=== PATIENT | male | born 1980 | race Caucasian/White ===

== ENCOUNTER 2022-06-14 08:15 | Outpatient (RCR) | payer BC, SELFPAY ==
--- OUTSIDE RECORDS SUMMARY | 2022-05-10 11:06 | XMS_ITS | Continuity of Care Document ---
:1980 Author Care Team Providers Name Role Phone MD Tristan Fishman Attending Physician MD Raul Cralton Primary Care Physician Chief Complaint and Reason for Visit Chief Complaint Post Op Complication Reason for Visit [id number] Allergies, Adverse Reactions, Alerts Allergen Type Severity Reaction Last Verified Status Updated Capecitabine Adverse Severe Chest February 25, Activ e Reaction pressure/car 2021 diac Social History Smoking Status Status Start Date End Date Date of Observat ion Never smoked tobacco February 25, 2022 8:41am (finding) Observation Status Observation Response Date of Response History provided by Patient September 16, 2018 5 :25pm Where do you live? Own home/apt September 16, 2018 5 :25pm With whom do you live? Spouse September 16 8 5:25pm Additional Data Assigned Sex Male Problems Active Problems Medical Problem Onset Date Status Chest pain Active Acute coronary syndrome Active Rectal adenocarcinoma 2017 Active Acute hyponatremia Active Gastroenteritis Active Hyponatremia Active Dehydration Active Postsurgical fever Active Proximal humerus fracture Active Neuroma of thoracic region Active Abdominal pain Active Medications Medication Status Dose Units Route Directions Qty Days Start End Ins tructions Date Date Acetaminophen Active 500-10 MG PO Every 6 100 NO MORE THAN (Tylenol 00 Hours as 4000 MG/ DAY Extra needed Strength) 500 Mg TAB Amlodipine Active 5 MG PO Daily Besylate Ascorbic Acid Active 500 MG PO Daily 100 (Vitamin C) 500 Mg TAB Cholecalcifer Active 5000 UNIT PO Daily 100 ol (Vitamin D) 5,000 Unit TAB Cyanocobalami Active Unknow PO n (B12) n Dose Unknown Strength CAP Fish Oil Active 1000 MG PO Daily take 2 kane ly (2000mg total) Gabapentin Active 300 MG PO Three Times 90 Novembe A Day r 2017 8:43am Hydromorphone Active 2 MG PO Q4-6H Prn 03 February Hcl 4th, (Dilaudid) 2 2020 Mg TAB 3:09pm Ibuprofen Active 600 MG PO Every 6 30 Hours as needed Lactobacillus Active 1 OR Daily (Probiotic) CAP Lorazepam Active 0.5-1 MG PO Every 4 June PRN Na usea/vomiting. Do not take at same time as sedating Hours as , medications including olanzapine. needed 2020 12:26pm Melatonin Active 10 MG PO Bedtime as 100 needed Multivitamins Active 1 TAB PO Daily 100 (Multivitamin /Minerals) TAB Olanzapine Active 5 MG PO Bedtime 09 April for ch emo nausea.Days 1-4 after chemo at bedtime. Use with Odt , caution w/ oth er sedating meds lorazepam, 2021 monae perez. 8:39am Ondansetron Active 8 MG PO Every 8 16 December Hcl (Zofran) Hours 3rd, 8 Mg TAB 2018 3:47pm Pantoprazole Active 40 MG PO Daily 30 Sodium Prochlorperaz Active 10 MG PO Three Times 16 July ine Maleate A Day as , needed 2020 12:23pm Tumeric Active 2000 MG Daily Amlodipine Disconti 5 MG PO Daily 16 May Besylate nued , (Norvasc) 5 2021 Mg TAB 8:31am Amlodipine Disconti 5 MG PO Daily February Besylate nued y , , 2021 2021 8:08am 2:08pm Amlodipine Disconti 2.5 MG PO Daily Novemberua Besylate nued 17, ry 2021 14th, 5:21pm 2021 8:08am Ascorbic Acid Disconti 500 MG PO Daily April (Vitamin C) nued , 500 Mg TAB 2019 9:02am Cholecalcifer Disconti 400 UNIT OR Daily April ol (Vitamin nued , D3) 400 Unit 2019 CAP 9:02am Cyanocobalami Disconti 1000 MCG PO Daily June n (Vitamin B nued , 12) 1,000 Mcg 2019 TAB 2:45pm Doxycycline Disconti 100 MG PO Twice Daily November ust Hyclate nued For 14 Days , , 2020 2020 3:33pm 1:26pm Doxycycline Disconti 100 MG PO Twice Daily November uar Hyclate nued For 14 Days , y 2020 11, 3:32pm 2020 3:33pm Doxycycline Disconti 100 MG PO Twice Daily r Hyclate nued For 14 Days y 2020 3:32pm Gabapentin Disconti 300 MG PO Three Times 90 Novemb nued A Day er 2017 8:43am Hydrocortison Disconti 1 % EX As Directed April ust Apply 2-3 times per day if needed to face. May mix with e (Topical) nued , , vanicrea m to prevent drying. (Hydrocortiso 2019 2020 ne) 1 % CRE 1:11pm 1:26pm Hydromorphone Disconti 2 MG PO Q4-6H Prn February Hcl nued , , (Dilaudid) 2 2021 2021 Mg TAB 11:10am 2:54pm Hydromorphone Disconti 2 MG PO Every 4 20 Novemapril Hcl nued Hours as r , , needed 2017 2019 11:27am 9:02am Hydromorphone Disconti 2 MG PO Every 4 Novemb Hcl nued Hours as er needed 2017 11:27a m Hydroxyzine Disconti 25 MG PO Every 6 60 November I f needed for itching/anxiety. May take 50mg at bedtime. Hcl nued Hours as , , May cause d rowsiness.Caution when taking with other (Hydroxyzine needed 2020 2021 sedati ng meds. Hydrochloride 9:19am 2:08pm ) 25 Mg TAB Hydroxyzine Disconti 25 MG PO Every 4-6 June If needed for itching or anxiety. May cause drowsiness. Hcl nued Hours as , y Caution whe n taking with other sedating meds. (Hydroxyzine needed 2019, Hydrochloride 4:17pm 2020 ) 25 Mg TAB 9:19am Hydroxyzine Disconti 25 MG PO Every 4-6 60 April If needed for itching or anxiety. May cause drowsiness. Hcl nued Hours as , 4th, Caution whe n taking with other sedating meds. (Hydroxyzine needed 2019 2019 Hydrochloride 1:11pm 4:17pm ) 25 Mg TAB Ibuprofen Disconti 600 MG PO Every 6 30 Octobe nued Hours as r needed 2017 6:55pm Loperamide Disconti 2-4 MG PO Twice A Day 100 Novemapril 4 mg every Hcl (Imodium) nued r , morn ing and 2 Mg CAP 2017 2019 either 2 or 4 8:43am 9:02am mg in the evening. Loperamide Disconti 2-4 MG PO Twice A Day 200 Decembapril MAX 16 MG/DAY Hcl nued as needed r , 2017 10:54am 9:02am Loperamide Disconti 2-4 MG PO Twice A Day 100 Novembe Nove mb 4 mg every Hcl (Imodium) nued r , er morni ng and 2 Mg CAP 2017, either 2 or 4 11:27am 2018 mg in the 8:43am evening. Loperamide Disconti 2 MG PO As Needed Octobe Hcl (Imodium) nued r 2 Mg CAP 2017 6:55pm Lorazepam Disconti 0.5-1 MG PO Every 4 50 June PRN nued Hours as , 16, Nausea/vomi ti needed 2019 2020 ng 4:22pm 12:23p m Lorazepam Disconti 0.5-1 MG PO Every 4 June PRN nued Hours as , Nausea/vomi ti needed 2019 ng 4:17pm Magic Disconti 5 ML PO Four Times 240 April SWISH AND SPIT Mouthwash nued Daily as , , MARCH COM POUND IF FIRST PRODUCT NOT COVERED (Lidocaine/Be needed 2019 2021 nadryl/Maalox 3:44pm 2:54pm ) (First-Mouthw prema Blm) Blm ESTEFANIA Marijuana Disconti As Needed June nued 2020 1:26pm Multivitamins Disconti 1 TAB PO Daily 100 Novemb (Multivitamin nued er /Minerals) 2017 11:17a m Naproxen Disconti 220 MG PO Twice A Day Novemb Sodium nued as needed er (Aleve) 220 2nd, Mg TAB 2017 11:27a m Naproxen Disconti 220 MG PO Twice A Day Octobe Sodium nued r (Aleve) 220 15th, Mg TAB 2018 6:55pm Nitroglycerin Disconti 0.4 MG SL Once WA N CHEST (Nitrostat) nued er PAIN 0.4 Mg SUB 2017 11:27a m Olanzapine Disconti 5 MG PO Bedtime March r chemo nausea.Days 1-4 after chemo at bedtime. Use with Odt nued r , , caution w/ o ther sedating meds lorazepam, 2020 2021 hydroxyzine, m elatonin. 2:11pm 8:39am Olanzapine Disconti 5 MG PO Bedtime June r chemo nausea.Days 1-4 after chemo at bedtime. Use with Odt nued , er caution w/ oth er sedating meds lorazepam, 2020, hydroxyzine, m elatonin. 1:37pm 2020 2:11pm Olanzapine Disconti 5 MG PO Bedtime January for chemo nausea.Days 1-4 after chemo at bedtime. Use with Odt nued , caution w/ oth er sedating meds lorazepam, 2020 2020 hydroxyzine, m elatonin. 6:51pm 1:37pm Olanzapine Disconti 5 MG PO Bedtime 4 January fo r chemo nausea.Days 1-4 after chemo at bedtime. Use with Odt nued y , , caution w/ o ther sedating meds lorazepam, 2020 2020 hydroxyzine, m elatonin. 3:21pm 6:51pm Olanzapine Disconti 5 MG PO Bedtime 3 June r chemo nausea. Take day 2,3,4 after chemo. Use with Odt nued , caution w/ oth er sedating meds, i.e. lorazepam, 2019, hydroxyzine, m elatonin. 1:05pm 2020 3:21pm Icssm-6-Jpsg Disconti 500 MG PO Daily April Ethyl Esters nued , (Fish Oil) 2019 500 Mg CAP 9:02am Omeprazole Disconti 40 MG PO Daily May nued , 2017 10:01am 12:09p m Ondansetron Disconti 8 MG PO Every 8 30 Januar Hcl (Zofran) nued Hours y 3rd, 8 Mg TAB 2019 3:47pm Ondansetron Disconti 8 MG PO Every 8 30 Novem Novemb Hcl nued Hours as r , er needed 2017, 11:53am 2018 8:04am Oxycodone Hcl Disconti 5-10 MG PO Every 4 30 Octobe nued Hours as r needed 2017 6:55pm Prochlorperaz Disconti 10 MG PO Every 4-6 February PRN ine Maleate nued Hours as , , Nause a/vomiti needed 2021 2021 ng 11:10am 2:54pm Prochlorperaz Disconti 10 MG PO Every 4-6 30 Octob e PRN ine Maleate nued Hours as r Nause a/vomiti needed , ng 2017 6:55pm Ranitidine Disconti 300 MG PO Bedtime 16 May Hcl nued 2019 9:02am Ranitidine Disconti 300 MG PO Bedtime as August b Hcl nued needed , er 2018 , 9:48am 2017 11:17a m Valacyclovir Disconti 1 GM PO Three Times May Hcl nued A Day , 2019 9:59am 8:20am Relevant Diagnostic Tests and/or Laboratory Data Laboratory Results Test Date/Time Result Interpretation Reference Result Comment Performing Range Site White Blood May 03, 2.94 5.00-10.00 [facility] Count [address] [facility] 8:40am [facility] [address] Red Blood May 03, 4.89 4.32-5.72 [facility] Count [address] [facility] 8:40am [facility] [address] Hemoglobin May 03, 14.0 13.5-17.5 [facility] [address] [facility] 8:40am [facility] [address] Hematocrit May 03, 41.5 38.8-50.0 [facility] [address] [facility] 8:40am [facility] [address] Mean May 03, 85 81-95 [facility] Corpuscular 2021 [address] [facility] Volume 8:40am [facility] [address] Mean May 03, 29 27-34 [facility] Corpuscular 2021 [address] [facility] Hemoglobin 8:40am [facility] [place] [address] Mean May 03, 34 32-36 [facility] Corpuscular 2021 [address] [facility] Hemoglobin 8:40am [place] [address] Concent Platelet Count May 03, 156 150-450 [facility] [address] [facility] 8:40am [place] [address] RDW May 03, 15.0 11.5-15.3 [facility] Coefficient of [address] [facility] Variation 8:40am [place] [address] Neutrophils May 03, 60.2 50.0-70.0 [facility] (%) (Auto) 2021 [address] [facility] 8:40am [facility] [address] Lymphocytes May 03, 22.8 25.0-45.0 [facility] (%) (Auto) 2021 [address] [facility] 8:40am [facility] [address] Monocytes (%) May 03, 12.9 0.00-11.0 [facility] Lab (Auto) [address] [facility] 8:40am [place] [address] Eosinophils May 03, 3.1 0.0-7.0 [facility] (%) (Auto) 2021 [address] [facility] 8:40am [place] [address] Basophils (%) May 03, 0.7 0.0-3.0 [facility] Lab (Auto) [address] [facility] 8:40am [place] [address] Immature May 03, 0.3 [facility] Granulocyte % [address] [facility] (Auto) 8:40am [facility] [address] Neutrophils # May 03, 1.77 1.70-7.00 [facility] Lab (Auto) [address] [facility] 8:40am [place] [address] Lymphocytes # May 03, 0.67 0.90-2.90 [facility] Lab (Auto) [address] [facility] 8:40am [place] [address] Monocytes # May 03, 0.38 0.30-0.90 [facility] (Auto) [address] [facility] 8:40am [place] [address] Eosinophils # May 03, 0.09 0.00-0.50 [facility] (Auto) [address] [facility] 8:40am [place] [address] Basophils # May 03, 0.02 0.00-0.20 [facility] (Auto) [address] [facility] 8:40am [place] [address] Immature May 03, 0.01 [facility] Granulocyte # [address] [facility] (Auto) 8:40am [facility] [address] Random Glucose May 03, 98 60-115 [facility] [address] [facility] 8:40am [place] [address] Blood Urea May 03, 16 5-24 [facility] Nitrogen [address] [facility] 8:40am [facility] [address] Creatinine May 03, 0.8 0.5-1.5 [facility] [address] [facility] 8:40am [place] [address] Estimated May 03, 122.934 [facility] Creatinine 2021 [address] [facility] Clearance 8:40am [facility] [address] Sodium Level May 03, 137 135-149 [facility] [address] [facility] 8:40am [facility] [address] Potassium May 03, 4.0 3.6-5.1 [facility] Level [address] [facility] 8:40am [facility] [address] Chloride Level May 03, 102 96-114 [facility] [address] [facility] 8:40am [facility] [address] Carbon Dioxide May 03, 27 20-32 [facility] Level [address] [facility] 8:40am [facility] [address] Calcium Level May 03, 9.4 8.4-10.6 [facility] [address] [facility] 8:40am [facility] [address] Total Protein May 03, 6.6 6.0-8.3 The use of [facility] 2021 Eltrombopag, a [address] [facility] 8:40am bone [place] [address] stimulant used to treat thrombocytopenia and aplastic anemia, interferes with this measurement of total protein. A 5% bias has been observed. Albumin May 03, 4.2 3.3-5.0 [facility] [address] [facility] 8:40am [facility] [address] Total May 03, 0.5 0.1-1.5 [facility] Bilirubin [address] [facility] 8:40am [facility] [address] Aspartate May 03, 41 12-35 [facility] Amino Transf [address] (AST/SGOT) 8:40am [facility] [address] Alanine May 03, 54 4-50 [facility] Aminotransfera [address] [facility] se (ALT/SGPT) 8:40am [place] [address] Alkaline May 03, 106 40-150 [facility] Phosphatase [address] 8:40am [facility] [address] Carcinoembryon May 03, 5.8 <=3.8 INTERPRETIVE A [facility] [employer] ic Antigen 2021 INFORMATION: [address] [facility] 8:40am Carcinoembryonic [facility] [address] AntigenThe Antoine CEA electrochemilumi nescent immunoassay was used.Results obtained with different test methods or kits cannot beused interchangeably. Measurement of CEA has been shown to beclinically relevant in the management of patients withcolorectal, breast, lung, prostatic, pancreatic, and ovariancarcinoma s. Smokers may have slightly elevated levels of CEA.The CEA assay value, regardless of level, should not beinterpreted as evidence for the presence or absence of malignantdisease and is not recommended for use as a screening procedureto detect the presence of cancer in the general population.Perfo rmed By: [employer] [place] [address] [id number] Director: Summer Hodges MD Advance Directives Advance Directive Response Recorded Date/Time Has patient completed a No February 25, 2022 8:41am Health Care Directive? Insurance Providers Guarantor Yesenia Tabares Address [address] [place] [address] Contact Info. Home Phone: CELL Payer Policy Id Coverage Id Subscriber's Subscriber Id Effective E xpiration Name Date Date Blue [id number] Yesenia Tabares [facility] [id number] Encounters Encounter Location(s) Arrival/Admit Date Discharge/Depart Date Provider(s) Registered [place] May 06, 2022 [facility] 7:11am Functional Status Observation Response Date Recorded Functional Status Independent September 18, 2018 1 2:09pm Mental Status Observation Response Date Recorded Cognitive Status Alert September 18, 2018 1 2:09pm Oriented September 18, 2018 1 2:09pm Plan of Treatment Future Tests Future scheduled test information is unavailable Pending Tests Pending diagnostic test information is unavailable Future Visits Future appointment information is unavailable Referrals to Other Providers Reason for Referral Start Provider Provider Contact Provider Address Referral Date Information Afsaneh Carlton Work Phone: JORDAN Bonds [facility]WE[facility] SHYAM PABLO [address] [place] [address] [phone] Future Procedures Future procedure information is unavailable Future Medications Future medication information is unavailable Patient Instructions See Additional Instructions Arm Fracture in Adults (ED) Hyponatremia (DC)
[2022-05-21 10:41] VITALS: BP 139/89; PULSE 120; RESP 16; TEMP 36.6; O2SAT 95
[2022-05-21 11:03] LABS: Basophils Percent Auto 1.1 % (0.0-3.0); Eosinophils Percent Auto 2.5 % (0.0-7.0); Hematocrit 42.6 % (37.0-53.0); Hemoglobin* 14.2 gm/dL (13.5-17.5); Lymphocytes Percent Auto 23.3 % (20-44); Mean Corpuscular HGB Conc 33 gm/dL (32-36); Mean Corpuscular Hemoglobin 28 pg (26-34); Mean Corpuscular Volume 85 fL (80-100); Monocytes Percent Auto 14.5 % (0.0-11.0); Neutrophils Percent Auto 58.6 % (42.0-72.0); Platelet Count* 143 K/uL (140-440); RDW Coefficient of Variation % 15.4 % (11.5-15.5); White Blood Count* 2.83 K/uL (4.50-11.00)
[2022-05-21 11:16] LABS: Albumin* 4.1 g/dL (3.3-5.0); Chloride* 106 mmol/L (96-114); Sodium* 138 mmol/L (135-149)
[2022-05-21 11:17] LABS: Potassium* 3.7 mmol/L (3.6-5.1)
[2022-05-21 11:19] LABS: Alkaline Phosphatase* 116 U/L (40-150); Aspartate Amino Transferase* 42 U/L (12-35); Bilirubin Total* 0.6 mg/dL (0.1-1.5); Carbon Dioxide* 27 mmol/L (20-32); Creatinine* 0.7 mg/dL (0.5-1.5); Estimated Glomerular Filt Rate 117.25; Total Protein* 6.4 g/dL (6.0-8.3)
[2022-05-21 11:20] LABS: Alanine Aminotransferase* 46 U/L (4-50); Blood Urea Nitrogen* 14 mg/dL (5-24); Calcium* 8.7 mg/dL (8.4-10.6); Glucose* 130 mg/dL (60-115)
[2022-05-21 11:35] VITALS: PULSE 105
[2022-05-21 13:47] LABS: Appearance Urine Clear (Clear); Bilirubin Urine Negative (Negative); Blood Urine Negative (Negative); Color Urine Yellow (Yellow); Glucose Urine Negative (Negative); Ketones Urine Negative (Negative); Leukocyte Esterase Urine Negative (Negative); Nitrite Urine Negative (Negative); Protein Urine Negative (Negative); Specific Gravity Urine 1.015 (1.000-1.030); Urobilinogen Urine 0.2 (0.2-1.0)
[2022-05-21] MEDS: FOSAPREPITANT 150 MG inj 150 MG in 0.9 % SODIUM CHLORIDE 250 ml 250 ML 510 MG IVPB (14:00)
[2022-05-21] MEDS: PALONOSETRON 0.25 MG/5 ML inj IV (14:00)
[2022-05-21] MEDS: dexAMETHasone 10 MG in 0.9 % SODIUM CHLORIDE 100 ml 100 ML 404 MG IVPB (14:28)
[2022-05-21 14:57] LABS: Slide Review Reflex No
[2022-05-21] MEDS: 0.9 % SODIUM CHLORIDE 250 ml IV (16:28)
[2022-05-21] MEDS: SODIUM CHLORIDE 0.9 % (FLUSH) 10 ML SYRINGE IVF (16:28)
[2022-05-21] MEDS: HEPARIN 500 UNIT/5 ML SYRINGE IVF (16:28)
--- NOTE | 2022-05-27 11:42 | ONC.NURNOTE ---
Authorization: User: Agatha Estes Date: 09/04/21 13:06 Type: Eligibility Determination Note... Request received from [facility] for prior authorization of Irinotecan [id number], Bevacizumab J9035, Aloxi J2469 and Emend J1453). Patient carries [facility] as primary insurance. Per Availity no prior authorization is required for Irinotecan, Bevacizumab,Aloxi and emend. Services are based on medical necessity. Ref #[id number]
--- NOTE | 2022-05-28 09:47 | ONC.NURNOTE ---
Dr. Fishman reviewed note asking about urine dipstick on patient since he is on Avastin and noted that dipstick not needed on this patient at all with treatment.
[2022-06-03 08:52] LABS: Basophils Percent Auto 0.6 % (0.0-3.0); Eosinophils Percent Auto 2.3 % (0.0-7.0); Hematocrit 40.3 % (37.0-53.0); Hemoglobin* 13.7 gm/dL (13.5-17.5); Immature Granulocytes Abs Auto 0.01 K/uL (0.00-0.30); Lymphocytes Percent Auto 17.3 % (20-44); Mean Corpuscular HGB Conc 34 gm/dL (32-36); Mean Corpuscular Hemoglobin 29 pg (26-34); Mean Corpuscular Volume 85 fL (80-100); Monocytes Percent Auto 11.4 % (0.0-11.0); Neutrophils Percent Auto 68.1 % (42.0-72.0); Platelet Count* 153 K/uL (140-440); RDW Coefficient of Variation % 15.7 % (11.5-15.5); Red Blood Count 4.73 m/uL (4.30-5.90); White Blood Count* 3.42 K/uL (4.50-11.00)
[2022-06-03 09:01] LABS: Slide Review Reflex No
--- NOTE | 2022-06-03 09:03 | ONC.NURNOTE ---
Per Dr. Fishman patient does not need urine dipstick for protein even if on Avastin
[2022-06-03 09:07] LABS: Chloride* 107 mmol/L (96-114); Sodium* 136 mmol/L (135-149)
[2022-06-03 09:08] LABS: Potassium* 3.7 mmol/L (3.6-5.1)
[2022-06-03 09:10] LABS: Alanine Aminotransferase* 43 U/L (4-50); Alkaline Phosphatase* 116 U/L (40-150); Aspartate Amino Transferase* 33 U/L (12-35); Bilirubin Total* 0.6 mg/dL (0.1-1.5); Blood Urea Nitrogen* 16 mg/dL (5-24); Carbon Dioxide* 24 mmol/L (20-32); Creatinine* 0.8 mg/dL (0.5-1.5); Est. Creatinine Clearance* 121.67; Estimated Glomerular Filt Rate 112 ml/min; Glucose* 129 mg/dL (60-115); Total Protein* 6.2 g/dL (6.0-8.3)
[2022-06-03 09:11] LABS: Calcium* 8.6 mg/dL (8.4-10.6)
[2022-06-03] MEDS: PALONOSETRON 0.25 MG/5 ML inj IV (10:39)
[2022-06-03] MEDS: dexAMETHasone 10 MG in 0.9 % SODIUM CHLORIDE 100 ml 100 ML 404 MG IVPB (10:39)
[2022-06-03] MEDS: FOSAPREPITANT 150 MG inj 150 MG in 0.9 % SODIUM CHLORIDE 250 ml 250 ML 510 MG IVPB (10:58)
[2022-06-03] MEDS: HEPARIN 500 UNIT/5 ML SYRINGE IVF (13:17)
[2022-06-03] MEDS: SODIUM CHLORIDE 0.9 % (FLUSH) 10 ML SYRINGE IVF (13:17)
[2022-06-14 08:51] LABS: Basophils Percent Auto 0.3 % (0.0-3.0); Eosinophils Percent Auto 2.4 % (0.0-7.0); Hematocrit 41.2 % (37.0-53.0); Hemoglobin* 13.7 gm/dL (13.5-17.5); Immature Granulocytes Abs Auto 0.01 K/uL (0.00-0.30); Lymphocytes Percent Auto 19.5 % (20-44); Mean Corpuscular HGB Conc 33 gm/dL (32-36); Mean Corpuscular Hemoglobin 29 pg (26-34); Mean Corpuscular Volume 86 fL (80-100); Monocytes Percent Auto 17.4 % (0.0-11.0); Neutrophils Percent Auto 60.1 % (42.0-72.0); Platelet Count* 166 K/uL (140-440); RDW Coefficient of Variation % 15.8 % (11.5-15.5); Red Blood Count 4.77 m/uL (4.30-5.90); White Blood Count* 2.87 K/uL (4.50-11.00)
[2022-06-14 09:04] LABS: Chloride* 106 mmol/L (96-114); Sodium* 138 mmol/L (135-149)
[2022-06-14 09:06] LABS: Slide Review Reflex No
[2022-06-14 09:07] LABS: Alanine Aminotransferase* 41 U/L (4-50); Alkaline Phosphatase* 117 U/L (40-150); Aspartate Amino Transferase* 32 U/L (12-35); Bilirubin Total* 0.5 mg/dL (0.1-1.5); Blood Urea Nitrogen* 19 mg/dL (5-24); Calcium* 8.8 mg/dL (8.4-10.6); Carbon Dioxide* 25 mmol/L (20-32); Creatinine* 0.8 mg/dL (0.5-1.5); Est. Creatinine Clearance* 121.67; Estimated Glomerular Filt Rate 112 ml/min; Glucose* 98 mg/dL (60-115); Total Protein* 6.9 g/dL (6.0-8.3)
== END 2022-06-16 23:59 | disposition home or self-care (01) ==
LOC: CCIC 08:15
PROVIDERS: PCP Family Medicine; Visit Provider Clinical Nurse Specialist
DX: C20 Malignant neoplasm of rectum (principal)
CPT/HCPCS: 36415; 36591; 80053; 81003; 82378; 85025; 96376; 96413; 96415; 96417; 99199; 99212; 99215; J0461; J1100; J1453; J1642; J2469; J7050; J7120; J9035; J9206

== ENCOUNTER 2022-12-02 10:16 | Outpatient (CLI) | payer BC, SELFPAY ==
--- NOTE | 2022-12-02 10:15 | CRLHL7_ITS ---
For Patients: As a result of the Century Cures Act, medical imaging exams and procedure reports are released immediately into your electronic medical record. You may view this report before your referring provider. If you have questions, please contact your health care provider. Indication: Assess for fracture with emphasis on the right great toe Technique: A total of three views of the right foot were acquired. Comparison: None Findings: Bones: Alignment is normal. No fractures or bone lesions. Joint spaces: Unremarkable. Soft tissues: Unremarkable. Impression: No acute fracture, dislocation or destructive process. No specific abnormality identified regarding the right 1st toe Dictated by Augusto Haro MD @ 12/02/2022 11:03:04 AM (Electronically Signed)
== END 2022-12-02 10:17 | disposition home or self-care (01) ==
LOC: RAD 10:16
PROVIDERS: PCP Family Medicine; Visit Provider Clinical Nurse Specialist
DX: M79.671 Pain in right foot (principal)
CPT/HCPCS: 73630

== ENCOUNTER 2022-12-12 09:30 | Outpatient (RCR) | payer BC, SELFPAY ==
[2022-06-17 08:19] VITALS: BP 145/95; PULSE 111; RESP 16; TEMP 36.4; O2SAT 97
[2022-06-17] MEDS: 0.9 % SODIUM CHLORIDE 250 ml IV (10:00)
[2022-06-17] MEDS: dexAMETHasone 10 MG in 0.9 % SODIUM CHLORIDE 100 ml 100 ML 404 MG IVPB (10:10)
[2022-06-17] MEDS: PALONOSETRON 0.25 MG/5 ML inj IV (10:12)
[2022-06-17] MEDS: FOSAPREPITANT 150 MG inj 150 MG in 0.9 % SODIUM CHLORIDE 250 ml 250 ML 510 MG IVPB (10:33)
[2022-06-17] MEDS: HEPARIN 500 UNIT/5 ML SYRINGE IVF (13:02)
[2022-06-17] MEDS: SODIUM CHLORIDE 0.9 % (FLUSH) 10 ML SYRINGE IVF (13:03)
--- NOTE | 2022-06-18 10:13 | ONC.NURNOTE ---
Per Luis this is his last chemo treatment of this cycle he has upcoming appts in [place] for imaging and follow up with Dr Fishman in the next 2 weeks
--- NOTE | 2022-06-18 10:14 | ONC.NURNOTE ---
Per BP monitoring yesterday discussion with Luis about his hypertension and risks with Avastin he has started Norvasc, with a recent dose increase to 5 mg/day Luis was informed that he will need to contact PCP about possible dose adjustments to better manage HTN info given on integrative approaches or relaxation breathing and pain interventions aromatherapy patch for calming given patient was engaged in relaxation music during his infusion
[2022-06-18 11:48] LABS: Carcinoembryonic Antigen 6.7 ng/mL (<=3.8)
--- NOTE | 2022-08-08 13:30 | URNOTE ---
Received request for Prior Authorization for Bevacizumab ([id number]), Fosaprepitant (J1453), Palonosetron (J2469), Irinotecan (J9206). Per Availity No Prior Authorization is required Ref# [id number].
--- NOTE | 2022-08-09 11:00 | ONC.PROVNOTE ---
[facility] Provider Note Clinic Note Narrative: Resuming Treatment Regimen: Avastin plus Irinotecan Mr. Tabares follows at our clinic with [facility] and was seen via teleheath visit 08/06/22 at [facility] by Dr. Giorgio Fishman for medical management of metastatic rectal carcinoma. Per Dr. Fishman, most recent PET CT impression for 1) overall progression with multiple new FDG avid metastatic bilateral pulmonary nodules as well as mediastinal, hilar, upper abdominal and retroperitoneal eduar metastases, 2) partial metabolic response of the radiated right 5th rib metastasis, and 3) no residual abnormal uptake post ablation of hepatic metastasis. After indepth discussion regarding goals of care, treatment versus treatment holiday, resuming current treatment regimen of avastin and irinotecan, versus switching to lonsurf plus avastin it was decided to resume treatment with avastin and irinotecan. Per Dr. Fishman's request, I have entered 4 additional cycles of avastin and irinotecan q 14 days, confirming doses and timing. Mr. Tabares will have lab work on 08/16/22, and treatment on 08/19/22. Mr. Tabares will see Dr. Fishman in follow up on 08/26/22.
[2022-08-16 08:28] LABS: Basophils Percent Auto 0.5 % (0.0-3.0); Eosinophils Percent Auto 4.4 % (0.0-7.0); Hemoglobin* 15.4 gm/dL (13.5-17.5); Lymphocytes Percent Auto 18.2 % (20-44); Mean Corpuscular HGB Conc 34 gm/dL (32-36); Mean Corpuscular Hemoglobin 29 pg (26-34); Mean Corpuscular Volume 87 fL (80-100); Monocytes Percent Auto 11.5 % (0.0-11.0); Neutrophils Percent Auto 65.4 % (42.0-72.0); Platelet Count* 158 K/uL (140-440); RDW Coefficient of Variation % 13.5 % (11.5-15.5); Red Blood Count 5.31 m/uL (4.30-5.90); White Blood Count* 4.07 K/uL (4.50-11.00)
[2022-08-16 08:29] LABS: Slide Review Reflex No
[2022-08-16 08:40] LABS: Albumin* 4.7 g/dL (3.3-5.0)
[2022-08-16 08:41] LABS: Chloride* 101 mmol/L (96-114); Potassium* 4.1 mmol/L (3.6-5.1); Sodium* 136 mmol/L (135-149)
[2022-08-16 08:43] LABS: Aspartate Amino Transferase* 31 U/L (12-35); Bilirubin Total* 0.8 mg/dL (0.1-1.5); Carbon Dioxide* 27 mmol/L (20-32); Estimated Glomerular Filt Rate 95 ml/min; Total Protein* 7.4 g/dL (6.0-8.3)
[2022-08-16 08:44] LABS: Alanine Aminotransferase* 33 U/L (4-50); Alkaline Phosphatase* 94 U/L (40-150); Blood Urea Nitrogen* 15 mg/dL (5-24); Calcium* 9.6 mg/dL (8.4-10.6); Glucose* 127 mg/dL (60-115)
[2022-08-16] MEDS: HEPARIN 500 UNIT/5 ML SYRINGE IVF (14:37)
[2022-08-16] MEDS: SODIUM CHLORIDE 0.9 % (FLUSH) 10 ML SYRINGE IVF (15:41)
[2022-08-19 08:25] VITALS: BP 140/93; PULSE 116; RESP 16; TEMP 35.9; O2SAT 96
[2022-08-19] MEDS: dexAMETHasone 10 MG in 0.9 % SODIUM CHLORIDE 100 ml 100 ML 404 MG IVPB (09:07)
[2022-08-19] MEDS: PALONOSETRON 0.25 MG/5 ML inj IV (09:07)
[2022-08-19] MEDS: FOSAPREPITANT 150 MG inj 150 MG in 0.9 % SODIUM CHLORIDE 250 ml 250 ML 510 MG IVPB (09:26)
--- NOTE | 2022-08-19 11:09 | ONC.NURNOTE ---
ok to treat without getting a urine protein. per Celine Chappell APRN and previous notes.
[2022-08-19] MEDS: 0.9 % SODIUM CHLORIDE 250 ml IV (15:55)
[2022-08-19] MEDS: HEPARIN 500 UNIT/5 ML SYRINGE IVF (15:55)
[2022-08-19] MEDS: SODIUM CHLORIDE 0.9 % (FLUSH) 10 ML SYRINGE IVF (15:55)
[2022-08-30 13:54] LABS: Basophils Percent Auto 0.5 % (0.0-3.0); Eosinophils Percent Auto 4.9 % (0.0-7.0); Hemoglobin* 14.4 gm/dL (13.5-17.5); Lymphocytes Percent Auto 24.7 % (20-44); Mean Corpuscular HGB Conc 34 gm/dL (32-36); Mean Corpuscular Hemoglobin 29 pg (26-34); Mean Corpuscular Volume 87 fL (80-100); Monocytes Percent Auto 12.5 % (0.0-11.0); Neutrophils Percent Auto 57.4 % (42.0-72.0); Platelet Count* 157 K/uL (140-440); RDW Coefficient of Variation % 13.8 % (11.5-15.5); Red Blood Count 4.96 m/uL (4.30-5.90); White Blood Count* 3.85 K/uL (4.50-11.00)
[2022-08-30 14:16] LABS: Slide Review Reflex No
[2022-08-30 14:37] LABS: Albumin* 4.4 g/dL (3.3-5.0); Chloride* 100 mmol/L (96-114); Potassium* 4.4 mmol/L (3.6-5.1); Sodium* 138 mmol/L (135-149)
[2022-08-30 14:40] LABS: Alanine Aminotransferase* 37 U/L (4-50); Alkaline Phosphatase* 105 U/L (40-150); Aspartate Amino Transferase* 31 U/L (12-35); Bilirubin Total* 0.5 mg/dL (0.1-1.5); Blood Urea Nitrogen* 14 mg/dL (5-24); Carbon Dioxide* 28 mmol/L (20-32); Creatinine* 0.9 mg/dL (0.5-1.5); Estimated Glomerular Filt Rate 108 ml/min; Glucose* 105 mg/dL (60-115)
[2022-08-30 14:41] LABS: Calcium* 9.5 mg/dL (8.4-10.6)
[2022-08-31 19:54] LABS: Carcinoembryonic Antigen 12.6 ng/mL (<=3.8)
[2022-09-02] MEDS: 0.9 % SODIUM CHLORIDE 250 ml IV (09:29)
[2022-09-02] MEDS: SODIUM CHLORIDE 0.9 % (FLUSH) 10 ML SYRINGE IVF (09:45)
[2022-09-02] MEDS: dexAMETHasone 10 MG in 0.9 % SODIUM CHLORIDE 100 ml 100 ML 404 MG IVPB (09:46)
[2022-09-02] MEDS: PALONOSETRON 0.25 MG/5 ML inj IV (09:47)
[2022-09-02] MEDS: FOSAPREPITANT 150 MG inj 150 MG in 0.9 % SODIUM CHLORIDE 250 ml 250 ML 510 MG IVPB (10:08)
[2022-09-13 08:42] LABS: Basophils Percent Auto 0.7 % (0.0-3.0); Eosinophils Percent Auto 5.4 % (0.0-7.0); Hematocrit 42.3 % (37.0-53.0); Hemoglobin* 14.3 gm/dL (13.5-17.5); Immature Granulocytes Abs Auto 0.01 K/uL (0.00-0.30); Lymphocytes Percent Auto 20.7 % (20-44); Mean Corpuscular HGB Conc 34 gm/dL (32-36); Mean Corpuscular Hemoglobin 29 pg (26-34); Mean Corpuscular Volume 85 fL (80-100); Monocytes Percent Auto 13.4 % (0.0-11.0); Neutrophils Percent Auto 59.5 % (42.0-72.0); Platelet Count* 163 K/uL (140-440); RDW Coefficient of Variation % 13.9 % (11.5-15.5); Red Blood Count 4.99 m/uL (4.30-5.90); White Blood Count* 2.99 K/uL (4.50-11.00)
[2022-09-13 08:51] LABS: Slide Review Reflex No
[2022-09-13 08:54] LABS: Albumin* 4.4 g/dL (3.3-5.0); Chloride* 102 mmol/L (96-114); Potassium* 4.2 mmol/L (3.6-5.1); Sodium* 139 mmol/L (135-149)
[2022-09-13 08:56] LABS: Creatinine* 0.9 mg/dL (0.5-1.5); Estimated Glomerular Filt Rate 108 ml/min
[2022-09-13 08:57] LABS: Alanine Aminotransferase* 49 U/L (4-50); Alkaline Phosphatase* 119 U/L (40-150); Aspartate Amino Transferase* 33 U/L (12-35); Bilirubin Total* 0.4 mg/dL (0.1-1.5); Blood Urea Nitrogen* 15 mg/dL (5-24); Carbon Dioxide* 27 mmol/L (20-32); Glucose* 97 mg/dL (60-115)
[2022-09-13 08:58] LABS: Calcium* 9.2 mg/dL (8.4-10.6)
[2022-09-16 08:29] VITALS: BP 138/90; PULSE 112; RESP 14; TEMP 36.1; O2SAT 95
[2022-09-16] MEDS: PALONOSETRON 0.25 MG/5 ML inj IV (09:00)
[2022-09-16] MEDS: dexAMETHasone 10 MG in 0.9 % SODIUM CHLORIDE 100 ml 100 ML 404 MG IVPB (09:00)
[2022-09-16] MEDS: FOSAPREPITANT 150 MG inj 150 MG in 0.9 % SODIUM CHLORIDE 250 ml 250 ML 510 MG IVPB (09:23)
[2022-09-16] MEDS: 0.9 % SODIUM CHLORIDE 250 ml IV (10:55)
[2022-09-16] MEDS: SODIUM CHLORIDE 0.9 % (FLUSH) 10 ML SYRINGE IVF (10:56)
[2022-09-16] MEDS: HEPARIN 500 UNIT/5 ML SYRINGE IVF (10:56)
[2022-09-27] MEDS: HEPARIN 500 UNIT/5 ML SYRINGE IVF (15:41)
[2022-09-27] MEDS: SODIUM CHLORIDE 0.9 % (FLUSH) 10 ML SYRINGE IVF (15:41)
[2022-09-27 15:51] LABS: Basophils Percent Auto 0.6 % (0.0-3.0); Eosinophils Percent Auto 4.6 % (0.0-7.0); Hematocrit 40.6 % (37.0-53.0); Hemoglobin* 13.6 gm/dL (13.5-17.5); Immature Granulocytes Pct Auto 0.3 %; Lymphocytes Percent Auto 20.8 % (20-44); Mean Corpuscular HGB Conc 34 gm/dL (32-36); Mean Corpuscular Hemoglobin 29 pg (26-34); Mean Corpuscular Volume 86 fL (80-100); Monocytes Percent Auto 15.1 % (0.0-11.0); Neutrophils Percent Auto 58.6 % (42.0-72.0); Platelet Count* 162 K/uL (140-440); RDW Coefficient of Variation % 14.6 % (11.5-15.5); Red Blood Count 4.74 m/uL (4.30-5.90); White Blood Count* 3.51 K/uL (4.50-11.00)
[2022-09-27 15:52] LABS: Slide Review Reflex No
[2022-09-27 16:07] LABS: Albumin* 4.2 g/dL (3.3-5.0); Chloride* 103 mmol/L (96-114); Potassium* 3.9 mmol/L (3.6-5.1); Sodium* 138 mmol/L (135-149)
[2022-09-27 16:09] LABS: Bilirubin Total* 0.4 mg/dL (0.1-1.5); Creatinine* 0.8 mg/dL (0.5-1.5); Estimated Glomerular Filt Rate 112 ml/min
[2022-09-27 16:10] LABS: Alanine Aminotransferase* 38 U/L (4-50); Alkaline Phosphatase* 107 U/L (40-150); Aspartate Amino Transferase* 29 U/L (12-35); Blood Urea Nitrogen* 14 mg/dL (5-24); Calcium* 9.1 mg/dL (8.4-10.6); Carbon Dioxide* 26 mmol/L (20-32); Glucose* 95 mg/dL (60-115); Total Protein* 6.7 g/dL (6.0-8.3)
[2022-09-29 22:06] LABS: Carcinoembryonic Antigen 16.4 ng/mL (<=3.8)
[2022-10-02 08:30] VITALS: BP 131/75; PULSE 110; RESP 16; TEMP 36.4; O2SAT 96
[2022-10-02] MEDS: 0.9 % SODIUM CHLORIDE 250 ml IV (08:39)
[2022-10-02] MEDS: SODIUM CHLORIDE 0.9 % (FLUSH) 10 ML SYRINGE IVF (08:40)
[2022-10-02] MEDS: HEPARIN 500 UNIT/5 ML SYRINGE IVF (08:40)
[2022-10-02] MEDS: PALONOSETRON 0.25 MG/5 ML inj IV (08:47)
[2022-10-02] MEDS: dexAMETHasone 10 MG in 0.9 % SODIUM CHLORIDE 100 ml 100 ML 404 MG IVPB (08:48)
[2022-10-02] MEDS: FOSAPREPITANT 150 MG inj 150 MG in 0.9 % SODIUM CHLORIDE 250 ml 250 ML 510 MG IVPB (09:09)
--- NOTE | 2022-11-26 13:08 | URNOTE ---
Received request for prior auth for Fluorouracil (J9190), Leucovorin (J0640), Oxaliplatin (J9263), bevacizumab (J9035), Emend (J1453), Granisetron (J1626), Palonosetron (J2469). Per Availity, prior auth is not needed for these medications. Ref #[id number]
[2022-12-02 08:26] LABS: Basophils Absolute Auto 0.02 K/uL (0.00-0.30); Basophils Percent Auto 0.4 % (0.0-3.0); Eosinophils Absolute Auto 0.24 K/uL (0.00-0.50); Eosinophils Percent Auto 4.9 % (0.0-7.0); Hematocrit 44.1 % (37.0-53.0); Hemoglobin* 14.8 gm/dL (13.5-17.5); Immature Granulocytes Abs Auto 0.01 K/uL (0.00-0.30); Immature Granulocytes Pct Auto 0.2 %; Mean Corpuscular HGB Conc 34 gm/dL (32-36); Mean Corpuscular Hemoglobin 29 pg (26-34); Mean Corpuscular Volume 86 fL (80-100); Monocytes Percent Auto 12.2 % (0.0-11.0); Neutrophils Absolute Auto 3.31 K/uL (1.7-7.0); Neutrophils Percent Auto 67.3 % (42.0-72.0); Platelet Count* 160 K/uL (140-440); RDW Coefficient of Variation % 13.6 % (11.5-15.5); Red Blood Count 5.15 m/uL (4.30-5.90); White Blood Count* 4.92 K/uL (4.50-11.00)
[2022-12-02 08:27] LABS: Slide Review Reflex No
[2022-12-02 08:36] VITALS: BP 127/85; PULSE 124; RESP 18; TEMP 36.6; O2SAT 95
[2022-12-02 08:40] LABS: Albumin* 4.3 g/dL (3.3-5.0); Chloride* 105 mmol/L (96-114); Sodium* 139 mmol/L (135-149)
[2022-12-02 08:41] LABS: Potassium* 3.8 mmol/L (3.6-5.1)
[2022-12-02 08:43] LABS: Alanine Aminotransferase* 38 U/L (4-50); Alkaline Phosphatase* 102 U/L (40-150); Aspartate Amino Transferase* 33 U/L (12-35); Bilirubin Total* 0.8 mg/dL (0.1-1.5); Blood Urea Nitrogen* 10 mg/dL (5-24); Carbon Dioxide* 28 mmol/L (20-32); Creatinine* 0.8 mg/dL (0.5-1.5); Estimated Glomerular Filt Rate 112 ml/min; Glucose* 114 mg/dL (60-115); Total Protein* 7.1 g/dL (6.0-8.3)
[2022-12-02 08:44] LABS: Bilirubin Direct* 0.2 mg/dL (0.0-0.5); Calcium* 9.2 mg/dL (8.4-10.6)
[2022-12-02] MEDS: dexAMETHasone 20 MG in 0.9 % SODIUM CHLORIDE 100 ml 100 ML 408 MG IVPB (11:45)
[2022-12-02] MEDS: PALONOSETRON 0.25 MG/5 ML inj IV (11:45)
[2022-12-02 12:00] VITALS: BP 145/90; PULSE 109
[2022-12-02 12:59] LABS: Appearance Urine Clear (Clear); Bilirubin Urine Negative (Negative); Blood Urine Negative (Negative); Color Urine Yellow (Yellow); Glucose Urine Negative (Negative); Ketones Urine Negative (Negative); Leukocyte Esterase Urine Negative (Negative); Nitrite Urine Negative (Negative); Protein Urine Negative (Negative); Urobilinogen Urine 0.2 (0.2-1.0)
[2022-12-02] MEDS: fluorouraciL 50 mg/ml INJ 860 MG IV (14:27)
[2022-12-02] MEDS: HEPARIN 500 UNIT/5 ML SYRINGE IVF (14:54)
[2022-12-02] MEDS: 0.9 % SODIUM CHLORIDE 250 ml IV (14:56)
[2022-12-02] MEDS: SODIUM CHLORIDE 0.9 % (FLUSH) 10 ML SYRINGE IVF (14:56)
--- NOTE | 2022-12-02 15:00 | ONC.NURNOTE ---
states anxious and feeling warm. states decrease appetite. states steady when up but last night missed a step , fell and lg toe hurts. toe bruised and swollen. Pt asked to see Celine Cooper APRN today. and also vented about his past experiences with treatments raman the radiation treatment discomfort. bp and heart rate a bit up. orthostatic wnl. waiting for a urine sample and xray of large toe results before ordering Avastin. Ok for treatment per Celine Cooper APRN. education and consent signed. dilma treatment well. and apts made.
--- NOTE | 2022-12-03 14:52 | ONC.NURNOTE ---
Called pt to follow up recieving oxaliplatin/5FU yesterday. Pt states he has vomited x3 since chemotherapy yesterday. Pt states the nausea comes on suddenly. Pt has been taking compazine as instructed. Pt states he hasn't been eating much at all. Instructed pt to try taking in small amounts of food and liquids at a time more frequently. Pt also encouraged to try taking Lorazepam in between the compazine. Pt instructed to call [facility] if nausea/vomiting continues or gets worse. Pt verbalized understanding of plan of care.
[2022-12-05 09:00] VITALS: BP 141/104; BP 141/98; PULSE 119; PULSE 121; RESP 16; TEMP 36.5; O2SAT 95
[2022-12-05] MEDS: 0.9 % SODIUM CHLORIDE 1000 ml 1,000 ML IV (09:12)
[2022-12-05] MEDS: ONDANSETRON 2 MG/ML inj 8 MG IVP (09:13)
[2022-12-05 09:44] LABS: Chloride* 104 mmol/L (96-114); Potassium* 3.8 mmol/L (3.6-5.1); Sodium* 137 mmol/L (135-149)
[2022-12-05 09:47] LABS: Blood Urea Nitrogen* 15 mg/dL (5-24); Carbon Dioxide* 27 mmol/L (20-32); Creatinine* 0.8 mg/dL (0.5-1.5); Estimated Glomerular Filt Rate 112 ml/min; Glucose* 103 mg/dL (60-115)
[2022-12-05 09:48] LABS: Calcium* 8.8 mg/dL (8.4-10.6)
[2022-12-05] MEDS: dexAMETHasone 10 MG in 0.9 % SODIUM CHLORIDE 100 ml 100 ML 404 MG IVPB (10:00)
[2022-12-05] MEDS: FOSAPREPITANT 150 MG inj 150 MG in 0.9 % SODIUM CHLORIDE 250 ml 250 ML 510 MG IVPB (10:42)
[2022-12-05] MEDS: 0.9 % SODIUM CHLORIDE 1000 ml 1,000 ML 500 ML IV (11:30)
--- NOTE | 2022-12-05 11:30 | ONC.NURNOTE ---
states nausea and vomiting . states feels clowdy and week. States cant keep anything down. orthostatics the same. heart rate 119. will recheck vs after 2nd liter and have pt ambulate to see if feeling better. Celine WHITE did see him today.
[2022-12-05] MEDS: HEPARIN 500 UNIT/5 ML SYRINGE IVF (11:44)
[2022-12-05] MEDS: SODIUM CHLORIDE 0.9 % (FLUSH) 10 ML SYRINGE IVF (11:44)
[2022-12-05 12:20] VITALS: BP 151/98; PULSE 112
--- NOTE | 2022-12-05 16:03 | ONC.NURNOTE ---
called Luis to let him know not to use dexam. in cough syrup with HTN. He request Celine WHITE call in a different cough syrup.
[2022-12-11 09:01] LABS: Chloride* 106 mmol/L (96-114)
[2022-12-11 09:02] LABS: Potassium* 3.8 mmol/L (3.6-5.1); Sodium* 138 mmol/L (135-149)
[2022-12-11 09:04] LABS: Aspartate Amino Transferase* 31 U/L (12-35); Bilirubin Total* 0.6 mg/dL (0.1-1.5); Carbon Dioxide* 27 mmol/L (20-32); Creatinine* 0.8 mg/dL (0.5-1.5); Estimated Glomerular Filt Rate 112 ml/min
[2022-12-11 09:05] LABS: Alanine Aminotransferase* 38 U/L (4-50); Alkaline Phosphatase* 98 U/L (40-150); Blood Urea Nitrogen* 12 mg/dL (5-24); Calcium* 8.9 mg/dL (8.4-10.6); Glucose* 100 mg/dL (60-115); Total Protein* 6.6 g/dL (6.0-8.3)
[2022-12-11 09:29] LABS: Basophils Percent Auto 0.2 % (0.0-3.0); Eosinophils Percent Auto 3.8 % (0.0-7.0); Hematocrit 42.1 % (37.0-53.0); Immature Granulocytes Pct Auto 0.2 %; Lymphocytes Percent Auto 14.8 % (20-44); Mean Corpuscular HGB Conc 33 gm/dL (32-36); Mean Corpuscular Hemoglobin 29 pg (26-34); Mean Corpuscular Volume 86 fL (80-100); Monocytes Percent Auto 14.8 % (0.0-11.0); Neutrophils Percent Auto 66.2 % (42.0-72.0); Platelet Count* 143 K/uL (140-440); RDW Coefficient of Variation % 13.8 % (11.5-15.5); Red Blood Count 4.89 m/uL (4.30-5.90); White Blood Count* 4.45 K/uL (4.50-11.00)
[2022-12-11 09:40] LABS: Slide Review Reflex No
[2022-12-11] MEDS: SODIUM CHLORIDE 0.9 % (FLUSH) 10 ML SYRINGE IVF (09:53)
[2022-12-11] MEDS: HEPARIN 500 UNIT/5 ML SYRINGE IVF (09:53)
[2022-12-12 09:40] VITALS: BP 137/90; PULSE 123; RESP 16; TEMP 35.4; O2SAT 96
[2022-12-12] MEDS: dexAMETHasone 10 MG in 0.9 % SODIUM CHLORIDE 100 ml 100 ML 404 MG IVPB (10:36)
[2022-12-12] MEDS: GRANISETRON 1 MG/ML inj IVP (10:38)
[2022-12-12] MEDS: SODIUM CHLORIDE 0.9 % (FLUSH) 10 ML SYRINGE IVF ×2 (10:57→12:40)
[2022-12-12] MEDS: 0.9 % SODIUM CHLORIDE 250 ml IV (10:58)
[2022-12-12] MEDS: fluorouraciL 50 mg/ml INJ 860 MG IV (12:31)
[2022-12-12] MEDS: HEPARIN 500 UNIT/5 ML SYRINGE IVF (12:40)
== END 2022-12-14 23:59 | disposition home or self-care (01) ==
LOC: CCIC 09:30
PROVIDERS: Internal Medicine Medical Oncology; PCP Family Medicine; Referring Provider Family Medicine; Visit Provider Clinical Nurse Specialist
DX: Z51.11 Encounter for antineoplastic chemotherapy (principal); C20 Malignant neoplasm of rectum
CPT/HCPCS: 36415; 36591; 36592; 80048; 80053; 81003; 82248; 82378; 85025; 96360; 96361; 96366; 96368; 96376; 96409; 96411; 96413; 96415; 96417; 99212; 99214; 99215; 99442; J0461; J0640; J1100; J1453; J1626; J1642; J2405; J2469; J7030; J7050; J7120; J9035; J9190; J9206; J9263

== ENCOUNTER 2023-06-16 09:00 | Outpatient (RCR) | payer BC, SELFPAY ==
[2022-12-23 08:42] LABS: Basophils Percent Auto 0.6 % (0.0-3.0); Eosinophils Percent Auto 2.5 % (0.0-7.0); Hematocrit 43.5 % (37.0-53.0); Hemoglobin* 14.5 gm/dL (13.5-17.5); Immature Granulocytes Pct Auto 0.3 %; Lymphocytes Percent Auto 18.6 % (20-44); Mean Corpuscular HGB Conc 33 gm/dL (32-36); Mean Corpuscular Hemoglobin 29 pg (26-34); Mean Corpuscular Volume 88 fL (80-100); Monocytes Percent Auto 17.2 % (0.0-11.0); Neutrophils Percent Auto 60.8 % (42.0-72.0); Platelet Count* 136 K/uL (140-440); RDW Coefficient of Variation % 14.6 % (11.5-15.5); Red Blood Count 4.95 m/uL (4.30-5.90); White Blood Count* 3.54 K/uL (4.50-11.00)
[2022-12-23 08:44] VITALS: BP 133/86; PULSE 116; RESP 16; TEMP 36.4; O2SAT 97
[2022-12-23 08:48] LABS: Slide Review Reflex No
[2022-12-23 08:55] LABS: Albumin* 4.2 g/dL (3.3-5.0); Chloride* 105 mmol/L (96-114)
[2022-12-23 08:56] LABS: Potassium* 4.5 mmol/L (3.6-5.1); Sodium* 137 mmol/L (135-149)
[2022-12-23 08:58] LABS: Aspartate Amino Transferase* 34 U/L (12-35); Bilirubin Total* 0.7 mg/dL (0.1-1.5); Blood Urea Nitrogen* 15 mg/dL (5-24); Carbon Dioxide* 28 mmol/L (20-32); Creatinine* 0.9 mg/dL (0.5-1.5); Estimated Glomerular Filt Rate 108 ml/min
[2022-12-23 08:59] LABS: Alanine Aminotransferase* 44 U/L (4-50); Alkaline Phosphatase* 97 U/L (40-150); Calcium* 9.5 mg/dL (8.4-10.6); Glucose* 108 mg/dL (60-115)
[2022-12-23 09:31] LABS: Appearance Urine Clear (Clear); Bilirubin Urine Negative (Negative); Blood Urine Negative (Negative); Color Urine Dark yellow (Yellow); Glucose Urine Negative (Negative); Ketones Urine Negative (Negative); Leukocyte Esterase Urine Negative (Negative); Nitrite Urine Negative (Negative); Protein Urine Negative (Negative); Specific Gravity Urine 1.025 (1.000-1.030); Urobilinogen Urine 0.2 (0.2-1.0)
[2022-12-23] MEDS: PALONOSETRON 0.25 MG/5 ML inj IV (11:27)
[2022-12-23] MEDS: dexAMETHasone 12 MG in 0.9 % SODIUM CHLORIDE 100 ml 100 ML 404.8 MG IVPB (11:28)
[2022-12-23] MEDS: FOSAPREPITANT 150 MG inj 150 MG in 0.9 % SODIUM CHLORIDE 250 ml 250 ML 510 MG IVPB (11:47)
[2022-12-23] MEDS: fluorouraciL 50 mg/ml INJ 860 MG IV (14:38)
[2022-12-23 21:06] LABS: Bilirubin Direct* 0.2 mg/dL (0.0-0.5)
[2022-12-27 10:21] LABS: Basophils Percent Auto 0.3 % (0.0-3.0); Eosinophils Percent Auto 1.9 % (0.0-7.0); Hematocrit 40.5 % (37.0-53.0); Hemoglobin* 13.8 gm/dL (13.5-17.5); Immature Granulocytes Pct Auto 0.3 %; Lymphocytes Percent Auto 19.7 % (20-44); Mean Corpuscular HGB Conc 34 gm/dL (32-36); Mean Corpuscular Hemoglobin 29 pg (26-34); Mean Corpuscular Volume 86 fL (80-100); Monocytes Percent Auto 13.3 % (0.0-11.0); Neutrophils Percent Auto 64.5 % (42.0-72.0); Platelet Count* 100 K/uL (140-440); RDW Coefficient of Variation % 13.9 % (11.5-15.5); Red Blood Count 4.73 m/uL (4.30-5.90); White Blood Count* 3.76 K/uL (4.50-11.00)
[2022-12-27 10:37] LABS: Slide Review Reflex No
[2022-12-27 10:40] LABS: Albumin* 3.8 g/dL (3.3-5.0); Chloride* 107 mmol/L (96-114); Sodium* 136 mmol/L (135-149)
[2022-12-27 10:41] LABS: Potassium* 3.7 mmol/L (3.6-5.1)
[2022-12-27 10:43] LABS: Alanine Aminotransferase* 40 U/L (4-50); Alkaline Phosphatase* 89 U/L (40-150); Aspartate Amino Transferase* 31 U/L (12-35); Bilirubin Total* 0.7 mg/dL (0.1-1.5); Blood Urea Nitrogen* 13 mg/dL (5-24); Calcium* 8.5 mg/dL (8.4-10.6); Carbon Dioxide* 24 mmol/L (20-32); Creatinine* 0.8 mg/dL (0.5-1.5); Estimated Glomerular Filt Rate 112 ml/min; Glucose* 133 mg/dL (60-115); Total Protein* 6.3 g/dL (6.0-8.3)
[2022-12-30] MEDS: dexAMETHasone 10 MG in 0.9 % SODIUM CHLORIDE 100 ml 100 ML 404 MG IVPB (09:35)
[2022-12-30] MEDS: GRANISETRON 1 MG/ML inj IVP (09:35)
[2022-12-30] MEDS: fluorouraciL 50 mg/ml INJ 860 MG IV (11:31)
[2023-01-06 10:35] LABS: Basophils Absolute Auto 0.02 K/uL (0.00-0.30); Basophils Percent Auto 0.3 % (0.0-3.0); Eosinophils Absolute Auto 0.11 K/uL (0.00-0.50); Eosinophils Percent Auto 1.9 % (0.0-7.0); Hematocrit 40.4 % (37.0-53.0); Hemoglobin* 13.9 gm/dL (13.5-17.5); Immature Granulocytes Abs Auto 0.02 K/uL (0.00-0.30); Immature Granulocytes Pct Auto 0.3 %; Lymphocytes Percent Auto 16.2 % (20-44); Mean Corpuscular HGB Conc 34 gm/dL (32-36); Mean Corpuscular Hemoglobin 30 pg (26-34); Mean Corpuscular Volume 86 fL (80-100); Monocytes Percent Auto 12.9 % (0.0-11.0); Neutrophils Absolute Auto 4.02 K/uL (1.7-7.0); Neutrophils Percent Auto 68.4 % (42.0-72.0); Platelet Count* 97 K/uL (140-440); RDW Coefficient of Variation % 15.2 % (11.5-15.5); Red Blood Count 4.68 m/uL (4.30-5.90); White Blood Count* 5.88 K/uL (4.50-11.00)
[2023-01-06 10:45] LABS: Slide Review Reflex No
[2023-01-06 10:50] LABS: Chloride* 107 mmol/L (96-114)
[2023-01-06 10:51] LABS: Potassium* 4.2 mmol/L (3.6-5.1); Sodium* 137 mmol/L (135-149)
[2023-01-06 10:53] LABS: Alkaline Phosphatase* 88 U/L (40-150); Aspartate Amino Transferase* 30 U/L (12-35); Bilirubin Total* 0.6 mg/dL (0.1-1.5); Blood Urea Nitrogen* 13 mg/dL (5-24); Carbon Dioxide* 26 mmol/L (20-32); Creatinine* 0.8 mg/dL (0.5-1.5); Estimated Glomerular Filt Rate 112 ml/min; Total Protein* 6.8 g/dL (6.0-8.3)
[2023-01-06 10:54] LABS: Alanine Aminotransferase* 40 U/L (4-50); Calcium* 9.1 mg/dL (8.4-10.6); Glucose* 91 mg/dL (60-115)
[2023-01-08 08:33] VITALS: BP 132/87; PULSE 125; RESP 16; TEMP 36; O2SAT 96
[2023-01-08 08:44] VITALS: BP 136/87; PULSE 125; RESP 16
--- NOTE | 2023-01-08 09:02 | ONC.NURNOTE ---
0825 discussed with Celine Cooper APRN. She is checking patients meds to see if conjunctivitis is a s/e. Pt states swollen under rt eye. x4 days. states crusty drainage in the am. states red yesturday. not red today. not itching. pt also had a pounding heart beat over weekend. denies today. heart rate 125 and rechecked still 125. awaiting UA from pt and ok to treat per Celine.
[2023-01-08 09:36] LABS: Appearance Urine Clear (Clear); Bilirubin Urine Negative (Negative); Blood Urine Negative (Negative); Color Urine Yellow (Yellow); Glucose Urine Negative (Negative); Ketones Urine Trace (Negative); Leukocyte Esterase Urine Negative (Negative); Nitrite Urine Negative (Negative); Protein Urine 2+ (Negative); Specific Gravity Urine >= 1.030 (1.000-1.030); Urobilinogen Urine 0.2 (0.2-1.0); pH Urine 5.5 (5.0-8.5)
[2023-01-08 09:49] LABS: Bacteria Urine Few; Mucus Urine Moderate; RBC Urine 0-2 (0-2); WBC Urine 0-2 (0-5)
[2023-01-08] MEDS: PALONOSETRON 0.25 MG/5 ML inj IV (10:51)
[2023-01-08] MEDS: dexAMETHasone 12 MG in 0.9 % SODIUM CHLORIDE 100 ml 100 ML 400 MG IVPB (10:51)
[2023-01-08] MEDS: FOSAPREPITANT 150 MG inj 150 MG in 0.9 % SODIUM CHLORIDE 250 ml 250 ML 510 MG IVPB (11:12)
--- NOTE | 2023-01-08 12:46 | ONC.NURNOTE ---
Dr. Fishman aware of Alexa urine is 2+ protein. ok to treat with Avastin. also sent home instructions and a 24hr urine for protein.
[2023-01-08] MEDS: fluorouraciL 50 mg/ml INJ 860 MG IV (13:47)
[2023-01-08 14:35] LABS: Bilirubin Direct* 0.2 mg/dL (0.0-0.5)
[2023-01-10 13:38] LABS: Creatinine Urine 160.9 mg/dL; Total Protein Urine 6 mg/dL
[2023-01-10 13:44] LABS: Collection Time Urine 24 Hours
[2023-01-10 13:45] LABS: Total Protein 24 Hour Urine 63 mg/dL; Total Volume 24 Hour Urine 1050 ml; Urine Creatinine mg/24 Hour 0 mg/Day
--- NOTE | 2023-01-13 09:00 | ONC.NURNOTE ---
Patient here for labs for chemotherapy tomorrow. Patient notes that he has been having bloody noses for the last couple of months. No difficulty stopping, but many of them. Will see what platelets are today, but informed that with dry weather this can be common. Instructed to try either a saline spray into the nose, or a humidifier at bedside - being sure to keep the machine clean. Patient will return tomorrow for chemotherapy.
[2023-01-13 09:09] LABS: Basophils Percent Auto 0.3 % (0.0-3.0); Eosinophils Percent Auto 1.4 % (0.0-7.0); Hematocrit 42.6 % (37.0-53.0); Hemoglobin* 14.4 gm/dL (13.5-17.5); Lymphocytes Percent Auto 16.6 % (20-44); Mean Corpuscular HGB Conc 34 gm/dL (32-36); Mean Corpuscular Hemoglobin 29 pg (26-34); Mean Corpuscular Volume 86 fL (80-100); Monocytes Percent Auto 12.4 % (0.0-11.0); Neutrophils Percent Auto 69.3 % (42.0-72.0); Platelet Count* 103 K/uL (140-440); RDW Coefficient of Variation % 15.9 % (11.5-15.5); Red Blood Count 4.93 m/uL (4.30-5.90); White Blood Count* 3.62 K/uL (4.50-11.00)
[2023-01-13 09:11] LABS: Slide Review Reflex No
[2023-01-13] MEDS: SODIUM CHLORIDE 0.9 % (FLUSH) 10 ML SYRINGE IVF (09:14)
[2023-01-13] MEDS: HEPARIN 500 UNIT/5 ML SYRINGE IVF (09:14)
[2023-01-13 09:20] LABS: Albumin* 4.1 g/dL (3.3-5.0); Chloride* 104 mmol/L (96-114); Potassium* 4.2 mmol/L (3.6-5.1); Sodium* 136 mmol/L (135-149)
[2023-01-13 09:22] LABS: Creatinine* 0.8 mg/dL (0.5-1.5); Estimated Glomerular Filt Rate 112 ml/min
[2023-01-13 09:23] LABS: Alanine Aminotransferase* 44 U/L (4-50); Alkaline Phosphatase* 96 U/L (40-150); Aspartate Amino Transferase* 35 U/L (12-35); Bilirubin Total* 0.9 mg/dL (0.1-1.5); Blood Urea Nitrogen* 17 mg/dL (5-24); Carbon Dioxide* 24 mmol/L (20-32); Glucose* 140 mg/dL (60-115); Total Protein* 6.8 g/dL (6.0-8.3)
[2023-01-13 09:24] LABS: Calcium* 8.7 mg/dL (8.4-10.6)
[2023-01-14] MEDS: dexAMETHasone 10 MG in 0.9 % SODIUM CHLORIDE 100 ml 100 ML 404 MG IVPB (08:51)
[2023-01-14] MEDS: GRANISETRON 1 MG/ML inj IVP (08:51)
[2023-01-14 08:53] VITALS: BP 125/86; PULSE 127; RESP 16; TEMP 35.5
--- NOTE | 2023-01-14 10:24 | ONC.NURNOTE ---
Luis states when ever he blows his nose there is blood on the tissue. suggested a humidifier at his bedside at night. Luis states last week he was gassy which ended with diarrhea this friday. which has resolved. he does daily enemas to prevent constipation. states fingers and one toe tingle at times. no increase in. Luis had a red tongue at the tip which tingles with discomfort. enc salt water or soda in water to swish and spit. Luis expressed how cancer is not fair or easy at any age. states tired. did express how excited he is to take a trip to [place] nest january. states the [employer] is helping him with his bucket list. states missed parents out east and may travel with and son. states a couple of rapid heart episodes where he had to sit down due to some sob and dizziness. states heart rate 120 at rest. ekg from clinic scanned. 102 sinus tach. when listening to heart rate regular s1s2 no murmurs. pulse rate radial is regular and strong. if mouth gets worse, rapid heart rates increase or worse. nosebleeds worsen or questions to let us know.
[2023-01-14] MEDS: fluorouraciL 50 mg/ml INJ 860 MG IV (10:55)
[2023-01-17] MEDS: SODIUM CHLORIDE 0.9 % (FLUSH) 10 ML SYRINGE IVF (08:30)
[2023-01-17 08:38] LABS: Basophils Percent Auto 0.3 % (0.0-3.0); Eosinophils Percent Auto 3.1 % (0.0-7.0); Hematocrit 44.2 % (37.0-53.0); Mean Corpuscular HGB Conc 34 gm/dL (32-36); Mean Corpuscular Hemoglobin 29 pg (26-34); Mean Corpuscular Volume 87 fL (80-100); Monocytes Percent Auto 17.2 % (0.0-11.0); Neutrophils Percent Auto 58.4 % (42.0-72.0); Platelet Count* 125 K/uL (140-440); RDW Coefficient of Variation % 16.5 % (11.5-15.5)
[2023-01-17] MEDS: HEPARIN 500 UNIT/5 ML SYRINGE IVF (08:40)
[2023-01-17 08:44] LABS: Slide Review Reflex No
[2023-01-17 08:50] LABS: Albumin* 4.2 g/dL (3.3-5.0); Chloride* 103 mmol/L (96-114); Potassium* 4.2 mmol/L (3.6-5.1); Sodium* 134 mmol/L (135-149)
[2023-01-17 08:52] LABS: Estimated Glomerular Filt Rate 95 ml/min
[2023-01-17 08:53] LABS: Alanine Aminotransferase* 55 U/L (4-50); Alkaline Phosphatase* 97 U/L (40-150); Aspartate Amino Transferase* 38 U/L (12-35); Blood Urea Nitrogen* 19 mg/dL (5-24); Calcium* 9.4 mg/dL (8.4-10.6); Carbon Dioxide* 25 mmol/L (20-32); Glucose* 126 mg/dL (60-115); Total Protein* 7.1 g/dL (6.0-8.3)
[2023-01-20 08:27] LABS: Appearance Urine Clear (Clear); Bilirubin Urine Negative (Negative); Blood Urine Negative (Negative); Color Urine Dark yellow (Yellow); Glucose Urine Negative (Negative); Ketones Urine Negative (Negative); Leukocyte Esterase Urine Negative (Negative); Nitrite Urine Negative (Negative); Protein Urine 2+ (Negative); Specific Gravity Urine 1.025 (1.000-1.030); Urobilinogen Urine 0.2 (0.2-1.0); pH Urine 5.5 (5.0-8.5)
[2023-01-20 08:30] VITALS: BP 131/99; PULSE 130; RESP 16; TEMP 35.7
[2023-01-20 08:37] LABS: Mucus Urine Few; RBC Urine 0-2 (0-2); Squamous Epithelial Cell Urine Few (None-Few); WBC Urine 0-2 (0-5)
[2023-01-20 09:30] VITALS: BP 127/90; PULSE 120
[2023-01-20 09:37] LABS: Bilirubin Direct* 0.2 mg/dL (0.0-0.5)
[2023-01-20] MEDS: PALONOSETRON 0.25 MG/5 ML inj IV (09:48)
[2023-01-20] MEDS: dexAMETHasone 12 MG in 0.9 % SODIUM CHLORIDE 100 ml 100 ML 404 MG IVPB (09:48)
[2023-01-20] MEDS: FOSAPREPITANT 150 MG inj 150 MG in 0.9 % SODIUM CHLORIDE 250 ml 250 ML 510 MG IVPB (10:09)
[2023-01-20] MEDS: fluorouraciL 50 mg/ml INJ 860 MG IV (12:58)
[2023-01-20] MEDS: HEPARIN 500 UNIT/5 ML SYRINGE IVF (15:05)
[2023-01-20] MEDS: SODIUM CHLORIDE 0.9 % (FLUSH) 10 ML SYRINGE IVF (15:05)
--- NOTE | 2023-01-20 15:22 | ONC.NURNOTE ---
sty starting to form under Alexa rt eye. red on tip of héctor as last week. states no sores in mouth. dilma po well. denies anymore episodes of rapid heart rate, dizzy or sob. ok for treatment per Celine WHITE and Dr. Fishman. pt to have a 24 hr urine every 3 months prior to his Avastin.
[2023-01-24 08:30] VITALS: BP 136/90; PULSE 120; RESP 18; TEMP 36.1; O2SAT 96
[2023-01-24 08:31] VITALS: BP 128/87; PULSE 121
[2023-01-24 08:47] LABS: Basophils Percent Auto 0.6 % (0.0-3.0); Eosinophils Percent Auto 5.3 % (0.0-7.0); Hematocrit 42.6 % (37.0-53.0); Hemoglobin* 14.6 gm/dL (13.5-17.5); Immature Granulocytes Pct Auto 0.9 %; Lymphocytes Percent Auto 25.2 % (20-44); Mean Corpuscular HGB Conc 34 gm/dL (32-36); Mean Corpuscular Hemoglobin 30 pg (26-34); Mean Corpuscular Volume 86 fL (80-100); Monocytes Percent Auto 15.2 % (0.0-11.0); Neutrophils Percent Auto 52.8 % (42.0-72.0); Platelet Count* 107 K/uL (140-440); Red Blood Count 4.95 m/uL (4.30-5.90); White Blood Count* 3.41 K/uL (4.50-11.00)
[2023-01-24 08:57] LABS: Slide Review Reflex No
[2023-01-24 09:04] LABS: Albumin* 4.1 g/dL (3.3-5.0)
[2023-01-24 09:05] LABS: Chloride* 105 mmol/L (96-114); Potassium* 3.9 mmol/L (3.6-5.1); Sodium* 135 mmol/L (135-149)
[2023-01-24 09:07] LABS: Bilirubin Total* 1.1 mg/dL (0.1-1.5); Carbon Dioxide* 24 mmol/L (20-32); Creatinine* 0.9 mg/dL (0.5-1.5); Estimated Glomerular Filt Rate 108 ml/min
[2023-01-24 09:08] LABS: Alanine Aminotransferase* 40 U/L (4-50); Alkaline Phosphatase* 81 U/L (40-150); Aspartate Amino Transferase* 31 U/L (12-35); Blood Urea Nitrogen* 16 mg/dL (5-24); Glucose* 103 mg/dL (60-115); Total Protein* 6.8 g/dL (6.0-8.3)
[2023-01-24] MEDS: 0.9 % SODIUM CHLORIDE 1000 ml 1,000 ML IV ×2 (09:50→10:50)
[2023-01-24] MEDS: HEPARIN 500 UNIT/5 ML SYRINGE IVF (11:24)
[2023-01-24] MEDS: SODIUM CHLORIDE 0.9 % (FLUSH) 10 ML SYRINGE IVF (11:24)
--- NOTE | 2023-01-24 12:50 | ONC.NURNOTE ---
Luis arrived for blood draw stating diarrhea last 48 hrs. states no dizziness, rapid heart rate or lightheadedness. states legs feel weak. did take the stairs. enc elevater use till feeling stronger. orthostatics wnl. altho heart rate 120. Luis requests 2l NS. ok with Celine Chappell APRN. dilma well. lung sounds clear before and after infusion. Luis still has a red tongue tip. no open areas and a sty on his lower rt eye lid. no drainage from eye. labs today wnl.
[2023-01-27] MEDS: 0.9 % SODIUM CHLORIDE 1000 ml 1,000 ML IV ×2 (09:45→11:02)
[2023-01-27] MEDS: HEPARIN 500 UNIT/5 ML SYRINGE IVF (10:27)
[2023-01-27] MEDS: SODIUM CHLORIDE 0.9 % (FLUSH) 10 ML SYRINGE IVF (10:27)
--- NOTE | 2023-01-27 15:10 | ONC.NURNOTE ---
Luis having 2L fluids today. He did not receive treatment today..Luis is having a scan february 03. he and his family are going on vacation february 05 thru . Luis will be having a tele visit with Dr. Fishman on the with a plan of care. Celine Cooper APRN aware and will consult with Dr. Fishman as to the plan for infusion fridayfebruary 17.
[2023-02-14 12:35] LABS: Basophils Percent Auto 0.3 % (0.0-3.0); Eosinophils Percent Auto 2.6 % (0.0-7.0); Hematocrit 42.7 % (37.0-53.0); Hemoglobin* 14.2 gm/dL (13.5-17.5); Lymphocytes Percent Auto 24.4 % (20-44); Mean Corpuscular HGB Conc 33 gm/dL (32-36); Mean Corpuscular Hemoglobin 30 pg (26-34); Mean Corpuscular Volume 89 fL (80-100); Monocytes Percent Auto 17.5 % (0.0-11.0); Neutrophils Percent Auto 55.2 % (42.0-72.0); Platelet Count* 119 K/uL (140-440); White Blood Count* 3.08 K/uL (4.50-11.00)
[2023-02-14 12:41] LABS: Slide Review Reflex No
[2023-02-14 12:59] LABS: Albumin* 4.2 g/dL (3.3-5.0); Chloride* 106 mmol/L (96-114); Potassium* 4.1 mmol/L (3.6-5.1); Sodium* 138 mmol/L (135-149)
[2023-02-14 13:02] LABS: Alanine Aminotransferase* 41 U/L (4-50); Alkaline Phosphatase* 104 U/L (40-150); Aspartate Amino Transferase* 36 U/L (12-35); Blood Urea Nitrogen* 13 mg/dL (5-24); Carbon Dioxide* 27 mmol/L (20-32); Creatinine* 0.9 mg/dL (0.5-1.5); Estimated Glomerular Filt Rate 108 ml/min; Glucose* 99 mg/dL (60-115); Total Protein* 6.9 g/dL (6.0-8.3)
[2023-02-14 13:03] LABS: Calcium* 9.1 mg/dL (8.4-10.6)
[2023-02-14] MEDS: SODIUM CHLORIDE 0.9 % (FLUSH) 10 ML SYRINGE IVF (13:16)
[2023-02-14] MEDS: HEPARIN 500 UNIT/5 ML SYRINGE IVF (13:16)
[2023-02-17 08:25] VITALS: BP 134/88; PULSE 117; RESP 16; TEMP 35.8; O2SAT 95
[2023-02-17 09:12] LABS: Bilirubin Direct* 0.3 mg/dL (0.0-0.5)
[2023-02-17 09:32] LABS: Bilirubin Total* 0.9 mg/dL (0.1-1.5)
[2023-02-17] MEDS: PALONOSETRON 0.25 MG/5 ML inj IV (10:03)
[2023-02-17] MEDS: dexAMETHasone 12 MG in 0.9 % SODIUM CHLORIDE 100 ml 100 ML 420 MG IVPB (10:04)
[2023-02-17] MEDS: FOSAPREPITANT 150 MG inj 150 MG in 0.9 % SODIUM CHLORIDE 250 ml 250 ML 780 MG IVPB (10:22)
[2023-02-17] MEDS: fluorouraciL 50 mg/ml INJ 860 MG IV (12:59)
[2023-02-21 09:10] LABS: Basophils Percent Auto 0.3 % (0.0-3.0); Hematocrit 42.6 % (37.0-53.0); Hemoglobin* 14.2 gm/dL (13.5-17.5); Mean Corpuscular HGB Conc 33 gm/dL (32-36); Mean Corpuscular Hemoglobin 30 pg (26-34); Mean Corpuscular Volume 89 fL (80-100); Monocytes Percent Auto 12.5 % (0.0-11.0); Neutrophils Percent Auto 65.2 % (42.0-72.0); Platelet Count* 108 K/uL (140-440); RDW Coefficient of Variation % 16.9 % (11.5-15.5); Red Blood Count 4.78 m/uL (4.30-5.90); White Blood Count* 3.45 K/uL (4.50-11.00)
[2023-02-21 09:15] LABS: Slide Review Reflex No
[2023-02-21 09:21] LABS: Chloride* 106 mmol/L (96-114); Sodium* 136 mmol/L (135-149)
[2023-02-21 09:24] LABS: Alanine Aminotransferase* 53 U/L (4-50); Alkaline Phosphatase* 92 U/L (40-150); Aspartate Amino Transferase* 41 U/L (12-35); Bilirubin Total* 0.6 mg/dL (0.1-1.5); Blood Urea Nitrogen* 16 mg/dL (5-24); Calcium* 8.6 mg/dL (8.4-10.6); Carbon Dioxide* 24 mmol/L (20-32); Creatinine* 0.7 mg/dL (0.5-1.5); Estimated Glomerular Filt Rate 117 ml/min; Glucose* 164 mg/dL (60-115); Total Protein* 6.6 g/dL (6.0-8.3)
[2023-02-24] MEDS: dexAMETHasone 10 MG in 0.9 % SODIUM CHLORIDE 100 ml 100 ML 420 MG IVPB (11:20)
[2023-02-24] MEDS: GRANISETRON 1 MG/ML inj IVP (11:20)
[2023-02-24] MEDS: fluorouraciL 50 mg/ml INJ 860 MG IVP (13:19)
[2023-02-28 09:01] LABS: Basophils Absolute Auto 0.01 K/uL (0.00-0.30); Basophils Percent Auto 0.2 % (0.0-3.0); Eosinophils Absolute Auto 0.05 K/uL (0.00-0.50); Eosinophils Percent Auto 0.8 % (0.0-7.0); Hematocrit 39.3 % (37.0-53.0); Hemoglobin* 13.3 gm/dL (13.5-17.5); Immature Granulocytes Abs Auto 0.01 K/uL (0.00-0.30); Immature Granulocytes Pct Auto 0.2 %; Lymphocytes Percent Auto 8.5 % (20-44); Mean Corpuscular HGB Conc 34 gm/dL (32-36); Mean Corpuscular Hemoglobin 30 pg (26-34); Mean Corpuscular Volume 89 fL (80-100); Monocytes Percent Auto 12.4 % (0.0-11.0); Neutrophils Percent Auto 77.9 % (42.0-72.0); Platelet Count* 110 K/uL (140-440); RDW Coefficient of Variation % 17.1 % (11.5-15.5); Red Blood Count 4.41 m/uL (4.30-5.90); White Blood Count* 6.59 K/uL (4.50-11.00)
[2023-02-28 09:07] LABS: Slide Review Reflex No
[2023-02-28 09:13] LABS: Chloride* 104 mmol/L (96-114)
[2023-02-28 09:14] LABS: Sodium* 136 mmol/L (135-149)
[2023-02-28 09:15] LABS: Potassium* 4.1 mmol/L (3.6-5.1)
[2023-02-28 09:17] LABS: Alanine Aminotransferase* 55 U/L (4-50); Alkaline Phosphatase* 93 U/L (40-150); Aspartate Amino Transferase* 33 U/L (12-35); Bilirubin Total* 0.8 mg/dL (0.1-1.5); Blood Urea Nitrogen* 15 mg/dL (5-24); Carbon Dioxide* 21 mmol/L (20-32); Creatinine* 0.7 mg/dL (0.5-1.5); Estimated Glomerular Filt Rate 117 ml/min; Total Protein* 6.5 g/dL (6.0-8.3)
[2023-02-28 09:18] LABS: Calcium* 8.5 mg/dL (8.4-10.6); Glucose* 104 mg/dL (60-115)
--- NOTE | 2023-02-28 13:48 | ONC.NURNOTE ---
Pt here for port blood draw at 0845 prior to chemotherapy on 03/03/23. Pt c/o fever x3 days, sore throat, body aches. Pt states he has an appt at 1400 at [facility] with primary care to get tested for covid/flu. Supervisor [employer] explained to pt he should call on Friday if he still feels unwell. Pt verbalized understanding of instructions.
[2023-03-03 08:20] VITALS: BP 128/87; PULSE 116; RESP 16; TEMP 35.8; O2SAT 97
[2023-03-03] MEDS: PALONOSETRON 0.25 MG/5 ML inj IV (09:36)
[2023-03-03] MEDS: dexAMETHasone 12 MG in 0.9 % SODIUM CHLORIDE 100 ml 100 ML 400 MG IVPB (09:36)
[2023-03-03] MEDS: FOSAPREPITANT 150 MG inj 150 MG in 0.9 % SODIUM CHLORIDE 250 ml 250 ML 510 MG IVPB (09:54)
[2023-03-03] MEDS: 0.9 % SODIUM CHLORIDE 250 ml IV (10:24)
[2023-03-03] MEDS: 5 % DEXTROSE 250 ML IV (10:24)
[2023-03-03] MEDS: fluorouraciL 50 mg/ml INJ 860 MG IVP (12:29)
[2023-03-03 16:29] LABS: Bilirubin Direct* 0.3 mg/dL (0.0-0.5)
[2023-03-07 09:12] LABS: Eosinophils Percent Auto 4.7 % (0.0-7.0); Hematocrit 39.3 % (37.0-53.0); Hemoglobin* 13.6 gm/dL (13.5-17.5); Lymphocytes Percent Auto 26.9 % (20-44); Mean Corpuscular HGB Conc 35 gm/dL (32-36); Mean Corpuscular Hemoglobin 30 pg (26-34); Mean Corpuscular Volume 88 fL (80-100); Monocytes Percent Auto 12.1 % (0.0-11.0); Neutrophils Percent Auto 56.3 % (42.0-72.0); Platelet Count* 121 K/uL (140-440); RDW Coefficient of Variation % 17.2 % (11.5-15.5); Red Blood Count 4.47 m/uL (4.30-5.90); White Blood Count* 3.38 K/uL (4.50-11.00)
[2023-03-07 09:24] LABS: Albumin* 3.9 g/dL (3.3-5.0); Slide Review Reflex No
[2023-03-07 09:25] LABS: Chloride* 104 mmol/L (96-114); Potassium* 4.1 mmol/L (3.6-5.1); Sodium* 134 mmol/L (135-149)
[2023-03-07 09:27] LABS: Aspartate Amino Transferase* 32 U/L (12-35); Bilirubin Total* 0.7 mg/dL (0.1-1.5); Carbon Dioxide* 25 mmol/L (20-32); Creatinine* 0.7 mg/dL (0.5-1.5); Estimated Glomerular Filt Rate 117 ml/min
[2023-03-07 09:28] LABS: Alanine Aminotransferase* 37 U/L (4-50); Alkaline Phosphatase* 89 U/L (40-150); Blood Urea Nitrogen* 11 mg/dL (5-24); Calcium* 8.6 mg/dL (8.4-10.6); Glucose* 120 mg/dL (60-115); Total Protein* 6.6 g/dL (6.0-8.3)
[2023-03-10 08:12] VITALS: BP 151/98; PULSE 123; RESP 16; TEMP 36.5; O2SAT 96
[2023-03-10] MEDS: GRANISETRON 1 MG/ML inj IVP (08:50)
[2023-03-10] MEDS: dexAMETHasone 10 MG in 0.9 % SODIUM CHLORIDE 100 ml 100 ML 420 MG IVPB (08:50)
[2023-03-10] MEDS: fluorouraciL 50 mg/ml INJ 860 MG IVP (12:05)
[2023-03-14 08:37] LABS: Basophils Percent Auto 0.3 % (0.0-3.0); Eosinophils Percent Auto 4.1 % (0.0-7.0); Hematocrit 38.6 % (37.0-53.0); Hemoglobin* 13.3 gm/dL (13.5-17.5); Lymphocytes Percent Auto 29.7 % (20-44); Mean Corpuscular HGB Conc 35 gm/dL (32-36); Mean Corpuscular Hemoglobin 31 pg (26-34); Mean Corpuscular Volume 90 fL (80-100); Monocytes Percent Auto 18.4 % (0.0-11.0); Neutrophils Percent Auto 47.5 % (42.0-72.0); Platelet Count* 107 K/uL (140-440); RDW Coefficient of Variation % 17.9 % (11.5-15.5); Red Blood Count 4.29 m/uL (4.30-5.90); White Blood Count* 3.16 K/uL (4.50-11.00)
[2023-03-14 08:41] LABS: Slide Review Reflex No
[2023-03-14 08:50] LABS: Chloride* 105 mmol/L (96-114); Potassium* 4.2 mmol/L (3.6-5.1); Sodium* 136 mmol/L (135-149)
[2023-03-14 08:52] LABS: Creatinine* 0.8 mg/dL (0.5-1.5); Estimated Glomerular Filt Rate 112 ml/min
[2023-03-14 08:53] LABS: Alanine Aminotransferase* 44 U/L (4-50); Alkaline Phosphatase* 105 U/L (40-150); Aspartate Amino Transferase* 34 U/L (12-35); Bilirubin Total* 0.7 mg/dL (0.1-1.5); Blood Urea Nitrogen* 15 mg/dL (5-24); Calcium* 8.5 mg/dL (8.4-10.6); Carbon Dioxide* 25 mmol/L (20-32); Glucose* 121 mg/dL (60-115); Total Protein* 6.7 g/dL (6.0-8.3)
[2023-03-17 09:08] VITALS: BP 139/89; PULSE 129; RESP 16; TEMP 36.6; O2SAT 96
[2023-03-17] MEDS: 0.9 % SODIUM CHLORIDE 250 ml IV (10:14)
[2023-03-17 10:33] LABS: Bilirubin Direct* 0.3 mg/dL (0.0-0.5)
[2023-03-17] MEDS: dexAMETHasone 12 MG in 0.9 % SODIUM CHLORIDE 100 ml 100 ML 400 MG IVPB (11:08)
[2023-03-17] MEDS: GRANISETRON 1 MG/ML inj IVP (11:30)
[2023-03-17] MEDS: FOSAPREPITANT 150 MG inj 150 MG in 0.9 % SODIUM CHLORIDE 250 ml 250 ML 510 MG IVPB (11:31)
[2023-03-17] MEDS: fluorouraciL 50 mg/ml INJ 860 MG IVP (14:23)
[2023-03-21 11:27] LABS: Basophils Percent Auto 0.2 % (0.0-3.0); Hematocrit 39.4 % (37.0-53.0); Hemoglobin* 13.6 gm/dL (13.5-17.5); Immature Granulocytes Pct Auto 0.2 %; Mean Corpuscular HGB Conc 35 gm/dL (32-36); Mean Corpuscular Hemoglobin 31 pg (26-34); Mean Corpuscular Volume 91 fL (80-100); Neutrophils Percent Auto 51.6 % (42.0-72.0); Platelet Count* 86 K/uL (140-440); RDW Coefficient of Variation % 18.5 % (11.5-15.5); Red Blood Count 4.34 m/uL (4.30-5.90); White Blood Count* 4.04 K/uL (4.50-11.00)
[2023-03-21 11:30] LABS: Slide Review Reflex No
[2023-03-21 11:52] LABS: Albumin* 4.2 g/dL (3.3-5.0)
[2023-03-21 11:53] LABS: Chloride* 104 mmol/L (96-114); Potassium* 4.2 mmol/L (3.6-5.1); Sodium* 135 mmol/L (135-149)
[2023-03-21 11:55] LABS: Alkaline Phosphatase* 107 U/L (40-150); Aspartate Amino Transferase* 34 U/L (12-35); Bilirubin Total* 0.9 mg/dL (0.1-1.5); Blood Urea Nitrogen* 14 mg/dL (5-24); Carbon Dioxide* 25 mmol/L (20-32); Creatinine* 0.8 mg/dL (0.5-1.5); Estimated Glomerular Filt Rate 112 ml/min; Total Protein* 6.7 g/dL (6.0-8.3)
[2023-03-21 11:56] LABS: Alanine Aminotransferase* 48 U/L (4-50); Calcium* 8.9 mg/dL (8.4-10.6); Glucose* 82 mg/dL (60-115)
[2023-03-24 08:50] LABS: Platelet Count* 84 K/uL (140-440)
[2023-03-24 08:52] VITALS: BP 139/97; PULSE 126; RESP 16; TEMP 36.4; O2SAT 96
--- NOTE | 2023-03-24 09:40 | ONC.NURNOTE ---
no treatment today due to low plts 84. denies any symptoms. states new lbp. had seen primary. states xray wnl.
[2023-04-04 10:30] LABS: Basophils Percent Auto 0.7 % (0.0-3.0); Eosinophils Percent Auto 0.7 % (0.0-7.0); Hematocrit 40.8 % (37.0-53.0); Hemoglobin* 13.5 gm/dL (13.5-17.5); Lymphocytes Percent Auto 11.4 % (20-44); Mean Corpuscular HGB Conc 33 gm/dL (32-36); Mean Corpuscular Hemoglobin 31 pg (26-34); Mean Corpuscular Volume 94 fL (80-100); Monocytes Percent Auto 3.3 % (0.0-11.0); Neutrophils Percent Auto 83.9 % (42.0-72.0); Platelet Count* 73 K/uL (140-440); Red Blood Count 4.34 m/uL (4.30-5.90); White Blood Count* 2.71 K/uL (4.50-11.00)
[2023-04-04 10:37] LABS: Slide Review Reflex No
[2023-04-04 10:43] LABS: Albumin* 4.2 g/dL (3.3-5.0); Chloride* 106 mmol/L (96-114)
[2023-04-04 10:44] LABS: Potassium* 4.4 mmol/L (3.6-5.1); Sodium* 137 mmol/L (135-149)
[2023-04-04 10:46] LABS: Aspartate Amino Transferase* 38 U/L (12-35); Bilirubin Total* 0.7 mg/dL (0.1-1.5); Carbon Dioxide* 25 mmol/L (20-32); Creatinine* 0.7 mg/dL (0.5-1.5); Estimated Glomerular Filt Rate 117 ml/min; Total Protein* 6.8 g/dL (6.0-8.3)
[2023-04-04 10:47] LABS: Alanine Aminotransferase* 41 U/L (4-50); Alkaline Phosphatase* 102 U/L (40-150); Blood Urea Nitrogen* 12 mg/dL (5-24); Calcium* 9.1 mg/dL (8.4-10.6); Glucose* 141 mg/dL (60-115)
[2023-04-04] MEDS: HEPARIN 500 UNIT/5 ML SYRINGE IVF (11:46)
[2023-04-04] MEDS: 5 % DEXTROSE 250 ML IV (11:46)
--- NOTE | 2023-04-07 08:33 | PC.NURSE ---
Called pt this morning with today's plan. We will repeat lab work this morning. New treatment parameters per Dr. Fishman/Celine Vazquez APRN are ok to treat if platelets are over 85k. Per Celine Chappell, Dr. Fishman is also reducing the Oxaliplatin dose. Pt informed of all of the above. He will come in this morning when able.
[2023-04-07 09:20] LABS: Basophils Percent Auto 0.3 % (0.0-3.0); Hematocrit 42.9 % (37.0-53.0); Hemoglobin* 14.3 gm/dL (13.5-17.5); Lymphocytes Percent Auto 21.8 % (20-44); Mean Corpuscular HGB Conc 33 gm/dL (32-36); Mean Corpuscular Hemoglobin 31 pg (26-34); Mean Corpuscular Volume 93 fL (80-100); Monocytes Percent Auto 15.4 % (0.0-11.0); Neutrophils Percent Auto 60.5 % (42.0-72.0); Platelet Count* 92 K/uL (140-440); RDW Coefficient of Variation % 16.7 % (11.5-15.5); White Blood Count* 3.58 K/uL (4.50-11.00)
[2023-04-07 09:29] LABS: Slide Review Reflex No
[2023-04-07 09:39] LABS: Bilirubin Direct* 0.2 mg/dL (0.0-0.5)
[2023-04-07 09:42] VITALS: BP 136/92; PULSE 117; RESP 16; TEMP 36.7
[2023-04-07] MEDS: dexAMETHasone 12 MG in 0.9 % SODIUM CHLORIDE 100 ml 100 ML 400 MG IVPB (11:02)
[2023-04-07] MEDS: PALONOSETRON 0.25 MG/5 ML inj IV (11:02)
[2023-04-07] MEDS: FOSAPREPITANT 150 MG inj 150 MG in 0.9 % SODIUM CHLORIDE 250 ml 250 ML 780 MG IVPB (11:24)
[2023-04-07] MEDS: fluorouraciL 50 mg/ml INJ 860 MG IVP (15:30)
[2023-04-11 09:05] LABS: Blood Urea Nitrogen* 18 mg/dL (5-24); Carbon Dioxide* 22 mmol/L (20-32); Chloride* 104 mmol/L (96-114); Creatinine* 0.7 mg/dL (0.5-1.5); Estimated Glomerular Filt Rate 117 ml/min; Sodium* 137 mmol/L (135-149)
[2023-04-11 09:06] LABS: Glucose* 136 mg/dL (60-115)
[2023-04-11 09:23] LABS: Albumin* 4.2 g/dL (3.3-5.0)
[2023-04-11 09:26] LABS: Alanine Aminotransferase* 43 U/L (4-50); Alkaline Phosphatase* 111 U/L (40-150); Aspartate Amino Transferase* 37 U/L (12-35); Bilirubin Total* 0.7 mg/dL (0.1-1.5); Total Protein* 6.7 g/dL (6.0-8.3)
[2023-04-11 09:53] LABS: Basophils Percent Auto 0.3 % (0.0-3.0); Eosinophils Percent Auto 1.2 % (0.0-7.0); Hematocrit 42.3 % (37.0-53.0); Hemoglobin* 14.2 gm/dL (13.5-17.5); Immature Granulocytes Pct Auto 0.6 %; Lymphocytes Percent Auto 25.2 % (20-44); Mean Corpuscular HGB Conc 34 gm/dL (32-36); Mean Corpuscular Hemoglobin 31 pg (26-34); Mean Corpuscular Volume 94 fL (80-100); Monocytes Percent Auto 17.6 % (0.0-11.0); Neutrophils Percent Auto 55.1 % (42.0-72.0); Platelet Count* 87 K/uL (140-440); RDW Coefficient of Variation % 16.1 % (11.5-15.5); Red Blood Count 4.52 m/uL (4.30-5.90)
[2023-04-11 10:09] LABS: Slide Review Reflex No
[2023-04-15 08:40] LABS: Basophils Percent Auto 0.3 % (0.0-3.0); Eosinophils Percent Auto 1.7 % (0.0-7.0); Hematocrit 41.3 % (37.0-53.0); Hemoglobin* 13.9 gm/dL (13.5-17.5); Immature Granulocytes Pct Auto 0.9 %; Lymphocytes Percent Auto 21.7 % (20-44); Mean Corpuscular HGB Conc 34 gm/dL (32-36); Mean Corpuscular Hemoglobin 31 pg (26-34); Mean Corpuscular Volume 93 fL (80-100); Monocytes Percent Auto 16.2 % (0.0-11.0); Neutrophils Percent Auto 59.2 % (42.0-72.0); Platelet Count* 97 K/uL (140-440); Red Blood Count 4.46 m/uL (4.30-5.90); White Blood Count* 3.46 K/uL (4.50-11.00)
[2023-04-15 08:54] LABS: Slide Review Reflex No
--- NOTE | 2023-04-15 09:22 | ONC.NURNOTE ---
plts 97. Ok to treat per Jen ALDANA/ Dr. Neff
[2023-04-15] MEDS: GRANISETRON 1 MG/ML inj IVP (09:41)
[2023-04-15] MEDS: dexAMETHasone 10 MG in 0.9 % SODIUM CHLORIDE 100 ml 100 ML 404 MG IVPB (09:42)
[2023-04-15] MEDS: 0.9 % SODIUM CHLORIDE 250 ml IV (10:04)
[2023-04-15] MEDS: HEPARIN 500 UNIT/5 ML SYRINGE IVF (10:04)
[2023-04-15] MEDS: SODIUM CHLORIDE 0.9 % (FLUSH) 10 ML SYRINGE IVF (10:05)
[2023-04-15] MEDS: fluorouraciL 50 mg/ml INJ 860 MG IVP (11:50)
[2023-04-18 09:27] LABS: Chloride* 103 mmol/L (96-114); Sodium* 138 mmol/L (135-149)
[2023-04-18 09:28] LABS: Basophils Absolute Auto 0.01 K/uL (0.00-0.30); Basophils Percent Auto 0.2 % (0.0-3.0); Eosinophils Absolute Auto 0.03 K/uL (0.00-0.50); Eosinophils Percent Auto 0.6 % (0.0-7.0); Hematocrit 41.1 % (37.0-53.0); Hemoglobin* 13.9 gm/dL (13.5-17.5); Immature Granulocytes Abs Auto 0.04 K/uL (0.00-0.30); Immature Granulocytes Pct Auto 0.8 %; Lymphocytes Percent Auto 16.8 % (20-44); Mean Corpuscular HGB Conc 34 gm/dL (32-36); Mean Corpuscular Hemoglobin 31 pg (26-34); Mean Corpuscular Volume 93 fL (80-100); Monocytes Percent Auto 11.2 % (0.0-11.0); Neutrophils Percent Auto 70.4 % (42.0-72.0); Platelet Count* 96 K/uL (140-440); Red Blood Count 4.43 m/uL (4.30-5.90); White Blood Count* 4.83 K/uL (4.50-11.00)
[2023-04-18 09:30] LABS: Alanine Aminotransferase* 77 U/L (4-50); Alkaline Phosphatase* 82 U/L (40-150); Aspartate Amino Transferase* 43 U/L (12-35); Bilirubin Total* 0.6 mg/dL (0.1-1.5); Blood Urea Nitrogen* 15 mg/dL (5-24); Carbon Dioxide* 26 mmol/L (20-32); Creatinine* 0.8 mg/dL (0.5-1.5); Estimated Glomerular Filt Rate 112 ml/min; Glucose* 139 mg/dL (60-115); Slide Review Reflex No; Total Protein* 6.5 g/dL (6.0-8.3)
[2023-04-21 08:28] VITALS: BP 126/89; PULSE 116; RESP 16; TEMP 36.3; O2SAT 96
[2023-04-21] MEDS: PALONOSETRON 0.25 MG/5 ML inj IV (09:57)
[2023-04-21] MEDS: dexAMETHasone 12 MG in 0.9 % SODIUM CHLORIDE 100 ml 100 ML 400 MG IVPB (09:57)
[2023-04-21] MEDS: FOSAPREPITANT 150 MG inj 150 MG in 0.9 % SODIUM CHLORIDE 250 ml 250 ML 510 MG IVPB (10:17)
[2023-04-21] MEDS: fluorouraciL 50 mg/ml INJ 860 MG IVP (13:06)
[2023-04-22 06:38] LABS: Bilirubin Direct* 0.1 mg/dL (0.0-0.5)
[2023-04-28 08:15] VITALS: BP 129/89; PULSE 128; RESP 16; TEMP 35.5; O2SAT 96
[2023-04-28 08:28] LABS: Basophils Percent Auto 0.3 % (0.0-3.0); Eosinophils Percent Auto 1.9 % (0.0-7.0); Hematocrit 41.7 % (37.0-53.0); Hemoglobin* 14.1 gm/dL (13.5-17.5); Immature Granulocytes Pct Auto 0.6 %; Lymphocytes Percent Auto 19.7 % (20-44); Mean Corpuscular HGB Conc 34 gm/dL (32-36); Mean Corpuscular Hemoglobin 32 pg (26-34); Mean Corpuscular Volume 93 fL (80-100); Monocytes Percent Auto 13.9 % (0.0-11.0); Neutrophils Percent Auto 63.6 % (42.0-72.0); Platelet Count* 98 K/uL (140-440); RDW Coefficient of Variation % 16.5 % (11.5-15.5); Red Blood Count 4.48 m/uL (4.30-5.90); White Blood Count* 3.61 K/uL (4.50-11.00)
[2023-04-28 08:33] LABS: Slide Review Reflex No
--- NOTE | 2023-04-28 08:35 | ONC.NURNOTE ---
states tip tongue little sore. watching. states told Celine POLO tingling worsen raman LT. states ate different this past weekend and bowels arnt quite well. states gave himself a daily enema as usual but feels not all came out. enc him to contact us if no improvement or increase in symptoms.
[2023-04-28 08:44] LABS: Albumin* 4.2 g/dL (3.3-5.0); Chloride* 105 mmol/L (96-114)
[2023-04-28 08:45] LABS: Potassium* 3.7 mmol/L (3.6-5.1); Sodium* 136 mmol/L (135-149)
[2023-04-28 08:47] LABS: Carbon Dioxide* 24 mmol/L (20-32); Creatinine* 0.8 mg/dL (0.5-1.5); Estimated Glomerular Filt Rate 112 ml/min
[2023-04-28 08:48] LABS: Alanine Aminotransferase* 58 U/L (4-50); Alkaline Phosphatase* 104 U/L (40-150); Aspartate Amino Transferase* 41 U/L (12-35); Bilirubin Total* 0.7 mg/dL (0.1-1.5); Blood Urea Nitrogen* 11 mg/dL (5-24); Calcium* 9.2 mg/dL (8.4-10.6); Glucose* 124 mg/dL (60-115); Total Protein* 6.9 g/dL (6.0-8.3)
[2023-04-28] MEDS: dexAMETHasone 10 MG in 0.9 % SODIUM CHLORIDE 100 ml 100 ML 404 MG IVPB (09:28)
[2023-04-28] MEDS: GRANISETRON 1 MG/ML inj IVP (09:29)
[2023-04-28] MEDS: fluorouraciL 50 mg/ml INJ 860 MG IVP (11:46)
[2023-04-28] MEDS: SODIUM CHLORIDE 0.9 % (FLUSH) 10 ML SYRINGE IVF (14:35)
[2023-04-28] MEDS: 0.9 % SODIUM CHLORIDE 250 ml IV (14:35)
[2023-04-28] MEDS: HEPARIN 500 UNIT/5 ML SYRINGE IVF (14:35)
[2023-05-02 09:04] LABS: Basophils Percent Auto 0.4 % (0.0-3.0); Eosinophils Percent Auto 2.2 % (0.0-7.0); Hematocrit 39.3 % (37.0-53.0); Hemoglobin* 13.5 gm/dL (13.5-17.5); Lymphocytes Percent Auto 24.3 % (20-44); Mean Corpuscular HGB Conc 34 gm/dL (32-36); Mean Corpuscular Hemoglobin 32 pg (26-34); Mean Corpuscular Volume 93 fL (80-100); Neutrophils Percent Auto 58.1 % (42.0-72.0); Platelet Count* 79 K/uL (140-440); RDW Coefficient of Variation % 16.5 % (11.5-15.5); Red Blood Count 4.25 m/uL (4.30-5.90); White Blood Count* 2.67 K/uL (4.50-11.00)
[2023-05-02 09:14] LABS: Albumin* 4.1 g/dL (3.3-5.0); Chloride* 104 mmol/L (96-114); Potassium* 3.5 mmol/L (3.6-5.1); Sodium* 136 mmol/L (135-149)
[2023-05-02 09:16] LABS: Bilirubin Total* 0.6 mg/dL (0.1-1.5); Creatinine* 0.7 mg/dL (0.5-1.5); Estimated Glomerular Filt Rate 117 ml/min
[2023-05-02 09:17] LABS: Alanine Aminotransferase* 74 U/L (4-50); Alkaline Phosphatase* 116 U/L (40-150); Aspartate Amino Transferase* 55 U/L (12-35); Blood Urea Nitrogen* 11 mg/dL (5-24); Calcium* 8.6 mg/dL (8.4-10.6); Carbon Dioxide* 25 mmol/L (20-32); Glucose* 140 mg/dL (60-115); Total Protein* 6.5 g/dL (6.0-8.3)
[2023-05-02 09:18] LABS: Slide Review Reflex No
--- NOTE | 2023-05-02 09:47 | ONC.NURNOTE ---
Celine Cooper APRN aware of lab results. repeat CBC 05/[address] message left with Luis.
[2023-05-02] MEDS: HEPARIN 500 UNIT/5 ML SYRINGE IVF (09:49)
[2023-05-02] MEDS: SODIUM CHLORIDE 0.9 % (FLUSH) 10 ML SYRINGE IVF (09:50)
[2023-05-02 10:24] LABS: Creatinine Urine 153.5 mg/dL; Total Protein Urine 8 mg/dL
[2023-05-04 21:25] LABS: Collection Time Urine 24 Hours; Total Volume 24 Hour Urine 2025 ml; Urine Creatinine mg/24 Hour 0 mg/Day
[2023-05-05] MEDS: SODIUM CHLORIDE 0.9 % (FLUSH) 10 ML SYRINGE IVF (10:00)
[2023-05-05 10:07] LABS: Basophils Percent Auto 0.5 % (0.0-3.0); Eosinophils Percent Auto 1.4 % (0.0-7.0); Hematocrit 39.6 % (37.0-53.0); Hemoglobin* 13.5 gm/dL (13.5-17.5); Immature Granulocytes Pct Auto 0.7 %; Mean Corpuscular HGB Conc 34 gm/dL (32-36); Mean Corpuscular Hemoglobin 31 pg (26-34); Mean Corpuscular Volume 92 fL (80-100); Monocytes Percent Auto 16.5 % (0.0-11.0); Neutrophils Percent Auto 61.9 % (42.0-72.0); Platelet Count* 90 K/uL (140-440); White Blood Count* 4.43 K/uL (4.50-11.00)
[2023-05-05 10:12] LABS: Slide Review Reflex No
[2023-05-05] MEDS: 0.9 % SODIUM CHLORIDE 250 ml IV (10:28)
[2023-05-05] MEDS: PALONOSETRON 0.25 MG/5 ML inj IV (11:21)
[2023-05-05] MEDS: FOSAPREPITANT 150 MG inj 150 MG in 0.9 % SODIUM CHLORIDE 250 ml 250 ML 780 MG IVPB (11:23)
[2023-05-05] MEDS: dexAMETHasone 12 MG in 0.9 % SODIUM CHLORIDE 100 ml 100 ML 420 MG IVPB (11:50)
[2023-05-05] MEDS: 5 % DEXTROSE 250 ML IV (12:09)
[2023-05-05] MEDS: fluorouraciL 50 mg/ml INJ 870 MG IVP (14:14)
[2023-05-09 11:00] LABS: Basophils Percent Auto 0.3 % (0.0-3.0); Eosinophils Percent Auto 1.7 % (0.0-7.0); Hemoglobin* 13.4 gm/dL (13.5-17.5); Lymphocytes Percent Auto 24.2 % (20-44); Mean Corpuscular HGB Conc 34 gm/dL (32-36); Mean Corpuscular Hemoglobin 32 pg (26-34); Mean Corpuscular Volume 93 fL (80-100); Monocytes Percent Auto 17.1 % (0.0-11.0); Neutrophils Percent Auto 56.7 % (42.0-72.0); Platelet Count* 67 K/uL (140-440); RDW Coefficient of Variation % 16.8 % (11.5-15.5); Red Blood Count 4.21 m/uL (4.30-5.90); White Blood Count* 2.98 K/uL (4.50-11.00)
[2023-05-09 11:04] LABS: Slide Review Reflex No
[2023-05-09 11:22] LABS: Albumin* 3.9 g/dL (3.3-5.0); Chloride* 102 mmol/L (96-114); Potassium* 3.7 mmol/L (3.6-5.1); Sodium* 134 mmol/L (135-149)
[2023-05-09 11:24] LABS: Creatinine* 0.8 mg/dL (0.5-1.5); Estimated Glomerular Filt Rate 112 ml/min
[2023-05-09 11:25] LABS: Alanine Aminotransferase* 94 U/L (4-50); Alkaline Phosphatase* 88 U/L (40-150); Aspartate Amino Transferase* 51 U/L (12-35); Bilirubin Total* 0.9 mg/dL (0.1-1.5); Blood Urea Nitrogen* 15 mg/dL (5-24); Calcium* 8.6 mg/dL (8.4-10.6); Carbon Dioxide* 26 mmol/L (20-32); Glucose* 115 mg/dL (60-115); Total Protein* 6.3 g/dL (6.0-8.3)
[2023-05-12 10:28] LABS: Basophils Percent Auto 0.5 % (0.0-3.0); Hemoglobin* 13.7 gm/dL (13.5-17.5); Immature Granulocytes Pct Auto 0.5 %; Mean Corpuscular HGB Conc 33 gm/dL (32-36); Mean Corpuscular Hemoglobin 32 pg (26-34); Mean Corpuscular Volume 95 fL (80-100); Monocytes Percent Auto 19.3 % (0.0-11.0); Neutrophils Percent Auto 58.7 % (42.0-72.0); Platelet Count* 82 K/uL (140-440); Red Blood Count 4.34 m/uL (4.30-5.90); White Blood Count* 3.94 K/uL (4.50-11.00)
[2023-05-12 10:33] LABS: Slide Review Reflex No
[2023-05-12 10:53] LABS: Albumin* 4.1 g/dL (3.3-5.0); Chloride* 104 mmol/L (96-114)
[2023-05-12 10:54] LABS: Potassium* 4.1 mmol/L (3.6-5.1); Sodium* 137 mmol/L (135-149)
[2023-05-12 10:56] LABS: Alkaline Phosphatase* 108 U/L (40-150); Aspartate Amino Transferase* 47 U/L (12-35); Bilirubin Total* 0.6 mg/dL (0.1-1.5); Blood Urea Nitrogen* 13 mg/dL (5-24); Carbon Dioxide* 26 mmol/L (20-32); Creatinine* 0.7 mg/dL (0.5-1.5); Estimated Glomerular Filt Rate 117 ml/min; Total Protein* 6.7 g/dL (6.0-8.3)
[2023-05-12 10:57] LABS: Alanine Aminotransferase* 69 U/L (4-50); Calcium* 9.3 mg/dL (8.4-10.6); Glucose* 104 mg/dL (60-115)
[2023-05-12 11:07] VITALS: BP 134/90; PULSE 110; RESP 16; TEMP 36.6; O2SAT 96
[2023-05-12] MEDS: dexAMETHasone 10 MG in 0.9 % SODIUM CHLORIDE 100 ml 100 ML 404 MG IVPB (12:09)
[2023-05-12] MEDS: 0.9 % SODIUM CHLORIDE 250 ml IV (12:09)
[2023-05-12] MEDS: HEPARIN 500 UNIT/5 ML SYRINGE IVF (12:10)
[2023-05-12] MEDS: GRANISETRON 1 MG/ML inj IVP (12:10)
[2023-05-12] MEDS: SODIUM CHLORIDE 0.9 % (FLUSH) 10 ML SYRINGE IVF (12:11)
--- NOTE | 2023-05-12 12:24 | ONC.NURNOTE ---
plts 82. denies bruising or bleeding. ok to treat today per Dr. Neff.
[2023-05-12] MEDS: fluorouraciL 50 mg/ml INJ 870 MG IVP (14:16)
[2023-06-09 08:06] VITALS: BP 132/97; PULSE 123; RESP 18; TEMP 36.4; O2SAT 96
[2023-06-09 08:37] LABS: Eosinophils Percent Auto 3.2 % (0.0-7.0); Hematocrit 42.9 % (37.0-53.0); Hemoglobin* 14.3 gm/dL (13.5-17.5); Lymphocytes Percent Auto 19.4 % (20-44); Mean Corpuscular HGB Conc 33 gm/dL (32-36); Mean Corpuscular Hemoglobin 31 pg (26-34); Mean Corpuscular Volume 94 fL (80-100); Monocytes Percent Auto 14.3 % (0.0-11.0); Neutrophils Percent Auto 62.1 % (42.0-72.0); Platelet Count* 90 K/uL (140-440); RDW Coefficient of Variation % 14.7 % (11.5-15.5); Red Blood Count 4.58 m/uL (4.30-5.90); White Blood Count* 3.15 K/uL (4.50-11.00)
[2023-06-09 08:38] LABS: Slide Review Reflex No
[2023-06-09 08:41] LABS: Albumin* 4.1 g/dL (3.3-5.0); Chloride* 103 mmol/L (96-114)
[2023-06-09 08:42] LABS: Potassium* 3.4 mmol/L (3.6-5.1); Sodium* 137 mmol/L (135-149)
[2023-06-09 08:44] LABS: Creatinine* 0.8 mg/dL (0.5-1.5); Estimated Glomerular Filt Rate 111 ml/min
[2023-06-09 08:45] LABS: Alanine Aminotransferase* 70 U/L (4-50); Alkaline Phosphatase* 107 U/L (40-150); Aspartate Amino Transferase* 52 U/L (12-35); Bilirubin Total* 0.8 mg/dL (0.1-1.5); Blood Urea Nitrogen* 9 mg/dL (5-24); Calcium* 9.1 mg/dL (8.4-10.6); Carbon Dioxide* 25 mmol/L (20-32); Glucose* 151 mg/dL (60-115); Total Protein* 6.8 g/dL (6.0-8.3)
[2023-06-09] MEDS: SODIUM CHLORIDE 0.9 % (FLUSH) 10 ML SYRINGE IVF (10:17)
[2023-06-09] MEDS: 0.9 % SODIUM CHLORIDE 250 ml IV (10:17)
[2023-06-09] MEDS: FOSAPREPITANT 150 MG inj 150 MG in 0.9 % SODIUM CHLORIDE 250 ml 250 ML 500 MG IVPB (11:01)
[2023-06-09] MEDS: PALONOSETRON 0.25 MG/5 ML inj IV (11:02)
[2023-06-09] MEDS: dexAMETHasone 12 MG in 0.9 % SODIUM CHLORIDE 100 ml 100 ML 400 MG IVPB (11:36)
[2023-06-09] MEDS: 5 % DEXTROSE 250 ML IV (11:36)
[2023-06-09 13:27] LABS: Bilirubin Direct* 0.1 mg/dL (0.0-0.5)
[2023-06-09] MEDS: fluorouraciL 50 mg/ml INJ 870 MG IVP (13:58)
[2023-06-16 08:13] LABS: Basophils Percent Auto 0.8 % (0.0-3.0); Eosinophils Percent Auto 3.2 % (0.0-7.0); Hematocrit 42.3 % (37.0-53.0); Hemoglobin* 14.2 gm/dL (13.5-17.5); Immature Granulocytes Pct Auto 0.5 %; Lymphocytes Percent Auto 16.9 % (20-44); Mean Corpuscular HGB Conc 34 gm/dL (32-36); Mean Corpuscular Hemoglobin 31 pg (26-34); Mean Corpuscular Volume 94 fL (80-100); Monocytes Percent Auto 20.4 % (0.0-11.0); Neutrophils Percent Auto 58.2 % (42.0-72.0); Platelet Count* 104 K/uL (140-440); RDW Coefficient of Variation % 14.7 % (11.5-15.5); Red Blood Count 4.52 m/uL (4.30-5.90); White Blood Count* 3.72 K/uL (4.50-11.00)
[2023-06-16 08:15] LABS: Slide Review Reflex No
[2023-06-16 08:35] LABS: Albumin* 4.1 g/dL (3.3-5.0); Chloride* 104 mmol/L (96-114)
[2023-06-16 08:36] LABS: Potassium* 3.7 mmol/L (3.6-5.1); Sodium* 136 mmol/L (135-149)
[2023-06-16 08:38] LABS: Alanine Aminotransferase* 66 U/L (4-50); Alkaline Phosphatase* 110 U/L (40-150); Aspartate Amino Transferase* 48 U/L (12-35); Bilirubin Total* 0.7 mg/dL (0.1-1.5); Blood Urea Nitrogen* 11 mg/dL (5-24); Carbon Dioxide* 27 mmol/L (20-32); Creatinine* 0.7 mg/dL (0.5-1.5); Estimated Glomerular Filt Rate 116 ml/min; Glucose* 106 mg/dL (60-115); Total Protein* 6.9 g/dL (6.0-8.3)
[2023-06-16] MEDS: 0.9 % SODIUM CHLORIDE 250 ml IV (08:57)
[2023-06-16] MEDS: GRANISETRON 1 MG/ML inj IVP (08:57)
[2023-06-16] MEDS: dexAMETHasone 10 MG in 0.9 % SODIUM CHLORIDE 100 ml 100 ML 404 MG IVPB (09:23)
--- NOTE | 2023-06-16 10:08 | ONC.NURNOTE ---
Scheduling Changes Per pt, would like to do 6 wks of treatments then take 2 week break for bone marrow recovery/personal schedule. Appts and orders moved/scheduled for pt to be off week of 07/21 and 07/28. RTC Tues 08/[address] Neff after [facility] scans and appts with Dr. Fishman. Labs to be done day before.
[2023-06-16] MEDS: fluorouraciL 50 mg/ml INJ 870 MG IVP (11:32)
[2023-06-16] MEDS: SODIUM CHLORIDE 0.9 % (FLUSH) 10 ML SYRINGE IVF (11:50)
[2023-06-16] MEDS: HEPARIN 500 UNIT/5 ML SYRINGE IVF (13:52)
== END 2023-06-21 23:59 | disposition home or self-care (01) ==
LOC: CCIC 09:00
PROVIDERS: Clinical Nurse Specialist; Internal Medicine Medical Oncology; PCP Family Medicine; Referring Provider Family Medicine; Visit Provider Internal Medicine Hematology & Oncology
DX: Z51.11 Encounter for antineoplastic chemotherapy (principal); C20 Malignant neoplasm of rectum; C78.01 Secondary malignant neoplasm of right lung; C78.7 Secondary malignant neoplasm of liver and intrahepatic bile duct; D69.6 Thrombocytopenia, unspecified; G62.0 Drug-induced polyneuropathy; T45.1X5A Adverse effect of antineoplastic and immunosuppressive drugs, initial encounter
CPT/HCPCS: 36415; 36591; 80053; 81003; 81015; 82248; 82570; 84156; 85007; 85025; 85049; 87086; 96360; 96361; 96365; 96366; 96368; 96376; 96409; 96411; 96413; 96415; 96417; 99212; 99214; 99215; J0640; J1100; J1453; J1626; J1642; J2469; J7030; J7050; J9035; J9190; J9263

== ENCOUNTER 2023-07-26 19:55 | Observation (INO) | payer BC, SELFPAY ==
[2023-07-26 20:05] VITALS: BP 172/116; PULSE 116; RESP 16; TEMP 37.1; O2SAT 97; BMI 28.7
--- NOTE | 2023-07-26 20:26 | CRLHL7_ITS ---
For Patients: As a result of the Century Cures Act, medical imaging exams and procedure reports are released immediately into your electronic medical record. You may view this report before your referring provider. If you have questions, please contact your health care provider. INDICATION: Abdominal pain and hematemesis. Rectal adenocarcinoma with metastatic disease to lung and liver. TECHNIQUE: Axial images were obtained from the diaphragm to the pubic symphysis. Reformats were obtained in the coronal and sagittal plane. IV Contrast: 98 cc Isovue 370 Oral Contrast: None COMPARISON: Abdomen and pelvis CT 02/25/2022 FINDINGS: Lower chest: Linear scarring and bronchiectasis with a suture line in the right lower lobe. Bilateral pulmonary nodules at the lung bases. These are increased in size and number compared to the prior exam. Sample lesion measures 8 mm at series 3, image 27; prior 3 mm. Possible paraesophageal lymph node measuring 16 millimeters at the upper margin of the scan (series 2, image 1). Liver: Rounded hypodensity within the right lobe of the liver measured to 9.2 centimeters with some geographic wedge-shaped areas extending to the periphery of the liver consistent with a prior ablation cavity. New hypodense lesion within segment 6 measuring 11 millimeters (series 2, image 51). New 4 millimeter hypodense lesion within segment 4 (series 2, image 31). New hypodense lesion at the dome of the liver measuring 9 millimeters (series 4, image 40). Gallbladder and bile ducts: Gallbladder mildly contracted. Spleen: Unremarkable. Normal in size without mass. Pancreas: Unremarkable. No mass or inflammation. Adrenal glands: Unremarkable. No nodules. Kidneys: Unremarkable. No masses, stones, or hydronephrosis. Vasculature: Unremarkable. GI tract: Confluent soft tissue density along the celiac axis, likely confluent lymph nodes measuring up to 2.8 centimeters (2, 46). The stomach is unremarkable. The patient is status post rectal surgery and anastomosis. Small bowel suture line in the right lower quadrant. Short-segment borderline loop of small bowel within the deep pelvis adjacent to the upper rectal anastomosis. Pelvis: Unremarkable. Bones: Unremarkable for age. IMPRESSION: 1. Status post rectal resection and small bowel anastomosis in the right lower quadrant. New and increasing pulmonary lymph nodes as well as new liver lesions compared to the prior examination consistent with progressive metastatic disease. 2. Rounded fluid density structure within the right lobe of the liver consistent with evolution of the previously noted liver ablation site. 3. Periesophageal and celiac axis lymphadenopathy consistent with metastatic disease, progressive compared to the prior exam. 4. Short segment borderline small bowel loop within the pelvis. This is nonspecific and can be due to peristaltic activity although the differential diagnosis would include enteritis or low-grade small bowel obstruction. Please note that all CT scans at this facility use dose modulation, iterative reconstruction, and/or weight-based dosing when appropriate to reduce radiation dose to as low as reasonably achievable. Dictated by Kranthi Hernández MD @ 07/28/2023 9:50:22 AM ----- ADDENDUM ----- Prior exam from 05/14/2023 is now available for review. Pulmonary nodules are mildly increased in size compared to the study of 3 months prior. Liver lesions described as new are identified on the study of 3 months prior but have increased in size over the interval (example, segment 6 lesion measures 11 mm on the current exam and 7 mm on the prior). Confluent celiac axis soft tissue is also increased in size compared to the prior exam (current 2.8 cm, prior 2.2 cm at the same level). Overall this represents interval disease progression compared to the study 3 months prior. Dictated by Kranthi Hernández MD @ Jul 28 2023 1:09PM (Electronically Signed)
--- NOTE | 2023-07-26 20:35 | ED_ITS ---
HPI - Abdominal Pain General Chief Complaint: Abdominal Pain Stated Complaint: Abdominal pain Time Seen by Provider: 07/26/23 20:20 History of Present Illness HPI narrative: Patient is a 43-year-old gentleman who unfortunately has metastatic colorectal cancer with spread to his liver and chest presents with increasing abdominal pain over last 24 hours. He has also had blood in his vomit. He has had no blood in his stool. No fever chills no change in his sensorium. His pain is d iffuse and severe. Patient Has not been able to eat well. He state that he has had many rounds of chemotherapy and radiation. Patient describes no chest pain shortness a breath orthopnea no PND. Patient does have oncology follow-up early this coming week. He states he just feels terrible and needs some help. Related Data Home Medications Medication Instructions Recorded Confirmed Lactobacillus acidophilus 1 cap PO DAILY 05/16/22 06/24/23 acetaminophen 500 mg capsule 500 mg PO Q6H PRN 05/16/22 06/24/23 amlodipine 5 mg tablet 5 mg PO DAILY 05/16/22 06/24/23 ascorbic acid (vitamin C) 500 mg 500 mg PO DAILY 05/16/22 06/24/23 tablet cholecalciferol (vitamin D3) 125 5,000 unit PO DAILY 05/16/22 06/24/23 mcg (5,000 unit) capsule cyanocobalamin (vitamin B-12) 1,000 mcg PO DAILY 05/16/22 06/24/23 1,000 mcg capsule gabapentin 300 mg capsule 1,200 mg PO Q12H 05/16/22 06/24/23 hydromorphone 2 mg tablet 2 mg PO Q4-6H PRN 05/16/22 06/24/23 melatonin 5 mg capsule 5 mg PO DAILY 05/16/22 06/24/23 multivitamin 1 tab PO DAILY 05/16/22 06/24/23 omega 3-nho-coo-fish oil 1,000 mg 2 cap PO DAILY 05/16/22 06/24/23 (120 mg-180 mg) capsule (Fish Oil) pantoprazole 40 mg tablet,delayed 40 mg PO DAILY 05/16/22 06/24/23 release tumeric 100 mg-ronaldo 150 mg-olive 1 cap PO DAILY 05/16/22 06/24/23 50 mg-oreg 150 mg-caprylate capsule duloxetine 60 mg capsule,delayed 60 mg PO DAILY 08/19/22 06/24/23 release (Cymbalta) ibuprofen 600 mg tablet 600 mg PO Q8H PRN 09/30/22 06/24/23 fluticasone propionate 50 2 spray intranasal DAILY PRN 12/12/22 06/16/23 mcg/actuation nasal spray,suspension (24 Hour Allergy Relief) Previous Rx's Medication Instructions Recorded olanzapine 5 mg tablet 5 mg PO DAILY chemotherapy related 12/02/22 nausea #24 tabs ondansetron 8 mg disintegrating 8 mg PO TID PRN nausea and 12/02/22 tablet vomiting #30 tabs prochlorperazine maleate 10 mg 10 mg PO TID nausea or vomiting 12/02/22 tablet #40 tabs lorazepam 0.5 mg tablet 0.5 - 1 mg (1 - 2 x 0.5 mg) PO Q4H 01/08/23 PRN nausea and vomiting #40 tabs potassium chloride 20 mEq 20 meq PO BID #14 tabs 06/09/23 tablet,extended release dexamethasone 4 mg tablet 4 mg PO QDAY #4 tabs 07/18/23 Allergies Allergy/AdvReac Type Severity Reaction Status Date / Time capecitabine Allergy Severe Chest Pain Verified 07/26/23 21:02 Review of Systems Status of ROS Reports: 10 or more systems reviewed and unremarkable except as noted in History and below [facility] Medical History Chronic pain disorder ?G89.4 - Chronic pain syndrome (ICD-10) Anxiety ?F41.9 - Anxiety disorder, unspecified (ICD-10) Neuroma of thoracic region ?D36.14 - Benign neoplasm of peripheral nerves and autonomic nervous system of thorax (ICD-10) Hyponatremia ?E87.1 - Hypo-osmolality and hyponatremia (ICD-10) Gastroenteritis ?K52.9 - Noninfective gastroenteritis and colitis, unspecified (ICD-10) Dehydration ?E86.0 - Dehydration (ICD-10) Acute coronary syndrome ?I24.9 - Acute ischemic heart disease, unspecified (ICD-10) Abdominal pain ?R10.9 - Unspecified abdominal pain (ICD-10) Fracture of proximal end of humerus ?S42.209A - Unspecified fracture of upper end of unspecified humerus, initial encounter for closed fracture (ICD-10) Coronary vasospasm ?I20.1 - Angina pectoris with documented spasm (ICD-10) Chest wall pain ?R07.89 - Other chest pain (ICD-10) Surgical History S/P radiation therapy ?Z92.3 - Personal history of irradiation (ICD-10) Social History Narrative: with children. 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 Enjoys golgdgtg. Smoking Status: Never smoker Exam Narrative: Exam Narrative: EXAM GENERAL: Patient appears to be in moderate distress. EYES: No scleral icterus. LYMPH: No supraclavicular or cervical lymphadenopathy. SKIN: Visible skin seen during exam normal or with benign process only. EXT: No dependent lower extremity pedal edema. HEART: Regular rate and rhythm with no murmurs, rubs, or gallops. LUNGS: Clear to auscultation bilaterally with no crackles or wheezes. ABD: Mildly tender to palpation distended hypoactive bowel sounds. PSYCH: Good eye contact, speech is not pressured. Const: Vital Signs, click to edit/add: Vital Signs - 24 hr 07/26/23 20:05 07/26/23 22:00 Temperature 98.7 F Pulse Rate [Left P ulse Oximeter] 116 H 112 H Respiratory Rate 16 18 Blood Pressure [Ri ght Upper Arm] 172/116 H 176/117 H Pulse Oximetry 97 92 Oxygen Delivery Me thod Room Air Room Air Course Course ED Course: Very concerned about patient's status. Will proceed with IV Dilaudid 1 mg 4 mg of IV Zofran 1 L of normal saline. CBC CMP amylase UA CT of the abdomen pelvis ordered. Vital Signs Vital signs: Initial Vital Signs Temperature 98.7 F 07/26/23 20:05 Temperature Source Temporal Artery Scan 07/26/23 20:05 Pulse Rate 116 H 07/26/23 20:05 Respiratory Rate 16 07/26/23 20:05 Blood Pressure 172/116 H 07/26/23 20:05 Blood Pressure Mean 134 H 07/26/23 20:05 Blood Pressure Position Sitting 07/26/23 20:05 Pulse Oximetry 97 07/26/23 20:05 Oxygen Delivery Method Room Air 07/26/23 20:05 Vital Signs Temperature 98.7 F 07/26/23 20:05 Pulse Rate 116 H 07/26/23 20:05 Respiratory Rate 16 07/26/23 20:05 Blood Pressure 172/116 H 07/26/23 20:05 Pulse Oximetry 97 07/26/23 20:05 Oxygen Delivery Method Room Air 07/26/23 20:05 Temperature 98.7 F 07/26/23 20:05 Pulse Rate 112 H 07/26/23 22:00 Respiratory Rate 18 07/26/23 22:00 Blood Pressure 176/117 H 07/26/23 22:00 Pulse Oximetry 92 07/26/23 22:00 Oxygen Delivery Method Room Air 07/26/23 22:00 MDM - Abdominal Pain MDM Narrative Medical decision making narrative: Patient's labs are reassuring. His CT does show small section of small bowel inflammation which likely is the culprit causing his illness. He obviously has postoperative and changes related to his colorectal cancer. These appear to be nonacute. Patient is markedly better after IV hydration IV Dilaudid and Zofran. He at this time will be admitted for further evaluation bowel rest and pain control. Differential Diagnosis Differential diagnosis: Likely abdominal pain, acute appendicitis, constipation, diverticulitis, gastroenteritis, pancreatitis and small bowel obstruction Lab Data Labs: Lab Results 07/26/23 07/26/23 Range/Units 20:20 21:21 WBC 4.58 (4.50-11.00) K/uL RBC 4.85 (4.30-5.90) m/uL Hgb 15.1 (13.5-17.5) gm/dL Hct 45.0 (37.0-53.0) % MCV 93 (80-100) fL MCH 31 (26-34) pg MCHC 34 (32-36) gm/dL RDW Coeff of [place] 14.4 (11.5-15.5) % Plt Count 102 L (140-440) K/uL Neut % (Auto) 53.1 (42.0-72.0) % Lymph % (Auto) 23.1 (20-44) % [place] % (Auto) 21.2 H (0.0-11.0) % Eos % (Auto) 2.0 (0.0-7.0) % Baso % (Auto) 0.4 (0.0-3.0) % Neut # (Auto) 2.43 (1.7-7.0) K/uL Lymph # (Auto) 1.06 (0.90-2.90) K/uL [place] # (Auto) 1.00 H (0.00-0.90) K/UL Eos # (Auto) 0.09 (0.00-0.50) K/uL Baso # (Auto) 0.02 (0.00-0.30) K/uL Abs Immat Gran (auto) 0.01 (0.00-0.30) K/uL Imm/Tot Granulo (auto) 0.2 % Sodium 136 (135-149) mmol/L Potassium 4.1 (3.6-5.1) mmol/L Chloride 102 (96-114) mmol/L Carbon Dioxide 24 (20-32) mmol/L Anion Gap 10 (7-15) mEq/L BUN 17 (5-24) mg/dL Creatinine 0.9 (0.5-1.5) mg/dL Estimated Creat Clear 107.02 Estimated GFR 107 ml/min Glucose 77 (60-115) mg/dL Calcium 9.6 (8.4-10.6) mg/dL Total Bilirubin 0.6 (0.1-1.5) mg/dL AST 53 H (12-35) U/L ALT 65 H (4-50) U/L Alkaline Phosphatase 127 (40-150) U/L Total Protein 7.4 (6.0-8.3) g/dL Albumin 4.5 (3.3-5.0) g/dL Amylase 72 (18-89) U/L Urine Color Yellow (Yellow) Urine Appearance Clear (Clear) Urine pH 6.5 (5.0-8.5) Ur Specific Ruth 1.010 (1.000-1.030) Urine Protein Negative (Negative) Urine Glucose (UA) Negative (Negative) Urine Ketones Negative (Negative) Urine Blood Negative (Negative) Urine Nitrite Negative (Negative) Urine Bilirubin Negative (Negative) Urine Urobilinogen 0.2 (0.2-1.0) Ur Leukocyte Esterase Negative (Negative) Discharge Plan Discharge Clinical Impression: Abdominal pain Patient Disposition: Admitted As Observation Condition: Stable Activity Level: Other Discharge Diet: Other Prescriptions: No Action olanzapine 5 mg tablet 5 mg PO DAILY MDD 1 tab Qty: 24 0RF Rx Instructions: Take 1 tab at bedtime daily days 1-4 post chemotherapy. Do not take with roopa azepam. prochlorperazine maleate 10 mg tablet 10 mg PO TID Qty: 40 1RF Rx Instructions: Take first for chemotherapy related nausea. ondansetron 8 mg tablet,disintegrating 8 mg PO TID PRN (Reason: nausea and vomiting) Qty: 30 0RF Rx Instructions: Take for nausea 24-36 hours after chemotherapy for nausea not controlled with prochlorperazine (compazine) ibuprofen 600 mg tablet 600 mg PO Q8H PRN dexamethasone 4 mg tablet 4 mg PO QDAY Qty: 4 0RF Rx Instructions: Take 1 tab daily x 4 days with breakfast. acetaminophen 500 mg capsule 500 mg PO Q6H PRN amlodipine 5 mg tablet 5 mg PO DAILY ascorbic acid (vitamin C) 500 mg tablet 500 mg PO DAILY cholecalciferol (vitamin D3) 125 mcg (5,000 unit) capsule 5,000 unit PO DAILY cyanocobalamin (vitamin B-12) 1,000 mcg capsule 1,000 mcg PO DAILY omega 3-htb-wdk-fish oil [Fish Oil] 1,000 mg (120 mg-180 mg) capsule 2 cap PO DAILY gabapentin 300 mg capsule 1,200 mg PO Q12H hydromorphone 2 mg tablet 2 mg PO Q4-6H PRN Lactobacillus acidophilus Capsule 1 cap PO DAILY melatonin 5 mg capsule 5 mg PO DAILY multivitamin Tablet 1 tab PO DAILY pantoprazole 40 mg tablet,delayed release (DR/EC) 40 mg PO DAILY xrasxub-curb-tfofr-oreg-capryl 100 mg-150 mg- 50 mg-150 mg capsule 1 cap PO DAILY duloxetine [Cymbalta] 60 mg capsule,delayed release(DR/EC) 60 mg PO DAILY fluticasone propionate [24 Hour Allergy Relief] 50 mcg/actuation spray,suspension 2 spray intranasal DAILY PRN Hold Instructions: not taking Rx Instructions: administer into each nostril lorazepam 0.5 mg tablet 0.5 - 1 mg PO Q4H PRN (Reason: nausea and vomiting) Qty: 40 0RF potassium chloride 20 mEq tablet extended release 20 meq PO BID Qty: 14 3RF Follow Up/Referrals: Afsaneh Carlton MD [Primary Care Provider] -
[2023-07-26] MEDS: HYDROmorphone 0.5 mg/0.5 ml inj 1 MG IVP ×2 (20:39→21:53)
[2023-07-26] MEDS: 0.9 % SODIUM CHLORIDE 1000 ml 1,000 ML IV (20:39)
[2023-07-26] MEDS: ONDANSETRON 2 MG/ML inj 4 MG IVP ×2 (20:39→21:53)
[2023-07-26 20:40] LABS: Basophils Absolute Auto 0.02 K/uL (0.00-0.30); Basophils Percent Auto 0.4 % (0.0-3.0); Eosinophils Absolute Auto 0.09 K/uL (0.00-0.50); Hemoglobin* 15.1 gm/dL (13.5-17.5); Immature Granulocytes Abs Auto 0.01 K/uL (0.00-0.30); Immature Granulocytes Pct Auto 0.2 %; Lymphocytes Absolute Auto 1.06 K/uL (0.90-2.90); Lymphocytes Percent Auto 23.1 % (20-44); Mean Corpuscular HGB Conc 34 gm/dL (32-36); Mean Corpuscular Hemoglobin 31 pg (26-34); Mean Corpuscular Volume 93 fL (80-100); Monocytes Percent Auto 21.2 % (0.0-11.0); Neutrophils Absolute Auto 2.43 K/uL (1.7-7.0); Neutrophils Percent Auto 53.1 % (42.0-72.0); Platelet Count* 102 K/uL (140-440); RDW Coefficient of Variation % 14.4 % (11.5-15.5); Red Blood Count 4.85 m/uL (4.30-5.90); White Blood Count* 4.58 K/uL (4.50-11.00)
[2023-07-26 20:47] LABS: Slide Review Reflex No
[2023-07-26 20:56] LABS: Albumin* 4.5 g/dL (3.3-5.0); Chloride* 102 mmol/L (96-114); Potassium* 4.1 mmol/L (3.6-5.1); Sodium* 136 mmol/L (135-149)
[2023-07-26 20:58] LABS: Amylase* 72 U/L (18-89); Anion Gap 10 mEq/L (7-15); Carbon Dioxide* 24 mmol/L (20-32); Creatinine* 0.9 mg/dL (0.5-1.5); Est. Creatinine Clearance* 107.02; Estimated Glomerular Filt Rate 107 ml/min
[2023-07-26 20:59] LABS: Alanine Aminotransferase* 65 U/L (4-50); Alkaline Phosphatase* 127 U/L (40-150); Aspartate Amino Transferase* 53 U/L (12-35); Bilirubin Total* 0.6 mg/dL (0.1-1.5); Blood Urea Nitrogen* 17 mg/dL (5-24); Calcium* 9.6 mg/dL (8.4-10.6); Glucose* 77 mg/dL (60-115); Total Protein* 7.4 g/dL (6.0-8.3)
[2023-07-26 21:27] LABS: Appearance Urine Clear (Clear); Bilirubin Urine Negative (Negative); Blood Urine Negative (Negative); Color Urine Yellow (Yellow); Glucose Urine Negative (Negative); Ketones Urine Negative (Negative); Leukocyte Esterase Urine Negative (Negative); Nitrite Urine Negative (Negative); Protein Urine Negative (Negative); Urobilinogen Urine 0.2 (0.2-1.0); pH Urine 6.5 (5.0-8.5)
[2023-07-26 22:00] VITALS: BP 176/117; PULSE 112; RESP 18; O2SAT 92
[2023-07-26 23:57] VITALS: BP 156/114; PULSE 108; RESP 18; TEMP 36.1; O2SAT 95; BMI 27.8
--- NOTE | 2023-07-27 01:02 | PM.IMHP1 ---
Hospitalist- H&P: HPI History of Present Illness Time Seen by Provider: 23:30 Date Seen: 07/26/23 Chief complaint: Abdominal pain Narrative: Luis Tabares is a 43 year old With history of stage IV rectal adenocarcinoma who presents to the [facility] emergency room tonight with a week of abdominal pain. Initially it was more right upper but has moved more lower abdomen. He has had no nausea or vomiting until tonight he had an episode in the emergency room he has. He has had he has not had any change of his bowel habits. He has had anorexia all week. He has lost about 6 pounds recently. He has noted blood in his sputum and on his pillow case in the morning this week but no hematic emesis no epistaxis. He has not had any definitive hemoptysis however he suspects that the blood is coming more from sputum then from GI source. His rectal cancer stage IV was diagnosed back in 2018 initially treated with radiation in therectal, pelvis and abdominal judge. He was also treated with chemo and then had rectal surgery with an ileostomy with subsequent takedown. Hehas had mets known to the ribs and lung and liver. He has had a partial wedge resection of his pulmonary mets with a thoracotomy. He has had liver section ablation. He is also had radiation to the abdomen rectal, thoracic and cervical judge. He has had no prior history of radiation ileitis. He is followed by a [place] oncologist, a local oncologist and a [place] colorectal surgeon. He presented tonight with the above symptoms reaching his limits of tolerance of discomfort as well as concern. Imaging in the emergency room revealed a segment of small bowel with thickening without evidence of obstruction. Decision was made to admit Review of Systems Narrative: Complete 10 point review of systems was performed. It was negative other than noted above in in HPI. And in addition he has had some chronic back pain that preexisted the acute abdominal pain and is not related to it [facility] Medical History Chronic pain disorder ?G89.4 - Chronic pain syndrome (ICD-10) Anxiety ?F41.9 - Anxiety disorder, unspecified (ICD-10) Neuroma of thoracic region ?D36.14 - Benign neoplasm of peripheral nerves and autonomic nervous system of thorax (ICD-10) Hyponatremia ?E87.1 - Hypo-osmolality and hyponatremia (ICD-10) Gastroenteritis ?K52.9 - Noninfective gastroenteritis and colitis, unspecified (ICD-10) Dehydration ?E86.0 - Dehydration (ICD-10) Acute coronary syndrome ?I24.9 - Acute ischemic heart disease, unspecified (ICD-10) Abdominal pain ?R10.9 - Unspecified abdominal pain (ICD-10) Fracture of proximal end of humerus ?S42.209A - Unspecified fracture of upper end of unspecified humerus, initial encounter for closed fracture (ICD-10) Coronary vasospasm ?I20.1 - Angina pectoris with documented spasm (ICD-10) Chest wall pain ?R07.89 - Other chest pain (ICD-10) Surgical History S/P radiation therapy ?Z92.3 - Personal history of irradiation (ICD-10) Social History Narrative: with children. 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 Enjoys [employer]. What is your current living situation?: I presently have a place to live Problems where you live: no known problems Problems where you live details: n/a In the past 12 months, utilities in danger of being shut off: no In the past 12 mos, have been you worried that your food would run out before you had money to buy more?: never true In the past 12 mos, the food you bought just didn't last and you didn't have money to buy more?: never true Highest level of school completed/degree received: Master's degree Smoking Status: Never smoker How often do you have a drink containing alcohol: monthly or less How many standard drinks containing alcohol do you have on a typical day: 1 or 2 AUDIT-C Alcohol total score: 1 Non-prescribed substance use: marijuana (any form) Caffeine: Yes (2 cups of coffee) How often does anyone, including family, friends and others, physically hurt you: never How often does anyone, including family, friends and others, insult or talk down to you: never How often does anyone, including family, friends and others, threaten you with harm: never How often does anyone, including family, friends and others, scream or curse at you: never service: No Meds Home Medications and Allergies Home Medications Medication Instructions Recorded Confirmed Type Lactobacillus acidophilus 1 cap PO DAILY 05/16/22 06/24/23 History acetaminophen 500 mg capsule 500 mg PO Q6H PRN 05/16/22 06/24/23 History amlodipine 5 mg tablet 5 mg PO DAILY 05/16/22 06/24/23 History ascorbic acid (vitamin C) 500 mg 500 mg PO DAILY 05/16/22 06/24/23 History tablet cholecalciferol (vitamin D3) 125 5,000 unit PO DAILY 05/16/22 06/24/23 History mcg (5,000 unit) capsule cyanocobalamin (vitamin B-12) 1,000 mcg PO DAILY 05/16/22 06/24/23 History 1,000 mcg capsule gabapentin 300 mg capsule 1,200 mg PO Q12H 05/16/22 06/24/23 History hydromorphone 2 mg tablet 2 mg PO Q4-6H PRN 05/16/22 06/24/23 History melatonin 5 mg capsule 5 mg PO DAILY 05/16/22 06/24/23 History multivitamin 1 tab PO DAILY 05/16/22 06/24/23 History omega 2-wyz-sci-fish oil 1,000 mg 2 cap PO DAILY 05/16/22 06/24/23 History (120 mg-180 mg) capsule (Fish Oil) pantoprazole 40 mg tablet,delayed 40 mg PO DAILY 05/16/22 06/24/23 History release tumeric 100 mg-ronaldo 150 mg-olive 1 cap PO DAILY 05/16/22 06/24/23 History 50 mg-oreg 150 mg-caprylate capsule duloxetine 60 mg capsule,delayed 60 mg PO DAILY 08/19/22 06/24/23 History release (Cymbalta) ibuprofen 600 mg tablet 600 mg PO Q8H PRN 09/30/22 06/24/23 History fluticasone propionate 50 2 spray intranasal DAILY PRN 12/12/22 06/16/23 History mcg/actuation nasal spray,suspension (24 Hour Allergy Relief) Allergies Allergy/AdvReac Type Severity Reaction Status Date / Time capecitabine Allergy Severe Chest Pain Verified 07/26/23 21:02 Exam Narrative: Exam Narrative: Patient is awake and alert with a clear sensorium pleasant and cooperative. Vital signs reviewed and is remarkable for mild tachycardia to 108 and moderate elevation of blood pressure with blood pressures trending 150-170/114. Head atraumatic sclera nonicteric extraocular muscles are intact mucous membranes moist Neck no cervical or retroclavicular adenopathy appreciated by nurse nurse exam. No JVD Lungs clear to auscultation no distress Cardiac tachycardic on my exam 100 bpm regular no murmur appreciated Abdomen soft no palpable masses by nurse palpation. Mild right upper quadrant tenderness without rebound or guarding patient believes this is residual from his liver surgery Back no lesions noted Chest wall [id number] not accessed right upper quadrant Extremities good distal perfusion good capillary refill no edema patient has known peripheral neuropathy with diminished sensation to light touch Neurologic nonfocal Const: Vital Signs, click to edit/add: Vital Signs - 24 hr 07/26/23 20:05 07/26/23 22:00 07/26/23 23:57 Temperature 98.7 F 97.0 F L Pulse Rate [Left P ulse Oximeter] 116 H 112 H Pulse Rate [Pulse Oximeter] 108 H Respiratory Rate 16 18 18 Blood Pressure [Le ft Arm] 156/114 H Blood Pressure [Ri ght Upper Arm] 172/116 H 176/117 H Pulse Oximetry 97 92 95 Oxygen Delivery Me thod Room Air Room Air Room Air Hospitalist - H&P: Result Labs Labs: Short CBC 07/26/23 Range/Units 20:20 WBC 4.58 (4.50-11.00) K/uL Hgb 15.1 (13.5-17.5) gm/dL Hct 45.0 (37.0-53.0) % Plt Count 102 L (140-440) K/uL BMP 07/26/23 20:20 Sodium 136 Potassium 4.1 Chloride 102 Carbon Dioxide 24 BUN 17 Creatinine 0.9 Glucose 77 Calcium 9.6 Liver Function 07/26/23 Range/Units 20:20 Total Bilirubin 0.6 (0.1-1.5) mg/dL AST 53 H (12-35) U/L ALT 65 H (4-50) U/L Alkaline Phosphatase 127 (40-150) U/L Albumin 4.5 (3.3-5.0) g/dL Urine 07/26/23 Range/Units 21:21 Urine Color Yellow (Yellow) Urine Appearance Clear (Clear) Urine pH 6.5 (5.0-8.5) Ur Specific [place] 1.010 (1.000-1.030) Urine Protein Negative (Negative) Urine Glucose (UA) Negative (Negative) AST 53 ALT 65 alk phos [address] abdomen pelvis showed postoperative changes of the rectum small bowel anastomosis right lower. There was a segment of thickened small bowel anterior pelvis. No signs of obstruction Assessment and Plan Assessment and plan (1) Abdominal pain: Status: Acute (2) Hemoptysis: Status: Acute (3) Adenocarcinoma of rectum, stage 4: Status: Acute (4) Metastasis to lung: Status: Acute Plan Mr. Arango is a very pleasant 43-year-old gentleman with history of stage IV rectal adenocarcinoma with known history of mets to lung bone lymph nodes and liver who is active chemotherapy regimen currently with oxaliplatin and 5-FU therapy and history of multiple regions of radiation therapy who presents with a week history of abdominal pain. There is physical exam is unremarkable for an acute abdomen he does have some mild abdominal pain. His pain is out of proportion to his tenderness. His laboratory data is indeterminate with a normal hemogram normal be MP. He has some mild thrombocytopenia. Imaging is significant for a segment of small bowel wall thickening of concern. I suspect that the etiology of his pain is related to the thickened segment of small bowel. Differential is broad including nonspecific ileitis, segment of radiation ileitis or metastasis. I do not see any actionable findings tonight except for treatment for comfort for his pain and if any in any nausea. Feel a PET scan would provide the most information for possible evidence of further metastatic disease. Plan: 1 (symptomatic relief with hydromorphone and as needed ondansetron 2. Serial exams 3) monitor if worsening reevaluate. If static or improves neck step would be PET scan. 4) follow-up with his local oncologist 5) DVT prophylaxis with enoxaparin 6) CODE STATUS is full Note patient was interviewed and examined tonight by telemedicine assisted at the bedside by the nurse. Camera time [id number]
[2023-07-27] MEDS: MELATONIN 3 MG TABLET PO (01:56)
[2023-07-27] MEDS: HYDROmorphone 0.5 mg/0.5 ml inj IVP ×2 (02:13→08:05)
[2023-07-27 03:00] VITALS: BP 136/108; PULSE 99; RESP 16; TEMP 36.3; O2SAT 94
[2023-07-27 07:00] VITALS: BP 164/119; PULSE 103; RESP 16; TEMP 36.1; O2SAT 96
--- NOTE | 2023-07-27 07:04 | PC.NURSE ---
Arrived to the floor at 2330. Rating abd pain 4-7/10. See eMAR for intervention. Ind in room. Tolerating clear liquid diet. Call light and personal items within reach.
[2023-07-27] MEDS: SODIUM CHLORIDE 0.9 % (FLUSH) 10 ML SYRINGE 5 ML IVF (08:06)
--- NOTE | 2023-07-27 12:56 | P.DS_ITS ---
DS: Providers Provider Date Seen: 07/27/23 Date of admission: 07/26/23 23:22 Primary care physician: Afsaneh Carlton MD Admitting Clinician: Marvin Wynn MD Attending Physician on discharge: MARGARET BUSTOS MD [facility] Date of Discharge: 07/27/23 DS: Diagnosis Discharge Diagnosis (1) Abdominal pain: Status: Acute Problem details: Patient will follow-up with oncology to determine the significance or workup needed for this small-bowel inflammation. I recommended a bland diet. [place] use of narcotics. Noted prescriptions were sent. (2) Adenocarcinoma of rectum, stage 4: Status: Acute Problem details: Noted. DS: Summary Hospital Course Hospital Course: HOSPITALIST DISCHARGE SUMMARY ATTENDING PHYSICIAN: Margaret Bustos MD FINAL DIAGNOSIS/FOLLOW UP ISSUES: Abdominal pain with known stage IV adenocarcinoma the colon BRIEF HOSPITAL COURSE: Luis is a 43-year-old who is currently being treated for stage IV colorectal cancer. He had new pain this week in his mid epigastrium. He managed did the best he could at home until the pain became too intense. He came in this weekend for acute abdominal pain. Small-bowel was noted to be inflamed on CT. His labs were otherwise unchanged. He was treated with pain control, which is IV Dilaudid 1-2 mg p.r.n. pain. He was requesting discharge and a return to his oral pain regimen with oral Dilaudid just a few hours after evaluation here. DISCHARGE MEDICATIONS: See Reconciled list - SIGNIFICANT CHANGES: None REVIEW OF SYSTEMS No new chest pain or dyspnea Pain mostly controlled No voiding difficulties Tolerating diet challenge PHYSICAL EXAM: CONSTITUTIONAL: Actually well appearing. Well nourished. VITAL SIGNS: see record. HEENT: Normocephalic, atraumatic. PERRL, EOMI, conjunctivae pink, no scleral icterus. Ears and nose externally normal. Pharynx normal. NECK: No JVD. No carotid bruit, no thyromegaly, no adenopathy. CHEST: Clear to auscultation bilaterally. HEART: S1 and S2 normal. Edema ABDOMEN: Minimally tender periumbilically. MUSCULOSKELETAL: No gross joint deformity or swelling. NEURO: Cranial nerves intact. Grossly intact. No asymmetric findings. SKIN: No rashes, petechiae, concerning changes PSYCHIATRIC: Mood euthymic. DISPOSITION: Home with spouse and son Time spent on discharge 37 minutes. Time Spent with Patient Time attestation: Total time spent providing and/or coordinating discharge services: Exam Const: Vital Signs, click to edit/add: Vital Signs - 24 hr 07/26/23 20:05 07/26/23 22:00 07/26/23 23:57 Temperature 98.7 F 97.0 F L Pulse Rate [Left P ulse Oximeter] 116 H 112 H Pulse Rate [Pulse Oximeter] 108 H Respiratory Rate 16 18 18 Blood Pressure [Le ft Arm] 156/114 H Blood Pressure [Ri ght Upper Arm] 172/116 H 176/117 H Pulse Oximetry 97 92 95 Oxygen Delivery Me thod Room Air Room Air Room Air 07/27/23 03:00 07/27/23 07:00 07/27/23 07:00 Temperature 97.4 F L 97.0 F L Pulse Rate [Left P ulse Oximeter] Pulse Rate [Pulse Oximeter] 99 103 H 103 H Respiratory Rate 16 16 16 Blood Pressure [Le ft Arm] 136/108 H 164/119 H Blood Pressure [Ri ght Upper Arm] Pulse Oximetry 94 96 Oxygen Delivery Me thod Room Air Room Air DS: Data Data Completed and Pending Labs on day of discharge: Labs from last 24 hours 07/26/23 07/26/23 21:21 20:20 WBC 4.58 RBC 4.85 Hgb 15.1 Hct 45.0 MCV 93 MCH 31 MCHC 34 RDW Coeff of [place] 14.4 Plt Count 102 L Neut % (Auto) 53.1 Lymph % (Auto) 23.1 [place] % (Auto) 21.2 H Eos % (Auto) 2.0 Baso % (Auto) 0.4 Neut # (Auto) 2.43 Lymph # (Auto) 1.06 [place] # (Auto) 1.00 H Eos # (Auto) 0.09 Baso # (Auto) 0.02 Abs Immat Gran (auto) 0.01 Imm/Tot Granulo (auto) 0.2 Sodium 136 Potassium 4.1 Chloride 102 Carbon Dioxide 24 Anion Gap 10 BUN 17 Creatinine 0.9 Estimated Creat Clear 107.02 Estimated GFR 107 Glucose 77 Calcium 9.6 Total Bilirubin 0.6 AST 53 H ALT 65 H Alkaline Phosphatase 127 Total Protein 7.4 Albumin 4.5 Amylase 72 Urine Color Yellow Urine Appearance Clear Urine pH 6.5 Ur Specific [place] 1.010 Urine Protein Negative Urine Glucose (UA) Negative Urine Ketones Negative Urine Blood Negative Urine Nitrite Negative Urine Bilirubin Negative Urine Urobilinogen 0.2 Ur Leukocyte Esterase Negative Discharge Plan Discharge Disposition: Home, Self-Care Date of Admission: 07/26/23 23:22 Attending Provider on Discharge: Margaret Bustos Primary Care Provider: Afsaneh Carlton Condition: Stable Anticipated Discharge Date/Time: 07/27/23 08:28 Discharge Medications: Continued olanzapine 5 mg tablet 5 mg PO DAILY MDD 1 tab Qty: 24 0RF Rx Instructions: Take 1 tab at bedtime daily days 1-4 post chemotherapy. Do not take with lorazepam. prochlorperazine maleate 10 mg tablet 10 mg PO TID Qty: 40 1RF Rx Instructions: Take first for chemotherapy related nausea. ondansetron 8 mg tablet,disintegrating 8 mg PO TID PRN (Reason: nausea and vomiting) Qty: 30 0RF Rx Instructions: Take for nausea 24-36 hours after chemotherapy for nausea not controlled with prochlorperazine (compazine) ibuprofen 600 mg tablet 600 mg PO Q8H PRN dexamethasone 4 mg tablet 4 mg PO QDAY Qty: 4 0RF Rx Instructions: Take 1 tab daily x 4 days with breakfast. acetaminophen 500 mg capsule 500 mg PO Q6H PRN amlodipine 5 mg tablet 5 mg PO DAILY ascorbic acid (vitamin C) 500 mg tablet 500 mg PO DAILY cholecalciferol (vitamin D3) 125 mcg (5,000 unit) capsule 5,000 unit PO DAILY cyanocobalamin (vitamin B-12) 1,000 mcg capsule 1,000 mcg PO DAILY omega 7-kbd-ouu-fish oil [Fish Oil] 1,000 mg (120 mg-180 mg) capsule 2 cap PO DAILY gabapentin 300 mg capsule 1,200 mg PO Q12H hydromorphone 2 mg tablet 2 mg PO Q4-6H PRN Lactobacillus acidophilus Capsule 1 cap PO DAILY melatonin 5 mg capsule 5 mg PO DAILY multivitamin Tablet 1 tab PO DAILY pantoprazole 40 mg tablet,delayed release (DR/EC) 40 mg PO DAILY kpsakuj-xsfg-hnokh-oreg-capryl 100 mg-150 mg- 50 mg-150 mg capsule 1 cap PO DAILY duloxetine [Cymbalta] 60 mg capsule,delayed release(DR/EC) 60 mg PO DAILY fluticasone propionate [24 Hour Allergy Relief] 50 mcg/actuation spray,suspension 2 spray intranasal DAILY PRN Hold Instructions: not taking Rx Instructions: administer into each nostril lorazepam 0.5 mg tablet 0.5 - 1 mg PO Q4H PRN (Reason: nausea and vomiting) Qty: 40 0RF potassium chloride 20 mEq tablet extended release 20 meq PO BID Qty: 14 3RF Discharge Orders: Discharge Order (Routine); Ordered 07/27/23 Ordered By: Margaret Bustos Patient Education: Abdominal Pain (DC) Activity Level: Activity as Tolerated and Other Discharge Diet: Low Fat/Low Cholesterol and Other Follow Up Appointments: [facility] [Provider Group] (already established) [facility] [Provider Group] (already established) Forms: [employer] Info Instructions
== END 2023-07-27 08:55 | disposition home or self-care (01) ==
LOC: ED 22:49 → MEDSURG 23:22
PROVIDERS: Admitting Provider Internal Medicine; Emergency Provider Internal Medicine; PCP Family Medicine; Visit Provider Internal Medicine
DX: R10.9 Unspecified abdominal pain (principal); C20 Malignant neoplasm of rectum; C78.7 Secondary malignant neoplasm of liver and intrahepatic bile duct; C78.00 Secondary malignant neoplasm of unspecified lung; C79.89 Secondary malignant neoplasm of other specified sites; G62.9 Polyneuropathy, unspecified; R00.0 Tachycardia, unspecified; K21.9 Gastro-esophageal reflux disease without esophagitis; D69.6 Thrombocytopenia, unspecified; I10 Essential (primary) hypertension; K92.0 Hematemesis; R04.2 Hemoptysis; R63.4 Abnormal weight loss; K92.1 Melena; Z92.3 Personal history of irradiation; Z85.89 Personal history of malignant neoplasm of other organs and systems
CPT/HCPCS: 36415; 74177; 80053; 81003; 82150; 85025; 96361; 96374; 96375; 99283; 99284; 99285; A9270; G0378; J1170; J2405; J7030; Q9967

== ENCOUNTER 2023-07-28 08:36 | Outpatient (CLI) | payer BC, SELFPAY ==
--- NOTE | 2023-07-28 09:00 | CRLHL7_ITS ---
For Patients: As a result of the Century Cures Act, medical imaging exams and procedure reports are released immediately into your electronic medical record. You may view this report before your referring provider. If you have questions, please contact your health care provider. Indication: MALIGNANT NEOPLASM OF RECTUM, LUQ VISCERAL PAIN, HEMOPTYSIS, TACHYCARDIA, METS Technique: Post contrast CT chest. 75 cc Isovue 370 intravenous contrast. Please note that all CT scans at this facility use dose modulation, iterative reconstruction, and/or weight-based dosing when appropriate to reduce radiation dose to as low as reasonably achievable. Comparison: 05/06/2023 Findings: Post treatment changes regarding a mass in the liver again noted and unchanged. The visualized spleen is unremarkable. No adrenal lesion. No calcified gallstones. Incidental gallbladder fold in the gallbladder fundus. Soft tissue fullness within the right retroperitoneum in the aortocaval space just above the celiac artery, measuring 1.3 cm, mildly increased in conspicuity compared to the prior study. Increased soft tissue fullness of the subcarinal space and the right hilar region compared to the prior study. Also increased soft tissue density anterior to the trachea on the right. No pulmonary embolism. No pleural or pericardial effusion. Soft tissue density at the posterior aspect of the right upper lung is again noted, measuring 3.3 x 1.8 cm, unchanged from the prior study. Similar appearance of the right posterior 5th rib. Increased size of a lobular nodule within the right lower lobe measuring 13 millimeters compared to 9 millimeters on the prior study, series 4, image 56. Increased soft tissue component and size regarding a nodule within the right lower lobe measuring 1.2 cm, previously measuring 1.0 cm, series 4, image 58. Both of these nodules are well-visualized on the coronal reformatted images. Similar linear densities within the right lung base. Increased size of left lower lobe pulmonary nodule measuring 1.1 cm, previously measuring 9 millimeters, series 4, image 69. Increased size of other left-sided pulmonary nodules also noted including a left upper lobe nodule measuring 1.2 cm, previously measuring 9 millimeters, series 4, image 40. Additional left upper lobe nodule has increased in size on series 4, image 32. Impression: Progression of metastatic disease with increased size of multiple bilateral pulmonary nodules detailed above. Increased adenopathy in the mediastinum including the subcarinal space and right paratracheal space along with increased right hilar adenopathy. Similar appearance of the liver compared to the prior study. Increased adenopathy in the right upper abdominal retroperitoneal space. Please note that all CT scans at this facility use dose modulation, iterative reconstruction, and/or weight-based dosing when appropriate to reduce radiation dose to as low as reasonably achievable. Dictated by Nicolás Bull MD @ 07/28/2023 11:39:54 AM (Electronically Signed)
== END 2023-07-28 08:37 | disposition home or self-care (01) ==
LOC: CT 08:37
PROVIDERS: PCP Family Medicine; Visit Provider Clinical Nurse Specialist
DX: C20 Malignant neoplasm of rectum (principal); C34.91 Malignant neoplasm of unspecified part of right bronchus or lung; C34.92 Malignant neoplasm of unspecified part of left bronchus or lung
CPT/HCPCS: 71260; 99214; Q9967

== ENCOUNTER 2023-09-06 17:21 | Emergency (ER) | payer BC, SELFPAY ==
[2023-09-06] VITALS (31 sets, daily range): BP systolic 138–178; BP diastolic 94–123; PULSE 110–123; RESP 18; TEMP 36.7; O2SAT 93–98; BMI 26.5
--- NOTE | 2023-09-06 17:47 | ED.ABDPAIN ---
HPI - Abdominal Pain General Time Seen by Provider: 17:47 Date Seen: 09/06/23 Chief Complaint: Abdominal Pain Stated Complaint: abdominal pain, chest pain Time Seen by Provider: 09/06/23 17:47 Source: patient, RN notes reviewed and old records reviewed Mode of arrival: ambulatory Limitations: no limitations History of Present Illness HPI narrative: Luis is a 43-year-old male with known metastatic stage IV rectal adenocarcinoma followed by [place]. He is here with severe abdominal pain. He has had about 3 months of abdominal pain, he states it ties into his chest and back. He had abdominal imaging at [place] for this in July. He did have an EGD following that which was reportedly negative. He has had an ultrasound of his gallbladder which was reportedly negative at [place]. He did have a PET scan last week but the oncologist has not called him to go over this. Friday of this last week he was at [facility] and they did do a celiac nerve block. He reportedly has a node there. He feels that it helped for maybe part of the day, proximally 10 hours. Then the pain came back. He states he can not be completely sure that maybe he just was not having pain at that time. He notes if he will push on his epigastric area or his upper abdomen this will increase his pain. He describes it as a shooting sharp pain like lightning bolts. It does go into his back, it hurts with breathing. He will get some right arm discomfort at times. He feels his back and chest are connected with this epigastric pain. He does have some chronic right chest symptoms as he has had a open right thoracotomy before. He has oral Dilaudid at home and it is not really helping. His is tearful, feels like they are not getting to the bottom of this. She feels they are not ruling things out. We did pause and talk about what is been done, reviewed some of the things that have been ruled out by looking at some of the tests that they have had done. We specifically did discuss with the EGD that today obviously did not find any ulcers or gastritis, probably not any H pylori but I do not have the test result here to read. With a negative ultrasound of his gallbladder we did discuss that there is not any gallstone seen nor infectious or inflammatory changes of the gallbladder. We did review that dysfunction of the gallbladder has not completely been ruled out, HIDA scan could be considered but is not something that I can do out of the ER. She is seeking answers, did review with them that I can go back over lab work, make sure nothing is changed. His heart rate is elevated on presentation, he states that frequently is elevated like this. He is wondering about a chest x-ray. I did discuss with him prior to even coming in, did plan on getting a D-dimer seen that his heart rate was elevated. He could have some atypical presentation of venous thrombotic disease such as pulmonary emboli, possibly in the lower lungs manifesting in more epigastric pain. If his D-dimer is negative, I will certainly do a chest x-ray. He understands if his D-dimer is positive, we will be proceeding with chest CT imaging. Patient notes that he does do daily enemas for bowel control as he no longer has a rectum. He feels his bowels are managed adequately. He does admit that sometimes the narcotics do cause some issues but he does not believe that the pain is from any change in bowel habits at this time. MD elicited complaint: abdominal pain Related Data Home Medications Medication Instructions Recorded Confirmed Lactobacillus acidophilus 1 cap PO DAILY 05/16/22 06/24/23 acetaminophen 500 mg capsule 500 mg PO Q6H PRN 05/16/22 06/24/23 amlodipine 5 mg tablet 5 mg PO DAILY 05/16/22 06/24/23 ascorbic acid (vitamin C) 500 mg 500 mg PO DAILY 05/16/22 06/24/23 tablet cholecalciferol (vitamin D3) 125 5,000 unit PO DAILY 05/16/22 06/24/23 mcg (5,000 unit) capsule cyanocobalamin (vitamin B-12) 1,000 mcg PO DAILY 05/16/22 06/24/23 1,000 mcg capsule gabapentin 300 mg capsule 1,200 mg PO Q12H 05/16/22 06/24/23 hydromorphone 2 mg tablet 2 mg PO Q4-6H PRN 05/16/22 06/24/23 melatonin 5 mg capsule 5 mg PO DAILY 05/16/22 06/24/23 multivitamin 1 tab PO DAILY 05/16/22 06/24/23 omega 2-nhd-qbj-fish oil 1,000 mg 2 cap PO DAILY 05/16/22 06/24/23 (120 mg-180 mg) capsule (Fish Oil) pantoprazole 40 mg tablet,delayed 40 mg PO DAILY 05/16/22 06/24/23 release tumeric 100 mg-ronaldo 150 mg-olive 1 cap PO DAILY 05/16/22 06/24/23 50 mg-oreg 150 mg-caprylate capsule duloxetine 60 mg capsule,delayed 60 mg PO DAILY 08/19/22 06/24/23 release (Cymbalta) ibuprofen 600 mg tablet 600 mg PO Q8H PRN 09/30/22 06/24/23 fluticasone propionate 50 2 spray intranasal DAILY PRN 12/12/22 06/16/23 mcg/actuation nasal spray,suspension (24 Hour Allergy Relief) Previous Rx's Medication Instructions Recorded olanzapine 5 mg tablet 5 mg PO DAILY chemotherapy related 12/02/22 nausea #24 tabs ondansetron 8 mg disintegrating 8 mg PO TID PRN nausea and 12/02/22 tablet vomiting #30 tabs prochlorperazine maleate 10 mg 10 mg PO TID nausea or vomiting 12/02/22 tablet #40 tabs lorazepam 0.5 mg tablet 0.5 - 1 mg (1 - 2 x 0.5 mg) PO Q4H 01/08/23 PRN nausea and vomiting #40 tabs potassium chloride 20 mEq 20 meq PO BID #14 tabs 06/09/23 tablet,extended release dexamethasone 4 mg tablet 4 mg PO QDAY #4 tabs 07/18/23 hydromorphone 2 mg tablet 2 mg PO Q4-6H PRN pain #20 tabs 09/06/23 (Dilaudid) Allergies Allergy/AdvReac Type Severity Reaction Status Date / Time capecitabine Allergy Severe Chest Pain Verified 07/28/23 13:51 Review of Systems Status of ROS Reports: 6 or more systems reviewed and unremarkable except as noted in History and below [facility] Medical History Chronic pain disorder ?G89.4 - Chronic pain syndrome (ICD-10) Anxiety ?F41.9 - Anxiety disorder, unspecified (ICD-10) Neuroma of thoracic region ?D36.14 - Benign neoplasm of peripheral nerves and autonomic nervous system of thorax (ICD-10) Hyponatremia ?E87.1 - Hypo-osmolality and hyponatremia (ICD-10) Gastroenteritis ?K52.9 - Noninfective gastroenteritis and colitis, unspecified (ICD-10) Dehydration ?E86.0 - Dehydration (ICD-10) Acute coronary syndrome ?I24.9 - Acute ischemic heart disease, unspecified (ICD-10) Abdominal pain ?R10.9 - Unspecified abdominal pain (ICD-10) Fracture of proximal end of humerus ?S42.209A - Unspecified fracture of upper end of unspecified humerus, initial encounter for closed fracture (ICD-10) Coronary vasospasm ?I20.1 - Angina pectoris with documented spasm (ICD-10) Chest wall pain ?R07.89 - Other chest pain (ICD-10) Surgical History S/P radiation therapy ?Z92.3 - Personal history of irradiation (ICD-10) Social History Narrative: with children. 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 Enjoys [employer]. What is your current living situation?: I presently have a place to live Problems where you live: no known problems Problems where you live details: n/a In the past 12 months, utilities in danger of being shut off: no In past 12 months, lack of transportation kept you from medical appts, meetings, work, or getting things needed for daily living: no In the past 12 mos, have been you worried that your food would run out before you had money to buy more?: never true In the past 12 mos, the food you bought just didn't last and you didn't have money to buy more?: never true Highest level of school completed/degree received: Master's degree Smoking Status: Never smoker How often do you have a drink containing alcohol: monthly or less How many standard drinks containing alcohol do you have on a typical day: 1 or 2 AUDIT-C Alcohol total score: 1 Non-prescribed substance use: marijuana (any form) Caffeine: Yes (2 cups of coffee) How often does anyone, including family, friends and others, physically hurt you: never How often does anyone, including family, friends and others, insult or talk down to you: never How often does anyone, including family, friends and others, threaten you with harm: never How often does anyone, including family, friends and others, scream or curse at you: never service: No Exam Const: Vital Signs, click to edit/add: Vital Signs - 24 hr 09/06/23 17:25 09/06/23 17:39 09/06/23 17:40 Temperature 98.1 F Pulse Rate 111 H 112 H Pulse Rate [Right Pulse Oximeter] 120 H Respiratory Rate 18 Blood Pressure 162/111 H Blood Pressure [Ri ght Upper Arm] 140/94 H Pulse Oximetry 97 95 97 Oxygen Delivery Me thod Room Air 09/06/23 17:42 09/06/23 17:45 09/06/23 18:24 Temperature Pulse Rate 113 H 110 H Pulse Rate [Right Pulse Oximeter] Respiratory Rate Blood Pressure 167/115 H Blood Pressure [Ri ght Upper Arm] Pulse Oximetry 98 97 98 Oxygen Delivery Me thod Luis is a 43-year-old male that is alert, interactive, seems uncomfortable but is able to converse with me in speak in complete sentences. Pupils are actually about 5-6 mm, equal and round. Sclera clear, symmetrical facial function, speech is normal. Neck supple, no masses. Is able to sit up, lungs are clear, no tachypnea, no wheezing or crackles, normal air entry. CV is fast but regular, no murmur noted, normal S1 and S2. Abdomen with epigastric tenderness with some a guarding, no rebound, no organomegaly felt, no masses, abdomen is not distended, bowel sounds are normal. He was ambulatory into the ED of his own accord. Moving arms and legs, exam is nonfocal. He does have a port that nursing staff is already accessed. Documenting provider has reviewed patient's vital signs: yes Course Course ED Course: 43-year-old male with worsening of abdominal/epigastric pain that does radiate into his chest and back, associated with pleuritic changes. He is tachycardic but states this is baseline. Will consider cardiac, thromboembolic disease, potentially pulmonary manifestations. Will look at a lipase and review comprehensive metabolic panel, CBC, lipase. If labs are all stable and D-dimer is normal, he really needs to probably go back to his oncology team or primary care provider. If there are any changes, will order imaging accordingly. In the meantime, will give him 0.5 mg IV Dilaudid and 4 mg IV Zofran for pain control. Reevaluation(s) Time of Reevaluation #1: 18:39 Reevaluation #1: Nursing staff reports that patient's pain initially was improved but is now back, approximately about 30 minutes after the IV Dilaudid. We are still awaiting labs. Will order subsequent 0.5 mg IV Dilaudid for him. Time of Reevaluation #2: 18:54 Reevaluation #2: Patient did pull up his PET scan for me, he had does increasing lung, liver and bony metastases when compared to last year but stable from the 1 in July. Reviewed with him that his liver enzymes are elevated with the ALT at 3:10 a.m., was 07/26/2065. His AST is 135 and was 53 on July 26. His alkaline phosphatase is elevated at 259 and was normal at 1:27 a.m. on July 26. We are still awaiting his D-dimer. He may need further imaging, may need to talk to his care team more Oncology on-call or even perhaps GI at [facility] [place]. Time of Reevaluation #3: 19:49 Reevaluation #3: Updated patient that I am awaiting a call back from [facility]. He is doing fine at this time, pain controlled. He has dilaudid 2 mg tablets at home and 5 mg oxycodone tablets. He will do some THC gummies at bedtime to try to sleep sometimes. Additional Reevaluation(s): 9:25 p.m. just completed my conversation with patient. My partner Dr. Lew did speak with [facility] for me, I was conferring with [facility] on another patient that was unfortunately and stable and could not come to the phone. Dr. Farfan from [facility] recommended watching the LFTs, call his oncologist on Friday and increase his dilaudid, follow-up outpatient. I reviewed with Luis's that I actually have change my thoughts on imaging for him. I do not think he requires a chest x-ray. With his D-dimer being normal, do not feel that he needs chest CT PE protocol. We discussed the fact that we had not done any repeat abdominal imaging here, they actually do not want to do it as they feel it would be redone at [place] anyways. If his pain is progressively worsening, he may need to follow-up at [place] and he does understand that. He is almost out of dilaudid, given that he is a cancer patient with liver metastases and having increased pain, my plan is to give him 20 dilaudid tablets of the 2 mg to tide him over until he follows up. Consultations Consultation #1: Spoke with Katina ALDANA from [facility] regarding this patient; she will talk to [facility] and call back. Time: 19:35 Vital Signs Vital signs: Initial Vital Signs Temperature 98.1 F 09/06/23 17:25 Temperature Source Temporal Artery Scan 09/06/23 17:25 Pulse Rate 120 H 09/06/23 17:25 Respiratory Rate 18 09/06/23 17:25 Blood Pressure 140/94 H 09/06/23 17:25 Blood Pressure Mean 109 H 09/06/23 17:25 Blood Pressure Position Sitting 09/06/23 17:25 Pulse Oximetry 97 09/06/23 17:25 Oxygen Delivery Method Room Air 09/06/23 17:25 Vital Signs Temperature 98.1 F 09/06/23 17:25 Pulse Rate 120 H 09/06/23 17:25 Respiratory Rate 18 09/06/23 17:25 Blood Pressure 140/94 H 09/06/23 17:25 Pulse Oximetry 97 09/06/23 17:25 Oxygen Delivery Method Room Air 09/06/23 17:25 Temperature 98.1 F 09/06/23 17:25 Pulse Rate 110 H 09/06/23 17:45 Respiratory Rate 18 09/06/23 17:25 Blood Pressure 167/115 H 09/06/23 17:42 Pulse Oximetry 98 09/06/23 18:24 Oxygen Delivery Method Room Air 09/06/23 17:25 MDM - Abdominal Pain Lab Data Attestation: I reviewed the patient's lab results. Labs: Lab Results 09/06/23 09/06/23 09/06/23 Range/Units 16:51 17:48 17:51 WBC 4.18 L (4.50-11.00) K/uL RBC 4.88 (4.30-5.90) m/uL Hgb 14.5 (13.5-17.5) gm/dL Hct 43.6 (37.0-53.0) % MCV 89 (80-100) fL MCH 30 (26-34) pg MCHC 33 (32-36) gm/dL RDW Coeff of [place] 13.1 (11.5-15.5) % Plt Count 100 L (140-440) K/uL Neut % (Auto) 57.6 (42.0-72.0) % Lymph % (Auto) 19.4 L (20-44) % [place] % (Auto) 18.7 H (0.0-11.0) % Eos % (Auto) 3.6 (0.0-7.0) % Baso % (Auto) 0.5 (0.0-3.0) % Neut # (Auto) 2.40 (1.7-7.0) K/uL Lymph # (Auto) 0.80 L (0.90-2.90) K/uL [place] # (Auto) 0.80 (0.00-0.90) K/UL Eos # (Auto) 0.20 (0.00-0.50) K/uL Baso # (Auto) 0.00 (0.00-0.30) K/uL Abs Immat Gran (auto) 0.00 (0.00-0.30) K/uL Imm/Tot Granulo (auto) 0.2 % D-Dimer Quant (PE/DVT) < 0.27 (0.00-0.50) ug/ml VBG pH 7.447 H (7.32-7.43) VBG pCO2 37 L (40-50) mmHG VBG pO2 56.3 H (25-47) mmHG VBG HCO3 25 (21-28) mmol/L Sodium 135 (135-149) mmol/L Potassium 3.4 L (3.6-5.1) mmol/L Chloride 103 (96-114) mmol/L Carbon Dioxide 23 (20-32) mmol/L Anion Gap 9 (7-15) mEq/L BUN 16 (5-24) mg/dL Creatinine 0.7 (0.5-1.5) mg/dL Estimated Creat Clear 141.93 Estimated GFR 116 ml/min Glucose 72 (60-115) mg/dL Lactate 0.9 (0.5-1.9) mmol/L Calcium 9.2 (8.4-10.6) mg/dL Total Bilirubin 0.9 (0.1-1.5) mg/dL AST 135 H (12-35) U/L ALT 310 H (4-50) U/L Alkaline Phosphatase 259 H (40-150) U/L C-Reactive Protein 0.7 (0.5-1.0) mg/dL Total Protein 7.3 (6.0-8.3) g/dL Albumin 4.3 (3.3-5.0) g/dL Lipase 81 (23-300) U/L Urine Color (Yellow) Urine Appearance (Clear) Urine pH (5.0-8.5) Ur Specific [place] (1.000-1.030) Urine Protein (Negative) Urine Glucose (UA) (Negative) Urine Ketones (Negative) Urine Blood (Negative) Urine Nitrite (Negative) Urine Bilirubin (Negative) Urine Urobilinogen (0.2-1.0) Ur Leukocyte Esterase (Negative) Urine RBC (0-2) Urine WBC (0-5) Ur Squamous Epith Cells (None-Few) Urine Bacteria (None) Urine Mucus (None) POC Troponin I 0.01 (0.01-0.04) ng/ml 09/06/23 Range/Units 21:00 WBC (4.50-11.00) K/uL RBC (4.30-5.90) m/uL Hgb (13.5-17.5) gm/dL Hct (37.0-53.0) % MCV (80-100) fL MCH (26-34) pg MCHC (32-36) gm/dL RDW Coeff of [place] (11.5-15.5) % Plt Count (140-440) K/uL Neut % (Auto) (42.0-72.0) % Lymph % (Auto) (20-44) % [place] % (Auto) (0.0-11.0) % Eos % (Auto) (0.0-7.0) % Baso % (Auto) (0.0-3.0) % Neut # (Auto) (1.7-7.0) K/uL Lymph # (Auto) (0.90-2.90) K/uL [place] # (Auto) (0.00-0.90) K/UL Eos # (Auto) (0.00-0.50) K/uL Baso # (Auto) (0.00-0.30) K/uL Abs Immat Gran (auto) (0.00-0.30) K/uL Imm/Tot Granulo (auto) % D-Dimer Quant (PE/DVT) (0.00-0.50) ug/ml VBG pH (7.32-7.43) VBG pCO2 (40-50) mmHG VBG pO2 (25-47) mmHG VBG HCO3 (21-28) mmol/L Sodium (135-149) mmol/L Potassium (3.6-5.1) mmol/L Chloride (96-114) mmol/L Carbon Dioxide (20-32) mmol/L Anion Gap (7-15) mEq/L BUN (5-24) mg/dL Creatinine (0.5-1.5) mg/dL Estimated Creat Clear Estimated GFR ml/min Glucose (60-115) mg/dL Lactate (0.5-1.9) mmol/L Calcium (8.4-10.6) mg/dL Total Bilirubin (0.1-1.5) mg/dL AST (12-35) U/L ALT (4-50) U/L Alkaline Phosphatase (40-150) U/L C-Reactive Protein (0.5-1.0) mg/dL Total Protein (6.0-8.3) g/dL Albumin (3.3-5.0) g/dL Lipase (23-300) U/L Urine Color Yellow (Yellow) Urine Appearance Clear (Clear) Urine pH 5.5 (5.0-8.5) Ur Specific [place] 1.020 (1.000-1.030) Urine Protein Trace A (Negative) Urine Glucose (UA) Negative (Negative) Urine Ketones 1+ A (Negative) Urine Blood Negative (Negative) Urine Nitrite Negative (Negative) Urine Bilirubin Negative (Negative) Urine Urobilinogen 0.2 (0.2-1.0) Ur Leukocyte Esterase Negative (Negative) Urine RBC 0-2 (0-2) Urine WBC 0-2 (0-5) Ur Squamous Epith Cells Few (None-Few) Urine Bacteria None (None) Urine Mucus Few A (None) POC Troponin I (0.01-0.04) ng/ml ECG Data Attestation: I personally reviewed and interpreted this ECG as follows: (Sinus tachycardia, 117 beats per minute. QT corrected 468 milliseconds. No definitive ischemic change noted.) ECG interpretation date: 09/06/23 ECG interpretation time: 18:25 Discharge Plan Discharge Clinical Impression: Metastases to the liver, Adenocarcinoma of rectum, stage 4, Abdominal pain, epigastric Patient Disposition: Home, Self-Care Condition: Stable Additional Instructions: Take the dilaudid as prescribed, may need to take increased doses of this to help with her pain. Your liver functions should be rechecked, please ask your oncologist when they want these rechecked. You need to call your oncologist on Friday. If your pain is worsening and not controlled with the prescribed regimen, may need to seek re-evaluation. Activity Level: Activity as Tolerated Discharge Diet: Regular Prescriptions: New hydromorphone [Dilaudid] 2 mg tablet 2 mg PO Q4-6H PRN (Reason: pain) Qty: 20 0RF No Action olanzapine 5 mg tablet 5 mg PO DAILY MDD 1 tab Qty: 24 0RF Rx Instructions: Take 1 tab at bedtime daily days 1-4 post chemotherapy. Do not take with lorazepam. prochlorperazine maleate 10 mg tablet 10 mg PO TID Qty: 40 1RF Rx Instructions: Take first for chemotherapy related nausea. ondansetron 8 mg tablet,disintegrating 8 mg PO TID PRN (Reason: nausea and vomiting) Qty: 30 0RF Rx Instructions: Take for nausea 24-36 hours after chemotherapy for nausea not controlled with prochlorperazine (compazine) ibuprofen 600 mg tablet 600 mg PO Q8H PRN dexamethasone 4 mg tablet 4 mg PO QDAY Qty: 4 0RF Rx Instructions: Take 1 tab daily x 4 days with breakfast. acetaminophen 500 mg capsule 500 mg PO Q6H PRN amlodipine 5 mg tablet 5 mg PO DAILY ascorbic acid (vitamin C) 500 mg tablet 500 mg PO DAILY cholecalciferol (vitamin D3) 125 mcg (5,000 unit) capsule 5,000 unit PO DAILY cyanocobalamin (vitamin B-12) 1,000 mcg capsule 1,000 mcg PO DAILY omega 4-ivg-hhs-fish oil [Fish Oil] 1,000 mg (120 mg-180 mg) capsule 2 cap PO DAILY gabapentin 300 mg capsule 1,200 mg PO Q12H hydromorphone 2 mg tablet 2 mg PO Q4-6H PRN Lactobacillus acidophilus Capsule 1 cap PO DAILY melatonin 5 mg capsule 5 mg PO DAILY multivitamin Tablet 1 tab PO DAILY pantoprazole 40 mg tablet,delayed release (DR/EC) 40 mg PO DAILY qoyczjv-bycu-uxsuf-oreg-capryl 100 mg-150 mg- 50 mg-150 mg capsule 1 cap PO DAILY duloxetine [Cymbalta] 60 mg capsule,delayed release(DR/EC) 60 mg PO DAILY fluticasone propionate [24 Hour Allergy Relief] 50 mcg/actuation spray,suspension 2 spray intranasal DAILY PRN Hold Instructions: not taking Rx Instructions: administer into each nostril lorazepam 0.5 mg tablet 0.5 - 1 mg PO Q4H PRN (Reason: nausea and vomiting) Qty: 40 0RF potassium chloride 20 mEq tablet extended release 20 meq PO BID Qty: 14 3RF Follow Up/Referrals: Afsaneh Carlton MD [Primary Care Provider] - Stand Alone [facility]: [facility]
[2023-09-06 18:01] LABS: Lactate* 0.9 mmol/L (0.5-1.9)
[2023-09-06 18:01] LABS: Troponin, Point-of-Care* 0.01 ng/ml (0.01-0.04)
[2023-09-06 18:13] LABS: Basophils Percent Auto 0.5 % (0.0-3.0); Eosinophils Percent Auto 3.6 % (0.0-7.0); Hematocrit 43.6 % (37.0-53.0); Hemoglobin* 14.5 gm/dL (13.5-17.5); Immature Granulocytes Pct Auto 0.2 %; Lymphocytes Percent Auto 19.4 % (20-44); Mean Corpuscular HGB Conc 33 gm/dL (32-36); Mean Corpuscular Hemoglobin 30 pg (26-34); Mean Corpuscular Volume 89 fL (80-100); Monocytes Percent Auto 18.7 % (0.0-11.0); Neutrophils Percent Auto 57.6 % (42.0-72.0); Platelet Count* 100 K/uL (140-440); RDW Coefficient of Variation % 13.1 % (11.5-15.5); Red Blood Count 4.88 m/uL (4.30-5.90); White Blood Count* 4.18 K/uL (4.50-11.00)
[2023-09-06 18:15] LABS: Slide Review Reflex No
[2023-09-06 18:16] LABS: HCO3 VBG 25 mmol/L (21-28); PCO2 VBG 37 mmHG (40-50); PO2 VBG 56.3 mmHG (25-47); pH VBG 7.447 (7.32-7.43)
[2023-09-06 18:18] LABS: Albumin* 4.3 g/dL (3.3-5.0); Chloride* 103 mmol/L (96-114); Sodium* 135 mmol/L (135-149)
[2023-09-06 18:19] LABS: Potassium* 3.4 mmol/L (3.6-5.1)
[2023-09-06 18:20] LABS: Creatinine* 0.7 mg/dL (0.5-1.5); Est. Creatinine Clearance* 141.93; Estimated Glomerular Filt Rate 116 ml/min
[2023-09-06 18:21] LABS: Alkaline Phosphatase* 259 U/L (40-150); Anion Gap 9 mEq/L (7-15); Aspartate Amino Transferase* 135 U/L (12-35); Bilirubin Total* 0.9 mg/dL (0.1-1.5); Carbon Dioxide* 23 mmol/L (20-32); Lipase* 81 U/L (23-300); Total Protein* 7.3 g/dL (6.0-8.3)
[2023-09-06 18:22] LABS: Alanine Aminotransferase* 310 U/L (4-50); Blood Urea Nitrogen* 16 mg/dL (5-24); Calcium* 9.2 mg/dL (8.4-10.6); Glucose* 72 mg/dL (60-115)
[2023-09-06 18:24] LABS: C Reactive Protein* 0.7 mg/dL (0.5-1.0)
[2023-09-06] MEDS: HYDROmorphone 0.5 mg/0.5 ml inj IVP ×3 (18:33→21:58)
[2023-09-06] MEDS: ONDANSETRON 2 MG/ML inj 4 MG IVP (18:33)
[2023-09-06 18:38] LABS: D Dimer Quantitative* < 0.27 ug/ml (0.00-0.50)
[2023-09-06 21:13] LABS: Appearance Urine Clear (Clear); Bilirubin Urine Negative (Negative); Blood Urine Negative (Negative); Color Urine Yellow (Yellow); Glucose Urine Negative (Negative); Ketones Urine 1+ (Negative); Leukocyte Esterase Urine Negative (Negative); Nitrite Urine Negative (Negative); Protein Urine Trace (Negative); Urobilinogen Urine 0.2 (0.2-1.0); pH Urine 5.5 (5.0-8.5)
[2023-09-06 21:17] LABS: Mucus Urine Few; RBC Urine 0-2 (0-2); Squamous Epithelial Cell Urine Few (None-Few); WBC Urine 0-2 (0-5)
--- NOTE | 2023-09-06 21:57 | ED.NURSE ---
Pt's port was de-accessed with heparin 500 unit iinjection and bandaid was placed over port, small amount of bleeding after [place] needle was removed. Pt has no c/o of pain at this time.
== END 2023-09-06 21:51 | disposition home or self-care (01) ==
PROVIDERS: Emergency Provider Family Medicine; PCP Family Medicine
DX: C20 Malignant neoplasm of rectum (principal); C78.7 Secondary malignant neoplasm of liver and intrahepatic bile duct
CPT/HCPCS: 36415; 80053; 81001; 82803; 83605; 83690; 84484; 85025; 85379; 86140; 93005; 94761; 99284; J1170; J2405

== ENCOUNTER 2023-12-16 09:30 | Outpatient (RCR) | payer BC, SELFPAY ==
[2023-06-23 11:45] LABS: Appearance Urine Clear (Clear); Bilirubin Urine 1+ (Negative); Blood Urine Negative (Negative); Color Urine Dark yellow (Yellow); Glucose Urine Negative (Negative); Ketones Urine Trace (Negative); Leukocyte Esterase Urine Negative (Negative); Nitrite Urine Negative (Negative); Protein Urine 2+ (Negative); Specific Gravity Urine 1.025 (1.000-1.030); Urobilinogen Urine 0.2 (0.2-1.0)
[2023-06-23 11:55] LABS: Basophils Percent Auto 0.5 % (0.0-3.0); Eosinophils Percent Auto 1.6 % (0.0-7.0); Hematocrit 42.5 % (37.0-53.0); Hemoglobin* 14.1 gm/dL (13.5-17.5); Immature Granulocytes Pct Auto 0.5 %; Lymphocytes Percent Auto 20.1 % (20-44); Mean Corpuscular HGB Conc 33 gm/dL (32-36); Mean Corpuscular Hemoglobin 32 pg (26-34); Mean Corpuscular Volume 96 fL (80-100); Monocytes Percent Auto 15.9 % (0.0-11.0); Neutrophils Percent Auto 61.4 % (42.0-72.0); Platelet Count* 93 K/uL (140-440); RBC Urine 0-2 (0-2); RDW Coefficient of Variation % 15.2 % (11.5-15.5); Red Blood Count 4.45 m/uL (4.30-5.90); White Blood Count* 3.84 K/uL (4.50-11.00)
[2023-06-23 11:56] LABS: Slide Review Reflex No
[2023-06-23 11:57] LABS: Albumin* 4.1 g/dL (3.3-5.0); Chloride* 106 mmol/L (96-114)
[2023-06-23 11:58] LABS: Sodium* 136 mmol/L (135-149)
[2023-06-23 12:00] LABS: Alkaline Phosphatase* 96 U/L (40-150); Aspartate Amino Transferase* 42 U/L (12-35); Bilirubin Total* 0.6 mg/dL (0.1-1.5); Blood Urea Nitrogen* 13 mg/dL (5-24); Carbon Dioxide* 23 mmol/L (20-32); Creatinine* 0.8 mg/dL (0.5-1.5); Estimated Glomerular Filt Rate 111 ml/min; Total Protein* 6.7 g/dL (6.0-8.3)
[2023-06-23 12:01] LABS: Alanine Aminotransferase* 58 U/L (4-50); Calcium* 8.9 mg/dL (8.4-10.6); Glucose* 94 mg/dL (60-115)
[2023-06-24 09:26] LABS: Bilirubin Direct* 0.1 mg/dL (0.0-0.5)
[2023-06-24 09:27] VITALS: BP 127/87; PULSE 110; RESP 16; TEMP 36.5; O2SAT 95
[2023-06-24] MEDS: PALONOSETRON 0.25 MG/5 ML inj IV (10:53)
[2023-06-24] MEDS: dexAMETHasone 12 MG in 0.9 % SODIUM CHLORIDE 100 ml 100 ML 400 MG IVPB (10:53)
[2023-06-24] MEDS: FOSAPREPITANT 150 MG inj 150 MG in 0.9 % SODIUM CHLORIDE 250 ml 250 ML 790 MG IVPB (11:16)
[2023-06-24] MEDS: fluorouraciL 50 mg/ml INJ 870 MG IVP (14:03)
[2023-06-30 08:13] VITALS: BP 138/99; PULSE 119; RESP 18; TEMP 36.8; O2SAT 95
[2023-06-30 08:35] LABS: Basophils Percent Auto 0.3 % (0.0-3.0); Eosinophils Percent Auto 2.2 % (0.0-7.0); Hematocrit 40.8 % (37.0-53.0); Hemoglobin* 13.8 gm/dL (13.5-17.5); Immature Granulocytes Pct Auto 0.3 %; Lymphocytes Percent Auto 17.6 % (20-44); Mean Corpuscular HGB Conc 34 gm/dL (32-36); Mean Corpuscular Hemoglobin 32 pg (26-34); Mean Corpuscular Volume 93 fL (80-100); Monocytes Percent Auto 13.5 % (0.0-11.0); Neutrophils Percent Auto 66.1 % (42.0-72.0); Platelet Count* 71 K/uL (140-440); RDW Coefficient of Variation % 14.8 % (11.5-15.5); Red Blood Count 4.37 m/uL (4.30-5.90)
[2023-06-30 08:42] LABS: Slide Review Reflex No
[2023-06-30 08:58] LABS: Chloride* 105 mmol/L (96-114); Potassium* 3.8 mmol/L (3.6-5.1); Sodium* 136 mmol/L (135-149)
[2023-06-30 09:00] LABS: Creatinine* 0.8 mg/dL (0.5-1.5); Estimated Glomerular Filt Rate 111 ml/min
[2023-06-30 09:01] LABS: Alanine Aminotransferase* 59 U/L (4-50); Alkaline Phosphatase* 110 U/L (40-150); Aspartate Amino Transferase* 46 U/L (12-35); Bilirubin Total* 0.6 mg/dL (0.1-1.5); Blood Urea Nitrogen* 15 mg/dL (5-24); Calcium* 8.9 mg/dL (8.4-10.6); Carbon Dioxide* 25 mmol/L (20-32); Glucose* 132 mg/dL (60-115); Total Protein* 6.6 g/dL (6.0-8.3)
[2023-06-30] MEDS: GRANISETRON 1 MG/ML inj IVP (10:34)
[2023-06-30] MEDS: dexAMETHasone 10 MG in 0.9 % SODIUM CHLORIDE 100 ml 100 ML 404 MG IVPB (10:34)
[2023-06-30] MEDS: fluorouraciL 50 mg/ml INJ 870 MG IVP (12:34)
[2023-06-30] MEDS: SODIUM CHLORIDE 0.9 % (FLUSH) 10 ML SYRINGE IVF (13:00)
[2023-06-30] MEDS: HEPARIN 500 UNIT/5 ML SYRINGE IVF (13:00)
--- NOTE | 2023-06-30 14:36 | ONC.NURNOTE ---
Pt here for Leucovorin and 5FU push. VSS. Platelets 71,000. Pt denies any concerns. [employer] Operator discussed platelet level and treatment with Dr. Neff. Pt given 2 options from [place] : 1) hold chemo this week or 2) treat today, but would need to hold chemotherapy week of 07/07/23. Pt decided to receive treatment today and hold chemo next week. Orders written in chart. Pt verbalized understanding of plan of care.
[2023-07-14 08:13] VITALS: BP 138/86; PULSE 118; RESP 16; TEMP 35.6; O2SAT 94
[2023-07-14 08:30] LABS: Basophils Percent Auto 0.4 % (0.0-3.0); Eosinophils Percent Auto 2.6 % (0.0-7.0); Hematocrit 42.6 % (37.0-53.0); Hemoglobin* 14.2 gm/dL (13.5-17.5); Lymphocytes Percent Auto 22.4 % (20-44); Mean Corpuscular HGB Conc 33 gm/dL (32-36); Mean Corpuscular Hemoglobin 32 pg (26-34); Mean Corpuscular Volume 95 fL (80-100); Monocytes Percent Auto 18.1 % (0.0-11.0); Neutrophils Percent Auto 56.5 % (42.0-72.0); Platelet Count* 68 K/uL (140-440); RDW Coefficient of Variation % 15.6 % (11.5-15.5); Red Blood Count 4.49 m/uL (4.30-5.90); White Blood Count* 2.32 K/uL (4.50-11.00)
[2023-07-14 08:45] LABS: Chloride* 105 mmol/L (96-114); Potassium* 3.8 mmol/L (3.6-5.1); Sodium* 139 mmol/L (135-149)
[2023-07-14 08:47] LABS: Slide Review Reflex No
[2023-07-14 08:48] LABS: Alanine Aminotransferase* 67 U/L (4-50); Alkaline Phosphatase* 125 U/L (40-150); Anion Gap 8 mEq/L (7-15); Aspartate Amino Transferase* 59 U/L (12-35); Bilirubin Total* 0.8 mg/dL (0.1-1.5); Blood Urea Nitrogen* 13 mg/dL (5-24); Calcium* 9.4 mg/dL (8.4-10.6); Carbon Dioxide* 26 mmol/L (20-32); Creatinine* 0.8 mg/dL (0.5-1.5); Estimated Glomerular Filt Rate 111 ml/min; Glucose* 143 mg/dL (60-115); Total Protein* 6.7 g/dL (6.0-8.3)
[2023-07-14 08:49] LABS: Bilirubin Direct* 0.1 mg/dL (0.0-0.5)
--- NOTE | 2023-07-14 10:13 | ONC.NURNOTE ---
Plts. 07/14/28 68. Previous plts. 06/30 71. Denies any sign or symptoms of bleeding. Treatment held again today, per Celine Cooper APRN> Chronic back pain and rt rib. states has been getting steroid injections for a year with relief. Apt with Dr. Neff 08/04.
[2023-07-18 08:30] VITALS: BP 122/88; PULSE 120; RESP 14; TEMP 36.1; O2SAT 95
[2023-07-18 08:58] LABS: Basophils Percent Auto 0.7 % (0.0-3.0); Eosinophils Percent Auto 2.5 % (0.0-7.0); Hematocrit 43.4 % (37.0-53.0); Hemoglobin* 14.5 gm/dL (13.5-17.5); Lymphocytes Percent Auto 21.9 % (20-44); Mean Corpuscular HGB Conc 33 gm/dL (32-36); Mean Corpuscular Hemoglobin 32 pg (26-34); Mean Corpuscular Volume 95 fL (80-100); Monocytes Percent Auto 14.4 % (0.0-11.0); Neutrophils Percent Auto 60.5 % (42.0-72.0); Platelet Count* 76 K/uL (140-440); RDW Coefficient of Variation % 15.2 % (11.5-15.5); Red Blood Count 4.57 m/uL (4.30-5.90); White Blood Count* 2.78 K/uL (4.50-11.00)
[2023-07-18 08:59] LABS: Slide Review Reflex No
[2023-07-18 09:13] LABS: Albumin* 4.2 g/dL (3.3-5.0); Chloride* 103 mmol/L (96-114); Potassium* 3.9 mmol/L (3.6-5.1); Sodium* 137 mmol/L (135-149)
[2023-07-18 09:15] LABS: Creatinine* 0.8 mg/dL (0.5-1.5); Estimated Glomerular Filt Rate 111 ml/min
[2023-07-18 09:16] LABS: Alanine Aminotransferase* 78 U/L (4-50); Alkaline Phosphatase* 136 U/L (40-150); Anion Gap 8 mEq/L (7-15); Aspartate Amino Transferase* 61 U/L (12-35); Bilirubin Total* 0.8 mg/dL (0.1-1.5); Blood Urea Nitrogen* 10 mg/dL (5-24); Carbon Dioxide* 26 mmol/L (20-32); Glucose* 163 mg/dL (60-115); Total Protein* 6.9 g/dL (6.0-8.3)
[2023-07-18 09:17] LABS: Calcium* 9.5 mg/dL (8.4-10.6)
[2023-07-18] MEDS: SODIUM CHLORIDE 0.9 % (FLUSH) 10 ML SYRINGE IVF (09:40)
[2023-07-18] MEDS: HEPARIN 500 UNIT/5 ML SYRINGE IVF (09:40)
--- NOTE | 2023-07-18 09:44 | ONC.NURNOTE ---
Chronic Thoracic pain. states injections with relief. having one soon. new onset RUR and LUQ abd pain.x1wk. states black old blood in his sputum x3 days. no redness or sores. no bruising or other stated signs bleeding. plts 76 today. Celine vergara APRN aware and seeing pt.
--- NOTE | 2023-07-22 11:25 | PC.NURSE ---
Discussed pt's case with Celine Vazquez APRN. Pt removed from today's schedule due to new symptoms of LEFT abd pain that requires work up. Also of note, pt's platelets have been low. CT scan ordered per provider. Plan will be determined by those results. CINDY Berger will follow results as will [facility]. Pt's next treatment will need to be scheduled/re-scheduled at that time.
[2023-09-22 14:22] VITALS: BP 140/98; PULSE 124; RESP 16; TEMP 36.8; O2SAT 96
[2023-09-22 14:43] LABS: Basophils Percent Auto 0.5 % (0.0-3.0); Eosinophils Percent Auto 2.6 % (0.0-7.0); Hematocrit 41.5 % (37.0-53.0); Hemoglobin* 13.8 gm/dL (13.5-17.5); Lymphocytes Percent Auto 13.9 % (20-44); Mean Corpuscular HGB Conc 33 gm/dL (32-36); Mean Corpuscular Hemoglobin 30 pg (26-34); Mean Corpuscular Volume 89 fL (80-100); Monocytes Percent Auto 13.6 % (0.0-11.0); Neutrophils Percent Auto 69.4 % (42.0-72.0); Platelet Count* 89 K/uL (140-440); RDW Coefficient of Variation % 13.1 % (11.5-15.5); Red Blood Count 4.66 m/uL (4.30-5.90); White Blood Count* 3.82 K/uL (4.50-11.00)
[2023-09-22] MEDS: 0.9 % SODIUM CHLORIDE 1000 ml 1,000 ML IV (14:48)
[2023-09-22] MEDS: ONDANSETRON 2 MG/ML inj 8 MG IVP (14:51)
[2023-09-22 14:57] LABS: Slide Review Reflex No
[2023-09-22 15:03] LABS: Albumin* 4.2 g/dL (3.3-5.0); Chloride* 105 mmol/L (96-114); Potassium* 3.8 mmol/L (3.6-5.1); Sodium* 138 mmol/L (135-149)
[2023-09-22 15:06] LABS: Alanine Aminotransferase* 191 U/L (4-50); Alkaline Phosphatase* 335 U/L (40-150); Anion Gap 10 mEq/L (7-15); Aspartate Amino Transferase* 103 U/L (12-35); Bilirubin Total* 1.1 mg/dL (0.1-1.5); Blood Urea Nitrogen* 13 mg/dL (5-24); Carbon Dioxide* 23 mmol/L (20-32); Creatinine* 0.7 mg/dL (0.5-1.5); Est. Creatinine Clearance* 141.93; Estimated Glomerular Filt Rate 116 ml/min; Total Protein* 7.1 g/dL (6.0-8.3)
[2023-09-22 15:07] LABS: Calcium* 9.2 mg/dL (8.4-10.6)
[2023-09-22 15:45] LABS: Glucose* 94 mg/dL (60-115)
[2023-09-22] MEDS: HYDROmorphone 0.5 mg/0.5 ml inj 0.3 MG IVP (16:22)
[2023-09-22] MEDS: SODIUM CHLORIDE 0.9 % (FLUSH) 10 ML SYRINGE IVF ×2 (16:23→16:36)
[2023-09-22] MEDS: HEPARIN 500 UNIT/5 ML SYRINGE IVF (16:36)
--- NOTE | 2023-09-26 10:38 | URNOTE ---
Addendum entered by Agatha Estes RN 09/26/23 10:46: Auth Dates: 09/30/2023-06/16/2024 Original Note: Received request for prior auth for Irinotecan ([id number]), Vectibix ([id number]), Palonosetron ([id number]) and Emend ([id number]). Per Availity, prior authorization is not required for these medicaitons. Ref [id number]
[2023-09-29 09:23] LABS: Basophils Percent Auto 0.7 % (0.0-3.0); Eosinophils Percent Auto 5.3 % (0.0-7.0); Hematocrit 40.2 % (37.0-53.0); Hemoglobin* 13.3 gm/dL (13.5-17.5); Lymphocytes Percent Auto 12.3 % (20-44); Mean Corpuscular HGB Conc 33 gm/dL (32-36); Mean Corpuscular Hemoglobin 29 pg (26-34); Mean Corpuscular Volume 89 fL (80-100); Monocytes Percent Auto 10.2 % (0.0-11.0); Neutrophils Percent Auto 71.5 % (42.0-72.0); Platelet Count* 84 K/uL (140-440); RDW Coefficient of Variation % 13.3 % (11.5-15.5); Red Blood Count 4.54 m/uL (4.30-5.90); White Blood Count* 2.84 K/uL (4.50-11.00)
[2023-09-29 09:25] LABS: Slide Review Reflex No
[2023-09-29 09:37] LABS: Albumin* 3.9 g/dL (3.3-5.0); Chloride* 102 mmol/L (96-114)
[2023-09-29 09:38] LABS: Potassium* 3.5 mmol/L (3.6-5.1); Sodium* 136 mmol/L (135-149)
[2023-09-29 09:40] LABS: Anion Gap 9 mEq/L (7-15); Carbon Dioxide* 25 mmol/L (20-32); Creatinine* 0.6 mg/dL (0.5-1.5); Est. Creatinine Clearance* 165.59; Estimated Glomerular Filt Rate 121 ml/min
[2023-09-29 09:41] LABS: Alanine Aminotransferase* 148 U/L (4-50); Alkaline Phosphatase* 295 U/L (40-150); Aspartate Amino Transferase* 101 U/L (12-35); Blood Urea Nitrogen* 10 mg/dL (5-24); Calcium* 9.2 mg/dL (8.4-10.6); Glucose* 193 mg/dL (60-115); Total Protein* 6.7 g/dL (6.0-8.3)
[2023-09-30 09:43] VITALS: BP 137/94; PULSE 125; RESP 16; TEMP 36.8; O2SAT 95
[2023-09-30] MEDS: 0.9 % SODIUM CHLORIDE 250 ml IV (10:00)
[2023-09-30] MEDS: dexAMETHasone 10 MG in 0.9 % SODIUM CHLORIDE 100 ml 100 ML 420 MG IVPB (10:28)
[2023-09-30] MEDS: PALONOSETRON 0.25 MG/5 ML inj IV (10:28)
--- NOTE | 2023-09-30 10:34 | PC.NURSE ---
Pt present at [facility] for chemo. Upon doing exercise physiologist, pt reported his abdominal and back pain 7. Last oral Dilaudid was taken last evening. Pt didn't bring any of his home supply. RN discussed case with Dr. Neff. Received a verbal order for Dilaudid 2 mg orally x 1 to give now. MD also asked RN to encourage pt to follow closely with palliative care regarding his pain management and to keep a dose or two of PRN Dilaudid with him at all times to use as needed. RN communicated this. Pt appreciative. Support offered.
[2023-09-30] MEDS: HYDROmorphone 2 MG TABLET PO (10:39)
[2023-09-30] MEDS: FOSAPREPITANT 150 MG inj 150 MG in 0.9 % SODIUM CHLORIDE 250 ml 250 ML 780 MG IVPB (10:46)
[2023-09-30] MEDS: 5 % DEXTROSE 250 ML IV (12:15)
[2023-09-30] MEDS: SODIUM CHLORIDE 0.9 % (FLUSH) 10 ML SYRINGE IVF (14:03)
[2023-09-30] MEDS: HEPARIN 500 UNIT/5 ML SYRINGE IVF (14:03)
--- NOTE | 2023-10-01 16:22 | ONC.NURNOTE ---
Called Luis. states doing pretty well considering. enc him to call is issues like needing ivf
[2023-10-13 12:30] LABS: Eosinophils Percent Auto 5.1 % (0.0-7.0); Hematocrit 41.3 % (37.0-53.0); Hemoglobin* 13.5 gm/dL (13.5-17.5); Immature Granulocytes Pct Auto 0.5 %; Lymphocytes Percent Auto 25.8 % (20-44); Mean Corpuscular HGB Conc 33 gm/dL (32-36); Mean Corpuscular Hemoglobin 29 pg (26-34); Mean Corpuscular Volume 88 fL (80-100); Monocytes Percent Auto 17.7 % (0.0-11.0); Neutrophils Percent Auto 49.9 % (42.0-72.0); Platelet Count* 98 K/uL (140-440); RDW Coefficient of Variation % 13.3 % (11.5-15.5); Red Blood Count 4.68 m/uL (4.30-5.90)
[2023-10-13 12:40] LABS: Chloride* 104 mmol/L (96-114)
[2023-10-13 12:41] LABS: Potassium* 3.8 mmol/L (3.6-5.1); Sodium* 136 mmol/L (135-149)
[2023-10-13 12:43] LABS: Alkaline Phosphatase* 305 U/L (40-150); Anion Gap 7 mEq/L (7-15); Aspartate Amino Transferase* 68 U/L (12-35); Bilirubin Total* 0.7 mg/dL (0.1-1.5); Blood Urea Nitrogen* 11 mg/dL (5-24); Carbon Dioxide* 25 mmol/L (20-32); Creatinine* 0.6 mg/dL (0.5-1.5); Est. Creatinine Clearance* 165.59; Estimated Glomerular Filt Rate 121 ml/min; Total Protein* 6.7 g/dL (6.0-8.3)
[2023-10-13 12:44] LABS: Alanine Aminotransferase* 208 U/L (4-50); Glucose* 104 mg/dL (60-115); Magnesium* 1.9 mg/dL (1.5-2.6)
[2023-10-13 13:04] LABS: Slide Review Reflex Yes; White Blood Count* 1.98 K/uL (4.50-11.00)
[2023-10-13 13:05] LABS: Slide Review Acceptable Review (Acceptable)
[2023-10-14] MEDS: PALONOSETRON 0.25 MG/5 ML inj IV (13:08)
[2023-10-14] MEDS: dexAMETHasone 10 MG in 0.9 % SODIUM CHLORIDE 100 ml 100 ML 420 MG IVPB (13:08)
[2023-10-14] MEDS: 0.9 % SODIUM CHLORIDE 250 ml IV (13:09)
[2023-10-14] MEDS: SODIUM CHLORIDE 0.9 % (FLUSH) 10 ML SYRINGE IVF ×3 (13:09→16:29)
--- NOTE | 2023-10-14 13:12 | URNOTE ---
Addendum entered by Agatha Estes RN 10/14/23 13:17: effective dates 10/15/2023-01/15/2024 Original Note: Per Availity, Prior authorization is not required for Fulphilia ([id number]). REf #[id number]
[2023-10-14] MEDS: FOSAPREPITANT 150 MG inj 150 MG in 0.9 % SODIUM CHLORIDE 250 ml 250 ML 780 MG IVPB (13:25)
[2023-10-14] MEDS: 5 % DEXTROSE 250 ML IV (14:25)
[2023-10-14 15:33] VITALS: BP 120/79; PULSE 111; RESP 18; O2SAT 96
[2023-10-14] MEDS: HEPARIN 500 UNIT/5 ML SYRINGE IVF (16:29)
--- NOTE | 2023-10-14 16:47 | ONC.NURNOTE ---
At 1530, pt notified nursing of sudden onset of fatigue and nausea. VSS. Irinotecan stopped. Additional dose of atropine 0.25mg IV given. Celine Chappell APRN updated. Symptoms resolved approx 10 min after Atropine an Irinotecan restarted. Pt tolerated remainder of Irinotecan infusion.
[2023-10-15 15:37] VITALS: BP 119/78; PULSE 123; RESP 16; TEMP 36.6; O2SAT 99
[2023-10-15] MEDS: PEGFILGRASTIM-JMDB 6 MG/0.6 ML SYRINGE SUBCUT (15:44)
--- NOTE | 2023-10-15 16:10 | ONC.NURNOTE ---
Pt feeling well day after chemo; tolerated Fulphila well. Reviewed potential side effects, including bone aches with recommendation of Claritin and Tylenol to manage, as well as his current pain medicine regimen.
[2023-10-17] MEDS: 0.9 % SODIUM CHLORIDE 1000 ml 1,000 ML IV (08:00)
[2023-10-17] MEDS: dexAMETHasone 10 MG in 0.9 % SODIUM CHLORIDE 100 ml 100 ML 404 MG IVPB (08:31)
[2023-10-17] MEDS: SODIUM CHLORIDE 0.9 % (FLUSH) 10 ML SYRINGE IVF ×2 (08:32→09:46)
[2023-10-17] MEDS: HEPARIN 500 UNIT/5 ML SYRINGE IVF ×2 (08:32→09:45)
[2023-10-17 09:00] VITALS: BP 126/81; PULSE 102; RESP 16; TEMP 36.6; O2SAT 95
[2023-10-17] MEDS: ONDANSETRON 2 MG/ML inj 8 MG IVP (09:45)
[2023-10-22 08:22] VITALS: BP 118/84; PULSE 125; RESP 16; TEMP 36; O2SAT 98
[2023-10-22] MEDS: dexAMETHasone 10 MG in 0.9 % SODIUM CHLORIDE 100 ml 100 ML 404 MG IVPB (08:33)
[2023-10-22] MEDS: 0.9 % SODIUM CHLORIDE 1000 ml 1,000 ML IV (08:33)
[2023-10-22] MEDS: SODIUM CHLORIDE 0.9 % (FLUSH) 10 ML SYRINGE IVF ×2 (08:34→10:02)
[2023-10-22] MEDS: HEPARIN 500 UNIT/5 ML SYRINGE IVF (10:02)
[2023-10-27 13:27] LABS: Basophils Absolute Auto 0.03 K/uL (0.00-0.30); Basophils Percent Auto 0.4 % (0.0-3.0); Eosinophils Absolute Auto 0.03 K/uL (0.00-0.50); Eosinophils Percent Auto 0.4 % (0.0-7.0); Hematocrit 42.5 % (37.0-53.0); Immature Granulocytes Abs Auto 0.05 K/uL (0.00-0.30); Immature Granulocytes Pct Auto 0.6 %; Lymphocytes Percent Auto 9.4 % (20-44); Mean Corpuscular HGB Conc 33 gm/dL (32-36); Mean Corpuscular Hemoglobin 29 pg (26-34); Mean Corpuscular Volume 88 fL (80-100); Monocytes Percent Auto 9.4 % (0.0-11.0); Neutrophils Percent Auto 79.8 % (42.0-72.0); Platelet Count* 117 K/uL (140-440); RDW Coefficient of Variation % 15.4 % (11.5-15.5); Red Blood Count 4.82 m/uL (4.30-5.90); White Blood Count* 8.38 K/uL (4.50-11.00)
[2023-10-27 13:29] LABS: Slide Review Reflex No
[2023-10-27 13:40] LABS: Albumin* 4.1 g/dL (3.3-5.0)
[2023-10-27 13:41] LABS: Chloride* 101 mmol/L (96-114); Sodium* 135 mmol/L (135-149)
[2023-10-27 13:43] LABS: Anion Gap 9 mEq/L (7-15); Aspartate Amino Transferase* 107 U/L (12-35); Bilirubin Total* 0.9 mg/dL (0.1-1.5); Carbon Dioxide* 25 mmol/L (20-32); Creatinine* 0.5 mg/dL (0.5-1.5); Est. Creatinine Clearance* 198.71; Estimated Glomerular Filt Rate 128 ml/min
[2023-10-27 13:44] LABS: Alanine Aminotransferase* 286 U/L (4-50); Alkaline Phosphatase* 314 U/L (40-150); Blood Urea Nitrogen* 9 mg/dL (5-24); Glucose* 75 mg/dL (60-115); Total Protein* 6.8 g/dL (6.0-8.3)
[2023-10-27] MEDS: SODIUM CHLORIDE 0.9 % (FLUSH) 10 ML SYRINGE IVF (14:59)
[2023-10-27] MEDS: HEPARIN 500 UNIT/5 ML SYRINGE IVF (14:59)
[2023-10-29 09:03] VITALS: BP 125/84; PULSE 124; RESP 16; TEMP 36.7; O2SAT 97
[2023-10-29] MEDS: 0.9 % SODIUM CHLORIDE 250 ml IV (09:40)
[2023-10-29] MEDS: SODIUM CHLORIDE 0.9 % (FLUSH) 10 ML SYRINGE IVF ×2 (09:40→13:01)
[2023-10-29] MEDS: PALONOSETRON 0.25 MG/5 ML inj IV (09:50)
[2023-10-29] MEDS: dexAMETHasone 10 MG in 0.9 % SODIUM CHLORIDE 100 ml 100 ML 420 MG IVPB (09:50)
[2023-10-29] MEDS: FOSAPREPITANT 150 MG inj 150 MG in 0.9 % SODIUM CHLORIDE 250 ml 250 ML 780 MG IVPB (10:09)
[2023-10-29] MEDS: 5 % DEXTROSE 250 ML IV (11:08)
--- NOTE | 2023-10-29 12:42 | ONC.NURNOTE ---
Upon doing right of way cutter, pt shared that he has mouth sores. He requested Magic Mouthwash. Pt shares that he isn't particularly prone to getting cold sores or canker sores. Most of this mouth discomfort is on his tongue. RN looked in his mouth, no white on tongue. A sore was noted on the tip of his tongue. RN discussed with Celine Vazquez APRN. Magic Mouthwash called into pt's pharmacy.
[2023-10-29] MEDS: HEPARIN 500 UNIT/5 ML SYRINGE IVF (13:01)
[2023-10-30] MEDS: 0.9 % SODIUM CHLORIDE 1000 ml 1,000 ML IV (13:10)
[2023-10-30 13:30] VITALS: BP 123/84; PULSE 130; RESP 16; TEMP 36.1; O2SAT 97
[2023-10-30] MEDS: PEGFILGRASTIM-JMDB 6 MG/0.6 ML SYRINGE SUBCUT (13:44)
[2023-10-30] MEDS: dexAMETHasone 10 MG in 0.9 % SODIUM CHLORIDE 100 ml 100 ML 404 MG IVPB (13:44)
[2023-10-30] MEDS: HEPARIN 500 UNIT/5 ML SYRINGE IVF (13:44)
[2023-10-30] MEDS: SODIUM CHLORIDE 0.9 % (FLUSH) 10 ML SYRINGE IVF (13:44)
--- NOTE | 2023-10-30 14:00 | ONC.NURNOTE ---
increase reddness and rash on face , head and trunk. denies pain. saw a sweatband shaper yesturday. 1L ns, zofran and dex for nausea.
[2023-11-04] MEDS: 0.9 % SODIUM CHLORIDE 1000 ml 1,000 ML IV (14:00)
[2023-11-04 14:08] VITALS: BP 102/72; PULSE 121; RESP 16; TEMP 36.2; O2SAT 97
[2023-11-04] MEDS: SODIUM CHLORIDE 0.9 % (FLUSH) 10 ML SYRINGE IVF (14:19)
[2023-11-04] MEDS: ONDANSETRON 2 MG/ML inj 8 MG IVP (14:20)
[2023-11-04] MEDS: dexAMETHasone 10 MG in 0.9 % SODIUM CHLORIDE 100 ml 100 ML 400 MG IVPB (14:20)
[2023-11-04] MEDS: HEPARIN 500 UNIT/5 ML SYRINGE IVF (14:20)
[2023-11-07 13:51] VITALS: BP 116/74; PULSE 129; RESP 16; TEMP 35.9; O2SAT 96
[2023-11-07] MEDS: HEPARIN 500 UNIT/5 ML SYRINGE IVF (14:02)
[2023-11-07] MEDS: SODIUM CHLORIDE 0.9 % (FLUSH) 10 ML SYRINGE IVF (14:04)
[2023-11-07] MEDS: dexAMETHasone 10 MG in 0.9 % SODIUM CHLORIDE 100 ml 100 ML 404 MG IVPB (14:04)
[2023-11-07] MEDS: ONDANSETRON 2 MG/ML inj 8 MG IVP (14:14)
[2023-11-07] MEDS: 0.9 % SODIUM CHLORIDE 1000 ml 1,000 ML IV (14:15)
[2023-11-11 15:07] LABS: Basophils Percent Auto 0.3 % (0.0-3.0); Eosinophils Percent Auto 0.9 % (0.0-7.0); Hematocrit 40.3 % (37.0-53.0); Hemoglobin* 13.6 gm/dL (13.5-17.5); Immature Granulocytes Pct Auto 0.5 %; Lymphocytes Percent Auto 7.3 % (20-44); Mean Corpuscular HGB Conc 34 gm/dL (32-36); Mean Corpuscular Hemoglobin 30 pg (26-34); Mean Corpuscular Volume 88 fL (80-100); Monocytes Percent Auto 5.4 % (0.0-11.0); Neutrophils Percent Auto 85.6 % (42.0-72.0); Platelet Count* 117 K/uL (140-440); RDW Coefficient of Variation % 16.5 % (11.5-15.5); White Blood Count* 11.58 K/uL (4.50-11.00)
[2023-11-11 15:26] LABS: Bilirubin Direct* 0.1 mg/dL (0.0-0.5)
[2023-11-11 15:29] LABS: Slide Review Reflex No
[2023-11-11 17:18] LABS: Albumin* 3.6 g/dL (3.3-5.0); Chloride* 102 mmol/L (96-114)
[2023-11-11 17:19] LABS: Potassium* 3.3 mmol/L (3.6-5.1); Sodium* 136 mmol/L (135-149)
[2023-11-11 17:21] LABS: Alkaline Phosphatase* 416 U/L (40-150); Anion Gap 9 mEq/L (7-15); Aspartate Amino Transferase* 103 U/L (12-35); Bilirubin Total* 0.5 mg/dL (0.1-1.5); Carbon Dioxide* 25 mmol/L (20-32); Creatinine* 0.5 mg/dL (0.5-1.5); Est. Creatinine Clearance* 198.71; Estimated Glomerular Filt Rate 128 ml/min; Total Protein* 6.1 g/dL (6.0-8.3)
[2023-11-11 17:22] LABS: Alanine Aminotransferase* 307 U/L (4-50); Blood Urea Nitrogen* 9 mg/dL (5-24); Calcium* 8.5 mg/dL (8.4-10.6); Glucose* 101 mg/dL (60-115)
[2023-11-12 09:11] VITALS: BP 121/85; PULSE 127; RESP 16; TEMP 36.2; O2SAT 98
[2023-11-12] MEDS: dexAMETHasone 10 MG in 0.9 % SODIUM CHLORIDE 100 ml 100 ML 404 MG IVPB (11:04)
[2023-11-12] MEDS: 5 % DEXTROSE 250 ML IV (11:04)
[2023-11-12] MEDS: 0.9 % SODIUM CHLORIDE 250 ml IV (11:04)
[2023-11-12] MEDS: PALONOSETRON 0.25 MG/5 ML inj IV (11:04)
[2023-11-12 11:25] LABS: Magnesium* 1.7 mg/dL (1.5-2.6)
[2023-11-12] MEDS: FOSAPREPITANT 150 MG inj 150 MG in 0.9 % SODIUM CHLORIDE 250 ml 250 ML 510 MG IVPB (11:29)
[2023-11-12] MEDS: SODIUM CHLORIDE 0.9 % (FLUSH) 10 ML SYRINGE IVF (15:05)
[2023-11-12] MEDS: HEPARIN 500 UNIT/5 ML SYRINGE IVF (15:05)
[2023-11-13 14:19] VITALS: BP 132/89; PULSE 122; RESP 16; TEMP 37; O2SAT 99
[2023-11-13] MEDS: PEGFILGRASTIM-JMDB 6 MG/0.6 ML SYRINGE SUBCUT (14:27)
[2023-11-21 13:37] VITALS: BP 156/92; PULSE 102; RESP 16; TEMP 36.2; O2SAT 95
[2023-11-21 13:56] LABS: Basophils Percent Auto 0.4 % (0.0-3.0); Hematocrit 42.5 % (37.0-53.0); Hemoglobin* 13.8 gm/dL (13.5-17.5); Immature Granulocytes Pct Auto 0.6 %; Lymphocytes Percent Auto 6.9 % (20-44); Mean Corpuscular HGB Conc 33 gm/dL (32-36); Mean Corpuscular Hemoglobin 29 pg (26-34); Mean Corpuscular Volume 90 fL (80-100); Monocytes Percent Auto 5.5 % (0.0-11.0); Neutrophils Percent Auto 85.6 % (42.0-72.0); Platelet Count* 95 K/uL (140-440); RDW Coefficient of Variation % 17.3 % (11.5-15.5); Red Blood Count 4.71 m/uL (4.30-5.90); White Blood Count* 12.44 K/uL (4.50-11.00)
[2023-11-21] MEDS: 0.9 % SODIUM CHLORIDE 1000 ml 1,000 ML IV (14:00)
[2023-11-21 14:01] LABS: Slide Review Reflex No
[2023-11-21 14:09] LABS: Albumin* 4.2 g/dL (3.3-5.0); Chloride* 101 mmol/L (96-114); Potassium* 3.4 mmol/L (3.6-5.1); Sodium* 134 mmol/L (135-149)
[2023-11-21 14:11] LABS: Anion Gap 9 mEq/L (7-15); Aspartate Amino Transferase* 73 U/L (12-35); Bilirubin Direct* 0.5 mg/dL (0.0-0.5); Carbon Dioxide* 24 mmol/L (20-32); Creatinine* 0.5 mg/dL (0.5-1.5); Est. Creatinine Clearance* 198.71; Estimated Glomerular Filt Rate 128 ml/min
[2023-11-21 14:12] LABS: Alanine Aminotransferase* 207 U/L (4-50); Alkaline Phosphatase* 470 U/L (40-150); Blood Urea Nitrogen* 10 mg/dL (5-24); Calcium* 8.9 mg/dL (8.4-10.6); Glucose* 154 mg/dL (60-115); Total Protein* 6.8 g/dL (6.0-8.3)
[2023-11-21] MEDS: dexAMETHasone 10 MG in 0.9 % SODIUM CHLORIDE 100 ml 100 ML 404 MG IVPB (14:27)
[2023-11-21] MEDS: ONDANSETRON 2 MG/ML inj 8 MG IV (14:28)
[2023-11-21] MEDS: HEPARIN 500 UNIT/5 ML SYRINGE IVF (15:21)
[2023-11-21] MEDS: SODIUM CHLORIDE 0.9 % (FLUSH) 10 ML SYRINGE IVF (15:21)
[2023-11-24 08:19] VITALS: BP 121/81; PULSE 126; RESP 16; TEMP 35.7; O2SAT 98
[2023-11-24 08:58] LABS: Magnesium* 1.9 mg/dL (1.5-2.6)
--- NOTE | 2023-11-24 09:14 | ONC.NURNOTE ---
color and face reddness and rash better. still body rash. seeing med surg nurse. states bowels weird. increase gas. having BMs. states nausea and vomiting is frustrating him. dilma po. ok to treat today per Sola AGUILAR. after reviewing his labs.
[2023-11-24] MEDS: PALONOSETRON 0.25 MG/5 ML inj IV (09:19)
[2023-11-24] MEDS: dexAMETHasone 10 MG in 0.9 % SODIUM CHLORIDE 100 ml 100 ML 404 MG IVPB (09:19)
[2023-11-24] MEDS: SODIUM CHLORIDE 0.9 % (FLUSH) 10 ML SYRINGE IVF (09:20)
[2023-11-24] MEDS: HEPARIN 500 UNIT/5 ML SYRINGE IVF (09:20)
[2023-11-24] MEDS: FOSAPREPITANT 150 MG inj 150 MG in 0.9 % SODIUM CHLORIDE 250 ml 250 ML 510 MG IVPB (09:40)
[2023-11-24] MEDS: 0.9 % SODIUM CHLORIDE 250 ml IV (09:41)
[2023-11-25 15:35] VITALS: BP 117/87; PULSE 125; RESP 18; TEMP 37.3; O2SAT 99
[2023-11-25] MEDS: PEGFILGRASTIM-JMDB 6 MG/0.6 ML SYRINGE SUBCUT (15:37)
[2023-11-26] MEDS: 0.9 % SODIUM CHLORIDE 1000 ml 1,000 ML IV (10:49)
[2023-11-26 10:51] VITALS: BP 124/75; PULSE 137; RESP 16; TEMP 36; O2SAT 99
[2023-11-26] MEDS: ONDANSETRON 2 MG/ML inj 8 MG IV (11:44)
[2023-11-26] MEDS: dexAMETHasone 10 MG in 0.9 % SODIUM CHLORIDE 100 ml 100 ML 404 MG IVPB (11:46)
[2023-12-08 08:48] LABS: Basophils Absolute Auto 0.04 K/uL (0.00-0.30); Basophils Percent Auto 0.6 % (0.0-3.0); Eosinophils Absolute Auto 0.12 K/uL (0.00-0.50); Eosinophils Percent Auto 1.7 % (0.0-7.0); Hematocrit 41.5 % (37.0-53.0); Hemoglobin* 13.5 gm/dL (13.5-17.5); Immature Granulocytes Abs Auto 0.02 K/uL (0.00-0.30); Immature Granulocytes Pct Auto 0.3 %; Mean Corpuscular HGB Conc 33 gm/dL (32-36); Mean Corpuscular Hemoglobin 30 pg (26-34); Mean Corpuscular Volume 91 fL (80-100); Monocytes Percent Auto 6.2 % (0.0-11.0); Neutrophils Percent Auto 84.2 % (42.0-72.0); Platelet Count* 98 K/uL (140-440); Red Blood Count 4.58 m/uL (4.30-5.90); White Blood Count* 6.97 K/uL (4.50-11.00)
[2023-12-08 08:50] LABS: Albumin* 3.9 g/dL (3.3-5.0); Chloride* 104 mmol/L (96-114); Potassium* 3.1 mmol/L (3.6-5.1); Slide Review Reflex No; Sodium* 135 mmol/L (135-149)
[2023-12-08 08:52] LABS: Creatinine* 0.6 mg/dL (0.5-1.5); Est. Creatinine Clearance* 165.59; Estimated Glomerular Filt Rate 121 ml/min
[2023-12-08 08:53] LABS: Alanine Aminotransferase* 126 U/L (4-50); Alkaline Phosphatase* 426 U/L (40-150); Anion Gap 8 mEq/L (7-15); Aspartate Amino Transferase* 72 U/L (12-35); Bilirubin Total* 1.2 mg/dL (0.1-1.5); Blood Urea Nitrogen* 6 mg/dL (5-24); Calcium* 8.7 mg/dL (8.4-10.6); Carbon Dioxide* 23 mmol/L (20-32); Glucose* 145 mg/dL (60-115); Magnesium* 1.5 mg/dL (1.5-2.6); Total Protein* 6.4 g/dL (6.0-8.3)
[2023-12-08] MEDS: PALONOSETRON 0.25 MG/5 ML inj IV (12:53)
[2023-12-08] MEDS: 0.9 % SODIUM CHLORIDE 250 ml IV ×2 (12:54→14:42)
[2023-12-08] MEDS: dexAMETHasone 10 MG in 0.9 % SODIUM CHLORIDE 100 ml 100 ML 404 MG IVPB (13:12)
[2023-12-08] MEDS: FOSAPREPITANT 150 MG inj 150 MG in 0.9 % SODIUM CHLORIDE 250 ml 250 ML 510 MG IVPB (13:31)
--- NOTE | 2023-12-08 14:07 | ONC.NURNOTE ---
follow up from today's visit with Sola Reyes PAC -oral potassium ordered- 40 meq po now and oral supplement sent to pharmacy -recheck K on - appt made --imaging pushed to [place] -CEA added to today's labs -requested that imaging from [facility] from Aug/Sep be pushed to [facility]
[2023-12-08] MEDS: SODIUM CHLORIDE 0.9 % (FLUSH) 10 ML SYRINGE IVF (14:42)
--- NOTE | 2023-12-08 14:50 | ONC.NURNOTE ---
Ok to treat. patient given mitchell 40mg po for low potassium. finishing up around 5pm
[2023-12-08] MEDS: POTASSIUM CHLORIDE 10 MEQ CAPSULE ER 40 MEQ PO (15:24)
[2023-12-09 15:50] VITALS: BP 133/76; PULSE 125; RESP 18; TEMP 36.1; O2SAT 98
[2023-12-09] MEDS: PEGFILGRASTIM-JMDB 6 MG/0.6 ML SYRINGE SUBCUT (15:56)
[2023-12-09 18:29] LABS: Carcinoembryonic Antigen 16.3 ng/mL (<=3.8)
[2023-12-11] MEDS: SODIUM CHLORIDE 0.9 % (FLUSH) 10 ML SYRINGE IVF ×2 (08:30→08:56)
[2023-12-11 08:48] VITALS: BP 118/80; PULSE 123; RESP 18; TEMP 36.4; O2SAT 98
[2023-12-11] MEDS: ONDANSETRON 2 MG/ML inj 8 MG IVP (08:49)
[2023-12-11] MEDS: dexAMETHasone 4 MG/ML VIAL IVP (08:49)
[2023-12-11] MEDS: 0.9 % SODIUM CHLORIDE 250 ml IV (08:49)
[2023-12-11] MEDS: HEPARIN 500 UNIT/5 ML SYRINGE IVF (08:55)
[2023-12-11 09:22] LABS: Chloride* 102 mmol/L (96-114); Sodium* 136 mmol/L (135-149)
[2023-12-11 09:23] LABS: Potassium* 3.3 mmol/L (3.6-5.1)
[2023-12-11 09:25] LABS: Creatinine* 0.5 mg/dL (0.5-1.5); Est. Creatinine Clearance* 198.71; Estimated Glomerular Filt Rate 128 ml/min
[2023-12-11 09:26] LABS: Anion Gap 9 mEq/L (7-15); Blood Urea Nitrogen* 7 mg/dL (5-24); Calcium* 8.7 mg/dL (8.4-10.6); Carbon Dioxide* 25 mmol/L (20-32); Glucose* 101 mg/dL (60-115); Magnesium* 1.4 mg/dL (1.5-2.6)
--- NOTE | 2023-12-11 10:39 | PC.NURSE ---
Called pt today after visit at [facility] to review labs. Before calling pt, discussed results with Celine Vazquez APRN [employer]. Potassium level 3.3, pt is taking oral K+ so RN instructed continued use of that supplement. Magnesium level 1.4. Pt advised to knot picker cloth some Mg Oxide and take 1 400 mg tablet once daily. RN directed pt to take at a time of day when not taking other meds. Pt verbalized understanding. Support offered.
[2023-12-15 13:40] VITALS: BP 130/89; PULSE 117; RESP 16; TEMP 36.4; O2SAT 100
[2023-12-15] MEDS: 0.9 % SODIUM CHLORIDE 1000 ml 1,000 ML IV (14:36)
[2023-12-15] MEDS: dexAMETHasone 10 MG in 0.9 % SODIUM CHLORIDE 100 ml 100 ML 404 MG IVPB (14:37)
[2023-12-15] MEDS: SODIUM CHLORIDE 0.9 % (FLUSH) 10 ML SYRINGE IVF ×2 (14:37→16:24)
[2023-12-15] MEDS: ONDANSETRON 2 MG/ML inj 8 MG IV (14:37)
[2023-12-15 15:05] LABS: Sodium* 136 mmol/L (135-149)
[2023-12-15 15:07] LABS: Chloride* 103 mmol/L (96-114)
[2023-12-15 15:08] LABS: Anion Gap 11 mEq/L (7-15); Calcium* 8.8 mg/dL (8.4-10.6); Carbon Dioxide* 22 mmol/L (20-32); Creatinine* 0.5 mg/dL (0.5-1.5); Est. Creatinine Clearance* 198.71; Estimated Glomerular Filt Rate 128 ml/min; Glucose* 102 mg/dL (60-115)
[2023-12-15] MEDS: POTASSIUM CHLORIDE 10 MEQ/100 ML PIGGYBACK 100 MEQ IVPB (15:22)
[2023-12-15] MEDS: HEPARIN 500 UNIT/5 ML SYRINGE IVF (16:24)
[2023-12-15 16:29] LABS: Blood Urea Nitrogen* 4 mg/dL (5-24); Potassium* 2.9 mmol/L (3.6-5.1)
[2023-12-15 16:30] LABS: Magnesium* 1.5 mg/dL (1.5-2.6)
--- NOTE | 2023-12-15 17:21 | ONC.NURNOTE ---
Pt here today reporting persistent diarrhea x 4-5 days; ~10x/daily watery brown stool. He is eating and drinking, but with even 1 sip water he is immediately up to the BR with liquid stool. He has frequent nausea/vomiting. He began oral K last but has been throwing up the pills the last [address] Neff; BMP, Mg drawn. Pt received standing order for 1L NS/IV Dex/IV Zofran. K 2.9. Reviewed with Dr. Neff; gave 10 mEq IV x 1 today. Pt to take 60-80mEq oral tonight at home; he is agreeable to this plan. Return to [facility] tomorrow for additional 40 mEq KCl IV with a recheck of K level following Abd US in the afternoon to space out recheck from KCl infusion. C Diff negative; recommended pt to Immodium around the clock to max dosing on box. Discussed with Dr. Neff whether Tx-related diarrhea vs infection/to be managed by PCP. At end of infusion he notes he feels hungry for the first time in several days. Pt agreeable to this plan. Pt is out of town Wed-Sat; sched to [facility] Mon 2 for labs/MD/Tx.
[2023-12-15 20:50] LABS: C.Difficile Negative (Negative); CDIFFEPI 027 Presumptive Negative (Negative)
[2023-12-16] MEDS: 0.9 % SODIUM CHLORIDE 250 ml IV (10:00)
[2023-12-16] MEDS: POTASSIUM CHLORIDE 10 MEQ/100 ML PIGGYBACK 100 MEQ IVPB ×4 (10:05→13:15)
[2023-12-16] MEDS: dexAMETHasone 10 MG in 0.9 % SODIUM CHLORIDE 100 ml 100 ML 410 MG IVPB (12:12)
[2023-12-16] MEDS: 0.9 % SODIUM CHLORIDE 1000 ml 1,000 ML IV (12:13)
[2023-12-16] MEDS: LOPERAMIDE HCL 2 MG CAPSULE PO (12:23)
[2023-12-16] MEDS: SODIUM CHLORIDE 0.9 % (FLUSH) 10 ML SYRINGE IVF (14:30)
[2023-12-16] MEDS: HEPARIN 500 UNIT/5 ML SYRINGE IVF (14:30)
[2023-12-19 19:55] LABS: Adenovirus PCR Not Detected; Astrovirus PCR Not Detected; Campylobacter PCR Not Detected; Cryptosporidium PCR Not Detected; Cyclospora cayetanensis PCR Not Detected; Entamoeba histolytica PCR Not Detected; Enteroaggregative E coli PCR Not Detected; Enteropathogenic E coli PCR Not Detected; Enterotoxigenic E coli PCR Not Detected; Giardia lamblia PCR Not Detected; Norovirus Gi/GII PCR Detected; Plesiomonas shig PCR Not Detected; Rotavirus A PCR Not Detected; Salmonella PCR Not Detected; Sapovirus PCR Not Detected; Shiga toxin E coli PCR Not Detected; Shigella/Enteroinvasive E coli Not Detected; Vibrio PCR Not Detected; Vibrio cholerae PCR Not Detected; Yersinia enterocolitica PCR Not Detected
== END 2023-12-17 07:55 | disposition home or self-care (01) ==
LOC: CCIC 09:30
PROVIDERS: Clinical Nurse Specialist; Internal Medicine Hematology & Oncology; Physician Assistant; PCP Family Medicine; Referring Provider Family Medicine; Visit Provider Internal Medicine Hematology & Oncology
DX: C20 Malignant neoplasm of rectum (principal); C78.7 Secondary malignant neoplasm of liver and intrahepatic bile duct; C78.01 Secondary malignant neoplasm of right lung; R19.7 Diarrhea, unspecified; G62.0 Drug-induced polyneuropathy; T45.1X5A Adverse effect of antineoplastic and immunosuppressive drugs, initial encounter; G89.4 Chronic pain syndrome; F41.9 Anxiety disorder, unspecified; D69.6 Thrombocytopenia, unspecified; E87.6 Hypokalemia; R74.01 Elevation of levels of liver transaminase levels; L70.8 Other acne; R10.829 Rebound abdominal tenderness, unspecified site; R11.2 Nausea with vomiting, unspecified; E83.42 Hypomagnesemia
CPT/HCPCS: 36415; 36591; 74177; 80048; 80053; 81003; 81015; 82248; 82378; 83735; 85025; 87493; 87505; 96360; 96361; 96365; 96366; 96368; 96372; 96376; 96411; 96413; 96415; 96417; 99211; 99212; 99214; 99215; G0463; A9270; J0461; J0640; J1100; J1170; J1453; J1626; J1642; J2405; J2469; J3480; J7030; J7050; J7120; J9035; J9190; J9206; J9263; J9303; Q5108; Q9967

== ENCOUNTER 2023-12-17 09:25 | Outpatient (RCR) | payer BC, SELFPAY ==
[2023-12-17 09:38] VITALS: BP 138/88; PULSE 109; RESP 16; TEMP 36.3; O2SAT 97
[2023-12-17] MEDS: SODIUM CHLORIDE 0.9 % (FLUSH) 10 ML SYRINGE IVF ×3 (09:45→16:45)
[2023-12-17] MEDS: 0.9 % SODIUM CHLORIDE 1000 ml 1,000 ML IV (09:50)
[2023-12-17 10:23] LABS: Chloride* 113 mmol/L (96-114); Sodium* 141 mmol/L (135-149)
[2023-12-17 10:26] LABS: Anion Gap 9 mEq/L (7-15); Carbon Dioxide* 19 mmol/L (20-32); Creatinine* 0.5 mg/dL (0.5-1.5); Estimated Glomerular Filt Rate 128 ml/min
[2023-12-17 10:27] LABS: Blood Urea Nitrogen* 5 mg/dL (5-24); Calcium* 8.9 mg/dL (8.4-10.6); Glucose* 98 mg/dL (60-115); Magnesium* 1.6 mg/dL (1.5-2.6)
[2023-12-17 10:36] LABS: Potassium* 2.9 mmol/L (3.6-5.1)
[2023-12-17] MEDS: POTASSIUM CHLORIDE 10 MEQ/100 ML PIGGYBACK 100 MEQ IVPB ×4 (12:25→15:39)
[2023-12-17] MEDS: 0.9 % SODIUM CHLORIDE 1000 ml 1,000 ML 600 ML IV (12:30)
[2023-12-17] MEDS: dexAMETHasone 10 MG in 0.9 % SODIUM CHLORIDE 100 ml 100 ML 400 MG IVPB (13:30)
[2023-12-17] MEDS: HEPARIN 500 UNIT/5 ML SYRINGE IVF (16:45)
[2023-12-18 09:54] VITALS: BP 132/90; PULSE 113; RESP 16; TEMP 35.9; O2SAT 100
[2023-12-18] MEDS: 0.9 % SODIUM CHLORIDE 1000 ml 1,000 ML 500 ML IV (10:13)
[2023-12-18 10:22] LABS: Potassium* 2.6 mmol/L (3.6-5.1)
[2023-12-18] MEDS: POTASSIUM CHLORIDE 10 MEQ/100 ML PIGGYBACK 100 MEQ IVPB ×6 (10:34→15:57)
--- NOTE | 2023-12-18 16:52 | ONC.NURNOTE ---
Patient arrived alone at 0930-potassium checked and at 2.6. Potassium 60meq's given with 1 litre NS Patient admits to not taking oral potassium stating it runs right through me,what's the point Is taking methadone/pantoprazole/melatonin/Imodium and Lomotil but no Dilaudid or any other meds. arrived and expressed concern asking if patient could be admitted. [employer] S[employer]ing Machine Operator spoke with Dr. romero and gave her an update and stated it was very appropriate for admission. Let patient know he'd have to go through the ED since provider unavailable to talk with house MD and do direct admission. They have a friend and plan to try and connect with them to make a smooth transition to Medical surgical floor. Patient complains of pain in rectal area from all the loose stools and has eaten and drank alot of fluids while here in [facility]. States it takes 12 minutes from consumption to bathroom to release it. Dr. Clements from med/surg over and plan is to do directly admit him to room 260. Dede charge nurse given verbal report. Port heparin locked
--- OUTSIDE RECORDS SUMMARY | 2023-12-18 17:25 | XMS_ITS | Clinical Summary ---
Author Name Unknown Organization [facility] Address [address] [place] [id number] Care Team Providers Care Veterinarian Name Role Phone Elsewhere, Pcp Primary Care Provider Unavailabl e Source Comments Patient records contain information from all sites at [facility]. For routine questions regarding patient records, call [phone] during business hours, M-F 8:00 AM - 5:00 PM Central Time. Record requests for emergency care only can be directed to [phone] at any time.[facility] Allergies Active Allergy Reactions Criticality Noted Date Comments Capecitabine Other (see comments) High 02/25/2022 VASCULAR HEART PALPATION Medications Medication Sig Dispensed Refills Start Date End Date Status multivitamin tablet Take 1 tablet by mouth daily. 0 Active nitroglycerin (NITROSTAT) 0.[address] 1 tablet (0.4 mg total) under the tongue every 5 (five) minutes as needed for chest pain. 25 tablet 12 05/28/20 18 Active ibuprofen (ADVIL,MOTRIN) 200 mg tablet Take 4 tablets (800 mg total) by mouth every 6 (six) hours as needed for pain. 0 08/24/20 18 Active Additional Information Patient taking differently: 600 mgoral Every 6 hours PRN, pain, Reported on 02/15/2022 cyanocobalamin (VITAMIN B12) 1,000 mcg tablet Take 1,000 mcg by mouth daily. 0 Active ascorbic acid, vitamin C, (VITAMIN C) 250 mg tablet Take 250 mg by mouth daily. 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 If ineffective, may repeat once after 30 minutes. 30 tablet 0 05/08/20 20 Active cholecalciferol (VITAMIN D3) 5,000 Unit capsule Take 5,000 Units by mouth daily. 0 Active acetaminophen (TYLENOL) 500 mg tablet Take 2 tablets (1,000 mg total) by mouth every 6 (six) hours as needed for moderate pain or score 4-6 of 10 or severe pain or score 7-10 of 10. 30 tablet 0 08/03/20 20 Active naloxone (Narcan) 4 mg/actuation nasal spray Administer 1 spray (4 mg total) into one nostril every 2 (two) minutes as needed (overdose). 1 each 0 06/12/20 21 Active LACTOBACILLUS ACIDOPHILUS ORAL Take 1 capsule by mouth daily. 0 Active docosahexaenoic acid/epa (FISH OIL ORAL) Take 2 tablets by mouth daily. 0 Active TURMERIC ORAL Take 1 tablet by mouth every morning. 0 Active amitriptyline 2%-ketamine 5%-lidocaine 5% in lipoderm Apply topically 3 (three) times a day. Apply to skin over right upper quadrant abdomen three times daily, as needed. 30 g 3 03/07/20 22 Active albuterol 90 mcg/actuation inhaler INHALE 1-2 PUFFS BY MOUTH EVERY 4 HOURS IF NEEDED FOR SHORTNESS OF BREATH OR WHEEZING (COUGH). 0 12/10/19 23 Active benzonatate (TESSALON PERLES) 100 mg capsule 100 mg every 4 (four) hours as needed. 0 12/05/19 23 Active erythromycin (ROMYCIN) 5 mg/gram (0.5 %) ophthalmic ointment APPLY 1 STRIP TO RIGHT EYE FOUR TIMES DAILY. 0 01/08/20 23 Active fluticasone propionate (FLONASE) 50 mcg/actuation nasal spray INHALE 2 SPRAYS TO BOTH NOSTRILS ONCE DAILY 0 12/10/19 23 Active potassium chloride (K-TAB) 20 mEq CR tablet Take 20 mEq by mouth 2 (two) times a day. 0 06/09/20 23 Active amLODIPine (NORVASC) 10 mg tablet TAKE 1 TABLET (10 MG TOTAL) BY MOUTH EVERY MORNING. 90 tablet 2 09/18/20 23 Active ondansetron ODT (ZOFRAN-ODT) 8 mg disintegrating tablet Dissolve 1 tablet (8 mg total) in the mouth every 8 (eight) hours as needed for nausea. See attached for detailed directions. 20 tablet 3 09/26/20 23 Active prochlorperazine (COMPAZINE) 10 mg tablet Take 1 tablet (10 mg total) by mouth every 8 (eight) hours as needed for nausea. 30 tablet 3 09/26/20 23 Active dexAMETHasone (DECADRON) 4 mg tablet Take 1 tablet (4 mg total) by mouth daily. Take in a.m. with food 30 tablet 3 09/26/20 23 Active omeprazole (PriLOSEC) [address] capsule Take 1 capsule (20 mg total) by mouth every morning before breakfast. 30 capsule 3 09/26/20 23 Active doxycycline monohydrate (MONODOX) 100 mg capsule Take 1 capsule (100 mg total) by mouth 2 (two) times a day before breakfast and dinner. 60 capsule 3 09/26/20 23 Active hydrocortisone (CORTAID) 1 % cream Apply 1 Application topically 2 (two) times a day. 30 g 3 09/26/20 23 Active HYDROmorphone (DILAUDID) 4 mg tabletIndications: Chronic Pain/Nonacute Pain Take 1-1.5 tablets (4-6 mg total) by mouth every 4 (four) hours as needed for pain Indication: Chronic Pain/Nonacute Pain. 60 tablet 0 09/26/20 23 Active OLANZapine (ZyPREXA) 5 mg tablet TAKE 1 TABLET (5 MG TOTAL) BY MOUTH AT BEDTIME. TAKE DAYS 1-4 AFTER CHEMOTHERAPY 72 tablet 1 10/22/20 23 Active clobetasoL (CLODAN) 0.05 % shampoo Lather onto scalp, leave on 5 minutes, and rinse. Use daily Fri-. 118 mL 3 10/28/20 23 Active hydrocortisone 2.5 % ointment Apply 1 Application topically 2 (two) times a day. Apply to affected areas of the face and groin twice daily Fri-. 30 g 3 10/28/20 23 Active triamcinolone (KENALOG) 0.1 % cream Apply 1 Application topically 2 (two) times a day as needed (Rash). Apply to affected areas of the body twice daily Fri-. 240 g 3 10/28/20 23 Active omega 4-vzn-vwn-fish oil 1,000 mg (120 mg-180 mg) capsule Take 2 capsules by mouth. 0 05/16/20 22 Active methadone dilution (DOLOPHINE) 0.5 mg/mL injection Take 5 mg by mouth. 0 09/30/20 23 Active HYDROmorphone (Dilaudid) 4 mg tablet Take 4 mg by mouth. 0 09/30/20 23 Active amLODIPine (NORVASC) 10 mg tablet Take 10 mg by mouth. Pt unsure about the dosage 0 09/26/20 23 Active dexAMETHasone (DECADRON) 0.5 mg tablet Take 4 mg by mouth. 0 09/29/20 23 Active ibuprofen (ADVIL,MOTRIN) 100 mg tablet Take 600 mg by mouth. 0 09/26/20 23 Active melatonin 1 mg tablet,chewable Chew 10 mg. 0 09/26/20 23 Active doxycycline (DORYX) 75 mg EC tablet Take 100 mg by mouth. 0 10/14/20 23 Active minocycline (DYNACIN) 100 mg tablet Take 100 mg by mouth 2 (two) times a day. 0 10/14/20 23 Active nitroglycerin (Nitrostat) 0.[address] 0.4 mg under the tongue. 0 09/26/20 23 Active pregabalin (LYRICA) 25 mg capsule Take 1 capsule (25 mg total) by mouth 2 (two) times a day for 5 days, THEN 2 capsules (50 mg total) 2 (two) times a day for 5 days, THEN 3 capsules (75 mg total) 2 (two) times a day for 5 days. 60 capsule 0 12/03/19 24 Active pregabalin (LYRICA) 100 mg capsule Take 1 capsule (100 mg total) by mouth 2 (two) times a day. Start after you finish the 25 capsule increase 60 capsule 2 12/03/19 24 024 Active methadone (DOLOPHINE) 5 mg tabletIndications: Chronic Pain/Nonacute Pain Take 0.5 tablets (2.5 mg total) by mouth 2 (two) times a day Indication: Chronic Pain/Nonacute Pain. 30 tablet 0 12/03/19 24 Active granisetron (KYTRIL) 1 mg tablet Take 1 tablet (1 mg total) by mouth every 12 (twelve) hours as needed for nausea or vomiting. 60 tablet 0 12/03/19 24 Active pantoprazole (PROTONIX) 40 mg EC tabletIndications: Malignant Neoplasm Of Rectum (HCC) take 1 tablet by mouth every day in the morning 90 tablet 1 12/10/19 24 Active melatonin 10 mg disintegrating tablet Take 10 mg by mouth at bedtime. 0 024 Discontinued(Du plicate order) pantoprazole (PROTONIX) 40 mg EC tabletIndications: Malignant Neoplasm Of Rectum (HCC) Take 1 tablet (40 mg total) by mouth every morning. 90 tablet 1 04/22/20 23 024 Discontinued methadone (DOLOPHINE) 5 mg tabletIndications: Chronic Pain/Nonacute Pain Take 0.5 tablets (2.5 mg total) by mouth 2 (two) times a day Indication: Chronic Pain/Nonacute Pain. 30 tablet 0 10/27/20 23 024 Discontinued doxycycline monohydrate (MONODOX) 100 mg capsule Take 100 mg twice daily with food and water. 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 Pulmonary Nodule Computed Tomography Indetermina te 09/27/2019 Nodules Pulmonary Multiple 09/10/2019 Takedown Ileostomy Status Post (Reversal) 2018 Ileostomy Status 12/04/2018 Overview: Added automatically from request for surgery [id number] Thrombocytopenia Drug Induced 12/02/2018 Follow Up Examination Postoperative Visit 2017 Complication Enterostomy 09/09/2018 Resection Rectum Status Post 08/21/2018 Ileostomy 08/21/2018 Education Need Ostomy 08/13/2018 Other Chest Pain 05/26/2018 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 on 05/11/2018 Overview: Overview: Colonoscopy 03/2018 rectal cancer, further evaluation at [facility] Resolved Problems Problem Noted Date Diagnosed Date Resolved Date Abdominal Pain 02/19/2022 02/19/2022 Myocardial Infarction Type 2 05/26/2018 05/27/2018 Overview: Capecitabine-induced coronary vasospasm Encounters Date Type Department Care Team Description 12/17/2023 Clinical Communication Department of Palliative Care in [address] [phone] Neela Siu, RRancho. 12/17/2023 Orders Only Pharmacy Prior Auth RO [phone] Xiomara Blood 12/16/2023 Orders Only [facility] - [place] [address] [place] [address] [place] [address] Dolores Khanna 12/10/2023 Refill Department of Oncology in [address] [phone] Giorgio Fishman M.D. Med Refill ( pantoprazole) 12/03/2023 1:15 PM [employer]SIDE [employer] Telemedicine Department of Palliative Care in [address] [phone] Catrachita Padilla M.D., M.S. Malignant Neoplasm Of Rectum (HCC) (Primary Dx); Pain Cancer Associated; Nausea; Palliative Care 12/01/2023 8:30 AM OUTSIDE PLANT ENGINEER Office Visit Division of Pain Medicine in [address] [phone] Sean Shen D.O. Pain Cancer Associated (Primary Dx) 11/26/2023 3:45 PM OUTSIDE PLANT ENGINEER Clinical Communication Virtual Review in [address] [address] 10/28/2023 10:40 AM OUTSIDE PLANT ENGINEER Comprehensive Visit Department of Dermatology in [address] [phone] Dakota Smith M.D. 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 Annie Mak L.I.C.S.W., M.S.W. Palliative Care (Primary Dx); Counseling Life Circumstance Problem 10/20/2023 8:30 AM [employer] PL[employer] ENGINEER Telemedicine Department of Palliative Care in [place], [place] [address] [place] [phone] Louisa Padilla, Rodrigo. GeovannaKari Neal APRN, C.N.P., D.N.P. Pain Cancer Associated (Primary Dx); Malignant Neoplasm Of Rectum (HCC); Pain Neuropathic; Pain Low Back Unspecified; Nausea And Vomiting; Constipation; Counseling Life Circumstance Problem; Palliative Care 10/20/2023 Refill Department of Oncology in [address] [phone] Kristi Dominique M.D. Med Change Request 10/14/2023 11:30 AM [facility] Clinical Communication Virtual Review in [address] [address] Pre-visit Intake 09/30/2023 Clinical Communication Division of Pain Medicine in [address] [phone] Marlon Garcia M.D. Nerve block response 09/29/2023 12:26 PM [employer]IDE [employer]ANT ENG[employer]ER - 09/29/2023 11:59 PM [employer]SIDE PLANT ENGINEER Hospital Encounter Division of Pain Medicine in [place], [place] [address] [place] [phone] Yassine Parekh M.D. Pain Chest Wall; Pain Neuropathic; Pain Post Thoracotomy Chronic Discharge Disposition: Home or Self Care 09/26/2023 1:00 PM [employer] Comprehensive Visit Department of Palliative Care in [place], [place] [address] [place] [phone] Giorgio Fishman M.D. Christensen, Kelly J, P.A.-C. Sunita Nguyen R.N. 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 09/26/2023 Orders Only Department of Oncology in [address] [phone] Kristi Dominique M.D. 09/25/2023 Orders Only Department of Oncology in [place], [place] [address] [place] [phone] Kristi Dominique M.D. 09/18/2023 3:05 PM CDT - 09/18/2023 11:59 PM CDT Hospital Encounter Department of Radiology, [facility], in [place], [place] [address] [place] [phone] Giorgio Fishman M.D. 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 Med Change Request (Med refill : Amlodipine besylate/) from Last 3 Months Immunizations Name Administration Dates Next Due SARS-COV-2 (COVID-19) - PFIZ ER (Discontinued)(12 years or older) 08/16/2021,02/27/2021,02/02/2021 Family History Medical History Relation Name Comments No Known Problems Father Diabetes Mother Mery Diabetes Mother's Brother 1 Diabetes Mother's Brother 2 Steve Diabetes Paternal Grandmother Kathy No Known Problems Sister No Known Problems Son Relation Name Status Comments Father Alive Maternal Grandfather Maternal Grandmother Mother Mery Alive Mother's Brother 1 Mother's Brother 2 Steve Paternal Grandfather Paternal Grandmother Kathy Sister Son Alive Social History Tobacco Use Types Packs/Day Years Used Date Smoking Tobacco: Never Smokeless Tobacco: Never Chew Tobacco Cessation:Counseling Given: Not Answered Alcohol Use Standard Drinks/Week Comments Yes 0 (1 standard drink = 0.6 oz pur e alcohol) 2 drinks per month Humiliation, Afraid, Rape, and Kick questionnair e Answer Date Recorded Within the last year, have y ou been afraid of your partner or ex-partner? No 02/03/2023 Within the last year, have y ou been humiliated or emotionally abused in other ways by your partner or ex-partner? No Within the last year, have y ou been kicked, hit, slapped, or otherwise physically hurt by your partner or ex-partner? No 02/03/2023 Within the last year, have y ou been raped or forced to have any kind of sexual activity by your partner or ex-partner? No 02/03/2023 Social Connection and Isolat ion Panel [NHANES] Answer Date Recorded In a typical week, how many times do you talk on the phone with family, friends, or neighbors? Once a week 02/03/2023 How often do you get togethe r with friends or relatives? Once a week 02/03/2023 How often do you attend chur ch or mormon services? Never 02/03/2023 Do you belong to any clubs o r organizations such as caodaism groups, unions, fraternal or athletic groups, or school groups? No 02/03/2023 How often do you attend meet ings of the clubs or organizations you belong to? More than 4 times per year 02/03/2023 Are you , , di vorced, , never , or living with a partner? 02/03/2023 AUDIT-C Answer Date Recorded Q1: How often do you have a drink containing alc ohol? 2-4 times a month 02/03/2023 Q2: How many drinks containi ng alcohol do you have on a typical day when you are drinking? 1 or 2 02/03/2023 Q3: How often do you have si x or more drinks on one occasion? Never 02/03/2023 Overall Financial Resource Strain (CARDIA) Answe r Date Recorded How hard is it for you to pa y for the very basics like food, housing, medical care, and heating? Not very hard 02/03/2023 PHQ-2 Answer Date Recorded PHQ-2 Score 0 04/25/2019 [facility] [place] [facility] Occupat ional Health - Occupational Stress Questionnaire Answer Date Recorded Do you feel stress - tense, restless, nervous, or anxious, or unable to sleep at night because your mind is troubled all the time - these days? Only a little 02/03/2023 Exercise Vital Sign Answer Date Recorde d On average, how many days pe r week do you engage in moderate to strenuous exercise (like a brisk walk)? 0 days 02/03/2023 On average, how many minutes do you engage in exercise at this level? 0 min 02/03/2023 Hunger Vital Sign Answer Date Recorded Within the past 12 months, y ou worried that your food would run out before you got the money to buy more. Never true 02/04/20 23 Within the past 12 months, t he food you bought just didn't last and you didn't have money to get more. Never true 02/03/2023 PRAPARE - Transportation Answer Date Re corded In the past 12 months, has l ack of transportation kept you from medical appointments or from getting medications? No 01/16 In the past 12 months, has l ack of transportation kept you from meetings, work, or from getting things needed for daily living? No 02/03/2023 Housing Stability Vital Sign Answer Shady e Recorded In the last 12 months, was t here a time when you were not able to pay the mortgage or rent on time? No 02/03/2023 In the last 12 months, how many places have you lived? 1 02/03/2023 In the last 12 months, was t here a time when you did not have a steady place to sleep or slept in a long term (including now)? No 02/03/2023 Nutrition Answer Date Recorded Nutrition: EVOO Fat Source No 02/03 On average, how many serving s of fruits and vegetables do you eat per day (serving size is equal to 1 cup or approximately the size of a tennis ball)? 0-1 02/03/2023 Dental Answer Date Recorded Dental: Regular Dentist Yes 02/16/20 Employment Answer Date Recorded Employment status Employed and actively working without restrictions 02/03/2023 Education Answer Date Recorded What is the highest level of school you have completed or the highest degree you have received? Master's degree (e.g., MA, MS, Ana Lilia, MEd, [employer]NAGER, [employer]) 02/15/2022 Sex and Gender Information Value Date Recorded Sex Assigned at Male 04/23/2018 1:23 PM CDT Gender Identity Male 04/23/2018 1:23 PM CDT Sexual Orientation Straight 04/23/2018 1: 23 PM CDT Last Filed Vital Signs Vital Sign Reading Time Taken Comments Blood Pressure 142/107 09/29/2023 1:51 PM [employer]IDE [employer]INE[employer] Pulse 110 09/29/2023 1:51 PM [employer]IDE PLANT ENGINEER Temperature 35 ??C (95 ??F) 09/29/2023 12:42 PM [employer]IDE PL[employer] ENGINEER Respiratory Rate 15 09/09/2023 2:28 PM CDT Oxygen Saturation 99% 09/29/2023 1:51 PM OUTSIDE PLANT ENGINEER Inhaled Oxygen Concentration - - Weight 88.1 kg (194 lb 3.6 oz) 09/09/2023 2:28 P M CDT Height 180.8 cm (5' 11.18) 09/09/2023 2:28 PM C DT Body Mass Index 26.95 09/09/2023 2:28 PM CDT Plan of Treatment Upcoming Encounters Date Type Department Care Team (Late st Contact Info) Description 12/23/2023 8:30 AM OUTSIDE PLANT ENGINEER Clinical Communication Virtual Review in [place], [place] [address] [place] [address] 12/24/2023 10:30 AM OUTSIDE PLANT ENGINEER Appointment Department of Radiology, [facility], in [place], [place] [address] [place] [phone] Noelle Reyes P.A.-C., P.A. [address] [place] [phone] 12/24/2023 11:00 AM OUTSIDE PLANT ENGINEER Lab Department of Infusion Therapy in [place], [place] [address] [place] [address] Noelle Reyes P.A.-C., P.A. [address] [place] [phone] 12/24/2023 2:15 PM [employer] ENG[employer] Office Visit Department of Palliative Care in [place], [place] [address] [place] [phone] Aylin Smith APRN, C.N.P., M.S.N. [address] [place] [phone] 12/24/2023 4:10 PM [employer]IDE PL[employer] ENGINEER Office Visit Department of Oncology in [place], [place] [address] [place] [phone] Ned Alegria M.D. [address] [place] [phone] Health Maintenance Due Date Last Done Comments CT Colonography 1978 Cologuard 1978 Colonoscopy 1978 Colorectal Cancer Surveillance 1978 Generalized Anxiety (REGINA-7) 1978 Hepatitis B Vaccines (1 of 3 - 3-dose series) 1978 Lipid (Cholesterol) Screening 1978 Pneumococcal vaccine (0-64 years) (1 of 2 - PCV) 1984 Zoster Vaccines (2 of 2) 07/20/2020 05/25/2020 COVID-19 Vaccine (4 - 2022-24 season) 2023 08/16/2021, 02/27/2021, 02/02/2021 Controlled Substance Agreement 09/26/2023 Controlled Substance Monitoring (PHQ-9) 09/26/2023 Controlled Substance Monitoring 09/26/2023 PEG assessment for Opioid therapy 09/26/2023 Opioid Use Disorder (OUD) Screening 09/27/2023 Depression Screening (Annual PHQ-2) 11/17/2023 Opioid Risk Tool (ORT) 09/26/2024 09/26/2023 Fasting Glucose for Diabetes Screening 09/09/2026 09/09/2023, 07/30/2023, 05/06/2023, Additional history exists DTaP,Tdap,and Td Vaccines (2 - Td or Tdap) 09/26/2026 09/26/2016 HIV Screening Completed 05/11/2018 Hepatitis C Screening Completed 05/11/2018 Influenza Vaccine Completed 08/21/2023, , 08/31/2020, Additional history exists Glucose Test for Med Monitoring Discontinued 09/09/2023, 07/30/2023, 05/06/2023, Additional history exists HPV Vaccines Aged Out No longer eligi ble based on patient's age to complete this topic Goals Goal Patient Goal Type Associated Problems Recent Progress Patient-Stated? Author Your pain? Symptom Management 9(11/20/2022 2:41 PM [employer]IDE [employer]ER) No Fee-Girma Bush, R.N., O.C.N. Note: 05/24/2021: Pain algorithm completed. [facility] 05/24/2021: Followup 06/07 via portal per patient preference. SYMPTOM MANAGEMENT PLAN Medication recommendations: Medications: Dillaudid as prescribed; Tylenol; Oxcycodone (instructed patient to notifiy provider of this historical medicaiton and use). Referral recommendations: Referrals: Not applicable Behavioral management: Behavioral: Sent my guide to cancer symptoms, Discussed logging symptoms and Recommended developing an action plan After discussion with the patient, the following action plan was created. Patient would like to try taking Dilaudid and tylenol on a schedule and log/track his symptoms. He plans to take 2 mg Dilaudid every 4 hours and tylenol every 6-8 hours on a schedule. If he has breakthrough pain, he plans to take another Dilaudid as needed per conversation with Dr. Fishman. He is aware that once he starts radiation, the intent is to help with the pain and anticipates that his need for medication may change. [facility] 06/07/2021: Pain rating over the past 7 days: 7/10 Recommendations at initial call and response: Mr. Tabares had a flare up of pain after initial assessment and spoke with Dr. Fishman. He was switched over to oxycodone and finds better relief with that. He is taking tylenol prn and states it helps. He is also starting radiation therapy on Friday to the ribcage area and is hopeful that will help Modifications needed for action plan?: No changes needed. Although Mr. Tabares is rating his pain on average 7/10 over the past week, he states he is satisfied taking the oxycodone, 5-10 mg, as prescribed and tylenol prn. Next steps: Mr. Tabares declines further followup at this time. He knows he can contact us again if needed. [employer] Implanted Type Area Rap Artist Device Identifier Shelf Expiration Date Model / Serial / Lot [employer] Seprafilm 5x6 - [id number] Implanted:Qty : 1 on 08/21/2018 by Jamin Huerta M.D. at [facility] Hardware e.g. pins/screws/[employer] [id number] / / Prt Cath Infus Mri 6f - [id number] Implanted:Qty : 1 on 04/05/2020 by Afsaneh Stephen M.D. at [facility] Implantable [employer] 06/16/2021 [id number] / / [id number] Explanted Type Area Rap Artist Device Identifier Shelf Expiration Date Model / Serial / Lot Prt Cath Infus Mri 8f - [id number] Implanted:Qty : 1 on 09/30/2018 by Afsaneh Stephen M.D. at [facility] Explanted:Qty : 1 on 03/15/2019 at [facility]/[employer] Implant[employer] 10/16/2019 [id number] / / [id number] Procedures Procedure Name Priority Date/Time Associated Diagnosis Comments OUTSIDE US BODY Routine 12/17/2023 11:05 AM OUTSIDE PLANT ENGINEER OUTSIDE CT BODY Routine 12/08/2023 11:00 AM OUTSIDE PLANT ENGINEER ECG Routine 10/28/2023 12:00 PM OUTSIDE PLANT ENGINEER Malignant Neoplasm Of Rectum (HCC) Pain Cancer Associated DERMATOLOGY IMAGE EXAM Routine 10/28/2023 12:00 AM OUTSIDE PLANT ENGINEER FL SPINE INTERCOSTAL INJECTION Routine 09/29/2023 1:50 PM OUTSIDE PLANT ENGINEER Pain Chest Wall Pain Neuropathic Pain Post Thoracotomy Chronic MR ABDOMEN MRCP WITHOUT AND WITH IV CONTRAST RAD - Routine (most inpatients and all outpatients) 09/18/2023 4:38 PM CDT Malignant Neoplasm Of Rectum (HCC) 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 If available, original interpretation can be found on the Media Tab in Chart Review, in Document Viewer, or as an image in QREADS. If a re-interpretation or overread is required please follow defined workflow. ?? Provider Not In System IMG US PROCEDURES Performing Organization Address [facility] de Phone Number IIMS NA * CT ABDOMEN PELVIS W CON-Outside CT Body (12/08/2023 11:00 AM OUTSIDE PLANT ENGINEER) 12/08/2023 11:0 0 AM OUTSIDE PLANT ENGINEER Narrative IIMS - 12/08/2023 2:27 PM OUTSIDE PLANT ENGINEER This order has been created and auto-finalized to support the import of outside images. If available, original interpretation can be found on the Media Tab in Chart Review, in Document Viewer, or as an image in QREADS. If a re-interpretation or overread is required please follow defined workflow. ?? Provider Not In System IMG CT PROCEDURES Performing Organization Address [facility] Co de Phone Number IIMS NA * ECG 12 Lead (10/28/2023 12:00 PM OUTSIDE PLANT ENGINEER) Ventricular Rate ECG/Min 118 BPM MUSE WI Interval 146 ms MUSE QRSD Interval 88 ms MUSE QT Interval 326 ms MUSE QTC Interval 456 ms MUSE P [place] 47 degrees MUSE R [place] 72 degrees MUSE T Wave [place] 32 degrees MUSE 10/28/2023 12:0 0 PM OUTSIDE PLANT ENGINEER 10/28/2023 12:09 PM OUTSIDE PLANT ENGINEER Impressions MUSE - 10/28/2023 12:09 PM OUTSIDE PLANT ENGINEER Sinus tachycardia Otherwise normal ECG When compared with ECG of 19-FEB-2022 08:11, No significant change was found Reviewed by HAROLDO Tracy Narrative Procedure Note Robert Recio M.D. - 10/28/2023 IMPRESSION: Sinus tachycardia Otherwise normal ECG When compared with ECG of 19-FEB-2022 08:11, No significant change was found Reviewed by HAROLDO Tracy Louisa Padilla P.A.-C. ECG ORDERABL ES Performing Organization Address [facility] Co de Phone Number MUSE NA * Entire Body-Dermatology Image Exam (10/28/2023 12:00 AM OUTSIDE PLANT ENGINEER) Narrative IIMS - 10/29/2023 8:29 AM OUTSIDE PLANT ENGINEER This order has been created and auto-finalized to support the import of images acquired without order. The clinical documentation to support these images can be found on the encounter that produced images. Provider Not In System IMG NON RAD IMAGI NG PROCEDURES Performing Organization Address [facility]/ZIP Co de Phone Number IIMS NA * FL Spine Intercostal Injection Right (09/29/2023 1:50 PM OUTSIDE PLANT ENGINEER) Narrative Marlon Garcia M.D. - 09/29/2023 1:00 PM OUTSIDE PLANT ENGINEER Marlon Garcia M.D. ? 09/29/2023 ??6:26 PM FL Spine Intercostal Injection Right Performed by: Marlon Garcia M.D. Authorized by: Yassine Parekh M.D. ?? Care team members present 1. Yareli Wiggins L.P.N. PROCEDURE SUMMARY Indications: Intractable pain Pre-procedural pain: 6/10 Post-procedural pain: 6/10 Site: thoracic Thoracic: intercostal nerve block Intercostal nerve block: Right T5 and Right T7 Needle or RF cannula: Spinal Needle size: 22 G Needle length: 2.5 in Patient position: prone IMAGING Fluoroscopic image guidance used to localize target, identify at risk structures, and dynamically used to direct therapy to the target. Image(s) acquired and saved. Ultrasound image guidance used to localize target, identify at risk structures, and dynamically used to direct therapy to the target. Image(s) acquired and saved. Ultrasound probe (MHz): linear mid-frequency Needle visualization: in-plane Needle approach: distal to proximal INJECTED MEDICATIONS The injected medication(s) listed was divided equally between the identified injection location(s) Total volume of injectate (mL): 7 Total steroid in injectate (mg): 10 ?? 3 mL BUPivacaine 0.5 % (5 mg/mL) 3 mL lidocaine 20 mg/mL 10 mg dexAMETHasone 10 mg/mL PROCEDURE DETAILS ?? Intercostal nerve block - thoracic: Under image guidance the needle was advanced down to each rib and then walked inferiorly and advanced another 1 to 2 mm. After negative aspiration, the contrast was injected and confirmed appropriate spread in the region of the intercostal nerves without evidence of intravascular or intrapleural uptake. The solution was injected into each site. The needle was then slightly withdrawn and flushed with local anesthetic as it was fully extracted from the skin. The exact same procedure was repeated at each aforementioned level, and there were no difficulties encountered. Postprocedure the patient denied any abrupt worsening of any cough, pleuritic pain, or shortness of breath and respiratory status was unchanged pre/post procedure. The patient tolerated the procedure well and there were no apparent complications. The patient was dismissed from the outpatient procedure center in stable condition. The patient was advised not to travel in an airplane within the next 24 hours. ? ADDITIONAL PROCEDURE COMMENTS The patient tolerated the procedure very well., had the anticipated block within the distribution of the right T5 and T7 intercostal nerve/s. ??Prior to the procedure I spent a fairly significant amount of time reviewing the patient's treatment and his location of pain. ??Mapped in the rhomboid/periscapular region as well as wrapping around anteriorly it did seem to correlate mostly with a T5-6 7 levels. ??He has had paravertebral blocks as well as a celiac plexus block with varying levels of success he is never had dedicated intercostal nerve blocks. ??As such this is what we elected to move forward with that today and this is performed under ultrasound. ??With placement of the injectate he reported reproduction of the pain wrapping anteriorly as the medications placed in both locations. ?? We reviewed that this would potentially be a location for peripheral nerve stimulation she will we agree to go down that pathway and we will pursue this moving forward. CONSENT Consent obtained: written (Risks, benefits and alternatives were discussed and a written Informed Consent was obtained. Please see Informed Consent form for further details.) UNIVERSAL PROTOCOL All relevant documentation and testing were reviewed and available. All required blood products, implants, devices and or special equipment were made available as applicable. Pre-procedure verification was conducted and the correct site was marked if required. A fire risk assessment was done as applicable. The procedural time-out to verify correct patient, correct side/site, and procedure was conducted prior to performing the procedure and confirmed in a procedural pause. PRE-PROCEDURE DETAILS Procedure purpose: therapeutic Appropriate hand hygiene, gown, cap, mask, protective eyewear, sterile gloves, skin preparation, sterile drape, and strict aseptic technique were utilized as applicable for the procedure: yes ?? Site preparation: chlorhexidine SEDATION / ANESTHESIA Anesthesia method: local infiltration Local infiltrate type: lidocaine ATTESTATION STATEMENT The teaching physician rule is not applicable. OPERATIVE NOTE INFORMATION Specimens: 0 Drains: 0 Estimated blood loss: 0 Implants: 0 Yassine Parekh M.D. FLUORO GUIDED PA IN PROCEDURES * MR Abdomen MRCP without and with IV Contrast (09/18/2023 4:38 PM CDT) Anatomical Region Laterality Modality Abdomen, Abdominal RST LOS, Abdominal ARZ LOS, Abdominal FLA LOS N/A Magnetic Resonance 09/19/2023 7:47 AM CDT Impressions 09/19/2023 8:03 AM CDT 1. Very slight interval increase in size multiple hepatic metastases. 2. Mild dilation of a few intrahepatic bile ducts in the right hepatic lobe, which may be due to obstruction from metastasis near the hepatic hilum. Narrative 09/19/2023 8:03 AM CDT EXAM: ??MR ABDOMEN MRCP WITHOUT AND WITH IV CONTRAST 3D maximum intensity projections/volume renderings were created on an independent workstation as ordered by the treating provider and reviewed by the radiologist for biliary and pancreatic duct visualization. COMPARISON: ??CT from 07/30/2023, PET/CT from 08/29/2023. FINDINGS: ??Multiple hepatic metastases (at least 5) slightly increased in size compared to the prior CT) FDG avid on the PET/CT from 08/29/2023. This includes a lesion in segment 6 measuring 1.5 cm (series 13 image 91), previously 1.3 cm. Additional lesions in segment 8 (series 13 image 40, 61, 68) and segment 5/6 (series 13 image 103) have also very slightly increased in size. Additional linear areas of hypoenhancement along the inferior margin of the prior ablation defect tract near the hepatic hilum and may represent hilar adenopathy (series 13 image 81). Multiple additional enlarged hilar and upper retroperitoneal lymph nodes, including a portal caval conglomerate measuring approximately 3.6 x 2.4 cm (series 13 image 85, series 17 image 141), previously measuring 3.4 x 1.5 cm. Mild dilation of a few intrahepatic bile ducts the right hepatic lobe (as seen on the postcontrast images, series 13 image 73-81). This may be secondary to obstruction from metastases near the hepatic hilum. Stable large post ablation change containing macroscopic fat in the right hepatic lobe. Normal spleen, pancreas, kidneys and adrenal glands. Procedure Note Augusto Cuenca M.D. - 09/19/2023 EXAM: MR ABDOMEN MRCP WITHOUT AND WITH IV CONTRAST 3D maximum intensity projections/volume renderings were created on anindependent workstation as ordered by the treating provider and reviewedby the radiologist for biliary and pancreatic duct visualization. COMPARISON: CT from 07/30/2023, PET/CT from 08/29/2023. FINDINGS: Multiple hepatic metastases (at least 5) slightly increased insize compared to the prior CT) FDG avid on the PET/CT from 08/29/2023.This includes a lesion in segment 6 measuring 1.5 cm (series 13 image 91),previously 1.3 cm. Additional lesions in segment 8 (series 13 image 40, 61, 68) and segment 5/6 (lncybp56 image 103) have also very slightly increased in size. Additional linearareas of hypoenhancement along the inferior margin of the prior ablationdefect tract near the hepatic hilum and may represent hilar adenopathy (series 13 image 81). Multipleadditional enlarged hilar and upper retroperitoneal lymph nodes, includinga portal caval conglomerate measuring approximately 3.6 x 2.4 cm ( image 85, series 17 image 141), previously measuring 3.4 x 1.5 cm. Mild dilation of a few intrahepatic bile ducts the right hepatic lobe (asseen on the postcontrast images, series 13 image 73-81). This may besecondary to obstruction from metastases near the hepatic hilum. Stable large post ablation change containing macroscopic fat in the righthepatic lobe. Normal spleen, pancreas, kidneys and adrenal glands. IMPRESSION: 1. Very slight interval increase in size multiple hepatic metastases. 2. Mild dilation of a few intrahepatic bile ducts in the right hepaticlobe, which may be due to obstruction from metastasis near the hepatichilum. Giorgio Fishman M.D. IMG MRI PROCEDURES from Last 3 Months Advance Directives For more information, please contact: [phone] Latest Code Status on File Code Status Date Activated Date Inactivated Comments Full Code 02/18/2022 4:39 PM 02/19/2022 1:12 PM Question Answer Comments Full Code: Discussed Code Status History Code Status Date Activated Date Inactivated Comments Full Code 07/31/2020 3:20 PM 08/03/2020 2:19 PM Question Answer Comments Full Code: Not Discussed Due to: Patient not available Full Code 07/31/2020 6:24 AM 07/31/2020 3:20 PM Question Answer Comments Full Code: Discussed Full Code 09/27/2019 4:51 PM 09/28/2019 3:58 PM Question Answer Comments Full Code: Not Discussed Due to: Patient not available Full Code 02/10/2019 11:02 AM 02/12/2019 2:58 PM Question Answer Comments Full Code: Discussed Care Teams Veterinarian Relationship Specialty Start Date End Date Elsewhere, Pcp PCP - General Internal Medicine 10/14/22
--- OUTSIDE RECORDS SUMMARY | 2023-12-18 17:25 | XMS_ITS | Clinical Summary ---
Author Name Unknown Organization [employer] [facility] Address [place], [place] [address] Care Team Providers Care Sales Marketing Director Name Role Phone Afsaneh Carlton MD Primary Care Provider Allergies Active Allergy Reactions Criticality Noted Date Comments Capecitabine Chest Pain High 02/25/2022 Medications Medication Sig Dispensed Refills Start Date End Date Status Cholecalciferol, Vitamin D3, 400 unit capsule Take 400 Units by mouth. 0 Active omega 9-fpq-ljw-fish oil 60-90-500 mg cap Take 1,000 mg by mouth. 0 Active multivitamin (MVI) tablet Take 1 tablet by mouth. 0 Active nitroglycerin (NITROSTAT) 0.[address] 0.4 mg under the tongue. 0 05/28/2018 Active acetaminophen (TYLENOL EXTRA STRGTH) 500 mg tablet Every 6 Hours as needed 0 Active loperamide (IMODIUM) 2 mg capsule TAKE 1 TO 2 CAPSULES TWICE DAILY, 2 CAPS EVERY MORNING AND EITHER 1 OR 2 CAPS IN THE EVENING 0 09/18/2018 Active HYDROmorphone (DILAUDID) 2 mg tabletIndications:Rec aime cancer (HC) Take 1 tablet by mouth every 4 hours if needed 12 tablet 0 10/01/2018 Active gabapentin (NEURONTIN) 300 mg capsule Take 1 capsule by mouth 3 times daily. 90 capsule 0 07/13/2019 Active cyanocobalamin (VITAMIN B12) 100 mcg tablet Take 1 tablet by mouth once daily. 30 tablet 0 07/13/2019 Active melatonin 3 mg tablet Take 1 tablet by mouth at bedtime. 30 tablet 0 07/13/2019 Active pantoprazole (PROTONIX) 40 mg delayed-release tablet Take 1 Tablet by mouth once daily. 0 09/24/2021 Active prochlorperazine (COMPAZINE) 10 mg tablet 0 07/02/2021 Active oxyCODONE (ROXICODONE) 5 mg immediate release tablet Take 5-10 mg by mouth every 4 hours if needed. 0 05/29/2021 Active OLANzapine (ZYPREXA ZYDIS) 5 mg disintegrating tablet PLEASE SEE ATTACHED FOR DETAILED DIRECTIONS 0 10/15/2021 Active LORazepam (ATIVAN) 0.5 mg tab Take 0.5 mg by mouth every 6 hours if needed. 0 05/08/2020 Active LACTOBACILLUS ACIDOPHILUS ORAL Take 1 Capsule by mouth once daily. 0 Active ascorbic acid, vitamin C, (VITAMIN C) 500 mg tablet Daily 0 Active benzonatate (TESSALON) 100 mg capsule TAKE 1 CAPSULE BY MOUTH THREE TIMES A DAY FOR COUGH 0 12/05/2022 Active DULoxetine (CYMBALTA) 60 mg Delayed-release capsule Take 60 mg by mouth once daily. 0 11/15/2022 Active ondansetron (ZOFRAN ODT) 8 mg disintegrating tablet PLEASE SEE ATTACHED FOR DETAILED DIRECTIONS 0 12/03/2022 Active traMADoL (ULTRAM) 50 mg tablet TAKE 1 TABLET EVERY 4 (FOUR) HOURS NEEDED FOR PAIN FOR UP TO 3 DAYS INDICATIONS: ACUTE PAIN. 0 02/27/2022 Active albuterol HFA (PRO-AIR; VENTOLIN; PROVENTIL) 90 mcg/actuation inhalerIndications:Co ugh, unspecified type Inhale 1-2 Puffs by mouth every 4 hours if needed for Shortness Of Breath or Wheezing (Cough). 1 Each 0 12/10/2022 Active fluticasone (50 mcg per actuation) nasal solution (FLONASE)Indications: Cough, unspecified type Inhale 2 Sprays to both nostrils once daily. 16 g 2 12/10/2022 Active erythromycin ophthalmic ointment 0.5%Indications:Horde olum externum of right lower eyelid Apply 1 Strip to right eye four times daily. 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/2020 Overview: Added automatically from request for surgery [id number] Malignant neoplasm metastatic to lung 03/30/2020 Other specified postprocedural states 02/10/2019 Drug-induced thrombocytopenia 12/02/2018 Other specified postprocedural states 08/21/2018 Status post ileostomy 08/21/2018 Overview: Added automatically from request for surgery [id number] 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 Rectal cancer 04/16/2018 Overview: Colonoscopy 03/2018 rectal cancer, further evaluation at [facility] Colonoscopy 06/2019 inflammatory nodule at surgical anastomosis, repeat in 3 years Resolved Problems Problem Noted Date Diagnosed Date Resolved Date Pseudopolyposis of colon wit hout complication, unspecified part of colon 12/28/2021 01/08/2023 Encounters Date Type Department Care Team Description 12/17/2023 Orders Only [facility] Scanner 1 scan: (1-Ord) [place], ABDOMEN LIMITED, 12/17/2023 12/08/2023 Orders Only [facility] Scanner 1 scan: (1-Ord) [place], CT ABDOMEN PELVIS W CON, 12/08/2023 11/14/2023 Refill [facility] [address] [place] [address] Afsaneh Carlton MD Refill Request (Amlodipine) from Last 3 Months Immunizations Name Administration Dates Next Due Influenza, IIV3 (Age >=3 years) 08/31/2018 Influenza, IIV4 08/30/2021,09/26/2016 Influenza, IIV4 (=>6mos) MDV 08/31/2020 Influenza, Whole Virus 08/28/2017 Tdap 09/26/2016 Zoster (Shingrix-RZV, recombinant) 05/25/2020 Family History Medical History Relation Name Comments Diabetes Father No Known Problems Mother No Known Problems Sister No Known Problems Son Relation Name Status Comments Father Alive Mother Alive Sister Alive Son Alive Social History Tobacco Use Types Packs/Day Years Used Date Smoking Tobacco: Former Smokeless Tobacco: Former Tobacco Cessation:Counseling Given: Yes Alcohol Use Standard Drinks/Week Comments Yes 0 (1 standard drink = 0.6 oz pur e alcohol) PHQ-2 Answer Date Recorded PHQ-2 Score 0 01/19/2019 Social Connections Answer Date Recorded Frequency of Communication with Friends and Fami ly Not on file 11/17/2021 Financial Resource Strain Answer Date R ecorded Difficulty of Paying Living Expenses Not on file 11/17/2021 Difficulty of Paying Living Expenses Not on file 11/17/2021 Sex and Gender Information Value Date Recorded Sex Assigned at Not on file Gender Identity Not on file Sexual Orientation Not on file Obstetrics History Last Filed Vital Signs Vital Sign Reading Time Taken Comments Blood Pressure 127/88 02/28/2023 1:52 PM CDT Pulse 130 02/28/2023 1:52 PM CDT Temperature 36.9 ??C (98.5 ??F) 02/28/2023 1:52 PM CD T Respiratory Rate - - Oxygen Saturation 96% 02/28/2023 1:52 PM CDT Inhaled Oxygen Concentration - - Weight 94.8 kg (209 lb) 02/28/2023 1:52 PM CDT Height 179 cm (5' 10.47) 10/01/2018 8:08 AM DONKEY ENGINE FIRER/FIREMAN Body Mass Index 29.59 10/01/2018 8:08 AM DONKEY ENGINE FIRER/FIREMAN Plan of Treatment Health Maintenance Due Date Last Done Comments Pneumococcal series for age 6-64 (1 of 2 - PCV) 1984 HIV for age 15-65 1993 Hepatitis C screening for ag e 18-79 1996 Depression screening for age 12+ 09/21/2019 09/21/2018, 09/16/2018, 05/16/2017 BMI (ht and wt on same day) for age 18+ 10/01/2019 10/01/2018, 09/21/2018, 09/16/2018, Additional history exists Colonoscopy through age 75 07/13/202207/13, 07/13/2019, 04/15/2018, Additional history exists Lipids for age 45-75 2023 COVID-19 vaccine series ( season) 2023 08/16/2021, 02/27/2021, 02/02/2021 Influenza for age 9-49 07/18/2023 , 08/31/2020, 08/31/2018, Additional history exists Tetanus booster 09/26/2026 09/26/2016 Tdap Completed 09/26/2016 Procedures Procedure Name Priority Date/Time Associated Diagnosis Comments SCAN-ULTRASOUND REPORT 12:00 AM DONKEY ENGINE FIRER/FIREMAN SCAN-CT INTERPRETATION 12:00 AM DONKEY ENGINE FIRER/FIREMAN from Last 3 Months Results * SCAN-ULTRASOUND REPORT (12/17/2023 12:00 AM DONKEY ENGINE FIRER/FIREMAN) Anatomical Region Laterality Modality Other Scanner OTHER * SCAN-CT INTERPRETATION (12/08/2023 12:00 AM DONKEY ENGINE FIRER/FIREMAN) Anatomical Region Laterality Modality Other Scanner OTHER from Last 3 Months Care Teams Sales Marketing Director Relationship Specialty Start Date End Date Afsaneh Carlton MD [address] [place] [address] PCP - General Family Practice 02/15/22
--- OUTSIDE RECORDS SUMMARY | 2023-12-18 17:25 | XMS_ITS | Encounter Summary ---
Author Name Unknown Organization [facility] Address [address] [place] [address] Care Team Providers Care Drafter Geological Name Role Phone Elsewhere, Pcp Primary Care Provider Unavailabl e Encounter Details Date Type Department Care Team (Late st Contact Info) Description 12/16/2023 Orders Only [facility] - [place] [address] [place] [address] [place] [phone] Dolores Khanna Social History Tobacco Use Types Packs/Day Years Used Date Smoking Tobacco: Never Smokeless Tobacco: Never Chew Alcohol Use Standard Drinks/Week Comments Yes 0 [...] often do you attend chur ch or druze services? Never 02/03/2023 Do you belong to any clubs o r organizations such as rastafarian groups, unions, fraternal or athletic groups, or [...] Answer Date Recorded PHQ-2 Score 0 04/25/2019 [facility] - Occupational Stress Questionnaire Answer Date Recorded [...] place to sleep or slept in a group home (including now)? No 02/03/2023 Nutrition Answer Date [...] degree (e.g., MA, MS, Ana Lilia, MEd, RESEARCH ASSOCIATE QUALITY CONTROL QC, GORDO) 02/15/2022 Sex and Gender Information Value Date Recorded Sex Assigned at Male 04/23/2018 1:23 PM CDT Gender Identity Male 04/23/2018 1:23 PM CDT Sexual Orientation Straight 04/23/2018 1: 23 PM CDT documented as of this encounter Plan of Treatment Upcoming Encounters Date Type Department Care Team (Late st Contact Info) Description 12/23/2023 8:30 AM TRENCH SHOVEL OPERATOR Clinical Communication Virtual Review in [place], [place] [address] [place] [address] 12/24/2023 10:30 AM TRENCH SHOVEL OPERATOR Appointment Department of Radiology, [facility], in [place], [place] [address] [place] [phone] Noelle Reyes P.A.-C., P.A. [address] [place] [phone] 12/24/2023 11:00 AM TRENCH SHOVEL OPERATOR Lab Department of Infusion Therapy in [place], [place] [address] [place] [phone] Noelle Reyes P.A.-C., P.A. [address] [place] [phone] 12/24/2023 2:15 PM TRENCH SHOVEL OPERATOR Office Visit Department of Palliative Care in [place], [place] [address] [place] [phone] Aylin Smith, CINDY, C.N.P., M.S.N. [address] [place] [phone] 12/24/2023 4:10 PM TRENCH SHOVEL OPERATOR Office Visit Department of Oncology in [place], [place] [address] [place] [phone] Ned Alegria M.D. [address] [place] [phone] documented as of this encounter Goals Goal Patient Goal Type Associated Problems Recent Progress Patient-Stated? Author Your pain? Symptom Management 9(11/20/2022 2:41 PM TRENCH SHOVEL OPERATOR) No Fee-Girma Bush, RCandidoN., O.C.N. Note: 05/24/2021: Pain algorithm completed. [facility] 05/24/2021: Followup 06/07 via portal per patient [...] that his need for medication may change. KFS 06/07/2021: Pain rating over the past 7 [...] can contact us again if needed. KFS documented as of this encounter Visit Diagnoses Not on filedocumented in this encounter Additional Health Concerns Assessment Noted Time PHQ-9 Depression Total Score: 7 05/26/20 18 10:22 PM CDT documented as of this encounter Care Teams Drafter Geological Relationship Specialty Start Date End Date Elsewhere, Pcp PCP - General Internal Medicine 10/14/22 documented as of this encounter
--- OUTSIDE RECORDS SUMMARY | 2023-12-18 17:25 | XMS_ITS ---
Author Name Unknown Organization [facility] Address [address] [place] [address] Care Team Providers Care Area Attendant Name Role Phone Unavailable Unavailable Unavailable Surgery Details Not on file Complications Check Surgery Details section. Procedure Estimated Blood Loss Check Surgery Details section. Procedure Findings Check Surgery Details section. Procedure Specimens Taken Check Surgery Details section.
--- OUTSIDE RECORDS SUMMARY | 2023-12-18 17:25 | XMS_ITS ---
Author Name Unknown Organization [facility] Address [address] [place] [address] Care Team Providers Care Position Classifier Name Role Phone Elsewhere, Pcp Primary Care Provider Unavailabl e Active Problems Problem Noted Date Diagnosed Date Palliative Care 10/23/2023 Abdominal Pain 02/19/2022 Secondary Malignant Neoplasm Liver 02/18/2022 Secondary Malignant Neoplasm Colon 07/13/2020 Overview: Added automatically from request for surgery [id number] Secondary Malignant Neoplasm Of Lung Laterality Unknown 03/30/2020 Pulmonary Nodule Computed Tomography Indetermina te 09/27/2019 Nodules Pulmonary Multiple 09/10/2019 Takedown Ileostomy Status Post (Reversal) 2018 Ileostomy Status 12/04/2018 Overview: Added automatically from request for surgery [id number] Thrombocytopenia Drug Induced 12/02/2018 Follow Up Examination [...] Colonoscopy 03/2018 rectal cancer, further evaluation at [facility] Current Oncology Plans Panitumumab / Irinotecan* Plan Start Date:09/25/2023 Plan Provider:Kristi Dominique M.D. Linked Problems Malignant Neoplasm Of Rectum (HCC) Treatment Medications Current Day (Pre-T reatment Tasks - Planned for 09/25/2023) Next Day (Day 1, Cycle 1 - Planned for 09/26/2023) irinotecan (CAMPTOSAR)panitumumab (VECTIBIX) No medications scheduled. 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 Past Plans Flushes/Hydration Plan Name Start Date Discontinue Date Treatment Medications Discontinue Reason Plan Provider VASCULAR ACCESS PATENCY - IMPLANTED VASCULAR ACCESS DEVICE (IVAD) VENOUS NON-VALVED 04/14/2020 03/21/2021 No medications scheduled. Therapy Complete - VASCULAR ACCESS PATENCY - IMPLANTED VASCULAR ACCESS DEVICE (IVAD) VENOUS NON-VALVED 12/02/2018 11/18/2019 No medications scheduled. Upgrade 2019 Therapy Plan Conversion - VASCULAR ACCESS PATENCY - PERIPHERAL INTRAVENOUS CATHETER AND RAPID INFUSION CATHETER 06/09/2018 12/02/2018 No medications scheduled. Unlisted - Hematology / Oncology Treatment 1 Plan Name Start Date Discontinue Date Treatment Medications Discontinue Reason Plan Provider Cycles Irinotecan / Bevacizumab 07/02/20 21 10/01/2022 bevacizumab-bvzr (ZIRABEV)bevacizumab- bvzr (ZIRABEV) IVPB Non-QS solutionfluorouraciL (ADRUCIL)irinotecan (CAMPTOSAR)irinotecan (CAMPTOSAR) IVPB in NaCl 0.9% 500 mL (CAMPTOSAR) Upgrade 2019 Therapy Plan Conversion Leopoldo Renteria P.A.-C., M.S. 5 of 12 cycles started FOLFIRI + Panitumumab ( Fluorouracil / Leucovorin / Irinotecan / Panitumumab ) 04/13/20 20 07/09/2021 irinotecan (CAMPTOSAR)irinotecan (CAMPTOSAR) IVPB in NaCl 0.9% 500 mL (CAMPTOSAR)panitumuma b (VECTIBIX)panitumumab (VECTIBIX) IVPB (VECTIBIX) Therapy Complete Giorgio Fishman M.D. 1 of 12 cycles started Capecitabine ( with Radiation ) ( GI ) 8 09/27/2018 capecitabine (XELODA) Not Tolerated Giorgio Fishman M.D. Treatment not started Hematology / Oncology Treatment 2 Plan Name Start Date Discontinue Date Treatment Medications Discontinue Reason Plan Provider Cycles Fluorouracil / Leucovorin weekly x 6 8 04/07/2020 fluorouraciL (ADRUCIL)leucov edmund IVPB in NaCl 0.9% 250 mL (20 mg/mL) Therapy Complete Tuan Yanez M.D. 1 of 1 cycle started Radiation Treatments * Plan Last Treated On Elapsed Days Fractions Treated Prescribed Fraction Dose Prescribed Total Dose [id number] 06/13/2021 2 3 of 3 1,200 cGy 3,600 cG y F1 Celiac LNs 09/20/2020 20 15 of 15 350 cGy 5,250 cGy F1 Mediastinm 09/20/2020 20 15 of 15 350 cGy 5,250 cGy F1_Rectum 07/01/2018 41 28 of 28 230 cGy 6,440 cGy Reference Point Last Treated On Elapsed Days Session Dose Total Dose [id number] 06/13/2021 2 1,200 cGy 3,600 cGy [id number] Celiac 09/20/2020 20 350 cGy 5,250 cGy [id number] Med 09/20/2020 20 350 cGy 5,250 cGy [id number] 07/01/2018 41 230 cGy 6,440 cGy Lifetime Dose Tracking * Chemical Lifetime Dose Automatic Entry Manual Entr y Radiation 457.85 mGy 457.85 mGy 0 mGy Fluoro Time 9 minutes 9 minutes 0 minutes DAP (Gy-cm2) 50.769 Gy-cm2 50.769 Gy-cm2 0 Gy-cm2 DAP (uGy-m2) 41.22 uGy-m2 41.22 uGy-m2 0 uGy-m2 Resolved Problems Problem Noted Date Diagnosed Date Resolved Date Abdominal Pain 02/19/2022 02/19/2022 Myocardial Infarction Type 2 05/26/2018 05/27/2018 Overview: Capecitabine-induced coronary vasospasm
--- OUTSIDE RECORDS SUMMARY | 2023-12-18 17:25 | XMS_ITS | Referral Summary ---
Author Name Unknown Organization [facility] Address [address] [place] [address] Care Team Providers Care Hat Band Attacher Name Role Phone Elsewhere, Pcp Primary Care Provider Unavailabl e Source Comments Patient records contain information from all sites at [facility]. For routine questions regarding patient records, call [phone] during business hours, M-F 8:00 AM - 5:00 PM Central Time. Record requests for emergency care only can be directed to [phone] at any time.[facility] Encounters Date Type Department Care Team Description 12/17/2023 Clinical Communication Department of Palliative Care in [place], [place] [address] [place] [phone] Neela Siu, R.N. 12/17/2023 Orders Only Pharmacy Prior Auth RO [phone] Xiomara Blood 12/16/2023 Orders Only [facility] Pharm[facility] - [place] [address] [place] [phone] Dolores Khanna 12/10/2023 Refill Department of Oncology in [place], [place] [address] [place] [address] Giorgio Fishman M.D. Med Refill ( pantoprazole) 12/03/2023 1:15 PM HEALTH CARE SPECIALIST Telemedicine Department of Palliative Care in [place], [place] [address] [place] [phone] Catrachita Padilla M.D., M.S. Malignant Neoplasm Of Rectum (HCC) (Primary Dx); Pain Cancer Associated; Nausea; Palliative Care 12/01/2023 8:30 AM HEALTH CARE SPECIALIST Office Visit Division of Pain Medicine in [place], [place] [address] [place] [phone] Sean Shen D.O. Pain Cancer Associated (Primary Dx) 11/26/2023 3:45 PM HEALTH CARE SPECIALIST Clinical Communication Virtual Review in [place], [place] [address] [place] [address] 10/28/2023 Ancillary Procedure Department of Dermatology 10/28/2023 10:40 AM HEALTH CARE SPECIALIST Comprehensive Visit Department of Dermatology in [place], [place] [address] [place] [phone] Dakota Smith M.D. 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 Annie Mak, ToI.C.S.W., M.S.W. Palliative Care (Primary Dx); Counseling Life Circumstance Problem 10/20/2023 Refill Department of Oncology in [address] [phone] Kristi Dominique M.D. Med Change Request 10/20/2023 8:30 AM HEALTH CARE SPECIALIST Telemedicine Department of Palliative Care in [place], [place] [address] [place] [phone] Louisa Padilla, P.A.-Kari Handley APRN, C.NNaima, Iris.N.P. Pain Cancer Associated (Primary Dx); Malignant Neoplasm Of Rectum (HCC); Pain Neuropathic; Pain Low Back Unspecified; Nausea And Vomiting; Constipation; Counseling Life Circumstance Problem; Palliative Care 10/14/2023 11:30 AM HEALTH CARE SPECIALIST Clinical Communication Virtual Review in [place], [place] [address] [place] [address] Pre-visit Intake 09/30/2023 Clinical Communication Division of Pain Medicine in [place], [place] [address] [place] [phone] Marlon Garcia M.D. Nerve block response 09/29/2023 12:26 PM HEALTH CARE SPECIALIST - 09/29/2023 11:59 PM HEALTH CARE SPECIALIST Hospital Encounter Division of Pain Medicine in [address] [phone] Yassine Parekh M.D. Pain Chest Wall; Pain Neuropathic; Pain Post Thoracotomy Chronic Discharge Disposition: Home or Self Care 09/26/2023 Orders Only Department of Oncology in [address] [phone] Kristi Dominique M.D. 09/26/2023 Orders Only Department of Oncology in [address] [phone] Kristi Dominique M.D. 09/26/2023 1:00 PM HEALTH CARE SPECIALIST Comprehensive Visit Department of Palliative Care in [address] [phone] Giorgio Fishman M.D. Christensen, Kelly J, Sunita Khan R.N. 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 09/18/2023 Refill Department of Oncology in [address] [phone] Giorgio Fishman M.D. Med Change Request (Med refill : Amlodipine besylate/) 09/18/2023 3:05 PM CDT - 09/18/2023 11:59 PM CDT Hospital Encounter Department of Radiology, [facility], in [place], [place] [address] [place] [address] Giorgio Fishman M.D. 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 with food 30 tablet 3 09/26/20 Active omeprazole (PriLOSEC) [address] capsule [...] Chronic Pain/Nonacute Pain. 60 tablet 0 09/26/20 Active OLANZapine (ZyPREXA) 5 mg tablet TAKE 1 TABLET (5 MG TOTAL) BY MOUTH AT BEDTIME. TAKE DAYS 1-4 AFTER CHEMOTHERAPY 72 tablet 1 10/22/20 23 Active clobetasoL (CLODAN) 0.05 % shampoo Lather onto scalp, leave on 5 minutes, and rinse. Use daily Fri-. 118 mL 3 10/28/20 Active hydrocortisone 2.5 % ointment Apply 1 [...] 240 g 3 10/28/20 23 Active omega 4-lrs-okf-fish oil 1,000 mg (120 mg-180 mg) capsule Take 2 capsules by mouth. 0 05/16/20 Active methadone dilution (DOLOPHINE) 0.5 mg/mL injection Take 5 mg by mouth. 0 09/30/20 23 Active HYDROmorphone (Dilaudid) 4 mg tablet Take 4 mg by mouth. 0 09/30/20 23 Active amLODIPine (NORVASC) 10 mg tablet Take 10 mg by mouth. Pt unsure about the dosage 0 09/26/20 Active dexAMETHasone (DECADRON) 0.5 mg tablet Take [...] 0.4 mg under the tongue. 0 09/26/20 Active pregabalin (LYRICA) 25 mg capsule Take [...] Overview: Added automatically from request for surgery [id number] Secondary Malignant Neoplasm Of Lung Laterality Unknown 03/30/2020 Pulmonary Nodule Computed Tomography Indetermina te 09/27/2019 Nodules Pulmonary Multiple 09/10/2019 Takedown Ileostomy Status Post (Reversal) 2018 Ileostomy Status 12/04/2018 Overview: Added automatically from request for surgery [id number] Thrombocytopenia Drug Induced 12/02/2018 Follow Up Examination [...] Colonoscopy 03/2018 rectal cancer, further evaluation at [facility] Resolved Problems Problem Noted Date Diagnosed Date Resolved Date Abdominal Pain 02/19/2022 02/19/2022 Myocardial Infarction Type 2 05/26/2018 05/27/2018 Overview: Capecitabine-induced coronary vasospasm Immunizations Name Administration Dates Next Due SARS-COV-2 (COVID-19) - PFIZ ER (Discontinued)(12 years or older) 08/16/2021,02/27/2021,02/02/2021 Social History Tobacco Use Types Packs/Day Years [...] often do you attend chur ch or oriental orthodox services? Never 02/03/2023 Do you belong to any clubs o r organizations such as tenriism groups, unions, fraternal or athletic groups, or [...] Answer Date Recorded PHQ-2 Score 0 04/25/2019 [facility] Occupat ional [facility] - Occupational Stress [...] place to sleep or slept in a [facility]p (including now)? No 02/03/2023 Nutrition Answer Date [...] degree (e.g., MA, MS, Ana Lilia, MEd, SANDING MACHINE OPERATOR OR TENDER, GORDO) 02/15/2022 Sex and Gender Information Value Date Recorded Sex Assigned at Male 04/23/2018 1:23 PM CDT Gender Identity Male 04/23/2018 1:23 PM CDT Sexual Orientation Straight 04/23/2018 1: 23 PM CDT Last Filed Vital Signs Vital Sign Reading Time Taken Comments Blood Pressure 142/107 09/29/2023 1:51 PM HEALTH CARE SPECIALIST Pulse 110 09/29/2023 1:51 PM HEALTH CARE SPECIALIST Temperature 35 ??C (95 ??F) 09/29/2023 12:42 PM HEALTH CARE SPECIALIST Respiratory Rate 15 09/09/2023 2:28 PM CDT Oxygen Saturation 99% 09/29/2023 1:51 PM HEALTH CARE SPECIALIST Inhaled Oxygen Concentration - - Weight 88.1 kg (194 lb 3.6 oz) 09/09/2023 2:28 P M CDT Height 180.8 cm (5' 11.18) 09/09/2023 2:28 PM C DT Body Mass Index 26.95 09/09/2023 2:28 PM CDT Plan of Treatment Upcoming Encounters Date Type Department Care Team (Late st Contact Info) Description 12/23/2023 8:30 AM HEALTH CARE SPECIALIST Clinical Communication Virtual Review in [place], [place] [address] [place] [address] 12/24/2023 10:30 AM HEALTH CARE SPECIALIST Appointment Department of Radiology, [facility], in [place], [place] [address] [place] [phone] Noelle Reyes, PCandidoA.-C., P.A. [address] [place] [phone] 12/24/2023 11:00 AM HEALTH CARE SPECIALIST Lab Department of Infusion Therapy in [place], [place] [address] [place] [phone] Noelle Reyes P.A.-C., P.A. [address] [place] [phone] 12/24/2023 2:15 PM HEALTH CARE SPECIALIST Office Visit Department of Palliative Care in [place], [place] [address] [place] [phone] Aylin Smith, CINDY, C.N.P., M.S.N. [address] [place] [phone] 12/24/2023 4:10 PM HEALTH CARE SPECIALIST Office Visit Department of Oncology in [place], [place] [address] [place] [phone] Ned Alegria M.D. [address] [place] [phone] Goals Goal Patient Goal Type Associated Problems Recent Progress Patient-Stated? Author Your pain? Symptom Management 9(11/20/2022 2:41 PM HEALTH CARE SPECIALIST) No Fee-Girma Bush, R.N., O.C.N. Note: 05/24/2021: Pain algorithm completed. [facility] 05/24/2021: Followup 06/07 via portal per patient [...] that his need for medication may change. S 06/07/2021: Pain rating over the past 7 [...] needed. KFS Medical Devices Implanted Type Area Control Room Tender Device Identifier Shelf Expiration Date Model / Serial / Lot Mercer [employer] Seprafilm 5x6 - [id number] Implanted:Qty : 1 on 08/21/2018 by Jamin Huerta M.D. at [facility] Hardware e.g. pins/screws/landon s [employer] 4301-02 / / Prt Cath Infus Mri 6f - [id number] Implanted:Qty : 1 on 04/05/2020 by Afsaneh Stephen M.D. at [facility] Implantable [employer] 06/16/2021 [id number] / / [id number] Explanted Type Area Control Room Tender Device Identifier Shelf Expiration Date Model / Serial / Lot Prt Cath Infus Mri 8f - [id number] Implanted:Qty : 1 on 09/30/2018 by Afsaneh Stephen M.D. at [facility] Explanted:Qty : 1 on 03/15/2019 at [facility] Implantable [employer].Bard 10/16/2019 [id number] / / [id number] Procedures Procedure Name Priority Date/Time Associated Diagnosis Comments OUTSIDE US BODY Routine 12/17/2023 11:05 AM HEALTH CARE SPECIALIST OUTSIDE CT BODY Routine 12/08/2023 11:00 AM HEALTH CARE SPECIALIST ECG Routine 10/28/2023 12:00 PM HEALTH CARE SPECIALIST Malignant Neoplasm Of Rectum (HCC) Pain Cancer Associated DERMATOLOGY IMAGE EXAM Routine 10/28/2023 12:00 AM HEALTH CARE SPECIALIST FL SPINE INTERCOSTAL INJECTION Routine 09/29/2023 1:50 PM HEALTH CARE SPECIALIST Pain Chest Wall Pain Neuropathic Pain Post Thoracotomy Chronic MR ABDOMEN MRCP WITHOUT AND WITH IV CONTRAST RAD - Routine (most inpatients and all outpatients) 09/18/2023 4:38 PM CDT Malignant Neoplasm Of Rectum (HCC) Secondary Malignant Neoplasm Liver (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 If available, original interpretation can be found on the Media Tab in Chart Review, in Document Viewer, or as an image in QREADS. If a re-interpretation or overread is required please follow defined workflow. ?? Provider Not In System IMG US PROCEDURES Performing Organization Address [facility] Co de Phone Number IIMS NA * CT ABDOMEN PELVIS W CON-Outside CT Body (12/08/2023 11:00 AM HEALTH CARE SPECIALIST) 12/08/2023 11:0 0 AM HEALTH CARE SPECIALIST Narrative IIMS - 12/08/2023 2:27 PM HEALTH CARE SPECIALIST This order has been created and auto-finalized to support the import of outside images. If available, original interpretation can be found on the Media Tab in Chart Review, in Document Viewer, or as an image in QREADS. If a re-interpretation or overread is required please follow defined workflow. ?? Provider Not In System IMG CT PROCEDURES IIMS NA * ECG 12 Lead (10/28/2023 12:00 PM HEALTH CARE SPECIALIST) Ventricular Rate ECG/Min 118 BPM MUSE NJ Interval 146 ms MUSE QRSD Interval 88 ms MUSE QT Interval 326 ms MUSE QTC Interval 456 ms MUSE P [place] 47 degrees MUSE R [place] 72 degrees MUSE T Wave [place] 32 degrees MUSE 10/28/2023 12:0 0 PM HEALTH CARE SPECIALIST 10/28/2023 12:09 PM HEALTH CARE SPECIALIST Impressions MUSE - 10/28/2023 12:09 PM HEALTH CARE SPECIALIST Sinus tachycardia Otherwise normal ECG When compared with ECG of 19-FEB-2022 08:11, No significant change was found Reviewed by HAROLDO Tracy Narrative Procedure Note Robert Recio M.D. - 10/28/2023 IMPRESSION: Sinus tachycardia Otherwise normal ECG When compared with ECG of 19-FEB-2022 08:11, No significant change was found Reviewed by HAROLDO Tracy Louisa Padilla P.A.-C. ECG ORDERABL ES Performing Organization Address [facility] de Phone Number MUSE NA * Entire Body-Dermatology Image Exam (10/28/2023 12:00 AM HEALTH CARE SPECIALIST) Narrative IIMS - 10/29/2023 8:29 AM HEALTH CARE SPECIALIST This order has been created and auto-finalized to support the import of images acquired without order. The clinical documentation to support these images can be found on the encounter that produced images. Provider Not In System IMG NON RAD IMAGI NG PROCEDURES Performing Organization Address [facility] Co de Phone Number IIMS NA * FL Spine Intercostal Injection Right (09/29/2023 1:50 PM HEALTH CARE SPECIALIST) Narrative Marlon Garcia M.D. - 09/29/2023 1:00 PM HEALTH CARE SPECIALIST Marlon Garcia M.D. ? 09/29/2023 ??6:26 PM [...] image 40, 61, 68) and segment 5/6 ([id number] image 103) have also very slightly increased [...] Advance Directives For more information, please contact: [phone] Latest Code Status on File Code Status [...] Answer Comments Full Code: Discussed Care Teams Hat Band Attacher Relationship Specialty Start Date End Date Elsewhere, Pcp PCP - General Internal Medicine 10/14/22
--- OUTSIDE RECORDS SUMMARY | 2023-12-18 17:25 | XMS_ITS | Encounter Summary ---
Author Name Unknown Organization [facility] Address [address] [place] [address] Care Team Providers Care Flame Hardener Name Role Phone Elsewhere, Pcp Primary Care Provider Unavailabl e Encounter Details Date Type Department Care Team (Late st Contact Info) Description 12/17/2023 Clinical Communication Department of Palliative Care in [place], [place] [address] [place] [phone] Neela Siu R.N. [address] [place] [address] Social History Tobacco Use Types Packs/Day Years [...] often do you attend chur ch or restoration services? Never 02/03/2023 Do you belong to any clubs o r organizations such as hindu groups, unions, fraternal or athletic groups, or [...] Answer Date Recorded PHQ-2 Score 0 04/25/2019 [facility] Occup[facility] - Occupational Stress [...] place to sleep or slept in a correction (including now)? No 02/03/2023 Nutrition Answer Date [...] degree (e.g., MA, MS, Ana Lilia, MEd, CPAS, GORDO) 02/15/2022 Sex and Gender Information Value Date Recorded Sex Assigned at Male 04/23/2018 1:23 PM CDT Gender Identity Male 04/23/2018 1:23 PM CDT Sexual Orientation Straight 04/23/2018 1: 23 PM CDT documented as of this encounter Miscellaneous Notes * Telephone Encounter - Neela Siu RCandidoN. - 12/17/2023 4:41 PM DIAMOND POWDER TECHNICIAN I spoke with PA team and [facility] pharmacy today. Granisetron 1 mg tabs were approved for $0 copay. Xiomara Blood from [facility] shared that the pharmacy will have to order in the medication and should be there 2/ or 2/2 at the latest. Luis has been updated with this information and has follow up scheduled for next week. OND POWDER TECHNICIAN documented in this encounter Plan of Treatment Upcoming Encounters Date Type Department Care Team (Late st Contact Info) Description 12/23/2023 8:30 AM DIAMOND POWDER TECHNICIAN Clinical Communication Virtual Review in [place], [place] [address] [place] [address] 12/24/2023 10:30 AM DIAMOND POWDER TECHNICIAN Appointment Department of Radiology, [facility], in [place], [place] [address] [place] [phone] Noelle Reyes P.A.-C., P.A. [address] [place] [address] 12/24/2023 11:00 AM DIAMOND POWDER TECHNICIAN Lab Department of Infusion Therapy in [address] [phone] Noelle Reyes P.A.-C., P.A. [address] [place] [address] 12/24/2023 2:15 PM DIAMOND POWDER TECHNICIAN Office Visit Department of Palliative Care in [address] [phone] Aylin Smith, CINDY, C.N.P., M.S.N. [address] [place] [phone] 12/24/2023 4:10 PM DIAMOND POWDER TECHNICIAN Office Visit Department of Oncology in [address] [phone] Ned Alegria M.D. [address] [place] [phone] documented as of this encounter Goals Goal Patient Goal Type Associated Problems Recent Progress Patient-Stated? Author Your pain? Symptom Management 9(11/20/2022 2:41 PM DIAMOND POWDER TECHNICIAN) No Fee-Schroede r, Kelliann C, R.N., O.C.N. Note: 05/24/2021: Pain algorithm completed. [facility] 05/24/2021: Followup 06/07 via portal per patient [...] documented as of this encounter Care Teams Flame Hardener Relationship Specialty Start Date End Date Elsewhere, Pcp PCP - General Internal Medicine 10/14/22 documented as of this encounter
--- OUTSIDE RECORDS SUMMARY | 2023-12-18 17:25 | XMS_ITS | Encounter Summary ---
Author Name Unknown Organization [facility] Address [address] [place] [address] Care Team Providers Care Welder/Fitter Name Role Phone Elsewhere, Pcp Primary Care Provider Unavailabl e Encounter Details Date Type Department Care Team (Late st Contact Info) Description 12/17/2023 Orders Only Pharmacy Prior Auth [facility] [phone] Xiomara Blood Social History Tobacco Use Types Packs/Day Years [...] week 02/03/2023 How often do you attend [facility] or mandaen services? Never 02/03/2023 Do you belong to any clubs o r organizations such as religious groups, unions, fraternal or athletic groups, or [...] Answer Date Recorded PHQ-2 Score 0 04/25/2019 [facility] of Occupat ional Health - Occupational [...] degree (e.g., MA, MS, Ana Lilia, MEd, SCHOOL INSPECTOR, GORDO) 02/15/2022 Sex and Gender Information Value Date Recorded Sex Assigned at Male 04/23/2018 1:23 PM CDT Gender Identity Male 04/23/2018 1:23 PM CDT Sexual Orientation Straight 04/23/2018 1: 23 PM CDT documented as of this encounter Plan of Treatment Upcoming Encounters Date Type Department Care Team (Late st Contact Info) Description 12/23/2023 8:30 AM SEQUENCING MACHINE OPERATOR Clinical Communication Virtual Review in [place], [place] [address] [place] [address] 12/24/2023 10:30 AM SEQUENCING MACHINE OPERATOR Appointment Department of Radiology, [facility], in [place], [place] [address] [place] [phone] Noelle Reyes P.A.-C., P.A. [address] [place] [phone] 12/24/2023 11:00 AM SEQUENCING MACHINE OPERATOR Lab Department of Infusion Therapy in [place], [place] [address] [place] [phone] Noelle Reyes P.A.-C., P.A. [address] [place] [address] 12/24/2023 2:15 PM SEQUENCING MACHINE OPERATOR Office Visit Department of Palliative Care in [place], [place] [address] [place] [phone] Aylin Smith APRN, C.N.P., M.S.N. [address] [place] [phone] 12/24/2023 4:10 PM SEQUENCING MACHINE OPERATOR Office Visit Department of Oncology in [place], [place] [address] [place] [phone] Ned Alegria M.D. [address] [place] [phone] documented as of this encounter Goals Goal Patient Goal Type Associated Problems Recent Progress Patient-Stated? Author Your pain? Symptom Management 9(11/20/2022 2:41 PM SEQUENCING MACHINE OPERATOR) Girma Gaspar, RCandidoN., O.C.N. Note: 05/24/2021: Pain algorithm completed. [facility] [...] documented as of this encounter Care Teams Welder/Fitter Relationship Specialty Start Date End Date Elsewhere, Pcp PCP - General Internal Medicine 10/14/22 documented as of this encounter
--- OUTSIDE RECORDS SUMMARY | 2023-12-18 17:26 | XMS_ITS | Encounter Summary ---
Author Name Unknown Organization [facility] Address [address] [place] [address] Care Team Providers Care Monotype Mechanic Name Role Phone Elsewhere, Pcp Primary Care Provider Unavailabl e Reason for Referral * Outpatient (Routine) - Authorized Specialty Diagnoses / Procedures Referred By Contac t Referred To Contact Dermatology Diagnoses Dakota Noel M.D. 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 [address] [place] [address] [facility] Referral ID Status Reason Start Date Expiration Date V isits Requested Visits Authorized [id number] Closed Specialty Services Required 09/10/2023 09/09/2024 1 1 Encounter Details Date Type Department Care Team (Latest Contact Info) Description 10/28/2023 10:40 AM WOODWORK SALVAGE INSPECTOR Comprehensive Visit Department of Dermatology in [place], [place] [address] [place] [phone] Dakota Smith M.D. 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 Never 02/03/2023 Do you belong to any clubs o r organizations such as cheondoism groups, unions, fraternal or athletic groups, or [...] Answer Date Recorded PHQ-2 Score 0 04/25/2019 [facility]at ional [facility] - Occupational Stress Questionnaire Answer Date Recorded [...] place to sleep or slept in a assisted (including now)? No 02/03/2023 Nutrition Answer Date [...] degree (e.g., MA, MS, Ana Lilia, MEd, AGENT, GORDO) 02/15/2022 Sex and Gender Information Value Date Recorded Sex Assigned at Male 04/23/2018 1:23 PM CDT Gender Identity Male 04/23/2018 1:23 PM CDT Sexual Orientation Straight 04/23/2018 1: 23 PM CDT documented as of this encounter Consult Notes * Dakota Smith M.D. - 10/28/2023 10:40 AM CST [facility] 16 Correspondence to: Dakota Smith M.D. REFERRAL SOURCE Giorgio Fishman M.D. HISTORY OF PRESENT ILLNESS Mr. Luis Tabares is a very pleasant 43 y.o. male with a history of metastatic rectal adenocarcinoma currently on panitumumab, presenting for evaluation of panitumumab-induced acneiform eruption. Luis states that he started his second course of panitumumab a month ago. His first course was in 2019, at which time he was on the medication for several months and developed a diffuse rash that he remembers being especially severe on the face. A month ago when he started the second course, he was also started on doxycycline 100 mg twice daily. He was also started on Decadron 4 mg daily for 4 days after each infusion. He has not been using any topical steroids. He notes that the rash has developed over the month, and he is most bothered by it on the scalp which is tender and often feels like pins and needles. The face also bothersome given it is hard to be out in public. He also has the rash on the torso, arms, upper groin, and upper legs, and these areas sometimes itch a little but do not bother him as much as the scalp and face. 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 He does feel that the doxycycline may be helping manage the rash. PHYSICAL EXAM General: Awake, alert, in no acute distress Skin: I have examined the scalp, face, neck, chest, abdomen, back, bilateral upper extremities, bilateral lower extremities, buttocks, and groin. The exam is notable for: Diffuse acneiform eruption involving the scalp, face, neck, back, chest, abdomen, bilateral upper extremities, bilateral proximal lower extremities, mons pubis (see photos) ASSESSMENT / PLAN EGFR inhibitor-induced acneiform eruption, grade 3 Luis began his second course of panitumumab for metastatic GI adenocarcinoma a month ago. He experienced a severe acneiform eruption in 2019 with his first course, and was referred to me to help manage this during the current course. He was started on doxycycline a month ago when the panitumumab was started, and he feels that so far the eruption has not become as severe as a few years ago in the doxycycline seems to be helping. However, the eruption currently covers his scalp, face, neck, chest, abdomen, back, upper extremities, mons pubis, and proximal lower extremities and has been especially bothersome on the scalp. We will continue the doxycycline 100 mg twice daily. We discussed switching from doxycycline to minocycline to see if he could have any additional benefit, though elected to stick with doxycycline given his current transaminitis and rare risk of hepatic toxicity with minocycline. He has not been using any topical steroids so I will add a topical regimen as detailed below. He will also continue his post-infusion Decadron 4 mg for 4 days after each infusion. We discussed that if the rash continues to worsen to an intolerable level, next steps could include consideration of a short course of prednisone and/or isotretinoin. He is in agreement with this plan. Plan: Continue doxycycline 100 mg twice daily with food and water until our next visit. He was counseled on risks of GI upset and sunburn. Continue the post-infusion Decadron 4 mg for 4 days after each infusion For the scalp, start clobetasol shampoo: Use Friday through as needed. Lather into damp scalp, leave on 5 minutes, and rinse. For the face and groin, start hydrocortisone 2.5% ointment: Use twice daily Friday through as needed. For the body, start triamcinolone 0.1% cream: Use twice daily Friday through as needed. He was counseled on the risk of skin atrophy with prolonged uninterrupted use of topical steroids. I counseled him to reach out to me if the rashes worsening significantly despite this regimen. Full-body photos were taken today. Follow-up: 4-6 weeks It was a pleasure seeing Mr. Luis Tabares today. Dakota Smith M.D. WORK SALVAGE INSPECTOR documented in this encounter Plan of Treatment Upcoming Encounters Date Type Department Care Team (Late st Contact Info) Description 12/23/2023 8:30 AM WOODWORK SALVAGE INSPECTOR Clinical Communication Virtual Review in [address] [address] 12/24/2023 10:30 AM WOODWORK SALVAGE INSPECTOR Appointment Department of Radiology, [facility], in [address] [phone] Noelle Reyes, P.A.-C., P.A. [address] [place] [phone] 12/24/2023 11:00 AM WOODWORK SALVAGE INSPECTOR Lab Department of Infusion Therapy in [address] [phone] Noelle Reyes, P.A.-C., P.A. [address] [place] [phone] 12/24/2023 2:15 PM WOODWORK SALVAGE INSPECTOR Office Visit Department of Palliative Care in [address] [phone] Aylin Smith, REAL ESTATE OFFICE SUPERVISOR, C.N.P., M.S.N. [address] [place] [phone] 12/24/2023 4:10 PM WOODWORK SALVAGE INSPECTOR Office Visit Department of Oncology in [place], [place] [address] [place] [address] Ned Alegria M.D. [address] [place] [phone] Scheduled Referrals Name Type Priority Associated Diagnoses Order Schedule Dermatology office visit (clinic) Outpatient Referral Routine Expected: 11/28/2023 (Approximate), Expires: 01/26/2025 documented as of this encounter Goals Goal Patient Goal Type Associated Problems Recent Progress Patient-Stated? Author Your pain? Symptom Management 9(11/20/2022 2:41 PM WOODWORK SALVAGE INSPECTOR) No Phyllis-Girma Bush, RCandidoN., O.C.N. Note: 05/24/2021: Pain algorithm completed. [facility] 05/24/2021: Followup 06/07 via portal per patient [...] Pain rating over the past 7 days: 05/26 Recommendations at initial call and response: Mr. 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
--- OUTSIDE RECORDS SUMMARY | 2023-12-18 17:26 | XMS_ITS | Encounter Summary ---
Author Name Unknown Organization [facility] Address [address] [place] [id number] Care Team Providers Care Relay Mechanic Name Role Phone Elsewhere, Pcp Primary Care Provider Unavailabl e Reason for Visit * Appointment Request (Routine) - Closed Specialty Diagnoses / Procedures Referred By Contac t Referred To Contact Pain Medicine Referral ID Status Reason Start Date Expiration Date Visits Re quested Visits Authorized [id number] Closed 11/03/2023 11/02/2024 1 1 Encounter Details Date Type Department Care Team (Late st Contact Info) Description 12/01/2023 8:30 AM SAFETY TRAINER Office Visit Division of Pain Medicine in [place], [place] [address] [place] [phone] Sean Shen D.O. [address] [place] [phone] Pain Cancer Associated (Primary Dx) Social History Tobacco Use Types Packs/Day Years [...] often do you attend chur ch or jewish services? Never 02/03/2023 Do you belong to any clubs o r organizations such as latter day groups, unions, fraternal or athletic groups, or [...] Date Recorded PHQ-2 Score 0 04/25/2019 [facility] [place] of Occupat ional Health - Occupational Stress [...] money to buy more. Never true 02/04/20 Within the past 12 months, t he [...] place to sleep or slept in a detention (including now)? No 02/03/2023 Nutrition Answer Date [...] degree (e.g., MA, MS, Ana Lilia, MEd, GRAPHIC ARTS TECHNICIAN, GORDO) 02/15/2022 Sex and Gender Information Value Date Recorded Sex Assigned at Male 04/23/2018 1:23 PM CDT Gender Identity Male 04/23/2018 1:23 PM CDT Sexual Orientation Straight 04/23/2018 1: 23 PM CDT documented as of this encounter Progress Notes * Sean Shen D.O. - 12/01/2023 8:30 AM CST PAIN MEDICINE CLINIC FOLLOW-UP NOTE SUBJECTIVE: Luis Tabares is a 43 y.o. male with a past medical history significant for rectal cancer (diagnosed March 2018) with metastases to his liver, lung, and abdominal lymph nodes. Cancer has been complicated by cancer related pain primarily in the abdomen, back and right chest wall. He has had numerous i nterventions in regards to his pain, which are outlined below. Most recently he underwent a L SIJ injection notable improvement in his pain and a celiac plexus block with notable short term relief. In addition, he has been following with palliative medicine for medical management of his pain. His current regimen is outlined below, which he notes substantial improvement in his pain with. He has discontinued gabapentin since our last visit, and has noted associated worsening of his peripheral neuropathy. Notably, he had a R T5, T7 intercostal nerve block on 09/30/2023 with favorable response and improved function. There was discussions to proceed with peripheral nerve stimulation to attain more long lasting benefit. I saw the patient for a follow up today. Patient is doing very well in terms of pain control. He reports that in combination with the procedures we have performed and the medical management with palliative care he has had good control of his pain. He is very happy with his current pain control. He r einitiated chemotherapy back in September. He reports that he has had worsening abdominal bloating, nausea, and vomiting on a daily basis. He is going to discuss this with the oncologist in the appointment in early December. He returned to work in November. Since starting chemotherapy and the discontinuation of gabapentin he is noticed worsening peripheral neuropathy in his bilateral feet. He denies red flag symptoms such as focal paralysis, saddle anesthesia, bowel or bladder dysfunction. Home Pain Medications: Methadone 2.5mg BID Hydromorphone 4-6mg Q4H PRN Tylenol PRN Ibuprofen PRN THC PRN QHS Previous Procedures: -T5 intercostal nerve block 03/08/2022 - RUE trigger point injections at Right thoracotomy scar 4 locations (2 more medial, 1 midscar and 1 mid axillary line) - R Paravertebral Block 07/19/2022 (Right T5-T6, Right T7-T8 and Right T9-T10) - R Sided Paravertebral Block 10/18/2022 (Right T5-T6, Right T7-T8 and Right T9-T10) - R Sided Paravertebral Block 04/04/2023 (Right T5-T6, Right T7-T8 and Right T9-T10) - R paravertebral block 07/23/23- endorses limited improvement (had >50% relief previously) - L SIJ and PSIS TPI : 07/30/23-- pain is improved - Celiac Plexus Block on 09/03/2023 - temporary 24-48 hrs of improvement - R T5 and R T7 intercostal nerve block with notable improvement OBJECTIVE PHYSICAL EXAM Vitals signs were reviewed. GENERAL: NAD, friendly, conversive, accompanied by supportive family member MENTAL: AAOx3, answers questions appropriately LUNGS: Unlabored respirations. SKIN: No discoloration, no rashes, no open wounds GAIT: nonantalgic NEURO: AOx3 DIAGNOSTICS I have independently reviewed all imaging studies and reviewed the relevant findings with the patient. 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 male with PMH of metastatic rectal cancer who is presenting today as follow up in the setting of his chronic cancer-related pain particularly in the back, right thorax, and abdomen. He is currently doing very well in terms of his pain control. He reports that in combination with the procedures we have performed and the medical management with palliative care he has haddrastic improvement in his pain control and states that his quality of life has subsequently improved as well. He is currently dealing with side effects related to his chemotherapy, which are bothersome to him. In particular, he is having daily nausea and vomiting episodes, which makes it difficultto be at work which she restarted in November. He is going to discuss this with his oncologist. He has an appointment with the palliative care later this week to discuss his medical management for hiscancer pain. He is having worsening peripheral neuropathy in the setting of his chemo. I discussed re-initiation of gabapentin is appropriate, however, he will discuss this with his palliative care physician. We both agreed that further procedures are not currently indicated, however, I notified him to message me when/if he feels like his current medical regimen is not cutting it for in terms of pain control and/or he starts to experience more unwanted side effects in terms of his opioid regimen. We have many procedural options we could offer him including repeat intercostal nerve blocks on the right side versus peripheral nerve stimulation, celiac plexus neurolysis, and repeat SI joint injections. PLAN: -we will plan on following up on a p.r.n. basis pending the progression of his cancer-related pain as per above FOLLOW-UP: As needed. Patient education: The patient was ready to learn and had no apparent learning barriers. Their learning preferences includes listening. The diagnosis and treatment plans were explained and the patient expressed understanding of the content. I personally spent a total of 20 minutes in kwk-zwra-yw-face time performing a review of the recordand/or discussion with the patient/caregiver as described above. Total time spent with patient: 20 minutes. Sean Shen DO TY TRAINER documented in this encounter Plan of Treatment Upcoming Encounters Date Type Department Care Team (Late st Contact Info) Description 12/23/2023 8:30 AM SAFETY TRAINER Clinical Communication Virtual Review in [address] [address] 12/24/2023 10:30 AM SAFETY TRAINER Appointment Department of Radiology, [facility] in [address] [phone] Noelle Reyes P.A.-C., P.A. [address] [place] [phone] 12/24/2023 11:00 AM SAFETY TRAINER Lab Department of Infusion Therapy in [address] [phone] Noelle Reyes, P.A.-C., P.A. [address] [place] [phone] 12/24/2023 2:15 PM SAFETY TRAINER Office Visit Department of Palliative Care in [address] [phone] Luis, Aylin Fernando APRN, C.N.P., M.S.N. [address] [place] [address] 12/24/2023 4:10 PM SAFETY TRAINER Office Visit Department of Oncology in [place], [place] [address] [place] [address] Ned Alegria M.D. [address] [place] [phone] documented as of this encounter Goals Goal Patient Goal Type Associated Problems Recent Progress Patient-Stated? Author Your pain? Symptom Management 9(11/20/2022 2:41 PM SAFETY TRAINER) Raisa Ferguson-Girma Bush R.N., O.C.N. Note: 05/24/2021: Pain algorithm completed. [facility] 05/24/2021: Followup 06/07 via portal [...] that his need for medication may change. [facility] 06/07/2021: Pain rating over the past [...] as of this encounter Visit Diagnoses Diagnosis Pain Cancer Associated- Primary documented in this encounter Additional Health Concerns Assessment Noted Time PHQ-9 Depression Total Score: 7 05/26/20 18 10:22 PM CDT documented as of this encounter Care Teams Relay Mechanic Relationship Specialty Start Date End Date Elsewhere, Pcp PCP - General Internal Medicine 10/14/22 documented as of this encounter
--- OUTSIDE RECORDS SUMMARY | 2023-12-18 17:26 | XMS_ITS | Encounter Summary ---
Author Name Unknown Organization [facility] Address [address] [place] [address] Care Team Providers Care Railcar Switchman Name Role Phone Elsewhere, Pcp Primary Care Provider Unavailabl e Reason for Visit * Reason Onset Date Comments Pre-visit Intake 10/14/2023 Encounter Details Date Type Department Care Team (Latest Contact Info) Description 10/14/2023 11:30 AM BROOMCORN THRESHER Clinical Communication Virtual Review in [place], [place] 200 [place], [place] [phone] Pre-visit Intake Social History Tobacco Use Types Packs/Day Years [...] often do you attend chur ch or samaritan services? Never 02/03/2023 Do you belong to any clubs o r organizations such as faith groups, unions, fraternal or athletic groups, or [...] Answer Date Recorded PHQ-2 Score 0 04/25/2019 [facility] of Occupat ional Health - Occupational Stress [...] degree (e.g., MA, MS, Ana Lilia, MEd, COMBAT SYSTEMS OPERATOR, GORDO) 02/15/2022 Sex and Gender Information Value Date Recorded Sex Assigned at Male 04/23/2018 1:23 PM CDT Gender Identity Male 04/23/2018 1:23 PM CDT Sexual Orientation Straight 04/23/2018 1: 23 PM CDT documented as of this encounter Plan of Treatment Upcoming Encounters Date Type Department Care Team (Late st Contact Info) Description 12/23/2023 8:30 AM BROOMCORN THRESHER Clinical Communication Virtual Review in [place], [place] 200 [place] [address] 12/24/2023 10:30 AM BROOMCORN THRESHER Appointment Department of Radiology, [facility], in [place], [place] [address] [place] [address] Noelle Reyes P.A.-C., P.A. [address] [place] [phone] 12/24/2023 11:00 AM BROOMCORN THRESHER Lab Department of Infusion Therapy in [place], [place] [address] [place] [phone] Noelle Reyes P.A.-C., P.A. [address] [place] [address] 12/24/2023 2:15 PM BROOMCORN THRESHER Office Visit Department of Palliative Care in [place], [place] [address] [place] [phone] Aylin Smith, CINDY, C.N.P., M.S.N. [address] [place] [phone] 12/24/2023 4:10 PM BROOMCORN THRESHER Office Visit Department of Oncology in [address] [phone] Ned Alegria M.D. [address] [place] [phone] documented as of this encounter Goals Goal Patient Goal Type Associated Problems Recent Progress Patient-Stated? Author Your pain? Symptom Management 9(11/20/2022 2:41 PM BROOMCORN THRESHER) No Fee-Girma Bush, RCandidoN., O.C.N. Note: 05/24/2021: Pain algorithm completed. [facility] 05/24/2021: Followup 06/07 via portal per patient [...] documented as of this encounter Care Teams Railcar Switchman Relationship Specialty Start Date End Date Elsewhere, Pcp PCP - General Internal Medicine 10/14/22 documented as of this encounter
--- OUTSIDE RECORDS SUMMARY | 2023-12-18 17:26 | XMS_ITS | Encounter Summary ---
Author Name Unknown Organization [facility] Address [address] [place] [address] Care Team Providers Care Enterprise Account Executive Name Role Phone Elsewhere, Pcp Primary Care Provider Unavailabl e Reason for Referral * Outpatient (Routine) - Authorized Specialty Diagnoses / Procedures Referred By Halima t Referred To Contact Palliative Medicine Diagnoses n/a Catrachita Padilla M.D., M.S. [address] [place] [address] [facility] Referral ID Status Reason Start Date Expiration Date V isits Requested Visits Authorized [id number] Authorized 12/04/2023 12/03/2026 1 1 Scheduling Instructions In person for prescribing, needs to coordinate with upcoming onc visits. Urgent ok if needed. UTING CONSULTANT * Medication Prior Authorization - Authorized Specialty Diagnoses / Procedures Referred By Contlucas t Referred To Contact Catrachita Padilla M.D., M.S. [address] [place] [phone] Referral ID Status Reason Start Date Expiration Date V isits Requested Visits Authorized [id number] Authorized 12/16/2023 12/16/2024 1 1 UTING CONSULTANT Reason for Visit * Outpatient (Routine) - Closed Specialty Diagnoses / Procedures Referred By Contac t Referred To Contact Palliative Medicine Diagnoses . Kari Austin APRN, C.N.P., D.N.P. [address] [place] [address] [facility] Referral ID Status Reason Start Date Expiration Date Visits Re quested Visits Authorized [id number] Closed 10/20/2023 10/19/2026 1 1 Encounter Details Date Type Department Care Team (Late st Contact Info) Description 12/03/2023 1:15 PM COMPUTING CONSULTANT Telemedicine Department of Palliative Care in [place], [place] [address] [place] [phone] Catrachita Padilla M.D., M.S. [address] [place] [phone] Malignant Neoplasm Of Rectum (HCC) (Primary Dx); Pain Cancer Associated; Nausea; Palliative Care Social History Tobacco Use Types Packs/Day [...] week 02/03/2023 How often do you attend [facility] or mormon services? Never 02/03/2023 Do you belong to any clubs o r organizations such as yarsanism groups, unions, fraternal or athletic groups, or [...] Answer Date Recorded PHQ-2 Score 0 04/25/2019 [facility] of Occupat ional Health - Occupational [...] place to sleep or slept in a custodial (including now)? No 02/03/2023 Nutrition Answer Date [...] degree (e.g., MA, MS, Ana Lilia, MEd, BLUE LEATHER SETTER, GORDO) 02/15/2022 Sex and Gender Information Value Date Recorded Sex Assigned at Male 04/23/2018 1:23 PM CDT Gender Identity Male 04/23/2018 1:23 PM CDT Sexual Orientation Straight 04/23/2018 1: 23 PM CDT documented as of this encounter Progress Notes * Catrachita Padilla M.D., M.S. - 12/03/2023 1:15 PM CST SUBJECTIVE CHIEF COMPLAINT/REASON FOR VISIT Luis Tabares is a 43-year-old man from [place], [place] with metastatic rectal cancer who is followed in the outpatient Palliative Care Clinic for non-pain symptoms, pain, and psychosocial support. established patient visit Visit conducted via virtual visit. The following person/people were also present during the discussion: None Medical Record review was conducted prior to the virtual visit. Date of last in-person clinic visit: 09/26 Interval History: Luis's cancer-associated pain continues to be well-controlled with the methadone 2.5mg PO bid. He has not been taking the hydromorphone 4mg PO other than a couple doses shortly after starting the methadone and has not received a refill since 09/26. However, his neuropathy has continued to be bothersome. This has been largely the loss of sensation, such as in his feet, with a tingling sensation in his fingertips. He does not report any worseningsensation with discontinuation of the gabapentin 300mg PO tid he had been on (stopped with methadone initiation), although one note documents the neuropathy worsened with this change. Today, Luis is wondering whether he should restart the gabapentin. His other main symptom is nausea for ~4 days after treatment. Denies significant benefit with the olanzapine 5mg at night. He takes zofran, compazine, and occasionally ativan PRN. Is not certain which premeds he receives with chemo, although believes Kytril is one of them (uncertain about Aloxi or Emend). He is hoping that stopping the steroid (which was for the rash, but irritating his stomach) will be helpful. [place] Scores Who completed this form?: Patient No Pain = 0 and Worst Pain = 10: 4 No Fatigue = 0 and Worst Fatigue = 10: 6 No Nausea = 0 and Worst Nausea = 10: 7 No Depression = 0 and Worst Depression = 10: 0 No Anxiety = 0 and Worst Anxiety = 10: 0 No Drowsiness = 0 and Worst Drowsiness = 10 : 0 No Shortness of Breath = 0 and Worst Shortness of Breath = 10: 0 Best Appetite = 0 and Worst Appetite = 10: 4 Best Feeling of Well Being = 0 and Worst Feeling of Well Being = 10: 4 Best Sleep = 0 and Worst Sleep = 10: 5 No Financial Distress (Distress/suffering experienced secondary to financial issues) = 0 and Worst Financial Distress = 10: 0 No Spiritual Pain (Pain deep in your soul/being that is not physical) = 0 and Worst Spiritual Pain = 10: 0 OBJECTIVE PHYSICAL EXAM General: Alert, appropriately interactive over the phone, no acute distress Lungs: non-labored breathing pattern during conversation Psychiatric: Oriented X 3, intact recent and remote memory, judgment and insight, congruent mood and affect. LABS CMP 09/09/23: Potassium, S 3.6 - 5.2 mmol/L 4.2 4.0 4.3 3.5 Low 4.4 4.3 4.0 Sodium, S 135 - 145 mmol/L 137 137 139 141 138 140 140 Chloride, S 98 - 107 mmol/L 101 102 104 106 103 104 103 Bicarbonate, S 22 - 29 mmol/L 27 26 23 24 26 24 26 Anion Gap 7 - 15 9 9 12 11 9 12 11 BUN (Blood Urea Nitrogen), S 8 - 24 mg/dL 12 16 16 11 14 12 14 Creatinine 0.74 - 1.35 mg/dL 0.85 0.87 0.92 0.87 0.94 1.07 0.98 Estimated GFR (eGFR) >=60 mL/min/BSA >90 >90 CM >90 CM >90 CM >90 CM Comment: Estimated GFR calculated using the 2020 CKD_EPI creatinine equation. Calcium, Total, S 8.6 - 10.0 mg/dL 9.2 9.5 9.5 8.4 Low 9.2 9.1 9.4 Glucose, S 70 - 140 mg/dL 129 115 102 108 101 96 107 Protein, Total, S 6.3 - 7.9 g/dL 6.2 Low 6.6 6.3 5.7 Low 6.2 Low 6.0 Low 6.2 Low Albumin, S 3.5 - 5.0 g/dL 4.1 4.8 4.4 3.8 4.2 4.5 4.3 Aspartate Aminotransferase (AST), S 8 - 48 U/L 111 High 34 41 36 32 28 30 Alkaline Phosphatase, S 40 - 129 U/L 285 High 108 106 132 High 101 109 110 Alanine Aminotransferase (ALT), S 7 - 55 U/L 259 High 52 70 High 41 44 44 48 Bilirubin, Total, S 0.0 - 1.2 mg/dL 0.7 0.6 R 0.6 R 0.4 R 0.4 R 0.3 R 0.3 R ASSESSMENT / PLAN Luis Tabares is a 43-year-old man from [place], [place] with metastatic rectal cancer who is followed in the outpatient Palliative Care Clinic for non-pain symptoms, pain, and psychosocial support. RECOMMENDATIONS Cancer-Associated Pain and Chemotherapy-Induced Neuropathy: Currently his cancer pain is well-controlled on the methadone with no requirement for additional PRNs. We discussed the option for restarting gabapentin which he tolerated vs. pregabalin for bid dosing. He is interesting in trialing the gabapentin. Will aim for 100mg PO bid dosing (equivalent to 1200mg total daily gabapentin dosing) and reevaluate. - Continue methadone 2.5mg PO bid - Has hydromorphone 4mg PO available for PRN although not utilizing, no refill required at this time - Start pregabalin as below. Two prescriptions have been sent, one for the 15 day uptitation and one for the 100mg dosage thereafter. - 25mg PO bid x5 days - 50mg (two 25mg tablets) PO bid x5 days - 75mg (three 25mg tablets) PO bid x5 days - 100mg (one 100mg tablet) PO bid thereafter Opioid Summary Opioid Need: This patient has a condition that necessitates treatment with an opioid for longer than 7 days. Additionally, a non-opioid alternative was not appropriate or inadequate to manage patient???s pain. Diagnosis related to controlled substance prescribing: rectal cancer [place] APPLIANCE TECHNICIAN Review: We have reviewed the patient's record in the [place] prescription monitoring program 12/03/2023. Opioid Toxicity Review: We have reviewed the risks of opioid therapy and completed an assessment oftoxicities. Opioid Aberrant Use Concerns: None Recommended Opioid Regimen as of 12/03/2023.: as above Current Oral Morphine Equivalents (OME/MME): N/a Methadone EKG monitoring: Last QTc 456ms, Next EKG due: April 2024 Opioid Risk Score: Last Opioid Risk Tool charting Flowsheet Row Comprehensive Visit from 09/26/2023 in Department of Palliative Care in [place], [place] ORT Total Score (max 26) 1 2. Chemotherapy-Induced Nausea: Discussed additional management options. Will rotate zofran to scheduled kytril 1mg PO bid for the 4-5 days post chemo. Discussed to not utilize zofran and Kytril together. - Continue olanzapine 5mg PO qhs - Start Kytril 1mg PO bid - Do not use zofran when using Kytril - Use compazine and lorazepam PRN Follow up visit: Is due for 3 month in person visit for controlled substance prescribing; will needto coordinate with upcoming Oncology visits in December. Consult conducted via real-time audio/video technology by Catrachita Padilla M.D., M.S. in [facility] to the patient. Catrachita Padilla M.D., M.S. UTING CONSULTANT documented in this encounter Plan of Treatment Upcoming Encounters Date Type Department Care Team (Late st Contact Info) Description 12/23/2023 8:30 AM COMPUTING CONSULTANT Clinical Communication Virtual Review in [place], [place] 200 [place] [address] 12/24/2023 10:30 AM COMPUTING CONSULTANT Appointment Department of Radiology, [facility] in [place], [place] [address] [place] [phone] Noelle Reyes P.A.-C., P.A. [address] [place] [phone] 12/24/2023 11:00 AM COMPUTING CONSULTANT Lab Department of Infusion Therapy in [place], [place] [address] [place] [phone] Noelle Reyes P.A.[place]., P.A. [address] [place] [phone] 12/24/2023 2:15 PM COMPUTING CONSULTANT Office Visit Department of Palliative Care in [place], [place] [address] [place] [phone] Aylin Smith, CINDY, C.N.P., M.S.N. [address] [place] [phone] 12/24/2023 4:10 PM COMPUTING CONSULTANT Office Visit Department of Oncology in [place], [place] [address] [place] [phone] Ned Alegria M.D. [address] [place] [phone] Scheduled Referrals Name Type Priority Associated Diagnoses Order Schedule Palliative Care office visit (clinic) Outpatient Referral Routine Expected: 12/24/2023, Expires: 03/04/2025 documented as of this encounter Goals Goal Patient Goal Type Associated Problems Recent Progress Patient-Stated? Author Your pain? Symptom Management 9(11/20/2022 2:41 PM COMPUTING CONSULTANT) No Fee-Schroede r, Kelliann C, RCandidoN., O.C.N. Note: 05/24/2021: Pain algorithm completed. [facility] 05/24/2021: Followup 06/07 via portal per patient [...] as of this encounter Visit Diagnoses Diagnosis Malignant Neoplasm Of Rectum (HCC)- Primary Pain Cancer Associated Nausea Palliative Care documented in this encounter Additional Health Concerns Assessment Noted Time PHQ-9 Depression Total Score: 7 05/26/20 18 10:22 PM CDT documented as of this encounter Care Teams Enterprise Account Executive Relationship Specialty Start Date End Date Elsewhere, Pcp PCP - General Internal Medicine 10/14/22 documented as of this encounter
--- OUTSIDE RECORDS SUMMARY | 2023-12-18 17:26 | XMS_ITS | Encounter Summary ---
Author Name Unknown Organization [facility] Address [address] [place] [address] Care Team Providers Care Bank Courier Name Role Phone Elsewhere, Pcp Primary Care Provider Unavailabl e Reason for Referral * Outpatient (Routine) - Authorized Specialty Diagnoses / Procedures Referred By Contac t Referred To Contact Pain Medicine Diagnoses Other Chest Pain Sean Shen D.O. [address] [place] [phone] [facility] Referral ID Status Reason Start Date Expiration Date V isits Requested Visits Authorized [id number] Authorized 09/30/2023 09/29/2024 1 1 Scheduling Instructions Can be video if not able to schedule at the same time ARD MANAGER * Specialty Diagnoses / Procedures Referred By Contac t Referred To Contact Marlon Garcia M.D. [address] [place] [address] [facility] Referral ID Status Reason Start Date Expiration Date Visits Re quested Visits Authorized Scheduling Instructions With Miladys, same day as consult if possible. ARD MANAGER * Outpatient (Routine) - Authorized Specialty Diagnoses / Procedures Referred By Contac t Referred To Contact Pain Medicine Diagnoses Other Chest Pain Sean Shen D.O. [address] [place] [address] Marlon Garcia M.D. [address] [place] [address] Referral ID Status Reason Start Date Expiration Date V isits Requested Visits Authorized [id number] Authorized 09/30/2023 09/29/2026 [address] Garcia on a day he is supervising, he already started the conversation with this pt about PNS. ARD MANAGER Reason for Visit * Reason Onset Date Comments Nerve block response 09/30/2023 Encounter Details Date Type Department Care Team (Latest Contact Info) Description 09/30/2023 Clinical Communication Division of Pain Medicine in [place], [place] [address] [place] [phone] Marlon Garcia M.D. [address] [place] [phone] Nerve block response Social History Tobacco Use Types Packs/Day Years [...] often do you attend chur ch or sikhism services? Never 02/03/2023 Do you belong to [...] Answer Date Recorded PHQ-2 Score 0 04/25/2019 [facility] of Occupat ional Health - Occupational Stress [...] place to sleep or slept in a fdc (including now)? No 02/03/2023 Nutrition Answer Date [...] degree (e.g., MA, MS, Ana [place], MEd, MOLD DRESSER, GORDO) 02/15/2022 Sex and Gender Information Value Date Recorded Sex Assigned at Male 04/23/2018 1:23 PM CDT Gender Identity Male 04/23/2018 1:23 PM CDT Sexual Orientation Straight 04/23/2018 1: 23 PM CDT documented as of this encounter Miscellaneous Notes * Telephone Encounter - Miladys Ortega R.N. - 09/30/2023 2:48 PM ORCHARD MANAGER SUBJECTIVE CHIEF COMPLAINT / REASON FOR CALL Nerve block response Information Discussed Called Mr. Tabares at the request of Dr. Garcia to assess his response to the right T5 and T7 intercostal nerve block done on 09/29/23. For several hours after the procedure his pain was 2-3/10. Preprocedure his pain was rated 6/10. Hewas able to get more restful sleep during his 45 minutes naps yesterday. Mr. Tabares reports a 40% reduction in his pain during the anesthetic phase of the block. Today his pain continues to be a little better than before rating it 3/10. The block did not cover all of the painful area. He still has p ain in the lower rib cage. We discussed it can take up to 2 weeks for the full response to the steroid also given in the injection. There is a potential for a peripheral nerve stimulator (PNS) pending his response to the nerve block. I will let Dr. Garcia and Dr. Shen know of his response to the block. The process for the PNS is the consult, nurse education and pain psych evaluation. The appointment coordinators will contact himto get those scheduled. PLAN Disposition/Recommendation: notified provider and awaiting recommendations Information/Education: patient/caller able to teach back Caller agreeable to plan of care: yes The following references were used: nursing clinical judgement and provider Dr. Garcia ARD MANAGER documented in this encounter Plan of Treatment Upcoming Encounters Date Type Department Care Team (Late st Contact Info) Description 12/23/2023 8:30 AM ORCHARD MANAGER Clinical Communication Virtual Review in [place], [place] 200 [place] [address] 12/24/2023 10:30 AM ORCHARD MANAGER Appointment Department of Radiology, [facility], in [address] [phone] Noelle Reyes P.A.-C., P.A. [address] [place] [phone] 12/24/2023 11:00 AM ORCHARD MANAGER Lab Department of Infusion Therapy in [address] [phone] Noelle Reyes P.A.EmileC., P.A. [address] [place] [address] 12/24/2023 2:15 PM ORCHARD MANAGER Office Visit Department of Palliative Care in [address] [phone] Aylin Smith APRN, C.N.P., M.S.N. [address] [place] [phone] 12/24/2023 4:10 PM ORCHARD MANAGER Office Visit Department of Oncology in [place], [place] [address] [place] [phone] Ned Alegria M.D. [address] [place] [phone] Scheduled Referrals Name Type Priority Associated Diagnoses Order Schedule Pain Medicine office visit (clinic) Outpatient Referral Routine Other Chest Pain Expected: 09/30/2023 (Approximate), Expires: 12/31/2024 Pain Medicine - Nurse education visit (clinic) Outpatient Referral Routine Other Chest Pain Expected: 09/30/2023 (Approximate), Expires: 09/30/2024 Pain Medicine - Psychology consult (clinic) Outpatient Referral Routine Other Chest Pain Expected: 09/30/2023 (Approximate), Expires: 12/31/2024 documented as of this encounter Goals Goal Patient Goal Type Associated Problems Recent Progress Patient-Stated? Author Your pain? Symptom Management 9(11/20/2022 2:41 PM ORCHARD MANAGER) No Fee-Girma Bush, RCandidoN., O.C.N. Note: 05/24/2021: Pain algorithm completed. [facility] [place]/24/2021: Followup 06/07 via portal per patient [...] as of this encounter Visit Diagnoses Diagnosis Other Chest Pain- Primary documented in this encounter Additional Health Concerns Assessment Noted Time PHQ-9 Depression Total Score: 7 05/26/20 18 10:22 PM CDT documented as of this encounter Care Teams Bank Courier Relationship Specialty Start Date End Date Elsewhere, Pcp PCP - General Internal Medicine 10/14/22 documented as of this encounter
--- OUTSIDE RECORDS SUMMARY | 2023-12-18 17:26 | XMS_ITS | Encounter Summary ---
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 [address] [place] [address] 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 [address] [place] [address] [facility] Referral ID Status Reason Start Date Expiration Date V isits Requested Visits Authorized [id number] Authorized 10/27/2023 10/26/2026 1 1 E AND STORAGE CLERK Encounter Details Date Type Department Care Team (Late st Contact Info) Description 10/27/2023 Orders Only Department of Oncology in [place], [place] [address] [place] [phone] Noelle Reyes P.A.-C., P.A. 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 Never 02/03/2023 Do you belong to any clubs o r organizations such as advent groups, unions, fraternal or athletic groups, or [...] Answer Date Recorded PHQ-2 Score 0 04/25/2019 [facility] of Occupat ional [facility] - Occupational Stress Questionnaire Answer Date Recorded [...] place to sleep or slept in a nursing home (including now)? No 02/03/2023 Nutrition Answer [...] degree (e.g., MA, MS, Ana [place], MEd, FLY WORKER, GORDO) 02/15/2022 Sex and Gender Information Value Date Recorded Sex Assigned at Male 04/23/2018 1:23 PM CDT Gender Identity Male 04/23/2018 1:23 PM CDT Sexual Orientation Straight 04/23/2018 1: 23 PM CDT documented as of this encounter Plan of Treatment Upcoming Encounters Date Type Department Care Team (Late st Contact Info) Description 12/23/2023 8:30 AM SPACE AND STORAGE CLERK Clinical Communication Virtual Review in [place], [place] 200 [place] [address] 12/24/2023 10:30 AM SPACE AND STORAGE CLERK Appointment Department of Radiology, [facility], in [place], [place] [address] [place] [phone] Noelle Reyes P.A.-C., P.A. [address] [place] [phone] 12/24/2023 11:00 AM SPACE AND STORAGE CLERK Lab Department of Infusion Therapy in [place], [place] [address] [place] [phone] Noelle Reyes P.A.-C., P.A. [address] [place] [phone] 12/24/2023 2:15 PM SPACE AND STORAGE CLERK Office Visit Department of Palliative Care in [place], [place] [address] [place] [phone] Aylin Smith, CINDY, C.N.P., M.S.N. [address] [place] [phone] 12/24/2023 4:10 PM SPACE AND STORAGE CLERK Office Visit Department of Oncology in [place], [place] [address] [place] [phone] Ned Alegria M.D. 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) Expected: 12/02/2023 (Approximate), Expires: 01/25/2025 Bilirubin, Direct Lab Routine Malignant Neoplasm Of Rectum (HCC) Secondary Malignant Neoplasm Colon (HCC) Secondary Malignant Neoplasm Liver (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) Expected: 12/02/2023, Expires: 01/25/2025 CBC with Differential, Blood Lab Routine Malignant Neoplasm Of Rectum (HCC) Secondary Malignant Neoplasm Colon (HCC) Secondary Malignant Neoplasm Liver (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) Expected: 12/02/2023 (Approximate), Expires: 01/25/2025 CEA (Carcinoembryonic Antigen) Lab Routine Malignant Neoplasm Of Rectum (HCC) Secondary Malignant Neoplasm Colon (HCC) Secondary Malignant Neoplasm Liver (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) Expected: 12/02/2023 (Approximate), Expires: 01/25/2025 Comprehensive Metabolic Panel Lab Routine Malignant Neoplasm Of Rectum (HCC) Secondary Malignant Neoplasm Colon (HCC) Secondary Malignant Neoplasm Liver (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) Expected: 12/02/2023 (Approximate), Expires: 01/25/2025 Scheduled Referrals Name Type Priority Associated Diagnoses Orde r Schedule Oncology office visit (clinic) Outpatient Referral Routine Malignant Neoplasm Of Rectum (HCC) Secondary Malignant Neoplasm Colon (HCC) Secondary Malignant Neoplasm Liver (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 Author Your pain? Symptom Management 9(11/20/2022 2:41 PM SPACE AND STORAGE CLERK) Raisa Ferguson-Girma Bush, RCandidoN., O.C.N. Note: 05/24/2021: Pain algorithm completed. 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
--- OUTSIDE RECORDS SUMMARY | 2023-12-18 17:26 | XMS_ITS | Encounter Summary ---
Author Name Unknown Organization [facility] Address [address] [place] [address] Care Team Providers Care Septic Tank Servicer Name Role Phone Elsewhere, Pcp Primary Care Provider Unavailabl e Reason for Visit * Reason Comments Med Change Request Encounter Details Date Type Department Care Team (Late st Contact Info) Description 10/20/2023 Refill Department of Oncology in [place], [place] [address] [place] [phone] Kristi Dominique M.D. [address] [place] [phone] Med Change Request Social History Tobacco Use Types Packs/Day Years [...] often do you attend chur ch or tenriism services? Never 02/03/2023 Do you belong to any clubs o r organizations such as orthodox groups, unions, fraternal or athletic groups, or [...] Answer Date Recorded PHQ-2 Score 0 04/25/2019 [facility] of Occupat ional Health - Occupational Stress [...] place to sleep or slept in a mcc (including now)? No 02/03/2023 Nutrition Answer Date [...] degree (e.g., MA, MS, Ana [place], MEd, INSPECTOR RECEIVING, GORDO) 02/15/2022 Sex and Gender Information Value Date Recorded Sex Assigned at Male 04/23/2018 1:23 PM CDT Gender Identity Male 04/23/2018 1:23 PM CDT Sexual Orientation Straight 04/23/2018 1: 23 PM CDT documented as of this encounter Plan of Treatment Upcoming Encounters Date Type Department Care Team (Late st Contact Info) Description 12/23/2023 8:30 AM GREIGE GOODS INSPECTOR Clinical Communication Virtual Review in [place], [place] [address] [place] [address] 12/24/2023 10:30 AM GREIGE GOODS INSPECTOR Appointment Department of Radiology, [facility], in [place], [place] [address] [place] [phone] BosNoelle jiang P.A.-C., P.A. [address] [place] [phone] 12/24/2023 11:00 AM GREIGE GOODS INSPECTOR Lab Department of Infusion Therapy in [place], [place] [address] [place] [phone] Nolele Reyes P.A.-C., P.A. [address] [place] [phone] 12/24/2023 2:15 PM GREIGE GOODS INSPECTOR Office Visit Department of Palliative Care in [address] [phone] Aylin Smith APRN, C.NCandidoP., M.S.N. [address] [place] [phone] 12/24/2023 4:10 PM GREIGE GOODS INSPECTOR Office Visit Department of Oncology in [place], [place] [address] [place] [phone] Ned Alegria M.D. [address] [place] [phone] documented as of this encounter Goals Goal Patient Goal Type Associated Problems Recent Progress Patient-Stated? Author Your pain? Symptom Management 9(11/20/2022 2:41 PM GREIGE GOODS INSPECTOR) No Phyllis-Girma Bush, R.N., O.C.N. Note: 05/24/2021: Pain algorithm completed. [facility] 05/24/2021: Followup 06/07 via portal per patient [...] documented as of this encounter Care Teams Septic Tank Servicer Relationship Specialty Start Date End Date Elsewhere, Pcp PCP - General Internal Medicine 10/14/22 documented as of this encounter
--- OUTSIDE RECORDS SUMMARY | 2023-12-18 17:26 | XMS_ITS | Encounter Summary ---
Author Name Unknown Organization [facility] Address [address] [place] [address] Care Team Providers Care Bookkeeping Manager Name Role Phone Elsewhere, Pcp Primary Care Provider Unavailabl e Reason for Visit * Reason Comments Med Refill pantoprazole Encounter Details Date Type Department Care Team ([facility] st Contact Info) Description 12/10/2023 Refill Department of Oncology in [place], [place] [address] [place] [address] Giorgio Fishman M.D. [address] [place] [phone] Med Refill ( pantoprazole) Social History Tobacco Use Types Packs/Day Years [...] often do you attend chur ch or christianity services? Never 02/03/2023 Do you belong to any clubs o r organizations such as confucianism groups, unions, fraternal or athletic groups, or [...] Answer Date Recorded PHQ-2 Score 0 04/25/2019 [facility] of Occupat ional [facility] - Occupational Stress Questionnaire Answer Date [...] place to sleep or slept in a penitentiary (including now)? No 02/03/2023 Nutrition Answer Date [...] degree (e.g., MA, MS, [place], MEd, GOVERNMENT TEACHER, GORDO) 02/15/2022 Sex and Gender Information Value Date Recorded Sex Assigned at Male 04/23/2018 1:23 PM CDT Gender Identity Male 04/23/2018 1:23 PM CDT Sexual Orientation Straight 04/23/2018 1: 23 PM CDT documented as of this encounter Plan of Treatment Upcoming Encounters Date Type Department Care Team (Late st Contact Info) Description 12/23/2023 8:30 AM ESTIMATOR Clinical Communication Virtual Review in [place], [place] [address] [place] [address] 12/24/2023 10:30 AM ESTIMATOR Appointment Department of Radiology, [facility], in [place], [place] [address] [place] [phone] Noelle Reyes P.A.-C., P.A. [address] [place] [phone] 12/24/2023 11:00 AM ESTIMATOR Lab Department of Infusion Therapy in [place], [place] [address] [place] [address] Noelle Reyes P.A.-C., P.A. [address] [place] [phone] 12/24/2023 2:15 PM ESTIMATOR Office Visit Department of Palliative Care in [place], [place] [address] [place] [phone] Aylin Smith, CINDY, C.N.P., M.S.N. [address] [place] [phone] 12/24/2023 4:10 PM ESTIMATOR Office Visit Department of Oncology in [place], [place] [address] [place] [phone] Ned Alegria M.D. [address] [place] [phone] documented as of this encounter Goals Goal Patient Goal Type Associated Problems Recent Progress Patient-Stated? Author Your pain? Symptom Management 9(11/20/2022 2:41 PM ESTIMATOR) Raisa Ferguson-Girma Bush, RCandidoN., O.C.N. Note: 05/24/2021: Pain algorithm completed. [facility] 05/24/2021: Followup 06/07 via portal [...] Visit Diagnoses Diagnosis Malignant Neoplasm Of Rectum (HCC) documented in this encounter Additional Health Concerns Assessment Noted Time PHQ-9 Depression Total Score: 7 05/26/20 18 10:22 PM CDT documented as of this encounter Care Teams Bookkeeping Manager Relationship Specialty Start Date End Date Elsewhere, Pcp PCP - General Internal Medicine 10/14/22 documented as of this encounter
--- OUTSIDE RECORDS SUMMARY | 2023-12-18 17:26 | XMS_ITS | Encounter Summary ---
Author Name Unknown Organization [facility] Address [address] [place] [address] Care Team Providers Care Education Spec Name Role Phone Elsewhere, Pcp Primary Care Provider Unavailabl e Encounter Details Date Type Department Care Team (Latest Contact Info) Description 11/26/2023 3:45 PM CAN STACKER Clinical Communication Virtual Review in [place], [place] [address] [place], [place] [phone] Social History Tobacco Use Types Packs/Day Years [...] 02/03/2023 How often do you attend [facility] or baptist services? Never 02/03/2023 Do you belong to any clubs o r organizations such as buddhism groups, unions, fraternal or athletic groups, or [...] place to sleep or slept in a senior care (including now)? No 02/03/2023 Nutrition Answer Date [...] degree (e.g., MA, MS, [place], MEd, RETAIL SERVICE REPRESENTATIVE, GORDO) 02/15/2022 Sex and Gender Information Value Date Recorded Sex Assigned at Male 04/23/2018 1:23 PM CDT Gender Identity Male 04/23/2018 1:23 PM CDT Sexual Orientation Straight 04/23/2018 1: 23 PM CDT documented as of this encounter Plan of Treatment Upcoming Encounters Date Type Department Care Team (Late st Contact Info) Description 12/23/2023 8:30 AM CAN STACKER Clinical Communication Virtual Review in [place], [place] 200 [place] [address] 12/24/2023 10:30 AM CAN STACKER Appointment Department of Radiology, [facility], in [place], [place] [address] [place] [phone] Noelle Reyes P.A.-C., P.A. [address] [place] [phone] 12/24/2023 11:00 AM CAN STACKER Lab Department of Infusion Therapy in [place], [place] [address] [place] [phone] Noelle Reyes P.A.-C., P.A. [address] [facility] [place] [address] 12/24/2023 2:15 PM CAN STACKER Office Visit Department of Palliative Care in [place], [place] [address] [place] [phone] Aylin Smith APRN, C.N.P., M.S.N. [address] [place] [phone] 12/24/2023 4:10 PM CAN STACKER Office Visit Department of Oncology in [place], [place] [address] [place] [phone] Ned Alegria M.D. [address] [place] [phone] documented as of this encounter Goals Goal Patient Goal Type Associated Problems Recent Progress Patient-Stated? Author Your pain? Symptom Management 9(11/20/2022 2:41 PM CAN STACKER) Girma Gaspar, RCandidoN., O.C.N. Note: 05/24/2021: Pain algorithm completed. [facility] 05/24/2021: Followup 06/07 via [...] documented as of this encounter Care Teams Education Spec Relationship Specialty Start Date End Date Elsewhere, Pcp PCP - General Internal Medicine 10/14/22 documented as of this encounter
--- OUTSIDE RECORDS SUMMARY | 2023-12-18 17:26 | XMS_ITS | Encounter Summary ---
Author Name Unknown Organization [facility] Address [address] [place] [address] Care Team Providers Care Principal Statistical Programmer Name Role Phone Elsewhere, Pcp Primary Care Provider Unavailabl e Reason for Referral * Outpatient (Routine) - Closed Specialty Diagnoses / Procedures Referred By Halima owen Referred To Contact Palliative Medicine Diagnoses . Kari Austin APRN, C.N.PCandido, D.N.P. [address] [place] [phone] [facility] Referral ID Status Reason Start Date Expiration Date Visits Re quested Visits Authorized [id number] Closed 10/20/2023 10/19/2026 1 1 Scheduling Instructions Louisa Pierce. Please coordinate with in person visits. ECTIONAL PROGRAM SPECIALIST * Outpatient (Routine) - Closed Specialty Diagnoses / Procedures Referred By Halima owen Referred To Contact Social Work Diagnoses Counseling Life Circumstance Problem Kari Austin APRN C.N.PCandido, D.N.P. [address] [place] [address] [facility] Referral ID Status Reason Start Date Expiration Date Visits Re quested Visits Authorized [id number] Closed 10/20/2023 10/19/2024 1 1 Scheduling Instructions Video ECTIONAL PROGRAM SPECIALIST Reason for Visit * Outpatient (Routine) - Closed Specialty Diagnoses / Procedures Referred By Contlucas t Referred To Contact Palliative Medicine Diagnoses na Louisa Padilla P.A.-C. [address] [place] [phone] [facility] Referral ID Status Reason Start Date Expiration Date Visits Re quested Visits Authorized [id number] Closed 09/26/2023 09/25/2026 1 1 Encounter Details Date Type Department Care Team (Late st Contact Info) Description 10/20/2023 8:30 AM CORRECTIONAL PROGRAM SPECIALIST Telemedicine Department of Palliative Care in [place], [place] [address] [place] [phone] Louisa Padilla P.A.-C. [address] [place] [phone] Kari Austin APRN, C.N.P., D.N.P. [address] [place] [phone] Pain Cancer Associated (Primary Dx); Malignant Neoplasm Of Rectum (HCC); Pain Neuropathic; Pain Low Back Unspecified; Nausea And Vomiting; Constipation; Counseling Life Circumstance Problem; Palliative Care Social History Tobacco Use Types [...] often do you attend chur ch or sabianism services? Never 02/03/2023 Do you belong to any clubs o r organizations such as quaker groups, unions, fraternal or athletic groups, or [...] Answer Date Recorded PHQ-2 Score 0 04/25/2019 [facility] - Occupational Stress [...] place to sleep or slept in a long-term (including now)? No 02/03/2023 Nutrition Answer Date [...] degree (e.g., MA, MS, Ana Lilia, MEd, DIRECTOR COUNCIL ON AGING, [employer]ORDO) 02/15/2022 Sex and Gender Information Value Date Recorded Sex Assigned at Male 04/23/2018 1:23 PM CDT Gender Identity Male 04/23/2018 1:23 PM CDT Sexual Orientation Straight 04/23/2018 1: 23 PM CDT documented as of this encounter Progress Notes * Kari Austin APRN, C.N.P., D.N.P. - 10/20/2023 8:30 AM CST SUBJECTIVE CHIEF COMPLAINT/REASON FOR VISIT Luis Tabares is a 43 y.o. male with metastatic rectal cancer who is followed in the outpatient Palliative Care Clinic for non-pain symptoms, pain, and psychosocial support. established patient visit Visit conducted via virtual visit. The following person/people were also present during the discussion: None Medical Record review was conducted prior to the virtual visit. Date of last in-person clinic visit: 09/26 Interval History: Presents for routine follow up. Last saw Louisa Padilla PA-C on 09/26 for initial consult. Luis shares he is doing pretty good today. Currently in the airport flying home from a work trip. Pain is really really good after initiation of the combination of methadone and nerve block throughPain Medicine. Back pain has significantly improved therefore sleep has improved. Continues scheduled methadone. Has needed PRN hydromorphone only 2-3 times since starting methadone. Utilizing 4 mg dose. No sleepiness or grogginess with medication changes. Since discontinuing gabapentin, neuropathy in hands and feet have worsened. It is important to maintain good cognitive clarity for his work. He is currently on a work leave during chemotherapy, but hopes to return after completion. Denies constipation. Continues daily enema. Chemotherapy has been going well, has completed two rounds. He has developed a acneform type rash on his face that is bothersome to him. He will see Dermatology next Friday. He is currently managingwith oral doxycycline and oral steroids. Not currently utilizing topical steroid. Had some nausea / vomiting with first week of chemo. Managing with PRN anti emetics. Takes olanzapine 5 mg at bedtime days 1-4 post chemo. Appetite is good. He is doing well emotionally. He and his continue to navigate communicating cancer with their 7 year old son. They hope to get through the holidays. OBJECTIVE PHYSICAL EXAM General: Alert, appropriately interactive over the video, no acute distress Lungs: non-labored breathing pattern during conversation Psychiatric: Oriented X 3, intact recent and remote memory, judgment and insight, congruent mood and affect. ASSESSMENT / PLAN #1 Pain Cancer Associated #2 Malignant Neoplasm Of Rectum (HCC) #3 Pain Neuropathic #4 Pain Low Back Unspecified #5 Nausea And Vomiting #6 Constipation #7 Counseling Life Circumstance Problem #8 Palliative Care Luis Tabares is a 43 y.o. male with metastatic rectal cancer who is followed in the outpatient Palliative Care Clinic for non-pain symptoms, pain, and psychosocial support. It was a pleasure meeting Luis today for routine follow up. Symptoms, specifically pain, has significantly improved since our last visit. We are both very pleased by this. No changes to current regimen. He has had worsening neuropathy with being off the gabapentin, could also be related to restarting chemo. He would like to continue to watch. Will re assessat next visit, could consider restarting gabapentin. He is taking anti emetics as needed with chemo. With methadone and PRN anti emetics - he is scheduled for EKG next week for routine QTc monitoring. For constipation, he continues daily enemas. He has been on this regimen since initial rectal surgery. Most recent platelets (09/09) were 95. Continue to watch platelet function closely. Given his surgical history and risk for constipation, we will need to weigh risks of bleeding versus benefit of enema in constipation management moving forward. Referral to palliative care social work placed today. Hopeful they can help support Luis and his in engaging in conversation about his illness with their 7 year old son. RECOMMENDATIONS PAIN: Continue methadone 2.5 mg scheduled morning and night. Routine EKG next week. Continue hydromorphone 4-6 mg every four hours as needed for breakthrough pain OK to use Tylenol or ibuprofen if helpful OK to use THC at night If neuropathy continues or worsens, could consider restarting gabapentin Has prescription for emergency Narcan Opioid Summary Opioid Need: This patient has a condition that necessitates treatment with an opioid for longer than 7 days. Additionally, a non-opioid alternative was not appropriate or inadequate to manage patient???s pain. Diagnosis related to controlled substance prescribing: Cancer related pain [place] [employer] [facility] Review: We have reviewed the patient's record in the [place] prescription monitoring program 10/20/2023. Opioid Toxicity Review: We have reviewed the risks of opioid therapy and completed an assessment oftoxicities. Opioid Aberrant Use Concerns: None Recommended Opioid Regimen as of 10/20/2023.: as above Current Oral Morphine Equivalents (OME/MME): 5 mg of methadone Methadone EKG monitoring: Last QTc 457 ms, Next EKG due: 10/28 Opioid Risk Score: Last Opioid Risk Tool charting Flowsheet Row Comprehensive Visit from 09/26/2023 in Department of Palliative Care in [place], [place] ORT Total Score (max 26) 1 CONSTIPATION: Continue bowel regimen Goal is for soft, moderately sized bowel movement every 1-2 days NAUSEA / VOMITING: Olanzapine as advised by oncology with chemo regimen Zofran and compazine as needed Repeat EKG next week COPING: Referral to palliative care social services director to discuss communicating cancer diagnosis with his son / resources Follow up visit: 6 weeks in person, sooner if needs arise. I personally spent a total of 30 minutes. Consult conducted via real-time audio/video technology by Kari Austin APRN, C.NNaima, BeckyN.PCandido in [facility] to the patient in Airport , privacy ensured Kari Austin APRN, C.N.P., Iris.N.P. ECTIONAL PROGRAM SPECIALIST documented in this encounter Plan of Treatment Upcoming Encounters Date Type Department Care Team (Late st Contact Info) Description 12/23/2023 8:30 AM CORRECTIONAL PROGRAM SPECIALIST Clinical Communication Virtual Review in [place], [place] [address] [place] [address] 12/24/2023 10:30 AM CORRECTIONAL PROGRAM SPECIALIST Appointment Department of Radiology, [facility], in [place], [place] [address] [place] [phone] Noelle Ryees, P.A.-C., P.A. [address] [place] [phone] 12/24/2023 11:00 AM CORRECTIONAL PROGRAM SPECIALIST Lab Department of Infusion Therapy in [address] [phone] Noelle Reyes, P.A.-C., P.A. [address] [place] [phone] 12/24/2023 2:15 PM CORRECTIONAL PROGRAM SPECIALIST Office Visit Department of Palliative Care in [address] [phone] Aylin Smith APRN, Tristan.N.P., M.S.N. [address] [place] [phone] 12/24/2023 4:10 PM CORRECTIONAL PROGRAM SPECIALIST Office Visit Department of Oncology in [place], [place] [address] [place] [phone] Ned Alegria M.D. [address] [place] [phone] Scheduled Referrals Name Type Priority Associated Diagnoses Orde r Schedule Social Work - General consult (clinic) Outpatient Referral Routine Counseling Life Circumstance Problem Expected: 10/20/2023 (Approximate), Expires: 01/18/2025 Palliative Care office visit (clinic) Outpatient Referral Routine Expected: 12/01/2023, Expires: 01/18/2025 documented as of this encounter Goals Goal Patient Goal Type Associated Problems Recent Progress Patient-Stated? Author Your pain? Symptom Management 9(11/20/2022 2:41 PM CORRECTIONAL PROGRAM SPECIALIST) No Fee-Girma Bush, RCandidoN., O.C.N. Note: 05/24/2021: Pain algorithm completed. [facility] 05/24/2021: Followup 06/07 via portal per patient [...] Visit Diagnoses Diagnosis Pain Cancer Associated- Primary Malignant Neoplasm Of Rectum (HCC) Pain Neuropathic Pain Low Back Unspecified Nausea And Vomiting Constipation Counseling Life Circumstance Problem Palliative Care documented in this encounter Additional Health Concerns Assessment Noted Time PHQ-9 Depression Total Score: 7 05/26/20 18 10:22 PM CDT documented as of this encounter Care Teams Principal Statistical Programmer Relationship Specialty Start Date End Date Elsewhere, Pcp PCP - General Internal Medicine 10/14/22 documented as of this encounter
--- OUTSIDE RECORDS SUMMARY | 2023-12-18 17:26 | XMS_ITS | Encounter Summary ---
Author Name Unknown Organization [facility] Address [address] [place] [address] Care Team Providers Care National Sales Trainer Name Role Phone Elsewhere, Pcp Primary Care Provider Unavailabl e Encounter Details Date Type Department Care Team (Late st Contact Info) Description 10/28/2023 Ancillary Procedure Department of Dermatology Social History Tobacco Use Types Packs/Day Years [...] week 02/03/2023 How often do you attend [facility] or church services? Never 02/03/2023 Do you belong to [...] Date Recorded PHQ-2 Score 0 04/25/2019 [facility] Occupat ional Health - Occupational Stress [...] degree (e.g., MA, MS, Ana Lilia, MEd, IMMUNOPATHOLOGIST, [employer]ORDO) 02/15/2022 Sex and Gender Information Value Date Recorded Sex Assigned at Male 04/23/2018 1:23 PM CDT Gender Identity Male 04/23/2018 1:23 PM CDT Sexual Orientation Straight 04/23/2018 1: 23 PM CDT documented as of this encounter Plan of Treatment Upcoming Encounters Date Type Department Care Team (Late st Contact Info) Description 12/23/2023 8:30 AM CONTACT WORKER Clinical Communication Virtual Review in [place], [place] [address] [place] [address] 12/24/2023 10:30 AM CONTACT WORKER Appointment Department of Radiology, [facility], in [place], [place] [address] [place] [phone] Noelle Reyes P.A.[place]., P.A. [address] [place] [phone] 12/24/2023 11:00 AM CONTACT WORKER Lab Department of Infusion Therapy in [place], [place] [address] [place] [phone] Noelle Reyes P.A.-C., P.A. [address] [place] [phone] 12/24/2023 2:15 PM CONTACT WORKER Office Visit Department of Palliative Care in [place], [place] [address] [place] [phone] Aylin Smith, CINDY CCandidoN.P., M.S.N. [address] [place] [phone] 12/24/2023 4:10 PM CONTACT WORKER Office Visit Department of Oncology in [place], [place] [address] [place] [phone] Ned Alegria M.D. [address] [place] [phone] documented as of this encounter Goals Goal Patient Goal Type Associated Problems Recent Progress Patient-Stated? Author Your pain? Symptom Management 9(11/20/2022 2:41 PM CONTACT WORKER) No Phyllis-Girma Bush, R.N., O.C.N. Note: 05/24/2021: Pain algorithm completed. [facility] 05/24/2021: Followup 06/07 via portal per patient [...] needed. KFS documented as of this encounter Procedures Procedure Name Priority Date/Time Associated Diagnosis Comments DERMATOLOGY IMAGE EXAM Routine 10/28/2023 12:00 AM CONTACT WORKER documented in this encounter Results * Entire Body-Dermatology Image Exam (10/28/2023 12:00 AM CONTACT WORKER) Narrative [facility] - 10/29/2023 8:29 AM CONTACT WORKER This order has been created and auto-finalized to support the import of images acquired without order. The clinical documentation to support these images can be found on the encounter that produced images. Provider Not In System IMG NON RAD IMAGI NG PROCEDURES [facility] NA documented in this encounter Visit Diagnoses Not on filedocumented in this encounter Additional Health Concerns Assessment Noted Time PHQ-9 Depression Total Score: 7 05/26/20 18 10:22 PM CDT documented as of this encounter Care Teams National Sales Trainer Relationship Specialty Start Date End Date Elsewhere, Pcp PCP - General Internal Medicine 10/14/22 documented as of this encounter
--- OUTSIDE RECORDS SUMMARY | 2023-12-18 17:26 | XMS_ITS | Encounter Summary ---
Author Name Unknown Organization [facility] Address [address] [place] [phone] Care Team Providers Care Special Delivery Messenger Name Role Phone Elsewhere, Pcp Primary Care Provider Unavailabl e Reason for Visit * Outpatient (Routine) - Closed Specialty Diagnoses / Procedures Referred By Halima t Referred To Contact Social Work Diagnoses Counseling Life Circumstance Problem GeovannaKari Neal APRN C.N.P., D.N.P. [address] [place] [phone] [facility] Referral ID Status Reason Start Date Expiration Date Visits Re quested Visits Authorized [id number] Closed 10/20/2023 10/19/2024 1 1 Encounter Details Date Type Department Care Team (Late st Contact Info) Description 10/22/2023 3:00 PM COMMUNICATIONS EQUIPMENT OPERATOR Telemedicine Department of Palliative Care in [place], [place] [address] [place] [phone] Kari Austin APRN, C.N.P., D.N.P. [address] [place] [phone] Annie Mak L.I.C.S.W., M.S.W. [address] [place] [phone] Palliative Care (Primary Dx); Counseling Life Circumstance Problem Social History Tobacco Use Types Packs/Day Years [...] often do you attend chur ch or baptism services? Never 02/03/2023 Do you belong to any clubs o r organizations such as jehovah's witness groups, unions, fraternal or athletic groups, or [...] Answer Date Recorded PHQ-2 Score 0 04/25/2019 [facility] of Occupat ional Health - Occupational Stress [...] place to sleep or slept in a skilled nursing (including now)? No 02/03/2023 Nutrition Answer Date [...] Master's degree (e.g., MA, MS, Ana Lilia, Berna, FIXED INCOME MANAGER, GORDO) 02/15/2022 Sex and Gender Information Value Date Recorded Sex Assigned at Male 04/23/2018 1:23 PM CDT Gender Identity Male 04/23/2018 1:23 PM CDT Sexual Orientation Straight 04/23/2018 1: 23 PM CDT documented as of this encounter Progress Notes * Annie Mak L.I.C.S.W., M.S.W. - 10/22/2023 3:00 PM CST SUBJECTIVE Chief Complaint: electric utility lineworker consulted to provide supportive counseling around grief, loss and adjustment to illness, education and navigation of resources. Diagnosis: #1 Counseling Life Circumstance Problem #2 Palliative Care Service type(s): family Present for the visit: patient and Dolores Patient and Dolores share they have been together for ten years. He shares he is originally from [place], his family is still there. Dolores is from the [facility] and her family remains there. They have a 7 year old son, Shravan. They share that patient was initially diagnosed with cancer when Shravan was a year old. They are reflective that patient's cancer is all Shravan has known. They inquire today about how to best begin and continue more candid communication with Shravan about the cancer. Spoke about best resources to help talk to kids about cancer; [facility], Jerman Desal[employer], and the book How to Help Children Through a Parent's Serious Illness. Spoke about the importance of honesty according to developmental age and that all children need to know they did not cause this, who will care for him. Spoke about how children will react and the normality of reactions. Encouraged them to offer opportunity for questions, explained that not all information needs to be shared at once, but each conversation will build on the next. Shared that it's also ok to tell children you 'don't know' but can look to answer it. Spoke about local resources to also consider for kids/family going thru cancer of a parent, Annabella's and [employer]erman Ortiz, and [facility]. Will send them additional resources as well. Supportive counseling provided regarding the experience of living with a life- threatening illness and the feelings that may wax / wane throughout cancer journey. Spoke about how our anxiety is greatly impacted during periods of uncertainty. Extended supportive counseling through empathy, active, & reflective listening. Validated & normalized thoughts, feelings, emotions & experiences around cancer diagnosis & treatments. Encouraged patient to be intentional each day to engage in activities that bring chauncey, meaning &thought distraction. Patient shares that he enjoys sports and his job. He is reflective on work, incessant changes from cancer, and [place]. He verbalized much appreciation for the palliative team and how significantly his pain has improved. Supportive counseling provided regarding the experience of living with a life-threatening illness and the feelings that may wax / wane throughout treatment. Extended supportive counseling through empathy, active, & reflective listening. Validated & normalized thoughts, feelings, emotions & experiences around cancer diagnosis & treatments. Re-education provided about Social Work role & availability within Palliative Care team. Offered to provide continued on-going supportive counseling throughout cancer care journey here at [facility]. Patient was accepting of offer. Encouraged patient and Dolores to reach out if questions, concerns or desire for supportive counseling arise prior to our next scheduled appointment. OBJECTIVE Please see portal message for education materials were provided. Mental Status Exam Orientation: Oriented to person, place and time Level of consciousness: Awake and alert Appearance: Age appearing, Tense, and Well-groomed Behavior observed: Calm and Interactive Memory, recent and remote: Excellent based on ease of recall of past and recent events Attention/Concentration: Excellent based on continued engagement with this telegraphic typewriter operator during visit. Cooperation: Cooperative Mood: Calm Affect: Stable Speech: Articulate, Coherent, and Within normal limits for volume, rate and tone Thought process: Logical, linear, and goal-directed Thought content, auditory/visual hallucinations and/or delusions: No abnormality noted Judgment: intact Insight: intact Motivation for treatment: Adequate ASSESSMENT Luis has insight into cancer diagnosis & cancer-directed treatment care plan. Luis continues aminta motivated to engage within cancer-directed treatment. There is also perspective around coping, grief / loss, adjustment, mental health, & psychosocial stressors. Patient is a very pleasant 43 year old male diagnosed with rectal cancer, lives in [facility] with his and son. Patient and Dolores ask many appropriate questions around resources to talk to their son more about cancer, they were receptive to information and recommendations provided. They identify support thru friends andfamily. Patient continues to enjoy working. They declined social work follow up, but verbalized appreciation for visit today and will reach if needs or questions arise. Interventions Provided: Supportive Counseling Regarding the experience of Living with a life threatening illness, Child Development Education, Psychoeducation on talking to kids about cancer, Reflective Listening, Motivational Interviewing PLAN 1. Luis and Dolores will review information sent via portal 2. Social work is available should needs arise, patient was provided with my contact information. Consult conducted via real-time audio technology by Jameson Gant M.S.WCandido in [facility] to the patient in the patient's home. Type of service: Supportive counseling and Resource referrals and connection Start time: 1500 End time: 1545 LUCAS Gant 10/22/2023 UNICATIONS EQUIPMENT OPERATOR documented in this encounter Plan of Treatment Upcoming Encounters Date Type Department Care Team (Late st Contact Info) Description 12/23/2023 8:30 AM COMMUNICATIONS EQUIPMENT OPERATOR Clinical Communication Virtual Review in [place], [place] 200 [place] [address] 12/24/2023 10:30 AM COMMUNICATIONS EQUIPMENT OPERATOR Appointment Department of Radiology, [facility], in [place], [place] [address] [place] [phone] Noelle Reyes P.A.-C., P.A. [address] [place] [phone] 12/24/2023 11:00 AM COMMUNICATIONS EQUIPMENT OPERATOR Lab Department of Infusion Therapy in [address] [phone] Noelle Reyes, P.A.-C., P.A. [address] [place] [phone] 12/24/2023 2:15 PM COMMUNICATIONS EQUIPMENT OPERATOR Office Visit Department of Palliative Care in [address] [phone] Aylin Smith, CINDY, C.N.P., M.S.N. [address] [place] [phone] 12/24/2023 4:10 PM COMMUNICATIONS EQUIPMENT OPERATOR Office Visit Department of Oncology in [place], [place] [address] [place] [phone] Ned Alegria M.D. [address] [place] [phone] documented as of this encounter Goals Goal Patient Goal Type Associated Problems Recent Progress Patient-Stated? Author Your pain? Symptom Management 9(11/20/2022 2:41 PM COMMUNICATIONS EQUIPMENT OPERATOR) No Phyllis-Girma Bush R.N., O.C.N. Note: 05/24/2021: Pain algorithm completed. [facility] [place] 05/24/2021: Followup 06/07 [...] as of this encounter Visit Diagnoses Diagnosis Palliative Care- Primary Counseling Life Circumstance Problem documented in this encounter Additional Health Concerns Assessment Noted Time PHQ-9 Depression Total Score: 7 05/26/20 18 10:22 PM CDT documented as of this encounter Care Teams Special Delivery Messenger Relationship Specialty Start Date End Date Elsewhere, Pcp PCP - General Internal Medicine 10/14/22 documented as of this encounter
--- OUTSIDE RECORDS SUMMARY | 2023-12-18 17:27 | XMS_ITS | Encounter Summary ---
Author Name Unknown Organization [facility] Address [address] [place] [address] Care Team Providers Care Ditch Tender Name Role Phone Elsewhere, Pcp Primary Care Provider Unavailabl e Encounter Details Date Type Department Care Team (Late st Contact Info) Description 09/06/2023 Orders Only Department of Oncology in [place], [place] [address] [place] [phone] Manny Farfan M.D. [address] [place] [phone] Social History Tobacco Use Types Packs/Day Years [...] often do you attend chur ch or hindu services? Never 02/03/2023 Do you belong to any clubs o r organizations such as hinduism groups, unions, fraternal or athletic groups, or [...] Answer Date Recorded PHQ-2 Score 0 04/25/2019 [facility] of Occupat ional Health - [...] place to sleep or slept in a jail (including now)? No 02/03/2023 Nutrition Answer Date [...] degree (e.g., MA, MS, Ana Lilia, MEd, XEROX MACHINE OPERATOR, GORDO) 02/15/2022 Sex and Gender Information Value Date Recorded Sex Assigned at Male 04/23/2018 1:23 PM CDT Gender Identity Male 04/23/2018 1:23 PM CDT Sexual Orientation Straight 04/23/2018 1: 23 PM CDT documented as of this encounter Plan of Treatment Upcoming Encounters Date Type Department Care Team (Late st Contact Info) Description 12/23/2023 8:30 AM STUCCO PLASTERER Clinical Communication Virtual Review in [place], [place] [address] [place] [address] 12/24/2023 10:30 AM STUCCO PLASTERER Appointment Department of Radiology, [facility], in [place], [place] [address] [place] [phone] Noelle Reyes, P.A.[place]., P.A. [address] [place] [phone] 12/24/2023 11:00 AM STUCCO PLASTERER Lab Department of Infusion Therapy in [place], [place] [address] [place] [phone] Noelle Reyes P.A.-C., P.A. [address] [place] [phone] 12/24/2023 2:15 PM STUCCO PLASTERER Office Visit Department of Palliative Care in [place], [place] [address] [place] [phone] Aylin Smith APRN, C.N.P., M.S.N. [address] [place] [phone] 12/24/2023 4:10 PM STUCCO PLASTERER Office Visit Department of Oncology in [place], [place] [address] [place] [phone] Ned Alegria M.D. [address] [place] [phone] documented as of this encounter Goals Goal Patient Goal Type Associated Problems Recent Progress Patient-Stated? Author Your pain? Symptom Management 9(11/20/2022 2:41 PM STUCCO PLASTERER) No Phyllis-Girma Bush, RCandidoN., O.C.N. Note: 05/24/2021: Pain algorithm completed. [facility] 05/24/2021: Followup 06/07 [...] documented as of this encounter Care Teams Ditch Tender Relationship Specialty Start Date End Date Elsewhere, Pcp PCP - General Internal Medicine 10/14/22 documented as of this encounter
--- OUTSIDE RECORDS SUMMARY | 2023-12-18 17:27 | XMS_ITS | Encounter Summary ---
Author Name Unknown Organization [facility] Address [address] [place] [phone] Care Team Providers Care Mosaic Floor Layer Name Role Phone Elsewhere, Pcp Primary Care Provider Unavailabl e Reason for Referral * Outpatient (Routine) - Closed Specialty Diagnoses / Procedures Referred By Contac t Referred To Contact Diagnoses Malignant Neoplasm Of Rectum (HCC) Pain Cancer Associated Procedures ECG 12 Lead Louisa Padilla P.A.-C. [address] [place] [phone] [facility] Referral ID Status Reason Start Date Expiration Date Visits Re quested Visits Authorized [id number] Closed 10/02/2023 10/01/2024 1 1 CH COUPLER * Outpatient (Routine) - Closed Specialty Diagnoses / Procedures Referred By Contac t Referred To Contact Palliative Medicine Diagnoses na Louisa Padilla P.A.-C. 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 [address] [place] [address] [facility] Referral ID Status Reason Start Date Expiration Date Visits Re quested Visits Authorized [id number] Closed 09/10/2023 09/09/2024 1 1 Encounter Details Date Type Department Care Team (Latest Contact Info) Description 09/26/2023 1:00 PM SWITCH COUPLER Comprehensive Visit Department of Palliative Care in [place], [place] [address] [place] [phone] Giorgio Fishman M.D. [address] [place] [address] Louisa Padilla P.A.-C. [address] [place] [phone] Sunita Nguyen R.N. 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 Never 02/03/2023 Do you belong to any clubs o r organizations such as uatsdin groups, unions, fraternal or athletic groups, or [...] Answer Date Recorded PHQ-2 Score 0 04/25/2019 [facility] - Occupational Stress Questionnaire Answer [...] degree (e.g., MA, MS, Ana Lilia, MEd, DESKTOP PUBLISHING OPERATOR, [employer]O) 02/15/2022 Sex and Gender Information Value Date Recorded Sex Assigned at Male 04/23/2018 1:23 PM CDT Gender Identity Male 04/23/2018 1:23 PM CDT Sexual Orientation Straight 04/23/2018 1: 23 PM CDT documented as of this encounter Last Filed Vital Signs Vital Sign Reading Time Taken Comments Blood Pressure 146/100 09/26/2023 12:56 PM SWITCH COUPLER Pulse 117 09/26/2023 12:56 PM SWITCH COUPLER Temperature 36.3 ??C (97.3 ??F) 09/26/2023 12:[address] Respiratory Rate - - Oxygen Saturation 98% 09/26/2023 12:56 PM SWITCH COUPLER Inhaled Oxygen Concentration - - Weight - - Height - - Body Mass Index - - documented in this encounter Patient Instructions * Patient Instructions* Sunita Nguyen R.N. - 09/26/2023 1:00 PM SWITCH COUPLER PAIN: -start methadone. Long acting pain medication. Methadone 2.5 mg, two times a day (morning and night) -continue hydromorphone 4 mg, 4-6 mg every 4 hours as needed for breakthrough pain -ok to use tylenol or ibuprofen if helpful -ok to use THC at night -stop gabapentin and Cymbalta -narcan at home Will call/portal mid next week to check in -follow up appointment in about 3 weeks, video visit General Information Methadone is a long-acting pain medication. Instructions for Use You may not notice any change in symptoms for several days to a week after starting it Schedule this as close to every 12 hours apart as possible. Do not adjust how you take this medication or suddenly stop taking without first discussing with your palliative care team You may be asked to complete intermittent electrocardiogram (ECG) testing to help ensure safe dosing. Precautions Do not drink alcohol or use recreational drugs Do not take any other controlled substances prescribed by any other health care provider without first talking to your Palliative Care team. There are numerous medications that can interact with Methadone levels in your body. Contact the Palliative care team prior to starting any new medications. If you notice changes in your thinking, level of alertness, or breathing or your pain rapidly changes contact the palliative care team right away. This medication can cause constipation, so a daily bowel regimen is recommended. Seek emergency care if you develop symptoms of an allergic reaction (hives, feeling short of breath, swelling of tongue or lips), difficulty breathing, or confusion. Store in a safe place where children, vulnerable adults, and pets cannot access it. To prevent your medication from getting stolen, as well as to protect others, store your medicationin something you can lock, such as a lockbox or a safe. Bowel Care Opioid pain medications can slow your bowels causing constipation. Scheduling bowel medications will treat this side effect. There are several esmp-iae-jccyuah options. Goal is to have a soft, moderately sized bowel movement every 1-2 days. Senokot-S (Senna-S) 1-2 tablets 1-2 times daily This will help soften the stool and move it through If having frequent stools, ok to decrease to one dose daily or hold for a day polyethylene glycol (MiraLAX) one capful (17 gms) in 8 ounces of water or juice daily This will help soften the stool If having loose stools, ok to hold for a day If you have issues with loose or frequent stools or constipation dose not resolve, contact the palliative care team for further guidance. Palliative Care Clinic Team: [phone] CH COUPLER documented in this encounter Progress Notes * Sunita Nguyen R.N. - 09/26/2023 1:00 PM CST Palliative Care Introduction I introduced the patient and/or family to role of palliative medicine in the care of patients with serious illness, namely expertise in pain and non-pain symptom management, psychosocial, and spiritual support for patients and families as well as assistance in broader medical decision making. Palliative Medicine Clinic team sheet and contact information was reviewed with the patient. Chief Complaint/Purpose of Visit Patient was here for patient education. Patient was referred by Louisa Padilla PA-C Impression/Report/Plan Please see After Visit Summary for specific patient instructions. Patient Education: Education provided to patient For details involving the learning needs assessment, teaching methods used, and evaluation of learning, please refer to the patient education flowsheet. Education topics covered in this visit include: Clinic Care Team/Contacting the Clinic, Pain, Medication Safety , and Opioid Medication Palliative Medicine Clinic face sheet & contact information, Palliative Care: Care for People with Serious Illness [id number] and Integrative and Supportive Therapies for Palliative Care Patients [id number] provided at this visit. Standard Opioid education included: Medication specific education for Methadone and hydromorphone Safe Management of Controlled Substances [id number] Important Information About Opioid Medication [id number] (page 7 opioid withdrawal) Treating Constipation Caused by Pain Medications [id number] Follow-up as per the consult note of Louisa Padilla PA-C CH COUPLER documented in this encounter Consult Notes * Louisa Padilla P.A.-C. - 09/26/2023 1:00 PM CST [facility] Outpatient Palliative Care Consult Note Patient: Luis Tabares; 43 y.o.male Date of Service: 09/26/2023 REFERRING SERVICE Oncology LOCATION Palliative Care Clinic SUBJECTIVE CHIEF COMPLAINT / REASON FOR CONSULT Luis aTbares is a 43 y.o. male with a history of metastatic rectal cancer. Reason for referral includes symptom management. HISTORY OF PRESENT ILLNESS The patient's medical history has been well delineated in the electronic medical record. I refer you to the detailed notes of medical oncology for full details. Briefly, Mr Tabares was initially diagnosed in April 2018 with locally advanced rectal cancer that was treated with long course radiation (28 fraction, 64.4 Gy) with capecitabine, followed by laparoscopic proctectomy with colo anal anastomosis. He has been treated with several different regimens of ch emotherapy. Third line therapy was started in November 2022. A metastatic recurrence in the right lung status post multiple wedge excision on 09/27/2019, with metastases identified in the right middle lobe, right lower lobe, and again in the right lower lobe. He has been on gabapentin since this surgery. 05/16/2021, he had repeat metastatic recurrent, this time in a right-sided 5th rib, and LADARIUS lung lesion, and potentially in the liver. This was managed with radiation, up to 3600 cGy, to the 5th rib lesion. Over the last 2 months he has been suffering with increasing pain. He has upper quadrant pain that is relatively constant (with the exception of today when he is not experiencing pain, though this isvery out of the ordinary). He has been told this pain is related to a conglomeration of lymph nodes. Oncology plans to restart chemo with the hope of targeting this growth and reducing pain. He had a recent Splanchnic/celiac plexus block: non-neurolytic block on 09/03 which was not effective in reducing pain He also has a second site of pain in his right upper back /scapular region that extends to his lateral chest wall and to the anterior breast bone just inferior to his nipple. He had intercostal injections to Right T5, T7 on 09/29, he is uncertain if these were successful as of yet. As of now, he doesn't feel he has a treatment regimen that is effective to treat his pain. 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 He has been most recently taking dilaudid 4 mg, tried oxycodone 5 mg in the past. Neither helpful, but he will take one twice daily, generally in the evening after work and after his parental responsibilities are reduced. He does find using a THC gummy at 10-20 mg is helpful, he takes one at night when he needs to calm down to get sleep. This is not every night. [place] [facility] Cann[place] products were trialed and not helpful. Palliative Medicine Symptom Assessment: Pain: as above Dyspnea: denies Bowels: The patient did have a bowel movement in the past 48 hours. He uses a daily enema for bowelregimen due to his initial rectal cancer surgery. Nausea/Vomiting: denies Anxiety: denies Other: The following portions of the patient's history were reviewed and updated as appropriate: Allergies, Current Medications, Medical History, Surgical History, and Social History Medical/Surgical/Family/Social/Spiritual History Summary He will be starting medical leave on Friday09/29/23 to focus on his health as he will be resuming chemotherapy that he took in the past and recalls being quite challenging. [place] a period of time due to his situation. He has a 7 year old son that he and his are anticipating the need to have further conversations about his illness. Patient's Primary Caregiver: Spouse or Partner. Advance Care Planning Documents Did not discuss Palliative Functional Assessment 80%- Full ambulation, Normal activity with effort and some evidence of disease, Full self-care, Normal or reduced intake, Full level of consciousness OBJECTIVE PHYSICAL EXAM Temperature: [36.3 ??C] 36.3 ??C Blood Pressure: (146)/(100) 146/100 SpO2: [98 %] 98 % Pulse Rate: [117] 117 General: well appearing; no acute distress Skin: Good turgor, no rash Eyes: Conjunctiva clear & non-icteric Lungs: no use of accessory muscles of respiration, non-labored breathing pattern. Pain able to be elicited with palpation of the right chest wall. Abdomen: Bowel sounds present, non-tender, non-distended Extremities: No lower extremity edema noted. Gait: normal, independent Neurologic: No gross sensory or motor deficits. No myoclonus. Psychiatric: Oriented X 3, intact recent and remote memory, judgment and insight, congruent mood and affect. Diagnostics I have reviewed recent labs, imaging, and other diagnostics. 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 Discussed Mr Tabares care and pain management with Dr Alex Hebert who participated in the recommendations/treatment planning. RECOMMENDATIONS: Physical Aspects of Care: Pain: -start methadone. Long acting pain medication. Methadone 2.5 mg, two times a day (morning and night) -continue hydromorphone 4 mg, 4-6 mg every 4 hours as needed for breakthrough pain -ok to use tylenol or ibuprofen if helpful -ok to use THC at night -stop gabapentin and Cymbalta, stop oxycodone -narcan at home Opioid Summary Opioid Need: This patient has a condition that necessitates treatment with an opioid for longer than 7 days. Additionally, a non-opioid alternative was not appropriate or inadequate to manage patient's pain. Diagnosis related to controlled substance prescribing: cancer related pain State GEOSCIENCE TECHNICIAN Review: We have reviewed the patient's record in the [place] prescription monitoring program September 26, 2023. Opioid Toxicity Review: We have reviewed the risks of opioid therapy and completed an assessment oftoxicities. Opioid Aberrant Use Concerns: None Recommended Opioid Regimen as of September 26, 2023.: as above Opioid Risk Score: Last Opioid Risk Tool charting Flowsheet Row Comprehensive Visit from 09/26/2023 in Department of Palliative Care in [place], [place] ORT Total Score (max 26) 1 We have reviewed risks, benefits and alternatives related to opioid prescribing as well as relevantmitigation strategies. Psychosocial Care Needs other At this time discussed his goals to have further conversations with his 7 year old son. He feels like they need to provide him more information about the cancer. I provided a document from [facility] regarding parenting at a challenging time. I am hopeful he and his can look through this, think about the messaging and reach out to us if they need further guidance on having this conversation with their son. referral may be helpful, I did not place this consult today but will follow up with the patient regarding this at follow up visit. Thank you for the opportunity to see this patient. Patient has our contact information and understands to call with new/worsening symptoms or concerns. We will work alongside the primary outpatient team to address these issues. Palliative care outpatient clinic will continue to follow along. Follow up visit: provider 2 weeks, virtual visit Will need an EKG Total time spent was 60 minutes. Louisa Padilla P.A.-C. CH COUPLER documented in this encounter Plan of Treatment Upcoming Encounters Date Type Department Care Team (Late st Contact Info) Description 12/23/2023 8:30 AM SWITCH COUPLER Clinical Communication Virtual Review in [address] [address] 12/24/2023 10:30 AM SWITCH COUPLER Appointment Department of Radiology, [facility], in [address] [phone] Noelle Reyes P.A.-C., P.A. [address] [place] [phone] 12/24/2023 11:00 AM SWITCH COUPLER Lab Department of Infusion Therapy in [address] [phone] Noelle Reyes P.A.-C., P.A. [address] [place] [phone] 12/24/2023 2:15 PM SWITCH COUPLER Office Visit Department of Palliative Care in [address] [phone] Aylin Smith, CINDY, C.N.P., M.S.N. [address] [place] [phone] 12/24/2023 4:10 PM SWITCH COUPLER Office Visit Department of Oncology in [place], [place] [address] [place] [address] Ned Alegria M.D. [address] [place] [address] Scheduled Referrals Name Type Priority Associated Diagnoses Order Schedule Palliative Care office visit (clinic) Outpatient Referral Routine Expected: 10/17/2023 (Approximate), Expires: 12/27/2024 documented as of this encounter Goals Goal Patient Goal Type Associated Problems Recent Progress Patient-Stated? Author Your pain? Symptom Management 9(11/20/2022 2:41 PM SWITCH COUPLER) No Fee-Girma Bush, R.N., O.C.N. Note: 05/24/2021: Pain algorithm completed. [facility] 05/24/2021: Followup 06/07 [...] needed. KFS documented as of this encounter Results * ECG 12 Lead (10/28/2023 12:00 PM SWITCH COUPLER) Ventricular Rate ECG/Min 118 BPM MUSE ID Interval 146 ms MUSE QRSD Interval 88 ms MUSE QT Interval 326 ms MUSE QTC Interval 456 ms MUSE P [place]imb[place] 47 degrees MUSE R [place] 72 degrees MUSE T Wave [place]imb[place] 32 degrees MUSE 10/28/2023 12:0 0 PM SWITCH COUPLER 10/28/2023 12:09 PM SWITCH COUPLER Impressions MUSE - 10/28/2023 12:09 PM SWITCH COUPLER Sinus tachycardia Otherwise normal ECG When compared with ECG of 19-FEB-2022 08:11, No significant change was found Reviewed by HAROLDO Tracy Narrative Procedure Note Robert Recio M.D. - 10/28/2023 IMPRESSION: Sinus tachycardia Otherwise normal ECG When compared with ECG of 19-FEB-2022 08:11, No significant change was found Reviewed by HAROLDO Tracy Louisa Padilla P.A.-C. 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
--- OUTSIDE RECORDS SUMMARY | 2023-12-18 17:27 | XMS_ITS | Encounter Summary ---
Author Name Unknown Organization [facility] Address [address] [place] [address] Care Team Providers Care Metallurgist Process Name Role Phone Elsewhere, Pcp Primary Care Provider Unavailabl e Encounter Details Date Type Department Care Team (Late st Contact Info) Description 09/25/2023 Orders Only Department of Oncology in [place], [place] [address] [place] [address] Kristi Dominique M.D. [address] [place] [phone] Social History Tobacco Use Types Packs/Day Years [...] often do you attend chur ch or orthodoxy services? Never 02/03/2023 Do you belong to [...] Answer Date Recorded PHQ-2 Score 0 04/25/2019 [facility] - Occupational [...] degree (e.g., MA, MS, Ana Lilia, MEd, TECHNICIAN AUTOMATIC, GORDO) 02/15/2022 Sex and Gender Information Value Date Recorded Sex Assigned at Male 04/23/2018 1:23 PM CDT Gender Identity Male 04/23/2018 1:23 PM CDT Sexual Orientation Straight 04/23/2018 1: 23 PM CDT documented as of this encounter Plan of Treatment Upcoming Encounters Date Type Department Care Team (Late st Contact Info) Description 12/23/2023 8:30 AM REAL ESTATE SALES MANAGER Clinical Communication Virtual Review in [place], [place] [address] [place] [address] 12/24/2023 10:30 AM REAL ESTATE SALES MANAGER Appointment Department of Radiology, [facility], in [place], [place] [address] [place] [address] Noelle Reyes, P.A.[place]., P.A. [address] [place] [phone] 12/24/2023 11:00 AM REAL ESTATE SALES MANAGER Lab Department of Infusion Therapy in [place], [place] [address] [place] [phone] Noelle Reyes P.A.-C., P.A. [address] [place] [phone] 12/24/2023 2:15 PM REAL ESTATE SALES MANAGER Office Visit Department of Palliative Care in [place], [place] [address] [place] [phone] Aylin Smith APRN, C.N.P., M.S.N. [address] [place] [phone] 12/24/2023 4:10 PM REAL ESTATE SALES MANAGER Office Visit Department of Oncology in [place], [place] [address] [place] [phone] Ned Alegria M.D. [address] [place] [phone] documented as of this encounter Goals Goal Patient Goal Type Associated Problems Recent Progress Patient-Stated? Author Your pain? Symptom Management 9(11/20/2022 2:41 PM REAL ESTATE SALES MANAGER) No Phyllis-Girma Bush, RCandidoN., O.C.N. Note: 05/24/2021: Pain algorithm completed. [facility] 05/24/2021: Followup 06/07 via portal per patient [...] documented as of this encounter Care Teams Metallurgist Process Relationship Specialty Start Date End Date Elsewhere, Pcp PCP - General Internal Medicine 10/14/22 documented as of this encounter
--- OUTSIDE RECORDS SUMMARY | 2023-12-18 17:27 | XMS_ITS | Encounter Summary ---
Author Name Unknown Organization [facility] Address [address] [place] [address] Care Team Providers Care Tube Carrier Name Role Phone Elsewhere, Pcp Primary Care Provider Unavailabl e Encounter Details Date Type Department Care Team (Late st Contact Info) Description 09/04/2023 Orders Only Division of Pain Medicine in [place], [place] [address] [place] [phone] Yassine Parekh M.D. [address] [place] [address] Pain Chest Wall (Primary Dx); Pain Neuropathic; Pain Post Thoracotomy Chronic Social History Tobacco Use Types Packs/Day Years [...] often do you attend chur ch or yarsani services? Never 02/03/2023 Do you belong to any clubs o r organizations such as presybeterian groups, unions, fraternal or athletic groups, or [...] Answer Date Recorded PHQ-2 Score 0 04/25/2019 [facility] of Occupat ional Health - Occupational Stress [...] place to sleep or slept in a intermediate (including now)? No 02/03/2023 Nutrition Answer Date [...] degree (e.g., MA, MS, Ana Lilia, MEd, GENETICIST, GORDO) 02/15/2022 Sex and Gender Information Value Date Recorded Sex Assigned at Male 04/23/2018 1:23 PM CDT Gender Identity Male 04/23/2018 1:23 PM CDT Sexual Orientation Straight 04/23/2018 1: 23 PM CDT documented as of this encounter Plan of Treatment Upcoming Encounters Date Type Department Care Team (Late st Contact Info) Description 12/23/2023 8:30 AM VENEER MARKER Clinical Communication Virtual Review in [place], [place] [address] [place] [address] 12/24/2023 10:30 AM VENEER MARKER Appointment Department of Radiology, [facility], in [place], [place] [address] [place] [address] Noelle Reyes P.A.-C., P.A. [address] [place] [phone] 12/24/2023 11:00 AM VENEER MARKER Lab Department of Infusion Therapy in [place], [place] [address] [place] [phone] Noelle Reyes P.A.-C., P.A. [address] [place] [phone] 12/24/2023 2:15 PM VENEER MARKER Office Visit Department of Palliative Care in [address] [phone] Aylin Smith APRN, C.NCandidoP., M.S.N. [address] [place] [phone] 12/24/2023 4:10 PM VENEER MARKER Office Visit Department of Oncology in [place], [place] [address] [place] [phone] Ned Alegria M.D. [address] [place] [phone] documented as of this encounter Goals Goal Patient Goal Type Associated Problems Recent Progress Patient-Stated? Author Your pain? Symptom Management 9(11/20/2022 2:41 PM VENEER MARKER) No Phyllis-Girma Bush, RCandidoN., O.C.N. Note: 05/24/2021: [...] of this encounter Visit Diagnoses Diagnosis Pain Chest Wall- Primary Pain Neuropathic Pain Post Thoracotomy Chronic documented in this encounter Additional Health Concerns Assessment Noted Time PHQ-9 Depression Total Score: 7 05/26/20 18 10:22 PM CDT documented as of this encounter Care Teams Tube Carrier Relationship Specialty Start Date End Date Elsewhere, Pcp PCP - General Internal Medicine 10/14/22 documented as of this encounter
--- OUTSIDE RECORDS SUMMARY | 2023-12-18 17:27 | XMS_ITS | Encounter Summary ---
Author Name Unknown Organization [facility] Address [address] [place] [address] Care Team Providers Care Contract Loader Name Role Phone Elsewhere, Pcp Primary Care Provider Unavailabl e Reason for Visit * Outpatient (Routine) - Closed Specialty Diagnoses / Procedures Referred By Contac t Referred To Contact Diagnoses Pain Chest Wall Pain Neuropathic Pain Post Thoracotomy Chronic Procedures FL Spine Intercostal Injection Right FL Thoracic Paravertebral Block Injection Right SC PARAVERTEB BLOCK THOR SNGL SC PARAVERTEB BLOCK THOR 2ND & ADD SC INJ ANES INTERCOSTAL NRV SNGL LVL SC INJ ANES INTERCOSTAL NRV EA ADDL LEVEL Yassine Parekh M.D. [address] [place] [address] [facility] Referral ID Status Reason Start Date Expiration Date Visits Re quested Visits Authorized [id number] Closed 09/04/2023 09/03/2024 1 1 Encounter Details Date Type Department Care Team (Latest Contact Info) Description 09/29/2023 12:26 PM PRODUCTION CONTROL PLANNER - 09/29/2023 11:59 PM [facility] Encounter Division of Pain Medicine in [place], [place] [address] [place] [phone] Yassine Parekh M.D. [address] [place] [phone] Pain Chest Wall; Pain Neuropathic; Pain Post Thoracotomy Chronic Discharge Disposition: Home or Self Care Social [...] 02/03/2023 How often do you attend chur or oriental orthodox services? Never 02/03/2023 Do you belong to any clubs o r organizations such as alevism groups, unions, fraternal or athletic groups, or [...] Answer Date Recorded PHQ-2 Score 0 04/25/2019 [facility] [place] of Occupat ional Health - Occupational Stress [...] place to sleep or slept in a longterm (including now)? No 02/03/2023 Nutrition Answer Date [...] degree (e.g., MA, MS, Ana Lilia, MEd, BANKING SERVICES OFFICER, GORDO) 02/15/2022 Sex and Gender Information Value Date Recorded Sex Assigned at Male 04/23/2018 1:23 PM CDT Gender Identity Male 04/23/2018 1:23 PM CDT Sexual Orientation Straight 04/23/2018 1: 23 PM CDT documented as of this encounter Last Filed Vital Signs Vital Sign Reading Time Taken Comments Blood Pressure 142/107 09/29/2023 1:51 PM PRODUCTION CONTROL PLANNER Pulse 110 09/29/2023 1:51 PM PRODUCTION CONTROL PLANNER Temperature 35 ??C (95 ??F) 09/29/2023 12:42 PM PRODUCTION CONTROL PLANNER Respiratory Rate - - Oxygen Saturation 99% 09/29/2023 1:51 PM PRODUCTION CONTROL PLANNER Inhaled Oxygen Concentration - - Weight - - Height - - Body Mass Index - - documented in this encounter Medications at Time of Discharge Medication Sig Dispensed Refills Start Date End Date acetaminophen (TYLENOL) 500 mg tablet Take 2 tablets (1,000 mg total) by mouth every 6 (six) hours as needed for moderate pain or score 4-6 of 10 or severe pain or score 7-10 of 10. 30 tablet 0 08/03/2020 albuterol 90 mcg/actuation inhaler INHALE 1-2 PUFFS BY MOUTH EVERY 4 HOURS IF NEEDED FOR SHORTNESS OF BREATH OR WHEEZING (COUGH). 0 12/10/2022 amitriptyline 2%-ketamine 5%-lidocaine 5% in lipoderm Apply topically 3 (three) times a day. Apply to skin over right upper quadrant abdomen three times daily, as needed. 30 g 3 03/07/2022 amLODIPine (NORVASC) 10 mg tablet TAKE 1 TABLET (10 MG TOTAL) BY MOUTH EVERY MORNING. 90 tablet 2 09/18/2023 amLODIPine (NORVASC) 10 mg tablet Take 10 mg by mouth. Pt unsure about the dosage 0 09/26/2023 ascorbic acid, vitamin C, (VITAMIN C) 250 mg tablet Take 250 mg by mouth daily. 0 benzonatate (TESSALON PERLES) 100 mg capsule 100 mg every 4 (four) hours as needed. 0 12/05/2022 cholecalciferol (VITAMIN D3) 5,000 Unit capsule Take 5,000 Units by mouth daily. 0 cyanocobalamin (VITAMIN B12) 1,000 mcg tablet Take 1,000 mcg by mouth daily. 0 dexAMETHasone (DECADRON) 0.5 mg tablet Take 4 mg by mouth. 0 09/29/2023 dexAMETHasone (DECADRON) 4 mg tablet Take 1 tablet (4 mg total) by mouth daily. Take in a.m. with food 30 tablet 3 09/26/2023 docosahexaenoic acid/epa (FISH OIL ORAL) Take 2 tablets by mouth daily. 0 doxycycline monohydrate (MONODOX) 100 mg capsule Take 1 capsule (100 mg total) by mouth 2 (two) times a day before breakfast and dinner. 60 capsule 3 09/26/2023 erythromycin (ROMYCIN) 5 mg/gram (0.5 %) ophthalmic ointment APPLY 1 STRIP TO RIGHT EYE FOUR TIMES DAILY. 0 01/08/2023 fluticasone propionate (FLONASE) 50 mcg/actuation nasal spray INHALE 2 SPRAYS TO BOTH NOSTRILS ONCE DAILY 0 12/10/2022 hydrocortisone (CORTAID) 1 % cream Apply 1 Application topically 2 (two) times a day. 30 g 3 09/26/2023 HYDROmorphone (DILAUDID) 4 mg tabletIndications:Mold Unloader alvino Pain/Nonacute Pain Take 1-1.5 tablets (4-6 mg total) by mouth every 4 (four) hours as needed for pain Indication: Chronic Pain/Nonacute Pain. 60 tablet 0 09/26/2023 ibuprofen (ADVIL,MOTRIN) 100 mg tablet Take 600 mg by mouth. 0 09/26/2023 ibuprofen (ADVIL,MOTRIN) 200 mg tablet Take 4 tablets (800 mg total) by mouth every 6 (six) hours as needed for pain. 0 08/24/2018 LACTOBACILLUS ACIDOPHILUS ORAL Take 1 capsule by mouth daily. 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 If ineffective, may repeat once after 30 minutes. 30 tablet 0 05/08/2020 melatonin 1 mg tablet,chewable Chew 10 mg. 0 09/26/2023 multivitamin tablet Take 1 tablet by mouth daily. 0 naloxone (Narcan) 4 mg/actuation nasal spray Administer 1 spray (4 mg total) into one nostril every 2 (two) minutes as needed (overdose). 1 each 0 06/12/2021 nitroglycerin (NITROSTAT) 0.[address] 1 tablet (0.4 mg total) under the tongue every 5 (five) minutes as needed for chest pain. 25 tablet 12 05/28/2018 nitroglycerin (Nitrostat) 0.[address] 0.4 mg under the tongue. 0 09/26/2023 omega 5-ozp-sjm-fish oil 1,000 mg (120 mg-180 mg) capsule Take 2 capsules by mouth. 0 05/16/2022 omeprazole (PriLOSEC) [address] capsule Take 1 capsule (20 mg total) by mouth every morning before breakfast. 30 capsule 3 09/26/2023 ondansetron ODT (ZOFRAN-ODT) 8 mg disintegrating tablet Dissolve 1 tablet (8 mg total) in the mouth every 8 (eight) hours as needed for nausea. See attached for detailed directions. 20 tablet 3 09/26/2023 potassium chloride (K-TAB) 20 mEq CR tablet Take 20 mEq by mouth 2 (two) times a day. 0 06/09/2023 prochlorperazine (COMPAZINE) 10 mg tablet Take 1 tablet (10 mg total) by mouth every 8 (eight) hours as needed for nausea. 30 tablet 3 09/26/2023 TURMERIC ORAL Take 1 tablet by mouth every morning. 0 DULoxetine (CYMBALTA) [address] capsule Take 1 capsule (60 mg total) by mouth daily. 90 capsule 3 05/23/2023 10/01/2023 gabapentin (NEURONTIN) 300 mg capsuleIndications:Mal ignant Neoplasm Of Rectum (HCC),Pain Neuropathic TAKE 1 CAPSULE BY MOUTH THREE TIMES A DAY 90 capsule 3 07/30/2023 10/01/2023 melatonin 10 mg disintegrating tablet Take 10 mg by mouth at bedtime. 0 11/26/2023 methadone (DOLOPHINE) 5 mg tabletIndications:Mold Unloader alvino Pain/Nonacute Pain Take 0.5 tablets (2.5 mg total) by mouth 2 (two) times a day Indication: Chronic Pain/Nonacute Pain. 30 tablet 0 09/26/2023 10/27/2023 OLANZapine (ZyPREXA) 5 mg tablet Take 1 tablet (5 mg total) by mouth at bedtime. Take days 1-4 after chemotherapy 24 tablet 1 09/26/2023 10/22/2023 pantoprazole (PROTONIX) 40 mg EC tabletIndications:Rosie yanes Neoplasm Of Rectum (HCC) Take 1 tablet (40 mg total) by mouth every morning. 90 tablet 1 04/22/2023 12/10/2023 traMADoL (ULTRAM) 50 mg tablet TAKE 1 TABLET EVERY 4 (FOUR) HOURS NEEDED FOR PAIN FOR UP TO 3 DAYS INDICATIONS: ACUTE PAIN. 0 02/27/2022 10/01/2023 documented as of this encounter Procedure Notes * Marlon Garcia M.D. - 09/29/2023 1:00 PM CSTAssociated Order(s): FL Spine Intercostal Injection Right Pre-Procedure Diagnose(s): Pain Chest Wall; Pain Neuropathic; Pain Post Thoracotomy Chronic Post-Procedure Diagnose(s): Pain Chest Wall; Pain Neuropathic; Pain Post Thoracotomy Chronic FL Spine Intercostal Injection Right Performed by: Marlon Garcia M.D. Authorized by: Yassine Parekh M.D. Care team members present 1. Yareli Wiggins [...] 7 Total steroid in injectate (mg): 10 3 mL BUPivacaine 0.5 % (5 mg/mL) 3 mL lidocaine 20 mg/mL 10 mg dexAMETHasone 10 mg/mL PROCEDURE DETAILS Intercostal nerve block - thoracic: Under image guidance the needle was advanced down to each rib and then walked inferiorly and advanced another 1 to 2 mm. After negative aspiration, the contrast was injected and confirmed appropriate spread in the region of the intercostal nerves without evidenceof intravascular or intrapleural uptake. The solution was injected into each site. The needle was then slightly withdrawn and flushed with local anesthetic as it was fully extracted from the skin. The exact same procedure was repeated at each aforementioned level, and there were no difficulties encountered. Postprocedure the patient denied any abrupt worsening of any cough, pleuritic pain, or shor tness of breath and respiratory status was unchanged pre/post procedure. The patient tolerated the procedure well and there were no apparent complications. The patient was dismissed from the outpatient procedure center in stable condition. The patient was advised not to travel in an airplane withinthe next 24 hours. ADDITIONAL PROCEDURE COMMENTS The patient tolerated the procedure very well., had the anticipated block within the distribution of the right T5 and T7 intercostal nerve/s. Prior to the procedure I spent a fairly significant amount of time reviewing the patient's treatment and his location of pain. Mapped in the rhomboid/periscapular region as well as wrapping around anteriorly it did seem to correlate mostly with a T5- 6 7 levels. He has had paravertebral blocks as well as a celiac plexus block with varying levels of successhe is never had dedicated intercostal nerve blocks. As such this is what we elected to move forwardwith that today and this is performed under ultrasound. With placement of the injectate he reported reproduction of the pain wrapping anteriorly as the medications placed in both locations. We reviewed that this would potentially be [...] utilized as applicable for the procedure: yes Site preparation: chlorhexidine SEDATION / ANESTHESIA Anesthesia method: local infiltration Local infiltrate type: lidocaine ATTESTATION STATEMENT The teaching physician rule is not applicable. OPERATIVE NOTE INFORMATION Specimens: 0 Drains: 0 Estimated blood loss: 0 Implants: 0 UCTION CONTROL PLANNER documented in this encounter Plan of Treatment Upcoming Encounters Date Type Department Care Team (Late st Contact Info) Description 12/23/2023 8:30 AM PRODUCTION CONTROL PLANNER Clinical Communication Virtual Review in [address] [address] 12/24/2023 10:30 AM PRODUCTION CONTROL PLANNER Appointment Department of Radiology, [facility], in [address] [phone] Noelle Reyes, P.A.-C., P.A. [address] [place] [phone] 12/24/2023 11:00 AM PRODUCTION CONTROL PLANNER Lab Department of Infusion Therapy in [address] [phone] Noelle Reyes, P.A.-C., P.A. [address] [place] [address] 12/24/2023 2:15 PM PRODUCTION CONTROL PLANNER Office Visit Department of Palliative Care in [address] [phone] Aylin Smith APRN, C.N.P., M.S.N. [address] [place] [phone] 12/24/2023 4:10 PM PRODUCTION CONTROL PLANNER Office Visit Department of Oncology in [address] [place] [address] Ned Alegria M.D. [address] [place] [address] documented as of this encounter Goals Goal Patient Goal Type Associated Problems Recent Progress Patient-Stated? Author Your pain? Symptom Management 9(11/20/2022 2:41 PM PRODUCTION CONTROL PLANNER) No Fee-Girma Bush R.N., O.C.N. Note: 05/24/2021: Pain algorithm completed. [facility] 05/24/2021: Followup 06/07 via portal per patient [...] that his need for medication may change. [facility] 06/07/2021: Pain rating over the past [...] Procedure Name Priority Date/Time Associated Diagnosis Comments FL SPINE INTERCOSTAL INJECTION Routine 09/29/2023 1:50 PM PRODUCTION CONTROL PLANNER Pain Chest Wall Pain Neuropathic Pain Post Thoracotomy Chronic documented in this encounter Results * FL Spine Intercostal Injection Right (09/29/2023 1:50 PM PRODUCTION CONTROL PLANNER) Narrative Marlon Garcia M.D. - 09/29/2023 1:00 PM PRODUCTION CONTROL PLANNER Marlon Garcia M.D. ? 09/29/2023 ??6:26 PM FL Spine Intercostal Injection Right Performed by: Marlon Garcia M.D. Authorized by: Yassine Parekh M.D. ?? Care team members present 1. Yareli Wiggins LCandidoPAlba PROCEDURE SUMMARY Indications: Intractable pain Pre-procedural pain: [...] Parekh M.D. FLUORO GUIDED PA IN PROCEDURES documented in this encounter Visit Diagnoses Diagnosis Pain Chest Wall Pain Neuropathic Pain Post Thoracotomy Chronic documented in this encounter Administered Medications Inactive Administered Medications - up to 3 most recent administrations Medication Order MAR Action Action Date Dose Rate Site BUPivacaine 0.5 % (5 mg/mL) injection 3 mL (MARCAINE) 3 mL, injection, One-Time Injection, Starting on Fri09/29/23 at 1300, For 1 dose Given 09/29/2023 1:00 PM PRODUCTION CONTROL PLANNER 3 mL dexAMETHasone injection 10 mg (DECADRON) 10 mg, injection, One-Time Injection, Starting on Fri09/29/23 at 1300, For 1 dose Given 09/29/2023 1:00 PM PRODUCTION CONTROL PLANNER 10 mg lidocaine 20 mg/mL injection 3 mL (XYLOCAINE) 3 mL, injection, One-Time Injection, Starting on Fri09/29/23 at 1300, For 1 dose Given 09/29/2023 1:00 PM PRODUCTION CONTROL PLANNER 3 mL documented in this encounter Additional Health Concerns Assessment Noted Time PHQ-9 Depression Total Score: 7 05/26/20 18 10:22 PM CDT documented as of this encounter Care Teams Contract Loader Relationship Specialty Start Date End Date Elsewhere, Pcp PCP - General Internal Medicine 10/14/22 documented as of this encounter
--- OUTSIDE RECORDS SUMMARY | 2023-12-18 17:27 | XMS_ITS | Encounter Summary ---
Author Name Unknown Organization [facility] Address [address] [place] [address] Care Team Providers Care Tapper Balance Wheel Screw Hole Name Role Phone Elsewhere, Pcp Primary Care Provider Unavailabl e Encounter Details Date Type Department Care Team (Late st Contact Info) Description 09/26/2023 Orders Only Department of Oncology in [place], [place] [address] [place] [phone] Kristi Dominique M.D. [address] [place] [phone] Social History Tobacco Use Types Packs/Day Years [...] How often do you attend chur or mormonism services? Never 02/03/2023 Do you belong to any clubs o r organizations such as taoism groups, unions, fraternal or athletic groups, or [...] Answer Date Recorded PHQ-2 Score 0 04/25/2019 [facility] - Occupational Stress Questionnaire Answer Date [...] place to sleep or slept in a fpc (including now)? No 02/03/2023 Nutrition Answer Date [...] degree (e.g., MA, MS, Ana Lilia, MEd, CREDIT RISK MANAGER, GORDO) 02/15/2022 Sex and Gender Information Value Date Recorded Sex Assigned at Male 04/23/2018 1:23 PM CDT Gender Identity Male 04/23/2018 1:23 PM CDT Sexual Orientation Straight 04/23/2018 1: 23 PM CDT documented as of this encounter Plan of Treatment Upcoming Encounters Date Type Department Care Team (Late st Contact Info) Description 12/23/2023 8:30 AM BEATER LEAD Clinical Communication Virtual Review in [place], [place] [address] [place] [address] 12/24/2023 10:30 AM BEATER LEAD Appointment Department of Radiology, [facility], in [place], [place] [address] [place] [address] Noelle Reyes PKaycee.Winston., P.A. [address] [place] [phone] 12/24/2023 11:00 AM BEATER LEAD Lab Department of Infusion Therapy in [place], [place] [address] [place] [phone] Noelle Reyes P.A.-C., P.A. [address] [place] [phone] 12/24/2023 2:15 PM BEATER LEAD Office Visit Department of Palliative Care in [place], [place] [address] [place] [phone] Aylin Smith, CINDY, C.N.P., M.S.N. [address] [place] [phone] 12/24/2023 4:10 PM BEATER LEAD Office Visit Department of Oncology in [place], [place] [address] [place] [phone] Ned Alegria M.D. [address] [place] [phone] documented as of this encounter Goals Goal Patient Goal Type Associated Problems Recent Progress Patient-Stated? Author Your pain? Symptom Management 9(11/20/2022 2:41 PM BEATER LEAD) No Phyllis-Girma Bush, RCandidoN., O.C.N. Note: 05/24/2021: Pain algorithm completed. ST. [...] documented as of this encounter Care Teams Tapper Balance Wheel Screw Hole Relationship Specialty Start Date End Date Elsewhere, Pcp PCP - General Internal Medicine 10/14/22 documented as of this encounter
--- OUTSIDE RECORDS SUMMARY | 2023-12-18 17:27 | XMS_ITS | Encounter Summary ---
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 [address] [place] [address] [facility] Referral ID Status Reason Start Date Expiration Date Visits Re quested Visits Authorized [id number] Closed 09/10/2023 09/09/2024 1 1 Encounter Details Date Type Department Care Team (Latest Contact Info) Description 09/18/2023 3:05 PM CDT - 09/18/2023 11:59 PM CDT Hospital Encounter Department of Radiology, [facility], in [place], [place] [address] [place] [address] Giorgio Fishman M.D. [address] [place] [address] Malignant Neoplasm Of Rectum (HCC); Secondary Malignant [...] 04/25/2019 [facility] - Occupational [...] degree (e.g., MA, MS, Ana Lilia, MEd, REVERSER, GORDO) 02/15/2022 Sex and Gender Information Value Date Recorded Sex Assigned at Male 04/23/2018 1:23 PM CDT Gender Identity Male 04/23/2018 1:23 PM CDT Sexual Orientation Straight 04/23/2018 1: 23 PM CDT documented as of this encounter Medications at Time of Discharge [...] MOUTH EVERY MORNING. 90 tablet 2 09/18/2023 ascorbic acid, vitamin C, (VITAMIN C) 250 mg tablet Take 250 mg by mouth daily. 0 benzonatate (TESSALON PERLES) 100 mg capsule 100 mg every 4 (four) hours as needed. 0 12/05/2022 cholecalciferol (VITAMIN D3) 5,000 Unit capsule Take 5,000 Units by mouth daily. 0 cyanocobalamin (VITAMIN B12) 1,000 mcg tablet Take 1,000 mcg by mouth daily. 0 docosahexaenoic acid/epa (FISH OIL ORAL) Take 2 tablets by mouth daily. 0 erythromycin (ROMYCIN) 5 mg/gram (0.5 %) ophthalmic ointment APPLY 1 STRIP TO RIGHT EYE FOUR TIMES DAILY. 0 01/08/2023 fluticasone propionate (FLONASE) 50 mcg/actuation nasal spray INHALE 2 SPRAYS TO BOTH NOSTRILS ONCE DAILY 0 12/10/2022 ibuprofen (ADVIL,MOTRIN) 200 mg tablet Take 4 tablets (800 mg total) by mouth every 6 (six) hours as needed for pain. 0 08/24/2018 LACTOBACILLUS ACIDOPHILUS ORAL Take 1 capsule by mouth daily. 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 If ineffective, may repeat once after 30 minutes. 30 tablet 0 05/08/2020 multivitamin tablet Take 1 tablet by mouth daily. 0 naloxone (Narcan) 4 mg/actuation nasal spray Administer 1 spray (4 mg total) into one nostril every 2 (two) minutes as needed (overdose). 1 each 0 06/12/2021 nitroglycerin (NITROSTAT) 0.[address] 1 tablet (0.4 mg total) under the tongue every 5 (five) minutes as needed for chest pain. 25 tablet 12 05/28/2018 omega 9-wbr-rbi-fish oil 1,000 mg (120 mg-180 mg) capsule Take 2 capsules by mouth. 0 05/16/2022 potassium chloride (K-TAB) 20 mEq CR tablet Take 20 mEq by mouth 2 (two) times a day. 0 06/09/2023 TURMERIC ORAL Take 1 tablet by mouth every morning. 0 DULoxetine (CYMBALTA) [address] capsule Take 1 capsule (60 mg total) by mouth daily. 90 capsule 3 05/23/2023 10/01/2023 gabapentin (NEURONTIN) 300 mg capsuleIndications:Rosie yanes Neoplasm Of Rectum (HCC),Pain Neuropathic TAKE 1 CAPSULE BY MOUTH THREE TIMES A DAY 90 capsule 3 07/30/2023 10/01/2023 HYDROmorphone (DILAUDID) 2 mg tabletIndications:Acute Pain Take 0.5 tablets (1 mg total) by mouth every 3 (three) hours as needed for pain for up to 8 doses Indication: Acute Pain. 4 tablet 0 02/19/2022 09/26/2023 melatonin 10 mg disintegrating tablet Take 10 mg by mouth at bedtime. 0 11/26/2023 OLANZapine (ZyPREXA) 5 mg tablet TAKE 1 TAB AT BEDTIME DAILY DAYS 1-4 POST CHEMOTHERAPY. DO NOT TAKE WITH LORAZEPAM. 24 tablet 1 04/22/2023 09/26/2023 ondansetron ODT (ZOFRAN-ODT) 8 mg disintegrating tablet every 8 (eight) hours as needed for nausea. See attached for detailed directions. 0 12/03/2022 09/26/2023 pantoprazole (PROTONIX) 40 mg EC tabletIndications:Zuleyka ortez Neoplasm Of Rectum (HCC) Take 1 tablet (40 mg total) by mouth every morning. 90 tablet 1 04/22/2023 12/10/2023 prochlorperazine (COMPAZINE) 10 mg tablet Take 10 mg by mouth every 8 (eight) hours as needed for nausea. 0 07/02/2021 09/26/2023 traMADoL (ULTRAM) 50 mg tablet TAKE 1 TABLET EVERY 4 (FOUR) HOURS NEEDED FOR PAIN FOR UP TO 3 DAYS INDICATIONS: ACUTE PAIN. 0 02/27/2022 10/01/2023 documented as of this encounter Nursing Notes * Myriam Hendrickson RCandidoN. - 09/18/2023 3:45 PM CDT Eovist administration screening: Has radiologist issued an order for Gadoxetrate Disodium (Eovist)? YES If yes???continue Was eGFR Point of care for MRI scan Protocol reviewed by RN? YES If yes???continue Is patient jaundiced? NO If no???.continue. If yes, notify Radiologists prior to preceeding. Does patient have a total bilirubin documented in the past 30 days in the electronic medical record? YES If yes???continue to next question. If no, continue to administration of medication. If documented in past 30 days, was patient???s bilirubin level less than or equal to 3mg/dL? YES If yes???(or if patient does not have a bilirubin documented) administer medications as ordered andoutlined in medication reference document. documented in this encounter Plan of Treatment Upcoming Encounters Date Type Department Care Team (Late st Contact Info) Description 12/23/2023 8:30 AM CLINICAL DATA RESEARCH Clinical Communication Virtual Review in [address] [address] 12/24/2023 10:30 AM CLINICAL DATA RESEARCH Appointment Department of Radiology, [facility], in [address] [phone] Noelle Reyes P.A.-C., P.A. [address] [place] [phone] 12/24/2023 11:00 AM CLINICAL DATA RESEARCH Lab Department of Infusion Therapy in [address] [phone] Noelle Reyes P.A.-C., P.A. [address] [place] [address] 12/24/2023 2:15 PM CLINICAL DATA RESEARCH Office Visit Department of Palliative Care in [address] [phone] Aylin Smith, CINDY, C.N.P., M.S.N. [address] [place] [phone] 12/24/2023 4:10 PM CLINICAL DATA RESEARCH Office Visit Department of Oncology in [address] [phone] Ned Alegria M.D. [address] [place] [address] documented as of this encounter Goals Goal Patient Goal Type Associated Problems Recent Progress Patient-Stated? Author Your pain? Symptom Management 9(11/20/2022 2:41 PM CLINICAL DATA RESEARCH) No Fee-Girma Bush R.N., O.C.N. 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 Additional linearareas of hypoenhancement along the inferior margin of the prior ablationdefect tract near the hepatic hilum and may represent hilar adenopathy (series 13 image 81). 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) documented in this encounter Administered Medications Inactive Administered Medications - up to 3 most recent administrations Medication Order MAR Action Action Date Dose Rate Site gadoxetate injection 0.1-20 mL (EOVIST) 0.1-20 mL, intravenous, Once, On Francy 09/18/23 at 1600, For 1 dose, Imaging Protocol Orders, Dose per Radiant Medication Guidelines Given 09/18/2023 4:38 PM CDT 10 mL heparin flush 500 Units 500 Units, intra-catheter, During hospitalization, line care, Prior to discharge, Starting on Francy 09/18/23 at 1541, For 1 dose, Implanted Vascular Access Device (IVAD) Venous Non-Valved: Following saline flush prior to discharge. Given 09/18/2023 4:52 PM CDT 500 Units sodium chloride (PF) 0.9 % injection 1-100 mL 1-100 mL, intravenous, Once, On Francy 09/18/23 at 1600, For 1 dose, Imaging Protocol Orders Given 09/18/2023 4:38 PM CDT 40 mL sodium chloride 0.9 % injection 10 mL 10 mL, intravenous, As needed, line care, Implanted Vascular Access Device (IVAD) Venous Non-Valved, Starting on Francy 09/18/23 at 1541, Prior to and following infusion, between multiple consecutive infusions, and prior to blood sampling, Given 09/18/2023 4:52 PM CDT 10 mL Given 09/18/2023 3:50 PM CDT 10 mL documented in this encounter Additional Health Concerns Assessment Noted Time PHQ-9 Depression Total Score: 7 05/26/20 18 10:22 PM CDT documented as of this encounter Care Teams Tuber Machine Cutter Relationship Specialty Start Date End Date Elsewhere, Pcp PCP - General Internal Medicine 10/14/22 documented as of this encounter
--- OUTSIDE RECORDS SUMMARY | 2023-12-18 17:27 | XMS_ITS | Encounter Summary ---
Author Name Unknown Organization [facility] Address [address] [place] [address] Care Team Providers Care Waistline Joiner Lockstitch Name Role Phone Elsewhere, Pcp Primary Care Provider Unavailabl e Reason for Visit * Reason Comments Med Change Request Med refill : Amlodip ine besylate Encounter Details Date Type Department Care Team (Late st Contact Info) Description 09/18/2023 Refill Department of Oncology in [place], [place] [address] [place] [address] Giorgio Fishman M.D. [address] [place] [phone] Med Change Request (Med refill : Amlodipine besylate/) Social History Tobacco Use Types Packs/Day Years [...] often do you attend chur ch or jehovah's witness services? Never 02/03/2023 Do you belong to [...] Answer Date Recorded PHQ-2 Score 0 04/25/2019 [facility] - [...] place to sleep or slept in a residential (including now)? No 02/03/2023 Nutrition Answer Date [...] degree (e.g., MA, MS, Ana Lilia, MEd, FULL ROLL INSPECTOR, GORDO) 02/15/2022 Sex and Gender Information Value Date Recorded Sex Assigned at Male 04/23/2018 1:23 PM CDT Gender Identity Male 04/23/2018 1:23 PM CDT Sexual Orientation Straight 04/23/2018 1: 23 PM CDT documented as of this encounter Miscellaneous Notes * Telephone Encounter - Jennie Baugh E - 09/18/2023 10:36 AM CDT Images from the original note were not included. Received refill request for: requesting 90 day supply AMLODIPINE BESYLATE 10 MG TAB Will file in chart as: amLODIPine (NORVASC) 10 mg tablet Sig: Take 1 tablet (10 mg total) by mouth every morning. Disp: 90 tablet Refills: 2 Start: 09/18/2023 Class: Normal Last ordered: 3 weeks ago by Giorgio Fishman M.D. Last refill: 08/25/2023 Rx #: [id number] Pharmacy comment: REQUEST FOR 90 DAYS PRESCRIPTION. To be filled at: [facility] [id number] [place] [address] documented in this encounter Plan of Treatment Upcoming Encounters Date Type Department Care Team (Late st Contact Info) Description 12/23/2023 8:30 AM GRID CASTER Clinical Communication Virtual Review in [address] [address] 12/24/2023 10:30 AM GRID CASTER Appointment Department of Radiology, [facility] in [address] [phone] Noelle Reyes P.A.-C., P.A. [address] [place] [phone] 12/24/2023 11:00 AM GRID CASTER Lab Department of Infusion Therapy in [address] [phone] Noelle Reyes P.A.-C., P.A. [address] [place] [phone] 12/24/2023 2:15 PM GRID CASTER Office Visit Department of Palliative Care in [address] [phone] Aylin Smith APRN, C.N.P., M.S.N. [address] [place] [phone] 12/24/2023 4:10 PM GRID CASTER Office Visit Department of Oncology in [address] [phone] Ned Alegria M.D. [address] [place] [address] documented as of this encounter Goals Goal Patient Goal Type Associated Problems Recent Progress Patient-Stated? Author Your pain? Symptom Management 9(11/20/2022 2:41 PM GRID CASTER) No Fee-Girma Bush R.N., O.C.N. Note: 05/24/2021: Pain algorithm completed. [facility] [place]/2021: Followup 06/07 via [...] documented as of this encounter Care Teams Waistline Joiner Lockstitch Relationship Specialty Start Date End Date Elsewhere, Pcp PCP - General Internal Medicine 10/14/22 documented as of this encounter
--- OUTSIDE RECORDS SUMMARY | 2023-12-18 17:27 | XMS_ITS | Encounter Summary ---
Author Name Unknown Organization [facility] Address [address] [place] [address] Care Team Providers Care Plant Safety Engineer Name Role Phone Elsewhere, Pcp Primary Care Provider Unavailabl e Encounter Details Date Type Department Care Team (Late st Contact Info) Description 09/09/2023 11:30 AM CDT Lab Department of Infusion Therapy in [place], [place] [address] [place] [address] Giorgio Fishman M.D. 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 Never 02/03/2023 Do you belong to any clubs o r organizations such as voodoo groups, unions, fraternal or athletic groups, or [...] Date Recorded PHQ-2 Score 0 04/25/2019 [facility] - Occupational Stress Questionnaire Answer Date [...] degree (e.g., MA, MS, Ana Lilia, MEd, COMMODITY SUPERVISOR, GORDO) 02/15/2022 Sex and Gender Information Value Date Recorded Sex Assigned at Male 04/23/2018 1:23 PM CDT Gender Identity Male 04/23/2018 1:23 PM CDT Sexual Orientation Straight 04/23/2018 1: 23 PM CDT documented as of this encounter Plan of Treatment Upcoming Encounters Date Type Department Care Team (Late st Contact Info) Description 12/23/2023 8:30 AM TEACHER OF THE EMOTIONALLY DISTURBED Clinical Communication Virtual Review in [place], [place] [address] [place] [address] 12/24/2023 10:30 AM TEACHER OF THE EMOTIONALLY DISTURBED Appointment Department of Radiology, [facility], in [place], [place] [address] [place] [phone] Noelle Reyes P.A.-C., P.A. [address] [place] [phone] 12/24/2023 11:00 AM TEACHER OF THE EMOTIONALLY DISTURBED Lab Department of Infusion Therapy in [place], [place] [address] [place] [phone] Noelle Reyes P.A.-C., P.A. [address] [place] [phone] 12/24/2023 2:15 PM TEACHER OF THE EMOTIONALLY DISTURBED Office Visit Department of Palliative Care in [address] [phone] Aylin Smith, CINDY, C.N.P., M.S.N. [address] [place] [phone] 12/24/2023 4:10 PM TEACHER OF THE EMOTIONALLY DISTURBED Office Visit Department of Oncology in [address] [phone] Ned Alegria M.D. [address] [place] [phone] documented as of this encounter Goals Goal Patient Goal Type Associated Problems Recent Progress Patient-Stated? Author Your pain? Symptom Management 9(11/20/2022 2:41 PM TEACHER OF THE EMOTIONALLY DISTURBED) No Fee-Girma Bush, R.N., O.C.N. Note: 05/24/2021: Pain algorithm completed. [facility] [place]/24/2021: Followup 06/07 via portal per patient [...] Procedure Name Priority Date/Time Associated Diagnosis Comments CBC WITH DIFFERENTIAL, B Routine 09/09/2023 11:44 AM CDT Malignant Neoplasm Of Rectum (HCC) COMPREHENSIVE METABOLIC PANEL, S/P Routine 09/09/2023 11:44 AM CDT Malignant Neoplasm Of Rectum (HCC) documented in this encounter Results * (ABNORMAL) Comprehensive Metabolic Panel (09/09/2023 11:44 AM CDT) Potassium, S 4.2 3.6 - 5.2 mmol/L 09/09/2023 12:37 PM CDT DTL Sodium, S 137 135 - 145 mmol/L 09/09/2023 12:37 PM CDT DTL Chloride, S 101 98 - 107 mmol/L 09/09/2023 12:37 PM CDT DTL Bicarbonate, S 27 22 - 29 mmol/L 09/09/2023 12:37 PM CDT DTL Anion Gap 9 7 - 15 09/09/2023 12:37 PM CDT DTL BUN (Blood Urea Nitrogen), S 12 8 - 24 mg/dL 09/09/2023 12:37 PM CDT DTL Creatinine 0.85 0.74 - 1.35 mg/dL 09/09/2023 12:37 PM CDT DTL Estimated GFR (eGFR) >90 >=60 mL/min/BS A 09/09/2023 12:37 PM CDT DTL Comment: Estimated GFR calculated using the 2020 CKD_EPI creatinine equation. Calcium, Total, S 9.2 8.6 - 10.0 mg/dL 09/09/2023 12:37 PM CDT DTL Glucose, S 129 70 - 140 mg/dL 09/09/2023 12:37 PM CDT DTL Protein, Total, S 6.2(L) 6.3 - 7.9 g/dL 09/09/2023 12:37 PM CDT DTL Albumin, S 4.1 3.5 - 5.0 g/dL 09/09/2023 12:37 PM CDT DTL Aspartate Aminotransferase (AST), S 111(H) 8 - 48 U/L 09/09/2023 12:37 PM CDT DTL Alkaline Phosphatase, S 285(H) 40 - 129 U/L 09/09/2023 12:37 PM CDT DTL Alanine Aminotransferase (ALT), S 259(H) 7 - 55 U/L 09/09/2023 12:37 PM CDT DTL Bilirubin, Total, S 0.7 0.0 - 1.2 mg/dL 09/09/2023 12:37 PM CDT DTL Blood (Blood, Venous) 09/09/2023 11:44 AM CDT 09/09/2023 12:20 PM CDT Giorgio Fishman M.D. LAB BLOOD ADD-ON [facility] [place] [address] [place], [place] [address] DTL [facility] [place][note 2] [address] [place] [address] * (ABNORMAL) CBC with Differential, Blood (09/09/2023 11:44 AM CDT) Hemoglobin 14.4 13.2 - 16.6 g/dL 09/09/2023 12:15 PM CDT DTL Hematocrit 43.0 38.3 - 48.6 % 09/09/2023 12:15 PM CDT DTL Erythrocytes 4.83 4.35 - 5.65 x10(12)/L 09/09/2023 12:15 PM CDT DTL MCV 89.0 78.2 - 97.9 fL 09/09/2023 12:15 PM CDT DTL RBC Distrib Width 13.1 11.8 - 14.5 % 09/09/2023 12:15 PM CDT DTL Platelet Count 95(L) 135 - 317 x10(9)/L 09/09/2023 1:09 PM CDT DTL Comment:Results confirmed by smear, no clumping or interference seen. Leukocytes 4.5 3.4 - 9.6 x10(9)/L 09/09/2023 1:09 PM CDT DTL Neutrophils 3.42 1.56 - 6.45 x10(9)/L 09/09/2023 12:15 PM CDT DHPM Lymphocytes 0.41(L) 0.95 - 3.07 x10(9)/L 09/09/2023 12:15 PM CDT DTL Monocytes 0.56 0.26 - 0.81 x10(9)/L 09/09/2023 12:15 PM CDT DTL Eosinophils 0.12 0.03 - 0.48 x10(9)/L 09/09/2023 12:15 PM CDT DTL Basophils <0.03 0.01 - 0.08 x10(9)/L 09/09/2023 12:15 PM CDT DTL Blood (Blood, Venous) 09/09/2023 11:44 AM CDT 09/09/2023 12:01 PM CDT Giorgio Fishman M.D. 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 For IVAD NOT accessed or used, flush every 4 weeks after 0.9% preservative-free NaCL flush. Given 09/09/2023 11:47 AM CDT 500 Units sodium chloride 0.9 % injection 10 mL 10 mL, intra-catheter, As needed, line care, Starting on Fri09/09/23 at 1138, When IVAD Accessed and in Use: Flush prior to and following infusion, between multiple consecutive infusions, and prior to blood sampling. Given 09/09/2023 11:47 AM CDT 10 mL sodium chloride 0.9 % injection 20 mL 20 mL, intra-catheter, As needed, line care, Starting on Fri09/09/23 at 1138, When IVAD Accessed and in Use: Flush post blood transfusion or post blood sampling. Given 09/09/2023 11:47 AM CDT 20 mL documented in this encounter Additional Health Concerns Assessment Noted Time PHQ-9 Depression Total Score: 7 05/26/20 18 10:22 PM CDT documented as of this encounter Care Teams Plant Safety Engineer Relationship Specialty Start Date End Date Elsewhere, Pcp PCP - General Internal Medicine 10/14/22 documented as of this encounter
--- OUTSIDE RECORDS SUMMARY | 2023-12-18 17:27 | XMS_ITS | Encounter Summary ---
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 [address] [place] [address] [facility] Referral ID Status Reason Start Date Expiration Date Visits Re quested Visits Authorized [id number] Closed 09/10/2023 09/09/2024 1 1 Reason for Visit * Outpatient (Routine) - Closed Specialty Diagnoses / Procedures Referred By Halima owen Referred To Contact Oncology Giorgio Guzman M.D. [address] [place] [address] [facility] Referral ID Status Reason Start Date Expiration Date Visits Re quested Visits Authorized [id number] Closed 09/08/2023 09/07/2026 1 1 Encounter Details Date Type Department Care Team (Late st Contact Info) Description 09/09/2023 2:40 PM CDT Office Visit Department of Oncology in [place], [place] [address] [place] [address] Giorgio Guzman M.D. [address] [place] [address] Malignant Neoplasm Of Rectum (HCC) (Primary Dx); [...] often do you attend chur ch or congregational services? Never 02/03/2023 Do you belong to any clubs o r organizations such as sabianist groups, unions, fraternal or athletic groups, or [...] Answer Date Recorded PHQ-2 Score 0 04/25/2019 [facility] [place] [facility] Occupat [facility] - Occupational Stress [...] place to sleep or slept in a care home (including now)? No 02/03/2023 Nutrition Answer [...] degree (e.g., MA, MS, Ana Lilia, MEd, PASTRY MIXER, GORDO) 02/15/2022 Sex and Gender Information Value Date Recorded Sex Assigned at Male 04/23/2018 1:23 PM CDT Gender Identity Male 04/23/2018 1:23 PM CDT Sexual Orientation Straight 04/23/2018 1: 23 PM CDT documented as of this encounter Last Filed Vital Signs Vital Sign Reading Time Taken Comments Blood Pressure 148/112 09/09/2023 2:28 PM CDT Pulse 125 09/09/2023 2:28 PM CDT Temperature 36.6 ??C (97.9 ??F) 09/09/2023 2:28 PM CD T Respiratory Rate 15 09/09/2023 2:28 PM CDT Oxygen Saturation 97% 09/09/2023 2:28 PM CDT Inhaled Oxygen Concentration - - Weight 88.1 kg (194 lb 3.6 oz) 09/09/2023 2:28 P M CDT Height 180.8 cm (5' 11.18) 09/09/2023 2:28 PM C DT Body Mass Index 26.95 09/09/2023 2:28 PM CDT documented in this encounter Progress Notes * Giorgio Guzman M.D. - 09/09/2023 2:40 PM CDT SUBJECTIVE PRIMARY CARE PHYSICIAN ELSEWHERE, PCP LOCAL ONCOLOGIST No care steam gigger to display PRIMARY [place] ONCOLOGIST Giorgio Guzman M.D. CHIEF COMPLAINT / REASON FOR VISIT Luis Tabares is a 43 y.o. male who presents for evaluation of metastatic rectal carcinoma HISTORY OF PRESENT ILLNESS Oncology History Oncology History Malignant Neoplasm Of Rectum (HCC) 04/15/2018 Initial Diagnosis Malignant Neoplasm Of Rectum (HCC) Approximately 4 months history of rectal pain with some bleeding. Seen locally and underwent colonoscopy which showed a rectal mass. Biopsy was positive for invasive adenocarcinoma. Came to [place] and seen by Gastroenterology. Underwent staging MRI as well as CT scan of the abdomen. 05/01/2018 Clinical Stage Cancer Staging Malignant Neoplasm Of Rectum (HCC) Staging form: Colon And Rectum, AJCC 8th Edition - Clinical stage from 05/08/2018: Stage IIIB (cT3, cN2a, cM0) Tumor size (mm): 47 Total positive nodes: 4 Histologic grade (G): G3 Histologic grading system: 4 grade system Histopathologic type: Adenocarcinoma, NOS Specimen type: Core Needle Biopsy Staged by: Managing physician Microsatellite instability (MSI): Stable KRAS mutation: Not assessed NRAS mutation: Not assessed BRAF Mutation: Not assessed 05/21/2018 - 06/30/2018 Chemotherapy Treatment Plan Name: Capecitabine ( with Radiation ) ( GI ) Line of Treatment: Neoadjuvant After approximately 1 week of therapy, presented with chest pain felt to be secondary to coronary vasospasm. Capecitabine was discontinued. He completed treatment using bolus 5 FU/leucovorin on a weekly basis throughout the rest of radiation therapy. 05/21/2018 - 07/01/2018 Radiation Therapy Radiation therapy to the rectum to a dose of 6440 cGy in 28 fractions. Plan ID [id number] First treatment 05/21/2018 13:32 CDT Last treatment 07/01/2018 10:09 CDT Fractions treated to date 28 Planned total fractions 28 Dosage given to date 6440 Planned dose in cGy 6440 08/21/2018 Surgery and Procedures Procedure(s): 1) Hand-assisted laparoscopic proctectomy with coloanal anastomosis 2) Mobilization of the splenic flexure 3) Diverting loop ileostomy Pathology showed: Colon, sigmoid and rectum, low anterior resection: Invasive moderately-differentiated adenocarcinoma, forming a 2.1 x 1.2 x 0.5 cm ulcerated mass in the rectum. The surgical resection margins are negative for tumor. Multiple (2 of 22) lymph nodes are positive with partial treatment effect. See synoptic report. SYNOPTIC REPORT Procedure: Sigmoidectomy and low anterior resection. Tumor Site: Rectum. Tumor Location: Entirely below the anterior peritoneal reflection. Tumor Size: Greatest dimension: 2.1 cm Macroscopic Tumor Perforation: Not identified. Macroscopic Intactness of Mesorectum: Complete. Histologic Type: Adenocarcinoma. Histologic Grade: G2: Moderately differentiated. Tumor Extension: Tumor invades through the muscularis propria into pericolorectal tissue. Margins: All margins are uninvolved by invasive carcinoma, high-grade dysplasia, intramucosal adenocarcinoma, and adenoma. Margins examined: Proximal and distal mucosal, radial margins. Distance of tumor from radial margin: 2.3 cm. Proximal Margin: Uninvolved by invasive carcinoma. Distal Margin: Uninvolved by invasive carcinoma. Radial or Mesenteric Margin: Uninvolved by invasive carcinoma . Distance of tumor from closest margin (distal): 1.6 cm. Treatment Effect: Residual cancer with evident tumor regression, but more than single cells or rare small groups of cancer cells. Lymphovascular Invasion: Not identified. Perineural Invasion: Present. Tumor Budding: Not applicable. Tumor Deposits: Present. Specify number of deposits: 1 Regional Lymph Nodes: Number of Lymph Nodes Involved: 2 Number of Lymph Nodes Examined: 22 Pathologic Staging (AJCC, 8th edition): TNM Descriptors: y Primary tumor: pT3 Regional lymph nodes: pN1b Postop was complicated by high output from the ileostomy. This required need for IV fluids on a fewoccasions. 10/02/2018 - 12/31/2018 Chemotherapy FLOX - plan for 4 months 02/10/2019 Surgery and Procedures Status post ileostomy takedown without complications. 09/27/2019 Surgery and Procedures Underwent right thoracotomy with multiple wedge excisions, pathology showed: FINAL DIAGNOSIS A. Lung, right middle lobe, wedge resection: Adenocarcinoma consistent with metastasis from patient's known colorectal primary (0.7 cm). Margins are negative for tumor. B. Lung, right lower lobe, wedge resection: Adenocarcinoma consistent with metastasis from patient's known colorectal primary (0.5 cm). Margins are negative for tumor. C. Lung, right lower lobe No. 2, wedge resection: Negative for tumor. D. Lung, right lower lobe No. 3, wedge resection: Adenocarcinoma consistent with metastasis from patient's known colorectal primary (0.7 cm). Margins are negative for tumor. 04/14/2020 - Chemotherapy Irinotecan + Panitumumab ( Fluorouracil / Leucovorin were deleted because of previous coronary vasospasm) Start Date: 04/14/2020 07/31/2020 Surgery and Procedures PROCEDURE(S) Right posterolateral thoracotomy and mediastinal lymphadenectomy. SURGEON(S) ENVIRONMENTAL STUDIES PROGRAM DIRECTOR: Jazmine Bowden M.D. ASSISTING RESIDENT: Bandar Owusu M.D. ANESTHESIA TYPE Thoracic epidural and general endotracheal. PRE-OPERATIVE DIAGNOSIS Mediastinal lymphadenopathy in a patient with a history of stage IV rectal cancer. POST-OPERATIVE DIAGNOSIS Metastatic rectal cancer to the mediastinal lymph nodes. Pathology demonstrated: FINAL DIAGNOSIS A. Lymph node, right lower paratracheal (station 4R), biopsy: A single (1) lymph node is negative for tumor. B. Lymph node, right lower paratracheal set 2 (station 4R), biopsy: A single (1 of 1) lymph node is involved by metastatic adenocarcinoma consistent with patient's colorectal primary. C. Lymph node, right lower paratracheal set 3 (station 4R), biopsy: Benign fibroadipose tissue. No lymph node identified. D. Lymph node, right lower paratracheal set 4 (station 4R), biopsy: A single (1 of 1) lymph node is involved by metastatic adenocarcinoma consistent with patient's colorectal primary. E. Lymph node, right hilar (station 10R), biopsy: A single (1) lymph node is negative for tumor. F. Lymph node, subcarinal (station 7), biopsy: A single (1 of 1) lymph node is involved by metastatic carcinoma consistent with patient's colorectal primary. 08/31/2020 - 09/20/2020 Radiation Therapy Radiation Therapy Treatment Details (08/31/2020 - 09/20/2020) Site: Right Mediastinum Technique: IMRT Goal: Palliative Planned Treatment Start Date: 08/31/202011/2020 - 01/2021 Chemotherapy Irinotecan and panitumumab x 6 cycles 05/16/[address]: -enlarging 1.9 x 2.1 cm right posterior 5th rib lesion -new metastasis in the posterior left upper lobe at the fissure -new uptake in the liver suspicious for metastasis 06/11/2021 - 06/13/2021 Radiation Therapy 9185-4493 cGy in 3 fractions to right posterior 5th rib lesion 07/02/2021 - 01/01/2022 Chemotherapy Irinotecan / Bevacizumab Start Date: 07/02/2021 Continue treatment through December 2021, disease at that point showed stable liver lesion and seenby ablation team in late January 2022 02/18/2022 Surgery and Procedures Had disease progression with new liver metastases and underwent successful microwave ablation of liver x2, with no immediate complications. 04/05/2022 - Chemotherapy Repeat CT scan in mid March 2022 showed slight progression in the lung lesions, proceeded to resume chemotherapy with Irinotecan and bevacizumab (patient wanted to avoid panitumumab rash June 2022, seen for further follow-up. PET scan did show some hypermetabolic activity in mediastinal and hilar nodes. Seen again by thoracic surgery who recommended continued chemotherapy with repeat imaging in about two months' time with CT scan Patient now returns for reassessment with his . Unfortunately he did not gain any benefit from the celiac plexus block. He still is having significant upper abdominal and mid abdominal pain. Thiscan be associated with nausea and vomiting. He is not having significant pain from his right rib area but is set up with pain medicine for possible injection in this area. Unfortunately he is not taking too much pain medication as it causes drowsiness and this prevents him from working The following portions of the patient's history were reviewed and updated as appropriate: allergies, current medications, family history, medical history, social history, surgical history and problemlist. OBJECTIVE PHYSICAL EXAM ECOG 1 - symptomatic but completely ambulatory BP (!) 148/112 (BP Location: Right arm, Patient Position: Sitting, Cuff Size: Large) Pulse (!) 125 Temp 36.6 ??C (Tympanic) Resp 15 Ht 180.8 cm Wt 88.1 kg SpO2 97% BMI 26.95 kg/m?? General: Alert and oriented. Appears healthy and in no acute distress. Skin: No rashes. Lymph: There is no lymphadenopathy in the neck, supraclavicular, or axillary regions. Abdomen: Nontender to palpation. Surgical scars are well-healed. No visceromegaly detected. Extremities: No edema. Pulses full. No calf pain. Neuro: No focal deficits detected. Gait: Normal. LABORATORY DATA Lab data reviewed. Recent lab test results are noted. He does have elevated liver function tests RADIOLOGICAL DATA Radiology data reviewed. Recent PET scan results are noted. These were compared to the previous PETscan from July 2022. 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 Tabares and his . We would a long discussion with regard to his ongoing symptoms. 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 I amconcerned that this is the primary cause of most of his symptoms. Unfortunately with prior radiation therapy in this region, he is not eligible for further radiation treatment. His celiac plexus block did not help the symptoms. We talked about other options including increasing pain medication as well as starting chemotherapy. He is willing to go ahead with irinotecan and panitumumab. He is concerned about the rash associated with panitumumab which was severe in the past. I told him we could always get him to see Dermatology so they could help with rash management. We also discussed briefly how to tell his 6-year-old son more about the advanced cancer diagnosis. He does have counselor at school and they will work with the counselor for now. Otherwise social service technician may be able to help. Plan: 1. Proceed with MRCP for evaluation of his elevated liver function tests 2. Proceed with Irinotecan and panitumumab. Doses from previous cycles can be used as starting doses. 3. Palliative Medicine consultation to help with pain management. 4. Dermatology appointment to help with rash management which was quite severe with previous panitumumab therapy. #5 Elevated liver function tests We will go ahead with MRCP to assess whether the celiac lymphadenopathy is causing biliary obstruction If we do see this, we may need to consider ERCP with possible stent placement. PATIENT EDUCATION Ready to learn, no apparent learning barriers were identified; learning preferences include listening. Explained diagnosis and treatment plan; patient expressed understanding of the content. ADMINISTRATIVE BILLING I personally spent 40 minutes in care of the patient today. Time includes both non face to face andface to face patient care. documented in this encounter Miscellaneous Notes * Addendum Note - Giorgio Guzman M.D. - 09/09/2023 2:40 PM CDTAddended by: GIORGIO GUZMAN on: 09/10/2023 09:59 AM Modules accepted: Orders documented in this encounter Plan of Treatment Upcoming Encounters Date Type Department Care Team (Late st Contact Info) Description 12/23/2023 8:30 AM SORTING AND FOLDING SUPERVISOR Clinical Communication Virtual Review in [place], [place] [address] [place] [address] 12/24/2023 10:30 AM SORTING AND FOLDING SUPERVISOR Appointment Department of Radiology, [facility], in [address] [phone] Noelle Reyes P.A.-C., P.A. [address] [place] [address] 12/24/2023 11:00 AM SORTING AND FOLDING SUPERVISOR Lab Department of Infusion Therapy in [address] [phone] Noelle Reyes P.Shantal.-C., P.A. [address] [place] [address] 12/24/2023 2:15 PM SORTING AND FOLDING SUPERVISOR Office Visit Department of Palliative Care in [place], [place] [address] [place] [address] Aylin Smith APRN, C.N.P., M.S.N. [address] [place] [address] 12/24/2023 4:10 PM SORTING AND FOLDING SUPERVISOR Office Visit Department of Oncology in [place], [place] [address] [place] [address] Ned Alegria M.D. 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 Author Your pain? Symptom Management 9(11/20/2022 2:41 PM SORTING AND FOLDING SUPERVISOR) No Fee-Girma Bush, R.N., O.C.N. Note: 05/24/2021: Pain algorithm completed. [facility] [place]: Followup 06/07 via portal [...] Dilaudid as needed per conversation with Dr. Guzman. He is aware that once he starts radiation, the intent is to help with the pain and anticipates that his need for medication may change. KFS 06/07/2021: Pain rating over the past 7 days: 7/10 Recommendations at initial call and response: Mr. Tabares had a flare up of pain after initial assessment and spoke with Dr. Guzman. He was switched over to oxycodone and [...] documented as of this encounter Results * MR Abdomen MRCP [...] image 40, 61, 68) and segment 5/6 ( image 103) have also very slightly increased in size. Additional linearareas of hypoenhancement along the inferior margin of the prior ablationdefect tract near the hepatic hilum and may represent hilar adenopathy (series 13 image 81). 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
--- OUTSIDE RECORDS SUMMARY | 2023-12-18 17:27 | XMS_ITS | Encounter Summary ---
Author Name Unknown Organization [facility] Address [address] [place] [address] Care Team Providers Care Property Management Supervisor Name Role Phone Elsewhere, Pcp Primary Care Provider Unavailabl e Encounter Details Date Type Department Care Team (Late st Contact Info) Description 09/26/2023 Orders Only Department of Oncology in [place], [place] [address] [place] [phone] Kristi Dominique M.D. [address] [place] [address] Social History Tobacco Use Types [...] How often do you attend chur or religion services? Never 02/03/2023 Do you belong to any clubs o r organizations such as mosque groups, unions, fraternal or athletic groups, or [...] Date Recorded PHQ-2 Score 0 04/25/2019 [facility] - [facility]ational Stress Questionnaire Answer Date Recorded [...] degree (e.g., MA, MS, Ana Lilia, MEd, SCIENTIFIC SOFTWARE ENGINEER, GORDO) 02/15/2022 Sex and Gender Information Value Date Recorded Sex Assigned at Male 04/23/2018 1:23 PM CDT Gender Identity Male 04/23/2018 1:23 PM CDT Sexual Orientation Straight 04/23/2018 1: 23 PM CDT documented as of this encounter Plan of Treatment Upcoming Encounters Date Type Department Care Team (Late st Contact Info) Description 12/23/2023 8:30 AM DRAMATIC AGENT Clinical Communication Virtual Review in [place], [place] [address] [place] [address] 12/24/2023 10:30 AM DRAMATIC AGENT Appointment Department of Radiology, [facility], in [place], [place] [address] [place] [address] Noelle Reyes PKaycee.Winston., P.A. [address] [place] [phone] 12/24/2023 11:00 AM DRAMATIC AGENT Lab Department of Infusion Therapy in [place], [place] [address] [place] [phone] Noelle Reyes P.A.-C., P.A. [address] [place] [phone] 12/24/2023 2:15 PM DRAMATIC AGENT Office Visit Department of Palliative Care in [place], [place] [address] [place] [phone] Aylin Smith, CINDY, C.N.P., M.S.N. [address] [place] [phone] 12/24/2023 4:10 PM DRAMATIC AGENT Office Visit Department of Oncology in [place], [place] [address] [place] [phone] Ned Alegria M.D. [address] [place] [phone] documented as of this encounter Goals Goal Patient Goal Type Associated Problems Recent Progress Patient-Stated? Author Your pain? Symptom Management 9(11/20/2022 2:41 PM DRAMATIC AGENT) No Phyllis-Girma Bush, RCandidoN., O.C.N. Note: 05/24/2021: Pain algorithm completed. [facility] 05/24/2021: Followup 06/07 via portal per patient [...] documented as of this encounter Care Teams Property Management Supervisor Relationship Specialty Start Date End Date Elsewhere, Pcp PCP - General Internal Medicine 10/14/22 documented as of this encounter
--- OUTSIDE RECORDS SUMMARY | 2023-12-18 17:28 | XMS_ITS | Encounter Summary ---
Author Name Unknown Organization [facility] Address [address] [place] [id number] Care Team Providers Care Respiratory Manager Name Role Phone Elsewhere, Pcp Primary Care Provider Unavailabl e Reason for Referral * Outpatient (Routine) - Closed Specialty Diagnoses / Procedures Referred By Contac t Referred To Contact Diagnoses Pain Epigastric Procedures US Gallbladder and or Biliary Ducts Margaret Baptiste M.D., M.S. [address] [place] [phone] [facility] Referral ID Status Reason Start Date Expiration Date Visits Re quested Visits Authorized [id number] Closed 08/20/2023 08/19/2024 1 1 Encounter Details Date Type Department Care Team (Late st Contact Info) Description 08/20/2023 Orders Only Division of Gastroenterology in [place], [place] [address] [place] [phone] Margaret Baptiste M.D., M.S. [address] [place] [phone] Pain Epigastric (Primary Dx) Social History Tobacco Use Types [...] How often do you attend chur or restoration services? Never 02/03/2023 Do you belong to any clubs o r organizations such as anglican groups, unions, fraternal or athletic groups, or [...] Answer Date Recorded PHQ-2 Score 0 04/25/2019 [facility] - Occupational Stress Questionnaire Answer [...] degree (e.g., MA, MS, Ana Lilia, MEd, PLANT AND MACHINERY VALUER, [employer]) 02/15/2022 Sex and Gender Information Value Date Recorded Sex Assigned at Male 04/23/2018 1:23 PM CDT Gender Identity Male 04/23/2018 1:23 PM CDT Sexual Orientation Straight 04/23/2018 1: 23 PM CDT documented as of this encounter Plan of Treatment Upcoming Encounters Date Type Department Care Team (Late st Contact Info) Description 12/23/2023 8:30 AM SPRING BENDER Clinical Communication Virtual Review in [place], [place] 200 [place] [address] 12/24/2023 10:30 AM SPRING BENDER Appointment Department of Radiology, [facility] in [place], [place] [address] [place] [phone] Noelle Reyes PCandidoA.-C., P.A. [address] [place] [phone] 12/24/2023 11:00 AM SPRING BENDER Lab Department of Infusion Therapy in [place], [place] [address] [place] [phone] Noelle Reyes P.A.-C., P.A. [address] [place] [phone] 12/24/2023 2:15 PM SPRING BENDER Office Visit Department of Palliative Care in [place], [place] [address] [place] [phone] Aylin Smith, CINDY, C.N.P., M.S.N. [address] [place] [phone] 12/24/2023 4:10 PM SPRING BENDER Office Visit Department of Oncology in [place], [place] [address] [place] [phone] Ned Alegria M.D. [address] [place] [phone] documented as of this encounter Goals Goal Patient Goal Type Associated Problems Recent Progress Patient-Stated? Author Your pain? Symptom Management 9(11/20/2022 2:41 PM SPRING BENDER) No Fee-Girma Bush, R.N., O.C.N. Note: 05/24/2021: Pain algorithm completed. [facility] [place]21: Followup 06/07 via portal per patient [...] documented as of this encounter Results * US Gallbladder and or Biliary Ducts (08/25/2023 11:14 AM CDT) Anatomical Region Laterality Modality Abdomen, Ultrasound RST LOS, Ultrasound ARZ LOS, Ultrasound FLA LOS N/A Ultrasound 08/25/2023 11:1 1 AM CDT Impressions 08/25/2023 11:16 AM CDT Normal gallbladder. No bile duct dilatation. Narrative 08/25/2023 11:16 AM CDT EXAM: US GALLBLADDER AND OR BILIARY DUCTS COMPARISON: 07/30/2023 FINDINGS: Gallbladder: Normal. No gallstones. No wall thickening or pericholecystic fluid. ??Negative sonographic Martinez sign. Intrahepatic ducts: Not dilated. Common duct: Not dilated. Aorta: Normal caliber. Incidentally noted is mild fatty infiltration of the liver with 9.3 cm defect in the right hepatic lobe with avascular peripheral nodularity. This correlates with the site of prior ablation in the right hepatic dome. Procedure Note Ramon Galindo M.D. - 08/25/2023 EXAM: US GALLBLADDER AND OR BILIARY DUCTS COMPARISON: 07/30/2023 FINDINGS: Gallbladder: Normal. No gallstones. No wall thickening or pericholecysticfluid. Negative sonographic Martinez sign. Intrahepatic ducts: Not dilated. Common duct: Not dilated. Aorta: Normal caliber. Incidentally noted is mild fatty infiltration of the liver with 9.3 cmdefect in the right hepatic lobe with avascular peripheral nodularity. This correlates with the siteof prior ablation in the right hepatic dome. IMPRESSION: Normal gallbladder. No bile duct dilatation. Margaret Baptiste M.D., M.S. IMG US PRO CEDURES documented in this encounter Visit Diagnoses Diagnosis Pain Epigastric- Primary Pain Epigastric documented in this encounter Additional Health Concerns Assessment Noted Time PHQ-9 Depression Total Score: 7 05/26/20 18 10:22 PM CDT documented as of this encounter Care Teams Respiratory Manager Relationship Specialty Start Date End Date Elsewhere, Pcp PCP - General Internal Medicine 10/14/22 documented as of this encounter
--- OUTSIDE RECORDS SUMMARY | 2023-12-18 17:28 | XMS_ITS | Encounter Summary ---
Author Name Unknown Organization [facility] Address [address] [place] [id number] Care Team Providers Care Computer Operations Manager Name Role Phone Elsewhere, Pcp Primary Care Provider Unavailabl e Reason for Referral * Outpatient (Routine) - Closed Specialty Diagnoses / Procedures Referred By Contac t Referred To Contact Diagnoses Abdominal Pain Procedures FL Celiac Plexus/Splanchnic Block Injection LA INJ ANES AGENT CELIAC PLEX Sean Shen D.O. [address] [place] [phone] [facility] Referral ID Status Reason Start Date Expiration Date Visits Re quested Visits Authorized [id number] Closed 08/27/2023 08/26/2024 1 1 Reason for Visit * Outpatient (Routine) - Closed Specialty Diagnoses / Procedures Referred By Contac t Referred To Contact Diagnoses Abdominal Pain Procedures FL Celiac Plexus/Splanchnic Block Injection LA INJ ANES AGENT CELIAC PLEX Sean Shen D.O. 200 [place] [phone] [facility] Referral ID Status Reason Start Date Expiration Date Visits Re quested Visits Authorized [id number] Closed 08/27/2023 08/26/2024 1 1 Encounter Details Date Type Department Care Team (Latest Contact Info) Description 09/03/2023 11:51 AM CDT - 09/03/2023 11:59 PM CDT Hospital Encounter Division of Pain Medicine in [place], [place] [address] [place] [phone] Sean Shen D.O. [address] [place] [phone] Abdominal Pain Discharge Disposition: Home or Self Care Social [...] How often do you attend chur or zoroastrianism services? Never 02/03/2023 Do you belong to any clubs o r organizations such as evangelical groups, unions, fraternal or athletic groups, or [...] Answer Date Recorded PHQ-2 Score 0 04/25/2019 [facility] - Occupational Stress Questionnaire Answer Date [...] place to sleep or slept in a prison (including now)? No 02/03/2023 Nutrition Answer Date [...] degree (e.g., MA, MS, Ana Lilia, MEd, OPTOMETRIC TECHNOLOGIST, [employer]) 02/15/2022 Sex and Gender Information Value Date Recorded Sex Assigned at Male 04/23/2018 1:23 PM CDT Gender Identity Male 04/23/2018 1:23 PM CDT Sexual Orientation Straight 04/23/2018 1: 23 PM CDT documented as of this encounter Last Filed Vital Signs Vital Sign Reading Time Taken Comments Blood Pressure 127/82 09/03/2023 1:45 PM CDT Pulse 125 09/03/2023 1:45 PM CDT Temperature 36.4 ??C (97.5 ??F) 09/03/2023 12:22 PM C DT Respiratory Rate 10 09/03/2023 1:45 PM CDT Oxygen Saturation 96% 09/03/2023 1:45 PM CDT Inhaled Oxygen Concentration - - Weight - [...] daily, as needed. 30 g 3 03/07/2022 ascorbic acid, vitamin C, (VITAMIN C) 250 [...] mouth daily. 0 LORazepam (ATIVAN) 0.5 mg tabletIndications:Malig nant Neoplasm Of Rectum (HCC),Secondary Malignant Neoplasm Lymph [...] chest pain. 25 tablet 12 05/28/2018 omega 3-kfe-sdg-fish oil 1,000 mg (120 mg-180 mg) capsule Take 2 capsules by mouth. 0 05/16/2022 potassium chloride (K-TAB) 20 mEq CR tablet Take 20 mEq by mouth 2 (two) times a day. 0 06/09/2023 TURMERIC ORAL Take 1 tablet by mouth every morning. 0 amLODIPine (NORVASC) 10 mg tablet Take 1 tablet (10 mg total) by mouth every morning. 30 tablet 3 08/25/2023 09/18/2023 DULoxetine (CYMBALTA) [address] capsule Take [...] as of this encounter Procedure Notes * Ton Quiros II, M.D., M.B.A. - 09/03/2023 1:00 PM CDTAssociated Order(s): FL Celiac Plexus/Splanchnic Block Injection Pre-Procedure Diagnose(s): Abdominal Pain Post-Procedure Diagnose(s): Abdominal Pain FL Celiac Plexus/Splanchnic Block Injection Performed by: Ton Quiros II, M.D., M.B.A. Authorized by: Sean Shen D.O. Care team members present 1. Sadie Guerrier L.P.N. PROCEDURE SUMMARY Indications: Intractable abdominal pain Pre-procedural pain: 10 Post-procedural pain: 05/26 Site: advanced procedures Procedures: splanchnic/celiac plexus block Splanchnic/celiac plexus block: non-neurolytic Needle or RF cannula: Spinal Needle size: 22 G Needle length: 5 in Patient position: prone IMAGING Fluoroscopic image guidance used to localize target, identify at risk structures, and dynamically used to direct therapy to the target. Image(s) acquired and saved. SEDATION MEDICATIONS Midazolam (mg): 2 Fentanyl (mcg): 100 INJECTED MEDICATIONS The injected medication(s) listed was divided equally between the identified injection location(s) Total volume of injectate (mL): 20 Total steroid in injectate (mg): 10 10 mL BUPivacaine-EPINEPHrine (PF) 0.5 %-1:200,000 9 mL lidocaine 20 mg/mL 10 mg dexAMETHasone 10 mg/mL 50 mcg cloNIDine 1,000 mcg/10 mL (100 mcg/mL) 1 mL iohexoL 300 mg iodine/mL PROCEDURE DETAILS Splanchnic/celiac plexus block: Prior to the procedure, intravenous access was obtained and the Intravaneous fluids were given prior to the start of the procedure and continued to run throughout the procedure. Using fluoroscopy, the bilateral anterolateral aspects of the L1 vertebral body were visualized using a posterior oblique approach. Skin entry points were identified over these targets, staying adjacent to the lateral aspect of the vertebral body and inferior to the 12th ribs. Using fluoroscopic guidance, spinal needles were inserted and advanced incrementally until the final needle position was just anterior to the L1 vertebral body which was verified with lateral and AP fluoroscopicviews. After negative aspiration, contrast was injected and confirmed appropriate linear spread along the anterior vertebral bodies, without evidence of intravascular, intrathecal, intracrural, intramuscular, or intradiscal uptake. Following this the solution was injected on each side. A directed sensorimotor examination of the lower extremities was performed after waiting an appropriate amount of time and did not show development of any new neurologic deficits. At this point the neurolytic agent was injected slowly and incrementally, with serial negative aspirations, through each needle. Theneedles were then flushed with local anesthetic as they were withdrawn from the skin. The patient tolerated the procedure well and there were no apparent complications. After appropriate observation,the patient was dismissed in good condition under their own power. CONSENT Consent obtained: written (Risks, benefits and [...] SEDATION / ANESTHESIA Anesthesia method: local infiltration and moderate sedation Local infiltrate type: lidocaine I completed the presedation assessment form and supervised the sedation. Planned sedation level achieved: yes Present during sedation (intra-service time). A trained independent observer (e.g. RN) assisted with monitoring the patient's level of consciousness and physiological status throughout the procedure (see nursing documentation). ATTESTATION STATEMENT The teaching physician rule is not applicable. OPERATIVE NOTE INFORMATION Specimens: 0 Drains: 0 Estimated blood loss: 0 Implants: 0 documented in this encounter Plan of Treatment Upcoming Encounters Date Type Department Care Team (Late st Contact Info) Description 12/23/2023 8:30 AM DIRECTOR OF TECHNOLOGY Clinical Communication Virtual Review in [place], [place] 200 [place] [address] 12/24/2023 10:30 AM DIRECTOR OF TECHNOLOGY Appointment Department of Radiology, [facility], in [place], [place] [address] [place] [phone] Noelle Reyes P.A.-C., P.A. [address] [place] [phone] 12/24/2023 11:00 AM DIRECTOR OF TECHNOLOGY Lab Department of Infusion Therapy in [place], [place] [address] [place] [phone] Noelle Reyes P.A.-C., P.A. [address] [place] [phone] 12/24/2023 2:15 PM DIRECTOR OF TECHNOLOGY Office Visit Department of Palliative Care in [place], [place] [address] [place] [phone] Aylin Smith APRN, C.N.P., M.S.N. [address] [place] [phone] 12/24/2023 4:10 PM DIRECTOR OF TECHNOLOGY Office Visit Department of Oncology in [place], [place] [address] [place] [phone] Ned Alegria M.D. [address] [place] [phone] documented as of this encounter Goals Goal Patient Goal Type Associated Problems Recent Progress Patient-Stated? Author Your pain? Symptom Management 9(11/20/2022 2:41 PM DIRECTOR OF TECHNOLOGY) No Phyllis-Girma Bush, R.N., O.C.N. Note: 05/24/2021: Pain algorithm completed. [facility] [place]: Followup 06/07 via portal per patient [...] Name Priority Date/Time Associated Diagnosis Comments FL CELIAC PLEXUS/SPLANCHNIC BLOCK INJECTION Routine 09/03/2023 1:35 PM CDT Abdominal Pain documented in this encounter Results * FL Celiac Plexus/Splanchnic Block Injection (09/03/2023 1:35 PM CDT) Narrative Ton Quiros II, M.D., M.B.A. - 09/03/2023 1:00 PM CDT Ton Quiros II, M.D., M.B.A. ? 09/03/2023 ??2:00 PM FL Celiac Plexus/Splanchnic Block Injection Performed by: Ton Quiros II, M.D., M.B.A. Authorized by: Sean Shen D.O. ?? Care team members present 1. Sadie Guerrier, L.P.N. PROCEDURE SUMMARY Indications: Intractable abdominal pain Pre-procedural pain: 710 Post-procedural pain: 10 Site: advanced procedures Procedures: splanchnic/celiac plexus block Splanchnic/celiac plexus block: non-neurolytic Needle or RF cannula: Spinal Needle size: 22 G Needle length: 5 in Patient position: prone IMAGING Fluoroscopic image guidance used to localize target, identify at risk structures, and dynamically used to direct therapy to the target. Image(s) acquired and saved. SEDATION MEDICATIONS Midazolam (mg): 2 Fentanyl (mcg): 100 INJECTED MEDICATIONS The injected medication(s) listed was divided equally between the identified injection location(s) Total volume of injectate (mL): 20 Total steroid in injectate (mg): 10 10 mL BUPivacaine-EPINEPHrine (PF) 0.5 %-1:200,000 9 mL lidocaine 20 mg/mL 10 mg dexAMETHasone 10 mg/mL 50 mcg cloNIDine 1,000 mcg/10 mL (100 mcg/mL) 1 mL iohexoL 300 mg iodine/mL PROCEDURE DETAILS ?? Splanchnic/celiac plexus block: Prior to the procedure, intravenous access was obtained and the Intravaneous fluids were given prior to the start of the procedure and continued to run throughout the procedure. Using fluoroscopy, the bilateral anterolateral aspects of the L1 vertebral body were visualized using a posterior oblique approach. Skin entry points were identified over these targets, staying adjacent to the lateral aspect of the vertebral body and inferior to the 12th ribs. Using fluoroscopic guidance, spinal needles were inserted and advanced incrementally until the final needle position was just anterior to the L1 vertebral body which was verified with lateral and AP fluoroscopic views. After negative aspiration, contrast was injected and confirmed appropriate linear spread along the anterior vertebral bodies, without evidence of intravascular, intrathecal, intracrural, intramuscular, or intradiscal uptake. Following this the solution was injected on each side. A directed sensorimotor examination of the lower extremities was performed after waiting an appropriate amount of time and did not show development of any new neurologic deficits. At this point the neurolytic agent was injected slowly and incrementally, with serial negative aspirations, through each needle. The needles were then flushed with local anesthetic as they were withdrawn from the skin. The patient tolerated the procedure well and there were no apparent complications. After appropriate observation, the patient was dismissed in good condition under their own power. ?? CONSENT Consent obtained: written (Risks, benefits and [...] SEDATION / ANESTHESIA Anesthesia method: local infiltration and moderate sedation Local infiltrate type: lidocaine I completed the presedation assessment form and supervised the sedation. Planned sedation level achieved: yes ?? Present during sedation (intra-service time). A trained independent observer (e.g. RN) assisted with monitoring the patient's level of consciousness and physiological status throughout the procedure (see nursing documentation). ATTESTATION STATEMENT The teaching physician rule is not applicable. OPERATIVE NOTE INFORMATION Specimens: 0 Drains: 0 Estimated blood loss: 0 Implants: 0 Sean Shen D.O. FLUORO GUIDED PAIN P ROCEDURES documented in this encounter Visit Diagnoses Diagnosis Abdominal Pain documented in this encounter Administered Medications Inactive Administered Medications - up to 3 most recent administrations Medication Order MAR Action Action Date Dose Rate Site BUPivacaine-EPINEPHrine (PF) 0.5 %-1:200,000 injection 10 mL (MARCAINE w/EPI) 10 mL, injection, One-Time Injection, Starting on Fri09/03/23 at 1300, For 1 dose Given 09/03/2023 1:00 PM CDT 10 mL cloNIDine injection 50 mcg (DURACLON) 50 mcg, injection, One-Time Injection, Starting on Fri09/03/23 at 1300, For 1 dose Given 09/03/2023 1:00 PM CDT 50 mcg dexAMETHasone injection 10 mg (DECADRON) 10 mg, injection, One-Time Injection, Starting on Fri09/03/23 at 1300, For 1 dose Given 09/03/2023 1:00 PM CDT 10 mg fentaNYL injection (SUBLIMAZE) intravenous, As needed, Starting on Fri09/03/23 at 1315, Intra-Op Given 09/03/2023 1:15 PM CDT 100 mcg heparin flush 500 Units 500 Units, intra-catheter, During hospitalization, line care, Prior to discharge, Starting on Fri09/03/23 at 1339, For 1 dose, Implanted Vascular Access Device (IVAD) Venous Non-Valved: Following saline flush prior to discharge. Given 09/03/2023 2:09 PM CDT 500 Units iohexoL 300 mg iodine/mL solution 1 mL (OMNIPAQUE) 1 mL, injection, One-Time Injection, Starting on Fri09/03/23 at 1300, For 1 dose Given 09/03/2023 1:00 PM CDT 1 mL lidocaine 20 mg/mL injection 9 mL (XYLOCAINE) 9 mL, injection, One-Time Injection, Starting on Fri09/03/23 at 1300, For 1 dose Given 09/03/2023 1:00 PM CDT 9 mL midazolam (PF) injection (VERSED) As needed, Starting on Fri09/03/23 at 1315, Intra-Op Given 09/03/2023 1:15 PM CDT 2 mg sodium chloride 0.9 % injection 10 mL 10 mL, intravenous, During hospitalization, line care, Prior to discharge, Starting on Fri09/03/23 at 1339, For 1 dose, Implanted Vascular Access Device (IVAD) Venous Non-Valved: Followed by heparin flush prior to discharge. Given 09/03/2023 2:09 PM CDT 10 mL documented in this encounter Additional Health Concerns Assessment Noted Time PHQ-9 Depression Total Score: 7 05/26/20 18 10:22 PM CDT documented as of this encounter Care Teams Computer Operations Manager Relationship Specialty Start Date End Date Elsewhere, Pcp PCP - General Internal Medicine 10/14/22 documented as of this encounter
--- OUTSIDE RECORDS SUMMARY | 2023-12-18 17:28 | XMS_ITS | Encounter Summary ---
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 [address] [place] [address] [facility] Referral ID Status Reason Start Date Expiration Date Visits Re quested Visits Authorized [id number] Closed 08/27/2023 08/26/2024 1 1 Reason for Visit * Reason Comments Treatment * Outpatient (Routine) - Closed Specialty Diagnoses / Procedures Referred By Halima owen Referred To Contact Oncology Ned Alegria M.D. [address] [place] [address] [facility] Referral ID Status Reason Start Date Expiration Date Visits Re quested Visits Authorized [id number] Closed 07/31/2023 07/30/2026 1 1 Encounter Details Date Type Department Care Team ([facility] st Contact Info) Description 08/25/2023 8:20 AM CDT Office Visit Department of Oncology in [place], [place] [address] [place] [phone] Giorgio Guzman M.D. 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 Never 02/03/2023 Do you belong to [...] Answer Date Recorded PHQ-2 Score 0 04/25/2019 [facility] - Occupational [...] degree (e.g., MA, MS, Ana Lilia, MEd, [employer], GORDO) 02/15/2022 Sex and Gender Information Value Date Recorded Sex Assigned at Male 04/23/2018 1:23 PM CDT Gender Identity Male 04/23/2018 1:23 PM CDT Sexual Orientation Straight 04/23/2018 1: 23 PM CDT documented as of this encounter Last Filed Vital Signs Vital Sign Reading Time Taken Comments Blood Pressure 153/114 08/25/2023 8:08 AM CDT Pulse 113 08/25/2023 8:08 AM CDT Temperature 36.3 ??C (97.3 ??F) 08/25/2023 8:08 AM CD T Respiratory Rate 15 08/25/2023 8:08 AM CDT Oxygen Saturation 95% 08/25/2023 8:08 AM CDT Inhaled Oxygen Concentration - - Weight 88.5 kg (195 lb 1.7 oz) 08/25/2023 8:08 A M CDT Height 181.5 cm (5' 11.46) 08/25/2023 8:08 AM C DT Body Mass Index 26.86 08/25/2023 8:08 AM CDT documented in this encounter Progress Notes * Giorgio Guzman M.D. - 08/25/2023 8:20 AM CDT SUBJECTIVE PRIMARY CARE PHYSICIAN ELSEWHERE, PCP LOCAL ONCOLOGIST No care teamcenter solution architect to display PRIMARY REEDS ONCOLOGIST Giorgio Guzman M.D. CHIEF COMPLAINT / [...] was positive for invasive adenocarcinoma. Came to [place] and seen by Gastroenterology. Underwent staging MRI [...] Right posterolateral thoracotomy and mediastinal lymphadenectomy. SURGEON(S) CANTEEN MANAGER: Jazmine Bowden M.D. 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 He underwent endoscopy in his back today for evaluation of his gallbladder. He still is having right rib pain as well as multiple other areas of bonepain. These include upper spine as well as SI joint region. He did have the SI joint regions injected in early July without much improvement. He is now also having some upper abdominal pain in th e subxiphoid region. This may be causing some lower thoracic pain. He has been off chemotherapy dueto myelosuppression for 6-8 weeks. He still remains at work full-time. The following portions of the patient's history were reviewed and updated as appropriate: allergies, current medications, family history, medical history, social history, surgical history and problemlist. REVIEW OF SYSTEMS Constitution: Mild fatigue, but no fever, or anorexia, he has had some weight loss but recently gained Skin: No rash or change in mole Eyes: No vision problems ENT: No scleral icterus or mouth sores Respiratory: No cough, shortness of breath, or wheezing Cardiovascular: No chest pain, tightness, palpitations or lower extremity swelling Gastrointestinal: GI symptoms as above Genitourinary: No frequency, hematuria, or dysuria Musculoskeletal: No back pain or joint swelling Neurologic: No headache, seizures or slurred speech, he has persistent peripheral neuropathy especially in his feet and fingertips OBJECTIVE PHYSICAL EXAM ECOG 1 - symptomatic but completely ambulatory BP (!) 153/114 (BP Location: Left arm, Patient Position: Sitting, Cuff Size: Regular) Pulse (!) 113 Temp 36.3 ??C (Oral) Resp 15 Ht 181.5 cm Wt 88.5 kg SpO2 95% BMI 26.86 kg/m?? General: Alert and oriented. Appears healthy and in no acute distress. Skin: No rashes. Lymph: There is no lymphadenopathy in the neck, supraclavicular, or axillary regions. Abdomen: Nontender to palpation. Surgical scars are well-healed. No visceromegaly detected. No abdominal distention noted Extremities: No edema. Pulses full. No calf pain. Gait: Normal. LABORATORY DATA Lab data reviewed. Current blood counts were reviewed. RADIOLOGICAL DATA Radiology data reviewed. Recent CT scan chest, abdomen and pelvis results are noted. There is progression in the right rib region as well as upper abdominal lymph nodes and liver/lung metastases. No obvious metastatic disease noted in the lower spine. 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 Tabares and his who was available by telephone. We would a long discussion with regard to his current clinical symptoms. I told them that unfortunately with some symptoms, we do not have an exact reason for pain. His right rib pain and upper abdominal pain may be related to progression in the right rib as well as upper abdominal lymphadenopathy. He is currently on medical therapy to help with his pain but only is taking Dilaudid 2 mg at night due to the fact that this causes drowsiness and he can not take this during the day. For now I would continue to hold with systemic therapy. Given multiple prior therapies, I can not guarantee that any new chemotherapy regimen would help with his ongoing pain. I will reach out to Radiation Oncology to discuss possible reirradiation of the right rib area. He did get this injected previously and felt there may have been some benefit. We can also discuss withRadiation Oncology possibility of ablative of doses of radiation therapy to the celiac plexus. I recently discuss this option with one of my radiation oncology colleagues and we will explore this possibility. Otherwise we could consider help from pain clinic with possible injection to celiac plexusas well as rib region. In the meantime he will continue with medical therapy for his pain. We did talk about other treatment options including resuming panitumumab along with Irinotecan. Otherwise oral therapy with Lonsurf and Avastin can be considered. #5 Essential hypertension, likely secondary to bevacizumab He is currently only on Norvasc 5 mg. I will increase this to 10 mg and he will continue to monitorthis. Addendum: In reviewing his case with Radiation Oncology, Dr. Rodrigez, she could consider radiating area of therib but was not sure this was the cause of his current pain. Unfortunately given prior treatment inthe upper abdominal lymph nodes, any radiation to the celiac plexus would not be feasible. Given this finding, we will hold off on radiation oncology for now. I will go ahead and work with pain medicine to see if further injection of the rib lesion can be considered plus or minus celiac plexus block. After further discussion with pain medicine, I will also go ahead and get PET scan to rule out symptomatic bony lesion in the spine/pelvis. PATIENT EDUCATION Ready to learn, no apparent [...] Addendum Note - Giorgio Guzman M.D. - 08/25/2023 8:20 AM CDTAddended by: GIORGIO GUZMAN on: 08/27/2023 03:22 PM Modules accepted: Orders documented in this encounter Plan of Treatment Upcoming Encounters Date Type Department Care Team (Late st Contact Info) Description 12/23/2023 8:30 AM [facility] [[email or web address]] Clinical Communication Virtual Review in [address] [phone] 12/24/2023 10:30 AM [employer] Appointment Department of Radiology, [facility], in [place], [place] [address] [place] [phone] Noelle Reyes P.A.-C., P.A. [address] [place] [phone] 12/24/2023 11:00 AM [employer] Lab Department of Infusion Therapy in [place], [place] [address] [place] [phone] Noelle Reyes P.A.-C., P.A. [address] [place] [phone] 12/24/2023 2:15 PM [employer] Office Visit Department of Palliative Care in [place], [place] [address] [place] [phone] Aylin Smith APRN, CCandidoN.P., M.S.N. [address] [place] [phone] 12/24/2023 4:10 PM [employer] Office Visit Department of Oncology in [place], [place] [address] [place] [phone] Ned Alegria M.D. [address] [place] [phone] documented as of this encounter Goals Goal Patient Goal Type Associated Problems Recent Progress Patient-Stated? Author Your pain? Symptom Management 9(11/20/2022 2:41 PM [employer]) No Fee-Girma Bush, RCandidoN., O.C.N. Note: 05/24/2021: Pain algorithm completed. [facility] 05/24/2021: Followup 06/07 [...] documented as of this encounter Results * PET CT Skull to Thigh FDG (08/29/2023 1:59 PM CDT) Anatomical Region Laterality Modality Body, Nuclear Medicine PET R ST LOS, PET ARZ LOS, Nuclear Medicine PET FLA LOS, Nuclear Medicine N/A Positron Emission Tomography (PET), Positron Emission Tomography (PET) 08/29/2023 3:32 PM CDT Impressions 08/29/2023 3:59 PM CDT FDG avid pulmonary, eduar, hepatic and osseous metastases, which have overall progressed from FDG PET/CT dated 08/05/2022. They have no significant change from the most recent CT dated 07/30/2023 allowing for the difference in modality. Narrative 08/29/2023 3:59 PM CDT EXAM: ??PET CT SKULL TO THIGH FDG Serum glucose at time of F-18 FDG injection was 97 mg/dL. Patient followed standard dietary/fasting requirements for this exam. RADIOPHARMACEUTICAL/MEDS: Route: intravenous fludeoxyglucose F 18 injection [facility] (FDG F-18),10.11 millicurie TECHNIQUE: ??F-18 FDG PET/CT scan was performed from the orbits through the thighs with low dose, non-contrast, free-breathing CT images for attenuation correction and anatomic localization (AC/AL), with imaging beginning at approximately 60 minutes after radiotracer injection. COMPARISON: ??FDG PET/CT dated 08/05/2022, CT dated 07/30/2023, and other previous studies INDICATION: ??Restaging metastatic rectal cancer. Neoadjuvant chemoradiation followed by laparoscopic proctectomy with coloanal anastomosis 2017. Right thoracotomy with multiple wedge excisions in 2018. Right posterolateral thoracotomy and mediastinal lymphadenectomy in 2019. Radiation for right mediastinum in 2019. Radiation for the right posterior 5th rib May 2021. CT- Ablation of two hepatic metastases in 2021. Chemotherapy. ??Subsequent treatment strategy. The patient reports having received a vaccination in the left arm within the last two months. FINDINGS: ?? Again demonstrated are multiple FDG avid solid pulmonary nodules in both lungs, which have increased in FDG uptake in size since the prior FDG PET/CT dated 08/05/2022. For instance, a left upper lobe nodule near the major fissure measures 1.0 cm with an SUV max of 7.5 (image 106), previously 1.2 cm with an SUV max of 3.0. Interval increased FDG uptake of the right mediastinal and right hilar lymph nodes since FDG PET/CT dated 08/05/2022. For instance, a lower right paratracheal lymph node has an SUV max of 5.2 (image 105), previously 3.5. A subcarinal lymph node has an SUV max of 7.3 (image 108), previously 5.5. New FDG avid paraesophageal lymph node with an SUV max of 4.9 (image 138). Interval increase in size and FDG uptake of the conglomerate portacaval lymph node measuring 4.7 x 3.0 cm with an SUV max of 9.9 (image 169), previously 3.0 x 2.0 cm with an SUV max of 7.8. Interval resolution of the previously noted metabolic activity in the left hilar lymph node. Interval decreased FDG uptake of the retrocrural lymph node with an SUV max of 3.5 (image 155), previously 5.2. Reactive activity in the right posterior lung radiation pneumonitis. Interval increased FDG uptake in the right 5th rib medial to the radiated region with an SUV max of 5.0 (image 99), suspicious for recurrent osseous metastasis. Stable photopenia in the ablation defect in the liver. Multiple FDG avid hepatic lesions which are seen on CT dated 07/30/2023 but are new from the prior FDG PET/CT dated 08/05/2022, consistent with hepatic metastases. For instance, a right hepatic dome lesion has an SUV max of 4.3. Incidental significant findings on low-dose, noncontrast CT: Right Port-A-Cath with the tip in RA/SVC. Gynecomastia. Right lower lobe with resection. Pathologic right 5th rib fracture. Atrophic right maxillary sinus with opacification. Prostatectomy with coronal anastomosis. Procedure Note Carrie Bravo M.D., Ph.D. - 08/29/2023 EXAM: PET CT SKULL TO THIGH FDG Serum glucose at time of F-18 FDG injection was 97 mg/dL. Patient followedstandard dietary/fasting requirements for this exam. RADIOPHARMACEUTICAL/MEDS: Route: intravenous fludeoxyglucose F 18 injection [facility] (FDG F-18),10.11 millicurie TECHNIQUE: F-18 FDG PET/CT scan was performed from the orbits through thethighs with low dose, non-contrast, free-breathing CT images for attenuation correction andanatomic localization (AC/AL), with imaging beginning at approximately 60 minutes after radiotracerinjection. COMPARISON: FDG PET/CT dated 08/05/2022, CT dated 07/30/2023, and otherprevious studies INDICATION: Restaging metastatic rectal cancer. Neoadjuvantchemoradiation followed by laparoscopic proctectomy with coloanal anastomosis 2017. Right thoracotomy withmultiple wedge excisions in 2019. Right posterolateral thoracotomy and mediastinal lymphadenectomy in 2019.Radiation for right mediastinum in 2019. Radiation for the right posterior 5th rib May 2021.CT- Ablation of two hepatic metastases in 2021. Chemotherapy. Subsequent treatment strategy. The patient reports having received a vaccination in the left arm withinthe last two months. FINDINGS: Again demonstrated are multiple FDG avid solid pulmonary nodules in bothlungs, which have increased in FDG uptake in size since the prior FDG PET/CT dated 08/05/2022. Forinstance, a left upper lobe nodule near the major fissure measures 1.0 cm with an SUV max of 7.5(image 106), previously 1.2 cm with an SUV max of 3.0. Interval increased FDG uptake of the right mediastinal and right hilarlymph nodes since FDG PET/CT dated 08/05/2022. For instance, a lower right paratracheal lymph node hasan SUV max of 5.2 (image 105), previously 3.5. A subcarinal lymph node has an SUV max of 7.3 ([id number]), previously 5.5. New FDG avid paraesophageal lymph node with an SUV max of 4.9 (image 138).Interval increase in size and FDG uptake of the conglomerate portacaval lymph node measuring 4.7 x 3.0cm with an SUV max of 9.9 (image 169), previously 3.0 x 2.0 cm with an SUV max of 7.8. Interval resolution of the previously noted metabolic activity in the lefthilar lymph node. Interval decreased FDG uptake of the retrocrural lymph node with an SUVmax of 3.5 (image 155), previously 5.2. Reactive activity in the right posterior lung radiation pneumonitis.Interval increased FDG uptake in the right 5th rib medial to the radiated region with an SUV max of 5.0(image 99), suspicious for recurrent osseous metastasis. Stable photopenia in the ablation defect in the liver. Multiple FDG avidhepatic lesions which are seen on CT dated 07/30/2023 but are new from the prior FDG PET/CT dated08/05/2022, consistent with hepatic metastases. For instance, a right hepatic dome lesion has an SUVmax of 4.3. Incidental significant findings on low-dose, noncontrast CT: [id number] with the tip in RA/SVC. Gynecomastia. Right lower lobe with resection. Pathologic [id number] rib fracture. Atrophic right maxillary sinus with opacification. Prostatectomy with coronalanastomosis. IMPRESSION: FDG avid pulmonary, eduar, hepatic and osseous metastases, which haveoverall progressed from FDG PET/CT dated 08/05/2022. They have no significant change from the mostrecent CT dated 07/30/2023 allowing for the difference in modality. Giorgio Guzman M.D. 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
--- OUTSIDE RECORDS SUMMARY | 2023-12-18 17:28 | XMS_ITS | Encounter Summary ---
Author Name Unknown Organization [facility] Address [address] [place] [id number] Care Team Providers Care Mining Speculator Name Role Phone Elsewhere, Pcp Primary Care Provider Unavailabl e Reason for Referral * Outpatient (Routine) - Closed Specialty Diagnoses / Procedures Referred By Contac t Referred To Contact Diagnoses Malignant Neoplasm Of Rectum (HCC) Procedures EGD (EsophagealGastroDuodenoscopy ) Ned Alegria M.D. [address] [place] [phone] [facility] Referral ID Status Reason Start Date Expiration Date Visits Re quested Visits Authorized [id number] Closed 07/31/2023 07/30/2024 1 1 Reason for Visit * Outpatient (Routine) - Closed Specialty Diagnoses / Procedures Referred By Contac t Referred To Contact Diagnoses Malignant Neoplasm Of Rectum (HCC) Procedures EGD (EsophagealGastroDuodenoscopy ) Ned Alegria M.D. 200 [place] [address] [facility] Referral ID Status Reason Start Date Expiration Date Visits Re quested Visits Authorized [id number] Closed 07/31/2023 07/30/2024 1 1 Encounter Details Date Type Department Care Team (Latest Contact Info) Description 08/20/2023 6:49 AM CDT - 08/20/2023 11:59 PM CDT Hospital Encounter Division of Gastroenterology in [place], [place] [address] [place] [phone] Ned Alegria M.D. 200 [place] [phone] Miguel A Moctezuma M.D. 200 [place] [phone] Kyler Estrada, CASE TECHNICIAN, [employer], DNAP 200 [place] [phone] Malignant Neoplasm Of Rectum (HCC) Discharge Disposition: Home or Self Care [...] any clubs o r organizations such as episcopal groups, unions, fraternal or athletic groups, or [...] Answer Date Recorded PHQ-2 Score 0 04/25/2019 [facility] [place] of Occupat ional Health - Occupational Stress [...] degree (e.g., MA, MS, Ana Lilia, MEd, WICK TENDER, GORDO) 02/15/2022 Sex and Gender Information Value Date Recorded Sex Assigned at Male 04/23/2018 1:23 PM CDT Gender Identity Male 04/23/2018 1:23 PM CDT Sexual Orientation Straight 04/23/2018 1: 23 PM CDT documented as of this encounter Last Filed Vital Signs Vital Sign Reading Time Taken Comments Blood Pressure 151/114 08/20/2023 9:15 AM CDT Pulse 105 08/20/2023 9:18 AM CDT Temperature 36.4 ??C (97.5 ??F) 08/20/2023 9:15 AM CD T Respiratory Rate 19 08/20/2023 9:18 AM CDT Oxygen Saturation 96% 08/20/2023 9:18 AM CDT Inhaled Oxygen Concentration - - Weight 86.7 kg (191 lb 2.2 oz) 08/20/2023 7:31 A M CDT Height 180.3 cm (5' 10.98) 08/20/2023 7:31 AM C DT Body Mass Index 26.67 08/20/2023 7:31 AM CDT documented in this encounter Discharge Instructions * Attachments The following attachments cannot be sent through Care Everywhere. * Care Following Upper Endoscopy (Azeri) documented in this encounter Medications at Time of Discharge Medication Sig Dispensed Refills Start Date End Date ibuprofen (ADVIL,MOTRIN) 200 mg tablet Take 4 tablets (800 mg total) by mouth every 6 (six) hours as needed for pain. 0 08/24/2018 acetaminophen (TYLENOL) 500 mg tablet Take 2 [...] TO BOTH NOSTRILS ONCE DAILY 0 12/10/2022 LACTOBACILLUS ACIDOPHILUS ORAL Take 1 capsule by [...] chest pain. 25 tablet 12 05/28/2018 omega 8-sbu-ejm-fish oil 1,000 mg (120 mg-180 mg) capsule Take 2 capsules by mouth. 0 05/16/2022 potassium chloride (K-TAB) 20 mEq CR tablet Take 20 mEq by mouth 2 (two) times a day. 0 06/09/2023 TURMERIC ORAL Take 1 tablet by mouth every morning. 0 amLODIPine (NORVASC) 5 mg tablet Take 5 mg by mouth every morning. 0 12/28/2021 08/25/2023 gabapentin (NEURONTIN) 300 mg capsuleIndications:Rosie yanes Neoplasm Of Rectum (HCC),Pain Neuropathic TAKE 1 CAPSULE BY MOUTH THREE TIMES A DAY 90 capsule 3 07/30/2023 10/01/2023 HYDROmorphone (DILAUDID) 2 mg tabletIndications:Acute Pain Take 0.5 tablets (1 mg total) by mouth every 3 (three) hours as needed for pain for up to 8 doses Indication: Acute Pain. 4 tablet 0 02/19/2022 09/26/2023 pantoprazole (PROTONIX) 40 mg EC tabletIndications:Zuleyka ortez Neoplasm Of Rectum (HCC) Take 1 tablet (40 mg total) by mouth every morning. 90 tablet 1 04/22/2023 12/10/2023 DULoxetine (CYMBALTA) [address] capsule Take 1 capsule (60 mg total) by mouth daily. 90 capsule 3 05/23/2023 10/01/2023 melatonin 10 mg disintegrating tablet Take 10 mg by mouth at bedtime. 0 11/26/2023 OLANZapine (ZyPREXA) 5 mg tablet TAKE 1 TAB AT BEDTIME DAILY DAYS 1-4 POST CHEMOTHERAPY. DO NOT TAKE WITH LORAZEPAM. 24 tablet 1 04/22/2023 09/26/2023 ondansetron ODT (ZOFRAN-ODT) 8 mg disintegrating tablet every 8 (eight) hours as needed for nausea. See attached for detailed directions. 0 12/03/2022 09/26/2023 prochlorperazine (COMPAZINE) 10 mg tablet Take 10 mg by mouth every 8 (eight) hours as needed for nausea. 0 07/02/2021 09/26/2023 traMADoL (ULTRAM) 50 mg tablet TAKE 1 TABLET EVERY 4 (FOUR) HOURS NEEDED FOR PAIN FOR UP TO 3 DAYS INDICATIONS: ACUTE PAIN. 0 02/27/2022 10/01/2023 documented as of this encounter Plan of Treatment Upcoming Encounters Date Type Department Care Team (Late st Contact Info) Description 12/23/2023 8:30 AM PRODUCT STRATEGY DIRECTOR Clinical Communication Virtual Review in [place], [place] 200 [place] [address] 12/24/2023 10:30 AM PRODUCT STRATEGY DIRECTOR Appointment Department of Radiology, [facility], in [address] [phone] Noelle Reyes P.A.-C., P.A. [address] [place] [phone] 12/24/2023 11:00 AM PRODUCT STRATEGY DIRECTOR Lab Department of Infusion Therapy in [address] [phone] Noelle Reyes P.A.-C., P.A. [address] [place] [phone] 12/24/2023 2:15 PM PRODUCT STRATEGY DIRECTOR Office Visit Department of Palliative Care in [address] [phone] Aylin Smith APRN, C.N.P., M.S.N. [address] [place] [phone] 12/24/2023 4:10 PM PRODUCT STRATEGY DIRECTOR Office Visit Department of Oncology in [address] [phone] Ned Alegria M.D. [address] [place] [phone] Scheduled Orders Name Type Priority Associated Diagnoses Orde r Schedule Glucose, POCT Point of Care Testing-Docked Device Routine Routine lab collecti on (next collection) for 1 Occurrences starting 08/20/2023 until 08/20/2023 documented as of this encounter Goals Goal Patient Goal Type Associated Problems Recent Progress Patient-Stated? Author Your pain? Symptom Management 9(11/20/2022 2:41 PM PRODUCT STRATEGY DIRECTOR) No Fee-Girma Bush RRancho., O.C.N. Note: 05/24/2021: Pain algorithm completed. [facility] 05/24/2021: Followup 06/07 via portal per patient [...] Procedure Name Priority Date/Time Associated Diagnosis Comments SURGICAL PATHOLOGY Routine 08/20/2023 8: 05 AM CDT UPPER GI ENDOSCOPY Routine 08/20/2023 7: 44 AM CDT Malignant Neoplasm Of Rectum (HCC) EGD (ESOPHAGEALGASTRODU ODENOSCOPY) Routine 08/20/2023 7:44 AM CDT Malignant Neoplasm Of Rectum (HCC) documented in this encounter Results * Surgical Pathology (08/20/2023 8:05 AM CDT) 08/21/2023 1:02 PM CDT DTL Report electronically signed by Yassine Delgado M.D. I verify that I have examined all relevant slides/material s for the specimen(s) and rendered or confirmed the diagnosis. 08/21/2023 1:02 PM CDT DTL Gross Description Received in formalin labeled with patient's name, medical record number, and stomach- antrum, body of stomach, incisura are five [id number] d irregular soft tissues, ranging from 0.2-0.7 cm in greatest dimension. The specimens are submitted en toto in cassette A1.Grossed by [facility]. 08/21/2023 1:02 PM CDT DTL Interpretation FINAL DIAGNOSIS A. ??Stomach, antrum, body, incisura, endoscopic biopsy: Antral and fundic mucosa without diagnostic abnormality. No Helicobacter pylori. 08/21/2023 1:02 PM CDT DTL Biopsy (Stomach) 08/20/2023 8:05 AM CDT Miguel A Moctezuma M.D. LAB SURG PATH ORDER [facility] [address] [place] [address], [facility] DTL [address] [place] [address] * Upper GI Endoscopy (08/20/2023 7:44 AM CDT) 08/20/2023 7:44 AM CDT Impressions [facility] - 08/20/2023 8:29 AM CDT Post-op Diagnoses: ? - Normal esophagus. ? - Erythematous mucosa in the antrum. Biopsied. ? - No gross lesions in the entire examined duodenum. ? - No overt source of abdominal pain identified. Narrative [facility] - 08/20/2023 8:29 AM CDT Gonda 2 GI Patient Name: Luis Tabares Date of : 1980 Age: 43 Gender: Male Procedure Date: 08/20/2023 Procedure: ? Upper GI endoscopy Providers: ? Miguel A Moctezuma MD Referring Provider: ?Ned Alegria Pre-op Diagnoses: ?Epigastric abdominal pain, Abdominal pain in the ? right upper quadrant Recommendation: ? - Await pathology results. ? - Return to referring physician as previously scheduled. Findings: ? The examined esophagus was normal. ? Patchy moderately erythematous mucosa without bleeding was found in the ? gastric antrum. Biopsies were taken from the antrum, body and incisura ? with a cold forceps for Helicobacter pylori testing. ? No gross lesions were noted in the entire examined duodenum. Procedural Details: ? The patient was seen, evaluated, history reviewed, airway and heart-lung ? exams were performed by licensed provider and were satisfactory for ? planned level of sedation care. The risks, benefits and alternatives for ? the procedure and sedation were discussed and informed consent was ? obtained. A procedural pause was conducted in the presence of assisting ? personnel to verify the correct patient identity and procedure to be ? performed. Throughout the procedure, the patient's blood pressure, ? pulse, and oxygen saturations were monitored continuously. The ? Gastroscope was introduced through the mouth, and advanced to the third ? part of duodenum. The upper GI endoscopy was accomplished without ? difficulty. The patient tolerated the procedure well. Complications: ? No immediate complications. Estimated Blood Loss: ?Estimated blood loss was minimal. Attending Participation: I personally performed the entire procedure. Miguel A Moctezuma MD 08/20/2023 8:29:29 AM This report has been signed electronically. Number of Addenda: 0 Note Initiated On: 08/20/2023 7:44 AM Ned Alegria M.D. GI PROCEDURE ORDERAB LES [facility] NA documented in this encounter Visit Diagnoses Diagnosis Malignant Neoplasm Of Rectum (HCC) documented in this encounter Administered Medications Inactive Administered Medications - up to 3 most recent administrations Medication Order MAR Action Action Date Dose Rate Site heparin flush 500 Units 500 Units, intra-catheter, During hospitalization, line care, Prior to discharge, Starting on Fri08/20/23 at 0758, For 1 dose, Implanted Vascular Access Device (IVAD) Venous Non-Valved: Following saline flush prior to discharge. Given 08/20/2023 9:28 AM CDT 500 Units HYDROmorphone tablet 2 mg (DILAUDID) 2 mg, oral, Every 4 hours PRN, moderate pain or score 4-6 of 10, severe pain or score 7-10 of 10, Starting on Fri08/20/23 at 0843, PACU (only) Given 08/20/2023 8:46 AM CDT 2 mg documented in this encounter Additional Health Concerns Assessment Noted Time PHQ-9 Depression Total Score: 7 05/26/20 18 10:22 PM CDT documented as of this encounter Care Teams Mining Speculator Relationship Specialty Start Date End Date Elsewhere, Pcp PCP - General Internal Medicine 10/14/22 documented as of this encounter
--- OUTSIDE RECORDS SUMMARY | 2023-12-18 17:28 | XMS_ITS | Encounter Summary ---
Author Name Unknown Organization [facility] Address [address] [place] [address] Care Team Providers Care Tax Form Preparer Name Role Phone Elsewhere, Pcp Primary Care Provider Unavailabl e Encounter Details Date Type Department Care Team (Late st Contact Info) Description 08/20/2023 Clinical Communication Division of Gastroenterology in [place], [place] [address] [place] [phone] Margaret Baptiste M.D., M.S. [address] [place] [phone] Social History Tobacco Use Types Packs/Day Years [...] often do you attend chur ch or nondenominational services? Never 02/03/2023 Do you belong to any clubs o r organizations such as christian groups, unions, fraternal or athletic groups, or [...] Answer Date Recorded PHQ-2 Score 0 04/25/2019 [facility] of Occupat ional Health - [...] degree (e.g., MA, MS, Ana Lilia, MEd, HISTOLOGY ASSISTANT, GORDO) 02/15/2022 Sex and Gender Information Value Date Recorded Sex Assigned at Male 04/23/2018 1:23 PM CDT Gender Identity Male 04/23/2018 1:23 PM CDT Sexual Orientation Straight 04/23/2018 1: 23 PM CDT documented as of this encounter Miscellaneous Notes * Telephone Encounter - Summer Haynes R.N. - 08/20/2023 8:59 AM CDT ----- Message from Margaret Baptiste M.D., M.S. sent at 08/20/2023 8:48 AM CDT ----- Regarding: FW: egd Please let him know overall the EGD looked good. There was some mild redness in the stomach and biopsies are pending. I'll watch for those and send another note. ----- Message ----- From: Margaret Baptiste M.D., M.S. Sent: 08/20/2023 12:00 AM CDT To: Margaret Baptiste M.D., M.S. Subject: egd review documented in this encounter Plan of Treatment Upcoming Encounters Date Type Department Care Team (Late st Contact Info) Description 12/23/2023 8:30 AM LABELS MOLDER Clinical Communication Virtual Review in [address] [address] 12/24/2023 10:30 AM LABELS MOLDER Appointment Department of Radiology, [facility], in [address] [phone] Noelle Reyes P.A.-C., P.A. [address] [place] [phone] 12/24/2023 11:00 AM LABELS MOLDER Lab Department of Infusion Therapy in [address] [phone] Noelle Reyes P.Shantal.-C., P.A. [address] [place] [phone] 12/24/2023 2:15 PM LABELS MOLDER Office Visit Department of Palliative Care in [address] [phone] Aylin Smith, CINDY, C.N.P., M.S.N. [address] [place] [phone] 12/24/2023 4:10 PM LABELS MOLDER Office Visit Department of Oncology in [address] [phone] Ned Alegria M.D. [address] [place] [phone] documented as of this encounter Goals Goal Patient Goal Type Associated Problems Recent Progress Patient-Stated? Author Your pain? Symptom Management 9(11/20/2022 2:41 PM LABELS MOLDER) No Fee-Girma Bush, Elfego., O.C.N. Note: 05/24/2021: Pain algorithm completed. [place] 05/24/2021: Followup 06/07 via portal per patient [...] that his need for medication may change. [facility] 06/07/2021: Pain rating over the past [...] documented as of this encounter Care Teams Tax Form Preparer Relationship Specialty Start Date End Date Elsewhere, Pcp PCP - General Internal Medicine 10/14/22 documented as of this encounter
--- OUTSIDE RECORDS SUMMARY | 2023-12-18 17:28 | XMS_ITS | Encounter Summary ---
Author Name Unknown Organization [facility] Address [address] [place] [address] Care Team Providers Care City Carrier Name Role Phone Elsewhere, Pcp Primary [...] PET CT Skull to Thigh FDG Giorgio Fishman M.D. 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 [address] [place] [phone] [facility] Referral ID Status Reason Start Date Expiration Date Visits Re quested Visits Authorized [id number] Closed 08/27/2023 08/26/2024 1 1 Encounter Details Date Type Department Care Team (Latest Contact Info) Description 08/29/2023 10:37 AM CDT - 08/29/2023 11:59 PM CDT Hospital Encounter Department of Radiology, [facility], in [place], [place] [address] [place] [address] Giorgio Fishman M.D. [address] [place] [phone] Malignant Neoplasm Of Rectum (HCC); Secondary Malignant [...] any clubs o r organizations such as hoahaoism groups, unions, fraternal or athletic groups, or [...] Answer Date Recorded PHQ-2 Score 0 04/25/2019 [facility] of Occupat ional Health - [...] degree (e.g., MA, MS, Ana Lilia, MEd, DOUBLE NEEDLE STITCHER, GORDO) 02/15/2022 Sex and Gender Information Value [...] daily. 0 LORazepam (ATIVAN) 0.5 mg tabletIndications:Zuleyka nanlexie Neoplasm Of Rectum (HCC),Secondary Malignant Neoplasm Lymph [...] chest pain. 25 tablet 12 05/28/2018 omega 3-qma-ixo-fish oil 1,000 mg (120 mg-180 mg) capsule [...] st Contact Info) Description 12/23/2023 8:30 AM LENS BLOCK GAUGER Clinical Communication Virtual Review in [place], [place] [address] [place] [address] 12/24/2023 10:30 AM LENS BLOCK GAUGER Appointment Department of Radiology, [facility], in [place], [place] [address] [place] [address] Noelle Reyes P.A.-C., P.A. [address] [place] [phone] 12/24/2023 11:00 AM LENS BLOCK GAUGER Lab Department of Infusion Therapy in [place], [place] [address] [place] [phone] Noelle Reyes P.A.-C., P.A. [address] [place] [phone] 12/24/2023 2:15 PM LENS BLOCK GAUGER Office Visit Department of Palliative Care in [address] [phone] Aylin Smith APRN, C.NCandidoP., M.S.N. [address] [place] [phone] 12/24/2023 4:10 PM LENS BLOCK GAUGER Office Visit Department of Oncology in [address] [phone] Ned Alegria M.D. [address] [place] [phone] documented as of this encounter Goals Goal Patient Goal Type Associated Problems Recent Progress Patient-Stated? Author Your pain? Symptom Management 9(11/20/2022 2:41 PM LENS BLOCK GAUGER) Raisa Ferguson-Girma Bush, RCandidoN., O.C.N. Note: 05/24/2021: Pain algorithm completed. 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 Right thoracotomy withmultiple wedge excisions in 2018. Right posterolateral thoracotomy [...] node has an SUV max of 7.3 ([id number]), previously 5.5. New FDG avid paraesophageal lymph [...] Incidental significant findings on low-dose, noncontrast CT: [id number] with the tip in RA/SVC. Gynecomastia. Right lower lobe with resection. Pathologic [id number] rib fracture. Atrophic right maxillary sinus with opacification. Prostatectomy with coronalanastomosis. IMPRESSION: FDG avid pulmonary, eduar, hepatic and osseous metastases, which haveoverall progressed from FDG PET/CT dated 08/05/2022. They have no significant change from the mostrecent CT dated 07/30/2023 allowing for the difference in modality. Giorgio Fishman M.D. 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) documented in this encounter Administered Medications Inactive Administered Medications - up to 3 most recent administrations Medication Order MAR Action Action Date Dose Rate Site fludeoxyglucose F 18 injection HALF-WAY (FDG F-18) 4.5-16.5 millicurie, intravenous, Once, On Fri08/29/23 at 1245, For 1 dose, Imaging Protocol Orders Given 08/29/2023 12:18 PM CDT 10.11 millicuries Port heparin flush 500 Units 500 Units, intra-catheter, During hospitalization, line care, Prior to discharge, Starting on Fri08/29/23 at 1231, For 1 dose, Implanted Vascular Access Device (IVAD) Venous Non-Valved: Following saline flush prior to discharge. Given 08/29/2023 12:31 PM CDT 500 Units sodium chloride 0.9 % injection 10 mL 10 mL, intravenous, During hospitalization, line care, Prior to discharge, Starting on Fri08/29/23 at 1231, For 1 dose, Implanted Vascular Access Device (IVAD) Venous Non-Valved: Followed by heparin flush prior to discharge. Given 08/29/2023 12:31 PM CDT 10 mL documented in this encounter Additional Health Concerns Assessment Noted Time PHQ-9 Depression Total Score: 7 05/26/20 18 10:22 PM CDT documented as of this encounter Care Teams City Carrier Relationship Specialty Start Date End Date Elsewhere, Pcp PCP - General Internal Medicine 10/14/22 documented as of this encounter
--- OUTSIDE RECORDS SUMMARY | 2023-12-18 17:28 | XMS_ITS | Encounter Summary ---
Author Name Unknown Organization [facility] Address [address] [place] [address] Care Team Providers Care Outpatient Dietitian Name Role Phone Elsewhere, Pcp Primary Care Provider Unavailabl e Reason for Referral * Outpatient (Routine) - Closed Specialty Diagnoses / Procedures Referred By Contac t Referred To Contact Diagnoses Pain Epigastric Procedures US Gallbladder and or Biliary Ducts Margaret Baptiste M.D., M.S. [address] [place] [phone] [facility] Referral ID Status Reason Start Date Expiration Date Visits Re quested Visits Authorized [id number] Closed 08/20/2023 08/19/2024 1 1 Reason for Visit * Outpatient (Routine) - Closed Specialty Diagnoses / Procedures Referred By Contac t Referred To Contact Diagnoses Pain Epigastric Procedures US Gallbladder and or Biliary Ducts Margaret Baptiste M.D., M.S. [address] [place] [phone] [facility] Referral ID Status Reason Start Date Expiration Date Visits Re quested Visits Authorized [id number] Closed 08/20/2023 08/19/2024 1 1 Encounter Details Date Type Department Care Team (Late st Contact Info) Description 08/25/2023 10:13 AM CDT - 08/25/2023 11:59 PM CDT Hospital Encounter Department of Radiology, [facility], in [place], [place] [address] [place] [phone] Margaret Baptiste M.D., M.S. [address] [place] [phone] Pain Epigastric Discharge Disposition: Home or Self Care Social [...] week 02/03/2023 How often do you attend [facility] or zoroastrianism services? Never 02/03/2023 Do you belong to any clubs o r organizations such as sikhism groups, unions, fraternal or athletic groups, or [...] 04/25/2019 [facility] Occupat ional [facility] - Occupational Stress Questionnaire Answer [...] degree (e.g., MA, MS, Ana Lilia, MEd, ANAESTHETIC TECHNICIAN, GORDO) 02/15/2022 Sex and Gender Information [...] chest pain. 25 tablet 12 05/28/2018 omega 2-fxu-doi-fish oil 1,000 mg (120 mg-180 mg) capsule [...] 05/23/2023 10/01/2023 gabapentin (NEURONTIN) 300 mg capsuleIndications:Rosie gnant Neoplasm Of Rectum (HCC),Pain Neuropathic TAKE 1 [...] 12/03/2022 09/26/2023 pantoprazole (PROTONIX) 40 mg EC tabletIndications:Malig nant Neoplasm Of Rectum (HCC) Take 1 tablet [...] st Contact Info) Description 12/23/2023 8:30 AM TRIM STENCIL MAKER Clinical Communication Virtual Review in [place], [place] 200 [place] [address] 12/24/2023 10:30 AM TRIM STENCIL MAKER Appointment Department of Radiology, [facility], in [place], [place] [address] [place] [phone] Noelle Reyes P.A.-C., P.A. [address] [place] [phone] 12/24/2023 11:00 AM TRIM STENCIL MAKER Lab Department of Infusion Therapy in [place], [place] [address] [place] [phone] Noelle Reyes P.A.-C., P.A. [address] [place] [phone] 12/24/2023 2:15 PM TRIM STENCIL MAKER Office Visit Department of Palliative Care in [place], [place] [address] [place] [phone] Aylin Smith, CINDY, C.N.P., M.S.N. [address] [place] [phone] 12/24/2023 4:10 PM TRIM STENCIL MAKER Office Visit Department of Oncology in [place], [place] [address] [place] [phone] Ned Alegria M.D. [address] [place] [phone] documented as of this encounter Goals Goal Patient Goal Type Associated Problems Recent Progress Patient-Stated? Author Your pain? Symptom Management 9(11/20/2022 2:41 PM TRIM STENCIL MAKER) No Fee-Girma Bush, R.N., O.C.N. Note: 05/24/2021: Pain algorithm completed. [facility] [place] 05/24/2021: Followup 06/07 via [...] Procedure Name Priority Date/Time Associated Diagnosis Comments US GALLBLADDER AND OR BILIARY DUCTS RAD - Routine (most inpatients and all outpatients) 08/25/2023 11:14 AM CDT Pain Epigastric documented in this encounter Results * US Gallbladder and [...] bile duct dilatation. Margaret Baptiste M.D., M.S. IM US PRO CEDURES documented in this encounter Visit Diagnoses Diagnosis Pain Epigastric documented in this encounter Additional Health Concerns Assessment Noted Time PHQ-9 Depression Total Score: 7 05/26/20 18 10:22 PM CDT documented as of this encounter Care Teams Outpatient Dietitian Relationship Specialty Start Date End Date Elsewhere, Pcp PCP - General Internal Medicine 10/14/22 documented as of this encounter
--- OUTSIDE RECORDS SUMMARY | 2023-12-18 17:28 | XMS_ITS | Encounter Summary ---
Author Name Unknown Organization [facility] Address [address] [place] [address] Care Team Providers Care Glost Kiln Placer Name Role Phone Elsewhere, Pcp Primary Care Provider Unavailabl e Reason for Visit * Outpatient (Routine) - Closed Specialty Diagnoses / Procedures Referred By Halima owen Referred To Contact Pain Medicine Diagnoses Sean Clayton D.O. [address] [place] [phone] [facility] Referral ID Status Reason Start Date Expiration Date Visits Re quested Visits Authorized [id number] Closed 08/27/2023 08/26/2026 1 1 Encounter Details Date Type Department Care Team (Late st Contact Info) Description 09/03/2023 9:30 AM CDT Office Visit Division of Pain Medicine in [place], [place] [address] [place] [phone] Yassine Parekh M.D. [address] [place] [phone] Pain Low Back Unspecified (Primary Dx); Abdominal Pain; Sacroiliitis (HCC); Pain Chest Wall; Pain Neuropathic; Pain Low Back Chronic; Pain Lumbar Myofascial Social History Tobacco Use Types Packs/Day Years [...] often do you attend chur ch or voodoo services? Never 02/03/2023 Do you belong to [...] Answer Date Recorded PHQ-2 Score 0 04/25/2019 [facility] of Occupat ional Health - Occupational Stress [...] degree (e.g., MA, MS, Ana Lilia, MEd, GANG TAILER, GORDO) 02/15/2022 Sex and Gender Information Value Date Recorded Sex Assigned at Male 04/23/2018 1:23 PM CDT Gender Identity Male 04/23/2018 1:23 PM CDT Sexual Orientation Straight 04/23/2018 1: 23 PM CDT documented as of this encounter Progress Notes * Yassine Parekh M.D. - 09/03/2023 9:30 AM CDT PAIN MEDICINE CLINIC FOLLOW-UP NOTE SUBJECTIVE: Luis Tabares is a 43 y.o. male with a past medical history significant for rectal cancer (diagnosed March 2018) with metastases to his liver, lung, and abdominal lymph nodes. Patient was last seen byDr Shen 06/20/23, please see that note for full history. At last visit we ordered lumbar MRI, increased gabapentin dose to 600mg TID, and ordered paravertebral block performed 07/23/23 (minimal relief), and L SIJ injection done 07/30/23. He also ordered a celiac plexus block scheduled for later today, patient presents for pre-procedure visit and discussion of alternative options. Previous Procedures: -T5 intercostal nerve block 03/08/2022 [...] PSIS TPI : 07/30/23-- pain is improved Home Pain Medications: - Duloxetine 60mg QD - Hydromorphone 2mg PRN (taking very rarely) - Gabapentin 600mg TID OBJECTIVE PHYSICAL EXAM GENERAL: NAD, friendly, conversive HEAD: Atraumatic, normocephalic MENTAL: AAOx3, answers questions appropriately LUNGS: Unlabored respirations. CARDIAC: Regular rate and rhythm SKIN: No discoloration, no rashes, no open wounds, well healed thoracotomy scar GAIT: Non-analtic gate. MSK: RUE: 5/5 strength, sensation intact throughout, LUE: 5/5 strength, sensation intact throughout, RLE: 5/5 strength, sensation intact throughout, LLE: 5/5 strength, sensation intact throughout, Skin: No ecchymosis Neuro: Answers all questions appropriately. AOx3 LABS: IMAGING: I have personally reviewed the patient's images. MRI L Spine 07/23/23 IMPRESSION: 1. Mild abnormal signal hypointensity on T1 and T2-weighted images throughout the L1 and L2 vertebral bodies with the signal abnormality extending into the bilateral pedicles as seen on sagittal imaging. This corresponds to subtle sclerosis of the vertebral bodies seen on the prior CT of 05/06/2023. Otherwise slightly heterogeneous marrow signal without discrete marrow lesions identified. Consider gadolinium-enhanced MR imaging or technetium bone scanning for better assessment for possible metastatic involvement given patient's reported history of metastatic colorectal carcinoma. 2. Mild degenerative changes in the lumbar spine most prominent at L3-L4 where mild spinal canal stenosis and moderate bilateral neural foraminal stenosis are present. ASSESSMENT: #1 Pain Low Back Unspecified #2 Abdominal Pain #3 Sacroiliitis (HCC) #4 Pain Chest Wall #5 Pain Neuropathic #6 Pain Low Back Chronic #7 Pain Lumbar Myofascial Luis Tabares is a 43 y.o. male with PMH of metastatic rectal cancer who is presenting with chronic abdominal pain, and R chest wall pain. PLAN: - Celiac plexus risks and benefits fully discussed with the patient. He has no contraindications toproceeding with this block. I discussed potential for neurolysis in the future if relief is good but not sustained. - The patient has had numerous injections of his T5 intercostal, and T5-8 paravertebral blocks withvarying efficacy. I will reach out to Dr Garcia and Dr Shen regarding next best steps. He may benefit from PNS, but I would like to see benefit from an intercostal nerve block prior to initiating this process. Another consideration is that he may have radiation to the anterior T5 rib in the futurebut nothing planned for right now. FOLLOW-UP: As needed. Patient education: The patient was ready to learn and had no apparent learning barriers. Their learning preferences includes listening. The diagnosis and treatment plans were explained and the patient expressed understanding of the content. I personally spent a total of 25 minutes in yio-rxwy-rp-face time performing a review of the recordand/or discussion with the patient/caregiver as described above. Total time spent with patient: 20 minutes. Total time in counselin minutes. Mr Tabares' clinical history, physical examination, imaging, and treatment recommendations were discussed with Dr. Bañuelos, who agrees with the plan. Yassine Parekh MD PGY-5 Pain Medicine Fellow documented in this encounter Plan of Treatment Upcoming Encounters Date Type Department Care Team (Late st Contact Info) Description 12/23/2023 8:30 AM FIELD CROP TECHNICAL OFFICER Clinical Communication Virtual Review in [address] [phone] 12/24/2023 10:30 AM FIELD CROP TECHNICAL OFFICER Appointment Department of Radiology, [facility] in [address] [phone] Noelle Reyes P.A.-C., P.A. [address] [place] [phone] 12/24/2023 11:00 AM FIELD CROP TECHNICAL OFFICER Lab Department of Infusion Therapy in [address] [phone] Noelle Reyes P.A.-C., P.A. [address] [place] [phone] 12/24/2023 2:15 PM FIELD CROP TECHNICAL OFFICER Office Visit Department of Palliative Care in [address] [phone] Aylin Smith, CINDY, C.N.P., M.S.N. [address] [place] [phone] 12/24/2023 4:10 PM FIELD CROP TECHNICAL OFFICER Office Visit Department of Oncology in [address] [phone] Ned Alegria M.D. [address] [place] [phone] documented as of this encounter Goals Goal Patient Goal Type Associated Problems Recent Progress Patient-Stated? Author Your pain? Symptom Management 9(11/20/2022 2:41 PM FIELD CROP TECHNICAL OFFICER) No Phyllis-Girma Bush R.N., O.C.N. Note: 05/24/2021: Pain algorithm completed. [facility] 05/24/2021: Followup 06/07 via [...] of this encounter Visit Diagnoses Diagnosis Pain Low Back Unspecified- Primary Abdominal Pain Sacroiliitis (HCC) Pain Chest Wall Pain Neuropathic Pain Low Back Chronic Pain Lumbar Myofascial documented in this encounter Additional Health Concerns Assessment Noted Time PHQ-9 Depression Total Score: 7 05/26/20 18 10:22 PM CDT documented as of this encounter Care Teams Glost Kiln Placer Relationship Specialty Start Date End Date Elsewhere, Pcp PCP - General Internal Medicine 10/14/22 documented as of this encounter
--- OUTSIDE RECORDS SUMMARY | 2023-12-18 17:28 | XMS_ITS | Encounter Summary ---
Author Name Unknown Organization [facility] Address [address] [place] [address] Care Team Providers Care Waist Pleater Name Role Phone Elsewhere, Pcp Primary Care Provider Unavailabl e Encounter Details Date Type Department Care Team (Latest Contact Info) Description 08/20/2023 7:45 AM CDT Ancillary Procedure Department of Gastroenterology Social History Tobacco Use Types Packs/Day Years [...] 02/03/2023 How often do you attend [facility] or roman catholic services? Never 02/03/2023 Do you belong to any clubs o r organizations such as mormonism groups, unions, fraternal or athletic groups, or [...] Answer Date Recorded PHQ-2 Score 0 04/25/2019 [facility] Occupat ional Health - Occupational Stress [...] degree (e.g., MA, MS, Ana Lilia, MEd, SAFETY PERSON, GORDO) 02/15/2022 Sex and Gender Information Value Date Recorded Sex Assigned at Male 04/23/2018 1:23 PM CDT Gender Identity Male 04/23/2018 1:23 PM CDT Sexual Orientation Straight 04/23/2018 1: 23 PM CDT documented as of this encounter Plan of Treatment Upcoming Encounters Date Type Department Care Team (Late st Contact Info) Description 12/23/2023 8:30 AM PERFUMER Clinical Communication Virtual Review in [place], [place] 200 [place] [address] 12/24/2023 10:30 AM PERFUMER Appointment Department of Radiology, [facility], in [place], [place] [address] [place] [phone] Noelle Reyes P.A.-C., P.A. [address] [place] [phone] 12/24/2023 11:00 AM PERFUMER Lab Department of Infusion Therapy in [address] [phone] Noelle Reyes P.A.-Tristan., P.A. [address] [place] [phone] 12/24/2023 2:15 PM PERFUMER Office Visit Department of Palliative Care in [place], [place] [address] [place] [phone] Aylin Smith, CINDY, C.NCandidoP., M.S.N. [address] [place] [phone] 12/24/2023 4:10 PM PERFUMER Office Visit Department of Oncology in [place], [place] [address] [place] [phone] Ned Alegria M.D. [address] [place] [phone] documented as of this encounter Goals Goal Patient Goal Type Associated Problems Recent Progress Patient-Stated? Author Your pain? Symptom Management 9(11/20/2022 2:41 PM PERFUMER) No Phyllis-Girma Bush, RCandidoN., O.C.N. Note: 05/24/2021: Pain algorithm completed. [facility] 05/24/2021: Followup 06/07 via portal per patient [...] Procedure Name Priority Date/Time Associated Diagnosis Comments GASTROENTEROLOGY IMAGE EXAM Routine 08/20/2023 7:45 AM CDT documented in this encounter Results * Upper GI endoscopy-Gastroenterology Image Exam (08/20/2023 7:45 AM CDT) 08/20/2023 7:44 AM CDT Narrative [facility] - 08/20/2023 8:37 AM CDT This order has been created and auto-finalized [...] documented as of this encounter Care Teams Waist Pleater Relationship Specialty Start Date End Date Elsewhere, Pcp PCP - General Internal Medicine 10/14/22 documented as of this encounter
--- OUTSIDE RECORDS SUMMARY | 2023-12-18 17:28 | XMS_ITS | Encounter Summary ---
Author Name Unknown Organization [facility] Address [address] [place] [id number] Care Team Providers Care Business Operations Director Name Role Phone Elsewhere, Pcp Primary Care Provider Unavailabl e Encounter Details Date Type Department Care Team (Late st Contact Info) Description 08/20/2023 7:58 AM CDT Anesthesia Event Division of Gastroenterology in [place], [place] [address] [place] [phone] Kyler Estrada APRN, CRNA, DNAP [address] [place] [phone] Naveen Biswas M.D. [address] [place] [phone] Anesthesia Record Procedure Summary Procedure Name Responsible Anesthesiologist Anesthesia Start Time Anesthesia Stop Time EGD (ESOPHAGEALGASTRODU ODENOSCOPY) Kyler Estrada APRN, CRNA, DNAP 08/20/23 0758 08/20/23 0820 Events Date Time Event Comment 08/20/2023 0758 An Start Machine/Equipme nt Checked Infection Precautions Followed Procedure/Site Verified NPO Status Verified Supine Standard ASA Monitors Applied 0801 Turnover to Proceduralist 0803 Proc Start 0810 Proc Fin 0811 Turnover to ANE Staff 0819 an stop data 0820 An End I completed my handoff to the receiving staff during which we 1. Identified the patient 2. Identified the responsible provider 3. Reviewed the pertinent medical history 4. Discussed the surgical course 5. Reviewed intra-op anesthesia management and issues during anesthesia 6. Set expectations for post-procedure period 7. Allowed opportunity for questions and acknowledgement of understanding. Meds Name Total fentanyl injection 50 mcg/mL 50 mcg lidocaine 2% (mg) injection 60 mg ondansetron PF 4 mg/2 mL injection 4 mg propofol 10 mg/mL injection 40 mg propofol 10 mg/mL infusion 364.14 mg Lactated Ringers Free Drip 400 mL * Agents No agents on file. * Blood No blood administrations on file. Lines, Drains, and Airways Type Details Placement Removal (RETIRED- use LDA Wound) Puncture 09/27/19; 0854; No; Chest; Posterior, Right; lung localization sites 09/27/19 0854 by Sienna Turner R.N., MADELAINE Implanted Port Single Lumen 04/05/20; 1149; Permanent (tunneled, implanted); Open-ended; Right; Chest; Power injectable (card and 3 bumps); Securement dressing, Sutured; VIR/Neisen 04/05/20 1149 by Steff Moreira RCandidoNCandido (RETIRED- use LDA Wound) Puncture 02/18/22; 1214; No; Abdomen; Right, Upper, Quadrant; ablation probes x5 02/18/22 1214 by Flori Kang R.T.(R)(CT) documented in this encounter Social History Tobacco Use Types Packs/Day Years [...] often do you attend chur ch or synagogue services? Never 02/03/2023 Do you belong to [...] Answer Date Recorded PHQ-2 Score 0 [facility]2019 [facility] Answer Date [...] degree (e.g., MA, MS, Ana Lilia, MEd, PUBLIC HEALTH WORKER, [employer]ORDO) 02/15/2022 Sex and Gender Information Value Date Recorded Sex Assigned at Male 04/23/2018 1:23 PM CDT Gender Identity Male 04/23/2018 1:23 PM CDT Sexual Orientation Straight 04/23/2018 1: 23 PM CDT documented as of this encounter OR Notes * Anesthesia Postprocedure Evaluation - Kyler Estrada APRN, ROXIE, DNAP - 08/20/2023 8:19 AM CDT Patient: Luis Tabares Procedure Summary Date: 08/20/23 Room / Location: Division of Gastroenterology in [place], [place] Anesthesia Start: 0758 Anesthesia Stop: Procedure: EGD (ESOPHAGEALGASTRODUODENOSCOPY) Diagnosis: Malignant Neoplasm Of Rectum (HCC) Scheduled Providers: Miguel A Moctezuma M.D.; Kyler Estrada APRN, CRNA, DNAP; Max Delgado M.D. Responsible Provider: Kyler Estrada APRN, CRNA, DNAP Anesthesia Type: MAC ASA Status: 3 Anesthesia Type: MAC Last vitals Vitals Value Taken Time BP Temp Pulse 104 08/20/23818 Resp 16 08/20/23818 SpO2 99 % 08/20/23818 Vitals shown include unvalidated device data. Please reference Vitals flowsheet for most recent vital signs. Anesthesia Post Evaluation Patient Disposition: dismissal Cardiovascular status: hemodynamics (HR & BP) acceptable Respiratory status: patent airway with spontaneous effort Temperature: normothermic Oxygen requirements: room air Level of consciousness: awake Pain score: pain adequately controlled and/or at baseline Post Op nausea/vomiting: none Hydration status: euvolemic * Anesthesia Preprocedure Evaluation - Max Delgado M.D. - 08/20/2023 7:38 AM CDT Preprocedure Anesthesia & H&P Assessment Procedure Summary Date/Time: 08/20/23 0745 Scheduled providers: Miguel A Moctezuma M.D.; Kyler Estrada APRN, CRNA, DNAP; Max Delgado M.D. Procedure: EGD (ESOPHAGEALGASTRODUODENOSCOPY) Diagnosis: Malignant Neoplasm Of Rectum (HCC) [C20] Location: Division of Gastroenterology in [place], [place] Pertinent components of the patient's history including current problem list, medical history, surgical history, family history, social history, medications and allergies were reviewed. Present illness and pre-op diagnosis were confirmed. The planned surgery / procedure was verified with the patient / legal guardian. 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 Liver (HCC) Hematologic (+) Thrombocytopenia Drug Induced Other (+) Takedown Ileostomy Status Post (Reversal) OBJECTIVE PHYSICAL EXAMINATION Airway (HEENT) Mallampati: I TM Distance: >3 FB Neck ROM: Full Mouth Opening: >3 cm Cardiovascular Rhythm: Regular Rate: Normal Cardiovascular Assessment: cardiovascular normal Functional Capacity: >4 METS Pulmonary Pulmonary Assessment: Clear General / Constitutional Constitutional Assessment: Normal General State of Health:: healthy appearing and calm Neurological Neurologic Assessment: alert and alert and oriented x 3 Dental Dental Assessment: dentition intact ASSESSMENT / PLAN ANESTHESIA PLAN ASA: 3 Anesthesia Plan: MAC Patient seen and allergies reviewed, anesthesia plan and risks discussed directly with patient /legal guardian or through an od grinder operator. The use of blood products not discussed Approval to Proceed: approved for anesthesia documented in this encounter Plan of Treatment Upcoming Encounters Date Type Department Care Team (Late st Contact Info) Description 12/23/2023 8:30 AM CEO AND CO FOUNDER Clinical Communication Virtual Review in [place], [place] 200 [place] [address] 12/24/2023 10:30 AM CEO AND CO FOUNDER Appointment Department of Radiology, [facility] in [address] [phone] Noelle Reyes P.A.-C., P.A. [address] [place] [phone] 12/24/2023 11:00 AM CEO AND CO FOUNDER Lab Department of Infusion Therapy in [place], [place] [address] [place] [phone] Noelle Reyes, P.A.-C., P.A. [address] [place] [phone] 12/24/2023 2:15 PM CEO AND CO FOUNDER Office Visit Department of Palliative Care in [address] [phone] Aylin Smith APRN, C.N.P., M.S.N. [address] [place] [phone] 12/24/2023 4:10 PM CEO AND CO FOUNDER Office Visit Department of Oncology in [place], [place] [address] [place] [phone] Ned Alegira M.D. [address] [place] [phone] documented as of this encounter Goals Goal Patient Goal Type Associated Problems Recent Progress Patient-Stated? Author Your pain? Symptom Management 9(11/20/2022 2:41 PM CEO AND CO FOUNDER) Girma Gaspar R.N., O.C.N. Note: 05/24/2021: Pain algorithm completed. [facility] [...] Diagnoses Not on filedocumented in this encounter Administered Medications Inactive Administered Medications - up to 3 most recent administrations Medication Order MAR Action Action Date Dose Rate Site fentaNYL injection (SUBLIMAZE) intravenous, As needed, Starting on Fri08/20/23 at 0759, Anesthesia Intra-op Given 08/20/2023 7:59 AM CDT 50 mcg Lactated Ringer's intravenous, Continuous Infusion: Per Instructions PRN, Starting on Fri08/20/23 at 0758, Anesthesia Intra-op New Bag 08/20/2023 7:58 AM CDT lidocaine (PF) (cardiac) injection intravenous, As needed, Starting on Fri08/20/23 at 0759, Anesthesia Intra-op Given 08/20/2023 7:59 AM CDT 60 mg ondansetron (PF) injection (ZOFRAN) intravenous, As needed, Starting on Fri08/20/23 at 0759, Anesthesia Intra-op Given 08/20/2023 7:59 AM CDT 4 mg propofol 10 mg/mL infusion (DIPRIVAN) intravenous, Continuous Infusion: Per Instructions PRN, Starting on Fri08/20/23 at 0759, Anesthesia Intra-op New Bag 08/20/2023 7:59 AM CDT 200 mcg/kg/min 104.04 mL/hr propofoL injection (DIPRIVAN) intravenous, As needed, Starting on Fri08/20/23 at 0801, Anesthesia Intra-op Given 08/20/2023 8:01 AM CDT 40 mg documented in this encounter Additional Health Concerns Assessment Noted Time PHQ-9 Depression Total Score: 7 05/26/20 18 10:22 PM CDT documented as of this encounter Care Teams Business Operations Director Relationship Specialty Start Date End Date Elsewhere, Pcp PCP - General Internal Medicine 10/14/22 documented as of this encounter
--- OUTSIDE RECORDS SUMMARY | 2023-12-18 17:29 | XMS_ITS | Encounter Summary ---
Author Name Unknown Organization [facility] Address [address] [place] [phone] Care Team Providers Care Project Management Advisor Name Role Phone Elsewhere, Pcp Primary Care Provider Unavailabl e Reason for Visit * Outpatient (Routine) - Closed Specialty Diagnoses / Procedures Referred By Contact Referred To Contact Gastroenterology and Hepatology Diagnoses Malignant Neoplasm Of Rectum (HCC) Ned Alegria M.D. [address] [place] [phone] [facility] Referral ID Status Reason Start Date Expiration Date V isits Requested Visits Authorized [id number] Closed Specialty Services Required 07/31/2023 07/30/2024 1 1 Encounter Details Date Type Department Care Team (Latest Contact Info) Description 08/14/2023 3:20 PM CDT Comprehensive Visit Division of Gastroenterology in [place], [place] [address] [place] [phone] Margaret Baptiste M.D., M.S. 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 Never 02/03/2023 Do you belong to any clubs o r organizations such as temple groups, unions, fraternal or athletic groups, or [...] Date Recorded PHQ-2 Score 0 04/25/2019 [facility]at [facility] - Occupational Stress [...] degree (e.g., MA, MS, Ana Lilia, MEd, TRAINING AND DEVELOPMENT OFFICER, [employer]ORDO) 02/15/2022 Sex and Gender Information Value Date Recorded Sex Assigned at Male 04/23/2018 1:23 PM CDT Gender Identity Male 04/23/2018 1:23 PM CDT Sexual Orientation Straight 04/23/2018 1: 23 PM CDT documented as of this encounter Consult Notes * Margaret Baptiste M.D., M.S. - 08/14/2023 3:20 PM CDT SUBJECTIVE REFERRING PROVIDER: Ned Alegria M.D. [address] [place] [phone] CHIEF COMPLAINT / REASON FOR CONSULT Severe epigastric pain HISTORY OF PRESENT ILLNESS Luis Tabares is a 43 y.o. male who presents with 1 month history of severe epigastric pain. He reports that it comes on quickly and lasts for at least 60 minutes. On 2 occasion he has vomited from the pain. He has had imaging that shows liver metastases. He reports he is not had the pain for about 5 days. He denies having heartburn or indigestion. When the pain comes on he is used Dilaudid or Tums and those have both helped. He states that he has had a good appetite for the last 10 days. He reports that his bowel movements have not changed. He uses an enema daily to have consistent bowel movements. The following portions of the patient's history were reviewed and updated as appropriate: past medical history, medications, allergies, social history, and family history. OBJECTIVE VITAL SIGNS There were no vitals taken for this visit. PHYSICAL EXAMINATION General: No acute distress. Eyes: No icterus. Respiratory: Nonlabored breathing on room air. Abd: Nondistended. Skin: No jaundice. DIAGNOSTICS Labs / imaging: I reviewed his laboratory studies obtained on 07/30/2023 and his imaging obtained on07/30/2023. ASSESSMENT / PLAN #1 Malignant Neoplasm Of Rectum (HCC) #2 Epigastric pain #3 Secondary malignant neoplasm liver Plan of care: 1. I agree with pursuing the upper endoscopy which is currently scheduled for 08/20/2023. I will review the results of the upper endoscopy to see if a cause of his epigastric pain is identified. His pain seems to be better over the last several days. 2. I will ask Radiology to review his most recent CT scan to make sure there were no vascular abnormalities that may also lead to the type of abdominal pain that he has been having. I will contact him after I review the results stated above. I spent a total of 20 minutes [id number] with patient. PATIENT EDUCATION: Ready to learn, no apparent learning barriers were identified; learning preferences include listening. Explained diagnosis and treatment plan; patient expressed understanding of the content. documented in this encounter Plan of Treatment Upcoming Encounters Date Type Department Care Team (Late st Contact Info) Description 12/23/2023 8:30 AM HOSPITAL CLEANING SPECIALIST Clinical Communication Virtual Review in [address] [address] 12/24/2023 10:30 AM HOSPITAL CLEANING SPECIALIST Appointment Department of Radiology, [facility], in [address] [phone] Noelle Reyes P.A.-C., P.A. [address] [place] [phone] 12/24/2023 11:00 AM HOSPITAL CLEANING SPECIALIST Lab Department of Infusion Therapy in [address] [phone] Noelle Reyes, P.A.-C., P.A. [address] [place] [phone] 12/24/2023 2:15 PM HOSPITAL CLEANING SPECIALIST Office Visit Department of Palliative Care in [address] [phone] Aylin Smith APRN, C.N.P., M.S.N. [address] [place] [phone] 12/24/2023 4:10 PM HOSPITAL CLEANING SPECIALIST Office Visit Department of Oncology in [address] [phone] Ned Alegria M.D. [address] [place] [phone] documented as of this encounter Goals Goal Patient Goal Type Associated Problems Recent Progress Patient-Stated? Author Your pain? Symptom Management 9(11/20/2022 2:41 PM HOSPITAL CLEANING SPECIALIST) No Fee-Girma Bush R.N., O.C.N. Note: 05/24/2021: Pain algorithm completed. 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
--- OUTSIDE RECORDS SUMMARY | 2023-12-18 17:29 | XMS_ITS | Encounter Summary ---
Author Name Unknown Organization [facility] Address [address] [place] [address] Care Team Providers Care Backup Administrator Name Role Phone Elsewhere, Pcp Primary Care Provider Unavailabl e Encounter Details Date Type Department Care Team (Latest Contact Info) Description 07/30/2023 4:40 PM CDT Ancillary Procedure Department of Radiology in [place], [place] [address] [place] [phone] Ned Alegria M.D. 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 Never 02/03/2023 Do you belong to any clubs o r organizations such as spiritism groups, unions, fraternal or athletic groups, or [...] Date Recorded PHQ-2 Score 0 04/25/2019 [facility] of Occupat ional Health - Occupational [...] degree (e.g., MA, MS, Ana Lilia, MEd, LINING FOLDER, [employer]ORDO) 02/15/2022 Sex and Gender Information Value Date Recorded Sex Assigned at Male 04/23/2018 1:23 PM CDT Gender Identity Male 04/23/2018 1:23 PM CDT Sexual Orientation Straight 04/23/2018 1: 23 PM CDT documented as of this encounter Plan of Treatment Upcoming Encounters Date Type Department Care Team (Late st Contact Info) Description 12/23/2023 8:30 AM TOP BOTTOM ATTACHING MACHINE OPERATOR Clinical Communication Virtual Review in [place], [place] [address] [place] [address] 12/24/2023 10:30 AM TOP BOTTOM ATTACHING MACHINE OPERATOR Appointment Department of Radiology, [facility], in [place], [place] [address] [place] [phone] Noelle Reyes P.A.-C., P.A. [address] [place] [phone] 12/24/2023 11:00 AM TOP BOTTOM ATTACHING MACHINE OPERATOR Lab Department of Infusion Therapy in [place], [place] [address] [place] [phone] Noelle Reyes P.A.-C., P.A. [address] [place] [phone] 12/24/2023 2:15 PM TOP BOTTOM ATTACHING MACHINE OPERATOR Office Visit Department of Palliative Care in [place], [place] [address] [place] [phone] Aylin Smith, CINDY, C.N.P., M.S.N. [address] [place] [phone] 12/24/2023 4:10 PM TOP BOTTOM ATTACHING MACHINE OPERATOR Office Visit Department of Oncology in [place], [place] [address] [place] [phone] Ned Alegria M.D. [address] [place] [phone] documented as of this encounter Goals Goal Patient Goal Type Associated Problems Recent Progress Patient-Stated? Author Your pain? Symptom Management 9(11/20/2022 2:41 PM TOP BOTTOM ATTACHING MACHINE OPERATOR) No Fee-Girma Bush, RCandidoN., O.C.N. Note: 05/24/2021: Pain algorithm completed. [facility] [place]/24/2021: Followup 06/07 via portal per patient [...] Node Multiple Site (HCC) Secondary Malignant Neoplasm Liver (HCC) documented in this encounter Additional Health Concerns Assessment Noted Time PHQ-9 Depression Total Score: 7 05/26/20 18 10:22 PM CDT documented as of this encounter Care Teams Backup Administrator Relationship Specialty Start Date End Date Elsewhere, Pcp PCP - General Internal Medicine 10/14/22 documented as of this encounter
--- OUTSIDE RECORDS SUMMARY | 2023-12-18 17:29 | XMS_ITS | Encounter Summary ---
Author Name Unknown Organization [facility] Address [address] [place] [address] Care Team Providers Care Fat Pressroom Worker Name Role Phone Elsewhere, Pcp Primary Care Provider Unavailabl e Encounter Details Date Type Department Care Team (Late st Contact Info) Description 07/30/2023 9:10 AM CDT Lab Department of Infusion Therapy in [place], [place] [address] [place] [address] Giorgio Fishman M.D. 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 Never 02/03/2023 Do you belong to any clubs o r organizations such as baptism groups, unions, fraternal or athletic groups, or [...] Answer Date Recorded PHQ-2 Score 0 04/25/2019 [facility] - [...] degree (e.g., MA, MS, Ana Lilia, MEd, BREASTER, GORDO) 02/15/2022 Sex and Gender Information Value Date Recorded Sex Assigned at Male 04/23/2018 1:23 PM CDT Gender Identity Male 04/23/2018 1:23 PM CDT Sexual Orientation Straight 04/23/2018 1: 23 PM CDT documented as of this encounter Plan of Treatment Upcoming Encounters Date Type Department Care Team (Late st Contact Info) Description 12/23/2023 8:30 AM INSURANCE SPECIAL AGENT Clinical Communication Virtual Review in [address] [id number] 12/24/2023 10:30 AM INSURANCE SPECIAL AGENT Appointment Department of Radiology, [facility], in [place], [place] [address] [place] [phone] Noelle Reyes P.A.-C., P.A. [address] [place] [phone] 12/24/2023 11:00 AM INSURANCE SPECIAL AGENT Lab Department of Infusion Therapy in [place], [place] [address] [place] [phone] Noelle Reyes P.A.-C., P.A. [address] [place] [address] 12/24/2023 2:15 PM INSURANCE SPECIAL AGENT Office Visit Department of Palliative Care in [place], [place] [address] [place], [place] [phone] Aylin Smith, CINDY, C.N.P., M.S.N. [address] [place] [phone] 12/24/2023 4:10 PM INSURANCE SPECIAL AGENT Office Visit Department of Oncology in [place], [place] [address] [place] [phone] Ned Alegria M.D. [address] [place] [phone] documented as of this encounter Goals Goal Patient Goal Type Associated Problems Recent Progress Patient-Stated? Author Your pain? Symptom Management 9(11/20/2022 2:41 PM INSURANCE SPECIAL AGENT) No Fee-Girma Bush, RCandidoN., O.C.N. Note: 05/24/2021: Pain algorithm completed. 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) BILIRUBIN DIRECT, S/P Routine 07/30/2023 9:33 AM CDT Secondary Malignant Neoplasm Of Lung Laterality Unknown (HCC) Malignant Neoplasm Of Rectum (HCC) Secondary Malignant Neoplasm Liver (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) COMPREHENSIVE METABOLIC PANEL, S/P Routine 07/30/2023 9:33 AM CDT Secondary Malignant Neoplasm Of Lung Laterality Unknown (HCC) Malignant Neoplasm Of Rectum (HCC) Secondary Malignant Neoplasm Liver (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 ----ADDITIONAL INFORMATION---- The testing method is an immunoenzymatic assay manufactured by [employer]. and performed on the NagiI 800. ? Values obtained with different assay methods or kits may be different and cannot be used interchangeably. ? Test results cannot be interpreted as absolute evidence for the presence or absence of malignant disease. Blood (Blood, Venous) 07/30/2023 9:33 AM CDT 07/30/2023 4:42 PM CDT Giorgio Fishman M.D. LAB BLOOD ADD-ON [facility] [address] [place] [address] [facility] [address] [place] [address] * Bilirubin, Direct (07/30/2023 9:33 AM CDT) Pathologist [facility] Bilirubin, Direct, S <0.2 0.0 - 0.3 mg/dL 07/30/2023 10:23 AM CDT DTL Blood (Blood, Venous) 07/30/2023 9:33 AM CDT 07/30/2023 10:01 AM CDT Giorgio Fishman M.D. LAB BLOOD ADD-ON [facility] [address] [place] [address], [facility] DTL [facility] [address] [place] [address] * Comprehensive Metabolic Panel (07/30/2023 9:33 AM CDT) [facility] Potassium, S 4.0 3.6 - 5.2 mmol/L 07/30/2023 10:23 AM CDT DTL Sodium, S 137 135 - 145 mmol/L 07/30/2023 10:23 AM CDT DTL Chloride, S 102 98 - 107 mmol/L 07/30/2023 10:23 AM CDT DTL Bicarbonate, S 26 22 - 29 mmol/L 07/30/2023 10:23 AM CDT DTL Anion Gap 9 7 - 15 07/30/2023 10:23 AM CDT DTL BUN (Blood Urea Nitrogen), S 16 8 - 24 mg/dL 07/30/2023 10:23 AM CDT DTL Creatinine 0.87 0.74 - 1.35 mg/dL 07/30/2023 10:23 AM CDT DTL Estimated GFR (eGFR) >90 >=60 mL/min/BS A 07/30/2023 10:23 AM CDT DTL Comment: Estimated GFR calculated using the 2020 CKD_EPI creatinine equation. Calcium, Total, S 9.5 8.6 - 10.0 mg/dL 07/30/2023 10:23 AM CDT DTL Glucose, S 115 70 - 140 mg/dL 07/30/2023 10:23 AM CDT DTL Protein, Total, S 6.6 6.3 - 7.9 g/dL 07/30/2023 10:23 AM CDT DTL Albumin, S 4.8 3.5 - 5.0 g/dL 07/30/2023 10:23 AM CDT DTL Aspartate Aminotransferase (AST), S 34 8 - 48 U/L 07/30/2023 10:23 AM CDT DTL Alkaline Phosphatase, S 108 40 - 129 U/L 07/30/2023 10:23 AM CDT DTL Alanine Aminotransferase (ALT), S 52 7 - 55 U/L 07/30/2023 10:23 AM CDT DTL Bilirubin, Total, S 0.6 <=1.2 mg/dL 07/30/2023 10:23 AM CDT DTL Blood (Blood, Venous) 07/30/2023 9:33 AM CDT 07/30/2023 10:01 AM CDT Giorgio Fishman M.D. LAB BLOOD ADD-ON [facility] [address] [place] [address], [facility] [address] [place] [address] * (ABNORMAL) CBC with Differential, Blood (07/30/2023 9:33 AM CDT) Hemoglobin 15.3 13.2 - 16.6 g/dL 07/30/2023 10:30 AM CDT DTL Hematocrit 45.1 38.3 - 48.6 % 07/30/2023 10:30 AM CDT DTL Erythrocytes 4.87 4.35 - 5.65 x10(12)/L 07/30/2023 10:30 AM CDT DTL MCV 92.6 78.2 - 97.9 fL 07/30/2023 10:30 AM CDT DTL RBC Distrib Width 14.4 11.8 - 14.5 % 07/30/2023 10:30 AM CDT DTL Platelet Count 110(L) 135 - 317 x10(9)/L 07/30/2023 11:34 AM CDT DTL Comment:Results confirmed by smear, no clumping or interference seen. Leukocytes 7.9 3.4 - 9.6 x10(9)/L 07/30/2023 11:34 AM CDT DTL Neutrophils 6.84(H) 1.56 - 6.45 x10(9)/L 07/30/2023 10:30 AM CDT DHPM Lymphocytes 0.47(L) 0.95 - 3.07 x10(9)/L 07/30/2023 10:30 AM CDT DTL Monocytes 0.58 0.26 - 0.81 x10(9)/L 07/30/2023 10:30 AM CDT DTL Eosinophils <0.03 0.03 - 0.48 x10(9)/L 07/30/2023 10:30 AM CDT DTL Basophils <0.03 0.01 - 0.08 x10(9)/L 07/30/2023 10:30 AM CDT DTL Blood (Blood, Venous) 07/30/2023 9:33 AM CDT 07/30/2023 9:43 AM CDT Giorgio Fishman M.D. LAB BLOOD ADD-ON [facility] [address] [place] [address], [facility] DTL [facility] [address] [place] [address] 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 For IVAD NOT accessed or used, flush every 4 weeks after 0.9% preservative-free NaCL flush. Given 07/30/2023 9:36 AM CDT 500 Units sodium chloride 0.9 % injection 10 mL 10 mL, intra-catheter, As needed, line care, Starting on Fri07/30/23 at 0935, When IVAD Accessed and in Use: Flush prior to and following infusion, between multiple consecutive infusions, and prior to blood sampling. Given 07/30/2023 9:35 AM CDT 10 mL sodium chloride 0.9 % injection 20 mL 20 mL, intra-catheter, As needed, line care, Starting on Fri07/30/23 at 0935, When IVAD Accessed and in Use: Flush post blood transfusion or post blood sampling. Given 07/30/2023 9:35 AM CDT 20 mL documented in this encounter Additional Health Concerns Assessment Noted Time PHQ-9 Depression Total Score: 7 05/26/20 18 10:22 PM CDT documented as of this encounter Care Teams Fat Pressroom Worker Relationship Specialty Start Date End Date Elsewhere, Pcp PCP - General Internal Medicine 10/14/22 documented as of this encounter
--- OUTSIDE RECORDS SUMMARY | 2023-12-18 17:29 | XMS_ITS | Encounter Summary ---
Author Name Unknown Organization [facility] Address [address] [place] [address] Care Team Providers Care Creative Perfumer Name Role Phone Elsewhere, Pcp Primary Care Provider Unavailabl e Reason for Visit * Reason Comments Med Refill Gabapentin Encounter Details Date Type Department Care Team (Late st Contact Info) Description 07/30/2023 Refill Department of Oncology in [place], [place] [address] [place] [phone] Giorgio Fishman M.D. [address] [place] [phone] Med Refill ( Gabapentin/) Social History Tobacco Use Types Packs/Day Years [...] often do you attend chur ch or bahai services? Never 02/03/2023 Do you belong to any clubs o r organizations such as muslim groups, unions, fraternal or athletic groups, or [...] 04/25/2019 [facility] Occupat ional [facility] - Occupational [...] degree (e.g., MA, MS, Ana Lilia, MEd, EMT B, GORDO) 02/15/2022 Sex and Gender Information Value Date Recorded Sex Assigned at Male 04/23/2018 1:23 PM CDT Gender Identity Male 04/23/2018 1:23 PM CDT Sexual Orientation Straight 04/23/2018 1: 23 PM CDT documented as of this encounter Plan of Treatment Upcoming Encounters Date Type Department Care Team (Late st Contact Info) Description 12/23/2023 8:30 AM FIRER RETORT Clinical Communication Virtual Review in [place], [place] [address] [place] [address] 12/24/2023 10:30 AM FIRER RETORT Appointment Department of Radiology, [facility], in [place], [place] [address] [place] [address] Noelle Reyes P.A.-C., P.A. [address] [place] [phone] 12/24/2023 11:00 AM FIRER RETORT Lab Department of Infusion Therapy in [place], [place] [address] [place] [address] Noelle Reyes P.A.-C., P.A. [address] [place] [phone] 12/24/2023 2:15 PM FIRER RETORT Office Visit Department of Palliative Care in [place], [place] [address] [place] [phone] Aylin Smith APRN CCandidoN.P., M.S.N. [address] [place] [phone] 12/24/2023 4:10 PM FIRER RETORT Office Visit Department of Oncology in [place], [place] [address] [place] [phone] Ned Alegria M.D. [address] [place] [phone] documented as of this encounter Goals Goal Patient Goal Type Associated Problems Recent Progress Patient-Stated? Author Your pain? Symptom Management 9(11/20/2022 2:41 PM FIRER RETORT) Girma Gaspar, R.N., O.C.N. Note: 05/24/2021: Pain algorithm completed. [facility] [place]: Followup [...] Diagnoses Diagnosis Malignant Neoplasm Of Rectum (HCC) Pain Neuropathic documented in this encounter Additional Health Concerns Assessment Noted Time PHQ-9 Depression Total Score: 7 05/26/20 18 10:22 PM CDT documented as of this encounter Care Teams Creative Perfumer Relationship Specialty Start Date End Date Elsewhere, Pcp PCP - General Internal Medicine 10/14/22 documented as of this encounter
--- OUTSIDE RECORDS SUMMARY | 2023-12-18 17:29 | XMS_ITS | Encounter Summary ---
Author Name Unknown Organization [facility] Address [address] [place] [id number] Care Team Providers Care Manager Lpn Name Role Phone Elsewhere, Pcp Primary Care Provider Unavailabl e Reason for Referral * Outpatient (Routine) - Closed Specialty Diagnoses / Procedures Referred By Contac t Referred To Contact Diagnoses Sacroiliitis (HCC) Procedures [place] Sacroiliac Joint Injection Left Sean Shen D.O. [address] [place] [phone] [facility] Referral ID Status Reason Start Date Expiration Date Visits Re quested Visits Authorized [id number] Closed 07/25/2023 07/24/2024 1 1 Reason for Visit * Outpatient (Routine) - Closed Specialty Diagnoses / Procedures Referred By Contac t Referred To Contact Diagnoses Sacroiliitis (HCC) Procedures [place] Sacroiliac Joint Injection Left Sean Shen D.O. [address] [place] [address] [facility] Referral ID Status Reason Start Date Expiration Date Visits Re quested Visits Authorized [id number] Closed 07/25/2023 07/24/2024 1 1 Encounter Details Date Type Department Care Team (Latest Contact Info) Description 07/30/2023 7:03 AM CDT - 07/30/2023 12:22 PM CDT Hospital Encounter Division of Pain Medicine in [place], [place] [address] [place] [phone] Sean Shen D.O. 200 [place] [address] Sacroiliitis (HCC) Discharge Disposition: Home or Self Care [...] How often do you attend chur or druze services? Never 02/03/2023 Do you [...] Answer Date Recorded PHQ-2 Score 0 04/25/2019 [facility] - Occupational Stress Questionnaire Answer [...] place to sleep or slept in a alf (including now)? No 02/03/2023 Nutrition Answer Date [...] degree (e.g., MA, MS, Ana Lilia, MEd, RAILROAD CAR REPAIR SUPERVISOR, [employer]) 02/15/2022 Sex and Gender Information Value Date Recorded Sex Assigned at Male 04/23/2018 1:23 PM CDT Gender Identity Male 04/23/2018 1:23 PM CDT Sexual Orientation Straight 04/23/2018 1: 23 PM CDT documented as of this encounter Last Filed Vital Signs Vital Sign Reading Time Taken Comments Blood Pressure 157/117 07/30/2023 8:24 AM CDT Pulse 114 07/30/2023 8:24 AM CDT Temperature 36.5 ??C (97.7 ??F) 07/30/2023 7:38 AM CD T Respiratory Rate - - Oxygen Saturation 99% 07/30/2023 8:24 AM CDT Inhaled Oxygen Concentration - - [...] 7-10 of 10. 30 tablet 0 08/03/2020 ascorbic acid, vitamin C, (VITAMIN C) 250 mg tablet Take 250 mg by mouth daily. 0 cholecalciferol (VITAMIN D3) 5,000 Unit capsule Take 5,000 Units by mouth daily. 0 cyanocobalamin (VITAMIN B12) 1,000 mcg tablet Take 1,000 mcg by mouth daily. 0 docosahexaenoic acid/epa (FISH OIL ORAL) Take 2 tablets by mouth daily. 0 LACTOBACILLUS ACIDOPHILUS ORAL Take 1 capsule by [...] Take 1 tablet by mouth daily. 0 TURMERIC ORAL Take 1 tablet by mouth every morning. 0 albuterol 90 mcg/actuation inhaler INHALE 1-2 PUFFS BY MOUTH EVERY 4 HOURS IF NEEDED FOR SHORTNESS OF BREATH OR WHEEZING (COUGH). 0 12/10/2022 amitriptyline 2%-ketamine 5%-lidocaine 5% in lipoderm Apply topically 3 (three) times a day. Apply to skin over right upper quadrant abdomen three times daily, as needed. 30 g 3 03/07/2022 benzonatate (TESSALON PERLES) 100 mg capsule 100 mg every 4 (four) hours as needed. 0 12/05/2022 erythromycin (ROMYCIN) 5 mg/gram (0.5 %) ophthalmic ointment APPLY 1 STRIP TO RIGHT EYE FOUR TIMES DAILY. 0 01/08/2023 fluticasone propionate (FLONASE) 50 mcg/actuation nasal spray INHALE 2 SPRAYS TO BOTH NOSTRILS ONCE DAILY 0 12/10/2022 ibuprofen (ADVIL,MOTRIN) 200 mg tablet Take 4 tablets (800 mg total) by mouth every 6 (six) hours as needed for pain. 0 08/24/2018 naloxone (Narcan) 4 mg/actuation nasal spray Administer 1 spray (4 mg total) into one nostril every 2 (two) minutes as needed (overdose). 1 each 0 06/12/2021 nitroglycerin (NITROSTAT) 0.[address] 1 tablet (0.4 mg total) under the tongue every 5 (five) minutes as needed for chest pain. 25 tablet 12 05/28/2018 omega 5-ikb-kty-fish oil 1,000 mg (120 mg-180 mg) capsule Take 2 capsules by mouth. 0 05/16/2022 potassium chloride (K-TAB) 20 mEq CR tablet Take 20 mEq by mouth 2 (two) times a day. 0 06/09/2023 amLODIPine (NORVASC) 5 mg tablet Take 5 mg by mouth every morning. 0 12/28/2021 08/25/2023 DULoxetine (CYMBALTA) [address] capsule Take 1 capsule (60 mg total) by mouth daily. 90 capsule 3 05/23/2023 10/01/2023 HYDROmorphone (DILAUDID) 2 mg tabletIndications:Acute Pain [...] as of this encounter Procedure Notes * Aisha Palomares M.D. - 07/30/2023 8:00 AM CDTAssociated Order(s): [place] Sacroiliac Joint Injection Left Pre-Procedure Diagnose(s): Sacroiliitis (HCC) Post-Procedure Diagnose(s): Sacroiliitis (HCC) [place] Sacroiliac Joint Injection Left Performed by: Aisha Palomares M.D. Authorized by: Sean Shen D.O. Care team members present 1. Nilesh Caicedo M.D. 2. Eve Arrington, L.P.N. PROCEDURE SUMMARY Indications: Sacroiliac Joint Pain Pre-procedural pain: 8/10 Post-procedural pain: 0/10 Site: sacral Sacral: sacroiliac joint Sacroiliac joint: left and PSIS trigger point injection PSIS trigger point injection: left PSIS total volume injected: 5 ml PSIS total steroid injected: 1.5 mg Needle or RF cannula: Spinal Needle size: 22 G Needle length: 3.5 in Flow: not applicable Patient position: prone IMAGING Fluoroscopic image guidance used to localize target, identify at risk structures, and dynamically used to direct therapy to the target. Image(s) acquired and saved. INJECTED MEDICATIONS The injected medication(s) listed was divided equally between the identified injection location(s) Total volume of injectate (mL): 3 Total steroid in injectate (mg): 3 7.25 mL ROPivacaine (PF) 5 mg/mL (0.5 %) (2.5 ml for sacroiliac joint injection and 4.75 ml for PSIS TPI) 4.5 mg betamethasone acetate & sodium phosphate 6 mg/mL (3 mg for sacroiliac joint injection and 1.5 mg for PSIS TPI) 1 mL iohexoL 300 mg iodine/mL PROCEDURE DETAILS Sacroiliac joint - sacral: Using fluoroscopy, the inferior portion of the sacroiliac joint(s) was identified and marked on the skin. Using fluoroscopic guidance, a spinal needle was advanced into thejoint. Proper needle positioning was confirmed using multiple fluoroscopic views. After negative aspiration, contrast was injected, showing intraarticular spread of contrast without any evidence of intravascular uptake. A injectate was injected slowly and incrementally into the aforementioned joint(s). Following each injection, the needle was withdrawn slightly and flushed with lidocaine as it was withdrawn from the skin. The patient tolerated the procedure well and there were no apparent complications. After appropriate observation, the patient was dismissed in good condition under their ownpower. PSIS trigger point injection - sacral: The needle was advanced into the aforementioned PSIS region(s). After negative aspiration a the solution was injected. Following the injection the needle was removed, and pressure was applied to the injection site. There were no apparent complications. CONSENT Consent obtained: written (Risks, benefits and [...] st Contact Info) Description 12/23/2023 8:30 AM REBAR FABRICATOR Clinical Communication Virtual Review in [place], [place] 200 [place] [address] 12/24/2023 10:30 AM REBAR FABRICATOR Appointment Department of Radiology, [facility] in [address] [phone] Noelle Reyes P.A.-C., P.A. [address] [place] [phone] 12/24/2023 11:00 AM REBAR FABRICATOR Lab Department of Infusion Therapy in [place], [place] [address] [place] [phone] Noelle Reyes, P.A.-C., P.A. [address] [place] [address] 12/24/2023 2:15 PM REBAR FABRICATOR Office Visit Department of Palliative Care in [address] [phone] Aylin Smith APRN, C.N.P., M.S.N. [address] [place] [address] 12/24/2023 4:10 PM REBAR FABRICATOR Office Visit Department of Oncology in [place], [place] [address] [place] [address] Ned Alegria M.D. [address] [place] [address] documented as of this encounter Goals Goal Patient Goal Type Associated Problems Recent Progress Patient-Stated? Author Your pain? Symptom Management 9(11/20/2022 2:41 PM REBAR FABRICATOR) Girma Gaspar R.N., O.C.N. Note: 05/24/2021: Pain algorithm completed. MCCURTAIN [...] Name Priority Date/Time Associated Diagnosis Comments FL SACROILIAC JOINT INJECTION LEFT RAD - Routine (most inpatients and all outpatients) 07/30/2023 8:22 AM CDT Sacroiliitis (HCC) documented in this encounter Results * FL SACROILIAC JOINT INJECTION LEFT (07/30/2023 8:22 AM CDT) Narrative Aisha Palomares M.D. - 07/30/2023 8:00 AM CDT Aisha Palomares M.D. ? 07/30/2023 12:19 PM [place] Sacroiliac Joint Injection Left Performed by: Aisha Palomares M.D. Authorized by: Saen Shen D.O. ?? Care team members present 1. Nilesh Caicedo M.D. 2. Eve Arrington L.P.N. PROCEDURE SUMMARY Indications: Sacroiliac Joint Pain Pre-procedural pain: 8/10 Post-procedural pain: 0/10 Site: sacral Sacral: sacroiliac joint Sacroiliac joint: left and PSIS trigger point injection PSIS trigger point injection: left PSIS total volume injected: 5 ml PSIS total steroid injected: 1.5 mg Needle or RF cannula: Spinal Needle size: 22 G Needle length: 3.5 in Flow: not applicable Patient position: prone IMAGING Fluoroscopic image guidance used to localize target, identify at risk structures, and dynamically used to direct therapy to the target. Image(s) acquired and saved. INJECTED MEDICATIONS The injected medication(s) listed was divided equally between the identified injection location(s) Total volume of injectate (mL): 3 Total steroid in injectate (mg): 3 7.25 mL ROPivacaine (PF) 5 mg/mL (0.5 %) (2.5 ml for sacroiliac joint injection and 4.75 ml for PSIS TPI) 4.5 mg betamethasone acetate & sodium phosphate 6 mg/mL (3 mg for sacroiliac joint injection and 1.5 mg for PSIS TPI) 1 mL iohexoL 300 mg iodine/mL PROCEDURE DETAILS ?? Sacroiliac joint - sacral: Using fluoroscopy, the inferior portion of the sacroiliac joint(s) was identified and marked on the skin. Using fluoroscopic guidance, a spinal needle was advanced into the joint. Proper needle positioning was confirmed using multiple fluoroscopic views. After negative aspiration, contrast was injected, showing intraarticular spread of contrast without any evidence of intravascular uptake. A injectate was injected slowly and incrementally into the aforementioned joint(s). Following each injection, the needle was withdrawn slightly and flushed with lidocaine as it was withdrawn from the skin. ??The patient tolerated the procedure well and there were no apparent complications. After appropriate observation, the patient was dismissed in good condition under their own power. ?? PSIS trigger point injection - sacral: The needle was advanced into the aforementioned PSIS region(s). ??After negative aspiration a the solution was injected. Following the injection the needle was removed, and pressure was applied to the injection site. There were no apparent complications. ?? CONSENT Consent obtained: written (Risks, benefits [...] Estimated blood loss: 0 Implants: 0 Sean SOMMERS FLUOROSCOPY PROC EDURES documented in this encounter Visit Diagnoses Diagnosis Sacroiliitis (HCC) documented in this encounter Administered Medications Inactive Administered Medications - up to 3 most recent administrations Medication Order MAR Action Action Date Dose Rate Site betamethasone acetate & sodium phosphate injection 4.5 mg (CELESTONE SOLUSPAN) 4.5 mg, injection, One-Time Injection, Starting on Fri07/30/23 at 0800, For 1 dose Given 07/30/2023 8:00 AM CDT 4.5 mg iohexoL 300 mg iodine/mL solution 1 mL (OMNIPAQUE) 1 mL, injection, One-Time Injection, Starting on Fri07/30/23 at 0800, For 1 dose Given 07/30/2023 8:00 AM CDT 1 mL ROPivacaine (PF) 5 mg/mL (0.5 %) injection 7.25 mL (NAROPIN) 7.25 mL, injection, One-Time Injection, Starting on Fri07/30/23 at 0800, For 1 dose Given 07/30/2023 8:00 AM CDT 7.25 mL documented in this encounter Additional Health Concerns Assessment Noted Time PHQ-9 Depression Total Score: 7 05/26/20 18 10:22 PM CDT documented as of this encounter Care Teams Manager Lpn Relationship Specialty Start Date End Date Elsewhere, Pcp PCP - General Internal Medicine 10/14/22 documented as of this encounter
--- OUTSIDE RECORDS SUMMARY | 2023-12-18 17:29 | XMS_ITS | Encounter Summary ---
Author Name Unknown Organization [facility] Address [address] [place] [address] Care Team Providers Care Background Investigator Name Role Phone Elsewhere, Pcp Primary Care Provider Unavailabl e Encounter Details Date Type Department Care Team (Latest Contact Info) Description 07/30/2023 4:35 PM CDT Ancillary Procedure Department of Radiology in [place], [place] [address] [place] [address] Ned Alegria M.D. [address] [place] [address] Malignant Neoplasm Of Rectum (HCC); Secondary Malignant [...] often do you attend chur ch or confucianism services? Never 02/03/2023 Do you belong to any clubs o r organizations such as islam groups, unions, fraternal or athletic groups, or [...] Answer Date Recorded PHQ-2 Score 0 04/25/2019 [facility] - [...] degree (e.g., MA, MS, Ana Lilia, MEd, CASINO MANAGER, GORDO) 02/15/2022 Sex and Gender Information Value Date Recorded Sex Assigned at Male 04/23/2018 1:23 PM CDT Gender Identity Male 04/23/2018 1:23 PM CDT Sexual Orientation Straight 04/23/2018 1: 23 PM CDT documented as of this encounter Plan of Treatment Upcoming Encounters Date Type Department Care Team (Late st Contact Info) Description 12/23/2023 8:30 AM CAMP BOSS Clinical Communication Virtual Review in [place], [place] [address] [place] [address] 12/24/2023 10:30 AM CAMP BOSS Appointment Department of Radiology, [facility], in [place], [place] [address] [place] [address] Noelle Reyes P.A.-C., P.A. [address] [place] [address] 12/24/2023 11:00 AM CAMP BOSS Lab Department of Infusion Therapy in [place], [place] [address] [place] [address] Noelle Reyes P.A.-C., P.A. [address] [place] [address] 12/24/2023 2:15 PM CAMP BOSS Office Visit Department of Palliative Care in [place], [place] [address] [place] [phone] Aylin Smith, CINDY, C.N.P., M.S.N. [address] [place] [phone] 12/24/2023 4:10 PM CAMP BOSS Office Visit Department of Oncology in [place], [place] [address] [place] [phone] Ned Alegria M.D. [address] [place] [phone] documented as of this encounter Goals Goal Patient Goal Type Associated Problems Recent Progress Patient-Stated? Author Your pain? Symptom Management 9(11/20/2022 2:41 PM CAMP BOSS) No Fee-Girma Bush, RCandidoN., O.C.N. Note: 05/24/2021: Pain algorithm completed. [facility] 05/24/2021: Followup 06/07 via portal per patient [...] documented as of this encounter Care Teams Background Investigator Relationship Specialty Start Date End Date Elsewhere, Pcp PCP - General Internal Medicine 10/14/22 documented as of this encounter
--- OUTSIDE RECORDS SUMMARY | 2023-12-18 17:29 | XMS_ITS | Encounter Summary ---
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 [address] [place] [address] [facility] Referral ID Status Reason Start Date Expiration Date Visits Re quested Visits Authorized [id number] Closed 06/20/2023 06/19/2024 1 1 Reason for Visit * Outpatient (Routine) - Closed Specialty Diagnoses / Procedures Referred By Contac t Referred To Contact Diagnoses Pain Chest Wall Procedures FL Thoracic Paravertebral Block Injection Right [place] PARAVERTEB BLOCK THOR SNGL WY PARAVERTEB BLOCK THOR 2ND & ADD Sean Shen D.O. [address] [place] [address] [facility] Referral ID Status Reason Start Date Expiration Date Visits Re quested Visits Authorized [id number] Closed 06/20/2023 06/19/2024 1 1 Encounter Details Date Type Department Care Team (Latest Contact Info) Description 07/23/2023 2:24 PM CDT - 07/23/2023 11:59 PM CDT Hospital Encounter Division of Pain Medicine in [place], [place] [address] [place] [address] Sean Shen D.O. [address] [place] [address] Pain Chest Wall Discharge Disposition: Home or Self Care Social [...] often do you attend chur ch or holiness services? Never 02/03/2023 Do you belong to any clubs o r organizations such as religion groups, unions, fraternal or athletic groups, or [...] Answer Date Recorded PHQ-2 Score 0 04/25/2019 [facility] [place] [facility] - Occupational Stress [...] degree (e.g., MA, MS, Ana Lilia, MEd, MORTGAGE PROTECTION SPECIALIST, GORDO) 02/15/2022 Sex and Gender Information Value Date Recorded Sex Assigned at Male 04/23/2018 1:23 PM CDT Gender Identity Male 04/23/2018 1:23 PM CDT Sexual Orientation Straight 04/23/2018 1: 23 PM CDT documented as of this encounter Last Filed Vital Signs Vital Sign Reading Time Taken Comments Blood Pressure 158/110 07/23/2023 3:03 PM CDT Pulse 107 07/23/2023 3:03 PM CDT Temperature 36.5 ??C (97.7 ??F) 07/23/2023 2:31 PM CD T Respiratory Rate - - Oxygen Saturation 98% 07/23/2023 3:03 PM CDT Inhaled Oxygen Concentration - - [...] chest pain. 25 tablet 12 05/28/2018 omega 2-avm-lgu-fish oil 1,000 mg (120 mg-180 mg) capsule [...] THREE TIMES A DAY 90 capsule 3 04/07/2023 07/30/2023 HYDROmorphone (DILAUDID) 2 mg tabletIndications:Acute Pain Take [...] as of this encounter Procedure Notes * Anders Weston M.D. - 07/23/2023 3:00 PM CDTAssociated Order(s): FL Thoracic Paravertebral Block Injection Right Pre-Procedure Diagnose(s): Pain Chest Wall Post-Procedure Diagnose(s): Pain Chest Wall FL Thoracic Paravertebral Block Injection Right Performed by: Anders Weston M.D. Authorized by: Sean Shen D.O. Care team members present 1. Sadie Guerrier L.P.N. PROCEDURE SUMMARY Indications: Intractable pain Pre-procedural pain: 6/10 Post-procedural pain: 6/10 Site: thoracic Thoracic: paravertebral nerve block Paravertebral nerve block: Right T5-T6, Right T7-T8 and Right T9-T10 Needle or RF cannula: Spinal Needle size: 22 G Needle length: 2.5 in Patient position: prone IMAGING Fluoroscopic image guidance used to localize target, identify at risk structures, and dynamically used to direct therapy to the target. Image(s) acquired and saved. INJECTED MEDICATIONS The injected medication(s) listed was divided equally between the identified injection location(s) Total volume of injectate (mL): 15 Total steroid in injectate (mg): 15 7.5 mL BUPivacaine 0.5 % (5 mg/mL) 6 mL lidocaine 20 mg/mL 15 mg dexAMETHasone 10 mg/mL 1 mL iohexoL 300 mg iodine/mL PROCEDURE DETAILS Paravertebral nerve block - thoracic: After discussing the risks, benefits, and alternatives of theprocedure, the patient expressed understanding, and wished to proceed. The patient was brought to the fluoroscopy suite and placed in a prone position. Procedural pause was conducted to verify correct patient identity, correct procedure to be performed, and its applicable correct side and site, and correct patient position. Under imaging the paravertebral space was identified at the appropriate level(s). The spinal needle was introduced under intermittent fluoroscopy into each paravertebral space just inferior and anterior to the transverse process at the above described levels. Appropriate needle placement was confirmed on multiple fluoroscopic views and care was taken to be posterior to the pleura at this level. After negative aspiration, Omnipaque was injected and showed spread along the paravertebral space without signs of intravascular, intrathecal, intradiscal, or intramuscular spread. The solution was then injected incrementally with serial aspirations. The needle was then withdrawn slightly and flushed with lidocaine as it was completely withdrawn from the skin. The patient tolerated the procedure well. ADDITIONAL PROCEDURE COMMENTS Tolerated well. No complications. CONSENT Consent obtained: written (Risks, benefits [...] st Contact Info) Description 12/23/2023 8:30 AM NET SOLUTIONS ARCHITECT Clinical Communication Virtual Review in [place], [place] [address] [place] [address] 12/24/2023 10:30 AM NET SOLUTIONS ARCHITECT Appointment Department of Radiology, [facility], in [address] [address] Noelle Reyes P.A.-C., P.A. [address] [place] [phone] 12/24/2023 11:00 AM NET SOLUTIONS ARCHITECT Lab Department of Infusion Therapy in [address] [address] Noelle Reyes, P.A.-C., P.A. [address] [place] [address] 12/24/2023 2:15 PM NET SOLUTIONS ARCHITECT Office Visit Department of Palliative Care in [address] [address] Aylin Smith APRN, C.N.P., M.S.N. [address] [place] [address] 12/24/2023 4:10 PM NET SOLUTIONS ARCHITECT Office Visit Department of Oncology in [place], [place] [address] [place] [address] Ned Alegria M.D. [address] [place] [address] documented as of this encounter Goals Goal Patient Goal Type Associated Problems Recent Progress Patient-Stated? Author Your pain? Symptom Management 9(11/20/2022 2:41 PM NET SOLUTIONS ARCHITECT) Girma Gaspar R.N., O.C.N. Note: 05/24/2021: Pain algorithm completed. [facility] [place]: Followup 06/07 via portal per patient [...] Name Priority Date/Time Associated Diagnosis Comments FL THORACIC SPINE PARAVERTEBRAL BLOCK INJECTION Routine 07/23/2023 3:02 PM CDT Pain Chest Wall documented in this encounter Results * FL Thoracic Paravertebral Block Injection Right (07/23/2023 3:02 PM CDT) Narrative Anders Weston M.D. - 07/23/2023 3:00 PM CDT Anders Weston M.D. ? 07/23/2023 ??3:05 PM FL Thoracic Paravertebral Block Injection Right Performed by: Anders Weston M.D. Authorized by: Sean Shen D.OCandido ?? Care team members present 1. Sadie Guerrier, LCandidoPCandidoNCandido PROCEDURE SUMMARY Indications: Intractable pain Pre-procedural pain: 6/10 Post-procedural pain: 6/10 Site: thoracic Thoracic: paravertebral nerve block Paravertebral nerve block: Right T5-T6, Right T7-T8 and Right T9-T10 Needle or RF cannula: Spinal Needle size: 22 G Needle length: 2.5 in Patient position: prone IMAGING Fluoroscopic image guidance used to localize target, identify at risk structures, and dynamically used to direct therapy to the target. Image(s) acquired and saved. INJECTED MEDICATIONS The injected medication(s) listed was divided equally between the identified injection location(s) Total volume of injectate (mL): 15 Total steroid in injectate (mg): 15 ?? 7.5 mL BUPivacaine 0.5 % (5 mg/mL) 6 mL lidocaine 20 mg/mL 15 mg dexAMETHasone 10 mg/mL 1 mL iohexoL 300 mg iodine/mL PROCEDURE DETAILS ?? Paravertebral nerve block - thoracic: After discussing the risks, benefits, and alternatives of the procedure, the patient expressed understanding, and wished to proceed. ??The patient was brought to the fluoroscopy suite and placed in a prone position. ??Procedural pause was conducted to verify correct patient identity, correct procedure to be performed, and its applicable correct side and site, and correct patient position. Under imaging the paravertebral space was identified at the appropriate level(s). The spinal needle was introduced under intermittent fluoroscopy into each paravertebral space just inferior and anterior to the transverse process at the above described levels. Appropriate needle placement was confirmed on multiple fluoroscopic views and care was taken to be posterior to the pleura at this level. After negative aspiration, Omnipaque was injected and showed spread along the paravertebral space without signs of intravascular, intrathecal, intradiscal, or intramuscular spread. ?? The solution was then injected incrementally with serial aspirations. The needle was then withdrawn slightly and flushed with lidocaine as it was completely withdrawn from the skin. The patient tolerated the procedure well. ?? ADDITIONAL PROCEDURE COMMENTS Tolerated well. No complications. CONSENT Consent obtained: written (Risks, benefits [...] encounter Visit Diagnoses Diagnosis Pain Chest Wall documented in this encounter Administered Medications Inactive Administered Medications - up to 3 most recent administrations Medication Order MAR Action Action Date Dose Rate Site BUPivacaine 0.5 % (5 mg/mL) injection 7.5 mL (MARCAINE) 7.5 mL, injection, One-Time Injection, Starting on Fri07/23/23 at 1500, For 1 dose Given 07/23/2023 3:00 PM CDT 7.5 mL dexAMETHasone injection 15 mg (DECADRON) 15 mg, injection, One-Time Injection, Starting on Fri07/23/23 at 1500, For 1 dose Given 07/23/2023 3:00 PM CDT 15 mg iohexoL 300 mg iodine/mL solution 1 mL (OMNIPAQUE) 1 mL, injection, One-Time Injection, Starting on Fri07/23/23 at 1500, For 1 dose Given 07/23/2023 3:00 PM CDT 1 mL lidocaine 20 mg/mL injection 6 mL (XYLOCAINE) 6 mL, injection, One-Time Injection, Starting on Fri07/23/23 at 1500, For 1 dose Given 07/23/2023 3:00 PM CDT 6 mL documented in this encounter Additional Health Concerns Assessment Noted Time PHQ-9 Depression Total Score: 7 05/26/20 18 10:22 PM CDT documented as of this encounter 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
--- OUTSIDE RECORDS SUMMARY | 2023-12-18 17:29 | XMS_ITS | Encounter Summary ---
Author Name Unknown Organization [facility] Address [address] [place] [address] Care Team Providers Care Guide Domestic Tour Name Role Phone Elsewhere, Pcp Primary Care Provider Unavailabl e Reason for Visit * Reason Onset Date Comments patient has progression 07/28/2023 Encounter Details Date Type Department Care Team (Latest Contact Info) Description 07/28/2023 Clinical Communication Department of Oncology in [place], [place] [address] [place] [address] Giorgio Fishman M.D. [address] [place] [address] patient has progression Social History Tobacco Use Types Packs/Day Years [...] often do you attend chur ch or adventism services? Never 02/03/2023 Do you belong to any clubs o r organizations such as lutheran groups, unions, fraternal or athletic groups, or [...] Answer Date Recorded PHQ-2 Score 0 04/25/2019 [facility] - Occupational Stress Questionnaire Answer [...] degree (e.g., MA, MS, Ana Lilia, MEd, MAITRE D, GORDO) 02/15/2022 Sex and Gender Information Value Date Recorded Sex Assigned at Male 04/23/2018 1:23 PM CDT Gender Identity Male 04/23/2018 1:23 PM CDT Sexual Orientation Straight 04/23/2018 1: 23 PM CDT documented as of this encounter Miscellaneous Notes * Addendum Note - Ned Perez M.D. - 07/30/2023 4:31 PM CDTAddended by: NED PEREZ on: 07/30/2023 04:31 PM Modules accepted: Orders * Addendum Note - Sandi Hairston M.S.N., R.N. - 07/29/2023 2:29 PM CDT Addended by: SANDI HAIRSTON on: 07/29/2023 02:29 PM Modules accepted: Orders documented in this encounter Plan of Treatment Upcoming Encounters Date Type Department Care Team (Late st Contact Info) Description 12/23/2023 8:30 AM CAR PACKER Clinical Communication Virtual Review in [place], [place] [address] [place] [address] 12/24/2023 10:30 AM CAR PACKER Appointment Department of Radiology, [facility], in [address] [address] Noelle Reyes P.A.-C., P.A. [address] [place] [phone] 12/24/2023 11:00 AM CAR PACKER Lab Department of Infusion Therapy in [address] [address] Noelle Reyes P.A.-C., P.A. [address] [place] [address] 12/24/2023 2:15 PM CAR PACKER Office Visit Department of Palliative Care in [address] [address] Aylin Smith APRN, C.N.P., M.S.N. [address] [place] [address] 12/24/2023 4:10 PM CAR PACKER Office Visit Department of Oncology in [address] [address] Ned Perez M.D. [address] [place] [phone] documented as of this encounter Goals Goal Patient Goal Type Associated Problems Recent Progress Patient-Stated? Author Your pain? Symptom Management 9(11/20/2022 2:41 PM CAR PACKER) No Phyllis-Girma Bush R.N., O.C.N. Note: 05/24/2021: Pain algorithm completed. 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
--- OUTSIDE RECORDS SUMMARY | 2023-12-18 17:29 | XMS_ITS | Encounter Summary ---
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 [address] [place] [address] [facility] Referral ID Status Reason Start Date Expiration Date Visits Re quested Visits Authorized [id number] Closed 05/08/2023 05/07/2024 1 1 Encounter Details Date Type Department Care Team (Latest Contact Info) Description 07/30/2023 12:23 PM CDT - 07/30/2023 11:59 PM CDT Hospital Encounter Department of Radiology, [facility], in [place], [place] [address] [place] [address] Giorgio Fishman M.D. [address] [place] [address] Secondary Malignant Neoplasm Of Lung Laterality Unknown [...] any clubs o r organizations such as restoration groups, unions, fraternal or athletic groups, or [...] Answer Date Recorded PHQ-2 Score 0 04/25/2019 [facility] - Occupational Stress [...] place to sleep or slept in a half-way (including now)? No 02/03/2023 Nutrition Answer Date [...] (e.g., MA, MS, Ana Lilia, MEd, RESEARCH SCHOLAR, GORDO) 02/15/2022 Sex and Gender Information Value Date Recorded Sex Assigned at Male 04/23/2018 1:23 PM CDT Gender Identity Male 04/23/2018 1:23 PM CDT Sexual Orientation Straight 04/23/2018 1: 23 PM CDT documented as of this encounter Last Filed Vital Signs Vital Sign Reading Time Taken Comments Blood Pressure - - Pulse - - Temperature - - Respiratory Rate - - Oxygen Saturation - - Inhaled Oxygen Concentration - - Weight 94.7 kg (208 lb 12.4 oz) 023 12:48 PM CDT Height - - Body Mass Index 29.13 10/29/2022 1:45 PM BUS ANALYST documented in this encounter Medications at Time [...] chest pain. 25 tablet 12 05/28/2018 omega 6-tvw-xvv-fish oil 1,000 mg (120 mg-180 mg) capsule [...] 09/26/2023 pantoprazole (PROTONIX) 40 mg EC tabletIndications:Zuleyka brownleet Neoplasm Of Rectum (HCC) Take 1 tablet [...] st Contact Info) Description 12/23/2023 8:30 AM BUS ANALYST Clinical Communication Virtual Review in [place], [place] [address] [place] [address] 12/24/2023 10:30 AM BUS ANALYST Appointment Department of Radiology, [facility], in [address] [phone] Noelle Reyes P.A.-C., P.A. [address] [place] [address] 12/24/2023 11:00 AM BUS ANALYST Lab Department of Infusion Therapy in [address] [phone] Noelle Reyes P.A.-C., P.A. [address] [place] [phone] 12/24/2023 2:15 PM BUS ANALYST Office Visit Department of Palliative Care in [address] [phone] Aylin Smith, CINDY, C.N.P., M.S.N. [address] [place] [phone] 12/24/2023 4:10 PM BUS ANALYST Office Visit Department of Oncology in [address] [phone] Ned Alegria M.D. [address] [place] [phone] documented as of this encounter Goals Goal Patient Goal Type Associated Problems Recent Progress Patient-Stated? Author Your pain? Symptom Management 9(11/20/2022 2:41 PM BUS ANALYST) No Phyllis-Girma Bush R.N., O.C.N. Note: 05/24/2021: Pain algorithm completed. 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 Numerous progressive pulmonary nodules consistent with metastases. 2. Progressive pleural/chest wall presumed metastasis involving the right 5th rib. 3. Stable infiltrative process in the mediastinum may represent treated lymph node disease. Narrative 07/30/2023 3:15 PM CDT EXAM: CT CHEST WITH IV CONTRAST COMPARISON: Outside CT 07/28/2023. 08/05/2022 PET/CT. [facility] CT 2022. FINDINGS: This examination was performed in conjunction with a CT of the abdomen, which will be reported separately. For description of findings below the diaphragm please see separate report. No definite change between today's CT at an outside CT 07/28/2023. Comments below are compared to prior [facility] CT of 05/06/2023. Many progressive presumed pulmonary metastases in both lungs, for example a 10 mm lobulated solid subpleural nodule in the medial right lower lobe, series 3 image 397, measured 7 mm on 05/06/2023, and a 11 mm solid nodule in the right lower lobe posteriorly, image 478, measured 8 mm on 05/06/2023. Additional progressive presumed metastases, include those that are seen on images 87, 191, 205, 204, 241, 289, 344, 420, 451, 248, 322, 359, treated and 64, 420, 445 and 484. Stable post radiation changes in the posterior superior right upper lobe with likely radiation related insufficiency fracture in the posterior right 5th rib. Continued interval progression of a pleural or subpleural nodule measuring 20 x 10 mm adjacent to the post radiation changes, series 3 image 205, with associated cortical destruction of the 5th rib, previously measured 13 x 9 mm on 05/06/2022. Prominent eduar/soft tissue thickening surrounding the right mainstem bronchus and subcarinal spaces with some nodular components is concerning for an infiltrative process. This is stable, and may represent treated disease. No progressive lymph node metastases in the chest. Postoperative changes in the right lung. Right Port-A-Cath with tip in the low SVC. Mild coronary calcifications. 3D maximum intensity projection (MIP) images were created on a dependent workstation as ordered by the treating provider and reviewed by the radiologist to increase sensitivity for detection of pulmonary nodules. Procedure Note Manjit Arrington M.D., Ph.D. - 07/30/2023 EXAM: CT CHEST WITH IV CONTRAST COMPARISON: Outside CT 07/28/2023. 08/05/2022 PET/CT. [facility] [id number]. FINDINGS: This examination was performed in conjunction with a CT of the abdomen,which will be reported separately. For description of findings below the diaphragm please seeseparate report. No definite change between today's CT at an outside CT 07/28/2023.Comments below are compared to prior [facility] CT of 05/06/2023. Many progressive presumed pulmonary metastases in both lungs, for examplea 10 mm lobulated solid subpleural nodule in the medial right lower lobe, series 3 image 397,measured 7 mm on 05/06/2023, and a 11 mm solid nodule in the right lower lobe posteriorly, image 478,measured 8 mm on 05/06/2023. Additional progressive presumed metastases, include those thatare seen on images 87, 191, 205, 204, 241, 289, 344, 420, 451, 248, 322, 359, treated and 64,420, 445 and 484. Stable post radiation changes in the posterior superior right upper lobewith likely radiation related insufficiency fracture in the posterior right 5th rib. Continued interval progression of a pleural or subpleural nodule [id number] x 10 mm adjacent to the post radiation changes, series 3 image 205, with associated corticaldestruction of the 5th rib, previously measured 13 x 9 mm on 05/06/2022. Prominent eduar/soft tissue thickening surrounding the right mainstembronchus and subcarinal spaces with some nodular components is concerning for an infiltrative process.This is stable, and may represent treated disease. No progressive lymph node metastases in the chest. Postoperative changes in the right lung. Right Port-A-Cath with tip in thelow SVC. Mild coronary calcifications. 3D maximum intensity projection (MIP) images were created on a dependentworkstation as ordered by the treating provider and reviewed by the radiologist to increasesensitivity for detection of pulmonary nodules. IMPRESSION: 1. Numerous progressive pulmonary nodules consistent with metastases. 2. Progressive pleural/chest wall presumed metastasis involving the [id number] rib. 3. Stable infiltrative process in the mediastinum may represent treatedlymph node disease. Authorizing Provider Result Pete Fishman M.D. [facility] CT PROCEDURES * CT Abdomen Pelvis with IV Contrast (07/30/2023 1:32 PM CDT) Anatomical Region Laterality Modality Abdomen, Pelvis, Abdominal R ST LOS, Abdominal ARZ LOS, Abdominal FLA LOS N/A Computed Tomograp hy, Computed Tomography 07/30/2023 1:28 PM CDT Impressions 07/30/2023 2:18 PM CDT Worsening hepatic metastatic disease and enlarging upper abdominal metastatic lymph nodes since 05/06/2023. Narrative 07/30/2023 2:18 PM CDT EXAM: ??CT ABDOMEN PELVIS WITH IV CONTRAST COMPARISON: ??Outside abdomen/pelvis CT 07/26/2023 and [place] abdomen/pelvis CT 05/06/2023 . FINDINGS: ??No appreciable changes since the very recent outside abdomen/pelvis CT from 07/26/2023. Stable postoperative changes proctectomy with coloanal anastomosis. No evidence for local recurrence of disease. Hypodense lesion in segment 6 of the right hepatic lobe (series 1, image 46) increased in size since 05/06/2023 measuring 13 x 12 mm, previously 8 x 5 mm. Anterior hepatic dome lesion (series 1, image 15) increased from 8 x 6 mm up to 13 x 8 mm. Tiny lesion in segment 4 of the left hepatic lobe (series 1, image 31) increased from 3 mm up to 5 mm. New 8 x 6 mm lesion segment 8 right hepatic lobe (series 1, image 28). Possible additional new 4 mm hypodense lesion in segment 5 of the right hepatic lobe (series 1, image 53). Unchanged large ablation defect right hepatic lobe. Since 05/06/2023, enlarging nicole hepatis node with new mild central hypoenhancement/necrosis, increased in size from from 2.5 x 1.1 cm up to 2.8 x 1.4 cm. Additional adenopathy along the right diaphragmatic brandi extending along the right side of the celiac artery also increased measuring 1.3 cm short axis, previously 1.1 cm. No additional lymphadenopathy elsewhere in the abdomen or pelvis. No suspicious peritoneal nodules. No ascites. Remaining solid organs negative. Stable postoperative changes in the small bowel from prior takedown ileostomy. This examination was performed in conjunction with a CT of the chest, which will be reported separately. Procedure Note Willy Estrada M.D. - 07/30/2023 EXAM: CT ABDOMEN PELVIS WITH IV CONTRAST COMPARISON: Outside abdomen/pelvis CT 07/26/2023 and [place] abdomen/pelvis CT05/06/2023 . FINDINGS: No appreciable changes since the very recent outsideabdomen/pelvis CT from 07/26/2023. Stable postoperative changes proctectomy with coloanal anastomosis. Noevidence for local recurrence of disease. Hypodense lesion in segment 6 of the right hepatic lobe (series 1, image46) increased in size since 05/06/2023 measuring 13 x 12 mm, previously 8 x 5 mm. Anterior hepatic domelesion (series 1, image 15) increased from 8 x 6 mm up to 13 x 8 mm. Tiny lesion in segment 4 ofthe left hepatic lobe (series 1, image 31) increased from 3 mm up to 5 mm. New 8 x 6 mm lesionsegment 8 right hepatic lobe (series 1, image 28). Possible additional new 4 mm hypodense lesionin segment 5 of the right hepatic lobe (series 1, image 53). Unchanged large ablation defect righthepatic lobe. Since 05/06/2023, enlarging nicole hepatis node with new mild centralhypoenhancement/necrosis, increased in size from from 2.5 x 1.1 cm up to 2.8 x 1.4 cm. Additionaladenopathy along the right diaphragmatic brandi extending along the right side of the celiac arteryalso increased measuring 1.3 cm short axis, previously 1.1 cm. No additional lymphadenopathy elsewherein the abdomen or pelvis. No suspicious peritoneal nodules. No ascites. Remaining solid organs negative. Stable postoperative changes in the smallbowel from prior takedown ileostomy. This examination was performed in conjunction with a CT of the chest,which will be reported separately. IMPRESSION: Worsening hepatic metastatic disease and enlarging upper abdominalmetastatic lymph nodes since 05/06/2023. 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 Given 07/30/2023 1:30 PM CDT 500 Units Port iohexoL 300 mg iodine/mL solution 1-200 mL (OMNIPAQUE) 1-200 mL, intravenous, Once in imaging, contrast, Starting on Fri07/30/23 at 1255, For 1 dose, Imaging Protocol Orders, Dose per Radiant Medication Guidelines Given 07/30/2023 1:24 PM CDT 140 mL sodium chloride (PF) 0.9 % injection 1-100 mL 1-100 mL, intravenous, Once, On Fri07/30/23 at 1315, For 1 dose, Imaging Protocol Orders Given 07/30/2023 1:25 PM CDT 50 mL sodium chloride 0.9 % injection 10 mL 10 mL, intravenous, As needed, line care, Implanted Vascular Access Device (IVAD) Venous Non-Valved, Starting on Fri07/30/23 at 1248, Prior to and following infusion, between multiple consecutive infusions, and prior to blood sampling, Given 07/30/2023 1:30 PM CDT 10 mL Port Given 07/30/2023 12:56 PM CDT 10 mL P ort documented in this encounter Additional Health Concerns Assessment Noted Time PHQ-9 Depression Total Score: 7 05/26/20 18 10:22 PM CDT documented as of this encounter Care Teams Talent Acquisition Specialist Relationship Specialty Start Date End Date Elsewhere, Pcp PCP - General Internal Medicine 10/14/22 documented as of this encounter
--- OUTSIDE RECORDS SUMMARY | 2023-12-18 17:29 | XMS_ITS | Encounter Summary ---
Author Name Unknown Organization [facility] Address [address] [place] [address] Care Team Providers Care Artist Color Separation Name Role Phone Elsewhere, Pcp Primary Care Provider Unavailabl e Reason for Referral * Outpatient (Routine) - Closed Specialty Diagnoses / Procedures Referred By Contac t Referred To Contact Oncology Ned Alegria M.D. [address] [place] [address] [facility] Referral ID Status Reason Start Date Expiration Date Visits Re quested Visits Authorized [id number] Closed 07/31/2023 07/30/2026 1 1 Scheduling Instructions PITOT * Outpatient (Routine) - Closed Specialty Diagnoses / Procedures Referred By Contact Referred To Contact Gastroenterology and Hepatology Diagnoses Malignant Neoplasm Of Rectum (HCC) Ned Alegria M.D. [address] [place] [address] [facility] Referral ID Status Reason Start Date Expiration Date V isits Requested Visits Authorized [id number] Closed Specialty Services Required 07/31/2023 07/30/2024 1 1 Scheduling Instructions GIH consult should be scheduled after all testing * Outpatient (Routine) - Closed Specialty Diagnoses / Procedures Referred By Contac t Referred To Contact Diagnoses Malignant Neoplasm Of Rectum (HCC) Procedures EGD (EsophagealGastroDuodenoscopy ) Ned Alegria M.D. [address] [place] [phone] 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 [address] [place] [address] [facility] Referral ID Status Reason Start Date Expiration Date Visits Re quested Visits Authorized [id number] Closed 05/08/2023 05/07/2026 1 1 Encounter Details Date Type Department Care Team (Late st Contact Info) Description 07/31/2023 9:50 AM CDT Office Visit Department of Oncology in [place], [place] [address] [place] [phone] Ned Alegria M.D. [address] [place] [phone] Secondary Malignant Neoplasm Of Lung Laterality Unknown [...] How often do you attend chur or church services? Never 02/03/2023 Do you [...] Answer Date Recorded PHQ-2 Score 0 04/25/2019 [facility] [place] [facility] - Occupational Stress [...] place to sleep or slept in a retirement (including now)? No 02/03/2023 Nutrition Answer Date [...] degree (e.g., MA, MS, Ana Lilia, MEd, PHYSICIAN PRESIDENT, [employer]) 02/15/2022 Sex and Gender Information Value Date Recorded Sex Assigned at Male 04/23/2018 1:23 PM CDT Gender Identity Male 04/23/2018 1:23 PM CDT Sexual Orientation Straight 04/23/2018 1: 23 PM CDT documented as of this encounter Progress Notes * Ned Alegria M.D. - 07/31/2023 9:50 AM CDT SUBJECTIVE PRIMARY CARE PHYSICIAN ELSEWHERE, PCP LOCAL ONCOLOGIST No care sales team recruiter to display PRIMARY [place] ONCOLOGIST Giorgio Fishman M.D. CHIEF COMPLAINT / REASON FOR VISIT Luis Tabares is a 43 y.o. male from [facility] with metastatic rectal cancer. HISTORY OF PRESENT ILLNESS Oncology History He was initially diagnosed in April 2018 with locally advanced rectal cancer that was treated with long course radiation (28 fraction, 64.4 Gy) with capecitabine, followed by laparoscopic proctectomy with colo anal anastomosis ([id number]), which was then followed by adjuvant FLOX for 4 months completed 12/31/2018. He would a metastatic recurrence in the right lung status post multiple wedge excision on 09/27/2019, with metastases identified in the right middle lobe, right lower lobe, and again in the right lower lobe. Then this was followed, starting 04/14/2020, by first-line irinotecan plus panitumumab. 5 FU was deleted due to prior coronary vasospasm. This regimen apparently induced a significant response. On 07/31/2020, he underwent mediastinal lymphadenectomy which confirmed at least 3 involved metastatic nod es. This was then followed by radiation from 08/31/2020 until 09/20/2020. And then this was followed by what appears to be adjuvant irinotecan plus panitumumab until January 2021. However by 05/16/2021, he had repeat metastatic recurrent, this time in a right- sided 5th rib, and LADARIUS lung lesion, and potentially in the liver. This was managed with radiation, up to 3600 cGy, to the 5th rib lesion. This was also then followed by second-line irinotecan plus bevacizumab, starting 07/02/2021 until 01/01/2022, which yielded stable disease in the liver. On 02/18/2022, he underwent microwave ablationof 2 lesions in the liver. November 2022: 3rd line KIM was started. April 2023: Stable disease. Same regimen continued. It appears that bevacizumab was added around 06/09/2023. The patient indicates that he believes oxaliplatin was also continued perhaps at a dose reduction. He then began teaching counter issues with low platelets (71,000), and he received 5 FU alone on 06/30/2023. Treatment was held on 07/07 and on 07/14, [place] [address]. On 07/18/2023, treatment was held again due to platelets [address]165. At that point he was noted to have intermittent pain under the left lower rib wrapping around his flank. He was also noticing small dark clots with his saliva on his pillow case at night. A new CT CAP was ordered at home. Then on 07/26/2023 he was admitted for one day. Due to right upper quadrant abdominal pain, associated with vomiting. CT abdomen pelvis suggested a segment of small bowel thickening without evidence of obstruction. He was admitted for symptom management including pain and nausea. He was then discharged on 07/27/2023. INTERVAL HISTORY The main reason that he is seeing us today is for the management of his abdominal pain. Secondarily, is the question of his chemo regimen and his tumor progression. His abdominal pain acutely began on 07/17, it was /. Constant. It worsened until 07/26 when he presented to the local emergency room and was admitted. The local CT abdomen pelvis with IV contrast did not identify a cause of the pain. There was a question of potential small-bowel enteritis in the pelvis, so in addition to Dilaudid he was eventually given a short course of dexamethasone. The painimproved by 07/27 and he was discharged. On 07/28, the pain was returning, so that is when the dexamethasone was started, taken once daily in the morning. And he took the Dilaudid 2 mg once per day at night. By 07/29, the pain was returning especially at night and was associated with emesis. No melena or hematemesis. He is having bowel movements via enema which is his method ever since hiscolon anal anastomosis. He remains on Protonix 40 mg once daily, which is chronic. OBJECTIVE PHYSICAL EXAM ECOG 0 - asymptomatic There were no vitals taken for this visit. General: Alert and oriented. Appears healthy and in no acute distress. is on phone Gait: Normal Abdomen: Soft nontender nondistended. No noticeable tenderness in the epigastric region. He points to the right epigastric region as the main area of his pain. LABORATORY DATA Lab data reviewed. 07/30/2023 CBC unremarkable aside from a platelet count of 110 CMP unremarkable Albumin 4.8 CEA stable at 10.9 Bilirubin and transaminases are completely normal. RADIOLOGICAL DATA Radiology data reviewed. 07/30/2023 CT chest abdomen pelvis with IV contrast at [facility] 1. Numerous progressive pulmonary nodules consistent with metastases. 2. Progressive pleural/chest wall presumed metastasis involving the right 5th rib. 3. Stable infiltrative process in the mediastinum may represent treated lymph node disease. Worsening hepatic metastatic disease and enlarging upper abdominal metastatic lymph nodes since 05/06/2023 I reviewed the images with the radiologist, and neither of us could identify the etiology of the pain. The right hepatic capsule lesion from the previously ablated large mass has not changed since April. Some hepatic lesions have slightly enlarged but they are rather small measuring up to about 1.5 cm and they are not in areas typically cause this level of pain. There is no evidence of bowel obstruction or volvulus. There is no evidence of small-bowel inflammation on this exam or on the July 26 outside exam. There is some lymphadenopathy in the portacaval and celiac region but again the size his only about 2 cm short axis, and the location is not in areas that would typically cause significant nerve impingement. We do not see any significant retroperitoneal adenopathy, the latter of which could certainly cause this type of pain. 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 Tabares and his . The main issue right now is his right upper quadrant pain. There is no radiographic cause of the pain that has been identified after CT abdomen pelvis with IV contrast. His LFTs are completely normal, and there are no dilated biliary ducts. Luminal causes remains possible. Of note, he did drink some alcohol about 3 or 4 days before the onset of this pain, and he typically does not drink any alcohol. We will perform an upper endoscopy to evaluate whether there could be local inflammation or erosion, that could be underlying this pain -- ordered. I also placed an order for him to see Gastroenterology to see if they have any other ideas. Meanwhile, if he really believe that the steroids were helping his pain, I believe it be reasonableto continue. But I would lean towards relying more on Dilaudid for now. He remains on Protonix 40 mg once daily. In terms of his cancer regimen, this will need to be revisited. Issues are dose- limiting thrombocytopenia and neuropathy. I would likely suggest irinotecan and panitumumab. He can discuss this further with Dr. Fishman, who is returning next week. They expressed understanding appreciation and agreement. documented in this encounter Plan of Treatment Upcoming Encounters Date Type Department Care Team (Late st Contact Info) Description 12/23/2023 8:30 AM AFTERNOON BABYSITTER Clinical Communication Virtual Review in [place], [place] [address] [place] [address] 12/24/2023 10:30 AM AFTERNOON BABYSITTER Appointment Department of Radiology, [facility], in [address] [phone] Noelle Reyes P.A.-C., P.A. [address] [place] [phone] 12/24/2023 11:00 AM AFTERNOON BABYSITTER Lab Department of Infusion Therapy in [address] [phone] Noelle Reyes P.A.-C., P.A. [address] [place] [phone] 12/24/2023 2:15 PM AFTERNOON BABYSITTER Office Visit Department of Palliative Care in [address] [phone] Aylin Smith, CINDY, C.N.P., M.S.N. [address] [place] [phone] 12/24/2023 4:10 PM AFTERNOON BABYSITTER Office Visit Department of Oncology in [address] [phone] Ned Alegria M.D. [address] [place] [phone] Scheduled Referrals Name Type Priority Associated Diagnoses Order Schedule Gastroenterology and Hepatology - General gastroenterology consult (clinic) Outpatient Referral Routine Malignant Neoplasm Of Rectum (HCC) Expected: 07/31/2023 (Approximate), Expires: 10/30/2024 Oncology office visit (clinic) Outpatient Referral Routine Expected: 07/31/2023 (Approximate), Expires: 10/30/2024 documented as of this encounter Goals Goal Patient Goal Type Associated Problems Recent Progress Patient-Stated? Author Your pain? Symptom Management 9(11/20/2022 2:41 PM AFTERNOON BABYSITTER) No Phyllis-iGrma Bush R.N., O.C.N. Note: 05/24/2021: Pain algorithm [...] that his need for medication may change. 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
--- OUTSIDE RECORDS SUMMARY | 2023-12-18 17:30 | XMS_ITS | Encounter Summary ---
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 [address] [place] [address] [facility] Referral ID Status Reason Start Date Expiration Date Visits Re quested Visits Authorized [id number] Closed 02/25/2023 02/24/2026 1 1 Encounter Details Date Type Department Care Team (Late st Contact Info) Description 05/07/2023 2:40 PM CDT Telemedicine Department of Oncology in [place], [place] [address] [place] [address] Giorgio Fishman M.D. 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 Never 02/03/2023 Do you belong to any clubs o r organizations such as gnosticist groups, unions, fraternal or athletic groups, or [...] Answer Date Recorded PHQ-2 Score 0 04/25/2019 [facility] Occupat ional Health - Occupational Stress [...] degree (e.g., MA, MS, Ana Lilia, MEd, TRUCK DRIVING INSTRUCTOR, GORDO) 02/15/2022 Sex and Gender Information Value Date Recorded Sex Assigned at Male 04/23/2018 1:23 PM CDT Gender Identity Male 04/23/2018 1:23 PM CDT Sexual Orientation Straight 04/23/2018 1: 23 PM CDT documented as of this encounter Progress Notes * Giorgio Fishman M.D. - 05/07/2023 2:40 PM CDT SUBJECTIVE PRIMARY CARE PHYSICIAN ELSEWHERE, PCP LOCAL ONCOLOGIST No care steam cleaner to display PRIMARY [facility] ONCOLOGIST Giorgio Fishman M.D. CHIEF COMPLAINT / REASON FOR VISIT Luis Tabares is a 42 y.o. male whose case of metastatic rectal carcinoma was reviewed by video conference HISTORY OF PRESENT ILLNESS Oncology History Oncology History Malignant Neoplasm Of Rectum (HCC) 04/15/2018 Initial Diagnosis Malignant Neoplasm Of Rectum (HCC) Approximately 4 months history of rectal pain with some bleeding. Seen locally and underwent colonoscopy which showed a rectal mass. Biopsy was positive for invasive adenocarcinoma. Came to [place] and seen by Gastroenterology. Underwent staging MRI [...] Right posterolateral thoracotomy and mediastinal lymphadenectomy. SURGEON(S) INSTITUTE SCIENTIST: Jazmine Bowden M.D. ASSISTING RESIDENT: Bandar Owusu [...] for metastasis 06/11/2021 - 06/13/2021 Radiation Therapy 5883-9683 cGy in 3 fractions to right posterior [...] for metastasis 06/11/2021 - 06/13/2021 Radiation Therapy [phone] cGy in 3 fractions to right posterior 5th rib lesion Patient now is seen by video conference. Patient continues on with chemotherapy. He seems to be tolerating treatment reasonably well. He is at the end of his 6th treatment which should be next Friday. When he gets both 5 FU and oxaliplatin, his neuropathy is relatively well tolerated. He denies any significant GI complaints. He did require a two week break in March but at this point he seems to be doing reasonably well with the treatment. He has been having some left hip pain and recent MRI did not show definite metastatic disease. His right rib pain is relatively stable. The following portions of the patient's history were reviewed and updated as appropriate: allergies, current medications, family history, medical history, social history, surgical history and problemlist. REVIEW OF SYSTEMS Answers submitted by the patient for this visit: General Review of Systems (Submitted on 02/03/2023) Fatigue: Yes Loss of appetite: Yes Night sweats: Yes No eye issues: Yes No ENT issues: Yes Rapid or fluttering heart beats: Yes No respiratory issues: Yes Nausea: Yes Vomiting: Yes Diarrhea: Yes Back pain/stiffness: Yes No skin issues: Yes Headache: Yes No mental health issues: Yes No blood/lymph issues: Yes No urinary/reproductive issues: Yes OBJECTIVE PHYSICAL EXAM ECOG 0 - asymptomatic There were no vitals taken for this visit. General: Alert and oriented. Appears healthy and in no acute distress during our video conference LABORATORY DATA Lab data reviewed. Current lab studies were reviewed. CBC and chemistries are essentially stable. CEA is at 12.4 RADIOLOGICAL DATA Radiology data reviewed. CT scan chest does show some pulmonary nodules have improved but others are larger and more solid. Right rib lesion is essentially stable. CT scan abdomen pelvis shows that the liver lesions are relatively stable with some more difficult to visualize. The portacaval node isunchanged. 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 Tabares and his by video conference. Overall his disease seem relatively stable. Some of the lung lesions have improved but others have increased and become a bit more solid. His liver disease and upper abdominal lymph nodes are relatively stable. At this point I have recommended continuing with the same treatment. He will get his 6th treatment next week and then would typically take a two week break. Because of family holiday out to [place], he wishes to take a three week break. This would seem reasonable and he can then return on week of June 09 to start another cycle of therapy. For now we will continue with the same treatment. We can see him back in about three months' time at the end of July for reassessment. He and his are comfortable with this plan and questions were answered. PATIENT EDUCATION Ready to learn, no apparent learning barriers were identified; learning preferences include listening. Explained diagnosis and treatment plan; patient expressed understanding of the content. ADMINISTRATIVE BILLING I personally spent 30 minutes in care of the patient today. Time includes both non face to face andface to face patient care. Consult conducted via real-time audio/video technology by Giorgio Fishman M.D. in [facility] to the patient in Patient's Home in [facility] documented in this encounter Plan of Treatment Upcoming Encounters Date Type Department Care Team (Late st Contact Info) Description 12/23/2023 8:30 AM ENTERPRISE RECORDS ANALYST Clinical Communication Virtual Review in [place], [place] [address] [place] [address] 12/24/2023 10:30 AM ENTERPRISE RECORDS ANALYST Appointment Department of Radiology, [facility], in [place], [place] [address] [place] [phone] Noelle Reyes P.A.-C., P.A. [address] [place] [phone] 12/24/2023 11:00 AM ENTERPRISE RECORDS ANALYST Lab Department of Infusion Therapy in [address] [phone] Noelle Reyes P.A.-C., P.A. [address] [place] [phone] 12/24/2023 2:15 PM ENTERPRISE RECORDS ANALYST Office Visit Department of Palliative Care in [address] [phone] Aylin Smith APRN, C.N.P., M.S.N. [address] [place] [phone] 12/24/2023 4:10 PM ENTERPRISE RECORDS ANALYST Office Visit Department of Oncology in [address] [phone] Ned Alegria M.D. 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 Author Your pain? Symptom Management 9(11/20/2022 2:41 PM ENTERPRISE RECORDS ANALYST) Raisa Ferguson-Girma Bush R.N., O.C.N. Note: 05/24/2021: Pain algorithm completed. [facility] 05/24/2021: Followup 06/07 via portal [...] documented as of this encounter Results * CT Abdomen Pelvis with IV Contrast [...] CONTRAST COMPARISON: ??Outside abdomen/pelvis CT 07/26/2023 and [place] abdomen/pelvis CT 05/06/2023 . FINDINGS: ??No appreciable [...] CONTRAST COMPARISON: Outside abdomen/pelvis CT 07/26/2023 and [place] abdomen/pelvis CT05/06/2023 . FINDINGS: No appreciable changes [...] upper abdominalmetastatic lymph nodes since 05/06/2023. Giorgio Fishman M.D. Shanika CT PROCEDURES * (ABNORMAL) CEA (Carcinoembryonic Antigen) (07/30/2023 9:33 AM CDT) Carcinoembryonic Ag (CEA), S 10.9(H) ng/mL 07/30/2023 5:41 PM CDT [facility] Comment: ----REFERENCE VALUE---- <=3.0 (Non-smokers) Some smokers may have elevated CEA, usually <5.0. ----ADDITIONAL INFORMATION---- The testing method is an immunoenzymatic assay manufactured by [employer]. and performed on the 5minutes DxI 800. ? Values obtained with different assay methods or kits may be different and cannot be used interchangeably. ? Test results cannot be interpreted as absolute evidence for the presence or absence of malignant disease. Blood (Blood, Venous) 07/30/2023 9:33 AM CDT 07/30/2023 4:42 PM CDT Giorgio Fishman M.D. LAB BLOOD ADD-ON Performing Organization Address [facility]/ZIP Co de Phone Number [facility] [address] [place] [address] [facility] [address] [place] [address] * Bilirubin, Direct (07/30/2023 9:33 AM CDT) Bilirubin, Direct, S <0.2 0.0 - 0.3 mg/dL 07/30/2023 10:23 AM CDT DTL Blood (Blood, Venous) 07/30/2023 9:33 AM CDT 07/30/2023 10:01 AM CDT Giorgio Fishman M.D. LAB BLOOD ADD-ON Performing Organization Address City/[facility]/ZIP Co de Phone Number [facility] [address] [place] [address], [facility] [address] [place] [address] * Comprehensive Metabolic Panel (07/30/2023 9:33 AM CDT) Potassium, S 4.0 3.6 - 5.2 mmol/L [...] CDT Giorgio Fishman M.D. LAB BLOOD ADD-ON [address] [address], [facility] DTL [address] [address] * (ABNORMAL) CBC with Differential, Blood (07/30/2023 [...] CDT Giorgio Fishman M.D. 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
--- OUTSIDE RECORDS SUMMARY | 2023-12-18 17:30 | XMS_ITS | Encounter Summary ---
Author Name Unknown Organization [facility] Address [address] [place] [address] Care Team Providers Care Fire Investigation Lieutenant Name Role Phone Elsewhere, Pcp Primary Care Provider Unavailabl e Reason for Referral * MRI/CAT/PET Scan (Routine) - Closed Specialty Diagnoses / Procedures Referred By Contac t Referred To Contact Radiology Diagnoses Pain Low Back Unspecified Procedures MR Lumbar Spine without IV Contrast Sean Shen D.O. [address] [place] [phone] [facility] Referral ID Status Reason Start Date Expiration Date Visits Re quested Visits Authorized [id number] Closed 06/20/2023 06/19/2024 1 1 Reason for Visit * MRI/CAT/PET Scan (Routine) - Closed Specialty Diagnoses / Procedures Referred By Contac t Referred To Contact Radiology Diagnoses Pain Low Back Unspecified Procedures MR Lumbar Spine without IV Contrast Sean Shen D.O. [address] [place] [phone] [facility] Referral ID Status Reason Start Date Expiration Date Visits Re quested Visits Authorized [id number] Closed 06/20/2023 06/19/2024 1 1 Encounter Details Date Type Department Care Team (Latest Contact Info) Description 07/23/2023 8:23 AM CDT - 07/23/2023 2:23 PM CDT Hospital Encounter Department of Radiology, [facility] in [place], [place] [address] [place] [phone] Sean Shen D.O. [address] [place] [address] Pain Low Back Unspecified Discharge Disposition: Home or Self Care Social [...] week 02/03/2023 How often do you attend [facility] or voodoo services? Never 02/03/2023 Do you belong to any clubs o r organizations such as yazdanism groups, unions, fraternal or athletic groups, or [...] Answer Date Recorded PHQ-2 Score 0 04/25/2019 [facility] Occupat ional Health - [...] degree (e.g., MA, MS, Ana Lilia, MEd, PARKING LINE PAINTER, GORDO) 02/15/2022 Sex and Gender Information Value [...] chest pain. 25 tablet 12 05/28/2018 omega 8-srk-yek-fish oil 1,000 mg (120 mg-180 mg) capsule [...] st Contact Info) Description 12/23/2023 8:30 AM INVENTORY AND PRICING ASSOCIATE Clinical Communication Virtual Review in [address] [address] 12/24/2023 10:30 AM INVENTORY AND PRICING ASSOCIATE Appointment Department of Radiology, [facility], in [address] [phone] Noelle Reyes P.A.-C., P.A. [address] [place] [phone] 12/24/2023 11:00 AM INVENTORY AND PRICING ASSOCIATE Lab Department of Infusion Therapy in [address] [phone] Noelle Reyes P.A.-C., P.A. [address] [place] [phone] 12/24/2023 2:15 PM INVENTORY AND PRICING ASSOCIATE Office Visit Department of Palliative Care in [place], [place] [address] [place] [phone] Aylin Smith, CINDY, C.N.P., M.S.N. [address] [place] [phone] 12/24/2023 4:10 PM INVENTORY AND PRICING ASSOCIATE Office Visit Department of Oncology in [place], [place] [address] [place] [phone] Ned Alegria M.D. [address] [place] [phone] documented as of this encounter Goals Goal Patient Goal Type Associated Problems Recent Progress Patient-Stated? Author Your pain? Symptom Management 9(11/20/2022 2:41 PM INVENTORY AND PRICING ASSOCIATE) No Fee-Girma Bush, RCandidoN., O.C.N. Note: 05/24/2021: Pain algorithm completed. [facility] 05/24/2021: Followup 06/07 via portal [...] Name Priority Date/Time Associated Diagnosis Comments MR LUMBAR SPINE WITHOUT IV CONTRAST RAD - Routine (most inpatients and all outpatients) 07/23/2023 9:33 AM CDT Pain Low Back Unspecified documented in this encounter Results * MR Lumbar Spine without IV Contrast (07/23/2023 9:33 AM CDT) Anatomical Region Laterality Modality Lumbar Spine, Neuroradiology RST [facility], Neuroradiology ARZ [facility], Neuroradiology FLA [facility] N/A Magnetic Resonance 07/23/2023 10:0 8 AM CDT Impressions 07/23/2023 10:17 AM CDT 1. Mild abnormal signal hypointensity on T1 [...] moderate bilateral neural foraminal stenosis are present. Narrative 07/23/2023 10:17 AM CDT EXAM: MR LUMBAR SPINE WITHOUT IV CONTRAST COMPARISON: Prior CT of the abdomen pelvis dated 05/06/2023 and plain films of the lumbar spine dated 10/25/2022 FINDINGS: Based on the prior CT scan, there are 5 tyq-hzz-urriwly lumbar-type vertebral bodies present with L5-S1 designated via the lumbosacral angle and with partial lumbarization of S1. A rudimentary S1-S2 biconvex disc space is seen. Conus medullaris terminates at T12. Height and alignment of the vertebral bodies are within normal limits. The marrow signal is slightly heterogeneous with minimal lower T1 weighted signal intensity seen involving the L1 and L2 vertebral bodies with corresponding minimal decreased T2-weighted signal intensity which appears to correspond to mild diffuse sclerosis of the vertebral bodies seen on the prior CT. On the fat suppressed T2-weighted images however, no discrete focal suspicious marrow lesions are seen. No evidence of any epidural disease is noted. No significant degenerative change is seen in the lumbar spine above the L3 vertebral level. At L3-L4, note is made of mild spinal canal stenosis secondary to trace bulge, mild bilateral facet and ligamentum flavum hypertrophy and dorsal epidural fat prominence. There is mild to moderate bilateral neural foraminal stenosis seen with the bulging annulus contacting the exiting L3 nerve roots without deformity. At L4-L5, spinal canal and neural foramina are patent. At L5-S1, tiny central protrusion may be present but this does not contribute any significant spinal canal or neural foraminal stenosis. Procedure Note Rancho Tavarez M.D. - 07/23/2023 EXAM: MR LUMBAR SPINE WITHOUT IV CONTRAST COMPARISON: Prior CT of the abdomen pelvis dated 05/06/2023 and plainfilms of the lumbar spine dated 10/25/2022 FINDINGS: Based on the prior CT scan, there are 5 cuo-qco-zvwudoezfijxn-type vertebral bodies present with L5-S1 designated via the lumbosacral angle and with partiallumbarization of S1. A rudimentary S1-S2 biconvex disc space is seen. Conus medullaris terminatesat T12. Height and alignment of the vertebral bodies are within normal limits. Themarrow signal is slightly heterogeneous with minimal lower T1 weighted signal intensity seeninvolving the L1 and L2 vertebral bodies with corresponding minimal decreased T2-weighted signal intensitywhich appears to correspond to mild diffuse sclerosis of the vertebral bodies seen on the prior CT. Onthe fat suppressed T2-weighted images however, no discrete focal suspicious marrow lesionsare seen. No evidence of any epidural disease is noted. No significant degenerative change is seen inthe lumbar spine above the L3 vertebral level. At L3-L4, note is made of mild spinal canal stenosis secondary to tracebulge, mild bilateral facet and ligamentum flavum hypertrophy and dorsal epidural fat prominence.There is mild to moderate bilateral neural foraminal stenosis seen with the bulging annuluscontacting the exiting L3 nerve roots without deformity. At L4-L5, spinal canal and neural foramina are patent. At L5-S1, tiny central protrusion may be present but this does notcontribute any significant spinal canal or neural foraminal stenosis. IMPRESSION: 1. Mild abnormal signal hypointensity on T1 and T2-weighted imagesthroughout the L1 and L2 vertebral bodies with the signal abnormality extending into the bilateralpedicles as seen on sagittal imaging. This corresponds to subtle sclerosis of the vertebralbodies seen on the prior CT of 05/06/2023. Otherwise slightly heterogeneous marrow signal withoutdiscrete marrow lesions identified. Consider gadolinium-enhanced MR imaging or technetium bonescanning for better assessment for possible metastatic involvement given patient's reportedhistory of metastatic colorectal carcinoma. 2. Mild degenerative changes in the lumbar spine most prominent at L3-Y6diuej mild spinal canal stenosis and moderate bilateral neural foraminal stenosis are present. Sean SOMMERS MRI PROCEDURES documented in this encounter Visit Diagnoses Diagnosis Pain Low Back Unspecified documented in this encounter Additional Health Concerns Assessment Noted Time PHQ-9 Depression Total Score: 7 05/26/20 18 10:22 PM CDT documented as of this encounter Care Teams Fire Investigation Lieutenant Relationship Specialty Start Date End Date Elsewhere, Pcp PCP - General Internal Medicine 10/14/22 documented as of this encounter
--- OUTSIDE RECORDS SUMMARY | 2023-12-18 17:30 | XMS_ITS | Encounter Summary ---
Author Name Unknown Organization [facility] Address [address] [place] [address] Care Team Providers Care Tearoom Host/Hostess Name Role Phone Elsewhere, Pcp Primary Care Provider Unavailabl e Encounter Details Date Type Department Care Team (Late st Contact Info) Description 06/20/2023 Orders Only Department of Oncology in [place], [place] [address] [place] [phone] Leopoldo Renteria P.A.-C., M.S. [address] [place] [phone] Social History Tobacco Use Types Packs/Day Years [...] often do you attend chur ch or anabaptism services? Never 02/03/2023 Do you belong to any clubs o r organizations such as samaritan groups, unions, fraternal or athletic groups, or [...] 04/25/2019 [facility] of Occupat ional Health - Occupational [...] degree (e.g., MA, MS, Ana Lilia, MEd, LABOR RELATIONS TEACHER, GORDO) 02/15/2022 Sex and Gender Information Value Date Recorded Sex Assigned at Male 04/23/2018 1:23 PM CDT Gender Identity Male 04/23/2018 1:23 PM CDT Sexual Orientation Straight 04/23/2018 1: 23 PM CDT documented as of this encounter Plan of Treatment Upcoming Encounters Date Type Department Care Team (Late st Contact Info) Description 12/23/2023 8:30 AM VAULT CLERK Clinical Communication Virtual Review in [place], [place] [address] [place] [address] 12/24/2023 10:30 AM VAULT CLERK Appointment Department of Radiology, [facility], in [place], [place] [address] [place] [address] Noelle Reyes P.A.-C., P.A. [address] [place] [phone] 12/24/2023 11:00 AM VAULT CLERK Lab Department of Infusion Therapy in [place], [place] [address] [place] [phone] Noelle Reyes P.A.-C., P.A. [address] [place] [phone] 12/24/2023 2:15 PM VAULT CLERK Office Visit Department of Palliative Care in [place], [place] [address] [place] [phone] Aylin Smith APRN, C.N.P., M.S.N. [address] [place] [phone] 12/24/2023 4:10 PM VAULT CLERK Office Visit Department of Oncology in [place], [place] [address] [place] [phone] Ned Alegria M.D. [address] [place] [phone] documented as of this encounter Goals Goal Patient Goal Type Associated Problems Recent Progress Patient-Stated? Author Your pain? Symptom Management 9(11/20/2022 2:41 PM VAULT CLERK) No Phyllis-Girma Bush, RCandidoN., O.C.N. Note: 05/24/2021: [...] documented as of this encounter Care Teams Tearoom Host/Hostess Relationship Specialty Start Date End Date Elsewhere, Pcp PCP - General Internal Medicine 10/14/22 documented as of this encounter
--- OUTSIDE RECORDS SUMMARY | 2023-12-18 17:30 | XMS_ITS | Encounter Summary ---
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 [address] [place] [address] [facility] Referral ID Status Reason Start Date Expiration Date Visits Re quested Visits Authorized [id number] Closed 02/25/2023 02/25/2024 1 1 Encounter Details Date Type Department Care Team (Latest Contact Info) Description 05/06/2023 1:35 PM CDT - 05/06/2023 11:59 PM CDT Hospital Encounter Department of Radiology, [facility], in [place], [place] [address] [place] [address] Giorgio Fishman M.D. [address] [place] [phone] Secondary Malignant Neoplasm Of Lung Laterality Unknown [...] How often do you attend chur or uatsdin services? Never 02/03/2023 Do you belong to any clubs o r organizations such as scientologist groups, unions, fraternal or athletic groups, or [...] Answer Date Recorded PHQ-2 Score 0 04/25/2019 [facility] - Occupational [...] degree (e.g., MA, MS, Ana Lilia, MEd, SURGERY ATTENDANT, GORDO) 02/15/2022 Sex and Gender Information Value [...] chest pain. 25 tablet 12 05/28/2018 omega 4-inp-jzj-fish oil 1,000 mg (120 mg-180 mg) capsule Take 2 capsules by mouth. 0 05/16/2022 TURMERIC ORAL Take 1 tablet by mouth every morning. 0 amLODIPine (NORVASC) 5 mg tablet Take 5 mg by mouth every morning. 0 12/28/2021 08/25/2023 DULoxetine (CYMBALTA) [address] capsule Take 1 capsule (60 mg total) by mouth daily. 90 capsule 3 08/09/2022 05/23/2023 gabapentin (NEURONTIN) 300 mg capsuleIndications:Rosie gnant Neoplasm [...] st Contact Info) Description 12/23/2023 8:30 AM VICE PRESIDENT PAYER Clinical Communication Virtual Review in [place], [place] [address] [place] [address] 12/24/2023 10:30 AM VICE PRESIDENT PAYER Appointment Department of Radiology, [facility], in [address] [phone] Noelle Reyes P.A.-C., P.A. [address] [place] [phone] 12/24/2023 11:00 AM VICE PRESIDENT PAYER Lab Department of Infusion Therapy in [address] [phone] Noelle Reyes P.Shantal.-C., P.A. [address] [place] [phone] 12/24/2023 2:15 PM VICE PRESIDENT PAYER Office Visit Department of Palliative Care in [address] [phone] Aylin Smith APRN, C.N.P., M.S.N. [address] [place] [phone] 12/24/2023 4:10 PM VICE PRESIDENT PAYER Office Visit Department of Oncology in [address] [phone] Ned Alegria M.D. [address] [place] [phone] Scheduled Orders Name Type Priority Associated Diagnoses Orde r Schedule Creatinine, POCT Point of Care Testing-Docked Device Routine Routine lab collecti on (next collection) for 1 Occurrences starting 05/06/2023 until 05/06/2023 documented as of this encounter Goals Goal Patient Goal Type Associated Problems Recent Progress Patient-Stated? Author Your pain? Symptom Management 9(11/20/2022 2:41 PM VICE PRESIDENT PAYER) No Fee-Girma Bush R.N., O.C.N. 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 While some of the pulmonary nodules have improved, the majority are larger and more solid. 2. Resolved tiny right pleural effusion. 3. Remainder of the chest CT is unchanged. Narrative 05/06/2023 2:33 PM CDT EXAM: CT CHEST WITH IV CONTRAST COMPARISON: Chest CT 02/03/2023. FINDINGS: This examination was performed in conjunction with a CT of the abdomen, which will be reported separately. PO changes of right thoracotomy with right middle and lower lobe wedge resections. Stable radiation changes in the posterior right upper lobe and the medial right upper lobe. Multiple pulmonary nodules show variable changes but several are larger and more solid. For example: 4 mm right apex unchanged (3/90), 2 mm posterior right upper lobe decreased from 3 mm (3/163), 5 mm solid right upper lobe, smaller and more solid (3/184), 7 mm right lower lobe from 4 mm and more solid (3/389), 8 mm right lower lobe from 6 mm and more solid (3/273), 14 x 10 mm posterior left upper lobe slightly smaller, more irregular, and more solid (3/247), 8 mm lingula from 5 mm (3/349), 8 mm left lower lobe larger and more solid (3/456). Resolved tiny right pleural effusion. No bulky thoracic adenopathy. Mild coronary artery calcification. Right IJ Port-A-Cath terminates in the low SVC. No significant change in the radiated pathologic posterior right 5th rib fracture with adjacent pulmonary radiation changes described above. 3D maximum intensity projection (MIP) images were created on a dependent workstation as ordered by the treating provider and reviewed by the radiologist to increase sensitivity for detection of pulmonary nodules. Procedure Note Татьяна Garcia M.D. - 05/06/2023 EXAM: CT CHEST WITH IV CONTRAST COMPARISON: Chest CT 02/03/2023. FINDINGS: This examination was performed in conjunction with a CT of the abdomen,which will be reported separately. PO changes of right thoracotomy with right middle and lower lobe wedgeresections. Stable radiation changes in the posterior right upper lobe and the medial right upperlobe. Multiple pulmonary nodules show variable changes but several are largerand more solid. For example: 4 mm right apex unchanged (3/90), 2 mm posterior right upper lobe decreased from 3 mm (3/163), 5 mm solid right upper lobe, smaller and more solid (3/184), 7 mm right lower lobe from 4 mm and more solid (3/389), 8 mm right lower lobe from 6 mm and more solid (3/273), 14 x 10 mm posterior left upper lobe slightly smaller, more irregular, andmore solid (3/247), 8 mm lingula from 5 mm (3/349), 8 mm left lower lobe larger and more solid (3/456). Resolved tiny right pleural effusion. No bulky thoracic adenopathy. Mild coronary artery calcification. Right IJ Port-A-Cath terminates in thelow SVC. No significant change in the radiated pathologic posterior right 5th ribfracture with adjacent pulmonary radiation changes described above. 3D maximum intensity projection (MIP) images were created on a dependentworkstation as ordered by the treating provider and reviewed by the radiologist to increasesensitivity for detection of pulmonary nodules. IMPRESSION: 1. While some of the pulmonary nodules have improved, the majority arelarger and more solid. 2. Resolved tiny right pleural effusion. 3. Remainder of the chest CT is unchanged. Authorizing Provider Result Pete Fishman M.D. [facility] CT PROCEDURES * CT Abdomen Pelvis with IV Contrast (05/06/2023 2:31 PM CDT) Anatomical Region Laterality Modality Abdomen, Pelvis, Abdominal R ST LOS, Abdominal ARZ LOS, Abdominal FLA LOS N/A Computed Tomograp hy, Computed Tomography 05/06/2023 2:21 PM CDT Impressions 05/06/2023 2:36 PM CDT 1. ??Hypodensities in segment 4B and in the subcapsular region of segment 7 are very difficult to visualize. The other hepatic hypodensities are unchanged. 2. ??Unchanged portocaval lymph node measuring 1.1 cm in short axis. There is again a small amount of soft tissue medial to this along the right side of the celiac artery. Narrative 05/06/2023 2:36 PM CDT EXAM: ??CT ABDOMEN PELVIS WITH IV CONTRAST COMPARISON: ??CT abdomen pelvis 02/03/2023. MRI abdomen 11/06/2022. FINDINGS: ?? Liver: Unchanged hypodensity at the hepatic dome (series 1, image 12) measuring 0.6 cm. The previously seen hypodensities in segment 4B and in the subcapsular region of segment 7 are very difficult to visualize. Unchanged hypodensity in segment 6 (series 1, image 45) which is ill-defined. Large 9.4 cm ablation site in the right hepatic lobe is again seen. Gallbladder and bile ducts: The gallbladder is contracted.. The intra and extra hepatic biliary ducts are not dilated. Adrenal glands: No discrete nodules. Kidneys: Symmetric nephrograms. No hydronephrosis. Spleen: Unremarkable. Pancreas: Homogeneous enhancement of the pancreas. No dilatation of the main pancreatic duct. Bowel: Low anterior resection. No dilatation of the large or small bowel. Peritoneum/Mesentery: No intraperitoneal free fluid or free gas. Lymph nodes: Unchanged portocaval lymph node measuring 1.1 cm in short axis. There is again a small amount of soft tissue medial to this along the right side of the celiac artery. Pelvis: The urinary bladder is unremarkable. Prostate is not enlarged. Vasculature: No aneurysmal dilatation of the abdominal aorta. Soft tissue: Unremarkable. Bones: No suspicious osseous lesion. Lung bases: Please see separately dictated same day CT chest report. Procedure Note Cherie Patino M.B.B.S. - 05/06/2023 EXAM: CT ABDOMEN PELVIS WITH IV CONTRAST COMPARISON: CT abdomen pelvis 02/03/2023. MRI abdomen 11/06/2022. FINDINGS: Liver: Unchanged hypodensity at the hepatic dome (series 1, image 12)measuring 0.6 cm. The previously seen hypodensities in segment 4B and in the subcapsular regionof segment 7 are very difficult to visualize. Unchanged hypodensity in segment 6 (series 1,image 45) which is ill-defined. Large 9.4 cm ablation site in the right hepatic lobe is againseen. Gallbladder and bile ducts: The gallbladder is contracted.. The intra andextra hepatic biliary ducts are not dilated. Adrenal glands: No discrete nodules. Kidneys: Symmetric nephrograms. No hydronephrosis. Spleen: Unremarkable. Pancreas: Homogeneous enhancement of the pancreas. No dilatation of themain pancreatic duct. Bowel: Low anterior resection. No dilatation of the large or smallbowel. Peritoneum/Mesentery: No intraperitoneal free fluid or free gas. Lymph nodes: Unchanged portocaval lymph node measuring 1.1 cm in shortaxis. There is again a small amount of soft tissue medial to this along the right side of the celiacartery. Pelvis: The urinary bladder is unremarkable. Prostate is not enlarged. Vasculature: No aneurysmal dilatation of the abdominal aorta. Soft tissue: Unremarkable. Bones: No suspicious osseous lesion. Lung bases: Please see separately dictated same day CT chest report. IMPRESSION: 1. Hypodensities in segment 4B and in the subcapsular region of segment 7are very difficult to visualize. The other hepatic hypodensities are unchanged. 2. Unchanged portocaval lymph node measuring 1.1 cm in short axis. Thereis again a small amount of soft tissue medial to this along the right side of the celiac artery. Giorgio C Pitot M.D. IMG CT PROCEDURES * Creatinine, POCT (05/06/2023 2:01 PM CDT) Creatinine, POCT, B 0.9 0.7 - 1.4 mg/dL 05/06/2023 2:04 PM CDT PCDT Comment: ----ADDITIONAL INFORMATION---- Performed at the Point of Care Blood 05/06/2023 2:01 PM CDT 05/06/2023 2:04 PM CDT Unknown Provider LAB POCT ORDERABLES - DEVICE Performing Organization Address [facility] Co de Phone Number [facility] [address] [place], [place] [phone] [place] [address] PCDT [facility] [address] [place] [address] * Creatinine, POCT (05/06/2023 2:01 PM CDT) Pathologist [facility] Estimated GFR (eGFR), POCT >90 >=60 mL/min/BSA 05/06/2023 2:04 PM CDT PCMO Comment: Estimated GFR calculated using the 2020 CKD_EPI creatinine equation. Blood 05/06/2023 2:01 PM CDT 05/06/2023 2:04 PM CDT Unknown Provider LAB POCT ORDERABLES - DEVICE Performing Organization Address [facility] Co de Phone Number POC [facility] [address] [place] [address], [facility] PCMO [facility] [address] [place] [address] documented in this encounter Visit Diagnoses Diagnosis [...] line care, Prior to discharge, Starting on Fri05/06/23 at 1345, For 1 dose, Implanted Vascular Access Device (IVAD) Venous Non-Valved: Following saline flush prior to discharge. Given 05/06/2023 2:23 PM CDT 500 Units iopromide 370 mg iodine/mL injection 1-162 mL (ULTRAVIST) 1-162 mL, intravenous, Once in imaging, contrast, Starting on Fri05/06/23 at 1340, For 1 dose, Imaging Protocol Orders, Dose per Radiant Medication Guidelines Given 05/06/2023 2:15 PM CDT 115 mL sodium chloride (PF) 0.9 % injection 1-100 mL 1-100 mL, intravenous, Once, On Fri05/06/23 at 1400, For 1 dose, Imaging Protocol Orders Given 05/06/2023 2:16 PM CDT 50 mL sodium chloride 0.9 % injection 10 mL 10 mL, intravenous, As needed, line care, Implanted Vascular Access Device (IVAD) Venous Non-Valved, Starting on Fri05/06/23 at 1345, Prior to and following infusion, between multiple consecutive infusions, and prior to blood sampling, Given 05/06/2023 1:46 PM CDT 10 mL Port sodium chloride 0.9 % injection 10 mL 10 mL, intravenous, During hospitalization, line care, Prior to discharge, Starting on Fri05/06/23 at 1345, For 1 dose, Implanted Vascular Access Device (IVAD) Venous Non-Valved: Followed by heparin flush prior to discharge. Given 05/06/2023 2:23 PM CDT 10 mL documented in this encounter Additional Health Concerns Assessment Noted Time PHQ-9 Depression Total Score: 7 05/26/20 18 10:22 PM CDT documented as of this encounter Care Teams Environmental Compliance Specialist Relationship Specialty Start Date End Date Elsewhere, Pcp PCP - General Internal Medicine 10/14/22 documented as of this encounter
--- OUTSIDE RECORDS SUMMARY | 2023-12-18 17:30 | XMS_ITS | Encounter Summary ---
Author Name Unknown Organization [facility] Address [address] [place] [address] Care Team Providers Care Events Specialist Name Role Phone Elsewhere, Pcp Primary Care Provider Unavailabl e Encounter Details Date Type Department Care Team (Latest Contact Info) Description 05/05/2023 12:00 PM CDT Clinical Communication Virtual Review in [place], [place] [address] [place], [place] [address] Social History Tobacco Use Types Packs/Day Years [...] often do you attend chur ch or buddhist services? Never 02/03/2023 Do you belong to any clubs o r organizations such as denominational groups, unions, fraternal or athletic groups, or [...] medical appointments or from getting medications? No 03/2 In the past 12 months, has l [...] degree (e.g., MA, MS, Ana Lilia, MEd, SMALL BUSINESS SALES REPRESENTATIVE, GORDO) 02/15/2022 Sex and Gender Information Value Date Recorded Sex Assigned at Male 04/23/2018 1:23 PM CDT Gender Identity Male 04/23/2018 1:23 PM CDT Sexual Orientation Straight 04/23/2018 1: 23 PM CDT documented as of this encounter Plan of Treatment Upcoming Encounters Date Type Department Care Team (Late st Contact Info) Description 12/23/2023 8:30 AM FIBER PICKER Clinical Communication Virtual Review in [place], [place] [address] [place] [address] 12/24/2023 10:30 AM FIBER PICKER Appointment Department of Radiology, [facility], in [place], [place] [address] [place] [phone] Noelle Reyes P.A.-C., P.A. [address] [place] [phone] 12/24/2023 11:00 AM FIBER PICKER Lab Department of Infusion Therapy in [place], [place] [address] [place] [phone] Noelle Reyes P.A.-C., P.A. [address] [facility] [place] [phone] 12/24/2023 2:15 PM FIBER PICKER Office Visit Department of Palliative Care in [place], [place] [address] [place] [phone] Aylin Smith, CINDY, C.N.P., M.S.N. [address] [place] [phone] 12/24/2023 4:10 PM FIBER PICKER Office Visit Department of Oncology in [place], [place] [address] [place] [phone] Ned Alegria M.D. [address] [place] [phone] documented as of this encounter Goals Goal Patient Goal Type Associated Problems Recent Progress Patient-Stated? Author Your pain? Symptom Management 9(11/20/2022 2:41 PM FIBER PICKER) Raisa Ferguson-Girma Bush, RCandidoN., O.C.N. Note: 05/24/2021: Pain algorithm completed. [facility] 05/24/2021: Followup 06/07 via [...] documented as of this encounter Care Teams Events Specialist Relationship Specialty Start Date End Date Elsewhere, Pcp PCP - General Internal Medicine 10/14/22 documented as of this encounter
--- OUTSIDE RECORDS SUMMARY | 2023-12-18 17:30 | XMS_ITS | Encounter Summary ---
Author Name Unknown Organization [facility] Address [address] [place] [address] Care Team Providers Care Obstetrics/Gynecology Nurse Name Role Phone Elsewhere, Pcp Primary Care Provider Unavailabl e Reason for Visit * Reason Onset Date Comments Pre-visit Intake 06/17/2023 Encounter Details Date Type Department Care Team (Latest Contact Info) Description 06/17/2023 9:30 AM CDT Clinical Communication Virtual Review in [place], [place] [address] [place], [place] [phone] Pre-visit Intake Social History Tobacco Use Types [...] often do you attend chur ch or episcopal services? Never 02/03/2023 Do you belong to any clubs o r organizations such as mandaen groups, unions, fraternal or athletic groups, or [...] Answer Date Recorded PHQ-2 Score 0 04/25/2019 [facility] - Occupational Stress Questionnaire Answer Date [...] degree (e.g., MA, MS, Ana Lilia, MEd, WHEEL INSTALLER, GORDO) 02/15/2022 Sex and Gender Information Value Date Recorded Sex Assigned at Male 04/23/2018 1:23 PM CDT Gender Identity Male 04/23/2018 1:23 PM CDT Sexual Orientation Straight 04/23/2018 1: 23 PM CDT documented as of this encounter Plan of Treatment Upcoming Encounters Date Type Department Care Team (Late st Contact Info) Description 12/23/2023 8:30 AM BOREMATIC MACHINE OPERATOR Clinical Communication Virtual Review in [place], [place] [address] [place] [address] 12/24/2023 10:30 AM BOREMATIC MACHINE OPERATOR Appointment Department of Radiology, [facility], in [place], [place] [address] [place] [address] Noelle Reyes P.A.-C., P.A. [address] [place] [phone] 12/24/2023 11:00 AM BOREMATIC MACHINE OPERATOR Lab Department of Infusion Therapy in [place], [place] [address] [place] [phone] Noelle Reyes P.A.-C., P.A. [address] [place] [phone] 12/24/2023 2:15 PM BOREMATIC MACHINE OPERATOR Office Visit Department of Palliative Care in [place], [place] [address] [place] [phone] Aylin Smith, CINDY, C.N.P., M.S.N. [address] [place] [phone] 12/24/2023 4:10 PM BOREMATIC MACHINE OPERATOR Office Visit Department of Oncology in [place], [place] [address] [place] [phone] Ned Alegria M.D. [address] [place] [phone] documented as of this encounter Goals Goal Patient Goal Type Associated Problems Recent Progress Patient-Stated? Author Your pain? Symptom Management 9(11/20/2022 2:41 PM BOREMATIC MACHINE OPERATOR) No Fee-Girma Bush, R.N., O.C.N. Note: 05/24/2021: Pain algorithm completed. [facility] 05/24/2021: Followup 06/07 via portal per patient [...] documented as of this encounter Care Teams Obstetrics/Gynecology Nurse Relationship Specialty Start Date End Date Elsewhere, Pcp PCP - General Internal Medicine 10/14/22 documented as of this encounter
--- OUTSIDE RECORDS SUMMARY | 2023-12-18 17:30 | XMS_ITS | Encounter Summary ---
Author Name Unknown Organization [facility] Address [address] [place] [address] Care Team Providers Care Plasma Specialist Name Role Phone Elsewhere, Pcp Primary Care Provider Unavailabl e Reason for Referral * Outpatient (Routine) - Closed Specialty Diagnoses / Procedures Referred By Contac t Referred To Contact Diagnoses Sacroiliitis (HCC) Procedures FL Sacroiliac Joint Injection Left Alana Shen D.O. [address] [place] [address] [facility] Referral ID Status Reason Start Date Expiration Date Visits Re quested Visits Authorized [id number] Closed 07/25/2023 07/24/2024 1 1 * Outpatient (Routine) - Closed Specialty Diagnoses / Procedures Referred By Contac t Referred To Contact Diagnoses Pain Chest Wall Procedures FL Thoracic Paravertebral Block Injection Right MO PARAVERTEB BLOCK THOR SNGL MO PARAVERTEB BLOCK THOR 2ND & ADD Alana Shen D.O. [address] [place] [address] [facility] Referral ID Status Reason Start Date Expiration Date Visits Re quested Visits Authorized [id number] Closed 06/20/2023 06/19/2024 1 1 * MRI/CAT/PET Scan (Routine) - Closed Specialty Diagnoses / Procedures Referred By Contac t Referred To Contact Radiology Diagnoses Pain Low Back Unspecified Procedures MR Lumbar Spine without IV Contrast Alana Shen D.O. [address] [place] [address] [facility] Referral ID Status Reason Start Date Expiration Date Visits Re quested Visits Authorized [id number] Closed 06/20/2023 06/19/2024 1 1 Reason for Visit * Outpatient (Routine) - Closed Specialty Diagnoses / Procedures Referred By Contac t Referred To Contact Pain Medicine Diagnoses Ella Gonzalez M.D. [address] [place] [address] [facility] Referral ID Status Reason Start Date Expiration Date Visits Re quested Visits Authorized [id number] Closed 04/01/2023 03/31/2026 1 1 Encounter Details Date Type Department Care Team (Late st Contact Info) Description 06/20/2023 11:00 AM CDT Office Visit Division of Pain Medicine in [place], [place] [address] [place] [phone] Alana Shen D.O. [address] [place] [phone] Pain Low Back Unspecified (Primary Dx); Pain Chest Wall; Sacroiliitis (HCC) Social History Tobacco Use Types Packs/Day [...] often do you attend chur ch or amish services? Never 02/03/2023 Do you belong to any clubs o r organizations such as worship groups, unions, fraternal or athletic groups, or [...] Answer Date Recorded PHQ-2 Score 0 04/25/2019 [facility] - Occupational [...] to sleep or slept in a senior living (including now)? No 02/03/2023 Nutrition Answer Date [...] degree (e.g., MA, MS, Ana Lilia, MEd, FUSE CUTTER, [employer]) 02/15/2022 Sex and Gender Information Value Date Recorded Sex Assigned at Male 04/23/2018 1:23 PM CDT Gender Identity Male 04/23/2018 1:23 PM CDT Sexual Orientation Straight 04/23/2018 1: 23 PM CDT documented as of this encounter Progress Notes * Alana Shen D.O. - 06/20/2023 11:00 AM CDT PAIN MEDICINE CLINIC FOLLOW-UP NOTE SUBJECTIVE: Luis Tabares is a 43 y.o. male with a past medical history significant for rectal cancer (diagnosed March 2018) with metastases to his liver, lung, and abdominal lymph nodes. He initially received systemic chemotherapy and radiation followed by surgical resection. This was followed by further chemotherapy and surveillance. In September 2019, patient was noted to have pulmonary metastases and underwent right thoracotomy, this was repeated in July 2020 for recurrent pulmonary metastases. Since that time, he has continued on chemotherapy, but has unfortunately had been found to have metastases to the right 5th rib for which he is receiving radiation. Most recent imaging has shown 2 increasing lesions in his liver s/p liver ablation. Patient was originally seen in the [facility] pain clinic on 03/07/2022 with complaint of RUQ abdominal pain, pain along the R mid-axillary line, and R shoulder pain. Procedures performed are below. He noted particular relief from the R sided paravertebral injectionperformed on 07/19/2022 and 10/18/2022, and 03/2023. Today patients primary concern is left-sided low back pain. He states that an acutely started 9 months ago. He did not note an inciting event. He describes the pain as a 10/10 in nature localized to left-sided low back with no radiation. He states that it significantly interferes with his daily life. 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 He is unable to walk long distances or stand for long periods of time as the pain is to excruciating. He occasionally has to take his Dilaudid which he has at home about every 2 months when the pain is very severe. Otherwise, he relies on ibuprofen, Tylenol, heat packs to relieve the pain, which provides mild and temporary relief. It significantly interferes with his sleep at night. At the last visit, patient reported L sided low back pain. L PSIS trigger point, L4-5, L5-S1 MBB toRFA was discussed with patient, but these procedures were delayed due to chemotherapy. Patient receives chemotherapy currently every Friday. Additionally patient has described worsening of his neuropathy in his upper and lower extremities due to participant chemotherapy. He is tolerating his gabapentin 300 t.i.d. with no side effects. He is interested in increasing this dose to help with the neuropathy is experiencing. He denies bowel or bladder dysfunction, constipation, nausea, vomiting, or mental fogginess. Previous Procedures: -T5 intercostal nerve block 03/08/2022 [...] (Right T5-T6, Right T7-T8 and Right T9-T10) Home Pain Medications: - Duloxetine 60mg QD - Hydromorphone 2mg PRN - Gabapentin 300mg TID OBJECTIVE PHYSICAL EXAM Vitals signs were reviewed. GENERAL: NAD, friendly, conversive, accompanied by supportive family member HEAD: Atraumatic, normocephalic MENTAL: AAOx3, answers questions appropriately LUNGS: Unlabored respirations. CARDIAC: Regular rate and rhythm SKIN: No discoloration, no rashes, no open wounds GAIT: Non-analtic gate. MSK: RUE: 5/5 strength, sensation intact throughout, LUE: 5/5 strength, sensation intact throughout, RLE: 5/5 strength, sensation intact throughout, LLE: 5/5 strength, sensation intact throughout, BACK: Significant pain with palpation over the L SIJ. And with palpation along the midline throughout the lumbar spine PROVOCATIVE MANEUVERS: -positive axial loading in the lumbar spine bilaterally -positive FABERS TEST on the L side -positive THIGH THRUST L side -positive SI COMPRESSION L side -negative straight leg raise bilaterally Skin: No ecchymosis Neuro: Answers all questions appropriately. AOx3 DIAGNOSTICS I have independently reviewed all imaging studies and reviewed the relevant findings with the patient. 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 Tabares today. He is a very good response with right-sided paravertebral blocks in the past. We will continue to perform these injections as he notes consistent 3-5 months relief with each. Today his primary complaint is left lower back pain. The patient's pain seems to be localized to the PSIS for SIJ region. Additionally he has provocative maneuvers on physicalexam consistent with lumbar arthropathy and SI joint dysfunction on the left side. I think the patient would benefit from an SI joint injection with PSIS injection and possibly L4-5, L5-S1 and MBB toRFA in the future. However, the patient has not had recent lumbar imaging. I think there is utilityin getting a lumbar MRI to further evaluate the source of the patient's pain prior to pursuing injections. Once we have the MRI results we can then have a more definitive plan on how we want to go forward with interventional techniques. He gets consistent chemotherapy with steroid administration, so something to continue to consider is limiting his dose steroids while on chemotherapy. We will re-evaluate this after the MRI imaging is resulted. PLAN: - Conservative: He has been encouraged to try dry needling at the site of the left PSIS in the pastand physical therapy however the patient has not yet tried these conservative techniques. - Medications: We discussed increasing his gabapentin dose slowly starting with 300/300/600 for 2 weeks to 600/300/600 for 2 weeks with the goal of 600/600/600. Patient is currently tolerating the gabapentin and I believe increasing the dose is appropriate to reach a more therapeutic benefit. He will contact us when refill is appropriate. - Imaging: Recommend Lumbar Spine MRI to assess origin of patient's lumbar back pain in the settingof chronic refractory low back pain. -Injections/interventions: -Pending the MRI results we will consider scheduling left SI joint intra- articular injection with PSIS injection as the patient is has positive provocative maneuvers on physical exam and is significantly tender at the SI joint/PSIS location. Pending the MRI results we can also consider B/L L4-5, L5- S1 MBB to RFA. -we will schedule a right-sided paravertebral block (Right T5-T6, Right T7-T8 and Right T9-T10), asthe patient has noted greater than 50% relief in the past with these injections. Medicare Coverage Evaluation for SI joint injection (SIJI) This patient has been evaluated for a sacroiliac joint injection and meets ALL of the following criteria: 1. Moderate to severe low back pain primarily over the anatomic location of the SI joint 2. The duration of the pain is 9 months (minimum 3 months) 3. The low back pain is below L5 without evidence of a contributing radiculopathy 4. Clinical examination and/or imaging studies do not suggest a different causative pathology such as central stenosis with claudication, disc pathology, infection, tumor or fracture. 5. The patient has 3 required positive provocative maneuvers for SI pain: JAMES, Thigh Thrust, and SI compression 6. The low back pain has persisted despite a trial of conservative cares for a minimum of 4 weeks. The conservative therapies trialed were physical therapy, heat, opioid medication, and neuropathic medication. These therapies were trialed for a duration of 9 months. Based on these criteria, we will proceed with a diagnostic sacroiliac joint injection. - Referrals: No refills are needed at this point in time FOLLOW-UP: 3 months or As needed. Patient education: The patient was ready to learn and had no apparent learning barriers. Their learning preferences includes listening. The diagnosis and treatment plans were explained and the patient expressed understanding of the content. I personally spent a total of 30 minutes in sav-miav-ai-face time performing a review of the recordand/or discussion with the patient/caregiver as described above. Total time spent with patient: 30 minutes. Total time in counselin minutes. Alana Shen DO Addendum 08/27/2023: Mr. Tabares has not received benefit from the SI joint injection. Additionally, he has had persistent and refractory abdominal pain in concordance with his back pain. He has had a rather exhausted workup of his abdominal pain with endoscopy and abdominal ultrasound without any ominous source identified. Most likely etiology of the abdominal pain is cancer related pain from his intraabdominal metastasis, in particular the liver. I am concerned that his back pain is actually referred pain from hissevere refractory cancer related abdominal pain. The Lumbar MRI had no obvious source of his low back pain. I agree with our oncology colleagues that pursuing a celiac plexus diagnostic block is a good next step in the treatment algorithm for his pain. He has been off chemotherapy due to myelosuppression for 6-8 weeks. He is not currently on anticoagulation or chronic antibiotic therapy. I have placed an order for a diagnostic celiac plexus block and a pre-procedural visit for a more comprehensive overview of his symptoms and discussion of the risks and benefits of the celiac plexus block prior to it being performed. Alana Shen DO, PGY-5 Pain Medicine Fellow documented in this encounter Miscellaneous Notes * Addendum Note - Alana Shen D.O. - 06/20/2023 11:00 AM CDTAddended by: ALANA SHEN on: 07/25/2023 12:29 PM Modules accepted: Orders documented in this encounter Plan of Treatment Upcoming Encounters Date Type Department Care Team (Late st Contact Info) Description 12/23/2023 8:30 AM SENIOR ACCOUNTANT ANALYST Clinical Communication Virtual Review in [address] [address] 12/24/2023 10:30 AM SENIOR ACCOUNTANT ANALYST Appointment Department of Radiology, [facility] in [address] [phone] Noelle Reyes, P.A.-C., P.A. [address] [place] [phone] 12/24/2023 11:00 AM SENIOR ACCOUNTANT ANALYST Lab Department of Infusion Therapy in [address] [phone] Noelle Reyes, P.A.-C., P.A. [address] [place] [phone] 12/24/2023 2:15 PM SENIOR ACCOUNTANT ANALYST Office Visit Department of Palliative Care in [address] [phone] Aylin Smith, PUBLIC ADDRESS SYSTEM INSTALLER, C.N.P., M.S.N. [address] [place] [phone] 12/24/2023 4:10 PM SENIOR ACCOUNTANT ANALYST Office Visit Department of Oncology in [place], [place] [address] [place] [phone] Ned Alegria M.D. [address] [place] [phone] documented as of this encounter Goals Goal Patient Goal Type Associated Problems Recent Progress Patient-Stated? Author Your pain? Symptom Management 9(11/20/2022 2:41 PM SENIOR ACCOUNTANT ANALYST) No Fee-Girma Bush RCandidoN., O.C.N. Note: 05/24/2021: Pain algorithm completed[place] [facility] [place] Followup 06/07 via portal per patient [...] his need for medication may change. [facility] 06/07/2021: Pain rating over the past [...] documented as of this encounter Results * FL SACROILIAC JOINT INJECTION LEFT (07/30/2023 8:22 AM CDT) Narrative Aisha Palomares M.D. - 07/30/2023 8:00 AM CDT Aisha Palomares M.D. ? 07/30/2023 12:19 PM FL Sacroiliac Joint Injection Left Performed by: Aisha Palomares M.D. Authorized by: Alana Shen D.O. ?? Care team members present [...] 0 Estimated blood loss: 0 Implants: 0 Alana Shen D.O. IMG FLUOROSCOPY PROC EDURES * FL Thoracic Paravertebral Block Injection Right (07/23/2023 3:02 PM CDT) Narrative Anders Weston M.D. - 07/23/2023 3:00 PM CDT Anders Weston M.D. ? 07/23/2023 ??3:05 PM FL Thoracic Paravertebral Block Injection Right Performed by: Anders Weston M.D. Authorized by: Alana Shen D.O. ?? Care team members present 1. Sadie Guerrier [...] 0 Estimated blood loss: 0 Implants: 0 Alana Shen D.O. FLUORO GUIDED PAIN P ROCEDURES * MR Lumbar Spine without IV Contrast (07/23/2023 9:33 AM CDT) Anatomical Region Laterality Modality Lumbar Spine, Neuroradiology RST [facility], Neuroradiology [facility], Neuroradiology FLA [facility] N/A Magnetic Resonance 07/23/2023 10:0 [...] the prior CT scan, there are 5 vqx-kfq-jvhphzk lumbar-type vertebral bodies present with L5-S1 designated [...] the prior CT scan, there are 5 pqf-buk-dliziiuzbwrlf-type vertebral bodies present with L5-S1 designated via [...] in the lumbar spine most prominent at L3-T4qrdyv mild spinal canal stenosis and moderate bilateral neural foraminal stenosis are present. Alana SOMMERS MRI PROCEDURES documented in this encounter Visit Diagnoses Diagnosis Pain Low Back Unspecified- Primary Pain Chest Wall Sacroiliitis (HCC) Pain Low Back Unspecified Pain Chest Wall Sacroiliitis (HCC) documented in this encounter Additional Health Concerns Assessment Noted Time PHQ-9 Depression Total Score: 7 05/26/20 18 10:22 PM CDT documented as of this encounter Care Teams Plasma Specialist Relationship Specialty Start Date End Date Elsewhere, Pcp PCP - General Internal Medicine 10/14/22 documented as of this encounter
--- OUTSIDE RECORDS SUMMARY | 2023-12-18 17:30 | XMS_ITS | Encounter Summary ---
Author Name Unknown Organization [facility] Address [address] [place] [address] Care Team Providers Care Tracer Bullet Section Supervisor Name Role Phone Elsewhere, Pcp Primary Care Provider Unavailabl e Reason for Referral * MRI/CAT/PET Scan (Routine) - Closed Specialty Diagnoses / Procedures Referred By Halima owen Referred To Contact Radiology Diagnoses Pain Hip Left Procedures MR Hip Left without and with IV Contrast Amy Neff M.D. [address] [place] [address] [facility] Referral ID Status Reason Start Date Expiration Date Visits Re quested Visits Authorized [id number] Closed 04/15/2023 04/14/2024 1 1 Reason for Visit * MRI/CAT/PET Scan (Routine) - Closed Specialty Diagnoses / Procedures Referred By Halima owen Referred To Contact Radiology Diagnoses Pain Hip Left Procedures MR Hip Left without and with IV Contrast Amy Neff M.D. [address] [place] [address] [facility] Referral ID Status Reason Start Date Expiration Date Visits Re quested Visits Authorized [id number] Closed 04/15/2023 04/14/2024 1 1 Encounter Details Date Type Department Care Team (Latest Contact Info) Description 05/07/2023 7:17 AM CDT - 05/07/2023 11:59 PM CDT Hospital Encounter Department of Radiology, [facility], in [place], [place] [address] [place] [address] Amy Neff M.D. [address] [place] [phone] Pain Hip Left Discharge Disposition: Home or Self Care Social [...] often do you attend chur ch or mormonism services? Never 02/03/2023 Do you [...] Answer Date Recorded PHQ-2 Score 0 04/25/2019 [facility] Occupat ional Health - Occupational Stress [...] degree (e.g., MA, MS, Ana Lilia, MEd, PHYSICIST [employer], [employer]) 02/15/2022 Sex and Gender Information Value [...] chest pain. 25 tablet 12 05/28/2018 omega 2-wdo-fhf-fish oil 1,000 mg (120 mg-180 mg) capsule [...] 08/09/2022 05/23/2023 gabapentin (NEURONTIN) 300 mg capsuleIndications:Rosie gnjerrell Neoplasm Of Rectum (HCC),Pain Neuropathic TAKE 1 [...] st Contact Info) Description 12/23/2023 8:30 AM STOVE REFINISHER Clinical Communication Virtual Review in [place], [place] [address] [place] [address] 12/24/2023 10:30 AM STOVE REFINISHER Appointment Department of Radiology, [facility], in [place], [place] [address] [place] [phone] Noelle Reyes P.A.-C., P.A. [address] [place] [phone] 12/24/2023 11:00 AM STOVE REFINISHER Lab Department of Infusion Therapy in [place], [place] [address] [place] [phone] Noelle Reyes P.A.-C., P.A. [address] [place] [phone] 12/24/2023 2:15 PM STOVE REFINISHER Office Visit Department of Palliative Care in [place], [place] [address] [place] [phone] Aylin Smith, CINDY, C.N.P., M.S.N. [address] [place] [phone] 12/24/2023 4:10 PM STOVE REFINISHER Office Visit Department of Oncology in [place], [place] [address] [place] [phone] Ned Alegria M.D. [address] [place] [phone] documented as of this encounter Goals Goal Patient Goal Type Associated Problems Recent Progress Patient-Stated? Author Your pain? Symptom Management 9(11/20/2022 2:41 PM STOVE REFINISHER) No Phyllis-Girma Bush, RCandidoN., O.C.N. Note: 05/24/2021: Pain algorithm completed. [employer] [...] Name Priority Date/Time Associated Diagnosis Comments MR HIP LEFT WITHOUT AND WITH IV CONTRAST RAD - Routine (most inpatients and all outpatients) 05/07/2023 9:08 AM CDT Pain Hip Left documented in this encounter Results * MR Hip Left without and with IV Contrast (05/07/2023 9:08 AM CDT) Anatomical Region Laterality Modality Lower Extremity, Hip, Muscul oskeletal RST LOS, Musculoskeletal ARZ LOS, Muskuloskeletal FLA LOS Left Magne tic Resonance 05/07/2023 8:32 AM CDT Impressions 05/07/2023 11:49 AM CDT 1. No evidence of metastatic disease in the left hip and imaged left pelvis. 2. Minimal degenerative irregularity of the acetabular labrum. 3. Mild distal gluteus medius tendinopathy. Narrative 05/07/2023 11:49 AM CDT EXAM: ??MR HIP LEFT WITHOUT AND WITH IV CONTRAST COMPARISON: ??CT abdomen pelvis 05/06/2023. Bilateral hip and pelvis radiographs 2021. FINDINGS: ??No evidence of metastases in the left hip or imaged pelvis. No fracture. No significant chondromalacia involving the left hip. Minimal degeneration of the acetabular labrum without displaced tear. Tiny os acetabula. Tiny ganglion cyst at the posterior aspect of the femoral neck. Ligamentum teres is intact. Mild thickening of the posterior fibers of the distal gluteus medius tendon at its insertion on the greater trochanter. Gluteus minimus and proximal hamstrings tendons are normal. No abnormal intramuscular signal or enhancement. Minimal degenerative change at the inferior aspect of the left SI joint. Neurovascular structures about the left hip are negative. Procedure Note Dakota Garcia M.D. - 05/07/2023 EXAM: MR HIP LEFT WITHOUT AND WITH IV CONTRAST COMPARISON: CT abdomen pelvis 05/06/2023. Bilateral hip and pelvisradiographs 2021. FINDINGS: No evidence of metastases in the left hip or imaged pelvis. Nofracture. No significant chondromalacia involving the left hip. Minimal degenerationof the acetabular labrum without displaced tear. Tiny os acetabula. Tiny ganglion cyst at theposterior aspect of the femoral neck. Ligamentum teres is intact. Mild thickening of the posterior fibers of the distal gluteus mediustendon at its insertion on the greater trochanter. Gluteus minimus and proximal hamstrings tendons arenormal. No abnormal intramuscular signal or enhancement. Minimal degenerative change at theinferior aspect of the left SI joint. Neurovascular structures about the left hip are negative. IMPRESSION: 1. No evidence of metastatic disease in the left hip and imaged leftpelvis. 2. Minimal degenerative irregularity of the acetabular labrum. 3. Mild distal gluteus medius tendinopathy. Amy SOMMERS MRI PROCEDURES documented in this encounter Visit Diagnoses Diagnosis Pain Hip Left documented in this encounter Administered Medications Inactive Administered Medications - up to 3 most recent administrations Medication Order MAR Action Action Date Dose Rate Site gadobutrol injection 0.01-30 mL (GADAVIST) 0.01-30 mL, intravenous, Once in imaging, contrast, Starting on Fri05/07/23 at 0849, For 1 dose, Imaging Protocol Orders, Dose per Radiant Medication Guidelines Intrathecal doses greater than 0.25 mL not recommended. Given 05/07/2023 8:50 AM CDT 10 mL heparin flush 500 Units 500 Units, intra-catheter, During hospitalization, line care, Prior to discharge, Starting on Fri05/07/23 at 0802, For 1 dose, Implanted Vascular Access Device (IVAD) Venous Non-Valved: Following saline flush prior to discharge. Given 05/07/2023 9:15 AM CDT 500 Units sodium chloride (PF) 0.9 % injection 1-100 mL 1-100 mL, intravenous, Once, On Fri05/07/23 at 0915, For 1 dose, Imaging Protocol Orders Given 05/07/2023 9:15 AM CDT 10 mL documented in this encounter Additional Health Concerns Assessment Noted Time PHQ-9 Depression Total Score: 7 05/26/20 18 10:22 PM CDT documented as of this encounter Care Teams Tracer Bullet Section Supervisor Relationship Specialty Start Date End Date Elsewhere, Pcp PCP - General Internal Medicine 10/14/22 documented as of this encounter
--- OUTSIDE RECORDS SUMMARY | 2023-12-18 17:30 | XMS_ITS | Encounter Summary ---
Author Name Unknown Organization [facility] Address [address] [place] [address] Care Team Providers Care Signals Intelligence Analysis Manager Name Role Phone Elsewhere, Pcp Primary Care Provider Unavailabl e Reason for Visit * Reason Comments Med Refill Encounter Details Date Type Department Care Team (Late st Contact Info) Description 04/22/2023 Refill Department of Oncology in [place], [place] [address] [place] [address] Giorgio Fishman M.D. [address] [place] [phone] Med Refill Social History Tobacco Use Types Packs/Day Years [...] Date Recorded PHQ-2 Score 0 04/25/2019 [facility] - Occupational [...] degree (e.g., MA, MS, Ana Lilia, MEd, DRIVER RECRUITER, GORDO) 02/15/2022 Sex and Gender Information Value Date Recorded Sex Assigned at Male 04/23/2018 1:23 PM CDT Gender Identity Male 04/23/2018 1:23 PM CDT Sexual Orientation Straight 04/23/2018 1: 23 PM CDT documented as of this encounter Plan of Treatment Upcoming Encounters Date Type Department Care Team (Late st Contact Info) Description 12/23/2023 8:30 AM RETAIL BANKER Clinical Communication Virtual Review in [place], [place] [address] [place] [address] 12/24/2023 10:30 AM RETAIL BANKER Appointment Department of Radiology, [facility], in [place], [place] [address] [place] [address] Noelle Reyes P.A.-C., P.A. [address] [place] [phone] 12/24/2023 11:00 AM RETAIL BANKER Lab Department of Infusion Therapy in [place], [place] [address] [place] [phone] Noelle Reyes P.A.-C., P.A. [address] [place] [phone] 12/24/2023 2:15 PM RETAIL BANKER Office Visit Department of Palliative Care in [address] [phone] Aylin Smith APRN, C.N.P., M.S.N. [address] [place] [phone] 12/24/2023 4:10 PM RETAIL BANKER Office Visit Department of Oncology in [address] [phone] Ned Alegria M.D. [address] [place] [phone] documented as of this encounter Goals Goal Patient Goal Type Associated Problems Recent Progress Patient-Stated? Author Your pain? Symptom Management 9(11/20/2022 2:41 PM RETAIL BANKER) No Phyllis-Girma Bush, RCandidoN., O.C.N. Note: 05/24/2021: Pain algorithm completed[place] [facility] [place]: Followup 06/07 via portal per patient [...] documented as of this encounter Care Teams Signals Intelligence Analysis Manager Relationship Specialty Start Date End Date Elsewhere, Pcp PCP - General Internal Medicine 10/14/22 documented as of this encounter
--- OUTSIDE RECORDS SUMMARY | 2023-12-18 17:30 | XMS_ITS | Encounter Summary ---
Author Name Unknown Organization [facility] Address [address] [place] [address] Care Team Providers Care Felting Machine Operator Name Role Phone Elsewhere, Pcp Primary Care Provider Unavailabl e Encounter Details Date Type Department Care Team (Late st Contact Info) Description 05/06/2023 1:00 PM CDT Lab Department of Infusion Therapy in [place], [place] [address] [place] [address] Giorgio Fishman M.D. 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 Never 02/03/2023 Do you belong to [...] degree (e.g., MA, MS, Ana Lilia, MEd, MARKETING STRATEGIST, GORDO) 02/15/2022 Sex and Gender Information Value Date Recorded Sex Assigned at Male 04/23/2018 1:23 PM CDT Gender Identity Male 04/23/2018 1:23 PM CDT Sexual Orientation Straight 04/23/2018 1: 23 PM CDT documented as of this encounter Plan of Treatment Upcoming Encounters Date Type Department Care Team (Late st Contact Info) Description 12/23/2023 8:30 AM DRUPAL PROGRAMMER Clinical Communication Virtual Review in [address] [phone] 12/24/2023 10:30 AM DRUPAL PROGRAMMER Appointment Department of Radiology, [facility], in [place], [place] [address] [place] [phone] Noelle Reyes P.A.-C., P.A. [address] [place] [phone] 12/24/2023 11:00 AM DRUPAL PROGRAMMER Lab Department of Infusion Therapy in [place], [place] [address] [place] [phone] Noelle Reyes P.A.-C., P.A. [address] [place] [phone] 12/24/2023 2:15 PM DRUPAL PROGRAMMER Office Visit Department of Palliative Care in [place], [place] [address] [place], [place] [phone] Aylin Smith, CINDY, C.N.P., M.S.N. [address] [place] [phone] 12/24/2023 4:10 PM DRUPAL PROGRAMMER Office Visit Department of Oncology in [place], [place] [address] [place] [phone] Ned Alegria M.D. [address] [place] [phone] documented as of this encounter Goals Goal Patient Goal Type Associated Problems Recent Progress Patient-Stated? Author Your pain? Symptom Management 9(11/20/2022 2:41 PM DRUPAL PROGRAMMER) No Fee-Girma Bush, RCandidoN., O.C.N. Note: 05/24/2021: Pain algorithm completed. 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 ----ADDITIONAL INFORMATION---- The testing method is an immunoenzymatic assay manufactured by [employer]. and performed on the [employer] 800. ? Values obtained with different assay methods or kits may be different and cannot be used interchangeably. ? Test results cannot be interpreted as absolute evidence for the presence or absence of malignant disease. Blood (Blood, Venous) 05/06/2023 1:28 PM CDT 05/06/2023 5:55 PM CDT Giorgio Fishman M.D. LAB BLOOD ADD-ON [facility] [address] [place] [address] [facility] [address] [place] [address] * (ABNORMAL) Comprehensive Metabolic Panel (05/06/2023 1:28 PM CDT) Pathologist [facility] Potassium, S 4.3 3.6 - 5.2 mmol/L 05/06/2023 2:41 PM CDT DTL Sodium, S 139 135 - 145 mmol/L 05/06/2023 2:41 PM CDT DTL Chloride, S 104 98 - 107 mmol/L 05/06/2023 2:41 PM CDT DTL Bicarbonate, S 23 22 - 29 mmol/L 05/06/2023 2:41 PM CDT DTL Anion Gap 12 7 - 15 05/06/2023 2:41 PM CDT DTL BUN (Blood Urea Nitrogen), S 16 8 - 24 mg/dL 05/06/2023 2:41 PM CDT DTL Creatinine 0.92 0.74 - 1.35 mg/dL 05/06/2023 2:41 PM CDT DTL Estimated GFR (eGFR) >90 >=60 mL/min/BS A 05/06/2023 2:41 PM CDT DTL Comment: Estimated GFR calculated using the 2020 CKD_EPI creatinine equation. Calcium, Total, S 9.5 8.6 - 10.0 mg/dL 05/06/2023 2:41 PM CDT DTL Glucose, S 102 70 - 140 mg/dL 05/06/2023 2:41 PM CDT DTL Protein, Total, S 6.3 6.3 - 7.9 g/dL 05/06/2023 2:41 PM CDT DTL Albumin, S 4.4 3.5 - 5.0 g/dL 05/06/2023 2:41 PM CDT DTL Aspartate Aminotransferase (AST), S 41 8 - 48 U/L 05/06/2023 2:41 PM CDT DTL Alkaline Phosphatase, S 106 40 - 129 U/L 05/06/2023 2:41 PM CDT DTL Alanine Aminotransferase (ALT), S 70(H) 7 - 55 U/L 05/06/2023 2:41 PM CDT DTL Bilirubin, Total, S 0.6 <=1.2 mg/dL 05/06/2023 2:41 PM CDT DTL Blood (Blood, Venous) 05/06/2023 1:28 PM CDT 05/06/2023 2:16 PM CDT Giorgio Fishman M.D. LAB BLOOD ADD-ON [facility] [address] [place] [address], [place] D[facility] [address] [place] [address] * (ABNORMAL) CBC with Differential, Blood (05/06/2023 1:28 PM CDT) Hemoglobin 14.1 13.2 - 16.6 g/dL 05/06/2023 1:54 PM CDT DTL Hematocrit 41.8 38.3 - 48.6 % 05/06/2023 1:54 PM CDT DTL Erythrocytes 4.48 4.35 - 5.65 x10(12)/L 05/06/2023 1:54 PM CDT DTL MCV 93.3 78.2 - 97.9 fL 05/06/2023 1:54 PM CDT DTL RBC Distrib Width 17.9(H) 11.8 - 14.5 % 05/06/2023 1:54 PM CDT DTL Platelet Count 114(L) 135 - 317 x10(9)/L 05/06/2023 3:29 PM CDT DTL Comment:Results confirmed by smear, no clumping or interference seen. Leukocytes 8.6 3.4 - 9.6 x10(9)/L 05/06/2023 3:29 PM CDT DTL Neutrophils 6.66(H) 1.56 - 6.45 x10(9)/L 05/06/2023 1:54 PM CDT DTL Lymphocytes 0.63(L) 0.95 - 3.07 x10(9)/L 05/06/2023 1:54 PM CDT DTL Monocytes 1.33(H) 0.26 - 0.81 x10(9)/L 05/06/2023 1:54 PM CDT DTL Eosinophils <0.03 0.03 - 0.48 x10(9)/L 05/06/2023 1:54 PM CDT DTL Basophils <0.03 0.01 - 0.08 x10(9)/L 05/06/2023 1:54 PM CDT DTL Blood (Blood, Venous) 05/06/2023 1:28 PM CDT 05/06/2023 1:47 PM CDT Giorgio Fishman M.D. 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 For IVAD NOT accessed or used, flush every 4 weeks after 0.9% preservative-free NaCL flush. Given 05/06/2023 1:17 PM CDT 500 Units sodium chloride 0.9 % injection 10 mL 10 mL, intra-catheter, As needed, line care, Starting on 05/06/23 at 1317, When IVAD Accessed and in Use: Flush prior to and following infusion, between multiple consecutive infusions, and prior to blood sampling. Given 05/06/2023 1:17 PM CDT 10 mL sodium chloride 0.9 % injection 20 mL 20 mL, intra-catheter, As needed, line care, Starting on 05/06/23 at 1317, When IVAD Accessed and in Use: Flush post blood transfusion or post blood sampling. Given 05/06/2023 1:17 PM CDT 20 mL documented in this encounter Additional Health Concerns Assessment Noted Time PHQ-9 Depression Total Score: 7 05/26/20 18 10:22 PM CDT documented as of this encounter Care Teams Felting Machine Operator Relationship Specialty Start Date End Date Elsewhere, Pcp PCP - General Internal Medicine 10/14/22 documented as of this encounter
--- OUTSIDE RECORDS SUMMARY | 2023-12-18 17:31 | XMS_ITS | Encounter Summary ---
Author Name Unknown Organization [facility] Address [address] [place] [address] Care Team Providers Care Wide Piece Goods Inspector Name Role Phone Elsewhere, Pcp Primary Care Provider Unavailabl e Reason for Visit * Reason Onset Date Comments 02/21/23 Labs only 02/21/2023 Encounter Details Date Type Department Care Team (Latest Contact Info) Description 02/21/2023 Clinical Communication Department of Oncology in [place], [place] [address] [place] [address] Sandi Celaya M.S.N., R.N. 02/21/23 Labs only Social History Tobacco Use Types Packs/Day Years [...] often do you attend chur ch or congregation services? Never 02/03/2023 Do you belong to any clubs o r organizations such as methodist groups, unions, fraternal or athletic groups, or [...] Answer Date Recorded PHQ-2 Score 0 04/25/2019 [facility] - [...] degree (e.g., MA, MS, Ana Lilia, MEd, CHEMICAL PLANT OPERATOR SUPERVISOR, GORDO) 02/15/2022 Sex and Gender Information Value Date Recorded Sex Assigned at Male 04/23/2018 1:23 PM CDT Gender Identity Male 04/23/2018 1:23 PM CDT Sexual Orientation Straight 04/23/2018 1: 23 PM CDT documented as of this encounter Plan of Treatment Upcoming Encounters Date Type Department Care Team (Late st Contact Info) Description 12/23/2023 8:30 AM ASPHALT DAUBER Clinical Communication Virtual Review in [place], [place] [address] [place] [address] 12/24/2023 10:30 AM ASPHALT DAUBER Appointment Department of Radiology, [facility], in [place], [place] [address] [place] [address] Noelle Reyes P.A.-C., P.A. [address] [place] [phone] 12/24/2023 11:00 AM ASPHALT DAUBER Lab Department of Infusion Therapy in [place], [place] [address] [place] [phone] Noelle Reyes P.A.-C., P.A. [address] [place] [phone] 12/24/2023 2:15 PM ASPHALT DAUBER Office Visit Department of Palliative Care in [place], [place] [address] [place] [phone] Aylin Smith APRN, CCandidoN.P., M.S.N. [address] [place] [phone] 12/24/2023 4:10 PM ASPHALT DAUBER Office Visit Department of Oncology in [place], [place] [address] [place] [phone] Ned Alegria M.D. [address] [place] [phone] documented as of this encounter Goals Goal Patient Goal Type Associated Problems Recent Progress Patient-Stated? Author Your pain? Symptom Management 9(11/20/2022 2:41 PM ASPHALT DAUBER) Raisa Ferguson-Girma Bush, RCandidoN., O.C.N. Note: 05/24/2021: [...] Procedure Name Priority Date/Time Associated Diagnosis Comments HEMATOLOGY/ONCOLOGY - BLOOD, EXTERNAL LAB RESULTS Routine 02/21/2023 8:50 AM CDT documented in this encounter Results * (ABNORMAL) Hematology/Oncology - Blood, External Lab Results (02/21/2023 8:50 AM CDT) EXT Hemoglobin 14.2 13.5 - 17.5 OTHER (SPECIFY IN CAVITY PUMP OPERATOR) EXT Leukocytes 3.45(A) 4.50 - 11.00 OTHER (SPECIFY IN CAVITY PUMP OPERATOR) EXT Absolute Neutrophil Count 2.20 1.7 - 7.0 OTHER (SPECIFY IN CAVITY PUMP OPERATOR) EXT Platelet Count 108(A) 140 - 440 OTHER (SPECIFY IN CAVITY PUMP OPERATOR) EXT AST 41(A) 0.1 - 1.5 OTHER (SPECIFY IN CAVITY PUMP OPERATOR) EXT ALT 53(A) 4 - 50 OTHER (SPECIFY IN CAVITY PUMP OPERATOR) EXT Alkaline Phosphatase 92 40 - 150 OTHER (SPECIFY IN CAVITY PUMP OPERATOR) EXT Bilirubin, Total 0.6 0.1 - 1.5 mg/dL OTHER (SPECIFY IN CAVITY PUMP OPERATOR) EXT Albumin 4.0 3.3 - 5.0 g/dL OTHER (SPECIFY IN CAVITY PUMP OPERATOR) EXT Sodium 136 135 - 149 mmol/L OTHER (SPECIFY IN CAVITY PUMP OPERATOR) EXT Potassium 4.0 3.6 - 5.1 OTHER (SPECIFY IN CAVITY PUMP OPERATOR) EXT Creatinine 0.7 0.5 - 1.5 mg/dL OTHER (SPECIFY IN CAVITY PUMP OPERATOR) Blood 02/21/2023 8:50 AM CDT Historical Provider LAB BLOOD NON ADD-ON OTHER (SPECIFY IN CAVITY PUMP OPERATOR) N/A documented in this encounter Visit Diagnoses Not on filedocumented in this encounter Additional Health Concerns Assessment Noted Time PHQ-9 Depression Total Score: 7 05/26/20 18 10:22 PM CDT documented as of this encounter Care Teams Wide Piece Goods Inspector Relationship Specialty Start Date End Date Elsewhere, Pcp PCP - General Internal Medicine 10/14/22 documented as of this encounter
--- OUTSIDE RECORDS SUMMARY | 2023-12-18 17:31 | XMS_ITS | Encounter Summary ---
Author Name Unknown Organization [facility] Address [address] [place] [address] Care Team Providers Care Residential Carpenter Name Role Phone Elsewhere, Pcp Primary Care Provider Unavailabl e Reason for Visit * Reason Onset Date Comments 04/04 [facility] 04/04/2023 Encounter Details Date Type Department Care Team (Latest Contact Info) Description 04/04/2023 Clinical Communication Department of Oncology in [place], [place] [address] [place] [address] Sandi Celaya M.S.N., R.N. 04/04 [facility] Social History Tobacco Use Types Packs/Day Years [...] often do you attend chur ch or methodist services? Never 02/03/2023 Do you belong to [...] degree (e.g., MA, MS, Ana Lilia, MEd, MARKET DEVELOPMENT DIRECTOR, GORDO) 02/15/2022 Sex and Gender Information Value Date Recorded Sex Assigned at Male 04/23/2018 1:23 PM CDT Gender Identity Male 04/23/2018 1:23 PM CDT Sexual Orientation Straight 04/23/2018 1: 23 PM CDT documented as of this encounter Plan of Treatment Upcoming Encounters Date Type Department Care Team (Late st Contact Info) Description 12/23/2023 8:30 AM AIRCRAFT CAPTAIN Clinical Communication Virtual Review in [place], [place] [address] [place] [address] 12/24/2023 10:30 AM AIRCRAFT CAPTAIN Appointment Department of Radiology, [facility], in [place], [place] [address] [place] [address] Noelle Reyes P.A.-C., P.A. [address] [place] [phone] 12/24/2023 11:00 AM AIRCRAFT CAPTAIN Lab Department of Infusion Therapy in [place], [place] [address] [place] [phone] Noelle Reyes P.A.-C., P.A. [address] [place] [phone] 12/24/2023 2:15 PM AIRCRAFT CAPTAIN Office Visit Department of Palliative Care in [place], [place] [address] [place] [phone] Aylin Smith APRN, C.N.P., M.S.N. [address] [place] [phone] 12/24/2023 4:10 PM AIRCRAFT CAPTAIN Office Visit Department of Oncology in [place], [place] [address] [place] [phone] Ned Alegria M.D. [address] [place] [phone] documented as of this encounter Goals Goal Patient Goal Type Associated Problems Recent Progress Patient-Stated? Author Your pain? Symptom Management 9(11/20/2022 2:41 PM AIRCRAFT CAPTAIN) No Phyllis-Girma Bush, RCandidoN., O.C.N. Note: 05/24/2021: [...] HEMATOLOGY/ONCOLOGY - BLOOD, EXTERNAL LAB RESULTS Routine 04/04/2023 10:20 AM CDT documented in this encounter Results * (ABNORMAL) Hematology/Oncology - Blood, External Lab Results (04/04/2023 10:20 AM CDT) EXT Hemoglobin 13.5 13.5 - 17.5 OTHER (SPECIFY IN V BELT INSPECTOR) EXT Leukocytes 2.71(A) 4.50 - 11.00 OTHER (SPECIFY IN V BELT INSPECTOR) EXT Absolute Neutrophil Count 2.30 1.7 - 7.0 OTHER (SPECIFY IN V BELT INSPECTOR) EXT Platelet Count 73(A) 140 - 440 OTHER (SPECIFY IN V BELT INSPECTOR) EXT AST 38(A) 12 - 35 OTHER (SPECIFY IN V BELT INSPECTOR) EXT ALT 41 4 - 50 OTHER (SPECIFY IN V BELT INSPECTOR) EXT Alkaline Phosphatase 102 40 - 150 OTHER (SPECIFY IN V BELT INSPECTOR) EXT Bilirubin, Total 0.7 0.1 - 1.5 mg/dL OTHER (SPECIFY IN V BELT INSPECTOR) EXT Albumin 4.2 3.3 - 5.0 g/dL OTHER (SPECIFY IN V BELT INSPECTOR) EXT Sodium 137 135 - 149 mmol/L OTHER (SPECIFY IN V BELT INSPECTOR) EXT Potassium 4.4 3.6 - 5.1 OTHER (SPECIFY IN V BELT INSPECTOR) EXT Creatinine 0.7 0.5 - 1.5 mg/dL OTHER (SPECIFY IN V BELT INSPECTOR) Blood 04/04/2023 10:2 0 AM CDT Historical Provider LAB BLOOD NON ADD-ON OTHER (SPECIFY IN V BELT INSPECTOR) N/A documented in this encounter Visit Diagnoses Not on filedocumented in this encounter Additional Health Concerns Assessment Noted Time PHQ-9 Depression Total Score: 7 05/26/20 18 10:22 PM CDT documented as of this encounter Care Teams Residential Carpenter Relationship Specialty Start Date End Date Elsewhere, Pcp PCP - General Internal Medicine 10/14/22 documented as of this encounter
--- OUTSIDE RECORDS SUMMARY | 2023-12-18 17:31 | XMS_ITS | Encounter Summary ---
Author Name Unknown Organization [facility] Address [address] [place] [address] Care Team Providers Care Grain Packer Name Role Phone Elsewhere, Pcp Primary Care Provider Unavailabl e Reason for Referral * Outpatient (Routine) - Closed Specialty Diagnoses / Procedures Referred By Halima owen Referred To Contact Diagnoses Pain Neuropathic Procedures FL Thoracic Paravertebral Block Injection Right FL Thoracic Paravertebral Block Injection Right [place] PARAVERTEB BLOCK THOR SNGL [place] PARAVERTEB BLOCK THOR 2ND & ADD [place] PARAVERTEB BLOCK THOR 2ND & ADD Ella Potter M.D. 200 [place] [address] [facility] Referral ID Status Reason Start Date Expiration Date Visits Re quested Visits Authorized [id number] Closed 04/01/2023 03/31/2024 1 1 Reason for Visit * Outpatient (Routine) - Closed Specialty Diagnoses / Procedures Referred By Halima owen Referred To Contact Diagnoses Pain Neuropathic Procedures FL Thoracic Paravertebral Block Injection Right FL Thoracic Paravertebral Block Injection Right [place] PARAVERTEB BLOCK THOR SNGL [place] PARAVERTEB BLOCK THOR 2ND & ADD [place] PARAVERTEB BLOCK THOR 2ND & ADD Ella Potter M.D. [address] [place] [phone] [facility] Referral ID Status Reason Start Date Expiration Date Visits Re quested Visits Authorized [id number] Closed 04/01/2023 03/31/2024 1 1 Encounter Details Date Type Department Care Team (Latest Contact Info) Description 04/04/2023 7:21 AM CDT - 04/04/2023 11:59 PM CDT Hospital Encounter Division of Pain Medicine in [place], [place] [address] [place] [address] Ella Potter M.D. Pain Neuropathic Discharge Disposition: Home or Self Care Social [...] any clubs o r organizations such as taoist groups, unions, fraternal or athletic groups, or [...] Answer Date Recorded PHQ-2 Score 0 04/25/2019 [facility] [place] of Occupat ional Health - Occupational Stress [...] place to sleep or slept in a fci (including now)? No 02/03/2023 Nutrition Answer Date [...] degree (e.g., MA, MS, Ana Lilia, MEd, LEATHER SORTER, GORDO) 02/15/2022 Sex and Gender Information Value Date Recorded Sex Assigned at Male 04/23/2018 1:23 PM CDT Gender Identity Male 04/23/2018 1:23 PM CDT Sexual Orientation Straight 04/23/2018 1: 23 PM CDT documented as of this encounter Last Filed Vital Signs Vital Sign Reading Time Taken Comments Blood Pressure 151/118 04/04/2023 8:14 AM CDT Pulse 107 04/04/2023 8:14 AM CDT Temperature 36.3 ??C (97.3 ??F) 04/04/2023 7:41 AM CD T Respiratory Rate 16 04/04/2023 7:41 AM CDT Oxygen Saturation 98% 04/04/2023 8:14 AM CDT Inhaled Oxygen Concentration - - Weight - - Height - - Body Mass Index - - documented in this encounter Medications at Time of Discharge Medication Sig Dispensed Refills Start Date End Date cyanocobalamin (VITAMIN B12) 1,000 mcg tablet Take 1,000 mcg by mouth daily. 0 docosahexaenoic acid/epa (FISH OIL ORAL) Take 2 tablets by mouth daily. 0 TURMERIC ORAL Take 1 tablet by mouth every morning. 0 acetaminophen (TYLENOL) 500 mg tablet Take 2 [...] Take 5,000 Units by mouth daily. 0 erythromycin (ROMYCIN) 5 [...] chest pain. 25 tablet 12 05/28/2018 omega 0-sce-zcy-fish oil 1,000 mg (120 mg-180 mg) capsule Take 2 capsules by mouth. 0 05/16/2022 amLODIPine (NORVASC) 5 mg tablet Take 5 mg by mouth every morning. 0 12/28/2021 08/25/2023 gabapentin (NEURONTIN) 300 mg capsule TAKE 1 CAPSULE BY MOUTH THREE TIMES A DAY 90 capsule 3 11/26/2022 04/07/2023 pantoprazole (PROTONIX) 40 mg EC tabletIndications:Malig nant Neoplasm Of Rectum (HCC) TAKE 1 TABLET BY MOUTH EVERY DAY IN THE MORNING 90 tablet 1 03/06/2023 04/21/2023 DULoxetine (CYMBALTA) [address] capsule Take 1 capsule (60 mg total) by mouth daily. 90 capsule 3 08/09/2022 05/23/2023 HYDROmorphone (DILAUDID) 2 mg tabletIndications:Acute Pain Take [...] NOT TAKE WITH LORAZEPAM. 24 tablet 1 02/25/2023 04/22/2023 ondansetron ODT (ZOFRAN-ODT) 8 mg disintegrating tablet [...] as of this encounter Procedure Notes * Max Sylvester M.D. - 04/04/2023 8:00 AM CDTAssociated Order(s): FL Thoracic Paravertebral Block Injection Right Pre-Procedure Diagnose(s): Pain Neuropathic Post-Procedure Diagnose(s): Pain Neuropathic FL Thoracic Paravertebral Block Injection Right Performed by: Max Sylvester M.D. Authorized by: Ella Potter M.D. Care team members present 1. Tray Spears M.D., M.B.A. 2. Jayda Alexis L.P.N. PROCEDURE SUMMARY Pre-procedural pain: 8/10 Post-procedural pain: 0/10 Site: thoracic Thoracic: paravertebral nerve block Paravertebral nerve block: Right T5-T6, Right T7-T8 and Right T9-T10 Needle or RF cannula: Spinal Needle size: 22 G Needle length: 2.5 in Flow: not applicable Patient position: prone IMAGING Fluoroscopic image guidance used to localize target, identify at risk structures, and dynamically used to direct therapy to the target. Image(s) acquired and saved. INJECTED MEDICATIONS The injected medication(s) listed was divided equally between the identified injection location(s) Total volume of injectate (mL): 12 Total steroid in injectate (mg): 10 6 mL BUPivacaine 0.5 % (5 mg/mL) 10 mg dexAMETHasone 10 mg/mL 1 mL iohexoL [...] skin. The patient tolerated the procedure well. CONSENT Consent obtained: written (Risks, benefits and [...] infiltration Local infiltrate type: lidocaine ATTESTATION STATEMENT A resident or fellow participated in the procedure, and the content management consultant was present for the entire procedure. OPERATIVE NOTE INFORMATION Specimens: 0 Drains: 0 Estimated blood loss: 0 Implants: 0 If wanting definitive paravertebral spread, would highly recommend ultrasound guidance in the future. We proceeded with a fluoroscopic-only procedure as he has had excellent relief from these in the past. documented in this encounter Plan of Treatment Upcoming Encounters Date Type Department Care Team (Late st Contact Info) Description 12/23/2023 8:30 AM REO ASSET MANAGER Clinical Communication Virtual Review in [address] [address] 12/24/2023 10:30 AM REO ASSET MANAGER Appointment Department of Radiology, [facility] in [address] [phone] Noelle Reyes, P.A.-C., P.A. [address] [place] [phone] 12/24/2023 11:00 AM REO ASSET MANAGER Lab Department of Infusion Therapy in [address] [address] Noelle Reyes, P.A.-C., P.A. [address] [place] [phone] 12/24/2023 2:15 PM REO ASSET MANAGER Office Visit Department of Palliative Care in [address] [phone] Aylin Smith, SUSPECT ARTIST SUPERVISOR, C.N.P., M.S.N. [address] [place] [phone] 12/24/2023 4:10 PM REO ASSET MANAGER Office Visit Department of Oncology in [place], [place] [address] [place] [address] Ned Alegria M.D. [address] [place] [address] documented as of this encounter Goals Goal Patient Goal Type Associated Problems Recent Progress Patient-Stated? Author Your pain? Symptom Management 9(11/20/2022 2:41 PM REO ASSET MANAGER) No Fee-Girma Bush, RCandidoN., O.C.N. Note: 05/24/2021: Pain algorithm completed. [employer] [...] FL THORACIC SPINE PARAVERTEBRAL BLOCK INJECTION Routine 04/04/2023 8:14 AM CDT Pain Neuropathic documented in this encounter Results * FL Thoracic Paravertebral Block Injection Right (04/04/2023 8:14 AM CDT) Narrative Max Sylvester M.D. - 04/04/2023 8:00 AM CDT Max Sylvester M.D. ? 04/07/2023 11:54 AM FL Thoracic Paravertebral Block Injection Right Performed by: Max Sylvester M.D. Authorized by: Ella Potter M.D. ?? Care team members present 1. Tray Spears M.D., M.B.A. 2. Jayda Alexis, L.P.N. PROCEDURE SUMMARY Pre-procedural pain: 8/10 Post-procedural pain: 0/10 Site: thoracic Thoracic: paravertebral nerve block Paravertebral nerve block: Right T5-T6, Right T7-T8 and Right T9-T10 Needle or RF cannula: Spinal Needle size: 22 G Needle length: 2.5 in Flow: not applicable Patient position: prone IMAGING Fluoroscopic image guidance used to localize target, identify at risk structures, and dynamically used to direct therapy to the target. Image(s) acquired and saved. INJECTED MEDICATIONS The injected medication(s) listed was divided equally between the identified injection location(s) Total volume of injectate (mL): 12 Total steroid in injectate (mg): 10 ?? 6 mL BUPivacaine 0.5 % (5 mg/mL) 10 mg dexAMETHasone 10 mg/mL 1 mL iohexoL [...] The patient tolerated the procedure well. ?? CONSENT Consent obtained: written (Risks, benefits [...] infiltration Local infiltrate type: lidocaine ATTESTATION STATEMENT A resident or fellow participated in the procedure, and the content management consultant was present for the entire procedure. OPERATIVE NOTE INFORMATION Specimens: 0 Drains: 0 Estimated blood loss: 0 Implants: 0 Ella Potter M.D. FLUORO GUIDED PAIN PROCEDURES documented in this encounter Visit Diagnoses Diagnosis Pain Neuropathic documented in this encounter Administered Medications Inactive Administered Medications - up to 3 most recent administrations Medication Order MAR Action Action Date Dose Rate Site BUPivacaine 0.5 % (5 mg/mL) injection 6 mL (MARCAINE) 6 mL, injection, One-Time Injection, Starting on Fri04/04/23 at 0800, For 1 dose Given 04/04/2023 8:00 AM CDT 6 mL dexAMETHasone injection 10 mg (DECADRON) 10 mg, injection, One-Time Injection, Starting on Fri04/04/23 at 0800, For 1 dose Given 04/04/2023 8:00 AM CDT 10 mg iohexoL 300 mg iodine/mL solution 1 mL (OMNIPAQUE) 1 mL, injection, One-Time Injection, Starting on Fri04/04/23 at 0800, For 1 dose Given 04/04/2023 8:00 AM CDT 1 mL documented in this encounter Additional Health Concerns Assessment Noted Time PHQ-9 Depression Total Score: 7 05/26/20 18 10:22 PM CDT documented as of this encounter Care Teams Grain Packer Relationship Specialty Start Date End Date Elsewhere, Pcp PCP - General Internal Medicine 10/14/22 documented as of this encounter
--- OUTSIDE RECORDS SUMMARY | 2023-12-18 17:31 | XMS_ITS | Encounter Summary ---
Author Name Unknown Organization [facility] Address [address] [place] [address] Care Team Providers Care Color Maker Name Role Phone Elsewhere, Pcp Primary Care Provider Unavailabl e Reason for Visit * Reason Onset Date Comments 03/21 [facility] 03/21/2023 Encounter Details Date Type Department Care Team (Latest Contact Info) Description 03/21/2023 Clinical Communication Department of Oncology in [place], [place] [address] [place] [address] Giorgio Fishman M.D. [address] [place] [phone] 03/21 [facility] Social History Tobacco Use Types [...] often do you attend chur ch or orthodox services? Never 02/03/2023 Do you belong to any clubs o r organizations such as jew groups, unions, fraternal or athletic groups, or [...] Answer Date Recorded PHQ-2 Score 0 04/25/2019 [facility] - Occupational Stress Questionnaire Answer Date [...] degree (e.g., MA, MS, Ana Lilia, MEd, PROJECT FINANCE ANALYST, GORDO) 02/15/2022 Sex and Gender Information Value Date Recorded Sex Assigned at Male 04/23/2018 1:23 PM CDT Gender Identity Male 04/23/2018 1:23 PM CDT Sexual Orientation Straight 04/23/2018 1: 23 PM CDT documented as of this encounter Plan of Treatment Upcoming Encounters Date Type Department Care Team (Late st Contact Info) Description 12/23/2023 8:30 AM WOODWINDS TEACHER Clinical Communication Virtual Review in [place], [place] [address] [place] [address] 12/24/2023 10:30 AM WOODWINDS TEACHER Appointment Department of Radiology, [facility], in [place], [place] [address] [place] [address] Noelle Reyes P.A.-C., P.A. [address] [place] [address] 12/24/2023 11:00 AM WOODWINDS TEACHER Lab Department of Infusion Therapy in [place], [place] [address] [place] [phone] Noelle Reyes P.A.-C., P.A. [address] [place] [phone] 12/24/2023 2:15 PM WOODWINDS TEACHER Office Visit Department of Palliative Care in [place], [place] [address] [place] [phone] Aylin Smith, CINDY, C.N.P., M.S.N. [address] [place] [phone] 12/24/2023 4:10 PM WOODWINDS TEACHER Office Visit Department of Oncology in [place], [place] [address] [place] [phone] Ned Alegrai M.D. [address] [place] [phone] documented as of this encounter Goals Goal Patient Goal Type Associated Problems Recent Progress Patient-Stated? Author Your pain? Symptom Management 9(11/20/2022 2:41 PM WOODWINDS TEACHER) No Fee-Girma Bush, RCandidoN., O.C.N. Note: 05/24/2021: Pain algorithm completed. [facility] [...] HEMATOLOGY/ONCOLOGY - BLOOD, EXTERNAL LAB RESULTS Routine 03/21/2023 11:15 AM CDT documented in this encounter Results * (ABNORMAL) Hematology/Oncology - Blood, External Lab Results (03/21/2023 11:15 AM CDT) EXT Hemoglobin 13.6 13.5 - 17.5 OTHER (SPECIFY IN KEYPUNCHER) EXT Leukocytes 4.04(A) 4.50 - 11.00 OTHER (SPECIFY IN KEYPUNCHER) EXT Absolute Neutrophil Count 2.10 1.7 - 7.0 OTHER (SPECIFY IN KEYPUNCHER) EXT Platelet Count 86(A) 140 - 440 OTHER (SPECIFY IN KEYPUNCHER) EXT AST 34 12 - 35 OTHER (SPECIFY IN KEYPUNCHER) EXT ALT 48 4 - 50 OTHER (SPECIFY IN KEYPUNCHER) EXT Alkaline Phosphatase 107 40 - 150 OTHER (SPECIFY IN KEYPUNCHER) EXT Bilirubin, Total 0.9 0.1 - 1.5 mg/dL OTHER (SPECIFY IN KEYPUNCHER) EXT Albumin 4.2 3.3 - 5.0 g/dL OTHER (SPECIFY IN KEYPUNCHER) EXT Sodium 135 135 - 149 mmol/L OTHER (SPECIFY IN KEYPUNCHER) EXT Potassium 4.2 3.6 - 5.1 OTHER (SPECIFY IN KEYPUNCHER) EXT Creatinine 0.8 0.5 - 1.5 mg/dL OTHER (SPECIFY IN KEYPUNCHER) Blood 03/21/2023 11:1 5 AM CDT Historical Provider LAB BLOOD NON ADD-ON OTHER (SPECIFY IN KEYPUNCHER) N/A documented in this encounter Visit Diagnoses Not on filedocumented in this encounter Additional Health Concerns Assessment Noted Time PHQ-9 Depression Total Score: 7 05/26/20 18 10:22 PM CDT documented as of this encounter Care Teams Color Maker Relationship Specialty Start Date End Date Elsewhere, Pcp PCP - General Internal Medicine 10/14/22 documented as of this encounter
--- OUTSIDE RECORDS SUMMARY | 2023-12-18 17:31 | XMS_ITS | Encounter Summary ---
Author Name Unknown Organization [facility] Address [address] [place] [address] Care Team Providers Care Blister Packing Machine Tender Name Role Phone Elsewhere, Pcp Primary Care Provider Unavailabl e Reason for Visit * Reason Comments Med Refill pantoprazole Encounter Details Date Type Department Care Team ([facility] st Contact Info) Description 03/06/2023 Refill Department of Oncology in [place], [place] [address] [place] [phone] Leopoldo Renteria P.A.-C., M.S. [address] [place] [address] Med Refill (pantoprazole ) Social History Tobacco Use Types Packs/Day Years [...] often do you attend chur ch or taoist services? Never 02/03/2023 Do you belong to any clubs o r organizations such as baptist groups, unions, fraternal or athletic groups, or [...] Date Recorded PHQ-2 Score 0 04/25/2019 [facility] - Occupational Stress Questionnaire Answer Date [...] degree (e.g., MA, MS, Ana Lilia, MEd, DRY PASTE SUPERVISOR, GORDO) 02/15/2022 Sex and Gender Information Value Date Recorded Sex Assigned at Male 04/23/2018 1:23 PM CDT Gender Identity Male 04/23/2018 1:23 PM CDT Sexual Orientation Straight 04/23/2018 1: 23 PM CDT documented as of this encounter Miscellaneous Notes * Telephone Encounter - Jennie Ames - 03/06/2023 7:44 AM CDT pantoprazole Surescripts created refill request. documented in this encounter Plan of Treatment Upcoming Encounters Date Type Department Care Team (Late st Contact Info) Description 12/23/2023 8:30 AM EDITORIAL ASSISTANT Clinical Communication Virtual Review in [place], [place] [address] [place] [address] 12/24/2023 10:30 AM EDITORIAL ASSISTANT Appointment Department of Radiology, [facility], in [address] [address] Noelle Reyes P.A.-C., P.A. [address] [place] [address] 12/24/2023 11:00 AM EDITORIAL ASSISTANT Lab Department of Infusion Therapy in [address] [phone] Noelle Reyes P.A.-C., P.A. [address] [place] [address] 12/24/2023 2:15 PM EDITORIAL ASSISTANT Office Visit Department of Palliative Care in [address] [phone] Aylin Smith, CINDY, C.N.P., M.S.N. [address] [place] [phone] 12/24/2023 4:10 PM EDITORIAL ASSISTANT Office Visit Department of Oncology in [address] [phone] Ned Alegria M.D. [address] [place] [phone] documented as of this encounter Goals Goal Patient Goal Type Associated Problems Recent Progress Patient-Stated? Author Your pain? Symptom Management 9(11/20/2022 2:41 PM EDITORIAL ASSISTANT) No Fee-Girma Bush R.N., O.C.N. Note: 05/24/2021: Pain algorithm completed. [facility] 05/24/2021: Followup 06/07 via portal per patient [...] Diagnosis Malignant Neoplasm Of Rectum (HCC)- Primary documented in this encounter Additional Health Concerns Assessment Noted Time PHQ-9 Depression Total Score: 7 05/26/20 18 10:22 PM CDT documented as of this encounter Care Teams Blister Packing Machine Tender Relationship Specialty Start Date End Date Elsewhere, Pcp PCP - General Internal Medicine 10/14/22 documented as of this encounter
--- OUTSIDE RECORDS SUMMARY | 2023-12-18 17:31 | XMS_ITS | Encounter Summary ---
Author Name Unknown Organization [facility] Address [address] [place] [address] Care Team Providers Care Dry Cleaner Name Role Phone Elsewhere, Pcp Primary Care Provider Unavailabl e Reason for Visit * Reason Onset Date Comments 02/28 labs only 02/28/2023 Encounter Details Date Type Department Care Team (Latest Contact Info) Description 02/28/2023 Clinical Communication Department of Oncology in [place], [place] [address] [place] [address] Sandi Celaya M.S.N., R.N. 02/28 labs only Social History Tobacco Use Types Packs/Day [...] Answer Date Recorded PHQ-2 Score 0 04/25/2019 [facility] of Occupat ional Health - Occupational [...] place to sleep or slept in a chcf (including now)? No 02/03/2023 Nutrition Answer Date [...] degree (e.g., MA, MS, Ana Lilia, MEd, SENSITIZER, GORDO) 02/15/2022 Sex and Gender Information Value Date Recorded Sex Assigned at Male 04/23/2018 1:23 PM CDT Gender Identity Male 04/23/2018 1:23 PM CDT Sexual Orientation Straight 04/23/2018 1: 23 PM CDT documented as of this encounter Plan of Treatment Upcoming Encounters Date Type Department Care Team (Late st Contact Info) Description 12/23/2023 8:30 AM DRIVER MEDIC Clinical Communication Virtual Review in [place], [place] [address] [place] [address] 12/24/2023 10:30 AM DRIVER MEDIC Appointment Department of Radiology, [facility], in [place], [place] [address] [place] [address] Noelle Reyes P.A.-C., P.A. [address] [place] [phone] 12/24/2023 11:00 AM DRIVER MEDIC Lab Department of Infusion Therapy in [place], [place] [address] [place] [phone] Noelle Reyes P.A.-C., P.A. [address] [place] [phone] 12/24/2023 2:15 PM DRIVER MEDIC Office Visit Department of Palliative Care in [place], [place] [address] [place] [phone] Aylin Smith APRN, C.N.P., M.S.N. [address] [place] [phone] 12/24/2023 4:10 PM DRIVER MEDIC Office Visit Department of Oncology in [place], [place] [address] [place] [phone] Ned Alegria M.D. [address] [place] [phone] documented as of this encounter Goals Goal Patient Goal Type Associated Problems Recent Progress Patient-Stated? Author Your pain? Symptom Management 9(11/20/2022 2:41 PM DRIVER MEDIC) No Phyllis-Girma Bush, RCandidoN., O.C.N. Note: 05/24/2021: Pain algorithm completed. [facility] 05/24/2021: Followup 06/07 via [...] HEMATOLOGY/ONCOLOGY - BLOOD, EXTERNAL LAB RESULTS Routine 02/28/2023 8:45 AM CDT documented in this encounter Results * (ABNORMAL) Hematology/Oncology - Blood, External Lab Results (02/28/2023 8:45 AM CDT) EXT Hemoglobin 13.3(A) 13.5 - 17.5 OTHER (SPECIFY IN PSYCHIATRIST) EXT Leukocytes 6.59 4.50 - 11.00 OTHER (SPECIFY IN PSYCHIATRIST) EXT Absolute Neutrophil Count 5.10 1.7 - 7.0 OTHER (SPECIFY IN PSYCHIATRIST) EXT Platelet Count 110(A) 140 - 440 OTHER (SPECIFY IN PSYCHIATRIST) EXT AST 33 12 - 35 OTHER (SPECIFY IN PSYCHIATRIST) EXT ALT 55(A) 4 - 50 OTHER (SPECIFY IN PSYCHIATRIST) EXT Alkaline Phosphatase 93 40 - 150 OTHER (SPECIFY IN PSYCHIATRIST) EXT Bilirubin, Total 0.8 0.1 - 1.5 mg/dL OTHER (SPECIFY IN PSYCHIATRIST) EXT Albumin 4.0 3.3 - 5.0 g/dL OTHER (SPECIFY IN PSYCHIATRIST) EXT Sodium 136 135 - 149 mmol/L OTHER (SPECIFY IN PSYCHIATRIST) EXT Potassium 4.1 3.6 - 5.1 OTHER (SPECIFY IN PSYCHIATRIST) EXT Creatinine 0.7 0.5 - 1.5 mg/dL OTHER (SPECIFY IN PSYCHIATRIST) Blood 02/28/2023 8:45 AM CDT Historical Provider LAB BLOOD NON ADD-ON OTHER (SPECIFY IN PSYCHIATRIST) N/A documented in this encounter Visit Diagnoses Not on filedocumented in this encounter Additional Health Concerns Assessment Noted Time PHQ-9 Depression Total Score: 7 05/26/20 18 10:22 PM CDT documented as of this encounter Care Teams Dry Cleaner Relationship Specialty Start Date End Date Elsewhere, Pcp PCP - General Internal Medicine 10/14/22 documented as of this encounter
--- OUTSIDE RECORDS SUMMARY | 2023-12-18 17:31 | XMS_ITS | Encounter Summary ---
Author Name Unknown Organization [facility] Address [address] [place] [address] Care Team Providers Care Supervisor Vendor Quality Name Role Phone Elsewhere, Pcp Primary Care Provider Unavailabl e Reason for Visit * Reason Comments Med Refill OLANZapine Encounter Details Date Type Department Care Team (Late st Contact Info) Description 04/21/2023 Refill Department of Oncology in [place], [place] [address] [place] [address] Giorgio Fishman M.D. [address] [place] [phone] Med Refill (OLANZapine) Social History Tobacco Use Types Packs/Day Years [...] often do you attend chur ch or mosque services? Never 02/03/2023 Do you belong to [...] degree (e.g., MA, MS, Ana Lilia, MEd, CONTROL SYSTEMS DEVELOPER, GORDO) 02/15/2022 Sex and Gender Information Value Date Recorded Sex Assigned at Male 04/23/2018 1:23 PM CDT Gender Identity Male 04/23/2018 1:23 PM CDT Sexual Orientation Straight 04/23/2018 1: 23 PM CDT documented as of this encounter Plan of Treatment Upcoming Encounters Date Type Department Care Team (Late st Contact Info) Description 12/23/2023 8:30 AM DEBURRING MACHINE OPERATOR Clinical Communication Virtual Review in [place], [place] [address] [place] [address] 12/24/2023 10:30 AM DEBURRING MACHINE OPERATOR Appointment Department of Radiology, [facility], in [place], [place] [address] [place] [address] Noelle Reyes P.A.-C., P.A. [address] [place] [phone] 12/24/2023 11:00 AM DEBURRING MACHINE OPERATOR Lab Department of Infusion Therapy in [place], [place] [address] [place] [phone] Noelle Reyes P.A.-C., P.A. [address] [place] [phone] 12/24/2023 2:15 PM DEBURRING MACHINE OPERATOR Office Visit Department of Palliative Care in [place], [place] [address] [place] [phone] Aylin Smith APRN CCandidoNCandidoP., M.S.N. [address] [place] [phone] 12/24/2023 4:10 PM DEBURRING MACHINE OPERATOR Office Visit Department of Oncology in [place], [place] [address] [place] [phone] Ned Alegria M.D. [address] [place] [phone] documented as of this encounter Goals Goal Patient Goal Type Associated Problems Recent Progress Patient-Stated? Author Your pain? Symptom Management 9(11/20/2022 2:41 PM DEBURRING MACHINE OPERATOR) Raisa Ferguson-Girma Bush, R.N., O.C.N. Note: 05/24/2021: Pain algorithm [...] documented as of this encounter Care Teams Supervisor Vendor Quality Relationship Specialty Start Date End Date Elsewhere, Pcp PCP - General Internal Medicine 10/14/22 documented as of this encounter
--- OUTSIDE RECORDS SUMMARY | 2023-12-18 17:31 | XMS_ITS | Encounter Summary ---
Author Name Unknown Organization [facility] Address [address] [place] [address] Care Team Providers Care Dinkey Motor Operator Name Role Phone Elsewhere, Pcp Primary Care Provider Unavailabl e Reason for Visit * Reason Comments Med Refill OLANZapine Encounter Details Date Type Department Care Team (Late st Contact Info) Description 02/23/2023 Refill Department of Oncology in [place], [place] [address] [place] [address] Giorgio Fishman M.D. [address] [place] [phone] Med Refill (OLANZapine) Social History Tobacco Use [...] Answer Date Recorded PHQ-2 Score 0 04/25/2019 [facility] - Occupational [...] degree (e.g., MA, MS, Ana Lilia, MEd, ON CAR SUPERVISOR, GORDO) 02/15/2022 Sex and Gender Information Value Date Recorded Sex Assigned at Male 04/23/2018 1:23 PM CDT Gender Identity Male 04/23/2018 1:23 PM CDT Sexual Orientation Straight 04/23/2018 1: 23 PM CDT documented as of this encounter Plan of Treatment Upcoming Encounters Date Type Department Care Team (Late st Contact Info) Description 12/23/2023 8:30 AM PROCESS TECH Clinical Communication Virtual Review in [place], [place] [address] [place] [address] 12/24/2023 10:30 AM PROCESS TECH Appointment Department of Radiology, [facility], in [place], [place] [address] [place] [address] Noelle Reyes P.A.-C., P.A. [address] [place] [phone] 12/24/2023 11:00 AM PROCESS TECH Lab Department of Infusion Therapy in [place], [place] [address] [place] [phone] Noelle Reyes P.A.-C., P.A. [address] [place] [phone] 12/24/2023 2:15 PM PROCESS TECH Office Visit Department of Palliative Care in [place], [place] [address] [place] [phone] Aylin Smith APRN CCandidoNCandidoP., M.S.N. [address] [place] [phone] 12/24/2023 4:10 PM PROCESS TECH Office Visit Department of Oncology in [place], [place] [address] [place] [phone] Ned Alegria M.D. [address] [place] [phone] documented as of this encounter Goals Goal Patient Goal Type Associated Problems Recent Progress Patient-Stated? Author Your pain? Symptom Management 9(11/20/2022 2:41 PM PROCESS TECH) Raisa Ferguson-Girma Bush, R.N., O.C.N. Note: 05/24/2021: [...] documented as of this encounter Care Teams Dinkey Motor Operator Relationship Specialty Start Date End Date Elsewhere, Pcp PCP - General Internal Medicine 10/14/22 documented as of this encounter
--- OUTSIDE RECORDS SUMMARY | 2023-12-18 17:31 | XMS_ITS | Encounter Summary ---
Author Name Unknown Organization [facility] Address [address] [place] [address] Care Team Providers Care Army Ranger Name Role Phone Elsewhere, Pcp Primary Care Provider Unavailabl e Reason for Referral * MRI/CAT/PET Scan (Routine) - Closed Specialty Diagnoses / Procedures Referred By Halima t Referred To Contact Radiology Diagnoses Pain Hip Left Procedures MR Hip Left without and with IV Contrast Amy Neff M.D. [address] [place] [address] [facility] Referral ID Status Reason Start Date Expiration Date Visits Re quested Visits Authorized [id number] Closed 04/15/2023 04/14/2024 1 1 Encounter Details Date Type Department Care Team (Late st Contact Info) Description 04/15/2023 Orders Only Department of Oncology in [place], [place] [address] [place] [phone] Amy Neff M.D. [address] [place] [phone] Pain Hip Left (Primary Dx) Social History Tobacco Use Types [...] How often do you attend [facility] or jain services? Never 02/03/2023 Do you belong to any clubs o r organizations such as adventist groups, unions, fraternal or athletic groups, or [...] Date Recorded PHQ-2 Score 0 04/25/2019 [facility] Occupat ional [facility] - Occupational Stress [...] degree (e.g., MA, MS, Ana Lilia, MEd, PHYSICAL THERAPY NURSE, GORDO) 02/15/2022 Sex and Gender Information Value Date Recorded Sex Assigned at Male 04/23/2018 1:23 PM CDT Gender Identity Male 04/23/2018 1:23 PM CDT Sexual Orientation Straight 04/23/2018 1: 23 PM CDT documented as of this encounter Plan of Treatment Upcoming Encounters Date Type Department Care Team (Late st Contact Info) Description 12/23/2023 8:30 AM JUDO TEACHER Clinical Communication Virtual Review in [place], [place] [address] [place] [address] 12/24/2023 10:30 AM JUDO TEACHER Appointment Department of Radiology, [facility] in [place], [place] [address] [place] [phone] Noelle Reyes P.A.-C., P.A. [address] [place] [phone] 12/24/2023 11:00 AM JUDO TEACHER Lab Department of Infusion Therapy in [place], [place] [address] [place] [phone] Noelle Reyes P.A.-C., P.A. [address] [place] [phone] 12/24/2023 2:15 PM JUDO TEACHER Office Visit Department of Palliative Care in [address] [phone] Aylin Smith, CINDY, C.N.P., M.S.N. [address] [place] [phone] 12/24/2023 4:10 PM JUDO TEACHER Office Visit Department of Oncology in [place], [place] [address] [place] [phone] Ned Alegria M.D. [address] [place] [phone] documented as of this encounter Goals Goal Patient Goal Type Associated Problems Recent Progress Patient-Stated? Author Your pain? Symptom Management 9(11/20/2022 2:41 PM JUDO TEACHER) No Fee-Girma Bush, R.N., O.C.N. Note: 05/24/2021: Pain algorithm completed. [facility] 05/24/2021: Followup 06/07 via portal [...] as of this encounter Results * MR Hip Left [...] this encounter Visit Diagnoses Diagnosis Pain Hip Left- Primary Pain Hip Left documented in this encounter Additional Health Concerns Assessment Noted Time PHQ-9 Depression Total Score: 7 05/26/20 18 10:22 PM CDT documented as of this encounter Care Teams Army Ranger Relationship Specialty Start Date End Date Elsewhere, Pcp PCP - General Internal Medicine 10/14/22 documented as of this encounter
--- OUTSIDE RECORDS SUMMARY | 2023-12-18 17:31 | XMS_ITS | Encounter Summary ---
Author Name Unknown Organization [facility] Address [address] [place] [address] Care Team Providers Care Rn Team Leader Name Role Phone Elsewhere, Pcp Primary Care Provider Unavailabl e Reason for Visit * Reason Comments Med Refill gabapentin Encounter Details Date Type Department Care Team (Late st Contact Info) Description 04/06/2023 Refill Department of Oncology in [place], [place] [address] [place] [address] Giorgio Fishman M.D. [address] [place] [phone] Med Refill (gabapentin ) Social History Tobacco Use Types Packs/Day [...] often do you attend chur ch or judaism services? Never 02/03/2023 Do you belong to [...] degree (e.g., MA, MS, Ana Lilia, MEd, BANK BOSS, GORDO) 02/15/2022 Sex and Gender Information Value Date Recorded Sex Assigned at Male 04/23/2018 1:23 PM CDT Gender Identity Male 04/23/2018 1:23 PM CDT Sexual Orientation Straight 04/23/2018 1: 23 PM CDT documented as of this encounter Plan of Treatment Upcoming Encounters Date Type Department Care Team (Late st Contact Info) Description 12/23/2023 8:30 AM COMPLAINT COORDINATOR Clinical Communication Virtual Review in [place], [place] [address] [place] [address] 12/24/2023 10:30 AM COMPLAINT COORDINATOR Appointment Department of Radiology, [facility], in [place], [place] [address] [place] [address] Noelle Reyes P.A.-C., P.A. [address] [place] [phone] 12/24/2023 11:00 AM COMPLAINT COORDINATOR Lab Department of Infusion Therapy in [place], [place] [address] [place] [phone] Noelle Reyes P.A.-C., P.A. [address] [place] [phone] 12/24/2023 2:15 PM COMPLAINT COORDINATOR Office Visit Department of Palliative Care in [place], [place] [address] [place] [phone] Aylin Smith APRN CCandidoNCandidoP., M.S.N. [address] [place] [phone] 12/24/2023 4:10 PM COMPLAINT COORDINATOR Office Visit Department of Oncology in [place], [place] [address] [place] [phone] Ned Alegria M.D. [address] [place] [phone] documented as of this encounter Goals Goal Patient Goal Type Associated Problems Recent Progress Patient-Stated? Author Your pain? Symptom Management 9(11/20/2022 2:41 PM COMPLAINT COORDINATOR) Raisa Ferguson-Girma Bush, R.N., O.C.N. Note: 05/24/2021: Pain algorithm completed. 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
--- OUTSIDE RECORDS SUMMARY | 2023-12-18 17:31 | XMS_ITS | Encounter Summary ---
Author Name Unknown Organization [facility] Address [address] [place] [address] Care Team Providers Care Developer Analyst Name Role Phone Elsewhere, Pcp Primary Care Provider Unavailabl e Reason for Visit * Reason Onset Date Comments 03-07-2023 Labs Only 03/07/2023 Encounter Details Date Type Department Care Team (Latest Contact Info) Description 03/07/2023 Clinical Communication Department of Oncology in [place], [place] [address] [place] [address] Leopoldo Renteria P.A.-C., M.S. [address] [place] [phone] 03-07-2023 Labs Only Social History Tobacco Use Types Packs/Day Years [...] Answer Date Recorded PHQ-2 Score 0 04/25/2019 [facility] of Occupat ional Health [...] degree (e.g., MA, MS, Ana Lilia, MEd, BUILDING MAINTENANCE WORKER, GORDO) 02/15/2022 Sex and Gender Information Value Date Recorded Sex Assigned at Male 04/23/2018 1:23 PM CDT Gender Identity Male 04/23/2018 1:23 PM CDT Sexual Orientation Straight 04/23/2018 1: 23 PM CDT documented as of this encounter Plan of Treatment Upcoming Encounters Date Type Department Care Team (Late st Contact Info) Description 12/23/2023 8:30 AM VAT PACKER Clinical Communication Virtual Review in [place], [place] [address] [place] [address] 12/24/2023 10:30 AM VAT PACKER Appointment Department of Radiology, [facility], in [place], [place] [address] [place] [phone] Noelle Reyes P.A.-C., P.A. [address] [place] [phone] 12/24/2023 11:00 AM VAT PACKER Lab Department of Infusion Therapy in [place], [place] [address] [place] [phone] Noelle Reyes P.A.-C., P.A. 1 [place] [phone] 12/24/2023 2:15 PM VAT PACKER Office Visit Department of Palliative Care in [place], [place] [address] [place] [phone] Aylin Smith APRN, C.N.P., M.S.N. [address] [place] [phone] 12/24/2023 4:10 PM VAT PACKER Office Visit Department of Oncology in [place], [place] [address] [place] [phone] Ned Alegria M.D. [address] [place] [phone] documented as of this encounter Goals Goal Patient Goal Type Associated Problems Recent Progress Patient-Stated? Author Your pain? Symptom Management 9(11/20/2022 2:41 PM VAT PACKER) No Fee-Girma Bush, R.N., O.C.N. Note: 05/24/2021: Pain algorithm completed. [facility] [...] HEMATOLOGY/ONCOLOGY - BLOOD, EXTERNAL LAB RESULTS Routine 03/07/2023 9:05 AM CDT documented in this encounter Results * (ABNORMAL) Hematology/Oncology - Blood, External Lab Results (03/07/2023 9:05 AM CDT) EXT Hemoglobin 13.6 13.5 - 17.5 OTHER (SPECIFY IN CONTACT WORKER LITHOGRAPHY) EXT Leukocytes 3.38(A) 4.50 - 11.00 OTHER (SPECIFY IN CONTACT WORKER LITHOGRAPHY) EXT Absolute Neutrophil Count 1.90 1.7 - 7.0 OTHER (SPECIFY IN CONTACT WORKER LITHOGRAPHY) EXT Platelet Count 121(A) 140 - 440 OTHER (SPECIFY IN CONTACT WORKER LITHOGRAPHY) EXT AST 32 12 - 35 OTHER (SPECIFY IN CONTACT WORKER LITHOGRAPHY) EXT ALT 37 4 - 50 OTHER (SPECIFY IN CONTACT WORKER LITHOGRAPHY) EXT Alkaline Phosphatase 89 40 - 150 OTHER (SPECIFY IN CONTACT WORKER LITHOGRAPHY) EXT Bilirubin, Total 0.7 0.1 - 1.5 mg/dL OTHER (SPECIFY IN CONTACT WORKER LITHOGRAPHY) EXT Albumin 3.9 3.3 - 5.0 g/dL OTHER (SPECIFY IN CONTACT WORKER LITHOGRAPHY) EXT Sodium 134(A) 135 - 149 mmol/L OTHER (SPECIFY IN CONTACT WORKER LITHOGRAPHY) EXT Potassium 4.1 3.6 - 5.1 OTHER (SPECIFY IN CONTACT WORKER LITHOGRAPHY) EXT Creatinine 0.7 0.5 - 1.5 mg/dL OTHER (SPECIFY IN CONTACT WORKER LITHOGRAPHY) Blood 03/07/2023 9:05 AM CDT Historical Provider LAB BLOOD NON ADD-ON OTHER (SPECIFY IN CONTACT WORKER LITHOGRAPHY) N/A documented in this encounter Visit Diagnoses Not on filedocumented in this encounter Additional Health Concerns Assessment Noted Time PHQ-9 Depression Total Score: 7 05/26/20 18 10:22 PM CDT documented as of this encounter Care Teams Developer Analyst Relationship Specialty Start Date End Date Elsewhere, Pcp PCP - General Internal Medicine 10/14/22 documented as of this encounter
--- OUTSIDE RECORDS SUMMARY | 2023-12-18 17:31 | XMS_ITS | Encounter Summary ---
Author Name Unknown Organization [facility] Address [address] [place] [address] Care Team Providers Care Manager Of Supply Chain Name Role Phone Elsewhere, Pcp Primary Care Provider Unavailabl e Reason for Visit * Reason Comments Med Refill pantoprazole Encounter Details Date Type Department Care Team ([facility] st Contact Info) Description 04/21/2023 Refill Department of Oncology in [place], [place] [address] [place] [phone] Leopoldo Renteria P.A.-C., M.S. [address] [place] [address] Med Refill (pantoprazole ) Social History Tobacco [...] Answer Date Recorded PHQ-2 Score 0 04/25/2019 [facility] - Occupational Stress Questionnaire Answer Date [...] (e.g., MA, MS, Ana Lilia, MEd, DIRECTOR DIGITAL, GORDO) 02/15/2022 Sex and Gender Information Value Date Recorded Sex Assigned at Male 04/23/2018 1:23 PM CDT Gender Identity Male 04/23/2018 1:23 PM CDT Sexual Orientation Straight 04/23/2018 1: 23 PM CDT documented as of this encounter Plan of Treatment Upcoming Encounters Date Type Department Care Team (Late st Contact Info) Description 12/23/2023 8:30 AM SPINNER OPEN END Clinical Communication Virtual Review in [place], [place] [address] [place] [address] 12/24/2023 10:30 AM SPINNER OPEN END Appointment Department of Radiology, [facility], in [place], [place] [address] [place] [address] Noelle Reyes P.A.-C., P.A. [address] [place] [phone] 12/24/2023 11:00 AM SPINNER OPEN END Lab Department of Infusion Therapy in [place], [place] [address] [place] [address] Noelle Reyes P.A.-C., P.A. [address] [place] [phone] 12/24/2023 2:15 PM SPINNER OPEN END Office Visit Department of Palliative Care in [place], [place] [address] [place] [phone] Aylin Smith, CINDY, C.N.P., M.S.N. [address] [place] [phone] 12/24/2023 4:10 PM SPINNER OPEN END Office Visit Department of Oncology in [place], [place] [address] [place] [phone] Ned Alegria M.D. [address] [place] [phone] documented as of this encounter Goals Goal Patient Goal Type Associated Problems Recent Progress Patient-Stated? Author Your pain? Symptom Management 9(11/20/2022 2:41 PM SPINNER OPEN END) No Fee-Girma Bush, R.N., O.C.N. Note: 05/24/2021: Pain algorithm completed. [facility] 05/24/2021: Followup 06/07 via [...] as of this encounter Care Teams Manager Of Supply Chain Relationship Specialty Start Date End Date Elsewhere, Pcp PCP - General Internal Medicine 10/14/22 documented as of this encounter
--- OUTSIDE RECORDS SUMMARY | 2023-12-18 17:31 | XMS_ITS | Encounter Summary ---
Author Name Unknown Organization [facility] Address [address] [place] [address] Care Team Providers Care [facility] Name Role Phone Elsewhere, Pcp Primary Care Provider Unavailabl e Reason for Visit * Reason Onset Date Comments 03/14/23 Labs Only 03/14/2023 Encounter Details Date Type Department Care Team (Latest Contact Info) Description 03/14/2023 Clinical Communication Department of Oncology in [place], [place] [address] [place] [address] Sandi Celaya M.S.N., R.N. 03/14/23 Labs Only Social History Tobacco Use Types [...] often do you attend chur ch or rastafarian services? Never 02/03/2023 Do you belong to [...] degree (e.g., MA, MS, Ana Lilia, MEd, IMPORT/EXPORT ANALYST, GORDO) 02/15/2022 Sex and Gender Information Value Date Recorded Sex Assigned at Male 04/23/2018 1:23 PM CDT Gender Identity Male 04/23/2018 1:23 PM CDT Sexual Orientation Straight 04/23/2018 1: 23 PM CDT documented as of this encounter Plan of Treatment Upcoming Encounters Date Type Department Care Team (Late st Contact Info) Description 12/23/2023 8:30 AM MOSAIC TILER Clinical Communication Virtual Review in [place], [place] [address] [place] [address] 12/24/2023 10:30 AM MOSAIC TILER Appointment Department of Radiology, [facility], in [place], [place] [address] [place] [address] Noelle Reyes P.A.-C., P.A. [address] [place] [phone] 12/24/2023 11:00 AM MOSAIC TILER Lab Department of Infusion Therapy in [place], [place] [address] [place] [phone] Noelle Reyes P.A.-C., P.A. [address] [place] [phone] 12/24/2023 2:15 PM MOSAIC TILER Office Visit Department of Palliative Care in [place], [place] [address] [place] [phone] Aylin Smith APRN, CCandidoN.P., M.S.N. [address] [place] [phone] 12/24/2023 4:10 PM MOSAIC TILER Office Visit Department of Oncology in [place], [place] [address] [place] [phone] Ned Alegria M.D. [address] [place] [phone] documented as of this encounter Goals Goal Patient Goal Type Associated Problems Recent Progress Patient-Stated? Author Your pain? Symptom Management 9(11/20/2022 2:41 PM MOSAIC TILER) Raisa Ferguson-Girma Bush, RCandidoN., O.C.N. Note: 05/24/2021: Pain algorithm completed. [facility] 05/24/2021: Followup 06/07 [...] HEMATOLOGY/ONCOLOGY - BLOOD, EXTERNAL LAB RESULTS Routine 03/14/2023 8:30 AM CDT documented in this encounter Results * (ABNORMAL) Hematology/Oncology - Blood, External Lab Results (03/14/2023 8:30 AM CDT) EXT Hemoglobin 13.3(A) 13.5 - 17.5 OTHER (SPECIFY IN HAIRSPRING ADJUSTER) EXT Leukocytes 3.16(A) 4.50 - 11.00 OTHER (SPECIFY IN HAIRSPRING ADJUSTER) EXT Absolute Neutrophil Count 1.50(A) 1.7 - 7.0 OTHER (SPECIFY IN HAIRSPRING ADJUSTER) EXT Platelet Count 107(A) 140 - 440 OTHER (SPECIFY IN HAIRSPRING ADJUSTER) EXT AST 34 12 - 35 OTHER (SPECIFY IN HAIRSPRING ADJUSTER) EXT ALT 44 4 - 50 OTHER (SPECIFY IN HAIRSPRING ADJUSTER) EXT Alkaline Phosphatase 105 40 - 150 OTHER (SPECIFY IN HAIRSPRING ADJUSTER) EXT Bilirubin, Total 0.7 0.1 - 1.5 mg/dL OTHER (SPECIFY IN HAIRSPRING ADJUSTER) EXT Albumin 4.0 3.3 - 5.0 g/dL OTHER (SPECIFY IN HAIRSPRING ADJUSTER) EXT Sodium 136 135 - 149 mmol/L OTHER (SPECIFY IN HAIRSPRING ADJUSTER) EXT Potassium 4.2 3.6 - 5.1 OTHER (SPECIFY IN HAIRSPRING ADJUSTER) EXT Creatinine 0.8 0.5 - 1.5 mg/dL OTHER (SPECIFY IN HAIRSPRING ADJUSTER) Blood 03/14/2023 8:30 AM CDT Historical Provider LAB BLOOD NON ADD-ON OTHER (SPECIFY IN HAIRSPRING ADJUSTER) N/A documented in this encounter Visit Diagnoses Not on filedocumented in this encounter Additional Health Concerns Assessment Noted Time PHQ-9 Depression Total Score: 7 05/26/20 18 10:22 PM CDT documented as of this encounter Care Teams [facility]keeper [facility] Relationship Specialty Start Date End Date Elsewhere, Pcp PCP - General Internal Medicine 10/14/22 documented as of this encounter
--- OUTSIDE RECORDS SUMMARY | 2023-12-18 17:32 | XMS_ITS | Encounter Summary ---
Author Name Unknown Organization [facility] Address [address] [place] [id number] Care Team Providers Care Masonry Installer Name Role Phone Elsewhere, Pcp Primary Care Provider Unavailabl e Reason for Visit * Outpatient (Routine) - Closed Specialty Diagnoses / Procedures Referred By Contlucas t Referred To Contact Pain Medicine Ella Potter M.D. [address] [place] [phone] [facility] Referral ID Status Reason Start Date Expiration Date Visits Re quested Visits Authorized [id number] Closed 10/16/2022 10/15/2025 1 1 Encounter Details Date Type Department Care Team (Late st Contact Info) Description 02/03/2023 2:00 PM CDT Office Visit Division of Pain Medicine in [place], [place] [address] [place] [phone] Ella Potter M.D. Pain Lumbar Myofascial (Primary Dx); Malignant Neoplasm Of Rectum (HCC); Pain Chest Wall; Pain Low Back Chronic Social History Tobacco Use Types Packs/Day [...] 02/03/2023 How often do you attend chur [employer] or zoroastrian services? Never 02/03/2023 Do you belong to any clubs o r organizations such as buddhist groups, unions, fraternal or athletic groups, or [...] Answer Date Recorded PHQ-2 Score 0 04/25/2019 [facility] of Occupat ional Health - Occupational Stress [...] degree (e.g., MA, MS, Ana Lilia, MEd, IMPLEMENTATION ARCHITECT, GORDO) 02/15/2022 Sex and Gender Information Value Date Recorded Sex Assigned at Male 04/23/2018 1:23 PM CDT Gender Identity Male 04/23/2018 1:23 PM CDT Sexual Orientation Straight 04/23/2018 1: 23 PM CDT documented as of this encounter Last Filed Vital Signs Vital Sign Reading Time Taken Comments Blood Pressure 149/93 02/03/2023 1:37 PM CDT Pulse 126 02/03/2023 1:37 PM CDT Temperature - - Respiratory Rate - - Oxygen Saturation - - Inhaled Oxygen Concentration - - Weight - - Height - - Body Mass Index - - documented in this encounter Progress Notes * Ella Potter M.D. - 02/03/2023 2:00 PM CDT PAIN CLINIC FOLLOW UP VISIT Mr. Tabares returns for follow up with me today regarding his right thoracic chest wall pain in the setting of prior thoracotomy. He has a history notable for metastatic rectal cancer. He was last evaluated by me on 10/16/22 HISTORY OF PRESENT ILLNESS Overall, he reports right thoracic chest wall pain has significantly improved and is not a concern for him at the moment. He notes that his chest wall pain and left low back pain significantly improved with systemic steroid during his latest chemotherapy. He notes that the left low back pain has started to come back. He notes that it is worst with adjusting position. He describes it as a dull achy, sometimes sharp pain that is worst with movement. He denies any radiation of pain down his leg, no numbness or tingling, and no weakness. His pain pattern of his left low back is unchanged since his prior visit with me. MANAGEMENT Current Medications: Gabapentin 300 mg t.i.d. Hydromorphone 2 mg p.r.n. Duloxetine 60mg Previous Injections: -Repeat Right paravertebral injection: continued relief through today -Right Paravertebral-significant relief for 9 weeks -T5 intercostal block -TPI over thoracotomy scar REVIEW OF SYSTEMS Luis Tabares's history was reviewed including allergies, current medications, review of systems, family history, medical and surgical history, social history, and problem list. OBJECTIVE PHYSICAL EXAM PHYSICAL EXAM GENERAL: Alert, oriented, and answering questions appropriately. SKIN: No gross rashes or lesions present. SPINE: There was good range of motion. Tenderness to deep palpation on the left side near the lumbosacral junction as well as the left medial aspect of the iliac crest. No tenderness over the SI joints bilaterally. No tenderness over the trochanteric bursa or ischial bursae bilaterally. Worsening of pain with lateral rotation to the left and extension at the level of the lumbosacral junction. MUSCULOSKELETAL: No paraspinal tenderness. Tenderness over the PSIS NEURO: Strength was intact throughout. Gait was nonantalgic DIAGNOSTICS I have reviewed the imaging MR Abdomen 11/06/22 IMPRESSION: 1. At least 6 hepatic lesions are new since 06/26/2022 and suspicious for metastases. 2. Likely metastatic portocaval and periceliac lymph nodes have increased from 06/26/22. Lumbar Dx 10/25/22 IMPRESSION: Slightly narrowed L5 interspace. Minimal degenerative change both SI joints. No evidence of sacroiliitis. Tiny bilateral os acetabuli. Anastomotic surgical shawn in the pelvis and abdomen. 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 Tabares. I am pleased with his overall response to the paravertebral injections and his ongoing pain relief in his right thoracic chest wall. His main concern is his left lumbosacral pain. It does appear to be over the PSIS, but this also may represent facetogenic pain, SI involvement or cluneal nerve involvement as it does ride up the medial aspect of his crest. I discussed that I would like to avoid further steroid injections when he is planning on repeat chemotherapy and systemic steroid in February. I discussed trialing dry needling to see if that provides benefit. It does appear to be more musculoskeletal in nature and his xrays are reassuring of this area. He will trial dry needling and we will plan for a follow up visit in 3 months to discuss possible PSIS injection, v MBB RFA v SI joint injection v cluneal nerve block >Advanced Imaging Recommendations: -At this time, the patient does not require further imaging CHANGES TO CURRENT TREATMENT REGIMEN: > Conservative Measures: -I encouraged him to trial dry needling at the site of his psis on the left. He will trial this over the next couple months and see if he notes any improvement in his pain symptoms > Medication Recommendations: -he will continue on duloxetine, encouraged him to reach out if he needs refills for this. > Interventional Procedural Consideration: -in the future we can consider a left PSIS trigger point injection -I would recommend starting with a left PSIS trigger point injection as this does appear to be myofascial in nature -he may also benefit from possible L4-5, L5-S1 MBB to RFA though his pain is quite localized and heis tender to palpation -based on his location too he may benefit from SI joint injection though his symptoms aren't classical consistent with sacroiliitis -he also has pain over his iliac crest so may consider cluneal nerve involvement FOLLOW-UP: 3 months or sooner if needed I provided an opportunity to ask questions, and questions were answered to the best of my ability. The plan and assessment was discussed in detail with Dr. Garcia, Pain Medicine Pole Framer, who is in agreement with the above. Ella Potter MD Pain Medicine Fellow I personally spent 25 minutes in care of the patient today. Time includes both non face to face andface to face patient care. documented in this encounter Plan of Treatment Upcoming Encounters Date Type Department Care Team (Late st Contact Info) Description 12/23/2023 8:30 AM DRY CLEANING SUPERVISOR Clinical Communication Virtual Review in [place], [place] [address] [place] [address] 12/24/2023 10:30 AM DRY CLEANING SUPERVISOR Appointment Department of Radiology, [facility], in [address] [phone] Noelle Reyes P.A.EmileC., P.A. [address] [place] [address] 12/24/2023 11:00 AM DRY CLEANING SUPERVISOR Lab Department of Infusion Therapy in [address] [phone] Noelle Reyes P.A.-C., P.A. [address] [place] [address] 12/24/2023 2:15 PM DRY CLEANING SUPERVISOR Office Visit Department of Palliative Care in [place], [place] [address] [place] [address] Aylin Smith, CINDY, C.N.P., M.S.N. [address] [place] [phone] 12/24/2023 4:10 PM DRY CLEANING SUPERVISOR Office Visit Department of Oncology in [place], [place] [address] [place] [phone] Ned Alegria M.D. [address] [place] [phone] documented as of this encounter Goals Goal Patient Goal Type Associated Problems Recent Progress Patient-Stated? Author Your pain? Symptom Management 9(11/20/2022 2:41 PM DRY CLEANING SUPERVISOR) No Phyllis-Girma Bush R.N., O.C.N. Note: 05/24/2021: [...] after initial assessment and spoke with Dr. Pitot. He was switched over to oxycodone and [...] of this encounter Visit Diagnoses Diagnosis Pain Lumbar Myofascial- Primary Malignant Neoplasm Of Rectum (HCC) Pain Chest Wall Pain Low Back Chronic documented in this encounter Additional Health Concerns Assessment Noted Time PHQ-9 Depression Total Score: 7 05/26/20 18 10:22 PM CDT documented as of this encounter Care Teams Masonry Installer Relationship Specialty Start Date End Date Elsewhere, Pcp PCP - General Internal Medicine 10/14/22 documented as of this encounter
--- OUTSIDE RECORDS SUMMARY | 2023-12-18 17:32 | XMS_ITS | Encounter Summary ---
Author Name Unknown Organization [facility] Address [address] [place] [address] Care Team Providers Care Red Hat Linux Administrator Name Role Phone Elsewhere, Pcp Primary [...] IV Contrast CT Chest without IV Contrast Myrtle Guzman M.D. 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 [address] [place] [address] [facility] Referral ID Status Reason Start Date Expiration Date Visits Re quested Visits Authorized [id number] Closed 01/02/2023 01/01/2026 1 1 Encounter Details Date Type Department Care Team (Late st Contact Info) Description 02/12/2023 4:00 PM CDT Telemedicine Department of Oncology in [place], [place] [address] [place] [phone] Myrtle Guzman M.D. [address] [place] [phone] Secondary Malignant Neoplasm Lymph Node Multiple Site [...] week 02/03/2023 How often do you attend [facility] or restorationist services? Never 02/03/2023 Do you belong to [...] Answer Date Recorded PHQ-2 Score 0 04/25/2019 [facility] of Occupat ional Health - [...] degree (e.g., MA, MS, Ana Lilia, MEd, TAPER AND FLOATER, GORDO) 02/15/2022 Sex and Gender Information Value Date Recorded Sex Assigned at Male 04/23/2018 1:23 PM CDT Gender Identity Male 04/23/2018 1:23 PM CDT Sexual Orientation Straight 04/23/2018 1: 23 PM CDT documented as of this encounter Progress Notes * Myrtle Guzman M.D. - 02/12/2023 4:00 PM CDT SUBJECTIVE PRIMARY CARE PHYSICIAN ELSEWHERE, PCP LOCAL ONCOLOGIST No care steam plant records clerk to display PRIMARY HELMETTA ONCOLOGIST Myrtle Guzman M.D. CHIEF COMPLAINT / REASON FOR VISIT Luis Tabares is a 42 y.o. male who presents for evaluation of metastatic rectal carcinoma HISTORY OF PRESENT ILLNESS Oncology History Oncology History Malignant Neoplasm Of Rectum (HCC) 04/15/2018 Initial Diagnosis Malignant Neoplasm Of Rectum (HCC) Approximately 4 months history of rectal pain with some bleeding. Seen locally and underwent colonoscopy which showed a rectal mass. Biopsy was positive for invasive adenocarcinoma. Came to [place] and seen by Gastroenterology. Underwent staging MRI [...] Right posterolateral thoracotomy and mediastinal lymphadenectomy. SURGEON(S) [employer] ATTENDANT: Jazmine Bowden M.D. ASSISTING RESIDENT: Bandar Owusu [...] for metastasis 06/11/2021 - 06/13/2021 Radiation Therapy 1867-2084 cGy in 3 fractions to right posterior [...] for metastasis 06/11/2021 - 06/13/2021 Radiation Therapy [phone] cGy in 3 fractions to right posterior 5th rib lesion Patient is seen by video conference. He remains on chemotherapy with FLOX. 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 He was unable to get his bolus dose of 5-FU prior to his vacation. He is feeling much better. He will be back later this week for starting treatment this coming Friday. The following portions of the patient's history were reviewed and updated as appropriate: allergies, current medications, family history, medical history, social history, surgical history and problemlist. REVIEW OF SYSTEMS Constitution: No fatigue, fever, or anorexia Skin: No rash or change in mole Eyes: No vision problems ENT: No scleral icterus or mouth sores Respiratory: No cough, shortness of breath, or wheezing Cardiovascular: No chest pain, tightness, palpitations or lower extremity swelling Gastrointestinal: He currently denies any new GI complaint Genitourinary: No frequency, hematuria, or dysuria Musculoskeletal: No back pain or joint swelling Neurologic: No headache, seizures or slurred speech OBJECTIVE PHYSICAL EXAM ECOG 0 - asymptomatic There were no vitals taken for this visit. General: Alert and oriented. Appears healthy and in no acute distress during our video conference LABORATORY DATA Lab data reviewed. Current lab studies were reviewed. RADIOLOGICAL DATA Radiology data reviewed. CT scan chest, abdomen pelvis results are showing improvement in the lung , liver and lymph node lesions. 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 Tabares and his by video conference. We talked about his CT scan results. Fortunately the CEA count has also improved and the CT scans are showing benefit from his ongoing treatment. Unfortunately he was having more significant toxicity toward the end of this last cycle. He will likely require eventual dose reduction of his oxaliplatin chemotherapy because of neuropathy. For now he does not want to go ahead with any dose reduction. We will resume his chemotherapy with three drugs, 5-FU, leucovorin and oxaliplatin on FridayFebruary 17 He will then go with bolus dose 5 FU and Leucovorin on February 24 and then alternate three versus twodrugs. He will likely require a break after three full doses oxaliplatin chemotherapy. If he is having excessive neuropathy or more diarrhea, further dose adjustments will be necessary. Repeat imaging can occur after three months of therapy. I am happy to see him back here in [place] if he so desires. For now his questions were answered. PATIENT EDUCATION Ready to learn, no apparent learning barriers were identified; learning preferences include listening. Explained diagnosis and treatment plan; patient expressed understanding of the content. ADMINISTRATIVE BILLING I personally spent 30 minutes in care of the patient today. Time includes both non face to face andface to face patient care. Consult conducted via real-time audio/video technology by Myrtle Guzman M.D. in [facility] to the patient in patient's vacation location in [place] documented in this encounter Miscellaneous Notes * Addendum Note - Myrtle Guzman M.D. - 02/12/2023 4:00 PM CDTAddended by: MYRTLE GUZMAN on: 02/25/2023 08:18 AM Modules accepted: Orders documented in this encounter Plan of Treatment Upcoming Encounters Date Type Department Care Team (Late st Contact Info) Description 12/23/2023 8:30 AM ENGINE DISPATCHER Clinical Communication Virtual Review in [address] [address] 12/24/2023 10:30 AM ENGINE DISPATCHER Appointment Department of Radiology, [facility], in [address] [phone] Noelle Reyes P.A.-C., P.A. [address] [place] [phone] 12/24/2023 11:00 AM ENGINE DISPATCHER Lab Department of Infusion Therapy in [place], [place] [address] [place] [phone] Noelle Reyes P.A.-C., P.A. [address] [place] [address] 12/24/2023 2:15 PM ENGINE DISPATCHER Office Visit Department of Palliative Care in [address] [phone] Aylin Smith, CINDY, C.N.P., M.S.N. [address] [place] [address] 12/24/2023 4:10 PM ENGINE DISPATCHER Office Visit Department of Oncology in [place], [place] [address] [place] [address] Ned Alegria M.D. 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 Author Your pain? Symptom Management 9(11/20/2022 2:41 PM ENGINE DISPATCHER) No Phyllis-Girma Bush R.N., O.C.N. Note: 05/24/2021: [...] as of this encounter Results * CT Chest with [...] CT is unchanged. Authorizing Provider Result Pete SOMMERS CT PROCEDURES * CT Abdomen Pelvis with [...] the right side of the celiac artery. Myrtle Guzman M.D. [facility] CT PROCEDURES * (ABNORMAL) CEA (Carcinoembryonic Antigen) (05/06/2023 1:28 PM CDT) [facility] Carcinoembryonic Ag (CEA), S 12.4(H) ng/mL 05/06/2023 6:52 PM CDT [facility] Comment: ----REFERENCE VALUE---- <=3.0 (Non-smokers) Some smokers may have elevated CEA, usually <5.0. ----ADDITIONAL INFORMATION---- The testing method is an immunoenzymatic assay manufactured by [employer]. and performed on the [employer] 800. ? Values obtained with different assay methods or kits may be different and cannot be used interchangeably. ? Test results cannot be interpreted as absolute evidence for the presence or absence of malignant disease. Blood (Blood, Venous) 05/06/2023 1:28 PM CDT 05/06/2023 5:55 PM CDT Myrtle Guzman M.D. LAB BLOOD ADD-ON Performing Organization Address City/State/[facility] Co de Phone Number [facility] [address] [place] [address] [facility] [address] [place] [address] * (ABNORMAL) Comprehensive Metabolic Panel (05/06/2023 1:28 PM CDT) [facility] Potassium, S 4.3 3.6 - 5.2 mmol/L [...] 1:28 PM CDT 05/06/2023 2:16 PM CDT Myrtle Guzman M.D. LAB BLOOD ADD-ON [facility] [address] [place] [address], [facility] [address] [place] [address] * (ABNORMAL) CBC with Differential, Blood (05/06/2023 [...] 1:28 PM CDT 05/06/2023 1:47 PM CDT Myrtle Guzman M.D. LAB BLOOD ADD-ON [facility] [address] [place] [address], [facility] DTL [facility] [address] [place] [address] documented in this encounter Visit Diagnoses Diagnosis [...] documented as of this encounter Care Teams Red Hat Linux Administrator Relationship Specialty Start Date End Date Elsewhere, Pcp PCP - General Internal Medicine 10/14/22 documented as of this encounter
--- OUTSIDE RECORDS SUMMARY | 2023-12-18 17:32 | XMS_ITS | Encounter Summary ---
Author Name Unknown Organization [facility] Address [address] [place] [address] Care Team Providers Care Progress Clerk Name Role Phone Elsewhere, Pcp Primary Care Provider Unavailabl e Reason for Visit * Reason Onset Date Comments 01/07/23 [facility] 01/07/2023 Encounter Details Date Type Department Care Team (Latest Contact Info) Description 01/07/2023 Clinical Communication Department of Oncology in [place], [place] [address] [place] [address] Binta Staples, RAlba 01/07/23 Alert [facility] Social History Tobacco Use Types Packs/Day Years Used Date Smoking Tobacco: Never Smokeless Tobacco: Never Chew Alcohol Use Standard Drinks/Week Comments Yes 0 (1 standard drink = 0.6 oz pur e alcohol) 2 drinks per month Humiliation, Afraid, Rape, and Kick questionnair e Answer Date Recorded Within the last year, have y ou been afraid of your partner or ex-partner? No 02/15/2022 Within the last year, have y ou been humiliated or emotionally abused in other ways by your partner or ex-partner? No Within the last year, have y ou been kicked, hit, slapped, or otherwise physically hurt by your partner or ex-partner? No 02/15/2022 Within the last year, have y ou been raped or forced to have any kind of sexual activity by your partner or ex-partner? No 02/15/2022 Social Connection and Isolation Panel [NHANES] A nswer Date Recorded In a typical week, how many times do you talk on the phone with family, friends, or neighbors? Once a week 02/15/2022 How often do you get together with friends or re latives? Once a week 02/15/2022 How often do you attend mu-ism or orthodoxy serv ices? Never 02/15/2022 Do you belong to any clubs o r organizations such as mu-ism groups, unions, fraternal or athletic groups, or school groups? Yes 02/15/2022 How often do you attend meet ings of the clubs or organizations you belong to? Never 02/15/2022 Are you , , di vorced, , never , or living with a partner? 02/15/2022 AUDIT-C Answer Date Recorded Q1: How often do you have a drink containing alc ohol? 2-4 times a month 02/15/2022 Q2: How many drinks containi ng alcohol do you have on a typical day when you are drinking? 1 or 2 02/15/2022 Q3: How often do you have si x or more drinks on one occasion? Never 02/15/2022 Overall Financial Resource Strain (CARDIA) Answe r Date Recorded How hard is it for you to pa y for the very basics like food, housing, medical care, and heating? Somewhat hard 02/15/2022 PHQ-2 Answer Date Recorded PHQ-2 Score 0 04/25/2019 [facility] of Occupat ional Health - Occupational Stress Questionnaire Answer Date Recorded Do you feel stress - tense, restless, nervous, or anxious, or unable to sleep at night because your mind is troubled all the time - these days? Not at all 02/15/2022 Exercise Vital Sign Answer Date Recorde d On average, how many days pe r week do you engage in moderate to strenuous exercise (like a brisk walk)? 0 days 02/15/2022 On average, how many minutes do you engage in exercise at this level? 30 min 02/15/2022 Hunger Vital Sign Answer Date Recorded Within the past 12 months, y ou worried that your food would run out before you got the money to buy more. Never true 02/16/20 22 Within the past 12 months, t he food you bought just didn't last and you didn't have money to get more. Never true 02/15/2022 PRAPARE - Transportation Answer Date Re corded In the past 12 months, has l ack of transportation kept you from medical appointments or from getting medications? No 11/2021 In the past 12 months, has l ack of transportation kept you from meetings, work, or from getting things needed for daily living? No 02/15/2022 Housing Stability Vital Sign Answer Shady e Recorded In the last 12 months, was t here a time when you were not able to pay the mortgage or rent on time? No 02/15/2022 In the last 12 months, how many places have you lived? 1 02/15/2022 In the last 12 months, was t here a time when you did not have a steady place to sleep or slept in a custodial (including now)? No 02/15/2022 Nutrition Answer Date Recorded Nutrition: EVOO Fat Source No 02/15 On average, how many serving s of fruits and vegetables do you eat per day (serving size is equal to 1 cup or approximately the size of a tennis ball)? 2-3 02/15/2022 Dental Answer Date Recorded Dental: Regular Dentist Yes 02/16/20 Employment Answer Date Recorded Employment status Employed and actively working without restrictions 02/15/2022 Education Answer Date Recorded What is the highest level of school you have completed or the highest degree you have received? Master's degree (e.g., MA, MS, Ana Lilia, MEd, MANAGER VALIDATION, [employer]ORDO) 02/15/2022 Sex and Gender Information Value Date Recorded Sex Assigned at Male 04/23/2018 1:23 PM CDT Gender Identity Male 04/23/2018 1:23 PM CDT Sexual Orientation Straight 04/23/2018 1: 23 PM CDT documented as of this encounter Plan of Treatment Upcoming Encounters Date Type Department Care Team (Late st Contact Info) Description 12/23/2023 8:30 AM DIRECTOR SECURITY RISK MANAGEMENT Clinical Communication Virtual Review in [place], [place] [address] [place] [address] 12/24/2023 10:30 AM DIRECTOR SECURITY RISK MANAGEMENT Appointment Department of Radiology, [facility], in [place], [place] [address] [place] [address] Noelle Reyes P.A.-C., P.A. [address] [place] [phone] 12/24/2023 11:00 AM DIRECTOR SECURITY RISK MANAGEMENT Lab Department of Infusion Therapy in [place], [place] [address] [place] [phone] Noelle Reyes P.A.-C., P.A. [address] [place] [phone] 12/24/2023 2:15 PM DIRECTOR SECURITY RISK MANAGEMENT Office Visit Department of Palliative Care in [place], [place] [address] [place] [phone] Aylin Smith, CINDY, C.N.P., M.S.N. [address] [place] [phone] 12/24/2023 4:10 PM DIRECTOR SECURITY RISK MANAGEMENT Office Visit Department of Oncology in [place], [place] [address] [place] [phone] Ned Alegria M.D. [address] [place] [phone] documented as of this encounter Goals Goal Patient Goal Type Associated Problems Recent Progress Patient-Stated? Author Your pain? Symptom Management 9(11/20/2022 2:41 PM DIRECTOR SECURITY RISK MANAGEMENT) No Fee-Girma Bush, R.N., O.C.N. Note: 05/24/2021: Pain algorithm completed. [facility] [place]/24/2021: Followup 06/07 via portal per patient [...] HEMATOLOGY/ONCOLOGY - BLOOD, EXTERNAL LAB RESULTS Routine 01/06/2023 10:15 AM DIRECTOR SECURITY RISK MANAGEMENT documented in this encounter Results * (ABNORMAL) Hematology/Oncology - Blood, External Lab Results (01/06/2023 10:15 AM DIRECTOR SECURITY RISK MANAGEMENT) EXT Hemoglobin 13.9 13.5 - 17.5 OTHER (SPECIFY IN MOLASSES PREPARER) EXT Leukocytes 5.88 4.50 - 11.00 OTHER (SPECIFY IN MOLASSES PREPARER) EXT Absolute Neutrophil Count 4.02 1.7 - 7.0 OTHER (SPEC RODOLFO IN MOLASSES PREPARER) EXT Platelet Count 97(A) 140 - 440 OTHER (SPECIFY IN MOLASSES PREPARER) EXT AST 30 12 - 35 OTHER (SPE CIFY IN MOLASSES PREPARER) EXT ALT 40 4 - 50 OTHER (SPE CIFY IN MOLASSES PREPARER) EXT Alkaline Phosphatase 88 40 - 150 OTHER (SPECIFY IN MOLASSES PREPARER) EXT Bilirubin, Total 0.6 0.1 - 1.5 mg/dL OTHER (SPECIFY IN MOLASSES PREPARER) EXT Albumin 4.0 3.3 - 5.0 g/dL OTHER (SPECIFY IN MOLASSES PREPARER) EXT Sodium 137 135 - 149 mmol/L OTHER (SPECIFY IN MOLASSES PREPARER) EXT Potassium 4.2 3.6 - 5.1 OTHER (SPECIFY IN MOLASSES PREPARER) EXT Creatinine 0.8 0.5 - 1.5 mg/dL OTHER (SPECIFY IN MOLASSES PREPARER) Blood 01/06/2023 10:1 5 AM DIRECTOR SECURITY RISK MANAGEMENT Historical Provider LAB BLOOD NON ADD-ON OTHER (SPECIFY IN MOLASSES PREPARER) N/A documented in this encounter Visit Diagnoses Not on filedocumented in this encounter Additional Health Concerns Assessment Noted Time PHQ-9 Depression Total Score: 7 05/26/20 18 10:22 PM CDT documented as of this encounter Care Teams Progress Clerk Relationship Specialty Start Date End Date Elsewhere, Pcp PCP - General Internal Medicine 10/14/22 documented as of this encounter
--- OUTSIDE RECORDS SUMMARY | 2023-12-18 17:32 | XMS_ITS | Encounter Summary ---
Author Name Unknown Organization [facility] Address [address] [place] [address] Care Team Providers Care Teacher Resource Name Role Phone Elsewhere, Pcp Primary Care Provider Unavailabl e Reason for Visit * Reason Onset Date Comments 02/14/23 Labs only 02/14/2023 Encounter Details Date Type Department Care Team (Latest Contact Info) Description 02/14/2023 Clinical Communication Department of Oncology in [place], [place] [address] [place] [phone] Sandi Celaya M.S.N., R.N. 02/14/23 Labs only Social History Tobacco Use Types [...] place to sleep or slept in a snf (including now)? No 02/03/2023 Nutrition Answer Date [...] (e.g., MA, MS, Ana Lilia, MEd, DIRECTOR TRUST, GORDO) 02/15/2022 Sex and Gender Information Value Date Recorded Sex Assigned at Male 04/23/2018 1:23 PM CDT Gender Identity Male 04/23/2018 1:23 PM CDT Sexual Orientation Straight 04/23/2018 1: 23 PM CDT documented as of this encounter Plan of Treatment Upcoming Encounters Date Type Department Care Team (Late st Contact Info) Description 12/23/2023 8:30 AM SOCCER PLAYER Clinical Communication Virtual Review in [place], [place] [address] [place] [address] 12/24/2023 10:30 AM SOCCER PLAYER Appointment Department of Radiology, [facility], in [place], [place] [address] [place] [phone] Noelle Reyes P.A.-C., P.A. [address] [place] [phone] 12/24/2023 11:00 AM SOCCER PLAYER Lab Department of Infusion Therapy in [place], [place] [address] [place] [phone] Noelle Reyes P.A.-C., P.A. [address] [place] [phone] 12/24/2023 2:15 PM SOCCER PLAYER Office Visit Department of Palliative Care in [place], [place] [address] [place] [phone] Aylin Smith APRN, CCandidoN.P., M.S.N. [address] [place] [phone] 12/24/2023 4:10 PM SOCCER PLAYER Office Visit Department of Oncology in [place], [place] [address] [place] [phone] Ned Alegria M.D. [address] [place] [phone] documented as of this encounter Goals Goal Patient Goal Type Associated Problems Recent Progress Patient-Stated? Author Your pain? Symptom Management 9(11/20/2022 2:41 PM SOCCER PLAYER) Raisa Ferguson-Girma Bush, RCandidoN., O.C.N. Note: 05/24/2021: [...] HEMATOLOGY/ONCOLOGY - BLOOD, EXTERNAL LAB RESULTS Routine 02/14/2023 12:20 PM CDT documented in this encounter Results * (ABNORMAL) Hematology/Oncology - Blood, External Lab Results (02/14/2023 12:20 PM CDT) EXT Hemoglobin 14.2 13.5 - 17.5 OTHER (SPECIFY IN PRINTED PRODUCTS ASSEMBLER) EXT Leukocytes 3.08(A) 4.50 - 11.00 OTHER (SPECIFY IN PRINTED PRODUCTS ASSEMBLER) EXT Absolute Neutrophil Count 1.70 1.7 - 7.0 OTHER (SPECIFY IN PRINTED PRODUCTS ASSEMBLER) EXT Platelet Count 119(A) 140 - 440 OTHER (SPECIFY IN PRINTED PRODUCTS ASSEMBLER) EXT Albumin 4.2 3.3 - 5.0 g/dL OTHER (SPECIFY IN PRINTED PRODUCTS ASSEMBLER) EXT Sodium 138(A) 149 mmol/L OTHER (SPECIFY IN PRINTED PRODUCTS ASSEMBLER) EXT Potassium 4.1 3.6 - 5.1 OTHER (SPECIFY IN PRINTED PRODUCTS ASSEMBLER) Blood 02/14/2023 12:2 0 PM CDT Historical Provider LAB BLOOD NON ADD-ON OTHER (SPECIFY IN PRINTED PRODUCTS ASSEMBLER) N/A documented in this encounter Visit Diagnoses Not on filedocumented in this encounter Additional Health Concerns Assessment Noted Time PHQ-9 Depression Total Score: 7 05/26/20 18 10:22 PM CDT documented as of this encounter Care Teams Teacher Resource Relationship Specialty Start Date End Date Elsewhere, Pcp PCP - General Internal Medicine 10/14/22 documented as of this encounter
--- OUTSIDE RECORDS SUMMARY | 2023-12-18 17:32 | XMS_ITS | Encounter Summary ---
Author Name Unknown Organization [facility] Address [address] [place] [address] Care Team Providers Care Assistant Product Manager Name Role Phone Elsewhere, Pcp Primary Care Provider Unavailabl e Reason for Visit * Reason Onset Date Comments Pre-visit Intake 01/31/2023 Encounter Details Date Type Department Care Team (Latest Contact Info) Description 01/31/2023 8:30 AM CDT Clinical Communication Virtual Review in [place], [place] [address] [place], [place] [address] Pre-visit Intake Social History Tobacco Use Types [...] week 02/15/2022 How often do you attend sabianism or gnosticism serv ices? Never 02/15/2022 Do you belong to any clubs o r organizations such as sabianism groups, unions, fraternal or athletic groups, or [...] Answer Date Recorded PHQ-2 Score 0 04/25/2019 [facility] of Occupat ional Health - Occupational Stress [...] slept in a chcf (including now)? No 02/15/2022 Nutrition Answer Date [...] degree (e.g., MA, MS, Ana Lilia, MEd, APPLIANCE SERVICE TECHNICIAN, GORDO) 02/15/2022 Sex and Gender Information Value Date Recorded Sex Assigned at Male 04/23/2018 1:23 PM CDT Gender Identity Male 04/23/2018 1:23 PM CDT Sexual Orientation Straight 04/23/2018 1: 23 PM CDT documented as of this encounter Plan of Treatment Upcoming Encounters Date Type Department Care Team (Late st Contact Info) Description 12/23/2023 8:30 AM VALET Clinical Communication Virtual Review in [place], [place] [address] [place] [address] 12/24/2023 10:30 AM VALET Appointment Department of Radiology, [facility], in [place], [place] [address] [place] [phone] Noelle Reyes P.A.-C., P.A. [address] [place] [phone] 12/24/2023 11:00 AM VALET Lab Department of Infusion Therapy in [place], [place] [address] [place] [phone] Noelle Reyes P.A.-C., P.A. [address] [place] [phone] 12/24/2023 2:15 PM VALET Office Visit Department of Palliative Care in [place], [place] [address] [place] [phone] Aylin Smith, CINDY, C.N.P., M.S.N. [address] [place] [phone] 12/24/2023 4:10 PM VALET Office Visit Department of Oncology in [place], [place] [address] [place] [phone] Ned Alegria M.D. [address] [place] [phone] documented as of this encounter Goals Goal Patient Goal Type Associated Problems Recent Progress Patient-Stated? Author Your pain? Symptom Management 9(11/20/2022 2:41 PM VALET) No Fee-Girma Bush, RCandidoN., O.C.N. Note: 05/24/2021: Pain algorithm completed. [facility] [place]: Followup 06/07 via portal per patient [...] documented as of this encounter Care Teams Assistant Product Manager Relationship Specialty Start Date End Date Elsewhere, Pcp PCP - General Internal Medicine 10/14/22 documented as of this encounter
--- OUTSIDE RECORDS SUMMARY | 2023-12-18 17:32 | XMS_ITS | Encounter Summary ---
Author Name Unknown Organization [facility] Address [address] [place] [address] Care Team Providers Care Revolving Field Assembler Name Role Phone Elsewhere, Pcp Primary Care Provider Unavailabl e Reason for Visit * Reason Onset Date Comments 01/17 labs only 01/17/2023 Encounter Details Date Type Department Care Team (Late st Contact Info) Description 01/17/2023 Clinical Communication Department of Oncology in [place], [place] [address] [place] [phone] Sandra Robbins M.SCandidoN., R.N. [address] [place] [phone] 01/17 labs only Social History Tobacco Use Types [...] week 02/15/2022 How often do you attend shinto or alevism serv ices? Never 02/15/2022 Do you belong to any clubs o r organizations such as shinto groups, unions, fraternal or athletic groups, or [...] Answer Date Recorded PHQ-2 Score 0 04/25/[address] [facility] of Occupat ional Health - Occupational Stress [...] slept in a residential (including now)? No 02/15/2022 Nutrition Answer Date [...] degree (e.g., MA, MS, Ana Lilia, MEd, BLOCK HACKER, GORDO) 02/15/2022 Sex and Gender Information Value Date Recorded Sex Assigned at Male 04/23/2018 1:23 PM CDT Gender Identity Male 04/23/2018 1:23 PM CDT Sexual Orientation Straight 04/23/2018 1: 23 PM CDT documented as of this encounter Plan of Treatment Upcoming Encounters Date Type Department Care Team (Late st Contact Info) Description 12/23/2023 8:30 AM PHP ARCHITECT Clinical Communication Virtual Review in [place], [place] [address] [place] [address] 12/24/2023 10:30 AM PHP ARCHITECT Appointment Department of Radiology, [facility], in [place], [place] [address] [place] [address] Noelle Reyes P.A.-C., P.A. [address] [place] [phone] 12/24/2023 11:00 AM PHP ARCHITECT Lab Department of Infusion Therapy in [place], [place] [address] [place] [phone] Noelle Reyes P.A.-C., P.A. [address] [place] [phone] 12/24/2023 2:15 PM PHP ARCHITECT Office Visit Department of Palliative Care in [address] [phone] Aylin Smith APRN, C.NCandidoP., M.S.N. [address] [place] [phone] 12/24/2023 4:10 PM PHP ARCHITECT Office Visit Department of Oncology in [address] [phone] Ned Alegria M.D. [address] [place] [phone] documented as of this encounter Goals Goal Patient Goal Type Associated Problems Recent Progress Patient-Stated? Author Your pain? Symptom Management 9(11/20/2022 2:41 PM PHP ARCHITECT) Raisa Ferguson-Girma Bush, RCandidoN., O.C.N. Note: 05/24/2021: Pain algorithm completed. [facility] [place] 05/24/2021: Followup 06/07 via portal per patient [...] documented as of this encounter Care Teams Revolving Field Assembler Relationship Specialty Start Date End Date Elsewhere, Pcp PCP - General Internal Medicine 10/14/22 documented as of this encounter
--- OUTSIDE RECORDS SUMMARY | 2023-12-18 17:32 | XMS_ITS | Encounter Summary ---
Author Name Unknown Organization [facility] Address [address] [place] [address] Care Team Providers Care Line Lead Name Role Phone Elsewhere, Pcp Primary Care Provider Unavailabl e Reason for Visit * Reason Onset Date Comments 01/24/23 labs only 01/27/2023 Encounter Details Date Type Department Care Team (Latest Contact Info) Description 01/27/2023 Clinical Communication Department of Oncology in [place], [place] [address] [place] [phone] Binta Staples, RRancho. 01/24/23 labs only Social History Tobacco Use Types [...] week 02/15/2022 How often do you attend mandaen or yarsanism serv ices? Never 02/15/2022 Do you belong [...] Answer Date Recorded PHQ-2 Score 0 04/25/2019 [facility] of Occupat ional Health - [...] slept in a fpc (including now)? No 02/15/2022 Nutrition Answer Date [...] degree (e.g., MA, MS, Ana Lilia, MEd, MINILAB OPERATOR, GORDO) 02/15/2022 Sex and Gender Information Value Date Recorded Sex Assigned at Male 04/23/2018 1:23 PM CDT Gender Identity Male 04/23/2018 1:23 PM CDT Sexual Orientation Straight 04/23/2018 1: 23 PM CDT documented as of this encounter Plan of Treatment Upcoming Encounters Date Type Department Care Team (Late st Contact Info) Description 12/23/2023 8:30 AM SERVICE DESK SPECIALIST Clinical Communication Virtual Review in [place], [place] [address] [place] [address] 12/24/2023 10:30 AM SERVICE DESK SPECIALIST Appointment Department of Radiology, [facility], in [place], [place] [address] [place] [phone] Noelle Reyes P.A.-C., P.A. [address] [place] [phone] 12/24/2023 11:00 AM SERVICE DESK SPECIALIST Lab Department of Infusion Therapy in [place], [place] [address] [place] [phone] Noelle Reyes P.A.-C., P.A. [address] [place] [phone] 12/24/2023 2:15 PM SERVICE DESK SPECIALIST Office Visit Department of Palliative Care in [place], [place] [address] [place] [phone] Aylin Smith, CINDY, C.N.P., M.S.N. [address] [place] [phone] 12/24/2023 4:10 PM SERVICE DESK SPECIALIST Office Visit Department of Oncology in [place], [place] [address] [place] [phone] Ned Alegria M.D. [address] [place] [phone] documented as of this encounter Goals Goal Patient Goal Type Associated Problems Recent Progress Patient-Stated? Author Your pain? Symptom Management 9(11/20/2022 2:41 PM SERVICE DESK SPECIALIST) No Fee-Girma Bush, R.N., O.C.N. Note: 05/24/2021: Pain algorithm completed[place] [facility] [place]: Followup 06/07 via portal per patient [...] HEMATOLOGY/ONCOLOGY - BLOOD, EXTERNAL LAB RESULTS Routine 01/24/2023 8:30 AM SERVICE DESK SPECIALIST documented in this encounter Results * (ABNORMAL) Hematology/Oncology - Blood, External Lab Results (01/24/2023 8:30 AM SERVICE DESK SPECIALIST) EXT Hemoglobin 14.6 13.5 - 17.5 OTHER (SPECIFY IN TIPPLE GREASER) EXT Leukocytes 3.41(A) 4.50 - 11.00 OTHER (SPECIFY IN TIPPLE GREASER) EXT Absolute Neutrophil Count 1.80 1.7 - 7.0 OTHER (SPECIFY IN TIPPLE GREASER) EXT Platelet Count 107(A) 140 - 440 OTHER (SPECIFY IN TIPPLE GREASER) EXT AST 31 12 - 35 OTHER (SPECIFY IN TIPPLE GREASER) EXT ALT 40 4 - 50 OTHER (SPECIFY IN TIPPLE GREASER) EXT Alkaline Phosphatase 81 40 - 150 OTHER (SPECIFY IN TIPPLE GREASER) EXT Bilirubin, Total 1.1 0.1 - 1.5 mg/dL OTHER (SPECIFY IN TIPPLE GREASER) EXT Albumin 4.1 3.3 - 5.0 g/dL OTHER (SPECIFY IN TIPPLE GREASER) EXT Sodium 135 135 - 149 mmol/L OTHER (SPECIFY IN TIPPLE GREASER) EXT Potassium 3.9 3.6 - 5.1 OTHER (SPECIFY IN TIPPLE GREASER) EXT Creatinine 0.9 0.5 - 1.5 mg/dL OTHER (SPECIFY IN TIPPLE GREASER) Blood 01/24/2023 8:30 AM SERVICE DESK SPECIALIST Historical Provider LAB BLOOD NON ADD-ON OTHER (SPECIFY IN TIPPLE GREASER) N/A documented in this encounter Visit Diagnoses Not on filedocumented in this encounter Additional Health Concerns Assessment Noted Time PHQ-9 Depression Total Score: 7 05/26/20 18 10:22 PM CDT documented as of this encounter Care Teams Line Lead Relationship Specialty Start Date End Date Elsewhere, Pcp PCP - General Internal Medicine 10/14/22 documented as of this encounter
--- OUTSIDE RECORDS SUMMARY | 2023-12-18 17:32 | XMS_ITS | Encounter Summary ---
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 [address] [place] [address] [facility] Referral ID Status Reason Start Date Expiration Date Visits Re quested Visits Authorized [id number] Closed 01/02/2023 01/02/2024 1 1 Encounter Details Date Type Department Care Team (Latest Contact Info) Description 02/03/2023 9:59 AM CDT - 02/03/2023 11:59 PM CDT Hospital Encounter Department of Radiology, [facility], in [place], [place] [address] [place] [address] Giorgio Fishman M.D. 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 Never 02/03/2023 Do you belong to [...] Answer Date Recorded PHQ-2 Score 0 04/25/2019 [facility] Answer Date [...] degree (e.g., MA, MS, Ana Lilia, MEd, FLEET SERVICE CLERK, [employer]) 02/15/2022 Sex and Gender Information Value [...] chest pain. 25 tablet 12 05/28/2018 omega [id number]-[id number]-fish oil 1,000 mg (120 mg-180 mg) capsule Take 2 capsules by mouth. 0 05/16/2022 TURMERIC ORAL Take 1 tablet by mouth every morning. 0 amLODIPine (NORVASC) 5 mg tablet Take 5 mg by mouth every morning. 0 12/28/2021 08/25/2023 DULoxetine (CYMBALTA) [address] capsule Take 1 capsule (60 mg total) by mouth daily. 90 capsule 3 08/09/2022 05/23/2023 gabapentin (NEURONTIN) 300 mg capsule TAKE 1 CAPSULE BY MOUTH THREE TIMES A DAY 90 capsule 3 11/26/2022 04/07/2023 HYDROmorphone (DILAUDID) 2 mg tabletIndications:Acute Pain Take 0.5 tablets (1 mg total) by mouth every 3 (three) hours as needed for pain for up to 8 doses Indication: Acute Pain. 4 tablet 0 02/19/2022 09/26/2023 melatonin 10 mg disintegrating tablet Take 10 mg by mouth at bedtime. 0 11/26/2023 OLANZapine (ZyPREXA) 5 mg tablet Take 5 mg by mouth daily. 0 06/19/2022 02/25/2023 ondansetron ODT (ZOFRAN-ODT) 8 mg disintegrating tablet every 8 (eight) hours as needed for nausea. See attached for detailed directions. 0 12/03/2022 09/26/2023 pantoprazole (PROTONIX) 40 mg EC tablet TAKE 1 TABLET BY MOUTH EVERY DAY IN THE MORNING 90 tablet 1 07/18/2022 03/06/2023 prochlorperazine (COMPAZINE) 10 mg tablet Take 10 [...] st Contact Info) Description 12/23/2023 8:30 AM PACKAGING MACHINE OPERATOR Clinical Communication Virtual Review in [address] [address] 12/24/2023 10:30 AM PACKAGING MACHINE OPERATOR Appointment Department of Radiology, [facility], in [place], [place] [address] [place] [phone] Noelle Reyes P.A.-C., P.A. 1 [place] [phone] 12/24/2023 11:00 AM PACKAGING MACHINE OPERATOR Lab Department of Infusion Therapy in [place], [place] [address] [place] [phone] Noelle Reyes P.A.-C., P.A. 1 [place] [phone] 12/24/2023 2:15 PM PACKAGING MACHINE OPERATOR Office Visit Department of Palliative Care in [address] [phone] Aylin Smith, CINDY, C.N.P., M.S.N. [address] [place] [phone] 12/24/2023 4:10 PM PACKAGING MACHINE OPERATOR Office Visit Department of Oncology in [place], [place] [address] [place] [phone] Ned Alegria M.D. [address] [place] [phone] documented as of this encounter Goals Goal Patient Goal Type Associated Problems Recent Progress Patient-Stated? Author Your pain? Symptom Management 9(11/20/2022 2:41 PM PACKAGING MACHINE OPERATOR) No Phyllis-Girma Bush, RCandidoN., O.C.N. Note: 05/24/2021: Pain algorithm completed. 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 Multiple bilateral solid pulmonary nodules (including cavitary nodules) and right upper lobe post radiation mass have decreased in size and/or conspicuity, detailed in the body of the report. ?? 2. Posterior right fifth rib pathologic fracture is unchanged. 3. Mediastinal and hilar nodes have decreased in size. 4. Trace right pleural effusion is stable. Narrative 02/03/2023 12:35 PM CDT EXAM: CT CHEST WITH IV CONTRAST COMPARISON: Multiple chest CTs from 05/13/2018 to 10/29/2022 ?? FINDINGS: Multiple bilateral solid pulmonary nodules (including cavitary nodules) on series 3 have decreased in size and/or conspicuity. For example, the 9 x 11 mm solid noncalcified posterior left upper lobe nodule on image 248 previously measured 10 x 13 mm. Air bronchograms are also more apparent within this nodule. A previous 3 x 6 mm solid noncalcified posterior right upper lobe nodule on series 3 image 227 of the 10/29/2022 CT is nearly imperceptible on the current CT. The posterior right upper lobe 4.1 x 2.1 x 1.5 cm post radiation mass on series 3 image 189 previously 4.9 x 2.7 x 2 cm. The adjacent posterior right fifth rib pathologic fracture is unchanged. Right lower lobe post resection changes are similar with decreased surrounding metastatic disease. Trace right pleural effusion is stable. Mediastinal and hilar nodes have decreased in size. For instance, subcarinal (station 7) 1.2 cm node on series 3 image 291 previously 1.5 cm in short axis. Similar right chest Port-A-Cath with tip at the upper cavoatrial junction. No new aggressive osseous lesions identified. Thank you for the consultation. This examination was performed in conjunction with a CT of the abdomen, which will be reported separately. 3D maximum intensity projection (MIP) images were created on a dependent workstation as ordered by the treating provider and reviewed by the radiologist to increase sensitivity for detection of pulmonary nodules. Procedure Note Sebastian Ruiz M.D. - 02/03/2023 EXAM: CT CHEST WITH IV CONTRAST COMPARISON: Multiple chest CTs from 05/13/2018 to 10/29/2022 FINDINGS: Multiple bilateral solid pulmonary nodules (including cavitary nodules) onseries 3 have decreased in size and/or conspicuity. For example, the 9 x 11 mm solid noncalcifiedposterior left upper lobe nodule on image 248 previously measured 10 x 13 mm. Air bronchograms arealso more apparent within this nodule. A previous 3 x 6 mm solid noncalcified posterior right upperlobe nodule on series 3 image 227 of the 10/29/2022 CT is nearly imperceptible on the current CT.The posterior right upper lobe 4.1 x 2.1 x 1.5 cm post radiation mass on series 3 image 189previously 4.9 x 2.7 x 2 cm. The adjacent posterior right fifth rib pathologic fracture is unchanged. Rightlower lobe post resection changes are similar with decreased surrounding metastatic disease. Traceright pleural effusion is stable. Mediastinal and hilar nodes have decreased in size. For instance,subcarinal (station 7) 1.2 cm node on series 3 image 291 previously 1.5 cm in short axis. Similar right chest Port-A-Cath with tip at the upper cavoatrialjunction. No new aggressive osseous lesions identified. Thank you for the consultation. This examination was performed in conjunction with a CT of the abdomen,which will be reported separately. 3D maximum intensity projection (MIP) images were created on a dependentworkstation as ordered by the treating provider and reviewed by the radiologist to increasesensitivity for detection of pulmonary nodules. IMPRESSION: 1. Multiple bilateral solid pulmonary nodules (including cavitary nodules)and right upper lobe post radiation mass have decreased in size and/or conspicuity, detailed in thebody of the report. 2. Posterior right fifth rib pathologic fracture is unchanged. 3. Mediastinal and hilar nodes have decreased in size. 4. Trace right pleural effusion is stable. Giorgio SOMMERS CT PROCEDURES * CT Abdomen Pelvis with IV Contrast (02/03/2023 11:05 AM CDT) Anatomical Region Laterality Modality Abdomen, Pelvis, Abdominal R ST LOS, Abdominal ARZ LOS, Abdominal FLA LOS N/A Computed Tomograp hy, Computed Tomography 02/03/2023 11:0 2 AM CDT Impressions 02/03/2023 11:42 AM CDT Favorable response to interval treatment Narrative 02/03/2023 11:42 AM CDT EXAM: ??CT ABDOMEN PELVIS WITH IV CONTRAST COMPARISON: ??10/29/2022 FINDINGS: ?? Since 10/29/2022, slight retraction of a 0.8 cm metastasis high in the right hepatic lobe (series 1 image 15), a 0.6 cm metastasis in segment 4 (series 1 image 31), and a 0.4 cm subcapsular metastasis in segment 7 (series 1 image 23). A 4 mm metastasis in segment 6 (series 1 image 47) measured 6 mm previously. Large 9.5 cm ablation defect in the right hepatic lobe. ??New hepatic steatosis. A 1.1 cm short axis portacaval lymph node has decreased in size. Slight retraction of the adjacent infiltrating soft tissue along the right side of the celiac artery. Prior low anterior resection. Contracted gallbladder. This examination was performed in conjunction with a CT of the chest, which will be reported separately. . Procedure Note Shravan An M.D. - 02/03/2023 EXAM: CT ABDOMEN PELVIS WITH IV CONTRAST COMPARISON: 10/29/2022 FINDINGS: Since 10/29/2022, slight retraction of a 0.8 cm metastasis high in theright hepatic lobe (series 1 image 15), a 0.6 cm metastasis in segment 4 (series 1 image 31), and a 0.4cm subcapsular metastasis in segment 7 (series 1 image 23). A 4 mm metastasis in segment 6 (series 1image 47) measured 6 mm previously. Large 9.5 cm ablation defect in the right hepatic lobe. Newhepatic steatosis. A 1.1 cm short axis portacaval lymph node has decreased in size. Slightretraction of the adjacent infiltrating soft tissue along the right side of the celiac artery. Prior low anterior resection. Contracted gallbladder. This examination was performed in conjunction with a CT of the chest,which will be reported separately. . IMPRESSION: Favorable response to interval treatment Giorgio SOMMERS CT PROCEDURES documented in this [...] line care, Prior to discharge, Starting on Fri02/03/23 at 1028, For 1 dose, Implanted Vascular Access Device (IVAD) Venous Non-Valved: Following saline flush prior to discharge. Given 02/03/2023 11:00 AM CDT 500 Units iopromide 370 mg iodine/mL injection 1-162 mL (ULTRAVIST) 1-162 mL, intravenous, Once in imaging, contrast, Starting on Fri02/03/23 at 1013, For 1 dose, Imaging Protocol Orders, Dose per Radiant Medication Guidelines Given 02/03/2023 10:50 AM CDT 140 mL sodium chloride (PF) 0.9 % injection 1-100 mL 1-100 mL, intravenous, Once, On Fri02/03/23 at 1015, For 1 dose, Imaging Protocol Orders Given 02/03/2023 10:51 AM CDT 50 mL sodium chloride 0.9 % injection 10 mL 10 mL, intravenous, As needed, line care, Implanted Vascular Access Device (IVAD) Venous Non-Valved, Starting on Fri02/03/23 at 1028, Prior to and following infusion, between multiple consecutive infusions, and prior to blood sampling, Given 02/03/2023 11:00 AM CDT 10 mL documented in this encounter Additional Health Concerns Assessment Noted Time PHQ-9 Depression Total Score: 7 05/26/20 18 10:22 PM CDT documented as of this encounter Care Teams Linotype Operator Relationship Specialty Start Date End Date Elsewhere, Pcp PCP - General Internal Medicine 10/14/22 documented as of this encounter
--- OUTSIDE RECORDS SUMMARY | 2023-12-18 17:32 | XMS_ITS | Encounter Summary ---
Author Name Unknown Organization [facility] Address [address] [place] [address] Care Team Providers Care Supervisor Drapery Hanging Name Role Phone Elsewhere, Pcp Primary Care Provider Unavailabl e Encounter Details Date Type Department Care Team (Late st Contact Info) Description 01/02/2023 Clinical Communication Department of Oncology in [place], [place] [address] [place] [address] Giorgio Fishman M.D. [address] [place] [phone] Social History Tobacco Use Types Packs/Day Years [...] week 02/15/2022 How often do you attend muslim or advent serv ices? Never 02/15/2022 Do you belong [...] PHQ-2 Score 0 04/25/2019 [facility] - Occup[facility] [...] slept in a detention (including now)? No 02/15/2022 Nutrition Answer Date [...] degree (e.g., MA, MS, Ana Lilia, MEd, ROAD TRAIN DRIVER, [employer]) 02/15/2022 Sex and Gender Information Value Date Recorded Sex Assigned at Male 04/23/2018 1:23 PM CDT Gender Identity Male 04/23/2018 1:23 PM CDT Sexual Orientation Straight 04/23/2018 1: 23 PM CDT documented as of this encounter Plan of Treatment Upcoming Encounters Date Type Department Care Team (Late st Contact Info) Description 12/23/2023 8:30 AM MANNEQUIN MAKER Clinical Communication Virtual Review in [place], [place] [address] [place] [address] 12/24/2023 10:30 AM MANNEQUIN MAKER Appointment Department of Radiology, [facility], in [place], [place] [address] [place] [address] Noelle Reyes PCandidoA.Winston., P.A. [address] [place] [phone] 12/24/2023 11:00 AM MANNEQUIN MAKER Lab Department of Infusion Therapy in [place], [place] [address] [place] [phone] Noelle Reyes P.A.-C., P.A. [address] [place] [phone] 12/24/2023 2:15 PM MANNEQUIN MAKER Office Visit Department of Palliative Care in [place], [place] [address] [place] [phone] Aylin Smith APRN, C.N.P., M.S.N. [address] [place] [phone] 12/24/2023 4:10 PM MANNEQUIN MAKER Office Visit Department of Oncology in [place], [place] [address] [place] [phone] Ned Alegria M.D. [address] [place] [phone] documented as of this encounter Goals Goal Patient Goal Type Associated Problems Recent Progress Patient-Stated? Author Your pain? Symptom Management 9(11/20/2022 2:41 PM MANNEQUIN MAKER) No Phyllis-Girma Bush, R.N., O.C.N. Note: 05/24/2021: Pain algorithm completed. [facility] [place] 05/24/2021: Followup 06/07 via portal per patient [...] as of this encounter Care Teams Supervisor Drapery Hanging Relationship Specialty Start Date End Date Elsewhere, Pcp PCP - General Internal Medicine 10/14/22 documented as of this encounter
--- OUTSIDE RECORDS SUMMARY | 2023-12-18 17:32 | XMS_ITS | Encounter Summary ---
Author Name Unknown Organization [facility] Address [address] [place] [address] Care Team Providers Care Pianos And Organs Salesperson Name Role Phone Elsewhere, Pcp Primary Care Provider Unavailabl e Encounter Details Date Type Department Care Team (Late st Contact Info) Description 02/03/2023 9:30 AM CDT Lab Department of Infusion Therapy in [place], [place] [address] [place] [address] Giorgio Fishman M.D. [address] [place] [address] Secondary Malignant Neoplasm Of Lung Laterality Unknown [...] often do you attend chur ch or scientology services? Never 02/03/2023 Do you belong to [...] Answer Date Recorded PHQ-2 Score 0 04/25/2019 [facility]at [facility] [...] degree (e.g., MA, MS, Ana Lilia, MEd, MIDDLE SCHOOL RESOURCE TEACHER, GORDO) 02/15/2022 Sex and Gender Information Value Date Recorded Sex Assigned at Male 04/23/2018 1:23 PM CDT Gender Identity Male 04/23/2018 1:23 PM CDT Sexual Orientation Straight 04/23/2018 1: 23 PM CDT documented as of this encounter Plan of Treatment Upcoming Encounters Date Type Department Care Team (Late st Contact Info) Description 12/23/2023 8:30 AM CYTOLOGY TECHNOLOGIST Clinical Communication Virtual Review in [address] [phone] 12/24/2023 10:30 AM CYTOLOGY TECHNOLOGIST Appointment Department of Radiology, [facility], in [place], [place] [address] [place] [phone] Noelle Reyes P.A.-C., P.A. [address] [place] [phone] 12/24/2023 11:00 AM CYTOLOGY TECHNOLOGIST Lab Department of Infusion Therapy in [place], [place] [address] [place] [phone] Noelle Reyes P.A.-C., P.A. [address] [place] [phone] 12/24/2023 2:15 PM CYTOLOGY TECHNOLOGIST Office Visit Department of Palliative Care in [place], [place] [address] [place], [place] [phone] Aylin Smith, CINDY, C.N.P., M.S.N. [address] [place] [phone] 12/24/2023 4:10 PM CYTOLOGY TECHNOLOGIST Office Visit Department of Oncology in [place], [place] [address] [place] [phone] Ned Alegria M.D. [address] [place] [phone] documented as of this encounter Goals Goal Patient Goal Type Associated Problems Recent Progress Patient-Stated? Author Your pain? Symptom Management 9(11/20/2022 2:41 PM CYTOLOGY TECHNOLOGIST) No Fee-Girma Bush, RCandidoN., O.C.N. 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 ----ADDITIONAL INFORMATION---- The testing method is an immunoenzymatic assay manufactured by [employer]. and performed on the VidyoI 800. ? Values obtained with different assay methods or kits may be different and cannot be used interchangeably. ? Test results cannot be interpreted as absolute evidence for the presence or absence of malignant disease. Blood (Blood, Venous) 02/03/2023 10:03 AM CDT 02/03/2023 2:18 PM CDT Giorgio Fishman M.D. LAB BLOOD ADD-ON Performing Organization Address [facility]State/[facility] Co de Phone Number [facility] [address] [place] [address] [facility] [address] [place] [address] * Bilirubin, Direct (02/03/2023 9:37 AM CDT) Bilirubin, Direct, S <0.2 0.0 - 0.3 mg/dL 02/03/2023 11:09 AM CDT DTL Blood (Blood, Venous) 02/03/2023 9:37 AM CDT 02/03/2023 10:38 AM CDT Giorgio C Pitot M.D. LAB BLOOD ADD-ON [facility] [address] [place] [address], [place] DTL [facility] [address] [place] [address] * (ABNORMAL) Comprehensive Metabolic Panel (02/03/2023 9:37 AM CDT) Potassium, S 3.5(L) 3.6 - 5.2 mmol/L 02/03/2023 11:09 AM CDT DTL Sodium, S 141 135 - 145 mmol/L 02/03/2023 11:09 AM CDT DTL Chloride, S 106 98 - 107 mmol/L 02/03/2023 11:09 AM CDT DTL Bicarbonate, S 24 22 - 29 mmol/L 02/03/2023 11:09 AM CDT DTL Anion Gap 11 7 - 15 02/03/2023 11:09 AM CDT DTL BUN (Blood Urea Nitrogen), S 11 8 - 24 mg/dL 02/03/2023 11:09 AM CDT DTL Creatinine 0.87 0.74 - 1.35 mg/dL 02/03/2023 11:09 AM CDT DTL Estimated GFR (eGFR) >90 >=60 mL/min/BS A 02/03/2023 11:09 AM CDT DTL Comment: Estimated GFR calculated using the 2020 CKD_EPI creatinine equation. Calcium, Total, S 8.4(L) 8.6 - 10.0 mg/dL 02/03/2023 11:09 AM CDT DTL Glucose, S 108 70 - 140 mg/dL 02/03/2023 11:09 AM CDT DTL Protein, Total, S 5.7(L) 6.3 - 7.9 g/dL 02/03/2023 11:09 AM CDT DTL Albumin, S 3.8 3.5 - 5.0 g/dL 02/03/2023 11:09 AM CDT DTL Aspartate Aminotransferase (AST), S 36 8 - 48 U/L 02/03/2023 11:09 AM CDT DTL Alkaline Phosphatase, S 132(H) 40 - 129 U/L 02/03/2023 11:09 AM CDT DTL Alanine Aminotransferase (ALT), S 41 7 - 55 U/L 02/03/2023 11:09 AM CDT DTL Bilirubin, Total, S 0.4 <=1.2 mg/dL 02/03/2023 11:09 AM CDT DTL Blood (Blood, Venous) 02/03/2023 9:37 AM CDT 02/03/2023 10:38 AM CDT Giorgio Fishman M.D. LAB BLOOD ADD-ON [facility] [address] [place] [address], [facility] [address] [place] [address] * (ABNORMAL) CBC with Differential, Blood (02/03/2023 9:37 AM CDT) Hemoglobin 13.0(L) 13.2 - 16.6 g/dL 02/03/2023 10:36 AM CDT DTL Hematocrit 38.7 38.3 - 48.6 % 02/03/2023 10:36 AM CDT DTL Erythrocytes 4.35 4.35 - 5.65 x10(12)/L 02/03/2023 10:36 AM CDT DTL MCV 89.0 78.2 - 97.9 fL 02/03/2023 10:36 AM CDT DTL RBC Distrib Width 18.4(H) 11.8 - 14.5 % 02/03/2023 10:36 AM CDT DTL Platelet Count 88(L) 135 - 317 x10(9)/L 02/03/2023 10:36 AM CDT DTL Leukocytes 2.8(L) 3.4 - 9.6 x10(9)/L 02/03/2023 10:36 AM CDT DTL Neutrophils 1.39(L) 1.56 - 6.45 x10(9)/L 02/03/2023 10:36 AM CDT DTL Lymphocytes 0.57(L) 0.95 - 3.07 x10(9)/L 02/03/2023 10:36 AM CDT DTL Monocytes 0.70 0.26 - 0.81 x10(9)/L 02/03/2023 10:36 AM CDT DTL Eosinophils 0.12 0.03 - 0.48 x10(9)/L 02/03/2023 10:36 AM CDT DTL Basophils <0.03 0.01 - 0.08 x10(9)/L 02/03/2023 10:36 AM CDT DTL Blood (Blood, Venous) 02/03/2023 9:37 AM CDT 02/03/2023 10:15 AM CDT Giorgio Fishman M.D. LAB BLOOD ADD-ON [facility] [address] [place] [address], [facility] [address] [place] [address] documented in this encounter Visit Diagnoses Diagnosis [...] intra-catheter, As needed, line care, Starting on Fri02/03/23 at 0938, When no infusion to maintain patency: For IVAD accessed, not in use, and/or prior to hospital discharge, flush every 7 days after 0.9% preservative-free NaCL flush. For IVAD NOT accessed or used, flush every 4 weeks after 0.9% preservative-free NaCL flush. Given 02/03/2023 9:53 AM CDT 500 Units sodium chloride 0.9 % injection 10 mL 10 mL, intra-catheter, As needed, line care, Starting on Fri02/03/23 at 0938, When IVAD Accessed and in Use: Flush prior to and following infusion, between multiple consecutive infusions, and prior to blood sampling. Given 02/03/2023 9:53 AM CDT 10 mL sodium chloride 0.9 % injection 20 mL 20 mL, intra-catheter, As needed, line care, Starting on Fri02/03/23 at 0938, When IVAD Accessed and in Use: Flush post blood transfusion or post blood sampling. Given 02/03/2023 9:53 AM CDT 20 mL documented in this encounter Additional Health Concerns Assessment Noted Time PHQ-9 Depression Total Score: 7 05/26/20 18 10:22 PM CDT documented as of this encounter Care Teams Pianos And Organs Salesperson Relationship Specialty Start Date End Date Elsewhere, Pcp PCP - General Internal Medicine 10/14/22 documented as of this encounter
--- OUTSIDE RECORDS SUMMARY | 2023-12-18 17:33 | XMS_ITS | Encounter Summary ---
Author Name Unknown Organization [facility] Address [address] [place] [address] Care Team Providers Care Melt Down Furnace Operator Name Role Phone Elsewhere, Pcp Primary Care Provider Unavailabl e Reason for Visit * Reason Onset Date Comments 12/27/22 Labs only 12/27/2022 Encounter Details Date Type Department Care Team (Latest Contact Info) Description 12/27/2022 Clinical Communication Department of Oncology in [place], [place] [address] [place] [address] Sandra Robbins M.SCandidoN., R.N. [address] [place] [address] 12/27/22 Labs only Social History Tobacco Use Types [...] week 02/15/2022 How often do you attend baptist or restorationism serv ices? Never 02/15/2022 Do you belong [...] Answer Date Recorded PHQ-2 Score 0 04/25/2019 [facility] - [...] slept in a longterm (including now)? No 02/15/2022 Nutrition Answer Date [...] degree (e.g., MA, MS, Ana Lilia, MEd, CELLOPHANE PRESS OPERATOR, GORDO) 02/15/2022 Sex and Gender Information Value Date Recorded Sex Assigned at Male 04/23/2018 1:23 PM CDT Gender Identity Male 04/23/2018 1:23 PM CDT Sexual Orientation Straight 04/23/2018 1: 23 PM CDT documented as of this encounter Plan of Treatment Upcoming Encounters Date Type Department Care Team (Late st Contact Info) Description 12/23/2023 8:30 AM HAND CULTIVATOR Clinical Communication Virtual Review in [place], [place] [address] [place] [address] 12/24/2023 10:30 AM HAND CULTIVATOR Appointment Department of Radiology, [facility], in [place], [place] [address] [place] [address] Noelle Reyes P.A.-C., P.A. [address] [place] [phone] 12/24/2023 11:00 AM HAND CULTIVATOR Lab Department of Infusion Therapy in [place], [place] [address] [place] [phone] Noelle Reyes P.A.-C., P.A. [address] [place] [phone] 12/24/2023 2:15 PM HAND CULTIVATOR Office Visit Department of Palliative Care in [place], [place] [address] [place] [phone] Aylin Smith APRN CCandidoNCandidoP., M.S.N. [address] [place] [phone] 12/24/2023 4:10 PM HAND CULTIVATOR Office Visit Department of Oncology in [place], [place] [address] [place] [phone] Ned Alegria M.D. [address] [place] [phone] documented as of this encounter Goals Goal Patient Goal Type Associated Problems Recent Progress Patient-Stated? Author Your pain? Symptom Management 9(11/20/2022 2:41 PM HAND CULTIVATOR) Raisa Ferguson-Girma Bush, R.N., O.C.N. Note: 05/24/2021: [...] documented as of this encounter Care Teams Melt Down Furnace Operator Relationship Specialty Start Date End Date Elsewhere, Pcp PCP - General Internal Medicine 10/14/22 documented as of this encounter
--- OUTSIDE RECORDS SUMMARY | 2023-12-18 17:33 | XMS_ITS | Encounter Summary ---
Author Name Unknown Organization [facility] Address [address] [place] [address] Care Team Providers Care Skip Hoist Engineer Name Role Phone Elsewhere, Pcp Primary [...] without IV Contrast Giorgio Fishman M.D. 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 [address] [place] [address] [facility] Referral ID Status Reason Start Date Expiration Date Visits Re quested Visits Authorized [id number] Closed 01/02/2023 01/02/2024 1 1 RYING SPECIALIST Encounter Details Date Type Department Care Team (Late st Contact Info) Description 01/02/2023 Orders Only Department of Oncology in [place], [place] [address] [place] [address] Giorgio Fishman M.D. [address] [place] [phone] Secondary Malignant Neoplasm Of Lung Laterality Unknown [...] week 02/15/2022 How often do you attend mandaeism or zoroastrianism serv ices? Never 02/15/2022 Do you belong to any clubs o r organizations such as mandaeism groups, unions, fraternal or athletic groups, or [...] money to buy more. Never true 02/16/20 Within the past 12 months, t he [...] slept in a prison (including now)? No 02/15/2022 Nutrition Answer Date [...] degree (e.g., MA, MS, Ana Lilia, MEd, SALES REPRESENTATIVE GROCERIES, GORDO) 02/15/2022 Sex and Gender Information Value Date Recorded Sex Assigned at Male 04/23/2018 1:23 PM CDT Gender Identity Male 04/23/2018 1:23 PM CDT Sexual Orientation Straight 04/23/2018 1: 23 PM CDT documented as of this encounter Plan of Treatment Upcoming Encounters Date Type Department Care Team (Late st Contact Info) Description 12/23/2023 8:30 AM QUARRYING SPECIALIST Clinical Communication Virtual Review in [place], [place] [address] [place] [address] 12/24/2023 10:30 AM QUARRYING SPECIALIST Appointment Department of Radiology, [facility], in [place], [place] [address] [place] [phone] Noelle Reyes P.A.-C., P.A. [address] [place] [phone] 12/24/2023 11:00 AM QUARRYING SPECIALIST Lab Department of Infusion Therapy in [place], [place] [address] [place] [phone] Noelle Reyes P.A.-C., P.A. [address] [place] [phone] 12/24/2023 2:15 PM QUARRYING SPECIALIST Office Visit Department of Palliative Care in [address] [phone] Aylin Smith, CINDY, C.N.P., M.S.N. [address] [place] [phone] 12/24/2023 4:10 PM QUARRYING SPECIALIST Office Visit Department of Oncology in [address] [phone] Ned Alegria M.D. 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 Author Your pain? Symptom Management 9(11/20/2022 2:41 PM QUARRYING SPECIALIST) No Fee-Girma Bush R.N., O.C.N. Note: 05/24/2021: Pain algorithm completed. [facility] [...] IMPRESSION: Favorable response to interval treatment Giorgio Fishman M.D. [facility] CT PROCEDURES * (ABNORMAL) CEA (Carcinoembryonic Antigen) (02/03/2023 10:03 AM CDT) Carcinoembryonic Ag (CEA), S 8.2(H) ng/mL 02/03/2023 3:09 PM CDT [facility] Comment: ----REFERENCE VALUE---- <=3.0 (Non-smokers) Some smokers may have elevated CEA, usually <5.0. ----ADDITIONAL INFORMATION---- The testing method is an immunoenzymatic assay manufactured by [employer]. and performed on the [employer] D[employer]I 800. ? Values obtained with different assay methods or kits may be different and cannot be used interchangeably. ? Test results cannot be interpreted as absolute evidence for the presence or absence of malignant disease. Blood (Blood, Venous) 02/03/2023 10:03 AM CDT 02/03/2023 2:18 PM CDT Giorgio Fishman M.D. LAB BLOOD ADD-ON [facility] [address] [place] [address] [facility] [address] [place] [address] * Bilirubin, Direct (02/03/2023 9:37 AM CDT) Pathologist [facility] Bilirubin, Direct, S <0.2 0.0 - 0.3 mg/dL 02/03/2023 11:09 AM CDT DTL Blood (Blood, Venous) 02/03/2023 9:37 AM CDT 02/03/2023 10:38 AM CDT Giorgio Fishman M.D. LAB BLOOD ADD-ON [facility] [place] [address] [place] [address], [facility] [address] [place] [address] * (ABNORMAL) Comprehensive Metabolic Panel (02/03/2023 9:37 [...] CDT Giorgio Fishman M.D. LAB BLOOD ADD-ON [facility] [address] [place] [address], [facility] DTL [facility] 200 [place] [address] * (ABNORMAL) CBC with Differential, Blood (02/03/2023 [...] CDT Giorgio Fishman M.D. LAB BLOOD ADD-ON [facility] [address] [place] [address], [facility] DTL [facility] [address] [place] [address] documented in this encounter Visit Diagnoses Diagnosis [...] documented as of this encounter Care Teams Skip Hoist Engineer Relationship Specialty Start Date End Date Elsewhere, Pcp PCP - General Internal Medicine 10/14/22 documented as of this encounter
--- OUTSIDE RECORDS SUMMARY | 2023-12-18 17:33 | XMS_ITS | Encounter Summary ---
Author Name Unknown Organization [facility] Address [address] [place] [address] Care Team Providers Care Food Technology Teacher Name Role Phone Elsewhere, Pcp Primary Care Provider Unavailabl e Reason for Visit * Reason Onset Date Comments 12/23/22 labs 12/23/2022 Encounter Details Date Type Department Care Team (Late st Contact Info) Description 12/23/2022 Clinical Communication Department of Oncology in [place], [place] [address] [place] [phone] Sandra Robbins M.SCandidoN., R.N. [address] [place] [phone] 12/23/22 labs Social History Tobacco Use Types Packs/Day Years [...] week 02/15/2022 How often do you attend zoroastrian or lutheran serv ices? Never 02/15/2022 Do you belong to any clubs o r organizations such as zoroastrian groups, unions, fraternal or athletic groups, or [...] Answer Date Recorded PHQ-2 Score 0 04/25/2019 [facility] of Occupat ional Health - Occupational [...] degree (e.g., MA, MS, Ana Lilia, MEd, NEON ELECTRICIAN, GORDO) 02/15/2022 Sex and Gender Information Value Date Recorded Sex Assigned at Male 04/23/2018 1:23 PM CDT Gender Identity Male 04/23/2018 1:23 PM CDT Sexual Orientation Straight 04/23/2018 1: 23 PM CDT documented as of this encounter Plan of Treatment Upcoming Encounters Date Type Department Care Team (Late st Contact Info) Description 12/23/2023 8:30 AM AIRPLANE TUBE BUILDER Clinical Communication Virtual Review in [place], [place] [address] [place] [address] 12/24/2023 10:30 AM AIRPLANE TUBE BUILDER Appointment Department of Radiology, [facility], in [place], [place] [address] [place] [address] BosNoelle jiang P.A.-C., P.A. [address] [place] [phone] 12/24/2023 11:00 AM AIRPLANE TUBE BUILDER Lab Department of Infusion Therapy in [place], [place] [address] [place] [phone] Noelle Reyes P.A.-C., P.A. [address] [place] [phone] 12/24/2023 2:15 PM AIRPLANE TUBE BUILDER Office Visit Department of Palliative Care in [address] [phone] Aylin Smith APRN, C.NCandidoP., M.S.N. [address] [place] [phone] 12/24/2023 4:10 PM AIRPLANE TUBE BUILDER Office Visit Department of Oncology in [place], [place] [address] [place] [phone] Ned Alegria M.D. [address] [place] [phone] documented as of this encounter Goals Goal Patient Goal Type Associated Problems Recent Progress Patient-Stated? Author Your pain? Symptom Management 9(11/20/2022 2:41 PM AIRPLANE TUBE BUILDER) No Phyllis-Girma Bush, R.N., O.C.N. Note: 05/24/2021: Pain algorithm completed. [facility] 05/24/2021: Followup 06/07 via portal per patient [...] documented as of this encounter Care Teams Food Technology Teacher Relationship Specialty Start Date End Date Elsewhere, Pcp PCP - General Internal Medicine 10/14/22 documented as of this encounter
--- NOTE | 2023-12-19 12:37 | PC.NURSE ---
Pt called today to report that he would like to cancel his treatment on Friday. Luis plans to go to [place] on Friday of next week for scans and MD visit and will have a plan after that visit. Nothing further scheduled at this time. [facility] team updated.
== END 2023-12-18 11:59 | disposition home or self-care (01) ==
LOC: CCIC 09:25
PROVIDERS: PCP Family Medicine; Referring Provider Family Medicine; Visit Provider Internal Medicine Hematology & Oncology
DX: C20 Malignant neoplasm of rectum (principal); C78.7 Secondary malignant neoplasm of liver and intrahepatic bile duct; C78.01 Secondary malignant neoplasm of right lung; R19.7 Diarrhea, unspecified; E83.42 Hypomagnesemia; R11.2 Nausea with vomiting, unspecified; G62.0 Drug-induced polyneuropathy; T45.1X5A Adverse effect of antineoplastic and immunosuppressive drugs, initial encounter; G89.4 Chronic pain syndrome; E87.6 Hypokalemia; D69.6 Thrombocytopenia, unspecified; R10.829 Rebound abdominal tenderness, unspecified site
CPT/HCPCS: 36415; 36591; 80048; 83735; 84132; 96361; 96365; 96366; 96376; 99215; G0463; J1100; J1642; J3480; J7030

== ENCOUNTER 2023-12-18 17:54 | Inpatient (IN) | payer BC, SELFPAY ==
--- OUTSIDE RECORDS SUMMARY | 2023-12-18 17:57 | XMS_ITS | Clinical Summary ---
Author Name Unknown Organization [facility] [employer] Address [place], [place] [address] Care Team Providers Care Maintenance Department Manager Name Role Phone Afsaneh Carlton MD Primary Care Provider Allergies Active Allergy Reactions Criticality Noted Date Comments Capecitabine Chest Pain High 02/25/2022 Medications Medication Sig Dispensed Refills Start Date End Date Status Cholecalciferol, Vitamin D3, 400 unit capsule Take 400 Units by mouth. 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 Rectal cancer 04/16/2018 Overview: Colonoscopy 03/2018 rectal cancer, further evaluation at [facility] Colonoscopy 06/2019 inflammatory nodule at surgical anastomosis, repeat in 3 years Resolved Problems Problem Noted Date Diagnosed Date Resolved Date Pseudopolyposis of colon wit hout complication, unspecified part of colon 12/28/2021 01/08/2023 Encounters Date Type Department Care Team Description 12/17/2023 Orders Only [facility] Scanner 1 scan: (1-Ord) [place], ABDOMEN LIMITED, 12/17/2023 12/08/2023 Orders Only [facility] Scanner 1 scan: (1-Ord) [place], CT ABDOMEN PELVIS W CON, 12/08/2023 11/14/2023 Refill [facility] [address] [place] [address] Afsaneh Carlton MD Refill Request (Amlodipine) from [...] 179 cm (5' 10.47) 10/01/2018 8:08 AM TRAINMAN Body Mass Index 29.59 10/01/2018 8:08 AM TRAINMAN Plan of Treatment Health Maintenance Due Date [...] Associated Diagnosis Comments SCAN-ULTRASOUND REPORT 12:00 AM TRAINMAN SCAN-CT INTERPRETATION 12:00 AM TRAINMAN from Last 3 Months Results * SCAN-ULTRASOUND REPORT (12/17/2023 12:00 AM TRAINMAN) Anatomical Region Laterality Modality Other Scanner OTHER * SCAN-CT INTERPRETATION (12/08/2023 12:00 AM TRAINMAN) Anatomical Region Laterality Modality Other Scanner OTHER from Last 3 Months Care Teams Maintenance Department Manager Relationship Specialty Start Date End Date Afsaneh Carlton MD [address] [place] [address] PCP - General Family Practice 02/15/22
--- OUTSIDE RECORDS SUMMARY | 2023-12-18 17:57 | XMS_ITS | Clinical Summary ---
Author Name Unknown Organization [facility] Address [address] [place] [address] Care Team Providers Care Machine Slat Basket Maker Name Role Phone Elsewhere, Pcp Primary Care Provider Unavailabl e Source Comments Patient records contain information from all sites at [facility]. For routine questions regarding patient records, call [phone] during business hours, M-F 8:00 AM - 5:00 PM Central Time. 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 Pulmonary Nodule Computed Tomography Indetermina te 09/27/2019 Nodules Pulmonary Multiple 09/10/2019 Takedown Ileostomy Status Post (Reversal) 2018 Ileostomy Status 12/04/2018 Overview: Added automatically from request for surgery [id number] Thrombocytopenia Drug Induced 12/02/2018 Follow Up Examination [...] rectal cancer, further evaluation at [facility] Resolved Problems Problem Noted Date Diagnosed Date Resolved Date Abdominal Pain 02/19/2022 02/19/2022 Myocardial Infarction Type 2 05/26/2018 05/27/2018 Overview: Capecitabine-induced coronary vasospasm Encounters Date Type Department Care Team Description 12/17/2023 Clinical Communication Department of Palliative Care in [address] [phone] Neela Siu, RRancho. 12/17/2023 Orders Only Pharmacy Prior Auth RO [phone] Xiomara Blood 12/16/2023 Orders Only [facility] - [place]nie [address] [place] [address] [place] [address] Dolores Khanna 12/10/2023 Refill Department of Oncology in [address] [phone] Giorgio Fishman M.D. Med Refill ( pantoprazole) 12/03/2023 1:15 PM BOOTH MANAGER Telemedicine Department of Palliative Care in [address] [phone] Catrachita Padilla M.D., M.S. Malignant Neoplasm Of Rectum (HCC) (Primary Dx); Pain Cancer Associated; Nausea; Palliative Care 12/01/2023 8:30 AM BOOTH MANAGER Office Visit Division of Pain Medicine in [address] [phone] Sean Shen D.O. Pain Cancer Associated (Primary Dx) 11/26/2023 3:45 PM BOOTH MANAGER Clinical Communication Virtual Review in [address] [address] 10/28/2023 10:40 AM BOOTH MANAGER Comprehensive Visit Department of Dermatology in [address] [address] Dakota Smith M.D. 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 Annie Mak L.I.C.S.W., M.S.W. Palliative Care (Primary Dx); Counseling Life Circumstance Problem 10/20/2023 8:30 AM BOOTH MANAGER Telemedicine Department of Palliative Care in [place], [place] [address] [place] [phone] Louisa Padilla, Rodrigo. GeovannaKari Neal APRN, C.N.P., D.N.P. Pain Cancer Associated (Primary Dx); Malignant Neoplasm Of Rectum (HCC); Pain Neuropathic; Pain Low Back Unspecified; Nausea And Vomiting; Constipation; Counseling Life Circumstance Problem; Palliative Care 10/20/2023 Refill Department of Oncology in [address] [phone] Kristi Dominique M.D. Med Change Request 10/14/2023 11:30 AM [facility] Clinical Communication Virtual Review in [address] [address] Pre-visit Intake 09/30/2023 Clinical Communication Division of Pain Medicine in [address] [phone] Marlon Garcia M.D. Nerve block response 09/29/2023 12:26 PM BOOTH MANAGER - 09/29/2023 11:59 PM BOOTH MANAGER Hospital Encounter Division of Pain Medicine in [place], [place] [address] [place] [phone] Yassine Parekh M.D. Pain Chest Wall; Pain Neuropathic; Pain Post Thoracotomy Chronic Discharge Disposition: Home or Self Care 09/26/2023 1:00 PM BOOTH MANAGER Comprehensive Visit Department of Palliative Care in [place], [place] [address] [place] [phone] Giorgio Fishman M.D. Christensen, Kelly J, P.A.-C. Sunita Nguyen R.N. 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 09/26/2023 Orders Only Department of Oncology in [address] [phone] Kristi Dominique M.D. 09/25/2023 Orders Only Department of Oncology in [place], [place] [address] [place] [phone] Kristi Dominique M.D. 09/18/2023 3:05 PM CDT - 09/18/2023 11:59 PM CDT Hospital Encounter Department of Radiology, [facility], in [place], [place] [address] [place] [phone] Giorgio Fishman M.D. 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 Med Change Request (Med [...] Date Recorded PHQ-2 Score 0 04/25/2019 [facility] - Occupational Stress [...] degree (e.g., MA, MS, Ana Lilia, MEd, PAYMENT POSTER, GORDO) 02/15/2022 Sex and Gender Information Value Date Recorded Sex Assigned at Male 04/23/2018 1:23 PM CDT Gender Identity Male 04/23/2018 1:23 PM CDT Sexual Orientation Straight 04/23/2018 1: 23 PM CDT Last Filed Vital Signs Vital Sign Reading Time Taken Comments Blood Pressure 142/107 09/29/2023 1:51 PM BOOTH MANAGER Pulse 110 09/29/2023 1:51 PM BOOTH MANAGER Temperature 35 ??C (95 ??F) 09/29/2023 12:42 PM BOOTH MANAGER Respiratory Rate 15 09/09/2023 2:28 PM CDT Oxygen Saturation 99% 09/29/2023 1:51 PM BOOTH MANAGER Inhaled Oxygen Concentration - - Weight 88.1 kg (194 lb 3.6 oz) 09/09/2023 2:28 P M CDT Height 180.8 cm (5' 11.18) 09/09/2023 2:28 PM C DT Body Mass Index 26.95 09/09/2023 2:28 PM CDT Plan of Treatment Upcoming Encounters Date Type Department Care Team (Late st Contact Info) Description 12/23/2023 8:30 AM BOOTH MANAGER Clinical Communication Virtual Review in [place], [place] [address] [place] [address] 12/24/2023 10:30 AM BOOTH MANAGER Appointment Department of Radiology, [facility], in [place], [place] [address] [place] [address] Noelle Reyes P.A.-C., P.A. [address] [place] [phone] 12/24/2023 11:00 AM BOOTH MANAGER Lab Department of Infusion Therapy in [place], [place] [address] [place] [address] Noelle Reyes P.A.-C., P.A. [address] [place] [phone] 12/24/2023 2:15 PM BOOTH MANAGER Office Visit Department of Palliative Care in [place], [place] [address] [place] [phone] Aylin Smith APRN, C.N.P., M.S.N. [address] [place] [phone] 12/24/2023 4:10 PM BOOTH MANAGER Office Visit Department of Oncology in [place], [place] [address] [place] [phone] Ned Alegria M.D. [address] [place] [phone] Health Maintenance Due Date Last Done Comments [...] Your pain? Symptom Management 9(11/20/2022 2:41 PM BOOTH MANAGER) No Fee-Girma Bush, R.N., O.C.N. Note: 05/24/2021: Pain algorithm completed. [facility] 05/24/2021: Followup 06/07 via [...] that his need for medication may change. [facility] 06/07/2021: Pain rating over the past [...] needed. KFS Medical Devices Implanted Type Area Director Appointment Device Identifier Shelf Expiration Date Model / Serial / Lot Mercer [employer]hn Seprafilm 5x6 - [id number] Implanted:Qty : 1 on 08/21/2018 by Jamin Huerta M.D. at [facility] Hardware e.g. pins/screws/landon s Tutamee 4301-02 / / Prt Cath Infus Mri 6f - [id number] Implanted:Qty : 1 on 04/05/2020 by Afsaneh Stephen M.D. at [facility] Implantable Port [employer].Bard 06/16/2021 [id number] / / [id number] Explanted Type Area Director Appointment Device Identifier Shelf Expiration Date Model / Serial / Lot Prt Cath Infus Mri 8f - [id number] Implanted:Qty : 1 on 09/30/2018 by Afsaneh Stephen M.D. at [facility] Explanted:Qty : 1 on 03/15/2019 at [facility]/[employer] Implantable Port [employer].Bard 10/16/2019 [id number] / / [id number] Procedures Procedure Name Priority Date/Time Associated Diagnosis Comments OUTSIDE US BODY Routine 12/17/2023 11:05 AM BOOTH MANAGER OUTSIDE CT BODY Routine 12/08/2023 11:00 AM BOOTH MANAGER ECG Routine 10/28/2023 12:00 PM BOOTH MANAGER Malignant Neoplasm Of Rectum (HCC) Pain Cancer Associated DERMATOLOGY IMAGE EXAM Routine 10/28/2023 12:00 AM BOOTH MANAGER FL SPINE INTERCOSTAL INJECTION Routine 09/29/2023 1:50 PM BOOTH MANAGER Pain Chest Wall Pain Neuropathic Pain Post Thoracotomy Chronic MR ABDOMEN MRCP WITHOUT AND WITH IV CONTRAST RAD - Routine (most inpatients and all outpatients) 09/18/2023 4:38 PM CDT Malignant Neoplasm Of Rectum (HCC) Secondary Malignant Neoplasm Liver (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 If available, original interpretation can be found on the Media Tab in Chart Review, in Document Viewer, or as an image in QREADS. If a re-interpretation or overread is required please follow defined workflow. ?? Provider Not In System IMG US PROCEDURES Performing Organization Address [facility] de Phone Number IIMS NA * CT ABDOMEN PELVIS W CON-Outside CT Body (12/08/2023 11:00 AM BOOTH MANAGER) 12/08/2023 11:0 0 AM BOOTH MANAGER Narrative IIMS - 12/08/2023 2:27 PM BOOTH MANAGER This order has been created and auto-finalized to support the import of outside images. If available, original interpretation can be found on the Media Tab in Chart Review, in Document Viewer, or as an image in QREADS. If a re-interpretation or overread is required please follow defined workflow. ?? Provider Not In System IMG CT PROCEDURES Performing Organization Address [facility] Co de Phone Number IIMS NA * ECG 12 Lead (10/28/2023 12:00 PM BOOTH MANAGER) Ventricular Rate ECG/Min 118 BPM MUSE SC Interval 146 ms MUSE QRSD Interval 88 ms MUSE QT Interval 326 ms MUSE QTC Interval 456 ms MUSE P Friendship 47 degrees MUSE R Friendship 72 degrees MUSE T Wave Friendship 32 degrees MUSE 10/28/2023 12:0 0 PM BOOTH MANAGER 10/28/2023 12:09 PM BOOTH MANAGER Impressions MUSE - 10/28/2023 12:09 PM BOOTH MANAGER Sinus tachycardia Otherwise normal ECG When compared with ECG of 19-FEB-2022 08:11, No significant change was found Reviewed by HAROLDO Tracy Narrative Procedure Note Robert Recio M.D. - 10/28/2023 IMPRESSION: Sinus tachycardia Otherwise normal ECG When compared with ECG of 19-FEB-2022 08:11, No significant change was found Reviewed by HAROLDO Tracy Louisa Padilla P.A.-C. ECG ORDERABL ES Performing Organization Address [facility] Co de Phone Number MUSE NA * Entire Body-Dermatology Image Exam (10/28/2023 12:00 AM BOOTH MANAGER) Narrative IIMS - 10/29/2023 8:29 AM BOOTH MANAGER This order has been created and auto-finalized to support the import of images acquired without order. The clinical documentation to support these images can be found on the encounter that produced images. Provider Not In System IMG NON RAD IMAGI NG PROCEDURES Performing Organization Address [facility]/ZIP Co de Phone Number IIMS NA * FL Spine Intercostal Injection Right (09/29/2023 1:50 PM BOOTH MANAGER) Narrative Marlon Garcia M.D. - 09/29/2023 1:00 PM BOOTH MANAGER Marlon Garcia M.D. ? 09/29/2023 ??6:26 PM [...] image 40, 61, 68) and segment 5/6 ([id number] image 103) have also very slightly increased in size. Additional linearareas of hypoenhancement along the inferior margin of the prior ablationdefect tract near the hepatic hilum and may represent hilar adenopathy (series 13 image 81). Multipleadditional enlarged hilar and upper retroperitoneal lymph nodes, includinga portal caval conglomerate measuring approximately 3.6 x 2.4 cm ([id number] image 85, series 17 image 141), previously [...] Advance Directives For more information, please contact: [phone] Latest Code Status on File Code Status [...] Answer Comments Full Code: Discussed Care Teams Machine Slat Basket Maker Relationship Specialty Start Date End Date Elsewhere, Pcp PCP - General Internal Medicine 10/14/22
--- OUTSIDE RECORDS SUMMARY | 2023-12-18 17:58 | XMS_ITS | Encounter Summary ---
Author Name Unknown Organization [facility] Address [address] [place] [address] Care Team Providers Care Furniture Removalist'S Assistant Name Role Phone Elsewhere, Pcp Primary Care Provider Unavailabl e Encounter Details Date Type Department Care Team (Latest Contact Info) Description 11/26/2023 3:45 PM AUTO BODY SHOP MANAGER Clinical Communication Virtual Review in [place], [place] 200 [place], [place] [phone] Social History Tobacco Use Types Packs/Day Years [...] week 02/03/2023 How often do you attend [facility] or quaker services? Never 02/03/2023 Do you belong to any clubs o r organizations such as confucianist groups, unions, fraternal or athletic groups, or [...] Answer Date Recorded PHQ-2 Score 0 04/25/2019 [facility] - Occupational [...] degree (e.g., MA, MS, Ana Lilia, MEd, WOOD ROOM SUPERVISOR, GORDO) 02/15/2022 Sex and Gender Information Value Date Recorded Sex Assigned at Male 04/23/2018 1:23 PM CDT Gender Identity Male 04/23/2018 1:23 PM CDT Sexual Orientation Straight 04/23/2018 1: 23 PM CDT documented as of this encounter Plan of Treatment Upcoming Encounters Date Type Department Care Team (Late st Contact Info) Description 12/23/2023 8:30 AM AUTO BODY SHOP MANAGER Clinical Communication Virtual Review in [place], [place] 200 [place] [address] 12/24/2023 10:30 AM AUTO BODY SHOP MANAGER Appointment Department of Radiology, [facility], in [place], [place] [address] [place] [phone] Noelle Reyes P.A.-C., P.A. [address] [place] [phone] 12/24/2023 11:00 AM AUTO BODY SHOP MANAGER Lab Department of Infusion Therapy in [place], [place] [address] [place] [phone] Noelle Reyes P.A.-C., P.A. [address] [facility] [place] [address] 12/24/2023 2:15 PM AUTO BODY SHOP MANAGER Office Visit Department of Palliative Care in [place], [place] [address] [place] [phone] Aylin Smith APRN, C.N.P., M.S.N. [address] [place] [phone] 12/24/2023 4:10 PM AUTO BODY SHOP MANAGER Office Visit Department of Oncology in [place], [place] [address] [place] [phone] Ned Alegria M.D. [address] [place] [phone] documented as of this encounter Goals Goal Patient Goal Type Associated Problems Recent Progress Patient-Stated? Author Your pain? Symptom Management 9(11/20/2022 2:41 PM AUTO BODY SHOP MANAGER) Girma Gaspar, RCandidoN., O.C.N. Note: 05/24/2021: Pain algorithm completed. [facility] 05/24/2021: Followup [...] documented as of this encounter Care Teams Furniture Removalist'S Assistant Relationship Specialty Start Date End Date Elsewhere, Pcp PCP - General Internal Medicine 10/14/22 documented as of this encounter
--- OUTSIDE RECORDS SUMMARY | 2023-12-18 17:58 | XMS_ITS | Encounter Summary ---
Author Name Unknown Organization [facility] Address [address] [place] [address] Care Team Providers Care Field Return Repairer Name Role Phone Elsewhere, Pcp Primary Care Provider Unavailabl e Reason for Visit * Reason Comments Med Refill pantoprazole Encounter Details Date Type Department Care Team ([facility] st Contact Info) Description 12/10/2023 Refill Department of Oncology in [place], [place] [address] [place] [address] Giorgio Fishman M.D. [address] [place] [phone] Med Refill ( pantoprazole) Social History Tobacco [...] often do you attend chur ch or worship services? Never 02/03/2023 Do you belong to any clubs o r organizations such as yazidi groups, unions, fraternal or athletic groups, or [...] Date Recorded PHQ-2 Score 0 04/25/2019 [facility] - Occupational Stress Questionnaire Answer Date Recorded [...] degree (e.g., MA, MS, Ana Lilia, MEd, COMMUNITY CENTER DIRECTOR, GORDO) 02/15/2022 Sex and Gender Information Value Date Recorded Sex Assigned at Male 04/23/2018 1:23 PM CDT Gender Identity Male 04/23/2018 1:23 PM CDT Sexual Orientation Straight 04/23/2018 1: 23 PM CDT documented as of this encounter Plan of Treatment Upcoming Encounters Date Type Department Care Team (Late st Contact Info) Description 12/23/2023 8:30 AM WEED BURNER Clinical Communication Virtual Review in [place], [place] [address] [place] [address] 12/24/2023 10:30 AM WEED BURNER Appointment Department of Radiology, [facility], in [place], [place] [address] [place] [address] Noelle Reyes P.A.-C., P.A. [address] [place] [address] 12/24/2023 11:00 AM WEED BURNER Lab Department of Infusion Therapy in [place], [place] [address] [place] [address] Noelle Reyes P.A.-C., P.A. [address] [place] [phone] 12/24/2023 2:15 PM WEED BURNER Office Visit Department of Palliative Care in [place], [place] [address] [place] [phone] Aylin Smith, CINDY, C.N.P., M.S.N. [address] [place] [phone] 12/24/2023 4:10 PM WEED BURNER Office Visit Department of Oncology in [place], [place] [address] [place] [phone] Ned Alegria M.D. [address] [place] [phone] documented as of this encounter Goals Goal Patient Goal Type Associated Problems Recent Progress Patient-Stated? Author Your pain? Symptom Management 9(11/20/2022 2:41 PM WEED BURNER) Raisa Ferguson-Girma Bush, RCandidoN., O.C.N. Note: 05/24/2021: [...] documented as of this encounter Care Teams Field Return Repairer Relationship Specialty Start Date End Date Elsewhere, Pcp PCP - General Internal Medicine 10/14/22 documented as of this encounter
--- OUTSIDE RECORDS SUMMARY | 2023-12-18 17:58 | XMS_ITS | Encounter Summary ---
Author Name Unknown Organization [facility] Address [address] [place] [address] Care Team Providers Care Project Financial Analyst Name Role Phone Elsewhere, Pcp Primary Care Provider Unavailabl e Encounter Details Date Type Department Care Team (Late st Contact Info) Description 12/17/2023 Clinical Communication Department of Palliative Care in [place], [place] [address] [place] [address] Neela Siu R.N. [address] [place] [address] Social History Tobacco Use Types Packs/Day Years [...] degree (e.g., MA, MS, Ana Lilia, MEd, METAL TEMPLATE MAKER, GORDO) 02/15/2022 Sex and Gender Information Value Date Recorded Sex Assigned at Male 04/23/2018 1:23 PM CDT Gender Identity Male 04/23/2018 1:23 PM CDT Sexual Orientation Straight 04/23/2018 1: 23 PM CDT documented as of this encounter Miscellaneous Notes * Telephone Encounter - Neela Siu RCandidoN. - 12/17/2023 4:41 PM ENTERPRISE SOFTWARE ENGINEER I spoke with PA team and [facility] pharmacy today. Granisetron 1 mg tabs were approved for $0 copay. Xiomara Blood from [facility] shared that the pharmacy will have to order in the medication and should be there 2/ or 2/2 at the latest. Luis has been updated with this information and has follow up scheduled for next week. RPRISE SOFTWARE ENGINEER documented in this encounter Plan of Treatment Upcoming Encounters Date Type Department Care Team (Late st Contact Info) Description 12/23/2023 8:30 AM ENTERPRISE SOFTWARE ENGINEER Clinical Communication Virtual Review in [place], [place] 200 [place] [address] 12/24/2023 10:30 AM ENTERPRISE SOFTWARE ENGINEER Appointment Department of Radiology, [facility], in [place], [place] [address] [place] [phone] Noelle Reyes P.A.-C., P.A. [address] [place] [address] 12/24/2023 11:00 AM ENTERPRISE SOFTWARE ENGINEER Lab Department of Infusion Therapy in [address] [phone] Noelle Reyes P.A.-C., P.A. [address] [place] [address] 12/24/2023 2:15 PM ENTERPRISE SOFTWARE ENGINEER Office Visit Department of Palliative Care in [address] [phone] Aylin Smith, CINDY, C.N.P., M.S.N. [address] [place] [phone] 12/24/2023 4:10 PM ENTERPRISE SOFTWARE ENGINEER Office Visit Department of Oncology in [address] [phone] Ned Alegria M.D. [address] [place] [phone] documented as of this encounter Goals Goal Patient Goal Type Associated Problems Recent Progress Patient-Stated? Author Your pain? Symptom Management 9(11/20/2022 2:41 PM ENTERPRISE SOFTWARE ENGINEER) No Fee-Schroede r, Kelliann C, R.N., O.C.N. Note: 05/24/2021: Pain algorithm completed. [facility] 05/24/2021: Followup 06/07 via portal per patient [...] as of this encounter Care Teams Project Financial Analyst Relationship Specialty Start Date End Date Elsewhere, Pcp PCP - General Internal Medicine 10/14/22 documented as of this encounter
--- OUTSIDE RECORDS SUMMARY | 2023-12-18 17:58 | XMS_ITS | Encounter Summary ---
Author Name Unknown Organization [facility] Address [address] [place] [address] Care Team Providers Care Dressage Instructor Name Role Phone Elsewhere, Pcp Primary Care Provider Unavailabl e Encounter Details Date Type Department Care Team (Late st Contact Info) Description 12/17/2023 Orders Only Pharmacy Prior Auth [facility] [phone] Xiomara Blood Social History Tobacco Use Types [...] week 02/03/2023 How often do you attend [facility] or jain services? Never 02/03/2023 Do you belong to any clubs o r organizations such as bahai groups, unions, fraternal or athletic groups, or [...] degree (e.g., MA, MS, Ana Lilia, MEd, CORPORATE COMPLIANCE OFFICER, GOROD) 02/15/2022 Sex and Gender Information Value Date Recorded Sex Assigned at Male 04/23/2018 1:23 PM CDT Gender Identity Male 04/23/2018 1:23 PM CDT Sexual Orientation Straight 04/23/2018 1: 23 PM CDT documented as of this encounter Plan of Treatment Upcoming Encounters Date Type Department Care Team (Late st Contact Info) Description 12/23/2023 8:30 AM MASSAGE COORDINATOR Clinical Communication Virtual Review in [place], [place] 200 [place] [address] 12/24/2023 10:30 AM MASSAGE COORDINATOR Appointment Department of Radiology, [facility], in [place], [place] [address] [place] [phone] Noelle Reyes P.A.-C., P.A. [address] [place] [phone] 12/24/2023 11:00 AM MASSAGE COORDINATOR Lab Department of Infusion Therapy in [place], [place] [address] [place] [phone] Noelle Reyes P.A.-C., P.A. [address] [facility] [place] [phone] 12/24/2023 2:15 PM MASSAGE COORDINATOR Office Visit Department of Palliative Care in [place], [place] [address] [place] [phone] Aylin Smith APRN, C.N.P., M.S.N. [address] [place] [phone] 12/24/2023 4:10 PM MASSAGE COORDINATOR Office Visit Department of Oncology in [place], [place] [address] [place] [phone] Ned Alegria M.D. [address] [place] [phone] documented as of this encounter Goals Goal Patient Goal Type Associated Problems Recent Progress Patient-Stated? Author Your pain? Symptom Management 9(11/20/2022 2:41 PM MASSAGE COORDINATOR) Girma Gaspar, RCandidoN., O.C.N. Note: 05/24/2021: Pain [...] documented as of this encounter Care Teams Dressage Instructor Relationship Specialty Start Date End Date Elsewhere, Pcp PCP - General Internal Medicine 10/14/22 documented as of this encounter
--- OUTSIDE RECORDS SUMMARY | 2023-12-18 17:58 | XMS_ITS ---
Author Name Unknown Organization [facility] Address [address] [place] [address] Care Team Providers Care Java Tech Name Role Phone Unavailable Unavailable Unavailable Surgery Details Not on file Complications Check Surgery Details section. Procedure Estimated Blood Loss Check Surgery Details section. Procedure Findings Check Surgery Details section. Procedure Specimens Taken Check Surgery Details section.
--- OUTSIDE RECORDS SUMMARY | 2023-12-18 17:58 | XMS_ITS | Referral Summary ---
Author Name Unknown Organization [facility] Address [address] [place] [address] Care Team Providers Care Soap Boiler Name Role Phone Elsewhere, Pcp Primary Care Provider Unavailabl e Source Comments Patient records contain information from all sites at [facility]. For routine questions regarding patient records, call [phone] during business hours, M-F 8:00 AM - 5:00 PM Central Time. Record requests for emergency care only can be directed to [phone] at any time.[facility] Encounters Date Type Department Care Team Description 12/17/2023 Clinical Communication Department of Palliative Care in [place], [place] [address] [place] [phone] Neela Siu, R.N. 12/17/2023 Orders Only Pharmacy Prior Auth RO [phone] Xiomara Blood 12/16/2023 Orders Only [facility] Pharm[facility] - [place] [address] [place] [phone] Dolores Khanna 12/10/2023 Refill Department of Oncology in [place], [place] [address] [place] [address] Giorgio Fishman M.D. Med Refill ( pantoprazole) 12/03/2023 1:15 PM GROUNDHAND Telemedicine Department of Palliative Care in [place], [place] [address] [place] [phone] Catrachita Padilla M.D., M.S. Malignant Neoplasm Of Rectum (HCC) (Primary Dx); Pain Cancer Associated; Nausea; Palliative Care 12/01/2023 8:30 AM GROUNDHAND Office Visit Division of Pain Medicine in [place], [place] [address] [place] [phone] Sean Shen D.O. Pain Cancer Associated (Primary Dx) 11/26/2023 3:45 PM GROUNDHAND Clinical Communication Virtual Review in [place], [place] 200 [place] [address] 10/28/2023 Ancillary Procedure Department of Dermatology 10/28/2023 10:40 AM GROUNDHAND Comprehensive Visit Department of Dermatology in [place], [place] [address] [place] [phone] Dakota Smith M.D. 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 Annie Mak, ToI.C.S.W., M.S.W. Palliative Care (Primary Dx); Counseling Life Circumstance Problem 10/20/2023 Refill Department of Oncology in [address] [phone] Kristi Dominique M.D. Med Change Request 10/20/2023 8:30 AM GROUNDHAND Telemedicine Department of Palliative Care in [place], [place] [address] [place] [phone] Louisa Padilla, P.A.-Kari Handley APRN, C.NNaima, Iris.N.P. Pain Cancer Associated (Primary Dx); Malignant Neoplasm Of Rectum (HCC); Pain Neuropathic; Pain Low Back Unspecified; Nausea And Vomiting; Constipation; Counseling Life Circumstance Problem; Palliative Care 10/14/2023 11:30 AM GROUNDHAND Clinical Communication Virtual Review in [place], [place] 200 [place] [address] Pre-visit Intake 09/30/2023 Clinical Communication Division of Pain Medicine in [place], [place] [address] [place] [phone] Marlon Garcia M.D. Nerve block response 09/29/2023 12:26 PM GROUNDHAND - 09/29/2023 11:59 PM GROUNDHAND Hospital Encounter Division of Pain Medicine in [address] [phone] Yassine Parekh M.D. Pain Chest Wall; Pain Neuropathic; Pain Post Thoracotomy Chronic Discharge Disposition: Home or Self Care 09/26/2023 Orders Only Department of Oncology in [address] [phone] Kristi Dominique M.D. 09/26/2023 Orders Only Department of Oncology in [address] [phone] Kristi Dominique M.D. 09/26/2023 1:00 PM GROUNDHAND Comprehensive Visit Department of Palliative Care in [address] [phone] Giorgio Fishman M.D. Christensen, Kelly J, Sunita Khan R.N. 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 09/18/2023 Refill Department of Oncology in [address] [phone] Giorgio Fishman M.D. Med Change Request (Med refill : Amlodipine besylate/) 09/18/2023 3:05 PM CDT - 09/18/2023 11:59 PM CDT Hospital Encounter Department of Radiology, [facility], in [place], [place] [address] [place] [address] Giorgio Fishman M.D. Malignant Neoplasm Of Rectum [...] 240 g 3 10/28/20 23 Active omega 2-ati-hln-fish oil 1,000 mg (120 mg-180 mg) capsule [...] Overview: Added automatically from request for surgery [id number] Secondary Malignant Neoplasm Of Lung Laterality Unknown 03/30/2020 Pulmonary Nodule Computed Tomography Indetermina te 09/27/2019 Nodules Pulmonary Multiple 09/10/2019 Takedown Ileostomy Status Post (Reversal) 2018 Ileostomy Status 12/04/2018 Overview: Added automatically from request for surgery [id number] Thrombocytopenia Drug Induced 12/02/2018 Follow Up Examination [...] rectal cancer, further evaluation at [facility] Resolved Problems Problem Noted Date Diagnosed Date [...] often do you attend chur ch or taoism services? Never 02/03/2023 Do you belong to [...] Answer Date Recorded PHQ-2 Score 0 04/25/2019 [facility] Occupat ional Health - Occupational Stress [...] degree (e.g., MA, MS, Ana Lilia, MEd, DROP HAMMER MECHANIC, GORDO) 02/15/2022 Sex and Gender Information Value Date Recorded Sex Assigned at Male 04/23/2018 1:23 PM CDT Gender Identity Male 04/23/2018 1:23 PM CDT Sexual Orientation Straight 04/23/2018 1: 23 PM CDT Last Filed Vital Signs Vital Sign Reading Time Taken Comments Blood Pressure 142/107 09/29/2023 1:51 PM GROUNDHAND Pulse 110 09/29/2023 1:51 PM GROUNDHAND Temperature 35 ??C (95 ??F) 09/29/2023 12:42 PM GROUNDHAND Respiratory Rate 15 09/09/2023 2:28 PM CDT Oxygen Saturation 99% 09/29/2023 1:51 PM GROUNDHAND Inhaled Oxygen Concentration - - Weight 88.1 kg (194 lb 3.6 oz) 09/09/2023 2:28 P M CDT Height 180.8 cm (5' 11.18) 09/09/2023 2:28 PM C DT Body Mass Index 26.95 09/09/2023 2:28 PM CDT Plan of Treatment Upcoming Encounters Date Type Department Care Team (Late st Contact Info) Description 12/23/2023 8:30 AM GROUNDHAND Clinical Communication Virtual Review in [place], [place] [address] [place] [address] 12/24/2023 10:30 AM GROUNDHAND Appointment Department of Radiology, [facility], in [place], [place] [address] [place] [phone] Noelle Reyes, PCandidoA.-C., P.A. [address] [place] [phone] 12/24/2023 11:00 AM GROUNDHAND Lab Department of Infusion Therapy in [place], [place] [address] [place] [phone] Noelle Reyes P.A.-C., P.A. [address] [place] [phone] 12/24/2023 2:15 PM GROUNDHAND Office Visit Department of Palliative Care in [place], [place] [address] [place] [phone] Aylin Smith, CINDY, C.N.P., M.S.N. [address] [place] [phone] 12/24/2023 4:10 PM GROUNDHAND Office Visit Department of Oncology in [place], [place] [address] [place] [phone] Ned Alegria M.D. [address] [place] [phone] Goals Goal Patient Goal Type Associated Problems Recent Progress Patient-Stated? Author Your pain? Symptom Management 9(11/20/2022 2:41 PM GROUNDHAND) No Fee-Girma Bush, R.N., O.C.N. Note: 05/24/2021: Pain algorithm completed. [facility] 05/24/2021: Followup 06/07 via portal per patient [...] needed. KFS Medical Devices Implanted Type Area Business Support Manager Device Identifier Shelf Expiration Date Model / Serial / Lot Mercer [employer] Seprafilm 5x6 - [id number] Implanted:Qty : 1 on 08/21/2018 by Jamin Huerta M.D. at [facility] Hardware e.g. pins/screws/landon s [employer] [id number] / / Prt Cath Infus Mri 6f - [id number] Implanted:Qty : 1 on 04/05/2020 by Afsaneh Stephen M.D. at [facility] Implantable [employer] 06/16/2021 [id number] / / [id number] Explanted Type Area Business Support Manager Device Identifier Shelf Expiration Date Model / Serial / Lot Prt Cath Infus Mri 8f - [id number] Implanted:Qty : 1 on 09/30/2018 by Afsaneh Stephen M.D. at [facility] Explanted:Qty : 1 on 03/15/2019 at [facility]/[place] Implantable [employer] 10/16/2019 [id number] / / [id number] Procedures Procedure Name Priority Date/Time Associated Diagnosis Comments OUTSIDE US BODY Routine 12/17/2023 11:[address] BODY Routine 12/08/2023 11:00 AM GROUNDHAND ECG Routine 10/28/2023 12:00 PM GROUNDHAND Malignant Neoplasm Of Rectum (HCC) Pain Cancer Associated DERMATOLOGY IMAGE EXAM Routine 10/28/2023 12:00 AM GROUNDHAND FL SPINE INTERCOSTAL INJECTION Routine 09/29/2023 1:50 PM GROUNDHAND Pain Chest Wall Pain Neuropathic Pain Post Thoracotomy Chronic MR ABDOMEN MRCP WITHOUT AND WITH IV CONTRAST RAD - Routine (most inpatients and all outpatients) 09/18/2023 4:38 PM CDT Malignant Neoplasm Of Rectum (HCC) Secondary Malignant Neoplasm Liver (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 If available, original interpretation can be found on the Media Tab in Chart Review, in Document Viewer, or as an image in QREADS. If a re-interpretation or overread is required please follow defined workflow. ?? Provider Not In System IMG US PROCEDURES Performing Organization Address [facility] Co de Phone Number IIMS NA * CT ABDOMEN PELVIS W CON-Outside CT Body (12/08/2023 11:00 AM GROUNDHAND) 12/08/2023 11:0 0 AM GROUNDHAND Narrative IIMS - 12/08/2023 2:27 PM GROUNDHAND This order has been created and auto-finalized [...] * ECG 12 Lead (10/28/2023 12:00 PM GROUNDHAND) Ventricular Rate ECG/Min 118 BPM MUSE SD Interval 146 ms MUSE QRSD Interval 88 ms MUSE QT Interval 326 ms MUSE QTC Interval 456 ms MUSE P [place] 47 degrees MUSE R [place] 72 degrees MUSE T Wave [place] 32 degrees MUSE 10/28/2023 12:0 0 PM GROUNDHAND 10/28/2023 12:09 PM GROUNDHAND Impressions MUSE - 10/28/2023 12:09 PM GROUNDHAND Sinus tachycardia Otherwise normal ECG When compared with ECG of 19-FEB-2022 08:11, No significant change was found Reviewed by HAROLDO Tracy Narrative Procedure Note Robert Recio M.D. - 10/28/2023 IMPRESSION: Sinus tachycardia Otherwise normal ECG When compared with ECG of 19-FEB-2022 08:11, No significant change was found Reviewed by HAROLDO Tracy Louisa Padilla P.A.-C. ECG ORDERABL ES Performing Organization Address [facility] de Phone Number MUSE NA * Entire Body-Dermatology Image Exam (10/28/2023 12:00 AM GROUNDHAND) Narrative IIMS - 10/29/2023 8:29 AM GROUNDHAND This order has been created and auto-finalized to support the import of images acquired without order. The clinical documentation to support these images can be found on the encounter that produced images. Provider Not In System IMG NON RAD IMAGI NG PROCEDURES Performing Organization Address [facility] Co de Phone Number IIMS NA * FL Spine Intercostal Injection Right (09/29/2023 1:50 PM GROUNDHAND) Narrative Marlon Garcia M.D. - 09/29/2023 1:00 PM GROUNDHAND Marlon Garcia M.D. ? 09/29/2023 ??6:26 PM [...] image 40, 61, 68) and segment 5/6 ([id number] image 103) have also very slightly increased in size. Additional linearareas of hypoenhancement along the inferior margin of the prior ablationdefect tract near the hepatic hilum and may represent hilar adenopathy (series 13 image 81). Multipleadditional enlarged hilar and upper retroperitoneal lymph nodes, includinga portal caval conglomerate measuring approximately 3.6 x 2.4 cm ([id number] image 85, series 17 image 141), previously [...] Advance Directives For more information, please contact: [phone] Latest Code Status on File Code Status [...] Answer Comments Full Code: Discussed Care Teams Soap Boiler Relationship Specialty Start Date End Date Elsewhere, Pcp PCP - General Internal Medicine 10/14/22
--- OUTSIDE RECORDS SUMMARY | 2023-12-18 17:58 | XMS_ITS | Encounter Summary ---
Author Name Unknown Organization [facility] Address [address] [place] [address] Care Team Providers Care Supply And Distribution Manager Name Role Phone Elsewhere, Pcp Primary Care Provider Unavailabl e Reason for Referral * Outpatient (Routine) - Authorized Specialty Diagnoses / Procedures Referred By Halima t Referred To Contact Palliative Medicine Diagnoses n/a Catrachita Padilla M.D., M.S. [address] [place] [phone] [facility] Referral ID Status Reason Start Date Expiration Date V isits Requested Visits Authorized [id number] Authorized 12/04/2023 12/03/2026 1 1 Scheduling Instructions In person for prescribing, needs to coordinate with upcoming onc visits. Urgent ok if needed. TAMPER * Medication Prior Authorization - Authorized Specialty Diagnoses / Procedures Referred By Contlucas t Referred To Contact Catrachita Padilla M.D., M.S. [address] [place] [phone] Referral ID Status Reason Start Date Expiration Date V isits Requested Visits Authorized [id number] Authorized 12/16/2023 12/16/2024 1 1 TAMPER Reason for Visit * Outpatient (Routine) - Closed Specialty Diagnoses / Procedures Referred By Contac t Referred To Contact Palliative Medicine Diagnoses . Kari Austin APRN, C.N.P., D.N.P. [address] [place] [address] [facility] Referral ID Status Reason Start Date Expiration Date Visits Re quested Visits Authorized [id number] Closed 10/20/2023 10/19/2026 1 1 Encounter Details Date Type Department Care Team (Late st Contact Info) Description 12/03/2023 1:15 PM TIE TAMPER Telemedicine Department of Palliative Care in [place], [place] [address] [place] [phone] Catrachita Padilla M.D., M.S. [address] [place] [phone] Malignant Neoplasm Of Rectum (HCC) (Primary Dx); [...] week 02/03/2023 How often do you attend [facility] or bahai services? Never 02/03/2023 Do you belong to any clubs o r organizations such as rastafari groups, unions, fraternal or athletic groups, or [...] degree (e.g., MA, MS, Ana Lilia, MEd, SENIOR WATER RESOURCES ENGINEER, GORDO) 02/15/2022 Sex and Gender Information Value Date Recorded Sex Assigned at Male 04/23/2018 1:23 PM CDT Gender Identity Male 04/23/2018 1:23 PM CDT Sexual Orientation Straight 04/23/2018 1: 23 PM CDT documented as of this encounter Progress Notes * Catrachita Padilla M.D., M.S. - 12/03/2023 1:15 PM CST SUBJECTIVE CHIEF COMPLAINT/REASON FOR VISIT Luis Tabares is a 43-year-old man from [place], [place] with metastatic rectal cancer who is [...] but irritating his stomach) will be helpful. [place] Scores Who completed this form?: Patient No [...] Luis Tabares is a 43-year-old man from [place], [place] with metastatic rectal cancer who is [...] to controlled substance prescribing: rectal cancer [place] PRODUCTION OR PLANT ENGINEER Review: We have reviewed the patient's record [...] 09/26/2023 in Department of Palliative Care in [place], [place] ORT Total Score (max 26) 1 [...] technology by Catrachita Padilla M.D., M.S. in [facility] to the patient. Catrachita Padilla M.D., M.S. TAMPER documented in this encounter Plan of Treatment Upcoming Encounters Date Type Department Care Team (Late st Contact Info) Description 12/23/2023 8:30 AM TIE TAMPER Clinical Communication Virtual Review in [place], [place] 200 [place] [address] 12/24/2023 10:30 AM TIE TAMPER Appointment Department of Radiology, [facility] in [place], [place] [address] [place] [phone] Noelle Reyes P.A.-C., P.A. [address] [place] [phone] 12/24/2023 11:00 AM TIE TAMPER Lab Department of Infusion Therapy in [place], [place] [address] [place] [phone] Noelle Reyes P.A.[place]., P.A. [address] [place] [phone] 12/24/2023 2:15 PM TIE TAMPER Office Visit Department of Palliative Care in [place], [place] [address] [place] [phone] Aylin Smith, CINDY, C.N.P., M.S.N. [address] [place] [phone] 12/24/2023 4:10 PM TIE TAMPER Office Visit Department of Oncology in [place], [place] [address] [place] [phone] Ned Alegria M.D. [address] [place] [phone] Scheduled Referrals Name Type Priority Associated Diagnoses Order Schedule Palliative Care office visit (clinic) Outpatient Referral Routine Expected: 12/24/2023, Expires: 03/04/2025 documented as of this encounter Goals Goal Patient Goal Type Associated Problems Recent Progress Patient-Stated? Author Your pain? Symptom Management 9(11/20/2022 2:41 PM TIE TAMPER) No Fee-Schroede r, Kelliann C, RCandidoN., O.C.N. Note: 05/24/2021: Pain algorithm completed. [facility] 05/24/2021: Followup 06/07 via portal per patient [...] documented as of this encounter Care Teams Supply And Distribution Manager Relationship Specialty Start Date End Date Elsewhere, Pcp PCP - General Internal Medicine 10/14/22 documented as of this encounter
--- OUTSIDE RECORDS SUMMARY | 2023-12-18 17:58 | XMS_ITS | Encounter Summary ---
Author Name Unknown Organization [facility] Address [address] [place] [address] Care Team Providers Care Java J2Ee Software Engineer Name Role Phone Elsewhere, Pcp Primary Care Provider Unavailabl e Encounter Details Date Type Department Care Team (Late st Contact Info) Description 12/16/2023 Orders Only [facility] [place] [address] [place] [place] [address] [place] [phone] Dolores Khanna Social History Tobacco Use [...] often do you attend chur ch or gnosticist services? Never 02/03/2023 Do you belong to [...] 04/25/2019 [facility] - Occupational Stress Questionnaire Answer Date [...] degree (e.g., MA, MS, Ana Lilia, MEd, STUDIO OPERATION ENGINEER, GORDO) 02/15/2022 Sex and Gender Information Value Date Recorded Sex Assigned at Male 04/23/2018 1:23 PM CDT Gender Identity Male 04/23/2018 1:23 PM CDT Sexual Orientation Straight 04/23/2018 1: 23 PM CDT documented as of this encounter Plan of Treatment Upcoming Encounters Date Type Department Care Team (Late st Contact Info) Description 12/23/2023 8:30 AM SIDING APPLICATOR Clinical Communication Virtual Review in [place], [place] [address] [place] [address] 12/24/2023 10:30 AM SIDING APPLICATOR Appointment Department of Radiology, [facility], in [place], [place] [address] [place] [phone] Noelle Reyes P.A.-C., P.A. [address] [place] [phone] 12/24/2023 11:00 AM SIDING APPLICATOR Lab Department of Infusion Therapy in [place], [place] [address] [place] [phone] Noelle Reyes P.A.-C., P.A. [address] [place] [phone] 12/24/2023 2:15 PM SIDING APPLICATOR Office Visit Department of Palliative Care in [place], [place] [address] [place] [phone] Aylin Smith, CINDY, C.N.P., M.S.N. [address] [place] [phone] 12/24/2023 4:10 PM SIDING APPLICATOR Office Visit Department of Oncology in [place], [place] [address] [place] [phone] Ned Alegria M.D. [address] [place] [phone] documented as of this encounter Goals Goal Patient Goal Type Associated Problems Recent Progress Patient-Stated? Author Your pain? Symptom Management 9(11/20/2022 2:41 PM SIDING APPLICATOR) No Fee-Girma Bush, RCandidoN., O.C.N. Note: 05/24/2021: Pain algorithm completed. [facility] 05/24/2021: Followup 06/07 via portal per patient [...] Recommendations at initial call and response: Mr. Tbaares had a flare up of pain after [...] documented as of this encounter Care Teams Java J2Ee Software Engineer Relationship Specialty Start Date End Date Elsewhere, Pcp PCP - General Internal Medicine 10/14/22 documented as of this encounter
--- OUTSIDE RECORDS SUMMARY | 2023-12-18 17:58 | XMS_ITS ---
Author Name Unknown Organization [facility] Address [address] [place] [address] Care Team Providers Care Art Tracer Name Role Phone Elsewhere, Pcp Primary Care Provider Unavailabl e Active Problems Problem Noted Date Diagnosed Date Palliative Care 10/23/2023 Abdominal Pain 02/19/2022 Secondary Malignant Neoplasm Liver 02/18/2022 Secondary Malignant Neoplasm Colon 07/13/2020 Overview: Added automatically from request for surgery [id number] Secondary Malignant Neoplasm Of Lung Laterality Unknown 03/30/2020 Pulmonary Nodule Computed Tomography Indetermina te 09/27/2019 Nodules Pulmonary Multiple 09/10/2019 Takedown Ileostomy Status Post (Reversal) 2018 Ileostomy Status 12/04/2018 Overview: Added automatically from request for surgery [id number] Thrombocytopenia Drug Induced 12/02/2018 Follow Up Examination [...] rectal cancer, further evaluation at [facility] Current Oncology Plans Panitumumab / Irinotecan* Plan [...] On Elapsed Days Session Dose Total Dose [id number] 06/13/2021 2 1,200 cGy 3,600 cGy [id number] Celiac 09/20/2020 20 350 cGy 5,250 cGy [id number] Med 09/20/2020 20 350 cGy 5,250 cGy [id number] 07/01/2018 41 230 cGy 6,440 cGy Lifetime [...]
--- OUTSIDE RECORDS SUMMARY | 2023-12-18 17:58 | XMS_ITS | Encounter Summary ---
Author Name Unknown Organization [facility] Address [address] [place] [address] Care Team Providers Care Money Market Dealer Name Role Phone Elsewhere, Pcp Primary Care Provider Unavailabl e Reason for Visit * Appointment Request (Routine) - Closed Specialty Diagnoses / Procedures Referred By Contac t Referred To Contact Pain Medicine Referral ID Status Reason Start Date Expiration Date Visits Re quested Visits Authorized [id number] Closed 11/03/2023 11/02/2024 1 1 Encounter Details Date Type Department Care Team (Late st Contact Info) Description 12/01/2023 8:30 AM BUFFING MACHINE OPERATOR SEMIAUTOMATIC Office Visit Division of Pain Medicine in [place], [place] [address] [place] [phone] Sean Shen D.O. [address] [place] [phone] Pain Cancer Associated (Primary Dx) Social History [...] Answer Date Recorded PHQ-2 Score 0 04/25/2019 [facility] [place] of Occupat ional Health - Occupational Stress [...] degree (e.g., MA, MS, Ana Lilia, MEd, CLINICAL ASST, GORDO) 02/15/2022 Sex and Gender Information Value [...] spent a total of 20 minutes in mwo-hwer-qw-face time performing a review of the recordand/or discussion with the patient/caregiver as described above. Total time spent with patient: 20 minutes. Sean Shen DO ING MACHINE OPERATOR SEMIAUTOMATIC documented in this encounter Plan of Treatment Upcoming Encounters Date Type Department Care Team (Late st Contact Info) Description 12/23/2023 8:30 AM BUFFING MACHINE OPERATOR SEMIAUTOMATIC Clinical Communication Virtual Review in [address] [address] 12/24/2023 10:30 AM BUFFING MACHINE OPERATOR SEMIAUTOMATIC Appointment Department of Radiology, [facility] in [address] [phone] Noelle Reyes P.A.-C., P.A. [address] [place] [phone] 12/24/2023 11:00 AM BUFFING MACHINE OPERATOR SEMIAUTOMATIC Lab Department of Infusion Therapy in [address] [phone] Noelle Reyes, P.A.-C., P.A. [address] [place] [phone] 12/24/2023 2:15 PM BUFFING MACHINE OPERATOR SEMIAUTOMATIC Office Visit Department of Palliative Care in [address] [phone] Luis, Aylin Fernando APRN, C.N.P., M.S.N. [address] [place] [phone] 12/24/2023 4:10 PM BUFFING MACHINE OPERATOR SEMIAUTOMATIC Office Visit Department of Oncology in [place], [place] [address] [place] [address] Ned Alegria M.D. [address] [place] [phone] documented as of this encounter Goals Goal Patient Goal Type Associated Problems Recent Progress Patient-Stated? Author Your pain? Symptom Management 9(11/20/2022 2:41 PM BUFFING MACHINE OPERATOR SEMIAUTOMATIC) Raisa Ferguson-Girma Bush R.N., O.C.N. Note: 05/24/2021: Pain algorithm completed. [facility] 05/24/2021: Followup 06/07 [...] need for medication may change. [facility] 06/07/2021: Pain rating over the past [...] documented as of this encounter Care Teams Money Market Dealer Relationship Specialty Start Date End Date Elsewhere, Pcp PCP - General Internal Medicine 10/14/22 documented as of this encounter
--- OUTSIDE RECORDS SUMMARY | 2023-12-18 17:59 | XMS_ITS | Encounter Summary ---
Author Name Unknown Organization [facility] Address [address] [place] [address] Care Team Providers Care Lift Truck Operator Name Role Phone Elsewhere, Pcp Primary [...] week 02/03/2023 How often do you attend [facility] health system or judaism services? Never 02/03/2023 Do you [...] Answer Date Recorded PHQ-2 Score 0 04/25/2019 [facility] of Occupat ional Health - Occupational [...] degree (e.g., MA, MS, Ana Lilia, MEd, SYSTEMS SOFTWARE DEVELOPER, GORDO) 02/15/2022 Sex and Gender Information Value Date Recorded Sex Assigned at Male 04/23/2018 1:23 PM CDT Gender Identity Male 04/23/2018 1:23 PM CDT Sexual Orientation Straight 04/23/2018 1: 23 PM CDT documented as of this encounter Plan of Treatment Upcoming Encounters Date Type Department Care Team (Late st Contact Info) Description 12/23/2023 8:30 AM MANAGER FLIGHT OPERATIONS Clinical Communication Virtual Review in [place], [place] 200 [place] [address] 12/24/2023 10:30 AM MANAGER FLIGHT OPERATIONS Appointment Department of Radiology, [facility], in [place], [place] [address] [place] [phone] Noelle Reyes P.A.Winston., P.A. 701 [place] [phone] 12/24/2023 11:00 AM MANAGER FLIGHT OPERATIONS Lab Department of Infusion Therapy in [place], [place] [address] [place] [phone] Noelle Reyes P.A.-C., P.A. 701 [place] [phone] 12/24/2023 2:15 PM MANAGER FLIGHT OPERATIONS Office Visit Department of Palliative Care in [place], [place] [address] [place] [phone] Aylin Smith, CINDY CCandidoN.P., M.S.N. [address] [place] [phone] 12/24/2023 4:10 PM MANAGER FLIGHT OPERATIONS Office Visit Department of Oncology in [place], [place] [address] [place] [phone] Ned Alegria M.D. [address] [place] [phone] documented as of this encounter Goals Goal Patient Goal Type Associated Problems Recent Progress Patient-Stated? Author Your pain? Symptom Management 9(11/20/2022 2:41 PM MANAGER FLIGHT OPERATIONS) No Phyllis-Girma Bush, R.N., O.C.N. Note: 05/24/2021: Pain algorithm completed. [facility] 05/24/2021: Followup 06/07 via portal per patient [...] DERMATOLOGY IMAGE EXAM Routine 10/28/2023 12:00 AM MANAGER FLIGHT OPERATIONS documented in this encounter Results * Entire Body-Dermatology Image Exam (10/28/2023 12:00 AM MANAGER FLIGHT OPERATIONS) Narrative [facility] - 10/29/2023 8:29 AM MANAGER FLIGHT OPERATIONS This order has been created and auto-finalized [...] documented as of this encounter Care Teams Lift Truck Operator Relationship Specialty Start Date End Date Elsewhere, Pcp PCP - General Internal Medicine 10/14/22 documented as of this encounter
--- OUTSIDE RECORDS SUMMARY | 2023-12-18 17:59 | XMS_ITS | Encounter Summary ---
Author Name Unknown Organization [facility] Address [address] [place] [address] Care Team Providers Care Tub Washer Name Role Phone Elsewhere, Pcp Primary Care Provider Unavailabl e Reason for Visit * Reason Onset Date Comments Pre-visit Intake 10/14/2023 Encounter Details Date Type Department Care Team (Latest Contact Info) Description 10/14/2023 11:30 AM WRAPPER HANDS SPRAYER Clinical Communication Virtual Review in [place], [place] 200 [place], [place] [address] Pre-visit Intake Social History Tobacco Use Types [...] often do you attend chur ch or muslim services? Never 02/03/2023 Do you belong to [...] Answer Date Recorded PHQ-2 Score 0 04/25/2019 [facility] [place] of Occupat ional Health - Occupational Stress [...] degree (e.g., MA, MS, Ana Lilia, MEd, GYMNASTIC TEACHER, GORDO) 02/15/2022 Sex and Gender Information Value Date Recorded Sex Assigned at Male 04/23/2018 1:23 PM CDT Gender Identity Male 04/23/2018 1:23 PM CDT Sexual Orientation Straight 04/23/2018 1: 23 PM CDT documented as of this encounter Plan of Treatment Upcoming Encounters Date Type Department Care Team (Late st Contact Info) Description 12/23/2023 8:30 AM WRAPPER HANDS SPRAYER Clinical Communication Virtual Review in [place], [place] [address] [place] [address] 12/24/2023 10:30 AM WRAPPER HANDS SPRAYER Appointment Department of Radiology, [facility], in [place], [place] [address] [place] [address] Noelle Reyes P.A.-C., P.A. 701 [place] [phone] 12/24/2023 11:00 AM WRAPPER HANDS SPRAYER Lab Department of Infusion Therapy in [place], [place] [address] [place] [phone] Noelle Reyes P.A.-C., P.A. [address] [place] [phone] 12/24/2023 2:15 PM WRAPPER HANDS SPRAYER Office Visit Department of Palliative Care in [place], [place] [address] [place] [phone] Aylin Smith, CINDY, C.N.P., M.S.N. [address] [place] [phone] 12/24/2023 4:10 PM WRAPPER HANDS SPRAYER Office Visit Department of Oncology in [address] [phone] Ned Alegria M.D. [address] [place] [phone] documented as of this encounter Goals Goal Patient Goal Type Associated Problems Recent Progress Patient-Stated? Author Your pain? Symptom Management 9(11/20/2022 2:41 PM WRAPPER HANDS SPRAYER) No Fee-Girma Bush, RCandidoN., O.C.N. Note: 05/24/2021: Pain algorithm completed. [facility] [place]: Followup 06/07 via portal per patient [...] documented as of this encounter Care Teams Tub Washer Relationship Specialty Start Date End Date Elsewhere, Pcp PCP - General Internal Medicine 10/14/22 documented as of this encounter
--- OUTSIDE RECORDS SUMMARY | 2023-12-18 17:59 | XMS_ITS | Encounter Summary ---
Author Name Unknown Organization [facility] Address [address] [place] [address] Care Team Providers Care Bottom Liner Name Role Phone Elsewhere, Pcp Primary Care Provider Unavailabl e Encounter Details Date Type Department Care Team (Late st Contact Info) Description 09/26/2023 Orders Only Department of Oncology in [place], [place] [address] [place] [phone] Kristi Dominique M.D. [address] [place] [phone] Social History Tobacco Use Types [...] How often do you attend chur or taoism services? Never 02/03/2023 Do you belong to any clubs o r organizations such as zoroastrianism groups, unions, fraternal or athletic groups, or [...] Answer Date Recorded PHQ-2 Score 0 04/25/2019 [facility] - Occupational Stress Questionnaire Answer Date Recorded [...] degree (e.g., MA, MS, Ana Lilia, MEd, RELATIONSHIP MANAGER, GORDO) 02/15/2022 Sex and Gender Information Value Date Recorded Sex Assigned at Male 04/23/2018 1:23 PM CDT Gender Identity Male 04/23/2018 1:23 PM CDT Sexual Orientation Straight 04/23/2018 1: 23 PM CDT documented as of this encounter Plan of Treatment Upcoming Encounters Date Type Department Care Team (Late st Contact Info) Description 12/23/2023 8:30 AM WAREHOUSING TECHNICIAN Clinical Communication Virtual Review in [place], [place] [address] [place] [address] 12/24/2023 10:30 AM WAREHOUSING TECHNICIAN Appointment Department of Radiology, [facility], in [place], [place] [address] [place] [phone] Noelle Reyes PKaycee.Winston., P.A. [address] [place] [phone] 12/24/2023 11:00 AM WAREHOUSING TECHNICIAN Lab Department of Infusion Therapy in [place], [place] [address] [place] [phone] Noelle Reyes P.A.-C., P.A. [address] [place] [phone] 12/24/2023 2:15 PM WAREHOUSING TECHNICIAN Office Visit Department of Palliative Care in [place], [place] [address] [place] [phone] Aylin Smith, CINDY, C.N.P., M.S.N. [address] [place] [phone] 12/24/2023 4:10 PM WAREHOUSING TECHNICIAN Office Visit Department of Oncology in [place], [place] [address] [place] [phone] Ned Alegria M.D. [address] [place] [phone] documented as of this encounter Goals Goal Patient Goal Type Associated Problems Recent Progress Patient-Stated? Author Your pain? Symptom Management 9(11/20/2022 2:41 PM WAREHOUSING TECHNICIAN) No Phyllis-Girma Bush, RCandidoN., O.C.N. Note: 05/24/2021: Pain algorithm completed. [facility] 05/24/2021: Followup 06/07 via [...] documented as of this encounter Care Teams Bottom Liner Relationship Specialty Start Date End Date Elsewhere, Pcp PCP - General Internal Medicine 10/14/22 documented as of this encounter
--- OUTSIDE RECORDS SUMMARY | 2023-12-18 17:59 | XMS_ITS | Encounter Summary ---
Author Name Unknown Organization [facility] Address [address] [place] [address] Care Team Providers Care Mother Superior Name Role Phone Elsewhere, Pcp Primary Care [...] to Thigh FDG Noelle Reyes P.A.-C., P.A. 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 [address] [place] [phone] [facility] Referral ID Status Reason Start Date Expiration Date V isits Requested Visits Authorized [id number] Authorized 10/27/2023 10/26/2026 1 1 OR PRINCIPAL ARCHITECT Encounter Details Date Type Department Care Team (Late st Contact Info) Description 10/27/2023 Orders Only Department of Oncology in [place], [place] [address] [place] [phone] Noelle Reyes P.A.-C., P.A. [address] [place] [phone] Malignant Neoplasm Of Rectum (HCC) (Primary Dx); [...] How often do you attend [facility] or temple services? Never 02/03/2023 Do you belong to any clubs o r organizations such as moravian groups, unions, fraternal or athletic groups, or [...] [facility]at ional [facility] - Occupational Stress Questionnaire Answer Date [...] degree (e.g., MA, MS, Ana Lilia, MEd, LOADERS, GORDO) 02/15/2022 Sex and Gender Information Value Date Recorded Sex Assigned at Male 04/23/2018 1:23 PM CDT Gender Identity Male 04/23/2018 1:23 PM CDT Sexual Orientation Straight 04/23/2018 1: 23 PM CDT documented as of this encounter Plan of Treatment Upcoming Encounters Date Type Department Care Team (Late st Contact Info) Description 12/23/2023 8:30 AM SENIOR PRINCIPAL ARCHITECT Clinical Communication Virtual Review in [place], [place] 200 [place] [address] 12/24/2023 10:30 AM SENIOR PRINCIPAL ARCHITECT Appointment Department of Radiology, [facility], in [place], [place] [address] [place] [phone] Noelle Reyes P.A.-C., P.A. [address] [place] [phone] 12/24/2023 11:00 AM SENIOR PRINCIPAL ARCHITECT Lab Department of Infusion Therapy in [place], [place] [address] [place] [phone] Noelle Reyes P.A.-C., P.A. [address] [place] [phone] 12/24/2023 2:15 PM SENIOR PRINCIPAL ARCHITECT Office Visit Department of Palliative Care in [place], [place] [address] [place] [phone] Aylin Smith, CINDY, C.N.P., M.S.N. [address] [place] [phone] 12/24/2023 4:10 PM SENIOR PRINCIPAL ARCHITECT Office Visit Department of Oncology in [place], [place] [address] [place] [phone] Ned Alegria M.D. [address] [place] [phone] Scheduled Orders Name Type Priority Associated Diagnoses [...] pain? Symptom Management 9(11/20/2022 2:41 PM SENIOR PRINCIPAL ARCHITECT) Raisa Ferguson-Girma Bush, RCandidoN., O.C.N. Note: 05/24/2021: Pain algorithm completed. [facility] 05/24/2021: Followup 06/07 via portal per patient [...] documented as of this encounter Care Teams Mother Superior Relationship Specialty Start Date End Date Elsewhere, Pcp PCP - General Internal Medicine 10/14/22 documented as of this encounter
--- OUTSIDE RECORDS SUMMARY | 2023-12-18 17:59 | XMS_ITS | Encounter Summary ---
Author Name Unknown Organization [facility] Address [address] [place] [address] Care Team Providers Care Toilet Products Molder Name Role Phone Elsewhere, Pcp Primary Care Provider Unavailabl e Reason for Visit * Reason Comments Med Change Request Encounter Details Date Type Department Care Team (Late st Contact Info) Description 10/20/2023 Refill Department of Oncology in [place], [place] [address] [place] [phone] Kristi Dominique M.D. [address] [place] [phone] Med Change Request Social History [...] Recorded PHQ-2 Score 0 04/25/2019 [facility] of Occupat ional Health - Occupational [...] (e.g., MA, MS, Ana Lilia, MEd, COMMODITY LEAD, GORDO) 02/15/2022 Sex and Gender Information Value Date Recorded Sex Assigned at Male 04/23/2018 1:23 PM CDT Gender Identity Male 04/23/2018 1:23 PM CDT Sexual Orientation Straight 04/23/2018 1: 23 PM CDT documented as of this encounter Plan of Treatment Upcoming Encounters Date Type Department Care Team (Late st Contact Info) Description 12/23/2023 8:30 AM COLLECTION CARD CLERK Clinical Communication Virtual Review in [place], [place] [address] [place] [address] 12/24/2023 10:30 AM COLLECTION CARD CLERK Appointment Department of Radiology, [facility], in [place], [place] [address] [place] [address] BosNoelle jiagn P.A.-C., P.A. [address] [place] [phone] 12/24/2023 11:00 AM COLLECTION CARD CLERK Lab Department of Infusion Therapy in [place], [place] [address] [place] [phone] Noelle Reyes P.A.-C., P.A. [address] [place] [phone] 12/24/2023 2:15 PM COLLECTION CARD CLERK Office Visit Department of Palliative Care in [address] [phone] Aylin Smith APRN, C.NCandidoP., M.S.N. [address] [place] [phone] 12/24/2023 4:10 PM COLLECTION CARD CLERK Office Visit Department of Oncology in [place], [place] [address] [place] [phone] Ned Alegria M.D. [address] [place] [phone] documented as of this encounter Goals Goal Patient Goal Type Associated Problems Recent Progress Patient-Stated? Author Your pain? Symptom Management 9(11/20/2022 2:41 PM COLLECTION CARD CLERK) No Phyllis-Girma Bush, R.N., O.C.N. Note: 05/24/2021: Pain algorithm completed. [facility] 05/24/2021: Followup 06/07 [...] documented as of this encounter Care Teams Toilet Products Molder Relationship Specialty Start Date End Date Elsewhere, Pcp PCP - General Internal Medicine 10/14/22 documented as of this encounter
--- OUTSIDE RECORDS SUMMARY | 2023-12-18 17:59 | XMS_ITS | Encounter Summary ---
Author Name Unknown Organization [facility] Address [address] [place] [address] Care Team Providers Care Conference Concierge Name Role Phone Elsewhere, Pcp Primary Care Provider Unavailabl e Reason for Visit * Outpatient (Routine) - Closed Specialty Diagnoses / Procedures Referred By Contac t Referred To Contact Diagnoses Pain Chest Wall Pain Neuropathic Pain Post Thoracotomy Chronic Procedures FL Spine Intercostal Injection Right FL Thoracic Paravertebral Block Injection Right NE PARAVERTEB BLOCK THOR SNGL NE PARAVERTEB BLOCK THOR 2ND & ADD NE INJ ANES INTERCOSTAL NRV SNGL LVL NE INJ ANES INTERCOSTAL NRV EA ADDL LEVEL Yassine Parekh M.D. [address] [place] [address] [facility] Referral ID Status Reason Start Date Expiration Date Visits Re quested Visits Authorized [id number] Closed 09/04/2023 09/03/2024 1 1 Encounter Details Date Type Department Care Team (Latest Contact Info) Description 09/29/2023 12:26 PM NURSE OBGYN - 09/29/2023 11:59 PM [facility] Hospital Encounter Division of Pain Medicine in [place], [place] [address] [place] [phone] Yassine Parekh M.D. [address] [place] [phone] Pain Chest Wall; Pain Neuropathic; [...] Answer Date Recorded PHQ-2 Score 0 04/25/2019 [place] [place] [facility] - Occupational Stress [...] degree (e.g., MA, MS, Ana Lilia, MEd, CLIPPER [employer]OM[employer], GORDO) 02/15/2022 Sex and Gender Information Value Date Recorded Sex Assigned at Male 04/23/2018 1:23 PM CDT Gender Identity Male 04/23/2018 1:23 PM CDT Sexual Orientation Straight 04/23/2018 1: 23 PM CDT documented as of this encounter Last Filed Vital Signs Vital Sign Reading Time Taken Comments Blood Pressure 142/107 09/29/2023 1:51 PM NURSE OBGYN Pulse 110 09/29/2023 1:51 PM NURSE OBGYN Temperature 35 ??C (95 ??F) 09/29/2023 12:42 PM NURSE OBGYN Respiratory Rate - - Oxygen Saturation 99% 09/29/2023 1:51 PM NURSE OBGYN Inhaled Oxygen Concentration - - Weight - [...] g 3 09/26/2023 HYDROmorphone (DILAUDID) 4 mg tabletIndications:Trimmer Sorter alvino Pain/Nonacute Pain Take 1-1.5 tablets (4-6 [...] mg under the tongue. 0 09/26/2023 omega 1-qws-ebr-fish oil 1,000 mg (120 mg-180 mg) capsule [...] bedtime. 0 11/26/2023 methadone (DOLOPHINE) 5 mg tabletIndications:Trimmer Sorter alvino Pain/Nonacute Pain Take 0.5 tablets (2.5 [...] 0 Estimated blood loss: 0 Implants: 0 E OBGYN documented in this encounter Plan of Treatment Upcoming Encounters Date Type Department Care Team (Late st Contact Info) Description 12/23/2023 8:30 AM NURSE OBGYN Clinical Communication Virtual Review in [address] [address] 12/24/2023 10:30 AM NURSE OBGYN Appointment Department of Radiology, [facility], in [address] [address] Noelle Reyes, P.A.-C., P.A. [address] [place] [phone] 12/24/2023 11:00 AM NURSE OBGYN Lab Department of Infusion Therapy in [address] [address] Noelle Reyes, P.A.-C., P.A. [address] [place] [address] 12/24/2023 2:15 PM NURSE OBGYN Office Visit Department of Palliative Care in [address] [phone] Aylin Smith APRN, C.N.P., M.S.N. [address] [place] [phone] 12/24/2023 4:10 PM NURSE OBGYN Office Visit Department of Oncology in [address] [place] [address] Ned Alegria M.D. [address] [place] [address] documented as of this encounter Goals Goal Patient Goal Type Associated Problems Recent Progress Patient-Stated? Author Your pain? Symptom Management 9(11/20/2022 2:41 PM NURSE OBGYN) No Fee-Girma Bush R.N., O.C.N. Note: 05/24/2021: [...] that his need for medication may change. [facility] 06/07/2021: Pain rating over the past 7 [...] SPINE INTERCOSTAL INJECTION Routine 09/29/2023 1:50 PM NURSE OBGYN Pain Chest Wall Pain Neuropathic Pain Post Thoracotomy Chronic documented in this encounter Results * FL Spine Intercostal Injection Right (09/29/2023 1:50 PM NURSE OBGYN) Narrative Marlon Garcia M.D. - 09/29/2023 1:00 PM NURSE OBGYN Marlon Garcia M.D. ? 09/29/2023 ??6:26 PM [...] For 1 dose Given 09/29/2023 1:00 PM NURSE OBGYN 3 mL dexAMETHasone injection 10 mg (DECADRON) 10 mg, injection, One-Time Injection, Starting on Fri09/29/23 at 1300, For 1 dose Given 09/29/2023 1:00 PM NURSE OBGYN 10 mg lidocaine 20 mg/mL injection 3 mL (XYLOCAINE) 3 mL, injection, One-Time Injection, Starting on Fri09/29/23 at 1300, For 1 dose Given 09/29/2023 1:00 PM NURSE OBGYN 3 mL documented in this encounter Additional Health Concerns Assessment Noted Time PHQ-9 Depression Total Score: 7 05/26/20 18 10:22 PM CDT documented as of this encounter Care Teams Conference Concierge Relationship Specialty Start Date End Date Elsewhere, Pcp PCP - General Internal Medicine 10/14/22 documented as of this encounter
--- OUTSIDE RECORDS SUMMARY | 2023-12-18 17:59 | XMS_ITS | Encounter Summary ---
Author Name Unknown Organization [facility] Address [address] [place] [address] Care Team Providers Care Forger Helper Name Role Phone Elsewhere, Pcp Primary Care Provider Unavailabl e Reason for Referral * Outpatient (Routine) - Authorized Specialty Diagnoses / Procedures Referred By Contac t Referred To Contact Dermatology Diagnoses Dakota Noel M.D. 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 [address] [place] [address] [facility] Referral ID Status Reason Start Date Expiration Date V isits Requested Visits Authorized [id number] Closed Specialty Services Required 09/10/2023 09/09/2024 1 1 Encounter Details Date Type Department Care Team (Latest Contact Info) Description 10/28/2023 10:40 AM PAPER CONTROL CLERK Comprehensive Visit Department of Dermatology in [place], [place] [address] [place] [phone] Dakota Smith M.D. [address] [place] [address] Rash (Primary Dx); Malignant Neoplasm Of Rectum [...] 02/03/2023 How often do you attend formerly [facility] or religion services? Never 02/03/2023 Do you belong to any clubs o r organizations such as judaism groups, unions, fraternal or athletic groups, or [...] Date Recorded PHQ-2 Score 0 04/25/2019 [facility] of Occupat ional [facility] - Occupational Stress Questionnaire Answer Date Recorded [...] degree (e.g., MA, MS, Ana Lilia, MEd, BEE BREEDER, GORDO) 02/15/2022 Sex and Gender Information Value Date Recorded Sex Assigned at Male 04/23/2018 1:23 PM CDT Gender Identity Male 04/23/2018 1:23 PM CDT Sexual Orientation Straight 04/23/2018 1: 23 PM CDT documented as of this encounter Consult Notes * Dakota Smith M.D. - 10/28/2023 10:40 AM CST [facility] 16 Correspondence to: Dakota Smith M.D. [...] His oncologist who treats him locally in [place] saw him last week and switched him from doxycycline to minocycline, though he has not switched yet as he was not able to flower buncher or picker the prescription until yesterday. He does feel [...] Mr. Luis Tabares today. Dakota Smith M.D. R CONTROL CLERK documented in this encounter Plan of Treatment Upcoming Encounters Date Type Department Care Team (Late st Contact Info) Description 12/23/2023 8:30 AM PAPER CONTROL CLERK Clinical Communication Virtual Review in [address] [address] 12/24/2023 10:30 AM PAPER CONTROL CLERK Appointment Department of Radiology, [facility], in [address] [address] Noelle Reyes, P.A.-C., P.A. [address] [place] [phone] 12/24/2023 11:00 AM PAPER CONTROL CLERK Lab Department of Infusion Therapy in [address] [address] Noelle Reyes, P.A.-C., P.A. [address] [place] [address] 12/24/2023 2:15 PM PAPER CONTROL CLERK Office Visit Department of Palliative Care in [address] [phone] Aylin Smith, VEST FRONT PRESSER, C.N.P., M.S.N. [address] [place] [phone] 12/24/2023 4:10 PM PAPER CONTROL CLERK Office Visit Department of Oncology in [place], [place] [address] [place] [address] Ned Alegria M.D. [address] [place] [address] Scheduled Referrals Name Type Priority Associated Diagnoses Order Schedule Dermatology office visit (clinic) Outpatient Referral Routine Expected: 11/28/2023 (Approximate), Expires: 01/26/2025 documented as of this encounter Goals Goal Patient Goal Type Associated Problems Recent Progress Patient-Stated? Author Your pain? Symptom Management 9(11/20/2022 2:41 PM PAPER CONTROL CLERK) No Phyllis-Girma Bush, RCandidoN., O.C.N. Note: 05/24/2021: Pain algorithm completed. [facility] 05/24/2021: Followup 06/07 via portal per patient [...] documented as of this encounter Care Teams Forger Helper Relationship Specialty Start Date End Date Elsewhere, Pcp PCP - General Internal Medicine 10/14/22 documented as of this encounter
--- OUTSIDE RECORDS SUMMARY | 2023-12-18 17:59 | XMS_ITS | Encounter Summary ---
Author Name Unknown Organization [facility] Address [address] [place] [address] Care Team Providers Care Scanning Clerk Name Role Phone Elsewhere, Pcp Primary Care Provider Unavailabl e Reason for Referral * Outpatient (Routine) - Authorized Specialty Diagnoses / Procedures Referred By Contac t Referred To Contact Pain Medicine Diagnoses Other Chest Pain Sean Shen D.O. [address] [place] [phone] [facility] Referral ID Status Reason Start Date Expiration Date V isits Requested Visits Authorized [id number] Authorized 09/30/2023 09/29/2024 1 1 Scheduling Instructions Can be video if not able to schedule at the same time ECT ON DELIVERY CLERK * Specialty Diagnoses / Procedures Referred By Contac t Referred To Contact Marlon Garcia M.D. [address] [place] [address] [facility] Referral ID Status Reason Start Date Expiration Date Visits Re quested Visits Authorized Scheduling Instructions With Miladys, same day as consult if possible. ECT ON DELIVERY CLERK * Outpatient (Routine) - Authorized Specialty Diagnoses / Procedures Referred By Contac t Referred To Contact Pain Medicine Diagnoses Other Chest Pain Sean Shen D.O. [address] [place] [address] Marlon Garcia M.D. [address] [place] [address] Referral ID Status Reason Start Date Expiration Date V isits Requested Visits Authorized [id number] Authorized 09/30/2023 09/29/2026 [address] Garcia on a day he is supervising, he already started the conversation with this pt about PNS. ECT ON DELIVERY CLERK Reason for Visit * Reason Onset Date Comments Nerve block response 09/30/2023 Encounter Details Date Type Department Care Team (Latest Contact Info) Description 09/30/2023 Clinical Communication Division of Pain Medicine in [place], [place] [address] [place] [phone] Marlon Garcia M.D. [address] [place] [phone] Nerve block response Social History Tobacco Use [...] often do you attend chur ch or baptist services? Never 02/03/2023 Do you [...] Answer Date Recorded PHQ-2 Score 0 04/25/2019 [facility] of Occupat ional Health - Occupational Stress [...] degree (e.g., MA, MS, Ana Lilia, MEd, WRAP TURNER, GORDO) 02/15/2022 Sex and Gender Information Value Date Recorded Sex Assigned at Male 04/23/2018 1:23 PM CDT Gender Identity Male 04/23/2018 1:23 PM CDT Sexual Orientation Straight 04/23/2018 1: 23 PM CDT documented as of this encounter Miscellaneous Notes * Telephone Encounter - Miladys Ortega R.N. - 09/30/2023 2:48 PM COLLECT ON DELIVERY CLERK SUBJECTIVE CHIEF COMPLAINT / REASON FOR CALL [...] nursing clinical judgement and provider Dr. Garcia ECT ON DELIVERY CLERK documented in this encounter Plan of Treatment Upcoming Encounters Date Type Department Care Team (Late st Contact Info) Description 12/23/2023 8:30 AM COLLECT ON DELIVERY CLERK Clinical Communication Virtual Review in [place], [place] 200 [place] [address] 12/24/2023 10:30 AM COLLECT ON DELIVERY CLERK Appointment Department of Radiology, [facility], in [address] [address] Noelle Reyes P.A.-C., P.A. [address] [place] [address] 12/24/2023 11:00 AM COLLECT ON DELIVERY CLERK Lab Department of Infusion Therapy in [address] [address] Noelle Reyes P.A.EmileC., P.A. [address] [place] [address] 12/24/2023 2:15 PM COLLECT ON DELIVERY CLERK Office Visit Department of Palliative Care in [address] [phone] Aylin Smith APRN, C.N.P., M.S.N. [address] [place] [phone] 12/24/2023 4:10 PM COLLECT ON DELIVERY CLERK Office Visit Department of Oncology in [place], [place] [address] [place] [phone] Ned Alegria M.D. [address] [place] [phone] Scheduled Referrals Name Type Priority Associated Diagnoses [...] Your pain? Symptom Management 9(11/20/2022 2:41 PM COLLECT ON DELIVERY CLERK) No Fee-Girma Bush, RCandidoN., O.C.N. Note: 05/24/2021: [...] documented as of this encounter Care Teams Scanning Clerk Relationship Specialty Start Date End Date Elsewhere, Pcp PCP - General Internal Medicine 10/14/22 documented as of this encounter
--- OUTSIDE RECORDS SUMMARY | 2023-12-18 17:59 | XMS_ITS | Encounter Summary ---
Author Name Unknown Organization [facility] Address [address] [place] [address] Care Team Providers Care Check Grader Name Role Phone Elsewhere, Pcp Primary Care Provider Unavailabl e Reason for Visit * Outpatient (Routine) - Closed Specialty Diagnoses / Procedures Referred By Halima t Referred To Contact Social Work Diagnoses Counseling Life Circumstance Problem GeovannaKari Neal APRN C.N.P., D.N.P. [address] [place] [phone] [facility] Referral ID Status Reason Start Date Expiration Date Visits Re quested Visits Authorized [id number] Closed 10/20/2023 10/19/2024 1 1 Encounter Details Date Type Department Care Team (Late st Contact Info) Description 10/22/2023 3:00 PM MASTER HEARTH TECHNICIAN Telemedicine Department of Palliative Care in [place], [place] [address] [place] [phone] Kari Austin APRN, C.N.P., D.N.P. [address] [place] [phone] Annie Mak L.I.C.S.W., M.S.W. [address] [place] [phone] Palliative Care (Primary Dx); Counseling Life Circumstance [...] Date Recorded PHQ-2 Score 0 04/25/2019 [facility] of Occupat ional Health - Occupational Stress [...] degree (e.g., MA, MS, Ana Lilia, Berna, BUSINESS ANALYTICS MANAGER, GORDO) 02/15/2022 Sex and Gender Information Value Date Recorded Sex Assigned at Male 04/23/2018 1:23 PM CDT Gender Identity Male 04/23/2018 1:23 PM CDT Sexual Orientation Straight 04/23/2018 1: 23 PM CDT documented as of this encounter Progress Notes * Annie Mak L.I.C.S.W., M.S.W. - 10/22/2023 3:00 PM CST SUBJECTIVE Chief Complaint: fuel system maintenance worker consulted to provide supportive counseling around grief, loss and adjustment to illness, education and navigation of resources. Diagnosis: #1 Counseling Life Circumstance Problem #2 Palliative Care Service type(s): family Present for the visit: patient and Dolores Patient and Dolores share they have been together for ten years. He shares he is originally from [place], his family is still there. Dolores is from the [facility] and her family remains there. They have [...] help talk to kids about cancer; Thor BlueYield, Jerman Wishabigabe, and the book How to Help Children [...] parent, Annabella's and Jerman Ortiz, and Thor [employer]Yield. Will send them additional resources as well. [...] counseling throughout cancer care journey here at [facility]. Patient was accepting of offer. Encouraged patient [...] Excellent based on continued engagement with this engineering writer during visit. Cooperation: Cooperative Mood: Calm Affect: [...] male diagnosed with rectal cancer, lives in [facility] with his and son. Patient and Dolores [...] audio technology by Jameson Gant M.S.WCandido in [facility] to the patient in the patient's home. Type of service: Supportive counseling and Resource referrals and connection Start time: 1500 End time: 1545 LUCAS Gant 10/22/2023 ER HEARTH TECHNICIAN documented in this encounter Plan of Treatment Upcoming Encounters Date Type Department Care Team (Late st Contact Info) Description 12/23/2023 8:30 AM MASTER HEARTH TECHNICIAN Clinical Communication Virtual Review in [place], [place] 200 [place] [address] 12/24/2023 10:30 AM MASTER HEARTH TECHNICIAN Appointment Department of Radiology, [facility], in [place], [place] [address] [place] [phone] Noelle Reyes P.A.-C., P.A. [address] [place] [phone] 12/24/2023 11:00 AM MASTER HEARTH TECHNICIAN Lab Department of Infusion Therapy in [address] [phone] Noelle Reyes, P.A.-C., P.A. [address] [place] [phone] 12/24/2023 2:15 PM MASTER HEARTH TECHNICIAN Office Visit Department of Palliative Care in [address] [phone] Aylin Smith, CINDY, C.N.P., M.S.N. [address] [place] [address] 12/24/2023 4:10 PM MASTER HEARTH TECHNICIAN Office Visit Department of Oncology in [place], [place] [address] [place] [address] Ned Alegria M.D. [address] [place] [address] documented as of this encounter Goals Goal Patient Goal Type Associated Problems Recent Progress Patient-Stated? Author Your pain? Symptom Management 9(11/20/2022 2:41 PM MASTER HEARTH TECHNICIAN) No Phyllis-Girma Bush R.N., O.C.N. Note: 05/24/2021: [...] documented as of this encounter Care Teams Check Grader Relationship Specialty Start Date End Date Elsewhere, Pcp PCP - General Internal Medicine 10/14/22 documented as of this encounter
--- OUTSIDE RECORDS SUMMARY | 2023-12-18 17:59 | XMS_ITS | Encounter Summary ---
Author Name Unknown Organization [facility] Address [address] [place] [address] Care Team Providers Care Device Test Engineer Name Role Phone Elsewhere, Pcp Primary Care Provider Unavailabl e Reason for Referral * Outpatient (Routine) - Closed Specialty Diagnoses / Procedures Referred By Halima owen Referred To Contact Palliative Medicine Diagnoses . Kari Austin APRN, C.N.PCandido, D.N.P. [address] [place] [address] [facility] Referral ID Status Reason Start Date Expiration Date Visits Re quested Visits Authorized [id number] Closed 10/20/2023 10/19/2026 1 1 Scheduling Instructions Louisa Pierce. Please coordinate with in person visits. EN PRESS OPERATOR APPRENTICE * Outpatient (Routine) - Closed Specialty Diagnoses / Procedures Referred By Halima owen Referred To Contact Social Work Diagnoses Counseling Life Circumstance Problem Kari Austin APRN C.N.PCandido, D.N.P. [address] [place] [address] [facility] Referral ID Status Reason Start Date Expiration Date Visits Re quested Visits Authorized [id number] Closed 10/20/2023 10/19/2024 1 1 Scheduling Instructions Video EN PRESS OPERATOR APPRENTICE Reason for Visit * Outpatient (Routine) - Closed Specialty Diagnoses / Procedures Referred By Contlucas t Referred To Contact Palliative Medicine Diagnoses na Louisa Padilla P.A.-C. [address] [place] [phone] [facility] Referral ID Status Reason Start Date Expiration Date Visits Re quested Visits Authorized [id number] Closed 09/26/2023 09/25/2026 1 1 Encounter Details Date Type Department Care Team (Late st Contact Info) Description 10/20/2023 8:30 AM PLATEN PRESS OPERATOR APPRENTICE Telemedicine Department of Palliative Care in [place], [place] [address] [place] [phone] Louisa Padilla P.A.-C. [address] [place] [phone] Kari Austin APRN, C.N.P., D.N.P. [address] [place] [phone] Pain Cancer Associated (Primary Dx); Malignant Neoplasm [...] degree (e.g., MA, MS, Ana Lilia, MEd, BUSINESS EXCELLENCE LEADER, GORDO) 02/15/2022 Sex and Gender Information Value [...] controlled substance prescribing: Cancer related pain [place] STEWARD/STEWARDESS THIRD CLASS Review: We have reviewed the patient's record in the [place] prescription monitoring program 10/20/2023. Opioid Toxicity Review: [...] 09/26/2023 in Department of Palliative Care in [place], [place] ORT Total Score (max 26) 1 CONSTIPATION: Continue bowel regimen Goal is for soft, moderately sized bowel movement every 1-2 days NAUSEA / VOMITING: Olanzapine as advised by oncology with chemo regimen Zofran and compazine as needed Repeat EKG next week COPING: Referral to palliative care social media sr strategy manager to discuss communicating cancer diagnosis with his son / resources Follow up visit: 6 weeks in person, sooner if needs arise. I personally spent a total of 30 minutes. Consult conducted via real-time audio/video technology by Kari Austin APRN, C.NNaima, BeckyN.PCandido in [facility] to the patient in [place] , privacy ensured Kari Austin APRN, C.N.P., Iris.N.P. EN PRESS OPERATOR APPRENTICE documented in this encounter Plan of Treatment Upcoming Encounters Date Type Department Care Team (Late st Contact Info) Description 12/23/2023 8:30 AM PLATEN PRESS OPERATOR APPRENTICE Clinical Communication Virtual Review in [place], [place] 200 [place] [address] 12/24/2023 10:30 AM PLATEN PRESS OPERATOR APPRENTICE Appointment Department of Radiology, [facility], in [place], [place] [address] [place] [phone] Noelle Reyes, P.A.-C., P.A. [address] [place] [phone] 12/24/2023 11:00 AM PLATEN PRESS OPERATOR APPRENTICE Lab Department of Infusion Therapy in [address] [phone] Noelle Reyes, P.A.-C., P.A. [address] [place] [address] 12/24/2023 2:15 PM PLATEN PRESS OPERATOR APPRENTICE Office Visit Department of Palliative Care in [address] [phone] Aylin Smith APRN, Tristan.N.P., M.S.N. [address] [place] [phone] 12/24/2023 4:10 PM PLATEN PRESS OPERATOR APPRENTICE Office Visit Department of Oncology in [place], [place] [address] [place] [address] Ned Alegria M.D. [address] [place] [phone] Scheduled Referrals Name Type Priority Associated Diagnoses Orde r Schedule Social Work - General consult (clinic) Outpatient Referral Routine Counseling Life Circumstance Problem Expected: 10/20/2023 (Approximate), Expires: 01/18/2025 Palliative Care office visit (clinic) Outpatient Referral Routine Expected: 12/01/2023, Expires: 01/18/2025 documented as of this encounter Goals Goal Patient Goal Type Associated Problems Recent Progress Patient-Stated? Author Your pain? Symptom Management 9(11/20/2022 2:41 PM PLATEN PRESS OPERATOR APPRENTICE) No Fee-Girma Bush, RCandidoN., O.C.N. Note: 05/24/2021: Pain algorithm completed. [facility] [place] 05/24/2021: Followup 06/07 via portal per [...] documented as of this encounter Care Teams Device Test Engineer Relationship Specialty Start Date End Date Elsewhere, Pcp PCP - General Internal Medicine 10/14/22 documented as of this encounter
--- OUTSIDE RECORDS SUMMARY | 2023-12-18 17:59 | XMS_ITS | Encounter Summary ---
Author Name Unknown Organization [facility] Address [address] [place] [address] Care Team Providers Care Senior Counsel Name Role Phone Elsewhere, Pcp Primary Care Provider Unavailabl e Encounter Details Date Type Department Care Team (Late st Contact Info) Description 09/26/2023 Orders Only Department of Oncology in [place], [place] [address] [place] [phone] Kristi Dominique M.D. [address] [place] [address] Social History Tobacco Use Types [...] How often do you attend chur or scientology services? Never 02/03/2023 Do you belong to any clubs o r organizations such as oriental orthodox groups, unions, fraternal or athletic groups, [...] Answer Date Recorded PHQ-2 Score 0 04/25/2019 [facility] alexander campusal [facility] - Occupational [...] have received? Master's degree (e.g., MA, MS, nAa Lilia, MEd, WOOL CLEANER, GORDO) 02/15/2022 Sex and Gender Information Value Date Recorded Sex Assigned at Male 04/23/2018 1:23 PM CDT Gender Identity Male 04/23/2018 1:23 PM CDT Sexual Orientation Straight 04/23/2018 1: 23 PM CDT documented as of this encounter Plan of Treatment Upcoming Encounters Date Type Department Care Team (Late st Contact Info) Description 12/23/2023 8:30 AM HANDKERCHIEF CUTTER Clinical Communication Virtual Review in [place], [place] [address] [place] [address] 12/24/2023 10:30 AM HANDKERCHIEF CUTTER Appointment Department of Radiology, [facility], in [place], [place] [address] [place] [address] Noelle Reyes PKaycee.Winston., P.A. [address] [place] [phone] 12/24/2023 11:00 AM HANDKERCHIEF CUTTER Lab Department of Infusion Therapy in [place], [place] [address] [place] [phone] Noelle Reyes P.A.-C., P.A. [address] [place] [phone] 12/24/2023 2:15 PM HANDKERCHIEF CUTTER Office Visit Department of Palliative Care in [place], [place] [address] [place] [phone] Aylin Smith, CINDY, C.N.P., M.S.N. [address] [place] [phone] 12/24/2023 4:10 PM HANDKERCHIEF CUTTER Office Visit Department of Oncology in [place], [place] [address] [place] [phone] Ned Alegria M.D. [address] [place] [phone] documented as of this encounter Goals Goal Patient Goal Type Associated Problems Recent Progress Patient-Stated? Author Your pain? Symptom Management 9(11/20/2022 2:41 PM HANDKERCHIEF CUTTER) No Phyllis-Girma Buhs, RCandidoN., O.C.N. Note: 05/24/2021: Pain algorithm completed. VALIR [...] documented as of this encounter Care Teams Senior Counsel Relationship Specialty Start Date End Date Elsewhere, Pcp PCP - General Internal Medicine 10/14/22 documented as of this encounter
--- OUTSIDE RECORDS SUMMARY | 2023-12-18 18:00 | XMS_ITS | Encounter Summary ---
Author Name Unknown Organization [facility] Address [address] [place] [address] Care Team Providers Care Press Writer Name Role Phone Elsewhere, Pcp Primary Care Provider Unavailabl e Encounter Details Date Type Department Care Team (Late st Contact Info) Description 09/09/2023 11:30 AM CDT Lab Department of Infusion Therapy in [place], [place] [address] [place] [address] Giorgio Fishman M.D. [address] [place] [address] Secondary Malignant Neoplasm Lymph Node Multiple Site [...] often do you attend chur ch or lutheran services? Never 02/03/2023 Do you belong to [...] [facility] of Occupat ional [facility] - Occupational Stress Questionnaire Answer Date [...] degree (e.g., MA, MS, Ana Lilia, MEd, SIGNAL INTELLIGENCE/ELECTRONIC WARFARE, GORDO) 02/15/2022 Sex and Gender Information Value Date Recorded Sex Assigned at Male 04/23/2018 1:23 PM CDT Gender Identity Male 04/23/2018 1:23 PM CDT Sexual Orientation Straight 04/23/2018 1: 23 PM CDT documented as of this encounter Plan of Treatment Upcoming Encounters Date Type Department Care Team (Late st Contact Info) Description 12/23/2023 8:30 AM CROCHETER Clinical Communication Virtual Review in [place], [place] [address] [place] [address] 12/24/2023 10:30 AM CROCHETER Appointment Department of Radiology, [facility], in [place], [place] [address] [place] [phone] Noelle Reyes P.A.-C., P.A. [address] [place] [phone] 12/24/2023 11:00 AM CROCHETER Lab Department of Infusion Therapy in [place], [place] [address] [place] [phone] Noelle Reyes P.A.-C., P.A. [address] [place] [phone] 12/24/2023 2:15 PM CROCHETER Office Visit Department of Palliative Care in [address] [phone] Aylin Smith, CINDY, C.N.P., M.S.N. [address] [place] [phone] 12/24/2023 4:10 PM CROCHETER Office Visit Department of Oncology in [address] [phone] Ned Alegria M.D. [address] [place] [phone] documented as of this encounter Goals Goal Patient Goal Type Associated Problems Recent Progress Patient-Stated? Author Your pain? Symptom Management 9(11/20/2022 2:41 PM CROCHETER) No Fee-Girma Bush, R.N., O.C.N. Note: 05/24/2021: [...] CDT Giorgio Fishman M.D. LAB BLOOD ADD-ON [facility] 200 [place], [place] [address] DTL [facility] 200 [place] [address] * (ABNORMAL) CBC with Differential, Blood (09/09/2023 [...] Fishman M.D. LAB BLOOD ADD-ON [facility] [address] [place] [address], [place] DTL [facility] [address] [place] [address] [facility] [address] [place] [address] documented in this encounter Visit Diagnoses Diagnosis [...] documented as of this encounter Care Teams Press Writer Relationship Specialty Start Date End Date Elsewhere, Pcp PCP - General Internal Medicine 10/14/22 documented as of this encounter
--- OUTSIDE RECORDS SUMMARY | 2023-12-18 18:00 | XMS_ITS | Encounter Summary ---
Author Name Unknown Organization [facility] Address [address] [place] [address] Care Team Providers Care Transformer Molder Name Role Phone Elsewhere, Pcp Primary Care Provider Unavailabl e Encounter Details Date Type Department Care Team (Late st Contact Info) Description 09/06/2023 Orders Only Department of Oncology in [place], [place] [address] [place] [phone] Manny Farfan M.D. [address] [place] [address] Social History Tobacco Use Types Packs/Day Years [...] Answer Date Recorded PHQ-2 Score 0 04/25/2019 [facility] - Occupational [...] degree (e.g., MA, MS, Ana Lilia, MEd, HEEL COVERER, GORDO) 02/15/2022 Sex and Gender Information Value Date Recorded Sex Assigned at Male 04/23/2018 1:23 PM CDT Gender Identity Male 04/23/2018 1:23 PM CDT Sexual Orientation Straight 04/23/2018 1: 23 PM CDT documented as of this encounter Plan of Treatment Upcoming Encounters Date Type Department Care Team (Late st Contact Info) Description 12/23/2023 8:30 AM FRIT MIXER Clinical Communication Virtual Review in [place], [place] [address] [place] [address] 12/24/2023 10:30 AM FRIT MIXER Appointment Department of Radiology, [facility], in [place], [place] [address] [place] [address] Noelle Reyes, P.A.Winston., P.A. [address] [place] [phone] 12/24/2023 11:00 AM FRIT MIXER Lab Department of Infusion Therapy in [place], [place] [address] [place] [phone] Noelle Reyes P.A.-C., P.A. [address] [place] [phone] 12/24/2023 2:15 PM FRIT MIXER Office Visit Department of Palliative Care in [place], [place] [address] [place] [phone] Aylin Smith APRN, C.N.P., M.S.N. [address] [place] [phone] 12/24/2023 4:10 PM FRIT MIXER Office Visit Department of Oncology in [place], [place] [address] [place] [phone] Ned Alegria M.D. [address] [place] [phone] documented as of this encounter Goals Goal Patient Goal Type Associated Problems Recent Progress Patient-Stated? Author Your pain? Symptom Management 9(11/20/2022 2:41 PM FRIT MIXER) No Phyllis-Girma Bush, RCandidoN., O.C.N. Note: 05/24/2021: [...] documented as of this encounter Care Teams Transformer Molder Relationship Specialty Start Date End Date Elsewhere, Pcp PCP - General Internal Medicine 10/14/22 documented as of this encounter
--- OUTSIDE RECORDS SUMMARY | 2023-12-18 18:00 | XMS_ITS | Encounter Summary ---
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 [address] [place] [address] [facility] Referral ID Status Reason Start Date Expiration Date Visits Re quested Visits Authorized [id number] Closed 09/10/2023 09/09/2024 1 1 Reason for Visit * Outpatient (Routine) - Closed Specialty Diagnoses / Procedures Referred By Halima owen Referred To Contact Oncology Giorgio Guzman M.D. [address] [place] [address] [facility] Referral ID Status Reason Start Date Expiration Date Visits Re quested Visits Authorized [id number] Closed 09/08/2023 09/07/2026 1 1 Encounter Details Date Type Department Care Team (Late st Contact Info) Description 09/09/2023 2:40 PM CDT Office Visit Department of Oncology in [place], [place] [address] [place] [address] Giorgio Guzman M.D. [address] [place] [address] Malignant Neoplasm Of Rectum (HCC) [...] often do you attend chur ch or hoahaoism services? Never 02/03/2023 Do you belong to [...] Score 0 04/25/2019 [facility] [place] of Occupat ional Health - Occupational Stress [...] (e.g., MA, MS, Ana Lilia, MEd, SENIOR LEAD DEVELOPER, GORDO) 02/15/2022 Sex and Gender Information [...] PHYSICIAN ELSEWHERE, PCP LOCAL ONCOLOGIST No care warehouse team leader to display PRIMARY [place] ONCOLOGIST Giorgio Guzman M.D. CHIEF COMPLAINT / [...] was positive for invasive adenocarcinoma. Came to [place] and seen by Gastroenterology. Underwent staging MRI [...] Right posterolateral thoracotomy and mediastinal lymphadenectomy. SURGEON(S) WEBSITE PROJECT MANAGER: Jazmine Bowden M.D. ASSISTING RESIDENT: Bandar [...] for metastasis 06/11/2021 - 06/13/2021 Radiation Therapy 9922-8722 cGy in 3 fractions to right posterior [...] with the counselor for now. Otherwise social professionals may be able to help. Plan: 1. [...] st Contact Info) Description 12/23/2023 8:30 AM SOFT SUGAR SUPERVISOR Clinical Communication Virtual Review in [place], [place] 200 [place] [address] 12/24/2023 10:30 AM SOFT SUGAR SUPERVISOR Appointment Department of Radiology, [facility], in [address] [phone] Noelle Reyes P.A.-C., P.A. [address] [place] [phone] 12/24/2023 11:00 AM SOFT SUGAR SUPERVISOR Lab Department of Infusion Therapy in [address] [phone] Noelle Reyes P.Shantal.-C., P.A. [address] [place] [phone] 12/24/2023 2:15 PM SOFT SUGAR SUPERVISOR Office Visit Department of Palliative Care in [place], [place] [address] [place] [address] Aylin Smith APRN, C.N.P., M.S.N. [address] [place] [phone] 12/24/2023 4:10 PM SOFT SUGAR SUPERVISOR Office Visit Department of Oncology in [place], [place] [address] [place] [address] Ned Alegria M.D. [address] [place] [phone] Scheduled Referrals Name Type Priority Associated Diagnoses [...] Your pain? Symptom Management 9(11/20/2022 2:41 PM SOFT SUGAR SUPERVISOR) No Fee-Girma Bush, R.N., O.C.N. Note: 05/24/2021: Pain algorithm completed. [place] [...] documented as of this encounter Care Teams Bakery Manager Relationship Specialty Start Date End Date Elsewhere, Pcp PCP - General Internal Medicine 10/14/22 documented as of this encounter
--- OUTSIDE RECORDS SUMMARY | 2023-12-18 18:00 | XMS_ITS | Encounter Summary ---
Author Name Unknown Organization [facility] Address [address] [place] [address] Care Team Providers Care Wafer Abrading Machine Tender Name Role Phone Elsewhere, Pcp Primary Care Provider Unavailabl e Reason for Referral * Outpatient (Routine) - Closed Specialty Diagnoses / Procedures Referred By Contac t Referred To Contact Diagnoses Abdominal Pain Procedures [place] Celiac Plexus/Splanchnic Block Injection HI INJ ANES AGENT CELIAC PLEX Sean Shen D.O. [address] [place] [phone] [facility] Referral ID Status Reason Start Date Expiration Date Visits Re quested Visits Authorized [id number] Closed 08/27/2023 08/26/2024 1 1 Reason for Visit * Outpatient (Routine) - Closed Specialty Diagnoses / Procedures Referred By Contac t Referred To Contact Diagnoses Abdominal Pain Procedures [place] Celiac Plexus/Splanchnic Block Injection HI INJ ANES AGENT CELIAC PLEX Sean Shen D.O. 200 [place] [address] [facility] Referral ID Status Reason Start Date Expiration Date Visits Re quested Visits Authorized [id number] Closed 08/27/2023 08/26/2024 1 1 Encounter Details Date Type Department Care Team (Latest Contact Info) Description 09/03/2023 11:51 AM CDT - 09/03/2023 11:59 PM CDT Hospital Encounter Division of Pain Medicine in [place], [place] [address] [place] [phone] Sean Shen D.O. [address] [place] [address] Abdominal Pain Discharge Disposition: Home or Self [...] How often do you attend chur or worship services? Never 02/03/2023 Do you [...] 0 04/25/2019 [facility] of Occupat ional [facility] - Occupational Stress Questionnaire Answer Date [...] place to sleep or slept in a halfway (including now)? No 02/03/2023 Nutrition Answer Date [...] degree (e.g., MA, MS, Ana Lilia, MEd, BRICK CHIMNEY BUILDER, GORDO) 02/15/2022 Sex and Gender Information Value [...] chest pain. 25 tablet 12 05/28/2018 omega 9-ara-ohh-fish oil 1,000 mg (120 mg-180 mg) capsule [...] st Contact Info) Description 12/23/2023 8:30 AM SPRAY MACHINE OPERATOR Clinical Communication Virtual Review in [place], [place] 200 [place] [address] 12/24/2023 10:30 AM SPRAY MACHINE OPERATOR Appointment Department of Radiology, [facility], in [place], [place] [address] [place] [phone] Noelle Reyes P.A.-C., P.A. [address] [place] [phone] 12/24/2023 11:00 AM SPRAY MACHINE OPERATOR Lab Department of Infusion Therapy in [place], [place] [address] [place] [phone] Noelle Reyes P.A.-C., P.A. [address] [place] [phone] 12/24/2023 2:15 PM SPRAY MACHINE OPERATOR Office Visit Department of Palliative Care in [place], [place] [address] [place] [phone] Aylin Smith APRN, C.N.P., M.S.N. [address] [place] [phone] 12/24/2023 4:10 PM SPRAY MACHINE OPERATOR Office Visit Department of Oncology in [place], [place] [address] [place] [phone] Ned Alegria M.D. [address] [place] [phone] documented as of this encounter Goals Goal Patient Goal Type Associated Problems Recent Progress Patient-Stated? Author Your pain? Symptom Management 9(11/20/2022 2:41 PM SPRAY MACHINE OPERATOR) No Phyllis-Girma Bush, R.N., O.C.N. Note: 05/24/2021: Pain algorithm completed. [facility] 05/24/2021: Followup 06/07 via portal per patient [...] documented as of this encounter Care Teams Wafer Abrading Machine Tender Relationship Specialty Start Date End Date Elsewhere, Pcp PCP - General Internal Medicine 10/14/22 documented as of this encounter
--- OUTSIDE RECORDS SUMMARY | 2023-12-18 18:00 | XMS_ITS | Encounter Summary ---
Author Name Unknown Organization [facility] Address [address] [place] [address] Care Team Providers Care Internal Medicine Nurse Practitioner Name Role Phone Elsewhere, Pcp Primary Care Provider Unavailabl e Encounter Details Date Type Department Care Team (Late st Contact Info) Description 09/25/2023 Orders Only Department of Oncology in [place], [place] [address] [place] [address] Kristi Dominique M.D. [address] [place] [phone] Social History Tobacco Use Types Packs/Day Years [...] Answer Date Recorded PHQ-2 Score 0 04/25/2019 [facility] of Occupat ional Health - Occupational [...] degree (e.g., MA, MS, Ana Lilia, MEd, SHOT LIGHTER, GOROD) 02/15/2022 Sex and Gender Information Value Date Recorded Sex Assigned at Male 04/23/2018 1:23 PM CDT Gender Identity Male 04/23/2018 1:23 PM CDT Sexual Orientation Straight 04/23/2018 1: 23 PM CDT documented as of this encounter Plan of Treatment Upcoming Encounters Date Type Department Care Team (Late st Contact Info) Description 12/23/2023 8:30 AM ACTIVITIES ATTENDANT Clinical Communication Virtual Review in [place], [place] [address] [place] [address] 12/24/2023 10:30 AM ACTIVITIES ATTENDANT Appointment Department of Radiology, [facility], in [place], [place] [address] [place] [address] Noelle Reyes, P.A.Winston., P.A. [address] [place] [phone] 12/24/2023 11:00 AM ACTIVITIES ATTENDANT Lab Department of Infusion Therapy in [place], [place] [address] [place] [phone] Noelle Reyes P.A.-C., P.A. [address] [place] [phone] 12/24/2023 2:15 PM ACTIVITIES ATTENDANT Office Visit Department of Palliative Care in [place], [place] [address] [place] [phone] Aylin Smith APRN, C.N.P., M.S.N. [address] [place] [phone] 12/24/2023 4:10 PM ACTIVITIES ATTENDANT Office Visit Department of Oncology in [place], [place] [address] [place] [phone] Ned Alegria M.D. [address] [place] [phone] documented as of this encounter Goals Goal Patient Goal Type Associated Problems Recent Progress Patient-Stated? Author Your pain? Symptom Management 9(11/20/2022 2:41 PM ACTIVITIES ATTENDANT) No Phyllis-Girma Bush, RCandidoN., O.C.N. Note: 05/24/2021: Pain algorithm completed. [facility] 05/24/2021: Followup 06/07 via portal per patient [...] documented as of this encounter Care Teams Internal Medicine Nurse Practitioner Relationship Specialty Start Date End Date Elsewhere, Pcp PCP - General Internal Medicine 10/14/22 documented as of this encounter
--- OUTSIDE RECORDS SUMMARY | 2023-12-18 18:00 | XMS_ITS | Encounter Summary ---
Author Name Unknown Organization [facility] Address [address] [place] [address] Care Team Providers Care Overage Shortage And Damage Clerk Name Role Phone Elsewhere, Pcp Primary Care Provider Unavailabl e Reason for Visit * Reason Comments Med Change Request Med refill : Amlodip ine besylate Encounter Details Date Type Department Care Team (Late st Contact Info) Description 09/18/2023 Refill Department of Oncology in [place], [place] [address] [place] [address] Giorgio Fishman M.D. [address] [place] [phone] Med Change Request (Med refill : Amlodipine [...] any clubs o r organizations such as amish groups, unions, fraternal or athletic groups, or [...] [facility] of Occupat ional Health - Occupational Stress [...] degree (e.g., MA, MS, Ana Lilia, MEd, EDITORIAL WRITER, GOROD) 02/15/2022 Sex and Gender Information Value [...] Fishman M.D. Last refill: 08/25/2023 Rx #: [id number] Pharmacy comment: REQUEST FOR 90 DAYS PRESCRIPTION. To be filled at: [facility] [id number] [place] [address] documented in this encounter Plan of Treatment Upcoming Encounters Date Type Department Care Team (Late st Contact Info) Description 12/23/2023 8:30 AM HEAD BUYER TOBACCO Clinical Communication Virtual Review in [address] [address] 12/24/2023 10:30 AM HEAD BUYER TOBACCO Appointment Department of Radiology, [facility] in [address] [phone] Noelle Reyes P.A.-C., P.A. [address] [place] [phone] 12/24/2023 11:00 AM HEAD BUYER TOBACCO Lab Department of Infusion Therapy in [address] [phone] Noelle Reyes P.A.-C., P.A. [address] [place] [phone] 12/24/2023 2:15 PM HEAD BUYER TOBACCO Office Visit Department of Palliative Care in [address] [phone] Aylin Smith APRN, C.N.P., M.S.N. [address] [place] [phone] 12/24/2023 4:10 PM HEAD BUYER TOBACCO Office Visit Department of Oncology in [address] [phone] Ned Alegria M.D. [address] [place] [address] documented as of this encounter Goals Goal Patient Goal Type Associated Problems Recent Progress Patient-Stated? Author Your pain? Symptom Management 9(11/20/2022 2:41 PM HEAD BUYER TOBACCO) No Fee-Girma Bush R.N., O.C.N. Note: 05/24/2021: [...] documented as of this encounter Care Teams Overage Shortage And Damage Clerk Relationship Specialty Start Date End Date Elsewhere, Pcp PCP - General Internal Medicine 10/14/22 documented as of this encounter
--- OUTSIDE RECORDS SUMMARY | 2023-12-18 18:00 | XMS_ITS | Encounter Summary ---
Author Name Unknown Organization [facility] Address [address] [place] [address] Care Team Providers Care Human Resources Psychologist Name Role Phone Elsewhere, Pcp Primary Care Provider Unavailabl e Encounter Details Date Type Department Care Team (Late st Contact Info) Description 09/04/2023 Orders Only Division of Pain Medicine in [place], [place] [address] [place] [address] Yassine Parekh M.D. [address] [place] [address] Pain Chest Wall (Primary Dx); Pain Neuropathic; [...] Answer Date Recorded PHQ-2 Score 0 04/25/2019 [facility] of Occupat ional Health - Occupational Stress [...] degree (e.g., MA, MS, Ana Lilia, MEd, MEDICAL CLAIMS PROCESSOR, GORDO) 02/15/2022 Sex and Gender Information Value Date Recorded Sex Assigned at Male 04/23/2018 1:23 PM CDT Gender Identity Male 04/23/2018 1:23 PM CDT Sexual Orientation Straight 04/23/2018 1: 23 PM CDT documented as of this encounter Plan of Treatment Upcoming Encounters Date Type Department Care Team (Late st Contact Info) Description 12/23/2023 8:30 AM TOOL AND DIE MAKER Clinical Communication Virtual Review in [place], [place] [address] [place] [address] 12/24/2023 10:30 AM TOOL AND DIE MAKER Appointment Department of Radiology, [facility], in [place], [place] [address] [place] [address] Noelle Reyes P.A.-C., P.A. [address] [place] [phone] 12/24/2023 11:00 AM TOOL AND DIE MAKER Lab Department of Infusion Therapy in [place], [place] [address] [place] [phone] Noelle Reyes P.A.-C., P.A. [address] [place] [phone] 12/24/2023 2:15 PM TOOL AND DIE MAKER Office Visit Department of Palliative Care in [address] [phone] Aylin Smith APRN, C.NCandidoP., M.S.N. [address] [place] [phone] 12/24/2023 4:10 PM TOOL AND DIE MAKER Office Visit Department of Oncology in [place], [place] [address] [place] [phone] Ned Alegria M.D. [address] [place] [phone] documented as of this encounter Goals Goal Patient Goal Type Associated Problems Recent Progress Patient-Stated? Author Your pain? Symptom Management 9(11/20/2022 2:41 PM TOOL AND DIE MAKER) No Phyllis-Girma Bush, RCandidoN., O.C.N. Note: 05/24/2021: Pain algorithm completed. [facility] [place]: Followup 06/07 via portal [...] documented as of this encounter Care Teams Human Resources Psychologist Relationship Specialty Start Date End Date Elsewhere, Pcp PCP - General Internal Medicine 10/14/22 documented as of this encounter
--- OUTSIDE RECORDS SUMMARY | 2023-12-18 18:00 | XMS_ITS | Encounter Summary ---
Author Name Unknown Organization [facility] Address [address] [place] [address] Care Team Providers Care Laundry Sorter Name Role Phone Elsewhere, Pcp Primary Care Provider Unavailabl e Reason for Referral * Outpatient (Routine) - Closed Specialty Diagnoses / Procedures Referred By Contac t Referred To Contact Diagnoses Malignant Neoplasm Of Rectum (HCC) Pain Cancer Associated Procedures ECG 12 Lead Louisa Padilla P.A.-C. [address] [place] [phone] [facility] Referral ID Status Reason Start Date Expiration Date Visits Re quested Visits Authorized [id number] Closed 10/02/2023 10/01/2024 1 1 UCT SUPPORT CONSULTANT * Outpatient (Routine) - Closed Specialty Diagnoses / Procedures Referred By Contac t Referred To Contact Palliative Medicine Diagnoses na Louisa Padilla P.A.-C. 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 [address] [place] [address] [facility] Referral ID Status Reason Start Date Expiration Date Visits Re quested Visits Authorized [id number] Closed 09/10/2023 09/09/2024 1 1 Encounter Details Date Type Department Care Team (Latest Contact Info) Description 09/26/2023 1:00 PM PRODUCT SUPPORT CONSULTANT Comprehensive Visit Department of Palliative Care in [place], [place] [address] [place] [phone] Giorgio Fishman M.D. [address] [place] [address] Louisa Padilla P.A.-C. [address] [place] [phone] Sunita Nguyen R.N. [address] [place] [phone] Malignant Neoplasm Of Rectum (HCC) (Primary Dx); [...] any clubs o r organizations such as congregation groups, unions, fraternal or athletic groups, or [...] Answer Date Recorded PHQ-2 Score 0 04/25/2019 [facility] Occupat ional [facility] - Occupational Stress Questionnaire Answer [...] degree (e.g., MA, MS, Ana Lilia, MEd, BULK GAS SPECIALIST, GORDO) 02/15/2022 Sex and Gender Information Value Date Recorded Sex Assigned at Male 04/23/2018 1:23 PM CDT Gender Identity Male 04/23/2018 1:23 PM CDT Sexual Orientation Straight 04/23/2018 1: 23 PM CDT documented as of this encounter Last Filed Vital Signs Vital Sign Reading Time Taken Comments Blood Pressure 146/100 09/26/2023 12:56 PM PRODUCT SUPPORT CONSULTANT Pulse 117 09/26/2023 12:56 PM PRODUCT SUPPORT CONSULTANT Temperature 36.3 ??C (97.3 ??F) 09/26/2023 12:[address] Respiratory Rate - - Oxygen Saturation 98% 09/26/2023 12:56 PM PRODUCT SUPPORT CONSULTANT Inhaled Oxygen Concentration - - Weight - - Height - - Body Mass Index - - documented in this encounter Patient Instructions * Patient Instructions* Sunita Nguyen R.N. - 09/26/2023 1:00 PM PRODUCT SUPPORT CONSULTANT PAIN: -start methadone. Long acting pain medication. [...] treat this side effect. There are several tqtr-xim-ktiejex options. Goal is to have a soft, [...] for further guidance. Palliative Care Clinic Team: [phone] UCT SUPPORT CONSULTANT documented in this encounter Progress Notes * [...] Care: Care for People with Serious Illness [id number] and Integrative and Supportive Therapies for Palliative Care Patients [id number] provided at this visit. Standard Opioid education included: Medication specific education for Methadone and hydromorphone Safe Management of Controlled Substances [id number] Important Information About Opioid Medication [id number] (page 7 opioid withdrawal) Treating Constipation Caused by Pain Medications [id number] Follow-up as per the consult note of Louisa Padilla PA-C UCT SUPPORT CONSULTANT documented in this encounter Consult Notes * Louisa Padilla P.A.-C. - 09/26/2023 1:00 PM CST [facility] Outpatient Palliative Care Consult Note Patient: Luis Tabares; 43 y.o.male Date of Service: 09/26/2023 REFERRING SERVICE Oncology LOCATION Palliative Care Clinic SUBJECTIVE CHIEF COMPLAINT / REASON FOR CONSULT Luis Tabares is a 43 y.o. 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 [place] for [...] controlled substance prescribing: cancer related pain State [employer] Review: We have reviewed the patient's record in the [place] prescription monitoring program September 26, 2023. Opioid Toxicity Review: We have reviewed the risks of opioid therapy and completed an assessment oftoxicities. Opioid Aberrant Use Concerns: None Recommended Opioid Regimen as of September 26, 2023.: as above Opioid Risk Score: Last Opioid Risk Tool charting Flowsheet Row Comprehensive Visit from 09/26/2023 in Department of Palliative Care in [place], [place] ORT Total Score (max 26) 1 We have reviewed risks, benefits and alternatives related to opioid prescribing as well as relevantmitigation strategies. Psychosocial Care Needs other At this time discussed his goals to have further conversations with his 7 year old son. He feels like they need to provide him more information about the cancer. I provided a document from [facility] [place] regarding parenting at a challenging time. I [...] spent was 60 minutes. Louisa Padilla P.A.-C. UCT SUPPORT CONSULTANT documented in this encounter Plan of Treatment Upcoming Encounters Date Type Department Care Team (Late st Contact Info) Description 12/23/2023 8:30 AM PRODUCT SUPPORT CONSULTANT Clinical Communication Virtual Review in [address] [address] 12/24/2023 10:30 AM PRODUCT SUPPORT CONSULTANT Appointment Department of Radiology, [facility], in [address] [phone] Noelle Reyes P.A.-C., P.A. [address] [place] [phone] 12/24/2023 11:00 AM PRODUCT SUPPORT CONSULTANT Lab Department of Infusion Therapy in [address] [phone] Noelle Reyes P.A.-C., P.A. [address] [place] [phone] 12/24/2023 2:15 PM PRODUCT SUPPORT CONSULTANT Office Visit Department of Palliative Care in [address] [phone] Aylin Smith, CINDY, C.N.P., M.S.N. [address] [place] [phone] 12/24/2023 4:10 PM PRODUCT SUPPORT CONSULTANT Office Visit Department of Oncology in [place], [place] [address] [place] [address] Ned Alegria M.D. [address] [place] [phone] Scheduled Referrals Name Type Priority Associated Diagnoses Order Schedule Palliative Care office visit (clinic) Outpatient Referral Routine Expected: 10/17/2023 (Approximate), Expires: 12/27/2024 documented as of this encounter Goals Goal Patient Goal Type Associated Problems Recent Progress Patient-Stated? Author Your pain? Symptom Management 9(11/20/2022 2:41 PM PRODUCT SUPPORT CONSULTANT) No Fee-Girma Bush, R.N., O.C.N. Note: 05/24/2021: Pain algorithm completed. [facility] [place]: Followup 06/07 via portal per [...] * ECG 12 Lead (10/28/2023 12:00 PM PRODUCT SUPPORT CONSULTANT) Ventricular Rate ECG/Min 118 BPM MUSE NC Interval 146 ms MUSE QRSD Interval 88 ms MUSE QT Interval 326 ms MUSE QTC Interval 456 ms MUSE P [place] 47 degrees MUSE R [place] 72 degrees MUSE T Wave [place] 32 degrees MUSE 10/28/2023 12:0 0 PM PRODUCT SUPPORT CONSULTANT 10/28/2023 12:09 PM PRODUCT SUPPORT CONSULTANT Impressions MUSE - 10/28/2023 12:09 PM PRODUCT SUPPORT CONSULTANT Sinus tachycardia Otherwise normal ECG When compared [...] documented as of this encounter Care Teams Laundry Sorter Relationship Specialty Start Date End Date Elsewhere, Pcp PCP - General Internal Medicine 10/14/22 documented as of this encounter
--- OUTSIDE RECORDS SUMMARY | 2023-12-18 18:00 | XMS_ITS | Encounter Summary ---
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 [address] [place] [address] [facility] Referral ID Status Reason Start Date Expiration Date Visits Re quested Visits Authorized [id number] Closed 09/10/2023 09/09/2024 1 1 Encounter Details Date Type Department Care Team (Latest Contact Info) Description 09/18/2023 3:05 PM CDT - 09/18/2023 11:59 PM CDT Hospital Encounter Department of Radiology, [facility], in [place], [place] [address] [place] [address] Giorgio Fishman M.D. [address] [place] [address] Malignant Neoplasm Of Rectum (HCC); Secondary Malignant [...] degree (e.g., MA, MS, Ana Lilia, MEd, POWERHOUSE TENDER, GORDO) 02/15/2022 Sex and Gender Information [...] chest pain. 25 tablet 12 05/28/2018 omega 7-koi-vcz-fish oil 1,000 mg (120 mg-180 mg) capsule [...] st Contact Info) Description 12/23/2023 8:30 AM TOBACCO CONDITIONER Clinical Communication Virtual Review in [address] [address] 12/24/2023 10:30 AM TOBACCO CONDITIONER Appointment Department of Radiology, [facility], in [address] [phone] Noelle Reyes P.A.-C., P.A. [address] [place] [phone] 12/24/2023 11:00 AM TOBACCO CONDITIONER Lab Department of Infusion Therapy in [address] [phone] Noelle Reyes P.A.-C., P.A. [address] [place] [address] 12/24/2023 2:15 PM TOBACCO CONDITIONER Office Visit Department of Palliative Care in [address] [phone] Aylin Smith, CINDY, C.N.P., M.S.N. [address] [place] [phone] 12/24/2023 4:10 PM TOBACCO CONDITIONER Office Visit Department of Oncology in [address] [phone] Ned Alegria M.D. [address] [place] [phone] documented as of this encounter Goals Goal Patient Goal Type Associated Problems Recent Progress Patient-Stated? Author Your pain? Symptom Management 9(11/20/2022 2:41 PM TOBACCO CONDITIONER) No Fee-Girma Bush R.N., O.C.N. Note: 05/24/2021: Pain algorithm completed. OU [...] maximum intensity projections/volume renderings were created on anindepThomas-Krenn workstation as ordered by the treating provider [...] image 40, 61, 68) and segment 5/6 ([id number] image 103) have also very slightly increased in size. Additional linearareas of hypoenhancement along the inferior margin of the prior ablationdefect tract near the hepatic hilum and may represent hilar adenopathy (series 13 image 81). Multipleadditional enlarged hilar and upper retroperitoneal lymph nodes, includinga portal caval conglomerate measuring approximately 3.6 x 2.4 cm ([id number] image 85, series 17 image 141), previously [...] documented as of this encounter Care Teams Retoucher Relationship Specialty Start Date End Date Elsewhere, Pcp PCP - General Internal Medicine 10/14/22 documented as of this encounter
--- OUTSIDE RECORDS SUMMARY | 2023-12-18 18:01 | XMS_ITS | Encounter Summary ---
Author Name Unknown Organization [facility] Address [address] [place] [address] Care Team Providers Care Environmental Educator Name Role Phone Elsewhere, Pcp Primary Care Provider Unavailabl e Encounter Details Date Type Department Care Team (Late st Contact Info) Description 08/20/2023 7:58 AM CDT Anesthesia Event Division of Gastroenterology in [place], [place] [address] [place] [phone] Kyler Estrada APRN, CRNA, DNAP [address] [place] [phone] Naveen Biswas M.D. [address] [place] [phone] Anesthesia Record Procedure Summary Procedure Name Responsible [...] any clubs o r organizations such as jewish groups, unions, fraternal or athletic groups, or [...] Score 0 04/25/2019 [facility] - Occupational Stress Questionnaire Answer Date [...] degree (e.g., MA, MS, Ana Lilia, MEd, URGENT CARE NURSE PRACTITIONER, GORDO) 02/15/2022 Sex and Gender Information Value [...] Room / Location: Division of Gastroenterology in [place], [place] Anesthesia Start: 0758 Anesthesia Stop: Procedure: [...] (HCC) [C20] Location: Division of Gastroenterology in [place], [place] Pertinent components of the patient's history [...] with patient /legal guardian or through an poultry tender. The use of blood products not discussed Approval to Proceed: approved for anesthesia documented in this encounter Plan of Treatment Upcoming Encounters Date Type Department Care Team (Late st Contact Info) Description 12/23/2023 8:30 AM GATE CUTTER Clinical Communication Virtual Review in [place], [place] 200 [place] [address] 12/24/2023 10:30 AM GATE CUTTER Appointment Department of Radiology, [facility] in [address] [address] Noelle Reyes P.A.-C., P.A. [address] [place] [phone] 12/24/2023 11:00 AM GATE CUTTER Lab Department of Infusion Therapy in [place], [place] [address] [place] [phone] Noelle Reyes, P.A.-C., P.A. [address] [place] [phone] 12/24/2023 2:15 PM GATE CUTTER Office Visit Department of Palliative Care in [address] [phone] Aylin Smith APRN, C.N.P., M.S.N. [address] [place] [phone] 12/24/2023 4:10 PM GATE CUTTER Office Visit Department of Oncology in [place], [place] [address] [place] [phone] Ned Alegria M.D. [address] [place] [phone] documented as of this encounter Goals Goal Patient Goal Type Associated Problems Recent Progress Patient-Stated? Author Your pain? Symptom Management 9(11/20/2022 2:41 PM GATE CUTTER) Girma Gaspar R.N., O.C.N. Note: 05/24/2021: Pain [...] as of this encounter Care Teams Environmental Educator Relationship Specialty Start Date End Date Elsewhere, Pcp PCP - General Internal Medicine 10/14/22 documented as of this encounter
--- OUTSIDE RECORDS SUMMARY | 2023-12-18 18:01 | XMS_ITS | Encounter Summary ---
Author Name Unknown Organization [facility] Address [address] [place] [address] Care Team Providers Care Business Attorney Name Role Phone Elsewhere, Pcp Primary Care Provider Unavailabl e Reason for Visit * Outpatient (Routine) - Closed Specialty Diagnoses / Procedures Referred By Halima owen Referred To Contact Pain Medicine Diagnoses Sean Clayton D.O. [address] [place] [phone] [facility] Referral ID Status Reason Start Date Expiration Date Visits Re quested Visits Authorized [id number] Closed 08/27/2023 08/26/2026 1 1 Encounter Details Date Type Department Care Team (Late st Contact Info) Description 09/03/2023 9:30 AM CDT Office Visit Division of Pain Medicine in [place], [place] [address] [place] [phone] Yassine Parekh M.D. [address] [place] [phone] Pain Low Back Unspecified (Primary Dx); Abdominal [...] often do you attend chur ch or restorationist services? Never 02/03/2023 Do you [...] Answer Date Recorded PHQ-2 Score 0 04/25/2019 [facility] of Occupat ional Health - Occupational Stress [...] place to sleep or slept in a [place] health care facility (including now)? No 02/03/2023 Nutrition Answer Date [...] degree (e.g., MA, MS, Ana Lilia, MEd, BEDSPREAD CUTTER, GORDO) 02/15/2022 Sex and Gender Information [...] spent a total of 25 minutes in evg-ejpo-cr-face time performing a review of the recordand/or [...] st Contact Info) Description 12/23/2023 8:30 AM COOK ENCHILADA Clinical Communication Virtual Review in [address] [address] 12/24/2023 10:30 AM COOK ENCHILADA Appointment Department of Radiology, [facility] in [address] [phone] Noelle Reyes P.A.-C., P.A. [address] [place] [phone] 12/24/2023 11:00 AM COOK ENCHILADA Lab Department of Infusion Therapy in [address] [phone] Noelle Reyes P.A.-C., P.A. [address] [place] [phone] 12/24/2023 2:15 PM COOK ENCHILADA Office Visit Department of Palliative Care in [address] [phone] Aylin Smith, CINDY, C.N.P., M.S.N. [address] [place] [phone] 12/24/2023 4:10 PM COOK ENCHILADA Office Visit Department of Oncology in [address] [phone] Ned Alegria M.D. [address] [place] [phone] documented as of this encounter Goals Goal Patient Goal Type Associated Problems Recent Progress Patient-Stated? Author Your pain? Symptom Management 9(11/20/2022 2:41 PM COOK ENCHILADA) No Phyllis-Girma Bush R.N., O.C.N. Note: 05/24/2021: Pain algorithm completed. [facility] [place] [place] 05/24/2021: Followup 06/07 via portal per patient [...] as of this encounter Care Teams Business Attorney Relationship Specialty Start Date End Date Elsewhere, Pcp PCP - General Internal Medicine 10/14/22 documented as of this encounter
--- OUTSIDE RECORDS SUMMARY | 2023-12-18 18:01 | XMS_ITS | Encounter Summary ---
Author Name Unknown Organization [facility] Address [address] [place] [address] Care Team Providers Care Scagliola Mechanic Name Role Phone Elsewhere, Pcp Primary Care Provider Unavailabl e Reason for Referral * Outpatient (Routine) - Closed Specialty Diagnoses / Procedures Referred By Contac t Referred To Contact Diagnoses Pain Epigastric Procedures US Gallbladder and or Biliary Ducts Margaret Baptiste M.D., M.S. [address] [place] [phone] [facility] Referral ID Status Reason Start Date Expiration Date Visits Re quested Visits Authorized [id number] Closed 08/20/2023 08/19/2024 1 1 Reason for Visit * Outpatient (Routine) - Closed Specialty Diagnoses / Procedures Referred By Contac t Referred To Contact Diagnoses Pain Epigastric Procedures US Gallbladder and or Biliary Ducts Margaret Baptiste M.D., M.S. [address] [place] [phone] [facility] Referral ID Status Reason Start Date Expiration Date Visits Re quested Visits Authorized [id number] Closed 08/20/2023 08/19/2024 1 1 Encounter Details Date Type Department Care Team (Late st Contact Info) Description 08/25/2023 10:13 AM CDT - 08/25/2023 11:59 PM CDT Hospital Encounter Department of Radiology, [facility], in [place], [place] [address] [place] [phone] Margaret Baptiste M.D., M.S. [address] [place] [address] Pain Epigastric Discharge Disposition: Home or Self [...] week 02/03/2023 How often do you attend [facility] or baptism services? Never 02/03/2023 Do you [...] 0 04/25/2019 [facility] - Occupational Stress Questionnaire Answer Date [...] degree (e.g., MA, MS, Ana Lilia, MEd, FLOOR MANAGER, GORDO) 02/15/2022 Sex and Gender Information [...] chest pain. 25 tablet 12 05/28/2018 omega 7-jzo-ubh-fish oil 1,000 mg (120 mg-180 mg) capsule [...] st Contact Info) Description 12/23/2023 8:30 AM CREW LEADER/CONTROL ROOM OPERATOR Clinical Communication Virtual Review in [place], [place] 200 [place] [address] 12/24/2023 10:30 AM CREW LEADER/CONTROL ROOM OPERATOR Appointment Department of Radiology, [facility], in [place], [place] [address] [place] [phone] Noelle Reyes P.A.-C., P.A. [address] [place] [phone] 12/24/2023 11:00 AM CREW LEADER/CONTROL ROOM OPERATOR Lab Department of Infusion Therapy in [place], [place] [address] [place] [phone] Noelle Reyes P.A.-C., P.A. [address] [place] [phone] 12/24/2023 2:15 PM CREW LEADER/CONTROL ROOM OPERATOR Office Visit Department of Palliative Care in [place], [place] [address] [place] [phone] Aylin Smith, CINDY, C.N.P., M.S.N. [address] [place] [phone] 12/24/2023 4:10 PM CREW LEADER/CONTROL ROOM OPERATOR Office Visit Department of Oncology in [place], [place] [address] [place] [phone] Ned Alegria M.D. [address] [place] [phone] documented as of this encounter Goals Goal Patient Goal Type Associated Problems Recent Progress Patient-Stated? Author Your pain? Symptom Management 9(11/20/2022 2:41 PM CREW LEADER/CONTROL ROOM OPERATOR) No Fee-Girma Bush, R.N., O.C.N. Note: [...] documented as of this encounter Care Teams Scagliola Mechanic Relationship Specialty Start Date End Date Elsewhere, Pcp PCP - General Internal Medicine 10/14/22 documented as of this encounter
--- OUTSIDE RECORDS SUMMARY | 2023-12-18 18:01 | XMS_ITS | Encounter Summary ---
Author Name Unknown Organization [facility] Address [address] [place] [address] Care Team Providers Care Assistant Manager Name Role Phone Elsewhere, Pcp Primary [...] to Thigh FDG Giorgio Fishman M.D. 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 [address] [place] [address] [facility] Referral ID Status Reason Start Date Expiration Date Visits Re quested Visits Authorized [id number] Closed 08/27/2023 08/26/2024 1 1 Encounter Details Date Type Department Care Team (Latest Contact Info) Description 08/29/2023 10:37 AM CDT - 08/29/2023 11:59 PM CDT Hospital Encounter Department of Radiology, [facility], in [place], [place] [address] [place] [address] Giorgio Fishman M.D. [address] [place] [address] Malignant Neoplasm Of Rectum (HCC); Secondary Malignant [...] often do you attend chur ch or sikh services? Never 02/03/2023 Do you belong to any clubs o r organizations such as roman catholic groups, unions, fraternal or athletic groups, or [...] place to sleep or slept in a usp (including now)? No 02/03/2023 Nutrition Answer Date [...] degree (e.g., MA, MS, Ana Lilia, MEd, NETWORK SUPPORT SPECIALIST, GORDO) 02/15/2022 Sex and Gender Information [...] chest pain. 25 tablet 12 05/28/2018 omega 0-jqf-yjr-fish oil 1,000 mg (120 mg-180 mg) capsule [...] Contact Info) Description 12/23/2023 8:30 AM DIRECTOR HOME Clinical Communication Virtual Review in [place], [place] 200 [place] [address] 12/24/2023 10:30 AM DIRECTOR HOME Appointment Department of Radiology, [facility], in [place], [place] [address] [place] [address] Noelle Reyes P.A.-C., P.A. 701 [place] [phone] 12/24/2023 11:00 AM DIRECTOR HOME Lab Department of Infusion Therapy in [place], [place] [address] [place] [phone] Noelle Reyes P.A.-C., P.A. 701 [place] [phone] 12/24/2023 2:15 PM DIRECTOR HOME Office Visit Department of Palliative Care in [address] [phone] Aylin Smith APRN, C.NCandidoP., M.S.N. [address] [place] [phone] 12/24/2023 4:10 PM DIRECTOR HOME Office Visit Department of Oncology in [address] [phone] Ned Alegria M.D. [address] [place] [phone] documented as of this encounter Goals Goal Patient Goal Type Associated Problems Recent Progress Patient-Stated? Author Your pain? Symptom Management 9(11/20/2022 2:41 PM DIRECTOR HOME) Raisa Ferguson-Girma Bush, RCandidoN., O.C.N. Note: 05/24/2021: [...] RADIOPHARMACEUTICAL/MEDS: Route: intravenous fludeoxyglucose F 18 injection GROUP HOME (FDG F-18),10.11 millicurie TECHNIQUE: ??F-18 FDG PET/CT [...] RADIOPHARMACEUTICAL/MEDS: Route: intravenous fludeoxyglucose F 18 injection GROUP HOME (FDG F-18),10.11 millicurie TECHNIQUE: F-18 FDG PET/CT [...] node has an SUV max of 7.3 ([id number]), previously 5.5. New FDG avid paraesophageal lymph [...] Incidental significant findings on low-dose, noncontrast CT: SftuwKilj-K-Jteb with the tip in RA/SVC. Gynecomastia. Right lower lobe with resection. Pathologic [id number] rib fracture. Atrophic right maxillary sinus with [...] Dose Rate Site fludeoxyglucose F 18 injection GROUP HOME (FDG F-18) 4.5-16.5 millicurie, intravenous, Once, On [...] as of this encounter Care Teams Assistant Manager Relationship Specialty Start Date End Date Elsewhere, Pcp PCP - General Internal Medicine 10/14/22 documented as of this encounter
--- OUTSIDE RECORDS SUMMARY | 2023-12-18 18:01 | XMS_ITS | Encounter Summary ---
Author Name Unknown Organization [facility] Address [address] [place] [address] Care Team Providers Care Shop Laborer Name Role Phone Elsewhere, Pcp Primary Care [...] week 02/03/2023 How often do you attend [facility] or episcopal services? Never 02/03/2023 Do you [...] Answer Date Recorded PHQ-2 Score 0 04/25/2019 [facility]at ional Health - Occupational [...] degree (e.g., MA, MS, Ana Lilia, MEd, ENGINEERING AGENT, GORDO) 02/15/2022 Sex and Gender Information Value Date Recorded Sex Assigned at Male 04/23/2018 1:23 PM CDT Gender Identity Male 04/23/2018 1:23 PM CDT Sexual Orientation Straight 04/23/2018 1: 23 PM CDT documented as of this encounter Plan of Treatment Upcoming Encounters Date Type Department Care Team (Late st Contact Info) Description 12/23/2023 8:30 AM SOCIAL INSURANCE ANALYST Clinical Communication Virtual Review in [place], [place] 200 [place] [address] 12/24/2023 10:30 AM SOCIAL INSURANCE ANALYST Appointment Department of Radiology, [facility], in [place], [place] [address] [place] [phone] Noelle Reyes P.A.-C., P.A. [address] [place] [phone] 12/24/2023 11:00 AM SOCIAL INSURANCE ANALYST Lab Department of Infusion Therapy in [address] [phone] Noelle Reyes P.A.-Tristan., P.A. 701 [place] [phone] 12/24/2023 2:15 PM SOCIAL INSURANCE ANALYST Office Visit Department of Palliative Care in [place], [place] [address] [place] [phone] Aylin Smith, CINDY, C.NCandidoP., M.S.N. [address] [place] [phone] 12/24/2023 4:10 PM SOCIAL INSURANCE ANALYST Office Visit Department of Oncology in [place], [place] [address] [place] [phone] Ned Alegria M.D. [address] [place] [phone] documented as of this encounter Goals Goal Patient Goal Type Associated Problems Recent Progress Patient-Stated? Author Your pain? Symptom Management 9(11/20/2022 2:41 PM SOCIAL INSURANCE ANALYST) No Phyllis-Girma Bush, RCandidoN., O.C.N. Note: 05/24/2021: Pain algorithm completed. [facility] 05/24/2021: Followup 06/07 via portal per patient [...] documented as of this encounter Care Teams Shop Laborer Relationship Specialty Start Date End Date Elsewhere, Pcp PCP - General Internal Medicine 10/14/22 documented as of this encounter
--- OUTSIDE RECORDS SUMMARY | 2023-12-18 18:01 | XMS_ITS | Encounter Summary ---
Author Name Unknown Organization [facility] Address [address] [place] [address] Care Team Providers Care Dairy Bar Manager Name Role Phone Elsewhere, Pcp Primary [...] to Thigh FDG Giorgio Guzman M.D. [address] [place] [address] [facility] Referral ID Status Reason Start Date Expiration Date Visits Re quested Visits Authorized [id number] Closed 08/27/2023 08/26/2024 1 1 Reason for Visit * Reason Comments Treatment * Outpatient (Routine) - Closed Specialty Diagnoses / Procedures Referred By Halima owen Referred To Contact Oncology Ned Alegria M.D. [address] [place] [address] [facility] Referral ID Status Reason Start Date Expiration Date Visits Re quested Visits Authorized [id number] Closed 07/31/2023 07/30/2026 1 1 Encounter Details Date Type Department Care Team ([facility] st Contact Info) Description 08/25/2023 8:20 AM CDT Office Visit Department of Oncology in [place], [place] [address] [place] [phone] Giorgio Guzman M.D. [address] [place] [phone] Malignant Neoplasm Of Rectum (HCC) (Primary Dx); [...] often do you attend chur ch or restorationism services? Never 02/03/2023 Do you belong to any clubs o r organizations such as mormon groups, unions, fraternal or athletic groups, or [...] degree (e.g., MA, MS, Ana Lilia, MEd, BI APPLICATION DEVELOPER, GORDO) 02/15/2022 Sex and Gender Information [...] PHYSICIAN ELSEWHERE, PCP LOCAL ONCOLOGIST No care recruiting team lead to display PRIMARY ROTAN ONCOLOGIST Giorgio Guzman M.D. CHIEF COMPLAINT / [...] was positive for invasive adenocarcinoma. Came to [facility] and seen by Gastroenterology. Underwent staging MRI [...] Right posterolateral thoracotomy and mediastinal lymphadenectomy. SURGEON(S) MAJOR ACCOUNT MANAGER: Jazmine Bowden M.D. ASSISTING RESIDENT: Bandar [...] for metastasis 06/11/2021 - 06/13/2021 Radiation Therapy 5365-7779 cGy in 3 fractions to right posterior [...] for metastasis 06/11/2021 - 06/13/2021 Radiation Therapy 2128-2852 cGy in 3 fractions to right posterior [...] st Contact Info) Description 12/23/2023 8:30 AM [facility] Clinical Communication Virtual Review in [address] [address] [phone] 12/24/2023 10:30 AM SURGICAL CORSETIER Appointment Department of Radiology, [facility], in [place], [place] [address] [place] [phone] Noelle Reyes P.A.-C., P.A. 701 [place] [phone] 12/24/2023 11:00 AM SURGICAL CORSETIER Lab Department of Infusion Therapy in [place], [place] [address] [place] [phone] Noelle Reyes P.A.-C., P.A. 701 [place] [phone] 12/24/2023 2:15 PM SURGICAL CORSETIER Office Visit Department of Palliative Care in [place], [place] [address] [place] [phone] Aylin Smith APRN, CCandidoN.P., M.S.N. [address] [place] [phone] 12/24/2023 4:10 PM SURGICAL CORSETIER Office Visit Department of Oncology in [place], [place] [address] [place] [phone] Ned Alegria M.D. [address] [place] [phone] documented as of this encounter Goals Goal Patient Goal Type Associated Problems Recent Progress Patient-Stated? Author Your pain? Symptom Management 9(11/20/2022 2:41 PM SURGICAL CORSETIER) No Fee-Girma Bush, RCandidoN., O.C.N. Note: 05/24/2021: Pain algorithm completed. [facility] 05/24/2021: Followup 06/07 via [...] RADIOPHARMACEUTICAL/MEDS: Route: intravenous fludeoxyglucose F 18 injection FPC (FDG F-18),10.11 millicurie TECHNIQUE: ??F-18 FDG PET/CT [...] RADIOPHARMACEUTICAL/MEDS: Route: intravenous fludeoxyglucose F 18 injection FPC (FDG F-18),10.11 millicurie TECHNIQUE: F-18 FDG PET/CT [...] node has an SUV max of 7.3 ([id number]), previously 5.5. New FDG avid paraesophageal lymph [...] Incidental significant findings on low-dose, noncontrast CT: LtpvpGyem-Q-Cylr with the tip in RA/SVC. Gynecomastia. Right lower lobe with resection. Pathologic ivwlz5tw rib fracture. Atrophic right maxillary sinus with [...] documented as of this encounter Care Teams Dairy Bar Manager Relationship Specialty Start Date End Date Elsewhere, Pcp PCP - General Internal Medicine 10/14/22 documented as of this encounter
--- OUTSIDE RECORDS SUMMARY | 2023-12-18 18:01 | XMS_ITS | Encounter Summary ---
Author Name Unknown Organization [facility] Address [address] [place] [address] Care Team Providers Care Social Welfare Administrator Name Role Phone Elsewhere, Pcp Primary Care Provider Unavailabl e Reason for Referral * Outpatient (Routine) - Closed Specialty Diagnoses / Procedures Referred By Contac t Referred To Contact Diagnoses Pain Epigastric Procedures US Gallbladder and or Biliary Ducts Margaret Baptiste M.D., M.S. [address] [place] [phone] [facility] Referral ID Status Reason Start Date Expiration Date Visits Re quested Visits Authorized [id number] Closed 08/20/2023 08/19/2024 1 1 Encounter Details Date Type Department Care Team (Late st Contact Info) Description 08/20/2023 Orders Only Division of Gastroenterology in [place], [place] [address] [place] [phone] Margaret Baptiste M.D., M.S. [address] [place] [phone] Pain Epigastric (Primary Dx) Social History Tobacco [...] How often do you attend chur or confucianism services? Never 02/03/2023 Do you belong to any clubs o r organizations such as jain groups, unions, fraternal or athletic groups, or [...] Score 0 04/25/2019 [facility]ational [facility] Questionnaire Answer [...] (e.g., MA, MS, Ana Lilia, MEd, MANAGER EPIC, GORDO) 02/15/2022 Sex and Gender Information Value Date Recorded Sex Assigned at Male 04/23/2018 1:23 PM CDT Gender Identity Male 04/23/2018 1:23 PM CDT Sexual Orientation Straight 04/23/2018 1: 23 PM CDT documented as of this encounter Plan of Treatment Upcoming Encounters Date Type Department Care Team (Late st Contact Info) Description 12/23/2023 8:30 AM SOLUTION DESIGNER Clinical Communication Virtual Review in [place], [place] 200 [place] [address] 12/24/2023 10:30 AM SOLUTION DESIGNER Appointment Department of Radiology, [facility] in [place], [place] [address] [place] [phone] Noelle Reyes PCandidoA.-C., P.A. 701 [place] [phone] 12/24/2023 11:00 AM SOLUTION DESIGNER Lab Department of Infusion Therapy in [place], [place] [address] [place] [phone] Noelle Reyes P.A.-C., P.A. 701 [place] [phone] 12/24/2023 2:15 PM SOLUTION DESIGNER Office Visit Department of Palliative Care in [place], [place] [address] [place] [phone] Aylin Smith, CINDY, C.N.P., M.S.N. [address] [place] [phone] 12/24/2023 4:10 PM SOLUTION DESIGNER Office Visit Department of Oncology in [place], [place] [address] [place] [phone] Ned Alegria M.D. [address] [place] [phone] documented as of this encounter Goals Goal Patient Goal Type Associated Problems Recent Progress Patient-Stated? Author Your pain? Symptom Management 9(11/20/2022 2:41 PM SOLUTION DESIGNER) No Fee-Girma Bush, R.N., O.C.N. Note: 05/24/2021: [...] documented as of this encounter Care Teams Social Welfare Administrator Relationship Specialty Start Date End Date Elsewhere, Pcp PCP - General Internal Medicine 10/14/22 documented as of this encounter
--- OUTSIDE RECORDS SUMMARY | 2023-12-18 18:01 | XMS_ITS | Encounter Summary ---
Author Name Unknown Organization [facility] Address [address] [place] [address] Care Team Providers Care Vp Clinical Research Name Role Phone Elsewhere, Pcp Primary Care Provider Unavailabl e Encounter Details Date Type Department Care Team (Late st Contact Info) Description 08/20/2023 Clinical Communication Division of Gastroenterology in [place], [place] [address] [place] [phone] Margaret Baptiste M.D., M.S. [address] [place] [phone] Social History Tobacco Use Types Packs/Day Years [...] degree (e.g., MA, MS, Ana Lilia, MEd, POLICY WRITER, GORDO) 02/15/2022 Sex and Gender Information Value [...] st Contact Info) Description 12/23/2023 8:30 AM GREEN CHAIN WORKER Clinical Communication Virtual Review in [address] [address] 12/24/2023 10:30 AM GREEN CHAIN WORKER Appointment Department of Radiology, [facility], in [address] [phone] Noelle Reyes P.A.-C., P.A. 701 [place] [phone] 12/24/2023 11:00 AM GREEN CHAIN WORKER Lab Department of Infusion Therapy in [address] [phone] Noelle Reyes P.Shantal.-C., P.A. [address] [place] [phone] 12/24/2023 2:15 PM GREEN CHAIN WORKER Office Visit Department of Palliative Care in [address] [phone] Aylin Smith, CINDY, C.N.P., M.S.N. [address] [place] [phone] 12/24/2023 4:10 PM GREEN CHAIN WORKER Office Visit Department of Oncology in [address] [phone] Ned Alegria M.D. [address] [place] [phone] documented as of this encounter Goals Goal Patient Goal Type Associated Problems Recent Progress Patient-Stated? Author Your pain? Symptom Management 9(11/20/2022 2:41 PM GREEN CHAIN WORKER) No Fee-Girma Bush, Elfego., O.C.N. Note: 05/24/2021: Pain algorithm completed. [facility] 05/24/2021: Followup 06/07 [...] that his need for medication may change. [facility] 06/07/2021: Pain rating over the [...] documented as of this encounter Care Teams Vp Clinical Research Relationship Specialty Start Date End Date Elsewhere, Pcp PCP - General Internal Medicine 10/14/22 documented as of this encounter
--- OUTSIDE RECORDS SUMMARY | 2023-12-18 18:01 | XMS_ITS | Encounter Summary ---
Author Name Unknown Organization [facility] Address [address] [place] [address] Care Team Providers Care Sleep Scientist Name Role Phone Elsewhere, Pcp Primary Care Provider Unavailabl e Reason for Referral * Outpatient (Routine) - Closed Specialty Diagnoses / Procedures Referred By Contac t Referred To Contact Diagnoses Malignant Neoplasm Of Rectum (HCC) Procedures EGD (EsophagealGastroDuodenoscopy ) Ned Alegria M.D. [address] [place] [phone] [facility] Referral ID Status Reason Start Date Expiration Date Visits Re quested Visits Authorized [id number] Closed 07/31/2023 07/30/2024 1 1 Reason for Visit * Outpatient (Routine) - Closed Specialty Diagnoses / Procedures Referred By Contac t Referred To Contact Diagnoses Malignant Neoplasm Of Rectum (HCC) Procedures EGD (EsophagealGastroDuodenoscopy ) Ned Alegria M.D. 200 [place] [address] [facility] Referral ID Status Reason Start Date Expiration Date Visits Re quested Visits Authorized [id number] Closed 07/31/2023 07/30/2024 1 1 Encounter Details Date Type Department Care Team (Latest Contact Info) Description 08/20/2023 6:49 AM CDT - 08/20/2023 11:59 PM CDT Hospital Encounter Division of Gastroenterology in [place], [place] [address] [place] [phone] Ned Alegria M.D. 200 [place] [phone] Miguel A Moctezuma M.D. 200 [place] [phone] Kyler Estrada, CLINICAL TRIAL ASSOCIATE, APARTMENT RENTAL AGENT, DNAP 200 [place] [phone] Malignant Neoplasm Of Rectum (HCC) Discharge Disposition: [...] Answer Date Recorded PHQ-2 Score 0 04/25/2019 [facility] of Occupat ional Health - Occupational Stress [...] degree (e.g., MA, MS, Ana Lilia, MEd, ELIGIBILITY ANALYST, GORDO) 02/15/2022 Sex and Gender Information [...] Care Everywhere. * Care Following Upper Endoscopy (Tajik) documented in this encounter Medications at Time [...] chest pain. 25 tablet 12 05/28/2018 omega 1-qun-kvl-fish oil 1,000 mg (120 mg-180 mg) capsule [...] st Contact Info) Description 12/23/2023 8:30 AM ELEMENTARY SCHOOL LIBRARIAN Clinical Communication Virtual Review in [place], [place] 200 [place] [address] 12/24/2023 10:30 AM ELEMENTARY SCHOOL LIBRARIAN Appointment Department of Radiology, [facility], in [address] [address] Noelle Reyes P.A.-C., P.A. 730 [place] [phone] 12/24/2023 11:00 AM ELEMENTARY SCHOOL LIBRARIAN Lab Department of Infusion Therapy in [address] [phone] Noelle Reyes P.A.-C., P.A. 701 [place] [address] 12/24/2023 2:15 PM ELEMENTARY SCHOOL LIBRARIAN Office Visit Department of Palliative Care in [address] [phone] Aylin Smith APRN, C.N.P., M.S.N. [address] [place] [phone] 12/24/2023 4:10 PM ELEMENTARY SCHOOL LIBRARIAN Office Visit Department of Oncology in [address] [phone] Ned Alegria M.D. [address] [place] [phone] Scheduled Orders Name Type Priority Associated Diagnoses Orde r Schedule Glucose, POCT Point of Care Testing-Docked Device Routine Routine lab collecti on (next collection) for 1 Occurrences starting 08/20/2023 until 08/20/2023 documented as of this encounter Goals Goal Patient Goal Type Associated Problems Recent Progress Patient-Stated? Author Your pain? Symptom Management 9(11/20/2022 2:41 PM ELEMENTARY SCHOOL LIBRARIAN) No Fee-Girma Bush RRancho., O.C.N. Note: 05/24/2021: Pain algorithm completed. [facility] [...] antrum, body of stomach, incisura are five kbpssmm-iadt-sa d irregular soft tissues, ranging from 0.2-0.7 cm in greatest dimension. The specimens are submitted en toto in cassette A1.Grossed by [facility]. 08/21/2023 1:02 PM CDT DTL Interpretation FINAL DIAGNOSIS A. ??Stomach, antrum, body, incisura, endoscopic biopsy: Antral and fundic mucosa without diagnostic abnormality. No Helicobacter pylori. 08/21/2023 1:02 PM CDT DTL Biopsy (Stomach) 08/20/2023 8:05 AM CDT Miguel A Moctezuma M.D. LAB SURG PATH ORDER [facility] [address] [place] [address], [facility] DTL [address] [place] [address] * Upper GI Endoscopy (08/20/2023 7:44 AM CDT) 08/20/2023 7:44 AM CDT Impressions [facility] - 08/20/2023 8:29 AM CDT Post-op Diagnoses: ? - Normal esophagus. ? - Erythematous mucosa in the antrum. Biopsied. ? - No gross lesions in the entire examined duodenum. ? - No overt source of abdominal pain identified. Narrative [facility] - 08/20/2023 8:29 AM CDT Gonda 2 [...] Ned Alegria M.D. GI PROCEDURE ORDERAB LES [facility] NA documented in this encounter Visit Diagnoses [...] documented as of this encounter Care Teams Sleep Scientist Relationship Specialty Start Date End Date Elsewhere, Pcp PCP - General Internal Medicine 10/14/22 documented as of this encounter
--- OUTSIDE RECORDS SUMMARY | 2023-12-18 18:01 | XMS_ITS | Encounter Summary ---
Author Name Unknown Organization [facility] Address [address] [place] [address] Care Team Providers Care Manufacturer'S Representative Name Role Phone Elsewhere, Pcp Primary Care Provider Unavailabl e Reason for Visit * Outpatient (Routine) - Closed Specialty Diagnoses / Procedures Referred By Contact Referred To Contact Gastroenterology and Hepatology Diagnoses Malignant Neoplasm Of Rectum (HCC) Ned Alegria M.D. [address] [place] [phone] [facility] Referral ID Status Reason Start Date Expiration Date V isits Requested Visits Authorized [id number] Closed Specialty Services Required 07/31/2023 07/30/2024 1 1 Encounter Details Date Type Department Care Team (Latest Contact Info) Description 08/14/2023 3:20 PM CDT Comprehensive Visit Division of Gastroenterology in [place], [place] [address] [place] [phone] Margaret Baptiste M.D., M.S. [address] [place] [phone] Pain Epigastric (Primary Dx); Malignant Neoplasm Of [...] How often do you attend chur or zoroastrian services? Never 02/03/2023 Do you [...] degree (e.g., MA, MS, Ana Lilia, MEd, BILLIARD PARLOR MANAGER, GORDO) 02/15/2022 Sex and Gender Information Value Date Recorded Sex Assigned at Male 04/23/2018 1:23 PM CDT Gender Identity Male 04/23/2018 1:23 PM CDT Sexual Orientation Straight 04/23/2018 1: 23 PM CDT documented as of this encounter Consult Notes * Margaret Baptiste M.D., M.S. - 08/14/2023 3:20 PM CDT SUBJECTIVE REFERRING PROVIDER: Ned Alegria M.D. [address] [place] [phone] CHIEF COMPLAINT / REASON FOR CONSULT Severe [...] I spent a total of 20 minutes [id number]-[id number] with patient. PATIENT EDUCATION: Ready to learn, no apparent learning barriers were identified; learning preferences include listening. Explained diagnosis and treatment plan; patient expressed understanding of the content. documented in this encounter Plan of Treatment Upcoming Encounters Date Type Department Care Team (Late st Contact Info) Description 12/23/2023 8:30 AM DIRECTOR OF ROOMS Clinical Communication Virtual Review in [address] [address] 12/24/2023 10:30 AM DIRECTOR OF ROOMS Appointment Department of Radiology, [facility], in [address] [phone] Noelle Reyes P.A.-C., P.A. 701 [place] [phone] 12/24/2023 11:00 AM DIRECTOR OF ROOMS Lab Department of Infusion Therapy in [address] [phone] Noelle Reyes, P.A.-C., P.A. 701 [place] [phone] 12/24/2023 2:15 PM DIRECTOR OF ROOMS Office Visit Department of Palliative Care in [address] [phone] Aylin Smith APRN, C.N.P., M.S.N. [address] [place] [phone] 12/24/2023 4:10 PM DIRECTOR OF ROOMS Office Visit Department of Oncology in [address] [phone] Ned Alegria M.D. [address] [place] [phone] documented as of this encounter Goals Goal Patient Goal Type Associated Problems Recent Progress Patient-Stated? Author Your pain? Symptom Management 9(11/20/2022 2:41 PM DIRECTOR OF ROOMS) No Fee-Girma Bush R.N., O.C.N. Note: 05/24/2021: [...] documented as of this encounter Care Teams Manufacturer'S Representative Relationship Specialty Start Date End Date Elsewhere, Pcp PCP - General Internal Medicine 10/14/22 documented as of this encounter
--- OUTSIDE RECORDS SUMMARY | 2023-12-18 18:02 | XMS_ITS | Encounter Summary ---
Author Name Unknown Organization [facility] Address [address] [place] [address] Care Team Providers Care Internal Auditor Name Role Phone Elsewhere, Pcp Primary Care Provider Unavailabl e Reason for Visit * Reason Onset Date Comments patient has progression 07/28/2023 Encounter Details Date Type Department Care Team (Latest Contact Info) Description 07/28/2023 Clinical Communication Department of Oncology in [place], [place] [address] [place] [address] Giorgio Fishman M.D. 1999 [place] [phone] patient has progression Social History Tobacco Use [...] often do you attend chur ch or zoroastrianism services? Never 02/03/2023 Do you [...] [facility] of Occupat ional [facility] - Occupational Stress Questionnaire Answer Date Recorded [...] degree (e.g., MA, MS, Ana Lilia, MEd, PLASTICS FACTORY WORKER, GORDO) 02/15/2022 Sex and Gender Information [...] st Contact Info) Description 12/23/2023 8:30 AM GROUNDSKEEPING YARDMAN Clinical Communication Virtual Review in [place], [place] 200 [place] [address] 12/24/2023 10:30 AM GROUNDSKEEPING YARDMAN Appointment Department of Radiology, [facility], in [address] [phone] Noelle Reyes P.A.-C., P.A. 701 [place] [phone] 12/24/2023 11:00 AM GROUNDSKEEPING YARDMAN Lab Department of Infusion Therapy in [address] [phone] Noelle Reyes P.A.-C., P.A. 701 [place] [phone] 12/24/2023 2:15 PM GROUNDSKEEPING YARDMAN Office Visit Department of Palliative Care in [address] [phone] Aylin Smith APRN, C.N.P., M.S.N. [address] [place] [phone] 12/24/2023 4:10 PM GROUNDSKEEPING YARDMAN Office Visit Department of Oncology in [address] [phone] Ned Perez M.D. [address] [place] [phone] documented as of this encounter Goals Goal Patient Goal Type Associated Problems Recent Progress Patient-Stated? Author Your pain? Symptom Management 9(11/20/2022 2:41 PM GROUNDSKEEPING YARDMAN) No Phyllis-Girma Bush R.N., O.C.N. Note: 05/24/2021: [...] Dilaudid as needed per conversation with Dr. Fihsman. He is aware that once he starts [...] as of this encounter Care Teams Internal Auditor Relationship Specialty Start Date End Date Elsewhere, Pcp PCP - General Internal Medicine 10/14/22 documented as of this encounter
--- OUTSIDE RECORDS SUMMARY | 2023-12-18 18:02 | XMS_ITS | Encounter Summary ---
Author Name Unknown Organization [facility] Address [address] [place] [address] Care Team Providers Care J2Ee Architect Name Role Phone Elsewhere, Pcp Primary Care Provider Unavailabl e Encounter Details Date Type Department Care Team (Latest Contact Info) Description 07/30/2023 4:40 PM CDT Ancillary Procedure Department of Radiology in [place], [place] [address] [place] [address] Ned Alegria M.D. [address] [place] [address] Malignant Neoplasm Of Rectum (HCC); Secondary Malignant [...] Answer Date Recorded PHQ-2 Score 0 04/25/2019 [facility] - Occupational [...] degree (e.g., MA, MS, Ana Lilia, MEd, FIRST CALENDER WORKER, GORDO) 02/15/2022 Sex and Gender Information Value Date Recorded Sex Assigned at Male 04/23/2018 1:23 PM CDT Gender Identity Male 04/23/2018 1:23 PM CDT Sexual Orientation Straight 04/23/2018 1: 23 PM CDT documented as of this encounter Plan of Treatment Upcoming Encounters Date Type Department Care Team (Late st Contact Info) Description 12/23/2023 8:30 AM NUCLEAR EQUIPMENT SALES ENGINEER Clinical Communication Virtual Review in [place], [place] [address] [place] [address] 12/24/2023 10:30 AM NUCLEAR EQUIPMENT SALES ENGINEER Appointment Department of Radiology, [facility], in [place], [place] [address] [place] [address] Noelle Reyes P.A.-C., P.A. [address] [place] [address] 12/24/2023 11:00 AM NUCLEAR EQUIPMENT SALES ENGINEER Lab Department of Infusion Therapy in [place], [place] [address] [place] [address] Noelle Reyes P.A.-C., P.A. [address] [place] [phone] 12/24/2023 2:15 PM NUCLEAR EQUIPMENT SALES ENGINEER Office Visit Department of Palliative Care in [place], [place] [address] [place] [phone] Aylin Smith, CINDY, C.N.P., M.S.N. [address] [place] [phone] 12/24/2023 4:10 PM NUCLEAR EQUIPMENT SALES ENGINEER Office Visit Department of Oncology in [place], [place] [address] [place] [phone] Ned Alegria M.D. [address] [place] [phone] documented as of this encounter Goals Goal Patient Goal Type Associated Problems Recent Progress Patient-Stated? Author Your pain? Symptom Management 9(11/20/2022 2:41 PM NUCLEAR EQUIPMENT SALES ENGINEER) No Fee-Girma Bush, RCandidoN., O.C.N. Note: 05/24/2021: Pain algorithm completed. [facility] 05/24/2021: Followup 06/07 via portal per patient [...] documented as of this encounter Care Teams J2Ee Architect Relationship Specialty Start Date End Date Elsewhere, Pcp PCP - General Internal Medicine 10/14/22 documented as of this encounter
--- OUTSIDE RECORDS SUMMARY | 2023-12-18 18:02 | XMS_ITS | Encounter Summary ---
Author Name Unknown Organization [facility] Address [address] [place] [address] Care Team Providers Care Switchboard Receptionist Name Role Phone Elsewhere, Pcp Primary Care Provider Unavailabl e Reason for Referral * Outpatient (Routine) - Closed Specialty Diagnoses / Procedures Referred By Contac t Referred To Contact Diagnoses Sacroiliitis (HCC) Procedures [place] Sacroiliac Joint Injection Left Sean Shen D.O. [address] [place] [phone] [facility] Referral ID Status Reason Start Date Expiration Date Visits Re quested Visits Authorized [id number] Closed 07/25/2023 07/24/2024 1 1 Reason for Visit * Outpatient (Routine) - Closed Specialty Diagnoses / Procedures Referred By Contac t Referred To Contact Diagnoses Sacroiliitis (HCC) Procedures [place] Sacroiliac Joint Injection Left Sean Shen D.O. 200 [place] [address] [facility] Referral ID Status Reason Start Date Expiration Date Visits Re quested Visits Authorized [id number] Closed 07/25/2023 07/24/2024 1 1 Encounter Details Date Type Department Care Team (Latest Contact Info) Description 07/30/2023 7:03 AM CDT - 07/30/2023 12:22 PM CDT Hospital Encounter Division of Pain Medicine in [place], [place] [address] [place] [phone] Sean Shen D.O. 200 [place] [address] Sacroiliitis (HCC) Discharge Disposition: Home or Self [...] How often do you attend chur or evangelical services? Never 02/03/2023 Do you belong to any clubs o r organizations such as restorationism groups, unions, fraternal or athletic groups, or [...] Answer Date Recorded PHQ-2 Score 0 04/25/2019 [facility] of Occupat ional [facility] - Occupational Stress Questionnaire Answer Date Recorded [...] No 02/03/2023 Housing Stability Vital Sign Answer Shday e Recorded In the last 12 months, [...] degree (e.g., MA, MS, Ana Lilia, MEd, BRAKER PASSENGER TRAIN, GORDO) 02/15/2022 Sex and Gender Information Value [...] chest pain. 25 tablet 12 05/28/2018 omega 6-fhl-ykj-fish oil 1,000 mg (120 mg-180 mg) capsule [...] st Contact Info) Description 12/23/2023 8:30 AM ALLERGIST/IMMUNOLOGIST PHYSICIAN Clinical Communication Virtual Review in [place], [place] 200 [place] [address] 12/24/2023 10:30 AM ALLERGIST/IMMUNOLOGIST PHYSICIAN Appointment Department of Radiology, [facility] in [address] [address] Noelle Reyes P.A.-C., P.A. 701 [place] [phone] 12/24/2023 11:00 AM ALLERGIST/IMMUNOLOGIST PHYSICIAN Lab Department of Infusion Therapy in [place], [place] [address] [place] [phone] Noelle Reyes, P.A.-C., P.A. [address] [place] [phone] 12/24/2023 2:15 PM ALLERGIST/IMMUNOLOGIST PHYSICIAN Office Visit Department of Palliative Care in [address] [phone] Aylin Smith APRN, C.N.P., M.S.N. [address] [place] [address] 12/24/2023 4:10 PM ALLERGIST/IMMUNOLOGIST PHYSICIAN Office Visit Department of Oncology in [place], [place] [address] [place] [address] Ned Alegria M.D. [address] [place] [address] documented as of this encounter Goals Goal Patient Goal Type Associated Problems Recent Progress Patient-Stated? Author Your pain? Symptom Management 9(11/20/2022 2:41 PM ALLERGIST/IMMUNOLOGIST PHYSICIAN) Girma Gaspar R.N., O.C.N. Note: 05/24/2021: Pain algorithm completed. [facility] 05/24/2021: Followup 06/07 via portal per patient [...] Palomares M.D. Authorized by: Sean Shen D.O. ?? Care [...] documented as of this encounter Care Teams Switchboard Receptionist Relationship Specialty Start Date End Date Elsewhere, Pcp PCP - General Internal Medicine 10/14/22 documented as of this encounter
--- OUTSIDE RECORDS SUMMARY | 2023-12-18 18:02 | XMS_ITS | Encounter Summary ---
Author Name Unknown Organization [facility] Address [address] [place] [address] Care Team Providers Care Radiation Oncology Nurse Name Role Phone Elsewhere, Pcp Primary [...] with IV Contrast Giorgio Fishman M.D. [address] [place] [address] [facility] Referral ID Status Reason Start Date Expiration Date Visits Re quested Visits Authorized [id number] Closed 05/08/2023 05/07/2024 1 1 Reason for [...] with IV Contrast Giorgio Fishman M.D. [address] [place] [address] [facility] Referral ID Status Reason Start Date Expiration Date Visits Re quested Visits Authorized [id number] Closed 05/08/2023 05/07/2024 1 1 Encounter Details Date Type Department Care Team (Latest Contact Info) Description 07/30/2023 12:23 PM CDT - 07/30/2023 11:59 PM CDT Hospital Encounter Department of Radiology, [facility], in [place], [place] [address] [place] [address] Giorgio Fishman M.D. [address] [place] [phone] Secondary Malignant Neoplasm Of Lung Laterality Unknown [...] often do you attend chur ch or quaker services? Never 02/03/2023 Do you [...] Answer Date Recorded PHQ-2 Score 0 04/25/2019 [facility] of Occupat ional Health - Occupational Stress [...] degree (e.g., MA, MS, Ana Lilia, MEd, DRAFTSPERSON, GORDO) 02/15/2022 Sex and Gender Information Value [...] Body Mass Index 29.13 10/29/2022 1:45 PM ELECTRICAL ENGINEERING TECHNICIAN documented in this encounter Medications at Time [...] chest pain. 25 tablet 12 05/28/2018 omega 3-vrj-lee-fish oil 1,000 mg (120 mg-180 mg) capsule [...] st Contact Info) Description 12/23/2023 8:30 AM ELECTRICAL ENGINEERING TECHNICIAN Clinical Communication Virtual Review in [place], [place] 200 [place] [address] 12/24/2023 10:30 AM ELECTRICAL ENGINEERING TECHNICIAN Appointment Department of Radiology, [facility], in [address] [phone] Noelle Reyes P.A.-C., P.A. [address] [place] [address] 12/24/2023 11:00 AM ELECTRICAL ENGINEERING TECHNICIAN Lab Department of Infusion Therapy in [address] [phone] Noelle Reyes P.A.-C., P.A. [address] [place] [phone] 12/24/2023 2:15 PM ELECTRICAL ENGINEERING TECHNICIAN Office Visit Department of Palliative Care in [address] [phone] Aylin Smith, CINDY, C.N.P., M.S.N. [address] [place] [phone] 12/24/2023 4:10 PM ELECTRICAL ENGINEERING TECHNICIAN Office Visit Department of Oncology in [address] [phone] Ned Alegria M.D. [address] [place] [phone] documented as of this encounter Goals Goal Patient Goal Type Associated Problems Recent Progress Patient-Stated? Author Your pain? Symptom Management 9(11/20/2022 2:41 PM ELECTRICAL ENGINEERING TECHNICIAN) No Phyllis-Girma Bush R.N., O.C.N. Note: 05/24/2021: Pain algorithm completed. [facility] [place]: Followup 06/07 via portal per patient [...] CONTRAST COMPARISON: Outside CT 07/28/2023. 08/05/2022 PET/CT. [facility] 2022. FINDINGS: This examination was performed in conjunction with a CT of the abdomen, which will be reported separately. For description of findings below the diaphragm please see separate report. No definite change between today's CT at an outside CT 07/28/2023. Comments below are compared to prior [facility] CT of 05/06/2023. Many progressive presumed pulmonary [...] CONTRAST COMPARISON: Outside CT 07/28/2023. 08/05/2022 PET/CT. [facility] [id number]. FINDINGS: This examination was performed in conjunction with a CT of the abdomen,which will be reported separately. For description of findings below the diaphragm please seeseparate report. No definite change between today's CT at an outside CT 07/28/2023.Comments below are compared to prior [facility] CT of 05/06/2023. Many progressive presumed pulmonary [...] progression of a pleural or subpleural nodule [id number] x 10 mm adjacent to the post [...] Progressive pleural/chest wall presumed metastasis involving the lioug7by rib. 3. Stable infiltrative process in the [...] CONTRAST COMPARISON: ??Outside abdomen/pelvis CT 07/26/2023 and [place] abdomen/pelvis CT 05/06/2023 . FINDINGS: ??No appreciable [...] CONTRAST COMPARISON: Outside abdomen/pelvis CT 07/26/2023 and [place] abdomen/pelvis CT05/06/2023 . FINDINGS: No appreciable changes [...] documented as of this encounter Care Teams Radiation Oncology Nurse Relationship Specialty Start Date End Date Elsewhere, Pcp PCP - General Internal Medicine 10/14/22 documented as of this encounter
--- OUTSIDE RECORDS SUMMARY | 2023-12-18 18:02 | XMS_ITS | Encounter Summary ---
Author Name Unknown Organization [facility] Address [address] [place] [address] Care Team Providers Care Steel Chipper Name Role Phone Elsewhere, Pcp Primary Care Provider Unavailabl e Reason for Referral * Outpatient (Routine) - Closed Specialty Diagnoses / Procedures Referred By Maddyac t Referred To Contact Diagnoses Pain Chest Wall Procedures FL Thoracic Paravertebral Block Injection Right NV PARAVERTEB BLOCK THOR SNGL NV PARAVERTEB BLOCK THOR 2ND & ADD Sena Shen D.O. [address] [place] [address] [facility] Referral ID Status Reason Start Date Expiration Date Visits Re quested Visits Authorized [id number] Closed 06/20/2023 06/19/2024 1 1 Reason for Visit * Outpatient (Routine) - Closed Specialty Diagnoses / Procedures Referred By Contac t Referred To Contact Diagnoses Pain Chest Wall Procedures FL Thoracic Paravertebral Block Injection Right NV PARAVERTEB BLOCK THOR SNGL NV PARAVERTEB BLOCK THOR 2ND & ADD Sean Shen D.O. [address] [place] [address] [facility] Referral ID Status Reason Start Date Expiration Date Visits Re quested Visits Authorized [id number] Closed 06/20/2023 06/19/2024 1 1 Encounter Details Date Type Department Care Team (Latest Contact Info) Description 07/23/2023 2:24 PM CDT - 07/23/2023 11:59 PM CDT Hospital Encounter Division of Pain Medicine in [place], [place] [address] [place] [address] Sean Shen D.O. [address] [place] [address] Pain Chest Wall Discharge Disposition: Home or [...] often do you attend chur ch or evangelical services? Never 02/03/2023 Do you belong to any clubs o r organizations such as anabaptist groups, unions, fraternal or athletic groups, or [...] (e.g., MA, MS, Ana Lilia, MEd, METAL WIRE TECHNICIAN, GORDO) 02/15/2022 Sex and Gender Information [...] chest pain. 25 tablet 12 05/28/2018 omega 4-jzt-rso-fish oil 1,000 mg (120 mg-180 mg) capsule [...] st Contact Info) Description 12/23/2023 8:30 AM ASP NET DEVELOPER Clinical Communication Virtual Review in [place], [place] 200 [place] [address] 12/24/2023 10:30 AM ASP NET DEVELOPER Appointment Department of Radiology, [facility], in [address] [address] Noelle Reyes P.A.-C., P.A. [address] [place] [phone] 12/24/2023 11:00 AM ASP NET DEVELOPER Lab Department of Infusion Therapy in [address] [address] Noelle Reyes, P.A.-C., P.A. [address] [place] [phone] 12/24/2023 2:15 PM ASP NET DEVELOPER Office Visit Department of Palliative Care in [address] [address] Aylin Smith APRN, C.N.P., M.S.N. [address] [place] [address] 12/24/2023 4:10 PM ASP NET DEVELOPER Office Visit Department of Oncology in [place], [place] [address] [place] [address] Ned Alegria M.D. [address] [place] [address] documented as of this encounter Goals Goal Patient Goal Type Associated Problems Recent Progress Patient-Stated? Author Your pain? Symptom Management 9(11/20/2022 2:41 PM ASP NET DEVELOPER) Girma Gaspar R.N., O.C.N. Note: 05/24/2021: Pain algorithm completed. [facility] 05/24/2021: Followup 06/07 [...] documented as of this encounter Care Teams Steel Chipper Relationship Specialty Start Date End Date Elsewhere, Pcp PCP - General Internal Medicine 10/14/22 documented as of this encounter
--- OUTSIDE RECORDS SUMMARY | 2023-12-18 18:02 | XMS_ITS | Encounter Summary ---
Author Name Unknown Organization [facility] Address [address] [place] [address] Care Team Providers Care Complaint Investigations Officer Name Role Phone Elsewhere, Pcp Primary Care Provider Unavailabl e Encounter Details Date Type Department Care Team (Late st Contact Info) Description 07/30/2023 9:10 AM CDT Lab Department of Infusion Therapy in [place], [place] [address] [place] [address] Giorgio Fishman M.D. [address] [place] [address] Secondary Malignant Neoplasm Lymph Node Multiple Site [...] Answer Date Recorded PHQ-2 Score 0 04/25/2019 [facility] of Occupat ional Health - [...] (e.g., MA, MS, Ana Lilia, MEd, COMMUNITY RELATIONS LIAISON, GORDO) 02/15/2022 Sex and Gender Information Value Date Recorded Sex Assigned at Male 04/23/2018 1:23 PM CDT Gender Identity Male 04/23/2018 1:23 PM CDT Sexual Orientation Straight 04/23/2018 1: 23 PM CDT documented as of this encounter Plan of Treatment Upcoming Encounters Date Type Department Care Team (Late st Contact Info) Description 12/23/2023 8:30 AM ABORIGINAL EDUCATION WORKER COORDINATOR Clinical Communication Virtual Review in [address] [address] 12/24/2023 10:30 AM ABORIGINAL EDUCATION WORKER COORDINATOR Appointment Department of Radiology, [facility], in [place], [place] [address] [place] [phone] Noelle Reyes P.A.-C., P.A. [address] [place] [phone] 12/24/2023 11:00 AM ABORIGINAL EDUCATION WORKER COORDINATOR Lab Department of Infusion Therapy in [place], [place] [address] [place] [phone] Noelle Reyes P.A.-C., P.A. [address] [place] [address] 12/24/2023 2:15 PM ABORIGINAL EDUCATION WORKER COORDINATOR Office Visit Department of Palliative Care in [place], [place] [address] [place], [place] [phone] Aylin Smith, CINDY, C.N.P., M.S.N. [address] [place] [phone] 12/24/2023 4:10 PM ABORIGINAL EDUCATION WORKER COORDINATOR Office Visit Department of Oncology in [place], [place] [address] [place] [phone] Ned Alegria M.D. [address] [place] [phone] documented as of this encounter Goals Goal Patient Goal Type Associated Problems Recent Progress Patient-Stated? Author Your pain? Symptom Management 9(11/20/2022 2:41 PM ABORIGINAL EDUCATION WORKER COORDINATOR) No Fee-Girma Bush, RCandidoN., O.C.N. Note: 05/24/2021: Pain algorithm completed. [facility] [place]/24/2021: Followup 06/07 via portal per patient [...] (Carcinoembryonic Antigen) (07/30/2023 9:33 AM CDT) Pathologist [facility] Carcinoembryonic Ag (CEA), S 10.9(H) ng/mL 07/30/2023 5:41 PM CDT [facility] Comment: ----REFERENCE VALUE---- <=3.0 (Non-smokers) Some smokers may have elevated CEA, usually <5.0. ----ADDITIONAL INFORMATION---- The testing method is an immunoenzymatic assay manufactured by [employer]. and performed on the [employer]. ? Values obtained with different assay methods or kits may be different and cannot be used interchangeably. ? Test results cannot be interpreted as absolute evidence for the presence or absence of malignant disease. Blood (Blood, Venous) 07/30/2023 9:33 AM CDT 07/30/2023 4:42 PM CDT Giorgio Fishman M.D. LAB BLOOD ADD-ON [facility] [address] [place] [address] [facility] [address] [place] [address] * Bilirubin, Direct (07/30/2023 9:33 AM CDT) Pathologist [facility] Bilirubin, Direct, S <0.2 0.0 - 0.3 mg/dL 07/30/2023 10:23 AM CDT DTL Blood (Blood, Venous) 07/30/2023 9:33 AM CDT 07/30/2023 10:01 AM CDT Giorgio Fishman M.D. LAB BLOOD ADD-ON [facility] [address] [place] [address], [facility] D[facility] [address] [place] [address] * Comprehensive Metabolic Panel (07/30/2023 9:33 AM CDT) [facility] Potassium, S 4.0 3.6 - 5.2 mmol/L [...] CDT Giorgio Fishman M.D. LAB BLOOD ADD-ON [facility] [address] [place] [address], [facility] [address] [place] [address] * (ABNORMAL) CBC with Differential, Blood (07/30/2023 [...] CDT Giorgio Fishman M.D. LAB BLOOD ADD-ON [facility] [address] [place] [address], [facility] D[facility] [address] [place] [address] [facility] [address] [place] [address] documented in this encounter Visit Diagnoses Diagnosis [...] documented as of this encounter Care Teams Complaint Investigations Officer Relationship Specialty Start Date End Date Elsewhere, Pcp PCP - General Internal Medicine 10/14/22 documented as of this encounter
--- OUTSIDE RECORDS SUMMARY | 2023-12-18 18:02 | XMS_ITS | Encounter Summary ---
Author Name Unknown Organization [facility] Address [address] [place] [address] Care Team Providers Care Personal Lines Sales Executive Name Role Phone Elsewhere, Pcp Primary Care Provider Unavailabl e Reason for Visit * Reason Comments Med Refill Gabapentin Encounter Details Date Type Department Care Team (Late st Contact Info) Description 07/30/2023 Refill Department of Oncology in [place], [place] [address] [place] [address] Giorgio Fishman M.D. [address] [place] [address] Med Refill ( Gabapentin/) Social History Tobacco [...] Answer Date Recorded PHQ-2 Score 0 04/25/2019 [facility] of Occupat ional Health - Occupational [...] (e.g., MA, MS, Ana Lilia, MEd, INSPECTOR SALVAGE, GORDO) 02/15/2022 Sex and Gender Information Value Date Recorded Sex Assigned at Male 04/23/2018 1:23 PM CDT Gender Identity Male 04/23/2018 1:23 PM CDT Sexual Orientation Straight 04/23/2018 1: 23 PM CDT documented as of this encounter Plan of Treatment Upcoming Encounters Date Type Department Care Team (Late st Contact Info) Description 12/23/2023 8:30 AM DOOR SLINGER Clinical Communication Virtual Review in [place], [place] [address] [place] [address] 12/24/2023 10:30 AM DOOR SLINGER Appointment Department of Radiology, [facility], in [place], [place] [address] [place] [address] Noelle Reyes P.A.-C., P.A. [address] [place] [phone] 12/24/2023 11:00 AM DOOR SLINGER Lab Department of Infusion Therapy in [place], [place] [address] [place] [address] Noelle Reyes P.A.-C., P.A. [address] [place] [address] 12/24/2023 2:15 PM DOOR SLINGER Office Visit Department of Palliative Care in [place], [place] [address] [place] [phone] Aylin Smith APRN CCandidoN.P., M.S.N. [address] [place] [phone] 12/24/2023 4:10 PM DOOR SLINGER Office Visit Department of Oncology in [place], [place] [address] [place] [phone] Ned Alegria M.D. [address] [place] [phone] documented as of this encounter Goals Goal Patient Goal Type Associated Problems Recent Progress Patient-Stated? Author Your pain? Symptom Management 9(11/20/2022 2:41 PM DOOR SLINGER) Girma Gaspar, R.N., O.C.N. Note: 05/24/2021: Pain [...] documented as of this encounter Care Teams Personal Lines Sales Executive Relationship Specialty Start Date End Date Elsewhere, Pcp PCP - General Internal Medicine 10/14/22 documented as of this encounter
--- OUTSIDE RECORDS SUMMARY | 2023-12-18 18:02 | XMS_ITS | Encounter Summary ---
Author Name Unknown Organization [facility] Address [address] [place] [address] Care Team Providers Care Settlement Agent Name Role Phone Elsewhere, Pcp Primary Care Provider Unavailabl e Reason for Referral * Outpatient (Routine) - Closed Specialty Diagnoses / Procedures Referred By Contac t Referred To Contact Oncology Ned Alegria M.D. [address] [place] [address] [facility] Referral ID Status Reason Start Date Expiration Date Visits Re quested Visits Authorized [id number] Closed 07/31/2023 07/30/2026 1 1 Scheduling Instructions PITOT * Outpatient (Routine) - Closed Specialty Diagnoses / Procedures Referred By Contact Referred To Contact Gastroenterology and Hepatology Diagnoses Malignant Neoplasm Of Rectum (HCC) Ned Alegria M.D. [address] [place] [address] [facility] Referral ID Status Reason Start Date Expiration Date V isits Requested Visits Authorized [id number] Closed Specialty Services Required 07/31/2023 07/30/2024 1 1 Scheduling Instructions GIH consult should be scheduled after all testing * Outpatient (Routine) - Closed Specialty Diagnoses / Procedures Referred By Contac t Referred To Contact Diagnoses Malignant Neoplasm Of Rectum (HCC) Procedures EGD (EsophagealGastroDuodenoscopy ) Ned Alegria M.D. 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 [address] [place] [address] [facility] Referral ID Status Reason Start Date Expiration Date Visits Re quested Visits Authorized [id number] Closed 05/08/2023 05/07/2026 1 1 Encounter Details Date Type Department Care Team (Late st Contact Info) Description 07/31/2023 9:50 AM CDT Office Visit Department of Oncology in [place], [place] [address] [place] [phone] Ned Alegria M.D. [address] [place] [phone] Secondary Malignant Neoplasm Of Lung Laterality Unknown [...] How often do you attend chur or jain services? Never 02/03/2023 Do you belong to any clubs o r organizations such as latter-day groups, unions, fraternal or athletic groups, or [...] PHQ-2 Score 0 04/25/2019 [facility] of Occupat ional Health - Occupational Stress [...] degree (e.g., MA, MS, Ana Lilia, MEd, PATIENT LIAISON, GORDO) 02/15/2022 Sex and Gender Information Value Date Recorded Sex Assigned at Male 04/23/2018 1:23 PM CDT Gender Identity Male 04/23/2018 1:23 PM CDT Sexual Orientation Straight 04/23/2018 1: 23 PM CDT documented as of this encounter Progress Notes * Ned Alegria M.D. - 07/31/2023 9:50 AM CDT SUBJECTIVE PRIMARY CARE PHYSICIAN ELSEWHERE, PCP LOCAL ONCOLOGIST No care service desk team lead to display PRIMARY [place]AW ONCOLOGIST Giorgio Fishman M.D. CHIEF COMPLAINT / REASON FOR VISIT Luis Tabares is a 43 y.o. male from [facility] with metastatic rectal cancer. HISTORY OF PRESENT ILLNESS Oncology History He was initially diagnosed in April 2018 with locally advanced rectal cancer that was treated with long course radiation (28 fraction, 64.4 Gy) with capecitabine, followed by laparoscopic proctectomy with colo anal anastomosis ([id number]), which was then followed by adjuvant FLOX [...] 07/14, [place] [address]. On 07/18/2023, treatment was held again due to platelets [address]. At that point he was noted to [...] chest abdomen pelvis with IV contrast at [facility] 1. Numerous progressive pulmonary nodules consistent with [...] st Contact Info) Description 12/23/2023 8:30 AM UTILIZATION REVIEW NURSE Clinical Communication Virtual Review in [place], [place] 200 [place] [address] 12/24/2023 10:30 AM UTILIZATION REVIEW NURSE Appointment Department of Radiology, [facility], in [address] [address] Noelle Reyes P.A.-C., P.A. [address] [place] [phone] 12/24/2023 11:00 AM UTILIZATION REVIEW NURSE Lab Department of Infusion Therapy in [address] [address] Noelle Reyes P.A.-C., P.A. [address] [place] [phone] 12/24/2023 2:15 PM UTILIZATION REVIEW NURSE Office Visit Department of Palliative Care in [address] [phone] Aylin Smith, CINDY, C.N.P., M.S.N. [address] [place] [phone] 12/24/2023 4:10 PM UTILIZATION REVIEW NURSE Office Visit Department of Oncology in [address] [phone] Ned Alegria M.D. [address] [place] [phone] Scheduled Referrals Name Type Priority Associated Diagnoses [...] Your pain? Symptom Management 9(11/20/2022 2:41 PM UTILIZATION REVIEW NURSE) No Phyllis-Girma Bush R.N., O.C.N. Note: 05/24/2021: [...] need for medication may change. [facility] 06/07/2021: Pain rating over the past [...] documented as of this encounter Care Teams Settlement Agent Relationship Specialty Start Date End Date Elsewhere, Pcp PCP - General Internal Medicine 10/14/22 documented as of this encounter
--- OUTSIDE RECORDS SUMMARY | 2023-12-18 18:02 | XMS_ITS | Encounter Summary ---
Author Name Unknown Organization [facility] Address [address] [place] [address] Care Team Providers Care Silver Designer Name Role Phone Elsewhere, Pcp Primary Care Provider Unavailabl e Encounter Details Date Type Department Care Team (Latest Contact Info) Description 07/30/2023 4:35 PM CDT Ancillary Procedure Department of Radiology in [place], [place] [address] [place] [address] Ned Alegria M.D. [address] [place] [address] Malignant Neoplasm Of Rectum (HCC); Secondary Malignant [...] any clubs o r organizations such as restorationist groups, unions, fraternal or athletic groups, or [...] degree (e.g., MA, MS, Ana Lilia, MEd, HEARING AID MECHANIC, GORDO) 02/15/2022 Sex and Gender Information Value Date Recorded Sex Assigned at Male 04/23/2018 1:23 PM CDT Gender Identity Male 04/23/2018 1:23 PM CDT Sexual Orientation Straight 04/23/2018 1: 23 PM CDT documented as of this encounter Plan of Treatment Upcoming Encounters Date Type Department Care Team (Late st Contact Info) Description 12/23/2023 8:30 AM DIRECTOR OF RECREATION THERAPY Clinical Communication Virtual Review in [place], [place] [address] [place] [address] 12/24/2023 10:30 AM DIRECTOR OF RECREATION THERAPY Appointment Department of Radiology, [facility], in [place], [place] [address] [place] [address] Noelle Reyes P.A.-C., P.A. [address] [place] [address] 12/24/2023 11:00 AM DIRECTOR OF RECREATION THERAPY Lab Department of Infusion Therapy in [place], [place] [address] [place] [address] Noelle Reyes P.A.-C., P.A. [address] [place] [address] 12/24/2023 2:15 PM DIRECTOR OF RECREATION THERAPY Office Visit Department of Palliative Care in [place], [place] [address] [place] [phone] Aylin Smith, CINDY, C.N.P., M.S.N. [address] [place] [phone] 12/24/2023 4:10 PM DIRECTOR OF RECREATION THERAPY Office Visit Department of Oncology in [place], [place] [address] [place] [phone] Ned Alegria M.D. [address] [place] [phone] documented as of this encounter Goals Goal Patient Goal Type Associated Problems Recent Progress Patient-Stated? Author Your pain? Symptom Management 9(11/20/2022 2:41 PM DIRECTOR OF RECREATION THERAPY) No Fee-Girma Bush, RCandidoN., O.C.N. Note: 05/24/2021: [...] documented as of this encounter Care Teams Silver Designer Relationship Specialty Start Date End Date Elsewhere, Pcp PCP - General Internal Medicine 10/14/22 documented as of this encounter
--- OUTSIDE RECORDS SUMMARY | 2023-12-18 18:03 | XMS_ITS | Encounter Summary ---
Author Name Unknown Organization [facility] Address [address] [place] [address] Care Team Providers Care Junior Financial Analyst Name Role Phone Elsewhere, Pcp Primary Care Provider Unavailabl e Reason for Visit * Reason Onset Date Comments Pre-visit Intake 06/17/2023 Encounter Details Date Type Department Care Team (Latest Contact Info) Description 06/17/2023 9:30 AM CDT Clinical Communication Virtual Review in [place], [place] 200 [place], [place] [phone] Pre-visit Intake Social History Tobacco Use Types [...] Answer Date Recorded PHQ-2 Score 0 04/25/2019 [facility] of Occupat ional [facility] - Occupational Stress [...] degree (e.g., MA, MS, Ana Lilia, MEd, ASSISTANT DEAN, GORDO) 02/15/2022 Sex and Gender Information Value Date Recorded Sex Assigned at Male 04/23/2018 1:23 PM CDT Gender Identity Male 04/23/2018 1:23 PM CDT Sexual Orientation Straight 04/23/2018 1: 23 PM CDT documented as of this encounter Plan of Treatment Upcoming Encounters Date Type Department Care Team (Late st Contact Info) Description 12/23/2023 8:30 AM ERISA ATTORNEY Clinical Communication Virtual Review in [place], [place] [address] [place] [address] 12/24/2023 10:30 AM ERISA ATTORNEY Appointment Department of Radiology, [facility], in [place], [place] [address] [place] [address] Noelle Reyes P.A.-C., P.A. [address] [place] [phone] 12/24/2023 11:00 AM ERISA ATTORNEY Lab Department of Infusion Therapy in [place], [place] [address] [place] [phone] Noelle Reyes P.A.-C., P.A. [address] [place] [phone] 12/24/2023 2:15 PM ERISA ATTORNEY Office Visit Department of Palliative Care in [place], [place] [address] [place] [phone] Aylin Smith, CINDY, C.N.P., M.S.N. [address] [place] [phone] 12/24/2023 4:10 PM ERISA ATTORNEY Office Visit Department of Oncology in [place], [place] [address] [place] [phone] Ned Alegria M.D. [address] [place] [phone] documented as of this encounter Goals Goal Patient Goal Type Associated Problems Recent Progress Patient-Stated? Author Your pain? Symptom Management 9(11/20/2022 2:41 PM ERISA ATTORNEY) No Fee-Girma Bush, R.N., O.C.N. Note: 05/24/2021: Pain algorithm completed. [facility] 05/24/2021: Followup 06/07 via [...] documented as of this encounter Care Teams Junior Financial Analyst Relationship Specialty Start Date End Date Elsewhere, Pcp PCP - General Internal Medicine 10/14/22 documented as of this encounter
--- OUTSIDE RECORDS SUMMARY | 2023-12-18 18:03 | XMS_ITS | Encounter Summary ---
Author Name Unknown Organization [facility] Address [address] [place] [address] Care Team Providers Care Customer Care Specialist Name Role Phone Elsewhere, Pcp Primary Care Provider Unavailabl e Reason for Visit * Reason Comments Med Refill Encounter Details Date Type Department Care Team (Late st Contact Info) Description 04/22/2023 Refill Department of Oncology in [place], [place] [address] [place] [address] Giorgio Fishman M.D. [address] [place] [address] Med Refill Social History Tobacco Use Types [...] Answer Date Recorded PHQ-2 Score 0 04/25/2019 [facility] of Occupat ional Health - [...] degree (e.g., MA, MS, Ana Lilia, MEd, PRODUCTION LINE WORKER, GORDO) 02/15/2022 Sex and Gender Information Value Date Recorded Sex Assigned at Male 04/23/2018 1:23 PM CDT Gender Identity Male 04/23/2018 1:23 PM CDT Sexual Orientation Straight 04/23/2018 1: 23 PM CDT documented as of this encounter Plan of Treatment Upcoming Encounters Date Type Department Care Team (Late st Contact Info) Description 12/23/2023 8:30 AM PAPER PROCESSING MACHINE HELPER Clinical Communication Virtual Review in [place], [place] [address] [place] [address] 12/24/2023 10:30 AM PAPER PROCESSING MACHINE HELPER Appointment Department of Radiology, [facility], in [place], [place] [address] [place] [address] Noelle Reyes P.A.-C., P.A. [address] [place] [phone] 12/24/2023 11:00 AM PAPER PROCESSING MACHINE HELPER Lab Department of Infusion Therapy in [place], [place] [address] [place] [phone] Noelle Reyes P.A.-C., P.A. [address] [place] [phone] 12/24/2023 2:15 PM PAPER PROCESSING MACHINE HELPER Office Visit Department of Palliative Care in [address] [phone] Aylin Smith APRN, C.N.P., M.S.N. [address] [place] [phone] 12/24/2023 4:10 PM PAPER PROCESSING MACHINE HELPER Office Visit Department of Oncology in [address] [phone] Ned Alegria M.D. [address] [place] [phone] documented as of this encounter Goals Goal Patient Goal Type Associated Problems Recent Progress Patient-Stated? Author Your pain? Symptom Management 9(11/20/2022 2:41 PM PAPER PROCESSING MACHINE HELPER) No Phyllis-Girma Bush, RCandidoN., O.C.N. Note: 05/24/2021: Pain algorithm completed. [facility] 05/24/2021: Followup 06/07 via portal [...] documented as of this encounter Care Teams Customer Care Specialist Relationship Specialty Start Date End Date Elsewhere, Pcp PCP - General Internal Medicine 10/14/22 documented as of this encounter
--- OUTSIDE RECORDS SUMMARY | 2023-12-18 18:03 | XMS_ITS | Encounter Summary ---
Author Name Unknown Organization [facility] Address [address] [place] [address] Care Team Providers Care Special Education Case Manager Name Role Phone Elsewhere, Pcp Primary Care Provider Unavailabl e Reason for Referral * MRI/CAT/PET Scan (Routine) - Closed Specialty Diagnoses / Procedures Referred By Halima owen Referred To Contact Radiology Diagnoses Pain Hip Left Procedures MR Hip Left without and with IV Contrast Amy Neff M.D. [address] [place] [address] [facility] Referral ID Status Reason Start Date Expiration Date Visits Re quested Visits Authorized [id number] Closed 04/15/2023 04/14/2024 1 1 Reason for Visit * MRI/CAT/PET Scan (Routine) - Closed Specialty Diagnoses / Procedures Referred By Halima owen Referred To Contact Radiology Diagnoses Pain Hip Left Procedures MR Hip Left without and with IV Contrast Amy Neff M.D. [address] [place] [address] [facility] Referral ID Status Reason Start Date Expiration Date Visits Re quested Visits Authorized [id number] Closed 04/15/2023 04/14/2024 1 1 Encounter Details Date Type Department Care Team (Latest Contact Info) Description 05/07/2023 7:17 AM CDT - 05/07/2023 11:59 PM CDT Hospital Encounter Department of Radiology, [facility], in [place], [place] [address] [place] [address] Amy Neff M.D. [address] [place] [phone] Pain Hip Left Discharge Disposition: Home or [...] any clubs o r organizations such as sikh groups, unions, fraternal or athletic groups, or [...] Recorded PHQ-2 Score 0 04/25/2019 [facility] of Occupat ional Health - Occupational [...] degree (e.g., MA, MS, Ana Lilia, MEd, FLEECER, GORDO) 02/15/2022 Sex and Gender Information Value [...] chest pain. 25 tablet 12 05/28/2018 omega 0-aft-zvy-fish oil 1,000 mg (120 mg-180 mg) capsule [...] st Contact Info) Description 12/23/2023 8:30 AM QUENCHER OPERATOR Clinical Communication Virtual Review in [place], [place] 200 [place] [address] 12/24/2023 10:30 AM QUENCHER OPERATOR Appointment Department of Radiology, [facility], in [place], [place] [address] [place] [phone] Noelle Reyes P.A.-C., P.A. [address] [place] [phone] 12/24/2023 11:00 AM QUENCHER OPERATOR Lab Department of Infusion Therapy in [place], [place] [address] [place] [phone] Noelle Reyes P.A.-C., P.A. [address] [place] [phone] 12/24/2023 2:15 PM QUENCHER OPERATOR Office Visit Department of Palliative Care in [place], [place] [address] [place] [phone] Aylin Smith, CINDY, C.N.P., M.S.N. [address] [place] [phone] 12/24/2023 4:10 PM QUENCHER OPERATOR Office Visit Department of Oncology in [place], [place] [address] [place] [phone] Ned Alegria M.D. [address] [place] [phone] documented as of this encounter Goals Goal Patient Goal Type Associated Problems Recent Progress Patient-Stated? Author Your pain? Symptom Management 9(11/20/2022 2:41 PM QUENCHER OPERATOR) No Phyllis-Girma Bush, RCandidoN., O.C.N. Note: 05/24/2021: Pain algorithm completed. [facility] 05/24/2021: Followup 06/07 via portal [...] as of this encounter Care Teams Special Education Case Manager Relationship Specialty Start Date End Date Elsewhere, Pcp PCP - General Internal Medicine 10/14/22 documented as of this encounter
--- OUTSIDE RECORDS SUMMARY | 2023-12-18 18:03 | XMS_ITS | Encounter Summary ---
Author Name Unknown Organization [facility] Address [address] [place] [address] Care Team Providers Care Cat Scan Tech Name Role Phone Elsewhere, Pcp Primary Care Provider Unavailabl e Encounter Details Date Type Department Care Team (Late st Contact Info) Description 06/20/2023 Orders Only Department of Oncology in [place], [place] [address] [place] [phone] Leopoldo Renteria P.A.-C., M.S. [address] [place] [address] Social History Tobacco Use Types Packs/Day Years [...] any clubs o r organizations such as yazidism groups, unions, fraternal or athletic groups, or [...] Answer Date Recorded PHQ-2 Score 0 04/25/2019 [facility] of Occupat ional Health - Occupational [...] received? Master's degree (e.g., MA, MS, Ana iLlia, MEd, MEDICAL RECORDS RECEPTIONIST, GORDO) 02/15/2022 Sex and Gender Information Value Date Recorded Sex Assigned at Male 04/23/2018 1:23 PM CDT Gender Identity Male 04/23/2018 1:23 PM CDT Sexual Orientation Straight 04/23/2018 1: 23 PM CDT documented as of this encounter Plan of Treatment Upcoming Encounters Date Type Department Care Team (Late st Contact Info) Description 12/23/2023 8:30 AM BOTANY PROFESSOR Clinical Communication Virtual Review in [place], [place] [address] [place] [address] 12/24/2023 10:30 AM BOTANY PROFESSOR Appointment Department of Radiology, [facility], in [place], [place] [address] [place] [address] Noelle Reyes P.A.-C., P.A. [address] [place] [phone] 12/24/2023 11:00 AM BOTANY PROFESSOR Lab Department of Infusion Therapy in [place], [place] [address] [place] [phone] Noelle Reyes P.A.-C., P.A. [address] [place] [phone] 12/24/2023 2:15 PM BOTANY PROFESSOR Office Visit Department of Palliative Care in [place], [place] [address] [place] [phone] Aylin Smith APRN, C.N.P., M.S.N. [address] [place] [phone] 12/24/2023 4:10 PM BOTANY PROFESSOR Office Visit Department of Oncology in [place], [place] [address] [place] [phone] Ned Alegria M.D. [address] [place] [phone] documented as of this encounter Goals Goal Patient Goal Type Associated Problems Recent Progress Patient-Stated? Author Your pain? Symptom Management 9(11/20/2022 2:41 PM BOTANY PROFESSOR) No Phyllis-Girma Bush, RCandidoN., O.C.N. Note: 05/24/2021: Pain algorithm completed. [facility] 05/24/2021: Followup 06/07 via portal per patient [...] documented as of this encounter Care Teams Cat Scan Tech Relationship Specialty Start Date End Date Elsewhere, Pcp PCP - General Internal Medicine 10/14/22 documented as of this encounter
--- OUTSIDE RECORDS SUMMARY | 2023-12-18 18:03 | XMS_ITS | Encounter Summary ---
Author Name Unknown Organization [facility] Address [address] [place] [address] Care Team Providers Care Blade Sharpener Name Role Phone Elsewhere, Pcp Primary Care Provider Unavailabl e Encounter Details Date Type Department Care Team (Latest Contact Info) Description 05/05/2023 12:00 PM CDT Clinical Communication Virtual Review in [place], [place] [address] [place], [place] [phone] Social History Tobacco Use Types Packs/Day Years [...] Answer Date Recorded PHQ-2 Score 0 04/25/2019 [facility] of Occupat ional [...] degree (e.g., MA, MS, Ana Lilia, MEd, OUTSIDE ENERGY SALES REPRESENTATIVES, GORDO) 02/15/2022 Sex and Gender Information Value Date Recorded Sex Assigned at Male 04/23/2018 1:23 PM CDT Gender Identity Male 04/23/2018 1:23 PM CDT Sexual Orientation Straight 04/23/2018 1: 23 PM CDT documented as of this encounter Plan of Treatment Upcoming Encounters Date Type Department Care Team (Late st Contact Info) Description 12/23/2023 8:30 AM DETACHER Clinical Communication Virtual Review in [place], [place] [address] [place] [address] 12/24/2023 10:30 AM DETACHER Appointment Department of Radiology, [facility], in [place], [place] [address] [place] [phone] Noelle Reyes P.A.-C., P.A. [address] [place] [phone] 12/24/2023 11:00 AM DETACHER Lab Department of Infusion Therapy in [place], [place] [address] [place] [phone] Noelle Reyes P.A.-C., P.A. [address] [facility] [place] [address] 12/24/2023 2:15 PM DETACHER Office Visit Department of Palliative Care in [place], [place] [address] [place] [phone] Aylin Smith, CINDY, C.N.P., M.S.N. [address] [place] [phone] 12/24/2023 4:10 PM DETACHER Office Visit Department of Oncology in [place], [place] [address] [place] [phone] Ned Alegria M.D. [address] [place] [phone] documented as of this encounter Goals Goal Patient Goal Type Associated Problems Recent Progress Patient-Stated? Author Your pain? Symptom Management 9(11/20/2022 2:41 PM DETACHER) Raisa Ferguson-Girma Bush, RCandidoN., O.C.N. Note: 05/24/2021: [...] documented as of this encounter Care Teams Blade Sharpener Relationship Specialty Start Date End Date Elsewhere, Pcp PCP - General Internal Medicine 10/14/22 documented as of this encounter
--- OUTSIDE RECORDS SUMMARY | 2023-12-18 18:03 | XMS_ITS | Encounter Summary ---
Author Name Unknown Organization [facility] Address [address] [place] [address] Care Team Providers Care Irrigation Teacher Name Role Phone Elsewhere, Pcp Primary Care Provider Unavailabl e Reason for Referral * Outpatient (Routine) - Closed Specialty Diagnoses / Procedures Referred By Contac t Referred To Contact Diagnoses Sacroiliitis (HCC) Procedures FL Sacroiliac Joint Injection Left Alana Shen D.O. [address] [place] [address] [facility] Referral ID Status Reason Start Date Expiration Date Visits Re quested Visits Authorized [id number] Closed 07/25/2023 07/24/2024 1 1 * Outpatient (Routine) - Closed Specialty Diagnoses / Procedures Referred By Contac t Referred To Contact Diagnoses Pain Chest Wall Procedures FL Thoracic Paravertebral Block Injection Right DC PARAVERTEB BLOCK THOR SNGL DC PARAVERTEB BLOCK THOR 2ND & ADD Alana Shen D.O. [address] [place] [address] [facility] Referral ID Status Reason Start Date Expiration Date Visits Re quested Visits Authorized [id number] Closed 06/20/2023 06/19/2024 1 1 * MRI/CAT/PET Scan (Routine) - Closed Specialty Diagnoses / Procedures Referred By Contac t Referred To Contact Radiology Diagnoses Pain Low Back Unspecified Procedures MR Lumbar Spine without IV Contrast Alana Shen D.O. [address] [place] [address] [facility] Referral ID Status Reason Start Date Expiration Date Visits Re quested Visits Authorized [id number] Closed 06/20/2023 06/19/2024 1 1 Reason for Visit * Outpatient (Routine) - Closed Specialty Diagnoses / Procedures Referred By Contac t Referred To Contact Pain Medicine Diagnoses Ella Gonzalez M.D. [address] [place] [address] [facility] Referral ID Status Reason Start Date Expiration Date Visits Re quested Visits Authorized [id number] Closed 04/01/2023 03/31/2026 1 1 Encounter Details Date Type Department Care Team (Late st Contact Info) Description 06/20/2023 11:00 AM CDT Office Visit Division of Pain Medicine in [place], [place] [address] [place] [phone] Alana Shen D.O. [address] [place] [phone] Pain Low Back Unspecified (Primary Dx); Pain [...] PHQ-2 Score 0 04/25/2019 [facility] of Occupat ional Health - Occupational [...] degree (e.g., MA, MS, Ana Lilia, MEd, ELECTROMEDICAL SERVICE ENGINEER, GORDO) 02/15/2022 Sex and Gender Information [...] ablation. Patient was originally seen in the [facility] on 03/07/2022 with complaint of [...] his daily life. 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 [address] [place] [phone] 12/24/2023 11:00 AM OFFSHORE WIND TURBINE TECHNICIAN Lab Department of Infusion Therapy in [address] [phone] Noelle Reyes, P.A.-C., P.A. [address] [place] [phone] 12/24/2023 2:15 PM OFFSHORE WIND TURBINE TECHNICIAN Office Visit Department of Palliative Care in [address] [phone] Aylin Smith, AUTOMATIC BOW MAKER MACHINE TENDER, C.N.P., M.S.N. [address] [place] [phone] 12/24/2023 4:10 PM OFFSHORE WIND TURBINE TECHNICIAN Office Visit Department of Oncology in [place], [place] [address] [place] [phone] Ned Alegria M.D. [address] [place] [address] documented as of this encounter Goals Goal Patient Goal Type Associated Problems Recent Progress Patient-Stated? Author Your pain? Symptom Management 9(11/20/2022 2:41 PM OFFSHORE WIND TURBINE TECHNICIAN) No Fee-Girma Bush RCandidoN., O.C.N. Note: 05/24/2021: [...] that his need for medication may change. [facility] 06[facility]07[facility]2021: Pain rating over the past [...] Region Laterality Modality Lumbar Spine, Neuroradiology [facility], Neuroradiology [facility], Neuroradiology [facility] N/A Magnetic Resonance 07/23/2023 10:0 8 AM [...] the prior CT scan, there are 5 jzw-nro-yhwbxag lumbar-type vertebral bodies present with L5-S1 designated [...] the prior CT scan, there are 5 gbs-aob-nvbepmmlyzipv-type vertebral bodies present with L5-S1 designated via [...] in the lumbar spine most prominent at [id number] mild spinal canal stenosis and moderate bilateral [...] documented as of this encounter Care Teams Irrigation Teacher Relationship Specialty Start Date End Date Elsewhere, Pcp PCP - General Internal Medicine 10/14/22 documented as of this encounter
--- OUTSIDE RECORDS SUMMARY | 2023-12-18 18:03 | XMS_ITS | Encounter Summary ---
Author Name Unknown Organization [facility] Address [address] [place] [address] Care Team Providers Care Software Asset Manager Name Role Phone Elsewhere, Pcp Primary [...] without IV Contrast Giorgio Fishman M.D. 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 [address] [place] [address] [facility] Referral ID Status Reason Start Date Expiration Date Visits Re quested Visits Authorized [id number] Closed 02/25/2023 02/25/2024 1 1 Reason for [...] with IV Contrast Giorgio Fishman M.D. [address] [place] [address] [facility] Referral ID Status Reason Start Date Expiration Date Visits Re quested Visits Authorized [id number] Closed 02/25/2023 02/25/2024 1 1 Encounter Details Date Type Department Care Team (Latest Contact Info) Description 05/06/2023 1:35 PM CDT - 05/06/2023 11:59 PM CDT Hospital Encounter Department of Radiology, [facility], in [place], [place] [address] [place] [address] Giorgio Fishman M.D. [address] [place] [phone] Secondary Malignant Neoplasm Of Lung Laterality Unknown [...] degree (e.g., MA, MS, Ana Lilia, MEd, HEALTHCARE REPRESENTATIVE, GORDO) 02/15/2022 Sex and Gender Information [...] chest pain. 25 tablet 12 05/28/2018 omega 4-rdw-jop-fish oil 1,000 mg (120 mg-180 mg) capsule [...] st Contact Info) Description 12/23/2023 8:30 AM COSTUME DRAPER Clinical Communication Virtual Review in [place], [place] 200 [place] [address] 12/24/2023 10:30 AM COSTUME DRAPER Appointment Department of Radiology, [facility], in [address] [phone] Noelle Reyes P.A.-C., P.A. [address] [place] [phone] 12/24/2023 11:00 AM COSTUME DRAPER Lab Department of Infusion Therapy in [address] [address] Noelle Reyes P.Shantal.-C., P.A. [address] [place] [phone] 12/24/2023 2:15 PM COSTUME DRAPER Office Visit Department of Palliative Care in [address] [phone] Aylin Smith APRN, C.N.P., M.S.N. [address] [place] [phone] 12/24/2023 4:10 PM COSTUME DRAPER Office Visit Department of Oncology in [address] [phone] Ned Alegria M.D. [address] [place] [phone] Scheduled Orders Name Type Priority Associated Diagnoses Orde r Schedule Creatinine, POCT Point of Care Testing-Docked Device Routine Routine lab collecti on (next collection) for 1 Occurrences starting 05/06/2023 until 05/06/2023 documented as of this encounter Goals Goal Patient Goal Type Associated Problems Recent Progress Patient-Stated? Author Your pain? Symptom Management 9(11/20/2022 2:41 PM COSTUME DRAPER) No Fee-Girma Bush R.N., O.C.N. Note: 05/24/2021: Pain algorithm completed. [facility] 05/24/2021: Followup 06/07 via portal per patient [...] unchanged. Authorizing Provider Result Pete Fishman M.D. [facility] CT PROCEDURES * CT Abdomen Pelvis with [...] POCT ORDERABLES - DEVICE Performing Organization Address [facility] Co de Phone Number [facility] PERFORM[facility] [address] [place], [place] [phone] [place] [address] PCDT [facility] POC 200 [place] [address] * Creatinine, POCT (05/06/2023 2:01 PM CDT) Pathologist [facility] Estimated GFR (eGFR), POCT >90 >=60 mL/min/BSA 05/06/2023 2:04 PM CDT PCMO Comment: Estimated GFR calculated using the 2020 CKD_EPI creatinine equation. Blood 05/06/2023 2:01 PM CDT 05/06/2023 2:04 PM CDT Unknown Provider LAB POCT ORDERABLES - DEVICE Performing Organization Address [facility] Co de Phone Number POC [facility] [address] [place] [address], [facility] PCMO [facility] POC [address] [place] [address] documented in this encounter Visit Diagnoses Diagnosis [...] documented as of this encounter Care Teams Software Asset Manager Relationship Specialty Start Date End Date Elsewhere, Pcp PCP - General Internal Medicine 10/14/22 documented as of this encounter
--- OUTSIDE RECORDS SUMMARY | 2023-12-18 18:03 | XMS_ITS | Encounter Summary ---
Author Name Unknown Organization [facility] Address [address] [place] [address] Care Team Providers Care Hoop Driving Machine Operator Helper Name Role Phone Elsewhere, Pcp Primary Care Provider Unavailabl e Reason for Referral * MRI/CAT/PET Scan (Routine) - Closed Specialty Diagnoses / Procedures Referred By Contac t Referred To Contact Radiology Diagnoses Pain Low Back Unspecified Procedures MR Lumbar Spine without IV Contrast Sean Shen D.O. [address] [place] [phone] [facility] Referral ID Status Reason Start Date Expiration Date Visits Re quested Visits Authorized [id number] Closed 06/20/2023 06/19/2024 1 1 Reason for Visit * MRI/CAT/PET Scan (Routine) - Closed Specialty Diagnoses / Procedures Referred By Contac t Referred To Contact Radiology Diagnoses Pain Low Back Unspecified Procedures MR Lumbar Spine without IV Contrast Sean Shen D.O. [address] [place] [phone] [facility] Referral ID Status Reason Start Date Expiration Date Visits Re quested Visits Authorized [id number] Closed 06/20/2023 06/19/2024 1 1 Encounter Details Date Type Department Care Team (Latest Contact Info) Description 07/23/2023 8:23 AM CDT - 07/23/2023 2:23 PM CDT Hospital Encounter Department of Radiology, [facility] in [place], [place] [address] [place] [phone] Sean Shen D.O. [address] [place] [phone] Pain Low Back Unspecified Discharge Disposition: Home [...] week 02/03/2023 How often do you attend [facility] or tenriism services? Never 02/03/2023 Do you [...] degree (e.g., MA, MS, Ana Lilia, MEd, WEB DESIGN INSTRUCTOR, GORDO) 02/15/2022 Sex and Gender Information [...] chest pain. 25 tablet 12 05/28/2018 omega 9-ikc-kib-fish oil 1,000 mg (120 mg-180 mg) capsule [...] st Contact Info) Description 12/23/2023 8:30 AM CONTINUOUS VULCANIZING MACHINE OPERATOR Clinical Communication Virtual Review in [address] [address] 12/24/2023 10:30 AM CONTINUOUS VULCANIZING MACHINE OPERATOR Appointment Department of Radiology, [facility], in [address] [phone] Noelle Reyes P.A.-C., P.A. [address] [place] [address] 12/24/2023 11:00 AM CONTINUOUS VULCANIZING MACHINE OPERATOR Lab Department of Infusion Therapy in [address] [phone] Noelle Reyes P.A.-C., P.A. [address] [place] [phone] 12/24/2023 2:15 PM CONTINUOUS VULCANIZING MACHINE OPERATOR Office Visit Department of Palliative Care in [place], [place] [address] [place] [phone] Aylin Smith, CINDY, C.N.P., M.S.N. [address] [place] [phone] 12/24/2023 4:10 PM CONTINUOUS VULCANIZING MACHINE OPERATOR Office Visit Department of Oncology in [place], [place] [address] [place] [phone] Ned Alegria M.D. [address] [place] [phone] documented as of this encounter Goals Goal Patient Goal Type Associated Problems Recent Progress Patient-Stated? Author Your pain? Symptom Management 9(11/20/2022 2:41 PM CONTINUOUS VULCANIZING MACHINE OPERATOR) No Fee-Girma Bush, RCandidoN., O.C.N. Note: 05/24/2021: Pain algorithm completed. [place] [...] Modality Lumbar Spine, Neuroradiology RST [facility], Neuroradiology ARZ [facility], Neuroradiology FLA [facility] N/A Magnetic Resonance 07/23/2023 10:0 8 [...] the prior CT scan, there are 5 ode-xgq-ayuhekw lumbar-type vertebral bodies present with L5-S1 designated [...] the prior CT scan, there are 5 zwc-cdn-jrqrldenhwjxe-type vertebral bodies present with L5-S1 designated via [...] in the lumbar spine most prominent at L3-W6eizpm mild spinal canal stenosis and moderate bilateral neural foraminal stenosis are present. Sean SOMMERS MRI PROCEDURES documented in this encounter Visit Diagnoses Diagnosis Pain Low Back Unspecified documented in this encounter Additional Health Concerns Assessment Noted Time PHQ-9 Depression Total Score: 7 05/26/20 18 10:22 PM CDT documented as of this encounter Care Teams Hoop Driving Machine Operator Helper Relationship Specialty Start Date End Date Elsewhere, Pcp PCP - General Internal Medicine 10/14/22 documented as of this encounter
--- OUTSIDE RECORDS SUMMARY | 2023-12-18 18:03 | XMS_ITS | Encounter Summary ---
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 [address] [place] [address] [facility] Referral ID Status Reason Start Date Expiration Date Visits Re quested Visits Authorized [id number] Closed 02/25/2023 02/24/2026 1 1 Encounter Details Date Type Department Care Team (Late st Contact Info) Description 05/07/2023 2:40 PM CDT Telemedicine Department of Oncology in [place], [place] [address] [place] [address] Giorgio Fishman M.D. [address] [place] [address] Malignant Neoplasm Of Rectum (HCC); [...] any clubs o r organizations such as jainism groups, unions, fraternal or athletic groups, or [...] Answer Date Recorded PHQ-2 Score 0 04/25/2019 [facility] [place] of Occupat ional Health - Occupational Stress [...] degree (e.g., MA, MS, Ana Lilia, MEd, COMPUTER RECYCLING WORKER, GORDO) 02/15/2022 Sex and Gender Information Value Date Recorded Sex Assigned at Male 04/23/2018 1:23 PM CDT Gender Identity Male 04/23/2018 1:23 PM CDT Sexual Orientation Straight 04/23/2018 1: 23 PM CDT documented as of this encounter Progress Notes * Giorgio Fishman M.D. - 05/07/2023 2:40 PM CDT SUBJECTIVE PRIMARY CARE PHYSICIAN ELSEWHERE, PCP LOCAL ONCOLOGIST No care store team member to display PRIMARY WISHON ONCOLOGIST Giorgio Fishman M.D. CHIEF COMPLAINT / [...] was positive for invasive adenocarcinoma. Came to [place] and seen by Gastroenterology. Underwent staging MRI [...] Right posterolateral thoracotomy and mediastinal lymphadenectomy. SURGEON(S) PRODUCTION MATERIAL HANDLER: Jazmine Bowden M.D. ASSISTING RESIDENT: Bandar Owusu [...] for metastasis 06/11/2021 - 06/13/2021 Radiation Therapy 3016-8349 cGy in 3 fractions to right posterior [...] for metastasis 06/11/2021 - 06/13/2021 Radiation Therapy 7978-2518 cGy in 3 fractions to right posterior [...] audio/video technology by Giorgio Fishman M.D. in [facility] to the patient in Patient's Home in [facility] documented in this encounter Plan of Treatment Upcoming Encounters Date Type Department Care Team (Late st Contact Info) Description 12/23/2023 8:30 AM VICE PRINCIPAL Clinical Communication Virtual Review in [place], [place] 200 [place] [address] 12/24/2023 10:30 AM VICE PRINCIPAL Appointment Department of Radiology, [facility], in [place], [place] [address] [place] [phone] Noelle Reyes P.A.-C., P.A. 701 [place] [phone] 12/24/2023 11:00 AM VICE PRINCIPAL Lab Department of Infusion Therapy in [address] [phone] Noelle Reyes P.A.-C., P.A. [address] [place] [phone] 12/24/2023 2:15 PM VICE PRINCIPAL Office Visit Department of Palliative Care in [address] [phone] Aylin Smith APRN, C.N.P., M.S.N. [address] [place] [phone] 12/24/2023 4:10 PM VICE PRINCIPAL Office Visit Department of Oncology in [address] [phone] Ned Alegria M.D. 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 Author Your pain? Symptom Management 9(11/20/2022 2:41 PM VICE PRINCIPAL) Raisa Ferguson-Girma Bush R.N., O.C.N. Note: 05/24/2021: Pain algorithm completed. [facility] [...] CONTRAST COMPARISON: ??Outside abdomen/pelvis CT 07/26/2023 and [place] abdomen/pelvis CT 05/06/2023 . FINDINGS: ??No appreciable [...] CONTRAST COMPARISON: Outside abdomen/pelvis CT 07/26/2023 and [place] abdomen/pelvis CT05/06/2023 . FINDINGS: No appreciable changes [...] S 10.9(H) ng/mL 07/30/2023 5:41 PM CDT [facility] Comment: ----REFERENCE VALUE---- <=3.0 (Non-smokers) Some smokers may have elevated CEA, usually <5.0. ----ADDITIONAL INFORMATION---- The testing method is an immunoenzymatic assay manufactured by [employer]. and performed on the [employer] DxI 800. ? Values obtained with different assay methods or kits may be different and cannot be used interchangeably. ? Test results cannot be interpreted as absolute evidence for the presence or absence of malignant disease. Blood (Blood, Venous) 07/30/2023 9:33 AM CDT 07/30/2023 4:42 PM CDT Giorgio Fishman M.D. LAB BLOOD ADD-ON Performing Organization Address [facility]/ZIP Co de Phone Number [facility] [address] [place] [address] [facility] [address] [place] [address] * Bilirubin, Direct (07/30/2023 9:33 AM CDT) Bilirubin, Direct, S <0.2 0.0 - 0.3 mg/dL 07/30/2023 10:23 AM CDT DTL Blood (Blood, Venous) 07/30/2023 9:33 AM CDT 07/30/2023 10:01 AM CDT Giorgio Fishman M.D. LAB BLOOD ADD-ON Performing Organization Address City/[facility]/ZIP Co de Phone Number [facility] [address] [place] [address], [facility] [address] [place] [address] * Comprehensive Metabolic Panel (07/30/2023 9:33 AM [...] CDT Giorgio Fishman M.D. LAB BLOOD ADD-ON [address] [address], [facility] DTL [address] [address] * (ABNORMAL) CBC with Differential, Blood (07/30/2023 [...] CDT Giorgio Fishman M.D. LAB BLOOD ADD-ON [facility] [address] [place] [address], [place] DTL [facility] [address] [place] [address] [facility] [address] [place] [address] documented in this encounter Visit Diagnoses Diagnosis [...] documented as of this encounter Care Teams Sign Painter Helper Relationship Specialty Start Date End Date Elsewhere, Pcp PCP - General Internal Medicine 10/14/22 documented as of this encounter
--- OUTSIDE RECORDS SUMMARY | 2023-12-18 18:03 | XMS_ITS | Encounter Summary ---
Author Name Unknown Organization [facility] Address [address] [place] [address] Care Team Providers Care Application Developer Manager Name Role Phone Elsewhere, Pcp Primary Care Provider Unavailabl e Encounter Details Date Type Department Care Team (Late st Contact Info) Description 05/06/2023 1:00 PM CDT Lab Department of Infusion Therapy in [place], [place] [address] [place] [address] Giorgio Fishman M.D. [address] [place] [address] Secondary Malignant Neoplasm Of Lung Laterality Unknown [...] often do you attend chur ch or caodaism services? Never 02/03/2023 Do you belong to [...] degree (e.g., MA, MS, Ana Lilia, MEd, AGILE TESTER, GORDO) 02/15/2022 Sex and Gender Information Value Date Recorded Sex Assigned at Male 04/23/2018 1:23 PM CDT Gender Identity Male 04/23/2018 1:23 PM CDT Sexual Orientation Straight 04/23/2018 1: 23 PM CDT documented as of this encounter Plan of Treatment Upcoming Encounters Date Type Department Care Team (Late st Contact Info) Description 12/23/2023 8:30 AM SENIOR ANALYSIS SPECIALIST Clinical Communication Virtual Review in [address] [phone] 12/24/2023 10:30 AM SENIOR ANALYSIS SPECIALIST Appointment Department of Radiology, [facility], in [place], [place] [address] [place] [phone] Noelle Reyes P.A.-C., P.A. [address] [place] [phone] 12/24/2023 11:00 AM SENIOR ANALYSIS SPECIALIST Lab Department of Infusion Therapy in [place], [place] [address] [place] [phone] Noelle Reyes P.A.-C., P.A. [address] [place] [phone] 12/24/2023 2:15 PM SENIOR ANALYSIS SPECIALIST Office Visit Department of Palliative Care in [place], [place] [address] [place], [place] [phone] Aylin Smith, CINDY, C.N.P., M.S.N. [address] [place] [phone] 12/24/2023 4:10 PM SENIOR ANALYSIS SPECIALIST Office Visit Department of Oncology in [place], [place] [address] [place] [phone] Ned Alegria M.D. [address] [place] [phone] documented as of this encounter Goals Goal Patient Goal Type Associated Problems Recent Progress Patient-Stated? Author Your pain? Symptom Management 9(11/20/2022 2:41 PM SENIOR ANALYSIS SPECIALIST) No Fee-Girma Bush, RCandidoN., O.C.N. Note: [...] S 12.4(H) ng/mL 05/06/2023 6:52 PM CDT [facility] Comment: ----REFERENCE VALUE---- <=3.0 (Non-smokers) Some smokers may have elevated CEA, usually <5.0. ----ADDITIONAL INFORMATION---- The testing method is an immunoenzymatic assay manufactured by [employer]. and performed on the [employer] 800. ? Values obtained with different assay methods or kits may be different and cannot be used interchangeably. ? Test results cannot be interpreted as absolute evidence for the presence or absence of malignant disease. Blood (Blood, Venous) 05/06/2023 1:28 PM CDT 05/06/2023 5:55 PM CDT Giorgio Fishman M.D. LAB BLOOD ADD-ON [facility] [address] [place] [address] [facility] [address] [place] [address] * (ABNORMAL) Comprehensive Metabolic Panel (05/06/2023 1:28 PM CDT) Pathologist [facility] Potassium, S 4.3 3.6 - 5.2 mmol/L [...] CDT Giorgio Fishman M.D. LAB BLOOD ADD-ON [facility] [address] [place] [address], [place] DTL [facility] [address] [place] [address] * (ABNORMAL) CBC with Differential, Blood (05/06/2023 [...] Fishman M.D. LAB BLOOD ADD-ON [facility] [address] [place] [address], [place] DTL [facility] [address] [place] [address] documented in this encounter Visit Diagnoses Diagnosis [...] documented as of this encounter Care Teams Application Developer Manager Relationship Specialty Start Date End Date Elsewhere, Pcp PCP - General Internal Medicine 10/14/22 documented as of this encounter
--- OUTSIDE RECORDS SUMMARY | 2023-12-18 18:04 | XMS_ITS | Encounter Summary ---
Author Name Unknown Organization [facility] Address [address] [place] [address] Care Team Providers Care Emergency Medical Technician Basic Name Role Phone Elsewhere, Pcp Primary Care Provider Unavailabl e Reason for Visit * Reason Comments Med Refill pantoprazole Encounter Details Date Type Department Care Team ([facility] st Contact Info) Description 03/06/2023 Refill Department of Oncology in [place], [place] [address] [place] [phone] Leopoldo Renteria P.A.-C., M.S. [address] [place] [address] Med Refill (pantoprazole ) Social History Tobacco [...] often do you attend chur ch or denominational services? Never 02/03/2023 Do you belong to [...] Score 0 04/25/2019 [facility] - Occupational Stress Questionnaire Answer Date [...] degree (e.g., MA, MS, Ana Lilia, MEd, RANGE CONSERVATIONIST, GORDO) 02/15/2022 Sex and Gender Information Value [...] st Contact Info) Description 12/23/2023 8:30 AM CONTRACT ASSOCIATE MANAGER Clinical Communication Virtual Review in [place], [place] 200 [place] [address] 12/24/2023 10:30 AM CONTRACT ASSOCIATE MANAGER Appointment Department of Radiology, [facility], in [address] [phone] Noelle Reyes P.A.-C., P.A. [address] [place] [phone] 12/24/2023 11:00 AM CONTRACT ASSOCIATE MANAGER Lab Department of Infusion Therapy in [address] [phone] Noelle Reyes P.A.-C., P.A. [address] [place] [phone] 12/24/2023 2:15 PM CONTRACT ASSOCIATE MANAGER Office Visit Department of Palliative Care in [address] [phone] Aylin Smith, CINDY, C.N.P., M.S.N. [address] [place] [phone] 12/24/2023 4:10 PM CONTRACT ASSOCIATE MANAGER Office Visit Department of Oncology in [address] [phone] Ned Alegria M.D. [address] [place] [phone] documented as of this encounter Goals Goal Patient Goal Type Associated Problems Recent Progress Patient-Stated? Author Your pain? Symptom Management 9(11/20/2022 2:41 PM CONTRACT ASSOCIATE MANAGER) No Fee-Girma Bush R.N., O.C.N. Note: 05/24/2021: Pain algorithm completed. [place] [...] documented as of this encounter Care Teams Emergency Medical Technician Basic Relationship Specialty Start Date End Date Elsewhere, Pcp PCP - General Internal Medicine 10/14/22 documented as of this encounter
--- OUTSIDE RECORDS SUMMARY | 2023-12-18 18:04 | XMS_ITS | Encounter Summary ---
Author Name Unknown Organization [facility] Address [address] [place] [address] Care Team Providers Care Manufacturing Engineering Technologist Name Role Phone Elsewhere, Pcp Primary Care Provider Unavailabl e Reason for Referral * MRI/CAT/PET Scan (Routine) - Closed Specialty Diagnoses / Procedures Referred By Halima t Referred To Contact Radiology Diagnoses Pain Hip Left Procedures MR Hip Left without and with IV Contrast Amy Neff M.D. [address] [place] [address] [facility] Referral ID Status Reason Start Date Expiration Date Visits Re quested Visits Authorized [id number] Closed 04/15/2023 04/14/2024 1 1 Encounter Details Date Type Department Care Team (Late st Contact Info) Description 04/15/2023 Orders Only Department of Oncology in [place], [place] [address] [place] [phone] Amy Neff M.D. [address] [place] [phone] Pain Hip Left (Primary Dx) Social History [...] week 02/03/2023 How often do you attend [facility] or muslim services? Never 02/03/2023 Do you [...] Answer Date Recorded PHQ-2 Score 0 04/25/2019 [facility] [place] of Occupat ional Health - Occupational Stress [...] degree (e.g., MA, MS, Ana Lilia, MEd, SHOE CLERK, GORDO) 02/15/2022 Sex and Gender Information Value Date Recorded Sex Assigned at Male 04/23/2018 1:23 PM CDT Gender Identity Male 04/23/2018 1:23 PM CDT Sexual Orientation Straight 04/23/2018 1: 23 PM CDT documented as of this encounter Plan of Treatment Upcoming Encounters Date Type Department Care Team (Late st Contact Info) Description 12/23/2023 8:30 AM FRAME AND SCRAP CRUSHER Clinical Communication Virtual Review in [place], [place] 200 [place] [address] 12/24/2023 10:30 AM FRAME AND SCRAP CRUSHER Appointment Department of Radiology, [facility] in [place], [place] [address] [place] [phone] Noelle Reyes P.A.-C., P.A. [address] [place] [phone] 12/24/2023 11:00 AM FRAME AND SCRAP CRUSHER Lab Department of Infusion Therapy in [place], [place] [address] [place] [phone] Noelle Reyes P.A.-C., P.A. [address] [place] [phone] 12/24/2023 2:15 PM FRAME AND SCRAP CRUSHER Office Visit Department of Palliative Care in [address] [phone] Aylin Smith, CINDY, C.N.P., M.S.N. [address] [place] [phone] 12/24/2023 4:10 PM FRAME AND SCRAP CRUSHER Office Visit Department of Oncology in [place], [place] [address] [place] [phone] Ned Alegria M.D. [address] [place] [phone] documented as of this encounter Goals Goal Patient Goal Type Associated Problems Recent Progress Patient-Stated? Author Your pain? Symptom Management 9(11/20/2022 2:41 PM FRAME AND SCRAP CRUSHER) No Fee-Girma Bush, R.N., O.C.N. Note: 05/24/2021: Pain algorithm completed. [facility] 05/24/2021: Followup 06/07 via portal per patient [...] documented as of this encounter Care Teams Manufacturing Engineering Technologist Relationship Specialty Start Date End Date Elsewhere, Pcp PCP - General Internal Medicine 10/14/22 documented as of this encounter
--- OUTSIDE RECORDS SUMMARY | 2023-12-18 18:04 | XMS_ITS | Encounter Summary ---
Author Name Unknown Organization [facility] Address [address] [place] [address] Care Team Providers Care [employer] Planners Name Role Phone Elsewhere, Pcp Primary Care Provider Unavailabl e Reason for Visit * Reason Onset Date Comments 03/21 [facility] 03/21/2023 Encounter Details Date Type Department Care Team (Latest Contact Info) Description 03/21/2023 Clinical Communication Department of Oncology in [place], [place] [address] [place] [address] Giorgio Fishman M.D. [address] [place] [address] 03/21 [facility] Social History Tobacco Use [...] PHQ-2 Score 0 04/25/2019 [facility] - Occupational Stress Questionnaire Answer Date [...] degree (e.g., MA, MS, Ana Lilia, MEd, SCALE EXPERT, GORDO) 02/15/2022 Sex and Gender Information Value Date Recorded Sex Assigned at Male 04/23/2018 1:23 PM CDT Gender Identity Male 04/23/2018 1:23 PM CDT Sexual Orientation Straight 04/23/2018 1: 23 PM CDT documented as of this encounter Plan of Treatment Upcoming Encounters Date Type Department Care Team (Late st Contact Info) Description 12/23/2023 8:30 AM FIELD MANAGER Clinical Communication Virtual Review in [place], [place] [address] [place] [address] 12/24/2023 10:30 AM FIELD MANAGER Appointment Department of Radiology, [facility], in [place], [place] [address] [place] [address] Noelle Reyes P.A.-C., P.A. [address] [place] [address] 12/24/2023 11:00 AM FIELD MANAGER Lab Department of Infusion Therapy in [place], [place] [address] [place] [phone] Noelle Reyes P.A.-C., P.A. [address] [place] [phone] 12/24/2023 2:15 PM FIELD MANAGER Office Visit Department of Palliative Care in [place], [place] [address] [place] [phone] Aylin Smith, CINDY, C.N.P., M.S.N. [address] [place] [phone] 12/24/2023 4:10 PM FIELD MANAGER Office Visit Department of Oncology in [place], [place] [address] [place] [phone] Ned Alegria M.D. [address] [place] [phone] documented as of this encounter Goals Goal Patient Goal Type Associated Problems Recent Progress Patient-Stated? Author Your pain? Symptom Management 9(11/20/2022 2:41 PM FIELD MANAGER) No Fee-Girma Bush, RCandidoN., O.C.N. Note: 05/24/2021: Pain algorithm completed. [facility] 05/24/2021: Followup 06/07 via portal per patient [...] 13.6 13.5 - 17.5 OTHER (SPECIFY IN HRIS DEVELOPER) EXT Leukocytes 4.04(A) 4.50 - 11.00 OTHER (SPECIFY IN HRIS DEVELOPER) EXT Absolute Neutrophil Count 2.10 1.7 - 7.0 OTHER (SPECIFY IN HRIS DEVELOPER) EXT Platelet Count 86(A) 140 - 440 OTHER (SPECIFY IN HRIS DEVELOPER) EXT AST 34 12 - 35 OTHER (SPECIFY IN HRIS DEVELOPER) EXT ALT 48 4 - 50 OTHER (SPECIFY IN HRIS DEVELOPER) EXT Alkaline Phosphatase 107 40 - 150 OTHER (SPECIFY IN HRIS DEVELOPER) EXT Bilirubin, Total 0.9 0.1 - 1.5 mg/dL OTHER (SPECIFY IN HRIS DEVELOPER) EXT Albumin 4.2 3.3 - 5.0 g/dL OTHER (SPECIFY IN HRIS DEVELOPER) EXT Sodium 135 135 - 149 mmol/L OTHER (SPECIFY IN HRIS DEVELOPER) EXT Potassium 4.2 3.6 - 5.1 OTHER (SPECIFY IN HRIS DEVELOPER) EXT Creatinine 0.8 0.5 - 1.5 mg/dL OTHER (SPECIFY IN HRIS DEVELOPER) Blood 03/21/2023 11:1 5 AM CDT Historical Provider LAB BLOOD NON ADD-ON OTHER (SPECIFY IN HRIS DEVELOPER) N/A documented in this encounter Visit Diagnoses Not on filedocumented in this encounter Additional Health Concerns Assessment Noted Time PHQ-9 Depression Total Score: 7 05/26/20 18 10:22 PM CDT documented as of this encounter Care Teams [employer] Planners Relationship Specialty Start Date End Date Elsewhere, Pcp PCP - General Internal Medicine 10/14/22 documented as of this encounter
--- OUTSIDE RECORDS SUMMARY | 2023-12-18 18:04 | XMS_ITS | Encounter Summary ---
Author Name Unknown Organization [facility] Address [address] [place] [address] Care Team Providers Care Materials Management Manager Name Role Phone Elsewhere, Pcp Primary Care Provider Unavailabl e Reason for Visit * Reason Onset Date Comments 02/28 labs only 02/28/2023 Encounter Details Date Type Department Care Team (Latest Contact Info) Description 02/28/2023 Clinical Communication Department of Oncology in [place], [place] [address] [place] [address] Sandi Celaya M.S.N., R.N. 02/28 labs only [...] degree (e.g., MA, MS, Ana Lilia, MEd, TOPOGRAPHICAL SURVEYOR, GORDO) 02/15/2022 Sex and Gender Information Value Date Recorded Sex Assigned at Male 04/23/2018 1:23 PM CDT Gender Identity Male 04/23/2018 1:23 PM CDT Sexual Orientation Straight 04/23/2018 1: 23 PM CDT documented as of this encounter Plan of Treatment Upcoming Encounters Date Type Department Care Team (Late st Contact Info) Description 12/23/2023 8:30 AM COMMUNICATIONS ASSISTANT Clinical Communication Virtual Review in [place], [place] [address] [place] [address] 12/24/2023 10:30 AM COMMUNICATIONS ASSISTANT Appointment Department of Radiology, [facility], in [place], [place] [address] [place] [address] Noelle Reyes P.A.-C., P.A. [address] [place] [phone] 12/24/2023 11:00 AM COMMUNICATIONS ASSISTANT Lab Department of Infusion Therapy in [place], [place] [address] [place] [phone] Noelle Reyes P.A.-C., P.A. [address] [place] [phone] 12/24/2023 2:15 PM COMMUNICATIONS ASSISTANT Office Visit Department of Palliative Care in [place], [place] [address] [place] [phone] Aylin Smith APRN, C.N.P., M.S.N. [address] [place] [phone] 12/24/2023 4:10 PM COMMUNICATIONS ASSISTANT Office Visit Department of Oncology in [place], [place] [address] [place] [phone] Ned Alegria M.D. [address] [place] [phone] documented as of this encounter Goals Goal Patient Goal Type Associated Problems Recent Progress Patient-Stated? Author Your pain? Symptom Management 9(11/20/2022 2:41 PM COMMUNICATIONS ASSISTANT) No Phyllis-Girma Bush, RCandidoN., O.C.N. Note: 05/24/2021: [...] 13.3(A) 13.5 - 17.5 OTHER (SPECIFY IN BATTERY TEST ENGINEER) EXT Leukocytes 6.59 4.50 - 11.00 OTHER (SPECIFY IN BATTERY TEST ENGINEER) EXT Absolute Neutrophil Count 5.10 1.7 - 7.0 OTHER (SPECIFY IN BATTERY TEST ENGINEER) EXT Platelet Count 110(A) 140 - 440 OTHER (SPECIFY IN BATTERY TEST ENGINEER) EXT AST 33 12 - 35 OTHER (SPECIFY IN BATTERY TEST ENGINEER) EXT ALT 55(A) 4 - 50 OTHER (SPECIFY IN BATTERY TEST ENGINEER) EXT Alkaline Phosphatase 93 40 - 150 OTHER (SPECIFY IN BATTERY TEST ENGINEER) EXT Bilirubin, Total 0.8 0.1 - 1.5 mg/dL OTHER (SPECIFY IN BATTERY TEST ENGINEER) EXT Albumin 4.0 3.3 - 5.0 g/dL OTHER (SPECIFY IN BATTERY TEST ENGINEER) EXT Sodium 136 135 - 149 mmol/L OTHER (SPECIFY IN BATTERY TEST ENGINEER) EXT Potassium 4.1 3.6 - 5.1 OTHER (SPECIFY IN BATTERY TEST ENGINEER) EXT Creatinine 0.7 0.5 - 1.5 mg/dL OTHER (SPECIFY IN BATTERY TEST ENGINEER) Blood 02/28/2023 8:45 AM CDT Historical Provider LAB BLOOD NON ADD-ON OTHER (SPECIFY IN BATTERY TEST ENGINEER) N/A documented in this encounter Visit Diagnoses Not on filedocumented in this encounter Additional Health Concerns Assessment Noted Time PHQ-9 Depression Total Score: 7 05/26/20 18 10:22 PM CDT documented as of this encounter Care Teams Materials Management Manager Relationship Specialty Start Date End Date Elsewhere, Pcp PCP - General Internal Medicine 10/14/22 documented as of this encounter
--- OUTSIDE RECORDS SUMMARY | 2023-12-18 18:04 | XMS_ITS | Encounter Summary ---
Author Name Unknown Organization [facility] Address [address] [place] [address] Care Team Providers Care Seismology Teacher Name Role Phone Elsewhere, Pcp Primary Care Provider Unavailabl e Reason for Visit * Reason Comments Med Refill gabapentin Encounter Details Date Type Department Care Team (Late st Contact Info) Description 04/06/2023 Refill Department of Oncology in [place], [place] [address] [place] [address] Giorgio Fishman M.D. [address] [place] [phone] Med Refill (gabapentin ) Social History Tobacco [...] often do you attend chur ch or adventist services? Never 02/03/2023 Do you belong to [...] Score 0 04/25/2019 [facility] - [...] degree (e.g., MA, MS, Ana Lilia, MEd, OPTICIAN APPRENTICE, GORDO) 02/15/2022 Sex and Gender Information Value Date Recorded Sex Assigned at Male 04/23/2018 1:23 PM CDT Gender Identity Male 04/23/2018 1:23 PM CDT Sexual Orientation Straight 04/23/2018 1: 23 PM CDT documented as of this encounter Plan of Treatment Upcoming Encounters Date Type Department Care Team (Late st Contact Info) Description 12/23/2023 8:30 AM RHINOLOGIST Clinical Communication Virtual Review in [place], [place] [address] [place] [address] 12/24/2023 10:30 AM RHINOLOGIST Appointment Department of Radiology, [facility], in [place], [place] [address] [place] [address] Noelle Reyes P.A.-C., P.A. [address] [place] [phone] 12/24/2023 11:00 AM RHINOLOGIST Lab Department of Infusion Therapy in [place], [place] [address] [place] [phone] Noelle Reyes P.A.-C., P.A. [address] [place] [phone] 12/24/2023 2:15 PM RHINOLOGIST Office Visit Department of Palliative Care in [place], [place] [address] [place] [phone] Aylin Smith APRN CCandidoNCandidoP., M.S.N. [address] [place] [phone] 12/24/2023 4:10 PM RHINOLOGIST Office Visit Department of Oncology in [place], [place] [address] [place] [phone] Ned Alegria M.D. [address] [place] [phone] documented as of this encounter Goals Goal Patient Goal Type Associated Problems Recent Progress Patient-Stated? Author Your pain? Symptom Management 9(11/20/2022 2:41 PM RHINOLOGIST) Raisa Ferguson-Girma Bush, R.N., O.C.N. Note: 05/24/2021: Pain algorithm completed. [facility] [...] documented as of this encounter Care Teams Seismology Teacher Relationship Specialty Start Date End Date Elsewhere, Pcp PCP - General Internal Medicine 10/14/22 documented as of this encounter
--- OUTSIDE RECORDS SUMMARY | 2023-12-18 18:04 | XMS_ITS | Encounter Summary ---
Author Name Unknown Organization [facility] Address [address] [place] [address] Care Team Providers Care Process Manager Name Role Phone Elsewhere, Pcp Primary Care Provider Unavailabl e Reason for Visit * Reason Comments Med Refill OLANZapine Encounter Details Date Type Department Care Team (Late st Contact Info) Description 02/23/2023 Refill Department of Oncology in [place], [place] [address] [place] [address] Giorgio Fishman M.D. [address] [place] [address] Med Refill (OLANZapine) Social History Tobacco Use [...] any clubs o r organizations such as christianity groups, unions, fraternal or athletic groups, or [...] degree (e.g., MA, MS, Ana Lilia, MEd, PAINT MIXER HAND, GORDO) 02/15/2022 Sex and Gender Information Value Date Recorded Sex Assigned at Male 04/23/2018 1:23 PM CDT Gender Identity Male 04/23/2018 1:23 PM CDT Sexual Orientation Straight 04/23/2018 1: 23 PM CDT documented as of this encounter Plan of Treatment Upcoming Encounters Date Type Department Care Team (Late st Contact Info) Description 12/23/2023 8:30 AM ARNP Clinical Communication Virtual Review in [place], [place] [address] [place] [address] 12/24/2023 10:30 AM ARNP Appointment Department of Radiology, [facility], in [place], [place] [address] [place] [address] Noelle Reyes P.A.-C., P.A. [address] [place] [phone] 12/24/2023 11:00 AM ARNP Lab Department of Infusion Therapy in [place], [place] [address] [place] [phone] Noelle Reyes P.A.-C., P.A. [address] [place] [phone] 12/24/2023 2:15 PM ARNP Office Visit Department of Palliative Care in [place], [place] [address] [place] [phone] Aylin Smith APRN CCandidoNCandidoP., M.S.N. [address] [place] [phone] 12/24/2023 4:10 PM ARNP Office Visit Department of Oncology in [place], [place] [address] [place] [phone] Ned Alegria M.D. [address] [place] [phone] documented as of this encounter Goals Goal Patient Goal Type Associated Problems Recent Progress Patient-Stated? Author Your pain? Symptom Management 9(11/20/2022 2:41 PM ARNP) Raisa Ferguson-Girma Bush, R.N., O.C.N. Note: 05/24/2021: Pain algorithm completed. [facility] 05/24/2021: Followup 06/07 via [...] documented as of this encounter Care Teams Process Manager Relationship Specialty Start Date End Date Elsewhere, Pcp PCP - General Internal Medicine 10/14/22 documented as of this encounter
--- OUTSIDE RECORDS SUMMARY | 2023-12-18 18:04 | XMS_ITS | Encounter Summary ---
Author Name Unknown Organization [facility] Address [address] [place] [address] Care Team Providers Care Stereotype Caster Name Role Phone Elsewhere, Pcp Primary Care Provider Unavailabl e Reason for Referral * Outpatient (Routine) - Closed Specialty Diagnoses / Procedures Referred By Halima owen Referred To Contact Diagnoses Pain Neuropathic Procedures FL Thoracic Paravertebral Block Injection Right FL Thoracic Paravertebral Block Injection Right MD PARAVERTEB BLOCK THOR SNGL MD PARAVERTEB BLOCK THOR 2ND & ADD MD PARAVERTEB BLOCK THOR 2ND & ADD Ella Potter M.D. 200 [place] [address] [facility] Referral ID Status Reason Start Date Expiration Date Visits Re quested Visits Authorized [id number] Closed 04/01/2023 03/31/2024 1 1 Reason for Visit * Outpatient (Routine) - Closed Specialty Diagnoses / Procedures Referred By Halima owen Referred To Contact Diagnoses Pain Neuropathic Procedures FL Thoracic Paravertebral Block Injection Right FL Thoracic Paravertebral Block Injection Right MD PARAVERTEB BLOCK THOR SNGL MD PARAVERTEB BLOCK THOR 2ND & ADD MD PARAVERTEB BLOCK THOR 2ND & ADD Ella Potter M.D. [address] [place] [phone] [facility] Referral ID Status Reason Start Date Expiration Date Visits Re quested Visits Authorized [id number] Closed 04/01/2023 03/31/2024 1 1 Encounter Details Date Type Department Care Team (Latest Contact Info) Description 04/04/2023 7:21 AM CDT - 04/04/2023 11:59 PM CDT Hospital Encounter Division of Pain Medicine in [place], [place] [address] [place] [address] Ella Potter M.D. Pain Neuropathic Discharge Disposition: [...] Answer Date Recorded PHQ-2 Score 0 04/25/2019 [facility] - Occupational Stress [...] degree (e.g., MA, MS, Ana Lilia, MEd, REGISTRATION SCHEDULING SPECIALIST, GORDO) 02/15/2022 Sex and Gender Information [...] chest pain. 25 tablet 12 05/28/2018 omega 5-oit-snu-fish oil 1,000 mg (120 mg-180 mg) capsule [...] THE MORNING 90 tablet 1 03/06/2023 04/21/2023 prochlorperazine (COMPAZINE) 10 mg tablet Take 10 [...] fellow participated in the procedure, and the sales representative consultant was present for the entire procedure. [...] st Contact Info) Description 12/23/2023 8:30 AM SPANISH LECTURER Clinical Communication Virtual Review in [address] [address] 12/24/2023 10:30 AM SPANISH LECTURER Appointment Department of Radiology, [facility] in [address] [phone] Noelle Reyes, P.A.-C., P.A. [address] [place] [phone] 12/24/2023 11:00 AM SPANISH LECTURER Lab Department of Infusion Therapy in [address] [phone] Noelle Reyes, P.A.-C., P.A. [address] [place] [phone] 12/24/2023 2:15 PM SPANISH LECTURER Office Visit Department of Palliative Care in [address] [phone] Aylin Smith, SKIDDER OPERATOR, C.N.P., M.S.N. [address] [place] [phone] 12/24/2023 4:10 PM SPANISH LECTURER Office Visit Department of Oncology in [place], [place] [address] [place] [address] Ned Alegria M.D. [address] [place] [phone] documented as of this encounter Goals Goal Patient Goal Type Associated Problems Recent Progress Patient-Stated? Author Your pain? Symptom Management 9(11/20/2022 2:41 PM SPANISH LECTURER) No Fee-Girma Bush, RCandidoN., O.C.N. Note: 05/24/2021: Pain algorithm completed. POST [...] fellow participated in the procedure, and the sales representative consultant was present for the entire procedure. [...] documented as of this encounter Care Teams Stereotype Caster Relationship Specialty Start Date End Date Elsewhere, Pcp PCP - General Internal Medicine 10/14/22 documented as of this encounter
--- OUTSIDE RECORDS SUMMARY | 2023-12-18 18:04 | XMS_ITS | Encounter Summary ---
Author Name Unknown Organization [facility] Address [address] [place] [address] Care Team Providers Care Web Content & Social Media Manager Name Role Phone Elsewhere, Pcp Primary Care Provider Unavailabl e Reason for Visit * Reason Onset Date Comments 03-07-2023 Labs Only 03/07/2023 Encounter Details Date Type Department Care Team (Latest Contact Info) Description 03/07/2023 Clinical Communication Department of Oncology in [place], [place] [address] [place] [address] Leopoldo Renteria P.A.-C., M.S. [address] [place] [address] 03-07-2023 Labs Only Social History Tobacco Use [...] Answer Date Recorded PHQ-2 Score 0 04/25/2019 [facility]at ional [facility] - [...] degree (e.g., MA, MS, Ana Lilia, MEd, CAR MECHANIC, GORDO) 02/15/2022 Sex and Gender Information Value Date Recorded Sex Assigned at Male 04/23/2018 1:23 PM CDT Gender Identity Male 04/23/2018 1:23 PM CDT Sexual Orientation Straight 04/23/2018 1: 23 PM CDT documented as of this encounter Plan of Treatment Upcoming Encounters Date Type Department Care Team (Late st Contact Info) Description 12/23/2023 8:30 AM TYRE RETREADER Clinical Communication Virtual Review in [place], [place] [address] [place] [address] 12/24/2023 10:30 AM TYRE RETREADER Appointment Department of Radiology, [facility], in [place], [place] [address] [place] [phone] Noelle Reyes P.A.-C., P.A. [address] [place] [phone] 12/24/2023 11:00 AM TYRE RETREADER Lab Department of Infusion Therapy in [place], [place] [address] [place] [phone] Noelle Reyes P.A.-C., P.A. [address] [place] [address] 12/24/2023 2:15 PM TYRE RETREADER Office Visit Department of Palliative Care in [place], [place] [address] [place] [phone] Aylin Smith APRN, C.N.P., M.S.N. [address] [place] [phone] 12/24/2023 4:10 PM TYRE RETREADER Office Visit Department of Oncology in [place], [place] [address] [place] [phone] Ned Alegria M.D. [address] [place] [phone] documented as of this encounter Goals Goal Patient Goal Type Associated Problems Recent Progress Patient-Stated? Author Your pain? Symptom Management 9(11/20/2022 2:41 PM TYRE RETREADER) No Fee-Girma Bush, R.N., O.C.N. Note: 05/24/2021: [...] 13.6 13.5 - 17.5 OTHER (SPECIFY IN DINKEY ENGINEER) EXT Leukocytes 3.38(A) 4.50 - 11.00 OTHER (SPECIFY IN DINKEY ENGINEER) EXT Absolute Neutrophil Count 1.90 1.7 - 7.0 OTHER (SPECIFY IN DINKEY ENGINEER) EXT Platelet Count 121(A) 140 - 440 OTHER (SPECIFY IN DINKEY ENGINEER) EXT AST 32 12 - 35 OTHER (SPECIFY IN DINKEY ENGINEER) EXT ALT 37 4 - 50 OTHER (SPECIFY IN DINKEY ENGINEER) EXT Alkaline Phosphatase 89 40 - 150 OTHER (SPECIFY IN DINKEY ENGINEER) EXT Bilirubin, Total 0.7 0.1 - 1.5 mg/dL OTHER (SPECIFY IN DINKEY ENGINEER) EXT Albumin 3.9 3.3 - 5.0 g/dL OTHER (SPECIFY IN DINKEY ENGINEER) EXT Sodium 134(A) 135 - 149 mmol/L OTHER (SPECIFY IN DINKEY ENGINEER) EXT Potassium 4.1 3.6 - 5.1 OTHER (SPECIFY IN DINKEY ENGINEER) EXT Creatinine 0.7 0.5 - 1.5 mg/dL OTHER (SPECIFY IN DINKEY ENGINEER) Blood 03/07/2023 9:05 AM CDT Historical Provider LAB BLOOD NON ADD-ON OTHER (SPECIFY IN DINKEY ENGINEER) N/A documented in this encounter Visit Diagnoses Not on filedocumented in this encounter Additional Health Concerns Assessment Noted Time PHQ-9 Depression Total Score: 7 05/26/20 18 10:22 PM CDT documented as of this encounter Care Teams Web Content & Social Media Manager Relationship Specialty Start Date End Date Elsewhere, Pcp PCP - General Internal Medicine 10/14/22 documented as of this encounter
--- OUTSIDE RECORDS SUMMARY | 2023-12-18 18:04 | XMS_ITS | Encounter Summary ---
Author Name Unknown Organization [facility] Address [address] [place] [address] Care Team Providers Care Workday Manager Name Role Phone Elsewhere, Pcp Primary Care Provider Unavailabl e Reason for Visit * Reason Comments Med Refill pantoprazole Encounter Details Date Type Department Care Team ([facility] st Contact Info) Description 04/21/2023 Refill Department of Oncology in [place], [place] [address] [place] [phone] Leopoldo Renteria P.A.-C., M.S. [address] [place] [address] Med Refill (pantoprazole ) Social History Tobacco [...] Answer Date Recorded PHQ-2 Score 0 04/25/2019 [facility] - Occupational Stress Questionnaire Answer Date [...] degree (e.g., MA, MS, Ana Lilia, MEd, TRADE FACILITATOR, GORDO) 02/15/2022 Sex and Gender Information Value Date Recorded Sex Assigned at Male 04/23/2018 1:23 PM CDT Gender Identity Male 04/23/2018 1:23 PM CDT Sexual Orientation Straight 04/23/2018 1: 23 PM CDT documented as of this encounter Plan of Treatment Upcoming Encounters Date Type Department Care Team (Late st Contact Info) Description 12/23/2023 8:30 AM TITLE CLOSER Clinical Communication Virtual Review in [place], [place] [address] [place] [address] 12/24/2023 10:30 AM TITLE CLOSER Appointment Department of Radiology, [facility], in [place], [place] [address] [place] [address] Noelle Reyes P.A.-C., P.A. [address] [place] [phone] 12/24/2023 11:00 AM TITLE CLOSER Lab Department of Infusion Therapy in [place], [place] [address] [place] [address] Noelle Reyes P.A.-C., P.A. [address] [place] [phone] 12/24/2023 2:15 PM TITLE CLOSER Office Visit Department of Palliative Care in [place], [place] [address] [place] [phone] Aylin Smith, CINDY, C.N.P., M.S.N. [address] [place] [phone] 12/24/2023 4:10 PM TITLE CLOSER Office Visit Department of Oncology in [place], [place] [address] [place] [phone] Ned Alegria M.D. [address] [place] [phone] documented as of this encounter Goals Goal Patient Goal Type Associated Problems Recent Progress Patient-Stated? Author Your pain? Symptom Management 9(11/20/2022 2:41 PM TITLE CLOSER) No Fee-Girma Bush, R.N., O.C.N. Note: 05/24/2021: [...] documented as of this encounter Care Teams Workday Manager Relationship Specialty Start Date End Date Elsewhere, Pcp PCP - General Internal Medicine 10/14/22 documented as of this encounter
--- OUTSIDE RECORDS SUMMARY | 2023-12-18 18:04 | XMS_ITS | Encounter Summary ---
Author Name Unknown Organization [facility] Address [address] [place] [address] Care Team Providers Care Remedy Developer Name Role Phone Elsewhere, Pcp Primary Care Provider Unavailabl e Reason for Visit * Reason Onset Date Comments 03/14/23 Labs Only 03/14/2023 Encounter Details Date Type Department Care Team (Latest Contact Info) Description 03/14/2023 Clinical Communication Department of Oncology in [place], [place] [address] [place] [address] Sandi Celaya M.S.N., R.N. 03/14/23 Labs Only [...] any clubs o r organizations such as protestant groups, unions, fraternal or athletic groups, or [...] degree (e.g., MA, MS, Ana Lilia, MEd, MACHINE APPLICATOR CEMENTER, GORDO) 02/15/2022 Sex and Gender Information Value Date Recorded Sex Assigned at Male 04/23/2018 1:23 PM CDT Gender Identity Male 04/23/2018 1:23 PM CDT Sexual Orientation Straight 04/23/2018 1: 23 PM CDT documented as of this encounter Plan of Treatment Upcoming Encounters Date Type Department Care Team (Late st Contact Info) Description 12/23/2023 8:30 AM GENERATOR MAN Clinical Communication Virtual Review in [place], [place] [address] [place] [address] 12/24/2023 10:30 AM GENERATOR MAN Appointment Department of Radiology, [facility], in [place], [place] [address] [place] [address] Noelle Reyes P.A.-C., P.A. [address] [place] [phone] 12/24/2023 11:00 AM GENERATOR MAN Lab Department of Infusion Therapy in [place], [place] [address] [place] [phone] Noelle Reyes P.A.-C., P.A. [address] [place] [phone] 12/24/2023 2:15 PM GENERATOR MAN Office Visit Department of Palliative Care in [place], [place] [address] [place] [phone] Aylin Smith APRN, CCandidoN.P., M.S.N. [address] [place] [phone] 12/24/2023 4:10 PM GENERATOR MAN Office Visit Department of Oncology in [place], [place] [address] [place] [phone] Ned Alegria M.D. [address] [place] [phone] documented as of this encounter Goals Goal Patient Goal Type Associated Problems Recent Progress Patient-Stated? Author Your pain? Symptom Management 9(11/20/2022 2:41 PM GENERATOR MAN) Raisa Ferguson-Girma Bush, RCandidoN., O.C.N. Note: 05/24/2021: [...] 13.3(A) 13.5 - 17.5 OTHER (SPECIFY IN COFOUNDER) EXT Leukocytes 3.16(A) 4.50 - 11.00 OTHER (SPECIFY IN COFOUNDER) EXT Absolute Neutrophil Count 1.50(A) 1.7 - 7.0 OTHER (SPECIFY IN COFOUNDER) EXT Platelet Count 107(A) 140 - 440 OTHER (SPECIFY IN COFOUNDER) EXT AST 34 12 - 35 OTHER (SPECIFY IN COFOUNDER) EXT ALT 44 4 - 50 OTHER (SPECIFY IN COFOUNDER) EXT Alkaline Phosphatase 105 40 - 150 OTHER (SPECIFY IN COFOUNDER) EXT Bilirubin, Total 0.7 0.1 - 1.5 mg/dL OTHER (SPECIFY IN COFOUNDER) EXT Albumin 4.0 3.3 - 5.0 g/dL OTHER (SPECIFY IN COFOUNDER) EXT Sodium 136 135 - 149 mmol/L OTHER (SPECIFY IN COFOUNDER) EXT Potassium 4.2 3.6 - 5.1 OTHER (SPECIFY IN COFOUNDER) EXT Creatinine 0.8 0.5 - 1.5 mg/dL OTHER (SPECIFY IN COFOUNDER) Blood 03/14/2023 8:30 AM CDT Historical Provider LAB BLOOD NON ADD-ON OTHER (SPECIFY IN COFOUNDER) N/A documented in this encounter Visit Diagnoses Not on filedocumented in this encounter Additional Health Concerns Assessment Noted Time PHQ-9 Depression Total Score: 7 05/26/20 18 10:22 PM CDT documented as of this encounter Care Teams Remedy Developer Relationship Specialty Start Date End Date Elsewhere, Pcp PCP - General Internal Medicine 10/14/22 documented as of this encounter
--- OUTSIDE RECORDS SUMMARY | 2023-12-18 18:04 | XMS_ITS | Encounter Summary ---
Author Name Unknown Organization [facility] Address [address] [place] [address] Care Team Providers Care Mold Insert Changer Name Role Phone Elsewhere, Pcp Primary Care Provider Unavailabl e Reason for Visit * Reason Onset Date Comments 04/04 Alert Labs 04/04/2023 Encounter Details Date Type Department Care Team (Latest Contact Info) Description 04/04/2023 Clinical Communication Department of Oncology in [place], [place] [address] [place] [address] Sandi Celaya M.S.N., R.N. 04/04 Alert Labs [...] Answer Date Recorded PHQ-2 Score 0 04/25/2019 [facility] - [...] degree (e.g., MA, MS, Ana Lilia, MEd, HULL LINE CREW MEMBER, GORDO) 02/15/2022 Sex and Gender Information Value Date Recorded Sex Assigned at Male 04/23/2018 1:23 PM CDT Gender Identity Male 04/23/2018 1:23 PM CDT Sexual Orientation Straight 04/23/2018 1: 23 PM CDT documented as of this encounter Plan of Treatment Upcoming Encounters Date Type Department Care Team (Late st Contact Info) Description 12/23/2023 8:30 AM FIRST AID INSTRUCTOR Clinical Communication Virtual Review in [place], [place] [address] [place] [address] 12/24/2023 10:30 AM FIRST AID INSTRUCTOR Appointment Department of Radiology, [facility], in [place], [place] [address] [place] [address] Noelle Reyes P.A.-C., P.A. [address] [place] [phone] 12/24/2023 11:00 AM FIRST AID INSTRUCTOR Lab Department of Infusion Therapy in [place], [place] [address] [place] [phone] Noelle Reyes P.A.-C., P.A. [address] [place] [phone] 12/24/2023 2:15 PM FIRST AID INSTRUCTOR Office Visit Department of Palliative Care in [place], [place] [address] [place] [phone] Aylin Smith APRN, C.N.P., M.S.N. [address] [place] [phone] 12/24/2023 4:10 PM FIRST AID INSTRUCTOR Office Visit Department of Oncology in [place], [place] [address] [place] [phone] Ned Alegria M.D. [address] [place] [phone] documented as of this encounter Goals Goal Patient Goal Type Associated Problems Recent Progress Patient-Stated? Author Your pain? Symptom Management 9(11/20/2022 2:41 PM FIRST AID INSTRUCTOR) No Phyllis-Girma Bush, RCandidoN., O.C.N. Note: 05/24/2021: [...] 13.5 13.5 - 17.5 OTHER (SPECIFY IN BRIEFCASE SEWER) EXT Leukocytes 2.71(A) 4.50 - 11.00 OTHER (SPECIFY IN BRIEFCASE SEWER) EXT Absolute Neutrophil Count 2.30 1.7 - 7.0 OTHER (SPECIFY IN BRIEFCASE SEWER) EXT Platelet Count 73(A) 140 - 440 OTHER (SPECIFY IN BRIEFCASE SEWER) EXT AST 38(A) 12 - 35 OTHER (SPECIFY IN BRIEFCASE SEWER) EXT ALT 41 4 - 50 OTHER (SPECIFY IN BRIEFCASE SEWER) EXT Alkaline Phosphatase 102 40 - 150 OTHER (SPECIFY IN BRIEFCASE SEWER) EXT Bilirubin, Total 0.7 0.1 - 1.5 mg/dL OTHER (SPECIFY IN BRIEFCASE SEWER) EXT Albumin 4.2 3.3 - 5.0 g/dL OTHER (SPECIFY IN BRIEFCASE SEWER) EXT Sodium 137 135 - 149 mmol/L OTHER (SPECIFY IN BRIEFCASE SEWER) EXT Potassium 4.4 3.6 - 5.1 OTHER (SPECIFY IN BRIEFCASE SEWER) EXT Creatinine 0.7 0.5 - 1.5 mg/dL OTHER (SPECIFY IN BRIEFCASE SEWER) Blood 04/04/2023 10:2 0 AM CDT Historical Provider LAB BLOOD NON ADD-ON OTHER (SPECIFY IN BRIEFCASE SEWER) N/A documented in this encounter Visit Diagnoses Not on filedocumented in this encounter Additional Health Concerns Assessment Noted Time PHQ-9 Depression Total Score: 7 05/26/20 18 10:22 PM CDT documented as of this encounter Care Teams Mold Insert Changer Relationship Specialty Start Date End Date Elsewhere, Pcp PCP - General Internal Medicine 10/14/22 documented as of this encounter
--- OUTSIDE RECORDS SUMMARY | 2023-12-18 18:04 | XMS_ITS | Encounter Summary ---
Author Name Unknown Organization [facility] Address [address] [place] [address] Care Team Providers Care Nuclear Powerplant Mechanic Helper Name Role Phone Elsewhere, Pcp Primary Care Provider Unavailabl e Reason for Visit * Reason Comments Med Refill OLANZapine Encounter Details Date Type Department Care Team (Late st Contact Info) Description 04/21/2023 Refill Department of Oncology in [place], [place] [address] [place] [address] Giorgio Fishman M.D. [address] [place] [phone] Med Refill (OLANZapine) Social History Tobacco Use [...] often do you attend chur ch or confucianist services? Never 02/03/2023 Do you belong to [...] 0 04/25/2019 [facility] - [...] degree (e.g., MA, MS, Ana Lilia, MEd, DRILLER'S OFFSIDER, GORDO) 02/15/2022 Sex and Gender Information Value Date Recorded Sex Assigned at Male 04/23/2018 1:23 PM CDT Gender Identity Male 04/23/2018 1:23 PM CDT Sexual Orientation Straight 04/23/2018 1: 23 PM CDT documented as of this encounter Plan of Treatment Upcoming Encounters Date Type Department Care Team (Late st Contact Info) Description 12/23/2023 8:30 AM ETHERNET NETWORK ARCHITECT Clinical Communication Virtual Review in [place], [place] [address] [place] [address] 12/24/2023 10:30 AM ETHERNET NETWORK ARCHITECT Appointment Department of Radiology, [facility], in [place], [place] [address] [place] [address] Noelle Reyes P.A.-C., P.A. [address] [place] [phone] 12/24/2023 11:00 AM ETHERNET NETWORK ARCHITECT Lab Department of Infusion Therapy in [place], [place] [address] [place] [phone] Noelle Reyes P.A.-C., P.A. [address] [place] [phone] 12/24/2023 2:15 PM ETHERNET NETWORK ARCHITECT Office Visit Department of Palliative Care in [place], [place] [address] [place] [phone] Aylin Smith APRN CCandidoNCandidoP., M.S.N. [address] [place] [phone] 12/24/2023 4:10 PM ETHERNET NETWORK ARCHITECT Office Visit Department of Oncology in [place], [place] [address] [place] [phone] Ned Alegria M.D. [address] [place] [phone] documented as of this encounter Goals Goal Patient Goal Type Associated Problems Recent Progress Patient-Stated? Author Your pain? Symptom Management 9(11/20/2022 2:41 PM ETHERNET NETWORK ARCHITECT) Raisa Ferguson-Girma Bush, R.N., O.C.N. Note: 05/24/2021: Pain algorithm completed. [facility] [place]: [...] documented as of this encounter Care Teams Nuclear Powerplant Mechanic Helper Relationship Specialty Start Date End Date Elsewhere, Pcp PCP - General Internal Medicine 10/14/22 documented as of this encounter
--- OUTSIDE RECORDS SUMMARY | 2023-12-18 18:05 | XMS_ITS | Encounter Summary ---
Author Name Unknown Organization [facility] Address [address] [place] [address] Care Team Providers Care Die Cut Operator Name Role Phone Elsewhere, Pcp Primary [...] without IV Contrast Myrtle Guzman M.D. [address] [place] [address] 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 [address] [place] [address] 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 [address] [place] [address] 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 [address] [place] [address] [facility] Referral ID Status Reason Start Date Expiration Date Visits Re quested Visits Authorized [id number] Closed 01/02/2023 01/01/2026 1 1 Encounter Details Date Type Department Care Team (Late st Contact Info) Description 02/12/2023 4:00 PM CDT Telemedicine Department of Oncology in [place], [place] [address] [place] [address] Myrtle Gumzan M.D. [address] [place] [phone] Secondary Malignant Neoplasm Lymph Node Multiple Site [...] week 02/03/2023 How often do you attend [facility] or restoration services? Never 02/03/2023 Do you belong to any clubs o r organizations such as anabaptism groups, unions, fraternal or athletic groups, or [...] Answer Date Recorded PHQ-2 Score 0 04/25/2019 [facility]at ional [facility] - [...] degree (e.g., MA, MS, Ana Lilia, MEd, VACUUM CASTER, GORDO) 02/15/2022 Sex and Gender Information Value Date Recorded Sex Assigned at Male 04/23/2018 1:23 PM CDT Gender Identity Male 04/23/2018 1:23 PM CDT Sexual Orientation Straight 04/23/2018 1: 23 PM CDT documented as of this encounter Progress Notes * Myrtle Guzman M.D. - 02/12/2023 4:00 PM CDT SUBJECTIVE PRIMARY CARE PHYSICIAN ELSEWHERE, PCP LOCAL ONCOLOGIST No care produce production team member to display PRIMARY [place] ONCOLOGIST Myrtle Guzman M.D. CHIEF COMPLAINT / [...] was positive for invasive adenocarcinoma. Came to [place] and seen by Gastroenterology. Underwent staging MRI [...] Right posterolateral thoracotomy and mediastinal lymphadenectomy. SURGEON(S) WAREHOUSE CHECKER: Jazmine Bowden M.D. ASSISTING RESIDENT: Bandar Owusu [...] for metastasis 06/11/2021 - 06/13/2021 Radiation Therapy 1325-9760 cGy in 3 fractions to right posterior [...] for metastasis 06/11/2021 - 06/13/2021 Radiation Therapy 2185-0004 cGy in 3 fractions to right posterior [...] happy to see him back here in [place] if he so desires. For now his [...] audio/video technology by Myrtle Guzman M.D. in [facility] to the patient in patient's vacation location in [place] documented in this encounter Miscellaneous Notes * Addendum Note - Myrtle Guzman M.D. - 02/12/2023 4:00 PM CDTAddended by: MYRTLE GUZMAN on: 02/25/2023 08:18 AM Modules accepted: Orders documented in this encounter Plan of Treatment Upcoming Encounters Date Type Department Care Team (Late st Contact Info) Description 12/23/2023 8:30 AM SHIPPER/RECEIVER Clinical Communication Virtual Review in [address] [address] 12/24/2023 10:30 AM SHIPPER/RECEIVER Appointment Department of Radiology, [facility], in [address] [phone] Noelle Reyes P.A.-C., P.A. [address] [place] [phone] 12/24/2023 11:00 AM SHIPPER/RECEIVER Lab Department of Infusion Therapy in [place], [place] [address] [place] [phone] Noelle Reyes P.A.-C., P.A. [address] [place] [phone] 12/24/2023 2:15 PM SHIPPER/RECEIVER Office Visit Department of Palliative Care in [address] [phone] Aylin Smith, CINDY, C.N.P., M.S.N. [address] [place] [address] 12/24/2023 4:10 PM SHIPPER/RECEIVER Office Visit Department of Oncology in [place], [place] [address] [place] [address] Ned Alegria M.D. 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 Author Your pain? Symptom Management 9(11/20/2022 2:41 PM SHIPPER/RECEIVER) No Phyllis-Girma Bush R.N., O.C.N. Note: 05/24/2021: Pain algorithm completed. [facility] [place]21: Followup 06/07 via portal per patient [...] of the celiac artery. Myrtle Guzman M.D. [facility] [place]ED[place] * (ABNORMAL) CEA (Carcinoembryonic Antigen) (05/06/2023 1:28 PM CDT) [facility] Carcinoembryonic Ag (CEA), S 12.4(H) ng/mL 05/06/2023 6:52 PM CDT [facility] Comment: ----REFERENCE VALUE---- <=3.0 (Non-smokers) Some smokers may have elevated CEA, usually <5.0. ----ADDITIONAL INFORMATION---- The testing method is an immunoenzymatic assay manufactured by [employer]. and performed on the [employer] 800. ? Values obtained with different assay methods or kits may be different and cannot be used interchangeably. ? Test results cannot be interpreted as absolute evidence for the presence or absence of malignant disease. Blood (Blood, Venous) 05/06/2023 1:28 PM CDT 05/06/2023 5:55 PM CDT Myrtle Guzman M.D. LAB BLOOD ADD-ON Performing Organization Address City/State/[facility] Co de Phone Number [facility] [address] [place] [address] [facility] [address] [place] [address] * (ABNORMAL) Comprehensive Metabolic Panel (05/06/2023 1:28 PM CDT) [facility] Potassium, S 4.3 3.6 - 5.2 mmol/L [...] 1:28 PM CDT 05/06/2023 2:16 PM CDT yMrtle Guzman M.D. LAB BLOOD ADD-ON [facility] [address] [place] [address], [facility] [address] [place] [address] * (ABNORMAL) CBC with Differential, Blood (05/06/2023 [...] CDT Myrtle Guzman M.D. LAB BLOOD ADD-ON [facility] [address] [place] [address], [facility] DTL [facility] [address] [place] [address] documented in this encounter Visit Diagnoses Diagnosis [...] documented as of this encounter Care Teams Die Cut Operator Relationship Specialty Start Date End Date Elsewhere, Pcp PCP - General Internal Medicine 10/14/22 documented as of this encounter
--- OUTSIDE RECORDS SUMMARY | 2023-12-18 18:05 | XMS_ITS | Encounter Summary ---
Author Name Unknown Organization [facility] Address [address] [place] [address] Care Team Providers Care Accessories Repairer Name Role Phone Elsewhere, Pcp Primary Care Provider Unavailabl e Reason for Visit * Reason Onset Date Comments 01/24/23 labs only 01/27/2023 Encounter Details Date Type Department Care Team (Latest Contact Info) Description 01/27/2023 Clinical Communication Department of Oncology in [place], [place] [address] [place] [address] Binta Staples, RRancho. 01/24/23 labs only Social [...] week 02/15/2022 How often do you attend hoahaoism or buddhist serv ices? Never 02/15/2022 Do you belong [...] slept in a [facility] (including now)? No 02/15/2022 Nutrition Answer Date [...] degree (e.g., MA, MS, Ana Lilia, MEd, WELL TESTING OPERATOR, GORDO) 02/15/2022 Sex and Gender Information Value Date Recorded Sex Assigned at Male 04/23/2018 1:23 PM CDT Gender Identity Male 04/23/2018 1:23 PM CDT Sexual Orientation Straight 04/23/2018 1: 23 PM CDT documented as of this encounter Plan of Treatment Upcoming Encounters Date Type Department Care Team (Late st Contact Info) Description 12/23/2023 8:30 AM DEFENSE TRAVEL ADMINISTRATOR Clinical Communication Virtual Review in [place], [place] [address] [place] [address] 12/24/2023 10:30 AM DEFENSE TRAVEL ADMINISTRATOR Appointment Department of Radiology, [facility], in [place], [place] [address] [place] [address] Noelle Reyes P.A.-C., P.A. [address] [place] [phone] 12/24/2023 11:00 AM DEFENSE TRAVEL ADMINISTRATOR Lab Department of Infusion Therapy in [place], [place] [address] [place] [phone] Noelle Reyes P.A.-C., P.A. [address] [place] [phone] 12/24/2023 2:15 PM DEFENSE TRAVEL ADMINISTRATOR Office Visit Department of Palliative Care in [place], [place] [address] [place] [phone] Aylin Smith, CINDY, C.N.P., M.S.N. [address] [place] [phone] 12/24/2023 4:10 PM DEFENSE TRAVEL ADMINISTRATOR Office Visit Department of Oncology in [place], [place] [address] [place] [phone] Ned Alegria M.D. [address] [place] [phone] documented as of this encounter Goals Goal Patient Goal Type Associated Problems Recent Progress Patient-Stated? Author Your pain? Symptom Management 9(11/20/2022 2:41 PM DEFENSE TRAVEL ADMINISTRATOR) No Fee-Girma Bush, R.N., O.C.N. Note: 05/24/2021: [...] EXTERNAL LAB RESULTS Routine 01/24/2023 8:30 AM DEFENSE TRAVEL ADMINISTRATOR documented in this encounter Results * (ABNORMAL) Hematology/Oncology - Blood, External Lab Results (01/24/2023 8:30 AM DEFENSE TRAVEL ADMINISTRATOR) EXT Hemoglobin 14.6 13.5 - 17.5 OTHER (SPECIFY IN ROPE RIDER) EXT Leukocytes 3.41(A) 4.50 - 11.00 OTHER (SPECIFY IN ROPE RIDER) EXT Absolute Neutrophil Count 1.80 1.7 - 7.0 OTHER (SPECIFY IN ROPE RIDER) EXT Platelet Count 107(A) 140 - 440 OTHER (SPECIFY IN ROPE RIDER) EXT AST 31 12 - 35 OTHER (SPECIFY IN ROPE RIDER) EXT ALT 40 4 - 50 OTHER (SPECIFY IN ROPE RIDER) EXT Alkaline Phosphatase 81 40 - 150 OTHER (SPECIFY IN ROPE RIDER) EXT Bilirubin, Total 1.1 0.1 - 1.5 mg/dL OTHER (SPECIFY IN ROPE RIDER) EXT Albumin 4.1 3.3 - 5.0 g/dL OTHER (SPECIFY IN ROPE RIDER) EXT Sodium 135 135 - 149 mmol/L OTHER (SPECIFY IN ROPE RIDER) EXT Potassium 3.9 3.6 - 5.1 OTHER (SPECIFY IN ROPE RIDER) EXT Creatinine 0.9 0.5 - 1.5 mg/dL OTHER (SPECIFY IN ROPE RIDER) Blood 01/24/2023 8:30 AM DEFENSE TRAVEL ADMINISTRATOR Historical Provider LAB BLOOD NON ADD-ON OTHER (SPECIFY IN ROPE RIDER) N/A documented in this encounter Visit Diagnoses Not on filedocumented in this encounter Additional Health Concerns Assessment Noted Time PHQ-9 Depression Total Score: 7 05/26/20 18 10:22 PM CDT documented as of this encounter Care Teams Accessories Repairer Relationship Specialty Start Date End Date Elsewhere, Pcp PCP - General Internal Medicine 10/14/22 documented as of this encounter
--- OUTSIDE RECORDS SUMMARY | 2023-12-18 18:05 | XMS_ITS | Encounter Summary ---
Author Name Unknown Organization [facility] Address [address] [place] [address] Care Team Providers Care Lease Attendant Name Role Phone Elsewhere, Pcp Primary Care [...] without IV Contrast Giorgio Fishman M.D. 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 [address] [place] [address] [facility] Referral ID Status Reason Start Date Expiration Date Visits Re quested Visits Authorized [id number] Closed 01/02/2023 01/02/2024 1 1 Encounter Details Date Type Department Care Team (Latest Contact Info) Description 02/03/2023 9:59 AM CDT - 02/03/2023 11:59 PM CDT Hospital Encounter Department of Radiology, [facility], in [place], [place] [address] [place] [address] Giorgio Fishman M.D. [address] [place] [address] Secondary Malignant Neoplasm Of Lung [...] any clubs o r organizations such as yarsani groups, unions, fraternal or athletic groups, or [...] PHQ-2 Score 0 04/25/2019 [facility] Questionnaire Answer [...] degree (e.g., MA, MS, Ana Lilia, MEd, PACKAGE DESIGNER, GORDO) 02/15/2022 Sex and Gender Information Value [...] chest pain. 25 tablet 12 05/28/2018 omega 4-uzz-ynw-fish oil 1,000 mg (120 mg-180 mg) capsule [...] Contact Info) Description 12/23/2023 8:30 AM SENIOR TECHNICAL PROGRAM MANAGER Clinical Communication Virtual Review in [address] [address] 12/24/2023 10:30 AM SENIOR TECHNICAL PROGRAM MANAGER Appointment Department of Radiology, [facility], in [place], [place] [address] [place] [phone] Noelle Reyes P.A.-C., P.A. 1 [place] [phone] 12/24/2023 11:00 AM SENIOR TECHNICAL PROGRAM MANAGER Lab Department of Infusion Therapy in [place], [place] [address] [place] [phone] Noelle Reyes P.A.-C., P.A. 1 [place] [phone] 12/24/2023 2:15 PM SENIOR TECHNICAL PROGRAM MANAGER Office Visit Department of Palliative Care in [address] [phone] Aylin Smith, CINDY, C.N.P., M.S.N. [address] [place] [phone] 12/24/2023 4:10 PM SENIOR TECHNICAL PROGRAM MANAGER Office Visit Department of Oncology in [place], [place] [address] [place] [phone] Ned Alegria M.D. [address] [place] [phone] documented as of this encounter Goals Goal Patient Goal Type Associated Problems Recent Progress Patient-Stated? Author Your pain? Symptom Management 9(11/20/2022 2:41 PM SENIOR TECHNICAL PROGRAM MANAGER) No Phyllis-Girma Bush, RCandidoN., O.C.N. Note: [...] documented as of this encounter Care Teams Lease Attendant Relationship Specialty Start Date End Date Elsewhere, Pcp PCP - General Internal Medicine 10/14/22 documented as of this encounter
--- OUTSIDE RECORDS SUMMARY | 2023-12-18 18:05 | XMS_ITS | Encounter Summary ---
Author Name Unknown Organization [facility] Address [address] [place] [address] Care Team Providers Care Fire Sprinkler Service Technician Name Role Phone Elsewhere, Pcp Primary Care Provider Unavailabl e Encounter Details Date Type Department Care Team (Late st Contact Info) Description 01/02/2023 Clinical Communication Department of Oncology in [place], [place] [address] [place] [address] Giorgio Fishman M.D. [address] [place] [phone] Social History Tobacco Use Types Packs/Day Years [...] week 02/15/2022 How often do you attend islam or mormon serv ices? Never 02/15/2022 Do you belong [...] in a group home (including now)? No 02/15/2022 Nutrition Answer Date [...] degree (e.g., MA, MS, Ana Lilia, MEd, JEWEL BEARING MAKER, GORDO) 02/15/2022 Sex and Gender Information Value Date Recorded Sex Assigned at Male 04/23/2018 1:23 PM CDT Gender Identity Male 04/23/2018 1:23 PM CDT Sexual Orientation Straight 04/23/2018 1: 23 PM CDT documented as of this encounter Plan of Treatment Upcoming Encounters Date Type Department Care Team (Late st Contact Info) Description 12/23/2023 8:30 AM MANAGER PACKAGE Clinical Communication Virtual Review in [place], [place] [address] [place] [address] 12/24/2023 10:30 AM MANAGER PACKAGE Appointment Department of Radiology, [facility], in [place], [place] [address] [place] [address] Noelle Reyes PCandidoA.Winston., P.A. [address] [place] [phone] 12/24/2023 11:00 AM MANAGER PACKAGE Lab Department of Infusion Therapy in [place], [place] [address] [place] [phone] Noelle Reyes P.A.-C., P.A. [address] [place] [phone] 12/24/2023 2:15 PM MANAGER PACKAGE Office Visit Department of Palliative Care in [place], [place] [address] [place] [phone] Aylin Smith APRN, C.N.P., M.S.N. [address] [place] [phone] 12/24/2023 4:10 PM MANAGER PACKAGE Office Visit Department of Oncology in [place], [place] [address] [place] [phone] Ned Alegria M.D. [address] [place] [phone] documented as of this encounter Goals Goal Patient Goal Type Associated Problems Recent Progress Patient-Stated? Author Your pain? Symptom Management 9(11/20/2022 2:41 PM MANAGER PACKAGE) No Phyllis-Girma Bush, R.N., O.C.N. Note: 05/24/2021: Pain algorithm completed. [facility] 05/24/2021: Followup 06/07 via portal [...] after initial assessment and spoke with Dr. Fihsman. He was switched over to oxycodone and [...] as of this encounter Care Teams Fire Sprinkler Service Technician Relationship Specialty Start Date End Date Elsewhere, Pcp PCP - General Internal Medicine 10/14/22 documented as of this encounter
--- OUTSIDE RECORDS SUMMARY | 2023-12-18 18:05 | XMS_ITS | Encounter Summary ---
Author Name Unknown Organization [facility] Address [address] [place] [address] Care Team Providers Care Rewind Operator Name Role Phone Elsewhere, Pcp Primary Care Provider Unavailabl e Reason for Visit * Reason Onset Date Comments 01/07/23 [facility] 01/07/2023 Encounter Details Date Type Department Care Team (Latest Contact Info) Description 01/07/2023 Clinical Communication Department of Oncology in [place], [place] [address] [place] [phone] Binta Staples, RAlba 01/07/23 [facility] Social [...] week 02/15/2022 How often do you attend scientology or congregation serv ices? Never 02/15/2022 Do you belong to any clubs o r organizations such as scientology groups, unions, fraternal or athletic groups, or [...] in a nursing home (including now)? No 02/15/2022 Nutrition Answer [...] degree (e.g., MA, MS, Ana Lilia, MEd, EVAPORATIVE COOLER INSTALLER, GORDO) 02/15/2022 Sex and Gender Information Value Date Recorded Sex Assigned at Male 04/23/2018 1:23 PM CDT Gender Identity Male 04/23/2018 1:23 PM CDT Sexual Orientation Straight 04/23/2018 1: 23 PM CDT documented as of this encounter Plan of Treatment Upcoming Encounters Date Type Department Care Team (Late st Contact Info) Description 12/23/2023 8:30 AM FILM TESTS CHECKER Clinical Communication Virtual Review in [place], [place] [address] [place] [address] 12/24/2023 10:30 AM FILM TESTS CHECKER Appointment Department of Rad[facility], [facility], in [place], [place] [address] [place] [address] Noelle Reyes P.A.-C., P.A. [address] [place] [phone] 12/24/2023 11:00 AM FILM TESTS CHECKER Lab Department of Infusion Therapy in [place], [place] [address] [place] [phone] Noelle Reyes P.A.-C., P.A. [address] [place] [phone] 12/24/2023 2:15 PM FILM TESTS CHECKER Office Visit Department of Palliative Care in [place], [place] [address] [place] [phone] Aylin Smith, CINDY, C.N.P., M.S.N. [address] [place] [phone] 12/24/2023 4:10 PM FILM TESTS CHECKER Office Visit Department of Oncology in [place], [place] [address] [place] [phone] Ned Alegria M.D. [address] [place] [phone] documented as of this encounter Goals Goal Patient Goal Type Associated Problems Recent Progress Patient-Stated? Author Your pain? Symptom Management 9(11/20/2022 2:41 PM FILM TESTS CHECKER) No Fee-Girma Bush, R.N., O.C.N. Note: 05/24/2021: [...] EXTERNAL LAB RESULTS Routine 01/06/2023 10:15 AM FILM TESTS CHECKER documented in this encounter Results * (ABNORMAL) Hematology/Oncology - Blood, External Lab Results (01/06/2023 10:15 AM FILM TESTS CHECKER) EXT Hemoglobin 13.9 13.5 - 17.5 OTHER (SPECIFY IN WEB DESIGNER DEVELOPER) EXT Leukocytes 5.88 4.50 - 11.00 OTHER (SPECIFY IN WEB DESIGNER DEVELOPER) EXT Absolute Neutrophil Count 4.02 1.7 - 7.0 OTHER (SPEC RODOLFO IN WEB DESIGNER DEVELOPER) EXT Platelet Count 97(A) 140 - 440 OTHER (SPECIFY IN WEB DESIGNER DEVELOPER) EXT AST 30 12 - 35 OTHER (SPE CIFY IN WEB DESIGNER DEVELOPER) EXT ALT 40 4 - 50 OTHER (SPE CIFY IN WEB DESIGNER DEVELOPER) EXT Alkaline Phosphatase 88 40 - 150 OTHER (SPECIFY IN WEB DESIGNER DEVELOPER) EXT Bilirubin, Total 0.6 0.1 - 1.5 mg/dL OTHER (SPECIFY IN WEB DESIGNER DEVELOPER) EXT Albumin 4.0 3.3 - 5.0 g/dL OTHER (SPECIFY IN WEB DESIGNER DEVELOPER) EXT Sodium 137 135 - 149 mmol/L OTHER (SPECIFY IN WEB DESIGNER DEVELOPER) EXT Potassium 4.2 3.6 - 5.1 OTHER (SPECIFY IN WEB DESIGNER DEVELOPER) EXT Creatinine 0.8 0.5 - 1.5 mg/dL OTHER (SPECIFY IN WEB DESIGNER DEVELOPER) Blood 01/06/2023 10:1 5 AM FILM TESTS CHECKER Historical Provider LAB BLOOD NON ADD-ON OTHER (SPECIFY IN WEB DESIGNER DEVELOPER) N/A documented in this encounter Visit Diagnoses Not on filedocumented in this encounter Additional Health Concerns Assessment Noted Time PHQ-9 Depression Total Score: 7 05/26/20 18 10:22 PM CDT documented as of this encounter Care Teams Rewind Operator Relationship Specialty Start Date End Date Elsewhere, Pcp PCP - General Internal Medicine 10/14/22 documented as of this encounter
--- OUTSIDE RECORDS SUMMARY | 2023-12-18 18:05 | XMS_ITS | Encounter Summary ---
Author Name Unknown Organization [facility] Address [address] [place] [address] Care Team Providers Care Operating Room Specialist Name Role Phone Elsewhere, Pcp Primary Care Provider Unavailabl e Reason for Visit * Outpatient (Routine) - Closed Specialty Diagnoses / Procedures Referred By Contlucas t Referred To Contact Pain Medicine Ella Potter M.D. [address] [place] [phone] Health System Referral ID Status Reason Start Date Expiration Date Visits Re quested Visits Authorized [id number] Closed 10/16/2022 10/15/2025 1 1 Encounter Details Date Type Department Care Team (Late st Contact Info) Description 02/03/2023 2:00 PM CDT Office Visit Division of Pain Medicine in [place], [place] [address] [place] [phone] Ella Potter M.D. Pain Lumbar Myofascial (Primary [...] 02/03/2023 How often do you attend chur [employer] or muslim services? Never 02/03/2023 Do you [...] Date Recorded PHQ-2 Score 0 04/25/2019 [facility] [place] of Occupat ional Health - Occupational [...] (e.g., MA, MS, Ana Lilia, MEd, DIRECTOR ACCOUNT MANAGEMENT, GORDO) 02/15/2022 Sex and Gender Information Value [...] in detail with Dr. Garcia, Pain Medicine Public Health Service Officer, who is in agreement with the above. Ella Potter MD Pain Medicine Fellow I personally spent 25 minutes in care of the patient today. Time includes both non face to face andface to face patient care. documented in this encounter Plan of Treatment Upcoming Encounters Date Type Department Care Team (Late st Contact Info) Description 12/23/2023 8:30 AM GLUER Clinical Communication Virtual Review in [place], [place] 200 [place] [address] 12/24/2023 10:30 AM GLUER Appointment Department of Radiology, [facility], in [address] [phone] Noelle Reyes P.A.EmileC., P.A. [address] [place] [phone] 12/24/2023 11:00 AM GLUER Lab Department of Infusion Therapy in [address] [phone] Noelle Reyes P.A.-C., P.A. [address] [place] [phone] 12/24/2023 2:15 PM GLUER Office Visit Department of Palliative Care in [place], [place] [address] [place] [address] Aylin Smith, CINDY, C.N.P., M.S.N. [address] [place] [phone] 12/24/2023 4:10 PM GLUER Office Visit Department of Oncology in [place], [place] [address] [place] [phone] Ned Alegria M.D. [address] [place] [phone] documented as of this encounter Goals Goal Patient Goal Type Associated Problems Recent Progress Patient-Stated? Author Your pain? Symptom Management 9(11/20/2022 2:41 PM GLUER) No Phyllis-Girma Bush R.N., O.C.N. Note: 05/24/2021: [...] documented as of this encounter Care Teams Operating Room Specialist Relationship Specialty Start Date End Date Elsewhere, Pcp PCP - General Internal Medicine 10/14/22 documented as of this encounter
--- OUTSIDE RECORDS SUMMARY | 2023-12-18 18:05 | XMS_ITS | Encounter Summary ---
Author Name Unknown Organization [facility] Address [address] [place] [address] Care Team Providers Care Associate Music Professor Name Role Phone Elsewhere, Pcp Primary Care Provider Unavailabl e Reason for Visit * Reason Onset Date Comments Pre-visit Intake 01/31/2023 Encounter Details Date Type Department Care Team (Latest Contact Info) Description 01/31/2023 8:30 AM CDT Clinical Communication Virtual Review in [place], [place] 200 [place], [place] [phone] Pre-visit Intake Social History Tobacco Use Types [...] week 02/15/2022 How often do you attend baptism or mormon serv ices? Never 02/15/2022 Do [...] Answer Date Recorded PHQ-2 Score 0 04/25/2019 [facility] [place] of Occupat ional Health - Occupational Stress [...] slept in a halfway (including now)? No 02/15/2022 Nutrition Answer Date [...] degree (e.g., MA, MS, Ana Lilia, MEd, EDGE INKER UPPERS, GORDO) 02/15/2022 Sex and Gender Information Value Date Recorded Sex Assigned at Male 04/23/2018 1:23 PM CDT Gender Identity Male 04/23/2018 1:23 PM CDT Sexual Orientation Straight 04/23/2018 1: 23 PM CDT documented as of this encounter Plan of Treatment Upcoming Encounters Date Type Department Care Team (Late st Contact Info) Description 12/23/2023 8:30 AM PLATFORM INSPECTOR Clinical Communication Virtual Review in [place], [place] [address] [place] [address] 12/24/2023 10:30 AM PLATFORM INSPECTOR Appointment Department of Radiology, [facility], in [place], [place] [address] [place] [address] Noelle Reyes P.A.-C., P.A. [address] [place] [phone] 12/24/2023 11:00 AM PLATFORM INSPECTOR Lab Department of Infusion Therapy in [place], [place] [address] [place] [phone] Noelle Reyes P.A.-C., P.A. [address] [place] [phone] 12/24/2023 2:15 PM PLATFORM INSPECTOR Office Visit Department of Palliative Care in [place], [place] [address] [place] [phone] Aylin Smith, CINDY, C.N.P., M.S.N. [address] [place] [phone] 12/24/2023 4:10 PM PLATFORM INSPECTOR Office Visit Department of Oncology in [place], [place] [address] [place] [phone] Ned Alegria M.D. [address] [place] [phone] documented as of this encounter Goals Goal Patient Goal Type Associated Problems Recent Progress Patient-Stated? Author Your pain? Symptom Management 9(11/20/2022 2:41 PM PLATFORM INSPECTOR) No Fee-Girma Bush, RCandidoN., O.C.N. Note: 05/24/2021: [...] documented as of this encounter Care Teams Associate Music Professor Relationship Specialty Start Date End Date Elsewhere, Pcp PCP - General Internal Medicine 10/14/22 documented as of this encounter
--- OUTSIDE RECORDS SUMMARY | 2023-12-18 18:05 | XMS_ITS | Encounter Summary ---
Author Name Unknown Organization [facility] Address [address] [place] [address] Care Team Providers Care Line Runner Name Role Phone Elsewhere, Pcp Primary Care Provider Unavailabl e Encounter Details Date Type Department Care Team (Late st Contact Info) Description 02/03/2023 9:30 AM CDT Lab Department of Infusion Therapy in [place], [place] [address] [place] [address] Giorgio Fishman M.D. [address] [place] [address] Secondary Malignant Neoplasm Of Lung Laterality Unknown [...] degree (e.g., MA, MS, Ana Lilia, MEd, ACCOUNT ADJUSTER, GORDO) 02/15/2022 Sex and Gender Information Value Date Recorded Sex Assigned at Male 04/23/2018 1:23 PM CDT Gender Identity Male 04/23/2018 1:23 PM CDT Sexual Orientation Straight 04/23/2018 1: 23 PM CDT documented as of this encounter Plan of Treatment Upcoming Encounters Date Type Department Care Team (Late st Contact Info) Description 12/23/2023 8:30 AM SOFTWARE SYSTEMS ANALYST Clinical Communication Virtual Review in [address] [phone] 12/24/2023 10:30 AM SOFTWARE SYSTEMS ANALYST Appointment Department of Radiology, [facility], in [place], [place] [address] [place] [phone] Noelle Reyes P.A.-C., P.A. [address] [place] [phone] 12/24/2023 11:00 AM SOFTWARE SYSTEMS ANALYST Lab Department of Infusion Therapy in [place], [place] [address] [place] [phone] Noelle Reyes P.A.-C., P.A. [address] [place] [phone] 12/24/2023 2:15 PM SOFTWARE SYSTEMS ANALYST Office Visit Department of Palliative Care in [place], [place] [address] [place], [place] [phone] Aylin Smith, CINDY, C.N.P., M.S.N. [address] [place] [phone] 12/24/2023 4:10 PM SOFTWARE SYSTEMS ANALYST Office Visit Department of Oncology in [place], [place] [address] [place] [phone] Ned Alegria M.D. [address] [place] [phone] documented as of this encounter Goals Goal Patient Goal Type Associated Problems Recent Progress Patient-Stated? Author Your pain? Symptom Management 9(11/20/2022 2:41 PM SOFTWARE SYSTEMS ANALYST) No Fee-Girma Bush, RCandidoN., O.C.N. Note: 05/24/2021: Pain algorithm completed. [facility] [...] S 8.2(H) ng/mL 02/03/2023 3:09 PM CDT [facility] Comment: ----REFERENCE VALUE---- <=3.0 (Non-smokers) Some smokers may have elevated CEA, usually <5.0. ----ADDITIONAL INFORMATION---- The testing method is an immunoenzymatic assay manufactured by [employer]. and performed on the [employer] 800. ? Values obtained with different assay methods or kits may be different and cannot be used interchangeably. ? Test results cannot be interpreted as absolute evidence for the presence or absence of malignant disease. Blood (Blood, Venous) 02/03/2023 10:03 AM CDT 02/03/2023 2:18 PM CDT Giorgio Fishman M.D. LAB BLOOD ADD-ON Performing Organization Address [facility]/State/[facility] Co de Phone Number [facility] [address] [place] [address] [facility] [address] [place] [address] * Bilirubin, Direct (02/03/2023 9:37 AM CDT) Bilirubin, Direct, S <0.2 0.0 - 0.3 mg/dL 02/03/2023 11:09 AM CDT DTL Blood (Blood, Venous) 02/03/2023 9:37 AM CDT 02/03/2023 10:38 AM CDT Giorgio C Pitot M.D. LAB BLOOD ADD-ON [facility] [address] [place] [address], [place] DTL [facility] [address] [place] [address] * (ABNORMAL) Comprehensive Metabolic Panel (02/03/2023 9:37 [...] CDT Giorgio Fishman M.D. LAB BLOOD ADD-ON [facility] [address] [place] [address], [facility] [address] [place] [address] * (ABNORMAL) CBC with Differential, Blood (02/03/2023 [...] CDT Giorgio Fishman M.D. LAB BLOOD ADD-ON [facility] [address] [place] [address], [facility] [address] [place] [address] documented in this encounter Visit Diagnoses Diagnosis [...] as of this encounter Care Teams Line Runner Relationship Specialty Start Date End Date Elsewhere, Pcp PCP - General Internal Medicine 10/14/22 documented as of this encounter
--- OUTSIDE RECORDS SUMMARY | 2023-12-18 18:05 | XMS_ITS | Encounter Summary ---
Author Name Unknown Organization [facility] Address [address] [place] [address] Care Team Providers Care Mechanical Adjuster Name Role Phone Elsewhere, Pcp Primary Care Provider Unavailabl e Reason for Visit * Reason Onset Date Comments 02/14/23 Labs only 02/14/2023 Encounter Details Date Type Department Care Team (Latest Contact Info) Description 02/14/2023 Clinical Communication Department of Oncology in [place], [place] [address] [place] [phone] Sandi Celaya M.S.N., R.N. 02/14/23 Labs only [...] (e.g., MA, MS, Ana Lilia, MEd, SENIOR DATA INTEGRATION DEVELOPER, GORDO) 02/15/2022 Sex and Gender Information Value Date Recorded Sex Assigned at Male 04/23/2018 1:23 PM CDT Gender Identity Male 04/23/2018 1:23 PM CDT Sexual Orientation Straight 04/23/2018 1: 23 PM CDT documented as of this encounter Plan of Treatment Upcoming Encounters Date Type Department Care Team (Late st Contact Info) Description 12/23/2023 8:30 AM CLEANER Clinical Communication Virtual Review in [place], [place] [address] [place] [address] 12/24/2023 10:30 AM CLEANER Appointment Department of Radiology, [facility], in [place], [place] [address] [place] [address] Noelle Reyes P.A.-C., P.A. [address] [place] [phone] 12/24/2023 11:00 AM CLEANER Lab Department of Infusion Therapy in [place], [place] [address] [place] [phone] Noelle Reyes P.A.-C., P.A. [address] [place] [phone] 12/24/2023 2:15 PM CLEANER Office Visit Department of Palliative Care in [place], [place] [address] [place] [phone] Aylin Smith APRN, CCandidoN.P., M.S.N. [address] [place] [phone] 12/24/2023 4:10 PM CLEANER Office Visit Department of Oncology in [place], [place] [address] [place] [phone] Ned Alegria M.D. [address] [place] [phone] documented as of this encounter Goals Goal Patient Goal Type Associated Problems Recent Progress Patient-Stated? Author Your pain? Symptom Management 9(11/20/2022 2:41 PM CLEANER) Raisa Ferguson-Girma Bush, RCandidoN., O.C.N. Note: 05/24/2021: [...] 14.2 13.5 - 17.5 OTHER (SPECIFY IN OBSTETRIC ANAESTHETIST) EXT Leukocytes 3.08(A) 4.50 - 11.00 OTHER (SPECIFY IN OBSTETRIC ANAESTHETIST) EXT Absolute Neutrophil Count 1.70 1.7 - 7.0 OTHER (SPECIFY IN OBSTETRIC ANAESTHETIST) EXT Platelet Count 119(A) 140 - 440 OTHER (SPECIFY IN OBSTETRIC ANAESTHETIST) EXT Albumin 4.2 3.3 - 5.0 g/dL OTHER (SPECIFY IN OBSTETRIC ANAESTHETIST) EXT Sodium 138(A) 149 mmol/L OTHER (SPECIFY IN OBSTETRIC ANAESTHETIST) EXT Potassium 4.1 3.6 - 5.1 OTHER (SPECIFY IN OBSTETRIC ANAESTHETIST) Blood 02/14/2023 12:2 0 PM CDT Historical Provider LAB BLOOD NON ADD-ON OTHER (SPECIFY IN OBSTETRIC ANAESTHETIST) N/A documented in this encounter Visit Diagnoses Not on filedocumented in this encounter Additional Health Concerns Assessment Noted Time PHQ-9 Depression Total Score: 7 05/26/20 18 10:22 PM CDT documented as of this encounter Care Teams Mechanical Adjuster Relationship Specialty Start Date End Date Elsewhere, Pcp PCP - General Internal Medicine 10/14/22 documented as of this encounter
--- OUTSIDE RECORDS SUMMARY | 2023-12-18 18:05 | XMS_ITS | Encounter Summary ---
Author Name Unknown Organization [facility] Address [address] [place] [address] Care Team Providers Care Weasand Trimmer Name Role Phone Elsewhere, Pcp Primary Care Provider Unavailabl e Reason for Visit * Reason Onset Date Comments 01/17 labs only 01/17/2023 Encounter Details Date Type Department Care Team (Late st Contact Info) Description 01/17/2023 Clinical Communication Department of Oncology in [place], [place] [address] [place] [phone] Sandra Robbins M.SCandidoN., R.N. [address] [place] [phone] 01/17 labs only Social History Tobacco Use [...] How often do you attend islam or buddhist serv ices? Never 02/15/2022 Do [...] Answer Date Recorded PHQ-2 Score 0 04/25/2019 [facility] [place] of Occupat ional Health - Occupational Stress [...] degree (e.g., MA, MS, Ana Lilia, MEd, MONEY MANAGER, GORDO) 02/15/2022 Sex and Gender Information Value Date Recorded Sex Assigned at Male 04/23/2018 1:23 PM CDT Gender Identity Male 04/23/2018 1:23 PM CDT Sexual Orientation Straight 04/23/2018 1: 23 PM CDT documented as of this encounter Plan of Treatment Upcoming Encounters Date Type Department Care Team (Late st Contact Info) Description 12/23/2023 8:30 AM MEDICAL ASSISTANT DERMATOLOGY Clinical Communication Virtual Review in [place], [place] [address] [place] [address] 12/24/2023 10:30 AM MEDICAL ASSISTANT DERMATOLOGY Appointment Department of Radiology, [facility], in [place], [place] [address] [place] [address] Noelle Reyes P.A.-C., P.A. [address] [place] [phone] 12/24/2023 11:00 AM MEDICAL ASSISTANT DERMATOLOGY Lab Department of Infusion Therapy in [place], [place] [address] [place] [phone] Noelle Reyes P.A.-C., P.A. [address] [place] [phone] 12/24/2023 2:15 PM MEDICAL ASSISTANT DERMATOLOGY Office Visit Department of Palliative Care in [address] [phone] Aylin Smith APRN, C.NCandidoP., M.S.N. [address] [place] [phone] 12/24/2023 4:10 PM MEDICAL ASSISTANT DERMATOLOGY Office Visit Department of Oncology in [address] [phone] Ned Alegria M.D. [address] [place] [phone] documented as of this encounter Goals Goal Patient Goal Type Associated Problems Recent Progress Patient-Stated? Author Your pain? Symptom Management 9(11/20/2022 2:41 PM MEDICAL ASSISTANT DERMATOLOGY) Raisa Ferguson-Girma Bush, RCandidoN., O.C.N. Note: 05/24/2021: Pain algorithm completed. MCCURTAIN [...] documented as of this encounter Care Teams Weasand Trimmer Relationship Specialty Start Date End Date Elsewhere, Pcp PCP - General Internal Medicine 10/14/22 documented as of this encounter
--- OUTSIDE RECORDS SUMMARY | 2023-12-18 18:05 | XMS_ITS | Encounter Summary ---
Author Name Unknown Organization [facility] Address [address] [place] [address] Care Team Providers Care Manager Enrollment Name Role Phone Elsewhere, Pcp Primary Care Provider Unavailabl e Reason for Visit * Reason Onset Date Comments 02/21/23 Labs only 02/21/2023 Encounter Details Date Type Department Care Team (Latest Contact Info) Description 02/21/2023 Clinical Communication Department of Oncology in [place], [place] [address] [place] [phone] Sandi Celaya M.S.N., R.N. 02/21/23 Labs only [...] Answer Date Recorded PHQ-2 Score 0 04/25/2019 [facility] of Occupat ional Health - Occupational [...] degree (e.g., MA, MS, Ana Lilia, MEd, DIE DESIGNER APPRENTICE, GORDO) 02/15/2022 Sex and Gender Information Value Date Recorded Sex Assigned at Male 04/23/2018 1:23 PM CDT Gender Identity Male 04/23/2018 1:23 PM CDT Sexual Orientation Straight 04/23/2018 1: 23 PM CDT documented as of this encounter Plan of Treatment Upcoming Encounters Date Type Department Care Team (Late st Contact Info) Description 12/23/2023 8:30 AM FIELD INSURANCE SALES MANAGER Clinical Communication Virtual Review in [place], [place] [address] [place] [address] 12/24/2023 10:30 AM FIELD INSURANCE SALES MANAGER Appointment Department of Radiology, [facility], in [place], [place] [address] [place] [address] Noelle Reyes P.A.-C., P.A. [address] [place] [phone] 12/24/2023 11:00 AM FIELD INSURANCE SALES MANAGER Lab Department of Infusion Therapy in [place], [place] [address] [place] [phone] Noelle Reyes P.A.-C., P.A. [address] [place] [phone] 12/24/2023 2:15 PM FIELD INSURANCE SALES MANAGER Office Visit Department of Palliative Care in [place], [place] [address] [place] [phone] Aylin Smith APRN, CCandidoN.P., M.S.N. [address] [place] [phone] 12/24/2023 4:10 PM FIELD INSURANCE SALES MANAGER Office Visit Department of Oncology in [place], [place] [address] [place] [phone] Ned Alegria M.D. [address] [place] [phone] documented as of this encounter Goals Goal Patient Goal Type Associated Problems Recent Progress Patient-Stated? Author Your pain? Symptom Management 9(11/20/2022 2:41 PM FIELD INSURANCE SALES MANAGER) Raisa Ferguson-Girma Bush, RCandidoN., O.C.N. Note: 05/24/2021: [...] 14.2 13.5 - 17.5 OTHER (SPECIFY IN SUPERVISOR TRAIN OPERATIONS) EXT Leukocytes 3.45(A) 4.50 - 11.00 OTHER (SPECIFY IN SUPERVISOR TRAIN OPERATIONS) EXT Absolute Neutrophil Count 2.20 1.7 - 7.0 OTHER (SPECIFY IN SUPERVISOR TRAIN OPERATIONS) EXT Platelet Count 108(A) 140 - 440 OTHER (SPECIFY IN SUPERVISOR TRAIN OPERATIONS) EXT AST 41(A) 0.1 - 1.5 OTHER (SPECIFY IN SUPERVISOR TRAIN OPERATIONS) EXT ALT 53(A) 4 - 50 OTHER (SPECIFY IN SUPERVISOR TRAIN OPERATIONS) EXT Alkaline Phosphatase 92 40 - 150 OTHER (SPECIFY IN SUPERVISOR TRAIN OPERATIONS) EXT Bilirubin, Total 0.6 0.1 - 1.5 mg/dL OTHER (SPECIFY IN SUPERVISOR TRAIN OPERATIONS) EXT Albumin 4.0 3.3 - 5.0 g/dL OTHER (SPECIFY IN SUPERVISOR TRAIN OPERATIONS) EXT Sodium 136 135 - 149 mmol/L OTHER (SPECIFY IN SUPERVISOR TRAIN OPERATIONS) EXT Potassium 4.0 3.6 - 5.1 OTHER (SPECIFY IN SUPERVISOR TRAIN OPERATIONS) EXT Creatinine 0.7 0.5 - 1.5 mg/dL OTHER (SPECIFY IN SUPERVISOR TRAIN OPERATIONS) Blood 02/21/2023 8:50 AM CDT Historical Provider LAB BLOOD NON ADD-ON OTHER (SPECIFY IN SUPERVISOR TRAIN OPERATIONS) N/A documented in this encounter Visit Diagnoses Not on filedocumented in this encounter Additional Health Concerns Assessment Noted Time PHQ-9 Depression Total Score: 7 05/26/20 18 10:22 PM CDT documented as of this encounter Care Teams Manager Enrollment Relationship Specialty Start Date End Date Elsewhere, Pcp PCP - General Internal Medicine 10/14/22 documented as of this encounter
--- OUTSIDE RECORDS SUMMARY | 2023-12-18 18:06 | XMS_ITS | Encounter Summary ---
Author Name Unknown Organization [facility] Address [address] [place] [address] Care Team Providers Care Filter Tender Name Role Phone Elsewhere, Pcp Primary Care Provider Unavailabl e Reason for Visit * Reason Onset Date Comments 12/23/22 labs 12/23/2022 Encounter Details Date Type Department Care Team (Late st Contact Info) Description 12/23/2022 Clinical Communication Department of Oncology in [place], [place] [address] [place] [phone] Sandra Robbins M.SCandidoN., R.N. [address] [place] [phone] 12/23/22 labs Social History Tobacco Use Types [...] week 02/15/2022 How often do you attend yarsanism or zoroastrian serv ices? Never 02/15/2022 Do you belong [...] Answer Date Recorded PHQ-2 Score 0 04/25/2019 [facility] of Occupat ional Health - Occupational Stress [...] degree (e.g., MA, MS, Ana Lilia, MEd, CIGARETTE FILTER INSPECTOR, GORDO) 02/15/2022 Sex and Gender Information Value Date Recorded Sex Assigned at Male 04/23/2018 1:23 PM CDT Gender Identity Male 04/23/2018 1:23 PM CDT Sexual Orientation Straight 04/23/2018 1: 23 PM CDT documented as of this encounter Plan of Treatment Upcoming Encounters Date Type Department Care Team (Late st Contact Info) Description 12/23/2023 8:30 AM TIMBER INSPECTOR Clinical Communication Virtual Review in [place], [place] [address] [place] [address] 12/24/2023 10:30 AM TIMBER INSPECTOR Appointment Department of Radiology, [facility], in [place], [place] [address] [place] [phone] BosNoelle jiang P.A.-C., P.A. [address] [place] [phone] 12/24/2023 11:00 AM TIMBER INSPECTOR Lab Department of Infusion Therapy in [place], [place] [address] [place] [phone] Noelle Reyes P.A.-C., P.A. [address] [place] [phone] 12/24/2023 2:15 PM TIMBER INSPECTOR Office Visit Department of Palliative Care in [address] [phone] Aylin Smith APRN, C.NCandidoP., M.S.N. [address] [place] [phone] 12/24/2023 4:10 PM TIMBER INSPECTOR Office Visit Department of Oncology in [place], [place] [address] [place] [phone] Ned Alegria M.D. [address] [place] [phone] documented as of this encounter Goals Goal Patient Goal Type Associated Problems Recent Progress Patient-Stated? Author Your pain? Symptom Management 9(11/20/2022 2:41 PM TIMBER INSPECTOR) No Phyllis-Girma Bush, R.N., O.C.N. Note: 05/24/2021: Pain algorithm completed. [facility] [place]: Followup 06/07 via portal per patient [...] documented as of this encounter Care Teams Filter Tender Relationship Specialty Start Date End Date Elsewhere, Pcp PCP - General Internal Medicine 10/14/22 documented as of this encounter
--- OUTSIDE RECORDS SUMMARY | 2023-12-18 18:06 | XMS_ITS | Encounter Summary ---
Author Name Unknown Organization [facility] Address [address] [place] [address] Care Team Providers Care Compressed Gas Tester Name Role Phone Elsewhere, Pcp Primary Care [...] without IV Contrast Giorgio Fishman M.D. [address] [place] [address] 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 [address] [place] [address] 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 [address] [place] [address] [facility] Referral ID Status Reason Start Date Expiration Date Visits Re quested Visits Authorized [id number] Closed 01/02/2023 01/02/2024 1 1 NT PARTNER Encounter Details Date Type Department Care Team (Late st Contact Info) Description 01/02/2023 Orders Only Department of Oncology in [place], [place] [address] [place] [address] Giorgio Fishman M.D. [address] [place] [phone] Secondary Malignant Neoplasm Of Lung Laterality Unknown [...] week 02/15/2022 How often do you attend druze or religion serv ices? Never 02/15/2022 Do you belong to any clubs o r organizations such as druze groups, unions, fraternal or athletic groups, or [...] in a skilled nursing (including now)? No 02/15/2022 Nutrition Answer Date [...] degree (e.g., MA, MS, Ana Lilia, MEd, ETL DATA ARCHITECT, GORDO) 02/15/2022 Sex and Gender Information Value Date Recorded Sex Assigned at Male 04/23/2018 1:23 PM CDT Gender Identity Male 04/23/2018 1:23 PM CDT Sexual Orientation Straight 04/23/2018 1: 23 PM CDT documented as of this encounter Plan of Treatment Upcoming Encounters Date Type Department Care Team (Late st Contact Info) Description 12/23/2023 8:30 AM TALENT PARTNER Clinical Communication Virtual Review in [place], [place] [address] [place] [address] 12/24/2023 10:30 AM TALENT PARTNER Appointment Department of Radiology, [facility], in [place], [place] [address] [place] [phone] Noelle Reyes P.A.-C., P.A. [address] [place] [phone] 12/24/2023 11:00 AM TALENT PARTNER Lab Department of Infusion Therapy in [place], [place] [address] [place] [phone] Noelle Reyes P.A.-C., P.A. [address] [place] [phone] 12/24/2023 2:15 PM TALENT PARTNER Office Visit Department of Palliative Care in [address] [phone] Aylin Smith, CINDY, C.N.P., M.S.N. [address] [place] [phone] 12/24/2023 4:10 PM TALENT PARTNER Office Visit Department of Oncology in [address] [phone] Ned Alegria M.D. 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 Author Your pain? Symptom Management 9(11/20/2022 2:41 PM TALENT PARTNER) No Fee-Girma Bush R.N., O.C.N. Note: 05/24/2021: [...] response to interval treatment Giorgio Fishman M.D. [facility] CT PROCEDURES * (ABNORMAL) CEA (Carcinoembryonic Antigen) (02/03/2023 10:03 AM CDT) Carcinoembryonic Ag (CEA), S 8.2(H) ng/mL 02/03/2023 3:09 PM CDT [facility] Comment: ----REFERENCE VALUE---- <=3.0 (Non-smokers) Some smokers may have elevated CEA, usually <5.0. ----ADDITIONAL INFORMATION---- The testing method is an immunoenzymatic assay manufactured by [employer]. and performed on the [employer] DxI 800. ? Values obtained with different assay methods or kits may be different and cannot be used interchangeably. ? Test results cannot be interpreted as absolute evidence for the presence or absence of malignant disease. Blood (Blood, Venous) 02/03/2023 10:03 AM CDT 02/03/2023 2:18 PM CDT Giorgio Fishman M.D. LAB BLOOD ADD-ON [facility] [address] [place] [address] [facility] [address] [place] [address] * Bilirubin, Direct (02/03/2023 9:37 AM CDT) Pathologist [facility] Bilirubin, Direct, S <0.2 0.0 - 0.3 mg/dL 02/03/2023 11:09 AM CDT DTL Blood (Blood, Venous) 02/03/2023 9:37 AM CDT 02/03/2023 10:38 AM CDT Giorgio Fishman M.D. LAB BLOOD ADD-ON [facility] [address] [place] [address], [facility] [address] [place] [address] * (ABNORMAL) Comprehensive Metabolic Panel (02/03/2023 9:37 [...] Fishman M.D. LAB BLOOD ADD-ON [facility] [address] [place] [address], [facility] DTL [facility] [address] [place] [address] * (ABNORMAL) CBC with Differential, Blood (02/03/2023 [...] CDT Giorgio Fishman M.D. LAB BLOOD ADD-ON [facility] [address] [place] [address], [facility] DTL [facility] [address] [place] [address] documented in this encounter Visit Diagnoses Diagnosis [...] documented as of this encounter Care Teams Compressed Gas Tester Relationship Specialty Start Date End Date Elsewhere, Pcp PCP - General Internal Medicine 10/14/22 documented as of this encounter
--- OUTSIDE RECORDS SUMMARY | 2023-12-18 18:06 | XMS_ITS | Encounter Summary ---
Author Name Unknown Organization [facility] Address [address] [place] [address] Care Team Providers Care Copier Repair Technician Name Role Phone Elsewhere, Pcp Primary Care Provider Unavailabl e Reason for Visit * Reason Onset Date Comments 12/27/22 Labs only 12/27/2022 Encounter Details Date Type Department Care Team (Latest Contact Info) Description 12/27/2022 Clinical Communication Department of Oncology in [place], [place] [address] [place] [address] Sandra Robbins M.SCandidoN., R.N. [address] [place] [address] 12/27/22 Labs only Social History Tobacco Use [...] week 02/15/2022 How often do you attend congregation or hindu serv ices? Never 02/15/2022 Do you belong [...] 04/25/2019 [facility] of Occupat ional Health [...] degree (e.g., MA, MS, Ana Lilia, MEd, EQUAL OPPORTUNITY DIRECTOR, GORDO) 02/15/2022 Sex and Gender Information Value Date Recorded Sex Assigned at Male 04/23/2018 1:23 PM CDT Gender Identity Male 04/23/2018 1:23 PM CDT Sexual Orientation Straight 04/23/2018 1: 23 PM CDT documented as of this encounter Plan of Treatment Upcoming Encounters Date Type Department Care Team (Late st Contact Info) Description 12/23/2023 8:30 AM SOUND EDITOR Clinical Communication Virtual Review in [place], [place] [address] [place] [address] 12/24/2023 10:30 AM SOUND EDITOR Appointment Department of Radiology, [facility], in [place], [place] [address] [place] [phone] Noelle Reyes P.A.-C., P.A. [address] [place] [phone] 12/24/2023 11:00 AM SOUND EDITOR Lab Department of Infusion Therapy in [place], [place] [address] [place] [phone] Noelle Reyes P.A.-C., P.A. [address] [place] [phone] 12/24/2023 2:15 PM SOUND EDITOR Office Visit Department of Palliative Care in [place], [place] [address] [place] [phone] Aylin Smith APRN CCandidoNCandidoP., M.S.N. [address] [place] [phone] 12/24/2023 4:10 PM SOUND EDITOR Office Visit Department of Oncology in [place], [place] [address] [place] [phone] Ned Alegria M.D. [address] [place] [phone] documented as of this encounter Goals Goal Patient Goal Type Associated Problems Recent Progress Patient-Stated? Author Your pain? Symptom Management 9(11/20/2022 2:41 PM SOUND EDITOR) Raisa Ferguson-Girma Bush, R.N., O.C.N. Note: 05/24/2021: Pain algorithm completed. HASKELL [...] documented as of this encounter Care Teams Copier Repair Technician Relationship Specialty Start Date End Date Elsewhere, Pcp PCP - General Internal Medicine 10/14/22 documented as of this encounter
--- NOTE | 2023-12-18 18:07 | CRLHL7_ITS ---
For Patients: As a result of the Century Cures Act, medical imaging exams and procedure reports are released immediately into your electronic medical record. You may view this report before your referring provider. If you have questions, please contact your health care provider. INDICATION: Diarrhea. History of metastatic rectal cancer. TECHNIQUE: Multiplanar CT examination of the abdomen and pelvis was performed without the use of intravenous contrast. COMPARISON: CT abdomen pelvis 12/08/2023. FINDINGS: Lower chest: Redemonstrated pulmonary masses involving the bilateral lung bases, grossly unchanged since 12/08/2023, again compatible with metastatic disease. Liver: Grossly unchanged rounded hyperdense lesion right hepatic lobe, again consistent with a prior ablation cavity. Previously identified hepatic masses are less conspicuous on today`s noncontrast examination. Gallbladder: Under distended. Biliary: Within normal limits. Pancreas: Within normal limits. Spleen: Previously identified splenic lesions are inconspicuous on today`s noncontrast examination. Adrenal Glands: Normal. Kidneys: Normal size and symmetrically enhancing. No obstructive calculi or hydronephrosis. Ureters: Unremarkable. Bladder: Unremarkable. Bowel: Postsurgical changes from prior rectal resection and small bowel anastomosis in the right lower quadrant. No bowel obstruction. Loops of small bowel appear full with fluid, compatible with diarrheal illness. No bowel wall thickening. Pelvic organs: Unremarkable. Peritoneum: Trace pelvic free fluid. No pneumoperitoneum. Vessels: Normal. Patency of the vasculature is not assessed on today`s noncontrast examination. No significant atherosclerotic disease. Lymph Nodes: Decreased conspicuity of the soft tissues in conglomeration near the nicole hepatis, stable lymphadenopathy. Abdominal Wall/Soft Tissues: Unremarkable. Bones: Unremarkable. IMPRESSION: Limited evaluation due to the lack of intravenous contrast. 1. Nondistended loops of small bowel appear filled with fluid, which can be seen with diarrheal illness. No significant bowel wall thickening or associated inflammatory changes. Otherwise, no acute abdominopelvic pathology. 2. Decreased conspicuity of the hepatic and splenic masses due to lack of intravenous contrast. These were better characterized on the prior contrast enhanced examination from 12/08/2023. 3. Grossly unchanged pulmonary metastases in this patient with given history of rectal cancer. Please note that all CT scans at this facility use dose modulation, iterative reconstruction, and/or weight-based dosing when appropriate to reduce radiation dose to as low as reasonably achievable. Dictated by Panda Camara MD @ 12/18/2023 7:36:56 PM (Electronically Signed)
[2023-12-18 18:13] VITALS: PULSE 111
[2023-12-18 18:13] LABS: Basophils Percent Auto 0.3 % (0.0-3.0); Eosinophils Percent Auto 0.5 % (0.0-7.0); HCO3 VBG 19 mmol/L (21-28); Hematocrit 37.5 % (37.0-53.0); Hemoglobin* 12.2 gm/dL (13.5-17.5); Immature Granulocytes Pct Auto 0.4 %; Lactate* 1.7 mmol/L (0.5-1.9); Lymphocytes Percent Auto 10.5 % (20-44); Mean Corpuscular HGB Conc 33 gm/dL (32-36); Mean Corpuscular Hemoglobin 30 pg (26-34); Mean Corpuscular Volume 92 fL (80-100); Monocytes Percent Auto 7.2 % (0.0-11.0); Neutrophils Percent Auto 81.1 % (42.0-72.0); PCO2 VBG 37 mmHG (40-50); PO2 VBG 63.3 mmHG (25-47); Platelet Count* 104 K/uL (140-440); White Blood Count* 12.73 K/uL (4.50-11.00); pH VBG 7.306 (7.32-7.43)
[2023-12-18 18:19] LABS: Slide Review Reflex No
[2023-12-18 18:29] LABS: Albumin* 3.4 g/dL (3.3-5.0); Chloride* 114 mmol/L (96-114); Potassium* 3.2 mmol/L (3.6-5.1); Sodium* 137 mmol/L (135-149)
[2023-12-18 18:31] LABS: Creatinine* 0.4 mg/dL (0.5-1.5); Estimated Glomerular Filt Rate 137 ml/min
[2023-12-18 18:32] LABS: Alanine Aminotransferase* 127 U/L (4-50); Alkaline Phosphatase* 480 U/L (40-150); Anion Gap 9 mEq/L (7-15); Aspartate Amino Transferase* 52 U/L (12-35); Bilirubin Total* 0.5 mg/dL (0.1-1.5); Blood Urea Nitrogen* 2 mg/dL (5-24); Carbon Dioxide* 14 mmol/L (20-32); Glucose* 90 mg/dL (60-115); Total Protein* 5.6 g/dL (6.0-8.3)
[2023-12-18 18:33] LABS: Calcium* 8.2 mg/dL (8.4-10.6)
[2023-12-18 18:35] LABS: C Reactive Protein* 0.7 mg/dL (0.5-1.0)
[2023-12-18 19:00] VITALS: BP 116/93; RESP 16; TEMP 36.6; O2SAT 99
[2023-12-18 19:02] VITALS: BP 124/87; RESP 16; TEMP 36.4; O2SAT 99; BMI 24.7
--- NOTE | 2023-12-18 19:07 | P.IMHP_ITS ---
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 Known to have severe panitumumab skin toxicity. Last received treatment on 12/08/2023. Also notes increased flatus and nausea since starting this regimen in September 2023. From -06 December 2023 patient and and 7-year-old son had a ?stomach flu.? Seemed to resolve for patient and rest of family. Patient received chemotherapy on 12/08/2023. Again developed the skin toxicity. Nothing unusual. Starting on 12/11/2023 patient started having diarrhea. The diarrhea was such that would every 8 or drink seem to ?go right through me? within 15 minutes. He has been unable to maintain his hydration and nutritional intake since. [facility] and IV potassium supplementation. Serum potassium levels have been running between 2.9 and 3.1. This morning his serum potassium level is down to 2.6. Has attempted some potassium oral supplementations. Has attempted loperamide, Lomotil, Pepto-Bismol. Has significantly decrease number of medications he takes. Not certain that any of the medications he does take orally are actually being absorbed. He has stopped taking his as needed hydromorphone. Continues to take his methadone 5 mg twice daily, but again uncertain of the absorption. Denies fevers, rigors, diaphoresis. Denies blood loss. Had been taking dexa methasone 4 mg once daily prior to the onset of the diarrhea. Has received stress doses of dexamethasone intravenously, 10 mg, on 12/15/2029November, and 12/17/2023. Also on 08 December when he last had his chemotherapy he was id given 10 mg of dexamethasone intravenously. On 11 December he was administered 4 mg of dexamethasone intravenously. Did see his oncologist on 12/17/2023. Stool collection for C diff on 12/16/2023 was negative. Stool panel for various bacteria and virus and parasites obtained on 12/16/2023, with results still pending. Not included in that panel is microsporidium PCR. I did add this today after conferring with the hospital laboratory. Review of Systems Status of ROS: Reports: 10 or more systems reviewed and unremarkable except as noted in History and below Narrative: He indicates in no uncertain terms that he has not had STDs in the past and is absolutely certain he does not have any STDs at this time. No recent trauma, travel. No contact with other animals. Other than being immunocompromised, no other risk factors identified. Complains of thirst and feeling cold. States has had tachycardia for several weeks. 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 Has taken the last week off due to his current condition. Lives with his and their 7-year-old son. As I review his records [facility] today was 80.7 kg. On the 16 of December his weight was 79.8 kg. On the 08 of December his weight was 83.5 kg. On the 24 of November his weight was 84.4 kg. On the September his weight was 84.6 kg. On the 06 of September his weight was 86.2 kg. On the 26 of July weight was 90.5 kg. On the 07/18/2023 weight was 91.3 kg. On 12 December 2022 weight was 91.7 kg. Thus, he has lost roughly 11 kg over the last year, over the last month he has lost roughly 4 kg. He has lost roughly 3 kg since the 12/08/2023. [facility] Medical History Diarrhea ?R19.7 - Diarrhea, unspecified (ICD-10) Rectal cancer ?C20 - Malignant neoplasm of rectum (ICD-10) 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 ?R94.138 - Abnormal results of other function studies of peripheral nervous system (ICD-10) Chronic pain disorder ?G89.4 - Chronic pain syndrome (ICD-10) Anxiety ?F41.9 - Anxiety disorder, unspecified (ICD-10) Neuroma of thoracic region ?D36.14 - Benign neoplasm of peripheral nerves and autonomic nervous system of thorax (ICD-10) Hyponatremia ?E87.1 - Hypo-osmolality and hyponatremia (ICD-10) Gastroenteritis ?K52.9 - Noninfective gastroenteritis and colitis, unspecified (ICD-10) Dehydration ?E86.0 - Dehydration (ICD-10) Acute coronary syndrome ?I24.9 - Acute ischemic heart disease, unspecified (ICD-10) Fracture of proximal end of humerus ?S42.209A - Unspecified fracture of upper end of unspecified humerus, initial encounter for closed fracture (ICD-10) Coronary vasospasm ?I20.1 - Angina pectoris with documented spasm (ICD-10) Chest wall pain ?R07.89 - Other chest pain (ICD-10) Surgical History S/P radiation therapy ?Z92.3 - Personal history of irradiation (ICD-10) Social History Narrative: with children. 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 Enjoys [id number]. What is your current living situation?: I presently have a place to live Problems where you live: no known problems Problems where you live details: n/a In the past 12 months, utilities in danger of being shut off: no In past 12 months, lack of transportation kept you from medical appts, meetings, work, or getting things needed for daily living: no In the past 12 mos, have been you worried that your food would run out before you had money to buy more?: never true In the past 12 mos, the food you bought just didn't last and you didn't have money to buy more?: never true Highest level of school completed/degree received: Master's degree Smoking Status: Never smoker How often do you have a drink containing alcohol: monthly or less How many standard drinks containing alcohol do you have on a typical day: 1 or 2 AUDIT-C Alcohol total score: 1 Non-prescribed substance use: marijuana (any form) Caffeine: Yes (2 cups of coffee) How often does anyone, including family, friends and others, physically hurt you : never How often does anyone, including family, friends and others, insult or talk down to you: never How often does anyone, including family, friends and others, threaten you with harm: never How often does anyone, including family, friends and others, scream or curse at you: never service: No Meds Home Medications and Allergies Home Medications Medication Instructions Recorded Confirmed Type Lactobacillus acidophilus 1 cap PO DAILY 05/16/22 12/18/23 History acetaminophen 500 mg capsule 500 mg PO Q6H PRN 05/16/22 12/18/23 History ascorbic acid (vitamin C) 500 mg 500 mg PO DAILY 05/16/22 12/18/23 History tablet cholecalciferol (vitamin D3) 125 5,000 unit PO DAILY 05/16/22 12/18/23 History mcg (5,000 unit) capsule multivitamin 1 tab PO DAILY 05/16/22 12/18/23 History omega 0-wzi-jcf-fish oil 1,000 mg 2 cap PO DAILY 05/16/22 12/18/23 History (120 mg-180 mg) capsule (Fish Oil) pantoprazole 40 mg tablet,delayed 40 mg PO DAILY 05/16/22 12/18/23 History release turmeric 100 mg-ronaldo 150 1 cap PO DAILY 05/16/22 12/18/23 History mg-olive 50 mg-oreg 150 mg-capryl capsule amlodipine 10 mg tablet 10 mg PO DAILY 09/26/23 12/18/23 History ibuprofen 200 mg capsule 600 mg PO Q6H PRN 09/26/23 12/18/23 History melatonin 10 mg capsule 10 mg PO HS 09/26/23 12/18/23 History nitroglycerin 0.4 mg sublingual 0.4 mg sublingual Q5-15M PRN 09/26/23 12/18/23 History tablet (Nitrostat) hydromorphone 4 mg tablet 4 mg PO Q4-6H PRN 09/30/23 12/18/23 History (Dilaudid) doxycycline hyclate 100 mg capsule 100 mg PO BID PRN 10/14/23 12/18/23 History dexamethasone 4 mg tablet 4 mg PO DAILY 12/08/23 12/18/23 History pregabalin 25 mg capsule 25 mg PO QDAY 12/08/23 12/18/23 History clobetasol 0.05 % shampoo 1 applic topical DAILY PRN 12/18/23 12/18/23 History hydrocortisone 2.5 % topical 1 applic topical BID PRN 12/18/23 12/18/23 History ointment methadone 5 mg tablet 2.5 mg PO BID chronic pain 12/18/23 12/18/23 History olanzapine 5 mg tablet 5 mg PO HS PRN chemotherapy 12/18/23 12/18/23 History related nausea potassium chloride 20 mEq 20 meq PO DAILY 12/18/23 12/18/23 History tablet,extended release prochlorperazine maleate 10 mg 10 mg PO TID PRN nausea or vomiting 12/18/23 12/18/23 History tablet Allergies Allergy/AdvReac Type Severity Reaction Status Date / Time capecitabine Allergy Severe Chest Pain Verified 12/16/23 10:25 Exam Narrative: Exam Narrative: [facility] His is also present. Patient appears tired. Does not appear to be in any acute distress. Vision and hearing are grossly normal. Alert and oriented to self, place, time, situation. Friendly, articulate, cooperative. Has a diffuse erythematous maculopapular rash which has been deemed secondary to his chemotherapeutic agent, panitumumab. Chemotherapy-induced alopecia areata. Cold extremities. External auditory canals and tympanic membranes normal. Pupils equally round and reactive to light and accommodation. Conjugate gaze. No icterus or conjunctival injection. Oropharynx is benign save dry buccal mucosa. Dentition in fair repair. Neck is supple. Midline trachea. No JVD, hepatojugular reflux, or carotid bruits. No head neck lymphadenopathy. Lungs are clear to auscultation. No wheezing, rhonchi, rales. Chest wall excursions are full. No CVA tenderness. Heart tones with regular rhythm, tachycardia. Normal S1-S2. No murmur, gallop, or rub. PMI not laterally displaced. Abdomen with active bowel sounds, soft, nontender. No rebound or guarding. Moves all 4 extremities. Independent transfer, station, gait. Const: Vital Signs, click to edit/add: Vital Signs - 24 hr 12/18/23 18:13 Pulse Rate 111 H Hospitalist - H&P: Result Labs Labs: Short CBC 12/18/23 Range/Units 18:00 WBC 12.73 H (4.50-11.00) K/uL Hgb 12.2 L (13.5-17.5) gm/dL Hct 37.5 (37.0-53.0) % Plt Count 104 L (140-440) K/uL [facility] 12/18/23 18:00 Sodium 137 Potassium 3.2 L Chloride 114 Carbon Dioxide 14 L BUN 2 L Creatinine 0.4 L Glucose 90 Calcium 8.2 L Liver Function 12/18/23 Range/Units 18:00 Total Bilirubin 0.5 (0.1-1.5) mg/dL AST 52 H (12-35) U/L ALT 127 H (4-50) U/L Alkaline Phosphatase 480 H (40-150) U/L Albumin 3.4 (3.3-5.0) g/dL ECG Attestation: I personally reviewed and interpreted this ECG as follows: ECG interpretation date: 12/18/23 Prior ECG tracings: not available for review Interpretation: Normal sinus rhythm. Tachycardia with rate of 111. No ST segment depressions. No U-waves. Imaging CT abdomen and pelvis: Attestation: I have reviewed the pertinent imaging results. Radiologist's impression: IMPRESSION: Limited evaluation due to the lack of intravenous contrast. 1. Nondistended loops of small bowel appear filled with fluid, which can be seen with diarrheal illness. No significant bowel wall thickening or associated inflammatory changes. Otherwise, no acute abdominopelvic pathology. 2. Decreased conspicuity of the hepatic and splenic masses due to lack of intravenous contrast. These were better characterized on the prior contrast enhanced examination from 12/08/2023. 3. Grossly unchanged pulmonary metastases in this patient with given history of rectal cancer. Assessment and Plan Assessment and plan (1) Diarrhea: Problem comment: - onset 12/11/2023 - stool for bacteria, viral, parasitic etiologies is pending. Micro spur radium was not included in that panel. I added it to the panel today. - dehydration secondary to diarrhea Status: Acute (2) Hypokalemia: Problem comment: - IV and oral supplementation Status: Acute (3) Rectal cancer: Status: Acute (4) Metastasis to lung: Status: Acute (5) Metastases to the liver: Status: Acute (6) Acneiform rash: Status: Acute (7) Adenocarcinoma of rectum: Problem comment: Metastatic to liver and lung, EDWIGE Status: Acute (8) Weakness: Status: Acute (9) Anxiety: Problem comment: Follows with palliative care team at [facility] Status: Acute Plan 1. Reviewed impression with patient and . 2. Admit and treat with IV fluids, IV potassium supplementation, oral potassium supplementation. 3. Continue with IV dexamethasone to prevent adrenal insufficiency. 4. Monitor input and output, daily weight, orthostatic blood pressures and pulses, laboratory studies. 5. Advise patient for the time being to avoid lactose containing products. Will ask dietitian to see patient and in regard to the diarrhea, hypokalemia, and significant weight loss. 6. Continue to await results of stool studies. 7. Continue to work with his oncologist as warranted. 8. Patient and agreeable to above stated plans and recommendations.
[2023-12-18] MEDS: MORPHINE 10 MG/0.5 ML ORAL SOLN 4 MG PO ×2 (19:29→22:28)
[2023-12-18] MEDS: POTASSIUM BICARB 25 MEQ EFFERVESCENT TAB PO ×3 (19:29→22:28)
--- NOTE | 2023-12-18 19:45 | PC.NURSE ---
End of Shift: patient is alert and oriented x4. VSS. Patient is sinus Tachy. up to floor at 1625 accompanied by spouse.
[2023-12-18] MEDS: POTASSIUM CHLORIDE 40 MEQ in 0.9 % SODIUM CHLORIDE 1000 ml 1,000 ML 100 MEQ IV (19:58)
[2023-12-18 19:59] LABS: Appearance Urine Slightly Cloudy (Clear); Bilirubin Urine Negative (Negative); Blood Urine Trace-lysed (Negative); Color Urine Yellow (Yellow); Glucose Urine Negative (Negative); Ketones Urine Negative (Negative); Leukocyte Esterase Urine Negative (Negative); Nitrite Urine Negative (Negative); Protein Urine Negative (Negative); Specific Gravity Urine >= 1.030 (1.000-1.030); Urobilinogen Urine 0.2 (0.2-1.0); pH Urine 5.5 (5.0-8.5)
[2023-12-18 20:38] LABS: Calcium Oxalate Crystals Urine Moderate
[2023-12-18] MEDS: MELATONIN 3 MG TABLET 9 MG PO (22:01)
[2023-12-18] MEDS: DIPHENOXYLATE-ATROP 2.5-0.025 TABLET 1 TAB PO (22:01)
[2023-12-18] MEDS: dexAMETHasone 4 MG/ML VIAL IV (22:01)
[2023-12-18] MEDS: METHADONE 5 MG TABLET 2.5 MG PO (22:01)
[2023-12-18] MEDS: SODIUM CHLORIDE 0.9 % (FLUSH) 10 ML SYRINGE 5 ML IVF (22:02)
[2023-12-18 23:00] VITALS: BP 129/89; PULSE 102; RESP 16; TEMP 36.6; O2SAT 99
[2023-12-19] VITALS (8 sets, daily range): BP systolic 117–136; BP diastolic 82–92; PULSE 99–115; RESP 16–20; TEMP 36.3–36.6; O2SAT 94–99; BMI 25.0
[2023-12-19] MEDS: MORPHINE 10 MG/0.5 ML ORAL SOLN 4 MG PO ×2 (03:19→06:49)
[2023-12-19] MEDS: SODIUM CHLORIDE 0.9 % (FLUSH) 10 ML SYRINGE 5 ML IVF ×2 (03:19→05:43)
[2023-12-19] MEDS: ONDANSETRON 2 MG/ML inj 4 MG IVP (03:19)
[2023-12-19] MEDS: POTASSIUM CHLORIDE 40 MEQ in 0.9 % SODIUM CHLORIDE 1000 ml 1,000 ML 125 MEQ IV (05:41)
[2023-12-19 05:57] LABS: Lactate* 0.9 mmol/L (0.5-1.9)
[2023-12-19 06:00] LABS: Hematocrit 35.2 % (37.0-53.0); Hemoglobin* 11.2 gm/dL (13.5-17.5); Mean Corpuscular HGB Conc 32 gm/dL (32-36); Mean Corpuscular Hemoglobin 29 pg (26-34); Mean Corpuscular Volume 91 fL (80-100); Platelet Count* 93 K/uL (140-440); Red Blood Count 3.86 m/uL (4.30-5.90); White Blood Count* 10.94 K/uL (4.50-11.00)
[2023-12-19 06:01] LABS: Slide Review Reflex No
[2023-12-19 06:05] LABS: HCO3 VBG 25 mmol/L (21-28); PCO2 VBG 41 mmHG (40-50); PO2 VBG 63.3 mmHG (25-47); pH VBG 7.387 (7.32-7.43)
--- NOTE | 2023-12-19 06:19 | PC.NURSE ---
[id number] Pt tolerating oral and IV potassium replacement throughout shift. only had 1 BM last evening, no other episodes of diarrhea as reported by pt. pt states he is having urine output which is an improvement. one episode of nausea, no emesis, reliefe with prn zofran.
[2023-12-19 06:32] LABS: Chloride* 109 mmol/L (96-114); Sodium* 136 mmol/L (135-149)
[2023-12-19 06:35] LABS: Anion Gap 5 mEq/L (7-15); Carbon Dioxide* 22 mmol/L (20-32); Creatinine* 0.4 mg/dL (0.5-1.5); Est. Creatinine Clearance* 248.39; Estimated Glomerular Filt Rate 137 ml/min; Glucose* 128 mg/dL (60-115)
[2023-12-19 06:36] LABS: Magnesium* 1.4 mg/dL (1.5-2.6); Phosphorus* 3.1 mg/dL (2.5-4.5)
[2023-12-19 06:38] LABS: C Reactive Protein* 0.7 mg/dL (0.5-1.0)
[2023-12-19 06:44] LABS: Blood Urea Nitrogen* < 2 mg/dL (5-24)
[2023-12-19 07:06] LABS: Thyroid Stimulating Hormone* 0.329 uIU/mL (0.270-4.20)
[2023-12-19] MEDS: LACTOBACILLUS ACIDOPHILUS 1 TABLET 1 TAB PO ×3 (09:52→18:08)
[2023-12-19] MEDS: METHADONE 5 MG TABLET 2.5 MG PO ×2 (09:52→21:33)
[2023-12-19] MEDS: OMEPRAZOLE 20 MG CAPSULE DR 40 MG PO (10:00)
--- NOTE | 2023-12-19 12:04 | P.IMPN_ITS ---
Progress Note: A&P Assessment and plan (1) Diarrhea: Problem details: - onset 12/11/2023 - stool for bacteria, viral, parasitic etiologies is pending - dehydration secondary to diarrhea - continue IVFs, follow electrolytes - having good relief with probiotics, Lomotil, morphine - working on plan for home to minimize symptoms Status: Acute (2) Hypokalemia: Problem details: - IV and oral supplementation, K normal at 4.0 on 12/19 - also receiving IV Magnesium supplementation Status: Acute (3) Adenocarcinoma of rectum: Problem details: - with mets to liver and lung Status: Acute Plan - per above - SCDs and Lupillo hopson for ppx - likely home tomorrow - updated at bedside, questions answered Subjective Date Seen: 12/19/23 Interval history: Luis was admitted to the hospital on 12/18 for intractable diarrhea with resultant hypokalemia and hypomagnesemia. This morning, he is feeling better. Earlier this week, he was given Loperamide and Lomotil, didn't use either of them enough to know if they were helpful. He has had good relief with morphine, but would prefer to not be on this chcf. Tolerated breakfast without any resultant diarrhea. No lightheadedness or dizziness. No abdominal pain. K is 4.0 today, Magnesium 1.4 Exam Narrative: Exam Narrative: GEN: Alert and oriented, sitting comfortably in bed HEENT: Normal external ears, alopecia, EOMIs bilaterally, no scleral icterus CV: Sinus tachycardia (HR 90-100s during my exam), no concerning murmurs R: LCTA bilaterally without concerning wheezing, air movement adequate Ab: soft, no ttp Psych: Appropriate Const: Vital Signs, click to edit/add: Vital Signs - 24 hr 12/18/23 18:13 12/18/23 19:00 12/18/23 19:02 Temperature 97.8 F 97.5 F L Pulse Rate 111 H Pulse Rate [Pulse Oximeter] Respiratory Rate 16 16 Blood Pressure [Ri ght Arm] 116/93 H 124/87 Pulse Oximetry 99 99 Oxygen Delivery Me thod Room Air Room Air 12/18/23 19:02 12/18/23 23:00 12/18/23 23:00 Temperature 97.9 F Pulse Rate Pulse Rate [Pulse Oximeter] 102 H Respiratory Rate 16 16 Blood Pressure [Ri ght Arm] 129/89 Pulse Oximetry 99 99 99 Oxygen Delivery Me thod Room Air Room Air Room Air 12/19/23 03:00 12/19/23 07:00 12/19/23 07:00 Temperature 97.3 F L Pulse Rate Pulse Rate [Pulse Oximeter] 99 99 Respiratory Rate 16 16 16 [facility]82 Pulse Oximetry 99 96 Oxygen Delivery Me thod Room Air Room Air 12/19/23 07:00 Temperature 98 F Pulse Rate Pulse Rate [Pulse Oximeter] 99 Respiratory Rate 16 Blood Pressure [facility] 122/82 Pulse Oximetry 96 Oxygen Delivery Me thod Room Air Labs Labs: Laboratory Results - last 24 hr 12/18/23 12/18/23 12/18/23 18:00 19:00 19:24 WBC 12.73 H RBC 4.10 L Hgb 12.2 L Hct 37.5 MCV 92 MCH 30 MCHC 33 RDW Coeff of [place] 18.0 H Plt Count 104 L Neut % (Auto) 81.1 H Lymph % (Auto) 10.5 L [place] % (Auto) 7.2 Eos % (Auto) 0.5 Baso % (Auto) 0.3 Neut # (Auto) 10.30 H Lymph # (Auto) 1.30 [place] # (Auto) 0.90 Eos # (Auto) 0.10 Baso # (Auto) 0.00 Abs Immat Gran (auto) 0.10 Imm/Tot Granulo (auto) 0.4 VBG pH 7.306 L VBG pCO2 37 L VBG pO2 63.3 H VBG HCO3 19 L Sodium 137 Potassium 3.2 L Chloride 114 Carbon Dioxide 14 L Anion Gap 9 BUN 2 L Creatinine 0.4 L Estimated Creat Clear Estimated GFR 137 Glucose 90 Lactate 1.7 Calcium 8.2 L Phosphorus Magnesium Total Bilirubin 0.5 AST 52 H ALT 127 H Alkaline Phosphatase 480 H C-Reactive Protein 0.7 Total Protein 5.6 L Albumin 3.4 TSH 1.180 Urine Color Yellow Urine Appearance Slightly Cloudy A Urine pH 5.5 Ur Specific [place] >= 1.030 Urine Protein Negative Urine Glucose (UA) Negative Urine Ketones Negative Urine Blood Trace-lysed A Urine Nitrite Negative Urine Bilirubin Negative Urine Urobilinogen 0.2 Ur Leukocyte Esterase Negative Urine RBC 5-10 A Urine WBC 2-5 Ur Squamous Epith Cells None Calcium Oxalate Crystal Moderate A Other Sediment Urine Bacteria None Lab Acknowledgement Test Added 12/19/23 05:45 WBC 10.94 RBC 3.86 L Hgb 11.2 L Hct 35.2 L MCV 91 MCH 29 MCHC 32 RDW Coeff of [place] Plt Count 93 L Neut % (Auto) Lymph % (Auto) [place] % (Auto) Eos % (Auto) Baso % (Auto) Neut # (Auto) Lymph # (Auto) [place] # (Auto) Eos # (Auto) Baso # (Auto) Abs Immat Gran (auto) Imm/Tot Granulo (auto) VBG pH 7.387 VBG pCO2 41 VBG pO2 63.3 H VBG HCO3 25 Sodium 136 Potassium 4.0 Chloride 109 Carbon Dioxide 22 Anion Gap 5 L BUN < 2 L Creatinine 0.4 L Estimated Creat Clear 248.39 Estimated GFR 137 Glucose 128 H Lactate 0.9 Calcium 8.0 L Phosphorus 3.1 Magnesium 1.4 L Total Bilirubin AST ALT Alkaline Phosphatase C-Reactive Protein 0.7 Total Protein Albumin TSH 0.329 Urine Color Urine Appearance Urine pH Ur Specific [place] Urine Protein Urine Glucose (UA) Urine Ketones Urine Blood Urine Nitrite Urine Bilirubin Urine Urobilinogen Ur Leukocyte Esterase Urine RBC Urine WBC Ur Squamous Epith Cells Calcium Oxalate Crystal Other Sediment Urine Bacteria Lab Acknowledgement
[2023-12-19] MEDS: DIPHENOXYLATE-ATROP 2.5-0.025 TABLET 1 TAB PO ×2 (13:05→21:32)
[2023-12-19] MEDS: 0.9 % SODIUM CHLORIDE 1000 ml 1,000 ML 125 ML IV ×2 (13:59→23:21)
[2023-12-19] MEDS: MAGNESIUM IV 2 GM/50 ML PIGGYBACK IVPB (14:59)
[2023-12-19] MEDS: LOPERAMIDE HCL 2 MG CAPSULE PO (18:08)
[2023-12-19] MEDS: POTASSIUM BICARB 25 MEQ EFFERVESCENT TAB PO (18:08)
[2023-12-19] MEDS: MORPHINE 20 MG/ML **CONCENTRATE** ORAL 4 MG PO ×2 (18:55→22:26)
--- NOTE | 2023-12-19 19:31 | PC.NURSE ---
Patient had large loose stool this evening around 1800. Patient had not had a stool today until this point. Made attempt today to wean on bowel medication. Morphine given this evening per the eMAR and patient request.
[2023-12-19] MEDS: MELATONIN 3 MG TABLET 9 MG PO (21:33)
[2023-12-20] VITALS (11 sets, daily range): BP systolic 119–130; BP diastolic 78–87; PULSE 89–120; RESP 18–20; TEMP 36.4–36.8; O2SAT 95–96
[2023-12-20] MEDS: MORPHINE 20 MG/ML **CONCENTRATE** ORAL 4 MG PO ×5 (02:32→22:22)
[2023-12-20] MEDS: LOPERAMIDE HCL 2 MG CAPSULE PO ×4 (05:58→21:22)
--- NOTE | 2023-12-20 06:14 | PC.NURSE ---
End of shift [id number] ? Pt oriented x 4, cooperative to care, and fatigued. Pt up independently in room. Reported 2 loose stools at start of shift, denied loose stools during remainder of shift. Pt requested he be left to sleep as able. Tolerating fluids and ice chips and RA. VSS, afebrile, denies SOB, nausea, dizziness. Pt observed to sleep during shift, appears to be resting comfortably and end of shift. ?
[2023-12-20 06:46] LABS: Basophils Absolute Auto 0.03 K/uL (0.00-0.30); Basophils Percent Auto 0.3 % (0.0-3.0); Eosinophils Absolute Auto 0.12 K/uL (0.00-0.50); Eosinophils Percent Auto 1.2 % (0.0-7.0); Hematocrit 36.9 % (37.0-53.0); Hemoglobin* 11.9 gm/dL (13.5-17.5); Immature Granulocytes Abs Auto 0.04 K/uL (0.00-0.30); Immature Granulocytes Pct Auto 0.4 %; Lymphocytes Percent Auto 11.2 % (20-44); Mean Corpuscular HGB Conc 32 gm/dL (32-36); Mean Corpuscular Hemoglobin 30 pg (26-34); Mean Corpuscular Volume 92 fL (80-100); Monocytes Percent Auto 6.4 % (0.0-11.0); Neutrophils Percent Auto 80.5 % (42.0-72.0); Platelet Count* 97 K/uL (140-440); RDW Coefficient of Variation % 17.7 % (11.5-15.5); White Blood Count* 9.92 K/uL (4.50-11.00)
[2023-12-20 06:47] LABS: Slide Review Reflex No
[2023-12-20 06:50] LABS: Chloride* 106 mmol/L (96-114)
[2023-12-20 06:51] LABS: Potassium* 3.2 mmol/L (3.6-5.1); Sodium* 136 mmol/L (135-149)
[2023-12-20 06:53] LABS: Anion Gap 5 mEq/L (7-15); Aspartate Amino Transferase* 73 U/L (12-35); Bilirubin Total* 0.5 mg/dL (0.1-1.5); Carbon Dioxide* 25 mmol/L (20-32); Creatinine* 0.4 mg/dL (0.5-1.5); Est. Creatinine Clearance* 248.39; Estimated Glomerular Filt Rate 137 ml/min; Total Protein* 5.3 g/dL (6.0-8.3)
[2023-12-20 06:54] LABS: Alanine Aminotransferase* 169 U/L (4-50); Alkaline Phosphatase* 424 U/L (40-150); Blood Urea Nitrogen* 2 mg/dL (5-24); Glucose* 96 mg/dL (60-115); Magnesium* 1.9 mg/dL (1.5-2.6)
[2023-12-20] MEDS: dexAMETHasone 4 MG/ML VIAL IV (07:56)
[2023-12-20] MEDS: POTASSIUM BICARB 25 MEQ EFFERVESCENT TAB PO ×4 (07:56→21:22)
[2023-12-20] MEDS: LACTOBACILLUS ACIDOPHILUS 1 TABLET 1 TAB PO ×3 (07:56→17:50)
[2023-12-20] MEDS: 0.9 % SODIUM CHLORIDE 1000 ml 1,000 ML 125 ML IV (07:57)
[2023-12-20] MEDS: METHADONE 5 MG TABLET 2.5 MG PO ×2 (08:00→21:22)
[2023-12-20] MEDS: DIPHENOXYLATE-ATROP 2.5-0.025 TABLET 1 TAB PO ×3 (08:01→21:22)
[2023-12-20] MEDS: OMEPRAZOLE 20 MG CAPSULE DR 40 MG PO (08:01)
[2023-12-20] MEDS: SODIUM CHLORIDE 0.9 % (FLUSH) 10 ML SYRINGE 5 ML IVF (08:02)
--- NOTE | 2023-12-20 12:22 | PM.IMPN1 ---
Progress Note: A&P Assessment and plan (1) Diarrhea: Problem details: - onset 12/11/2023 - Cdiff negative, norovirus positive (patient had gastroenteritis around 12/06/23), other viral,bacterial, and parasitic etiologies negative, stool culture pending - dehydration secondary to diarrhea, improving. Stop IVF today, encourage po fluids, continue to follow and replace electrolytes - 2/3 having ongoing diarrhea, although improving. Schedule loperamide 2mg ACHS. Continue probiotics, lomotil, prn bismuth and morphine. We discussed being more aggressive with prn medications as he can back off if he develops constipation. Status: Acute (2) Hypokalemia: Problem details: - 2/3 potassium is 3.2. Increased oral supplementation scheduled to TID now and giving an extra dose of oral KCl today, recheck in am Status: Acute (3) Adenocarcinoma of rectum: Problem details: - with mets to liver and lung Status: Chronic (4) Hypomagnesemia: Problem details: - was given IV magnesium supplementation yesterday Status: Resolved Plan - per above - SCDs and Lupillo hopson for ppx - staying [facility] for treatment of diarrhea and hypokalemia, likely home tomorrow - updated at bedside, questions answered Time Spent With Patient Total time spent: Today I spent 40 minutes rounding on the patient. Greater than 50% included discussing care with the patient and his , the team, reviewing data, updating and managing the care plan. Subjective Time Seen by Provider: 09:55 Date Seen: 12/20/23 Interval history: Luis tells me he is feeling a bit better, but did still have 2 loose BMs overnight, 1 very soft formed stool this morning, lots of flatus. He is able to eat without problem. He is better able to keep up with oral fluids now and feels better hydrated. Reviewed with patient recent history of viral gastroenteritis, chemo on 12/08, diarrhea for 10 days, and freq/[facility] visits for IVF/IV electrolytes. We reviewed together his labs and current medicaitons. We discussed plan of care for diarrhea and electrolyte abnormalities as well as potential barriers to discharge and anticipated length of stay. Patient's and young son came in late morning and I went back and reviewed the above again with his , Dolores. Exam Narrative: Exam Narrative: General: No acute distress. Awake, alert, oriented. No pallor. No jaundice. Oropharynx: Clear. Mucous membranes slightly dry. Cardiovascular: Regular rate and rhythm. No murmurs, gallops, or rubs. Respiratory: Clear to auscultation bilaterally. No wheezes or crackles. Abdomen: Bowel sounds present. Soft, nondistended, nontender. Extremities: No pedal edema. Const: Vital Signs, click to edit/add: Vital Signs - 24 hr 12/19/23 15:00 12/19/23 15:00 12/19/23 15:00 Temperature 98 F Pulse Rate Pulse Rate [Pulse Oximeter] 99 99 Pulse Rate [orthos tatic lying Pulse Oximeter] Pulse Rate [orthos tatic sitting] Pulse Rate [orthos tatic standing] Respiratory Rate 18 18 18 Blood Pressure [Ri ght Arm] 122/82 Blood Pressure [or thostatic lying Ri ght Arm] Blood Pressure [or thostatic sitting] Blood Pressure [or thostatic standing ] Pulse Oximetry 94 94 Oxygen Delivery Me thod Room Air Room Air 12/19/23 17:00 12/19/23 18:13 12/19/23 19:00 Temperature 97.9 F Pulse Rate 111 H Pulse Rate [Pulse Oximeter] 107 H Pulse Rate [orthos tatic lying Pulse Oximeter] 105 H Pulse Rate [orthos tatic sitting] 107 H Pulse Rate [orthos tatic standing] 115 H Respiratory Rate 20 Blood Pressure [Ri ght Arm] 136/86 Blood Pressure [or thostatic lying Ri ght Arm] 128/85 Blood Pressure [or thostatic sitting] 117/92 H Blood Pressure [or thostatic standing ] 125/86 Pulse Oximetry 96 Oxygen Delivery Me thod Room Air 12/19/23 23:00 12/20/23 03:00 12/20/23 07:52 Temperature 97.8 F 97.9 F Pulse Rate Pulse Rate [Pulse Oximeter] 89 98 Pulse Rate [orthos tatic lying Pulse Oximeter] Pulse Rate [orthos tatic sitting] Pulse Rate [orthos tatic standing] Respiratory Rate 20 20 Blood Pressure [Ri ght Arm] 120/78 127/87 Blood Pressure [or thostatic lying Ri ght Arm] Blood Pressure [or thostatic sitting] Blood Pressure [or thostatic standing ] Pulse Oximetry 96 96 95 Oxygen Delivery Me thod Room Air Room Air Room Air 12/20/23 11:00 12/20/23 11:50 12/20/23 11:50 Temperature 97.6 F Pulse Rate Pulse Rate [Pulse Oximeter] 95 98 Pulse Rate [orthos tatic lying Pulse Oximeter] Pulse Rate [orthos tatic sitting] Pulse Rate [orthos tatic standing] Respiratory Rate 18 18 20 Blood Pressure [Ri ght Arm] 125/80 Blood Pressure [or thostatic lying Ri ght Arm] Blood Pressure [or thostatic sitting] Blood Pressure [or thostatic standing ] Pulse Oximetry 105 H 95 Oxygen Delivery Me thod Room Air Room Air Labs Labs: Laboratory Results - last 24 hr 12/20/23 06:07 WBC 9.92 RBC 4.00 L Hgb 11.9 L Hct 36.9 L MCV 92 MCH 30 MCHC 32 RDW Coeff of [place] 17.7 H Plt Count 97 L Neut % (Auto) 80.5 H Lymph % (Auto) 11.2 L [place] % (Auto) 6.4 Eos % (Auto) 1.2 Baso % (Auto) 0.3 Neut # (Auto) 8.00 H Lymph # (Auto) 1.10 [place] # (Auto) 0.60 Eos # (Auto) 0.12 Baso # (Auto) 0.03 Abs Immat Gran (auto) 0.04 Imm/Tot Granulo (auto) 0.4 Sodium 136 Potassium 3.2 L Chloride 106 Carbon Dioxide 25 Anion Gap 5 L BUN 2 L Creatinine 0.4 L Estimated Creat Clear 248.39 Estimated GFR 137 Glucose 96 Calcium 8.0 L Magnesium 1.9 Total Bilirubin 0.5 AST 73 H ALT 169 H Alkaline Phosphatase 424 H Total Protein 5.3 L Albumin 3.0 L
[2023-12-20] MEDS: HEPARIN 500 UNIT/5 ML SYRINGE IVF (14:48)
--- NOTE | 2023-12-20 19:24 | PC.NURSE ---
Patient alert and oriented all shift. Sinus tachy on tele, other vital signs stable. Reports having soft BMs during the day however did report one loose BM after dinner. NS discontinued, port a cath heparin locked. Port a cath dressing clean dry and intact Tolerating diet. No nausea and vomiting. No dizziness. Skin intact.
[2023-12-20] MEDS: MELATONIN 3 MG TABLET 9 MG PO (21:22)
[2023-12-21 01:40] VITALS: PULSE 107
[2023-12-21 03:00] VITALS: BP 122/86; PULSE 109; RESP 20; TEMP 36.6; O2SAT 96
[2023-12-21] MEDS: MORPHINE 20 MG/ML **CONCENTRATE** ORAL 4 MG PO ×2 (03:07→06:25)
[2023-12-21] MEDS: HEPARIN 500 UNIT/5 ML SYRINGE IVF ×2 (05:55→10:15)
--- NOTE | 2023-12-21 05:58 | PC.NURSE ---
End of shift [id number] ? Pt oriented x 4, cooperative to care, and fatigued. Pt up independently in room. Reported 3?loose stools at start of shift, denied loose stools during remainder of shift. Pt shared thought that his dinner choice triggered the loose stools. Pt requested he be left to sleep as able. Tolerating fluids and ice chips and RA. VSS, afebrile, denies SOB, nausea, dizziness. Pt reported increased pain in rectum from acute diarrhea, reports using cream to ease symptoms. Pt shared concerns relating to blood possibly in stool. RN observed BM with no blood noted. Pt reported seeing the majority of blood when he wipes. 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
[2023-12-21 06:23] LABS: Ionized Calcium* 1.15 mmol/L (1.11-1.30)
[2023-12-21 06:29] LABS: Basophils Percent Auto 0.3 % (0.0-3.0); Eosinophils Percent Auto 0.9 % (0.0-7.0); Immature Granulocytes Pct Auto 0.4 %; Lymphocytes Percent Auto 8.5 % (20-44); Mean Corpuscular HGB Conc 32 gm/dL (32-36); Mean Corpuscular Hemoglobin 30 pg (26-34); Mean Corpuscular Volume 93 fL (80-100); Monocytes Percent Auto 6.7 % (0.0-11.0); Neutrophils Percent Auto 83.2 % (42.0-72.0); Platelet Count* 105 K/uL (140-440); RDW Coefficient of Variation % 17.5 % (11.5-15.5); Red Blood Count 3.99 m/uL (4.30-5.90); Slide Review Reflex No; White Blood Count* 11.41 K/uL (4.50-11.00)
[2023-12-21 06:41] LABS: Chloride* 102 mmol/L (96-114); Potassium* 3.3 mmol/L (3.6-5.1); Sodium* 136 mmol/L (135-149)
[2023-12-21 06:43] LABS: Creatinine* 0.4 mg/dL (0.5-1.5); Est. Creatinine Clearance* 248.39; Estimated Glomerular Filt Rate 137 ml/min
[2023-12-21 06:44] LABS: Alanine Aminotransferase* 180 U/L (4-50); Alkaline Phosphatase* 424 U/L (40-150); Anion Gap 6 mEq/L (7-15); Aspartate Amino Transferase* 74 U/L (12-35); Bilirubin Total* 0.5 mg/dL (0.1-1.5); Blood Urea Nitrogen* 4 mg/dL (5-24); Calcium* 8.2 mg/dL (8.4-10.6); Carbon Dioxide* 28 mmol/L (20-32); Glucose* 99 mg/dL (60-115); Total Protein* 5.2 g/dL (6.0-8.3)
[2023-12-21 06:45] LABS: Magnesium* 1.7 mg/dL (1.5-2.6)
[2023-12-21 07:00] VITALS: BP 134/92; PULSE 104; RESP 18; TEMP 36.3; O2SAT 98
[2023-12-21] MEDS: OMEPRAZOLE 20 MG CAPSULE DR 40 MG PO (08:12)
[2023-12-21] MEDS: LACTOBACILLUS ACIDOPHILUS 1 TABLET 1 TAB PO (08:12)
[2023-12-21] MEDS: DIPHENOXYLATE-ATROP 2.5-0.025 TABLET 1 TAB PO (08:12)
[2023-12-21] MEDS: POTASSIUM BICARB 25 MEQ EFFERVESCENT TAB 50 MEQ PO (08:13)
[2023-12-21] MEDS: LOPERAMIDE HCL 2 MG CAPSULE PO ×2 (08:13→08:42)
[2023-12-21] MEDS: SODIUM CHLORIDE 0.9 % (FLUSH) 10 ML SYRINGE 5 ML IVF ×2 (08:14→10:15)
[2023-12-21] MEDS: dexAMETHasone 4 MG/ML VIAL IV (08:14)
[2023-12-21 08:15] VITALS: PULSE 107
[2023-12-21] MEDS: METHADONE 5 MG TABLET 2.5 MG PO (08:25)
[2023-12-21] MEDS: BISMUTH SUBSALICYLATE 525 MG/30 ML SUSP PO (08:42)
--- NOTE | 2023-12-21 08:44 | P.DS_ITS ---
DS: Providers Provider Time Seen by Provider: 07:30 Date Seen: 12/21/23 Date of admission: 12/18/23 17:54 Primary care physician: Afsaneh Carlton MD Admitting Clinician: Drake Swenson MD Consults: 12/18/23 18:18 Consult to Nutrition [CONS] Routine Comment: Reason for consult:: Diarrhea > 3 days Comment: diarrhea, met rectal cancer Attending Physician on discharge: Felicia Rios MD Date of Discharge: 12/21/23 DS: Diagnosis Discharge Diagnosis (1) Weakness: Status: Resolved Problem details: - Secondary to electrolyte abnormalities, dehydration (2) Dehydration: Status: Resolved (3) Diarrhea: Status: Acute Problem details: - onset 12/11/2023 - Cdiff negative, norovirus positive (patient had gastroenteritis around 12/06/23), other viral,bacterial, and parasitic etiologies negative, stool culture pending - dehydration secondary to diarrhea, improving. Stop IVF today, encourage po fluids, continue to follow and replace electrolytes - 2/3 having ongoing diarrhea, although improving. Schedule loperamide 2mg ACHS. Continue probiotics, lomotil, prn bismuth and morphine. We discussed being more aggressive with prn medications as he can back off if he develops constipation. - 2/4 patient had a good day yesterday, but had 3-4 loose stools in the evening/overnight. Noted that dinner seems to exacerbate things. We discussed food choices and I suggested that he eat an evening meal earlier and make it similar foods to breakfast/lunch. We will increase loperamide to 4 mg ACHS and schedule a peptobismol dose for the evening. Continue probiotic, lomotil, morphine as scheduled. Use peptobismol prn loose BM. Patient desires to go home today and wishes to follow up with cancer center tomorrow for labs and check in, which I think is reasonable since he is able to stay hydrated and take in adequate nutrition without IVF or IV medicaiton. Also, his electrolytes have improved and are stable. (4) Hypokalemia: Status: Acute Problem details: - 2/3 potassium is 3.2. Increased oral supplementation scheduled to TID now and giving an extra dose of oral KCl today - 2/4 K is 3.3. I have doubled oral supplementation and will not give any extra doses. He will f/u with cancer center tomorrow (Mon) and Fri for labs. (5) Hypomagnesemia: Status: Resolved Problem details: - was given IV magnesium supplementation 12/19/23 for Mg of 1.4. Mg came up to 1.9, then trended down to 1.7. I gave him 1 g IV Mg today since he continues to have some loose BMs and oral Mg may exacerbate that. Will follow up with the cancer center for labs. 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 (9) Sinus tachycardia: Status: Chronic Problem details: - Has had sinus tachycardia 110's to 120's with occasional lowers since at least 2021. EKGs from 12/18 and 12/19 reassuring. DS: Summary Hospital Course Hospital Course: Per H&P: Luis Tabares is a 43 year old man with known EDWIGE metastatic rectal cancer to liver, lung, and bone, initially diagnosed and treated as stage IIIB disease and 2018, has had extensive prior treatments, now on palliative irinotecam/panitumumab. Known to have severe panitumumab skin toxicity. Last received treatment on 12/08/2023. Also notes increased flatus and nausea since starting this regimen in September 2023. From -06 December 2023 patient and and 7-year-old son had a ?stomach flu.? Seemed to resolve for patient and rest of family. Patient received chemotherapy on 12/08/2023. Again developed the skin toxicity. Nothing unusual. Starting on 12/11/2023 patient started having diarrhea. The diarrhea was such that would every 8 or drink seem to ?go right through me? within 15 minutes. He has been unable to maintain his hydration and nutritional intake since. [facility] for [facility] and IV potassium supplementation. Serum potassium levels have been running between 2.9 and 3.1. This morning his serum potassium level is down to 2.6. Has attempted some potassium oral supplementations. Has attempted loperamide, Lomotil, Pepto-Bismol. Has significantly decrease number of medications he takes. Not certain that any of the medications he does take orally are actually being absorbed. He has stopped taking his as needed hydromorphone. Continues to take his methadone 5 mg twice daily, but again uncertain of the absorption. Denies fevers, rigors, diaphoresis. Denies blood loss. Had been taking dexamethasone 4 mg once daily prior to the onset of the diarrhea. Has received stress doses of dexamethasone intravenously, 10 mg, on 12/15/2029November, and 12/17/2023. Also on 08 December when he last had his chemotherapy he was id given 10 mg of dexamethasone intravenously. On 11 December he was administered 4 mg of dexamethasone intravenously. Did see his oncologist on 12/17/2023. Stool collection for C diff on 12/16/2023 was negative. Stool panel for various bacteria and virus and parasites obtained on 12/16/2023 Not included in that panel is microsporidium PCR. This panel came back negative with the exception of norovirus. Notably, norovirus PCR can stay positive for up to 90 days, according to the CDC website. He was admitted for electrolyte abnormalities, dehydration, and diarrhea. Please see diagnoses above for details. He has improved, electrolytes are improved and stable, dehydration resolved, and diarrhea has improved, but is not completely resolved. Patient strongly desires discharge today, which I think is reasonable given he is improving and stable and can follow up in the cancer center for labs tomorrow. NOTE TO ONCOLOGY: if ongoing diarrhea, could consider repeat c diff PCR and starting cholestyramine. Time Spent with Patient Time attestation: Total time spent providing and/or coordinating discharge services: Exam Narrative: Exam Narrative: General: No acute distress. Awake, alert, oriented. No pallor. No jaundice. Oropharynx: Clear. Mucous membranes moist. Cardiovascular: Mild tachycardia, regular. No murmurs, gallops, or rubs. Respiratory: Clear to auscultation bilaterally. No wheezes or crackles. Abdomen: Bowel sounds present. Soft, nondistended, nontender. Extremities: No pedal edema. Const: Vital Signs, click to edit/add: Vital Signs - 24 hr 12/20/23 11:00 12/20/23 11:50 12/20/23 11:50 Temperature 97.6 F Pulse Rate Pulse Rate [Pulse Oximeter] 95 98 Pulse Rate [orthos tatic lying Pulse Oximeter] Pulse Rate [orthos tatic sitting] Pulse Rate [orthos tatic standing] Respiratory Rate 18 18 20 Blood Pressure [Ri ght Arm] 125/80 Blood Pressure [or thostatic lying Ri ght Arm] Blood Pressure [or thostatic sitting] Blood Pressure [or thostatic standing ] Pulse Oximetry 105 H 95 Oxygen Delivery Me thod Room Air Room Air 12/20/23 15:00 12/20/23 15:00 12/20/23 15:00 Temperature Pulse Rate Pulse Rate [Pulse Oximeter] 112 H 112 H Pulse Rate [orthos tatic lying Pulse Oximeter] Pulse Rate [orthos tatic sitting] Pulse Rate [orthos tatic standing] Respiratory Rate 20 20 Blood Pressure [Ri ght Arm] 122/85 Blood Pressure [or thostatic lying Ri ght Arm] Blood Pressure [or thostatic sitting] Blood Pressure [or thostatic standing ] Pulse Oximetry 95 Oxygen Delivery Nj thod Room Air Room Air 12/20/23 15:09 12/20/23 16:50 12/20/23 17:00 Temperature 98.1 F Pulse Rate 111 H Pulse Rate [Pulse Oximeter] Pulse Rate [orthos tatic lying Pulse Oximeter] 120 H Pulse Rate [orthos tatic sitting] 116 H Pulse Rate [orthos tatic standing] 114 H Respiratory Rate Blood Pressure [Ri ght Arm] Blood Pressure [or thostatic lying Ri ght Arm] 119/84 Blood Pressure [or thostatic sitting] 120/87 Blood Pressure [or thostatic standing ] 119/80 Pulse Oximetry Oxygen Delivery Me thod 12/20/23 19:00 12/20/23 23:00 12/21/23 01:40 Temperature 98.2 F Pulse Rate 107 H Pulse Rate [Pulse Oximeter] 118 H Pulse Rate [orthos tatic lying Pulse Oximeter] Pulse Rate [orthos tatic sitting] Pulse Rate [orthos tatic standing] Respiratory Rate 20 20 Blood Pressure [Ri ght Arm] 130/83 Blood Pressure [or thostatic lying Ri ght Arm] Blood Pressure [or thostatic sitting] Blood Pressure [or thostatic standing ] Pulse Oximetry 95 95 Oxygen Delivery Nj thod Room Air Room Air 12/21/23 03:00 Temperature 97.8 F Pulse Rate Pulse Rate [Pulse Oximeter] 109 H Pulse Rate [orthos tatic lying Pulse Oximeter] Pulse Rate [orthos tatic sitting] Pulse Rate [orthos tatic standing] Respiratory Rate 20 Blood Pressure [Ri ght Arm] 122/86 Blood Pressure [or thostatic lying Ri ght Arm] Blood Pressure [or thostatic sitting] Blood Pressure [or thostatic standing ] Pulse Oximetry 96 Oxygen Delivery Me thod Room Air DS: Data Data Completed and Pending Labs on day of discharge: Labs from last 24 hours 12/21/23 05:50 WBC 11.41 H RBC 3.99 L Hgb 12.0 L Hct 37.0 MCV 93 MCH 30 MCHC 32 RDW Coeff of [place] 17.5 H Plt Count 105 L Neut % (Auto) 83.2 H Lymph % (Auto) 8.5 L [place] % (Auto) 6.7 Eos % (Auto) 0.9 Baso % (Auto) 0.3 Neut # (Auto) 9.50 H Lymph # (Auto) 1.00 [place] # (Auto) 0.80 Eos # (Auto) 0.10 Baso # (Auto) 0.00 Abs Immat Gran (auto) 0.00 Imm/Tot Granulo (auto) 0.4 Sodium 136 Potassium 3.3 L Chloride 102 Carbon Dioxide 28 Anion Gap 6 L BUN 4 L Creatinine 0.4 L Estimated Creat Clear 248.39 Estimated GFR 137 Glucose 99 Calcium 8.2 L Ionized Calcium Nacho 1.15 Magnesium 1.7 Total Bilirubin 0.5 AST 74 H ALT 180 H Alkaline Phosphatase 424 H Total Protein 5.2 L Albumin 3.0 L 12/18/2023 EKG: Sinus tachycardia, 108 beats per minute, otherwise normal EKG. 12/19/2023 EKG: Normal sinus rhythm, 91 beats per minute, normal EKG. Stool studies: Stl C. diff Tox B Gene 12/16/23 13:56 Negative (Negative) Stl C. diff [id number] 12/16/23 13:56 Presumptive Negative (Negative) Stl C. cayetanensis PCR Collected Result Units Reference 12/16/23 12:24 Not Detected Stool Rotavirus A PCR Collected Result Units Reference 12/16/23 12:24 Not Detected Stool Adenovirus (PCR) Collected Result Units Reference 12/16/23 12:24 Not Detected Stool Astrovirus (PCR) Collected Result Units Reference 12/16/23 12:24 Not Detected Stool Campylobacter PCR Collected Result Units Reference 12/16/23 12:24 Not Detected Stool Cryptosporidium PCR Collected Result Units Reference 12/16/23 12:24 Not Detected Stl E.coli Shiga Tox PCR Collected Result Units Reference 12/16/23 12:24 Not Detected Stool E coli O157 PCR Collected Result Units Reference 12/16/23 12:24 N/A Stl Enterotoxigenic E PCR Collected Result Units Reference 12/16/23 12:24 Not Detected Stool EPEC (PCR) Collected Result Units Reference 12/16/23 12:24 Not Detected Stool EAEC (PCR) Collected Result Units Reference 12/16/23 12:24 Not Detected Stl E. histolytica PCR Collected Result Units Reference 12/16/23 12:24 Not Detected Stool Giardia Lamblia PCR Collected Result Units Reference 12/16/23 12:24 Not Detected Stl P. shigelloides PCR Collected Result Units Reference 12/16/23 12:24 Not Detected Stool Salmonella PCR Collected Result Units Reference 12/16/23 12:24 Not Detected Stool Sapovirus (PCR) Collected Result Units Reference 12/16/23 12:24 Not Detected Stl Shigella/EIEC PCR Collected Result Units Reference 12/16/23 12:[address] Y.enterocolitica PCR Collected Result Units Reference 12/16/23 12:24 Not Detected Stool Vibrio (PCR) Collected Result Units Reference 12/16/23 12:24 Not Detected Stl Vibrio cholerae PCR Collected Result Units Reference 12/16/23 12:24 Not Detected Stl Norovirus GI/GII PCR Collected Result Units Reference 12/16/23 12:24 Detected A Ordering Physician: Noelle Reyes PA-C Date of Service: 12/17/23 Procedure(s): US abdomen limited Accession Number(s): [id number] cc: Noelle Reyes PA-C; Afsaneh Carlton M.D.~ For Patients: As a result of the Cures Act, medical imaging exams and procedure reports are released immediately into your electronic medical record. You may view this report before your referring provider. If you have questions, please contact your health care provider. INDICATION: Possible splenic lesions COMPARISON: CT 12/08/2023 TECHNIQUE: Real time pratt scale imaging and color Doppler analysis was performed of the spleen. FINDINGS: Normal splenic echotexture without splenic mass. The spleen measures 14.9 x 11.9 x 5.3 cm. No ascites. IMPRESSION: Splenomegaly. No splenic lesion. Dictated by Nicolás Bull MD @ 12/17/2023 12:37:22 PM (Electronically Signed) Ordering Physician: Drake Swenson M.D. Date of Service: 12/18/23 Procedure(s): CT abdomen pelvis wo con Accession Number(s): [id number] cc: Drake Swenson M.D.; Afsaneh Carlton M.D.~ For Patients: As a result of the Cures Act, medical imaging exams and procedure reports are released immediately into your electronic medical record. You may view this report before your referring provider. If you have questions, please contact your health care provider. INDICATION: Diarrhea. History of metastatic rectal cancer. TECHNIQUE: Multiplanar CT examination of the abdomen and pelvis was performed without the use of intravenous contrast. COMPARISON: CT abdomen pelvis 12/08/2023. FINDINGS: Lower chest: Redemonstrated pulmonary masses involving the bilateral lung bases, grossly unchanged since 12/08/2023, again compatible with metastatic disease. Liver: Grossly unchanged rounded hyperdense lesion right hepatic lobe, again consistent with a prior ablation cavity. Previously identified hepatic masses are less conspicuous on today`s noncontrast examination. Gallbladder: Under distended. Biliary: Within normal limits. Pancreas: Within normal limits. Spleen: Previously identified splenic lesions are inconspicuous on today`s noncontrast examination. Adrenal Glands: Normal. Kidneys: Normal size and symmetrically enhancing. No obstructive calculi or hydronephrosis. Ureters: Unremarkable. Bladder: Unremarkable. Bowel: Postsurgical changes from prior rectal resection and small bowel anastomosis in the right lower quadrant. No bowel obstruction. Loops of small bowel appear full with fluid, compatible with diarrheal illness. No bowel wall thickening. Pelvic organs: Unremarkable. Peritoneum: Trace pelvic free fluid. No pneumoperitoneum. Vessels: Normal. Patency of the vasculature is not assessed on today`s noncontrast examination. No significant atherosclerotic disease. Lymph Nodes: Decreased conspicuity of the soft tissues in conglomeration near the nicole hepatis, stable lymphadenopathy. Abdominal Wall/Soft Tissues: Unremarkable. Bones: Unremarkable. IMPRESSION: Limited evaluation due to the lack of intravenous contrast. 1. Nondistended loops of small bowel appear filled with fluid, which can be seen with diarrheal illness. No significant bowel wall thickening or associated inflammatory changes. Otherwise, no acute abdominopelvic pathology. 2. Decreased conspicuity of the hepatic and splenic masses due to lack of intravenous contrast. These were better characterized on the prior contrast enhanced examination from 12/08/2023. 3. Grossly unchanged pulmonary metastases in this patient with given history of rectal cancer. Please note that all CT scans at this facility use dose modulation, iterative reconstruction, and/or weight-based dosing when appropriate to reduce radiation dose to as low as reasonably achievable. Dictated by Panda Camara MD @ 12/18/2023 7:36:56 PM (Electronically Signed) Discharge Plan Discharge Disposition: Home, Self-Care Date of Admission: 12/18/23 17:54 Attending Provider on Discharge: Felicia Rios Primary Care Provider: Afsaneh Carlton Condition: Stable Anticipated Discharge Date/Time: 12/21/23 09:34 Discharge Medications: New Lactobacillus acidophilus 0.5 mg (100 million cell) Tablet 100 mmu cells PO TIDWM Qty: 90 0RF bismuth subsalicylate [Pepto-Bismol] 262 mg/15 mL Suspension 524 mg PO DAILY@18 Qty: 236 0RF loperamide 2 mg Capsule 4 mg PO ACHS Qty: 120 0RF morphine concentrate 100 mg/5 mL (20 mg/mL) Solution 4 mg PO Q4H Qty: 30 0RF simethicone 80 mg Tablet,Chewable 160 mg PO Q4H PRN (Reason: Flatulence) Qty: 240 0RF potassium bicarb-citric acid 25 mEq Tablet, Effervescent 50 meq PO TIDWM Qty: 180 0RF Continued ondansetron 8 mg tablet,disintegrating 8 mg PO TID PRN (Reason: nausea and vomiting) Qty: 30 0RF Patient Comments: will be switching to granisetron when available from his pharmacy Rx Instructions: Take for nausea 24-36 hours after chemotherapy for nausea not controlled with prochlorperazine (compazine) bismuth subsalicylate [Diarrhea Relief (bismuth subs)] 262 mg/15 mL suspension 524 mg PO Q30-60M PRN (Reason: diarrhea) Qty: 473 0RF Rx Instructions: do not exceed 8 doses in a 24 hour period diphenoxylate-atropine [Lomotil] 2.5-0.025 mg tablet 1 tab PO TID Qty: 30 0RF acetaminophen 500 mg capsule 500 mg PO Q6H PRN multivitamin Tablet 1 tab PO DAILY Patient Comments: has not been taking for about last week due to diarrhea pantoprazole 40 mg tablet,delayed release (DR/EC) 40 mg PO DAILY methadone 5 mg tablet 2.5 mg PO BID hydrocortisone 2.5 % ointment 1 applic topical BID PRN Rx Instructions: FOR FACE RASH clobetasol 0.05 % shampoo 1 applic topical DAILY PRN Rx Instructions: FOR RASH prochlorperazine maleate 10 mg tablet 10 mg PO TID PRN (Reason: nausea or vomiting) Rx Instructions: Take first for chemotherapy related nausea. ibuprofen 200 mg capsule 600 mg PO Q6H PRN melatonin 10 mg capsule 10 mg PO HS nitroglycerin [Nitrostat] 0.4 mg tablet, sublingual 0.4 mg sublingual Q5-15M PRN Patient Comments: had vasospasm from chemo agent about 5 years ago Rx Instructions: do not exceed 3 doses per episode hydromorphone [Dilaudid] 4 mg tablet 4 mg PO Q4-6H PRN Patient Comments: has not been taking for about last week due to diarrhea dexamethasone 4 mg tablet 4 mg PO DAILY Patient Comments: has not been taking for about last week due to diarrhea Rx Instructions: as directed after chemotherapy lorazepam 0.5 mg tablet 0.5 - 1 mg PO Q4H PRN (Reason: nausea and vomiting) Qty: 40 0RF Held doxycycline hyclate 100 mg capsule 100 mg PO BID PRN Hold Instructions: Resume on 12/24/23. discuss with oncologist Patient Comments: has not been taking for about last week due to diarrhea Rx Instructions: takes daily 4 days in row after chemo pregabalin 25 mg capsule 25 mg PO QDAY Hold Instructions: Resume on 12/26/23. Patient Comments: has not been taking for about last week due to diarrhea Rx Instructions: 2 daily X 5 days 4 X 5 days then 6 daily azithromycin 500 mg tablet 500 mg PO QDAY 3 Days Qty: 3 0RF Hold Instructions: Resume on 12/24/23. discuss with oncologist ascorbic acid (vitamin C) 500 mg tablet 500 mg PO DAILY Hold Instructions: Resume on 12/26/23. Patient Comments: has not been taking for about last week due to diarrhea cholecalciferol (vitamin D3) 125 mcg (5,000 unit) capsule 5,000 unit PO DAILY Hold Instructions: Resume on 12/26/23. Patient Comments: has not been taking for about last week due to diarrhea omega 2-wly-tsj-fish oil [Fish Oil] 1,000 mg (120 mg-180 mg) capsule 2 cap PO DAILY Hold Instructions: Resume on 12/25/23. may exacerbate diarrhea Patient Comments: has not been taking for about last week due to diarrhea htauhwdw-qwoj-fxakn-oreg-capry 100 mg-150 mg- 50 mg-150 mg capsule 1 cap PO DAILY Hold Instructions: Resume on 12/26/23. Patient Comments: has not been taking for about last week due to diarrhea olanzapine 5 mg tablet 5 mg PO HS MDD 1 tab PRN (Reason: chemotherapy related nausea) Hold Instructions: Resume on 12/26/23. Patient Comments: takes for 2 nights post chemo Rx Instructions: Take 1 tab at bedtime daily days 1-4 post chemotherapy. Do not take with lorazepam. Discontinued loperamide 2 mg capsule 2 mg PO Q4H PRN (Reason: loose stool) Qty: 60 0RF Lactobacillus acidophilus Capsule 1 cap PO DAILY potassium chloride 20 mEq tablet extended release 20 meq PO DAILY Patient Comments: has not been taking for about last week due to diarrhea Rx Instructions: Take twice daily for three days and then daily. amlodipine 10 mg tablet 10 mg PO DAILY Patient Comments: has not been taking for about last week due to diarrhea Discharge Orders: Discharge Order (Routine); Ordered 12/21/23 Ordered By: Felicia Rios Patient Education: Loperamide (By mouth), Simethicone (By mouth), Morphine, Rapid Release (By mouth) (Roxanol), Bismuth Subsalicylate (By mouth), Probiotic (By mouth), Hypokalemia (DC), Acute Diarrhea (ED) Additional Instructions: Follow up with cancer center tomorrow (Friday) for labs. BMP in cancer center Friday and Friday. Magnesium level Friday. Return for any worsening symptoms, new dehydration, inability to keep food/drink down, fever, or worsening abdominal pain. Current bowel regimen: scheduled morphine scheduled loperamide (30 minutes before meals and at bedtime) Lomotil Probiotic scheduled peptobismol after dinner If you have excess gas, use simethicone every 4 hours as needed. If you have breakthrough diarrhea, use peptobismol every 30-60 minutes as needed. Consider increasing probiotic to 2 tabs three times a day. Talk with your oncologist about possibly starting cholestyramine. Activity Level: No Restrictions Discharge Diet: Other Diet Detail: Avoid lactose Follow Up Appointments: Afsaneh Carlton MD [Primary Care Provider] - Forms: [employer] Info Instructions
--- NOTE | 2023-12-21 11:26 | PC.NURSE ---
Patient discharged home in stable condition. Provided own transportation. Alert and orientedx4. Discharge education including but not limited to medication changes and follow up appointments completed at the time of discharge with patient. Verbalized understanding. No further questions per patient.
== END 2023-12-21 10:30 | disposition home or self-care (01) | DRG 249 ==
PROVIDERS: Family Medicine; Admitting Provider Internal Medicine; PCP Family Medicine; Visit Provider Internal Medicine
DX: R19.7 Diarrhea, unspecified (principal); A08.11 Acute gastroenteropathy due to Norwalk agent; C20 Malignant neoplasm of rectum; E86.0 Dehydration; E87.6 Hypokalemia; F41.9 Anxiety disorder, unspecified; C78.7 Secondary malignant neoplasm of liver and intrahepatic bile duct; R21 Rash and other nonspecific skin eruption; R53.1 Weakness; E61.2 Magnesium deficiency; R74.01 Elevation of levels of liver transaminase levels; R00.0 Tachycardia, unspecified; C78.01 Secondary malignant neoplasm of right lung
CPT/HCPCS: 36415; 36591; 74176; 76705; 80048; 80053; 81001; 82330; 82803; 83605; 83735; 84100; 84132; 84443; 85025; 85027; 86140; 87798; 93005; 96361; 96365; 96366; 96376; 99215; G0463; A9270; J1100; J1642; J2405; J3475; J3480; J7030; J7050

== ENCOUNTER 2023-12-22 18:25 | Emergency (ER) | payer BC, SELFPAY ==
[2023-12-22] VITALS (7 sets, daily range): BP systolic 116–118; BP diastolic 77–86; PULSE 110–120; RESP 18; TEMP 36.5; O2SAT 98–99; BMI 25.8
--- NOTE | 2023-12-22 18:40 | ED.NURSE ---
Call to poison control. Poison control advises monitoring sats for four hours. Poison control advises against using narcan unless sats drop to avoid withdrawl. If narcan is needed, they advise starting low. Poison control states if pt has symptoms from overdose, it will likely be in first two hours. updated.
--- NOTE | 2023-12-22 18:53 | ED.GENADULT ---
HPI - General Adult General Chief complaint: Overdose Stated complaint: allergic reaction to medication Time Seen by Provider: 12/22/23 18:48 History of Present Illness HPI narrative: This 43-year-old male has colorectal cancer and was recently prescribed morphine to be used as needed for pain relief. He took an oral dose of 2 mL which amounted to 40 mg. He was mistakenly taking this amount as they gave him 2 different syringes. One was a 5 mL syringe and the other much smaller. He was instead to take 0.2 mL. So this was a 10 fold increase from his prescribed dosing. The patient's called poison Control and they recommended using Narcan if he had any symptoms. They were uncomfortable with this so they come and for monitoring here. The patient states that he feels completely fine. He arrives here with normal vital signs. He took this medicine orally at about 6:00 p.m.. Poison Control recommends monitoring for 4 hours. Related Data Home Medications Medication Instructions Recorded Confirmed acetaminophen 500 mg capsule 500 mg PO Q6H PRN 05/16/22 12/22/23 ascorbic acid (vitamin C) 500 mg 500 mg PO DAILY 05/16/22 12/22/23 tablet cholecalciferol (vitamin D3) 125 5,000 unit PO DAILY 05/16/22 12/22/23 mcg (5,000 unit) capsule multivitamin 1 tab PO DAILY 05/16/22 12/22/23 omega 5-sug-lxa-fish oil 1,000 mg 2 cap PO DAILY 05/16/22 12/22/23 (120 mg-180 mg) capsule (Fish Oil) pantoprazole 40 mg tablet,delayed 40 mg PO DAILY 05/16/22 12/22/23 release turmeric 100 mg-ronaldo 150 1 cap PO DAILY 05/16/22 12/22/23 mg-olive 50 mg-oreg 150 mg-capryl capsule ibuprofen 200 mg capsule 600 mg PO Q6H PRN 09/26/23 12/22/23 melatonin 10 mg capsule 10 mg PO HS 09/26/23 12/22/23 nitroglycerin 0.4 mg sublingual 0.4 mg sublingual Q5-15M PRN 09/26/23 12/22/23 tablet (Nitrostat) hydromorphone 4 mg tablet 4 mg PO Q4-6H PRN 09/30/23 12/22/23 (Dilaudid) doxycycline hyclate 100 mg capsule 100 mg PO BID PRN 10/14/23 12/22/23 dexamethasone 4 mg tablet 4 mg PO DAILY 12/08/23 12/22/23 pregabalin 25 mg capsule 25 mg PO QDAY 12/08/23 12/22/23 clobetasol 0.05 % shampoo 1 applic topical DAILY PRN 12/18/23 12/22/23 hydrocortisone 2.5 % topical 1 applic topical BID PRN 12/18/23 12/22/23 ointment methadone 5 mg tablet 2.5 mg PO BID chronic pain 12/18/23 12/22/23 olanzapine 5 mg tablet 5 mg PO HS PRN chemotherapy 12/18/23 12/22/23 related nausea prochlorperazine maleate 10 mg 10 mg PO TID PRN nausea or vomiting 12/18/23 12/22/23 tablet potassium chloride 20 mEq 20 meq PO BID 12/22/23 12/22/23 tablet,extended release Previous Rx's Medication Instructions Recorded ondansetron 8 mg disintegrating 8 mg PO TID PRN nausea and 12/02/22 tablet vomiting #30 tabs lorazepam 0.5 mg tablet 0.5 - 1 mg (1 - 2 x 0.5 mg) PO Q4H 01/08/23 PRN nausea and vomiting #40 tabs diphenoxylate-atropine 2.5 1 tab PO TID #30 tabs 12/16/23 mg-0.025 mg tablet (Lomotil) bismuth subsalicylate 262 mg/15 mL 524 mg (30 mL) PO Q30-60M PRN 12/17/23 oral suspension (Diarrhea Relief diarrhea #473 mL (bismuth subsalicylate)) Lactobacillus acidophilus 0.5 mg 100 mmu cells PO TIDWM #90 tabs 12/21/23 (100 million cell) tablet bismuth subsalicylate 262 mg/15 mL 524 mg (30 mL) PO DAILY@18 12/21/23 oral suspension (Pepto-Bismol) diarrhea #236 mL loperamide 2 mg capsule 4 mg (2 x 2 mg) PO ACHS #120 caps 12/21/23 morphine concentrate 100 mg/5 mL 4 mg (0.2 mL) PO Q4H #30 mL 12/21/23 (20 mg/mL) oral solution simethicone 80 mg chewable tablet 160 mg (2 x 80 mg) PO Q4H PRN 12/21/23 Flatulence #240 tabs Allergies Allergy/AdvReac Type Severity Reaction Status Date / Time capecitabine Allergy Severe Chest Pain Verified 12/22/23 18:34 Review of Systems Status of ROS: Reports: 10 or more systems reviewed and unremarkable except as noted in History and below Narrative: Constitutional: No fevers, no weight gain or loss. Eyes: No discharge. No vision changes. HENT: No congestion, no sore throat, no ear pain. Cardiovascular: No chest pain, no palpitations. Respiratory: No shortness of breath, no wheezes, no cough. Gastrointestinal: No vomiting. The patient has had diarrhea for the past 12 days and was prescribed morphine to help attend to this. Genitourinary: No dysuria, no hematuria. Musculoskeletal: Normal range of motion. Skin: No rashes, no pruritis. Neurological: No dizziness, weakness, sensory change, speech change. Endo/Heme/Allergies: No bruising or bleeding. No polydipsia. Pysch: no suicidality, no anxiety, no insomnia. All other systems reviewed and are negative. 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 ?R94.138 - Abnormal results of other function studies of peripheral nervous system (ICD-10) Chronic pain disorder ?G89.4 - Chronic pain syndrome (ICD-10) Anxiety ?F41.9 - Anxiety disorder, unspecified (ICD-10) Neuroma of thoracic region ?D36.14 - Benign neoplasm of peripheral nerves and autonomic nervous system of thorax (ICD-10) Hyponatremia ?E87.1 - Hypo-osmolality and hyponatremia (ICD-10) Gastroenteritis ?K52.9 - Noninfective gastroenteritis and colitis, unspecified (ICD-10) Dehydration ?E86.0 - Dehydration (ICD-10) Acute coronary syndrome ?I24.9 - Acute ischemic heart disease, unspecified (ICD-10) Fracture of proximal end of humerus ?S42.209A - Unspecified fracture of upper end of unspecified humerus, initial encounter for closed fracture (ICD-10) Coronary vasospasm ?I20.1 - Angina pectoris with documented spasm (ICD-10) Chest wall pain ?R07.89 - Other chest pain (ICD-10) Surgical History S/P radiation therapy ?Z92.3 - Personal history of irradiation (ICD-10) Social History Narrative: with children. 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 Enjoys [employer]. What is your current living situation?: I presently have a place to live Problems where you live: no known problems Problems where you live details: n/a In the past 12 months, utilities in danger of being shut off: no In past 12 months, lack of transportation kept you from medical appts, meetings, work, or getting things needed for daily living: no In the past 12 mos, have been you worried that your food would run out before you had money to buy more?: never true In the past 12 mos, the food you bought just didn't last and you didn't have money to buy more?: never true Are you following a diet prescribed by a doctor: No Are you following a special diet: Yes (Focusing on increasing calories.) Highest level of school completed/degree received: Master's degree Smoking Status: Never smoker How often do you have a drink containing alcohol: monthly or less How many standard drinks containing alcohol do you have on a typical day: 1 or 2 How often do you have six or more drinks on one occasion: Never AUDIT-C Alcohol total score: 1 Non-prescribed substance use: marijuana (any form) Non-prescribed substance use details: Gummies Caffeine: Yes (2 cups of coffee) How often does anyone, including family, friends and others, physically hurt you: never How often does anyone, including family, friends and others, insult or talk down to you: never How often does anyone, including family, friends and others, threaten you with harm: never How often does anyone, including family, friends and others, scream or curse at you: never service: No Exam Narrative: Exam Narrative: Constitutional: Well-developed, well-nourished, no acute distress. HEENT: Normocephalic, atraumatic. Neck: Normal range of motion. Nontender. Supple. Heart: Intact distal pulses. Lungs: No chest discomfort. No wheezes, rhonchi, or rales. Abdomen: Nondistended. Back: Normal range of motion. Extremities: Normal range of motion. No injury. Skin: Intact. No rash. Warm. No erythema or pallor. Neurologic: No altered sensation. No weakness. Alert and oriented. Psychiatric: No suicidality. No anxiety or depression. No insomnia. Nursing notes and vitals signs are reviewed. Const: Vital Signs, click to edit/add: Vital Signs - 24 hr 12/22/23 18:29 12/22/23 18:56 12/22/23 19:00 Temperature 97.7 F Pulse Rate 112 H 110 H Pulse Rate [Pulse Oximeter] 120 H Respiratory Rate 18 Blood Pressure Blood Pressure [Ri ght Upper Arm] 118/86 Pulse Oximetry 99 99 99 Oxygen Delivery Me thod Room Air 12/22/23 19:01 12/22/23 19:15 12/22/23 19:30 Temperature Pulse Rate 114 H 116 H 116 H Pulse Rate [Pulse Oximeter] Respiratory Rate Blood Pressure 116/79 Blood Pressure [Ri ght Upper Arm] Pulse Oximetry 99 98 99 Oxygen Delivery Me thod 12/22/23 19:32 Temperature Pulse Rate 114 H Pulse Rate [Pulse Oximeter] Respiratory Rate Blood Pressure 118/77 Blood Pressure [Ri ght Upper Arm] Pulse Oximetry 98 Oxygen Delivery Me thod Course Vital Signs Vital signs: Initial Vital Signs Temperature 97.7 F 12/22/23 18:29 Temperature Source Temporal Artery Scan 12/22/23 18:29 Pulse Rate 120 H 12/22/23 18:29 Respiratory Rate 18 12/22/23 18:29 Blood Pressure 118/86 12/22/23 18:29 Blood Pressure Mean 96 12/22/23 18:29 Blood Pressure Position Sitting 12/22/23 18:29 Pulse Oximetry 99 12/22/23 18:29 Oxygen Delivery Method Room Air 12/22/23 18:29 Vital Signs Temperature 97.7 F 12/22/23 18:29 Pulse Rate 120 H 12/22/23 18:29 Respiratory Rate 18 12/22/23 18:29 Blood Pressure 118/86 12/22/23 18:29 Pulse Oximetry 99 12/22/23 18:29 Oxygen Delivery Method Room Air 12/22/23 18:29 Temperature 97.7 F 12/22/23 18:29 Pulse Rate 114 H 12/22/23 19:32 Respiratory Rate 18 12/22/23 18:29 Blood Pressure 118/77 12/22/23 19:32 Pulse Oximetry 98 12/22/23 19:32 Oxygen Delivery Method Room Air 12/22/23 18:29 Medical Decision Making MDM Narrative Medical decision making narrative: This patient accidentally overdosed on his morphine prescription and comes in for observation. Poison Control recommended observation for 4 hours post ingestion. This brings us to 10:00 p.m.. Throughout this time he is maintained sufficient vital signs and feels normal. He is okay to be discharged home. Discharge Plan Discharge Clinical Impression: Accidental overdose Patient Disposition: Home w/ Parent or Adult Condition: Stable Additional Instructions: Continue current plans. Follow up with MD return if worsening. Prescriptions: No Action ondansetron 8 mg tablet,disintegrating 8 mg PO TID PRN (Reason: nausea and vomiting) Qty: 30 0RF Patient Comments: will be switching to granisetron when available from his pharmacy Rx Instructions: Take for nausea 24-36 hours after chemotherapy for nausea not controlled with prochlorperazine (compazine) doxycycline hyclate 100 mg capsule 100 mg PO BID PRN Hold Instructions: Resume on 12/24/23. discuss with oncologist Patient Comments: has not been taking for about last week due to diarrhea Rx Instructions: takes daily 4 days in row after chemo pregabalin 25 mg capsule 25 mg PO QDAY Hold Instructions: Resume on 12/26/23. Patient Comments: has not been taking for about last week due to diarrhea Rx Instructions: 2 daily X 5 days 4 X 5 days then 6 daily bismuth subsalicylate [Diarrhea Relief (bismuth subs)] 262 mg/15 mL suspension 524 mg PO Q30-60M PRN (Reason: diarrhea) Qty: 473 0RF Rx Instructions: do not exceed 8 doses in a 24 hour period diphenoxylate-atropine [Lomotil] 2.5-0.025 mg tablet 1 tab PO TID Qty: 30 0RF acetaminophen 500 mg capsule 500 mg PO Q6H PRN ascorbic acid (vitamin C) 500 mg tablet 500 mg PO DAILY Hold Instructions: Resume on 12/26/23. Patient Comments: has not been taking for about last week due to diarrhea cholecalciferol (vitamin D3) 125 mcg (5,000 unit) capsule 5,000 unit PO DAILY Hold Instructions: Resume on 12/26/23. Patient Comments: has not been taking for about last week due to diarrhea omega 3-gxc-lku-fish oil [Fish Oil] 1,000 mg (120 mg-180 mg) capsule 2 cap PO DAILY Hold Instructions: Resume on 12/25/23. may exacerbate diarrhea Patient Comments: has not been taking for about last week due to diarrhea multivitamin Tablet 1 tab PO DAILY Hold Instructions: diarrhea Patient Comments: has not been taking for about last week due to diarrhea pantoprazole 40 mg tablet,delayed release (DR/EC) 40 mg PO DAILY phbmpoah-wejl-mhnnf-oreg-capry 100 mg-150 mg- 50 mg-150 mg capsule 1 cap PO DAILY Hold Instructions: Resume on 12/26/23. Patient Comments: has not been taking for about last week due to diarrhea methadone 5 mg tablet 2.5 mg PO BID hydrocortisone 2.5 % ointment 1 applic topical BID PRN Rx Instructions: FOR FACE RASH clobetasol 0.05 % shampoo 1 applic topical DAILY PRN Rx Instructions: FOR RASH olanzapine 5 mg tablet 5 mg PO HS MDD 1 tab PRN (Reason: chemotherapy related nausea) Hold Instructions: Resume on 12/26/23. Patient Comments: takes for 2 nights post chemo Rx Instructions: Take 1 tab at bedtime daily days 1-4 post chemotherapy. Do not take with lorazepam. prochlorperazine maleate 10 mg tablet 10 mg PO TID PRN (Reason: nausea or vomiting) Rx Instructions: Take first for chemotherapy related nausea. Lactobacillus acidophilus 0.5 mg (100 million cell) Tablet 100 mmu cells PO TIDWM Qty: 90 0RF bismuth subsalicylate [Pepto-Bismol] 262 mg/15 mL Suspension 524 mg PO DAILY@18 Qty: 236 0RF loperamide 2 mg Capsule 4 mg PO ACHS Qty: 120 0RF morphine concentrate 100 mg/5 mL (20 mg/mL) Solution 4 mg PO Q4H Qty: 30 0RF simethicone 80 mg Tablet,Chewable 160 mg PO Q4H PRN (Reason: Flatulence) Qty: 240 0RF ibuprofen 200 mg capsule 600 mg PO Q6H PRN melatonin 10 mg capsule 10 mg PO HS nitroglycerin [Nitrostat] 0.4 mg tablet, sublingual 0.4 mg sublingual Q5-15M PRN Patient Comments: had vasospasm from chemo agent about 5 years ago Rx Instructions: do not exceed 3 doses per episode hydromorphone [Dilaudid] 4 mg tablet 4 mg PO Q4-6H PRN Patient Comments: has not been taking for about last week due to diarrhea dexamethasone 4 mg tablet 4 mg PO DAILY Hold Instructions: only w/ chemo Patient Comments: has not been taking for about last week due to diarrhea Rx Instructions: as directed after chemotherapy potassium chloride 20 mEq tablet extended release 20 meq PO BID lorazepam 0.5 mg tablet 0.5 - 1 mg PO Q4H PRN (Reason: nausea and vomiting) Qty: 40 0RF Follow Up/Referrals: Afsaneh Carlton MD [Primary Care Provider] - [facility]
--- OUTSIDE RECORDS SUMMARY | 2023-12-22 19:00 | XMS_ITS | Clinical Summary ---
Author Name Unknown Organization [employer] [facility] Address [place], [place] [address] Care Team Providers Care Marketing Technologist Name Role Phone Afsaneh Carlton MD Primary Care Provider [phone] Allergies Active Allergy Reactions Criticality Noted Date Comments Capecitabine Chest Pain High 02/25/2022 Medications Medication Sig Dispensed Refills Start Date End Date Status Cholecalciferol, Vitamin D3, 400 unit capsule Take 400 Units by mouth. 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 Rectal cancer 04/16/2018 Overview: Colonoscopy 03/2018 rectal cancer, further evaluation at [facility] Colonoscopy 06/2019 inflammatory nodule at surgical anastomosis, repeat in 3 years Resolved Problems Problem Noted Date Diagnosed Date Resolved Date Pseudopolyposis of colon wit hout complication, unspecified part of colon 12/28/2021 01/08/2023 Encounters Date Type Department Care Team Description 12/18/2023 Orders Only [facility] Scanner 1 scan: (1-Ord) [place], ABD/PELVIS, 12/18/2023 12/17/2023 Orders Only [facility] Scanner 1 scan: (1-Ord) [place], ABDOMEN LIMITED, 12/17/2023 12/08/2023 Orders Only [facility] Scanner 1 scan: (1-Ord) [place], CT ABDOMEN PELVIS W CON, 12/08/2023 11/14/2023 Refill [facility] [address] [place] [address] Afsaneh Carlton MD Refill Request (Amlodipine) from [...] 179 cm (5' 10.47) 10/01/2018 8:08 AM CORRESPONDENCE SECTION SUPERVISOR Body Mass Index 29.59 10/01/2018 8:08 AM CORRESPONDENCE SECTION SUPERVISOR Plan of Treatment Health Maintenance Due Date [...] Procedure Name Priority Date/Time Associated Diagnosis Comments SCAN-CT INTERPRETATION 4 12:00 AM CORRESPONDENCE SECTION SUPERVISOR SCAN-ULTRASOUND REPORT 12:00 AM CORRESPONDENCE SECTION SUPERVISOR SCAN-CT INTERPRETATION 12:00 AM CORRESPONDENCE SECTION SUPERVISOR from Last 3 Months Results * SCAN-CT INTERPRETATION (12/18/2023 12:00 AM CORRESPONDENCE SECTION SUPERVISOR) Only the most recent of2 resultswithin the time period is included. Anatomical Region Laterality Modality Other Scanner OTHER * SCAN-ULTRASOUND REPORT (12/17/2023 12:00 AM CORRESPONDENCE SECTION SUPERVISOR) Anatomical Region Laterality Modality Other Scanner OTHER from Last 3 Months Care Teams Marketing Technologist Relationship Specialty Start Date End Date Afsaneh Carlton MD [address] [place] [address] PCP - General Family Practice 02/15/22
== END 2023-12-22 22:07 | disposition home or self-care (01) ==
PROVIDERS: Emergency Provider Emergency Medicine Emergency Medical Services; PCP Family Medicine
DX: T40.2X1A Poisoning by other opioids, accidental (unintentional), initial encounter (principal)
CPT/HCPCS: 99283; 99284

== ENCOUNTER 2023-12-31 09:00 | Outpatient (RCR) | payer BC, SELFPAY ==
[2023-12-22] MEDS: SODIUM CHLORIDE 0.9 % (FLUSH) 10 ML SYRINGE IVF (09:00)
[2023-12-22 09:15] LABS: Potassium* 3.1 mmol/L (3.6-5.1); Sodium* 141 mmol/L (135-149)
[2023-12-22 09:16] LABS: Anion Gap 12 mEq/L (7-15); Carbon Dioxide* 26 mmol/L (20-32); Chloride* 103 mmol/L (96-114)
[2023-12-22 09:25] LABS: Albumin* 3.6 g/dL (3.3-5.0)
[2023-12-22 09:28] LABS: Alanine Aminotransferase* 173 U/L (4-50); Alkaline Phosphatase* 482 U/L (40-150); Aspartate Amino Transferase* 79 U/L (12-35); Bilirubin Total* 0.7 mg/dL (0.1-1.5); Blood Urea Nitrogen* 5 mg/dL (5-24); Calcium* 8.7 mg/dL (8.4-10.6); Creatinine* 0.4 mg/dL (0.5-1.5); Estimated Glomerular Filt Rate 137 ml/min; Glucose* 120 mg/dL (60-115); Magnesium* 1.8 mg/dL (1.5-2.6)
[2023-12-22 10:27] VITALS: BP 119/84; PULSE 118; RESP 18; TEMP 36.4; O2SAT 98
[2023-12-22] MEDS: POTASSIUM CHLORIDE 40 MEQ in 0.9 % SODIUM CHLORIDE 1000 ml 1,000 ML 250 MEQ IV (10:30)
[2023-12-23 09:30] LABS: Chloride* 99 mmol/L (96-114); Sodium* 137 mmol/L (135-149)
[2023-12-23 09:33] LABS: Anion Gap 8 mEq/L (7-15); Carbon Dioxide* 30 mmol/L (20-32)
[2023-12-25 08:47] VITALS: BP 125/89; PULSE 134; RESP 18; TEMP 35.8; O2SAT 100
[2023-12-25 09:33] LABS: Chloride* 102 mmol/L (96-114)
[2023-12-25 09:34] LABS: Potassium* 5.1 mmol/L (3.6-5.1); Sodium* 136 mmol/L (135-149)
[2023-12-25 09:37] LABS: Anion Gap 6 mEq/L (7-15); Carbon Dioxide* 28 mmol/L (20-32)
[2023-12-25] MEDS: SODIUM CHLORIDE 0.9 % (FLUSH) 10 ML SYRINGE IVF ×2 (09:53→10:59)
[2023-12-25] MEDS: 0.9 % SODIUM CHLORIDE 1000 ml 1,000 ML IV (09:55)
--- NOTE | 2023-12-25 10:25 | PC.NURSE ---
Pt present at [facility] for lab recheck. Potassium 5.1. Pt's last diarrhea was 12/23/2023. Pt is now feeling constipated and having stomach pains related to that. He did an enema this morning with some success. RN discussed with Celine Vazquez APRN. Pt instructed to decrease oral potassium to one tab (20 mEq) daily. Due to weight being down, CINDY also ordered 1L NS which was given. Pt saw oncology team at [place] in [place] and per Luis, the plan is to continue current chemo regimen and resume next week. Treatment orders updated. Pt is scheduled for labs next Friday and chemo next Friday. Will have Dr. Dominique or Dr. Neff review notes and approve this plan.
[2023-12-25] MEDS: HEPARIN 500 UNIT/5 ML SYRINGE IVF (10:59)
[2023-12-30 13:33] LABS: Basophils Absolute Auto 0.03 K/uL (0.00-0.30); Basophils Percent Auto 0.5 % (0.0-3.0); Eosinophils Absolute Auto 0.14 K/uL (0.00-0.50); Eosinophils Percent Auto 2.1 % (0.0-7.0); Hemoglobin* 13.2 gm/dL (13.5-17.5); Lymphocytes Percent Auto 11.1 % (20-44); Mean Corpuscular HGB Conc 31 gm/dL (32-36); Mean Corpuscular Hemoglobin 29 pg (26-34); Mean Corpuscular Volume 93 fL (80-100); Monocytes Percent Auto 11.3 % (0.0-11.0); Platelet Count* 86 K/uL (140-440); Red Blood Count 4.52 m/uL (4.30-5.90); White Blood Count* 6.65 K/uL (4.50-11.00)
[2023-12-30 13:38] LABS: Slide Review Reflex No
[2023-12-30 14:06] LABS: Chloride* 102 mmol/L (96-114)
[2023-12-30 14:07] LABS: Albumin* 3.9 g/dL (3.3-5.0); Potassium* 4.5 mmol/L (3.6-5.1); Sodium* 136 mmol/L (135-149)
[2023-12-30 14:09] LABS: Anion Gap 6 mEq/L (7-15); Bilirubin Total* 0.9 mg/dL (0.1-1.5); Carbon Dioxide* 28 mmol/L (20-32); Creatinine* 0.5 mg/dL (0.5-1.5); Estimated Glomerular Filt Rate 128 ml/min
[2023-12-30 14:10] LABS: Alanine Aminotransferase* 163 U/L (4-50); Alkaline Phosphatase* 476 U/L (40-150); Aspartate Amino Transferase* 73 U/L (12-35); Blood Urea Nitrogen* 6 mg/dL (5-24); Glucose* 123 mg/dL (60-115); Total Protein* 6.6 g/dL (6.0-8.3)
[2023-12-30 14:32] LABS: Magnesium* 1.6 mg/dL (1.5-2.6)
--- NOTE | 2023-12-30 14:43 | PC.NURSE ---
Pt present at [facility] today for pre-chemo labs. Plt 86. Discussed with Dr. Neff and MD gave OK to treat. Pt called and notified. Support offered.
[2023-12-31 09:27] VITALS: BP 129/87; PULSE 128; RESP 16; TEMP 35.7; O2SAT 99
[2023-12-31] MEDS: PALONOSETRON 0.25 MG/5 ML inj IV (10:03)
[2023-12-31] MEDS: dexAMETHasone 10 MG in 0.9 % SODIUM CHLORIDE 100 ml 100 ML 420 MG IVPB (11:15)
[2023-12-31] MEDS: FOSAPREPITANT 150 MG inj 150 MG in 0.9 % SODIUM CHLORIDE 250 ml 250 ML 780 MG IVPB (11:36)
[2023-12-31 13:14] LABS: Appearance Urine Clear (Clear); Bilirubin Urine Negative (Negative); Blood Urine Negative (Negative); Color Urine Yellow (Yellow); Glucose Urine Negative (Negative); Ketones Urine Negative (Negative); Leukocyte Esterase Urine Negative (Negative); Nitrite Urine Negative (Negative); Protein Urine Negative (Negative); Specific Gravity Urine 1.025 (1.000-1.030); Urobilinogen Urine 0.2 (0.2-1.0); pH Urine 5.5 (5.0-8.5)
[2023-12-31 13:41] LABS: RBC Urine 0-2 (0-2); WBC Urine 0-2 (0-5)
[2023-12-31] MEDS: SODIUM CHLORIDE 0.9 % (FLUSH) 10 ML SYRINGE IVF (15:34)
[2023-12-31] MEDS: HEPARIN 500 UNIT/5 ML SYRINGE IVF (15:35)
[2024-01-01 15:30] VITALS: BP 117/89; PULSE 129; RESP 16; TEMP 36.1; O2SAT 99
[2024-01-01] MEDS: PEGFILGRASTIM-JMDB 6 MG/0.6 ML SYRINGE SUBCUT (15:49)
--- NOTE | 2024-01-01 16:02 | ONC.NURNOTE ---
Pulse elevated. Notified [facility]. Offered patient fluids but he refused for today. Offered them for tomorrow and patient refused. Encouraged patient to call us if he develops signs of tachycardia and dehydration.
[2024-01-05 13:18] LABS: Chloride* 101 mmol/L (96-114); Sodium* 134 mmol/L (135-149)
[2024-01-05 13:21] LABS: Anion Gap 8 mEq/L (7-15); Blood Urea Nitrogen* 10 mg/dL (5-24); Carbon Dioxide* 25 mmol/L (20-32); Creatinine* 0.5 mg/dL (0.5-1.5); Estimated Glomerular Filt Rate 128 ml/min
[2024-01-05 13:22] LABS: Calcium* 8.8 mg/dL (8.4-10.6); Glucose* 137 mg/dL (60-115); Magnesium* 1.8 mg/dL (1.5-2.6)
== END 2024-01-06 10:09 | disposition home or self-care (01) ==
LOC: CCIC 09:00
PROVIDERS: Internal Medicine Hematology & Oncology; PCP Family Medicine; Referring Provider Family Medicine; Visit Provider Clinical Nurse Specialist
DX: Z51.11 Encounter for antineoplastic chemotherapy (principal); C20 Malignant neoplasm of rectum; E87.6 Hypokalemia; R11.2 Nausea with vomiting, unspecified; T45.1X5A Adverse effect of antineoplastic and immunosuppressive drugs, initial encounter; R10.9 Unspecified abdominal pain; D69.59 Other secondary thrombocytopenia; G62.0 Drug-induced polyneuropathy; E86.0 Dehydration; R74.01 Elevation of levels of liver transaminase levels; M54.9 Dorsalgia, unspecified
CPT/HCPCS: 36415; 36591; 80048; 80051; 80053; 81001; 83735; 85025; 87086; 96360; 96361; 96365; 96366; 96372; 96376; 96413; 96415; 96417; 99215; 99284; G0463; J0461; J1100; J1453; J1642; J2469; J3480; J7030; J7050; J9206; J9303; Q5108

== ENCOUNTER 2023-12-31 10:37 | Outpatient (CLI) | payer BC, SELFPAY ==
--- NOTE | 2023-12-31 10:30 | XR_ITS ---
INDICATION: DIARRHEA, PARTIAL OBSTRUCTION. TECHNIQUE: TWO VIEWS ABDOMEN COMPARISON: CT 12/18/2023 FINDINGS: POSTOP CHANGES TO THE RIGHT SIDE OF THE ABDOMEN NOTED. OSSEOUS STRUCTURES ARE WITHIN NORMAL LIMITS. THE PSOAS MARGINS ARE MAINTAINED. MODERATE AMOUNT OF STOOL IS PRESENT. A FEW SCATTERED NONDISTENDED LOOPS OF SMALL BOWEL ARE PRESENT WITHIN THE MID ABDOMEN WITH AIR-FLUID LEVELS. IMPRESSION: SIMILAR APPEARANCE OF THE SMALL BOWEL COMPARED TO THE PRIOR STUDY CONSISTENT WITH HISTORY OF DIARRHEAL ILLNESS. NO EVIDENCE OF BOWEL OBSTRUCTION.
--- OUTSIDE RECORDS SUMMARY | 2023-12-31 10:40 | XMS_ITS | Clinical Summary ---
Author Name Unknown Organization [employer] [facility] Address [place], [place] [address] Care Team Providers Care Banquet Chef Name Role Phone Afsaneh Carlton MD Primary Care Provider Allergies Active Allergy Reactions Criticality Noted Date Comments Capecitabine Chest Pain High 02/25/2022 Medications Medication Sig Dispensed Refills Start Date End Date Status Cholecalciferol, Vitamin D3, 400 unit capsule Take 400 Units by mouth. 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 Rectal cancer 04/16/2018 Overview: Colonoscopy 03/2018 rectal cancer, further evaluation at [facility] Colonoscopy 06/2019 inflammatory nodule at surgical anastomosis, repeat in 3 years Resolved Problems Problem Noted Date Diagnosed Date Resolved Date Pseudopolyposis of colon wit hout complication, unspecified part of colon 12/28/2021 01/08/2023 Encounters Date Type Department Care Team Description 12/30/2023 Orders Only [facility] Staff, Other Clinical 1 scan: (1-Ord) [facility] 12/18/2023 Orders Only [facility] Scanner 1 scan: (1-Ord) [place], ABD/PELVIS, 12/18/2023 12/17/2023 Orders Only [facility] Scanner 1 scan: (1-Ord) [place], ABDOMEN LIMITED, 12/17/2023 12/08/2023 Orders Only [facility] Scanner 1 scan: (1-Ord) [facility], CT ABDOMEN AND PELVIS, 12/08/2023 12/08/2023 Orders Only [facility] Scanner 1 scan: (1-Ord) [facility] CT ABDOMEN PELVIS W CON, 12/08/2023 11/14/2023 Refill [facility] [address] [place] [address] Afsaneh Carlton MD Refill Request (Amlodipine) from [...] 179 cm (5' 10.47) 10/01/2018 8:08 AM WATCH REPAIRER Body Mass Index 29.59 10/01/2018 8:08 AM WATCH REPAIRER Plan of Treatment Health Maintenance Due Date [...] Procedure Name Priority Date/Time Associated Diagnosis Comments SCAN CORRESP-LABORATORY RESULTS 12/30/2023 8:08 AM WATCH REPAIRER SCAN-CT INTERPRETATION 4 12:00 AM WATCH REPAIRER SCAN-ULTRASOUND REPORT 4 12:00 AM WATCH REPAIRER SCAN-CT INTERPRETATION 4 12:00 AM WATCH REPAIRER SCAN-CT INTERPRETATION 4 12:00 AM WATCH REPAIRER from Last 3 Months Results * SCAN CORRESP-LABORATORY RESULTS (12/30/2023 8:08 AM WATCH REPAIRER) Narrative 12/30/2023 8:08 AM WATCH REPAIRER Ordered by an unspecified provider. Other Clinical Staff OTHER * SCAN-CT INTERPRETATION (12/18/2023 12:00 AM WATCH REPAIRER) Only the most recent of3 resultswithin the time period is included. Anatomical Region Laterality Modality Other Scanner OTHER * SCAN-ULTRASOUND REPORT (12/17/2023 12:00 AM WATCH REPAIRER) Anatomical Region Laterality Modality Other Scanner OTHER from Last 3 Months Care Teams Banquet Chef Relationship Specialty Start Date End Date Afsaneh Carlton MD [address] [place] [address] PCP - General Family Practice 02/15/22
--- OUTSIDE RECORDS SUMMARY | 2023-12-31 10:40 | XMS_ITS | Clinical Summary ---
Author Name Unknown Organization [facility] Address [address] [place] [id number] Care Team Providers Care Community Sports Coordinator Name Role Phone Elsewhere, Pcp Primary Care Provider Unavailabl e Source Comments Patient records contain information from all sites at [facility]. For routine questions regarding patient records, call [phone] during business hours, M-F 8:00 AM - 5:00 PM Central Time. Record requests for emergency care only can be directed to [phone] at any time.[facility] Allergies Active Allergy Reactions Criticality Noted Date [...] needed. 30 g 3 03/07/20 22 Active Additional Information Patient not taking.Reported on 12/23/2023 albuterol 90 mcg/actuation inhaler INHALE 1-2 PUFFS [...] for detailed directions. 20 tablet 3 09/26/20 Active prochlorperazine (COMPAZINE) 10 mg tablet Take 1 tablet (10 mg total) by mouth every 8 (eight) hours as needed for nausea. 30 tablet 3 09/26/20 Active dexAMETHasone (DECADRON) 4 mg tablet Take 1 tablet (4 mg total) by mouth daily. Take in a.m. with food 30 tablet 3 09/26/20 Active Additional Information Patient not taking.Reported on 12/23/2023 omeprazole (PriLOSEC) [address] capsule Take 1 capsule (20 mg total) by mouth every morning before breakfast. 30 capsule 3 09/26/20 Active Additional Information Patient not taking.Reported on 12/23/2023 doxycycline monohydrate (MONODOX) 100 mg capsule Take 1 capsule (100 mg total) by mouth 2 (two) times a day before breakfast and dinner. 60 capsule 3 09/26/20 Active Additional Information Patient not taking.Reported on 12/23/2023 hydrocortisone (CORTAID) 1 % cream Apply 1 Application topically 2 (two) times a day. 30 g 3 09/26/20 Active HYDROmorphone (DILAUDID) 4 mg tabletIndications: Chronic Pain/Nonacute Pain Take 1-1.5 tablets (4-6 mg total) by mouth every 4 (four) hours as needed for pain Indication: Chronic Pain/Nonacute Pain. 60 tablet 0 09/26/20 Active OLANZapine (ZyPREXA) 5 mg tablet TAKE 1 TABLET (5 MG TOTAL) BY MOUTH AT BEDTIME. TAKE DAYS 1-4 AFTER CHEMOTHERAPY 72 tablet 1 10/22/20 Active clobetasoL (CLODAN) 0.05 % shampoo Lather onto scalp, leave on 5 minutes, and rinse. Use daily Fri-. 118 mL 3 10/28/20 Active hydrocortisone 2.5 % ointment Apply 1 Application topically 2 (two) times a day. Apply to affected areas of the face and groin twice daily Fri-. 30 g 3 10/28/20 Active triamcinolone (KENALOG) 0.1 % cream Apply 1 Application topically 2 (two) times a day as needed (Rash). Apply to affected areas of the body twice daily Fri-. 240 g 3 10/28/20 23 Active methadone dilution (DOLOPHINE) 0.5 mg/mL injection [...] 100 mg tablet Take 600 mg by mouth as needed. 0 09/26/20 23 Active melatonin 1 mg tablet,chewable Chew 10 mg daily. 0 09/26/20 23 Active doxycycline (DORYX) 75 [...] days. 60 capsule 0 12/03/19 24 Active Additional Information Patient not taking.Reported on 12/23/2023 pregabalin (LYRICA) 100 mg capsule Take 1 [...] morning 90 tablet 1 12/10/19 24 Active azithromycin (ZITHROMAX) 500 mg tablet 0 12/18/19 24 Active diphenoxylate-atro pine (LOMOTIL) 2.5-0.025 mg per tablet Take 1 tablet by mouth 3 (three) times a day with meals. 0 12/16/19 24 Active DULoxetine (CYMBALTA) [address] capsule Take 1 capsule by mouth daily. 0 11/27/19 24 Active loperamide (IMODIUM A-D) 2 mg capsule TAKE 1 TABLET ORALLY EVERY 4 HOURS NEEDED FOR LOOSE STOOL 0 12/16/19 24 Active morphine 100 mg/5 mL (20 mg/mL) concentrated solution Take by mouth as needed. 0 12/21/19 24 Active pantoprazole (PROTONIX) 40 mg EC tabletIndications: Malignant Neoplasm Of Rectum (HCC) Take 1 tablet (40 mg total) by mouth every morning. 90 tablet 1 04/22/20 23 024 Discontinued methadone (DOLOPHINE) 5 mg tabletIndications: Chronic Pain/Nonacute Pain Take 0.5 tablets (2.5 mg total) by mouth 2 (two) times a day Indication: Chronic Pain/Nonacute Pain. 30 tablet 0 10/27/20 23 024 Discontinued omega 2-uuq-fof-fish oil 1,000 mg (120 mg-180 mg) capsule Take 2 capsules by mouth. 0 05/16/20 22 024 Discontinued(Du plicate order) Active Problems Problem Noted Date Diagnosed Date Palliative Care 10/23/2023 Abdominal Pain 02/19/2022 Secondary Malignant Neoplasm Liver 02/18/2022 Secondary Malignant Neoplasm Colon 07/13/2020 Overview: Added automatically from request for surgery [id number] Secondary Malignant Neoplasm Of Lung Laterality Unknown 03/30/2020 Pulmonary Nodule Computed Tomography Indetermina te 09/27/2019 Nodules Pulmonary Multiple 09/10/2019 Takedown Ileostomy Status Post (Reversal) 2018 Ileostomy Status 12/04/2018 Overview: Added automatically from request for surgery [id number] Thrombocytopenia Drug Induced 12/02/2018 Follow Up Examination [...] Colonoscopy 03/2018 rectal cancer, further evaluation at [facility] Resolved Problems Problem Noted Date Diagnosed Date Resolved Date Abdominal Pain 02/19/2022 02/19/2022 Myocardial Infarction Type 2 05/26/2018 05/27/2018 Overview: Capecitabine-induced coronary vasospasm Encounters Date Type Department Care Team Description 12/24/2023 4:10 PM VACATION PLANNER Office Visit Department of Oncology in [address] [address] Ned Alegria M.D. 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 Catrachita Padilla M.D., M.S. Malignant Neoplasm Of Rectum (HCC) (Primary Dx); Secondary Malignant Neoplasm Of Lung Laterality Unknown (HCC); Pain Cancer Associated; Palliative Care; Pain Neuropathic 12/24/2023 11:00 AM VACATION PLANNER Lab Department of Infusion Therapy in [place], [place] [address] [place] [phone] Noelle Reyes P.A.-C., P.A. 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 12/17/2023 Orders Only Pharmacy Prior Auth RO [phone] Xiomara Blood 12/16/2023 Orders Only [facility] Pharmacy - [address] [phone] Dolores Khanna 12/10/2023 Refill Department of Oncology in [address] [phone] Giorgio Fishman M.D. Med Refill ( pantoprazole) 12/03/2023 1:15 PM VACATION PLANNER Telemedicine Department of Palliative Care in [address] [address] Catrachita Padilla M.D., M.S. Malignant Neoplasm Of Rectum (HCC) (Primary Dx); Pain Cancer Associated; Nausea; Palliative Care 12/01/2023 8:30 AM VACATION PLANNER Office Visit Division of Pain Medicine in [address] [phone] Sean Shen D.O. Pain Cancer Associated (Primary Dx) 11/26/2023 3:45 PM VACATION PLANNER Clinical Communication Virtual Review in [place], [place] [address] [place] [address] 10/28/2023 10:40 AM VACATION PLANNER Comprehensive Visit Department of Dermatology in [place], [place] [address] [place] [phone] Dakota Smith M.D. 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 Annie Mak, Tequila.I.C.S.W., M.S.W. Palliative Care (Primary Dx); Counseling Life Circumstance Problem 10/20/2023 8:30 AM VACATION PLANNER Telemedicine Department of Palliative Care in [place], [place] [address] [place] [phone] Louisa Padilla, Raghu.Shantal.-CKari Noonan APRN, C.N.P., D.N.P. Pain Cancer Associated (Primary Dx); Malignant Neoplasm Of Rectum (HCC); Pain Neuropathic; Pain Low Back Unspecified; Nausea And Vomiting; Constipation; Counseling Life Circumstance Problem; Palliative Care 10/20/2023 Refill Department of Oncology in [place], [place] [address] [place] [address] Kristi Dominique M.D. Med Change Request 10/14/2023 11:30 AM [facility] Clinical Communication Virtual Review in [place], [place] [address] [place] [address] Pre-visit Intake 09/30/2023 Clinical Communication Division of Pain Medicine in [place], [place] [address] [place] [address] Marlon Garcia M.D. Nerve block response from Last 3 Months Immunizations Name Administration [...] often do you attend chur ch or jain services? Never 02/03/2023 Do you [...] [facility] of Occupat ional [facility] - Occupational Stress Questionnaire Answer [...] degree (e.g., MA, MS, Ana Lilia, MEd, HORTICULTURAL MANAGER, GORDO) 02/15/2022 Sex and Gender Information Value Date Recorded Sex Assigned at Male 04/23/2018 1:23 PM CDT Gender Identity Male 04/23/2018 1:23 PM CDT Sexual Orientation Straight 04/23/2018 1: 23 PM CDT Last Filed Vital Signs Vital Sign Reading Time Taken Comments Blood Pressure 122/81 12/24/2023 4:08 PM VACATION PLANNER Pulse 133 12/24/2023 4:08 PM VACATION PLANNER Temperature 36.5 ??C (97.7 ??F) 12/24/2023 4 :08 PM VACATION PLANNER Respiratory Rate 16 12/24/2023 4:08 PM VACATION PLANNER Oxygen Saturation 98% 12/24/2023 4:0 8 PM VACATION PLANNER Inhaled Oxygen Concentration - - Weight 78.7 kg (173 lb 8 oz) 12/24/2023 4:08 PM VACATION PLANNER pts states that today's wt is correct Height 179.3 cm (5' 10.59) 12/24/2023 4:08 PM VACATION PLANNER Body Mass Index 24.48 12/24/2023 4:08 PM VACATION PLANNER Plan of Treatment Upcoming Encounters Date Type Department Care Team (Latest Contact Info) Description 03/23/2024 7:30 AM CDT Clinical Communication Virtual Review in [place], [place] 200 [place] [address] 03/24/2024 9:20 AM CDT Lab Department of Infusion Therapy in [address] [phone] Ned Alegria M.D. [address] [place] [phone] 03/24/2024 11:00 AM CDT Appointment Department of Radiology, [facility], in [address] [address] Ned Alegria M.D. [address] [place] [phone] 03/24/2024 3:30 PM CDT Office Visit Department of Oncology in [address] [phone] Ned Alegria M.D. [address] [place] [phone] Health Maintenance Due Date Last Done Comments CT Colonography 1978 Cologuard 1978 Colonoscopy 1978 Colorectal Cancer Surveillance 1978 Generalized Anxiety (REGINA-7) 1978 Hepatitis B Vaccines (1 of 3 - 3-dose series) 1978 Lipid (Cholesterol) Screening 1978 Pneumococcal vaccine (0-64 years) (1 of 2 - PCV) 1984 Zoster Vaccines (2 of 2) 07/20/2020 05/25/2020 COVID-19 Vaccine (4 - 2022- season) 2023 08/16/2021, 02/27/2021, 02/02/2021 Controlled Substance Agreement 09/26/2023 Controlled Substance Monitoring (PHQ-9) 09/26/2023 Controlled Substance Monitoring 09/26/2023 PEG assessment for Opioid therapy 09/26/2023 Opioid Use Disorder (OUD) Screening 09/27/2023 Depression Screening (Annual PHQ-2) 11/17/2023 Opioid Risk Tool (ORT) 09/26/2024 09/26/2023 DTaP,Tdap,and Td Vaccines (2 - Td or Tdap) 09/26/2026 09/26/2016 Fasting Glucose for Diabetes Screening 12/24/2026 12/24/2023, 09/09/2023, 07/30/2023, Additional history exists HIV Screening Completed 05/11/2018 Hepatitis C Screening Completed 05/11/2018 Influenza Vaccine Completed 08/21/2023, , 08/31/2020, Additional history exists Glucose Test for Med Monitoring Discontinued 12/24/2023, 09/09/2023, 07/30/2023, Additional history exists HPV Vaccines Aged Out No longer eligi ble based on patient's age to complete this topic Goals Goal Patient Goal Type Associated Problems Recent Progress Patient-Stated? Author Your pain? Symptom Management 9(11/20/2022 2:41 PM VACATION PLANNER) No Phyllis-Girma Bush, R.N., O.C.N. Note: 05/24/2021: Pain algorithm completed. [facility] [place] [place] 05/24/2021: Followup 06/07 via portal per [...] that his need for medication may change. [facility] 06/07/2021: Pain rating over the past 7 [...] action plan?: No changes needed. Although Mr. aTbares is rating his pain on average 7/10 over the past week, he states he is satisfied taking the oxycodone, 5-10 mg, as prescribed and tylenol prn. Next steps: Mr. Tabares declines further followup at this time. He knows he can contact us again if needed. S Medical Devices Implanted Type Area Fishing Manager Device Identifier Shelf Expiration Date Model / Serial / Lot Mer[employer] Seprafilm 5x6 - [id number] Implanted:Qty : 1 on 08/21/2018 by Jamin uHerta M.D. at [facility] Hardware e.g. pins/screws/landon s [employer] [id number] / / Prt Cath Infus Mri 6f - [id number] Implanted:Qty : 1 on 04/05/2020 by Afsaneh Stephen M.D. at [facility] Implantable [employer] 06/16/2021 [id number] / / [id number] Explanted Type Area Fishing Manager Device Identifier Shelf Expiration Date Model / Serial / Lot Prt Cath Infus Mri 8f - [id number] Implanted:Qty : 1 on 09/30/2018 by Afsaneh Stephen M.D. 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) COMPREHENSIVE METABOLIC PANEL, S/P Routine 12/24/2023 11:21 AM VACATION PLANNER Malignant Neoplasm Of Rectum (HCC) Secondary Malignant Neoplasm Colon (HCC) Secondary Malignant Neoplasm Liver (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) CARCINOEMBRYONIC AG (CEA), S Routine 12/24/2023 11:21 AM VACATION PLANNER Malignant Neoplasm Of Rectum (HCC) Secondary Malignant Neoplasm Colon (HCC) Secondary Malignant Neoplasm Liver (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) CBC WITH DIFFERENTIAL, B Routine 12/24/2023 11:21 AM VACATION PLANNER Malignant Neoplasm Of Rectum (HCC) Secondary Malignant Neoplasm Colon (HCC) Secondary Malignant Neoplasm Liver (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) BILIRUBIN DIRECT, S/P Routine 12/24/2023 11:21 AM VACATION PLANNER Malignant Neoplasm Of Rectum (HCC) Secondary Malignant Neoplasm Colon (HCC) Secondary Malignant Neoplasm Liver (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) OUTSIDE US BODY Routine 12/17/2023 11:05 AM VACATION PLANNER OUTSIDE CT BODY Routine 12/08/2023 11:00 AM VACATION PLANNER ECG Routine 10/28/2023 12:00 PM VACATION PLANNER Malignant Neoplasm Of Rectum (HCC) Pain Cancer Associated DERMATOLOGY IMAGE EXAM Routine 12:00 AM VACATION PLANNER from Last 3 Months Results * PET CT Skull to Thigh FDG (12/24/2023 11:31 AM VACATION PLANNER) Anatomical Region Laterality Modality Body, Nuclear Medicine PET R ST LOS, PET ARZ LOS, Nuclear Medicine PET FLA LOS, Nuclear Medicine N/A Positron Emission Tomography (PET), Positron Emission Tomography (PET) Impressions 12/24/2023 12:34 PM VACATION PLANNER Overall marked response of the FDG avid hepatic and eduar metastatic lesions. No new metastatic foci. Interval decrease in the number of metastatic pulmonary nodules. However, there is indeterminant mild increased FDG activity in a few residual pulmonary metastatic foci. Narrative 12/24/2023 12:34 PM VACATION PLANNER EXAM: ??PET CT SKULL TO THIGH FDG Serum glucose at time of F-18 FDG injection was 101 mg/dL. Patient followed standard dietary/fasting requirements for this exam. RADIOPHARMACEUTICAL/MEDS: Route: intravenous fludeoxyglucose F 18 injection INTERMEDIATE (FDG F-18),14.8 millicurie TECHNIQUE: ??F-18 FDG PET/CT scan was performed from the orbits through the thighs with low dose, non-contrast, free-breathing CT images for attenuation correction and anatomic localization (AC/AL), with imaging beginning at approximately 60 minutes after radiotracer injection. COMPARISON: ??08/29/2023 and 08/05/2022 FDG PET/CT. INDICATION: ??Restaging metastatic rectal carcinoma. Subsequent treatment strategy. The patient reports no recent vaccinations. FINDINGS: Marked partial response to interval chemotherapy. The numerous intensely FDG avid foci within the liver have either resolved or are barely perceptible on the current exam. For example, the lesion within the liver anteriorly, image 118, the SUV max has decreased from 8.1 to 5.0. Correspondingly, the lesion in the dome of liver just superiorly, image 107, has decreased from an SUV max of 6.9 to 2.1. Marked reduction in the number of FDG avid pulmonary nodules in the right and left lung and FDG avidity within the right hilar and subcarinal lymph nodes. For example, the right hilar subcarinal lymphadenopathy SUV max has decreased from 12.8 to 7.6. Correspondingly, the portacaval lymph nodes FDG SUV max has decreased from 10.0 to 5.0. Conversely, some of the pulmonary nodules have increased in FDG avidity. For example, the pulmonary nodule adjacent to the left ventricle and anterior to the left major fissure, image 97, has increased in FDG avidity from an SUV max of 4.9 to 12.1. Correspondingly, the posterolateral subpleural lesion in the right upper lobe just anterior to the right major fissure, image 84, the SUV max has increased from 5.1 to 12.8. Marked expansion of FDG avid marrow within the axial and appendicular skeleton compatible with physiologic response to interval chemotherapy. Procedure Note Kranthi Hills M.D. - 12/24/2023 EXAM: PET CT SKULL TO THIGH FDG Serum glucose at time of F-18 FDG injection was 101 mg/dL. Patientfollowed standard dietary/fasting requirements for this exam. RADIOPHARMACEUTICAL/MEDS: Route: intravenous fludeoxyglucose F 18 injection INTERMEDIATE (FDG F-18),14.8 millicurie TECHNIQUE: F-18 FDG PET/CT scan was performed from the orbits through thethighs with low dose, non-contrast, free-breathing CT images forattenuation correction and anatomic localization (AC/AL), with imagingbeginning at approximately 60 minutes after radiotracer injection. COMPARISON: 08/29/2023 and 08/05/2022 FDG PET/CT. INDICATION: Restaging metastatic rectal carcinoma. Subsequent treatmentstrategy. The patient reports no recent vaccinations. FINDINGS: Marked partial response to interval chemotherapy. The numerousintensely FDG avid foci within the liver have either resolved or arebarely perceptible on the current exam. For example, the lesion within the liver anteriorly, image 118, the SUVmax has decreased from 8.1 to 5.0. Correspondingly, the lesion in the domeof liver just superiorly, image 107, has decreased from an SUV max of 6.9to 2.1. Marked reduction in the number of FDG avid pulmonary nodules in the rightand left lung and FDG avidity within the right hilar and subcarinal lymphnodes. For example, the right hilar subcarinal lymphadenopathy SUV max hasdecreased from 12.8 to 7.6. Correspondingly, the portacaval lymph nodesFDG SUV max has decreased from 10.0 to 5.0. Conversely, some of the pulmonary nodules have increased in FDG avidity.For example, the pulmonary nodule adjacent to the left ventricle andanterior to the left major fissure, image 97, has increased in FDG avidityfrom an SUV max of 4.9 to 12.1. Correspondingly, the posterolateral subpleural lesion in the right upperlobe just anterior to the right major fissure, image 84, the SUV max hasincreased from 5.1 to 12.8. Marked expansion of FDG avid marrow within the axial and appendicularskeleton compatible with physiologic response to interval chemotherapy. IMPRESSION: Overall marked response of the FDG avid hepatic and eduar metastaticlesions. No new metastatic foci. Interval decrease in the number of metastatic pulmonary nodules. However,there is indeterminant mild increased FDG activity in a few residualpulmonary metastatic foci. Mere Lomeli P.A.-C. NM PRO CEDURES * (ABNORMAL) CBC with Differential, Blood (12/24/2023 11:21 AM VACATION PLANNER) Hemoglobin 14.1 13.2 - 16.6 g/dL 12/24/2023 11:58 AM VACATION PLANNER DTL Hematocrit 43.7 38.3 - 48.6 % 12/24/2023 11:58 AM VACATION PLANNER DTL Erythrocytes 4.74 4.35 - 5.65 x10(12)/L 12/24/2023 11:58 AM VACATION PLANNER DTL MCV 92.2 78.2 - 97.9 fL 12/24/2023 11:58 AM VACATION PLANNER DTL RBC Distrib Width 17.2(H) 11.8 - 14.5 % 12/24/2023 11:58 AM VACATION PLANNER DTL Platelet Count 103(L) 135 - 317 x10(9)/L 12/24/2023 12:40 PM VACATION PLANNER DTL Comment:Rechecked Leukocytes 9.8(H) 3.4 - 9.6 x10(9)/L 12/24/2023 12:40 PM VACATION PLANNER DTL Neutrophils 7.44(H) 1.56 - 6.45 x10(9)/L 12/24/2023 11:58 AM VACATION PLANNER DHPM Lymphocytes 1.07 0.95 - 3.07 x10(9)/L 12/24/2023 11:58 AM VACATION PLANNER DTL Monocytes 1.14(H) 0.26 - 0.81 x10(9)/L 12/24/2023 11:58 AM VACATION PLANNER DTL Eosinophils 0.13 0.03 - 0.48 x10(9)/L 12/24/2023 11:58 AM VACATION PLANNER DTL Basophils 0.05 0.01 - 0.08 x10(9)/L 12/24/2023 11:58 AM VACATION PLANNER DTL Blood (Blood, Venous) 12/24/2023 11:21 AM VACATION PLANNER 12/24/2023 11:43 AM VACATION PLANNER Noelle Reyes P.A.-C., P.A. LAB BLOOD ADD-ON [facility] [address] [place] [address], [facility] DTL [facility] [address] [place] [address] [facility] [address] [place] [address] * (ABNORMAL) CEA (Carcinoembryonic Antigen) (12/24/2023 11:21 AM VACATION PLANNER) Carcinoembryonic Ag (CEA), S 11.4(H) ng/mL 12/24/2023 5:04 PM VACATION PLANNER [facility] Comment: ----REFERENCE VALUE---- <=3.0 (Non-smokers) Some smokers may have elevated CEA, usually <5.0. ----ADDITIONAL INFORMATION---- The testing method is an immunoenzymatic assay manufactured by [employer] and performed on the [employer] DxI 800. ? Values obtained with different assay methods or kits may be different and cannot be used interchangeably. ? Test results cannot be interpreted as absolute evidence for the presence or absence of malignant disease. Blood (Blood, Venous) 12/24/2023 11:21 AM VACATION PLANNER 12/24/2023 4:06 PM VACATION PLANNER Noelle Reyes P.A.-C., P.A. LAB BLOOD ADD-ON [facility] [address] [place] [address] [facility] [address] [place] [address] * (ABNORMAL) Bilirubin, Direct (12/24/2023 11:21 AM VACATION PLANNER) Bilirubin, Direct, S 0.4(H) 0.0 - 0.3 mg/dL 12/24/2023 1:06 PM VACATION PLANNER DTL Blood (Blood, Venous) 12/24/2023 11:21 AM VACATION PLANNER 12/24/2023 11:56 AM VACATION PLANNER Noelle Reyes P.A.-C., P.A. LAB BLOOD ADD-ON Performing Organization Address City/[facility]/ZIP Co de Phone Number [facility] [address] [place] [address], [facility] [address] [place] [address] * (ABNORMAL) Comprehensive Metabolic Panel (12/24/2023 11:21 AM VACATION PLANNER) Potassium, S 4.2 3.6 - 5.2 mmol/L 12/24/2023 1:06 PM VACATION PLANNER DTL Sodium, S 141 135 - 145 mmol/L 12/24/2023 1:06 PM VACATION PLANNER DTL Chloride, S 102 98 - 107 mmol/L 12/24/2023 1:06 PM VACATION PLANNER DTL Bicarbonate, S 26 22 - 29 mmol/L 12/24/2023 1:06 PM VACATION PLANNER DTL Anion Gap 13 7 - 15 12/24/2023 1:06 PM VACATION PLANNER DTL BUN (Blood Urea Nitrogen), S 6(L) 8 - 24 mg/dL 12/24/2023 1:06 PM VACATION PLANNER DTL Creatinine 0.61(L) 0.74 - 1.35 mg/dL 12/24/2023 1:06 PM VACATION PLANNER DTL Estimated GFR (eGFR) >90 >=60 mL/min/BS A 12/24/2023 1:06 PM VACATION PLANNER DTL Comment: Estimated GFR calculated using the 2020 CKD_EPI creatinine equation. Calcium, Total, S 9.1 8.6 - 10.0 mg/dL 12/24/2023 1:06 PM VACATION PLANNER DTL Glucose, S 89 70 - 140 mg/dL 12/24/2023 1:06 PM VACATION PLANNER DTL Protein, Total, S 5.5(L) 6.3 - 7.9 g/dL 12/24/2023 1:06 PM VACATION PLANNER DTL Albumin, S 3.7 3.5 - 5.0 g/dL 12/24/2023 1:06 PM VACATION PLANNER DTL Aspartate Aminotransferase (AST), S 72(H) 8 - 48 U/L 12/24/2023 1:06 PM VACATION PLANNER DTL Alkaline Phosphatase, S 573(H) 40 - 129 U/L 12/24/2023 1:06 PM VACATION PLANNER DTL Alanine Aminotransferase (ALT), S 169(H) 7 - 55 U/L 12/24/2023 1:06 PM VACATION PLANNER DTL Bilirubin, Total, S 0.9 0.0 - 1.2 mg/dL 12/24/2023 1:06 PM VACATION PLANNER DTL Blood (Blood, Venous) 12/24/2023 11:21 AM VACATION PLANNER 12/24/2023 11:56 AM VACATION PLANNER Noelle Reyes P.A.-C., P.A. LAB BLOOD ADD-ON Performing Organization Address City/State/[facility] Co de Phone Number [facility] [address] [place] [address], [facility] [address] [place] [address] * US abdomen limited-Outside US Body (12/17/2023 11:05 AM VACATION PLANNER) 12/17/2023 11:0 3 AM VACATION PLANNER Narrative [facility] - 12/17/2023 2:11 PM VACATION PLANNER This order has been created and auto-finalized to support the import of outside images. If available, original interpretation can be found on the Media Tab in Chart Review, in Document Viewer, or as an image in QREADS. If a re-interpretation or overread is required please follow defined workflow. ?? Provider Not In System IMG US PROCEDURES [facility] NA * CT ABDOMEN PELVIS W CON-Outside CT Body (12/08/2023 11:00 AM VACATION PLANNER) 12/08/2023 11:0 0 AM VACATION PLANNER Narrative [facility] - 12/08/2023 2:27 PM VACATION PLANNER This order has been created and auto-finalized to support the import of outside images. If available, original interpretation can be found on the Media Tab in Chart Review, in Document Viewer, or as an image in QREADS. If a re-interpretation or overread is required please follow defined workflow. ?? Provider Not In System IMG CT PROCEDURES Performing Organization Address [facility] de Phone Number [facility]IMS NA * ECG 12 Lead (10/28/2023 12:00 PM VACATION PLANNER) Ventricular Rate ECG/Min 118 BPM MUSE TN Interval 146 ms MUSE QRSD Interval 88 ms MUSE QT Interval 326 ms MUSE QTC Interval 456 ms MUSE P [place] 47 degrees MUSE R [place] 72 degrees MUSE T Wave [place] 32 degrees MUSE 10/28/2023 12:0 0 PM VACATION PLANNER 10/28/2023 12:09 PM VACATION PLANNER Impressions MUSE - 10/28/2023 12:09 PM VACATION PLANNER Sinus tachycardia Otherwise normal ECG When compared with ECG of 19-FEB-2022 08:11, No significant change was found Reviewed by HAROLDO Tracy Narrative Procedure Note Robert Recio M.D. - 10/28/2023 IMPRESSION: Sinus tachycardia Otherwise normal ECG When compared with ECG of 19-FEB-2022 08:11, No significant change was found Reviewed by HAROLDO Tracy Louisa Padilla P.A.-C. ECG ORDERABL ES Performing Organization Address [facility] de Phone Number MUSE NA * Entire Body-Dermatology Image Exam (10/28/2023 12:00 AM VACATION PLANNER) Narrative [facility] - 10/29/2023 8:29 AM VACATION PLANNER This order has been created and auto-finalized to support the import of images acquired without order. The clinical documentation to support these images can be found on the encounter that produced images. Provider Not In System IMG NON RAD IMAGI NG PROCEDURES [facility] NA from Last 3 Months Advance Directives For more information, please contact: [phone] Latest Code Status on File Code Status [...] Answer Comments Full Code: Discussed Care Teams Community Sports Coordinator Relationship Specialty Start Date End Date Elsewhere, Pcp PCP - General Internal Medicine 10/14/22
--- OUTSIDE RECORDS SUMMARY | 2023-12-31 10:41 | XMS_ITS | Referral Summary ---
Author Name Unknown Organization [facility] Address [address] [place] [address] Care Team Providers Care Gas Operations Analyst Name Role Phone Elsewhere, Pcp Primary Care Provider Unavailabl e Source Comments Patient records contain information from all sites at [facility]. For routine questions regarding patient records, call [phone] during business hours, M-F 8:00 AM - 5:00 PM Central Time. Record requests for emergency care only can be directed to [phone] at any time.[facility] Encounters Date Type Department Care Team Description 12/24/2023 2:15 PM RAIL SETTER Office Visit Department of Palliative Care in [place], [place] [address] [place] [address] Aylin Smith, CINDY, C.N.P., M.S.N. Catrachita Padilla M.D., M.S. 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 12/17/2023 Orders Only Pharmacy Prior [facility] [phone] Xiomara Blood 12/16/2023 Orders Only [facility] - [address] [phone] Dolores Khanna 12/10/2023 Refill Department of Oncology in [address] [phone] Giorgio Fishman M.D. Med Refill ( pantoprazole) 12/03/2023 1:15 PM RAIL SETTER Telemedicine Department of Palliative Care in [address] [phone] Catrachita Padilla M.D., M.S. Malignant Neoplasm Of Rectum (HCC) (Primary Dx); Pain Cancer Associated; Nausea; Palliative Care 12/01/2023 8:30 AM RAIL SETTER Office Visit Division of Pain Medicine in [address] [phone] Sean Shen D.O. Pain Cancer Associated (Primary Dx) 11/26/2023 3:45 PM RAIL SETTER Clinical Communication Virtual Review in [place], [place] [address] [place] [address] 10/28/2023 Ancillary Procedure Department of Dermatology 10/28/2023 10:40 AM RAIL SETTER Comprehensive Visit Department of Dermatology in [place], [place] [address] [place] [phone] Dakota Smith M.D. 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 Annie Mak, L.I.C.S.W., M.S.W. Palliative Care (Primary Dx); Counseling Life Circumstance Problem 10/20/2023 Refill Department of Oncology in [address] [phone] Kristi Dominique M.D. Med Change Request 10/20/2023 8:30 AM RAIL SETTER Telemedicine Department of Palliative Care in [address] [phone] Louisa Padilla P.A.-C. [place], Emma J, APRN C.N.P., D.N.P. Pain Cancer Associated (Primary Dx); Malignant Neoplasm Of Rectum (HCC); Pain Neuropathic; Pain Low Back Unspecified; Nausea And Vomiting; Constipation; Counseling Life Circumstance Problem; Palliative Care 10/14/2023 11:30 AM RAIL SETTER Clinical Communication Virtual Review in [place], [place] [address] [place] [address] Pre-visit Intake 09/30/2023 Clinical Communication Division of Pain Medicine in [place], [place] [address] [place] [address] Marlon Garcia M.D. Nerve block response from Last 3 Months Allergies Active Allergy [...] on 5 minutes, and rinse. Use daily . 118 mL 3 10/28/20 Active hydrocortisone 2.5 % ointment Apply 1 Application topically 2 (two) times a day. Apply to affected areas of the face and groin twice daily . 30 g 3 10/28/20 Active triamcinolone (KENALOG) 0.1 % cream Apply 1 Application topically 2 (two) times a day as needed (Rash). Apply to affected areas of the body twice daily . 240 g 3 10/28/20 Active methadone dilution (DOLOPHINE) 0.5 mg/mL injection Take 5 mg by mouth. 0 09/30/20 Active HYDROmorphone (Dilaudid) 4 mg tablet Take 4 mg by mouth. 0 09/30/20 Active amLODIPine (NORVASC) 10 mg tablet Take [...] tablet 0 10/27/20 23 024 Discontinued omega 2-xys-tsr-fish oil 1,000 mg (120 mg-180 mg) capsule Take 2 capsules by mouth. 0 05/16/20 22 024 Discontinued(Du plicate order) Active Problems Problem Noted Date Diagnosed Date Palliative Care 10/23/2023 Abdominal Pain 02/19/2022 Secondary Malignant Neoplasm Liver 02/18/2022 Secondary Malignant Neoplasm Colon 07/13/2020 Overview: Added automatically from request for surgery [id number] Secondary Malignant Neoplasm Of Lung Laterality Unknown 03/30/2020 Pulmonary Nodule Computed Tomography Indetermina te 09/27/2019 Nodules Pulmonary Multiple 09/10/2019 Takedown Ileostomy Status Post (Reversal) 2018 Ileostomy Status 12/04/2018 Overview: Added automatically from request for surgery [id number] Thrombocytopenia Drug Induced 12/02/2018 Follow Up Examination [...] rectal cancer, further evaluation at [facility] Resolved Problems Problem Noted Date Diagnosed [...] week 02/03/2023 How often do you attend [facility] or jainism services? Never 02/03/2023 Do you belong to [...] Answer Date Recorded PHQ-2 Score 0 04/25/2019 [facility] - Occupational Stress [...] degree (e.g., MA, MS, Ana Lilia, MEd, LOCAL TANKER TRUCK DRIVER, GORDO) 02/15/2022 Sex and Gender Information Value Date Recorded Sex Assigned at Male 04/23/2018 1:23 PM CDT Gender Identity Male 04/23/2018 1:23 PM CDT Sexual Orientation Straight 04/23/2018 1: 23 PM CDT Last Filed Vital Signs Vital Sign Reading Time Taken Comments Blood Pressure 122/81 12/24/2023 4:08 PM RAIL SETTER Pulse 133 12/24/2023 4:08 PM RAIL SETTER Temperature 36.5 ??C (97.7 ??F) 12/24/2023 4 :08 PM RAIL SETTER Respiratory Rate 16 12/24/2023 4:08 PM RAIL SETTER Oxygen Saturation 98% 12/24/2023 4:0 8 PM RAIL SETTER Inhaled Oxygen Concentration - - Weight 78.7 kg (173 lb 8 oz) 12/24/2023 4:08 PM RAIL SETTER pts states that today's wt is correct Height 179.3 cm (5' 10.59) 12/24/2023 4:08 PM RAIL SETTER Body Mass Index 24.48 12/24/2023 4:08 PM RAIL SETTER Plan of Treatment Upcoming Encounters Date Type Department Care Team (Latest Contact Info) Description 03/23/2024 7:30 AM CDT Clinical Communication Virtual Review in [place], [place] [address] [place] [address] 03/24/2024 9:20 AM CDT Lab Department of Infusion Therapy in [place], [place] [address] [place] [phone] Ned Alegria M.D. [address] [place] [phone] 03/24/2024 11:00 AM CDT Appointment Department of Radiology, [facility], in [place], [place] [address] [place] [phone] Ned Alegria M.D. [address] [place] [phone] 03/24/2024 3:30 PM CDT Office Visit Department of Oncology in [place], [place] [address] [place] [phone] Ned Alegria M.D. [address] [place] [phone] Goals Goal Patient Goal Type Associated Problems Recent Progress Patient-Stated? Author Your pain? Symptom Management 9(11/20/2022 2:41 PM RAIL SETTER) No Phyllis-Girma Bush, R.N., O.C.N. Note: 05/24/2021: Pain algorithm completed. [facility] 05/24/2021: Followup [...] that his need for medication may change. [facility] 06/07/2021: Pain rating over the [...] he can contact us again if needed. [facility] Medical Devices Implanted Type Area Assembler Deck And Hull Device Identifier Shelf Expiration Date Model / Serial / Lot [employer] Seprafilm 5x6 - [id number] Implanted:Qty : 1 on 08/21/2018 by Jamin Huerta M.D. at [facility] Hardware e.g. pins/screws/landon s Pocket Change Card 4301-02 / / Prt Cath Infus Mri 6f - [id number] Implanted:Qty : 1 on 04/05/2020 by Afsaneh Stephen M.D. at [facility] Implantable [employer] 06/16/2021 [id number] / / [id number] Explanted Type Area Assembler Deck And Hull Device Identifier Shelf Expiration Date Model / Serial / Lot Prt Cath Infus Mri 8f - [id number] Implanted:Qty : 1 on 09/30/2018 by Afsaneh Stephen M.D. at [facility] Explanted:Qty : 1 on 03/15/2019 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) COMPREHENSIVE METABOLIC PANEL, S/P Routine 12/24/2023 11:21 AM RAIL SETTER Malignant Neoplasm Of Rectum (HCC) Secondary Malignant Neoplasm Colon (HCC) Secondary Malignant Neoplasm Liver (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) CARCINOEMBRYONIC AG (CEA), S Routine 12/24/2023 11:21 AM RAIL SETTER Malignant Neoplasm Of Rectum (HCC) Secondary Malignant Neoplasm Colon (HCC) Secondary Malignant Neoplasm Liver (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) CBC WITH DIFFERENTIAL, B Routine 12/24/2023 11:21 AM RAIL SETTER Malignant Neoplasm Of Rectum (HCC) Secondary Malignant Neoplasm Colon (HCC) Secondary Malignant Neoplasm Liver (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) BILIRUBIN DIRECT, S/P Routine 12/24/2023 11:21 AM RAIL SETTER Malignant Neoplasm Of Rectum (HCC) Secondary Malignant Neoplasm Colon (HCC) Secondary Malignant Neoplasm Liver (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) OUTSIDE US BODY Routine 12/17/2023 11:05 AM RAIL SETTER OUTSIDE CT BODY Routine 12/08/2023 11:00 AM RAIL SETTER ECG Routine 10/28/2023 12:00 PM RAIL SETTER Malignant Neoplasm Of Rectum (HCC) Pain Cancer Associated DERMATOLOGY IMAGE EXAM Routine 12:00 AM RAIL SETTER from Last 3 Months Results * PET CT Skull to Thigh FDG (12/24/2023 11:31 AM RAIL SETTER) Anatomical Region Laterality Modality Body, Nuclear Medicine PET R ST LOS, PET ARZ LOS, Nuclear Medicine PET FLA LOS, Nuclear Medicine N/A Positron Emission Tomography (PET), Positron Emission Tomography (PET) Impressions 12/24/2023 12:34 PM RAIL SETTER Overall marked response of the FDG avid hepatic and eduar metastatic lesions. No new metastatic foci. Interval decrease in the number of metastatic pulmonary nodules. However, there is indeterminant mild increased FDG activity in a few residual pulmonary metastatic foci. Narrative 12/24/2023 12:34 PM RAIL SETTER EXAM: ??PET CT SKULL TO THIGH FDG Serum glucose at time of F-18 FDG injection was 101 mg/dL. Patient followed standard dietary/fasting requirements for this exam. RADIOPHARMACEUTICAL/MEDS: Route: intravenous fludeoxyglucose F 18 injection ASSISTED (FDG F-18),14.8 millicurie TECHNIQUE: ??F-18 FDG PET/CT [...] RADIOPHARMACEUTICAL/MEDS: Route: intravenous fludeoxyglucose F 18 injection ASSISTED (FDG F-18),14.8 millicurie TECHNIQUE: F-18 FDG PET/CT [...] activity in a few residualpulmonary metastatic foci. Noelle Reyes P.A.-C. PCandidoACandido [place] PRO CEDURES * (ABNORMAL) CBC with Differential, Blood (12/24/2023 11:21 AM RAIL SETTER) Hemoglobin 14.1 13.2 - 16.6 g/dL 12/24/2023 11:58 AM RAIL SETTER DTL Hematocrit 43.7 38.3 - 48.6 % 12/24/2023 11:58 AM RAIL SETTER DTL Erythrocytes 4.74 4.35 - 5.65 x10(12)/L 12/24/2023 11:58 AM RAIL SETTER DTL MCV 92.2 78.2 - 97.9 fL 12/24/2023 11:58 AM RAIL SETTER DTL RBC Distrib Width 17.2(H) 11.8 - 14.5 % 12/24/2023 11:58 AM RAIL SETTER DTL Platelet Count 103(L) 135 - 317 x10(9)/L 12/24/2023 12:40 PM RAIL SETTER DTL Comment:Rechecked Leukocytes 9.8(H) 3.4 - 9.6 x10(9)/L 12/24/2023 12:40 PM RAIL SETTER DTL Neutrophils 7.44(H) 1.56 - 6.45 x10(9)/L 12/24/2023 11:58 AM RAIL SETTER DHPM Lymphocytes 1.07 0.95 - 3.07 x10(9)/L 12/24/2023 11:58 AM RAIL SETTER DTL Monocytes 1.14(H) 0.26 - 0.81 x10(9)/L 12/24/2023 11:58 AM RAIL SETTER DTL Eosinophils 0.13 0.03 - 0.48 x10(9)/L 12/24/2023 11:58 AM RAIL SETTER DTL Basophils 0.05 0.01 - 0.08 x10(9)/L 12/24/2023 11:58 AM RAIL SETTER DTL Blood (Blood, Venous) 12/24/2023 11:21 AM RAIL SETTER 12/24/2023 11:43 AM RAIL SETTER Noelle Reyes P.A.-C., P.A. LAB BLOOD ADD-ON [facility] [address] [place] [address], [facility] DTL [facility] [address] [place] [address] * (ABNORMAL) CEA (Carcinoembryonic Antigen) (12/24/2023 11:21 AM RAIL SETTER) Carcinoembryonic Ag (CEA), S 11.4(H) ng/mL 12/24/2023 5:04 PM RAIL SETTER [facility] Comment: ----REFERENCE VALUE---- <=3.0 (Non-smokers) Some smokers may have elevated CEA, usually <5.0. ----ADDITIONAL INFORMATION---- The testing method is an immunoenzymatic assay manufactured by [employer] and performed on the [employer] DxI 800. ? Values obtained with different assay methods or kits may be different and cannot be used interchangeably. ? Test results cannot be interpreted as absolute evidence for the presence or absence of malignant disease. Blood (Blood, Venous) 12/24/2023 11:21 AM RAIL SETTER 12/24/2023 4:06 PM RAIL SETTER Noelle Reyes P.A.-C., P.A. LAB BLOOD ADD-ON [facility] [address] [place] [address] [facility] [address] [place] [address] * (ABNORMAL) Bilirubin, Direct (12/24/2023 11:21 AM RAIL SETTER) Bilirubin, Direct, S 0.4(H) 0.0 - 0.3 mg/dL 12/24/2023 1:06 PM RAIL SETTER DTL Blood (Blood, Venous) 12/24/2023 11:21 AM RAIL SETTER 12/24/2023 11:56 AM RAIL SETTER Noelle Reyes P.A.-C., P.A. LAB BLOOD ADD-ON Performing Organization Address City/[facility]/ZIP Co de Phone Number [facility] [address] [facility] [address] [place] [address] * (ABNORMAL) Comprehensive Metabolic Panel (12/24/2023 11:21 AM RAIL SETTER) Potassium, S 4.2 3.6 - 5.2 mmol/L 12/24/2023 1:06 PM RAIL SETTER DTL Sodium, S 141 135 - 145 mmol/L 12/24/2023 1:06 PM RAIL SETTER DTL Chloride, S 102 98 - 107 mmol/L 12/24/2023 1:06 PM RAIL SETTER DTL Bicarbonate, S 26 22 - 29 mmol/L 12/24/2023 1:06 PM RAIL SETTER DTL Anion Gap 13 7 - 15 12/24/2023 1:06 PM RAIL SETTER DTL BUN (Blood Urea Nitrogen), S 6(L) 8 - 24 mg/dL 12/24/2023 1:06 PM RAIL SETTER DTL Creatinine 0.61(L) 0.74 - 1.35 mg/dL 12/24/2023 1:06 PM RAIL SETTER DTL Estimated GFR (eGFR) >90 >=60 mL/min/BS A 12/24/2023 1:06 PM RAIL SETTER DTL Comment: Estimated GFR calculated using the 2020 CKD_EPI creatinine equation. Calcium, Total, S 9.1 8.6 - 10.0 mg/dL 12/24/2023 1:06 PM RAIL SETTER DTL Glucose, S 89 70 - 140 mg/dL 12/24/2023 1:06 PM RAIL SETTER DTL Protein, Total, S 5.5(L) 6.3 - 7.9 g/dL 12/24/2023 1:06 PM RAIL SETTER DTL Albumin, S 3.7 3.5 - 5.0 g/dL 12/24/2023 1:06 PM RAIL SETTER DTL Aspartate Aminotransferase (AST), S 72(H) 8 - 48 U/L 12/24/2023 1:06 PM RAIL SETTER DTL Alkaline Phosphatase, S 573(H) 40 - 129 U/L 12/24/2023 1:06 PM RAIL SETTER DTL Alanine Aminotransferase (ALT), S 169(H) 7 - 55 U/L 12/24/2023 1:06 PM RAIL SETTER DTL Bilirubin, Total, S 0.9 0.0 - 1.2 mg/dL 12/24/2023 1:06 PM RAIL SETTER DTL Blood (Blood, Venous) 12/24/2023 11:21 AM RAIL SETTER 12/24/2023 11:56 AM RAIL SETTER Noelle Reyes P.A.-C., P.A. [place] [address], [facility] [address] [place] [address] * US abdomen limited-Outside US Body (12/17/2023 11:05 AM RAIL SETTER) 12/17/2023 11:0 3 AM RAIL SETTER Narrative IIMS - 12/17/2023 2:11 PM RAIL SETTER This order has been created and auto-finalized to support the import of outside images. If available, original interpretation can be found on the Media Tab in Chart Review, in Document Viewer, or as an image in QREADS. If a re-interpretation or overread is required please follow defined workflow. ?? Provider Not In System IMG US PROCEDURES Performing Organization Address [facility] de Phone Number IIMS NA * CT ABDOMEN PELVIS W CON-Outside CT Body (12/08/2023 11:00 AM RAIL SETTER) 12/08/2023 11:0 0 AM RAIL SETTER Narrative IIMS - 12/08/2023 2:27 PM RAIL SETTER This order has been created and auto-finalized to support the import of outside images. If available, original interpretation can be found on the Media Tab in Chart Review, in Document Viewer, or as an image in QREADS. If a re-interpretation or overread is required please follow defined workflow. ?? Provider Not In System IMG CT PROCEDURES Performing Organization Address [facility] de Phone Number IIMS NA * ECG 12 Lead (10/28/2023 12:00 PM RAIL SETTER) Ventricular Rate ECG/Min 118 BPM MUSE IN Interval 146 ms MUSE QRSD Interval 88 ms MUSE QT Interval 326 ms MUSE QTC Interval 456 ms MUSE P [place] 47 degrees MUSE R [place] 72 degrees MUSE T Wave [place] 32 degrees MUSE 10/28/2023 12:0 0 PM RAIL SETTER 10/28/2023 12:09 PM RAIL SETTER Impressions MUSE - 10/28/2023 12:09 PM RAIL SETTER Sinus tachycardia Otherwise normal ECG When compared with ECG of 19-FEB-2022 08:11, No significant change was found Reviewed by HAROLDO Tracy Narrative Procedure Note Robert Recio M.D. - 10/28/2023 IMPRESSION: Sinus tachycardia Otherwise normal ECG When compared with ECG of 19-FEB-2022 08:11, No significant change was found Reviewed by HAROLDO Tracy Louisa Padilla P.A.-C. ECG ORDERABL ES Performing Organization Address [facility] de Phone Number MUSE NA * Entire Body-Dermatology Image Exam (10/28/2023 12:00 AM RAIL SETTER) Narrative IIMS - 10/29/2023 8:29 AM RAIL SETTER This order has been created and auto-finalized to support the import of images acquired without order. The clinical documentation to support these images can be found on the encounter that produced images. Provider Not In System IMG NON RAD IMAGI NG PROCEDURES IIMS NA from Last 3 Months Advance Directives For more information, please contact: [phone] Latest Code Status on File Code Status [...] Answer Comments Full Code: Discussed Care Teams Gas Operations Analyst Relationship Specialty Start Date End Date Elsewhere, Pcp PCP - General Internal Medicine 10/14/22
--- OUTSIDE RECORDS SUMMARY | 2023-12-31 10:41 | XMS_ITS | Encounter Summary ---
Author Name Unknown Organization [facility] Address [address] [place] [address] Care Team Providers Care Chairman Ceo Name Role Phone Elsewhere, Pcp Primary Care Provider Unavailabl e Encounter Details Date Type Department Care Team (Late st Contact Info) Description 12/24/2023 11:00 AM DIAL BUFFER Lab Department of Infusion Therapy in [place], [place] [address] [place] [phone] Noelle Reyes P.A.-C., P.A. [address] [place] [phone] Secondary Malignant Neoplasm Of Lung Laterality Unknown [...] How often do you attend chur or congregational services? Never 02/03/2023 Do you [...] Answer Date Recorded PHQ-2 Score 0 04/25/2019 [facility] - Occupational [...] degree (e.g., MA, MS, Ana Lilia, MEd, WATER LEAK REPAIRER, GORDO) 02/15/2022 Sex and Gender Information Value Date Recorded Sex Assigned at Male 04/23/2018 1:23 PM CDT Gender Identity Male 04/23/2018 1:23 PM CDT Sexual Orientation Straight 04/23/2018 1: 23 PM CDT documented as of this encounter Plan of Treatment Upcoming Encounters Date Type Department Care Team (Latest Contact Info) Description 03/23/2024 7:30 AM CDT Clinical Communication Virtual Review in [place], [place] [address] [place], [place] [phone] 03/24/2024 9:20 AM CDT Lab Department of Infusion Therapy in [place], [place] [address] [place] [phone] Ned Alegria M.D. [address] [place] [phone] 03/24/2024 11:00 AM CDT Appointment Department of Radiology, [facility], in [place], [place] [address] [place] [phone] Ned Alegria M.D. [address] [place] [phone] 03/24/2024 3:30 PM CDT Office Visit Department of Oncology in [place], [place] [address] [place] [phone] Ned Alegria M.D. [address] [place] [phone] documented as of this encounter Goals Goal Patient Goal Type Associated Problems Recent Progress Patient-Stated? Author Your pain? Symptom Management 9(11/20/2022 2:41 PM DIAL BUFFER) Raisa Ferguson-Girma Bush, RCandidoN., O.C.N. 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) BILIRUBIN DIRECT, S/P Routine 12/24/2023 11:21 AM DIAL BUFFER Malignant Neoplasm Of Rectum (HCC) Secondary Malignant Neoplasm Colon (HCC) Secondary Malignant Neoplasm Liver (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) COMPREHENSIVE METABOLIC PANEL, S/P Routine 12/24/2023 11:21 AM DIAL BUFFER Malignant Neoplasm Of Rectum (HCC) Secondary Malignant Neoplasm Colon (HCC) Secondary Malignant Neoplasm Liver (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) documented in this encounter Results * (ABNORMAL) Comprehensive Metabolic Panel (12/24/2023 11:21 AM DIAL BUFFER) Potassium, S 4.2 3.6 - 5.2 mmol/L 12/24/2023 1:06 PM DIAL BUFFER DTL Sodium, S 141 135 - 145 mmol/L 12/24/2023 1:06 PM DIAL BUFFER DTL Chloride, S 102 98 - 107 mmol/L 12/24/2023 1:06 PM DIAL BUFFER DTL Bicarbonate, S 26 22 - 29 mmol/L 12/24/2023 1:06 PM DIAL BUFFER DTL Anion Gap 13 7 - 15 12/24/2023 1:06 PM DIAL BUFFER DTL BUN (Blood Urea Nitrogen), S 6(L) 8 - 24 mg/dL 12/24/2023 1:06 PM DIAL BUFFER DTL Creatinine 0.61(L) 0.74 - 1.35 mg/dL 12/24/2023 1:06 PM DIAL BUFFER DTL Estimated GFR (eGFR) >90 >=60 mL/min/BS A 12/24/2023 1:06 PM DIAL BUFFER DTL Comment: Estimated GFR calculated using the 2020 CKD_EPI creatinine equation. Calcium, Total, S 9.1 8.6 - 10.0 mg/dL 12/24/2023 1:06 PM DIAL BUFFER DTL Glucose, S 89 70 - 140 mg/dL 12/24/2023 1:06 PM DIAL BUFFER DTL Protein, Total, S 5.5(L) 6.3 - 7.9 g/dL 12/24/2023 1:06 PM DIAL BUFFER DTL Albumin, S 3.7 3.5 - 5.0 g/dL 12/24/2023 1:06 PM DIAL BUFFER DTL Aspartate Aminotransferase (AST), S 72(H) 8 - 48 U/L 12/24/2023 1:06 PM DIAL BUFFER DTL Alkaline Phosphatase, S 573(H) 40 - 129 U/L 12/24/2023 1:06 PM DIAL BUFFER DTL Alanine Aminotransferase (ALT), S 169(H) 7 - 55 U/L 12/24/2023 1:06 PM DIAL BUFFER DTL Bilirubin, Total, S 0.9 0.0 - 1.2 mg/dL 12/24/2023 1:06 PM DIAL BUFFER [facility] Blood (Blood, Venous) 12/24/2023 11:21 AM DIAL BUFFER 12/24/2023 11:56 AM DIAL BUFFER Noelle Reyes P.A.-C., P.A. LAB BLOOD ADD-ON [facility] [address] [place] [address], [facility] [address] [place] [address] * (ABNORMAL) CEA (Carcinoembryonic Antigen) (12/24/2023 11:21 AM DIAL BUFFER) Pathologist [facility] Carcinoembryonic Ag (CEA), S 11.4(H) ng/mL 12/24/2023 5:04 PM DIAL BUFFER [facility] Comment: ----REFERENCE VALUE---- <=3.0 (Non-smokers) Some smokers may have elevated CEA, usually <5.0. ----ADDITIONAL INFORMATION---- The testing method is an immunoenzymatic assay manufactured by [employer] and performed on the Posse DxI 800. ? Values obtained with different assay methods or kits may be different and cannot be used interchangeably. ? Test results cannot be interpreted as absolute evidence for the presence or absence of malignant disease. Blood (Blood, Venous) 12/24/2023 11:21 AM DIAL BUFFER 12/24/2023 4:06 PM DIAL BUFFER Noelle Reyes P.A.-C., P.A. LAB BLOOD ADD-ON [facility] [address] [place] [address] [facility] [address] [place] [address] * (ABNORMAL) CBC with Differential, Blood (12/24/2023 11:21 AM DIAL BUFFER) Pathologist [facility] Hemoglobin 14.1 13.2 - 16.6 g/dL 12/24/2023 11:58 AM DIAL BUFFER DTL Hematocrit 43.7 38.3 - 48.6 % 12/24/2023 11:58 AM DIAL BUFFER DTL Erythrocytes 4.74 4.35 - 5.65 x10(12)/L 12/24/2023 11:58 AM DIAL BUFFER DTL MCV 92.2 78.2 - 97.9 fL 12/24/2023 11:58 AM DIAL BUFFER DTL RBC Distrib Width 17.2(H) 11.8 - 14.5 % 12/24/2023 11:58 AM DIAL BUFFER DTL Platelet Count 103(L) 135 - 317 x10(9)/L 12/24/2023 12:40 PM DIAL BUFFER DTL Comment:Rechecked Leukocytes 9.8(H) 3.4 - 9.6 x10(9)/L 12/24/2023 12:40 PM DIAL BUFFER DTL Neutrophils 7.44(H) 1.56 - 6.45 x10(9)/L 12/24/2023 11:58 AM DIAL BUFFER PM Lymphocytes 1.07 0.95 - 3.07 x10(9)/L 12/24/2023 11:58 AM DIAL BUFFER DTL Monocytes 1.14(H) 0.26 - 0.81 x10(9)/L 12/24/2023 11:58 AM DIAL BUFFER DTL Eosinophils 0.13 0.03 - 0.48 x10(9)/L 12/24/2023 11:58 AM DIAL BUFFER DTL Basophils 0.05 0.01 - 0.08 x10(9)/L 12/24/2023 11:58 AM DIAL BUFFER DTL Blood (Blood, Venous) 12/24/2023 11:21 AM DIAL BUFFER 12/24/2023 11:43 AM DIAL BUFFER Noelle Reyes P.A.-C., P.A. LAB BLOOD ADD-ON [facility] [address] [place] [address], [facility] DTL [facility] [address] [place] [address] [facility] [address] [place] [address] * (ABNORMAL) Bilirubin, Direct (12/24/2023 11:21 AM DIAL BUFFER) Bilirubin, Direct, S 0.4(H) 0.0 - 0.3 mg/dL 12/24/2023 1:06 PM DIAL BUFFER DTL Blood (Blood, Venous) 12/24/2023 11:21 AM DIAL BUFFER 12/24/2023 11:56 AM DIAL BUFFER Noelle Reyes P.A.-C. PCandidoACandido LAB BLOOD ADD-ON [facility] [address] [place] [address], [facility] [address] [place] [address] documented in this encounter Visit Diagnoses Diagnosis [...] intra-catheter, As needed, line care, Starting on Fri12/24/23 at 1114, When no infusion to maintain patency: For IVAD accessed, not in use, and/or prior to hospital discharge, flush every 7 days after 0.9% preservative-free NaCL flush. For IVAD NOT accessed or used, flush every 4 weeks after 0.9% preservative-free NaCL flush. Given 12/24/2023 11:26 AM DIAL BUFFER 500 Units sodium chloride 0.9 % injection 10 mL 10 mL, intra-catheter, As needed, line care, Starting on Fri12/24/23 at 1114, When IVAD Accessed and in Use: Flush prior to and following infusion, between multiple consecutive infusions, and prior to blood sampling. Given 12/24/2023 11:26 AM DIAL BUFFER 10 mL sodium chloride 0.9 % injection 20 mL 20 mL, intra-catheter, As needed, line care, Starting on Fri12/24/23 at 1114, When IVAD Accessed and in Use: Flush post blood transfusion or post blood sampling. Given 12/24/2023 11:26 AM DIAL BUFFER 20 mL documented in this encounter Additional Health Concerns Assessment Noted Time PHQ-9 Depression Total Score: 7 05/26/20 18 10:22 PM CDT documented as of this encounter Care Teams Chairman Ceo Relationship Specialty Start Date End Date Elsewhere, Pcp PCP - General Internal Medicine 10/14/22 documented as of this encounter
--- OUTSIDE RECORDS SUMMARY | 2023-12-31 10:41 | XMS_ITS | Encounter Summary ---
Author Name Unknown Organization [facility] Address [address] [place] [phone] Care Team Providers Care Department [employer] Name Role Phone Elsewhere, Pcp Primary Care Provider Unavailabl e Reason for Referral * Outpatient (Routine) - Authorized Specialty Diagnoses / Procedures Referred By Contac t Referred To Contact Palliative Medicine Catrachita Padilla M.D., M.S. [address] [place] [phone] [facility] Referral ID Status Reason Start Date Expiration Date V isits Requested Visits Authorized [id number] Authorized 12/24/2023 06/24/2025 1 1 Scheduling Instructions To be scheduled after Oncology in person visit scheduled SEALER * Outpatient (Routine) - Authorized Specialty Diagnoses / Procedures Referred By Contac t Referred To Contact Palliative Medicine Catrachita Padilla M.D., M.S. [address] [place] [phone] [facility] Referral ID Status Reason Start Date Expiration Date V isits Requested Visits Authorized [id number] Authorized 12/24/2023 06/24/2025 1 1 Scheduling Instructions 4-6 weeks SEALER Reason for Visit * Outpatient (Routine) - Closed Specialty Diagnoses / Procedures Referred By Contac t Referred To Contact Palliative Medicine Diagnoses n/a Catrachita Padilla M.D., M.S. [address] [place] [phone] [facility] Referral ID Status Reason Start Date Expiration Date Visits Re quested Visits Authorized [id number] Closed 12/04/2023 12/03/2026 1 1 Encounter Details Date Type Department Care Team (Late st Contact Info) Description 12/24/2023 2:15 PM BAG SEALER Office Visit Department of Palliative Care in [place], [place] [address] [place] [phone] Aylin Smith APRN, C.N.P., M.S.N. [address] [place] [phone] Catrachita Padilla M.D., M.S. [address] [place] [phone] Malignant Neoplasm Of Rectum (HCC) (Primary Dx); Secondary Malignant Neoplasm Of Lung Laterality Unknown (HCC); Pain Cancer Associated; Palliative Care; Pain Neuropathic Social History Tobacco Use Types Packs/Day Years [...] often do you attend chur ch or scientologist services? Never 02/03/2023 Do you belong to [...] (e.g., MA, MS, Ana Lilia, MEd, COMMUNITY ORGANIZER, GORDO) 02/15/2022 Sex and Gender Information Value Date Recorded Sex Assigned at Male 04/23/2018 1:23 PM CDT Gender Identity Male 04/23/2018 1:23 PM CDT Sexual Orientation Straight 04/23/2018 1: 23 PM CDT documented as of this encounter Last Filed Vital Signs Vital Sign Reading Time Taken Comments Blood Pressure 110/80 12/24/2023 1:58 PM BAG SEALER Pulse 136 12/24/2023 1:58 PM BAG SEALER Temperature 36.5 ??C (97.7 ??F) 12/24/2023 1:58 PM CS T Respiratory Rate - - Oxygen Saturation 97% 12/24/2023 1:58 PM BAG SEALER Inhaled Oxygen Concentration - - Weight - - Height - - Body Mass Index - - documented in this encounter Progress Notes * Catrachita Padilla M.D., M.S. - 12/24/2023 2:15 PM CST SUBJECTIVE CHIEF COMPLAINT/REASON FOR VISIT Luis Tabares is a 43-year-old man from [place], [place] with metastatic rectal cancer who is followed in the outpatient Palliative Care Clinic for non-pain symptoms, pain, and psychosocial support. Interval History: The last few weeks have been challenging with ~12 days of diarrhea including 3 days of hospitalization in the setting of hypokalemia and hypomagnesemia. The hospitalization also exacerbated Luis's back pain. At present, his last episode of diarrhea was on Friday. On Friday he had a mostly normal bowel movement. Currently he is taking 1-2 tablets of imodium before meals and lomotil 1 tablet every6 hours prescribed by his local Oncologist. Luis had also been prescribed concentrated morphine; hehad an ED visit because he accidentally took more than prescribed, but did not have symptoms concerning for overdose. He has been receiving daily infusions of potassium and magnesium at [facility]. In this setting, he stopped and has not been on the uptitration of pregabalin with the diarrhea. Took 3-4 days of the pregabalin 25mg PO bid prior to discontinuing. He has been feeling discouraged about chemotherapy. Luis just received the PET CT result that demonstrated marked improvement, and is not feeling excited about it as expected. He notes that he feels like this is temporary in the setting of the diarrhea, his 's father being in the ICU, seasonal mood changes, and other life stressors. ROS: As per HPI and patient reported data otherwise reviewed and non-contributory in the course of the current encounter. OBJECTIVE PHYSICAL EXAM T 36.5F, HR 136, BP 110/80 General: Alert, no acute distress Eyes: Conjunctiva clear, sclera non-icteric Mouth: Mucous membranes moist, no mucosal lesions. Lungs: No use of accessory muscles of respiration, non-labored breathing pattern. Abdomen: Non-distended Musculoskeletal: Normal gait. Neurologic: Preserved strength and sensation in upper and lower extremities. Psychiatric: Oriented X3, intact recent and remote memory, judgment and insight, blunted mood and affect. DIAGNOSTICS CMP 12/24/23: Potassium, S 3.6 - 5.2 mmol/L 4.2 4.2 4.0 4.3 3.5 Low 4.4 4.3 Sodium, S 135 - 145 mmol/L 141 137 137 139 141 138 140 Chloride, S 98 - 107 mmol/L 102 101 102 104 106 103 104 Bicarbonate, S 22 - 29 mmol/L 26 27 26 23 24 26 24 Anion Gap 7 - 15 13 9 9 12 11 9 12 BUN (Blood Urea Nitrogen), S 8 - 24 mg/dL 6 Low 12 16 16 11 14 12 Creatinine 0.74 - 1.35 mg/dL 0.61 Low 0.85 0.87 0.92 0.87 0.94 1.07 Estimated GFR (eGFR) >=60 mL/min/BSA >90 >90 CM >90 CM >90 CM >90 CM >90 CM Comment: Estimated GFR calculated using the 2020 CKD_EPI creatinine equation. Calcium, Total, S 8.6 - 10.0 mg/dL 9.1 9.2 9.5 9.5 8.4 Low 9.2 9.1 Glucose, S 70 - 140 mg/dL 89 129 115 102 108 101 96 Protein, Total, S 6.3 - 7.9 g/dL 5.5 Low 6.2 Low 6.6 6.3 5.7 Low 6.2 Low 6.0 Low Albumin, S 3.5 - 5.0 g/dL 3.7 4.1 4.8 4.4 3.8 4.2 4.5 Aspartate Aminotransferase (AST), S 8 - 48 U/L 72 High 111 High 34 41 36 32 28 Alkaline Phosphatase, S 40 - 129 U/L 573 High 285 High 108 106 132 High 101 109 Alanine Aminotransferase (ALT), S 7 - 55 U/L 169 High 259 High 52 70 High 41 44 44 Bilirubin, Total, S 0.0 - 1.2 mg/dL 0.9 0.7 0.6 R 0.6 R 0.4 R 0.4 R 0.3 R CBC 12/24/23: Hemoglobin 13.2 - 16.6 g/dL 14.1 14.4 15.3 14.1 13.0 Low 14.5 13.3 Hematocrit 38.3 - 48.6 % 43.7 43.0 45.1 41.8 38.7 44.5 40.4 Erythrocytes 4.35 - 5.65 x10(12)/L 4.74 4.83 4.87 4.48 4.35 5.09 4.56 MCV 78.2 - 97.9 fL 92.2 89.0 92.6 93.3 89.0 87.4 88.6 RBC Distrib Width 11.8 - 14.5 % 17.2 High 13.1 14.4 17.9 High 18.4 High 14.9 High 16.0 High Platelet Count 135 - 317 x10(9)/L 103 Low 95 Low CM 110 Low CM 114 Low CM 88 Low 163 184 Comment: Rechecked Leukocytes 3.4 - 9.6 x10(9)/L 9.8 High 4.5 7.9 8.6 2.8 Low 5.1 3.3 Low Neutrophils 1.56 - 6.45 x10(9)/L 7.44 High 3.42 6.84 High 6.66 High 1.39 Low 3.17 1.77 Lymphocytes 0.95 - 3.07 x10(9)/L 1.07 0.41 Low 0.47 Low 0.63 Low 0.57 Low 0.81 Low 0.80 Low Monocytes 0.26 - 0.81 x10(9)/L 1.14 High 0.56 0.58 1.33 High 0.70 0.80 0.59 Eosinophils 0.03 - 0.48 x10(9)/L 0.13 0.12 <0.03 <0.03 0.12 0.25 0.09 Basophils 0.01 - 0.08 x10(9)/L 0.05 <0.03 <0.03 <0.03 <0.[address] 12/23/23: Overall marked response of the FDG avid hepatic and eduar metastatic lesions. No new metastatic foci. Interval decrease in the number of metastatic pulmonary nodules. However, there is indeterminant mild increased FDG activity in a few residual pulmonary metastatic foci. ASSESSMENT / PLAN Luis Tabares is a 43-year-old man from [place], [place] with metastatic rectal cancer who is followed in the outpatient Palliative Care Clinic for non-pain symptoms, pain, and psychosocial support. RECOMMENDATIONS Cancer-Associated Pain and Chemotherapy-Induced Neuropathy: Cancer pain is mostly well-controlled on the methadone with no requirement for additional PRNs. He plans to follow-up for injections if hisback pain does not improve. With regards to the neuropathy, discussed holding off on the pregabalingiven the other medication changes at this time and how overwhelming things can be; however, encouraged him to let our team know if he is ready to trial, and we can discuss an uptitration plan that works with the amount of pills he has remaining. - Continue methadone 2.5mg PO bid - Has hydromorphone 4mg PO available for PRN although not utilizing, no refill required at this time - Hold off on pregabalin right now with other medication changes; he will notify us if wanting to start. To uptitrate with his current remaining 25mg capsules, can uptitrate as follows: - 25mg PO bid x3 days - 50mg (two 25mg tablets) PO bid x4 days - 75mg (three 25mg tablets) PO bid x5 days - 100mg (one 100mg tablet) PO bid thereafter Opioid Summary Opioid Need: This patient has a condition that necessitates treatment with an opioid for longer than 7 days. Additionally, a non-opioid alternative was not appropriate or inadequate to manage patient???s pain. Diagnosis related to controlled substance prescribing: rectal cancer [place] GRAIN BROKER Review: We have reviewed the patient's record in the [place] prescription monitoring program 12/24/2023. Opioid Toxicity Review: We have reviewed the risks of opioid therapy and completed an assessment oftoxicities. Opioid Aberrant Use Concerns: None Recommended Opioid Regimen as of 12/24/2023.: as above Current Oral Morphine Equivalents (OME/MME): Methadone + 0 additional OMEs from hydromorphone PRNs Methadone EKG monitoring: Last QTc 456ms on 10/28/23, Next EKG due: 04/28/24 Urine drug screen not obtained today. Last obtained: No results found. However, due to the size of the patient record, not all encounters were searched. Please check Results Review for a complete setof results. Opioid Risk Score: Last Opioid Risk Tool charting Flowsheet Row Comprehensive Visit from 09/26/2023 in Department of Palliative Care in [place], [place] ORT Total Score (max 26) 1 2. Discouraged Mood/Seasonal Affective Disorder: Spent time processing life challenges and emotions. Also discussed that the yearly emotional changes at this time of the year is consistent with the lack of sunlight hours and that there is good evidence that light therapy can provide benefit for that portion of emotional changes. Recommended obtaining a light therapy lamp and trialing this. Also offered additional SW support if needed. Thank you for the opportunity to see this patient. Patient has our contact information and understands to call with new/worsening symptoms or concerns. We will work alongside the primary outpatient team to address these issues. Palliative care outpatient clinic will continue to follow along. Follow up visit: provider ~6 weeks via video, 3 months in person; both orders placed Total time spent was 55 minutes Catrachita Padilla M.D., M.S. SEALER documented in this encounter Plan of Treatment Upcoming Encounters Date Type Department Care Team (Latest Contact Info) Description 03/23/2024 7:30 AM CDT Clinical Communication Virtual Review in [address] [address] 03/24/2024 9:20 AM CDT Lab Department of Infusion Therapy in [address] [phone] Ned Alegria M.D. [address] [place] [phone] 03/24/2024 11:00 AM CDT Appointment Department of Radiology, [facility], in [address] [phone] Ned Alegria M.D. [address] [place] [phone] 03/24/2024 3:30 PM CDT Office Visit Department of Oncology in [address] [phone] Ned Alegria M.D. [address] [place] [phone] Scheduled Referrals Name Type Priority Associated Diagnoses Order Schedule Palliative Care office visit (clinic) Outpatient Referral Routine Expected: 01/22/2024 (Approximate), Expires: 03/23/2025 Palliative Care office visit (clinic) Outpatient Referral Routine Expected: 03/23/2024 (Approximate), Expires: 03/23/2025 documented as of this encounter Goals Goal Patient Goal Type Associated Problems Recent Progress Patient-Stated? Author Your pain? Symptom Management 9(11/20/2022 2:41 PM BAG SEALER) No Phyllis-Girma Bush, RRancho., O.C.N. Note: 05/24/2021: Pain algorithm completed. [facility] [...] Malignant Neoplasm Of Lung Laterality Unknown (HCC) Pain Cancer Associated Palliative Care Pain Neuropathic documented in this encounter Additional Health Concerns Assessment Noted Time PHQ-9 Depression Total Score: 7 05/26/20 18 10:22 PM CDT documented as of this encounter Care Teams Department Head [employer] Or [employer] Relationship Specialty Start Date End Date Elsewhere, Pcp PCP - General Internal Medicine 10/14/22 documented as of this encounter
--- OUTSIDE RECORDS SUMMARY | 2023-12-31 10:41 | XMS_ITS | Encounter Summary ---
Author Name Unknown Organization [facility] Address [address] [place] [address] Care Team Providers Care Sod Farmer Name Role Phone Elsewhere, Pcp Primary Care [...] to Thigh FDG Noelle Reyes P.A.-C., P.A. 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 [address] [place] [phone] [facility] Referral ID Status Reason Start Date Expiration Date Visits Re quested Visits Authorized [id number] Closed 10/27/2023 10/26/2024 1 1 Encounter Details Date Type Department Care Team (Latest Contact Info) Description 12/24/2023 8:57 AM APPLICATION DEVELOPMENT INTERN - 12/24/2023 11:59 PM APPLICATION DEVELOPMENT INTERN Hospital Encounter Department of Radiology, [facility], in [place], [place] [address] [place] [address] Noelle Reyes P.A.-C., P.A. [address] [place] [address] Malignant Neoplasm Of Rectum (HCC); Secondary Malignant [...] week 02/03/2023 How often do you attend [facility] or confucianism services? Never 02/03/2023 Do you belong to any clubs o r organizations such as synagogue groups, unions, fraternal or athletic groups, or [...] 0 04/25/2019 [facility] - Occupational [...] degree (e.g., MA, MS, Ana Lilia, MEd, INTERNATIONAL OPERATIONS MANAGER, GORDO) 02/15/2022 Sex and Gender Information [...] Take 250 mg by mouth daily. 0 azithromycin (ZITHROMAX) 500 mg tablet 0 12/18/2023 benzonatate (TESSALON PERLES) 100 mg capsule 100 mg every 4 (four) hours as needed. 0 12/05/2022 cholecalciferol (VITAMIN D3) 5,000 Unit capsule Take 5,000 Units by mouth daily. 0 clobetasoL (CLODAN) 0.05 % shampoo Lather onto scalp, leave on 5 minutes, and rinse. Use daily Fri-. 118 mL 3 10/28/2023 cyanocobalamin (VITAMIN B12) 1,000 mcg tablet Take 1,000 mcg by mouth daily. 0 dexAMETHasone (DECADRON) 0.5 mg tablet Take 4 mg by mouth. 0 09/29/2023 dexAMETHasone (DECADRON) 4 mg tablet Take 1 tablet (4 mg total) by mouth daily. Take in a.m. with food 30 tablet 3 09/26/2023 diphenoxylate-atropine (LOMOTIL) 2.5-0.025 mg per tablet Take 1 tablet by mouth 3 (three) times a day with meals. 0 12/16/2023 docosahexaenoic acid/epa (FISH OIL ORAL) Take 2 tablets by mouth daily. 0 doxycycline (DORYX) 75 mg EC tablet Take 100 mg by mouth. 0 10/14/2023 doxycycline monohydrate (MONODOX) 100 mg capsule Take 1 capsule (100 mg total) by mouth 2 (two) times a day before breakfast and dinner. 60 capsule 3 09/26/2023 DULoxetine (CYMBALTA) [address] capsule Take 1 capsule by mouth daily. 0 11/27/2023 erythromycin (ROMYCIN) 5 mg/gram (0.5 %) ophthalmic ointment APPLY 1 STRIP TO RIGHT EYE FOUR TIMES DAILY. 0 01/08/2023 fluticasone propionate (FLONASE) 50 mcg/actuation nasal spray INHALE 2 SPRAYS TO BOTH NOSTRILS ONCE DAILY 0 12/10/2022 granisetron (KYTRIL) 1 mg tablet Take 1 tablet (1 mg total) by mouth every 12 (twelve) hours as needed for nausea or vomiting. 60 tablet 0 12/03/2023 hydrocortisone (CORTAID) 1 % cream Apply 1 Application topically 2 (two) times a day. 30 g 3 09/26/2023 hydrocortisone 2.5 % ointment Apply 1 Application topically 2 (two) times a day. Apply to affected areas of the face and groin twice daily Fri-. 30 g 3 10/28/2023 HYDROmorphone (DILAUDID) 4 mg tabletIndications:Campaign Marketing Manager alvino Pain/Nonacute Pain Take 1-1.5 tablets (4-6 mg total) by mouth every 4 (four) hours as needed for pain Indication: Chronic Pain/Nonacute Pain. 60 tablet 0 09/26/2023 HYDROmorphone (Dilaudid) 4 mg tablet Take 4 mg by mouth. 0 09/30/2023 ibuprofen (ADVIL,MOTRIN) 100 mg tablet Take 600 mg by mouth as needed. 0 09/26/2023 ibuprofen (ADVIL,MOTRIN) 200 mg tablet Take 4 tablets (800 mg total) by mouth every 6 (six) hours as needed for pain. 0 08/24/2018 LACTOBACILLUS ACIDOPHILUS ORAL Take 1 capsule by mouth daily. 0 loperamide (IMODIUM A-D) 2 mg capsule TAKE 1 TABLET ORALLY EVERY 4 HOURS NEEDED FOR LOOSE STOOL 0 12/16/2023 melatonin 1 mg tablet,chewable Chew 10 mg daily. 0 09/26/2023 methadone (DOLOPHINE) 5 mg tabletIndications:Campaign Marketing Manager alvino Pain/Nonacute Pain Take 0.5 tablets (2.5 mg total) by mouth 2 (two) times a day Indication: Chronic Pain/Nonacute Pain. 30 tablet 0 12/03/2023 methadone dilution (DOLOPHINE) 0.5 mg/mL injection Take 5 mg by mouth. 0 09/30/2023 minocycline (DYNACIN) 100 mg tablet Take 100 mg by mouth 2 (two) times a day. 0 10/14/2023 morphine 100 mg/5 mL (20 mg/mL) concentrated solution Take by mouth as needed. 0 12/21/2023 multivitamin tablet Take 1 tablet by mouth daily. 0 nitroglycerin (NITROSTAT) 0.[address] 1 tablet (0.4 mg total) under the tongue every 5 (five) minutes as needed for chest pain. 25 tablet 12 05/28/2018 nitroglycerin (Nitrostat) 0.[address] 0.4 mg under the tongue. 0 09/26/2023 OLANZapine (ZyPREXA) 5 mg tablet TAKE 1 TABLET (5 MG TOTAL) BY MOUTH AT BEDTIME. TAKE DAYS 1-4 AFTER CHEMOTHERAPY 72 tablet 1 10/22/2023 omeprazole (PriLOSEC) [address] capsule Take 1 capsule (20 mg total) by mouth every morning before breakfast. 30 capsule 3 09/26/2023 ondansetron ODT (ZOFRAN-ODT) 8 mg disintegrating tablet Dissolve 1 tablet (8 mg total) in the mouth every 8 (eight) hours as needed for nausea. See attached for detailed directions. 20 tablet 3 09/26/2023 pantoprazole (PROTONIX) 40 mg EC tabletIndications:Rosie gnant Neoplasm Of Rectum (HCC) take 1 tablet by mouth every day in the morning 90 tablet 1 12/10/2023 potassium chloride (K-TAB) 20 mEq CR tablet Take 20 mEq by mouth 2 (two) times a day. 0 06/09/2023 pregabalin (LYRICA) 100 mg capsule Take 1 capsule (100 mg total) by mouth 2 (two) times a day. Start after you finish the 25 capsule increase 60 capsule 2 12/03/2023 03/02/2024 prochlorperazine (COMPAZINE) 10 mg tablet Take 1 tablet (10 mg total) by mouth every 8 (eight) hours as needed for nausea. 30 tablet 3 09/26/2023 triamcinolone (KENALOG) 0.1 % cream Apply 1 Application topically 2 (two) times a day as needed (Rash). Apply to affected areas of the body twice daily Fri-Th. 240 g 3 10/28/2023 TURMERIC ORAL Take 1 tablet by mouth every morning. 0 documented as of this encounter Plan of Treatment Upcoming Encounters Date Type Department Care Team (Latest Contact Info) Description 03/23/2024 7:30 AM CDT Clinical Communication Virtual Review in [address] [address] 03/24/2024 9:20 AM CDT Lab Department of Infusion Therapy in [place], [place] [address] [place] [phone] Ned Alegria M.D. [address] [place] [phone] 03/24/2024 11:00 AM CDT Appointment Department of Radiology, [facility], in [place], [place] [address] [place] [phone] Ned Alegria M.D. [address] [place] [phone] 03/24/2024 3:30 PM CDT Office Visit Department of Oncology in [address] [phone] Ned Alegria M.D. [address] [place] [phone] documented as of this encounter Goals Goal Patient Goal Type Associated Problems Recent Progress Patient-Stated? Author Your pain? Symptom Management 9(11/20/2022 2:41 PM APPLICATION DEVELOPMENT INTERN) Raisa Ferguson-Girma Bush, R.N., O.C.N. 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 No new metastatic foci. Interval decrease in the number of metastatic pulmonary nodules. However, there is indeterminant mild increased FDG activity in a few residual pulmonary metastatic foci. Narrative 12/24/2023 12:34 PM APPLICATION DEVELOPMENT INTERN EXAM: ??PET CT SKULL TO THIGH FDG Serum glucose at time of F-18 FDG injection was 101 mg/dL. Patient followed standard dietary/fasting requirements for this exam. RADIOPHARMACEUTICAL/MEDS: Route: intravenous fludeoxyglucose F 18 injection RESIDENTIAL (FDG F-18),14.8 millicurie TECHNIQUE: ??F-18 FDG PET/CT [...] RADIOPHARMACEUTICAL/MEDS: Route: intravenous fludeoxyglucose F 18 injection RESIDENTIAL (FDG F-18),14.8 millicurie TECHNIQUE: F-18 FDG PET/CT [...] few residualpulmonary metastatic foci. Mere Lomeli P.A.-C. IMG NM PRO CEDURES documented in this encounter Visit [...] Dose Rate Site fludeoxyglucose F 18 injection RESIDENTIAL (FDG F-18) 4.5-16.5 millicurie, intravenous, Once, On Fri12/24/23 at 1000, For 1 dose, Imaging Protocol Orders Given 12/24/2023 9:38 AM APPLICATION DEVELOPMENT INTERN 14.8 millicuries heparin flush 500 Units 500 Units, intra-catheter, During hospitalization, line care, Prior to discharge, Starting on Fri12/24/23 at 0946, For 1 dose, Implanted Vascular Access Device (IVAD) Venous Non-Valved: Following saline flush prior to discharge. Given 12/24/2023 9:42 AM APPLICATION DEVELOPMENT INTERN 500 Units sodium chloride 0.9 % injection 10 mL 10 mL, intravenous, During hospitalization, line care, Prior to discharge, Starting on Fri12/24/23 at 0946, For 1 dose, Implanted Vascular Access Device (IVAD) Venous Non-Valved: Followed by heparin flush prior to discharge. Given 12/24/2023 9:42 AM APPLICATION DEVELOPMENT INTERN 10 mL documented in this encounter Additional Health Concerns Assessment Noted Time PHQ-9 Depression Total Score: 7 05/26/20 18 10:22 PM CDT documented as of this encounter Care Teams Sod Farmer Relationship Specialty Start Date End Date Elsewhere, Pcp PCP - General Internal Medicine 10/14/22 documented as of this encounter
--- OUTSIDE RECORDS SUMMARY | 2023-12-31 10:41 | XMS_ITS | Encounter Summary ---
Author Name Unknown Organization [facility] Address [address] [place] [address] Care Team Providers Care Cyber Security Systems Engineer Name Role Phone Elsewhere, Pcp Primary Care Provider Unavailabl e Reason for Visit * Reason Onset Date Comments Pre-visit Intake 12/23/2023 Encounter Details Date Type Department Care Team (Latest Contact Info) Description 12/23/2023 8:30 AM CHEMIC MANGLER Clinical Communication Virtual Review in [place], [place] [address] [place], [place] [phone] Pre-visit Intake Social History Tobacco Use Types [...] often do you attend chur ch or yazidism services? Never 02/03/2023 Do you belong to [...] degree (e.g., MA, MS, Ana Lilia, MEd, VENEER SANDER, GORDO) 02/15/2022 Sex and Gender Information Value Date Recorded Sex Assigned at Male 04/23/2018 1:23 PM CDT Gender Identity Male 04/23/2018 1:23 PM CDT Sexual Orientation Straight 04/23/2018 1: 23 PM CDT documented as of this encounter Plan of Treatment Upcoming Encounters Date Type Department Care Team (Latest Contact Info) Description 03/23/2024 7:30 AM CDT Clinical Communication Virtual Review in [place], [place] 200 [place], [place] [address] 03/24/2024 9:20 AM CDT Lab Department of Infusion Therapy in [place], [place] [address] [place] [phone] Ned Alegria M.D. [address] [place] [phone] 03/24/2024 11:00 AM CDT Appointment Department of Radiology, [facility], in [place], [place] [address] [place] [phone] Ned Alegria M.D. [address] [place] [address] 03/24/2024 3:30 PM CDT Office Visit Department of Oncology in [place], [place] [address] [place] [phone] Ned Alegria M.D. [address] [place] [phone] documented as of this encounter Goals Goal Patient Goal Type Associated Problems Recent Progress Patient-Stated? Author Your pain? Symptom Management 9(11/20/2022 2:41 PM CHEMIC MANGLER) No Fee-Girma Bush, RCandidoN., O.C.N. Note: 05/24/2021: Pain algorithm completed. ELKVIEW [...] Pain rating over the past 7 days: 7 Recommendations at initial call and response: Mr. [...] documented as of this encounter Care Teams Cyber Security Systems Engineer Relationship Specialty Start Date End Date Elsewhere, Pcp PCP - General Internal Medicine 10/14/22 documented as of this encounter
--- OUTSIDE RECORDS SUMMARY | 2023-12-31 10:41 | XMS_ITS | Encounter Summary ---
Author Name Unknown Organization [facility] Address [address] [place] [address] Care Team Providers Care Environmental Lead Name Role Phone Elsewhere, Pcp Primary Care Provider Unavailabl e Reason for Referral * Outpatient (Routine) - Authorized Specialty Diagnoses / Procedures Referred By Contac t Referred To Contact Oncology Ned Alegria M.D. [address] [place] [phone] [facility] Referral ID Status Reason Start Date Expiration Date V isits Requested Visits Authorized [id number] Authorized 12/24/2023 06/24/2025 1 1 SERVICE UTILITY WORKER * MRI/CAT/PET Scan (Routine) - Authorized Specialty Diagnoses / Procedures Referred By Contac t Referred To Contact Radiology Diagnoses Malignant Neoplasm Of Rectum (HCC) Procedures CT Abdomen Pelvis with IV Contrast Ned Alegria M.D. [address] [place] [phone] [facility] Referral ID Status Reason Start Date Expiration Date V isits Requested Visits Authorized [id number] Authorized 12/24/2023 12/23/2024 1 1 SERVICE UTILITY WORKER * MRI/CAT/PET Scan (Routine) - Authorized Specialty Diagnoses / Procedures Referred By Contac t Referred To Contact Radiology Diagnoses Malignant Neoplasm Of Rectum (HCC) Procedures CT Chest with IV Contrast Ned Alegria M.D. 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 [address] [place] [address] [facility] Referral ID Status Reason Start Date Expiration Date Visits Re quested Visits Authorized [id number] Closed 10/27/2023 10/26/2026 1 1 Encounter Details Date Type Department Care Team (Late st Contact Info) Description 12/24/2023 4:10 PM FOOD SERVICE UTILITY WORKER Office Visit Department of Oncology in [place], [place] [address] [place] [address] Ned Alegria M.D. [address] [place] [phone] Malignant Neoplasm Of Rectum (HCC); Secondary Malignant [...] How often do you attend chur or buddhism services? Never 02/03/2023 Do you belong to [...] PHQ-2 Score 0 04/25/2019 [facility] Occupat ional Health - Occupational Stress [...] degree (e.g., MA, MS, Ana Lilia, MEd, PLUMBING INSPECTOR, GORDO) 02/15/2022 Sex and Gender Information Value Date Recorded Sex Assigned at Male 04/23/2018 1:23 PM CDT Gender Identity Male 04/23/2018 1:23 PM CDT Sexual Orientation Straight 04/23/2018 1: 23 PM CDT documented as of this encounter Last Filed Vital Signs Vital Sign Reading Time Taken Comments Blood Pressure 122/81 12/24/2023 4:08 PM FOOD SERVICE UTILITY WORKER Pulse 133 12/24/2023 4:08 PM FOOD SERVICE UTILITY WORKER Temperature 36.5 ??C (97.7 ??F) 12/24/2023 4 :08 PM FOOD SERVICE UTILITY WORKER Respiratory Rate 16 12/24/2023 4:08 PM FOOD SERVICE UTILITY WORKER Oxygen Saturation 98% 12/24/2023 4:0 8 PM FOOD SERVICE UTILITY WORKER Inhaled Oxygen Concentration - - Weight 78.7 kg (173 lb 8 oz) 12/24/2023 4:08 PM FOOD SERVICE UTILITY WORKER pts states that today's wt is correct Height 179.3 cm (5' 10.59) 12/24/2023 4:08 PM FOOD SERVICE UTILITY WORKER Body Mass Index 24.48 12/24/2023 4:08 PM FOOD SERVICE UTILITY WORKER documented in this encounter Progress Notes * Ned Alegria M.D. - 12/24/2023 4:10 PM CST SUBJECTIVE PRIMARY CARE PHYSICIAN ELSEWHERE, PCP LOCAL ONCOLOGIST No care trampoline team coach to display PRIMARY [place] ONCOLOGIST Giorgio Fishman M.D. CHIEF COMPLAINT / REASON FOR VISIT Luis Tabares is a 43 y.o. male from [facility] with metastatic rectal cancer. HISTORY OF PRESENT ILLNESS Oncology History He was initially diagnosed in April 2018 with locally advanced rectal cancer that was treated with long course radiation (28 fraction, 64.4 Gy) with capecitabine, followed by laparoscopic proctectomy with colo anal anastomosis ([id number]), which was then followed by adjuvant FLOX for 4 months completed 12/31/2018. 09/27/2019 Metastatic recurrence in the right lung s/p multiple wedge excision on 09/27/2019, with metastases identified in the right middle lobe, right lower lobe, and again in the right lower lobe. 04/14/2020 Then this was followed, starting 04/14/2020, by first-line irinotecan plus panitumumab. 5 FU was deleted due to prior coronary vasospasm. This regimen apparently induced a significant response. 07/31/2020 S/p mediastinal lymphadenectomy which confirmed at least 3 involved metastatic nodes. This was thenfollowed by radiation from 08/31/2020 until 09/20/2020. Then this was followed by what appears to be adjuvant irinotecan plus panitumumab until January 2021. 05/16/2021 Repeat metastatic recurrence, now in a right-sided 5th rib, LADARIUS lung, and potentially liver. This was managed with radiation, up to 3600 cGy, to the 5th rib lesion. 07/02/2021 This was then followed by second-line irinotecan plus bevacizumab, starting 07/02/2021 until 01/01/2022, which yielded stable disease in the liver. 02/18/2022 S/p microwave ablation of 2 lesions in the liver. 11/2022 3rd line KIM was started. Yielded stable disease. 06/09/2023 Appears that bevacizumab was added. The patient indicates that oxaliplatin might also have been continued perhaps at a dose reduction. Complicated by low platelets (71,000) 06/30/2023 Transitioned to 5 FU alone. But continued to have thrombocytopenia in the 70,000 range, leading to missed doses. 07/31/2023 Repeat evaluation by [facility] He would significant right upper quadrant pain. EGD in August did not identify a cause MRCP on 09/18/2023 did not identify cause of the increased LFTs or right upper quadrant pain August 2023 Status post celiac plexus block, which evidently did not help with his right upper quadrant pain 09/29/2023 Started irinotecan plus panitumumab, as a reintroduction of his first-line therapy. Frequency every 2 weeks Experienced dramatic improvement in his lower back pain and right upper quadrant pain INTERVAL HISTORY He is received about 5 doses of irinotecan plus panitumumab. He is tolerating it reasonably okay, although it has been complicated by nausea and vomiting. Also starting 12/11/2023 he began to have significant diarrhea for 12 days, which is resolved the last day and a half. However last night he hadnausea and vomiting, although was able to tolerate food today. OBJECTIVE PHYSICAL EXAM ECOG 0 - asymptomatic BP 122/81 (BP Location: Left arm, Patient Position: Sitting, Cuff Size: Regular) Pulse (!) 133 Temp 36.5 ??C (Oral) Resp 16 Ht 179.3 cm Wt 78.7 kg Comment: pts states that today's wt is correct SpO2 98% BMI 24.48 kg/m?? General: Alert and oriented. Appears healthy and in no acute distress. is on phone Gait: Normal LABORATORY DATA Lab data reviewed. Transaminases are improved although alkaline phosphatase is worse CEA pending RADIOLOGICAL DATA Radiology data reviewed. 12/24/2023 PET-CT versus August 2023 PETCT Marked response in his liver and retroperitoneal metastases I see an increase in his right pleural metastasis, where he may have previously received radiation The nuclear radiologist mentioned response in his pulmonary nodules and thoracic lymph nodes 07/30/2023 CT chest abdomen pelvis with IV contrast at [facility] 1. Numerous progressive pulmonary nodules consistent with [...] with Mr. Tabares and his . We are delighted that his pain is improved and that he has had metabolic response after restarting irinotecan plus panitumumab. We will continue with the same therapy. We will have him return with repeat imaging using CT CAP in about 3 months -- all ordered. If he wishes to have PET-CT, I would be fine with that as well. I asked them if they had any other questions and they expressed understanding appreciation and agreement. SERVICE UTILITY WORKER documented in this encounter Plan of Treatment Upcoming Encounters Date Type Department Care Team (Latest Contact Info) Description 03/23/2024 7:30 AM CDT Clinical Communication Virtual Review in [place], [place] [address] [place] [address] 03/24/2024 9:20 AM CDT Lab Department of Infusion Therapy in [place], [place] [address] [place] [phone] Ned Alegria M.D. [address] [place] [phone] 03/24/2024 11:00 AM CDT Appointment Department of Radiology, [facility], in [place], [place] [address] [place] [phone] Ned Alegria M.D. [address] [place] [phone] 03/24/2024 3:30 PM CDT Office Visit Department of Oncology in [place], [place] [address] [place] [phone] Ned Alegria M.D. [address] [place] [phone] Scheduled Orders Name Type Priority Associated Diagnoses Order Schedule CT Chest with IV Contrast Imaging RAD - Routine (most inpatients and all outpatients) Malignant Neoplasm Of Rectum (HCC) Expected: 03/24/2024, Expires: 03/23/2025 CT Abdomen Pelvis with IV Contrast Imaging RAD - Routine (most inpatients and all outpatients) Malignant Neoplasm Of Rectum (HCC) Expected: 03/24/2024, Expires: 03/23/2025 CEA (Carcinoembryonic Antigen) Lab Routine Malignant Neoplasm Of Rectum (HCC) Expected: 03/23/2024, Expires: 12/24/2024 CBC with Differential, Blood Lab Routine Malignant Neoplasm Of Rectum (HCC) Expected: 03/23/2024, Expires: 12/24/2024 Comprehensive Metabolic Panel Lab Routine Malignant Neoplasm Of Rectum (HCC) Expected: 03/23/2024, Expires: 03/23/2025 Scheduled Referrals Name Type Priority Associated Diagnoses Orde r Schedule Oncology office visit (clinic) Outpatient Referral Routine Expected: 03/23/2024, Expires: 03/23/2025 documented as of this encounter Goals Goal Patient Goal Type Associated Problems Recent Progress Patient-Stated? Author Your pain? Symptom Management 9(11/20/2022 2:41 PM FOOD SERVICE UTILITY WORKER) No Phyllis-Girma Bush, RRancho., O.C.N. Note: 05/24/2021: Pain algorithm completed. [facility] 05/24/2021: Followup 06/07 via portal per patient [...] as of this encounter Care Teams Environmental Lead Relationship Specialty Start Date End Date Elsewhere, Pcp PCP - General Internal Medicine 10/14/22 documented as of this encounter
--- OUTSIDE RECORDS SUMMARY | 2023-12-31 10:41 | XMS_ITS ---
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 Overview: Added automatically from request for surgery [id number] Secondary Malignant Neoplasm Of Lung Laterality Unknown 03/30/2020 Pulmonary Nodule Computed Tomography Indetermina te 09/27/2019 Nodules Pulmonary Multiple 09/10/2019 Takedown Ileostomy Status Post (Reversal) 2018 Ileostomy Status 12/04/2018 Overview: Added automatically from request for surgery [id number] Thrombocytopenia Drug Induced 12/02/2018 Follow Up Examination [...] Colonoscopy 03/2018 rectal cancer, further evaluation at [facility] Current Oncology Plans Panitumumab / Irinotecan* [...] On Elapsed Days Session Dose Total Dose [id number] 06/13/2021 2 1,200 cGy 3,600 cGy [id number] Celiac 09/20/2020 20 350 cGy 5,250 cGy [id number] Med 09/20/2020 20 350 cGy 5,250 cGy [id number] 07/01/2018 41 230 cGy 6,440 cGy Lifetime [...]
--- OUTSIDE RECORDS SUMMARY | 2023-12-31 10:41 | XMS_ITS | Encounter Summary ---
Author Name Unknown Organization [facility] Address [address] [place] [address] Care Team Providers Care Adjunct Phlebotomy Instructor Name Role Phone Elsewhere, Pcp Primary Care Provider Unavailabl e Encounter Details Date Type Department Care Team (Late st Contact Info) Description 12/17/2023 Clinical Communication Department of Palliative Care in [place], [place] [address] [place] [address] Neela Siu R.N. [address] [place] [address] Social History Tobacco Use Types Packs/Day Years [...] often do you attend chur ch or advent services? Never 02/03/2023 Do you [...] degree (e.g., MA, MS, Ana Lilia, MEd, BOOTH OPERATOR, GORDO) 02/15/2022 Sex and Gender Information Value Date Recorded Sex Assigned at Male 04/23/2018 1:23 PM CDT Gender Identity Male 04/23/2018 1:23 PM CDT Sexual Orientation Straight 04/23/2018 1: 23 PM CDT documented as of this encounter Miscellaneous Notes * Telephone Encounter - Neela Siu RCandidoN. - 12/17/2023 4:41 PM CLEANER AND TRIMMER I spoke with PA team and [facility] pharmacy today. Granisetron 1 mg tabs were approved for $0 copay. Xiomara Blood from [facility] shared that the pharmacy will have to order in the medication and should be there 2/ or 2/2 at the latest. Luis has been updated with this information and has follow up scheduled for next week. NER AND TRIMMER documented in this encounter Plan of Treatment Upcoming Encounters Date Type Department Care Team (Latest Contact Info) Description 03/23/2024 7:30 AM CDT Clinical Communication Virtual Review in [place], [place] 200 [place] [address] 03/24/2024 9:20 AM CDT Lab Department of Infusion Therapy in [address] [phone] Ned Alegria M.D. [address] [place] [phone] 03/24/2024 11:00 AM CDT Appointment Department of Radiology, [facility], in [address] [address] Ned Alegria M.D. [address] [place] [phone] 03/24/2024 3:30 PM CDT Office Visit Department of Oncology in [address] [address] Ned Alegria M.D. [address] [place] [phone] documented as of this encounter Goals Goal Patient Goal Type Associated Problems Recent Progress Patient-Stated? Author Your pain? Symptom Management 9(11/20/2022 2:41 PM CLEANER AND TRIMMER) Raisa Fergsuon-Girma Bush R.N., O.C.N. Note: 05/24/2021: Pain algorithm [...] documented as of this encounter Care Teams Adjunct Phlebotomy Instructor Relationship Specialty Start Date End Date Elsewhere, Pcp PCP - General Internal Medicine 10/14/22 documented as of this encounter
--- OUTSIDE RECORDS SUMMARY | 2023-12-31 10:41 | XMS_ITS ---
Author Name Unknown Organization [facility] Address [address] [place] [address] Care Team Providers Care Dentist Private Practice Name Role Phone Unavailable Unavailable Unavailable Surgery Details Not on file Complications Check Surgery Details section. Procedure Estimated Blood Loss Check Surgery Details section. Procedure Findings Check Surgery Details section. Procedure Specimens Taken Check Surgery Details section.
--- OUTSIDE RECORDS SUMMARY | 2023-12-31 10:42 | XMS_ITS | Encounter Summary ---
Author Name Unknown Organization [facility] Address [address] [place] [address] Care Team Providers Care Commercial Parts Professional Name Role Phone Elsewhere, Pcp Primary Care [...] week 02/03/2023 How often do you attend [facility] or jehovah's witness services? Never 02/03/2023 Do [...] degree (e.g., MA, MS, Ana Lilia, MEd, OPENSTACK DEVELOPER, GORDO) 02/15/2022 Sex and Gender Information Value Date Recorded Sex Assigned at Male 04/23/2018 1:23 PM CDT Gender Identity Male 04/23/2018 1:23 PM CDT Sexual Orientation Straight 04/23/2018 1: 23 PM CDT documented as of this encounter Plan of Treatment Upcoming Encounters Date Type Department Care Team (Latest Contact Info) Description 03/23/2024 7:30 AM CDT Clinical Communication Virtual Review in [place], [place] [address] [place] [address] 03/24/2024 9:20 AM CDT Lab Department of Infusion Therapy in [place], [place] [address] [place] [phone] Ned Alegria M.D. [address] [place] [phone] 03/24/2024 11:00 AM CDT Appointment Department of Radiology, [facility], in [place], [place] [address] [place] [phone] Ned Alegria M.D. [address] [place] [address] 03/24/2024 3:30 PM CDT Office Visit Department of Oncology in [place], [place] [address] [place] [address] Ned Alegria M.D. [address] [place] [address] documented as of this encounter Goals Goal Patient Goal Type Associated Problems Recent Progress Patient-Stated? Author Your pain? Symptom Management 9(11/20/2022 2:41 PM CASK MAKER) No Phyllis-Girma Bush, RCandidoN., O.C.N. Note: 05/24/2021: Pain algorithm completed. [facility] 05/24/2021: Followup 06/07 via [...] DERMATOLOGY IMAGE EXAM Routine 10/28/2023 12:00 AM CASK MAKER documented in this encounter Results * Entire Body-Dermatology Image Exam (10/28/2023 12:00 AM CASK MAKER) Narrative [facility] - 10/29/2023 8:29 AM CASK MAKER This order has been created and auto-finalized [...] documented as of this encounter Care Teams Commercial Parts Professional Relationship Specialty Start Date End Date Elsewhere, Pcp PCP - General Internal Medicine 10/14/22 documented as of this encounter
--- OUTSIDE RECORDS SUMMARY | 2023-12-31 10:42 | XMS_ITS | Encounter Summary ---
Author Name Unknown Organization [facility] Address [address] [place] [address] Care Team Providers Care Cooling Tower Operator Name Role Phone Elsewhere, Pcp Primary Care Provider Unavailabl e Encounter Details Date Type Department Care Team (Late st Contact Info) Description 12/16/2023 Orders Only [facility] Pharm[facility] - [place] [address] [place] [address] [place] [phone] Dolores Khanna Social History Tobacco Use [...] PHQ-2 Score 0 [facility]/25/2019 [facility] - Occupational Stress Questionnaire Answer Date [...] degree (e.g., MA, MS, Ana Lilia, MEd, CHARCOAL KILN BURNER, GORDO) 02/15/2022 Sex and Gender Information Value Date Recorded Sex Assigned at Male 04/23/2018 1:23 PM CDT Gender Identity Male 04/23/2018 1:23 PM CDT Sexual Orientation Straight 04/23/2018 1: 23 PM CDT documented as of this encounter Plan of Treatment Upcoming Encounters Date Type Department Care Team (Latest Contact Info) Description 03/23/2024 7:30 AM CDT Clinical Communication Virtual Review in [place], [place] 200 [place] [address] 03/24/2024 9:20 AM CDT Lab Department of Infusion Therapy in [place], [place] [address] [place] [phone] Ned Alegria M.D. [address] [place] [phone] 03/24/2024 11:00 AM CDT Appointment Department of Radiology, [facility] in [place], [place] [address] [place] [address] Ned Alegria M.D. [address] [place] [address] 03/24/2024 3:30 PM CDT Office Visit Department of Oncology in [place], [place] [address] [place] [address] Ned Alegria M.D. [address] [place] [address] documented as of this encounter Goals Goal Patient Goal Type Associated Problems Recent Progress Patient-Stated? Author Your pain? Symptom Management 9(11/20/2022 2:41 PM BONDING AGENT) No Phyllis-Girma Bush, RCandidoN., O.C.N. Note: 05/24/2021: Pain algorithm completed. [facility] 05/24/2021: Followup 06/07 via portal per patient [...] documented as of this encounter Care Teams Cooling Tower Operator Relationship Specialty Start Date End Date Elsewhere, Pcp PCP - General Internal Medicine 10/14/22 documented as of this encounter
--- OUTSIDE RECORDS SUMMARY | 2023-12-31 10:42 | XMS_ITS | Encounter Summary ---
Author Name Unknown Organization [facility] Address [address] [place] [address] Care Team Providers Care Electric Motor Repairer Name Role Phone Elsewhere, Pcp Primary Care Provider Unavailabl e Reason for Referral * Outpatient (Routine) - Authorized Specialty Diagnoses / Procedures Referred By Contac t Referred To Contact Dermatology Diagnoses Dakota Noel M.D. [address] [place] [phone] [facility] Referral ID Status Reason Start Date Expiration Date V isits Requested Visits Authorized [id number] Authorized 10/28/2023 10/27/2026 1 1 NG ROOM WORKER Reason for Visit * Outpatient (Routine) - Closed Specialty Diagnoses / Procedures Referred By Contac t Referred To Contact Dermatology Diagnoses Malignant Neoplasm Of Rectum (HCC) Secondary Malignant Neoplasm Liver (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) Giorgio Fishman M.D. [address] [place] [address] [facility] Referral ID Status Reason Start Date Expiration Date V isits Requested Visits Authorized [id number] Closed Specialty Services Required 09/10/2023 09/09/2024 1 1 Encounter Details Date Type Department Care Team (Latest Contact Info) Description 10/28/2023 10:40 AM BONING ROOM WORKER Comprehensive Visit Department of Dermatology in [place], [place] [address] [place] [phone] Dakota Smith M.D. [address] [place] [address] Rash (Primary Dx); Malignant Neoplasm Of Rectum [...] often do you attend [facility] or congregational services? Never 02/03/2023 Do you [...] [facility] of Occupat ional [facility] - Occupational Stress Questionnaire Answer [...] degree (e.g., MA, MS, Ana Lilia, MEd, BIKE TECHNICIAN, GORDO) 02/15/2022 Sex and Gender Information Value Date Recorded Sex Assigned at Male 04/23/2018 1:23 PM CDT Gender Identity Male 04/23/2018 1:23 PM CDT Sexual Orientation Straight 04/23/2018 1: 23 PM CDT documented as of this encounter Consult Notes * Dakota Smith M.D. - 10/28/2023 10:40 AM CST [facility] 16 Correspondence to: Dakota Smith M.D. REFERRAL [...] His oncologist who treats him locally in [place] saw him last week and switched him from doxycycline to minocycline, though he has not switched yet as he was not able to apple picking supervisor the prescription until yesterday. He does feel [...] Mr. Luis Tabares today. Dakota Smith M.D. NG ROOM WORKER documented in this encounter Plan of Treatment Upcoming Encounters Date Type Department Care Team (Latest Contact Info) Description 03/23/2024 7:30 AM CDT Clinical Communication Virtual Review in [address] [address] 03/24/2024 9:20 AM CDT Lab Department of Infusion Therapy in [address] [phone] Ned Alegria M.D. [address] [place] [phone] 03/24/2024 11:00 AM CDT Appointment Department of Radiology, [facility], in [address] [phone] Ned Alegria M.D. [address] [place] [phone] 03/24/2024 3:30 PM CDT Office Visit Department of Oncology in [address] [phone] Ned Alegria M.D. [address] [place] [phone] Scheduled Referrals Name Type Priority Associated Diagnoses Order Schedule Dermatology office visit (clinic) Outpatient Referral Routine Expected: 11/28/2023 (Approximate), Expires: 01/26/2025 documented as of this encounter Goals Goal Patient Goal Type Associated Problems Recent Progress Patient-Stated? Author Your pain? Symptom Management 9(11/20/2022 2:41 PM BONING ROOM WORKER) No Phyllis-Girma Bush R.N., O.C.N. Note: 05/24/2021: Pain algorithm completed. [facility] 05/24/2021: Followup 06/07 [...] documented as of this encounter Care Teams Electric Motor Repairer Relationship Specialty Start Date End Date Elsewhere, Pcp PCP - General Internal Medicine 10/14/22 documented as of this encounter
--- OUTSIDE RECORDS SUMMARY | 2023-12-31 10:42 | XMS_ITS | Encounter Summary ---
Author Name Unknown Organization [facility] Address [address] [place] [address] Care Team Providers Care Power Shovel Mechanic Name Role Phone Elsewhere, Pcp Primary Care Provider Unavailabl e Encounter Details Date Type Department Care Team (Late st Contact Info) Description 12/17/2023 Orders Only Pharmacy Prior Auth [facility] [phone] Xiomara Blood Social History Tobacco Use Types [...] How often do you attend [facility] or scientologist services? Never 02/03/2023 Do you [...] degree (e.g., MA, MS, Ana Lilia, MEd, BILINGUAL STUDENT TUTOR, GORDO) 02/15/2022 Sex and Gender Information Value Date Recorded Sex Assigned at Male 04/23/2018 1:23 PM CDT Gender Identity Male 04/23/2018 1:23 PM CDT Sexual Orientation Straight 04/23/2018 1: 23 PM CDT documented as of this encounter Plan of Treatment Upcoming Encounters Date Type Department Care Team (Latest Contact Info) Description 03/23/2024 7:30 AM CDT Clinical Communication Virtual Review in [place], [place] 200 [place] [address] 03/24/2024 9:20 AM CDT Lab Department of Infusion Therapy in [address] [phone] Ned Alegria M.D. [address] [place] [phone] 03/24/2024 11:00 AM CDT Appointment Department of Radiology, [facility], in [place], [place] [address] [place] [phone] Ned Alegria M.D. [address] [place] [address] 03/24/2024 3:30 PM CDT Office Visit Department of Oncology in [place], [place] [address] [place] [address] Ned Alegria M.D. [address] [place] [address] documented as of this encounter Goals Goal Patient Goal Type Associated Problems Recent Progress Patient-Stated? Author Your pain? Symptom Management 9(11/20/2022 2:41 PM CASING IN LINE SETTER) No Phyllis-Girma Bush R.N., O.C.N. Note: 05/24/2021: [...] documented as of this encounter Care Teams Power Shovel Mechanic Relationship Specialty Start Date End Date Elsewhere, Pcp PCP - General Internal Medicine 10/14/22 documented as of this encounter
--- OUTSIDE RECORDS SUMMARY | 2023-12-31 10:42 | XMS_ITS | Encounter Summary ---
Author Name Unknown Organization [facility] Address [address] [place] [address] Care Team Providers Care Lithography Contact Worker Name Role Phone Elsewhere, Pcp Primary Care Provider Unavailabl e Reason for Visit * Appointment Request (Routine) - Closed Specialty Diagnoses / Procedures Referred By Contac t Referred To Contact Pain Medicine Referral ID Status Reason Start Date Expiration Date Visits Re quested Visits Authorized [id number] Closed 11/03/2023 11/02/2024 1 1 Encounter Details Date Type Department Care Team (Late st Contact Info) Description 12/01/2023 8:30 AM ROBOTICS ENGINEER Office Visit Division of Pain Medicine in [place], [place] [address] [place] [phone] Sean Shen D.O. [address] [place] [phone] Pain Cancer Associated (Primary Dx) Social History [...] Answer Date Recorded PHQ-2 Score 0 04/25/2019 [facility] [place] of Occupat ional Health - Occupational [...] degree (e.g., MA, MS, Ana Lilia, MEd, WIG COMBER, GORDO) 02/15/2022 Sex and Gender Information Value [...] spent a total of 20 minutes in gpc-ukas-yf-face time performing a review of the recordand/or discussion with the patient/caregiver as described above. Total time spent with patient: 20 minutes. Sean Shen DO TICS ENGINEER documented in this encounter Plan of Treatment Upcoming Encounters Date Type Department Care Team (Latest Contact Info) Description 03/23/2024 7:30 AM CDT Clinical Communication Virtual Review in [address] [address] 03/24/2024 9:20 AM CDT Lab Department of Infusion Therapy in [address] [address] Ned Alegria M.D. [address] [place] [phone] 03/24/2024 11:00 AM CDT Appointment Department of Radiology, [facility], in [address] [phone] Ned Alegria M.D. [address] [place] [phone] 03/24/2024 3:30 PM CDT Office Visit Department of Oncology in [address] [phone] Ned Alegria M.D. [address] [place] [phone] documented as of this encounter Goals Goal Patient Goal Type Associated Problems Recent Progress Patient-Stated? Author Your pain? Symptom Management 9(11/20/2022 2:41 PM ROBOTICS ENGINEER) No Fee-Girma Bush R.N., O.C.N. Note: 05/24/2021: [...] documented as of this encounter Care Teams Lithography Contact Worker Relationship Specialty Start Date End Date Elsewhere, Pcp PCP - General Internal Medicine 10/14/22 documented as of this encounter
--- OUTSIDE RECORDS SUMMARY | 2023-12-31 10:42 | XMS_ITS | Encounter Summary ---
Author Name Unknown Organization [facility] Address [address] [place] [address] Care Team Providers Care Community Advocate Name Role Phone Elsewhere, Pcp Primary Care Provider Unavailabl e Reason for Visit * Reason Comments Med Refill pantoprazole Encounter Details Date Type Department Care Team ([facility] st Contact Info) Description 12/10/2023 Refill Department of Oncology in [place], [place] [address] [place] [address] Giorgio Fishman M.D. [address] [place] [phone] Med Refill ( pantoprazole) Social History Tobacco [...] often do you attend chur ch or temple services? Never 02/03/2023 Do you [...] 0 04/25/2019 [facility] of Occupat ional [facility] - Occupational Stress Questionnaire Answer Date Recorded [...] degree (e.g., MA, MS, Ana Lilia, MEd, DRUM HANDLER, GORDO) 02/15/2022 Sex and Gender Information Value Date Recorded Sex Assigned at Male 04/23/2018 1:23 PM CDT Gender Identity Male 04/23/2018 1:23 PM CDT Sexual Orientation Straight 04/23/2018 1: 23 PM CDT documented as of this encounter Plan of Treatment Upcoming Encounters Date Type Department Care Team (Latest Contact Info) Description 03/23/2024 7:30 AM CDT Clinical Communication Virtual Review in [place], [place] [address] [place] [address] 03/24/2024 9:20 AM CDT Lab Department of Infusion Therapy in [place], [place] [address] [place] [phone] Ned Alegria M.D. [address] [place] [address] 03/24/2024 11:00 AM CDT Appointment Department of Radiology, [facility], in [place], [place] [address] [place] [address] Ned Alegria M.D. [address] [place] [phone] 03/24/2024 3:30 PM CDT Office Visit Department of Oncology in [place], [place] [address] [place] [address] Ned Alegria M.D. [address] [place] [phone] documented as of this encounter Goals Goal Patient Goal Type Associated Problems Recent Progress Patient-Stated? Author Your pain? Symptom Management 9(11/20/2022 2:41 PM SEGMENTAL PAVING SUPERVISOR) No Phyllis-Girma Bush, RCandidoN., O.C.N. Note: 05/24/2021: [...] documented as of this encounter Care Teams Community Advocate Relationship Specialty Start Date End Date Elsewhere, Pcp PCP - General Internal Medicine 10/14/22 documented as of this encounter
--- OUTSIDE RECORDS SUMMARY | 2023-12-31 10:42 | XMS_ITS | Encounter Summary ---
Author Name Unknown Organization [facility] Address [address] [place] [address] Care Team Providers Care Household Appliances Salesperson Name Role Phone Elsewhere, Pcp Primary Care Provider Unavailabl e Reason for Visit * Reason Onset Date Comments Pre-visit Intake 10/14/2023 Encounter Details Date Type Department Care Team (Latest Contact Info) Description 10/14/2023 11:30 AM GEODESY TEACHER Clinical Communication Virtual Review in [place], [place] 200 [place], [place] [phone] Pre-visit Intake Social History Tobacco Use Types [...] often do you attend chur ch or religion services? Never 02/03/2023 Do you [...] Date Recorded PHQ-2 Score 0 04/25/2019 [facility] [place] of Occupat ional Health - Occupational Stress [...] degree (e.g., MA, MS, Ana Lilia, MEd, EAP COUNSELOR, GORDO) 02/15/2022 Sex and Gender Information Value Date Recorded Sex Assigned at Male 04/23/2018 1:23 PM CDT Gender Identity Male 04/23/2018 1:23 PM CDT Sexual Orientation Straight 04/23/2018 1: 23 PM CDT documented as of this encounter Plan of Treatment Upcoming Encounters Date Type Department Care Team (Latest Contact Info) Description 03/23/2024 7:30 AM CDT Clinical Communication Virtual Review in [place], [place] [address] [place], [place] [address] 03/24/2024 9:20 AM CDT Lab Department of Infusion Therapy in [place], [place] [address] [place] [phone] Ned Alegria M.D. [address] [place] [phone] 03/24/2024 11:00 AM CDT Appointment Department of Radiology, [facility], in [place], [place] [address] [place] [address] Ned Alegria M.D. [address] [place] [phone] 03/24/2024 3:30 PM CDT Office Visit Department of Oncology in [place], [place] [address] [place] [phone] Ned Alegria M.D. [address] [place] [phone] documented as of this encounter Goals Goal Patient Goal Type Associated Problems Recent Progress Patient-Stated? Author Your pain? Symptom Management 9(11/20/2022 2:41 PM GEODESY TEACHER) No Fee-Girma Bush, RCandidoN., O.C.N. Note: [...] documented as of this encounter Care Teams Household Appliances Salesperson Relationship Specialty Start Date End Date Elsewhere, Pcp PCP - General Internal Medicine 10/14/22 documented as of this encounter
--- OUTSIDE RECORDS SUMMARY | 2023-12-31 10:42 | XMS_ITS | Encounter Summary ---
Author Name Unknown Organization [facility] Address [address] [place] [address] Care Team Providers Care Civil Engineer'S Aide Name Role Phone Elsewhere, Pcp Primary Care Provider Unavailabl e Reason for Visit * Reason Comments Med Change Request Encounter Details Date Type Department Care Team (Late st Contact Info) Description 10/20/2023 Refill Department of Oncology in [place], [place] [address] [place] [phone] Kristi Dominique M.D. [address] [place] [phone] Med Change Request Social History [...] degree (e.g., MA, MS, Ana Lilia, MEd, FOOT ROENTGENOLOGIST, GORDO) 02/15/2022 Sex and Gender Information Value Date Recorded Sex Assigned at Male 04/23/2018 1:23 PM CDT Gender Identity Male 04/23/2018 1:23 PM CDT Sexual Orientation Straight 04/23/2018 1: 23 PM CDT documented as of this encounter Plan of Treatment Upcoming Encounters Date Type Department Care Team (Latest Contact Info) Description 03/23/2024 7:30 AM CDT Clinical Communication Virtual Review in [place], [place] 200 [place] [address] 03/24/2024 9:20 AM CDT Lab Department of Infusion Therapy in [address] [phone] Ned Alegria M.D. [address] [place] [phone] 03/24/2024 11:00 AM CDT Appointment Department of Radiology, [facility], in [place], [place] [address] [place] [address] Ned Alegria M.D. [address] [place] [phone] 03/24/2024 3:30 PM CDT Office Visit Department of Oncology in [place], [place] [address] [place] [address] Ned Alegria M.D. [address] [place] [phone] documented as of this encounter Goals Goal Patient Goal Type Associated Problems Recent Progress Patient-Stated? Author Your pain? Symptom Management 9(11/20/2022 2:41 PM HAND COOPER HELPER) No Phyllis-Girma Bush RCandidoN., O.C.N. Note: 05/24/2021: Pain algorithm [...] documented as of this encounter Care Teams Civil Engineer'S Aide Relationship Specialty Start Date End Date Elsewhere, Pcp PCP - General Internal Medicine 10/14/22 documented as of this encounter
--- OUTSIDE RECORDS SUMMARY | 2023-12-31 10:42 | XMS_ITS | Encounter Summary ---
Author Name Unknown Organization [facility] Address [address] [place] [address] Care Team Providers Care Medical Assistant Ob Gyn Name Role Phone Elsewhere, Pcp Primary Care Provider Unavailabl e Encounter Details Date Type Department Care Team (Latest Contact Info) Description 11/26/2023 3:45 PM RETAIL MERCHANDISER Clinical Communication Virtual Review in [place], [place] 200 [place], [place] [phone] Social History Tobacco Use Types Packs/Day Years [...] How often do you attend [facility] or gnosticist services? Never 02/03/2023 Do you [...] [facility]at ional [facility] - [...] degree (e.g., MA, MS, Ana Lilia, MEd, ETIOLOGIST, GORDO) 02/15/2022 Sex and Gender Information Value Date Recorded Sex Assigned at Male 04/23/2018 1:23 PM CDT Gender Identity Male 04/23/2018 1:23 PM CDT Sexual Orientation Straight 04/23/2018 1: 23 PM CDT documented as of this encounter Plan of Treatment Upcoming Encounters Date Type Department Care Team (Latest Contact Info) Description 03/23/2024 7:30 AM CDT Clinical Communication Virtual Review in [place], [place] 200 [place] [address] 03/24/2024 9:20 AM CDT Lab Department of Infusion Therapy in [address] [phone] Ned Alegria M.D. [address] [place] [phone] 03/24/2024 11:00 AM CDT Appointment Department of Radiology, [facility], in [place], [place] [address] [place] [phone] Ned Alegria M.D. [address] [place] [address] 03/24/2024 3:30 PM CDT Office Visit Department of Oncology in [place], [place] [address] [place] [address] Ned Alegria M.D. [address] [place] [phone] documented as of this encounter Goals Goal Patient Goal Type Associated Problems Recent Progress Patient-Stated? Author Your pain? Symptom Management 9(11/20/2022 2:41 PM RETAIL MERCHANDISER) No Phyllis-Girma Bush R.N., O.C.N. Note: 05/24/2021: Pain algorithm completed. [facility] 05/24/2021: Followup 06/07 via portal per patient [...] documented as of this encounter Care Teams Medical Assistant Ob Gyn Relationship Specialty Start Date End Date Elsewhere, Pcp PCP - General Internal Medicine 10/14/22 documented as of this encounter
--- OUTSIDE RECORDS SUMMARY | 2023-12-31 10:42 | XMS_ITS | Encounter Summary ---
Author Name Unknown Organization [facility] Address [address] [place] [address] Care Team Providers Care Lead Performance Support Analyst Name Role Phone Elsewhere, Pcp Primary Care Provider Unavailabl e Reason for Referral * Outpatient (Routine) - Closed Specialty Diagnoses / Procedures Referred By Halima owen Referred To Contact Palliative Medicine Diagnoses . Kari Austin APRN, C.N.PCandido, D.N.P. [address] [place] [address] [facility] Referral ID Status Reason Start Date Expiration Date Visits Re quested Visits Authorized [id number] Closed 10/20/2023 10/19/2026 1 1 Scheduling Instructions Louisa Pierce. Please coordinate with in person visits. FIRER * Outpatient (Routine) - Closed Specialty Diagnoses / Procedures Referred By Halima owen Referred To Contact Social Work Diagnoses Counseling Life Circumstance Problem Kari Austin APRN C.N.PCandido, D.N.P. [address] [place] [address] [facility] Referral ID Status Reason Start Date Expiration Date Visits Re quested Visits Authorized [id number] Closed 10/20/2023 10/19/2024 1 1 Scheduling Instructions Video FIRER Reason for Visit * Outpatient (Routine) - Closed Specialty Diagnoses / Procedures Referred By Contlucas t Referred To Contact Palliative Medicine Diagnoses na Louisa Padilla P.A.-C. [address] [place] [phone] [facility] Referral ID Status Reason Start Date Expiration Date Visits Re quested Visits Authorized [id number] Closed 09/26/2023 09/25/2026 1 1 Encounter Details Date Type Department Care Team (Late st Contact Info) Description 10/20/2023 8:30 AM POT FIRER Telemedicine Department of Palliative Care in [place], [place] [address] [place] [phone] Louisa Padilla P.A.-C. [address] [place] [phone] Kari Austin APRN, C.N.P., D.N.P. [address] [place] [phone] Pain Cancer Associated (Primary Dx); Malignant Neoplasm [...] often do you attend chur ch or anglican services? Never 02/03/2023 Do you belong to [...] degree (e.g., MA, MS, Ana Lilia, MEd, AUTOMOTIVE SERVICE CASHIER, GORDO) 02/15/2022 Sex and Gender Information Value [...] controlled substance prescribing: Cancer related pain [place] INFORMATION SECURITY ANALYST Review: We have reviewed the patient's record in the [place] prescription monitoring program 10/20/2023. Opioid Toxicity Review: [...] 09/26/2023 in Department of Palliative Care in [place], [place] ORT Total Score (max 26) 1 CONSTIPATION: Continue bowel regimen Goal is for soft, moderately sized bowel movement every 1-2 days NAUSEA / VOMITING: Olanzapine as advised by oncology with chemo regimen Zofran and compazine as needed Repeat EKG next week COPING: Referral to palliative care social welfare clerk to discuss communicating cancer diagnosis with his son / resources Follow up visit: 6 weeks in person, sooner if needs arise. I personally spent a total of 30 minutes. Consult conducted via real-time audio/video technology by Kari Austin APRN, C.N.P., BeckyNCandidoPCandido in [facility] to the patient in [place] , privacy ensured Kari Austin APRN, C.N.P., Iris.N.PCandido FIRER documented in this encounter Plan of Treatment Upcoming Encounters Date Type Department Care Team (Latest Contact Info) Description 03/23/2024 7:30 AM CDT Clinical Communication Virtual Review in [place], [place] 200 [place] [address] 03/24/2024 9:20 AM CDT Lab Department of Infusion Therapy in [address] [phone] Ned Alegria M.D. [address] [place] [phone] 03/24/2024 11:00 AM CDT Appointment Department of Radiology, [facility], in [address] [phone] Ned Alegria M.D. [address] [place] [phone] 03/24/2024 3:30 PM CDT Office Visit Department of Oncology in [address] [phone] Ned Alegria M.D. [address] [place] [phone] Scheduled Referrals Name Type Priority Associated Diagnoses Orde r Schedule Social Work - General consult (clinic) Outpatient Referral Routine Counseling Life Circumstance Problem Expected: 10/20/2023 (Approximate), Expires: 01/18/2025 Palliative Care office visit (clinic) Outpatient Referral Routine Expected: 12/01/2023, Expires: 01/18/2025 documented as of this encounter Goals Goal Patient Goal Type Associated Problems Recent Progress Patient-Stated? Author Your pain? Symptom Management 9(11/20/2022 2:41 PM POT FIRER) No Phyllis-Girma Bush RCandidoN., O.C.N. Note: 05/24/2021: [...] documented as of this encounter Care Teams Lead Performance Support Analyst Relationship Specialty Start Date End Date Elsewhere, Pcp PCP - General Internal Medicine 10/14/22 documented as of this encounter
--- OUTSIDE RECORDS SUMMARY | 2023-12-31 10:42 | XMS_ITS | Encounter Summary ---
Author Name Unknown Organization [facility] Address [address] [place] [address] Care Team Providers Care Quarry Supervisor Open Pit Name Role Phone Elsewhere, Pcp Primary Care Provider Unavailabl e Reason for Referral * Outpatient (Routine) - Closed Specialty Diagnoses / Procedures Referred By Halima t Referred To Contact Palliative Medicine Diagnoses n/a Catrachita Padilla M.D., M.S. [address] [place] [phone] [facility] Referral ID Status Reason Start Date Expiration Date Visits Re quested Visits Authorized [id number] Closed 12/04/2023 12/03/2026 1 1 Scheduling Instructions In person for prescribing, needs to coordinate with upcoming onc visits. Urgent ok if needed. UROLOGY * Medication Prior Authorization - Authorized Specialty Diagnoses / Procedures Referred By Halima t Referred To Contact Catrachita Padilla M.D., M.S. [address] [place] [address] Referral ID Status Reason Start Date Expiration Date V isits Requested Visits Authorized [id number] Authorized 12/16/2023 12/16/2024 1 1 UROLOGY Reason for Visit * Outpatient (Routine) - Closed Specialty Diagnoses / Procedures Referred By Contac t Referred To Contact Palliative Medicine Diagnoses . Kari Austin APRN, C.N.P., D.N.P. [address] [place] [phone] [facility] Referral ID Status Reason Start Date Expiration Date Visits Re quested Visits Authorized [id number] Closed 10/20/2023 10/19/2026 1 1 Encounter Details Date Type Department Care Team (Late st Contact Info) Description 12/03/2023 1:15 PM RN UROLOGY Telemedicine Department of Palliative Care in [place], [place] [address] [place] [phone] Catrachita Padilla M.D., M.S. [address] [place] [phone] Malignant Neoplasm Of Rectum (HCC) (Primary Dx); [...] 02/03/2023 How often do you attend [facility] or moravian services? Never 02/03/2023 Do you belong to [...] degree (e.g., MA, MS, Ana Lilia, MEd, AOC PLANS INTELLIGENCE OFFICER CHIEF, GORDO) 02/15/2022 Sex and Gender Information Value Date Recorded Sex Assigned at Male 04/23/2018 1:23 PM CDT Gender Identity Male 04/23/2018 1:23 PM CDT Sexual Orientation Straight 04/23/2018 1: 23 PM CDT documented as of this encounter Progress Notes * Catrachita Padilla M.D., M.S. - 12/03/2023 1:15 PM CST SUBJECTIVE CHIEF COMPLAINT/REASON FOR VISIT Luis Tabares is a 43-year-old man from [place], [place] with metastatic rectal cancer who is [...] but irritating his stomach) will be helpful. [place] Scores Who completed this form?: Patient No [...] Luis Tabares is a 43-year-old man from [place], [place] with metastatic rectal cancer who is [...] to controlled substance prescribing: rectal cancer [place] POLYSOMNOGRAPHY TECH Review: We have reviewed the patient's record [...] 09/26/2023 in Department of Palliative Care in [place], [place] ORT Total Score (max 26) 1 [...] technology by Catrachita Padilla M.D., M.S. in [facility] to the patient. Catrachita Padilla M.D., M.S. UROLOGY documented in this encounter Plan of Treatment Upcoming Encounters Date Type Department Care Team (Latest Contact Info) Description 03/23/2024 7:30 AM CDT Clinical Communication Virtual Review in [place], [place] 200 [place] [address] 03/24/2024 9:20 AM CDT Lab Department of Infusion Therapy in [place], [place] [address] [place] [phone] Ned Alegria M.D. [address] [place] [phone] 03/24/2024 11:00 AM CDT Appointment Department of Radiology, [facility], in [address] [phone] Ned Alegria M.D. [address] [place] [phone] 03/24/2024 3:30 PM CDT Office Visit Department of Oncology in [place], [place] [address] [place] [phone] Ned Alegria M.D. [address] [place] [phone] Scheduled Referrals Name Type Priority Associated Diagnoses Order Schedule Palliative Care office visit (clinic) Outpatient Referral Routine Expected: 12/24/2023, Expires: 03/04/2025 documented as of this encounter Goals Goal Patient Goal Type Associated Problems Recent Progress Patient-Stated? Author Your pain? Symptom Management 9(11/20/2022 2:41 PM RN UROLOGY) No Fee-Girma Bush, R.N., O.C.N. Note: 05/24/2021: [...] documented as of this encounter Care Teams Quarry Supervisor Open Pit Relationship Specialty Start Date End Date Elsewhere, Pcp PCP - General Internal Medicine 10/14/22 documented as of this encounter
--- OUTSIDE RECORDS SUMMARY | 2023-12-31 10:42 | XMS_ITS | Encounter Summary ---
Author Name Unknown Organization [facility] Address [address] [place] [address] Care Team Providers Care Day Care Home Provider Name Role Phone Elsewhere, Pcp Primary Care Provider Unavailabl e Reason for Visit * Outpatient (Routine) - Closed Specialty Diagnoses / Procedures Referred By Halima t Referred To Contact Social Work Diagnoses Counseling Life Circumstance Problem GeovannaKari Neal APRN C.N.P., D.N.P. [address] [place] [phone] [facility] Referral ID Status Reason Start Date Expiration Date Visits Re quested Visits Authorized [id number] Closed 10/20/2023 10/19/2024 1 1 Encounter Details Date Type Department Care Team (Late st Contact Info) Description 10/22/2023 3:00 PM AIRLINE CUSTOMER SERVICE AGENT Telemedicine Department of Palliative Care in [place], [place] [address] [place] [phone] Kari Austin APRN, C.N.P., D.N.P. [address] [place] [phone] Annie Mak L.I.C.S.W., M.S.W. [address] [place] [phone] Palliative Care (Primary Dx); Counseling Life Circumstance [...] Answer Date Recorded PHQ-2 Score 0 04/25/2019 [facility] of Occupat ional Health - Occupational Stress [...] degree (e.g., MA, MS, Ana Lilia, Berna, VP HR DIVERSITY, GORDO) 02/15/2022 Sex and Gender Information Value Date Recorded Sex Assigned at Male 04/23/2018 1:23 PM CDT Gender Identity Male 04/23/2018 1:23 PM CDT Sexual Orientation Straight 04/23/2018 1: 23 PM CDT documented as of this encounter Progress Notes * Annie Mak L.I.C.S.W., M.S.W. - 10/22/2023 3:00 PM CST SUBJECTIVE Chief Complaint: laceworker consulted to provide supportive counseling around grief, loss and adjustment to illness, education and navigation of resources. Diagnosis: #1 Counseling Life Circumstance Problem #2 Palliative Care Service type(s): family Present for the visit: patient and Dolores Patient and Dolores share they have been together for ten years. He shares he is originally from [place], his family is still there. Dolores is from the [facility] and her family remains there. They have [...] help talk to kids about cancer; [employer], Jerman Piece[employer], and the book How to Help Children [...] parent, Annabella's and Jerman Ortiz, and [employer]. Will send them additional resources as well. [...] counseling throughout cancer care journey here at [facility]. Patient was accepting of offer. Encouraged patient [...] Excellent based on continued engagement with this assembly instructions writer during visit. Cooperation: Cooperative Mood: Calm [...] male diagnosed with rectal cancer, lives in [facility] with his and son. Patient and [...] cancer, Reflective Listening, Motivational Interviewing PLAN 1. Elijah will review information sent via portal 2. Social work is available should needs arise, patient was provided with my contact information. Consult conducted via real-time audio technology by Jameson Gant M.S.WCandido in [facility] to the patient in the patient's home. Type of service: Supportive counseling and Resource referrals and connection Start time: 1500 End time: 1545 LUCAS Gant 10/22/2023 INE CUSTOMER SERVICE AGENT documented in this encounter Plan of Treatment Upcoming Encounters Date Type Department Care Team (Latest Contact Info) Description 03/23/2024 7:30 AM CDT Clinical Communication Virtual Review in [address] [address] 03/24/2024 9:20 AM CDT Lab Department of Infusion Therapy in [address] [phone] Ned Alegria M.D. [address] [place] [phone] 03/24/2024 11:00 AM CDT Appointment Department of Radiology, [facility], in [address] [phone] Ned Alegria M.D. [address] [place] [phone] 03/24/2024 3:30 PM CDT Office Visit Department of Oncology in [address] [phone] Ned Alegria M.D. [address] [place] [phone] documented as of this encounter Goals Goal Patient Goal Type Associated Problems Recent Progress Patient-Stated? Author Your pain? Symptom Management 9(11/20/2022 2:41 PM AIRLINE CUSTOMER SERVICE AGENT) No Phyllis-Girma Bush RRancho., O.C.N. Note: 05/24/2021: Pain algorithm completed. STROUD [...] documented as of this encounter Care Teams Day Care Home Provider Relationship Specialty Start Date End Date Elsewhere, Pcp PCP - General Internal Medicine 10/14/22 documented as of this encounter
--- OUTSIDE RECORDS SUMMARY | 2023-12-31 10:42 | XMS_ITS | Encounter Summary ---
Author Name Unknown Organization [facility] Address [address] [place] [address] Care Team Providers Care Material Handling Technician Name Role Phone Elsewhere, Pcp Primary [...] to Thigh FDG Noelle Reyes P.A.-C., P.A. 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 [address] [place] [phone] [facility] Referral ID Status Reason Start Date Expiration Date Visits Re quested Visits Authorized [id number] Closed 10/27/2023 10/26/2026 1 1 TIME PARAMEDIC Encounter Details Date Type Department Care Team (Late st Contact Info) Description 10/27/2023 Orders Only Department of Oncology in [place], [place] [address] [place] [phone] Noelle Reyes P.A.-C., P.A. [address] [place] [phone] Malignant Neoplasm Of Rectum (HCC) (Primary Dx); [...] week 02/03/2023 How often do you attend caro center or nondenominational services? Never 02/03/2023 Do you [...] [facility] of Occupat ional [facility] - Occupational Stress Questionnaire Answer [...] degree (e.g., MA, MS, Ana Lilia, MEd, PRORATE CLERK, GORDO) 02/15/2022 Sex and Gender Information Value Date Recorded Sex Assigned at Male 04/23/2018 1:23 PM CDT Gender Identity Male 04/23/2018 1:23 PM CDT Sexual Orientation Straight 04/23/2018 1: 23 PM CDT documented as of this encounter Plan of Treatment Upcoming Encounters Date Type Department Care Team (Latest Contact Info) Description 03/23/2024 7:30 AM CDT Clinical Communication Virtual Review in [place], [place] [address] [place] [address] 03/24/2024 9:20 AM CDT Lab Department of Infusion Therapy in [place], [place] [address] [place] [phone] Ned Alegria M.D. [address] [place] [phone] 03/24/2024 11:00 AM CDT Appointment Department of Radiology, [facility], in [place], [place] [address] [place] [phone] Ned Alegria M.D. [address] [place] [address] 03/24/2024 3:30 PM CDT Office Visit Department of Oncology in [place], [place] [address] [place] [address] Ned Alegria M.D. [address] [place] [address] Scheduled Referrals Name Type Priority Associated Diagnoses [...] Your pain? Symptom Management 9(11/20/2022 2:41 PM FULL TIME PARAMEDIC) No Fee-Girma Bush, R.N., O.C.N. Note: 05/24/2021: [...] Skull to Thigh FDG (12/24/2023 11:31 AM FULL TIME PARAMEDIC) Anatomical Region Laterality Modality Body, Nuclear Medicine PET R ST LOS, PET ARZ LOS, Nuclear Medicine PET FLA LOS, Nuclear Medicine N/A Positron Emission Tomography (PET), Positron Emission Tomography (PET) Impressions 12/24/2023 12:34 PM FULL TIME PARAMEDIC Overall marked response of the FDG avid hepatic and eduar metastatic lesions. No new metastatic foci. Interval decrease in the number of metastatic pulmonary nodules. However, there is indeterminant mild increased FDG activity in a few residual pulmonary metastatic foci. Narrative 12/24/2023 12:34 PM FULL TIME PARAMEDIC EXAM: ??PET CT SKULL TO THIGH FDG Serum glucose at time of F-18 FDG injection was 101 mg/dL. Patient followed standard dietary/fasting requirements for this exam. RADIOPHARMACEUTICAL/MEDS: Route: intravenous fludeoxyglucose F 18 injection MCFP (FDG F-18),14.8 millicurie TECHNIQUE: ??F-18 FDG PET/CT [...] RADIOPHARMACEUTICAL/MEDS: Route: intravenous fludeoxyglucose F 18 injection MCFP (FDG F-18),14.8 millicurie TECHNIQUE: F-18 FDG PET/CT [...] in a few residualpulmonary metastatic foci. Noelle Reyse P.A.-C., P.A. MATTHIEU NM PRO CEDPHYLLIS * (ABNORMAL) Comprehensive Metabolic Panel (12/24/2023 11:21 AM FULL TIME PARAMEDIC) Potassium, S 4.2 3.6 - 5.2 mmol/L 12/24/2023 1:06 PM FULL TIME PARAMEDIC DTL Sodium, S 141 135 - 145 mmol/L 12/24/2023 1:06 PM FULL TIME PARAMEDIC DTL Chloride, S 102 98 - 107 mmol/L 12/24/2023 1:06 PM FULL TIME PARAMEDIC DTL Bicarbonate, S 26 22 - 29 mmol/L 12/24/2023 1:06 PM FULL TIME PARAMEDIC DTL Anion Gap 13 7 - 15 12/24/2023 1:06 PM FULL TIME PARAMEDIC DTL BUN (Blood Urea Nitrogen), S 6(L) 8 - 24 mg/dL 12/24/2023 1:06 PM FULL TIME PARAMEDIC DTL Creatinine 0.61(L) 0.74 - 1.35 mg/dL 12/24/2023 1:06 PM FULL TIME PARAMEDIC DTL Estimated GFR (eGFR) >90 >=60 mL/min/BS A 12/24/2023 1:06 PM FULL TIME PARAMEDIC DTL Comment: Estimated GFR calculated using the 2020 CKD_EPI creatinine equation. Calcium, Total, S 9.1 8.6 - 10.0 mg/dL 12/24/2023 1:06 PM FULL TIME PARAMEDIC DTL Glucose, S 89 70 - 140 mg/dL 12/24/2023 1:06 PM FULL TIME PARAMEDIC DTL Protein, Total, S 5.5(L) 6.3 - 7.9 g/dL 12/24/2023 1:06 PM FULL TIME PARAMEDIC DTL Albumin, S 3.7 3.5 - 5.0 g/dL 12/24/2023 1:06 PM FULL TIME PARAMEDIC DTL Aspartate Aminotransferase (AST), S 72(H) 8 - 48 U/L 12/24/2023 1:06 PM FULL TIME PARAMEDIC DTL Alkaline Phosphatase, S 573(H) 40 - 129 U/L 12/24/2023 1:06 PM FULL TIME PARAMEDIC DTL Alanine Aminotransferase (ALT), S 169(H) 7 - 55 U/L 12/24/2023 1:06 PM FULL TIME PARAMEDIC DTL Bilirubin, Total, S 0.9 0.0 - 1.2 mg/dL 12/24/2023 1:06 PM FULL TIME PARAMEDIC DTL Blood (Blood, Venous) 12/24/2023 11:21 AM FULL TIME PARAMEDIC 12/24/2023 11:56 AM FULL TIME PARAMEDIC Noelle Reyes P.A.-C., P.A. LAB BLOOD ADD-ON [facility] [address] [place] [address], [facility] DTL [facility] [address] [place] [phone] * (ABNORMAL) CEA (Carcinoembryonic Antigen) (12/24/2023 11:21 AM FULL TIME PARAMEDIC) Pathologist [facility] Carcinoembryonic Ag (CEA), S 11.4(H) ng/mL 12/24/2023 5:[address] [facility] Comment: ----REFERENCE VALUE---- <=3.0 (Non-smokers) Some smokers may have elevated CEA, usually <5.0. ----ADDITIONAL INFORMATION---- The testing method is an immunoenzymatic assay manufactured by [employer]. and performed on the Camalize SLI 800. ? Values obtained with different assay methods or kits may be different and cannot be used interchangeably. ? Test results cannot be interpreted as absolute evidence for the presence or absence of malignant disease. Blood (Blood, Venous) 12/24/2023 11:21 AM FULL TIME PARAMEDIC 12/24/2023 4:06 PM FULL TIME PARAMEDIC Noelle Reyes P.A.-C., P.A. LAB BLOOD ADD-ON [facility] [address] [place] [address] [facility] [address] [place] [address] * (ABNORMAL) CBC with Differential, Blood (12/24/2023 11:21 AM FULL TIME PARAMEDIC) [facility] Hemoglobin 14.1 13.2 - 16.6 g/dL 12/24/2023 11:58 AM FULL TIME PARAMEDIC DTL Hematocrit 43.7 38.3 - 48.6 % 12/24/2023 11:58 AM FULL TIME PARAMEDIC DTL Erythrocytes 4.74 4.35 - 5.65 x10(12)/L 12/24/2023 11:58 AM FULL TIME PARAMEDIC DTL MCV 92.2 78.2 - 97.9 fL 12/24/2023 11:58 AM FULL TIME PARAMEDIC DTL RBC Distrib Width 17.2(H) 11.8 - 14.5 % 12/24/2023 11:58 AM FULL TIME PARAMEDIC DTL Platelet Count 103(L) 135 - 317 x10(9)/L 12/24/2023 12:40 PM FULL TIME PARAMEDIC DTL Comment:Rechecked Leukocytes 9.8(H) 3.4 - 9.6 x10(9)/L 12/24/2023 12:40 PM FULL TIME PARAMEDIC DTL Neutrophils 7.44(H) 1.56 - 6.45 x10(9)/L 12/24/2023 11:58 AM FULL TIME PARAMEDIC DHPM Lymphocytes 1.07 0.95 - 3.07 x10(9)/L 12/24/2023 11:58 AM FULL TIME PARAMEDIC DTL Monocytes 1.14(H) 0.26 - 0.81 x10(9)/L 12/24/2023 11:58 AM FULL TIME PARAMEDIC DTL Eosinophils 0.13 0.03 - 0.48 x10(9)/L 12/24/2023 11:58 AM FULL TIME PARAMEDIC DTL Basophils 0.05 0.01 - 0.08 x10(9)/L 12/24/2023 11:58 AM FULL TIME PARAMEDIC DTL Blood (Blood, Venous) 12/24/2023 11:21 AM FULL TIME PARAMEDIC 12/24/2023 11:43 AM FULL TIME PARAMEDIC Noelle Reyes P.A.-C., P.A. LAB BLOOD ADD-ON Performing Organization Address City/State/[facility] Co de Phone Number [facility] [address] [place] [address], [facility] DTL [facility] [address] [place] [address] [facility] [address] [place] [address] * (ABNORMAL) Bilirubin, Direct (12/24/2023 11:21 AM FULL TIME PARAMEDIC) Bilirubin, Direct, S 0.4(H) 0.0 - 0.3 mg/dL 12/24/2023 1:06 PM FULL TIME PARAMEDIC DTL Blood (Blood, Venous) 12/24/2023 11:21 AM FULL TIME PARAMEDIC 12/24/2023 11:56 AM FULL TIME PARAMEDIC Noelle Reyes P.A.-C., P.A. LAB BLOOD ADD-ON [facility] [address] [place] [address], [place] DTL [facility] [address] [place] [address] documented in this encounter Visit Diagnoses Diagnosis [...] documented as of this encounter Care Teams Material Handling Technician Relationship Specialty Start Date End Date Elsewhere, Pcp PCP - General Internal Medicine 10/14/22 documented as of this encounter
--- OUTSIDE RECORDS SUMMARY | 2023-12-31 10:43 | XMS_ITS | Encounter Summary ---
Author Name Unknown Organization [facility] Address [address] [place] [phone] Care Team Providers Care Service Employee Name Role Phone Elsewhere, Pcp Primary Care Provider Unavailabl e Reason for Referral * Outpatient (Routine) - Closed Specialty Diagnoses / Procedures Referred By Contac t Referred To Contact Diagnoses Malignant Neoplasm Of Rectum (HCC) Pain Cancer Associated Procedures ECG 12 Lead Louisa Padilla P.A.-C. [address] [place] [phone] [facility] Referral ID Status Reason Start Date Expiration Date Visits Re quested Visits Authorized [id number] Closed 10/02/2023 10/01/2024 1 1 IMPLEMENTATION CONSULTANT * Outpatient (Routine) - Closed Specialty Diagnoses / Procedures Referred By Contac t Referred To Contact Palliative Medicine Diagnoses na Louisa Padilla P.A.-C. 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 [address] [place] [phone] [facility] Referral ID Status Reason Start Date Expiration Date Visits Re quested Visits Authorized [id number] Closed 09/10/2023 09/09/2024 1 1 Encounter Details Date Type Department Care Team (Latest Contact Info) Description 09/26/2023 1:00 PM ERP IMPLEMENTATION CONSULTANT Comprehensive Visit Department of Palliative Care in [place], [place] [address] [place] [phone] Giorgio Fishman M.D. [address] [place] [address] Louisa Padilla P.A.-C. [address] [place] [phone] Sunita Nguyen R.N. [address] [place] [phone] Malignant Neoplasm Of Rectum (HCC) (Primary Dx); [...] Date Recorded PHQ-2 Score 0 04/25/2019 [facility] of Occupat ional [facility] - Occupational Stress Questionnaire Answer Date Recorded [...] degree (e.g., MA, MS, Ana Lilia, MEd, FINANCIAL ACCOUNTING ANALYST, GORDO) 02/15/2022 Sex and Gender Information Value Date Recorded Sex Assigned at Male 04/23/2018 1:23 PM CDT Gender Identity Male 04/23/2018 1:23 PM CDT Sexual Orientation Straight 04/23/2018 1: 23 PM CDT documented as of this encounter Last Filed Vital Signs Vital Sign Reading Time Taken Comments Blood Pressure 146/100 09/26/2023 12:56 PM ERP IMPLEMENTATION CONSULTANT Pulse 117 09/26/2023 12:56 PM ERP IMPLEMENTATION CONSULTANT Temperature 36.3 ??C (97.3 ??F) 09/26/2023 12:[address] Respiratory Rate - - Oxygen Saturation 98% 09/26/2023 12:56 PM ERP IMPLEMENTATION CONSULTANT Inhaled Oxygen Concentration - - Weight - - Height - - Body Mass Index - - documented in this encounter Patient Instructions * Patient Instructions* Sunita Nguyen R.N. - 09/26/2023 1:00 PM ERP IMPLEMENTATION CONSULTANT PAIN: -start methadone. Long acting pain [...] treat this side effect. There are several sreq-fdt-wasumab options. Goal is to have a soft, [...] for further guidance. Palliative Care Clinic Team: [phone] IMPLEMENTATION CONSULTANT documented in this encounter Progress Notes [...] Care: Care for People with Serious Illness [id number] and Integrative and Supportive Therapies for Palliative Care Patients [id number] provided at this visit. Standard Opioid education included: Medication specific education for Methadone and hydromorphone Safe Management of Controlled Substances [id number] Important Information About Opioid Medication [id number] (page 7 opioid withdrawal) Treating Constipation Caused by Pain Medications [id number] Follow-up as per the consult note of Louisa Padilla PA-C IMPLEMENTATION CONSULTANT documented in this encounter Consult Notes * Louisa Padilla P.A.-C. 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 [place] family for [...] controlled substance prescribing: cancer related pain State [facility] Review: We have reviewed the patient's record in the [place] prescription monitoring program September 26, 2023. Opioid Toxicity Review: We have reviewed the risks of opioid therapy and completed an assessment oftoxicities. Opioid Aberrant Use Concerns: None Recommended Opioid Regimen as of September 26, 2023.: as above Opioid Risk Score: Last Opioid Risk Tool charting Flowsheet Row Comprehensive Visit from 09/26/2023 in Department of Palliative Care in [place], [place] ORT Total Score (max 26) 1 We have reviewed risks, benefits and alternatives related to opioid prescribing as well as relevantmitigation strategies. Psychosocial Care Needs other At this time discussed his goals to have further conversations with his 7 year old son. He feels like they need to provide him more information about the cancer. I provided a document from [facility] regarding parenting at a challenging time. I am hopeful he and his can look through this, think about the messaging and reach out to us if they need further guidance on having this conversation with their son. SW referral may be helpful, I did not [...] spent was 60 minutes. Louisa Padilla P.A.-C. IMPLEMENTATION CONSULTANT documented in this encounter Plan of Treatment Upcoming Encounters Date Type Department Care Team (Latest Contact Info) Description 03/23/2024 7:30 AM CDT Clinical Communication Virtual Review in [address] [address] 03/24/2024 9:20 AM CDT Lab Department of Infusion Therapy in [address] [phone] Ned Alegria M.D. [address] [place] [phone] 03/24/2024 11:00 AM CDT Appointment Department of Radiology, [facility], in [address] [phone] Ned Alegria M.D. [address] [place] [phone] 03/24/2024 3:30 PM CDT Office Visit Department of Oncology in [address] [phone] Ned Alegria M.D. [address] [place] [phone] Scheduled Referrals Name Type Priority Associated Diagnoses Order Schedule Palliative Care office visit (clinic) Outpatient Referral Routine Expected: 10/17/2023 (Approximate), Expires: 12/27/2024 documented as of this encounter Goals Goal Patient Goal Type Associated Problems Recent Progress Patient-Stated? Author Your pain? Symptom Management 9(11/20/2022 2:41 PM ERP IMPLEMENTATION CONSULTANT) No Phyllis-Girma Bush R.N., O.C.N. Note: 05/24/2021: [...] * ECG 12 Lead (10/28/2023 12:00 PM ERP IMPLEMENTATION CONSULTANT) Ventricular Rate ECG/Min 118 BPM MUSE NJ Interval 146 ms MUSE QRSD Interval 88 ms MUSE QT Interval 326 ms MUSE QTC Interval 456 ms MUSE P [place] 47 degrees MUSE R [place] 72 degrees MUSE T Wave [place] 32 degrees MUSE 10/28/2023 12:0 0 PM ERP IMPLEMENTATION CONSULTANT 10/28/2023 12:09 PM ERP IMPLEMENTATION CONSULTANT Impressions MUSE - 10/28/2023 12:09 PM ERP IMPLEMENTATION CONSULTANT Sinus tachycardia Otherwise normal ECG When [...] documented as of this encounter Care Teams Service Employee Relationship Specialty Start Date End Date Elsewhere, Pcp PCP - General Internal Medicine 10/14/22 documented as of this encounter
--- OUTSIDE RECORDS SUMMARY | 2023-12-31 10:43 | XMS_ITS | Encounter Summary ---
Author Name Unknown Organization [facility] Address [address] [place] [address] Care Team Providers Care Dip Tanker Name Role Phone Elsewhere, Pcp Primary Care Provider Unavailabl e Encounter Details Date Type Department Care Team (Late st Contact Info) Description 09/06/2023 Orders Only Department of Oncology in [place], [place] [address] [place] [phone] Manny Farfan M.D. [address] [place] [address] Social History Tobacco Use Types Packs/Day Years [...] 04/25/2019 [facility] of Occupat ional Health - [...] degree (e.g., MA, MS, Ana Lilia, MEd, VESSEL LINER, GORDO) 02/15/2022 Sex and Gender Information Value Date Recorded Sex Assigned at Male 04/23/2018 1:23 PM CDT Gender Identity Male 04/23/2018 1:23 PM CDT Sexual Orientation Straight 04/23/2018 1: 23 PM CDT documented as of this encounter Plan of Treatment Upcoming Encounters Date Type Department Care Team (Latest Contact Info) Description 03/23/2024 7:30 AM CDT Clinical Communication Virtual Review in [place], [place] 200 [place] [address] 03/24/2024 9:20 AM CDT Lab Department of Infusion Therapy in [place], [place] [address] [place] [phone] Ned Alegria M.D. [address] [place] [phone] 03/24/2024 11:00 AM CDT Appointment Department of Radiology, [facility], in [place], [place] [address] [place] [address] Ned Alegria M.D. [address] [place] [phone] 03/24/2024 3:30 PM CDT Office Visit Department of Oncology in [place], [place] [address] [place] [address] Ned Alegria M.D. [address] [place] [phone] documented as of this encounter Goals Goal Patient Goal Type Associated Problems Recent Progress Patient-Stated? Author Your pain? Symptom Management 9(11/20/2022 2:41 PM DIRECTOR OF ANALYTICS) Raisa Ferguson-Girma Bush, RCandidoN., O.C.N. Note: 05/24/2021: [...] documented as of this encounter Care Teams Dip Tanker Relationship Specialty Start Date End Date Elsewhere, Pcp PCP - General Internal Medicine 10/14/22 documented as of this encounter
--- OUTSIDE RECORDS SUMMARY | 2023-12-31 10:43 | XMS_ITS | Encounter Summary ---
Author Name Unknown Organization [facility] Address [address] [place] [address] Care Team Providers Care Administrative Office Specialist Name Role Phone Elsewhere, Pcp Primary Care Provider Unavailabl e Encounter Details Date Type Department Care Team (Late st Contact Info) Description 09/09/2023 11:30 AM CDT Lab Department of Infusion Therapy in [place], [place] [address] [place] [address] Giorgio Fishman M.D. [address] [place] [phone] Secondary Malignant Neoplasm Lymph Node Multiple Site [...] often do you attend chur ch or buddhism services? Never 02/03/2023 Do you [...] 04/25/2019 [facility] of Occupat ional [facility] - Occupational Stress Questionnaire Answer [...] AM CDT Clinical Communication Virtual Review in [place], [place] [address] [place] [address] 03/24/2024 9:20 AM CDT Lab Department of Infusion Therapy in [place], [place] [address] [place] [address] Ned Alegria M.D. [address] [place] [phone] 03/24/2024 11:00 AM CDT Appointment Department of Radiology, [facility], in [place], [place] [address] [place] [address] Ned Alegria M.D. [address] [place] [phone] 03/24/2024 3:30 PM CDT Office Visit Department of Oncology in [place], [place] [address] [place] [address] Ned Alegria M.D. [address] [place] [phone] documented as of this encounter Goals Goal Patient Goal Type Associated Problems Recent Progress Patient-Stated? Author Your pain? Symptom Management 9(11/20/2022 2:41 PM COMMERCIAL DRONE SOFTWARE DEVELOPER) No Fee-Girma Bush, R.N., O.C.N. Note: 05/24/2021: [...] CDT Giorgio Fishman M.D. LAB BLOOD ADD-ON [facility] [address] [place] [address], [facility] DTL [facility] [address] [place] [address] * (ABNORMAL) CBC with Differential, Blood (09/09/2023 [...] Giorgio Fishman M.D. LAB BLOOD ADD-ON [facility] [address] [place] [address], [facility] DTL [facility] [address] [place] [address] DHPM [facility] [address] [place] [address] documented in this encounter Visit Diagnoses Diagnosis [...] documented as of this encounter Care Teams Administrative Office Specialist Relationship Specialty Start Date End Date Elsewhere, Pcp PCP - General Internal Medicine 10/14/22 documented as of this encounter
--- OUTSIDE RECORDS SUMMARY | 2023-12-31 10:43 | XMS_ITS | Encounter Summary ---
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 [address] [place] [address] [facility] Referral ID Status Reason Start Date Expiration Date Visits Re quested Visits Authorized [id number] Closed 09/10/2023 09/09/2024 1 1 Reason for Visit * Outpatient (Routine) - Closed Specialty Diagnoses / Procedures Referred By Halima owen Referred To Contact Oncology Giorgio Guzman M.D. [address] [place] [address] [facility] Referral ID Status Reason Start Date Expiration Date Visits Re quested Visits Authorized [id number] Closed 09/08/2023 09/07/2026 1 1 Encounter Details Date Type Department Care Team (Late st Contact Info) Description 09/09/2023 2:40 PM CDT Office Visit Department of Oncology in [place], [place] [address] [place] [address] Giorgio Guzman M.D. [address] [place] [address] Malignant Neoplasm Of Rectum (HCC) [...] Answer Date Recorded PHQ-2 Score 0 04/25/2019 [facility] [place] of Occupat ional Health - Occupational Stress [...] degree (e.g., MA, MS, Ana Lilia, MEd, HELICOPTER DISPATCHER, GORDO) 02/15/2022 Sex and Gender Information Value [...] PHYSICIAN ELSEWHERE, PCP LOCAL ONCOLOGIST No care automobile washer steam to display PRIMARY [place] ONCOLOGIST Giorgio Guzman M.D. CHIEF COMPLAINT / [...] was positive for invasive adenocarcinoma. Came to [facility] and seen by Gastroenterology. Underwent staging MRI [...] Right posterolateral thoracotomy and mediastinal lymphadenectomy. SURGEON(S) WIRELESS SALES REPRESENTATIVE: Jazmine Bowden M.D. ASSISTING RESIDENT: Bandar Owusu [...] for metastasis 06/11/2021 - 06/13/2021 Radiation Therapy [id number] cGy in 3 fractions to right posterior [...] work with the counselor for now. Otherwise licensed social worker may be able to help. Plan: 1. [...] AM CDT Clinical Communication Virtual Review in [place], [place] [address] [place] [address] 03/24/2024 9:20 AM CDT Lab Department of Infusion Therapy in [address] [address] Ned Alegria M.D. [address] [place] [phone] 03/24/2024 11:00 AM CDT Appointment Department of Radiology, [facility], in [address] [address] Ned Alegria M.D. [address] [place] [phone] 03/24/2024 3:30 PM CDT Office Visit Department of Oncology in [address] [address] Ned Alegria M.D. [address] [place] [address] Scheduled Referrals Name Type Priority Associated Diagnoses [...] Your pain? Symptom Management 9(11/20/2022 2:41 PM WANT AD SUPERVISOR) No Fee-Girma Bush, R.N., O.C.N. Note: [...] image 40, 61, 68) and segment 5/6 ([id number] image 103) have also very slightly increased in size. Additional linearareas of hypoenhancement along the inferior margin of the prior ablationdefect tract near the hepatic hilum and may represent hilar adenopathy (series 13 image 81). Multipleadditional enlarged hilar and upper retroperitoneal lymph nodes, includinga portal caval conglomerate measuring approximately 3.6 x 2.4 cm ([id number] image 85, series 17 image 141), previously [...] documented as of this encounter Care Teams Level Vial Inspector Relationship Specialty Start Date End Date Elsewhere, Pcp PCP - General Internal Medicine 10/14/22 documented as of this encounter
--- OUTSIDE RECORDS SUMMARY | 2023-12-31 10:43 | XMS_ITS | Encounter Summary ---
Author Name Unknown Organization [facility] Address [address] [place] [address] Care Team Providers Care Central Office Repairer Name Role Phone Elsewhere, Pcp Primary Care Provider Unavailabl e Reason for Visit * Reason Comments Med Change Request Med refill : Amlodip ine besylate Encounter Details Date Type Department Care Team (Late st Contact Info) Description 09/18/2023 Refill Department of Oncology in [place], [place] [address] [place] [address] Giorgio Fishman M.D. [address] [place] [phone] Med Change Request (Med refill : Amlodipine [...] Answer Date Recorded PHQ-2 Score 0 04/25/2019 [facility] of Occupat ional Health - Occupational [...] degree (e.g., MA, MS, Ana Lilia, MEd, CHARGE MANAGER, GORDO) 02/15/2022 Sex and Gender Information [...] Fishman M.D. Last refill: 08/25/2023 Rx #: [id number] Pharmacy comment: REQUEST FOR 90 DAYS PRESCRIPTION. To be filled at: [facility] [id number] [place] [address] documented in this encounter Plan of Treatment Upcoming Encounters Date Type Department Care Team (Latest Contact Info) Description 03/23/2024 7:30 AM CDT Clinical Communication Virtual Review in [address] [address] 03/24/2024 9:20 AM CDT Lab Department of Infusion Therapy in [address] [address] Ned Alegria M.D. [address] [place] [phone] 03/24/2024 11:00 AM CDT Appointment Department of Radiology, [facility], in [address] [address] Ned Alegria M.D. [address] [place] [phone] 03/24/2024 3:30 PM CDT Office Visit Department of Oncology in [address] [address] Ned Alegria M.D. [address] [place] [phone] documented as of this encounter Goals Goal Patient Goal Type Associated Problems Recent Progress Patient-Stated? Author Your pain? Symptom Management 9(11/20/2022 2:41 PM MUD JACK NOZZLEMAN) No Fee-Girma Bush, RCandidoN., O.C.N. Note: 05/24/2021: Pain algorithm completed. [facility] 05/24/2021: Followup 06/07 via portal per patient [...] Recommendations at initial call and response: Mr. Taabres had a flare up of pain after initial assessment and spoke with Dr. Fsihman. He was switched over to oxycodone and [...] documented as of this encounter Care Teams Central Office Repairer Relationship Specialty Start Date End Date Elsewhere, Pcp PCP - General Internal Medicine 10/14/22 documented as of this encounter
--- OUTSIDE RECORDS SUMMARY | 2023-12-31 10:43 | XMS_ITS | Encounter Summary ---
Author Name Unknown Organization [facility] Address [address] [place] [address] Care Team Providers Care Biological Scientist Name Role Phone Elsewhere, Pcp Primary Care Provider Unavailabl e Encounter Details Date Type Department Care Team (Late st Contact Info) Description 09/25/2023 Orders Only Department of Oncology in [place], [place] [address] [place] [address] Kristi Dominique M.D. [address] [place] [phone] Social History Tobacco Use Types Packs/Day Years [...] any clubs o r organizations such as adventism groups, unions, fraternal or athletic groups, or [...] Answer Date Recorded PHQ-2 Score 0 04/25/2019 [facility] of Occupat ional Health - Occupational [...] degree (e.g., MA, MS, Ana Lilia, MEd, PAD TUFTER, GORDO) 02/15/2022 Sex and Gender Information Value Date Recorded Sex Assigned at Male 04/23/2018 1:23 PM CDT Gender Identity Male 04/23/2018 1:23 PM CDT Sexual Orientation Straight 04/23/2018 1: 23 PM CDT documented as of this encounter Plan of Treatment Upcoming Encounters Date Type Department Care Team (Latest Contact Info) Description 03/23/2024 7:30 AM CDT Clinical Communication Virtual Review in [place], [place] [address] [place] [address] 03/24/2024 9:20 AM CDT Lab Department of Infusion Therapy in [place], [place] [address] [place] [phone] Ned Alegria M.D. [address] [place] [phone] 03/24/2024 11:00 AM CDT Appointment Department of Radiology, [facility], in [place], [place] [address] [place] [address] Ned Alegria M.D. [address] [place] [address] 03/24/2024 3:30 PM CDT Office Visit Department of Oncology in [place], [place] [address] [place] [address] Ned Alegria M.D. [address] [place] [phone] documented as of this encounter Goals Goal Patient Goal Type Associated Problems Recent Progress Patient-Stated? Author Your pain? Symptom Management 9(11/20/2022 2:41 PM WEATHER ANALYST) Raisa Ferguson-Girma Bush RCandidoN., O.C.N. Note: 05/24/2021: Pain algorithm completed. [facility] 05/24/2021: Followup 06/07 via portal per patient [...] documented as of this encounter Care Teams Biological Scientist Relationship Specialty Start Date End Date Elsewhere, Pcp PCP - General Internal Medicine 10/14/22 documented as of this encounter
--- OUTSIDE RECORDS SUMMARY | 2023-12-31 10:43 | XMS_ITS | Encounter Summary ---
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 [address] [place] [address] [facility] Referral ID Status Reason Start Date Expiration Date Visits Re quested Visits Authorized [id number] Closed 09/10/2023 09/09/2024 1 1 Encounter Details Date Type Department Care Team (Latest Contact Info) Description 09/18/2023 3:05 PM CDT - 09/18/2023 11:59 PM CDT Hospital Encounter Department of Radiology, [facility], in [place], [place] [address] [place] [address] Giorgio Fishman M.D. [address] [place] [address] Malignant Neoplasm Of Rectum (HCC); Secondary Malignant [...] degree (e.g., MA, MS, Ana Lilia, MEd, ALCOHOL STILL OPERATOR, GORDO) 02/15/2022 Sex and Gender Information [...] for chest pain. 25 tablet 12 05/28/2018 potassium chloride (K-TAB) 20 mEq CR tablet [...] WITH LORAZEPAM. 24 tablet 1 04/22/2023 09/26/2023 omega 5-pwh-hcl-fish oil 1,000 mg (120 mg-180 mg) capsule Take 2 capsules by mouth. 0 05/16/2022 12/23/2023 ondansetron ODT (ZOFRAN-ODT) 8 mg disintegrating tablet [...] this encounter Nursing Notes * Myriam Hendrickson R.N. - 09/18/2023 3:45 PM CDT Eovist administration [...] AM CDT Clinical Communication Virtual Review in [address] [address] 03/24/2024 9:20 AM CDT Lab Department of Infusion Therapy in [address] [address] Ned Alegria M.D. [address] [place] [phone] 03/24/2024 11:00 AM CDT Appointment Department of Radiology, [facility], in [address] [address] Ned Alegria M.D. [address] [place] [phone] 03/24/2024 3:30 PM CDT Office Visit Department of Oncology in [address] [phone] Ned Alegria M.D. [address] [place] [phone] documented as of this encounter Goals Goal Patient Goal Type Associated Problems Recent Progress Patient-Stated? Author Your pain? Symptom Management 9(11/20/2022 2:41 PM SENIOR TECH MANUFACTURING ENGINEERING) No Phyllis-Girma Bush R.N., O.C.N. Note: 05/24/2021: [...] image 40, 61, 68) and segment 5/6 ([id number] image 103) have also very slightly increased in size. Additional linearareas of hypoenhancement along the inferior margin of the prior ablationdefect tract near the hepatic hilum and may represent hilar adenopathy (series 13 image 81). Multipleadditional enlarged hilar and upper retroperitoneal lymph nodes, includinga portal caval conglomerate measuring approximately 3.6 x 2.4 cm ([id number] image 85, series 17 image 141), previously [...] as of this encounter Care Teams Service Order Taker Relationship Specialty Start Date End Date Elsewhere, Pcp PCP - General Internal Medicine 10/14/22 documented as of this encounter
--- OUTSIDE RECORDS SUMMARY | 2023-12-31 10:43 | XMS_ITS | Encounter Summary ---
Author Name Unknown Organization [facility] Address [address] [place] [address] Care Team Providers Care Calibration Specialist Name Role Phone Elsewhere, Pcp Primary Care Provider Unavailabl e Encounter Details Date Type Department Care Team (Late st Contact Info) Description 09/26/2023 Orders Only Department of Oncology in [place], [place] [address] [place] [phone] Kristi Dominique M.D. [address] [place] [address] Social History Tobacco Use Types [...] How often do you attend chur or voodoo services? Never 02/03/2023 Do you [...] Answer Date Recorded PHQ-2 Score 0 04/25/2019 [facility] - Occupational Stress Questionnaire Answer Date [...] degree (e.g., MA, MS, Ana Lilia, MEd, ELECTROTYPE FINISHER, GORDO) 02/15/2022 Sex and Gender Information Value Date Recorded Sex Assigned at Male 04/23/2018 1:23 PM CDT Gender Identity Male 04/23/2018 1:23 PM CDT Sexual Orientation Straight 04/23/2018 1: 23 PM CDT documented as of this encounter Plan of Treatment Upcoming Encounters Date Type Department Care Team (Latest Contact Info) Description 03/23/2024 7:30 AM CDT Clinical Communication Virtual Review in [place], [place] 200 [place] [address] 03/24/2024 9:20 AM CDT Lab Department of Infusion Therapy in [place], [place] [address] [place] [phone] Ned Alegria M.D. [address] [place] [phone] 03/24/2024 11:00 AM CDT Appointment Department of Radiology, [facility], in [place], [place] [address] [place] [address] Ned Alegria M.D. [address] [place] [phone] 03/24/2024 3:30 PM CDT Office Visit Department of Oncology in [place], [place] [address] [place] [address] Ned Alegria M.D. [address] [place] [phone] documented as of this encounter Goals Goal Patient Goal Type Associated Problems Recent Progress Patient-Stated? Author Your pain? Symptom Management 9(11/20/2022 2:41 PM HOME ASSESSMENT NURSE) Girma Gaspar RRancho., O.C.N. Note: 05/24/2021: Pain algorithm completed. [facility] [...] documented as of this encounter Care Teams Calibration Specialist Relationship Specialty Start Date End Date Elsewhere, Pcp PCP - General Internal Medicine 10/14/22 documented as of this encounter
--- OUTSIDE RECORDS SUMMARY | 2023-12-31 10:43 | XMS_ITS | Encounter Summary ---
Author Name Unknown Organization [facility] Address [address] [place] [address] Care Team Providers Care Christmas Bell Ringer Name Role Phone Elsewhere, Pcp Primary Care Provider Unavailabl e Encounter Details Date Type Department Care Team (Late st Contact Info) Description 09/26/2023 Orders Only Department of Oncology in [place], [place] [address] [place] [phone] Kristi Dominique M.D. [address] [place] [address] Social History Tobacco Use Types [...] How often do you attend chur or yarsanism services? Never 02/03/2023 Do you belong to any clubs o r organizations such as episcopalian groups, unions, fraternal or athletic groups, or [...] Recorded PHQ-2 Score 0 04/25/2019 [facility] - Occupational Stress Questionnaire Answer Date Recorded [...] degree (e.g., MA, MS, Ana Lilia, MEd, WILDLIFE CONTROL OPERATOR, GORDO) 02/15/2022 Sex and Gender Information Value Date Recorded Sex Assigned at Male 04/23/2018 1:23 PM CDT Gender Identity Male 04/23/2018 1:23 PM CDT Sexual Orientation Straight 04/23/2018 1: 23 PM CDT documented as of this encounter Plan of Treatment Upcoming Encounters Date Type Department Care Team (Latest Contact Info) Description 03/23/2024 7:30 AM CDT Clinical Communication Virtual Review in [place], [place] [address] [place] [address] 03/24/2024 9:20 AM CDT Lab Department of Infusion Therapy in [place], [place] [address] [place] [phone] Ned Alegria M.D. [address] [place] [phone] 03/24/2024 11:00 AM CDT Appointment Department of Radiology, [facility], in [place], [place] [address] [place] [address] Ned Alegria M.D. [address] [place] [phone] 03/24/2024 3:30 PM CDT Office Visit Department of Oncology in [place], [place] [address] [place] [address] Ned Alegria M.D. [address] [place] [phone] documented as of this encounter Goals Goal Patient Goal Type Associated Problems Recent Progress Patient-Stated? Author Your pain? Symptom Management 9(11/20/2022 2:41 PM INTERNAL MEDICINE PHYSICIAN ASSISTANT) Girma Gaspar RRancho., O.C.N. Note: 05/24/2021: Pain algorithm completed. [facility] 05/24/2021: Followup 06/07 [...] documented as of this encounter Care Teams Christmas Bell Ringer Relationship Specialty Start Date End Date Elsewhere, Pcp PCP - General Internal Medicine 10/14/22 documented as of this encounter
--- OUTSIDE RECORDS SUMMARY | 2023-12-31 10:43 | XMS_ITS | Encounter Summary ---
Author Name Unknown Organization [facility] Address [address] [place] [address] Care Team Providers Care Electrician Apprentice Name Role Phone Elsewhere, Pcp Primary Care Provider Unavailabl e Encounter Details Date Type Department Care Team (Late st Contact Info) Description 09/04/2023 Orders Only Division of Pain Medicine in [place], [place] [address] [place] [address] Yassine Parekh M.D. [address] [place] [address] Pain Chest Wall (Primary Dx); Pain Neuropathic; [...] Answer Date Recorded PHQ-2 Score 0 04/25/2019 [facility] [place] of Occupat ional Health - Occupational Stress [...] degree (e.g., MA, MS, Ana Lilia, MEd, CAMPUS AMBASSADOR, GORDO) 02/15/2022 Sex and Gender Information Value Date Recorded Sex Assigned at Male 04/23/2018 1:23 PM CDT Gender Identity Male 04/23/2018 1:23 PM CDT Sexual Orientation Straight 04/23/2018 1: 23 PM CDT documented as of this encounter Plan of Treatment Upcoming Encounters Date Type Department Care Team (Latest Contact Info) Description 03/23/2024 7:30 AM CDT Clinical Communication Virtual Review in [place], [place] [address] [place] [address] 03/24/2024 9:20 AM CDT Lab Department of Infusion Therapy in [address] [phone] Ned Alegria M.D. [address] [place] [phone] 03/24/2024 11:00 AM CDT Appointment Department of Radiology, [facility], in [place], [place] [address] [place] [address] Ned Alegria M.D. [address] [place] [phone] 03/24/2024 3:30 PM CDT Office Visit Department of Oncology in [place], [place] [address] [place] [address] Ned Alegria M.D. [address] [place] [phone] documented as of this encounter Goals Goal Patient Goal Type Associated Problems Recent Progress Patient-Stated? Author Your pain? Symptom Management 9(11/20/2022 2:41 PM DREDGE MATE) No Phyllis-Girma Bush RCandidoN., O.C.N. Note: 05/24/2021: [...] documented as of this encounter Care Teams Electrician Apprentice Relationship Specialty Start Date End Date Elsewhere, Pcp PCP - General Internal Medicine 10/14/22 documented as of this encounter
--- OUTSIDE RECORDS SUMMARY | 2023-12-31 10:43 | XMS_ITS | Encounter Summary ---
Author Name Unknown Organization [facility] Address [address] [place] [address] Care Team Providers Care Senior Drupal Developer Name Role Phone Elsewhere, Pcp Primary Care Provider Unavailabl e Reason for Visit * Outpatient (Routine) - Closed Specialty Diagnoses / Procedures Referred By Contac t Referred To Contact Diagnoses Pain Chest Wall Pain Neuropathic Pain Post Thoracotomy Chronic Procedures FL Spine Intercostal Injection Right FL Thoracic Paravertebral Block Injection Right HI PARAVERTEB BLOCK THOR SNGL HI PARAVERTEB BLOCK THOR 2ND & ADD HI INJ ANES INTERCOSTAL NRV SNGL LVL HI INJ ANES INTERCOSTAL NRV EA ADDL LEVEL Yassine Parekh M.D. [address] [place] [phone] [facility] Referral ID Status Reason Start Date Expiration Date Visits Re quested Visits Authorized [id number] Closed 09/04/2023 09/03/2024 1 1 Encounter Details Date Type Department Care Team (Latest Contact Info) Description 09/29/2023 12:26 PM NURSE CARE MANAGER - 09/29/2023 11:59 PM [facility] Hospital Encounter Division of Pain Medicine in [place], [place] [address] [place] [phone] Yassine Parekh M.D. [address] [place] [phone] Pain Chest Wall; Pain Neuropathic; [...] How often do you attend chur or jainism services? Never 02/03/2023 Do you [...] Answer Date Recorded PHQ-2 Score 0 04/25/2019 [facility] [place] of Occupat ional Health - Occupational Stress [...] degree (e.g., MA, MS, Ana Lilia, MEd, PILOT STEAM YACHT, GORDO) 02/15/2022 Sex and Gender Information Value Date Recorded Sex Assigned at Male 04/23/2018 1:23 PM CDT Gender Identity Male 04/23/2018 1:23 PM CDT Sexual Orientation Straight 04/23/2018 1: 23 PM CDT documented as of this encounter Last Filed Vital Signs Vital Sign Reading Time Taken Comments Blood Pressure 142/107 09/29/2023 1:51 PM NURSE CARE MANAGER Pulse 110 09/29/2023 1:51 PM NURSE CARE MANAGER Temperature 35 ??C (95 ??F) 09/29/2023 12:42 PM NURSE CARE MANAGER Respiratory Rate - - Oxygen Saturation 99% 09/29/2023 1:51 PM NURSE CARE MANAGER Inhaled Oxygen Concentration - - Weight - [...] g 3 09/26/2023 HYDROmorphone (DILAUDID) 4 mg tabletIndications:Asphalt Paving Supervisor alvino Pain/Nonacute Pain Take 1-1.5 tablets (4-6 [...] 05/08/2020 melatonin 1 mg tablet,chewable Chew 10 mg daily. 0 09/26/2023 multivitamin tablet Take 1 tablet [...] 0.4 mg under the tongue. 0 09/26/2023 omeprazole (PriLOSEC) [address] capsule Take [...] bedtime. 0 11/26/2023 methadone (DOLOPHINE) 5 mg tabletIndications:Asphalt Paving Supervisor alvino Pain/Nonacute Pain Take 0.5 tablets (2.5 mg total) by mouth 2 (two) times a day Indication: Chronic Pain/Nonacute Pain. 30 tablet 0 09/26/2023 10/27/2023 OLANZapine (ZyPREXA) 5 mg tablet Take 1 tablet (5 mg total) by mouth at bedtime. Take days 1-4 after chemotherapy 24 tablet 1 09/26/2023 10/22/2023 omega 8-mma-bsq-fish oil 1,000 mg (120 mg-180 mg) capsule Take 2 capsules by mouth. 0 05/16/2022 12/23/2023 pantoprazole (PROTONIX) 40 mg EC tabletIndications:Rosie yanes [...] Estimated blood loss: 0 Implants: 0 E CARE MANAGER documented in this encounter Plan of Treatment Upcoming Encounters Date Type Department Care Team (Latest Contact Info) Description 03/23/2024 7:30 AM CDT Clinical Communication Virtual Review in [address] [address] 03/24/2024 9:20 AM CDT Lab Department of Infusion Therapy in [address] [phone] Ned Alegria M.D. [address] [place] [phone] 03/24/2024 11:00 AM CDT Appointment Department of Radiology, [facility], in [address] [address] Ned Alegria M.D. [address] [place] [phone] 03/24/2024 3:30 PM CDT Office Visit Department of Oncology in [address] [phone] Ned Alegria M.D. [address] [place] [phone] documented as of this encounter Goals Goal Patient Goal Type Associated Problems Recent Progress Patient-Stated? Author Your pain? Symptom Management 9(11/20/2022 2:41 PM NURSE CARE MANAGER) No Phyllis-Girma Bush R.N., O.C.N. Note: 05/24/2021: [...] INTERCOSTAL INJECTION Routine 09/29/2023 1:50 PM NURSE CARE MANAGER Pain Chest Wall Pain Neuropathic Pain Post Thoracotomy Chronic documented in this encounter Results * FL Spine Intercostal Injection Right (09/29/2023 1:50 PM NURSE CARE MANAGER) Narrative Malron Garcia M.D. - 09/29/2023 1:00 PM NURSE CARE MANAGER Marlon Garcia M.D. ? 09/29/2023 ??6:26 PM FL Spine Intercostal Injection Right Performed by: Marlon Garcia M.D. Authorized by: Yassine Parekh M.D. ?? Care team members present 1. Yareli Wiggins L.P.N. PROCEDURE SUMMARY Indications: Intractable pain Pre-procedural pain: 10 Post-procedural pain: 04/26 Site: thoracic Thoracic: intercostal nerve block Intercostal [...] 1 dose Given 09/29/2023 1:00 PM NURSE CARE MANAGER 3 mL dexAMETHasone injection 10 mg (DECADRON) 10 mg, injection, One-Time Injection, Starting on Fri09/29/23 at 1300, For 1 dose Given 09/29/2023 1:00 PM NURSE CARE MANAGER 10 mg lidocaine 20 mg/mL injection 3 mL (XYLOCAINE) 3 mL, injection, One-Time Injection, Starting on Fri09/29/23 at 1300, For 1 dose Given 09/29/2023 1:00 PM NURSE CARE MANAGER 3 mL documented in this encounter Additional Health Concerns Assessment Noted Time PHQ-9 Depression Total Score: 7 05/26/20 18 10:22 PM CDT documented as of this encounter Care Teams Senior Drupal Developer Relationship Specialty Start Date End Date Elsewhere, Pcp PCP - General Internal Medicine 10/14/22 documented as of this encounter
--- OUTSIDE RECORDS SUMMARY | 2023-12-31 10:43 | XMS_ITS | Encounter Summary ---
Author Name Unknown Organization [facility] Address [address] [place] [address] Care Team Providers Care Trauma Program Manager Name Role Phone Elsewhere, Pcp Primary Care Provider Unavailabl e Reason for Referral * Outpatient (Routine) - Authorized Specialty Diagnoses / Procedures Referred By Contac t Referred To Contact Pain Medicine Diagnoses Other Chest Pain Sean Shen D.O. [address] [place] [phone] [facility] Referral ID Status Reason Start Date Expiration Date V isits Requested Visits Authorized [id number] Authorized 09/30/2023 09/29/2024 1 1 Scheduling Instructions Can be video if not able to schedule at the same time PACU * Specialty Diagnoses / Procedures Referred By Contac t Referred To Contact Marlon Garcia M.D. [address] [place] [phone] [facility] Referral ID Status Reason Start Date Expiration Date Visits Re quested Visits Authorized Scheduling Instructions With Miladys, same day as consult if possible. PACU * Outpatient (Routine) - Authorized Specialty Diagnoses / Procedures Referred By Contac t Referred To Contact Pain Medicine Diagnoses Other Chest Pain Sean Shen D.O. [address] [place] [phone] Marlon Garcia M.D. [address] [place] [address] Referral ID Status Reason Start Date Expiration Date V isits Requested Visits Authorized [id number] Authorized 09/30/2023 09/29/2026 [address] Garcia on a day he is supervising, he already started the conversation with this pt about PNS. PACU Reason for Visit * Reason Onset Date Comments Nerve block response 09/30/2023 Encounter Details Date Type Department Care Team (Latest Contact Info) Description 09/30/2023 Clinical Communication Division of Pain Medicine in [place], [place] [address] [place] [phone] Marlon Garcia M.D. [address] [place] [phone] Nerve block response Social History Tobacco Use [...] 0 04/25/2019 [facility] [place] of Occupat ional Health - Occupational Stress [...] degree (e.g., MA, MS, Ana Lilia, MEd, ENGAGEMENT EXECUTIVE, GORDO) 02/15/2022 Sex and Gender Information Value Date Recorded Sex Assigned at Male 04/23/2018 1:23 PM CDT Gender Identity Male 04/23/2018 1:23 PM CDT Sexual Orientation Straight 04/23/2018 1: 23 PM CDT documented as of this encounter Miscellaneous Notes * Telephone Encounter - Miladys Ortega R.N. - 09/30/2023 2:48 PM RN PACU SUBJECTIVE CHIEF COMPLAINT / REASON FOR CALL [...] nursing clinical judgement and provider Dr. Garcia PACU documented in this encounter Plan of Treatment Upcoming Encounters Date Type Department Care Team (Latest Contact Info) Description 03/23/2024 7:30 AM CDT Clinical Communication Virtual Review in [place], [place] 200 [place] [address] 03/24/2024 9:20 AM CDT Lab Department of Infusion Therapy in [address] [phone] Ned Alegria M.D. [address] [place] [phone] 03/24/2024 11:00 AM CDT Appointment Department of Radiology, [facility], in [address] [phone] Ned Alegria M.D. [address] [place] [phone] 03/24/2024 3:30 PM CDT Office Visit Department of Oncology in [address] [phone] Ned Alegria M.D. [address] [place] [address] Scheduled Referrals Name Type Priority Associated Diagnoses [...] pain? Symptom Management 9(11/20/2022 2:41 PM RN PACU) No Fee-Girma Bush, RCandidoN., O.C.N. Note: 05/24/2021: [...] documented as of this encounter Care Teams Trauma Program Manager Relationship Specialty Start Date End Date Elsewhere, Pcp PCP - General Internal Medicine 10/14/22 documented as of this encounter
--- OUTSIDE RECORDS SUMMARY | 2023-12-31 10:44 | XMS_ITS | Encounter Summary ---
Author Name Unknown Organization [facility] Address [address] [place] [address] Care Team Providers Care Scalper Operator Name Role Phone Elsewhere, Pcp Primary [...] week 02/03/2023 How often do you attend [facility] or zoroastrian services? Never 02/03/2023 Do you belong to any clubs o r organizations such as pentecostalism groups, unions, fraternal or athletic groups, or [...] PHQ-2 Score 0 04/25/2019 [facility] of Occupat ional Health - Occupational [...] (e.g., MA, MS, Ana Lilia, MEd, RETAIL STOCKER, GORDO) 02/15/2022 Sex and Gender Information Value Date Recorded Sex Assigned at Male 04/23/2018 1:23 PM CDT Gender Identity Male 04/23/2018 1:23 PM CDT Sexual Orientation Straight 04/23/2018 1: 23 PM CDT documented as of this encounter Plan of Treatment Upcoming Encounters Date Type Department Care Team (Latest Contact Info) Description 03/23/2024 7:30 AM CDT Clinical Communication Virtual Review in [place], [place] 200 [place] [address] 03/24/2024 9:20 AM CDT Lab Department of Infusion Therapy in [place], [place] [address] [place] [phone] Ned Alegria M.D. [address] [place] [phone] 03/24/2024 11:00 AM CDT Appointment Department of Radiology, [facility], in [place], [place] [address] [place] [phone] Ned Alegria M.D. [address] [place] [phone] 03/24/2024 3:30 PM CDT Office Visit Department of Oncology in [place], [place] [address] [place] [address] Ned Alegria M.D. [address] [place] [phone] documented as of this encounter Goals Goal Patient Goal Type Associated Problems Recent Progress Patient-Stated? Author Your pain? Symptom Management 9(11/20/2022 2:41 PM OCEAN EXPORT AGENT) No Phyllis-Girma Bush, RCandidoN., O.C.N. Note: [...] documented as of this encounter Care Teams Scalper Operator Relationship Specialty Start Date End Date Elsewhere, Pcp PCP - General Internal Medicine 10/14/22 documented as of this encounter
--- OUTSIDE RECORDS SUMMARY | 2023-12-31 10:44 | XMS_ITS | Encounter Summary ---
Author Name Unknown Organization [facility] Address [address] [place] [address] Care Team Providers Care Motor Bus Driver Name Role Phone Elsewhere, Pcp Primary Care Provider Unavailabl e Encounter Details Date Type Department Care Team (Late st Contact Info) Description 08/20/2023 7:58 AM CDT Anesthesia Event Division of Gastroenterology in [place], [place] [address] [place] [phone] Kyler Estrada APRN, CRNA, DNAP [address] [place] [phone] Naveen Biswas M.D. [address] [place] [phone] Anesthesia Record Procedure Summary Procedure Name Responsible [...] PHQ-2 Score 0 [facility]/2019 [facility] Answer Date [...] degree (e.g., MA, MS, Ana Lilia, MEd, DISABILITY CASE MANAGER, GORDO) 02/15/2022 Sex and Gender Information [...] Room / Location: Division of Gastroenterology in [place], [place] Anesthesia Start: 0758 Anesthesia Stop: Procedure: EGD (ESOPHAGEALGASTRODUODENOSCOPY) Diagnosis: Malignant Neoplasm Of Rectum (HCC) Scheduled Providers: Miguel A oMctezuma M.D.; Kyler Estrada APRN, CRNA, DNAP; Max [...] (HCC) [C20] Location: Division of Gastroenterology in [place], [place] Pertinent components of the patient's history [...] with patient /legal guardian or through an digital solutions architect. The use of blood products not discussed Approval to Proceed: approved for anesthesia documented in this encounter Plan of Treatment Upcoming Encounters Date Type Department Care Team (Latest Contact Info) Description 03/23/2024 7:30 AM CDT Clinical Communication Virtual Review in [address] [address] 03/24/2024 9:20 AM CDT Lab Department of Infusion Therapy in [address] [phone] Ned Alegria M.D. [address] [place] [phone] 03/24/2024 11:00 AM CDT Appointment Department of Radiology, [facility], in [address] [phone] Ned Alegria M.D. [address] [place] [phone] 03/24/2024 3:30 PM CDT Office Visit Department of Oncology in [address] [phone] Ned Alegria M.D. [address] [place] [phone] documented as of this encounter Goals Goal Patient Goal Type Associated Problems Recent Progress Patient-Stated? Author Your pain? Symptom Management 9(11/20/2022 2:41 PM ENROBER) No Phyllis-Girma Bush R.N., O.C.N. Note: 05/24/2021: [...] documented as of this encounter Care Teams Motor Bus Driver Relationship Specialty Start Date End Date Elsewhere, Pcp PCP - General Internal Medicine 10/14/22 documented as of this encounter
--- OUTSIDE RECORDS SUMMARY | 2023-12-31 10:44 | XMS_ITS | Encounter Summary ---
Author Name Unknown Organization [facility] Address [address] [place] [address] Care Team Providers Care Pricing Coordinator Name Role Phone Elsewhere, Pcp Primary Care Provider Unavailabl e Reason for Referral * Outpatient (Routine) - Closed Specialty Diagnoses / Procedures Referred By Contac t Referred To Contact Diagnoses Malignant Neoplasm Of Rectum (HCC) Procedures EGD (EsophagealGastroDuodenoscopy ) Ned Alegria M.D. [address] [place] [phone] [facility] Referral ID Status Reason Start Date Expiration Date Visits Re quested Visits Authorized [id number] Closed 07/31/2023 07/30/2024 1 1 Reason for Visit * Outpatient (Routine) - Closed Specialty Diagnoses / Procedures Referred By Contac t Referred To Contact Diagnoses Malignant Neoplasm Of Rectum (HCC) Procedures EGD (EsophagealGastroDuodenoscopy ) Ned Alegria M.D. 200 [place] [address] [facility] Referral ID Status Reason Start Date Expiration Date Visits Re quested Visits Authorized [id number] Closed 07/31/2023 07/30/2024 1 1 Encounter Details Date Type Department Care Team (Latest Contact Info) Description 08/20/2023 6:49 AM CDT - 08/20/2023 11:59 PM CDT Hospital Encounter Division of Gastroenterology in [place], [place] [address] [place] [phone] Ned Alegria M.D. 200 [place] [phone] Miguel A Moctezuma M.D. 200 [place] [phone] Kyler Estrada, CAR PARK ATTENDANT, SUPERVISOR CAR INSTALLATIONS, DNAP 200 [place] [phone] Malignant Neoplasm Of Rectum (HCC) Discharge Disposition: [...] any clubs o r organizations such as holiness groups, unions, fraternal or athletic groups, or [...] Answer Date Recorded PHQ-2 Score 0 04/25/2019 [facility] of Occupat ional Health - Occupational Stress [...] degree (e.g., MA, MS, Ana Lilia, MEd, SINGE WINDER, GORDO) 02/15/2022 Sex and Gender Information Value [...] Care Everywhere. * Care Following Upper Endoscopy (Armenian) documented in this encounter Medications at Time [...] LORAZEPAM. 24 tablet 1 04/22/2023 09/26/2023 omega 7-rcg-oan-fish oil 1,000 mg (120 mg-180 mg) capsule [...] AM CDT Clinical Communication Virtual Review in [place], [place] 200 [place] [address] 03/24/2024 9:20 AM CDT Lab Department of Infusion Therapy in [address] [phone] Ned Alegria M.D. [address] [place] [phone] 03/24/2024 11:00 AM CDT Appointment Department of Radiology, [facility], in [address] [phone] Ned Alegria M.D. [address] [place] [phone] 03/24/2024 3:30 PM CDT Office Visit Department of Oncology in [address] [phone] Ned Alegria M.D. [address] [place] [phone] Scheduled Orders Name Type Priority Associated Diagnoses Orde r Schedule Glucose, POCT Point of Care Testing-Docked Device Routine Routine lab collecti on (next collection) for 1 Occurrences starting 08/20/2023 until 08/20/2023 documented as of this encounter Goals Goal Patient Goal Type Associated Problems Recent Progress Patient-Stated? Author Your pain? Symptom Management 9(11/20/2022 2:41 PM FILLER FEEDER) No Fee-Girma Bush, RCandidoN., O.C.N. Note: 05/24/2021: Pain algorithm completed. [facility] 05/24/2021: Followup 06/07 via [...] antrum, body of stomach, incisura are five neqpgpd-ucuw-oc d irregular soft tissues, ranging from 0.2-0.7 [...] Moctezuma M.D. LAB SURG PATH ORDER SHOLA Performing Organization Address City/State/[facility] Co de Phone Number [facility] [address] [place] [address], [facility] [address] [facility] [address] [place] [address] * Upper GI Endoscopy (08/20/2023 7:44 AM CDT) 08/20/2023 7:44 AM CDT [facility]20/[facility] 8:29 AM CDT Post-op Diagnoses: ? - Normal esophagus. ? - Erythematous mucosa in the antrum. Biopsied. ? - No gross lesions in the entire examined duodenum. ? - No overt source of abdominal pain identified. Narrative [employer] - 08/20/2023 8:29 AM CDT Gonda 2 [...] Ned Alegria M.D. GI PROCEDURE ORDERAB LES KEN SORENSEN documented in this encounter Visit Diagnoses Diagnosis [...] documented as of this encounter Care Teams Pricing Coordinator Relationship Specialty Start Date End Date Elsewhere, Pcp PCP - General Internal Medicine 10/14/22 documented as of this encounter
--- OUTSIDE RECORDS SUMMARY | 2023-12-31 10:44 | XMS_ITS | Encounter Summary ---
Author Name Unknown Organization [facility] Address [address] [place] [address] Care Team Providers Care Tape Calender Name Role Phone Elsewhere, Pcp Primary Care Provider Unavailabl e Encounter Details Date Type Department Care Team (Late st Contact Info) Description 08/20/2023 Clinical Communication Division of Gastroenterology in [place], [place] [address] [place] [phone] Margaret Baptiste M.D., M.S. [address] [place] [phone] Social History Tobacco Use Types Packs/Day Years [...] Answer Date Recorded PHQ-2 Score 0 04/25/2019 [facility] of Occupat ional Health - Occupational Stress [...] (e.g., MA, MS, Ana Lilia, MEd, MANAGER CONTRACT, GORDO) 02/15/2022 Sex and Gender Information Value [...] AM CDT Clinical Communication Virtual Review in [address] [address] 03/24/2024 9:20 AM CDT Lab Department of Infusion Therapy in [address] [phone] Ned Alegria M.D. [address] [place] [phone] 03/24/2024 11:00 AM CDT Appointment Department of Radiology, [facility], in [address] [phone] Ned Alegria M.D. [address] [place] [phone] 03/24/2024 3:30 PM CDT Office Visit Department of Oncology in [address] [phone] Ned Alegria M.D. [address] [place] [phone] documented as of this encounter Goals Goal Patient Goal Type Associated Problems Recent Progress Patient-Stated? Author Your pain? Symptom Management 9(11/20/2022 2:41 PM COREMAKER) No Fee-Girma Bush R.N., O.C.N. Note: 05/24/2021: Pain algorithm completed. MEDICAL [...] documented as of this encounter Care Teams Tape Calender Relationship Specialty Start Date End Date Elsewhere, Pcp PCP - General Internal Medicine 10/14/22 documented as of this encounter
--- OUTSIDE RECORDS SUMMARY | 2023-12-31 10:44 | XMS_ITS | Encounter Summary ---
Author Name Unknown Organization [facility] Address [address] [place] [address] Care Team Providers Care Reimbursement Consultant Name Role Phone Elsewhere, Pcp Primary Care Provider Unavailabl e Reason for Referral * Outpatient (Routine) - Closed Specialty Diagnoses / Procedures Referred By Contac t Referred To Contact Diagnoses Abdominal Pain Procedures FL Celiac Plexus/Splanchnic Block Injection NV INJ ANES AGENT CELIAC PLEX Sean Shen D.O. [address] [place] [phone] [facility] Referral ID Status Reason Start Date Expiration Date Visits Re quested Visits Authorized [id number] Closed 08/27/2023 08/26/2024 1 1 Reason for Visit * Outpatient (Routine) - Closed Specialty Diagnoses / Procedures Referred By Contac t Referred To Contact Diagnoses Abdominal Pain Procedures FL Celiac Plexus/Splanchnic Block Injection NV INJ ANES AGENT CELIAC PLEX Sean Shen D.O. 200 [place] [address] [facility] Referral ID Status Reason Start Date Expiration Date Visits Re quested Visits Authorized [id number] Closed 08/27/2023 08/26/2024 1 1 Encounter Details Date Type Department Care Team (Latest Contact Info) Description 09/03/2023 11:51 AM CDT - 09/03/2023 11:59 PM CDT Hospital Encounter Division of Pain Medicine in [place], [place] [address] [place] [phone] Sean Shen D.O. [address] [place] [address] Abdominal Pain Discharge Disposition: Home or Self [...] How often do you attend chur or nondenominational services? Never 02/03/2023 Do you [...] 04/25/2019 [facility] of Occupat ional [facility] - Occupational Stress Questionnaire Answer Date [...] degree (e.g., MA, MS, Ana Lilia, MEd, YOUTH ADVOCATE, GORDO) 02/15/2022 Sex and Gender Information Value [...] LORAZEPAM. 24 tablet 1 04/22/2023 09/26/2023 omega 5-bqc-sbj-fish oil 1,000 mg (120 mg-180 mg) capsule [...] AM CDT Clinical Communication Virtual Review in [place], [place] 200 [place] [address] 03/24/2024 9:20 AM CDT Lab Department of Infusion Therapy in [address] [phone] Ned Alegria M.D. [address] [place] [phone] 03/24/2024 11:00 AM CDT Appointment Department of Radiology, [facility], in [place], [place] [address] [place] [address] Ned Alegria M.D. [address] [place] [phone] 03/24/2024 3:30 PM CDT Office Visit Department of Oncology in [place], [place] [address] [place] [address] Ned Alegria M.D. [address] [place] [phone] documented as of this encounter Goals Goal Patient Goal Type Associated Problems Recent Progress Patient-Stated? Author Your pain? Symptom Management 9(11/20/2022 2:41 PM ART OBJECTS SALESPERSON) No Phyllis-Girma Bush RCandidoN., O.C.N. Note: 05/24/2021: [...] Care team members present 1. Sadie Guerrier L.PRancho. PROCEDURE SUMMARY Indications: Intractable abdominal pain Pre-procedural pain: 7/10 Post-procedural pain: 7/10 Site: advanced procedures Procedures: splanchnic/celiac plexus block [...] Time PHQ-9 Depression Total Score: 7 05/26/20 10:22 PM CDT documented as of this encounter Care Teams Reimbursement Consultant Relationship Specialty Start Date End Date Elsewhere, Pcp PCP - General Internal Medicine 10/14/22 documented as of this encounter
--- OUTSIDE RECORDS SUMMARY | 2023-12-31 10:44 | XMS_ITS | Encounter Summary ---
Author Name Unknown Organization [facility] Address [address] [place] [address] Care Team Providers Care Tablet Making Machine Operator Name Role Phone Elsewhere, Pcp [...] to Thigh FDG Giorgio Guzman M.D. 1999 [place] [phone] [facility] Referral ID Status Reason Start Date Expiration Date Visits Re quested Visits Authorized [id number] Closed 08/27/2023 08/26/2024 1 1 Reason for Visit * Reason Comments Treatment * Outpatient (Routine) - Closed Specialty Diagnoses / Procedures Referred By Halima owen Referred To Contact Oncology Ned Alegria M.D. [address] [place] [address] [facility] Referral ID Status Reason Start Date Expiration Date Visits Re quested Visits Authorized [id number] Closed 07/31/2023 07/30/2026 1 1 Encounter Details Date Type Department Care Team ([facility] st Contact Info) Description 08/25/2023 8:20 AM CDT Office Visit Department of Oncology in [place], [place] [address] [place] [phone] Giorgio Guzman M.D. 1999 [place] [phone] Malignant Neoplasm Of Rectum (HCC) (Primary Dx); [...] often do you attend chur ch or sabianist services? Never 02/03/2023 Do you belong to [...] 04/25/2019 [facility] of Occupat ional Health - Occupational [...] degree (e.g., MA, MS, Ana Lilia, MEd, FOUNDER AND CHIEF TECHNICAL OFFICER, GORDO) 02/15/2022 Sex and Gender Information [...] PHYSICIAN ELSEWHERE, PCP LOCAL ONCOLOGIST No care sample steamer to display PRIMARY GILA ONCOLOGIST Giorgio Guzman M.D. CHIEF COMPLAINT / [...] was positive for invasive adenocarcinoma. Came to [place] and seen by Gastroenterology. Underwent staging MRI [...] posterolateral thoracotomy and mediastinal lymphadenectomy. SURGEON(S) MAJOR DONOR COORDINATOR: Jazmine Bowden M.D. ASSISTING RESIDENT: Bandar Owusu [...] for metastasis 06/11/2021 - 06/13/2021 Radiation Therapy [phone] cGy in 3 fractions to right posterior [...] for metastasis 06/11/2021 - 06/13/2021 Radiation Therapy [phone] cGy in 3 fractions to right posterior [...] AM CDT Clinical Communication Virtual Review in [address] [address] [phone] 03/24/2024 9:20 AM CDT Lab Department of Infusion Therapy in [place], [place] [address] [place] [address] Ned Alegria M.D. [address] [place] [phone] 03/24/2024 11:00 AM CDT Appointment Department of Radiology, [facility], in [place], [place] [address] [place] [phone] Ned Alegria M.D. [address] [place] [phone] 03/24/2024 3:30 PM CDT Office Visit Department of Oncology in [place], [place] [address] [place] [phone] Ned Alegria M.D. [address] [place] [phone] documented as of this encounter Goals Goal Patient Goal Type Associated Problems Recent Progress Patient-Stated? Author Your pain? Symptom Management 9(11/20/2022 2:41 PM CARPENTRY SUPERVISOR) Raisa Ferguson-Girma Bush, RCandidoN., O.C.N. Note: 05/24/2021: Pain algorithm completed. [facility] 05/24/2021: Followup 06/07 via portal per patient [...] intravenous fludeoxyglucose F 18 injection RESIDENTIAL (FDG F-18),10.11 millicurie TECHNIQUE: ??F-18 FDG PET/CT [...] intravenous fludeoxyglucose F 18 injection RESIDENTIAL (FDG F-18),10.11 millicurie TECHNIQUE: F-18 FDG PET/CT [...] node has an SUV max of 7.3 ([id number]), previously 5.5. New FDG avid paraesophageal lymph [...] Incidental significant findings on low-dose, noncontrast CT: XcywmYwiw-S-Udis with the tip in RA/SVC. Gynecomastia. Right lower lobe with resection. Pathologic yxlnh3mh rib fracture. Atrophic right maxillary sinus with opacification. Prostatectomy with coronalanastomosis. IMPRESSION: FDG avid pulmonary, eduar, hepatic and osseous metastases, which haveoverall progressed from FDG PET/CT dated 08/05/2022. They have no significant change from the mostrecent CT dated 07/30/2023 allowing for the difference in modality. Giorgio SOMMERS NM PROCEDURES documented in this encounter Visit [...] documented as of this encounter Care Teams Tablet Making Machine Operator Relationship Specialty Start Date End Date Elsewhere, Pcp PCP - General Internal Medicine 10/14/22 documented as of this encounter
--- OUTSIDE RECORDS SUMMARY | 2023-12-31 10:44 | XMS_ITS | Encounter Summary ---
Author Name Unknown Organization [facility] Address [address] [place] [address] Care Team Providers Care Counseling Center Manager Name Role Phone Elsewhere, Pcp Primary Care Provider Unavailabl e Reason for Referral * Outpatient (Routine) - Closed Specialty Diagnoses / Procedures Referred By Contac t Referred To Contact Diagnoses Pain Epigastric Procedures US Gallbladder and or Biliary Ducts Margaret Baptiste M.D., M.S. [address] [place] [phone] [facility] Referral ID Status Reason Start Date Expiration Date Visits Re quested Visits Authorized [id number] Closed 08/20/2023 08/19/2024 1 1 Encounter Details Date Type Department Care Team (Late st Contact Info) Description 08/20/2023 Orders Only Division of Gastroenterology in [place], [place] [address] [place] [phone] Margaret Baptiste M.D., M.S. [address] [place] [phone] Pain Epigastric (Primary Dx) Social History Tobacco [...] How often do you attend chur or christian services? Never 02/03/2023 Do you [...] Answer Date Recorded PHQ-2 Score 0 04/25/2019 [facility] - [facility]ational [facility] Questionnaire [...] (e.g., MA, MS, Ana Lilia, MEd, METAL AND PLASTIC HEATER, GORDO) 02/15/2022 Sex and Gender Information Value Date Recorded Sex Assigned at Male 04/23/2018 1:23 PM CDT Gender Identity Male 04/23/2018 1:23 PM CDT Sexual Orientation Straight 04/23/2018 1: 23 PM CDT documented as of this encounter Plan of Treatment Upcoming Encounters Date Type Department Care Team (Latest Contact Info) Description 03/23/2024 7:30 AM CDT Clinical Communication Virtual Review in [place], [place] 200 [place] [address] 03/24/2024 9:20 AM CDT Lab Department of Infusion Therapy in [place], [place] [address] [place] [phone] Ned Alegria M.D. [address] [place] [phone] 03/24/2024 11:00 AM CDT Appointment Department of Radiology, [facility], in [address] [phone] Ned Alegria M.D. [address] [place] [phone] 03/24/2024 3:30 PM CDT Office Visit Department of Oncology in [address] [phone] Ned Alegria M.D. [address] [place] [phone] documented as of this encounter Goals Goal Patient Goal Type Associated Problems Recent Progress Patient-Stated? Author Your pain? Symptom Management 9(11/20/2022 2:41 PM MOBILITY ARCHITECT MANAGER) No Phyllis-Girma Bush, R.N., O.C.N. Note: 05/24/2021: Pain algorithm completed. [facility] 05/24/2021: Followup 06/07 via portal per patient [...] documented as of this encounter Care Teams Counseling Center Manager Relationship Specialty Start Date End Date Elsewhere, Pcp PCP - General Internal Medicine 10/14/22 documented as of this encounter
--- OUTSIDE RECORDS SUMMARY | 2023-12-31 10:44 | XMS_ITS | Encounter Summary ---
Author Name Unknown Organization [facility] Address [address] [place] [address] Care Team Providers Care Academic Support Center Director Name Role Phone Elsewhere, Pcp Primary Care Provider Unavailabl e Reason for Referral * Outpatient (Routine) - Closed Specialty Diagnoses / Procedures Referred By Contac t Referred To Contact Diagnoses Pain Epigastric Procedures US Gallbladder and or Biliary Ducts Margaret Baptiste M.D., M.S. [address] [place] [phone] [facility] Referral ID Status Reason Start Date Expiration Date Visits Re quested Visits Authorized [id number] Closed 08/20/2023 08/19/2024 1 1 Reason for Visit * Outpatient (Routine) - Closed Specialty Diagnoses / Procedures Referred By Contac t Referred To Contact Diagnoses Pain Epigastric Procedures US Gallbladder and or Biliary Ducts Margaret Baptiste M.D., M.S. [address] [place] [phone] [facility] Referral ID Status Reason Start Date Expiration Date Visits Re quested Visits Authorized [id number] Closed 08/20/2023 08/19/2024 1 1 Encounter Details Date Type Department Care Team (Late st Contact Info) Description 08/25/2023 10:13 AM CDT - 08/25/2023 11:59 PM CDT Hospital Encounter Department of Radiology, [facility], in [place], [place] [address] [place] [phone] Margaret Baptiste M.D., M.S. [address] [place] [address] Pain Epigastric Discharge Disposition: Home or Self [...] 02/03/2023 How often do you attend [facility] or yazidism services? Never 02/03/2023 Do you [...] Recorded PHQ-2 Score 0 04/25/2019 [facility] of Occupat ional [facility] [...] degree (e.g., MA, MS, Ana Lilia, MEd, ADDICTION SPECIALIST, GORDO) 02/15/2022 Sex and Gender Information [...] LORAZEPAM. 24 tablet 1 04/22/2023 09/26/2023 omega 2-mrk-xpz-fish oil 1,000 mg (120 mg-180 mg) capsule [...] AM CDT Clinical Communication Virtual Review in [place], [place] 200 [place] [address] 03/24/2024 9:20 AM CDT Lab Department of Infusion Therapy in [place], [place] [address] [place] [phone] eNd Alegria M.D. [address] [place] [phone] 03/24/2024 11:00 AM CDT Appointment Department of Radiology, [facility], in [place], [place] [address] [place] [phone] Ned Alegria M.D. [address] [place] [phone] 03/24/2024 3:30 PM CDT Office Visit Department of Oncology in [place], [place] [address] [place] [address] Ned Alegria M.D. [address] [place] [phone] documented as of this encounter Goals Goal Patient Goal Type Associated Problems Recent Progress Patient-Stated? Author Your pain? Symptom Management 9(11/20/2022 2:41 PM BOOK CUTTER) No Phyllis-Girma Bush, RRancho., O.C.N. Note: 05/24/2021: Pain algorithm completed. [facility] [...] documented as of this encounter Care Teams Academic Support Center Director Relationship Specialty Start Date End Date Elsewhere, Pcp PCP - General Internal Medicine 10/14/22 documented as of this encounter
--- OUTSIDE RECORDS SUMMARY | 2023-12-31 10:44 | XMS_ITS | Encounter Summary ---
Author Name Unknown Organization [facility] Address [address] [place] [address] Care Team Providers Care Public Health Dietitian Name Role Phone Elsewhere, Pcp Primary [...] to Thigh FDG Giorgio Fishman M.D. 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 [address] [place] [phone] [facility] Referral ID Status Reason Start Date Expiration Date Visits Re quested Visits Authorized [id number] Closed 08/27/2023 08/26/2024 1 1 Encounter Details Date Type Department Care Team (Latest Contact Info) Description 08/29/2023 10:37 AM CDT - 08/29/2023 11:59 PM CDT Hospital Encounter Department of Radiology, [facility], in [place], [place] [address] [place] [address] Giorgio Fishman M.D. [address] [place] [phone] Malignant Neoplasm Of Rectum (HCC); Secondary Malignant [...] Answer Date Recorded PHQ-2 Score 0 04/25/2019 [facility] of Occupat ional Health - [...] degree (e.g., MA, MS, Ana Lilia, MEd, BLOW TORCH OPERATOR, GORDO) 02/15/2022 Sex and Gender Information [...] LORAZEPAM. 24 tablet 1 04/22/2023 09/26/2023 omega 5-uyw-zbz-fish oil 1,000 mg (120 mg-180 mg) capsule Take 2 capsules by mouth. 0 05/16/2022 12/23/2023 ondansetron ODT (ZOFRAN-ODT) 8 mg disintegrating tablet every 8 (eight) hours as needed for nausea. See attached for detailed directions. 0 12/03/2022 09/26/2023 pantoprazole (PROTONIX) 40 mg EC tabletIndications:Zuleyka nanlexie Neoplasm Of Rectum (HCC) Take 1 tablet [...] AM CDT Clinical Communication Virtual Review in [place], [place] 200 [place] [address] 03/24/2024 9:20 AM CDT Lab Department of Infusion Therapy in [address] [phone] Ned Alegria M.D. [address] [place] [phone] 03/24/2024 11:00 AM CDT Appointment Department of Radiology, [facility], in [place], [place] [address] [place] [address] Ned Alegria M.D. [address] [place] [phone] 03/24/2024 3:30 PM CDT Office Visit Department of Oncology in [place], [place] [address] [place] [address] Ned Alegria M.D. [address] [place] [phone] documented as of this encounter Goals Goal Patient Goal Type Associated Problems Recent Progress Patient-Stated? Author Your pain? Symptom Management 9(11/20/2022 2:41 PM YARD ATTENDANT) No Phyllis-Girma Bush RCandidoN., O.C.N. Note: 05/24/2021: [...] intravenous fludeoxyglucose F 18 injection INTERMEDIATE (FDG F-18),10.11 millicurie TECHNIQUE: ??F-18 FDG PET/CT [...] intravenous fludeoxyglucose F 18 injection INTERMEDIATE (FDG F-18),10.11 millicurie TECHNIQUE: F-18 FDG PET/CT [...] node has an SUV max of 7.3 ([id number]), previously 5.5. New FDG avid paraesophageal lymph [...] Incidental significant findings on low-dose, noncontrast CT: IogdfNqfx-P-Tryi with the tip in RA/SVC. Gynecomastia. Right lower lobe with resection. Pathologic dxzdh9dh rib fracture. Atrophic right maxillary sinus with [...] Dose Rate Site fludeoxyglucose F 18 injection INTERMEDIATE (FDG F-18) 4.5-16.5 millicurie, intravenous, Once, On [...] documented as of this encounter Care Teams Public Health Dietitian Relationship Specialty Start Date End Date Elsewhere, Pcp PCP - General Internal Medicine 10/14/22 documented as of this encounter
--- OUTSIDE RECORDS SUMMARY | 2023-12-31 10:44 | XMS_ITS | Encounter Summary ---
Author Name Unknown Organization [facility] Address [address] [place] [address] Care Team Providers Care Warehouse Receiving Supervisor Name Role Phone Elsewhere, Pcp Primary Care Provider Unavailabl e Reason for Visit * Outpatient (Routine) - Closed Specialty Diagnoses / Procedures Referred By Halima owen Referred To Contact Pain Medicine Diagnoses Sean Clayton D.O. [address] [place] [phone] [facility] Referral ID Status Reason Start Date Expiration Date Visits Re quested Visits Authorized [id number] Closed 08/27/2023 08/26/2026 1 1 Encounter Details Date Type Department Care Team (Late st Contact Info) Description 09/03/2023 9:30 AM CDT Office Visit Division of Pain Medicine in [place], [place] [address] [place] [phone] Yassine Parekh M.D. [address] [place] [phone] Pain Low Back Unspecified (Primary Dx); Abdominal [...] Answer Date Recorded PHQ-2 Score 0 04/25/2019 [facility] of Occupat ional Health - Occupational [...] degree (e.g., MA, MS, Ana Lilia, MEd, SERVICE PROVIDER, GORDO) 02/15/2022 Sex and Gender Information Value [...] spent a total of 25 minutes in vrj-qiyt-lq-face time performing a review of the recordand/or [...] AM CDT Clinical Communication Virtual Review in [address] [address] 03/24/2024 9:20 AM CDT Lab Department of Infusion Therapy in [address] [phone] Ned Alegria M.D. [address] [place] [phone] 03/24/2024 11:00 AM CDT Appointment Department of Radiology, [facility], in [address] [phone] Ned Alegria M.D. [address] [place] [phone] 03/24/2024 3:30 PM CDT Office Visit Department of Oncology in [address] [phone] Ned Alegria M.D. [address] [place] [phone] documented as of this encounter Goals Goal Patient Goal Type Associated Problems Recent Progress Patient-Stated? Author Your pain? Symptom Management 9(11/20/2022 2:41 PM FEED PREPARATION OPERATOR) No Fee-Girma Bush RRancho., O.C.N. Note: 05/24/2021: Pain algorithm completed. [facility] [...] documented as of this encounter Care Teams Warehouse Receiving Supervisor Relationship Specialty Start Date End Date Elsewhere, Pcp PCP - General Internal Medicine 10/14/22 documented as of this encounter
--- OUTSIDE RECORDS SUMMARY | 2023-12-31 10:45 | XMS_ITS | Encounter Summary ---
Author Name Unknown Organization [facility] Address [address] [place] [address] Care Team Providers Care Filing Clerk Name Role Phone Elsewhere, Pcp Primary Care Provider Unavailabl e Encounter Details Date Type Department Care Team (Latest Contact Info) Description 07/30/2023 4:35 PM CDT Ancillary Procedure Department of Radiology in [place], [place] [address] [place] [address] Ned Alegria M.D. [address] [place] [phone] Malignant Neoplasm Of Rectum (HCC); Secondary Malignant [...] degree (e.g., MA, MS, Ana Lilia, MEd, HAIRSPRING I INSPECTOR, GORDO) 02/15/2022 Sex and Gender Information Value Date Recorded Sex Assigned at Male 04/23/2018 1:23 PM CDT Gender Identity Male 04/23/2018 1:23 PM CDT Sexual Orientation Straight 04/23/2018 1: 23 PM CDT documented as of this encounter Plan of Treatment Upcoming Encounters Date Type Department Care Team (Latest Contact Info) Description 03/23/2024 7:30 AM CDT Clinical Communication Virtual Review in [place], [place] 200 [place] [address] 03/24/2024 9:20 AM CDT Lab Department of Infusion Therapy in [place], [place] [address] [place] [address] Ned Alegria M.D. [address] [place] [phone] 03/24/2024 11:00 AM CDT Appointment Department of Radiology, [facility], in [place], [place] [address] [place] [address] Ned Alegria M.D. [address] [place] [phone] 03/24/2024 3:30 PM CDT Office Visit Department of Oncology in [place], [place] [address] [place] [address] Ned Alegria M.D. [address] [place] [phone] documented as of this encounter Goals Goal Patient Goal Type Associated Problems Recent Progress Patient-Stated? Author Your pain? Symptom Management 9(11/20/2022 2:41 PM CAR FRAMER) No Fee-Girma Bush, R.N., O.C.N. Note: 05/24/2021: [...] documented as of this encounter Care Teams Filing Clerk Relationship Specialty Start Date End Date Elsewhere, Pcp PCP - General Internal Medicine 10/14/22 documented as of this encounter
--- OUTSIDE RECORDS SUMMARY | 2023-12-31 10:45 | XMS_ITS | Encounter Summary ---
Author Name Unknown Organization [facility] Address [address] [place] [address] Care Team Providers Care Pipeline Technician Name Role Phone Elsewhere, Pcp Primary Care Provider Unavailabl e Reason for Referral * Outpatient (Routine) - Closed Specialty Diagnoses / Procedures Referred By Contac t Referred To Contact Oncology Ned Alegria M.D. [address] [place] [address] [facility] Referral ID Status Reason Start Date Expiration Date Visits Re quested Visits Authorized [id number] Closed 07/31/2023 07/30/2026 1 1 Scheduling Instructions PITOT * Outpatient (Routine) - Closed Specialty Diagnoses / Procedures Referred By Contact Referred To Contact Gastroenterology and Hepatology Diagnoses Malignant Neoplasm Of Rectum (HCC) Ned Alegria M.D. [address] [place] [address] [facility] Referral ID Status Reason Start Date Expiration Date V isits Requested Visits Authorized [id number] Closed Specialty Services Required 07/31/2023 07/30/2024 1 1 Scheduling Instructions GIH consult should be scheduled after all testing * Outpatient (Routine) - Closed Specialty Diagnoses / Procedures Referred By Contac t Referred To Contact Diagnoses Malignant Neoplasm Of Rectum (HCC) Procedures EGD (EsophagealGastroDuodenoscopy ) Ned Alegria M.D. 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 [address] [place] [address] [facility] Referral ID Status Reason Start Date Expiration Date Visits Re quested Visits Authorized [id number] Closed 05/08/2023 05/07/2026 1 1 Encounter Details Date Type Department Care Team (Late st Contact Info) Description 07/31/2023 9:50 AM CDT Office Visit Department of Oncology in [place], [place] [address] [place] [phone] Ned Alegria M.D. [address] [place] [phone] Secondary Malignant Neoplasm Of Lung Laterality Unknown [...] How often do you attend chur or sikh services? Never 02/03/2023 Do you [...] Answer Date Recorded PHQ-2 Score 0 04/25/2019 [facility] of Occupat ional Health - Occupational Stress [...] degree (e.g., MA, MS, Ana Lilia, MEd, HEALTH IT SPECIALIST, GORDO) 02/15/2022 Sex and Gender Information Value Date Recorded Sex Assigned at Male 04/23/2018 1:23 PM CDT Gender Identity Male 04/23/2018 1:23 PM CDT Sexual Orientation Straight 04/23/2018 1: 23 PM CDT documented as of this encounter Progress Notes * Ned Alegria M.D. - 07/31/2023 9:50 AM CDT SUBJECTIVE PRIMARY CARE PHYSICIAN ELSEWHERE, PCP LOCAL ONCOLOGIST No care rehabilitation team lead to display PRIMARY [place] ONCOLOGIST Giorgio Fishman M.D. CHIEF COMPLAINT / REASON FOR VISIT Luis Tabares is a 43 y.o. male from [facility] with metastatic rectal cancer. HISTORY OF PRESENT ILLNESS Oncology History He was initially diagnosed in April 2018 with locally advanced rectal cancer that was treated with long course radiation (28 fraction, 64.4 Gy) with capecitabine, followed by laparoscopic proctectomy with colo anal anastomosis ([id number]), which was then followed by adjuvant FLOX [...] 07/14, [place] [address]. On 07/18/2023, treatment was held again due to platelets [address]. At that point he was noted to [...] pelvis with IV contrast at [facility] 1. Numerous progressive pulmonary nodules consistent [...] AM CDT Clinical Communication Virtual Review in [address] [address] 03/24/2024 9:20 AM CDT Lab Department of Infusion Therapy in [address] [address] Ned Alegria M.D. [address] [place] [phone] 03/24/2024 11:00 AM CDT Appointment Department of Radiology, [facility], in [address] [address] Ned Alegria M.D. [address] [place] [phone] 03/24/2024 3:30 PM CDT Office Visit Department of Oncology in [address] [address] Ned Alegria M.D. [address] [place] [phone] Scheduled Referrals Name Type Priority Associated Diagnoses [...] Your pain? Symptom Management 9(11/20/2022 2:41 PM SPECIAL EDUCATOR) Raisa Ferguson-Girma Bush R.N., O.C.N. Note: 05/24/2021: [...] documented as of this encounter Care Teams Pipeline Technician Relationship Specialty Start Date End Date Elsewhere, Pcp PCP - General Internal Medicine 10/14/22 documented as of this encounter
--- OUTSIDE RECORDS SUMMARY | 2023-12-31 10:45 | XMS_ITS | Encounter Summary ---
Author Name Unknown Organization [facility] Address [address] [place] [address] Care Team Providers Care Osteopathic Medicine Teacher Name Role Phone Elsewhere, Pcp Primary Care Provider Unavailabl e Reason for Visit * Reason Comments Med Refill Gabapentin Encounter Details Date Type Department Care Team (Late st Contact Info) Description 07/30/2023 Refill Department of Oncology in [place], [place] [address] [place] [address] Giorgio Fishman M.D. [address] [place] [address] Med Refill ( Gabapentin/) Social History Tobacco [...] degree (e.g., MA, MS, Ana Lilia, MEd, RIGHT OF WAY CUTTER, GORDO) 02/15/2022 Sex and Gender Information Value Date Recorded Sex Assigned at Male 04/23/2018 1:23 PM CDT Gender Identity Male 04/23/2018 1:23 PM CDT Sexual Orientation Straight 04/23/2018 1: 23 PM CDT documented as of this encounter Plan of Treatment Upcoming Encounters Date Type Department Care Team (Latest Contact Info) Description 03/23/2024 7:30 AM CDT Clinical Communication Virtual Review in [place], [place] [address] [place] [address] 03/24/2024 9:20 AM CDT Lab Department of Infusion Therapy in [place], [place] [address] [place] [address] Ned Alegria M.D. [address] [place] [address] 03/24/2024 11:00 AM CDT Appointment Department of Radiology, [facility], in [place], [place] [address] [place] [address] Ned Alegria M.D. [address] [place] [phone] 03/24/2024 3:30 PM CDT Office Visit Department of Oncology in [place], [place] [address] [place] [address] Ned Alegria M.D. [address] [place] [phone] documented as of this encounter Goals Goal Patient Goal Type Associated Problems Recent Progress Patient-Stated? Author Your pain? Symptom Management 9(11/20/2022 2:41 PM FINANCIAL AUDITOR) No Fee-Girma Bush RCandidoN., O.C.N. Note: 05/24/2021: [...] documented as of this encounter Care Teams Osteopathic Medicine Teacher Relationship Specialty Start Date End Date Elsewhere, Pcp PCP - General Internal Medicine 10/14/22 documented as of this encounter
--- OUTSIDE RECORDS SUMMARY | 2023-12-31 10:45 | XMS_ITS | Encounter Summary ---
Author Name Unknown Organization [facility] Address [address] [place] [address] Care Team Providers Care Tractor Driver Teamster Name Role Phone Elsewhere, Pcp Primary Care Provider Unavailabl e Reason for Referral * Outpatient (Routine) - Closed Specialty Diagnoses / Procedures Referred By Maddyac t Referred To Contact Diagnoses Pain Chest Wall Procedures FL Thoracic Paravertebral Block Injection Right WA PARAVERTEB BLOCK THOR SNGL WA PARAVERTEB BLOCK THOR 2ND & ADD Sean Shen D.O. [address] [place] [address] [facility] Referral ID Status Reason Start Date Expiration Date Visits Re quested Visits Authorized [id number] Closed 06/20/2023 06/19/2024 1 1 Reason for Visit * Outpatient (Routine) - Closed Specialty Diagnoses / Procedures Referred By Contac t Referred To Contact Diagnoses Pain Chest Wall Procedures FL Thoracic Paravertebral Block Injection Right WA PARAVERTEB BLOCK THOR SNGL WA PARAVERTEB BLOCK THOR 2ND & ADD Sean Shen D.O. [address] [place] [address] [facility] Referral ID Status Reason Start Date Expiration Date Visits Re quested Visits Authorized [id number] Closed 06/20/2023 06/19/2024 1 1 Encounter Details Date Type Department Care Team (Latest Contact Info) Description 07/23/2023 2:24 PM CDT - 07/23/2023 11:59 PM CDT Hospital Encounter Division of Pain Medicine in [place], [place] [address] [place] [address] Sean Shen D.O. [address] [place] [address] Pain Chest Wall Discharge Disposition: Home or [...] degree (e.g., MA, MS, Ana Lilia, MEd, SEAFOOD TECHNOLOGY SPECIALIST, GORDO) 02/15/2022 Sex and Gender Information [...] LORAZEPAM. 24 tablet 1 04/22/2023 09/26/2023 omega 5-vfc-ixx-fish oil 1,000 mg (120 mg-180 mg) capsule [...] AM CDT Clinical Communication Virtual Review in [address] [address] 03/24/2024 9:20 AM CDT Lab Department of Infusion Therapy in [address] [phone] Ned Alegria M.D. [address] [place] [phone] 03/24/2024 11:00 AM CDT Appointment Department of Radiology, [facility], in [address] [address] Ned Alegria M.D. [address] [place] [phone] 03/24/2024 3:30 PM CDT Office Visit Department of Oncology in [address] [phone] Ned Alegria M.D. [address] [place] [phone] documented as of this encounter Goals Goal Patient Goal Type Associated Problems Recent Progress Patient-Stated? Author Your pain? Symptom Management 9(11/20/2022 2:41 PM STUCCO PLASTERER) No Fee-Girma Bush RCandidoN., O.C.N. Note: 05/24/2021: [...] Weston M.D. Authorized by: Sean Shen D.O. ?? Care team members present 1. Sadie Guerrier L.P.N. PROCEDURE SUMMARY Indications: Intractable pain Pre-procedural pain: 610 Post-procedural pain: 6/10 Site: thoracic Thoracic: paravertebral [...] documented as of this encounter Care Teams Tractor Driver Teamster Relationship Specialty Start Date End Date Elsewhere, Pcp PCP - General Internal Medicine 10/14/22 documented as of this encounter
--- OUTSIDE RECORDS SUMMARY | 2023-12-31 10:45 | XMS_ITS | Encounter Summary ---
Author Name Unknown Organization [facility] Address [address] [place] [address] Care Team Providers Care Leaf Coverer Name Role Phone Elsewhere, Pcp Primary Care Provider Unavailabl e Reason for Referral * Outpatient (Routine) - Closed Specialty Diagnoses / Procedures Referred By Contac t Referred To Contact Diagnoses Sacroiliitis (HCC) Procedures FL Sacroiliac Joint Injection Left Sean Shen D.O. [address] [place] [phone] [facility] Referral ID Status Reason Start Date Expiration Date Visits Re quested Visits Authorized [id number] Closed 07/25/2023 07/24/2024 1 1 Reason for Visit * Outpatient (Routine) - Closed Specialty Diagnoses / Procedures Referred By Contac t Referred To Contact Diagnoses Sacroiliitis (HCC) Procedures FL Sacroiliac Joint Injection Left Sean Shen D.O. [address] [place] [address] [facility] Referral ID Status Reason Start Date Expiration Date Visits Re quested Visits Authorized [id number] Closed 07/25/2023 07/24/2024 1 1 Encounter Details Date Type Department Care Team (Latest Contact Info) Description 07/30/2023 7:03 AM CDT - 07/30/2023 12:22 PM CDT Hospital Encounter Division of Pain Medicine in [place], [place] [address] [place] [phone] Sean Shen D.O. 200 [place] [address] Sacroiliitis (HCC) Discharge Disposition: Home or Self [...] 04/25/2019 [facility] of Occupat ional [facility] - Occupational Stress Questionnaire Answer Date [...] degree (e.g., MA, MS, Ana Lilia, MEd, THREAD GRINDER, GORDO) 02/15/2022 Sex and Gender Information Value [...] LORAZEPAM. 24 tablet 1 04/22/2023 09/26/2023 omega 9-olv-rzs-fish oil 1,000 mg (120 mg-180 mg) capsule [...] AM CDT Clinical Communication Virtual Review in [address] [address] 03/24/2024 9:20 AM CDT Lab Department of Infusion Therapy in [address] [address] Ned Alegria M.D. [address] [place] [phone] 03/24/2024 11:00 AM CDT Appointment Department of Radiology, [facility], in [address] [address] Ned Alegria M.D. [address] [place] [phone] 03/24/2024 3:30 PM CDT Office Visit Department of Oncology in [address] [address] Ned Alegria M.D. [address] [place] [phone] documented as of this encounter Goals Goal Patient Goal Type Associated Problems Recent Progress Patient-Stated? Author Your pain? Symptom Management 9(11/20/2022 2:41 PM MEDICAL DELIVERY DRIVER) No Fee-Girma Bush R.N., O.C.N. Note: 05/24/2021: Pain algorithm completed. [facility] 05/24/2021: Followup 06/07 [...] documented as of this encounter Care Teams Leaf Coverer Relationship Specialty Start Date End Date Elsewhere, Pcp PCP - General Internal Medicine 10/14/22 documented as of this encounter
--- OUTSIDE RECORDS SUMMARY | 2023-12-31 10:45 | XMS_ITS | Encounter Summary ---
Author Name Unknown Organization [facility] Address [address] [place] [address] Care Team Providers Care Private Household Worker Name Role Phone Elsewhere, Pcp Primary Care Provider Unavailabl e Encounter Details Date Type Department Care Team (Latest Contact Info) Description 07/30/2023 4:40 PM CDT Ancillary Procedure Department of Radiology in [place], [place] [address] [place] [address] Ned Alegria M.D. [address] [place] [address] Malignant Neoplasm Of Rectum (HCC); Secondary Malignant [...] degree (e.g., MA, MS, Ana Lilia, MEd, PROPERTY UTILIZATION MANAGER, GORDO) 02/15/2022 Sex and Gender Information Value Date Recorded Sex Assigned at Male 04/23/2018 1:23 PM CDT Gender Identity Male 04/23/2018 1:23 PM CDT Sexual Orientation Straight 04/23/2018 1: 23 PM CDT documented as of this encounter Plan of Treatment Upcoming Encounters Date Type Department Care Team (Latest Contact Info) Description 03/23/2024 7:30 AM CDT Clinical Communication Virtual Review in [place], [place] [address] [place] [address] 03/24/2024 9:20 AM CDT Lab Department of Infusion Therapy in [place], [place] [address] [place] [address] Ned Alegria M.D. [address] [place] [address] 03/24/2024 11:00 AM CDT Appointment Department of Radiology, [facility], in [place], [place] [address] [place] [address] Ned Alegria M.D. [address] [place] [phone] 03/24/2024 3:30 PM CDT Office Visit Department of Oncology in [place], [place] [address] [place] [address] Ned Alegria M.D. [address] [place] [phone] documented as of this encounter Goals Goal Patient Goal Type Associated Problems Recent Progress Patient-Stated? Author Your pain? Symptom Management 9(11/20/2022 2:41 PM ACCOUNTING/FINANCE TUTOR) No Fee-Girma Bush, R.N., O.C.N. Note: 05/24/2021: [...] documented as of this encounter Care Teams Private Household Worker Relationship Specialty Start Date End Date Elsewhere, Pcp PCP - General Internal Medicine 10/14/22 documented as of this encounter
--- OUTSIDE RECORDS SUMMARY | 2023-12-31 10:45 | XMS_ITS | Encounter Summary ---
Author Name Unknown Organization [facility] Address [address] [place] [address] Care Team Providers Care Pound Attendant Name Role Phone Elsewhere, Pcp Primary Care Provider Unavailabl e Reason for Visit * Outpatient (Routine) - Closed Specialty Diagnoses / Procedures Referred By Contact Referred To Contact Gastroenterology and Hepatology Diagnoses Malignant Neoplasm Of Rectum (HCC) Ned Alegria M.D. [address] [place] [phone] [facility] Referral ID Status Reason Start Date Expiration Date V isits Requested Visits Authorized [id number] Closed Specialty Services Required 07/31/2023 07/30/2024 1 1 Encounter Details Date Type Department Care Team (Latest Contact Info) Description 08/14/2023 3:20 PM CDT Comprehensive Visit Division of Gastroenterology in [place], [place] [address] [place] [phone] Margaret Baptiste M.D., M.S. [address] [place] [phone] Pain Epigastric (Primary Dx); Malignant Neoplasm Of [...] How often do you attend chur or restorationist services? Never 02/03/2023 Do you [...] PHQ-2 Score 0 04/25/2019 [facility] of Occupat ional Health [...] degree (e.g., MA, MS, Ana Lilia, MEd, RELOCATION SPECIALIST, GORDO) 02/15/2022 Sex and Gender Information Value Date Recorded Sex Assigned at Male 04/23/2018 1:23 PM CDT Gender Identity Male 04/23/2018 1:23 PM CDT Sexual Orientation Straight 04/23/2018 1: 23 PM CDT documented as of this encounter Consult Notes * Margaret Baptiste M.D., M.S. - 08/14/2023 3:20 PM CDT SUBJECTIVE REFERRING PROVIDER: Ned Alegria M.D. [address] [place] [phone] CHIEF COMPLAINT / REASON FOR CONSULT Severe [...] I spent a total of 20 minutes [id number] with patient. PATIENT EDUCATION: Ready to learn, no apparent learning barriers were identified; learning preferences include listening. Explained diagnosis and treatment plan; patient expressed understanding of the content. documented in this encounter Plan of Treatment Upcoming Encounters Date Type Department Care Team (Latest Contact Info) Description 03/23/2024 7:30 AM CDT Clinical Communication Virtual Review in [place], [place] 200 [place] [address] 03/24/2024 9:20 AM CDT Lab Department of Infusion Therapy in [address] [phone] Ned Alegria M.D. [address] [place] [phone] 03/24/2024 11:00 AM CDT Appointment Department of Radiology, [facility], in [address] [address] Ned Alegria M.D. [address] [place] [phone] 03/24/2024 3:30 PM CDT Office Visit Department of Oncology in [address] [phone] Ned Alegria M.D. [address] [place] [phone] documented as of this encounter Goals Goal Patient Goal Type Associated Problems Recent Progress Patient-Stated? Author Your pain? Symptom Management 9(11/20/2022 2:41 PM ZONING ENGINEER) No Fee-Girma Bush, RCandidoN., O.C.N. Note: [...] documented as of this encounter Care Teams Pound Attendant Relationship Specialty Start Date End Date Elsewhere, Pcp PCP - General Internal Medicine 10/14/22 documented as of this encounter
--- OUTSIDE RECORDS SUMMARY | 2023-12-31 10:45 | XMS_ITS | Encounter Summary ---
Author Name Unknown Organization [facility] Address [address] [place] [address] Care Team Providers Care Remelter Name Role Phone Elsewhere, Pcp Primary Care Provider Unavailabl e Reason for Referral * MRI/CAT/PET Scan (Routine) - Closed Specialty Diagnoses / Procedures Referred By Contac t Referred To Contact Radiology Diagnoses Pain Low Back Unspecified Procedures MR Lumbar Spine without IV Contrast Sean Shen D.O. [address] [place] [phone] [facility] Referral ID Status Reason Start Date Expiration Date Visits Re quested Visits Authorized [id number] Closed 06/20/2023 06/19/2024 1 1 Reason for Visit * MRI/CAT/PET Scan (Routine) - Closed Specialty Diagnoses / Procedures Referred By Contac t Referred To Contact Radiology Diagnoses Pain Low Back Unspecified Procedures MR Lumbar Spine without IV Contrast Sean Shen D.O. [address] [place] [phone] [facility] Referral ID Status Reason Start Date Expiration Date Visits Re quested Visits Authorized [id number] Closed 06/20/2023 06/19/2024 1 1 Encounter Details Date Type Department Care Team (Latest Contact Info) Description 07/23/2023 8:23 AM CDT - 07/23/2023 2:23 PM CDT Hospital Encounter Department of Radiology, [facility] in [place], [place] [address] [place] [phone] Sean Shen D.O. [address] [place] [address] Pain Low Back Unspecified Discharge Disposition: Home [...] How often do you attend [facility] or moravian services? Never 02/03/2023 Do [...] Answer Date Recorded PHQ-2 Score 0 04/25/2019 [facility] of Occupat ional Health - Occupational [...] degree (e.g., MA, MS, Ana Lilia, MEd, CERTIFIED COURT/MEDICAL INTERPRETER, GORDO) 02/15/2022 Sex and Gender Information Value [...] LORAZEPAM. 24 tablet 1 04/22/2023 09/26/2023 omega 0-wdc-jkx-fish oil 1,000 mg (120 mg-180 mg) capsule [...] AM CDT Clinical Communication Virtual Review in [address] [address] 03/24/2024 9:20 AM CDT Lab Department of Infusion Therapy in [place], [place] [address] [place] [phone] Ned Alegria M.D. [address] [place] [phone] 03/24/2024 11:00 AM CDT Appointment Department of Radiology, [facility], in [address] [phone] Ned Alegria M.D. [address] [place] [phone] 03/24/2024 3:30 PM CDT Office Visit Department of Oncology in [place], [place] [address] [place] [address] Ned Alegria M.D. [address] [place] [address] documented as of this encounter Goals Goal Patient Goal Type Associated Problems Recent Progress Patient-Stated? Author Your pain? Symptom Management 9(11/20/2022 2:41 PM ERP ENGINEER) No Fee-Girma Bush, R.N., O.C.N. Note: 05/24/2021: Pain algorithm completed. [facility] 05/24/2021: Followup 06/07 via [...] Region Laterality Modality Lumbar Spine, Neuroradiology RST LOS, Neuroradiology ARZ LOS, Neuroradiology FLA LOS N/A Magnetic Resonance 07/23/2023 10:0 8 AM [...] the prior CT scan, there are 5 zwn-xbb-afasgoa lumbar-type vertebral bodies present with L5-S1 designated [...] the prior CT scan, there are 5 swq-jwh-etlhhyhfhoiao-type vertebral bodies present with L5-S1 designated via [...] in the lumbar spine most prominent at [id number] mild spinal canal stenosis and moderate bilateral neural foraminal stenosis are present. Sean SOMMERS MRI PROCEDURES documented in this encounter Visit Diagnoses Diagnosis Pain Low Back Unspecified documented in this encounter Additional Health Concerns Assessment Noted Time PHQ-9 Depression Total Score: 7 05/26/20 18 10:22 PM CDT documented as of this encounter Care Teams Remelter Relationship Specialty Start Date End Date Elsewhere, Pcp PCP - General Internal Medicine 10/14/22 documented as of this encounter
--- OUTSIDE RECORDS SUMMARY | 2023-12-31 10:45 | XMS_ITS | Encounter Summary ---
Author Name Unknown Organization [facility] Address [address] [place] [address] Care Team Providers Care River Boat Captain Name Role Phone Elsewhere, Pcp Primary Care [...] with IV Contrast Giorgio Fishman M.D. [address] [place] [address] [facility] [place] Referral ID Status Reason Start Date Expiration Date Visits Re quested Visits Authorized [id number] Closed 05/08/2023 05/07/2024 1 1 Reason for [...] with IV Contrast Giorgio Fishman M.D. [address] [place] [address] [facility] [place] Referral ID Status Reason Start Date Expiration Date Visits Re quested Visits Authorized [id number] Closed 05/08/2023 05/07/2024 1 1 Encounter Details Date Type Department Care Team (Latest Contact Info) Description 07/30/2023 12:23 PM CDT - 07/30/2023 11:59 PM CDT Hospital Encounter Department of Radiology, [facility], in [place], [place] [address] [place] [address] Giorgio Fishman M.D. [address] [place] [address] Secondary Malignant Neoplasm Of Lung Laterality Unknown [...] Answer Date Recorded PHQ-2 Score 0 04/25/2019 [facility] of Occupat ional Health - Occupational Stress [...] (e.g., MA, MS, Ana Lilia, MEd, MOLD CARPENTER, GORDO) 02/15/2022 Sex and Gender Information Value [...] Body Mass Index 29.13 10/29/2022 1:45 PM PUMP INSTALLATION AND SERVICER documented in this encounter Medications at Time [...] LORAZEPAM. 24 tablet 1 04/22/2023 09/26/2023 omega 6-crq-xfe-fish oil 1,000 mg (120 mg-180 mg) capsule [...] AM CDT Clinical Communication Virtual Review in [place], [place] 200 [place] [address] 03/24/2024 9:20 AM CDT Lab Department of Infusion Therapy in [place], [place] [address] [place] [phone] Ned Alegria M.D. [address] [place] [phone] 03/24/2024 11:00 AM CDT Appointment Department of Radiology, [facility], in [address] [phone] Ned Alegria M.D. [address] [place] [phone] 03/24/2024 3:30 PM CDT Office Visit Department of Oncology in [address] [phone] Ned Alegria M.D. [address] [place] [phone] documented as of this encounter Goals Goal Patient Goal Type Associated Problems Recent Progress Patient-Stated? Author Your pain? Symptom Management 9(11/20/2022 2:41 PM PUMP INSTALLATION AND SERVICER) No Fee-Girma Bush, R.N., O.C.N. Note: 05/24/2021: [...] CONTRAST COMPARISON: Outside CT 07/28/2023. 08/05/2022 PET/CT. [facility] CT 2022. FINDINGS: This examination was performed in conjunction with a CT of the abdomen, which will be reported separately. For description of findings below the diaphragm please see separate report. No definite change between today's CT at an outside CT 07/28/2023. Comments below are compared to prior [facility] CT of 05/06/2023. Many progressive presumed [...] CONTRAST COMPARISON: Outside CT 07/28/2023. 08/05/2022 PET/CT. [facility] [id number]. FINDINGS: This examination was performed in conjunction with a CT of the abdomen,which will be reported separately. For description of findings below the diaphragm please seeseparate report. No definite change between today's CT at an outside CT 07/28/2023.Comments below are compared to prior [facility] CT of 05/06/2023. Many progressive presumed [...] progression of a pleural or subpleural nodule [id number] x 10 mm adjacent to the post [...] Progressive pleural/chest wall presumed metastasis involving the [id number] rib. 3. Stable infiltrative process in the mediastinum may represent treatedlymph node disease. Giorgio Fishman M.D. [facility] CT PROCEDURES * CT Abdomen Pelvis with [...] CONTRAST COMPARISON: ??Outside abdomen/pelvis CT 07/26/2023 and [place] abdomen/pelvis CT 05/06/2023 . FINDINGS: ??No appreciable [...] CONTRAST COMPARISON: Outside abdomen/pelvis CT 07/26/2023 and [place] abdomen/pelvis CT05/06/2023 . FINDINGS: No appreciable changes [...] lymph nodes since 05/06/2023. Giorgio Fishman M.D. [facility] CT PROCEDURES documented in this encounter Visit [...] documented as of this encounter Care Teams River Boat Captain Relationship Specialty Start Date End Date Elsewhere, Pcp PCP - General Internal Medicine 10/14/22 documented as of this encounter
--- OUTSIDE RECORDS SUMMARY | 2023-12-31 10:45 | XMS_ITS | Encounter Summary ---
Author Name Unknown Organization [facility] Address [address] [place] [address] Care Team Providers Care Leach Runner Name Role Phone Elsewhere, Pcp Primary Care Provider Unavailabl e Encounter Details Date Type Department Care Team (Late st Contact Info) Description 07/30/2023 9:10 AM CDT Lab Department of Infusion Therapy in [place], [place] [address] [place] [address] Giorgio Fishman M.D. [address] [place] [address] Secondary Malignant Neoplasm Lymph Node Multiple Site [...] Answer Date Recorded PHQ-2 Score 0 04/25/2019 [facility] of Occupat ional Health - [...] degree (e.g., MA, MS, Ana Lilia, MEd, IT SYSTEMS ADMINISTRATOR, GORDO) 02/15/2022 Sex and Gender Information Value Date Recorded Sex Assigned at Male 04/23/2018 1:23 PM CDT Gender Identity Male 04/23/2018 1:23 PM CDT Sexual Orientation Straight 04/23/2018 1: 23 PM CDT documented as of this encounter Plan of Treatment Upcoming Encounters Date Type Department Care Team (Latest Contact Info) Description 03/23/2024 7:30 AM CDT Clinical Communication Virtual Review in [place], [place] [address] [place], [place] [phone] 03/24/2024 9:20 AM CDT Lab Department of Infusion Therapy in [place], [place] [address] [place] [address] Ned Alegria M.D. [address] [place] [phone] 03/24/2024 11:00 AM CDT Appointment Department of Radiology, [facility], in [place], [place] [address] [place] [phone] Ned Alegria M.D. [address] [place] [phone] 03/24/2024 3:30 PM CDT Office Visit Department of Oncology in [place], [place] [address] [place] [address] Ned Alegria M.D. [address] [place] [phone] documented as of this encounter Goals Goal Patient Goal Type Associated Problems Recent Progress Patient-Stated? Author Your pain? Symptom Management 9(11/20/2022 2:41 PM HOME HEALTH ASSISTANT) No Fee-Girma Bush, R.N., O.C.N. Note: 05/24/2021: [...] CEA (Carcinoembryonic Antigen) (07/30/2023 9:33 AM CDT) [facility] Carcinoembryonic Ag (CEA), S 10.9(H) ng/mL 07/30/2023 5:[address] [facility] Comment: ----REFERENCE VALUE---- <=3.0 (Non-smokers) Some smokers may have elevated CEA, usually <5.0. ----ADDITIONAL INFORMATION---- The testing method is an immunoenzymatic assay manufactured by [employer]. and performed on the [employer] 800. ? Values obtained with different assay methods or kits may be different and cannot be used interchangeably. ? Test results cannot be interpreted as absolute evidence for the presence or absence of malignant disease. Blood (Blood, Venous) 07/30/2023 9:33 AM CDT 07/30/2023 4:42 PM CDT Giorgio Fishman M.D. LAB BLOOD ADD-ON [facility] [address] [place] [address] [facility] [address] [place] [address] * Bilirubin, Direct (07/30/2023 9:33 AM CDT) [facility] Bilirubin, Direct, S <0.2 0.0 - 0.3 mg/dL 07/30/2023 10:23 AM CDT [facility] Blood (Blood, Venous) 07/30/2023 9:33 AM CDT 07/30/2023 10:01 AM CDT Giorgio Fishman M.D. LAB BLOOD ADD-ON [facility] [address] [place] [address], [place] [facility] [address] [place] [address] * Comprehensive Metabolic Panel (07/30/2023 9:33 AM CDT) [facility] Potassium, S 4.0 3.6 - 5.2 mmol/L [...] CDT Giorgio Fishman M.D. LAB BLOOD ADD-ON [facility] [address] [place] [address], [facility] DTL [facility] [address] [place] [address] * (ABNORMAL) CBC with Differential, Blood (07/30/2023 [...] CDT Giorgio Fishman M.D. LAB BLOOD ADD-ON [facility] [address] [place] [address], [place] DTL [facility] [address] [place] [address] [facility] [address] [place] [address] documented in this encounter Visit Diagnoses Diagnosis [...] documented as of this encounter Care Teams Leach Runner Relationship Specialty Start Date End Date Elsewhere, Pcp PCP - General Internal Medicine 10/14/22 documented as of this encounter
--- OUTSIDE RECORDS SUMMARY | 2023-12-31 10:45 | XMS_ITS | Encounter Summary ---
Author Name Unknown Organization [facility] Address [address] [place] [address] Care Team Providers Care Salesperson Stereo Equipment Name Role Phone Elsewhere, Pcp Primary Care Provider Unavailabl e Reason for Visit * Reason Onset Date Comments patient has progression 07/28/2023 Encounter Details Date Type Department Care Team (Latest Contact Info) Description 07/28/2023 Clinical Communication Department of Oncology in [place], [place] [address] [place] [address] Giorgio Fishman M.D. [address] [place] [address] patient has progression Social History Tobacco Use [...] 0 04/25/2019 [facility] of Occupat ional [facility] - Occupational Stress Questionnaire Answer Date [...] degree (e.g., MA, MS, Ana Lilia, MEd, EVENT PLANNING INTERN, GORDO) 02/15/2022 Sex and Gender Information Value [...] Orders * Addendum Note - Sandi Hairston M.SRancho., R.N. - 07/29/2023 2:29 PM CDT Addended by: SANDI HAIRSTON on: 07/29/2023 02:29 PM Modules accepted: Orders documented in this encounter Plan of Treatment Upcoming Encounters Date Type Department Care Team (Latest Contact Info) Description 03/23/2024 7:30 AM CDT Clinical Communication Virtual Review in [place], [place] 200 [place] [address] 03/24/2024 9:20 AM CDT Lab Department of Infusion Therapy in [address] [phone] Ned Perez M.D. [address] [place] [phone] 03/24/2024 11:00 AM CDT Appointment Department of Radiology, [facility], in [address] [phone] Ned Perez M.D. [address] [place] [phone] 03/24/2024 3:30 PM CDT Office Visit Department of Oncology in [address] [phone] Ned Perez M.D. [address] [place] [phone] documented as of this encounter Goals Goal Patient Goal Type Associated Problems Recent Progress Patient-Stated? Author Your pain? Symptom Management 9(11/20/2022 2:41 PM DEVOPS ENGINEER) No Phyllis-Girma Bush R.N., O.C.N. Note: 05/24/2021: [...] documented as of this encounter Care Teams Salesperson Stereo Equipment Relationship Specialty Start Date End Date Elsewhere, Pcp PCP - General Internal Medicine 10/14/22 documented as of this encounter
--- OUTSIDE RECORDS SUMMARY | 2023-12-31 10:46 | XMS_ITS | Encounter Summary ---
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 [address] [place] [address] [facility] Referral ID Status Reason Start Date Expiration Date Visits Re quested Visits Authorized [id number] Closed 02/25/2023 02/24/2026 1 1 Encounter Details Date Type Department Care Team (Late st Contact Info) Description 05/07/2023 2:40 PM CDT Telemedicine Department of Oncology in [place], [place] [address] [place] [address] Giorgio Fishman M.D. [address] [place] [address] Malignant Neoplasm Of Rectum (HCC); [...] often do you attend chur ch or rastafari services? Never 02/03/2023 Do you belong to [...] Date Recorded PHQ-2 Score 0 04/25/2019 [facility] of Occupat ional Health - Occupational Stress [...] degree (e.g., MA, MS, Ana Lilia, MEd, BIOLOGICAL AIDE, GORDO) 02/15/2022 Sex and Gender Information Value Date Recorded Sex Assigned at Male 04/23/2018 1:23 PM CDT Gender Identity Male 04/23/2018 1:23 PM CDT Sexual Orientation Straight 04/23/2018 1: 23 PM CDT documented as of this encounter Progress Notes * Giorgio Fishman M.D. - 05/07/2023 2:40 PM CDT SUBJECTIVE PRIMARY CARE PHYSICIAN ELSEWHERE, PCP LOCAL ONCOLOGIST No care steam engineer to display PRIMARY [place] ONCOLOGIST Giorgio Fishman M.D. CHIEF COMPLAINT / [...] was positive for invasive adenocarcinoma. Came to [place] and seen by Gastroenterology. Underwent staging MRI [...] Right posterolateral thoracotomy and mediastinal lymphadenectomy. SURGEON(S) ROLL COVERER: Jazmine Bowden M.D. ASSISTING RESIDENT: Bandar Owusu [...] for metastasis 06/11/2021 - 06/13/2021 Radiation Therapy 5247-6208 cGy in 3 fractions to right posterior [...] for metastasis 06/11/2021 - 06/13/2021 Radiation Therapy [phone] cGy in 3 fractions to right posterior [...] break. Because of family holiday out to [place], he wishes to take a three week [...] audio/video technology by Giorgio Fishman M.D. in [facility] to the patient in Patient's Home in [facility] documented in this encounter Plan of Treatment Upcoming Encounters Date Type Department Care Team (Latest Contact Info) Description 03/23/2024 7:30 AM CDT Clinical Communication Virtual Review in [place], [place] 200 [place] [address] 03/24/2024 9:20 AM CDT Lab Department of Infusion Therapy in [address] [phone] Ned Alegria M.D. [address] [place] [phone] 03/24/2024 11:00 AM CDT Appointment Department of Radiology, [facility], in [address] [phone] Ned Alegria M.D. [address] [place] [phone] 03/24/2024 3:30 PM CDT Office Visit Department of Oncology in [address] [phone] Ned Alegria M.D. 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 Author Your pain? Symptom Management 9(11/20/2022 2:41 PM PREPPER) Raisa Ferguson-Girma Bush RCandidoN., O.C.N. Note: 05/24/2021: Pain algorithm completed. [facility] 05/24/2021: Followup 06/07 via portal per patient [...] CONTRAST COMPARISON: ??Outside abdomen/pelvis CT 07/26/2023 and [place] abdomen/pelvis CT 05/06/2023 . FINDINGS: ??No appreciable [...] CONTRAST COMPARISON: Outside abdomen/pelvis CT 07/26/2023 and [place] abdomen/pelvis CT05/06/2023 . FINDINGS: No appreciable changes [...] lymph nodes since 05/06/2023. Giorgio Fishman M.D. [facility] CT PROCEDURES * (ABNORMAL) CEA (Carcinoembryonic Antigen) (07/30/2023 9:33 AM CDT) Carcinoembryonic Ag (CEA), S 10.9(H) ng/mL 07/30/2023 5:41 PM CDT [facility] Comment: ----REFERENCE VALUE---- <=3.0 (Non-smokers) Some smokers may have elevated CEA, usually <5.0. ----ADDITIONAL INFORMATION---- The testing method is an immunoenzymatic assay manufactured by [employer] and performed on the [employer] 800. ? Values obtained with different assay methods or kits may be different and cannot be used interchangeably. ? Test results cannot be interpreted as absolute evidence for the presence or absence of malignant disease. Blood (Blood, Venous) 07/30/2023 9:33 AM CDT 07/30/2023 4:42 PM CDT Giorgio Fishman M.D. LAB BLOOD ADD-ON Performing Organization Address City/[facility]/ZIP Co de Phone Number [facility] [address] [place] [address] [facility] [address] [place] [address] * Bilirubin, Direct (07/30/2023 9:33 AM CDT) Bilirubin, Direct, S <0.2 0.0 - 0.3 mg/dL 07/30/2023 10:23 AM CDT DTL Blood (Blood, Venous) 07/30/2023 9:33 AM CDT 07/30/2023 10:01 AM CDT Giorgio Fishman M.D. LAB BLOOD ADD-ON Performing Organization Address [facility]/ZIP Co de Phone Number [facility] [address] [place] [address], [facility] [address] [place] [address] * Comprehensive Metabolic Panel (07/30/2023 9:33 AM [...] Fishman M.D. LAB BLOOD ADD-ON [facility] [address] [place] [address], [facility] [address] [place] [address] * (ABNORMAL) CBC with Differential, Blood (07/30/2023 [...] CDT Giorgio Fishman M.D. LAB BLOOD ADD-ON [facility] [address] [place] [address], [facility] DTL [facility] [address] [place] [address] [facility] [address] [place] [address] documented in this encounter Visit Diagnoses Diagnosis [...] documented as of this encounter Care Teams Multicut Line Operator Relationship Specialty Start Date End Date Elsewhere, Pcp PCP - General Internal Medicine 10/14/22 documented as of this encounter
--- OUTSIDE RECORDS SUMMARY | 2023-12-31 10:46 | XMS_ITS | Encounter Summary ---
Author Name Unknown Organization [facility] Address [address] [place] [address] Care Team Providers Care Cafeteria Clerk Name Role Phone Elsewhere, Pcp Primary Care Provider Unavailabl e Reason for Visit * Reason Onset Date Comments Pre-visit Intake 06/17/2023 Encounter Details Date Type Department Care Team (Latest Contact Info) Description 06/17/2023 9:30 AM CDT Clinical Communication Virtual Review in [place], [place] [address] [place], [place] [phone] Pre-visit Intake Social History Tobacco Use Types [...] 0 04/25/[address] [employer] [employer] of Occupat [address] [facility] - Occupational Stress Questionnaire Answer Date [...] degree (e.g., MA, MS, Ana Lilia, MEd, PURCHASING ADMINISTRATIVE ASSISTANT, GORDO) 02/15/2022 Sex and Gender Information Value Date Recorded Sex Assigned at Male 04/23/2018 1:23 PM CDT Gender Identity Male 04/23/2018 1:23 PM CDT Sexual Orientation Straight 04/23/2018 1: 23 PM CDT documented as of this encounter Plan of Treatment Upcoming Encounters Date Type Department Care Team (Latest Contact Info) Description 03/23/2024 7:30 AM CDT Clinical Communication Virtual Review in [place], [place] [address] [place], [place] [phone] 03/24/2024 9:20 AM CDT Lab Department of Infusion Therapy in [place], [place] [address] [place] [phone] Ned Alegria M.D. [address] [place] [phone] 03/24/2024 11:00 AM CDT Appointment Department of Radiology, [facility], in [place], [place] [address] [place] [address] Ned Alegria M.D. [address] [place] [address] 03/24/2024 3:30 PM CDT Office Visit Department of Oncology in [place], [place] [address] [place] [address] Ned Alegria M.D. [address] [place] [phone] documented as of this encounter Goals Goal Patient Goal Type Associated Problems Recent Progress Patient-Stated? Author Your pain? Symptom Management 9(11/20/2022 2:41 PM BLIND TEACHER) No Fee-Girma Bush, RCandidoN., O.C.N. Note: 05/24/2021: Pain algorithm completed. [facility] [place]/24/[place]21: Followup 06/07 via portal per patient [...] documented as of this encounter Care Teams Cafeteria Clerk Relationship Specialty Start Date End Date Elsewhere, Pcp PCP - General Internal Medicine 10/14/22 documented as of this encounter
--- OUTSIDE RECORDS SUMMARY | 2023-12-31 10:46 | XMS_ITS | Encounter Summary ---
Author Name Unknown Organization [facility] Address [address] [place] [address] Care Team Providers Care Records Assistant Name Role Phone Elsewhere, Pcp Primary [...] without IV Contrast Giorgio Fishman M.D. 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 [address] [place] [address] [facility] Referral ID Status Reason Start Date Expiration Date Visits Re quested Visits Authorized [id number] Closed 02/25/2023 02/25/2024 1 1 Reason for [...] with IV Contrast Giorgio Fishman M.D. [address] [place] [address] [facility] Referral ID Status Reason Start Date Expiration Date Visits Re quested Visits Authorized [id number] Closed 02/25/2023 02/25/2024 1 1 Encounter Details Date Type Department Care Team (Latest Contact Info) Description 05/06/2023 1:35 PM CDT - 05/06/2023 11:59 PM CDT Hospital Encounter Department of Radiology, [facility], in [place], [place] [address] [place] [address] Giorgio Fishman M.D. [address] [place] [phone] Secondary Malignant Neoplasm Of Lung Laterality Unknown [...] How often do you attend chur or catholic services? Never 02/03/2023 Do you belong [...] [facility] of Occupat ional Health - Occupational [...] degree (e.g., MA, MS, Ana Lilia, MEd, EDITOR NEWS, GORDO) 02/15/2022 Sex and Gender Information Value [...] for chest pain. 25 tablet 12 05/28/2018 TURMERIC ORAL Take 1 tablet by mouth [...] LORAZEPAM. 24 tablet 1 04/22/2023 09/26/2023 omega 7-ooa-mig-fish oil 1,000 mg (120 mg-180 mg) capsule [...] AM CDT Clinical Communication Virtual Review in [place], [place] 200 [place] [address] 03/24/2024 9:20 AM CDT Lab Department of Infusion Therapy in [place], [place] [address] [place] [phone] Ned Alegria M.D. [address] [place] [phone] 03/24/2024 11:00 AM CDT Appointment Department of Radiology, [facility], in [address] [address] Ned Alegria M.D. [address] [place] [phone] 03/24/2024 3:30 PM CDT Office Visit Department of Oncology in [address] [phone] Ned Alegria M.D. [address] [place] [phone] Scheduled Orders Name Type Priority Associated Diagnoses Orde r Schedule Creatinine, POCT Point of Care Testing-Docked Device Routine Routine lab collecti on (next collection) for 1 Occurrences starting 05/06/2023 until 05/06/2023 documented as of this encounter Goals Goal Patient Goal Type Associated Problems Recent Progress Patient-Stated? Author Your pain? 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 Note: 05/24/2021: [...] Remainder of the chest CT is unchanged. Giorgio SOMMERS CT PROCEDURES * CT Abdomen [...] CT chest report. Procedure Note Cherie Patino M.B.B.SCandido - 05/06/2023 EXAM: CT ABDOMEN PELVIS WITH [...] right side of the celiac artery. Giorgio SOMMERS CT PROCEDURES * Creatinine, POCT (05/06/2023 2:01 PM CDT) Creatinine, POCT, B 0.9 0.7 - 1.4 mg/dL 05/06/2023 2:04 PM CDT PCDT Comment: ----ADDITIONAL INFORMATION---- Performed at the Point of Care Blood 05/06/2023 2:01 PM CDT 05/06/2023 2:04 PM CDT Unknown Provider LAB POCT ORDERABLES - DEVICE Performing Organization Address City/[facility]/ZIP Co de Phone Number [facility] 200 [place] [address], [facility] PCDT [facility] 200 [place] [address] * Creatinine, POCT (05/06/2023 2:01 PM CDT) Estimated GFR (eGFR), POCT >90 >=60 mL/min/BSA 05/06/2023 2:04 PM CDT PCMO Comment: Estimated GFR calculated using the 2020 CKD_EPI creatinine equation. Blood 05/06/2023 2:01 PM CDT 05/06/2023 2:04 PM CDT Unknown Provider LAB POCT ORDERABLES - DEVICE Performing Organization Address [facility] Co de Phone Number [facility] [address] [place] [address], [facility] PCMO [facility] 200 [place] [address] documented in this encounter Visit Diagnoses Diagnosis [...] documented as of this encounter Care Teams Records Assistant Relationship Specialty Start Date End Date Elsewhere, Pcp PCP - General Internal Medicine 10/14/22 documented as of this encounter
--- OUTSIDE RECORDS SUMMARY | 2023-12-31 10:46 | XMS_ITS | Encounter Summary ---
Author Name Unknown Organization [facility] Address [address] [place] [address] Care Team Providers Care Paving Inspector Name Role Phone Elsewhere, Pcp Primary Care Provider Unavailabl e Encounter Details Date Type Department Care Team (Latest Contact Info) Description 05/05/2023 12:00 PM CDT Clinical Communication Virtual Review in [place], [place] 200 [place], [place] [address] Social History Tobacco Use Types Packs/Day Years [...] degree (e.g., MA, MS, Ana Lilia, MEd, SLIP LASTER, GORDO) 02/15/2022 Sex and Gender Information Value Date Recorded Sex Assigned at Male 04/23/2018 1:23 PM CDT Gender Identity Male 04/23/2018 1:23 PM CDT Sexual Orientation Straight 04/23/2018 1: 23 PM CDT documented as of this encounter Plan of Treatment Upcoming Encounters Date Type Department Care Team (Latest Contact Info) Description 03/23/2024 7:30 AM CDT Clinical Communication Virtual Review in [place], [place] 200 [place] [address] 03/24/2024 9:20 AM CDT Lab Department of Infusion Therapy in [address] [phone] Ned Alegria M.D. [address] [place] [phone] 03/24/2024 11:00 AM CDT Appointment Department of Radiology, [facility], in [place], [place] [address] [place] [address] [place] [phone] Ned Alegria M.D. [address] [place] [address] 03/24/2024 3:30 PM CDT Office Visit Department of Oncology in [place], [place] [address] [place] [address] Ned Alegria M.D. [address] [place] [address] documented as of this encounter Goals Goal Patient Goal Type Associated Problems Recent Progress Patient-Stated? Author Your pain? 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 Note: 05/24/2021: [...] documented as of this encounter Care Teams Paving Inspector Relationship Specialty Start Date End Date Elsewhere, Pcp PCP - General Internal Medicine 10/14/22 documented as of this encounter
--- OUTSIDE RECORDS SUMMARY | 2023-12-31 10:46 | XMS_ITS | Encounter Summary ---
Author Name Unknown Organization [facility] Address [address] [place] [address] Care Team Providers Care Stamp Pad Maker Name Role Phone Elsewhere, Pcp Primary Care Provider Unavailabl e Reason for Referral * Outpatient (Routine) - Closed Specialty Diagnoses / Procedures Referred By Contac t Referred To Contact Diagnoses Sacroiliitis (HCC) Procedures FL Sacroiliac Joint Injection Left Alana Shen D.O. 200 [place] [address] [facility] Referral ID Status Reason Start Date Expiration Date Visits Re quested Visits Authorized [id number] Closed 07/25/2023 07/24/2024 1 1 * Outpatient (Routine) - Closed Specialty Diagnoses / Procedures Referred By Contac t Referred To Contact Diagnoses Pain Chest Wall Procedures FL Thoracic Paravertebral Block Injection Right VA PARAVERTEB BLOCK THOR SNGL VA PARAVERTEB BLOCK THOR 2ND & ADD Alana Shen D.O. [address] [place] [address] [facility] Referral ID Status Reason Start Date Expiration Date Visits Re quested Visits Authorized [id number] Closed 06/20/2023 06/19/2024 1 1 * MRI/CAT/PET Scan (Routine) - Closed Specialty Diagnoses / Procedures Referred By Contac t Referred To Contact Radiology Diagnoses Pain Low Back Unspecified Procedures MR Lumbar Spine without IV Contrast Alana Shen D.O. [address] [place] [address] [facility] Referral ID Status Reason Start Date Expiration Date Visits Re quested Visits Authorized [id number] Closed 06/20/2023 06/19/2024 1 1 Reason for Visit * Outpatient (Routine) - Closed Specialty Diagnoses / Procedures Referred By Contac t Referred To Contact Pain Medicine Diagnoses Ella Gonzalez M.D. [address] [place] [address] [facility] Referral ID Status Reason Start Date Expiration Date Visits Re quested Visits Authorized [id number] Closed 04/01/2023 03/31/2026 1 1 Encounter Details Date Type Department Care Team (Late st Contact Info) Description 06/20/2023 11:00 AM CDT Office Visit Division of Pain Medicine in [place], [place] [address] [place] [phone] Alana Shen D.O. [address] [place] [phone] Pain Low Back Unspecified (Primary Dx); Pain [...] often do you attend chur ch or mu-ism services? Never 02/03/2023 Do you belong to [...] Answer Date Recorded PHQ-2 Score 0 04/25/2019 [facility] of Occupat ional Health - Occupational Stress [...] degree (e.g., MA, MS, Ana Lilia, MEd, SUPERVISOR ENGINE ASSEMBLY, GORDO) 02/15/2022 Sex and Gender Information Value [...] ablation. Patient was originally seen in the [place] pain clinic on 03/07/2022 with complaint of [...] his daily life. 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 [address] [place] [phone] 03/24/2024 11:00 AM CDT Appointment Department of Radiology, [facility], in [address] [phone] Ned Alegria M.D. [address] [place] [phone] 03/24/2024 3:30 PM CDT Office Visit Department of Oncology in [address] [phone] Ned Alegria M.D. [address] [place] [phone] documented as of this encounter Goals Goal Patient Goal Type Associated Problems Recent Progress Patient-Stated? Author Your pain? Symptom Management 9(11/20/2022 2:41 PM IMPREGNATOR) No Fee-Girma Bush, R.N., O.C.N. Note: 05/24/2021: [...] loss: 0 Implants: 0 Alana Shen D.O. IM FLUOROSCOPY PROC EDURES * FL Thoracic Paravertebral [...] Region Laterality Modality Lumbar Spine, Neuroradiology [facility], Neuroradiology [facility], Neuroradiology [facility] N/A Magnetic Resonance 07/23/2023 10:0 8 [...] the prior CT scan, there are 5 kdg-udq-utghaxb lumbar-type vertebral bodies present with L5-S1 designated [...] the prior CT scan, there are 5 oxp-tww-mhpdwkceqrwzb-type vertebral bodies present with L5-S1 designated via [...] in the lumbar spine most prominent at L3-L3lqiwe mild spinal canal stenosis and moderate bilateral [...] documented as of this encounter Care Teams Stamp Pad Maker Relationship Specialty Start Date End Date Elsewhere, Pcp PCP - General Internal Medicine 10/14/22 documented as of this encounter
--- OUTSIDE RECORDS SUMMARY | 2023-12-31 10:46 | XMS_ITS | Encounter Summary ---
Author Name Unknown Organization [facility] Address [address] [place] [address] Care Team Providers Care Chief Informatics Officer Name Role Phone Elsewhere, Pcp Primary Care Provider Unavailabl e Reason for Visit * Reason Comments Med Refill Encounter Details Date Type Department Care Team (Late st Contact Info) Description 04/22/2023 Refill Department of Oncology in [place], [place] [address] [place] [address] Giorgio Fishman M.D. [address] [place] [address] Med Refill Social History Tobacco Use Types [...] often do you attend chur ch or hinduism services? Never 02/03/2023 Do you belong to [...] Answer Date Recorded PHQ-2 Score 0 04/25/2019 [facility] of Occupat ional Health - Occupational [...] degree (e.g., MA, MS, Ana Lilia, MEd, TNT LINE SUPERVISOR, GORDO) 02/15/2022 Sex and Gender Information Value Date Recorded Sex Assigned at Male 04/23/2018 1:23 PM CDT Gender Identity Male 04/23/2018 1:23 PM CDT Sexual Orientation Straight 04/23/2018 1: 23 PM CDT documented as of this encounter Plan of Treatment Upcoming Encounters Date Type Department Care Team (Latest Contact Info) Description 03/23/2024 7:30 AM CDT Clinical Communication Virtual Review in [place], [place] 200 [place] [address] 03/24/2024 9:20 AM CDT Lab Department of Infusion Therapy in [address] [phone] Ned Alegria M.D. [address] [place] [phone] 03/24/2024 11:00 AM CDT Appointment Department of Radiology, [facility], in [place], [place] [address] [place] [address] Ned Alegria M.D. [address] [place] [phone] 03/24/2024 3:30 PM CDT Office Visit Department of Oncology in [place], [place] [address] [place] [address] Ned Alegria M.D. [address] [place] [phone] documented as of this encounter Goals Goal Patient Goal Type Associated Problems Recent Progress Patient-Stated? Author Your pain? Symptom Management 9(11/20/2022 2:41 PM RN CARDIAC REHAB) Raisa Ferguson-Girma Bush RCandidoN., O.C.N. Note: 05/24/2021: Pain algorithm completed. [place] [...] documented as of this encounter Care Teams Chief Informatics Officer Relationship Specialty Start Date End Date Elsewhere, Pcp PCP - General Internal Medicine 10/14/22 documented as of this encounter
--- OUTSIDE RECORDS SUMMARY | 2023-12-31 10:46 | XMS_ITS | Encounter Summary ---
Author Name Unknown Organization [facility] Address [address] [place] [address] Care Team Providers Care Activated Sludge Attendant Name Role Phone Elsewhere, Pcp Primary Care Provider Unavailabl e Encounter Details Date Type Department Care Team (Late st Contact Info) Description 05/06/2023 1:00 PM CDT Lab Department of Infusion Therapy in [place], [place] [address] [place] [address] Giorgio Fishman M.D. [address] [place] [address] Secondary Malignant Neoplasm Of Lung Laterality Unknown [...] often do you attend chur ch or presybeterian services? Never 02/03/2023 Do you belong to [...] Date Recorded PHQ-2 Score 0 04/25/2019 [facility] of Occupat ional Health - Occupational [...] degree (e.g., MA, MS, Ana Lilia, MEd, MOLDER BENCH, GORDO) 02/15/2022 Sex and Gender Information Value Date Recorded Sex Assigned at Male 04/23/2018 1:23 PM CDT Gender Identity Male 04/23/2018 1:23 PM CDT Sexual Orientation Straight 04/23/2018 1: 23 PM CDT documented as of this encounter Plan of Treatment Upcoming Encounters Date Type Department Care Team (Latest Contact Info) Description 03/23/2024 7:30 AM CDT Clinical Communication Virtual Review in [place], [place] [address] [place], [place] [phone] 03/24/2024 9:20 AM CDT Lab Department of Infusion Therapy in [place], [place] [address] [place] [address] Ned Alegria M.D. [address] [place] [phone] 03/24/2024 11:00 AM CDT Appointment Department of Radiology, [facility], in [place], [place] [address] [place] [phone] Ned Alegria M.D. [address] [place] [phone] 03/24/2024 3:30 PM CDT Office Visit Department of Oncology in [place], [place] [address] [place] [address] Ned Alegria M.D. [address] [place] [phone] documented as of this encounter Goals Goal Patient Goal Type Associated Problems Recent Progress Patient-Stated? Author Your pain? 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 Note: 05/24/2021: Pain algorithm completed. STROUD [...] S 12.4(H) ng/mL 05/06/2023 6:52 PM CDT [facility] Comment: ----REFERENCE VALUE---- <=3.0 (Non-smokers) Some smokers may have elevated CEA, usually <5.0. ----ADDITIONAL INFORMATION---- The testing method is an immunoenzymatic assay manufactured by [employer]. and performed on the [employer] DxI 800. ? Values obtained with different assay methods or kits may be different and cannot be used interchangeably. ? Test results cannot be interpreted as absolute evidence for the presence or absence of malignant disease. Blood (Blood, Venous) 05/06/2023 1:28 PM CDT 05/06/2023 5:55 PM CDT Giorgio Fishman M.D. LAB BLOOD ADD-ON [facility] [address] [place] [address] [facility] [address] [place] [address] * (ABNORMAL) Comprehensive Metabolic Panel (05/06/2023 1:28 PM CDT) [facility] Potassium, S 4.3 3.6 - [...] CDT Giorgio Fishman M.D. LAB BLOOD ADD-ON [address] [address], [facility] [address] [address] * (ABNORMAL) CBC with Differential, Blood (05/06/2023 [...] Fishman M.D. LAB BLOOD ADD-ON [facility] [address] [place] [address], [facility] [address] [place] [address] documented in this encounter Visit Diagnoses Diagnosis [...] intra-catheter, As needed, line care, Starting on Fri05/06/23 at 1317, When no infusion to maintain [...] intra-catheter, As needed, line care, Starting on Fri05/06/23 at 1317, When IVAD Accessed and in Use: Flush prior to and following infusion, between multiple consecutive infusions, and prior to blood sampling. Given 05/06/2023 1:17 PM CDT 10 mL sodium chloride 0.9 % injection 20 mL 20 mL, intra-catheter, As needed, line care, Starting on Fri05/06/23 at 1317, When IVAD Accessed and in Use: Flush post blood transfusion or post blood sampling. Given 05/06/2023 1:17 PM CDT 20 mL documented in this encounter Additional Health Concerns Assessment Noted Time PHQ-9 Depression Total Score: 7 05/26/20 18 10:22 PM CDT documented as of this encounter Care Teams Activated Sludge Attendant Relationship Specialty Start Date End Date Elsewhere, Pcp PCP - General Internal Medicine 10/14/22 documented as of this encounter
--- OUTSIDE RECORDS SUMMARY | 2023-12-31 10:46 | XMS_ITS | Encounter Summary ---
Author Name Unknown Organization [facility] Address [address] [place] [address] Care Team Providers Care Education Analyst Name Role Phone Elsewhere, Pcp Primary Care Provider Unavailabl e Reason for Visit * Reason Comments Med Refill OLANZapine Encounter Details Date Type Department Care Team (Late st Contact Info) Description 04/21/2023 Refill Department of Oncology in [place], [place] [address] [place] [address] Giorgio Fishman M.D. [address] [place] [address] Med Refill (OLANZapine) Social History Tobacco Use [...] often do you attend chur ch or faith services? Never 02/03/2023 Do you belong to [...] degree (e.g., MA, MS, Ana Lilia, MEd, ROCKET PROPELLANT PLANT SUPERVISOR, GORDO) 02/15/2022 Sex and Gender Information Value Date Recorded Sex Assigned at Male 04/23/2018 1:23 PM CDT Gender Identity Male 04/23/2018 1:23 PM CDT Sexual Orientation Straight 04/23/2018 1: 23 PM CDT documented as of this encounter Plan of Treatment Upcoming Encounters Date Type Department Care Team (Latest Contact Info) Description 03/23/2024 7:30 AM CDT Clinical Communication Virtual Review in [place], [place] 200 [place] [address] 03/24/2024 9:20 AM CDT Lab Department of Infusion Therapy in [address] [phone] Ned Alegria M.D. [address] [place] [address] 03/24/2024 11:00 AM CDT Appointment Department of Radiology, [facility], in [place], [place] [address] [place] [address] Ned Alegria M.D. [address] [place] [phone] 03/24/2024 3:30 PM CDT Office Visit Department of Oncology in [place], [place] [address] [place] [address] Ned Alegria M.D. [address] [place] [phone] documented as of this encounter Goals Goal Patient Goal Type Associated Problems Recent Progress Patient-Stated? Author Your pain? Symptom Management 9(11/20/2022 2:41 PM DRILL PRESSER) No Fee-Girma uBsh RCandidoN., O.C.N. Note: 05/24/2021: Pain algorithm completed. [...] as of this encounter Care Teams Education Analyst Relationship Specialty Start Date End Date Elsewhere, Pcp PCP - General Internal Medicine 10/14/22 documented as of this encounter
--- OUTSIDE RECORDS SUMMARY | 2023-12-31 10:46 | XMS_ITS | Encounter Summary ---
Author Name Unknown Organization [facility] Address [address] [place] [address] Care Team Providers Care Wastewater Analyst Name Role Phone Elsewhere, Pcp Primary Care Provider Unavailabl e Reason for Visit * Reason Comments Med Refill pantoprazole Encounter Details Date Type Department Care Team ([facility] st Contact Info) Description 04/21/2023 Refill Department of Oncology in [place], [place] [address] [place] [phone] Leopoldo Renteria P.A.-C., M.S. [address] [place] [address] Med Refill (pantoprazole ) Social History Tobacco [...] Score 0 04/25/2019 [facility] - Occupational Stress Questionnaire Answer Date [...] degree (e.g., MA, MS, Ana Lilia, MEd, WOODWORKING BELT SANDER, GORDO) 02/15/2022 Sex and Gender Information Value Date Recorded Sex Assigned at Male 04/23/2018 1:23 PM CDT Gender Identity Male 04/23/2018 1:23 PM CDT Sexual Orientation Straight 04/23/2018 1: 23 PM CDT documented as of this encounter Plan of Treatment Upcoming Encounters Date Type Department Care Team (Latest Contact Info) Description 03/23/2024 7:30 AM CDT Clinical Communication Virtual Review in [place], [place] [address] [place] [address] 03/24/2024 9:20 AM CDT Lab Department of Infusion Therapy in [place], [place] [address] [place] [phone] Ned Alegria M.D. [address] [place] [address] 03/24/2024 11:00 AM CDT Appointment Department of Radiology, [facility], in [place], [place] [address] [place] [address] Ned Alegria M.D. [address] [place] [phone] 03/24/2024 3:30 PM CDT Office Visit Department of Oncology in [place], [place] [address] [place] [address] Ned Alegria M.D. [address] [place] [phone] documented as of this encounter Goals Goal Patient Goal Type Associated Problems Recent Progress Patient-Stated? Author Your pain? Symptom Management 9(11/20/2022 2:41 PM ORGANIC CHEMIST) No Fee-Girma Bush, R.N., O.C.N. Note: 05/24/2021: Pain algorithm completed. [facility] 05/24/2021: Followup 06/07 via portal [...] documented as of this encounter Care Teams Wastewater Analyst Relationship Specialty Start Date End Date Elsewhere, Pcp PCP - General Internal Medicine 10/14/22 documented as of this encounter
--- OUTSIDE RECORDS SUMMARY | 2023-12-31 10:46 | XMS_ITS | Encounter Summary ---
Author Name Unknown Organization [facility] Address [address] [place] [address] Care Team Providers Care Sheet Cutter Name Role Phone Elsewhere, Pcp Primary Care Provider Unavailabl e Reason for Referral * MRI/CAT/PET Scan (Routine) - Closed Specialty Diagnoses / Procedures Referred By Halima owen Referred To Contact Radiology Diagnoses Pain Hip Left Procedures MR Hip Left without and with IV Contrast Amy Neff M.D. [address] [place] [address] [facility] Referral ID Status Reason Start Date Expiration Date Visits Re quested Visits Authorized [id number] Closed 04/15/2023 04/14/2024 1 1 Reason for Visit * MRI/CAT/PET Scan (Routine) - Closed Specialty Diagnoses / Procedures Referred By Hailma owen Referred To Contact Radiology Diagnoses Pain Hip Left Procedures MR Hip Left without and with IV Contrast Amy Neff M.D. [address] [place] [address] [facility] Referral ID Status Reason Start Date Expiration Date Visits Re quested Visits Authorized [id number] Closed 04/15/2023 04/14/2024 1 1 Encounter Details Date Type Department Care Team (Latest Contact Info) Description 05/07/2023 7:17 AM CDT - 05/07/2023 11:59 PM CDT Hospital Encounter Department of Radiology, [facility], in [place], [place] [address] [place] [address] Amy Neff M.D. [address] [place] [phone] Pain Hip Left Discharge Disposition: Home or [...] Date Recorded PHQ-2 Score 0 04/25/2019 [facility] Occupat ional [facility] [...] degree (e.g., MA, MS, Ana Lilia, MEd, COMPUTED TOMOGRAPHY TECHNICIAN, GORDO) 02/15/2022 Sex and Gender Information [...] daily. 0 LORazepam (ATIVAN) 0.5 mg tabletIndications:Zuleyka nant Neoplasm Of Rectum (HCC),Secondary Malignant Neoplasm [...] 08/09/2022 05/23/2023 gabapentin (NEURONTIN) 300 mg capsuleIndications:Rosie yanes Neoplasm [...] LORAZEPAM. 24 tablet 1 04/22/2023 09/26/2023 omega 6-ihl-btt-fish oil 1,000 mg (120 mg-180 mg) capsule [...] AM CDT Clinical Communication Virtual Review in [place], [place] 200 [place] [address] 03/24/2024 9:20 AM CDT Lab Department of Infusion Therapy in [place], [place] [address] [place] [phone] Ned Alegria M.D. [address] [place] [phone] 03/24/2024 11:00 AM CDT Appointment Department of Radiology, [facility], in [place], [place] [address] [place] [phone] Ned Alegria M.D. [address] [place] [phone] 03/24/2024 3:30 PM CDT Office Visit Department of Oncology in [place], [place] [address] [place] [phone] Ned Alegria M.D. [address] [place] [address] documented as of this encounter Goals Goal Patient Goal Type Associated Problems Recent Progress Patient-Stated? Author Your pain? Symptom Management 9(11/20/2022 2:41 PM STAFF ANESTHETIST) No Fee-Girma Bush, RCandidoN., O.C.N. Note: 05/24/2021: Pain algorithm completed. SURGICAL [...] documented as of this encounter Care Teams Sheet Cutter Relationship Specialty Start Date End Date Elsewhere, Pcp PCP - General Internal Medicine 10/14/22 documented as of this encounter
--- OUTSIDE RECORDS SUMMARY | 2023-12-31 10:46 | XMS_ITS | Encounter Summary ---
Author Name Unknown Organization [facility] Address [address] [place] [address] Care Team Providers Care Ammonia Solution Preparer Name Role Phone Elsewhere, Pcp Primary Care Provider Unavailabl e Encounter Details Date Type Department Care Team (Late st Contact Info) Description 06/20/2023 Orders Only Department of Oncology in [place], [place] [address] [place] [phone] Leopoldo Renteria P.A.-C., M.S. [address] [place] [address] Social History Tobacco Use Types Packs/Day Years [...] degree (e.g., MA, MS, Ana Lilia, MEd, TURPENTINE DISTILLER, GORDO) 02/15/2022 Sex and Gender Information Value Date Recorded Sex Assigned at Male 04/23/2018 1:23 PM CDT Gender Identity Male 04/23/2018 1:23 PM CDT Sexual Orientation Straight 04/23/2018 1: 23 PM CDT documented as of this encounter Plan of Treatment Upcoming Encounters Date Type Department Care Team (Latest Contact Info) Description 03/23/2024 7:30 AM CDT Clinical Communication Virtual Review in [place], [place] 200 [place] [address] 03/24/2024 9:20 AM CDT Lab Department of Infusion Therapy in [place], [place] [address] [place] [phone] Ned Alegria M.D. [address] [place] [phone] 03/24/2024 11:00 AM CDT Appointment Department of Radiology, [facility], in [place], [place] [address] [place] [address] Ned Alegria M.D. [address] [place] [address] 03/24/2024 3:30 PM CDT Office Visit Department of Oncology in [place], [place] [address] [place] [address] Ned Alegria M.D. [address] [place] [phone] documented as of this encounter Goals Goal Patient Goal Type Associated Problems Recent Progress Patient-Stated? Author Your pain? Symptom Management 9(11/20/2022 2:41 PM UNION REPRESENTATIVE) Raisa Ferguson-Girma Bush RCandidoN., O.C.N. Note: 05/24/2021: Pain algorithm completed. [facility] [...] documented as of this encounter Care Teams Ammonia Solution Preparer Relationship Specialty Start Date End Date Elsewhere, Pcp PCP - General Internal Medicine 10/14/22 documented as of this encounter
--- OUTSIDE RECORDS SUMMARY | 2023-12-31 10:47 | XMS_ITS | Encounter Summary ---
Author Name Unknown Organization [facility] Address [address] [place] [address] Care Team Providers Care Wire Bender Name Role Phone Elsewhere, Pcp Primary Care Provider Unavailabl e Reason for Visit * Reason Onset Date Comments 02/14/23 Labs only 02/14/2023 Encounter Details Date Type Department Care Team (Latest Contact Info) Description 02/14/2023 Clinical Communication Department of Oncology in [place], [place] [address] [place] [address] Sandi Celaya M.S.N., R.N. 02/14/23 Labs only [...] degree (e.g., MA, MS, Ana Lilia, MEd, BAGGAGE AGENT, GORDO) 02/15/2022 Sex and Gender Information Value Date Recorded Sex Assigned at Male 04/23/2018 1:23 PM CDT Gender Identity Male 04/23/2018 1:23 PM CDT Sexual Orientation Straight 04/23/2018 1: 23 PM CDT documented as of this encounter Plan of Treatment Upcoming Encounters Date Type Department Care Team (Latest Contact Info) Description 03/23/2024 7:30 AM CDT Clinical Communication Virtual Review in [place], [place] 200 [place] [address] 03/24/2024 9:20 AM CDT Lab Department of Infusion Therapy in [address] [address] Ned Alegria M.D. [address] [place] [phone] 03/24/2024 11:00 AM CDT Appointment Department of Radiology, [facility], in [place], [place] [address] [place] [address] Ned Alegria M.D. [address] [place] [address] 03/24/2024 3:30 PM CDT Office Visit Department of Oncology in [place], [place] [address] [place] [address] Ned Alegria M.D. [address] [place] [phone] documented as of this encounter Goals Goal Patient Goal Type Associated Problems Recent Progress Patient-Stated? Author Your pain? Symptom Management 9(11/20/2022 2:41 PM CLERICAL AND OFFICE SUPPORT WORKERS) Raisa Ferguson-Girma Bush RCandidoN., O.C.N. Note: 05/24/2021: Pain algorithm completed. [facility] 05/24/2021: Followup 06/07 via portal per [...] 14.2 13.5 - 17.5 OTHER (SPECIFY IN CONTRACT POST OFFICE CLERK) EXT Leukocytes 3.08(A) 4.50 - 11.00 OTHER (SPECIFY IN CONTRACT POST OFFICE CLERK) EXT Absolute Neutrophil Count 1.70 1.7 - 7.0 OTHER (SPECIFY IN CONTRACT POST OFFICE CLERK) EXT Platelet Count 119(A) 140 - 440 OTHER (SPECIFY IN CONTRACT POST OFFICE CLERK) EXT Albumin 4.2 3.3 - 5.0 g/dL OTHER (SPECIFY IN CONTRACT POST OFFICE CLERK) EXT Sodium 138(A) 149 mmol/L OTHER (SPECIFY IN CONTRACT POST OFFICE CLERK) EXT Potassium 4.1 3.6 - 5.1 OTHER (SPECIFY IN CONTRACT POST OFFICE CLERK) Blood 02/14/2023 12:2 0 PM CDT Historical Provider LAB BLOOD NON ADD-ON OTHER (SPECIFY IN CONTRACT POST OFFICE CLERK) N/A documented in this encounter Visit Diagnoses Not on filedocumented in this encounter Additional Health Concerns Assessment Noted Time PHQ-9 Depression Total Score: 7 05/26/20 18 10:22 PM CDT documented as of this encounter Care Teams Wire Bender Relationship Specialty Start Date End Date Elsewhere, Pcp PCP - General Internal Medicine 10/14/22 documented as of this encounter
--- OUTSIDE RECORDS SUMMARY | 2023-12-31 10:47 | XMS_ITS | Encounter Summary ---
Author Name Unknown Organization [facility] Address [address] [place] [address] Care Team Providers Care Local Company Truck Driver Name Role Phone Elsewhere, Pcp Primary Care Provider Unavailabl e Reason for Visit * Reason Onset Date Comments 02/21/23 Labs only 02/21/2023 Encounter Details Date Type Department Care Team (Latest Contact Info) Description 02/21/2023 Clinical Communication Department of Oncology in [place], [place] [address] [place] [address] Sandi Celaya M.S.N., R.N. 02/21/23 Labs only [...] often do you attend chur ch or alevism services? Never 02/03/2023 Do you belong to [...] 0 04/25/2019 [facility] of Occupat ional Health - Occupational [...] degree (e.g., MA, MS, Ana Lilia, MEd, LEAD ATG DEVELOPER, GORDO) 02/15/2022 Sex and Gender Information Value Date Recorded Sex Assigned at Male 04/23/2018 1:23 PM CDT Gender Identity Male 04/23/2018 1:23 PM CDT Sexual Orientation Straight 04/23/2018 1: 23 PM CDT documented as of this encounter Plan of Treatment Upcoming Encounters Date Type Department Care Team (Latest Contact Info) Description 03/23/2024 7:30 AM CDT Clinical Communication Virtual Review in [place], [place] 200 [place] [address] 03/24/2024 9:20 AM CDT Lab Department of Infusion Therapy in [address] [address] Ned Alegria M.D. [address] [place] [phone] 03/24/2024 11:00 AM CDT Appointment Department of Radiology, [facility], in [place], [place] [address] [place] [address] Ned Alegria M.D. [address] [place] [address] 03/24/2024 3:30 PM CDT Office Visit Department of Oncology in [place], [place] [address] [place] [address] Ned Alegria M.D. [address] [place] [phone] documented as of this encounter Goals Goal Patient Goal Type Associated Problems Recent Progress Patient-Stated? Author Your pain? Symptom Management 9(11/20/2022 2:41 PM RN FAMILY PRACTICE) Raisa Ferguson-Girma Bush RCandidoN., O.C.N. Note: 05/24/2021: Pain algorithm completed. [facility] 05/24/2021: Followup 06/07 via portal per patient [...] 14.2 13.5 - 17.5 OTHER (SPECIFY IN STOVE FITTER) EXT Leukocytes 3.45(A) 4.50 - 11.00 OTHER (SPECIFY IN STOVE FITTER) EXT Absolute Neutrophil Count 2.20 1.7 - 7.0 OTHER (SPECIFY IN STOVE FITTER) EXT Platelet Count 108(A) 140 - 440 OTHER (SPECIFY IN STOVE FITTER) EXT AST 41(A) 0.1 - 1.5 OTHER (SPECIFY IN STOVE FITTER) EXT ALT 53(A) 4 - 50 OTHER (SPECIFY IN STOVE FITTER) EXT Alkaline Phosphatase 92 40 - 150 OTHER (SPECIFY IN STOVE FITTER) EXT Bilirubin, Total 0.6 0.1 - 1.5 mg/dL OTHER (SPECIFY IN STOVE FITTER) EXT Albumin 4.0 3.3 - 5.0 g/dL OTHER (SPECIFY IN STOVE FITTER) EXT Sodium 136 135 - 149 mmol/L OTHER (SPECIFY IN STOVE FITTER) EXT Potassium 4.0 3.6 - 5.1 OTHER (SPECIFY IN STOVE FITTER) EXT Creatinine 0.7 0.5 - 1.5 mg/dL OTHER (SPECIFY IN STOVE FITTER) Blood 02/21/2023 8:50 AM CDT Historical Provider LAB BLOOD NON ADD-ON OTHER (SPECIFY IN STOVE FITTER) N/A documented in this encounter Visit Diagnoses Not on filedocumented in this encounter Additional Health Concerns Assessment Noted Time PHQ-9 Depression Total Score: 7 05/26/20 18 10:22 PM CDT documented as of this encounter Care Teams Local Company Truck Driver Relationship Specialty Start Date End Date Elsewhere, Pcp PCP - General Internal Medicine 10/14/22 documented as of this encounter
--- OUTSIDE RECORDS SUMMARY | 2023-12-31 10:47 | XMS_ITS | Encounter Summary ---
Author Name Unknown Organization [facility] Address [address] [place] [address] Care Team Providers Care Opener Name Role Phone Elsewhere, Pcp Primary Care Provider Unavailabl e Reason for Visit * Reason Onset Date Comments 02/28 labs only 02/28/2023 Encounter Details Date Type Department Care Team (Latest Contact Info) Description 02/28/2023 Clinical Communication Department of Oncology in [place], [place] [address] [place] [address] Sandi Celaya M.S.N., R.N. 02/28 labs only [...] (e.g., MA, MS, Ana Lilia, MEd, BEE RANCHER, GORDO) 02/15/2022 Sex and Gender Information Value Date Recorded Sex Assigned at Male 04/23/2018 1:23 PM CDT Gender Identity Male 04/23/2018 1:23 PM CDT Sexual Orientation Straight 04/23/2018 1: 23 PM CDT documented as of this encounter Plan of Treatment Upcoming Encounters Date Type Department Care Team (Latest Contact Info) Description 03/23/2024 7:30 AM CDT Clinical Communication Virtual Review in [place], [place] 200 [place] [address] 03/24/2024 9:20 AM CDT Lab Department of Infusion Therapy in [place], [place] [address] [place] [phone] Ned Alegria M.D. [address] [place] [phone] 03/24/2024 11:00 AM CDT Appointment Department of Radiology, [facility], in [place], [place] [address] [place] [address] Ned Alegria M.D. [address] [place] [address] 03/24/2024 3:30 PM CDT Office Visit Department of Oncology in [place], [place] [address] [place] [address] Ned Alegria M.D. [address] [place] [phone] documented as of this encounter Goals Goal Patient Goal Type Associated Problems Recent Progress Patient-Stated? Author Your pain? Symptom Management 9(11/20/2022 2:41 PM FIRE ENGINEER) Raisa Ferguson-Girma Bush RCandidoN., O.C.N. Note: 05/24/2021: Pain algorithm completed. [facility] 05/24/2021: Followup 06/07 [...] 13.3(A) 13.5 - 17.5 OTHER (SPECIFY IN MICROSOFT DYNAMICS AX DEVELOPER) EXT Leukocytes 6.59 4.50 - 11.00 OTHER (SPECIFY IN MICROSOFT DYNAMICS AX DEVELOPER) EXT Absolute Neutrophil Count 5.10 1.7 - 7.0 OTHER (SPECIFY IN MICROSOFT DYNAMICS AX DEVELOPER) EXT Platelet Count 110(A) 140 - 440 OTHER (SPECIFY IN MICROSOFT DYNAMICS AX DEVELOPER) EXT AST 33 12 - 35 OTHER (SPECIFY IN MICROSOFT DYNAMICS AX DEVELOPER) EXT ALT 55(A) 4 - 50 OTHER (SPECIFY IN MICROSOFT DYNAMICS AX DEVELOPER) EXT Alkaline Phosphatase 93 40 - 150 OTHER (SPECIFY IN MICROSOFT DYNAMICS AX DEVELOPER) EXT Bilirubin, Total 0.8 0.1 - 1.5 mg/dL OTHER (SPECIFY IN MICROSOFT DYNAMICS AX DEVELOPER) EXT Albumin 4.0 3.3 - 5.0 g/dL OTHER (SPECIFY IN MICROSOFT DYNAMICS AX DEVELOPER) EXT Sodium 136 135 - 149 mmol/L OTHER (SPECIFY IN MICROSOFT DYNAMICS AX DEVELOPER) EXT Potassium 4.1 3.6 - 5.1 OTHER (SPECIFY IN MICROSOFT DYNAMICS AX DEVELOPER) EXT Creatinine 0.7 0.5 - 1.5 mg/dL OTHER (SPECIFY IN MICROSOFT DYNAMICS AX DEVELOPER) Blood 02/28/2023 8:45 AM CDT Historical Provider LAB BLOOD NON ADD-ON OTHER (SPECIFY IN MICROSOFT DYNAMICS AX DEVELOPER) N/A documented in this encounter Visit Diagnoses Not on filedocumented in this encounter Additional Health Concerns Assessment Noted Time PHQ-9 Depression Total Score: 7 05/26/20 18 10:22 PM CDT documented as of this encounter Care Teams Opener Relationship Specialty Start Date End Date Elsewhere, Pcp PCP - General Internal Medicine 10/14/22 documented as of this encounter
--- OUTSIDE RECORDS SUMMARY | 2023-12-31 10:47 | XMS_ITS | Encounter Summary ---
Author Name Unknown Organization [facility] Address [address] [place] [address] Care Team Providers Care Buffing Line Set Up Worker Name Role Phone Elsewhere, Pcp Primary Care Provider Unavailabl e Reason for Referral * Outpatient (Routine) - Closed Specialty Diagnoses / Procedures Referred By Halima owen Referred To Contact Diagnoses Pain Neuropathic Procedures FL Thoracic Paravertebral Block Injection Right FL Thoracic Paravertebral Block Injection Right VA PARAVERTEB BLOCK THOR SNGL VA PARAVERTEB BLOCK THOR 2ND & ADD VA PARAVERTEB BLOCK THOR 2ND & ADD Ella Potter M.D. 200 [place] [address] [facility] Referral ID Status Reason Start Date Expiration Date Visits Re quested Visits Authorized [id number] Closed 04/01/2023 03/31/2024 1 1 Reason for Visit * Outpatient (Routine) - Closed Specialty Diagnoses / Procedures Referred By Halima owen Referred To Contact Diagnoses Pain Neuropathic Procedures FL Thoracic Paravertebral Block Injection Right FL Thoracic Paravertebral Block Injection Right VA PARAVERTEB BLOCK THOR SNGL VA PARAVERTEB BLOCK THOR 2ND & ADD VA PARAVERTEB BLOCK THOR 2ND & ADD Ella Potter M.D. [address] [place] [phone] [facility] Referral ID Status Reason Start Date Expiration Date Visits Re quested Visits Authorized [id number] Closed 04/01/2023 03/31/2024 1 1 Encounter Details Date Type Department Care Team (Latest Contact Info) Description 04/04/2023 7:21 AM CDT - 04/04/2023 11:59 PM CDT Hospital Encounter Division of Pain Medicine in [place], [place] [address] [place] [address] Ella Potter M.D. Pain Neuropathic Discharge Disposition: [...] often do you attend chur ch or zoroastrian services? Never 02/03/2023 Do you [...] PHQ-2 Score 0 04/25/2019 [facility] of Occupat ional Health - Occupational Stress [...] degree (e.g., MA, MS, Ana Lilia, MEd, MECHANICAL SYSTEM TECHNICIAN, GORDO) 02/15/2022 Sex and Gender Information [...] WITH LORAZEPAM. 24 tablet 1 02/25/2023 04/22/2023 omega 5-qpe-cnt-fish oil 1,000 mg (120 mg-180 mg) capsule [...] Tray Spears M.D., M.B.A. 2. Jayda Alexis LCandidoPCandidoN. PROCEDURE SUMMARY Pre-procedural pain: 8/10 Post-procedural pain: [...] fellow participated in the procedure, and the configuration management consultant was present for the entire [...] AM CDT Clinical Communication Virtual Review in [address] [address] 03/24/2024 9:20 AM CDT Lab Department of Infusion Therapy in [address] [address] Ned Alegria M.D. [address] [place] [phone] 03/24/2024 11:00 AM CDT [facility]ment [facility] in [address] [address] Ned Alegria M.D. [address] [place] [phone] 03/24/2024 3:30 PM CDT Office Visit Department of Oncology in [address] [phone] Ned Alegria M.D. [address] [place] [phone] documented as of this encounter Goals Goal Patient Goal Type Associated Problems Recent Progress Patient-Stated? Author Your pain? Symptom Management 9(11/20/2022 2:41 PM PEELER OPERATOR) No Phyllis-Girma Bush RCandidoN., O.C.N. Note: 05/24/2021: [...] M.D. - 04/04/2023 8:00 AM CDT Max Sylvseter M.D. ? 04/07/2023 11:54 AM [place] Thoracic [...] fellow participated in the procedure, and the configuration management consultant was present for the entire [...] documented as of this encounter Care Teams Buffing Line Set Up Worker Relationship Specialty Start Date End Date Elsewhere, Pcp PCP - General Internal Medicine 10/14/22 documented as of this encounter
--- OUTSIDE RECORDS SUMMARY | 2023-12-31 10:47 | XMS_ITS | Encounter Summary ---
Author Name Unknown Organization [facility] Address [address] [place] [address] Care Team Providers Care Ordnance Engineering Technician Name Role Phone Elsewhere, Pcp Primary Care Provider Unavailabl e Reason for Visit * Reason Comments Med Refill gabapentin Encounter Details Date Type Department Care Team (Late st Contact Info) Description 04/06/2023 Refill Department of Oncology in [place], [place] [address] [place] [address] Giorgio Fishman M.D. [address] [place] [phone] Med Refill (gabapentin ) Social History Tobacco [...] often do you attend chur ch or latter-day services? Never 02/03/2023 Do you belong to [...] degree (e.g., MA, MS, Ana Lilia, MEd, COMMUNICATION PROFESSOR, GORDO) 02/15/2022 Sex and Gender Information Value Date Recorded Sex Assigned at Male 04/23/2018 1:23 PM CDT Gender Identity Male 04/23/2018 1:23 PM CDT Sexual Orientation Straight 04/23/2018 1: 23 PM CDT documented as of this encounter Plan of Treatment Upcoming Encounters Date Type Department Care Team (Latest Contact Info) Description 03/23/2024 7:30 AM CDT Clinical Communication Virtual Review in [place], [place] 200 [place] [address] 03/24/2024 9:20 AM CDT Lab Department of Infusion Therapy in [address] [address] Ned Alegria M.D. [address] [place] [address] 03/24/2024 11:00 AM CDT Appointment Department of Radiology, [facility], in [place], [place] [address] [place] [address] Ned Alegria M.D. [address] [place] [phone] 03/24/2024 3:30 PM CDT Office Visit Department of Oncology in [place], [place] [address] [place] [address] Ned Alegria M.D. [address] [place] [phone] documented as of this encounter Goals Goal Patient Goal Type Associated Problems Recent Progress Patient-Stated? Author Your pain? Symptom Management 9(11/20/2022 2:41 PM QUALITY CONTROL TECHNICIAN) No Fee-Girma Bush RCandidoN., O.C.N. Note: [...] documented as of this encounter Care Teams Ordnance Engineering Technician Relationship Specialty Start Date End Date Elsewhere, Pcp PCP - General Internal Medicine 10/14/22 documented as of this encounter
--- OUTSIDE RECORDS SUMMARY | 2023-12-31 10:47 | XMS_ITS | Encounter Summary ---
Author Name Unknown Organization [facility] Address [address] [place] [address] Care Team Providers Care Manager Of Digital Name Role Phone Elsewhere, Pcp Primary Care Provider Unavailabl e Reason for Referral * MRI/CAT/PET Scan (Routine) - Closed Specialty Diagnoses / Procedures Referred By Halima t Referred To Contact Radiology Diagnoses Pain Hip Left Procedures MR Hip Left without and with IV Contrast Amy Neff M.D. [address] [place] [address] [facility] Referral ID Status Reason Start Date Expiration Date Visits Re quested Visits Authorized [id number] Closed 04/15/2023 04/14/2024 1 1 Encounter Details Date Type Department Care Team (Late st Contact Info) Description 04/15/2023 Orders Only Department of Oncology in [place], [place] [address] [place] [phone] Amy Neff M.D. [address] [place] [phone] Pain Hip Left (Primary Dx) Social History [...] week 02/03/2023 [facility]? Never 02/03/2023 Do you [...] Answer Date Recorded PHQ-2 Score 0 04/25/2019 [facility] of Occupat ional Health - Occupational Stress [...] degree (e.g., MA, MS, Ana Lilia, MEd, PROGRAMMER, GORDO) 02/15/2022 Sex and Gender Information Value Date Recorded Sex Assigned at Male 04/23/2018 1:23 PM CDT Gender Identity Male 04/23/2018 1:23 PM CDT Sexual Orientation Straight 04/23/2018 1: 23 PM CDT documented as of this encounter Plan of Treatment Upcoming Encounters Date Type Department Care Team (Latest Contact Info) Description 03/23/2024 7:30 AM CDT Clinical Communication Virtual Review in [place], [place] 200 [place] [address] 03/24/2024 9:20 AM CDT Lab Department of Infusion Therapy in [place], [place] [address] [place] [phone] Ned Alegria M.D. [address] [place] [phone] 03/24/2024 11:00 AM CDT Appointment Department of Radiology, [facility], in [address] [phone] Ned Alegria M.D. [address] [place] [phone] 03/24/2024 3:30 PM CDT Office Visit Department of Oncology in [address] [phone] Ned Alegria M.D. [address] [place] [phone] documented as of this encounter Goals Goal Patient Goal Type Associated Problems Recent Progress Patient-Stated? Author Your pain? Symptom Management 9(11/20/2022 2:41 PM INTERLOCKING PAVEMENT INSTALLER) No Fee-Girma Bush, R.N., O.C.N. Note: 05/24/2021: Pain algorithm completed. [facility] [place] 05/24/2021: Followup 06/07 via portal per patient [...] of this encounter Care Teams Manager Of Digital Relationship Specialty Start Date End Date Elsewhere, Pcp PCP - General Internal Medicine 10/14/22 documented as of this encounter
--- OUTSIDE RECORDS SUMMARY | 2023-12-31 10:47 | XMS_ITS | Encounter Summary ---
Author Name Unknown Organization [facility] Address [address] [place] [address] Care Team Providers Care Copyright Expert Name Role Phone Elsewhere, Pcp Primary Care Provider Unavailabl e Reason for Visit * Reason Onset Date Comments 03/21 [facility] 03/21/2023 Encounter Details Date Type Department Care Team (Latest Contact Info) Description 03/21/2023 Clinical Communication Department of Oncology in [place], [place] [address] [place] [address] Giorgio Fishman M.D. [address] [place] [phone] 03/21 Alert Labs Social History Tobacco Use [...] 0 04/25/2019 [facility] - Occupational Stress Questionnaire Answer Date [...] degree (e.g., MA, MS, Ana Lilia, MEd, PARALEGAL SUPERVISOR, GORDO) 02/15/2022 Sex and Gender Information Value Date Recorded Sex Assigned at Male 04/23/2018 1:23 PM CDT Gender Identity Male 04/23/2018 1:23 PM CDT Sexual Orientation Straight 04/23/2018 1: 23 PM CDT documented as of this encounter Plan of Treatment Upcoming Encounters Date Type Department Care Team (Latest Contact Info) Description 03/23/2024 7:30 AM CDT Clinical Communication Virtual Review in [place], [place] [address] [place] [address] 03/24/2024 9:20 AM CDT Lab Department of Infusion Therapy in [place], [place] [address] [place] [address] Ned Alegria M.D. [address] [place] [address] 03/24/2024 11:00 AM CDT Appointment Department of Radiology, [facility], in [place], [place] [address] [place] [address] Ned Alegria M.D. [address] [place] [phone] 03/24/2024 3:30 PM CDT Office Visit Department of Oncology in [place], [place] [address] [place] [address] Ned Alegria M.D. [address] [place] [phone] documented as of this encounter Goals Goal Patient Goal Type Associated Problems Recent Progress Patient-Stated? Author Your pain? Symptom Management 9(11/20/2022 2:41 PM MEDICAL DOSIMETRIST) No Fee-Girma Bush, R.N., O.C.N. Note: 05/24/2021: [...] 13.6 13.5 - 17.5 OTHER (SPECIFY IN CRAB PICKER) EXT Leukocytes 4.04(A) 4.50 - 11.00 OTHER (SPECIFY IN CRAB PICKER) EXT Absolute Neutrophil Count 2.10 1.7 - 7.0 OTHER (SPECIFY IN CRAB PICKER) EXT Platelet Count 86(A) 140 - 440 OTHER (SPECIFY IN CRAB PICKER) EXT AST 34 12 - 35 OTHER (SPECIFY IN CRAB PICKER) EXT ALT 48 4 - 50 OTHER (SPECIFY IN CRAB PICKER) EXT Alkaline Phosphatase 107 40 - 150 OTHER (SPECIFY IN CRAB PICKER) EXT Bilirubin, Total 0.9 0.1 - 1.5 mg/dL OTHER (SPECIFY IN CRAB PICKER) EXT Albumin 4.2 3.3 - 5.0 g/dL OTHER (SPECIFY IN CRAB PICKER) EXT Sodium 135 135 - 149 mmol/L OTHER (SPECIFY IN CRAB PICKER) EXT Potassium 4.2 3.6 - 5.1 OTHER (SPECIFY IN CRAB PICKER) EXT Creatinine 0.8 0.5 - 1.5 mg/dL OTHER (SPECIFY IN CRAB PICKER) Blood 03/21/2023 11:1 5 AM CDT Historical Provider LAB BLOOD NON ADD-ON OTHER (SPECIFY IN CRAB PICKER) N/A documented in this encounter Visit Diagnoses Not on filedocumented in this encounter Additional Health Concerns Assessment Noted Time PHQ-9 Depression Total Score: 7 05/26/20 18 10:22 PM CDT documented as of this encounter Care Teams Copyright Expert Relationship Specialty Start Date End Date Elsewhere, Pcp PCP - General Internal Medicine 10/14/22 documented as of this encounter
--- OUTSIDE RECORDS SUMMARY | 2023-12-31 10:47 | XMS_ITS | Encounter Summary ---
Author Name Unknown Organization [facility] Address [address] [place] [address] Care Team Providers Care Outdoor Education Teacher Name Role Phone Elsewhere, Pcp Primary Care Provider Unavailabl e Reason for Visit * Reason Comments Med Refill pantoprazole Encounter Details Date Type Department Care Team ([facility] st Contact Info) Description 03/06/2023 Refill Department of Oncology in [place], [place] [address] [place] [phone] Leopoldo Renteria P.A.-C., M.S. [address] [place] [address] Med Refill (pantoprazole ) Social History Tobacco [...] often do you attend chur ch or yazdanism services? Never 02/03/2023 Do you belong to [...] Recorded PHQ-2 Score 0 04/25/2019 [facility] - Occupational Stress Questionnaire Answer Date [...] degree (e.g., MA, MS, Ana Lilia, MEd, DRILLING MANAGER, GORDO) 02/15/2022 Sex and Gender Information [...] AM CDT Clinical Communication Virtual Review in [place], [place] 200 [place] [address] 03/24/2024 9:20 AM CDT Lab Department of Infusion Therapy in [place], [place] [address] [place] [phone] Ned Alegria M.D. [address] [place] [phone] 03/24/2024 11:00 AM CDT Appointment Department of Radiology, [facility], in [place], [place] [address] [place] [phone] Ned Alegria M.D. [address] [place] [phone] 03/24/2024 3:30 PM CDT Office Visit Department of Oncology in [place], [place] [address] [place] [phone] Ned Alegria M.D. [address] [place] [phone] documented as of this encounter Goals Goal Patient Goal Type Associated Problems Recent Progress Patient-Stated? Author Your pain? Symptom Management 9(11/20/2022 2:41 PM APPRAISER LAND) No Fee-Girma Bush, R.N., O.C.N. Note: 05/24/2021: Pain algorithm completed. [facility] [place]: Followup 06/07 via portal per patient [...] documented as of this encounter Care Teams Outdoor Education Teacher Relationship Specialty Start Date End Date Elsewhere, Pcp PCP - General Internal Medicine 10/14/22 documented as of this encounter
--- OUTSIDE RECORDS SUMMARY | 2023-12-31 10:47 | XMS_ITS | Encounter Summary ---
Author Name Unknown Organization [facility] Address [address] [place] [address] Care Team Providers Care Imagery Analyst Name Role Phone Elsewhere, Pcp Primary Care Provider Unavailabl e Reason for Visit * Reason Comments Med Refill OLANZapine Encounter Details Date Type Department Care Team (Late st Contact Info) Description 02/23/2023 Refill Department of Oncology in [place], [place] [address] [place] [address] Giorgio Fishman M.D. [address] [place] [address] Med Refill (OLANZapine) Social History Tobacco Use [...] Answer Date Recorded PHQ-2 Score 0 04/25/2019 [facility] of Occupat ional Health - [...] degree (e.g., MA, MS, Ana Lilia, MEd, SR. OPERATIONS MANAGER, GORDO) 02/15/2022 Sex and Gender Information Value Date Recorded Sex Assigned at Male 04/23/2018 1:23 PM CDT Gender Identity Male 04/23/2018 1:23 PM CDT Sexual Orientation Straight 04/23/2018 1: 23 PM CDT documented as of this encounter Plan of Treatment Upcoming Encounters Date Type Department Care Team (Latest Contact Info) Description 03/23/2024 7:30 AM CDT Clinical Communication Virtual Review in [place], [place] 200 [place] [address] 03/24/2024 9:20 AM CDT Lab Department of Infusion Therapy in [address] [phone] Ned Alegria M.D. [address] [place] [address] 03/24/2024 11:00 AM CDT Appointment Department of Radiology, [facility], in [place], [place] [address] [place] [address] Ned Alegria M.D. [address] [place] [phone] 03/24/2024 3:30 PM CDT Office Visit Department of Oncology in [place], [place] [address] [place] [address] Ned Alegria M.D. [address] [place] [phone] documented as of this encounter Goals Goal Patient Goal Type Associated Problems Recent Progress Patient-Stated? Author Your pain? Symptom Management 9(11/20/2022 2:41 PM WINDOWS SECURITY ENGINEER) No Fee-Girma Bush RCandidoN., O.C.N. Note: 05/24/2021: [...] documented as of this encounter Care Teams Imagery Analyst Relationship Specialty Start Date End Date Elsewhere, Pcp PCP - General Internal Medicine 10/14/22 documented as of this encounter
--- OUTSIDE RECORDS SUMMARY | 2023-12-31 10:47 | XMS_ITS | Encounter Summary ---
Author Name Unknown Organization [facility] Address [address] [place] [address] Care Team Providers Care Supervisor Assembly Name Role Phone Elsewhere, Pcp Primary Care Provider Unavailabl e Reason for Visit * Reason Onset Date Comments 04/04 Alert [facility] 04/04/2023 Encounter Details Date Type Department Care Team (Latest Contact Info) Description 04/04/2023 Clinical Communication Department of Oncology in [place], [place] [address] [place] [address] Sandi Celaya M.S.N., R.N. 04/04 Alert [facility] [...] degree (e.g., MA, MS, Ana Lilia, MEd, PEN AND PENCIL REPAIRER, GORDO) 02/15/2022 Sex and Gender Information Value Date Recorded Sex Assigned at Male 04/23/2018 1:23 PM CDT Gender Identity Male 04/23/2018 1:23 PM CDT Sexual Orientation Straight 04/23/2018 1: 23 PM CDT documented as of this encounter Plan of Treatment Upcoming Encounters Date Type Department Care Team (Latest Contact Info) Description 03/23/2024 7:30 AM CDT Clinical Communication Virtual Review in [place], [place] [address] [place] [address] 03/24/2024 9:20 AM CDT Lab Department of Infusion Therapy in [place], [place] [address] [place] [phone] Ned Alegria M.D. [address] [place] [phone] 03/24/2024 11:00 AM CDT Appointment Department of Radiology, [facility], in [place], [place] [address] [place] [address] Ned Alegria M.D. [address] [place] [address] 03/24/2024 3:30 PM CDT Office Visit Department of Oncology in [place], [place] [address] [place] [address] Ned Alegria M.D. [address] [place] [phone] documented as of this encounter Goals Goal Patient Goal Type Associated Problems Recent Progress Patient-Stated? Author Your pain? Symptom Management 9(11/20/2022 2:41 PM WRITING MANAGER) Raisa Ferguson-Girma Bush RCandidoN., O.C.N. Note: 05/24/2021: [...] 13.5 13.5 - 17.5 OTHER (SPECIFY IN VMWARE ENGINEER) EXT Leukocytes 2.71(A) 4.50 - 11.00 OTHER (SPECIFY IN VMWARE ENGINEER) EXT Absolute Neutrophil Count 2.30 1.7 - 7.0 OTHER (SPECIFY IN VMWARE ENGINEER) EXT Platelet Count 73(A) 140 - 440 OTHER (SPECIFY IN VMWARE ENGINEER) EXT AST 38(A) 12 - 35 OTHER (SPECIFY IN VMWARE ENGINEER) EXT ALT 41 4 - 50 OTHER (SPECIFY IN VMWARE ENGINEER) EXT Alkaline Phosphatase 102 40 - 150 OTHER (SPECIFY IN VMWARE ENGINEER) EXT Bilirubin, Total 0.7 0.1 - 1.5 mg/dL OTHER (SPECIFY IN VMWARE ENGINEER) EXT Albumin 4.2 3.3 - 5.0 g/dL OTHER (SPECIFY IN VMWARE ENGINEER) EXT Sodium 137 135 - 149 mmol/L OTHER (SPECIFY IN VMWARE ENGINEER) EXT Potassium 4.4 3.6 - 5.1 OTHER (SPECIFY IN VMWARE ENGINEER) EXT Creatinine 0.7 0.5 - 1.5 mg/dL OTHER (SPECIFY IN VMWARE ENGINEER) Blood 04/04/2023 10:2 0 AM CDT Historical Provider LAB BLOOD NON ADD-ON OTHER (SPECIFY IN VMWARE ENGINEER) N/A documented in this encounter Visit Diagnoses Not on filedocumented in this encounter Additional Health Concerns Assessment Noted Time PHQ-9 Depression Total Score: 7 05/26/20 18 10:22 PM CDT documented as of this encounter Care Teams Supervisor Assembly Relationship Specialty Start Date End Date Elsewhere, Pcp PCP - General Internal Medicine 10/14/22 documented as of this encounter
--- OUTSIDE RECORDS SUMMARY | 2023-12-31 10:47 | XMS_ITS | Encounter Summary ---
Author Name Unknown Organization [facility] Address [address] [place] [address] Care Team Providers Care Tinning Machine Set Up Operator Name Role Phone Elsewhere, Pcp Primary Care Provider Unavailabl e Reason for Visit * Reason Onset Date Comments 03/14/23 Labs Only 03/14/2023 Encounter Details Date Type Department Care Team (Latest Contact Info) Description 03/14/2023 Clinical Communication Department of Oncology in [place], [place] [address] [place] [address] Sandi Celaya M.S.N., R.N. 03/14/23 Labs Only [...] degree (e.g., MA, MS, Ana Lilia, MEd, STATIONARY FIREMAN, GORDO) 02/15/2022 Sex and Gender Information Value Date Recorded Sex Assigned at Male 04/23/2018 1:23 PM CDT Gender Identity Male 04/23/2018 1:23 PM CDT Sexual Orientation Straight 04/23/2018 1: 23 PM CDT documented as of this encounter Plan of Treatment Upcoming Encounters Date Type Department Care Team (Latest Contact Info) Description 03/23/2024 7:30 AM CDT Clinical Communication Virtual Review in [place], [place] 200 [place] [address] 03/24/2024 9:20 AM CDT Lab Department of Infusion Therapy in [address] [phone] Ned Alegria M.D. [address] [place] [phone] 03/24/2024 11:00 AM CDT Appointment Department of Radiology, [facility], in [place], [place] [address] [place] [address] Ned Alegria M.D. [address] [place] [address] 03/24/2024 3:30 PM CDT Office Visit Department of Oncology in [place], [place] [address] [place] [address] Ned Alegria M.D. [address] [place] [phone] documented as of this encounter Goals Goal Patient Goal Type Associated Problems Recent Progress Patient-Stated? Author Your pain? Symptom Management 9(11/20/2022 2:41 PM RENEWABLE ENERGY DIVISION MANAGER) Raisa Ferguson-Girma Bush RCandidoN., O.C.N. Note: [...] Dilaudid as needed per conversation with Dr. iFshman. He is aware that once he starts [...] 13.3(A) 13.5 - 17.5 OTHER (SPECIFY IN ALUMINUM SHEET CUTTER) EXT Leukocytes 3.16(A) 4.50 - 11.00 OTHER (SPECIFY IN ALUMINUM SHEET CUTTER) EXT Absolute Neutrophil Count 1.50(A) 1.7 - 7.0 OTHER (SPECIFY IN ALUMINUM SHEET CUTTER) EXT Platelet Count 107(A) 140 - 440 OTHER (SPECIFY IN ALUMINUM SHEET CUTTER) EXT AST 34 12 - 35 OTHER (SPECIFY IN ALUMINUM SHEET CUTTER) EXT ALT 44 4 - 50 OTHER (SPECIFY IN ALUMINUM SHEET CUTTER) EXT Alkaline Phosphatase 105 40 - 150 OTHER (SPECIFY IN ALUMINUM SHEET CUTTER) EXT Bilirubin, Total 0.7 0.1 - 1.5 mg/dL OTHER (SPECIFY IN ALUMINUM SHEET CUTTER) EXT Albumin 4.0 3.3 - 5.0 g/dL OTHER (SPECIFY IN ALUMINUM SHEET CUTTER) EXT Sodium 136 135 - 149 mmol/L OTHER (SPECIFY IN ALUMINUM SHEET CUTTER) EXT Potassium 4.2 3.6 - 5.1 OTHER (SPECIFY IN ALUMINUM SHEET CUTTER) EXT Creatinine 0.8 0.5 - 1.5 mg/dL OTHER (SPECIFY IN ALUMINUM SHEET CUTTER) Blood 03/14/2023 8:30 AM CDT Historical Provider LAB BLOOD NON ADD-ON OTHER (SPECIFY IN ALUMINUM SHEET CUTTER) N/A documented in this encounter Visit Diagnoses Not on filedocumented in this encounter Additional Health Concerns Assessment Noted Time PHQ-9 Depression Total Score: 7 05/26/20 18 10:22 PM CDT documented as of this encounter Care Teams Tinning Machine Set Up Operator Relationship Specialty Start Date End Date Elsewhere, Pcp PCP - General Internal Medicine 10/14/22 documented as of this encounter
--- OUTSIDE RECORDS SUMMARY | 2023-12-31 10:47 | XMS_ITS | Encounter Summary ---
Author Name Unknown Organization [facility] Address [address] [place] [address] Care Team Providers Care Recruitment Specialist Name Role Phone Elsewhere, Pcp Primary Care Provider Unavailabl e Reason for Visit * Reason Onset Date Comments 03-07-2023 Labs Only 03/07/2023 Encounter Details Date Type Department Care Team (Latest Contact Info) Description 03/07/2023 Clinical Communication Department of Oncology in [place], [place] [address] [place] [address] Leopoldo Renteria P.A.-C., M.S. [address] [place] [address] 03-07-2023 Labs Only Social History Tobacco Use [...] Answer Date Recorded PHQ-2 Score 0 04/25/2019 [facility] of Occupat ional Health - [...] degree (e.g., MA, MS, Ana Lilia, MEd, REAL ESTATE REPRESENTATIVE, GORDO) 02/15/2022 Sex and Gender Information Value Date Recorded Sex Assigned at Male 04/23/2018 1:23 PM CDT Gender Identity Male 04/23/2018 1:23 PM CDT Sexual Orientation Straight 04/23/2018 1: 23 PM CDT documented as of this encounter Plan of Treatment Upcoming Encounters Date Type Department Care Team (Latest Contact Info) Description 03/23/2024 7:30 AM CDT Clinical Communication Virtual Review in [place], [place] [address] [place] [address] 03/24/2024 9:20 AM CDT Lab Department of Infusion Therapy in [place], [place] [address] [place] [address] Ned Alegria M.D. [address] [place] [phone] 03/24/2024 11:00 AM CDT Appointment Department of Radiology, [facility], in [place], [place] [address] [place] [address] Ned Alegria M.D. [address] [place] [phone] 03/24/2024 3:30 PM CDT Office Visit Department of Oncology in [place], [place] [address] [place] [address] Ned Alegria M.D. [address] [place] [phone] documented as of this encounter Goals Goal Patient Goal Type Associated Problems Recent Progress Patient-Stated? Author Your pain? Symptom Management 9(11/20/2022 2:41 PM WRIST HEMMER) No Fee-Girma Bush, R.N., O.C.N. Note: 05/24/2021: [...] 13.6 13.5 - 17.5 OTHER (SPECIFY IN SUPERVISOR METAL FURNITURE ASSEMBLY) EXT Leukocytes 3.38(A) 4.50 - 11.00 OTHER (SPECIFY IN SUPERVISOR METAL FURNITURE ASSEMBLY) EXT Absolute Neutrophil Count 1.90 1.7 - 7.0 OTHER (SPECIFY IN SUPERVISOR METAL FURNITURE ASSEMBLY) EXT Platelet Count 121(A) 140 - 440 OTHER (SPECIFY IN SUPERVISOR METAL FURNITURE ASSEMBLY) EXT AST 32 12 - 35 OTHER (SPECIFY IN SUPERVISOR METAL FURNITURE ASSEMBLY) EXT ALT 37 4 - 50 OTHER (SPECIFY IN SUPERVISOR METAL FURNITURE ASSEMBLY) EXT Alkaline Phosphatase 89 40 - 150 OTHER (SPECIFY IN SUPERVISOR METAL FURNITURE ASSEMBLY) EXT Bilirubin, Total 0.7 0.1 - 1.5 mg/dL OTHER (SPECIFY IN SUPERVISOR METAL FURNITURE ASSEMBLY) EXT Albumin 3.9 3.3 - 5.0 g/dL OTHER (SPECIFY IN SUPERVISOR METAL FURNITURE ASSEMBLY) EXT Sodium 134(A) 135 - 149 mmol/L OTHER (SPECIFY IN SUPERVISOR METAL FURNITURE ASSEMBLY) EXT Potassium 4.1 3.6 - 5.1 OTHER (SPECIFY IN SUPERVISOR METAL FURNITURE ASSEMBLY) EXT Creatinine 0.7 0.5 - 1.5 mg/dL OTHER (SPECIFY IN SUPERVISOR METAL FURNITURE ASSEMBLY) Blood 03/07/2023 9:05 AM CDT Historical Provider LAB BLOOD NON ADD-ON OTHER (SPECIFY IN SUPERVISOR METAL FURNITURE ASSEMBLY) N/A documented in this encounter Visit Diagnoses Not on filedocumented in this encounter Additional Health Concerns Assessment Noted Time PHQ-9 Depression Total Score: 7 05/26/20 18 10:22 PM CDT documented as of this encounter Care Teams Recruitment Specialist Relationship Specialty Start Date End Date Elsewhere, Pcp PCP - General Internal Medicine 10/14/22 documented as of this encounter
--- OUTSIDE RECORDS SUMMARY | 2023-12-31 10:48 | XMS_ITS | Encounter Summary ---
Author Name Unknown Organization [facility] Address [address] [place] [address] Care Team Providers Care Clay Miller Name Role Phone Elsewhere, Pcp Primary Care Provider Unavailabl e Reason for Visit * Reason Onset Date Comments Pre-visit Intake 01/31/2023 Encounter Details Date Type Department Care Team (Latest Contact Info) Description 01/31/2023 8:30 AM CDT Clinical Communication Virtual Review in [place], [place] [address] [place], [place] [address] Pre-visit Intake Social History Tobacco Use Types [...] week 02/15/2022 How often do you attend mormon or restoration serv ices? Never 02/15/2022 Do you belong [...] Answer Date Recorded PHQ-2 Score 0 04/25/2019 [facility] of Occupat ional Health - Occupational Stress [...] slept in a jail (including now)? No 02/15/2022 Nutrition Answer Date [...] degree (e.g., MA, MS, Ana Lilia, MEd, ASSOCIATE PROFESSOR OF COMMUNICATION, GORDO) 02/15/2022 Sex and Gender Information Value Date Recorded Sex Assigned at Male 04/23/2018 1:23 PM CDT Gender Identity Male 04/23/2018 1:23 PM CDT Sexual Orientation Straight 04/23/2018 1: 23 PM CDT documented as of this encounter Plan of Treatment Upcoming Encounters Date Type Department Care Team (Latest Contact Info) Description 03/23/2024 7:30 AM CDT Clinical Communication Virtual Review in [place], [place] [address] [place], [place] [phone] 03/24/2024 9:20 AM CDT Lab Department of Infusion Therapy in [place], [place] [address] [place] [phone] Ned Alegria M.D. [address] [place] [phone] 03/24/2024 11:00 AM CDT Appointment Department of Radiology, [facility], in [place], [place] [address] [place] [address] Ned Alegria M.D. [address] [place] [address] 03/24/2024 3:30 PM CDT Office Visit Department of Oncology in [place], [place] [address] [place] [address] Ned Alegria M.D. [address] [place] [address] documented as of this encounter Goals Goal Patient Goal Type Associated Problems Recent Progress Patient-Stated? Author Your pain? Symptom Management 9(11/20/2022 2:41 PM REGISTRY RN) No Phyllis-Girma Bush, RCandidoN., O.C.N. Note: 05/24/2021: [...] documented as of this encounter Care Teams Clay Miller Relationship Specialty Start Date End Date Elsewhere, Pcp PCP - General Internal Medicine 10/14/22 documented as of this encounter
--- OUTSIDE RECORDS SUMMARY | 2023-12-31 10:48 | XMS_ITS | Encounter Summary ---
Author Name Unknown Organization [facility] Address [address] [place] [address] Care Team Providers Care Cadet Deck Name Role Phone Elsewhere, Pcp Primary Care [...] without IV Contrast Myrtle Guzman M.D. 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 [address] [place] [address] [facility] Referral ID Status Reason Start Date Expiration Date Visits Re quested Visits Authorized [id number] Closed 01/02/2023 01/01/2026 1 1 Encounter Details Date Type Department Care Team (Late st Contact Info) Description 02/12/2023 4:00 PM CDT Telemedicine Department of Oncology in [place], [place] [address] [place] [address] Myrtle Guzman M.D. [address] [place] [address] Secondary Malignant Neoplasm Lymph Node Multiple Site [...] How often do you attend [facility] or quaker services? Never 02/03/2023 Do [...] Date Recorded PHQ-2 Score 0 04/25/2019 [facility] - Occupational [...] degree (e.g., MA, MS, Ana Lilia, MEd, DYE WORKER, GORDO) 02/15/2022 Sex and Gender Information [...] care recruiting team lead to display PRIMARY [place] ONCOLOGIST Myrtle Guzman M.D. CHIEF COMPLAINT / [...] was positive for invasive adenocarcinoma. Came to [place] and seen by Gastroenterology. Underwent staging MRI [...] Right posterolateral thoracotomy and mediastinal lymphadenectomy. SURGEON(S) AUTOMOTIVE METALSMITH: Jazmine Bowden M.D. ASSISTING RESIDENT: Bandar Owusu [...] for metastasis 06/11/2021 - 06/13/2021 Radiation Therapy [phone] cGy in 3 fractions to right posterior [...] for metastasis 06/11/2021 - 06/13/2021 Radiation Therapy [phone] cGy in 3 fractions to right posterior [...] happy to see him back here in [place] if he so desires. For now his [...] audio/video technology by Myrtle Guzman M.D. in [facility] to the patient in patient's vacation location in [place] documented in this encounter Miscellaneous Notes * Addendum Note - Myrtle Guzman M.D. - 02/12/2023 4:00 PM CDTAddended by: MYRTLE GUZMAN on: 02/25/2023 08:18 AM Modules accepted: Orders documented in this encounter Plan of Treatment Upcoming Encounters Date Type Department Care Team (Latest Contact Info) Description 03/23/2024 7:30 AM CDT Clinical Communication Virtual Review in [address] [address] 03/24/2024 9:20 AM CDT Lab Department of Infusion Therapy in [address] [phone] Ned Alegria M.D. [address] [place] [phone] 03/24/2024 11:00 AM CDT Appointment Department of Radiology, [facility], in [address] [address] Ned Alegria M.D. [address] [place] [phone] 03/24/2024 3:30 PM CDT Office Visit Department of Oncology in [address] [address] Ned Alegria M.D. 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 Author Your pain? 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 Note: 05/24/2021: [...] Remainder of the chest CT is unchanged. Myrtle SOMMERS CT PROCEDURES * CT Abdomen Pelvis [...] of the celiac artery. Myrtle Guzman M.D. Shanika CT PROCEDURES * (ABNORMAL) CEA (Carcinoembryonic Antigen) (05/06/2023 1:28 PM CDT) Carcinoembryonic Ag (CEA), S 12.4(H) ng/mL 05/06/2023 6:52 PM CDT [facility] Comment: ----REFERENCE VALUE---- <=3.0 (Non-smokers) Some smokers may have elevated CEA, usually <5.0. ----ADDITIONAL INFORMATION---- The testing method is an immunoenzymatic assay manufactured by [employer]. and performed on the [employer] 800. ? Values obtained with different assay methods or kits may be different and cannot be used interchangeably. ? Test results cannot be interpreted as absolute evidence for the presence or absence of malignant disease. Blood (Blood, Venous) 05/06/2023 1:28 PM CDT 05/06/2023 5:55 PM CDT Myrtle Guzman M.D. LAB BLOOD ADD-ON [facility] [address] [place] [address] [facility] [address] [place] [address] * (ABNORMAL) Comprehensive Metabolic Panel (05/06/2023 1:28 PM CDT) Pathologist [facility] Potassium, S 4.3 3.6 - 5.2 mmol/L [...] CDT Myrtle Guzman M.D. LAB BLOOD ADD-ON [facility] [address] [place] [address], [facility] [address] [place] [address] * (ABNORMAL) CBC with Differential, Blood (05/06/2023 [...] 1:28 PM CDT 05/06/2023 1:47 PM CDT Myrtel Guzman M.D. LAB BLOOD ADD-ON [facility] [address] [place] [address], [facility] [address] [place] [address] documented in this encounter Visit Diagnoses Diagnosis [...] documented as of this encounter Care Teams Cadet Deck Relationship Specialty Start Date End Date Elsewhere, Pcp PCP - General Internal Medicine 10/14/22 documented as of this encounter
--- OUTSIDE RECORDS SUMMARY | 2023-12-31 10:48 | XMS_ITS | Encounter Summary ---
Author Name Unknown Organization [facility] Address [address] [place] [address] Care Team Providers Care Digital Analyst Name Role Phone Elsewhere, Pcp Primary Care Provider Unavailabl e Reason for Visit * Reason Onset Date Comments 01/24/23 labs only 01/27/2023 Encounter Details Date Type Department Care Team (Latest Contact Info) Description 01/27/2023 Clinical Communication Department of Oncology in [place], [place] [address] [place] [address] Binta Staples, RRancho. 01/24/23 labs only Social [...] week 02/15/2022 How often do you attend confucianist or islam serv ices? Never 02/15/2022 Do you belong [...] in a senior care (including now)? No 02/15/2022 Nutrition Answer Date [...] degree (e.g., MA, MS, Ana Lilia, MEd, MANAGEMENT PROFESSOR, GORDO) 02/15/2022 Sex and Gender Information Value Date Recorded Sex Assigned at Male 04/23/2018 1:23 PM CDT Gender Identity Male 04/23/2018 1:23 PM CDT Sexual Orientation Straight 04/23/2018 1: 23 PM CDT documented as of this encounter Plan of Treatment Upcoming Encounters Date Type Department Care Team (Latest Contact Info) Description 03/23/2024 7:30 AM CDT Clinical Communication Virtual Review in [place], [place] [address] [place], [place] [phone] 03/24/2024 9:20 AM CDT Lab Department of Infusion Therapy in [place], [place] [address] [place] [phone] Ned Alegria M.D. [address] [place] [phone] 03/24/2024 11:00 AM CDT Appointment Department of Radiology, [facility], in [place], [place] [address] [place] [address] Ned Alegria M.D. [address] [place] [address] 03/24/2024 3:30 PM CDT Office Visit Department of Oncology in [place], [place] [address] [place] [address] Ned Alegria M.D. [address] [place] [address] documented as of this encounter Goals Goal Patient Goal Type Associated Problems Recent Progress Patient-Stated? Author Your pain? Symptom Management 9(11/20/2022 2:41 PM FIRE CHIEF DEPUTY) No Phyllis-Girma Bush, RCandidoN., O.C.N. Note: 05/24/2021: [...] EXTERNAL LAB RESULTS Routine 01/24/2023 8:30 AM FIRE CHIEF DEPUTY documented in this encounter Results * (ABNORMAL) Hematology/Oncology - Blood, External Lab Results (01/24/2023 8:30 AM FIRE CHIEF DEPUTY) EXT Hemoglobin 14.6 13.5 - 17.5 OTHER (SPECIFY IN BENDING SHED WORKER) EXT Leukocytes 3.41(A) 4.50 - 11.00 OTHER (SPECIFY IN BENDING SHED WORKER) EXT Absolute Neutrophil Count 1.80 1.7 - 7.0 OTHER (SPECIFY IN BENDING SHED WORKER) EXT Platelet Count 107(A) 140 - 440 OTHER (SPECIFY IN BENDING SHED WORKER) EXT AST 31 12 - 35 OTHER (SPECIFY IN BENDING SHED WORKER) EXT ALT 40 4 - 50 OTHER (SPECIFY IN BENDING SHED WORKER) EXT Alkaline Phosphatase 81 40 - 150 OTHER (SPECIFY IN BENDING SHED WORKER) EXT Bilirubin, Total 1.1 0.1 - 1.5 mg/dL OTHER (SPECIFY IN BENDING SHED WORKER) EXT Albumin 4.1 3.3 - 5.0 g/dL OTHER (SPECIFY IN BENDING SHED WORKER) EXT Sodium 135 135 - 149 mmol/L OTHER (SPECIFY IN BENDING SHED WORKER) EXT Potassium 3.9 3.6 - 5.1 OTHER (SPECIFY IN BENDING SHED WORKER) EXT Creatinine 0.9 0.5 - 1.5 mg/dL OTHER (SPECIFY IN BENDING SHED WORKER) Blood 01/24/2023 8:30 AM FIRE CHIEF DEPUTY Historical Provider LAB BLOOD NON ADD-ON OTHER (SPECIFY IN BENDING SHED WORKER) N/A documented in this encounter Visit Diagnoses Not on filedocumented in this encounter Additional Health Concerns Assessment Noted Time PHQ-9 Depression Total Score: 7 05/26/20 18 10:22 PM CDT documented as of this encounter Care Teams Digital Analyst Relationship Specialty Start Date End Date Elsewhere, Pcp PCP - General Internal Medicine 10/14/22 documented as of this encounter
--- OUTSIDE RECORDS SUMMARY | 2023-12-31 10:48 | XMS_ITS | Encounter Summary ---
Author Name Unknown Organization [facility] Address [address] [place] [address] Care Team Providers Care Fur Sewer Name Role Phone Elsewhere, Pcp Primary Care Provider Unavailabl e Encounter Details Date Type Department Care Team (Late st Contact Info) Description 01/02/2023 Clinical Communication Department of Oncology in [place], [place] [address] [place] [address] Giorgio Fishman M.D. [address] [place] [phone] Social History Tobacco Use Types Packs/Day Years [...] week 02/15/2022 How often do you attend rastafari or presybeterian serv ices? Never 02/15/2022 Do you belong [...] Answer Date Recorded PHQ-2 Score 0 04/25/2019 [facility] - Occupational [...] slept in a snf (including now)? No 02/15/2022 Nutrition Answer Date [...] degree (e.g., MA, MS, Ana Lilia, MEd, QUALITY MANAGEMENT NURSE, GORDO) 02/15/2022 Sex and Gender Information Value Date Recorded Sex Assigned at Male 04/23/2018 1:23 PM CDT Gender Identity Male 04/23/2018 1:23 PM CDT Sexual Orientation Straight 04/23/2018 1: 23 PM CDT documented as of this encounter Plan of Treatment Upcoming Encounters Date Type Department Care Team (Latest Contact Info) Description 03/23/2024 7:30 AM CDT Clinical Communication Virtual Review in [place], [place] 200 [place] [address] 03/24/2024 9:20 AM CDT Lab Department of Infusion Therapy in [place], [place] [address] [place] [phone] eNd Alegria M.D. [address] [place] [phone] 03/24/2024 11:00 AM CDT Appointment Department of Radiology, [facility], in [place], [place] [address] [place] [address] Ned Alegria M.D. [address] [place] [phone] 03/24/2024 3:30 PM CDT Office Visit Department of Oncology in [place], [place] [address] [place] [address] Ned Alegria M.D. [address] [place] [phone] documented as of this encounter Goals Goal Patient Goal Type Associated Problems Recent Progress Patient-Stated? Author Your pain? 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 Note: 05/24/2021: [...] documented as of this encounter Care Teams Fur Sewer Relationship Specialty Start Date End Date Elsewhere, Pcp PCP - General Internal Medicine 10/14/22 documented as of this encounter
--- OUTSIDE RECORDS SUMMARY | 2023-12-31 10:48 | XMS_ITS | Encounter Summary ---
Author Name Unknown Organization [facility] Address [address] [place] [address] Care Team Providers Care Test Skein Winder Name Role Phone Elsewhere, Pcp Primary Care [...] without IV Contrast Giorgio Fishman M.D. 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 [address] [place] [address] [facility] Referral ID Status Reason Start Date Expiration Date Visits Re quested Visits Authorized [id number] Closed 01/02/2023 01/02/2024 1 1 GY ENGINEER Encounter Details Date Type Department Care Team (Late st Contact Info) Description 01/02/2023 Orders Only Department of Oncology in [place], [place] [address] [place] [address] Giorgio Fishman M.D. [address] [place] [phone] Secondary Malignant Neoplasm Of Lung Laterality Unknown [...] week 02/15/2022 How often do you attend catholic or adventist serv ices? Never 02/15/2022 Do you belong to any clubs o r organizations such as catholic groups, unions, fraternal or athletic groups, [...] in a long term (including now)? No 02/15/2022 Nutrition Answer Date [...] degree (e.g., MA, MS, Ana Lilia, MEd, UPHOLSTERED GOODS CRAFTER, GORDO) 02/15/2022 Sex and Gender Information Value Date Recorded Sex Assigned at Male 04/23/2018 1:23 PM CDT Gender Identity Male 04/23/2018 1:23 PM CDT Sexual Orientation Straight 04/23/2018 1: 23 PM CDT documented as of this encounter Plan of Treatment Upcoming Encounters Date Type Department Care Team (Latest Contact Info) Description 03/23/2024 7:30 AM CDT Clinical Communication Virtual Review in [place], [place] [address] [place] [address] 03/24/2024 9:20 AM CDT Lab Department of Infusion Therapy in [place], [place] [address] [place] [address] Ned Alegria M.D. [address] [place] [address] 03/24/2024 11:00 AM CDT Appointment Department of Radiology, [facility], in [place], [place] [address] [place] [address] Ned Alegria M.D. [address] [place] [phone] 03/24/2024 3:30 PM CDT Office Visit Department of Oncology in [place], [place] [address] [place] [address] Ned Alegria M.D. 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 Author Your pain? Symptom Management 9(11/20/2022 2:41 PM ENERGY ENGINEER) No Phyllis-Girma Bush, R.N., O.C.N. Note: 05/24/2021: Pain algorithm completed. [facility] 05/24/2021: Followup 06/07 [...] response to interval treatment Giorgio Fishman M.D. [facility] [place] PROCEDURES * (ABNORMAL) CEA (Carcinoembryonic Antigen) (02/03/2023 10:03 AM CDT) Carcinoembryonic Ag (CEA), S 8.2(H) ng/mL 02/03/2023 3:09 PM CDT [facility] Comment: ----REFERENCE VALUE---- <=3.0 (Non-smokers) Some smokers may have elevated CEA, usually <5.0. ----ADDITIONAL INFORMATION---- The testing method is an immunoenzymatic assay manufactured by [employer] and performed on the [employer] 800. ? Values obtained with different assay methods or kits may be different and cannot be used interchangeably. ? Test results cannot be interpreted as absolute evidence for the presence or absence of malignant disease. Blood (Blood, Venous) 02/03/2023 10:03 AM CDT 02/03/2023 2:18 PM CDT Giorgio Fishman M.D. LAB BLOOD ADD-ON [facility] [address] [place] [address] [facility] [address] [place] [address] * Bilirubin, Direct (02/03/2023 9:37 AM CDT) Bilirubin, Direct, S <0.2 0.0 - 0.3 mg/dL 02/03/2023 11:09 AM CDT DTL Blood (Blood, Venous) 02/03/2023 9:37 AM CDT 02/03/2023 10:38 AM CDT Giorgio Fishman M.D. LAB BLOOD ADD-ON Performing Organization Address City/[facility]/ZIP Co de Phone Number [facility] [address] [place] [address], [facility] [address] [place] [address] * (ABNORMAL) Comprehensive Metabolic Panel (02/03/2023 9:37 [...] Fishman M.D. LAB BLOOD ADD-ON [facility] [address] [place] [address], [facility] [address] [place] [address] * (ABNORMAL) CBC with Differential, Blood (02/03/2023 [...] Fishman M.D. LAB BLOOD ADD-ON [facility] [address] [place] [address], [facility] [address] [place] [address] documented in this encounter Visit Diagnoses Diagnosis [...] documented as of this encounter Care Teams Test Skein Winder Relationship Specialty Start Date End Date Elsewhere, Pcp PCP - General Internal Medicine 10/14/22 documented as of this encounter
--- OUTSIDE RECORDS SUMMARY | 2023-12-31 10:48 | XMS_ITS | Encounter Summary ---
Author Name Unknown Organization [facility] Address [address] [place] [address] Care Team Providers Care Distribution Analyst Name Role Phone Elsewhere, Pcp Primary Care Provider Unavailabl e Reason for Visit * Reason Onset Date Comments 01/07/23 [facility] 01/07/2023 Encounter Details Date Type Department Care Team (Latest Contact Info) Description 01/07/2023 Clinical Communication Department of Oncology in [place], [place] [address] [place] [address] Binta Staples, RAlba 01/07/23 [facility] Social [...] week 02/15/2022 How often do you attend worship or confucianism serv ices? Never 02/15/2022 Do you belong [...] slept in a retirement (including now)? No 02/15/2022 Nutrition Answer Date [...] degree (e.g., MA, MS, Ana Lilia, MEd, GUM REMOVER, GORDO) 02/15/2022 Sex and Gender Information Value Date Recorded Sex Assigned at Male 04/23/2018 1:23 PM CDT Gender Identity Male 04/23/2018 1:23 PM CDT Sexual Orientation Straight 04/23/2018 1: 23 PM CDT documented as of this encounter Plan of Treatment Upcoming Encounters Date Type Department Care Team (Latest Contact Info) Description 03/23/2024 7:30 AM CDT Clinical Communication Virtual Review in [place], [place] [address] [place], [place] [phone] 03/24/2024 9:20 AM CDT Lab Department of Infusion Therapy in [place], [place] [address] [place] [phone] Ned Alegria M.D. [address] [place] [phone] 03/24/2024 11:00 AM CDT Appointment Department of Radiology, [facility], in [place], [place] [address] [place] [address] Ned Alegria M.D. [address] [place] [address] 03/24/2024 3:30 PM CDT Office Visit Department of Oncology in [place], [place] [address] [place] [phone] Ned Alegria M.D. [address] [place] [address] documented as of this encounter Goals Goal Patient Goal Type Associated Problems Recent Progress Patient-Stated? Author Your pain? 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 Note: [...] EXTERNAL LAB RESULTS Routine 01/06/2023 10:15 AM ASSISTANT GUEST SERVICES MANAGER documented in this encounter Results * (ABNORMAL) Hematology/Oncology - Blood, External Lab Results (01/06/2023 10:15 AM ASSISTANT GUEST SERVICES MANAGER) EXT Hemoglobin 13.9 13.5 - 17.5 OTHER (SPECIFY IN FACILITY REHAB DIRECTOR) EXT Leukocytes 5.88 4.50 - 11.00 OTHER (SPECIFY IN FACILITY REHAB DIRECTOR) EXT Absolute Neutrophil Count 4.02 1.7 - 7.0 OTHER (SPEC RODOLFO IN FACILITY REHAB DIRECTOR) EXT Platelet Count 97(A) 140 - 440 OTHER (SPECIFY IN FACILITY REHAB DIRECTOR) EXT AST 30 12 - 35 OTHER (SPE CIFY IN FACILITY REHAB DIRECTOR) EXT ALT 40 4 - 50 OTHER (SPE CIFY IN FACILITY REHAB DIRECTOR) EXT Alkaline Phosphatase 88 40 - 150 OTHER (SPECIFY IN FACILITY REHAB DIRECTOR) EXT Bilirubin, Total 0.6 0.1 - 1.5 mg/dL OTHER (SPECIFY IN FACILITY REHAB DIRECTOR) EXT Albumin 4.0 3.3 - 5.0 g/dL OTHER (SPECIFY IN FACILITY REHAB DIRECTOR) EXT Sodium 137 135 - 149 mmol/L OTHER (SPECIFY IN FACILITY REHAB DIRECTOR) EXT Potassium 4.2 3.6 - 5.1 OTHER (SPECIFY IN FACILITY REHAB DIRECTOR) EXT Creatinine 0.8 0.5 - 1.5 mg/dL OTHER (SPECIFY IN FACILITY REHAB DIRECTOR) Blood 01/06/2023 10:1 5 AM ASSISTANT GUEST SERVICES MANAGER Historical Provider LAB BLOOD NON ADD-ON OTHER (SPECIFY IN FACILITY REHAB DIRECTOR) N/A documented in this encounter Visit Diagnoses Not on filedocumented in this encounter Additional Health Concerns Assessment Noted Time PHQ-9 Depression Total Score: 7 05/26/20 18 10:22 PM CDT documented as of this encounter Care Teams Distribution Analyst Relationship Specialty Start Date End Date Elsewhere, Pcp PCP - General Internal Medicine 10/14/22 documented as of this encounter
--- OUTSIDE RECORDS SUMMARY | 2023-12-31 10:48 | XMS_ITS | Encounter Summary ---
Author Name Unknown Organization [facility] Address [address] [place] [address] Care Team Providers Care Car Repairman Name Role Phone Elsewhere, Pcp Primary Care [...] without IV Contrast Giorgio Fishman M.D. 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 [address] [place] [address] [facility] Referral ID Status Reason Start Date Expiration Date Visits Re quested Visits Authorized [id number] Closed 01/02/2023 01/02/2024 1 1 Encounter Details Date Type Department Care Team (Latest Contact Info) Description 02/03/2023 9:59 AM CDT - 02/03/2023 11:59 PM CDT Hospital Encounter Department of Radiology, [facility], in [place], [place] [address] [place] [address] Giorgio Fishman M.D. [address] [place] [address] Secondary Malignant Neoplasm Of Lung [...] Score 0 04/25/2019 [facility] Questionnaire Answer Date Recorded [...] degree (e.g., MA, MS, Ana Lilia, MEd, SOCIAL SCIENCES DEPARTMENT CHAIR, GORDO) 02/15/2022 Sex and Gender Information Value [...] mg by mouth daily. 0 06/19/2022 02/25/2023 omega 9-[id number]-[id number]-fish oil 1,000 mg (120 mg-180 mg) capsule [...] AM CDT Clinical Communication Virtual Review in [address] [address] 03/24/2024 9:20 AM CDT Lab Department of Infusion Therapy in [place], [place] [address] [place] [address] Ned Alegria M.D. [address] [place] [phone] 03/24/2024 11:00 AM CDT Appointment Department of Radiology, [facility], in [place], [place] [address] [place] [address] Ned Alegria M.D. [address] [place] [phone] 03/24/2024 3:30 PM CDT Office Visit Department of Oncology in [place], [place] [address] [place] [address] Ned Alegria M.D. [address] [place] [phone] documented as of this encounter Goals Goal Patient Goal Type Associated Problems Recent Progress Patient-Stated? Author Your pain? 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 Note: 05/24/2021: Pain algorithm completed. [...] line care, Prior to discharge, Starting on 02/03/23 at 1028, For 1 dose, Implanted Vascular [...] documented as of this encounter Care Teams Car Repairman Relationship Specialty Start Date End Date Elsewhere, Pcp PCP - General Internal Medicine 10/14/22 documented as of this encounter
--- OUTSIDE RECORDS SUMMARY | 2023-12-31 10:48 | XMS_ITS | Encounter Summary ---
Author Name Unknown Organization [facility] Address [address] [place] [address] Care Team Providers Care Side Seam Machine Operator Name Role Phone Elsewhere, Pcp Primary Care Provider Unavailabl e Reason for Visit * Outpatient (Routine) - Closed Specialty Diagnoses / Procedures Referred By Contlucas t Referred To Contact Pain Medicine Ella Potter M.D. [address] [place] [phone] [facility] Referral ID Status Reason Start Date Expiration Date Visits Re quested Visits Authorized [id number] Closed 10/16/2022 10/15/2025 1 1 Encounter Details Date Type Department Care Team (Late st Contact Info) Description 02/03/2023 2:00 PM CDT Office Visit Division of Pain Medicine in [place], [place] [address] [place] [phone] Ella Potter M.D. Pain Lumbar Myofascial (Primary [...] 02/03/2023 How often do you attend chur [employer] or hinduism services? Never 02/03/2023 Do you [...] Answer Date Recorded PHQ-2 Score 0 04/25/2019 [facility] of Occupat ional Health - Occupational Stress [...] degree (e.g., MA, MS, Ana Lilia, MEd, GRAVEL ROOFER, GORDO) 02/15/2022 Sex and Gender Information Value [...] in detail with Dr. Garcia, Pain Medicine Ingot Supervisor, who is in agreement with the above. Ella Potter MD Pain Medicine Fellow I personally spent 25 minutes in care of the patient today. Time includes both non face to face andface to face patient care. documented in this encounter Plan of Treatment Upcoming Encounters Date Type Department Care Team (Latest Contact Info) Description 03/23/2024 7:30 AM CDT Clinical Communication Virtual Review in [address] [address] 03/24/2024 9:20 AM CDT Lab Department of Infusion Therapy in [address] [address] Ned Alegria M.D. [address] [place] [phone] 03/24/2024 11:00 AM CDT Appointment Department of Radiology, [facility], in [address] [address] Ned Alegria M.D. [address] [place] [phone] 03/24/2024 3:30 PM CDT Office Visit Department of Oncology in [address] [phone] Ned Alegria M.D. [address] [place] [address] documented as of this encounter Goals Goal Patient Goal Type Associated Problems Recent Progress Patient-Stated? Author Your pain? 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 Note: 05/24/2021: [...] that his need for medication may change. [facility] 06/07/2021: Pain rating over [...] documented as of this encounter Care Teams Side Seam Machine Operator Relationship Specialty Start Date End Date Elsewhere, Pcp PCP - General Internal Medicine 10/14/22 documented as of this encounter
--- OUTSIDE RECORDS SUMMARY | 2023-12-31 10:48 | XMS_ITS | Encounter Summary ---
Author Name Unknown Organization [facility] Address [address] [place] [address] Care Team Providers Care Cloud Architect Name Role Phone Elsewhere, Pcp Primary Care Provider Unavailabl e Reason for Visit * Reason Onset Date Comments 01/17 labs only 01/17/2023 Encounter Details Date Type Department Care Team (Late st Contact Info) Description 01/17/2023 Clinical Communication Department of Oncology in [place], [place] [address] [place] [phone] Sandra Robbins M.SCandidoN., R.N. [address] [place] [phone] 01/17 labs only Social History Tobacco Use [...] week 02/15/2022 How often do you attend mormonism or restorationism serv ices? Never 02/15/2022 Do [...] Date Recorded PHQ-2 Score 0 04/25/2019 [facility] of Occupat ional Health - Occupational Stress [...] degree (e.g., MA, MS, Ana Lilia, MEd, TELEVISION ENGINEERING TEACHER, GORDO) 02/15/2022 Sex and Gender Information Value Date Recorded Sex Assigned at Male 04/23/2018 1:23 PM CDT Gender Identity Male 04/23/2018 1:23 PM CDT Sexual Orientation Straight 04/23/2018 1: 23 PM CDT documented as of this encounter Plan of Treatment Upcoming Encounters Date Type Department Care Team (Latest Contact Info) Description 03/23/2024 7:30 AM CDT Clinical Communication Virtual Review in [place], [place] [address] [place] [address] 03/24/2024 9:20 AM CDT Lab Department of Infusion Therapy in [address] [address] Ned Alegria M.D. [address] [place] [phone] 03/24/2024 11:00 AM CDT Appointment Department of Radiology, [facility], in [place], [place] [address] [place] [address] Ned Alegria M.D. [address] [place] [phone] 03/24/2024 3:30 PM CDT Office Visit Department of Oncology in [place], [place] [address] [place] [address] Ned Alegria M.D. [address] [place] [phone] documented as of this encounter Goals Goal Patient Goal Type Associated Problems Recent Progress Patient-Stated? Author Your pain? Symptom Management 9(11/20/2022 2:41 PM VENDOR ANALYST) Raisa Ferguson-Girma Bush RCandidoN., O.C.N. Note: 05/24/2021: Pain algorithm completed. [facility] 05/24/2021: Followup 06/07 via portal [...] documented as of this encounter Care Teams Cloud Architect Relationship Specialty Start Date End Date Elsewhere, Pcp PCP - General Internal Medicine 10/14/22 documented as of this encounter
--- OUTSIDE RECORDS SUMMARY | 2023-12-31 10:48 | XMS_ITS | Encounter Summary ---
Author Name Unknown Organization [facility] Address [address] [place] [address] Care Team Providers Care Battery Assembler Plastic Name Role Phone Elsewhere, Pcp Primary Care Provider Unavailabl e Encounter Details Date Type Department Care Team (Late st Contact Info) Description 02/03/2023 9:30 AM CDT Lab Department of Infusion Therapy in [place], [place] [address] [place] [address] Giorgio Fishman M.D. [address] [place] [address] Secondary Malignant Neoplasm Of Lung Laterality Unknown [...] often do you attend chur ch or cheondoism services? Never 02/03/2023 Do you belong to any clubs o r organizations such as orthodoxy groups, unions, fraternal or athletic groups, or [...] degree (e.g., MA, MS, Ana Lilia, MEd, BAKING FACTORY WORKER, GORDO) 02/15/2022 Sex and Gender Information Value Date Recorded Sex Assigned at Male 04/23/2018 1:23 PM CDT Gender Identity Male 04/23/2018 1:23 PM CDT Sexual Orientation Straight 04/23/2018 1: 23 PM CDT documented as of this encounter Plan of Treatment Upcoming Encounters Date Type Department Care Team (Latest Contact Info) Description 03/23/2024 7:30 AM CDT Clinical Communication Virtual Review in [place], [place] [address] [place], [place] [address] 03/24/2024 9:20 AM CDT Lab Department of Infusion Therapy in [place], [place] [address] [place] [address] Ned Alegria M.D. [address] [place] [phone] 03/24/2024 11:00 AM CDT Appointment Department of Radiology, [facility], in [place], [place] [address] [place] [phone] Ned Alegria M.D. [address] [place] [phone] 03/24/2024 3:30 PM CDT Office Visit Department of Oncology in [place], [place] [address] [place] [address] Ned Alegria M.D. [address] [place] [phone] documented as of this encounter Goals Goal Patient Goal Type Associated Problems Recent Progress Patient-Stated? Author Your pain? 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 Note: 05/24/2021: [...] S 8.2(H) ng/mL 02/03/2023 3:09 PM CDT [facility] Comment: ----REFERENCE VALUE---- <=3.0 (Non-smokers) Some smokers may have elevated CEA, usually <5.0. ----ADDITIONAL INFORMATION---- The testing method is an immunoenzymatic assay manufactured by [employer]. and performed on the [employer] DiscoveryI 800. ? Values obtained with different assay methods or kits may be different and cannot be used interchangeably. ? Test results cannot be interpreted as absolute evidence for the presence or absence of malignant disease. Blood (Blood, Venous) 02/03/2023 10:03 AM CDT 02/03/2023 2:18 PM CDT Giorgio Fishman M.D. LAB BLOOD ADD-ON Performing Organization Address [facility]/ZIP Co de Phone Number [facility] [address] [place] [address] [facility] [address] [place] [address] * Bilirubin, Direct (02/03/2023 9:37 AM CDT) Bilirubin, Direct, S <0.2 0.0 - 0.3 mg/dL 02/03/2023 11:09 AM CDT DTL Blood (Blood, Venous) 02/03/2023 9:37 AM CDT 02/03/2023 10:38 AM CDT Giorgio Fishman M.D. LAB BLOOD ADD-ON Performing Organization Address [facility]/ZIP Co de Phone Number [facility] [address] [place] [address], [facility] [address] [place] [address] * (ABNORMAL) Comprehensive Metabolic Panel (02/03/2023 9:37 [...] CDT Giorgio Fishman M.D. LAB BLOOD ADD-ON [facility] [address] [place] [address], [facility] DTL [facility] [address] [place] [address] * (ABNORMAL) CBC with Differential, Blood (02/03/2023 [...] CDT Giorgio Fishman M.D. LAB BLOOD ADD-ON [facility] [address] [place] [address], [place] DTL [facility] [address] [place] [address] documented in this encounter Visit Diagnoses Diagnosis [...] documented as of this encounter Care Teams Battery Assembler Plastic Relationship Specialty Start Date End Date Elsewhere, Pcp PCP - General Internal Medicine 10/14/22 documented as of this encounter
== END 2023-12-31 10:38 | disposition home or self-care (01) ==
LOC: RAD 10:37
PROVIDERS: PCP Family Medicine; Visit Provider Clinical Nurse Specialist
DX: R10.9 Unspecified abdominal pain (principal); R19.7 Diarrhea, unspecified; C20 Malignant neoplasm of rectum
CPT/HCPCS: 74019

== ENCOUNTER 2024-03-16 16:02 | Emergency (ER) | payer BC, SELFPAY ==
[2024-03-16] VITALS (13 sets, daily range): BP systolic 113–129; BP diastolic 83–96; PULSE 120–136; RESP 18–20; TEMP 36.7; O2SAT 93–99; BMI 23.7
--- NOTE | 2024-03-16 16:30 | CT_ITS ---
Patient: YESENIA ORO Facility:?[facility] RIS Patient ID:?[id number] Site Patient ID:?[id number] Site :?[id number] Study:?CT-Chest PE PROTOCOL W/ 95CC IOSVUE 370-03/16/2024 5:40:17 PM Ordering Physician:LUIS F Final Report: INDICATION: Shortness of breath. Stage IV rectal cancer. TECHNIQUE: CT chest pulmonary angiogram acquired with 95 cc of Isovue 370 IV contrast. COMPARISON: CT chest 07/28/2023. FINDINGS: Cardiovascular structures: CT pulmonary angiogram demonstrates adequate opacification of the pulmonary arteries. No evidence of pulmonary embolus. Main pulmonary artery is normal in caliber. Thoracic aorta is normal in caliber. Heart size is within normal limits. Mediastinum and sophie: Lymphadenopathy greatest in the right paratracheal and subcarinal regions has increased. Lungs: No pneumothorax. Narrowing of the right mainstem bronchus and bronchus intermedius due to lymphadenopathy has increased. Mild narrowing of the right upper lobe bronchus is also present. Widespread pulmonary metastatic disease has progressed. A left lower lobe nodule with central cavitation is now present measuring 17 mm on image 137 of series 6, previously 10 mm. A left upper lobe nodule on image 113 is 17 mm and was 8 mm. Medial right lower lobe nodule on image 120 is 21 mm and was 10 mm. Pleura and pericardium: New small right pleural effusion. Trace left pleural fluid. No pericardial effusion. Chest wall and axilla: Right Port-A-Cath appears unchanged. Bones: Metastatic lesions with extraosseous tumor extension and pathologic fracture in the right posterior 5th rib. Upper abdomen: Stable treatment related changes in the right hepatic lobe. There are new ill-defined low-attenuation foci in the right and left hepatic lobes and in the dome, for example as seen on axial images 136, 158 and 167 of series 6, concerning for metastasis. Biliary stent extending into the left hepatic lobe. Celiac axis and upper abdominal ill-defined aortocaval lymphadenopathy on image 196 has increased. Multiple mesenteric/omental nodules have increased. Small to moderate volume upper abdominal ascites is new/increased. IMPRESSION: 1. No evidence of pulmonary embolus. 2. Widespread pulmonary metastatic disease has progressed. 3. Mediastinal lymphadenopathy has progressed and causes narrowing of the right upper lobe, right mainstem bronchus and bronchus intermedius. 4. New small right pleural effusion. Trace left pleural fluid. 5. New low-attenuation liver lesions concerning for metastasis. 6. Upper abdominal lymphadenopathy and mesenteric metastatic disease has progressed. Upper abdominal ascites is likely malignant. Dictated by Francois Hobbs MD @ 03/16/2024 6:25:37 PM Please note that all CT scans at this facility use dose modulation, iterative reconstruction, and/or weight-based dosing when appropriate to reduce radiation dose to as low as reasonably achievable. Dictated by: Francois Hobbs MD @ 03/16/2024 18:25:58 Signed by:?Francois Hobbs MD @03/16/2024 6:25:58 PM (Electronic Signature)
--- NOTE | 2024-03-16 16:33 | ED.GENADULT ---
HPI - General Adult General Chief complaint: Shortness of Breath/Dyspnea Stated complaint: Shortness of breath Time Seen by Provider: 03/16/24 16:16 Source: patient, family, RN notes reviewed and old records reviewed Mode of arrival: ambulatory Limitations: no limitations History of Present Illness HPI narrative: Patient is a 43-year-old male with a history of stage IV rectal carcinoma, currently under palliative care. Last week, on I believe the , he had an ERCP done at [facility] and had a biliary stent placed. He was seen after that in oncology clinic because of uncontrolled pain. He has had severe abdominal pain for quite some time, he was at that time taking 2.5 mg of methadone twice a day and Dilaudid 4 mg q.4 hours p.r.n.. As of his clinic visit he has not really been taking any of his pain medications and once he was put back on those he was improved. His provides most of the history, and says that over the past couple of days he has been having increasing problems with shortness of breath and they feel his abdominal girth is increasing. He did have a paracentesis once previously. He met with palliative care via video yesterday and they scheduled another paracentesis for him on . He took his methadone this morning, but has not taken any Dilaudid as he says his pain was not that bad, but now he feels like it has ramped up and he would like Dilaudid here. He has not had a fever that he knows of. He denies chest pain or cough. He has not had any unusual leg pain or swelling. Abdominal pain is the same as what he has been having for quite some time now. Related Data Home Medications Medication Instructions Recorded Confirmed acetaminophen 500 mg capsule 500 mg PO Q6H PRN 05/16/22 03/11/24 ascorbic acid (vitamin C) 500 mg 500 mg PO DAILY 05/16/22 03/11/24 tablet cholecalciferol (vitamin D3) 125 5,000 unit PO DAILY 05/16/22 03/11/24 mcg (5,000 unit) capsule multivitamin 1 tab PO DAILY 05/16/22 03/11/24 omega 4-zqf-wgo-fish oil 1,000 mg 2 cap PO DAILY 05/16/22 03/11/24 (120 mg-180 mg) capsule (Fish Oil) pantoprazole 40 mg tablet,delayed 40 mg PO DAILY 05/16/22 03/11/24 release turmeric 100 mg-ronaldo 150 1 cap PO DAILY 05/16/22 03/11/24 mg-olive 50 mg-oreg 150 mg-capryl capsule ibuprofen 200 mg capsule 600 mg PO Q6H PRN 09/26/23 03/11/24 melatonin 10 mg capsule 10 mg PO HS 09/26/23 03/11/24 nitroglycerin 0.4 mg sublingual 0.4 mg sublingual Q5-15M PRN 09/26/23 03/11/24 tablet (Nitrostat) hydromorphone 4 mg tablet 4 mg PO Q4-6H PRN 09/30/23 03/11/24 (Dilaudid) doxycycline hyclate 100 mg capsule 100 mg PO BID PRN 10/14/23 03/11/24 pregabalin 25 mg capsule 25 mg PO QDAY 12/08/23 03/11/24 clobetasol 0.05 % shampoo 1 applic topical DAILY PRN 12/18/23 03/11/24 hydrocortisone 2.5 % topical 1 applic topical BID PRN 12/18/23 03/11/24 ointment methadone 5 mg tablet 2.5 mg PO BID chronic pain 12/18/23 03/11/24 olanzapine 5 mg tablet 5 mg PO HS PRN chemotherapy 12/18/23 03/11/24 related nausea prochlorperazine maleate 10 mg 10 mg PO TID PRN nausea or vomiting 12/18/23 03/11/24 tablet albuterol 90 mcg/actuation aerosol 90 mcg inhalation Q6H PRN 01/05/24 03/11/24 inhaler amlodipine 10 mg tablet 10 mg PO QAM 01/05/24 03/11/24 cyanocobalamin (vitamin B-12) 1,000 mcg PO DAILY 01/05/24 03/11/24 1,000 mcg capsule dexamethasone 4 mg tablet 4 mg PO QDAY prevent chemotherapy 01/05/24 03/11/24 nausea granisetron HCl 1 mg tablet 1 mg PO Q12H PRN nausea/vomiting 01/05/24 03/11/24 naloxone 4 mg/actuation nasal 4 mg intranasal Q2-3M PRN 01/05/24 03/11/24 spray (Narcan) Lactobacillus acidophilus 0.5 mg 100 mmu cells PO QDAY 02/25/24 03/11/24 (100 million cell) tablet Previous Rx's Medication Instructions Recorded ondansetron 8 mg disintegrating 8 mg PO TID PRN nausea and 12/02/22 tablet vomiting #30 tabs lorazepam 0.5 mg tablet 0.5 - 1 mg (1 - 2 x 0.5 mg) PO Q4H 01/08/23 PRN nausea and vomiting #40 tabs bismuth subsalicylate 262 mg/15 mL 524 mg (30 mL) PO Q30-60M PRN 12/17/23 oral suspension (Diarrhea Relief diarrhea #473 mL (bismuth subsalicylate)) loperamide 2 mg capsule 4 mg (2 x 2 mg) PO ACHS #120 caps 12/21/23 simethicone 80 mg chewable tablet 160 mg (2 x 80 mg) PO Q4H PRN 12/21/23 Flatulence #240 tabs mupirocin 2 % topical ointment 1 applic topical TID #15 grams 01/29/24 diphenoxylate-atropine 2.5 1 - 2 tab PO QID PRN diarrhea #45 02/09/24 mg-0.025 mg tablet (Lomotil) tabs potassium chloride 20 mEq 20 meq PO TID low potassium #60 02/09/24 tablet,extended release tabs Allergies Allergy/AdvReac Type Severity Reaction Status Date / Time capecitabine Allergy Severe Chest Pain Verified 03/11/24 11:44 Review of Systems Status of ROS: Reports: 10 or more systems reviewed and unremarkable except as noted in History and below [facility] Medical History Splenic mass ?R16.1 - Splenomegaly, not elsewhere classified (ICD-10) Rebound abdominal tenderness ?R10.829 - Rebound abdominal tenderness, unspecified site (ICD-10) Transaminitis ?R74.01 - Elevation of levels of liver transaminase levels (ICD-10) Diarrhea ?R19.7 - Diarrhea, unspecified (ICD-10) Rectal cancer ?C20 - Malignant neoplasm of rectum (ICD-10) 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 ?R94.138 - Abnormal results of other function studies of peripheral nervous system (ICD-10) Chronic pain disorder ?G89.4 - Chronic pain syndrome (ICD-10) Anxiety ?F41.9 - Anxiety disorder, unspecified (ICD-10) Neuroma of thoracic region ?D36.14 - Benign neoplasm of peripheral nerves and autonomic nervous system of thorax (ICD-10) Hyponatremia ?E87.1 - Hypo-osmolality and hyponatremia (ICD-10) Gastroenteritis ?K52.9 - Noninfective gastroenteritis and colitis, unspecified (ICD-10) Dehydration ?E86.0 - Dehydration (ICD-10) Acute coronary syndrome ?I24.9 - Acute ischemic heart disease, unspecified (ICD-10) Fracture of proximal end of humerus ?S42.209A - Unspecified fracture of upper end of unspecified humerus, initial encounter for closed fracture (ICD-10) Coronary vasospasm ?I20.1 - Angina pectoris with documented spasm (ICD-10) Chest wall pain ?R07.89 - Other chest pain (ICD-10) Surgical History Status post ileostomy (08/21/18) ?Z93.2 - Ileostomy status (ICD-10) History of robot-assisted laparoscopic radical prostatectomy ?Z90.79 - Acquired absence of other genital organ(s) (ICD-10) S/P radiation therapy (~08/2018) ?Z92.3 - Personal history of irradiation (ICD-10) Social History Narrative: with children. Works at [employer] as the [employer]. Enjoys golfing. What is your current living situation?: I presently have a place to live Problems where you live: no known problems Problems where you live details: n/a In the past 12 months, utilities in danger of being shut off: no In past 12 months, lack of transportation kept you from medical appts, meetings, work, or getting things needed for daily living: no In the past 12 mos, have been you worried that your food would run out before you had money to buy more?: never true In the past 12 mos, the food you bought just didn't last and you didn't have money to buy more?: never true Are you following a diet prescribed by a doctor: No Are you following a special diet: Yes (Focusing on increasing calories.) Highest level of school completed/degree received: Master's degree Smoking Status: Never smoker Do you use any of these nicotine containing products: None Second hand tobacco smoke exposure: No How often do you have a drink containing alcohol: monthly or less How many standard drinks containing alcohol do you have on a typical day: 1 or 2 How often do you have six or more drinks on one occasion: Never AUDIT-C Alcohol total score: 1 Non-prescribed substance use: marijuana (any form) Non-prescribed substance use details: Gummies Caffeine: Yes (2 cups of coffee) How often does anyone, including family, friends and others, physically hurt you: never How often does anyone, including family, friends and others, insult or talk down to you: never How often does anyone, including family, friends and others, threaten you with harm: never How often does anyone, including family, friends and others, scream or curse at you: never service: No Exam Narrative: Exam Narrative: Vital signs as noted above. In general, an alert, fatigued, chronically ill-appearing male. Head: Normocephalic, atraumatic. Eyes: Pupils are equal reactive. Extraocular movements are full. Conjunctivae are normal. ENT: Mucous membranes are moist. Neck: Supple without lymphadenopathy. Heart: Tachycardic and regular. Lungs: Breath sounds are decreased at both bases, right greater than left. Few crackles noted at the left base. Upper lung judge are clear. No wheezes, no increased work of breathing. Abdomen: Protuberant and soft, seemingly nontender to palpation. Exam is consistent with mild to moderate ascites. Extremities: Well perfused. No edema. No calf tenderness. Pulses intact. Neurologic: Patient is alert and oriented to person and place. Speech is fluent. Face is symmetric. Moves all extremities equally. Affect: Flat. Skin: Warm and dry. Well perfused. Const: Vital Signs, click to edit/add: Vital Signs - 24 hr 03/16/24 16:08 03/16/24 17:04 03/16/24 17:05 Temperature 98.1 F Pulse Rate 121 H 122 H Pulse Rate [Pulse Oximeter] 120 H Respiratory Rate 20 Blood Pressure Blood Pressure [Ri ght Upper Arm] 129/96 H Pulse Oximetry 99 97 97 Oxygen Delivery Me thod Room Air 03/16/24 17:15 03/16/24 17:37 03/16/24 17:45 Temperature Pulse Rate 125 H 129 H 129 H Pulse Rate [Pulse Oximeter] Respiratory Rate Blood Pressure Blood Pressure [Ri ght Upper Arm] Pulse Oximetry 98 96 95 Oxygen Delivery Me thod 03/16/24 18:00 03/16/24 18:01 03/16/24 18:15 Temperature Pulse Rate 134 H 134 H 133 H Pulse Rate [Pulse Oximeter] Respiratory Rate 18 Blood Pressure 113/83 Blood Pressure [Ri ght Upper Arm] Pulse Oximetry 95 95 94 Oxygen Delivery Me thod Room Air Documenting provider has reviewed patient's vital signs: yes Course Course ED Course: Patient presents with worsening shortness of breath, chronic abdominal pain in the setting of metastatic rectal cancer. He is tachycardic here and this is apparently fairly common for him. His O2 sats are normal. We talked about pulmonary embolism as a possible diagnosis, he has been rule out many times previously, they would prefer just to do CT scan verses trying to look at a D-dimer. I think that is reasonable. Will access his port and give Dilaudid IV for pain control. I have reviewed all of his recent records in our system. This time, he does not have tense ascites, I do not think paracentesis for ascites alone would be beneficial. Will see how his lungs look on chest imaging and see whether he has concomitant pleural effusion as well. Other diagnostic considerations include pneumonia, congestive heart failure, anemia, acute coronary syndrome, among others. He does have ascites and abdominal pain, but this is the same abdominal pain that he has had for quite some time, unrelated to the ascites, and I think SBP is relatively unlikely as a cause. Labs are notable for a white blood cell count of 4.7 and hemoglobin of 13.1, platelets are not surprisingly low at 73,000 three thousand. INR is normal. Venous gas shows a mild respiratory alkalosis with a pH of 7.46 and a pCO2 of 37. Bicarb is 26. Sodium is little low at 131 remainder of the metabolic panel is normal. His LFTs show a total bilirubin of 1.9, direct of 0.9, AST of 97 ALT of 113 and alk-phos of 754. However, these are all improved relative to the past week. CRP mildly elevated at 5, BNP is less than 20. Lipase normal at 48. Point of care troponin of 0. He remains mildly tachycardic, but again this appears to be pretty typical for him. He had a CT scan of the chest with contrast. This is read as follows by Radiology: FINDINGS: Cardiovascular structures: CT pulmonary angiogram demonstrates adequate opacification of the pulmonary arteries. No evidence of pulmonary embolus. Main pulmonary artery is normal in caliber. Thoracic aorta is normal in caliber. Heart size is within normal limits. Mediastinum and sophie: Lymphadenopathy greatest in the right paratracheal and subcarinal regions has increased. Lungs: No pneumothorax. Narrowing of the right mainstem bronchus and bronchus intermedius due to lymphadenopathy has increased. Mild narrowing of the right upper lobe bronchus is also present. Widespread pulmonary metastatic disease has progressed. A left lower lobe nodule with central cavitation is now present measuring 17 mm on image 137 of series 6, previously 10 mm. A left upper lobe nodule on image 113 is 17 mm and was 8 mm. Medial right lower lobe nodule on image 120 is 21 mm and was 10 mm. Pleura and pericardium: New small right pleural effusion. Trace left pleural fluid. No pericardial effusion. Chest wall and axilla: Right Port-A-Cath appears unchanged. Bones: Metastatic lesions with extraosseous tumor extension and pathologic fracture in the right posterior 5th rib. Upper abdomen: Stable treatment related changes in the right hepatic lobe. There are new ill-defined low-attenuation foci in the right and left hepatic lobes and in the dome, for example as seen on axial images 136, 158 and 167 of series 6, concerning for metastasis. Biliary stent extending into the left hepatic lobe. Celiac axis and upper abdominal ill-defined aortocaval lymphadenopathy on image 196 has increased. Multiple mesenteric/omental nodules have increased. Small to moderate volume upper abdominal ascites is new/increased. IMPRESSION: 1. No evidence of pulmonary embolus. 2. Widespread pulmonary metastatic disease has progressed. 3. Mediastinal lymphadenopathy has progressed and causes narrowing of the right upper lobe, right mainstem bronchus and bronchus intermedius. 4. New small right pleural effusion. Trace left pleural fluid. 5. New low-attenuation liver lesions concerning for metastasis. 6. Upper abdominal lymphadenopathy and mesenteric metastatic disease has progressed. Upper abdominal ascites is likely malignant. I have reviewed this with the patient and his . At this time, I do not see need for thoracentesis or emergent paracentesis. His oxygenation is normal, he does not show any signs of increased work of breathing. Shortness of breath may be related to abdominal ascites, mediastinal lymphadenopathy, or progression of pulmonary metastases. I offered to call [facility] to review all of this with his oncology care team there. He actually declined that. He says he just wants to go home. As such, he is getting an additional dose of Dilaudid. He is hooked in with the palliative care team at [facility], they have been working with him on pain management and increased his methadone to 5 mg q.12 hours along with his p.r.n. Dilaudid. It does not sound like he has great pain control regardless of this, and I have encouraged them to continue working with palliative care. He has an appointment on at [facility] for paracentesis, in 2 days time. He has an oncology appointment next week for repeat imaging and decisions about further chemotherapy. Return at any time for significant worsening, new symptoms such as fever, significant changes in abdominal pain, vomiting, worsening shortness of breath etcetera. Vital Signs Vital signs: Initial Vital Signs Temperature 98.1 F 03/16/24 16:08 Temperature Source Temporal Artery Scan 03/16/24 16:08 Pulse Rate 120 H 03/16/24 16:08 Respiratory Rate 20 03/16/24 16:08 Blood Pressure 129/96 H 03/16/24 16:08 Blood Pressure Mean 107 H 03/16/24 16:08 Blood Pressure Position Supine 03/16/24 16:08 Pulse Oximetry 99 03/16/24 16:08 Oxygen Delivery Method Room Air 03/16/24 16:08 Vital Signs Temperature 98.1 F 03/16/24 16:08 Pulse Rate 120 H 03/16/24 16:08 Respiratory Rate 20 03/16/24 16:08 Blood Pressure 129/96 H 03/16/24 16:08 Pulse Oximetry 99 03/16/24 16:08 Oxygen Delivery Method Room Air 03/16/24 16:08 Temperature 98.1 F 03/16/24 16:08 Pulse Rate 133 H 03/16/24 18:15 Respiratory Rate 18 03/16/24 18:01 Blood Pressure 113/83 03/16/24 18:01 Pulse Oximetry 94 03/16/24 18:15 Oxygen Delivery Method Room Air 03/16/24 18:01 Medications Administered Medications: Discontinued Medications Generic Name Dose Route Start Last Admin Trade Name Jacek PRN Reason Stop Dose Admin Hydromorphone HCl 2 mg 03/16/24 16:30 03/16/24 16:58 Hydromorphone 0.5 Mg/0.5 Ml Inj IVP 03/16/24 16:31 2 mg ONCE ONE Administration Prochlorperazine 10 mg 03/16/24 17:00 03/16/24 17:05 Prochlorperazine 5 Mg/Ml Vial IV 03/16/24 17:01 10 mg ONCE ONE Administration Medical Decision Making Lab Data Labs: Lab Results 03/16/24 Range/Units 17:03 WBC 4.73 (4.50-11.00) K/uL RBC 4.87 (4.30-5.90) m/uL Hgb 13.1 L (13.5-17.5) gm/dL Hct 41.0 (37.0-53.0) % MCV 84 (80-100) fL MCH 27 (26-34) pg MCHC 32 (32-36) gm/dL RDW Coeff of [place] 14.9 (11.5-15.5) % Plt Count 73 L (140-440) K/uL Neut % (Auto) 68.8 (42.0-72.0) % Lymph % (Auto) 11.8 L (20-44) % [place] % (Auto) 14.6 H (0.0-11.0) % Eos % (Auto) 4.0 (0.0-7.0) % Baso % (Auto) 0.6 (0.0-3.0) % Neut # (Auto) 3.25 (1.7-7.0) K/uL Lymph # (Auto) 0.60 L (0.90-2.90) K/uL [place] # (Auto) 0.70 (0.00-0.90) K/UL Eos # (Auto) 0.19 (0.00-0.50) K/uL Baso # (Auto) 0.03 (0.00-0.30) K/uL Abs Immat Gran (auto) 0.01 (0.00-0.30) K/uL Imm/Tot Granulo (auto) 0.2 % INR 0.95 (0.91-1.10) VBG pH 7.461 H (7.32-7.43) VBG pCO2 37 L (40-50) mmHG VBG pO2 < 30.1 (25-47) mmHG VBG HCO3 26 (21-28) mmol/L Sodium 131 L (135-149) mmol/L Potassium 4.4 (3.6-5.1) mmol/L Chloride 98 (96-114) mmol/L Carbon Dioxide 26 (20-32) mmol/L Anion Gap 7 (7-15) mEq/L BUN 10 (5-24) mg/dL Creatinine 0.5 (0.5-1.5) mg/dL Estimated Creat Clear 198.71 Estimated GFR 128 ml/min Glucose 102 (60-115) mg/dL Lactate 1.2 (0.5-1.9) mmol/L Calcium 9.0 (8.4-10.6) mg/dL Total Bilirubin 1.9 H (0.1-1.5) mg/dL Direct Bilirubin 0.9 H (0.0-0.5) mg/dL AST 97 H (12-35) U/L ALT 113 H (4-50) U/L Alkaline Phosphatase 754 H (40-150) U/L C-Reactive Protein 5.1 H (0.5-1.0) mg/dL NT-Pro-B Natriuret Pep < 20 pg/mL Total Protein 6.2 (6.0-8.3) g/dL Albumin 3.5 (3.3-5.0) g/dL Lipase 48 (23-300) U/L POC Troponin I 0.00 L (0.01-0.04) ng/ml Discharge Plan Discharge Clinical Impression: Shortness of breath Patient Disposition: Home, Self-Care Condition: Stable Instructions: Ascites (ED), Shortness of Breath (ED) Additional Instructions: Your workup today does not reveal any acute problems needing immediate attention tonight. However, should things worsen, if you feel more short of breath, developed more diffuse or severe abdominal pain, fevers, confusion or somnolence, etcetera, return at any time to the emergency department. Otherwise, paracentesis as planned on , oncology follow-up as planned next week. Prescriptions: No Action ondansetron 8 mg tablet,disintegrating 8 mg PO TID PRN (Reason: nausea and vomiting) Qty: 30 0RF Patient Comments: will be switching to granisetron when available from his pharmacy Rx Instructions: Take for nausea 24-36 hours after chemotherapy for nausea not controlled with prochlorperazine (compazine) Lactobacillus acidophilus 0.5 mg (100 million cell) tablet 100 mmu cells PO QDAY doxycycline hyclate 100 mg capsule 100 mg PO BID PRN Hold Instructions: Resume on 12/24/23. discuss with oncologist Patient Comments: has not been taking for about last week due to diarrhea Rx Instructions: takes daily 4 days in row after chemo pregabalin 25 mg capsule 25 mg PO QDAY Hold Instructions: Resume on 12/26/23. Patient Comments: has not been taking for about last week due to diarrhea Rx Instructions: 2 daily X 5 days 4 X 5 days then 6 daily bismuth subsalicylate [Diarrhea Relief (bismuth subs)] 262 mg/15 mL suspension 524 mg PO Q30-60M PRN (Reason: diarrhea) Qty: 473 0RF Rx Instructions: do not exceed 8 doses in a 24 hour period mupirocin 2 % ointment 1 applic topical TID Qty: 15 0RF Rx Instructions: Apply to affected area three times daily after 10 minute warm water soak. acetaminophen 500 mg capsule 500 mg PO Q6H PRN ascorbic acid (vitamin C) 500 mg tablet 500 mg PO DAILY Hold Instructions: Resume on 12/26/23. Patient Comments: has not been taking for about last week due to diarrhea cholecalciferol (vitamin D3) 125 mcg (5,000 unit) capsule 5,000 unit PO DAILY Hold Instructions: Resume on 12/26/23. Patient Comments: has not been taking for about last week due to diarrhea omega 4-vfs-qvt-fish oil [Fish Oil] 1,000 mg (120 mg-180 mg) capsule 2 cap PO DAILY Hold Instructions: Resume on 12/25/23. may exacerbate diarrhea Patient Comments: has not been taking for about last week due to diarrhea multivitamin Tablet 1 tab PO DAILY Hold Instructions: diarrhea Patient Comments: has not been taking for about last week due to diarrhea pantoprazole 40 mg tablet,delayed release (DR/EC) 40 mg PO DAILY wuoypbpz-pxto-nhyhi-oreg-capry 100 mg-150 mg- 50 mg-150 mg capsule 1 cap PO DAILY Hold Instructions: Resume on 12/26/23. Patient Comments: has not been taking for about last week due to diarrhea methadone 5 mg tablet 2.5 mg PO BID hydrocortisone 2.5 % ointment 1 applic topical BID PRN Rx Instructions: FOR FACE RASH clobetasol 0.05 % shampoo 1 applic topical DAILY PRN Rx Instructions: FOR RASH olanzapine 5 mg tablet 5 mg PO HS MDD 1 tab PRN (Reason: chemotherapy related nausea) Hold Instructions: Resume on 12/26/23. Patient Comments: takes for 2 nights post chemo Rx Instructions: Take 1 tab at bedtime daily days 1-4 post chemotherapy. Do not take with lorazepam. prochlorperazine maleate 10 mg tablet 10 mg PO TID PRN (Reason: nausea or vomiting) Rx Instructions: Take first for chemotherapy related nausea. loperamide 2 mg Capsule 4 mg PO ACHS Qty: 120 0RF Hold Instructions: Doctor's Order simethicone 80 mg Tablet,Chewable 160 mg PO Q4H PRN (Reason: Flatulence) Qty: 240 0RF albuterol 90 mcg/actuation aerosol 90 mcg inhalation Q6H PRN amlodipine 10 mg tablet 10 mg PO QAM cyanocobalamin (vitamin B-12) 1,000 mcg capsule 1,000 mcg PO DAILY granisetron HCl 1 mg tablet 1 mg PO Q12H PRN (Reason: nausea/vomiting) naloxone [Narcan] 4 mg/actuation spray,non-aerosol 4 mg intranasal Q2-3M PRN Rx Instructions: spray 1 dose into ONE nostril; alternate nostrils w each dose until help arrives ibuprofen 200 mg capsule 600 mg PO Q6H PRN melatonin 10 mg capsule 10 mg PO HS nitroglycerin [Nitrostat] 0.4 mg tablet, sublingual 0.4 mg sublingual Q5-15M PRN Patient Comments: had vasospasm from chemo agent about 5 years ago Rx Instructions: do not exceed 3 doses per episode hydromorphone [Dilaudid] 4 mg tablet 4 mg PO Q4-6H PRN Patient Comments: has not been taking for about last week due to diarrhea lorazepam 0.5 mg tablet 0.5 - 1 mg PO Q4H PRN (Reason: nausea and vomiting) Qty: 40 0RF dexamethasone 4 mg tablet 4 mg PO QDAY Hold Instructions: only w/ chemo Rx Instructions: take daily for 4 days, starting the day after chemotherapy. Take with food diphenoxylate-atropine [Lomotil] 2.5-0.025 mg tablet 1 - 2 tab PO QID PRN (Reason: diarrhea) Qty: 45 1RF Rx Instructions: Take 1-2 tabs every 4 hours as needed for chemo related diarrhea. Take the minimum number of doses needed. DO NOT take with imodium. Stop taking if acute onset severe abdominal pain or no BM for 24 hours. potassium chloride 20 mEq tablet extended release 20 meq PO TID Qty: 60 0RF Follow Up/Referrals: Afsaneh Carlton MD [Primary Care Provider] - Stand Alone Forms: MyHealth Info Instructions
--- OUTSIDE RECORDS SUMMARY | 2024-03-16 16:40 | XMS_ITS | Clinical Summary ---
Author Name Unknown Organization [employer] [facility] Address [place], [place] [address] Care Team Providers Care Deputy [employer] Name Role Phone Afsaneh Carlton MD Primary Care Provider [phone] Allergies Active Allergy Reactions Criticality Noted Date Comments Capecitabine Chest Pain High 02/25/2022 Medications Medication Sig Dispensed Refills Start Date End Date Status Cholecalciferol, Vitamin D3, 400 unit capsule Take 400 Units by mouth. Active omega 6-gko-ksp-fish oil 60-90-500 mg cap Take 1,000 mg by mouth. Active multivitamin (MVI) tablet Take 1 tablet by mouth. Active nitroglycerin (NITROSTAT) 0.[address] 0.4 mg under the tongue. 05/28/2018 Active acetaminophen (TYLENOL EXTRA STRGTH) 500 mg tablet Every 6 Hours as needed Active loperamide (IMODIUM) 2 mg capsule TAKE 1 TO 2 CAPSULES TWICE DAILY, 2 CAPS EVERY MORNING AND EITHER 1 OR 2 CAPS IN THE EVENING 0 09/18/2018 Active HYDROmorphone (DILAUDID) 2 mg tabletIndications:Re ctal cancer (HC) Take 1 tablet by mouth every 4 hours if needed 12 tablet 10/01/2018 Active gabapentin (NEURONTIN) 300 mg capsule Take 1 capsule by mouth 3 times daily. 90 capsule 07/13/2019 Active cyanocobalamin (VITAMIN B12) 100 mcg tablet Take 1 tablet by mouth once daily. 30 tablet 07/13/2019 Active melatonin 3 mg tablet Take 1 tablet by mouth at bedtime. 30 tablet 07/13/2019 Active pantoprazole (PROTONIX) 40 mg delayed-release tablet Take 1 Tablet by mouth once daily. 09/24/2021 Active prochlorperazine (COMPAZINE) 10 mg tablet 07/02/2021 Active oxyCODONE (ROXICODONE) 5 mg immediate release tablet Take 5-10 mg by mouth every 4 hours if needed. 05/29/2021 Active OLANzapine (ZYPREXA ZYDIS) 5 mg disintegrating tablet PLEASE SEE ATTACHED FOR DETAILED DIRECTIONS 10/15/2021 Active LORazepam (ATIVAN) 0.5 mg tab Take 0.5 mg by mouth every 6 hours if needed. 05/08/2020 Active LACTOBACILLUS ACIDOPHILUS ORAL Take 1 Capsule by mouth once daily. Active ascorbic acid, vitamin C, (VITAMIN C) 500 mg tablet Daily Active benzonatate (TESSALON) 100 mg capsule TAKE 1 CAPSULE BY MOUTH THREE TIMES A DAY FOR COUGH 12/05/2022 Active DULoxetine (CYMBALTA) 60 mg Delayed-release capsule Take 60 mg by mouth once daily. 11/15/2022 Active ondansetron (ZOFRAN ODT) 8 mg disintegrating tablet PLEASE SEE ATTACHED FOR DETAILED DIRECTIONS 12/03/2022 Active traMADoL (ULTRAM) 50 mg tablet TAKE 1 TABLET EVERY 4 (FOUR) HOURS NEEDED FOR PAIN FOR UP TO 3 DAYS INDICATIONS: ACUTE PAIN. 02/27/2022 Active albuterol HFA (PRO-AIR; VENTOLIN; PROVENTIL) 90 mcg/actuation inhalerIndications:C ough, unspecified type Inhale 1-2 Puffs by mouth every 4 hours if needed for Shortness Of Breath or Wheezing (Cough). 1 Each 12/10/2022 Active fluticasone (50 mcg per actuation) nasal solution (FLONASE)Indications :Cough, unspecified type Inhale 2 Sprays to both nostrils once daily. 16 g 2 12/10/2022 Active erythromycin ophthalmic ointment 0.5%Indications:Luis eolum externum of right lower eyelid Apply 1 Strip to right eye four times daily. 3.5 g 2 01/08/2023 Active methadone (DOLOPHINE) 5 mg tablet Take 2.5 mg by mouth two times daily. 12/18/2023 Active dexAMETHasone (DECADRON) 4 mg tablet Take 4 mg by mouth two times daily with meals. 07/18/2023 Active amLODIPine (NORVASC) 10 mg tabletIndications:HT N (hypertension) Take 1 Tablet (10 mg) by mouth once daily. 90 Tablet 1 02/05/2024 Active clobetasol 0.05% (TEMOVATE 0.05% OINTMENT) 0.05 % ointmentIndications: Paronychia of great toe Apply topically to affected area(s) two times daily. 60 g 02/05/2024 Active oseltamivir (TAMIFLU) 75 mg capsuleIndications:E xposure to influenza Take 1 Capsule (75 mg) by mouth once daily for 10 days. 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 Rectal cancer 04/16/2018 Overview: Colonoscopy 03/2018 rectal cancer, further evaluation at [facility] Colonoscopy 06/2019 inflammatory nodule at surgical anastomosis, repeat in 3 years Resolved Problems Problem Noted Date Diagnosed Date Resolved Date Pseudopolyposis of colon wit hout complication, unspecified part of colon 12/28/2021 01/08/2023 Encounters Date Type Department Care Team Description 02/26/2024 Orders Only [facility] Scanner 1 scan: (1-Ord) [facility], MRI ABD W/ AND W/O CONT, 02/26/2024 02/05/2024 2:25 PM CDT Office Visit [facility] [address] [place] [address] Afsaneh Carlton MD Toenail (Both great toes, ); Abdominal Pain 02/05/2024 Travel 12/31/[address] [facility] Scanner 1 scan: (1-Ord) [facility], XR ABD MIN 2V, 12/31/2023 12/30/[address] [facility] Staff, Other Clinical 1 scan: (1-Ord) [facility] 12/18/[address] [facility] Scanner 1 scan: (1-Ord) [facility], ABD/PELVIS, 12/18/2023 12/17/[address] [facility] Scanner 1 scan: (1-Ord) [facility], ABDOMEN LIMITED, 12/17/2023 from Last 3 Months Immunizations Name Administration [...] of Communication with Friends and Fami ly 0 02/05/2024 Financial Resource Strain Answer Date R ecorded Difficulty of Paying Living Expenses 2 02/05/2024 Difficulty of Paying Living Expenses 1 02/05/2024 Food Insecurity Answer Date Recorded Worried About Running Out of Food in the Last Ye ar 1 02/05/2024 Transportation Needs Answer Date Record ed Lack of Transportation (Medical) 1 02/05/2024 Housing Stability Answer Date Recorded Unable to Pay for Housing in the Last Year 1 02/05/2024 Sex and Gender Information Value Date Recorded Sex Assigned at Not on file Gender Identity Not on file Sexual Orientation Not on file Obstetrics History Last Filed Vital Signs Vital Sign Reading Time Taken Comments Blood Pressure 129/91 02/05/2024 2:44 PM CDT Pulse 121 02/05/2024 2:44 PM CDT Temperature 36.9 ??C (98.5 ??F) 02/28/2023 1:52 PM CD T Respiratory Rate - - Oxygen Saturation 99% 02/05/2024 2:44 PM CDT Inhaled Oxygen Concentration - - Weight 80.1 kg (176 lb 9.6 oz) 02/05/2024 2:44 P M CDT Height 179 cm (5' 10.47) 10/01/2018 8:08 AM CAR HIKER Body Mass Index 25 10/01/2018 8:08 AM CAR [facility]IKER Plan of Treatment Health Maintenance Due Date [...] 08/16/2021, 02/27/2021, 02/02/2021 Influenza for age 9-49 07/18/2024 , 08/31/2020, 08/31/2018, Additional history exists Tetanus booster 09/26/2026 09/26/2016 Tdap Completed 09/26/2016 Procedures Procedure Name Priority Date/Time Associated Diagnosis Comments SCAN-MRI INTERPRETATION 02/26/20 12:00 AM CDT SCAN-RADIOLOGY REPORT 12/31/2023 12:00 AM CAR [facility]IKER SCAN CORRESP-LABORATORY RESULTS 12/30/2023 8:08 AM CAR [facility]ER SCAN-CT INTERPRETATION 4 12:00 AM CAR [facility]IKER SCAN-ULTRASOUND REPORT 4 12:00 AM CAR [facility]ER COLONOSCOPY 07/13/2019 8:02 AM CDT from Last 3 Months or Most Recently Relevant to Health Maintenance Results * SCAN-MRI INTERPRETATION (02/26/2024 12:00 AM CDT) Anatomical Region Laterality Modality Other Scanner OTHER * SCAN-RADIOLOGY REPORT (12/31/2023 12:00 AM CAR HIKER) Anatomical Region Laterality Modality Other Scanner OTHER * SCAN CORRESP-LABORATORY RESULTS (12/30/2023 8:08 AM CAR HIKER) Narrative 12/30/2023 8:08 AM CAR HIKER Ordered by an unspecified provider. Other Clinical Staff OTHER * SCAN-CT INTERPRETATION (12/18/2023 12:00 AM CAR HIKER) Anatomical Region Laterality Modality Other Scanner OTHER * SCAN-ULTRASOUND REPORT (12/17/2023 12:00 AM CAR HIKER) Anatomical Region Laterality Modality Other Scanner OTHER * COLONOSCOPY (07/13/2019 8:02 AM CDT) 07/13/2019 8:02 AM CDT Narrative Transcriptions Mika Romo MD - 07/13/2019 8:47 AM CDT Patient Name: Luis Tabares Procedure Date: 07/13/2019 Gender: Male Date of : 1980 Admit Type: Outpatient Procedure: Colonoscopy Proceduralist: Mika Romo MD , Abril Weber (Nurse) Indications/Pre-Op Diagnosis: High risk colon cancer surveillance:Personal history of rectal cancer, Last colonoscopy:March 2018 Medications: Fentanyl 100 micrograms IV, Midazolam 4 mgIV, The level of sedation administered wasmoderate Procedure Description: The patient had risks, benefits and alternatives explained to andgave informed consent. The patient had a stable cardiopulmonary status and judged an adequate candidate for conscious sedation. The [id number] was passed through the anus and advanced tothe cecum, identified by appendiceal orifice and ileocecal valve. The colonoscopy was performed without difficulty. The patient toleratedthe procedure well. The quality of the bowel preparation was good. The ileocecal valve, appendiceal orifice, and rectum were photographed. Complications: No immediate complications. Estimated Blood Loss & Specimen: Estimated blood loss: none. Specimen collected - Yes and sent to Laboratory Findings: A post-surgical anastomosis was found on digital exam. This was foundto be patent. Pertinent negatives include no palpable rectal lesions. One 1 mm nodule was found at the anal anastomosis at 4 o'clock.Biopsies were taken with a cold forceps for histology. Metal shawn were found at the anal anastomosis. The exam was otherwise without abnormality. Impressions/Post-Op Diagnosis: - Patent post-surgical anastomosis found on digital exam. - Nodule at the anus. Biopsied. - The examination was otherwise normal. Recommendation: - Patient has a contact number available for emergencies. The signsand symptoms of potential delayed complications were discussed with the patient. Return to normal activities tomorrow. Written discharge instructions were provided to the patient. - Resume previous diet. - Continue present medications. - Await pathology results. - Repeat colonoscopy is recommended for surveillance. The colonoscopy date will be determined after pathology results from today's exambecome available for review. Moderate Sedation: Moderate (conscious) sedation was administered by the endoscopy nurse and supervised by the endoscopist. The following parameters were monitored: oxygen saturation, heart rate, respiratory rate, blood pressure, adequacy of pulmonary ventilation and reponse to care. Please refer to the [facility] medical record flowsheets and nursing notes for moderate sedation details. Total physician intraservice time was 17 minutes. Mika Romo MD 07/13/2019 8:47:35 AM This report has been signed electronically. Note Initiated On: 07/13/2019 8:02 AM Procedure Code(s): --- Professional --- 69389, Colonoscopy, flexible; with biopsy, single or multiple Diagnosis Code(s): --- Professional --- Z85.048, Personal history of other malignant neoplasm of rectum, rectosigmoid junction,and anus Z98.0, Intestinal bypass and anastomosisstatus K62.89, Other specified diseases of anus and rectum CPT copyright 2018 [employer]. All rights reserved. The codes documented in this report are preliminary and upon project development engineer reviewmay be revised to meet current compliance requirements. Scope In: 8:14:59 AM Scope Withdrawal Time 0 hours 12 minutes 39 seconds Scope Out: 8:29:58 AM Mika Romo MD PROCEDURE ORD from Last 3 Months or Most Recently Relevant to Health Maintenance Care Teams Deputy [employer] Relationship Specialty Start Date End Date Afsaneh Carlton MD [address] [place] [address] PCP - General Family Practice 02/15/22
--- OUTSIDE RECORDS SUMMARY | 2024-03-16 16:40 | XMS_ITS | Clinical Summary ---
Author Name Unknown Organization [facility] Address [address] [place] [address] Care Team Providers Care Change Agent Name Role Phone Elsewhere, Pcp Primary Care Provider Unavailabl e Source Comments Patient records contain information from all sites at [facility]. For routine questions regarding patient records, call [phone] during business hours, M-F 8:00 AM - 5:00 PM Central Time. Record requests for emergency care only can be directed to [phone] at any time.[facility] Allergies Active Allergy Reactions Criticality Noted Date Comments Capecitabine Other (see comments) High 02/25/2022 VASCULAR HEART PALPATION Medications Medication Sig Dispensed Refills Start Date End Date Status multivitamin tablet Take 1 tablet by mouth daily. Active nitroglycerin (NITROSTAT) 0.[address] 1 tablet (0.4 mg total) under the tongue every 5 (five) minutes as needed for chest pain. 25 tablet 12 05/28/20 18 Active cyanocobalamin (VITAMIN B12) 1,000 mcg tablet Take 1,000 mcg by mouth daily. Active ascorbic acid, vitamin C, (VITAMIN C) 250 mg tablet Take 250 mg by mouth daily. Active cholecalciferol (VITAMIN D3) 5,000 Unit capsule Take 5,000 Units by mouth daily. Active acetaminophen (TYLENOL) 500 mg tablet Take 2 tablets (1,000 mg total) by mouth every 6 (six) hours as needed for moderate pain or score 4-6 of 10 or severe pain or score 7-10 of 10. 30 tablet 08/03/20 20 Active naloxone (Narcan) 4 mg/actuation nasal spray Administer 1 spray (4 mg total) into one nostril every 2 (two) minutes as needed (overdose). 1 each 06/12/20 Active LACTOBACILLUS ACIDOPHILUS ORAL Take 1 capsule by mouth daily. Active docosahexaenoic acid/epa (FISH OIL ORAL) Take 2 tablets by mouth daily. Active albuterol 90 mcg/actuation inhaler INHALE 1-2 PUFFS BY MOUTH EVERY 4 HOURS IF NEEDED FOR SHORTNESS OF BREATH OR WHEEZING (COUGH). 12/10/19 23 Active benzonatate (TESSALON PERLES) 100 mg capsule 100 mg every 4 (four) hours as needed. 12/05/19 23 Active fluticasone propionate (FLONASE) 50 mcg/actuation nasal spray INHALE 2 SPRAYS TO BOTH NOSTRILS ONCE DAILY 12/10/19 Active potassium chloride (K-TAB) 20 mEq CR tablet Take 20 mEq by mouth 2 (two) times a day. 06/09/20 23 Active amLODIPine (NORVASC) 10 mg [...] nausea. 30 tablet 3 09/26/20 23 Active hydrocortisone (CORTAID) 1 % cream Apply 1 Application topically 2 (two) times a day. 30 g 3 09/26/20 23 Active OLANZapine (ZyPREXA) 5 mg [...] Fri-. 240 g 3 10/28/20 23 Active melatonin 1 mg tablet,chewable Chew 10 mg daily. 09/26/20 23 Active pantoprazole (PROTONIX) 40 mg EC tabletIndications: Malignant Neoplasm Of Rectum (HCC) take 1 tablet by mouth every day in the morning 90 tablet 1 12/10/19 24 Active diphenoxylate-atro pine (LOMOTIL) 2.5-0.025 mg per tablet Take 1 tablet by mouth 3 (three) times a day with meals. 12/16/19 24 Active loperamide (IMODIUM A-D) 2 mg capsule TAKE 1 TABLET ORALLY EVERY 4 HOURS NEEDED FOR LOOSE STOOL 12/16/19 24 Active granisetron (KYTRIL) 1 mg tablet Take 1 tablet (1 mg total) by mouth every 12 (twelve) hours as needed for nausea or vomiting. 60 tablet 01/26/20 24 Active sennosides-docusat e sodium (SENOKOT-S) 8.6-50 mg per tablet Take 1 tablet by mouth 2 (two) times a day. 03/05/20 24 Active dexAMETHasone (DECADRON) 4 mg tablet Take 1 tablet by mouth daily. Take one tab a day for 5 days and then half tab for 5 more days and stop. 14 tablet 03/06/20 24 Active HYDROmorphone (DILAUDID) 4 mg tabletIndications: Chronic Pain/Nonacute Pain Take 1-1.5 tablets (4-6 mg total) by mouth every 4 (four) hours as needed for pain Indication: Chronic Pain/Nonacute Pain. 60 tablet 03/12/20 24 Active methadone (DOLOPHINE) 5 mg tabletIndications: Chronic Pain/Nonacute Pain Take 1 tablet (5 mg total) by mouth 2 (two) times a day Indication: Chronic Pain/Nonacute Pain. 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 If ineffective, may repeat once after 30 minutes. 30 tablet 05/08/20 Discontinued(St op Taking at Discharge) TURMERIC ORAL Take 1 tablet by mouth every morning. Discontinued(St op Taking at Discharge) erythromycin (ROMYCIN) 5 mg/gram (0.5 %) ophthalmic ointment APPLY 1 STRIP TO RIGHT EYE FOUR TIMES DAILY. 01/08/20 Discontinued dexAMETHasone (DECADRON) 4 mg tablet Take 1 tablet (4 mg total) by mouth daily. Take in a.m. with food 30 tablet 3 09/26/20 Discontinued(St op Taking at Discharge) HYDROmorphone (DILAUDID) 4 mg tabletIndications: Chronic Pain/Nonacute Pain Take 1-1.5 tablets (4-6 mg total) by mouth every 4 (four) hours as needed for pain Indication: Chronic Pain/Nonacute Pain. 60 tablet 09/26/20 Discontinued(Re order) methadone dilution (DOLOPHINE) 0.5 mg/mL injection Take 5 mg by mouth. 09/30/20 Discontinued amLODIPine (NORVASC) 10 mg tablet Take 10 mg by mouth. Pt unsure about the dosage 09/26/20 Discontinued ibuprofen (ADVIL,MOTRIN) 100 mg tablet Take 600 mg by mouth as needed. 09/26/20 Discontinued doxycycline (DORYX) 75 mg EC tablet Take 100 mg by mouth. 10/14/20 Discontinued minocycline (DYNACIN) 100 mg tablet Take 100 mg by mouth 2 (two) times a day. 10/14/20 Discontinued nitroglycerin (Nitrostat) 0.[address] 0.4 mg under the tongue. 09/26/20 Discontinued pregabalin (LYRICA) 25 mg capsule Take 1 capsule (25 mg total) by mouth 2 (two) times a day for 5 days, THEN 2 capsules (50 mg total) 2 (two) times a day for 5 days, THEN 3 capsules (75 mg total) 2 (two) times a day for 5 days. 60 capsule 01/17/20 24 04/19/2 024 Discontinued(St op Taking at Discharge) pregabalin (LYRICA) 100 mg capsule Take 1 capsule (100 mg total) by mouth 2 (two) times a day. Start after you finish the 25 capsule increase 60 capsule 2 12/03/19 24 024 Discontinued(St op Taking at Discharge) azithromycin (ZITHROMAX) 500 mg tablet 12/18/19 24 024 Discontinued DULoxetine (CYMBALTA) [address] capsule Take 1 capsule by mouth daily. 11/27/19 24 024 Discontinued ibuprofen (ADVIL,MOTRIN) 200 mg tablet Take 3 tablets (600 mg total) by mouth every 6 (six) hours as needed for pain. 01/22/20 24 024 Discontinued(St op Taking at Discharge) doxycycline monohydrate (MONODOX) 100 mg capsule TAKE 1 CAPSULE (100 MG TOTAL) BY MOUTH 2 (TWO) TIMES A DAY BEFORE BREAKFAST AND DINNER. 60 capsule 3 01/30/20 24 024 Discontinued methadone (DOLOPHINE) 5 mg tabletIndications: Chronic Pain/Nonacute Pain Take 0.5 tablets (2.5 mg total) by mouth 2 (two) times a day Indication: Chronic Pain/Nonacute Pain. 30 tablet 02/05/20 24 024 Discontinued(Re order) levoFLOXacin (LEVAQUIN) 500 mg tablet Take 1 tablet (500 mg total) by mouth daily for 14 days. 14 tablet 03/08/20 24 024 Discontinued(Th erapy completed) methadone (DOLOPHINE) 5 mg tabletIndications: Chronic Pain/Nonacute Pain Take 0.5 tablets (2.5 mg total) by mouth 2 (two) times a day Indication: Chronic Pain/Nonacute Pain. 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 Resolved Problems Problem Noted Date Diagnosed Date Resolved Date Abdominal Pain 02/19/2022 02/19/2022 Myocardial Infarction Type 2 05/26/2018 05/27/2018 Overview: Capecitabine-induced coronary vasospasm Encounters Date Type Department Care Team Description 03/15/2024 8:30 AM CDT Telemedicine Department of Palliative Care in [place], [place] [address] [place] [phone] Kari Austin APRN, C.N.P., D.N.PZeke Verdin M.D. Malignant Neoplasm Of Rectum (HCC) (Primary Dx) 03/12/2024 Orders Only Division of Gastroenterology in [place], [place] [address] [place] [phone] Corrina Jaime M.D. Elevated Bilirubin (Primary Dx); Secondary Malignant Neoplasm Liver (HCC); Elevated Liver Function Test 03/08/2024 3:34 PM CDT Anesthesia Event Division of Gastroenterology in [place], [place] [address] [place] [phone] Rozman, Kun Shepard APRN, CRNA Kor, Benjamin T, M.D. 03/08/2024 2:50 PM CDT Ancillary Procedure Department of Gastroenterology 03/08/2024 2:41 PM CDT - 03/08/2024 11:59 PM CDT Hospital Encounter Department of Radiology, [facility], in [place], [place] [address] [place] [address] Tracie Tai APRN C.N.PCandido Malignant Neoplasm Of Rectum (HCC); Secondary Malignant Neoplasm Colon (HCC); Secondary Malignant Neoplasm Liver (HCC) Discharge Disposition: Home or Self Care 03/08/2024 1:46 PM CDT - 03/08/2024 2:40 PM CDT Hospital Encounter Division of Gastroenterology in [place], [place] [address] [place] [address] Viraj Mesa M.D. Martin, John A, M.D. Pearson, Randall K, M.D. Malignant Neoplasm Of Rectum (HCC); Secondary Malignant Neoplasm Colon (HCC); Secondary Malignant Neoplasm Liver (HCC) Discharge Disposition: Home or Self Care 03/08/2024 Orders Only Division of Gastroenterology in [place], [place] [address] [place] [address] Marlena Patino M.D. 03/08/2024 Orders Only Division of Gastroenterology in [place], [place] [address] [place] [address] Shaila Aparicio APRN, C.N.P., D.N.P., M.S.N. 03/04/2024 3:05 PM CDT Ancillary Procedure Department of Radiology in [place], [place] [address] [place] [address] Viraj Mesa M.D. 03/03/2024 9:24 AM CDT - 03/05/2024 3:33 PM CDT Hospital Encounter [facility], Seventh Floor [address] [place] [address] Daniela Brownlee P.A.-C., M.S. Denice Guerrero M.D. Abdominal Pain (Primary Dx); Nausea And Vomiting; Ascites; Malignant Neoplasm Of Rectum (HCC); Elevated Liver Function Test; Elevated Bilirubin Discharge Disposition: Home or Self Care 03/03/2024 Clinical Communication Division of Gastroenterology in [place], [place] [address] [place] [address] Margaret Baptiste M.D., M.S. 03/03/2024 Orders Only Division of Gastroenterology in [place], [place] [address] [place] [address] Shaila Aparicio APRN, Tristan.N.P., D.N.P., M.S.N. 03/03/2024 Orders Only Division of Gastroenterology in [place], [place] [address] [place] [phone] Sharon Villanueva M.D. 03/01/2024 Orders Only Department of Oncology in [place], [place] [address] [place] [address] Amy Neff M.D. Malignant Neoplasm Of Rectum (HCC) (Primary Dx) 02/05/2024 7:26 AM CDT - 02/05/2024 11:59 PM CDT Hospital Encounter Division of Pain Medicine in [place], [place] [address] [place] [phone] Sean Shen D.O. Pain Chest Wall; Pain Neuropathic; Pain Post Thoracotomy Chronic Discharge Disposition: Home or Self Care 01/30/2024 Refill Department of Oncology in [address] [phone] Kristi Dominique M.D. Med Refill 01/26/2024 Orders Only Department of Oncology in [address] [address] Noelle Reyes, PCandidoALuis Alberto, P.A. Malignant Neoplasm Of Rectum (HCC) (Primary Dx) 01/26/2024 Refill Department of Palliative Care in [place], [place] [address] [place] [phone] Jimbo Coe APRN, C.NNaima, D.N.P. Med Change Request 01/25/2024 Refill Department of Palliative Care in [address] [phone] Catrachita Padilla M.D., M.S. Med Refill 01/22/2024 3:30 PM DATABASES SOFTWARE CONSULTANT Telemedicine Department of Palliative Care in [address] [phone] Aylin Smith APRN, C.N.P., M.S.N. Judy Herron M.D. Malignant Neoplasm Of Rectum (HCC) (Primary Dx); Pain Cancer Associated 01/21/2024 Refill Department of Oncology in [address] [phone] Kristi Dominique M.D. Med Refill 01/14/2024 Clinical Communication Department of Spine in [address] [phone] Lilia Huggins R.N. Follow-up ([facility] is calling to complete your 3-month follow-up PROMIS-CAT questionnaires. You will receive questionnaires at different timepoints in the future. You can complete the current questionnaires in your portal and no return call is necessary. If you have any questions, please call us at: [phone]. Thank you!/) 12/24/2023 4:10 PM DATABASES SOFTWARE CONSULTANT Office Visit Department of Oncology in [address] [address] Ned Alegria M.D. 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 Malignant Neoplasm Of Rectum (HCC) (Primary Dx); Secondary Malignant Neoplasm Of Lung Laterality Unknown (HCC); Pain Cancer Associated; Palliative Care; Pain Neuropathic 12/24/2023 11:00 AM DATABASES SOFTWARE CONSULTANT Lab Department of Infusion Therapy in [address] [address] Noelle Reyes P.A.-C., P.A. 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 12/17/2023 Orders Only Pharmacy Prior Auth RO [phone] Xiomara Blood 12/16/2023 Orders Only [facility] - [place] [address] [address] Dolores Khanna from Last 3 Months Immunizations Name Administration [...] afraid of your partner or ex-partner? No 03/03/2024 Within the last year, have y ou been humiliated or emotionally abused in other ways by your partner or ex-partner? No Within the last year, have y ou been kicked, hit, slapped, or otherwise physically hurt by your partner or ex-partner? No 03/03/2024 Within the last year, have y ou been raped or forced to have any kind of sexual activity by your partner or ex-partner? No 03/03/2024 Social Connection and Isolat ion Panel [NHANES] [...] any clubs o r organizations such as gnosticism groups, unions, fraternal or athletic groups, or [...] Answer Date Recorded PHQ-2 Score 0 04/25/2019 [facility] [place] [facility] Occupat ional Health - Occupational Stress [...] the money to buy more. Never true 03/03/20 Within the past 12 months, t he food you bought just didn't last and you didn't have money to get more. Never true 03/03/2024 PRAPARE - Transportation Answer Date Re corded In the past 12 months, has l ack of transportation kept you from medical appointments or from getting medications? No 02/15 In the past 12 months, has l ack of transportation kept you from meetings, work, or from getting things needed for daily living? No 03/03/2024 Housing Stability Vital Sign Answer Shady e [...] now)? No 02/03/2023 Nutrition Answer Date Recorded On average, how many serving s of [...] degree (e.g., MA, MS, Ana Lilia, MEd, TUMBLER MACHINE OPERATOR, GORDO) 02/15/2022 Sex and Gender Information Value Date Recorded Sex Assigned at Male 04/23/2018 1:23 PM CDT Gender Identity Male 04/23/2018 1:23 PM CDT Sexual Orientation Straight 04/23/2018 1: 23 PM CDT Last Filed Vital Signs Vital Sign Reading Time Taken Comments Blood Pressure 139/101 03/08/2024 6:01 PM CDT Pulse 115 03/08/2024 5:21 PM CDT Temperature 36.8 ??C (98.2 ??F) 03/08/2024 4:46 PM CD T Respiratory Rate 16 03/08/2024 5:21 PM CDT Oxygen Saturation 94% 03/08/2024 5:21 PM CDT Inhaled Oxygen Concentration - - Weight 78.2 kg (172 lb 6.4 oz) 03/08/2024 3:46 P M CDT Height 179.3 cm (5' 10.59) 03/05/2024 12:21 PM CDT Body Mass Index 24.32 03/05/2024 12:21 PM CDT Plan of Treatment Upcoming Encounters Date Type Department Care Team (Latest Contact Info) Description 03/18/2024 9:15 AM CDT Appointment Department of Radiology, [facility], in [address] [phone] Zeke Downey M.D. [address] [place] [phone] 03/23/2024 7:30 AM CDT Clinical Communication Virtual Review in [place], [place] [address] [place] [address] 03/24/2024 11:00 AM CDT Appointment Department of Radiology, [facility], in [place], [place] [address] [place] [phone] Ned Alegria M.D. [address] [place] [phone] 03/24/2024 12:20 PM CDT Lab Department of Infusion Therapy in [place], [place] [address] [place] [phone] Ned Alegria M.D. [address] [place] [phone] 03/24/2024 1:00 PM CDT Ancillary Procedure Department of Cardiovascular Medicine in [place], [place] [address] [place] [phone] Zeke Downey M.D. [address] [place] [phone] 03/24/2024 3:30 PM CDT Office Visit Department of Oncology in [place], [place] [address] [place] [phone] Ned Alegria M.D. [address] [place] [phone] 04/14/2024 8:00 AM CDT Clinical Communication Virtual Review in [address] [phone] 04/19/2024 10:30 AM CDT Office Visit Department of Palliative Care in [place], [place] [address] [place] [phone] Patti Rush B.M.B.S., B.M.B.Ch. [address] [place] [phone] 05/03/2024 9:30 AM CDT Appointment Division of Gastroenterology in [place], [place] [address] [place] [phone] Corrina Jaime M.D. [address] [place] [phone] Drake Brennan M.D. [address] [place] [phone] Health Maintenance Due Date Last Done Comments Generalized Anxiety (REGINA-7) 1978 Lipid (Cholesterol) Screening 1978 Pneumococcal vaccine (0-64 years) (1 of 2 - PCV) 1984 Hepatitis B Vaccines (1 of 3 - 19+ 3-dose series) 1997 Zoster Vaccines (2 of 2) 07/20/2020 05/25/2020 COVID-19 Vaccine ( - 2022- season) 2023 08/16/2021, 02/27/2021, 02/02/2021 Controlled Substance Agreement 09/26/2023 Controlled Substance Monitoring (PHQ-9) 09/26/2023 Controlled Substance Monitoring 09/26/2023 PEG assessment for Opioid therapy 09/26/2023 Depression Screening (Annual PHQ-2) 11/17/2023 Opioid Risk Tool (ORT) 09/26/2024 09/26/2023 DTaP,Tdap,and Td Vaccines (2 - Td or Tdap) 09/26/2026 09/26/2016 Fasting Glucose for Diabetes Screening 03/05/2027 03/05/2024, 03/04/2024, 03/03/2024, Additional history exists HIV Screening Completed 05/11/2018 Hepatitis C Screening Completed 05/11/2018 Colonoscopy Discontinued 07/13/2019 Colorectal Cancer Surveillance Discontinued Influenza Vaccine Completed 08/21/2023, , 08/31/2020, Additional history exists Glucose Test for Med Monitoring Discontinued 03/05/2024, 03/04/2024, 03/03/2024, Additional history exists CT Colonography Discontinued Cologuard Discontinued HPV Vaccines Aged Out No longer eligi ble based on patient's age to complete this topic Goals Goal Patient Goal Type Associated Problems Recent Progress Patient-Stated? Author Your pain? Symptom Management 9(11/20/2022 2:41 PM DATABASES SOFTWARE CONSULTANT) No Phyllis-Girma Bush R.N., O.C.N. Note: [...] he can contact us again if needed. [facility] Medical Devices Implanted Type Area Hair Boiler Operator Device Identifier Shelf Expiration Date Model / Serial / Lot [employer] Seprafilm 5x6 - [id number] Implanted:Qty : 1 on 08/21/2018 by Jamin Huerta M.D. at [facility] Hardware e.g. pins/screws/landon s [employer] 4301-02 / / Mercer [employer] Seprafilm 5x6 - [id number] Implanted:Qty : 1 on 08/21/2018 by Jamin Huerta M.D. at [facility] Hardware e.g. pins/screws/landon s [employer] 4301-02 / / Mer[employer] Seprafilm 5x6 - [id number] Implanted:Qty : 1 on 08/21/2018 by Jamin Huerta M.D. at [facility] Hardware e.g. pins/screws/landon s [employer] 4301-02 / / Prt Cath Infus Mri 6f - [id number] Implanted:Qty : 1 on 04/05/2020 by Afsaneh Stephen M.D. at [facility] Implantable [employer] 06/16/2021 [id number] / / [id number] [facility] Pn Wdg 8.5fx22 - [id number] Implanted:Qty : 1 on 03/08/2024 by Drake Brennan M.D. at [facility] Kulkarni/Gonda Pancreatic Stent [employer] 01/01/2027 [id number] / / [id number] Description:8.5x22 Explanted Type Area Hair Boiler Operator Device Identifier Shelf Expiration Date Model / Serial / Lot Prt Cath Infus Mri 8f - [id number] Implanted:Qty : 1 on 09/30/2018 by Afsaneh Stephen M.D. at [facility] Explanted:Qty : 1 on 03/15/2019 at [facility] [employer] Implantable [employer] 10/16/2019 [id number] / / [id number] Procedures Procedure Name Priority Date/Time Associated Diagnosis Comments FL FLUORO LESS THAN 1 HOUR RAD - Routine (most inpatients and all outpatients) 03/08/2024 4:35 PM CDT Malignant Neoplasm Of Rectum (HCC) Secondary Malignant Neoplasm Colon (HCC) Secondary Malignant Neoplasm Liver (HCC) LDA ANE ENDOTRACHEAL AIRWAY Routine 03/08/2024 3:41 PM CDT GASTROENTEROLOGY IMAGE EXAM Routine 03/08/2024 2:50 PM CDT ERCP Routine 03/08/2024 2:47 PM CDT Malignant Neoplasm Of Rectum (HCC) Secondary Malignant Neoplasm Colon (HCC) Secondary Malignant Neoplasm Liver (HCC) ERCP Routine 03/08/2024 2:47 PM CDT Malignant Neoplasm Of Rectum (HCC) Secondary Malignant Neoplasm Colon (HCC) Secondary Malignant Neoplasm Liver (HCC) MAGNESIUM, S Routine 03/05/2024 8:09 AM CDT HEPATIC FUNCTION PANEL, S Routine 03/05/2024 8:09 AM CDT BASIC METABOLIC PANEL, S/P Routine 03/05/2024 8:09 AM CDT CBC WITH DIFFERENTIAL, B Routine 03/05/2024 8:08 AM CDT INTERPRETATION OF OUTSIDE MR ABDOMEN AND OR PELVIS RAD - Routine (most inpatients and all outpatients) 03/04/2024 3:33 PM CDT US PARACENTESIS WITH IMAGING GUIDANCE RAD - Routine (most inpatients and all outpatients) 03/04/2024 11:10 AM CDT PROTEIN, TOTAL, BF Timed 03/04/2024 10:48 AM CDT Abdominal Pain Nausea And Vomiting Ascites Malignant Neoplasm Of Rectum (HCC) Elevated Liver Function Test Elevated Bilirubin CELL COUNT AND DIFFERENTIAL, BF Timed 03/04/2024 10:48 AM CDT Abdominal Pain Nausea And Vomiting Ascites Malignant Neoplasm Of Rectum (HCC) Elevated Liver Function Test Elevated Bilirubin ALBUMIN, BODY FLUID Timed 03/04/2024 10:48 AM CDT Abdominal Pain Nausea And Vomiting Ascites Malignant Neoplasm Of Rectum (HCC) Elevated Liver Function Test Elevated Bilirubin FUNGAL SMEAR Timed 03/04/2024 10:48 AM CDT Abdominal Pain Nausea And Vomiting Ascites Malignant Neoplasm Of Rectum (HCC) Elevated Liver Function Test Elevated Bilirubin FUNGAL CULTURE, ROUTINE Timed 03/04/2024 10:48 AM CDT Abdominal Pain Nausea And Vomiting Ascites Malignant Neoplasm Of Rectum (HCC) Elevated Liver Function Test Elevated Bilirubin GRAM STAIN Timed 03/04/2024 10:48 AM CDT Abdominal Pain Nausea And Vomiting Ascites Malignant Neoplasm Of Rectum (HCC) Elevated Liver Function Test Elevated Bilirubin BACTERIAL CULTURE, AEROBIC + SUSC Timed 03/04/2024 10:48 AM CDT Abdominal Pain Nausea And Vomiting Ascites Malignant Neoplasm Of Rectum (HCC) Elevated Liver Function Test Elevated Bilirubin MAGNESIUM, S Routine 03/04/2024 7:16 AM CDT CBC WITH DIFFERENTIAL, B Routine 03/04/2024 7:16 AM CDT COMPREHENSIVE METABOLIC PANEL, S/P Routine 03/04/2024 7:16 AM CDT ECG STAT 03/03/2024 3:30 PM CDT US GALLBLADDER AND OR BILIARY DUCTS RAD - Semiurgent (Fast; most ED patients; some inpatients) 03/03/2024 2:[address] ABDOMEN PELVIS WITH IV CONTRAST RAD - Semiurgent (Fast; most ED patients; some inpatients) 03/03/2024 12:34 PM CDT ECG STAT 03/03/2024 10:31 AM CDT PROTHROMBIN TIME (PT), P STAT 03/03/2024 10:28 AM CDT LIPASE, S/P STAT 03/03/2024 10:28 AM CDT LACTATE, B/P STAT 03/03/2024 10:28 AM CDT HEPATIC FUNCTION PANEL, S STAT 03/03/2024 10:28 AM CDT CBC WITH DIFFERENTIAL, B STAT 03/03/2024 10:28 AM CDT BASIC METABOLIC PANEL, S/P STAT 03/03/2024 10:28 AM CDT OUTSIDE MR BODY Routine 02/26/2024 2:05 PM CDT FL SPINE INTERCOSTAL INJECTION Routine 02/05/2024 8:26 AM CDT Pain Chest Wall Pain Neuropathic Pain Post Thoracotomy Chronic OUTSIDE DX GENERAL Routine 12/31/2023 10:55 AM DATABASES SOFTWARE CONSULTANT PET CT SKULL TO THIGH RAD - Routine (most inpatients and all outpatients) 12/24/2023 11:31 AM DATABASES SOFTWARE CONSULTANT Malignant Neoplasm Of Rectum (HCC) Secondary Malignant Neoplasm Colon (HCC) Secondary Malignant Neoplasm Liver (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) COMPREHENSIVE METABOLIC PANEL, S/P Routine 12/24/2023 11:21 AM DATABASES SOFTWARE CONSULTANT Malignant Neoplasm Of Rectum (HCC) Secondary Malignant Neoplasm Colon (HCC) Secondary Malignant Neoplasm Liver (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) CARCINOEMBRYONIC AG (CEA), S Routine 12/24/2023 11:21 AM DATABASES SOFTWARE CONSULTANT Malignant Neoplasm Of Rectum (HCC) Secondary Malignant Neoplasm Colon (HCC) Secondary Malignant Neoplasm Liver (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) CBC WITH DIFFERENTIAL, B Routine 12/24/2023 11:21 AM DATABASES SOFTWARE CONSULTANT Malignant Neoplasm Of Rectum (HCC) Secondary Malignant Neoplasm Colon (HCC) Secondary Malignant Neoplasm Liver (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) BILIRUBIN DIRECT, S/P Routine 12/24/2023 11:21 AM DATABASES SOFTWARE CONSULTANT Malignant Neoplasm Of Rectum (HCC) Secondary Malignant Neoplasm Colon (HCC) Secondary Malignant Neoplasm Liver (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 Please refer to the patient's medical record on this date for clinical details. Tom Benjamin APRNNNaima IMG FLUORO SCOPY PROCEDURES ERCP LOS RST * LDA ANE ENDOTRACHEAL AIRWAY (03/08/2024 3:41 PM CDT) Narrative Kun Rasmussen APRN, CRNA - 03/08/2024 3:41 PM CDT Kun Rasmussen APRN, CRNA ? 03/08/2024 ??3:56 PM Airway Date/Time: 03/08/2024 3:41 PM Performed by: Kun Rasmussen APRN, CRNA Authorized by: Kun Rasmussen APRN, CRNA ?? Patient location during procedure: OR / Procedure Area PROCEDURE DETAILS: Mask difficulty assessment: not attempted Final airway type: video laryngoscope Laryngeal Manipulation: no ?? Final best view of glottic structures - Cormack/Lehane Score: grade 2A ETT location: oral VL device: glide scope [place] scope blade size: 4 Tube size: 7.5 ETT distance at teeth/gum: 21 Oral tube type: standard ETT Cuffed: yes Number of attempt to successful placement: 1 Airway confirmation: bilateral breath sounds, positive ETCO2 and bilateral chest rise Other previous techniques attempted: none PRE PROCEDURE DETAILS: Pre evaluation for airway management: procedure Urgency: elective Preop assessment of probable difficulty: questionable / suspicious difficult airway Preoxygenation: bag valve mask SEDATION / ANESTHESIA Anesthesia method: anesthesia POST PROCEDURE DETAILS: ? Procedure outcome: successful ?? Notable Events: no complications Kun Rasmussen BRACE MAKER, FINISH REPAIRER ANESTHESIA O RDERABLES * ERCP-Gastroenterology Image Exam (03/08/2024 2:50 PM CDT) 03/08/2024 2:47 PM CDT Narrative [facility] - 03/08/2024 4:49 PM CDT This order has been created and auto-finalized to support the import of images acquired without order. The clinical documentation to support these images can be found on the encounter that produced images. Provider Not In System IMG NON RAD IMAGI NG PROCEDURES [facility] NA * ERCP (03/08/2024 2:47 PM CDT) 03/08/2024 2:47 PM CDT Impressions JONES PROVATION - 03/08/2024 4:43 PM CDT Post-op Diagnoses: ? - A single segmental biliary stricture was found in the common hepatic ? duct as described. ? - A biliary sphincterotomy was performed. ? - Common hepatic duct stricture was successfully dilated with a 4 mm ? balloon dilator. ? - One 8.5 Croatian 22 cm Johlin temporary plastic biliary stent was placed ? into the left hepatic duct. Narrative JONES PROVATION - 03/08/2024 4:43 PM CDT [facility] 2 GI Patient Name: Luis Tabares Date of : 1980 Age: 43 Procedure Date: 03/08/2024 Procedure: ? ERCP, sphincterotomy, balloon dilation, biliary ? stent placement Providers: ? Drake Brennan MD, Marlena Patino MD (Fellow) Referring Provider: ?Viraj Mesa Pre-op Diagnoses: ?Abnormal abdominal CT, Biliary dilation on Computed ? Tomogram Scan, Abnormal abdominal MRI, Elevated ? liver enzymes, Abnormal liver function test, ? Elevated aspartate transaminase (AST), Elevated ? alanine transaminase (ALT), Elevated bilirubin, ? Elevated alkaline phosphatase Recommendation: ? - Discharge patient to home. ? - Patient has a contact number available for emergencies. The signs and ? symptoms of potential delayed complications were discussed with the ? patient. Return to normal activities tomorrow. Written discharge ? instructions were provided to the patient. ? - Levaquin (levofloxacin) 500 mg PO daily for 5 days, 1st dose this ? evening. ? - Return to referring physician as previously scheduled. ? - Repeat ERCP in approximately 8 weeks to exchange stent. Findings: ? The esophagus was successfully intubated under direct vision. The scope ? was advanced to a normal major papilla in the descending duodenum ? without detailed examination of the pharynx, larynx and associated ? structures, and upper GI tract. The upper GI tract was grossly normal. ? The major papilla was diminutive, and its orifice difficult to do so. ? There was a small periampullary diverticulum surrounding the superior ? aspect of it. Given the tiny orifice, I decided to use an ultra tapered ? cannula and a 0.018 in hydrophilic guidewire for cannulation. An 0.018 ? inch, 45-degree angled Glidewire was passed into the biliary tree. The ? 3-4-5 taper-tip cannula was passed over the guidewire and the bile duct ? was then deeply cannulated. Contrast was injected. I personally ? interpreted the bile duct images. There was brisk flow of contrast ? through the ducts. Contrast was injected incrementally so as to ? intentionally avoid any opacification of the right system given the very ? large cavitary necrotic area demonstrated in cross-sectional imaging to ? occupy a substantial proportion of the right lobe of the liver. Image ? quality was excellent. Light puffs of contrast were administered. ? Contrast extended to the hepatic ducts. The cystic duct had a high ? insertion and the common hepatic duct was short, demonstrating some ? stricturing likely due to compressing lymph nodes surrounding it. We ? successfully avoided direct opacification of the right system, ? opacifying from the left system down only after accessing deep into ? segment 2. Opacification of the entire biliary tree was successful in ? this highly targeted fashion. A 5 mm biliary sphincterotomy was made ? with a monofilament traction (standard) sphincterotome using [employer] ? electrocautery. I wanted to avoid extending the sphincterotomy more than ? necessary as I did not want to increase the risk of reflux sensation of ? intestinal contents into the right side of the liver where the cavitary ? necrosis was evident anymore than necessary. There was no ? post-sphincterotomy bleeding. Common hepatic duct stricture was ? successfully dilated with a 4 mm balloon dilator. One 8.5 Fr by 22 cm ? Johlin transpapillary temporary plastic biliary stent was placed into ? the left hepatic duct. Bile flowed through the stent. The stent was in ? good position. Drainage was excellent. Procedural Details: ? The patient was seen, evaluated, history reviewed, airway and heart-lung ? exams were performed by licensed provider and were satisfactory for ? planned level of sedation care. ? The risks, benefits and alternatives for the procedure and sedation were ? discussed and informed consent was obtained. A procedural pause was ? conducted in the presence of assisting personnel to verify the correct ? patient identity and procedure to be performed. Throughout the ? procedure, the patient's blood pressure, pulse, and oxygen saturations ? were monitored continuously. The Duodenoscope was introduced through the ? mouth, and advanced to the duodenum and used to inject contrast into the ? bile duct. The ERCP was accomplished without difficulty. The patient ? tolerated the procedure well. Complications: ? No immediate complications. Estimated Blood Loss: ?Estimated blood loss: none. Attending Participation: I was present and participated during the entire ? procedure, including non-griffith portions. Drake Brennan MD 03/08/2024 4:43:34 PM This report has been signed electronically. Number of Addenda: 0 Note Initiated On: 03/08/2024 2:47 PM Tracie Tai APRN, C.N.P. GI PROCEDU RE ORDERABLES [facility] * (ABNORMAL) Hepatic Function Panel (03/05/2024 8:09 AM CDT) Only the most recent of2 resultswithin the time period is included. Bilirubin, Total, S 3.2(H) 0.0 - 1.2 mg/dL 03/05/2024 9:04 AM CDT DTL Bilirubin, Direct, S 2.6(H) 0.0 - 0.3 mg/dL 03/05/2024 9:04 AM CDT DTL Aspartate Aminotransferase (AST), S 144(H) 8 - 48 U/L 03/05/2024 9:04 AM CDT DTL Alanine Aminotransferase (ALT), S 215(H) 7 - 55 U/L 03/05/2024 9:04 AM CDT DTL Alkaline Phosphatase, S 778(H) 40 - 129 U/L 03/05/2024 9:04 AM CDT DTL Albumin, S 3.1(L) 3.5 - 5.0 g/dL 03/05/2024 9:04 AM CDT DTL Protein, Total, S 4.6(L) 6.3 - 7.9 g/dL 03/05/2024 9:04 AM CDT DTL Blood (Blood, Venous) 03/05/2024 8:09 AM CDT 03/05/2024 8:41 AM CDT Viraj Mesa M.D. LAB BLOOD ADD-ON Performing Organization Address [facility] Co de Phone Number [facility] [address] [place] [address] * Magnesium (03/05/2024 8:09 AM CDT) Only the most recent of2 resultswithin the time period is included. Magnesium, S 2.1 1.7 - 2.3 mg/dL 03/05/2024 9:04 AM CDT DTL Blood (Blood, Venous) 03/05/2024 8:09 AM CDT 03/05/2024 8:41 AM CDT Viraj Mesa M.D. LAB BLOOD ADD-ON Performing Organization Address [facility] Co de Phone Number [facility] [address] [place] [address] * (ABNORMAL) Basic Metabolic Panel (03/05/2024 8:09 AM CDT) Only the most recent of2 resultswithin the time period is included. Potassium, S 4.0 3.6 - 5.2 mmol/L 03/05/2024 9:04 AM CDT DTL Sodium, S 136 135 - 145 mmol/L 03/05/2024 9:04 AM CDT DTL Chloride, S 102 98 - 107 mmol/L 03/05/2024 9:04 AM CDT DTL Bicarbonate, S 26 22 - 29 mmol/L 03/05/2024 9:04 AM CDT DTL Anion Gap 8 7 - 15 03/05/2024 9:04 AM CDT DTL BUN (Blood Urea Nitrogen), S 6(L) 8 - 24 mg/dL 03/05/2024 9:04 AM CDT DTL Creatinine 0.54(L) 0.74 - 1.35 mg/dL 03/05/2024 9:04 AM CDT DTL Estimated GFR (eGFR) >90 >=60 mL/min/BSA 03/05/2024 9:04 AM CDT DTL Comment: Estimated GFR calculated using the 2020 CKD_EPI creatinine equation. Calcium, Total, S 8.4(L) 8.6 - 10.0 mg/dL 03/05/2024 9:04 AM CDT DTL Glucose, S 108 70 - 140 mg/dL 03/05/2024 9:04 AM CDT DTL Blood (Blood, Venous) 03/05/2024 8:09 AM CDT 03/05/2024 8:41 AM CDT Viraj Mesa M.D. LAB BLOOD ADD-ON [facility] [address] [place] [address], [facility] [address] [place] [address] * (ABNORMAL) CBC with Differential, Blood (03/05/2024 8:08 AM CDT) Only the most recent of4 resultswithin the time period is included. Hemoglobin 11.2(L) 13.2 - 16.6 g/dL 03/05/2024 8:35 AM CDT DTL Hematocrit 35.4(L) 38.3 - 48.6 % 03/05/2024 8:35 AM CDT DTL Erythrocytes 4.06(L) 4.35 - 5.65 x10(12)/L 03/05/2024 8:35 AM CDT DTL MCV 87.2 78.2 - 97.9 fL 03/05/2024 8:35 AM CDT DTL RBC Distrib Width 15.9(H) 11.8 - 14.5 % 03/05/2024 8:35 AM CDT DTL Platelet Count 74(L) 135 - 317 x10(9)/L 03/05/2024 8:49 AM CDT DTL Leukocytes 5.0 3.4 - 9.6 x10(9)/L 03/05/2024 8:49 AM CDT DTL Neutrophils 3.62 1.56 - 6.45 x10(9)/L 03/05/2024 8:35 AM CDT DHPM Lymphocytes 0.53(L) 0.95 - 3.07 x10(9)/L 03/05/2024 8:35 AM CDT DTL Monocytes 0.73 0.26 - 0.81 x10(9)/L 03/05/2024 8:35 AM CDT DTL Eosinophils 0.05 0.03 - 0.48 x10(9)/L 03/05/2024 8:35 AM CDT DTL Basophils <0.03 0.01 - 0.08 x10(9)/L 03/05/2024 8:35 AM CDT DTL Blood (Blood, Venous) 03/05/2024 8:08 AM CDT 03/05/2024 8:21 AM CDT Viraj Mesa M.D. LAB BLOOD ADD-ON [facility] [address] [place] [address], [facility] DTL [facility] [address] [place] [address] DHPM [facility] [address] [place] [address] * Interpretation of Outside MR Abdomen and or Pelvis (03/04/2024 3:33 PM CDT) Anatomical Region Laterality Modality Abdominal RST LOS, Abdominal ARZ LOS, Abdominal FLA LOS, Abdomen, Other, Pelvis N/A Magnetic Resonance Impressions 03/04/2024 3:55 PM CDT 1. Mild intrahepatic biliary dilatation, worse in the left hepatic lobe is new since prior CT, and further progressed on subsequent CT dated 03/03/2024. 2. Large infiltrative mass at the liver hilum probably causing #1. The mass also involves main poral vein and celiac artery. 3. Progression of liver metastases. Narrative 03/04/2024 3:55 PM CDT EXAM: ??INTERPRETATION OF OUTSIDE MR ABDOMEN AND OR PELVIS Outside MRI of abdomen without and with IV contrast dated 02/26/2024 COMPARISON: ??CT dated 03/03/2024 and 12/08/2023 FINDINGS: A large post-ablation defect in the right hepatic lobe, similar to prior CT. Multiple ill-defined hypo-enhancing lesions in both lobes of the liver have increased in size and number from prior CT. Mild intrahepatic biliary dilatation, worse in the left hepatic lobe is new since prior CT, and further progressed on subsequent CT dated 03/03/2024. This is probably caused by the large infiltrative mass at the liver hilum (series 9 image 18). This is better seen on more recent CT (series 3 [address] The mass involves and narrows main portal vein and IVC. The mass also encases celiac artery. A few mildly enlarged retroperitoneal lymph nodes, increased from prior CT. Small perihepatic and perisplenic ascites. Kidneys, adrenal glands, pancreas and spleen are unremarkable. Multiple lung nodules. Procedure Note Bertha Bravo M.D. - 03/04/2024 EXAM: INTERPRETATION OF OUTSIDE MR ABDOMEN AND OR PELVIS Outside MRI of abdomen without and with IV contrast dated 02/26/2024 COMPARISON: CT dated 03/03/2024 and 12/08/2023 FINDINGS: A large post-ablation defect in the right hepatic lobe, similar to priorCT. Multiple ill-defined hypo-enhancing lesions in both lobes of the liverhave increased in size and number from prior CT. Mild intrahepatic biliary dilatation, worse in the left hepatic lobe isnew since prior CT, and further progressed on subsequent CT date03/03/2024. This is probably caused by the large infiltrative mass at theliver hilum (series 9 image 18). This is better seen on more recent CT (series [address] The mass involvesand narrows main portal vein and IVC. The mass also encases celiac artery. A few mildly enlarged retroperitoneal lymph nodes, increased from priorCT. Small perihepatic and perisplenic ascites. Kidneys, adrenal glands,pancreas and spleen are unremarkable. Multiple lung nodules. IMPRESSION: 1. Mild intrahepatic biliary dilatation, worse in the left hepatic lobe isnew since prior CT, and further progressed on subsequent CT date03/03/2024. 2. Large infiltrative mass at the liver hilum probably causing #1. Themass also involves main poral vein and celiac artery. 3. Progression of liver metastases. Viraj Mesa M.D. G MRI PROCEDURES * US Paracentesis with Imaging Guidance (03/04/2024 11:10 AM CDT) Anatomical Region Laterality Modality Abdomen, Ultrasound RST LOS, Ultrasound ARZ LOS, Procedure FLA LOS, Abdominal FLA LOS, Procedural, Procedural NWWI LOS N/A Ultrasound Impressions 03/04/2024 11:36 AM CDT Ultrasound-guided paracentesis. NR Narrative 03/04/2024 11:36 AM CDT EXAM: US PARACENTESIS WITH IMAGING GUIDANCE PRE-PROCEDURE: Patient seen and evaluated. Allergies, pertinent medications, and history reviewed. Discussed risks, benefits, alternatives for procedure, and obtained informed consent. Patient understands information and questions answered. Immediately prior to starting the procedure, in the presence of the assisting personnel, procedural pause was conducted to verify correct patient identity and verification of procedure to be performed, and as applicable, correct side and site, correct patient position, availability of implants, special equipment, or special requirements, and all image and specimen identification data. The roles and responsibilities of care team members, residents, and fellows were discussed. TECHNIQUE: Sterile. 1% lidocaine for local anesthesia. Location: Right lower quadrant peritoneal space. Needle size: 5 Fr centesis catheter. Volume aspirated: 786 cc Appearance of aspirate: Clear yellow Complication: None. Blood loss: None. Purpose: Diagnostic and therapeutic. PATIENT INSTRUCTIONS: Patient may be dismissed from the radiology department when dismissal criteria met. POST-PROCEDURE DIAGNOSIS: Ascites, paracentesis Procedure Note Nicolás Rico M.B., Ch.B. - 03/04/2024 EXAM: US PARACENTESIS WITH IMAGING GUIDANCE PRE-PROCEDURE: Patient seen and evaluated. Allergies, pertinentmedications, and history reviewed. Discussed risks, benefits, alternativesfor procedure, and obtained informed consent. Patient understandsinformation and questions answered. Immediately prior to starting the procedure, in the presence of the assistingpersonnel, procedural pause was conducted to verify correct patientidentity and verification of procedure to be performed, and as applicable,correct side and site, correct patient position, availability of implants, special equipment, or specialrequirements, and all image and specimen identification data. The rolesand responsibilities of care team members, residents, and fellows werediscussed. TECHNIQUE: Sterile. 1% lidocaine for local anesthesia. Location: Right lower quadrant peritoneal space. Needle size: 5 Fr centesis catheter. Volume aspirated: 786 cc Appearance of aspirate: Clear yellow Complication: None. Blood loss: None. Purpose: Diagnostic and therapeutic. PATIENT INSTRUCTIONS: Patient may be dismissed from the radiologydepartment when dismissal criteria met. POST-PROCEDURE DIAGNOSIS: Ascites, paracentesis IMPRESSION: Ultrasound-guided paracentesis. NR Viraj Mesa M.D. IMG US PROCEDURES * Protein, Total, Body Fluid (03/04/2024 10:48 AM CDT) Protein, Total, BF 0.5 See Comment g/dL 03/04/2024 12:40 PM CDT DTL Comment: ----ADDITIONAL INFORMATION---- A pleural fluid total protein to serum total protein ratio >0.5 is most consistent with exudative effusion. A peritoneal fluid total protein > 2.5 g/dL in patients with a high serum ascites albumin gradient can be caused by heart failure. A peritoneal fluid total protein > 1.0 g/dL helps to differentiate secondary from spontaneous bacterial peritonitis in conjunction with other laboratory, imaging, and clinical findings. All other fluids refer to [email or web address].com for further interpretive information. This test has been modified from the polystyrene bead molder's instructions. Its performance characteristics were determined by [facility] in a manner consistent with CLIA requirements. This test has not been cleared or approved by the U.S. Food and Drug Administration. Fluid Type, Protein, Total Fluid, Peritoneal Fluid 03/04/2024 11:08 AM CDT DTL Fluid (Peritoneal Fluid) 03/04/2024 10:48 AM CDT Viraj Mesa M.D. LAB BODY FLUIDS AND STOOLS ORDERABLES Performing Organization Address [facility] Co de Phone Number [facility] [address] [place] [address], [facility] [address] [place] [address] * Bacterial Culture, Aerobic + Susceptibility (03/04/2024 10:48 AM CDT) Bacterial Culture, Aerobic + Susc No growth after 5 days of incubation. 03/09/2024 8:29 AM CDT DTL Fluid (Peritoneal Fluid) 03/04/2024 10:48 AM CDT Narrative [facility] - 03/09/2024 8:29 AM CDT Bacterial Culture: Received Bactec aerobic and Bactec anaerobic bottles Viraj Mesa M.D. LAB MICROBIOLOGY - G ENERAL ORDERABLES Performing Organization Address [facility] Co de Phone Number [facility] [address] [place] [address], [facility] [address] [place] [address] * Cell Count and Differential, Body Fluid (03/04/2024 10:48 AM CDT) Fluid Type Peritoneal /Paracente sis 03/04/2024 11:36 AM CDT DHPM Gross Appearance Serous 03/04/20 24 11:36 AM CDT DHPM Total Nucleated Cells 248 /mcL 03/04/2024 11:36 AM CDT DHPM Comment: ----REFERENCE VALUE---- Synovial: <150 /mcL Peritoneal: <500 /mcL Pleural: <500 /mcL Pericardial: <500 /mcL ----ADDITIONAL INFORMATION---- This test has been modified from the polystyrene bead molder's instructions. Its performance characteristics were determined by [facility] in a manner consistent with CLIA requirements. This test has not been cleared or approved by the U.S. Food and Drug Administration. Neutrophils 4 % 03/04/2024 12:08 PM CDT [facility] Comment: ----REFERENCE VALUE---- Synovial: <25% Peritoneal: <25% Pleural: <25% Pericardial: <25% Lymphocytes 32 Synovial <75% % 03/04/2024 12:08 PM CDT DHPM Monocytes/Macropha ges 64 Synovial <70% % 03/04/2024 12:08 PM CDT DHPM Comment See Comment 03/04/2024 12:08 PM CDT DHPM Comment:No blasts or maligna nt cells seen. Reviewed by: Rosaline 03/04/2024 12:08 PM CDT DHPM Fluid (Peritoneal Fluid) 03/04/2024 10:48 AM CDT Viraj Mesa M.D. LAB BODY FLUIDS AND STOOLS ORDERABLES Performing Organization Address City/[facility]/ZIP Co de Phone Number [facility] [address] [place] [address], [facility] [address] [place] [address] * Fungal Smear (03/04/2024 10:48 AM CDT) Fungal Smear Negative. 03/04/2024 8:48 PM CDT DT Fluid (Peritoneal Fluid) 03/04/2024 10:48 AM CDT Narrative [facility] - 03/04/2024 8:48 PM CDT Bacterial Culture: Received Bactec aerobic and Bactec anaerobic bottles Viraj Mesa M.D. LAB MICROBIOLOGY - G ENERAL ORDERABLES [facility] [address] [place] [address], [facility] [address] [place] [address] * Gram Stain (03/04/2024 10:48 AM CDT) Gram Stain No organisms seen. White blood cells present. 03/04/2024 3:33 PM CDT DTL Fluid (Peritoneal Fluid) 03/04/2024 10:48 AM CDT Narrative [facility] - 03/04/2024 3:33 PM CDT Bacterial Culture: Received Bactec aerobic and Bactec anaerobic bottles Viraj Mesa M.D. LAB MICROBIOLOGY - G ENERAL ORDERABLES Performing Organization Address City/[facility]/ZIP Co de Phone Number [facility] [address] [place] [address], [facility] [address] [place] [address] * Albumin, Body Fluid (03/04/2024 10:48 AM CDT) Pathologist [facility] Albumin BF 0.5 See Comment g/dL 03/04/2024 12:40 PM CDT DTL Comment: ----ADDITIONAL INFORMATION---- Peritoneal fluid albumin is used to calculate the serum-ascites albumin gradient (SAAG). Values greater than or equal to 1.1 g/dL suggest portal hypertension. Pleural fluid albumin may be used to calculate a serum-effusion albumin gradient. Values greater than 1.2 g/dL are most consistent with a transudative process. ?? All other fluids refer to www.[employer].com for further interpretive information. This test has been modified from the polystyrene bead molder's instructions. Its performance characteristics were determined by [facility] in a manner consistent with CLIA requirements. This test has not been cleared or approved by the U.S. Food and Drug Administration. Fluid Type, Albumin Fluid, Peritoneal Fluid 03/04/2024 11:08 AM CDT DTL Fluid (Peritoneal Fluid) 03/04/2024 10:48 AM CDT Viraj Mesa M.D. LAB BODY FLUIDS AND STOOLS ORDERABLES Performing Organization Address City/[facility]/ZIP Co de Phone Number [facility] [address] [place] [address], [facility] [address] [place] [address] * (ABNORMAL) Comprehensive Metabolic Panel (03/04/2024 7:16 AM CDT) Only the most recent of2 resultswithin the time period is included. Pathologist [facility] Potassium, S 3.8 3.6 - 5.2 mmol/L 03/04/2024 9:15 AM CDT DTL Sodium, S 136 135 - 145 mmol/L 03/04/2024 9:15 AM CDT DTL Chloride, S 103 98 - 107 mmol/L 03/04/2024 9:15 AM CDT DTL Bicarbonate, S 24 22 - 29 mmol/L 03/04/2024 9:15 AM CDT DTL Anion Gap 9 7 - 15 03/04/2024 9:15 AM CDT DTL BUN (Blood Urea Nitrogen), S 5(L) 8 - 24 mg/dL 03/04/2024 9:15 AM CDT DTL Creatinine 0.57(L) 0.74 - 1.35 mg/dL 03/04/2024 9:15 AM CDT DTL Estimated GFR (eGFR) >90 >=60 mL/min/BS A 03/04/2024 9:15 AM CDT DTL Comment: Estimated GFR calculated using the 2020 CKD_EPI creatinine equation. Calcium, Total, S 8.4(L) 8.6 - 10.0 mg/dL 03/04/2024 9:15 AM CDT DTL Glucose, S 100 70 - 140 mg/dL 03/04/2024 9:15 AM CDT DTL Protein, Total, S 4.5(L) 6.3 - 7.9 g/dL 03/04/2024 9:15 AM CDT DTL Albumin, S 3.0(L) 3.5 - 5.0 g/dL 03/04/2024 9:15 AM CDT DTL Aspartate Aminotransferase (AST), S 167(H) 8 - 48 U/L 03/04/2024 9:15 AM CDT DTL Alkaline Phosphatase, S 783(H) 40 - 129 U/L 03/04/2024 9:15 AM CDT DTL Alanine Aminotransferase (ALT), S 227(H) 7 - 55 U/L 03/04/2024 9:15 AM CDT DTL Bilirubin, Total, S 2.9(H) 0.0 - 1.2 mg/dL 03/04/2024 9:15 AM CDT DTL Blood (Blood, Venous) 03/04/2024 7:16 AM CDT 03/04/2024 7:49 AM CDT Ana Palm APRN, C.N.P. LAB BLOOD A DD-ON Performing Organization Address City/[facility] Co de Phone Number [facility] [address] [place] [address], [facility] DTL [facility] [address] [place] [address] * ECG 12 Lead (03/03/2024 3:30 PM CDT) Only the most recent of2 resultswithin the time period is included. Ventricular Rate ECG/Min 123 BPM MUSE VT Interval 148 ms MUSE QRSD Interval 84 ms MUSE QT Interval 318 ms MUSE QTC Interval 455 ms MUSE P [place] 49 degrees MUSE R [place] 80 degrees MUSE T Wave [place] 28 degrees MUSE 03/03/2024 3:30 PM CDT 03/03/2024 3:41 PM CDT Impressions MUSE - 03/03/2024 3:41 PM CDT Sinus tachycardia Otherwise normal ECG When compared with ECG of 03-Mar-2024 10:31, No significant change in data has occurred Reviewed by Yvon Gatica III, CRAT Narrative Procedure Note Steve Tyler M.D. - 03/03/2024 IMPRESSION: Sinus tachycardia Otherwise normal ECG When compared with ECG of 03-Mar-2024 10:31, No significant change in data has occurred Reviewed by Yvon Gatica III, CRAT Daniela Brownlee P.A.-C., M.S. ECG ORDER SHOLA Performing Organization Address City/[facility]/ZIP Co de Phone Number MUSE NA * US Gallbladder and or Biliary Ducts (03/03/2024 2:02 PM CDT) Anatomical Region Laterality Modality Abdomen, Ultrasound RST LOS, Ultrasound ARZ LOS, Ultrasound FLA LOS N/A Ultrasound Impressions 03/03/2024 2:11 PM CDT 1. Multiple tiny, mobile stones without additional findings concerning for acute cholecystitis. 2. Ascites and hepatic lesions were better evaluated on comparison CT. Narrative 03/03/2024 2:11 PM CDT EXAM: US GALLBLADDER AND OR BILIARY DUCTS COMPARISON: CT of the abdomen and pelvis from earlier today (03/03/2024). FINDINGS: Gallbladder: Multiple tiny, mobile stones.. No wall thickening or pericholecystic fluid. ??Negative sonographic Martinez sign. Intrahepatic ducts: Not dilated. Common duct: Not dilated. Aorta: Normal caliber. Other: Perihepatic ascites. Multiple hepatic lesions which were better evaluated on comparison CT. Procedure Note Nirmal Hernandes M.D. - 03/03/2024 EXAM: US GALLBLADDER AND OR BILIARY DUCTS COMPARISON: CT of the abdomen and pelvis from earlier today (03/03/2024). FINDINGS: Gallbladder: Multiple tiny, mobile stones.. No wall thickening orpericholecystic fluid. Negative sonographic Martinez sign. Intrahepatic ducts: Not dilated. Common duct: Not dilated. Aorta: Normal caliber. Other: Perihepatic ascites. Multiple hepatic lesions which were betterevaluated on comparison CT. IMPRESSION: 1. Multiple tiny, mobile stones without additional findings concerning foracute cholecystitis. 2. Ascites and hepatic lesions were better evaluated on comparison CT. aDniela Brownlee P.A.-C., M.S. IMG US VT OCEDURES * CT Abdomen Pelvis with IV Contrast (03/03/2024 12:34 PM CDT) Anatomical Region Laterality Modality Abdomen, Pelvis, Abdominal R ST LOS, Abdominal ARZ LOS, Abdominal FLA LOS N/A Computed Tomograp hy, Computed Tomography 03/03/2024 12:2 9 PM CDT Impressions 03/03/2024 1:20 PM CDT 1. Findings suggestive of progressive metastatic disease (pulmonary, hepatic, and lymph node metastases) when compared with the prior CT on 12/08/[address] on 12/24/2023. 2. Increasing intra-abdominal ascites. Increasing ill-defined stranding and nodularity involving the peritoneum/mesentery. A component of peritoneal metastasis is difficult to exclude. 3. Increasing mild intrahepatic biliary ductal dilatation, particularly in the left hepatic lobe may relate to compression secondary to adenopathy. 4. There are few subtle hypodensities in the spleen which are nonspecific. Please correlate with the outside MRI from 02/26/2024. Additional findings as described in the body of the report. Narrative 03/03/2024 1:20 PM CDT EXAM: ??CT ABDOMEN PELVIS WITH IV CONTRAST COMPARISON: ??Outside MRI abdomen, 02/26/2024; PET-CT, 12/24/2023; outside CT abdomen and pelvis with contrast, 12/08/2023. FINDINGS: ??Redemonstration of multiple bilateral pulmonary metastases. In comparison with the PET-CT on 12/24/2023, some of these metastases appear increased in size. For instance a metastasis in the medial left lingula (3/5) measures 1.6 x 1.6 cm (previously 1.4 x 1.2 cm) and a metastasis in the medial aspect of the right lower lobe (3/10) measures 1.8 x 1.6 cm (previously 1.5 x 1.4 cm). No definite new pulmonary metastases compared to the CT the abdomen from 12/08/2023; although, the metastases are larger compared to that study. Postsurgical changes of wedge resection in the right lower lobe with adjacent scarring and/or atelectasis. 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 There are multiple ill-defined hepatic lesions most consistent with metastases (at least 6-7). These lesions have likely increased in size and/or number when compared with the most recent PET-CT and have definitely increased in size and number compared to the CT of the abdomen and pelvis from 12/08/2023. Persistent ill-defined soft tissue nodularity and/or lymph nodes involving the periportal/peripancreatic region and right upper retroperitoneum, increased in bulk compared to the CT on 12/08/2023. There is associated encasement of the celiac artery and abutment of the portal vasculature. This area now measures approximately 4.1 x 2.7 cm (3/46), previously 2.8 x 2.6 cm on 12/08/2023. There is new intrahepatic biliary ductal dilatation, primarily in the left hepatic lobe, likely related to compression. Persistent prominent and/or enlarged upper retroperitoneal and mesenteric lymph nodes, some of which have increased in size CT on 12/08/2023. For instance an aortocaval lymph node () now measures 1.1 x 1 cm (previously 5 mm). There are few subtle hypodensities in the spleen, nonspecific (for instance 02/10). There is increased free fluid in the abdomen and pelvis now small to moderate in volume. Increasing peritoneal/mesenteric stranding and/or nodularity and a component of peritoneal disease cannot be excluded. Redemonstration of postoperative changes of low anterior resection with reanastomosis postsurgical changes of previous small bowel resection in the right lower quadrant. No hydronephrosis or hydroureter. No evidence of bowel obstruction. No acute osseous abnormalities. No free intraperitoneal air. Procedure Note Klever Portillo M.D. - 03/03/2024 EXAM: CT ABDOMEN PELVIS WITH IV CONTRAST COMPARISON: Outside MRI abdomen, 02/26/2024; PET-CT, 12/24/2023; outside CTabdomen and pelvis with contrast, 12/08/2023. FINDINGS: Redemonstration of multiple bilateral pulmonary metastases. Incomparison with the PET-CT on 12/24/2023, some of these metastases appearincreased in size. For instance a metastasis in the medial left lingula(3/5) measures 1.6 x 1.6 cm (previously 1.4 x 1.2 cm) and a metastasis in the medial aspect of theright lower lobe (3/10) measures 1.8 x 1.6 cm (previously 1.5 x 1.4 cm).No definite new pulmonary metastases compared to the CT the abdomen from12/08/2023; although, the metastases are larger compared to that study. Postsurgical changes of wedge resectionin the right lower lobe with adjacent scarring and/or atelectasis. Redemonstration of a large known post ablation defect involving theposterior right hepatic lobe, similar to prior imaging. There are multipleill-defined hepatic lesions most consistent with metastases (at least6-7). These lesions have likely increased in size and/or number when compared with the most recent PET-CT and havedefinitely increased in size and number compared to the CT of the abdomenand pelvis from 12/08/2023. Persistent ill-defined soft tissue nodularity and/or lymph nodes involvingthe periportal/peripancreatic region and right upper retroperitoneum,increased in bulk compared to the CT on 12/08/2023. There is associatedencasement of the celiac artery and abutment of the portal vasculature. This area now measures approximately4.1 x 2.7 cm (3/46), previously 2.8 x 2.6 cm on 12/08/2023. There is newintrahepatic biliary ductal dilatation, primarily in the left hepaticlobe, likely related to compression. Persistent prominent and/or enlarged upper retroperitoneal and mesentericlymph nodes, some of which have increased in size CT on 12/08/2023. Forinstance an aortocaval lymph node () now measures 1.1 x 1 cm(previously 5 mm). There are few subtle hypodensities in the spleen, nonspecific (forinstance 02/10). There is increased free fluid in the abdomen and pelvis now small tomoderate in volume. Increasing peritoneal/mesenteric stranding and/ornodularity and a component of peritoneal disease cannot be excluded. Redemonstration of postoperative changes of low anterior resection withreanastomosis postsurgical changes of previous small bowel resection inthe right lower quadrant. No hydronephrosis or hydroureter. No evidence ofbowel obstruction. No acute osseous abnormalities. No free intraperitoneal air. IMPRESSION: 1. Findings suggestive of progressive metastatic disease (pulmonary,hepatic, and lymph node metastases) when compared with the prior CT on12/08/[address] on 12/24/2023. 2. Increasing intra-abdominal ascites. Increasing ill-defined strandingand nodularity involving the peritoneum/mesentery. A component ofperitoneal metastasis is difficult to exclude. 3. Increasing mild intrahepatic biliary ductal dilatation, particularly inthe left hepatic lobe may relate to compression secondary to adenopathy. 4. There are few subtle hypodensities in the spleen which are nonspecific.Please correlate with the outside MRI from 02/26/2024. Additional findings as described in the body of the report. Daniela Brownlee P.A.-C., M.S. IMG CT VT OCEDURES * (ABNORMAL) Prothrombin Time (PT) (03/03/2024 10:28 AM CDT) Prothrombin Time, P 13.8(H) 9.4 - 12.5 sec 03/03/2024 10:39 AM CDT [facility] INR 1.3 0.9 - 1.1 03/03/2024 10:39 AM CDT STMA Comment: ----ADDITIONAL INFORMATION---- Standard intensity warfarin therapeutic range: 2.0 to 3.0 ?? High intensity warfarin therapeutic range: 2.5 to 3.5 Blood (Blood, Venous) 03/03/2024 10:28 AM CDT 03/03/2024 10:32 AM CDT Daniela Brownlee P.A.-C., M.S. LAB BLOOD ADD-ON Performing Organization Address [facility]/ZIP Co de Phone Number [facility] [address] STMA [facility] [address] [place] [address] * Lipase (03/03/2024 10:28 AM CDT) Pathologist [facility] Lipase, S 19 13 - 60 U/L 03/03/2024 11:13 AM CDT DTL Blood (Blood, Venous) 03/03/2024 10:28 AM CDT 03/03/2024 10:51 AM CDT Daniela Brownlee P.A.-C., M.S. LAB BLOOD ADD-ON Performing Organization Address City/[facility]/ZIP Co de Phone Number [facility] [address] [place] [address] * Lactate (03/03/2024 10:28 AM CDT) Lactate, P 1.0 0.5 - 2.2 mmol/L 03/03/2024 10:45 AM CDT STMA Blood (Blood, Venous) 03/03/2024 10:28 AM CDT 03/03/2024 10:32 AM CDT Daniela Brownlee P.A.-C. MCandidoS. LAB BLOOD NON ADD-ON [facility] [address] [place] [address], [facility] [address] [place] [address] * MR abdomen wo/w con-Outside MR Body (02/26/2024 2:05 PM CDT) Narrative [facility] - 03/01/2024 1:30 PM CDT This order has been created and auto-finalized to support the import of outside images. If available, original interpretation can be found on the Media Tab in Chart Review, in Document Viewer, or as an image in QREADS. If a re-interpretation or overread is required please follow defined workflow. ?? Provider Not In System IMG MRI PROCEDURE S Performing Organization Address [facility] Co de Phone Number [facility] NA * FL Spine Intercostal Injection Right (02/05/2024 8:26 AM CDT) Narrative Raf Cochran M.D. - 02/05/2024 8:00 AM CDT Raf Cochran M.D. ? 02/05/2024 ??8:45 AM FL Spine Intercostal Injection Right Performed by: Raf Cochran M.D. Authorized by: Sean Shen D.O. ?? Care team members present 1. Sean Shen D.O. 2. Yareli Wiggins, L.PCandidoNCandido PROCEDURE SUMMARY Indications: Intractable pain Pre-procedural pain: 7/10 Post-procedural pain: 2/10 Site: thoracic Thoracic: intercostal nerve block Intercostal nerve block: Right T5 and Right T7 Needle or RF cannula: Spinal Needle size: 25 G Needle length: 2 in Patient position: prone IMAGING ??Ultrasound image guidance used to localize target, identify at risk structures, and dynamically used to direct therapy to the target. Image(s) acquired and saved. Ultrasound probe (MHz): linear mid-frequency Needle visualization: in-plane INJECTED MEDICATIONS The injected medication(s) listed was [...] next 24 hours. ? ADDITIONAL PROCEDURE COMMENTS Patient tolerated the procedure very well. ??We utilized fluoroscopy to identify the right T5 and 7 ribs. ??Ultrasound was then used to guide the needle into proper position. ??There was no evidence of any complication. CONSENT Consent obtained: written (Risks, benefits and [...] fellow participated in the procedure, and the eligibility consultant was present for the entire procedure. OPERATIVE NOTE INFORMATION Specimens: 0 Drains: 0 Estimated blood loss: 0 Implants: 0 Sean Shen D.O. FLUORO GUIDED PAIN P ROCEDURES * XR abdomen min 2V-Outside Gen Dx Stdy (12/31/2023 10:55 AM DATABASES SOFTWARE CONSULTANT) 12/31/2023 10:5 4 AM DATABASES SOFTWARE CONSULTANT Narrative [facility] - 12/31/2023 2:47 PM DATABASES SOFTWARE CONSULTANT This order has been created and auto-finalized to support the import of outside images. If available, original interpretation can be found on the Media Tab in Chart Review, in Document Viewer, or as an image in QREADS. If a re-interpretation or overread is required please follow defined workflow. ?? Provider Not In System IMG DIAGNOSTIC IM AGING PROCEDURES [facility] NA * PET CT Skull to Thigh FDG (12/24/2023 11:31 AM DATABASES SOFTWARE CONSULTANT) Anatomical Region Laterality Modality Body, Nuclear Medicine PET R ST LOS, PET ARZ LOS, Nuclear Medicine PET FLA LOS, Nuclear Medicine N/A Positron Emission Tomography (PET), Positron Emission Tomography (PET) Impressions 12/24/2023 12:34 PM DATABASES SOFTWARE CONSULTANT Overall marked response of the FDG avid hepatic and eduar metastatic lesions. No new metastatic foci. Interval decrease in the number of metastatic pulmonary nodules. However, there is indeterminant mild increased FDG activity in a few residual pulmonary metastatic foci. Narrative 12/24/2023 12:34 PM DATABASES SOFTWARE CONSULTANT EXAM: ??PET CT SKULL TO THIGH FDG Serum glucose at time of F-18 FDG injection was 101 mg/dL. Patient followed standard dietary/fasting requirements for this exam. RADIOPHARMACEUTICAL/MEDS: Route: intravenous fludeoxyglucose F 18 injection PRISON (FDG F-18),14.8 millicurie TECHNIQUE: ??F-18 FDG PET/CT [...] RADIOPHARMACEUTICAL/MEDS: Route: intravenous fludeoxyglucose F 18 injection PRISON (FDG F-18),14.8 millicurie TECHNIQUE: F-18 FDG PET/CT [...] a few residualpulmonary metastatic foci. Noelle Reyes P.A.-C., P.ACandido [place] PRO CEDURES * (ABNORMAL) CEA (Carcinoembryonic Antigen) (12/24/2023 11:21 AM DATABASES SOFTWARE CONSULTANT) Carcinoembryonic Ag (CEA), S 11.4(H) ng/mL 12/24/2023 5:04 PM DATABASES SOFTWARE CONSULTANT [facility] Comment: ----REFERENCE VALUE---- <=3.0 (Non-smokers) Some smokers may have elevated CEA, usually <5.0. ----ADDITIONAL INFORMATION---- The testing method is an immunoenzymatic assay manufactured by [employer]. and performed on the [employer] 800. ? Values obtained with different assay methods or kits may be different and cannot be used interchangeably. ? Test results cannot be interpreted as absolute evidence for the presence or absence of malignant disease. Blood (Blood, Venous) 12/24/2023 11:21 AM DATABASES SOFTWARE CONSULTANT 12/24/2023 4:06 PM DATABASES SOFTWARE CONSULTANT Noelle Reyes P.A.-C., P.A. LAB BLOOD ADD-ON [facility] [address] [place] [address] [facility] [address] [place] [address] * (ABNORMAL) Bilirubin, Direct (12/24/2023 11:21 AM DATABASES SOFTWARE CONSULTANT) Bilirubin, Direct, S 0.4(H) 0.0 - 0.3 mg/dL 12/24/2023 1:06 PM DATABASES SOFTWARE CONSULTANT DT Blood (Blood, Venous) 12/24/2023 11:21 AM DATABASES SOFTWARE CONSULTANT 12/24/2023 11:56 AM DATABASES SOFTWARE CONSULTANT Noelle Reyes P.A.-C., P.A. LAB BLOOD ADD-ON Performing Organization Address [facility]/ZIP Co de Phone Number [facility] [address] [place] [address], [facility] [address] [place] [address] * US abdomen limited-Outside US Body (12/17/2023 11:05 AM DATABASES SOFTWARE CONSULTANT) 12/17/2023 11:0 3 AM DATABASES SOFTWARE CONSULTANT Narrative [facility] - 12/17/2023 2:11 PM DATABASES SOFTWARE CONSULTANT This order has been created and auto-finalized to support the import of outside images. If available, original interpretation can be found on the Media Tab in Chart Review, in Document Viewer, or as an image in QREADS. If a re-interpretation or overread is required please follow defined workflow. ?? Provider Not In System IMG US PROCEDURES [facility] NA * HIV-1/-2 Ag and Ab Screen (05/11/2018 2:37 PM CDT) HIV-1/-2 Ag and Ab Screen, S Negative Negative 05/11/2018 9:11 PM CDT [facility] Comment: Negative result does not rule out HIV infection. If acute HIV infection is suspected in a high-risk individual, submit plasma specimen for HIV-1 RNA quantification test (HIVDQ) and/or HIV-2 DNA/RNA test (FHV2Q). Blood 05/11/2018 2:37 PM CDT 05/11/2018 9:11 PM CDT Nilesh Srivastava Jr., M.D. LAB MICROBIO LOGY - BLOOD ORDERABLES [facility] [address] [place] [address] * HCV Ab Scrn w/Reflex to HCV PCR, Serum (05/11/2018 2:37 PM CDT) HCV Ab Screen, S Negative Negative 05/11/2018 10:27 PM CDT [facility] Comment:Cdzksu-iv-itdzwe rat io is <1.00. Blood (Blood, Venous) 05/11/2018 2:37 PM CDT 05/11/2018 5:48 PM CDT Nilesh Srivastava Jr., M.D. LAB MICROBIO LOGY - BLOOD ORDERABLES [facility] [address] [place] [address] from Last 3 Months or Most Recently Relevant to Health Maintenance Advance Directives For more information, please contact: [phone] * Full Code (Latest Code Status on File) Date Activated Date Inactivated Comments 03/03/2024 7:57 PM 03/05/2024 5:56 PM Question Answer Comments Full Code: Discussed * Full Code Date Activated Date Inactivated Comments 02/18/2022 4:39 PM 02/19/2022 1:12 PM Question Answer Comments Full Code: Discussed * Full Code Date Activated Date Inactivated Comments 07/31/2020 3:20 PM 08/03/2020 2:19 PM Question Answer Comments Full Code: Not Discussed Due to: Patient not available * Full Code Date Activated Date Inactivated Comments 07/31/2020 6:24 AM 07/31/2020 3:20 PM Question Answer Comments Full Code: Discussed * Full Code Date Activated Date Inactivated Comments 09/27/2019 4:51 PM 09/28/2019 3:58 PM Question Answer Comments Full Code: Not Discussed Due to: Patient not available Care Teams Change Agent Relationship Specialty Start Date End Date Elsewhere, Pcp PCP - General Internal Medicine 10/14/22
--- OUTSIDE RECORDS SUMMARY | 2024-03-16 16:41 | XMS_ITS | Encounter Summary ---
Author Name Unknown Organization [facility] Address [address] [place] [id number] Care Team Providers Care Oral Surgery Technician Name Role Phone Elsewhere, Pcp Primary Care Provider Unavailabl e Reason for Referral * Outpatient (Routine) - Authorized Specialty Diagnoses / Procedures Referred By Contac t Referred To Contact Nutrition Diagnoses Malignant Neoplasm Of Rectum (HCC) Florence Parsons M.D. [address] [place] [phone] [facility] Referral ID Status Reason Start Date Expiration Date V isits Requested Visits Authorized [id number] Authorized 03/15/2024 09/14/2025 1 1 * Outpatient (Routine) - Authorized Specialty Diagnoses / Procedures Referred By Contac t Referred To Contact Palliative Medicine Diagnoses . Florence Parsons M.D. 200 [place] [phone] [facility] Referral ID Status Reason Start Date Expiration Date V isits Requested Visits Authorized [id number] Authorized 03/15/2024 09/14/2025 1 1 * Outpatient (Routine) - Authorized Specialty Diagnoses / Procedures Referred By Contac t Referred To Contact Diagnoses Malignant Neoplasm Of Rectum (HCC) Procedures ECG 12 Lead Florence Parsons M.D. 200 [place] [phone] [facility] Referral ID Status Reason Start Date Expiration Date V isits Requested Visits Authorized [id number] Authorized 03/15/2024 03/15/2025 1 1 * Outpatient (Routine) - Authorized Specialty Diagnoses / Procedures Referred By Halima owen Referred To Contact Diagnoses Malignant Neoplasm Of Rectum (HCC) Procedures US Paracentesis with Imaging Guidance Florence Parsons M.D. [address] [place] [phone] [facility] Referral ID Status Reason Start Date Expiration Date V isits Requested Visits Authorized [id number] Authorized 03/15/2024 03/15/2025 1 1 Reason for Visit * Outpatient (Routine) - Closed Specialty Diagnoses / Procedures Referred By Halima owen Referred To Contact Palliative Medicine Diagnoses . Catrachita Padilla M.D., M.S. [address] [place] [phone] [facility] Referral ID Status Reason Start Date Expiration Date Visits Re quested Visits Authorized [id number] Closed 12/24/2023 06/24/2025 1 1 Encounter Details Date Type Department Care Team (Late st Contact Info) Description 03/15/2024 8:30 AM CDT Telemedicine Department of Palliative Care in [place], [place] [address] [place] [phone] Kari Austin APRN, C.N.P., D.N.P. [address] [place] [phone] Florence Parsons M.D. [address] [place] [phone] Malignant Neoplasm Of Rectum (HCC) (Primary Dx) Social History Tobacco Use Types [...] How often do you attend chur or amish services? Never 02/03/2023 Do you [...] 0 04/25/2019 [facility] - Occupational Stress Questionnaire Answer [...] degree (e.g., MA, MS, Ana Lilia, MEd, HEAD STRENGTH AND CONDITIONING COACH, GORDO) 02/15/2022 Sex and Gender Information Value Date Recorded Sex Assigned at Male 04/23/2018 1:23 PM CDT Gender Identity Male 04/23/2018 1:23 PM CDT Sexual Orientation Straight 04/23/2018 1: 23 PM CDT documented as of this encounter Progress Notes * Mercy Flores M.D. - 03/15/2024 8:30 AM CDT [facility] Palliative Medicine Physician Attestation I have seen and evaluated the patient along with Dr. Parsons, Hospice and Palliative Medicine Fellow. I have reviewed the pertinent history and discussed the impression/plan with the resident/fellow. I agree with the history, examination, impression, and recommendations as documented in today's note from the resident/fellow except as documented below. Briefly, Mr. Luis Tabares is a 43yo M with metastatic rectal cancer (dx April 2018, mets to liver, lymph, lung) progressed through multiple lines of [id number] followed in palliative care clinic for cancer-associated symptom management. Recent admission to inpatient palliative care service (03/03-03/05/24) for malaise, abdominal pain, nausea/vomiting during which imaging demonstrated continued progression of disease in lungs, live, lymph, as well as ascites concerning for peritoneal carcinomatosis,and increased biliary duct dilation with concern for compression from adenopathy. Had paracentesis while hospitalized with 800cc removed. ERCP was completed outpatient after discharge. Today, reports reaccumulation of abdominal fluid and would like to schedule another paracentesis. Ongoing abdominal and back pain which unfortunately did not improve after last paracentesis. Pain is poorly controlled and waking him at night. Is using methadone 2.5mg BID with hydromorphone 4 mg q4h as needed (has been using a 4-6x per day, most recently 6x daily). Hydromorphone pain relief is lasting 3 hours on average and pain wakes patient at night. Nausea has improved though poor oral intake continues. RECOMMENDATIONS: # Pain, abdomen and back, cancer-associated INCREASE methadone 5mg BID Currently using methadone 2.5mg BID with an additional > 100mg OME in short- acting hydromorphone QTc 455 on EKG 03/03 Continue hydromorphone 4mg q4h prn Repeat EKG in one week # Poor PO intake # Abdominal distention # Ascites IR consult for paracentesis Nutrition consult Thank you for this consult. We have provided the patient with our contact information and instructions on how to reach us. We have discussed recommendations to call us regarding new/worsening symptoms or concerns. We will continue to collaborate with the patient's primary outpatient team and will co ntinue to follow along. . Angi Flores M.D. Division of Community Internal Medicine, Geriatrics, and Palliative Care Section of Palliative Care * Florence Parsons M.D. - 03/15/2024 8:30 AM CDT SUBJECTIVE CHIEF COMPLAINT/REASON FOR VISIT Luis Tabares is a 43 y.o. male from [facility] with metastatic rectal cancer who is followed in the outpatient Palliative Care Clinic for non- pain symptoms and pain. established patient visit Visit conducted via virtual visit. The following person/people were also present during the discussion: None Medical Record review was conducted prior to the virtual visit. Date of last in-person clinic visit: December 24 2023 Interval History: Notes two pain issues: Back pain and abdominal pain. Significant component of back pain is musculoskeletal associated briefly responsive to nerve block procedures recently worsening in setting of wearing off of injection. Back pain also was associated with rib pain. Is responsive to hydromorphone 4mg notes he is taking every 4 hours most days currently. States it works for about 3 hours. Endorses adherence with his methadone. Additionally also has associated goal abdominal pain in setting of known malignancy. Pain throughout belly worse in right upper quadrant. Notes in Nov. He underwent intercostal nerve block which was effective however has now done repeat and states it hasn't taken. Advised on following up with procedural team on next steps. Reports significant abdominal pain and bloating. Reports paracentesis improved bloating predominantly less improvement in pain. He is requesting if repeat paracentesis can be trialed as an outpatientand was advised I would place consult. Also notes associated satiety. Notes that he will eat a few bites at a time before feeling full. Heis concerned about implications of potential weight loss on his treatment plan in his requesting a dietitian consult to discuss strategies to manage his malignancy-associated satiety. Had several additional questions. Was inquiring about Levaquin noting he was given 14 day supply but told to take less than that without a specific number. Per chart review of documentation from ERCPteam plan was to take for 5 days and I educated him on this. Was inquiring about need to take dexamethasone. Notes he has been taking it in association with his treatments but hasn't had treatment inweeks so was wondering if it would be continued. Advised discussion with oncology team at next appt. Additionally noted to have significant nausea with emesis now improved with combination of paracentesis and ERCP significantly reduced compared to before. [place] Scores Who completed this form?: Patient No Pain = 0 and Worst Pain = 10: 8 No Fatigue = 0 and Worst Fatigue = 10: 4 No Nausea = 0 and Worst Nausea = 10: 5 No Depression = 0 and Worst Depression = 10: 2 No Anxiety = 0 and Worst Anxiety = 10: 4 No Drowsiness = 0 and Worst Drowsiness = 10 : 7 No Shortness of Breath = 0 and Worst Shortness of Breath = 10: 8 Best Appetite = 0 and Worst Appetite = 10: 10 Best Feeling of Well Being = 0 and Worst Feeling of Well Being = 10: 6 Best Sleep = 0 and Worst Sleep = 10: 5 No Financial Distress (Distress/suffering experienced secondary to financial issues) = 0 and Worst Financial Distress = 10: 4 No Spiritual Pain (Pain deep in your soul/being that is not physical) = 0 and Worst Spiritual Pain = 10: 0 OBJECTIVE PHYSICAL EXAM Physical Exam General: Alert, appropriately interactive over the phone, no acute distress Lungs: non-labored breathing pattern during conversation Psychiatric: Oriented X 3, intact recent and remote memory, judgment and insight, congruent mood and affect. ASSESSMENT / PLAN Luis Tabares is a 43 y.o. male from [facility] with metastatic rectal cancer who is followed in the outpatient Palliative Care Clinic for non- pain symptoms and pain. For the last month has been navigating significant nausea and vomiting which seems to have cold offin the setting of getting ERCP and paracentesis. This has left significant pain as a major component of his care. Pain currently not well controlled has advanced by the fact that he is requiring oralopioids every 4 hours. I do think his pain is multifactorial incorporating both components of malignant pain which I suspect is the predominant pain component inside of his abdomen and nonmalignant pain which I suspect is the primary component in his back. I would favor starting by increasing his methadone and referring for paracentesis to see if these measures make a difference. If not would note in the past there is a reported neuropathic component and would consider if there is utility in treating this with addition of neuropathic agent. RECOMMENDATIONS #Malignancy associated abdominal pain #Nonmalignant chronic back pain -increase methadone to 5 mg b.i.d. plan EKG check in 1 week -continue oral Dilaudid 4 mg every 4 hours as needed -continue to follow with pain management to see if candidate for further interventional techniques for pain. -if not doing well could consider addition of neuropathic agent at next visit or earlier if needed. Opioid Summary Opioid Need: This patient has a condition that necessitates treatment with an opioid for longer than 7 days. Additionally, a non-opioid alternative was not appropriate or inadequate to manage patient???s pain. We have reviewed risks, benefits and alternatives related to opioid prescribing as well as relevant mitigation strategies. Diagnosis related to controlled substance prescribing: Rectal cancer [place] CHILDCARE PROVIDER Review: We have reviewed the patient's record in the [place] prescription monitoring program 03/15/2024. Opioid Toxicity Review: We have reviewed the risks of opioid therapy and completed an assessment oftoxicities. Opioid Aberrant Use Concerns: None Recommended Opioid Regimen as of 03/15/2024.: as documented above Current Oral Morphine Equivalents (OME/MME): 5 mg of methadone b.i.d. plus 96 OMEs short-acting Opioid Risk Score: Last Opioid Risk Tool charting Flowsheet Row Comprehensive Visit from 09/26/2023 in Department of Palliative Care in [place], [place] ORT Total Score (max 26) 1 Naloxone prescribed: yes #Ascites -OP referral for paracentesis sent. If requiring frequently may need to consider PleurX in future #Malignancy-Associated Satiety -Referral to nutrition at patient request Follow up visit: provider 1 month, clinic visit I personally spent a total of 58 minutes. Consult conducted via real-time audio/video technology by Florence Parsons M.D. in [facility] to the patient in Patient's Home Florence Parsons M.D. documented in this encounter Miscellaneous Notes * Addendum Note - Florence Parsons M.D. - 03/15/2024 8:30 AM CDTAddended by: FLORENCE PARSONS on: 03/15/2024 10:03 AM Modules accepted: Orders * Addendum Note - Florence Parsons M.D. - 03/15/2024 8:30 AM CDTAddended by: FLORENCE PARSONS on: 03/15/2024 10:53 AM Modules accepted: Orders documented in this encounter Plan of Treatment Upcoming Encounters Date Type Department Care Team (Latest Contact Info) Description 03/18/2024 9:15 AM CDT Appointment Department of Radiology, [facility] in [address] [phone] Florence Parsons M.D. [address] [place] [phone] 03/23/2024 7:30 AM CDT Clinical Communication Virtual Review in [place], [place] 200 [place] [phone] 03/24/2024 11:00 AM CDT Appointment Department of Radiology, [facility], in [address] [phone] Ned Alegria M.D. [address] [place] [phone] 03/24/2024 12:20 PM CDT Lab Department of Infusion Therapy in [place], [place] [address] [place] [phone] Ned Alegria M.D. [address] [place] [phone] 03/24/2024 1:00 PM CDT Ancillary Procedure Department of Cardiovascular Medicine in [place], [place] [address] [place] [phone] Florence Parsons M.D. [address] [place] [phone] 03/24/2024 3:30 PM CDT Office Visit Department of Oncology in [address] [phone] Ned Alegria M.D. [address] [place] [phone] 04/14/2024 8:00 AM CDT Clinical Communication Virtual Review in [place], [place] 200 [place] [address] 04/19/2024 10:30 AM CDT Office Visit Department of Palliative Care in [address] [phone] Patti Rush B.M.B.S., B.M.B.Ch. [address] [place] [phone] 05/03/2024 9:30 AM CDT Appointment Division of Gastroenterology in [address] [phone] Corrina Jaime M.D. [address] [place] [phone] Drake Brennan M.D. [address] [place] [phone] (work) Scheduled Orders Name Type Priority Associated Diagnoses Order Schedule US Paracentesis with Imaging Guidance Imaging RAD - Routine (most inpatients and all outpatients) Malignant Neoplasm Of Rectum (HCC) Expected: 03/24/2024, Expires: 06/14/2025 ECG 12 Lead ECG Routine Malignant Neoplasm Of Rectum (HCC) Expected: 03/22/2024, Expires: 06/14/2025 Scheduled Referrals Name Type Priority Associated Diagnoses Order Schedule Palliative Care office visit (clinic) Outpatient Referral Routine Expected: 04/14/2024 (Approximate), Expires: 06/14/2025 Nutrition - Gastroenterology medical nutrition therapy consult (clinic) Outpatient Referral Routine Malignant Neoplasm Of Rectum (HCC) Expected: 03/15/2024, Expires: 06/14/2025 documented as of this encounter Goals Goal Patient Goal Type Associated Problems Recent Progress Patient-Stated? Author Your pain? Symptom Management 9(11/20/2022 2:41 PM METAL TESTER) No Phyllis-Girma Bush, RCandidoN., O.C.N. Note: 05/24/2021: [...] Pain rating over the past 7 days: / Recommendations at initial call and response: Mr. [...] documented as of this encounter Care Teams Oral Surgery Technician Relationship Specialty Start Date End Date Elsewhere, Pcp PCP - General Internal Medicine 10/14/22 documented as of this encounter
--- OUTSIDE RECORDS SUMMARY | 2024-03-16 16:41 | XMS_ITS ---
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 Overview: Added automatically from request for surgery [id number] Secondary Malignant Neoplasm Of Lung Laterality Unknown 03/30/2020 Pulmonary Nodule Computed Tomography Indetermina te 09/27/2019 Nodules Pulmonary Multiple 09/10/2019 Takedown Ileostomy Status Post (Reversal) 2018 Ileostomy Status 12/04/2018 Overview: Added automatically from request for surgery [id number] Thrombocytopenia Drug Induced 12/02/2018 Follow Up Examination [...] rectal cancer, further evaluation at [facility] Current Oncology Plans Panitumumab / Irinotecan* [...] cGy 5,250 cGy F1_Rectum 07/01/2018 41 28 230 cGy 6,440 cGy Reference Point Last Treated On Elapsed Days Session Dose Total Dose [id number] 06/13/2021 2 1,200 cGy 3,600 cGy [id number] Celiac 09/20/2020 20 350 cGy 5,250 cGy [id number] Med 09/20/2020 20 350 cGy 5,250 cGy [id number] 07/01/2018 41 230 cGy 6,440 cGy Lifetime Dose Tracking * Chemical Lifetime Dose Automatic Entry Manual Entr y Radiation 690.09 mGy 690.09 mGy 0 mGy Fluoro Time 23.75 minutes 23.75 minutes 0 minutes DAP (Gy-cm2) 50.851 Gy-cm2 50.851 Gy-cm2 0 Gy-cm2 DAP (uGy-m2) 41.22 uGy-m2 41.22 uGy-m2 0 uGy-m2 Resolved Problems Problem Noted Date Diagnosed Date Resolved Date Abdominal Pain 02/19/2022 02/19/2022 Myocardial Infarction Type 2 05/26/2018 05/27/2018 Overview: Capecitabine-induced coronary vasospasm
--- OUTSIDE RECORDS SUMMARY | 2024-03-16 16:41 | XMS_ITS ---
Author Name Unknown Organization [facility] Address [address] [place] [address] Care Team Providers Care Swimming Pool Cleaner Name Role Phone Unavailable Unavailable Unavailable Surgery Details Not on file Complications Check Surgery Details section. Procedure Estimated Blood Loss Check Surgery Details section. Procedure Findings Check Surgery Details section. Procedure Specimens Taken Check Surgery Details section.
--- OUTSIDE RECORDS SUMMARY | 2024-03-16 16:41 | XMS_ITS | Encounter Summary ---
Author Name Unknown Organization [facility] Address [address] [place] [address] Care Team Providers Care Digital Print Operator Name Role Phone Elsewhere, Pcp Primary Care Provider Unavailabl e Encounter Details Date Type Department Care Team (Latest Contact Info) Description 03/08/2024 2:50 PM CDT Ancillary Procedure Department of Gastroenterology Social [...] week 02/03/2023 How often do you attend [facility] or bahai services? Never 02/03/2023 Do [...] 0 04/25/2019 [facility] - [...] money to buy more. Never true 03/03/20 24 Within the past 12 months, t he [...] degree (e.g., MA, MS, Ana Lilia, MEd, ORDNANCE TRUCK INSTALLATION MECHANIC, GORDO) 02/15/2022 Sex and Gender Information Value Date Recorded Sex Assigned at Male 04/23/2018 1:23 PM CDT Gender Identity Male 04/23/2018 1:23 PM CDT Sexual Orientation Straight 04/23/2018 1: 23 PM CDT documented as of this encounter Plan of Treatment Upcoming Encounters Date Type Department Care Team (Latest Contact Info) Description 03/18/2024 9:15 AM CDT Appointment Department of Radiology, [facility], in [place], [place] [address] [place] [phone] Zeke Downey M.D. [address] [place] [phone] 03/23/2024 7:30 AM CDT Clinical Communication Virtual Review in [place], [place] 200 [place] [address] 03/24/2024 11:00 AM CDT Appointment Department of Radiology, [facility], in [place], [place] [address] [place] [phone] Ned Alegria M.D. [address] [place] [phone] 03/24/2024 12:20 PM CDT Lab Department of Infusion Therapy in [place], [place] [address] [place] [phone] Ned Alegria M.D. [address] [place] [phone] 03/24/2024 1:00 PM CDT Ancillary Procedure Department of Cardiovascular Medicine in [place], [place] [address] [place] [phone] Zeke Downey M.D. [address] [place] [phone] 03/24/2024 3:30 PM CDT Office Visit Department of Oncology in [place], [place] [address] [place] [phone] Ned Alegria M.D. [address] [place] [phone] 04/14/2024 8:00 AM CDT Clinical Communication Virtual Review in [place], [place] [address] [place] [address] 04/19/2024 10:30 AM CDT Office Visit Department of Palliative Care in [place], [place] [address] [place] [phone] Patti Rush B.M.B.S., B.M.B.Ch. [address] [place] [phone] 05/03/2024 9:30 AM CDT Appointment Division of Gastroenterology in [place], [place] [address] [place] [phone] Corrina Jaime M.D. [address] [place] [phone] Drake Brennan M.D. [address] [place] [phone] documented as of this encounter Goals Goal Patient Goal Type Associated Problems Recent Progress Patient-Stated? Author Your pain? Symptom Management 9(11/20/2022 2:41 PM TRAVEL SERVICES PROFESSIONAL) No Phyllis-Girma Bush R.N., O.C.N. Note: 05/24/2021: [...] Associated Diagnosis Comments GASTROENTEROLOGY IMAGE EXAM Routine 03/08/2024 2:50 PM CDT documented in this encounter Results * ERCP-Gastroenterology Image Exam (03/08/2024 2:50 PM [...] as of this encounter Care Teams Digital Print Operator Relationship Specialty Start Date End Date Elsewhere, Pcp PCP - General Internal Medicine 10/14/22 documented as of this encounter
--- OUTSIDE RECORDS SUMMARY | 2024-03-16 16:41 | XMS_ITS | Encounter Summary ---
Author Name [facility] Organization [facility] Address [address] [place] [address] Care Team Providers Care Pharmacy Technician Trainee Name Role Phone Elsewhere, Pcp Primary Care Provider Unavailabl e Reason for Referral * Outpatient (Routine) - Authorized Specialty Diagnoses / Procedures Referred By Halima t Referred To Contact Diagnoses Elevated Bilirubin Secondary Malignant Neoplasm Liver (HCC) Elevated Liver Function Test Procedures ERCP Corrina Jaime M.D. [address] [place] [phone] [facility] Referral ID Status Reason Start Date Expiration Date V isits Requested Visits Authorized [id number] Authorized 03/12/2024 03/12/2025 1 1 Encounter Details Date Type Department Care Team (Latest Contact Info) Description 03/12/2024 Orders Only Division of Gastroenterology in [place], [place] [address] [place] [phone] Corrina Jaime M.D. [address] [place] [phone] Elevated Bilirubin (Primary Dx); Secondary Malignant Neoplasm Liver (HCC); Elevated Liver Function Test Social History Tobacco Use Types Packs/Day Years [...] How often do you attend chur or anabaptism services? Never 02/03/2023 Do you [...] degree (e.g., MA, MS, Ana Lilia, MEd, SHRIMP TRAWLER CAPTAIN, [employer]) 02/15/2022 Sex and Gender Information Value Date Recorded Sex Assigned at Male 04/23/2018 1:23 PM CDT Gender Identity Male 04/23/2018 1:23 PM CDT Sexual Orientation Straight 04/23/2018 1: 23 PM CDT documented as of this encounter Plan of Treatment Upcoming Encounters Date Type Department Care Team (Latest Contact Info) Description 03/18/2024 9:15 AM CDT Appointment Department of Radiology, [facility], in [place], [place] [address] [place] [phone] Zeke Downey M.D. [address] [place] [phone] 03/23/2024 7:30 AM CDT Clinical Communication Virtual Review in [place], [place] 200 [place] [address] 03/24/2024 11:00 AM CDT Appointment Department of Radiology, [facility], in [address] [phone] Ned Alegria M.D. [address] [place] [phone] 03/24/2024 12:20 PM CDT Lab Department of Infusion Therapy in [address] [phone] Ned Alegria M.D. [address] [place] [phone] 03/24/2024 1:00 PM CDT Ancillary Procedure Department of Cardiovascular Medicine in [address] [phone] Zeke Downey M.D. [address] [place] [phone] 03/24/2024 3:30 PM CDT Office Visit Department of Oncology in [address] [phone] Ned Alegria M.D. [address] [place] [phone] 04/14/2024 8:00 AM CDT Clinical Communication Virtual Review in [place], [place] 200 [place] [phone] 04/19/2024 10:30 AM CDT Office Visit Department of Palliative Care in [address] [phone] Patti Rush B.M.B.S., B.M.B.Ch. [address] [place] [phone] 05/03/2024 9:30 AM CDT Appointment Division of Gastroenterology in [address] [phone] Corrina Jaime M.D. [address] [place] [phone] Drake Brennan M.D. [address] [place] [phone] Scheduled Orders Name Type Priority Associated Diagnoses Orde r Schedule ERCP GI Routine Elevated Bilirubin Secondary Malignant Neoplasm Liver (HCC) Elevated Liver Function Test Expected: 05/07/2024, Expires: 06/11/2025 documented as of this encounter Goals Goal Patient Goal Type Associated Problems Recent Progress Patient-Stated? Author Your pain? Symptom Management 9(11/20/2022 2:41 PM MANAGER HUMAN CAPITAL) No Fee-Girma Bush, R.N., O.C.N. Note: 05/24/2021: Pain algorithm completed. [facility] 05/24/2021: Followup 06/07 via portal [...] as of this encounter Visit Diagnoses Diagnosis Elevated Bilirubin- Primary Secondary Malignant Neoplasm Liver (HCC) Elevated Liver Function Test documented in this encounter Additional Health Concerns Assessment Noted Time PHQ-9 Depression Total Score: 7 05/26/20 18 10:22 PM CDT documented as of this encounter Care Teams Pharmacy Technician Trainee Relationship Specialty Start Date End Date Elsewhere, Pcp PCP - General Internal Medicine 10/14/22 documented as of this encounter
--- OUTSIDE RECORDS SUMMARY | 2024-03-16 16:41 | XMS_ITS | Encounter Summary ---
Author Name Unknown Organization [facility] Address [address] [place] [address] Care Team Providers Care Family Consumer Science Fcs Teacher Name Role Phone Elsewhere, Pcp Primary Care Provider Unavailabl e Encounter Details Date Type Department Care Team (Late st Contact Info) Description 03/08/2024 Orders Only Division of Gastroenterology in [place], [place] [address] [place] [phone] Mralena Patino M.D. [address] [place] [phone] Social History Tobacco Use Types Packs/Day Years [...] often do you attend chur ch or roman catholic services? 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 [address] [place] [phone] 03/23/2024 7:30 AM CDT Clinical Communication Virtual Review in [place], [place] 200 [place] [address] 03/24/2024 11:00 AM CDT Appointment Department of Radiology, [facility] [place], in [place], [place] [address] [place] [phone] Ned Alegria M.D. [address] [place] [phone] 03/24/2024 12:20 PM CDT Lab Department of Infusion Therapy in [place], [place] [address] [place] [phone] Ned Alegria M.D. [address] [place] [phone] 03/24/2024 1:00 PM CDT Ancillary Procedure Department of Cardiovascular Medicine in [place], [place] [address] [place] [phone] Zeke Downey M.D. [address] [place] [phone] 03/24/2024 3:30 PM CDT Office Visit Department of Oncology in [place], [place] [address] [place] [phone] Ned Alegria M.D. [address] [place] [phone] 04/14/2024 8:00 AM CDT Clinical Communication Virtual Review in [address] [phone] 04/19/2024 10:30 AM CDT Office Visit Department of Palliative Care in [address] [phone] Patti Rush B.M.B.S., B.M.B.Ch. [address] [place] [phone] 05/03/2024 9:30 AM CDT Appointment Division of Gastroenterology in [place], [place] [address] [place] [address] Corrina Jaime M.D. [address] [place] [phone] Drake Brennan M.D. [address] [place] [phone] documented as of this encounter Goals Goal Patient Goal Type Associated Problems Recent Progress Patient-Stated? Author Your pain? 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 Note: 05/24/2021: Pain algorithm completed. [facility] [...] documented as of this encounter Care Teams Family Consumer Science Fcs Teacher Relationship Specialty Start Date End Date Elsewhere, Pcp PCP - General Internal Medicine 10/14/22 documented as of this encounter
--- OUTSIDE RECORDS SUMMARY | 2024-03-16 16:41 | XMS_ITS | Referral Summary ---
Author Name Unknown Organization [facility] Address [address] [place] [address] Care Team Providers Care Child And Family Services Worker Name Role Phone Elsewhere, Pcp Primary Care Provider Unavailabl e Source Comments Patient records contain information from all sites at [facility]. For routine questions regarding patient records, call [phone] during business hours, M-F 8:00 AM - 5:00 PM Central Time. Record requests for emergency care only can be directed to [phone] at any time.[facility] Encounters Date Type Department Care Team Description 03/15/2024 8:30 AM CDT Telemedicine Department of Palliative Care in [place], [place] [address] [place] [address] Kari Austin APRN, C.N.P., D.N.P. Zeke Downey M.D. Malignant Neoplasm Of Rectum (HCC) (Primary Dx) 03/12/2024 Orders Only Division of Gastroenterology in [place], [place] [address] [place] [address] Corrina Jaime M.D. Elevated Bilirubin (Primary Dx); Secondary Malignant Neoplasm Liver (HCC); Elevated Liver Function Test 03/08/2024 2:50 PM CDT Ancillary Procedure Department of Gastroenterology 03/08/2024 Orders Only Division of Gastroenterology in [place], [place] [address] [place] [address] Marlena Patino M.D. 03/08/2024 2:41 PM CDT - 03/08/2024 11:59 PM CDT Hospital Encounter Department of Radiology, [facility] in [place], [place] [address] [place] [address] Tracie Tai APRN, C.N.P. Malignant Neoplasm Of Rectum (HCC); Secondary Malignant Neoplasm Colon (HCC); Secondary Malignant Neoplasm Liver (HCC) Discharge Disposition: Home or Self Care 03/08/2024 3:34 PM CDT Anesthesia Event Division of Gastroenterology in [place], [place] [address] [place] [address] Kun Rasmussen APRN, CRNA Kor, Benjamin T, M.D. 03/08/2024 Orders Only Division of Gastroenterology in [place], [place] [address] [place] [address] Shaila Aparicio APRN, C.N.P., Iris.N.P., M.S.N. 03/08/2024 1:46 PM CDT - 03/08/2024 2:40 PM CDT Hospital Encounter Division of Gastroenterology in [place], [place] [address] [place] [address] Viraj Mesa M.D. Drake Brennan M.D. Pearson, Randall K, M.D. Malignant Neoplasm Of Rectum (HCC); Secondary Malignant Neoplasm Colon (HCC); Secondary Malignant Neoplasm Liver (HCC) Discharge Disposition: Home or Self Care 03/03/2024 9:24 AM CDT - 03/05/2024 3:33 PM CDT Hospital Encounter [facility], Seventh Floor [address] [place] [address] Daniela Brownlee P.A.-C., M.S. Denice Guerrero M.D. Abdominal Pain (Primary Dx); Nausea And Vomiting; Ascites; Malignant Neoplasm Of Rectum (HCC); Elevated Liver Function Test; Elevated Bilirubin Discharge Disposition: Home or Self Care 03/04/2024 3:05 PM CDT Ancillary Procedure Department of Radiology in [place], [place] [address] [place] [address] Viraj Mesa M.D. 03/03/2024 Clinical Communication Division of Gastroenterology in [place], [place] [address] [place] [address] Margaret Baptiste M.D., M.S. 03/03/2024 Orders Only Division of Gastroenterology in [place], [place] [address] [place] [address] Shaila Aparicio APRN, C.N.P., D.N.P., M.S.N. 03/03/2024 Orders Only Division of Gastroenterology in [place], [place] [address] [place] [address] Sharon Villanueva M.D. 03/01/2024 Orders Only Department of Oncology in [place], [place] [address] [place] [address] Amy Neff M.D. Malignant Neoplasm Of Rectum (HCC) (Primary Dx) 02/05/2024 7:26 AM CDT - 02/05/2024 11:59 PM CDT Hospital Encounter Division of Pain Medicine in [place], [place] [address] [place] [address] Sean Shen D.O. Pain Chest Wall; Pain Neuropathic; Pain Post Thoracotomy Chronic Discharge Disposition: Home or Self Care 01/30/2024 Refill Department of Oncology in [address] [address] Kristi Dominique M.D. Med Refill 01/26/2024 Orders Only Department of Oncology in [address] [address] Noelle Reyes, Khloe.-Tristan., P.A. Malignant Neoplasm Of Rectum (HCC) (Primary Dx) 01/26/2024 Refill Department of Palliative Care in [place], [place] [address] [place] [phone] Jimbo Coe APRN, C.N.P., D.N.P. Med Change Request 01/25/2024 Refill Department of Palliative Care in [place], [place] [address] [place] [phone] Catrachita Padilla M.D., M.S. Med Refill 01/22/2024 3:30 PM GOLF BALL TRIMMER Telemedicine Department of Palliative Care in [place], [place] [address] [place] [phone] Aylin Smith APRN, C.N.P., M.S.N. Judy Herron M.D. Malignant Neoplasm Of Rectum (HCC) (Primary Dx); Pain Cancer Associated 01/21/2024 Refill Department of Oncology in [address] [address] Kristi Dominique M.D. Med Refill 01/14/2024 Clinical Communication Department of Spine in [address] [address] Lilia Huggins, R.N. Follow-up ([facility] is calling to complete your 3-month follow-up PROMIS-CAT questionnaires. You will receive questionnaires at different timepoints in the future. You can complete the current questionnaires in your portal and no return call is necessary. If you have any questions, please call us at: [phone]. Thank you!/) 12/24/2023 2:15 PM GOLF BALL TRIMMER Office Visit Department of Palliative Care in [address] [address] Aylin Smith APRN, C.N.Raghu., M.S.N. Catrachita Padilla M.D., M.S. 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 1 each 06/12/20 21 Active LACTOBACILLUS ACIDOPHILUS ORAL Take [...] SPRAYS TO BOTH NOSTRILS ONCE DAILY 12/10/19 23 Active potassium chloride (K-TAB) 20 [...] Use daily . 118 mL 3 10/28/20 23 Active hydrocortisone 2.5 % ointment Apply 1 Application topically 2 (two) times a day. Apply to affected areas of the face and groin twice daily . 30 g 3 10/28/20 23 Active triamcinolone (KENALOG) 0.1 % cream Apply 1 Application topically 2 (two) times a day as needed (Rash). Apply to affected areas of the body twice daily . 240 g 3 10/28/20 23 Active melatonin [...] tablet Take 100 mg by mouth. 10/14/20 024 Discontinued minocycline (DYNACIN) 100 mg tablet Take 100 mg by mouth 2 (two) times a day. 10/14/20 024 Discontinued nitroglycerin (Nitrostat) 0.[address] 0.4 mg under the tongue. 09/26/20 024 Discontinued pregabalin (LYRICA) 25 mg capsule Take 1 capsule (25 mg total) by mouth 2 (two) times a day for 5 days, THEN 2 capsules (50 mg total) 2 (two) times a day for 5 days, THEN 3 capsules (75 mg total) 2 (two) times a day for 5 days. 60 capsule 12/03/19 024 Discontinued(St op Taking at Discharge) pregabalin [...] Take 1 capsule by mouth daily. 11/27/19 024 Discontinued ibuprofen (ADVIL,MOTRIN) 200 mg tablet Take 3 tablets (600 mg total) by mouth every 6 (six) hours as needed for pain. 01/22/20 024 Discontinued(St op Taking at Discharge) doxycycline [...] for 14 days. 14 tablet 03/08/20 24 04/29/2 024 Discontinued(Th erapy completed) methadone (DOLOPHINE) 5 [...] Overview: Added automatically from request for surgery [id number] Secondary Malignant Neoplasm Of Lung Laterality Unknown 03/30/2020 Pulmonary Nodule Computed Tomography Indetermina te 09/27/2019 Nodules Pulmonary Multiple 09/10/2019 Takedown Ileostomy Status Post (Reversal) 2018 Ileostomy Status 12/04/2018 Overview: Added automatically from request for surgery [id number] Thrombocytopenia Drug Induced 12/02/2018 Follow Up Examination [...] rectal cancer, further evaluation at [facility] Resolved Problems Problem Noted Date Diagnosed [...] 04/25/2019 [facility] - Occupational Stress Questionnaire Answer Date [...] degree (e.g., MA, MS, Ana Lilia, MEd, SALVAGE DETERMINER, GORDO) 02/15/2022 Sex and Gender Information Value [...] 9:15 AM CDT Appointment Department of Radiology, [facility] in [place], [place] [address] [place] [phone] Zeke Downey M.D. [address] [place] [phone] 03/23/2024 7:30 AM CDT Clinical Communication Virtual Review in [place], [place] [address] [place] [address] 03/24/2024 11:00 AM CDT Appointment Department of Radiology, [facility] in [place], [place] [address] [place] [phone] Ned Alegria M.D. [address] [place] [phone] 03/24/2024 12:20 PM CDT Lab Department of Infusion Therapy in [place], [place] [address] [place] [phone] Ned Alegria M.D. [address] [place] [phone] 03/24/2024 1:00 PM CDT Ancillary Procedure Department of Cardiovascular Medicine in [place], [place] [address] [place] [phone] Zeke Downey M.D. [address] [place] [phone] 03/24/2024 3:30 PM CDT Office Visit Department of Oncology in [address] [address] Ned Alegria M.D. [address] [place] [phone] 04/14/2024 8:00 AM CDT Clinical Communication Virtual Review in [place], [place] [address] [place] [address] 04/19/2024 10:30 AM CDT Office Visit Department of Palliative Care in [address] [phone] Patti Rush B.Munira.B.S., B.M.B.Ch. [address] [place] [phone] 05/03/2024 9:30 AM CDT Appointment Division of Gastroenterology in [address] [phone] Corrina Jaime M.D. [address] [place] [phone] Drake Brennan M.D. [address] [place] [address], [place] [address] Goals Goal Patient Goal Type Associated Problems Recent Progress Patient-Stated? Author Your pain? Symptom Management 9(11/20/2022 2:41 PM GOLF BALL TRIMMER) No Fee-Girma Bush R.N., O.C.N. Note: 05/24/2021: [...] he can contact us again if needed. [facility] Medical Devices Implanted Type Area Utility System Operator Device Identifier Shelf Expiration Date Model / Serial / Lot Merecr Adhn Seprafilm 5x6 - [id number] Implanted:Qty : 1 on 08/21/2018 by Jamin Huerta M.D. at [facility] Hardware e.g. pins/screws/landon s [employer] 4301-02 / / Mercer Adhn Seprafilm 5x6 - [id number] Implanted:Qty : 1 on 08/21/2018 by Jamin Huetra M.D. at [facility] Hardware e.g. pins/screws/landon s [employer] 4301-02 / / Mercer Adhn Seprafilm 5x6 - [id number] Implanted:Qty : 1 on 08/21/2018 by Jamin Huerta M.D. at [facility] Hardware e.g. pins/screws/landon s [employer] 4301-02 / / Prt Cath Infus Mri 6f - [id number] Implanted:Qty : 1 on 04/05/2020 by Afsaneh Stephen M.D. at [facility] Implantable Port C.R.Bard 06/16/2021 [id number] / / [id number] [facility] Pn Wdg 8.5fx22 - [id number] Implanted:Qty : 1 on 03/08/2024 by Drake Brennan M.D. at [facility] Kulkarni/Gonda Pancreatic Stent [employer] 01/01/2027 [id number] / / [id number] Description:8.5x22 Explanted Type Area Utility System Operator Device Identifier Shelf Expiration Date Model / Serial / Lot Prt Cath Infus Mri 8f - [id number] Implanted:Qty : 1 on 09/30/2018 by Afsaneh Stephen M.D. 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) COMPREHENSIVE METABOLIC PANEL, S/P Routine 12/24/2023 11:21 AM GOLF BALL TRIMMER Malignant Neoplasm Of Rectum (HCC) Secondary Malignant Neoplasm Colon (HCC) Secondary Malignant Neoplasm Liver (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) CARCINOEMBRYONIC AG (CEA), S Routine 12/24/2023 11:21 AM GOLF BALL TRIMMER Malignant Neoplasm Of Rectum (HCC) Secondary Malignant Neoplasm Colon (HCC) Secondary Malignant Neoplasm Liver (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) CBC WITH DIFFERENTIAL, B Routine 12/24/2023 11:21 AM GOLF BALL TRIMMER Malignant Neoplasm Of Rectum (HCC) Secondary Malignant Neoplasm Colon (HCC) Secondary Malignant Neoplasm Liver (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 Notable Events: no complications Kun Rasmussen TELEVISION REPORTER, SENIOR STAFF CONSULTANT ANESTHESIA O RDERABLES * ERCP-Gastroenterology Image Exam (03/08/2024 2:50 PM CDT) 03/08/2024 2:47 PM CDT Narrative [facility] - 03/08/2024 4:49 PM CDT This order has been created and auto-finalized to support the import of images acquired without order. The clinical documentation to support these images can be found on the encounter that produced images. Provider Not In System IMG NON RAD IMAGI NG PROCEDURES IIMS NA * ERCP (03/08/2024 2:47 PM CDT) 03/08/2024 2:47 PM CDT Impressions [facility] - 03/08/2024 4:43 PM CDT Post-op Diagnoses: ? - A single segmental biliary stricture was found in the common hepatic ? duct as described. ? - A biliary sphincterotomy was performed. ? - Common hepatic duct stricture was successfully dilated with a 4 mm ? balloon dilator. ? - One 8.5 Moroccan 22 cm Johlin temporary plastic biliary stent was placed ? into the left hepatic duct. Narrative [facility] - 03/08/2024 4:43 PM CDT Gonda 2 GI Patient Name: Luis Tabares Date of : 1980 Age: 43 Procedure Date: 03/08/2024 Procedure: ? ERCP, sphincterotomy, balloon dilation, biliary ? stent placement Providers: ? Drake Brennan MD, Marlena Patino MD (Fellow) Referring Provider: ?Viraj MuniraCandido Mesa Pre-op Diagnoses: ?Abnormal abdominal CT, Biliary [...] Tai APRN, C.N.P. GI PROCEDU RE ORDERABLES Performing Organization Address City/State/ZIP Co hi Phone Number [facility] NA * (ABNORMAL) Hepatic Function Panel (03/05/2024 [...] M.D. LAB BLOOD ADD-ON Performing Organization Address City/[facility]/[place] [address] * Magnesium (03/05/2024 8:09 AM CDT) Only the most recent of2 resultswithin the time period is included. Magnesium, S 2.1 1.7 - 2.3 mg/dL 03/05/2024 9:04 AM CDT DTL Blood (Blood, Venous) 03/05/2024 8:09 AM CDT 03/05/2024 8:41 AM CDT Viraj Mesa M.D. LAB BLOOD ADD-ON Performing Organization Address City/[facility]/ZIP Co de Phone Number [facility] [address] [place], [place] [phone] [place] [address] [address] [place] [address] * (ABNORMAL) Basic Metabolic Panel (03/05/2024 8:09 [...] CDT Viraj Mesa [place] [address], [facility] [place] [address] * (ABNORMAL) CBC with Differential, Blood (03/05/2024 [...] CDT Viraj Mesa M.D. LAB BLOOD ADD-ON [facility] [address] [place] [address], [facility] DTL [facility] [address] [place] [address] [facility] [address] [place] [address] * Interpretation of Outside MR Abdomen and [...] celiac artery. 3. Progression of liver metastases. [facility] MRI PROCEDURES * US Paracentesis with Imaging [...] clinical findings. All other fluids refer to www.FlagTapl[employer].com for further interpretive information. This test has been modified from the nail feeder's instructions. Its performance characteristics were determined by [facility] in a manner consistent with CLIA requirements. This test has not been cleared or approved by the U.S. Food and Drug Administration. Fluid Type, Protein, Total Fluid, Peritoneal Fluid 03/04/2024 11:08 AM CDT DTL Fluid (Peritoneal Fluid) 03/04/2024 10:48 AM CDT Viraj Mesa M.D. LAB BODY FLUIDS AND STOOLS ORDERABLES Performing Organization Address [facility] Co de Phone Number [facility] [address] [place] [address] * Bacterial Culture, Aerobic + Susceptibility (03/04/2024 10:48 AM CDT) Bacterial Culture, Aerobic + Susc No growth after 5 days of incubation. 03/09/2024 8:29 AM CDT DT Fluid (Peritoneal Fluid) 03/04/2024 10:48 AM CDT Narrative [facility] - 03/09/2024 8:29 AM CDT Bacterial Culture: Received Bactec aerobic and Bactec anaerobic bottles Viraj Mesa M.D. LAB MICROBIOLOGY - G ENERAL ORDERABLES Performing Organization Address [facility] Co de Phone Number [facility] [address] [place] [address], [address] [address] * Cell Count and Differential, Body Fluid [...] This test has been modified from the nail feeder's instructions. Its performance characteristics were determined by [facility] in a manner consistent with CLIA requirements. This test has not been cleared or approved by the U.S. Food and Drug Administration. Neutrophils 4 % 03/04/2024 12:08 PM CDT [facility] Comment: ----REFERENCE VALUE---- Synovial: <25% Peritoneal: <25% Pleural: <25% Pericardial: <25% Lymphocytes 32 Synovial <75% % 03/04/2024 12:08 PM CDT PM Monocytes/Macropha ges 64 Synovial <70% % 03/04/2024 12:08 PM CDT PM Comment See Comment 03/04/2024 12:08 PM CDT PM Comment:No blasts or maligna nt cells seen. Reviewed by: Rosaline 03/04/2024 12:08 PM CDT [facility] Fluid (Peritoneal Fluid) 03/04/2024 10:48 AM CDT Viraj Mesa M.D. LAB BODY FLUIDS AND STOOLS ORDERABLES Performing Organization Address City/[facility]/ZIP Co de Phone Number [facility] [address] [place] [address] * Fungal Smear (03/04/2024 10:48 AM CDT) Pathologist [facility] Fungal Smear Negative. 03/04/2024 8:48 PM CDT DT Fluid (Peritoneal Fluid) 03/04/2024 10:48 AM CDT Narrative [facility] - 03/04/2024 8:48 PM CDT Bacterial Culture: Received Bactec aerobic and Bactec anaerobic bottles Viraj Mesa M.D. LAB MICROBIOLOGY - G ENERAL ORDERABLES Performing Organization Address City/[facility]/ZIP Co de Phone Number [facility] [address] [place] [address], [facility] [address] [place] [address] * Gram Stain (03/04/2024 10:48 AM CDT) Gram Stain No organisms seen. White blood cells present. 03/04/2024 3:33 PM CDT DTL Fluid (Peritoneal Fluid) 03/04/2024 10:48 AM CDT Narrative [facility] - 03/04/2024 3:33 PM CDT Bacterial Culture: Received Bactec aerobic and Bactec anaerobic bottles Viraj Mesa M.D. LAB MICROBIOLOGY - G ENERAL ORDERABLES Performing Organization Address City/[facility] Co de Phone Number [facility] [address] [facility] [address] [place] [address] * Albumin, Body Fluid (03/04/2024 10:48 AM CDT) Albumin BF 0.5 See Comment g/dL 03/04/2024 [...] process. ?? All other fluids refer to www.[employer]Ta[employer].com for further interpretive information. This test has been modified from the nail feeder's instructions. Its performance characteristics were determined by [facility] in a manner consistent with CLIA requirements. This test has not been cleared or approved by the U.S. Food and Drug Administration. Fluid Type, Albumin Fluid, Peritoneal Fluid 03/04/2024 11:08 AM CDT DTL Fluid (Peritoneal Fluid) 03/04/2024 10:48 AM CDT Viraj Mesa M.D. LAB BODY FLUIDS AND STOOLS ORDERABLES Performing Organization Address City/[facility]/ZIP Co de Phone Number [facility] [address] [place] [address], [facility] [address] [place] [address] * (ABNORMAL) Comprehensive Metabolic Panel (03/04/2024 7:16 AM CDT) Only the most recent of2 resultswithin the time period is included. [facility] Potassium, S 3.8 3.6 - 5.2 mmol/L [...] CDT 03/04/2024 7:49 AM CDT Ana Palm APRN C.NCandidoPCandido LAB BLOOD A DD-ON Performing Organization Address [facility] Co de Phone Number [facility] [address] [place], [place] [id number] [place] [address] [facility] [address] [place] [address] * ECG 12 Lead (03/03/2024 3:30 PM CDT) Only the most recent of2 resultswithin the time period is included. Ventricular Rate ECG/Min 123 BPM MUSE RI Interval 148 ms MUSE QRSD Interval 84 ms MUSE QT Interval 318 ms MUSE QTC Interval 455 ms MUSE P [place] 49 degrees MUSE R [place] 80 degrees MUSE T Wave [place] 28 degrees MUSE 03/03/2024 3:30 PM CDT [...] M.S. ECG ORDER SHOLA Performing Organization Address City/[facility]/ZIP Co de Phone Number MUSE NA * [...] lesions were better evaluated on comparison CT. Daniela Brownlee P.A.-C., M.S. IMG US RI OCEDURES * CT Abdomen Pelvis with IV [...] report. Daniela Brownlee P.A.-C., M.S. IMG CT RI OCEDURES * (ABNORMAL) Prothrombin Time (PT) (03/03/2024 10:28 AM CDT) [facility] Prothrombin Time, P 13.8(H) 9.4 - 12.5 sec 03/03/2024 10:39 AM CDT [facility] 1[facility]3 0.9 - 1.1 03/03/2024 10:39 AM CDT [facility] Comment: ----ADDITIONAL INFORMATION---- Standard intensity warfarin therapeutic range: 2.0 to 3.0 ?? High intensity warfarin therapeutic range: 2.5 to 3.5 Blood (Blood, Venous) 03/03/2024 10:28 AM CDT 03/03/2024 10:32 AM CDT Daniela Brownlee P.A.-C., M.S. LAB BLOOD ADD-ON Performing Organization Address City/[facility]/ZIP Co de Phone Number [facility] [address] [place] [address], [facility] [address] [place] [address] * Lipase (03/03/2024 10:28 AM CDT) [facility] Lipase, S 19 13 - 60 U/L 03/03/2024 11:13 AM CDT DTL Blood (Blood, Venous) 03/03/2024 10:28 AM CDT 03/03/2024 10:51 AM CDT Daniela Brownlee P.A.-C., M.S. LAB BLOOD ADD-ON [facility] [address] [place] [address], [facility] 200 [place] [address] * Lactate (03/03/2024 10:28 AM CDT) [facility] Lactate, P 1.0 0.5 - 2.2 mmol/L 03/03/2024 10:45 AM CDT [facility] Blood (Blood, Venous) 03/03/2024 10:28 AM CDT 03/03/2024 10:32 AM CDT Daniela Brownlee P.A.-C. M.S. LAB BLOOD NON ADD-ON Performing Organization Address [facility] de Phone Number [facility] [address] [place] [address], [facility] STMA [facility] [address] [place] [address] * MR abdomen wo/w con-Outside MR Body (02/26/2024 2:05 PM CDT) Narrative [facility] - 03/01/2024 1:30 PM CDT This order has been created and auto-finalized to support the import of outside images. If available, original interpretation can be found on the Media Tab in Chart Review, in Document Viewer, or as an image in KTM AdvanceE[employer]. If a re-interpretation or overread is required please follow defined workflow. ?? Provider Not In System IMG MRI PROCEDURE S Performing Organization Address [facility] de Phone Number [facility] NA * FL Spine Intercostal Injection Right (02/05/2024 8:26 AM CDT) Narrative Raf Cochran M.D. - 02/05/2024 8:00 AM CDT Raf Cochran M.D. ? 02/05/2024 ??8:45 AM FL Spine Intercostal Injection Right Performed by: Raf Cochran M.D. Authorized by: Sean Shen D.O. ?? Care team members present 1. Sean Shen D.O. 2. Yareli Wiggins LCandidoPCandidoNCandido PROCEDURE SUMMARY Indications: Intractable pain Pre-procedural pain: 7/10 Post-procedural pain: 10 Site: thoracic Thoracic: intercostal nerve block Intercostal [...] fellow participated in the procedure, and the beverage sales consultant was present for the entire procedure. OPERATIVE NOTE INFORMATION Specimens: 0 Drains: 0 Estimated blood loss: 0 Implants: 0 Sean Shen D.O. FLUORO GUIDED PAIN P ROCEDURES * XR abdomen min 2V-Outside Gen Dx Stdy (12/31/2023 10:55 AM GOLF BALL TRIMMER) 12/31/2023 10:5 4 AM GOLF BALL TRIMMER Narrative [facility] - 12/31/2023 2:47 PM GOLF BALL TRIMMER This order has been created and auto-finalized to support the import of outside images. If available, original interpretation can be found on the Media Tab in Chart Review, in Document Viewer, or as an image in KTM [employer]. If a re-interpretation or overread is required please follow defined workflow. ?? Provider Not In System IMG DIAGNOSTIC IM AGING PROCEDURES [facility] NA * PET CT Skull to Thigh FDG (12/24/2023 11:31 AM GOLF BALL TRIMMER) Anatomical Region Laterality Modality Body, Nuclear Medicine PET R ST LOS, PET ARZ LOS, Nuclear Medicine PET FLA LOS, Nuclear Medicine N/A Positron Emission Tomography (PET), Positron Emission Tomography (PET) Impressions 12/24/2023 12:34 PM GOLF BALL TRIMMER Overall marked response of the FDG avid hepatic and eduar metastatic lesions. No new metastatic foci. Interval decrease in the number of metastatic pulmonary nodules. However, there is indeterminant mild increased FDG activity in a few residual pulmonary metastatic foci. Narrative 12/24/2023 12:34 PM GOLF BALL TRIMMER EXAM: ??PET CT SKULL TO THIGH FDG Serum glucose at time of F-18 FDG injection was 101 mg/dL. Patient followed standard dietary/fasting requirements for this exam. RADIOPHARMACEUTICAL/MEDS: Route: intravenous fludeoxyglucose F 18 injection HALF-WAY (FDG F-18),14.8 millicurie TECHNIQUE: ??F-18 FDG PET/CT [...] intravenous fludeoxyglucose F 18 injection HALF-WAY (FDG F-18),14.8 millicurie TECHNIQUE: F-18 FDG PET/CT [...] few residualpulmonary metastatic foci. Noelle Reyes P.A.-C., P.A. IMG NM PRO CEDURES * (ABNORMAL) CEA (Carcinoembryonic Antigen) (12/24/2023 11:21 AM GOLF BALL TRIMMER) Carcinoembryonic Ag (CEA), S 11.4(H) ng/mL 12/24/2023 5:04 PM GOLF BALL TRIMMER [facility] Comment: ----REFERENCE VALUE---- <=3.0 (Non-smokers) Some smokers may have elevated CEA, usually <5.0. ----ADDITIONAL INFORMATION---- The testing method is an immunoenzymatic assay manufactured by [employer]. and performed on the [employer]. ? Values obtained with different assay methods or kits may be different and cannot be used interchangeably. ? Test results cannot be interpreted as absolute evidence for the presence or absence of malignant disease. Blood (Blood, Venous) 12/24/2023 11:21 AM GOLF BALL TRIMMER 12/24/2023 4:06 PM GOLF BALL TRIMMER Noelle Reyes P.A.-C., P.A. LAB BLOOD ADD-ON Performing Organization Address [facility]/ZIP Co de Phone Number [facility] [address] [place] [address] [facility] [address] [place] [address] * (ABNORMAL) Bilirubin, Direct (12/24/2023 11:21 AM GOLF BALL TRIMMER) Bilirubin, Direct, S 0.4(H) 0.0 - 0.3 mg/dL 12/24/2023 1:06 PM GOLF BALL TRIMMER DT Blood (Blood, Venous) 12/24/2023 11:21 AM GOLF BALL TRIMMER 12/24/2023 11:56 AM GOLF BALL TRIMMER Noelle Reyes P.A.-C., P.A. LAB BLOOD ADD-ON [facility] [address] [place] [address], [place] DTL [facility] [address] [place] [address] * US abdomen limited-Outside US Body (12/17/2023 11:05 AM GOLF BALL TRIMMER) 12/17/2023 11:0 3 AM GOLF BALL TRIMMER Narrative [facility] - 12/17/2023 2:11 PM GOLF BALL TRIMMER This order has been created and auto-finalized to support the import of outside images. If available, original interpretation can be found on the Media Tab in Chart Review, in Document Viewer, or as an image in QREADS. If a re-interpretation or overread is required please follow defined workflow. ?? Provider Not In System IMG US PROCEDURES Performing Organization Address City/[facility]/ZIP Co de Phone Number [facility] NA * HIV-1/-2 Ag and Ab Screen (05/11/2018 2:37 PM CDT) HIV-1/-2 Ag and Ab Screen, S Negative Negative 05/11/2018 9:11 PM CDT [facility] Comment: Negative result does not rule out HIV infection. If acute HIV infection is suspected in a high-risk individual, submit plasma specimen for HIV-1 RNA quantification test (HIVDQ) and/or HIV-2 DNA/RNA test (FHV2Q). Blood 05/11/2018 2:37 PM CDT 05/11/2018 9:11 PM CDT Nilesh Srivastava Jr., M.D. LAB MICROBIO LOGY - BLOOD ORDERABLES [facility] [address] [place] [address] * HCV Ab Scrn w/Reflex to HCV PCR, Serum (05/11/2018 2:37 PM CDT) HCV Ab Screen, S Negative Negative 05/11/2018 10:27 PM CDT [facility] Comment:Ffbntw-nb-wapycz rat io is <1.00. Blood (Blood, Venous) 05/11/2018 2:37 PM CDT 05/11/2018 5:48 PM CDT Nilesh Srivastava Jr., M.D. LAB MICROBIO LOGY - BLOOD ORDERABLES [facility] [address] [place] [address] from Last 3 Months or Most Recently Relevant to Health Maintenance Advance Directives For more information, please contact: [phone] * Full Code (Latest Code Status on [...] Due to: Patient not available Care Teams Child And Family Services Worker Relationship Specialty Start Date End Date Elsewhere, Pcp PCP - General Internal Medicine 10/14/22
--- OUTSIDE RECORDS SUMMARY | 2024-03-16 16:42 | XMS_ITS | Encounter Summary ---
Author Name Unknown Organization [facility] Address [address] [place] [address] Care Team Providers Care Graduate Engineer Name Role Phone Elsewhere, Pcp Primary Care Provider Unavailabl e Encounter Details Date Type Department Care Team (Late st Contact Info) Description 03/08/2024 3:34 PM CDT Anesthesia Event Division of Gastroenterology in [place], [place] [address] [place] [phone] Kun Rasmussen APRN, STRAIGHT KNIFE MACHINE CUTTER [address] [place] [phone] Will Reyes M.D. [address] [place] [phone] Anesthesia Record Procedure Summary Procedure Name Responsible Anesthesiologist Anesthesia Start Time Anesthesia Stop Time ERCP Kun Rasmussen A PRZeinab, STRAIGHT KNIFE MACHINE CUTTER 03/08/24 1534 03/08/24 1644 Events Date Time Event Comment 03/08/2024 1534 An Start Machine/Equipme nt Checked Infection Precautions Followed Procedure/Site Verified NPO Status Verified Supine Standard ASA Monitors Applied 1539 An Induction 1541 An Intubation 1543 Turnover to Proceduralist 1548 Proc Start 1628 Proc Fin 1634 Turnover to ANE Staff 1638 Airway Removal Criteria Met 1638 Extubation/Airway Removed 1639 an stop data 1644 An End I completed my handoff to [...] Meds Name Total fentanyl injection 50 mcg/mL 100 mcg lidocaine 2% (mg) injection 60 mg succinylcholine 20 mg/mL injection 80 mg ondansetron 4 mg/2 mL injection 4 mg propofol 10 mg/mL infusion 551.31 mg propofol 10 mg/mL injection 140 mg piperacillin-tazobactam in dextrose (iso osm) IVPB 3.375 g (ZOSYN) 3.375 g dexAMETHasone (DECADRON) injection 4 mg/ mL 4 mg HYDROmorphone PF 2 mg/mL injection 1 mg Lactated Ringers Free Drip 800 mL * Agents No agents on file. [...] probes x5 02/18/22 1214 by Flori Kang R.Griselda(R)(CT), R.TCandido(R) ETT Placement Date: 03/08/24; Placement Time: 154 (created via procedure documentation); Mask Ventilation: Not attempted; Technique: Video laryngoscopy; Type: Standard ETT; Single Lumen Tube Size: 7.5 mm; Cuffed: Yes; Location: Oral; Grade View: Grade 2A; Insertion Attempts: 1; Placement Verification: Bilateral breath sounds, Positive ETCO2, Symmetrical chest wall movement; Removal Date: 03/08/24; Removal Time: 16303/08/24 1541 by Kun Rasmussen APRN, CRNA 03/08/24 1638 by Kun Rasmussen APRN, CRNA documented in this encounter Social History Tobacco [...] Recorded PHQ-2 Score 0 04/25/2019 [facility] of Occupat ional Health - Occupational Stress [...] degree (e.g., MA, MS, Ana Lilia, MEd, CHIP MIXING MACHINE OPERATOR, GORDO) 02/15/2022 Sex and Gender Information Value Date Recorded Sex Assigned at Male 04/23/2018 1:23 PM CDT Gender Identity Male 04/23/2018 1:23 PM CDT Sexual Orientation Straight 04/23/2018 1: 23 PM CDT documented as of this encounter OR Notes * Anesthesia Postprocedure Evaluation - Kun Rasmussen APRN, CRNA - 03/08/2024 4:44 PM CDT Patient: Luis Tabares Procedure Summary Date: 03/08/24 Room / Location: Division of Gastroenterology in [place], [place] Anesthesia Start: 1534 Anesthesia Stop: 164 Procedure: ERCP Diagnosis: 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 Responsible Provider: Kun Rasmussen APRN, CRNA Anesthesia Type: general ASA Status: 3 Anesthesia Type: general Last vitals Vitals Value Taken Time BP 130/94 03/08/24 1641 Temp Pulse 119 03/08/24 1644 Resp 19 03/08/24 1644 SpO2 98 % 03/08/24 1644 Vitals shown include unfiled device data. Please reference Vitals flowsheet for most recent vital signs. Anesthesia Post Evaluation Patient Disposition: dismissal Cardiovascular status: hemodynamics (HR & BP) acceptable Respiratory status: patent airway with spontaneous effort Temperature: normothermic Oxygen requirements: room air Level of consciousness: awake Pain score: pain adequately controlled and/or at baseline Post Op nausea/vomiting: none Hydration status: euvolemic * Anesthesia Procedure Notes - Kun Rasmussen APRN, CRNA - 03/08/2024 3:55 PM CDTAssociated Order(s): Airway Airway Date/Time: 03/08/2024 3:41 PM Performed by: Kun Rasmussen APRN, CRNA Authorized by: Kun Rasmussen APRN, CRNA Patient location during procedure: OR / Procedure Area PROCEDURE DETAILS: Mask difficulty assessment: not attempted Final airway type: video laryngoscope Laryngeal Manipulation: no Final best view of glottic structures - Cormack/Lehane Score: grade 2A ETT location: oral VL device: glide scope Dacono scope blade size: 4 Tube size: 7.5 [...] ANESTHESIA Anesthesia method: anesthesia POST PROCEDURE DETAILS: Procedure outcome: successful Notable Events: no complications * Anesthesia Preprocedure Evaluation - Will Reyes M.D. - 03/08/2024 2:27 PM CDT Preprocedure Anesthesia & H&P Assessment Procedure Summary Date/Time: 03/08/24 1515 Scheduled providers: Drake Brennan M.D. 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) Digestive (+) Secondary Malignant Neoplasm Colon (HCC) (+) Secondary Malignant Neoplasm Liver (HCC) Hematologic (+) Thrombocytopenia Drug Induced Other (+) Palliative Care OBJECTIVE PHYSICAL EXAMINATION Airway (HEENT) Mallampati: III TM Distance: >3 FB Neck ROM: Full Mouth Opening: >3 cm Cardiovascular Rhythm: Regular Rate: Normal Cardiovascular Assessment: cardiovascular normal Functional Capacity: >4 METS Pulmonary Pulmonary Assessment: Clear General / Constitutional Constitutional Assessment: Normal General State of Health:: healthy appearing and calm ASSESSMENT / PLAN ANESTHESIA PLAN ASA: 3 Anesthesia Plan: general Patient seen and allergies reviewed, anesthesia plan and risks discussed directly with patient /legal guardian or through an chief investment officer. Risks/Benefits/Alternatives of Blood transfusion discussed with patient / legal guardian, includingan opportunity to ask questions and/or decline some or all transfusion therapies. The patient / legal guardian consented to the use of all blood products, as deemed medically necessary Approval to Proceed: approved for anesthesia documented in this encounter Plan of Treatment Upcoming Encounters Date Type Department Care Team (Latest Contact Info) Description 03/18/2024 9:15 AM CDT Appointment Department of Radiology, [facility], in [address] [phone] Zeke Downey M.D. [address] [place] [phone] 03/23/2024 7:30 AM CDT Clinical Communication Virtual Review in [address] [phone] 03/24/2024 11:00 AM CDT Appointment Department of Radiology, [facility], in [address] [phone] Ned Alegria M.D. [address] [place] [phone] 03/24/2024 12:20 PM CDT Lab Department of Infusion Therapy in [address] [phone] Ned Alegria M.D. [address] [place] [phone] 03/24/2024 1:00 PM CDT Ancillary Procedure Department of Cardiovascular Medicine in [address] [place] [phone] Zeke Downey M.D. [address] [place] [phone] 03/24/2024 3:30 PM CDT Office Visit Department of Oncology in [place], [place] [address] [place] [phone] Ned Alegria M.D. [address] [place] [phone] 04/14/2024 8:00 AM CDT Clinical Communication Virtual Review in [place], [place] 200 [place] [phone] 04/19/2024 10:30 AM CDT Office Visit Department of Palliative Care in [address] [phone] Patti Rush B.M.B.S., B.M.B.Ch. [address] [place] [phone] 05/03/2024 9:30 AM CDT Appointment Division of Gastroenterology in [address] [phone] Corrina Jaime M.D. [address] [place] [phone] Drake Brennan M.D. [address] [place] [phone] documented as of this encounter Goals Goal Patient Goal Type Associated Problems Recent Progress Patient-Stated? Author Your pain? Symptom Management 9(11/20/2022 2:41 PM CRANE ASSEMBLER) No Fee-Girma Bush, RCandidoN., O.C.N. Note: 05/24/2021: Pain algorithm completed. [facility] 05/24/2021: Followup 06/07 via portal per patient [...] Procedure Name Priority Date/Time Associated Diagnosis Comments LDA ANE ENDOTRACHEAL AIRWAY Routine 03/08/2024 3:41 PM CDT documented in this encounter Results * LDA ANE ENDOTRACHEAL AIRWAY (03/08/2024 3:41 [...] ETT location: oral VL device: glide scope Dacono scope blade size: 4 Tube size: 7.5 [...] ?? Notable Events: no complications Kun Rasmussen APRN, CRNA ANESTHESIA O RDERABLES documented in this encounter Visit Diagnoses Not on filedocumented in this encounter Administered Medications Inactive Administered Medications - up to 3 most recent administrations Medication Order MAR Action Action Date Dose Rate Site dexAMETHasone injection (DECADRON) intravenous, As needed, Starting on Fri03/08/24 at 1544, Anesthesia Intra-op Given 03/08/2024 3:44 PM CDT 4 mg fentaNYL injection (SUBLIMAZE) intravenous, As needed, Starting on Fri03/08/24 at 1540, Anesthesia Intra-op Given 03/08/2024 3:40 PM CDT 100 mcg HYDROmorphone (PF) injection (DILAUDID) intravenous, As needed, Starting on Fri03/08/24 at 1600, Anesthesia Intra-op Given 03/08/2024 4:28 PM CDT 0.2 mg Given 03/08/2024 4:15 PM CDT 0.4 mg Given 03/08/2024 4:00 PM CDT 0.4 mg Lactated Ringer's intravenous, Continuous Infusion: Per Instructions PRN, Starting on Fri03/08/24 at 1535, Anesthesia Intra-op New Bag 03/08/2024 3:35 PM CDT lidocaine (PF) (cardiac) injection intravenous, As needed, Starting on Fri03/08/24 at 1539, Anesthesia Intra-op Given 03/08/2024 3:39 PM CDT 60 mg ondansetron (PF) injection (ZOFRAN) intravenous, As needed, Starting on Fri03/08/24 at 1545, Anesthesia Intra-op Given 03/08/2024 3:45 PM CDT 4 mg piperacillin-tazobactam in dextrose (iso osm) IVPB 3.375 g (ZOSYN) 3.375 g, intravenous, at 100 mL/hr, Administer over 0.5 Hours, Once, On Fri03/08/24 at 1445, For 1 dose, Intra-Op, Drug Monitoring Program: Pharmacist to adjust medication dosing based on indication and drug clearance factors., Indications: Intraprocedure ppx Given 03/08/2024 3:49 PM CDT 3.375 g propofol 10 mg/mL infusion (DIPRIVAN) intravenous, Continuous Infusion: Per Instructions PRN, Starting on Fri03/08/24 at 1540, Anesthesia Intra-op New Bag 03/08/2024 3:40 PM CDT 150 mcg/kg/min 70.38 mL/hr propofoL injection (DIPRIVAN) intravenous, As needed, Starting on Fri03/08/24 at 1539, Anesthesia Intra-op Given 03/08/2024 3:39 PM CDT 140 mg succinylcholine (PF) injection (ANECTINE) intravenous, As needed, Starting on Fri03/08/24 at 1540, Anesthesia Intra-op Given 03/08/2024 3:40 PM CDT 80 mg documented in this encounter Additional Health Concerns Assessment Noted Time PHQ-9 Depression Total Score: 7 05/26/20 18 10:22 PM CDT documented as of this encounter Care Teams Graduate Engineer Relationship Specialty Start Date End Date Elsewhere, Pcp PCP - General Internal Medicine 10/14/22 documented as of this encounter
--- OUTSIDE RECORDS SUMMARY | 2024-03-16 16:42 | XMS_ITS | Encounter Summary ---
Author Name Unknown Organization [facility] Address [address] [place] [address] Care Team Providers Care Diploma Medical Assistant Name Role Phone Elsewhere, Pcp Primary Care Provider Unavailabl e Encounter Details Date Type Department Care Team (Late st Contact Info) Description 03/04/2024 3:05 PM CDT Ancillary Procedure Department of Radiology in [place], [place] [address] [place] [phone] Viraj Mesa M.D. [address] [place] [phone] Social History Tobacco Use Types Packs/Day Years [...] (e.g., MA, MS, Ana Lilia, MEd, FLEET SALES MANAGER, GORDO) 02/15/2022 Sex and Gender Information Value Date Recorded Sex Assigned at Male 04/23/2018 1:23 PM CDT Gender Identity Male 04/23/2018 1:23 PM CDT Sexual Orientation Straight 04/23/2018 1: 23 PM CDT documented as of this encounter Plan of Treatment Upcoming Encounters Date Type Department Care Team (Latest Contact Info) Description 03/18/2024 9:15 AM CDT Appointment Department of Radiology, [facility], in [place], [place] [address] [place] [phone] Zeke Downey M.D. [address] [place] [phone] 03/23/2024 7:30 AM CDT Clinical Communication Virtual Review in [place], [place] 200 [place] [phone] 03/24/2024 11:00 AM CDT Appointment Department of Radiology, [facility], in [place], [place] [address] [place] [phone] Ned Alegria M.D. [address] [place] [phone] 03/24/2024 12:20 PM CDT Lab Department of Infusion Therapy in [place], [place] [address] [place] [phone] Ned Alegria M.D. [address] [place] [phone] 03/24/2024 1:00 PM CDT Ancillary Procedure Department of Cardiovascular Medicine in [address] [phone] Zeke Downey M.D. [address] [place] [phone] 03/24/2024 3:30 PM CDT Office Visit Department of Oncology in [address] [phone] Ned Alegria M.D. [address] [place] [phone] 04/14/2024 8:00 AM CDT Clinical Communication Virtual Review in [address] [phone] 04/19/2024 10:30 AM CDT Office Visit Department of Palliative Care in [address] [phone] Patti Ruhs B.M.B.S., B.M.B.Ch. [address] [place] [phone] 05/03/2024 9:30 AM CDT Appointment Division of Gastroenterology in [place], [place] [address] [place] [address] Corrina Jaime M.D. [address] [place] [phone] Drake Brennan M.D. [address] [place] [phone] documented as of this encounter Goals Goal Patient Goal Type Associated Problems Recent Progress Patient-Stated? Author Your pain? Symptom Management 9(11/20/2022 2:41 PM REEL SLITTER) No Phyllis-Girma Bush, RCandidoN., O.C.N. Note: 05/24/2021: Pain algorithm completed. [facility] [...] Procedure Name Priority Date/Time Associated Diagnosis Comments INTERPRETATION OF OUTSIDE MR ABDOMEN AND OR PELVIS RAD - Routine (most inpatients and all outpatients) 03/04/2024 3:33 PM CDT documented in this encounter Results * Interpretation of Outside MR Abdomen and [...] artery. 3. Progression of liver metastases. Viraj SOMMERS MRI PROCEDURES documented in this encounter Visit Diagnoses Not on filedocumented in this encounter Additional Health Concerns Assessment Noted Time PHQ-9 Depression Total Score: 7 05/26/20 18 10:22 PM CDT documented as of this encounter Care Teams Diploma Medical Assistant Relationship Specialty Start Date End Date Elsewhere, Pcp PCP - General Internal Medicine 10/14/22 documented as of this encounter
--- OUTSIDE RECORDS SUMMARY | 2024-03-16 16:42 | XMS_ITS | Encounter Summary ---
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 [address] [place] [address] [facility] Referral ID Status Reason Start Date Expiration Date Visits Re quested Visits Authorized [id number] Closed 03/05/2024 03/05/2025 1 1 Encounter Details Date Type Department Care Team (Latest Contact Info) Description 03/08/2024 1:46 PM CDT - 03/08/2024 2:40 PM CDT Hospital Encounter Division of Gastroenterology in [place], [place] [address] [place] [phone] Viraj Mesa M.D. 200 [place] [phone] Drake Brennan M.D. 200 [place] [phone] Yoan Arreaga M.D. [address] [place] [phone] Malignant Neoplasm Of Rectum (HCC); Secondary Malignant [...] [facility] Never 02/03/2023 Do you [...] degree (e.g., MA, MS, Ana Lilia, MEd, [employer], GORDO) 02/15/2022 Sex and Gender Information Value Date Recorded Sex Assigned at Male 04/23/2018 1:23 PM CDT Gender Identity Male 04/23/2018 1:23 PM CDT Sexual Orientation Straight 04/23/2018 1: 23 PM CDT documented as of this encounter Last Filed Vital Signs Vital Sign Reading Time Taken Comments Blood Pressure 123/93 03/08/2024 2:20 PM CDT Pulse 113 03/08/2024 2:30 PM CDT Temperature - - Respiratory Rate 20 03/08/2024 2:30 PM CDT Oxygen Saturation 97% 03/08/2024 2:30 PM CDT Inhaled Oxygen Concentration - - [...] or score 7-10 of 10. 30 tablet 08/03/2020 albuterol 90 mcg/actuation inhaler INHALE 1-2 PUFFS BY MOUTH EVERY 4 HOURS IF NEEDED FOR SHORTNESS OF BREATH OR WHEEZING (COUGH). 12/10/2022 amLODIPine (NORVASC) 10 mg tablet TAKE 1 TABLET (10 MG TOTAL) BY MOUTH EVERY MORNING. 90 tablet 2 09/18/2023 ascorbic acid, vitamin C, (VITAMIN C) 250 mg tablet Take 250 mg by mouth daily. benzonatate (TESSALON PERLES) 100 mg capsule 100 mg every 4 (four) hours as needed. 12/05/2022 cholecalciferol (VITAMIN D3) 5,000 Unit capsule Take 5,000 Units by mouth daily. clobetasoL (CLODAN) 0.05 % shampoo Lather onto scalp, leave on 5 minutes, and rinse. Use daily Fri-. 118 mL 3 10/28/2023 cyanocobalamin (VITAMIN B12) 1,000 mcg tablet Take 1,000 mcg by mouth daily. dexAMETHasone (DECADRON) 4 mg tablet Take 1 tablet by mouth daily. Take one tab a day for 5 days and then half tab for 5 more days and stop. 14 tablet 03/06/2024 diphenoxylate-atropine (LOMOTIL) 2.5-0.025 mg per tablet Take 1 tablet by mouth 3 (three) times a day with meals. 12/16/2023 docosahexaenoic acid/epa (FISH OIL ORAL) Take 2 tablets by mouth daily. fluticasone propionate (FLONASE) 50 mcg/actuation nasal spray INHALE 2 SPRAYS TO BOTH NOSTRILS ONCE DAILY 12/10/2022 granisetron (KYTRIL) 1 mg tablet Take 1 tablet (1 mg total) by mouth every 12 (twelve) hours as needed for nausea or vomiting. 60 tablet 01/26/2024 hydrocortisone (CORTAID) 1 % cream Apply 1 Application topically 2 (two) times a day. 30 g 3 09/26/2023 hydrocortisone 2.5 % ointment Apply 1 Application topically 2 (two) times a day. Apply to affected areas of the face and groin twice daily . 30 g 3 10/28/2023 LACTOBACILLUS ACIDOPHILUS ORAL Take 1 capsule by mouth daily. loperamide (IMODIUM A-D) 2 mg capsule TAKE 1 TABLET ORALLY EVERY 4 HOURS NEEDED FOR LOOSE STOOL 12/16/2023 melatonin 1 mg tablet,chewable Chew 10 mg daily. 09/26/2023 multivitamin tablet Take 1 tablet by mouth daily. nitroglycerin (NITROSTAT) 0.[address] 1 tablet (0.4 mg total) under the tongue every 5 (five) minutes as needed for chest pain. 25 tablet 12 05/28/2018 OLANZapine (ZyPREXA) 5 mg tablet TAKE 1 TABLET (5 MG TOTAL) BY MOUTH AT BEDTIME. TAKE DAYS 1-4 AFTER CHEMOTHERAPY 72 tablet 1 10/22/2023 ondansetron ODT (ZOFRAN-ODT) 8 mg disintegrating tablet Dissolve 1 tablet (8 mg total) in the mouth every 8 (eight) hours as needed for nausea. See attached for detailed directions. 20 tablet 3 09/26/2023 pantoprazole (PROTONIX) 40 mg EC tabletIndications:Malig nant Neoplasm Of Rectum (HCC) take 1 tablet by mouth every day in the morning 90 tablet 1 12/10/2023 potassium chloride (K-TAB) 20 mEq CR tablet Take 20 mEq by mouth 2 (two) times a day. 06/09/2023 prochlorperazine (COMPAZINE) 10 mg tablet Take 1 tablet (10 mg total) by mouth every 8 (eight) hours as needed for nausea. 30 tablet 3 09/26/2023 sennosides-docusate sodium (SENOKOT-S) 8.6-50 mg per tablet Take 1 tablet by mouth 2 (two) times a day. 03/05/2024 triamcinolone (KENALOG) 0.1 % cream Apply 1 Application topically 2 (two) times a day as needed (Rash). Apply to affected areas of the body twice daily Fri-. 240 g 3 10/28/2023 HYDROmorphone (DILAUDID) 4 mg tabletIndications:Chron ic Pain/Nonacute Pain Take 1-1.5 tablets (4-6 mg total) by mouth every 4 (four) hours as needed for pain Indication: Chronic Pain/Nonacute Pain. 60 tablet 09/26/2023 03/12/2024 methadone (DOLOPHINE) 5 mg tabletIndications:Chron ic Pain/Nonacute Pain Take 0.5 tablets (2.5 mg total) by mouth 2 (two) times a day Indication: Chronic Pain/Nonacute Pain. 30 tablet 02/05/2024 03/12/2024 documented as of this encounter Plan of Treatment Upcoming Encounters Date Type Department Care Team (Latest Contact Info) Description 03/18/2024 9:15 AM CDT Appointment Department of Radiology, [facility], in [place], [place] [address] [place] [phone] Zeke Downey M.D. [address] [place] [phone] 03/23/2024 7:30 AM CDT Clinical Communication Virtual Review in [place], [place] 200 [place] [address] 03/24/2024 11:00 AM CDT Appointment Department of Radiology, [facility], in [place], [place] [address] [place] [phone] Ned Alegria M.D. [address] [place] [phone] 03/24/2024 12:20 PM CDT Lab Department of Infusion Therapy in [address] [phone] Ned Alegria M.D. [address] [place] [phone] 03/24/2024 1:00 PM CDT Ancillary Procedure Department of Cardiovascular Medicine in [address] [phone] Zeke Downey M.D. [address] [place] [phone] 03/24/2024 3:30 PM CDT Office Visit Department of Oncology in [address] [phone] Ned Alegria M.D. [address] [place] [phone] 04/14/2024 8:00 AM CDT Clinical Communication Virtual Review in [place], [place] 200 [place] [address] 04/19/2024 10:30 AM CDT Office Visit Department of Palliative Care in [place] [phone] Patti Rush B.M.BCandidoS., B.M.B.Ch. [address] [place] [phone] 05/03/2024 9:30 AM CDT Appointment Division of Gastroenterology in [address] [phone] Corrina Jaime M.D. [address] [place] [phone] Drake Brennan M.D. [address] [place] [phone] documented as of this encounter Goals Goal Patient Goal Type Associated Problems Recent Progress Patient-Stated? Author Your pain? Symptom Management 9(11/20/2022 2:41 PM DIRECTOR HR COMMUNICATIONS) No Phyllis-Girma Bush, R.N., O.C.N. 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 - A single segmental biliary stricture was found in the common hepatic ? duct as described. ? - A biliary sphincterotomy was performed. ? - Common hepatic duct stricture was successfully dilated with a 4 mm ? balloon dilator. ? - One 8.5 Citizen Of [place] 22 cm Johlin temporary plastic biliary stent was placed ? into the left hepatic duct. [facility]ative [facility]/08/2024 4:43 PM CDT Gonda 2 [...] One 8.5 Fr by 22 cm ? 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) documented in this encounter Administered Medications Inactive Administered Medications - up to 3 most recent administrations Medication Order MAR Action Action Date Dose Rate Site diclofenac suppository As needed, Starting on Fri03/08/24 at 1627, Intra-Op Given 03/08/2024 4:27 PM CDT 100 mg Rectum granisetron (PF) injection 0.1 mg (KYTRIL) 0.1 mg, intravenous, Once as needed, nausea, vomiting, Starting on Fri03/08/24 at 1649, For 1 dose, PACU (only) Given 03/08/2024 4:53 PM CDT 0.1 mg heparin flush 500-1,000 Units 500-1,000 Units, intra-catheter, During hospitalization, line care, Prior to discharge, Starting on Fri03/08/24 at 1747, For 1 dose, PACU & Post-Op, Implanted Vascular Access Device (IVAD) Venous Non-Valved: flush 5 mL (500 units) per port/lumen following saline flush prior to discharge. Given 03/08/2024 5:47 PM CDT 500 Units HYDROmorphone (PF) injection 0.2 mg (DILAUDID) 0.2 mg, intravenous, Every 5 min PRN, moderate pain or score 4-6 of 10, severe pain or score 7-10 of 10, Starting on Fri03/08/24 at 1652, PACU (only), Up to maximum total dose of 2 mg Given 03/08/2024 5:05 PM CDT 0.2 mg Given 03/08/2024 4:56 PM CDT 0.2 mg HYDROmorphone tablet 8 mg (DILAUDID) 8 mg, oral, Every 4 hours PRN, moderate pain or score 4-6 of 10, Starting on Fri03/08/24 at 1652, PACU (only) Given 03/08/2024 5:45 PM CDT 8 mg documented in this encounter Additional Health Concerns Assessment Noted Time PHQ-9 Depression Total Score: 7 05/26/20 18 10:22 PM CDT documented as of this encounter Care Teams Ad Terminal Makeup Operator Relationship Specialty Start Date End Date Elsewhere, Pcp PCP - General Internal Medicine 10/14/22 documented as of this encounter
--- OUTSIDE RECORDS SUMMARY | 2024-03-16 16:42 | XMS_ITS | Encounter Summary ---
Author Name Unknown Organization [facility] Address [address] [place] [phone] Care Team Providers Care Waiter/Waitress Informal Name Role Phone Elsewhere, Pcp Primary Care Provider Unavailabl e Reason for Referral * Outpatient (Routine) - Closed Specialty Diagnoses / Procedures Referred By Halima t Referred To Contact Diagnoses Malignant Neoplasm Of Rectum (HCC) Secondary Malignant Neoplasm Colon (HCC) Secondary Malignant Neoplasm Liver (HCC) Procedures ERCP Tracie Tai APRN, C.N.P. [address] [place] [phone] [facility] Referral ID Status Reason Start Date Expiration Date Visits Re quested Visits Authorized [id number] Closed 03/05/2024 03/05/2025 1 1 Encounter Details Date Type Department Care Team (Late st Contact Info) Description 03/03/2024 Clinical Communication Division of Gastroenterology in [place], [place] [address] [place] [phone] Margaret Baptiste M.D., M.S. [address] [place] [phone] Social History Tobacco Use Types Packs/Day Years [...] How often do you attend chur or temple services? Never 02/03/2023 Do you [...] (e.g., MA, MS, Ana Lilia, MEd, QUALITY ASSURANCE SUPERVISOR FINAL, GORDO) 02/15/2022 Sex and Gender Information Value Date Recorded Sex Assigned at Male 04/23/2018 1:23 PM CDT Gender Identity Male 04/23/2018 1:23 PM CDT Sexual Orientation Straight 04/23/2018 1: 23 PM CDT documented as of this encounter Miscellaneous Notes * Telephone Encounter - Amina Damian - 03/05/2024 11:53 AM CDT Please review and sign order. Thank you, Amina [phone] documented in this encounter Plan of Treatment Upcoming Encounters Date Type Department Care Team (Latest Contact Info) Description 03/18/2024 9:15 AM CDT Appointment Department of Radiology, [facility], in [address] [phone] Zeke Downey M.D. [address] [place] [phone] 03/23/2024 7:30 AM CDT Clinical Communication Virtual Review in [address] [phone] 03/24/2024 11:00 AM CDT Appointment Department of Radiology, [facility], in [address] [phone] Ned Alegria M.D. [address] [place] [phone] 03/24/2024 12:20 PM CDT Lab Department of Infusion Therapy in [address] [phone] Ned Alegria M.D. [address] [place] [phone] 03/24/2024 1:00 PM CDT Ancillary Procedure Department of Cardiovascular Medicine in [address] [phone] Zeke Downey M.D. [address] [place] [phone] 03/24/2024 3:30 PM CDT Office Visit Department of Oncology in [address] [phone] Ned Alegria M.D. [address] [place] [phone] 04/14/2024 8:00 AM CDT Clinical Communication Virtual Review in [place], [place] 200 [place] [phone] 04/19/2024 10:30 AM CDT Office Visit Department of Palliative Care in [address] [phone] Patti Rush B.M.BCandidoS., B.M.B.Ch. [address] [place] [phone] 05/03/2024 9:30 AM CDT Appointment Division of Gastroenterology in [address] [phone] Corrina Jaime M.D. [address] [place] [phone] Drake Brennan M.D. [address] [place] [phone] documented as of this encounter Goals Goal Patient Goal Type Associated Problems Recent Progress Patient-Stated? Author Your pain? Symptom Management 9(11/20/2022 2:41 PM INTERNAL CONTROLS MANAGER) No Fee-Girma Bush, R.N., O.C.N. Note: 05/24/2021: Pain algorithm completed. [facility] 05/24/2021: Followup 06/07 via portal [...] encounter Visit Diagnoses Diagnosis Secondary Malignant Neoplasm Liver (HCC)- Primary Malignant Neoplasm Of Rectum (HCC) Secondary Malignant Neoplasm Colon (HCC) documented in this encounter Additional Health Concerns Assessment Noted Time PHQ-9 Depression Total Score: 7 05/26/20 18 10:22 PM CDT documented as of this encounter Care Teams Waiter/Waitress Informal Relationship Specialty Start Date End Date Elsewhere, Pcp PCP - General Internal Medicine 10/14/22 documented as of this encounter
--- OUTSIDE RECORDS SUMMARY | 2024-03-16 16:42 | XMS_ITS | Encounter Summary ---
Author Name Unknown Organization [facility] Address [address] [place] [id number] Care Team Providers Care Resp Therapist Name Role Phone Elsewhere, Pcp Primary Care Provider Unavailabl e Reason for Visit * Reason Comments Abdominal Pain Vomiting * Auth/Cert (Routine) Specialty Diagnoses / Procedures Referred By Contac t Referred To Contact Diagnoses Malignant Neoplasm Of Rectum (HCC) Elevated Bilirubin Nausea And Vomiting Ascites Elevated Liver Function Test Abdominal Pain Pain Cancer Associated Procedures ED TO INPT Referral ID Status Reason Start Date Expiration Date Visits Re quested Visits Authorized [id number] 1 1 Encounter Details Date Type Department Care Team (Latest Contact Info) Description 03/03/2024 9:24 AM CDT - 03/05/2024 3:33 PM CDT Hospital Encounter [facility], Seventh Floor [address] [place] [address] Daniela Brownlee P.A.-C., M.S. [address] [place] [phone] Denice Guerrero M.D. [address] [place] [phone] Abdominal Pain (Primary Dx); Nausea And Vomiting; Ascites; Malignant Neoplasm Of Rectum (HCC); Elevated Liver Function Test; Elevated Bilirubin Discharge Disposition: Home or Self Care Social [...] How often do you attend chur or baptist services? Never 02/03/2023 Do you [...] Answer Date Recorded PHQ-2 Score 0 04/25/2019 [facility] - Occupational Stress [...] (e.g., MA, MS, Ana Lilia, MEd, RETAIL REPRESENTATIVE, GORDO) 02/15/2022 Sex and Gender Information Value Date Recorded Sex Assigned at Male 04/23/2018 1:23 PM CDT Gender Identity Male 04/23/2018 1:23 PM CDT Sexual Orientation Straight 04/23/2018 1: 23 PM CDT documented as of this encounter Last Filed Vital Signs Vital Sign Reading Time Taken Comments Blood Pressure 122/86 03/05/2024 2:56 PM CDT Pulse 116 03/05/2024 2:56 PM CDT Temperature 36.6 ??C (97.9 ??F) 03/05/2024 2:56 PM CD T Respiratory Rate 14 03/05/2024 2:56 PM CDT Oxygen Saturation 98% 03/05/2024 2:56 PM CDT Inhaled Oxygen Concentration - - Weight 78.2 kg (172 lb 6.4 oz) 03/05/2024 2:55 P M CDT Height 179.3 cm (5' 10.59) 03/05/2024 12:21 PM CDT Body Mass Index 24.32 03/05/2024 12:21 PM CDT documented in this encounter Discharge Summaries * Denice Guerrero M.D. - 03/05/2024 2:35 PM CDT DISCHARGE SUMMARY BRIEF OVERVIEW Hospital: [facility] Discharge Provider: Denice Guerrero M.D. 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 * DISCHARGE DISPOSITION Home or Self Care [1] ACTIVE ISSUES REQUIRING FOLLOW UP Issue: paracentesis fluid culture What is Needed: pending culture Follow-up Appointments Arranged: Yes OUTPATIENT FOLLOW UP Scheduled Appointments 03/08/2024 3:15 PM Drake Brennan M.D.; RM 208 ERCP ROGO 02 GI Gastroenterology and Hepatology 03/23/2024 7:30 AM RST INTAKE VISIT POD C 03 Admitting/Central Scheduling 03/24/2024 9:20 AM EDIL VALLEJO RN PORT DRAW ROEI Infusion Therapy 03/24/2024 11:[address] BRIDGETTE ABD LOS 844 Radiology 03/24/2024 3:30 PM Ned Alegria M.D. Oncology 03/25/2024 1:15 PM Jimbo Coe APRN, C.N.P., D.N.P. Palliative Medicine For appointment details refer to your Patient Appointment Guide. TEST RESULTS PENDING AT DISCHARGE Pending Labs Order Current Status Fungal Culture, Routine In process Bacterial Culture, Aerobic + Susceptibility Preliminary result DETAILS OF HOSPITAL STAY REASON FOR ADMISSION Malignant Neoplasm Of Rectum (HCC) Elevated Bilirubin Nausea And Vomiting Ascites Elevated Liver Function Test Abdominal Pain Pain Cancer Associated HOSPITAL COURSE Mr. Luis Tabares is a 43 year old male from [place], [place] who presented to the ED on 03/03/24 with malaise, abdominal pain, nausea, and vomiting after being told that he did not need a scheduled ERCP(which was to be done today). His medical history is significant for metastatic rectal cancer, initially diagnosed in April 2018 with locally advanced rectal cancer treated with 28 fractions of radiation with capecitabine followedby laparoscopic proctectomy with colo-anal anastomosis then followed by adjuvant FLOX for 4 months.He then had metastatic recurrence in the right lung and multiple wedge excisions in March of 2020. Hestarted irinotecan plus panitumumab with a significant response. In July of 2020, he had a mediastinal lymphadenectomy (involvement of at least 3 nodes), radiation completed from August to September 2020 followed by irinotecan and panitumab through January 2021. Unfortunately, in April of 2021 he had metastatic recurrence in a right sided 5th rib, left upper lobe and liver, managed with radiation and then irinotecan +bevacizumab 06/2021-12/2021 with stable liver disease, ablation of liver lesions in 02/2022, third line KIM initiated in 11/2022 and bevacizumab added in May. He experienced thromb ocytopenia. In June 2023, he transitioned to 5 FU alone (with missed doses due to thrombocytopenia). In 08/2023, he had a celiac plexus block, which was not overly helpful. As of 09/2023, he has been on irinotecan plus panitumumab every 2 weeks (last infusion 12/2023). This has been on hold due to travel (went to [place] with his dad for a vacation) and ongoing worsening LFT's. He currently follows with Dr. Alegria (previously with Dr. Fishman prior to his assisted). He was last evaluated with Dr. Alegria 12/24/2023 and plans at that time were for repeat imaging in 3 months. On 03/03, on his way to his scheduled ERCP, he received a phone call from the proceduralist and the procedure was canceled, as it was reportedly not necessary. He presented to the ED at [facility] and ultimately, his labs continue to show worsening LFT's (total bili of 3.6 (up from 0.9 in 12/2023), alk phos of 883, ALT of 272, AST of 203 and albumin of 3.5, with lipase of 19). He has pancytopenia, withplatelets of 74 and [address] of [address]. [address] imaging of his abd/pelvis was obtained that revealed continued progression of disease in his lungs, liver and lymph. He has ascites, with concern for peritoneal carcinomatosis. There is also increased bilary ductal dilatation, particularly in the left hepatic lobe, with concern for compression from adenopathy. He is being admitted to the Inpatient Palliative Care Service for ongoing symptom and medical management. Due to findings of ascites on abdominal imaging and increasing abdominal distention with discomfort, Mr. Tabares underwent paracentesis the morning of 03/04. Approximately 800 cc was removed (248 totalnucleated cells 4% neutrophils, BF albumin 0.5, SAAG 2.5, BF protein 0.5). Gastroenterology was consulted and recommended ERCP for palliative si he can receive more cancer directed therapy. Initially to have this on next day 03/05 but not able to get into the schedule. He remained NPO standby but unfortunate was snot able to have the procedure. GI talked to him in the roomand reccommended to be discharge and come back on 03/08 and have ERCP outpatient. His symptoms were better managed and he decided to go home and come back on Friday for the procedure. He and his were reassured that they could call the Palliative number in case of questions or worsen of symptomsday or night. He was discharged home and ERCP scheduled for 03/08. CONSULTS ORDERED DURING THIS ADMISSION IP CONSULT TO HEPATOLOGY IP CONSULT TO DIETITIAN Procedures Performed : paracentesis Pertinent Diagnostic Results: Labs: CBC, basic metabolic panel, and INR Microbiology: peritoneal fluid culture CONDITION AT DISCHARGE stable Discharge instructions were provided to the patient and caregiver(s). Total time spent in discharge services today: 55 minutes. documented in this encounter Medications at Time [...] twice daily Fri-. 30 g 3 10/28/2023 LACTOBACILLUS ACIDOPHILUS ORAL [...] twice daily Fri-Th. 240 g 3 10/28/2023 HYDROmorphone (DILAUDID) 4 [...] 02/05/2024 03/12/2024 documented as of this encounter Progress Notes * Ning Zuniga M.A., [facility] - 03/05/2024 1:23 PM CDT Inpatient Palliative Care Service Music Therapy Assessment Note Patient: Luis Tabares Age:43 y.o. Location: [place] [id number] Date of Encounter: 03/05/2024 Reason(s) of encounter: Coping and Nonpharmacologic Pain Management Summary: Attempted to introduce services to Mr. Tabares. At time of arrival he and his were sleeping soundly. Music Therapy Assessment Music Therapy interventions: Patient unavailable due to sleeping soundly Plan / Recommendations: Music Therapy will continue support for Luis and his family as part of the Palliative Medicine planof care. For more immediate needs music therapy can be contacted by paging [phone] Ning Zuniga M.A. [facility] Palliative Care Music Therapist * Denice Guerrero M.D. - 03/05/2024 8:[address] [facility] Palliative Medicine [facility] [place] [place] PROGRESS NOTE SUBJECTIVE Mr. Luis Tabares is a 43 year old male from [place], [place] who presented to the ED on 03/03/24 with malaise, abdominal pain, nausea, and vomiting after being told that he did not need a scheduled ERCP(which was to be done today). His medical history is significant for metastatic rectal cancer, initially diagnosed in April 2018 (mets to liver, lymph, lung). He has progressed through multiple lines of cancer directed therapy. Heis being admitted to the Inpatient Palliative Care Service for ongoing symptom and medical management, with continued progression of disease and elevated LFT's. Interval: No acute events overnight. Tachycardic to 120 bpm (consistent with prior admissions), HDS, and AF Reports abdominal pain has improved I have reviewed the current medication list. OBJECTIVE VITAL SIGNS Temperature: [36.3 ??C-36.6 ??C] 36.6 ??C Resp Rate: [12-18] 12 Blood Pressure: (113-127)/(80-94) 113/81 SpO2: [93 %-98 %] 98 % Height: [179.3 cm] 179.3 cm Pulse Rate: [115-127] 115 PHYSICAL EXAM Constitutional Appearance: Normal appearance. Cardiovascular Rate and Rhythm: Tachycardia present. Pulmonary Effort: Pulmonary effort is normal. No respiratory distress. Abdominal General: There is no distension. Skin General: Skin is warm and dry. Neurological Mental Status: He is alert. Psychiatric Mood and Affect: Mood normal. Behavior: Behavior normal. Thought Content: Thought content normal. DIAGNOSTICS I have personally reviewed the laboratory data and imaging since admission, and in/outs for past 72hours. ASSESSMENT / PLAN Mr. Luis Tabares is a 43 year old male from [place], [place] who presented to the ED on 03/03/24 with malaise, abdominal pain, nausea, and vomiting after being told that he did not need a scheduled ERCP(which was to be done today). His medical history is significant for metastatic rectal cancer, initially diagnosed in April 2018 (mets to liver, lymph, lung). He has progressed through multiple lines of cancer directed therapy. Heis being admitted to the Inpatient Palliative Care Service for ongoing symptom and medical management, with continued progression of disease and elevated LFT's. 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 Tabares is doing fairly well the morning of 03/04 but continues to express ongoing, albeit relatively mild, abdominal discomfort. Nausea and vomiting have subsided, which he attributes to remainingNPO prior to possible ERCP. At this time we are awaiting further recommendations from our colleagues in Gastroenterology regarding the utility ERCP. There was apparently concern based on imaging thatthe cholestatic pattern of liver injury is secondary to underlying metastatic disease that would not be amenable to stenting. If this is confirmed to be the case, we will consider additional options such as percutaneous drainage with IR. Conversations with his outpatient Oncology team are ongoing, though they have raised concerns that therapeutic options from a cancer standpoint are unfortunatelylimited. Abdominal imaging and physical examination demonstrate ascites and the patient himself reports noticeable abdominal distension over the prior days to weeks. I do wonder to what extend ascites may be contributing to his symptoms of abdominal pain and nausea/vomiting, though previously these have been attributes to his underlying malignancy and resulting mass effect. After speaking with GI, we willarrange for diagnostic/therapeutic paracentesis on 03/04. He is still tachycardic to 110-120 bpm over the last 24 hours. Looking back at her prior hospitalizations, this appears to be approximately his baseline. He has no localizing symptoms of infection and remains afebrile at this time. Plan for Today: Awaiting further recommendations from GI regarding ERCP Diagnostic/therapeutic paracentesis on 03/04. Good relive of his pain Continue discussions with outpatient Oncology (Dr. Neff and Dr. Alegria) regarding next steps in management # Hyperbilirubinemia direct # Transaminitis # Ascites # Malignant neoplasm of the rectum # secondary malignant neoplasm of lung, colon, liver, lymph nodes Hepatobiliary service consulted regarding need for ERCP, appreciate recommendations If ERCP declined, consider IR consultation for percutaneous drainage of biliary system Diagnostic/therapeutic paracentesis Outpatient Oncology engaged, appreciate recommendations # Pain cancer related Continue dexamethasone 4 mg daily Outpatient Oncology to determine whether dose increase would be of benefit PJP prophylaxis if patient to remain on long-term steroid use Tylenol 650 mg p.o. q.6 hours p.r.n. Continue methadone 2.5 mg p.o. b.i.d. Ensure aggressive electrolyte repletion (K+ > 4, Mg >2.0) P.r.n. Dilaudid for breakthrough 4 mg p.o. q.4 hours p.r.n. for moderate pain 0.8 mg IV q.2 hours p.r.n. for severe pain # Nausea # Vomiting Continue Protonix 40 mg p.o. daily Continue with Kytril 1 mg po every 12 hours prn. FIRST LINE Consider scheduling Zyprexa 2.5 mg 3 times daily p.r.n. SECOND LINE Compazine 10 mg p.o./IV q.6 hours p.r.n. THIRD LINE # Constipation Last BM 03/03 (tends towards loose stools). Has utilized lomotil and imodium for loose stools in the past (diarrhea typically worsens with chemotherapy). Start senokot-s 1 tablet po BID prn. Does not have a rectum (unable to use suppositories or enemas) # Anxiety Continue melatonin 10 mg po daily at bedtime. Continue lorazepam 0.5 mg po every 6 hours prn. Start Zyprexa 2.5 mg po TID prn. IDT staff for support, especially for 7 year old son, Krishan. Consider engaging child life Does intermittently use THC at home # HTN Continue home amlodipine 10 mg Current Activity/Mobility: PAMP Level 3 (walks occasionally, majority of day is spent sitting in chair) Fluids: PRN IVF, encourage oral intake Electrolytes: Replete prn Nutrition/Diet: NPO Lines/Drains: Port DVT Prophylaxis: HOLD for procedures Code Status: Full Code Healthcare Surrogate(s): , Dolores Tabares Advance Care Planning Documentation: None on file in EHR; ACP note placed today. Anticipated Disposition: TBD, likely home with family. Non-severe (moderate) Malnutrition The patient meets the ASPEN Criteria of malnutrition based on: Energy Intake: Unable to Assess Interpretation of Weight Loss: greater than 10% 6 months (-17.4% in 7 months) Body Fat: Unable to Assess (RDN will perform nutrition-focused physical exam when able/appropriate) Muscle Mass: Unable to Assess Fluid Accumulation: Mild This is in the context of Chronic Illness. Malnutrition Present Upon Admission: Yes Agree with Registered Dietitian's assessment and treatment plan: Interventions: Increase nutrient intake with small, frequent meals and/or snacks, Medical food supplement, Provide education to increase nutrition knowledge (RDN will provide intervention/recommendations when appropriate. Patient NPO at this time.) Plan discussed with [facility] [place] [place] [employer]ol[employer] Measurer, Denice Ulloa M.D., who was present during griffith portions of the evaluation today. Please page the [facility] Palliative [facility] ([facility] [place] service pager at [phone] for any questions. * Blaire Navarro CCLS - 03/04/2024 3:45 PM CDT Child Life Child(leonila) of Adult Patient Luis Tabares is a 43 y.o. male seen today. Reason for Consult: Other (comment) (progression of illness) Visit Type: In-person visit Child Life Time Spent (Min): 5 CCLS checked in with pt and pt's , Dolores. Pt's 7-year-old son was sitting in the room on his iPad. Pt asked CCLS to return another time as they had just met with care team and wanted time to process information. CCLS will plan to touch base tomorrow (03/05). * Marquita Hutson Pharm.D., R.Ph. - 03/04/2024 2:12 PM CDT Pharmacist Progress Note Palliative Medicine Pharmacist Luis Tabares admitted to the inpatient palliative care service for symptom management Date of Admission: 03/03/2024 at 3:57 PM Reason for admission: abdominal pain, nausea, and vomiting Relevant PMH: metastatic rectal cancer (mets liver, lymph, lung), OBJECTIVE Home medications: Held: fish oil, ibuprofen, pregabalin Changed: lomotil Patient own medications: NA VTE prophylaxis: NA - currently on hold for possible procedures GI prophylaxis: pantoprazole ID prophylaxis: NA ASSESSMENT / PLAN # Transaminitis # Hyperbilirubinemia # Ascites Hepatobiliary service consulted for possible ERCP Paracentesis (03/04): 786 cc # Pain Scheduled Opioid: Methadone 2.5 mg bid (home rx) Qtc (03/03): 455 PRN Opioid: HM 0.8 mg IV q2h prn HM 4 mg po q4h prn Adjuvants: APAP prn Dexamethasone 4 mg daily (03/04-__) SUP: pantoprazole # Nausea Scheduled Rx: Dexamethasone 4 mg daily Pantoprazole 40 mg daily PRN Rx: Granisetron 1 mg q12h prn Olanzapine 2.5 mg tid prn Prochlorperazine 10 mg IV/PO q6h prn # Bowel Last reported bowel movement: 03/04 Scheduled bowel regimen: NA # HTN Amlodipine 10 mg daily (home rx) Changes to medications anticipated at discharge: TBD Disposition planning: TBD Marquita Hutson, PharmCandidoD., R.Ph. The recommendations contained in this note are based on information available at the time of documentation and may not reflect changes in the care plan discussed after the time of signing. * Aram Soriano L.I.C.S.W. - 03/04/2024 10:49 AM CDT SUBJECTIVE Palliative medicine social organization professor made a supportive visit to Luis, Dolores, and son Krishan. My colleague LUCAS Gant in the outpatient palliative care setting has also seen Elijah, on 10/22/23. At this visit, the extensively discussed supporting their 7 year old son and provided resources and connection. Luis was diagnosed when Krishan was 1 years old, so they reflect this is all Shravan has known. They are very open, honest and candid. I made Luis and Dolores aware that our Pediatric Child Life team may be stopping by, which they welcomed. I spent a few minutes introducing myself [place], indicated what I am available to him for, and asked if he needed any additional activities while he spends time at the hospital. He welcomes some additional activities today, noting that he likes the outdoors, hunting, fishing, sports, and animals/farming. Dolores shares growing up, he enjoyed farming so much that they used to call him Iniguez Krishan with a smile. I was able to bring in some age appropriate activities such as stickers (animals, sports), coloringutensils, paper, a blanket, and Hungry [employer] game. Indicated there are also some games available in the family room, and made them aware of patient library downstairs. I suspect Child Life may have some other activities as well. Dolores is understandably anxious to find out more information, and was appropriately tearful. She isglad they are in the palliative care unit, and we shared we are in close communication with GI and oncology. Expressed appreciation. OBJECTIVE Palliative medicine continues to follow closely for symptom management. ASSESSMENT / PLAN ASSESSMENT Krishan (7), Dolores and Luis easily engaged in conversation. Krishan discussed his likes/dislikes and appears comfortable in the hospital setting. He welcomed activities today. PLAN Provided sticker journal kit, games, coloring utensils, paper, and a blanket. Made family aware of other hospital resources. [place], and Child Life also following. Marilyn KirbySMeghana 03/04/24 * Denice Guerrero M.D. - 03/04/2024 8:26 AM CDT [facility] Inpatient Palliative Care Service Progress Note Attestation Patient: Luis Tabares; 43 y.o.male Location: [id number] Date of Service: 03/04/2024 Time of Visit: 12:31 PM CDT Hospital Admission Date: 03/03/2024 9:24 AM Hospital Day: 1 I have seen and evaluated Luis Tabares as part of a collaborative visit for the Inpatient Palliative Care Service (IPCS) interdisciplinary team rounds. The patient's primary responsible clinician for 03/04/[address] Bonita MD Internal Medicine PGY-3 . I have reviewed the pertinent history and discussed the impression/plan with my team. I agree with the history, examination, impression, and recommendations as documented in today's note from the primary responsible clinician with notable exceptions/additions below. Impression/Report/Plan: Mr. Luis Tabares is a 43 year old male from [place], [place] who presented to the ED on 03/03/24 with malaise, abdominal pain, nausea, and vomiting after being told that he did not need a scheduled ERCP(which was to be done today). His medical history is significant for metastatic rectal cancer, initially diagnosed in April 2018 (mets to liver, lymph, lung). He has progressed through multiple lines of cancer directed therapy. Heis being admitted to the Inpatient Palliative Care Service for ongoing symptom and medical management, with continued progression of disease and elevated LFT's. 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 Bonita MD, Internal Medicine PGY- 3 for a complete summary of our visit, impressions, and treatment plan. Please do not hesitate to call the primary responsible clinician signed into [employer], utilize the [employer] chat function, or call Inpatient Palliative Care Service (IPCS) pager at [phone] for any questions. Total time spent was 45 minutes, with 40 minutes spent on counseling and coordination of care, including diagnostic results/impressions, further recommendations for diagnostic studies, risks/benefits/alternatives of treatment options, and importance of adherence with suggested management plans. I also reviewed my impressions and recommendations with other health care providers to accommodate the needs of the patient. Denice Puri M.D. Tobacco Primer Machine Operatorrehab specialist Division of Community Internal Medicine, Geriatrics, and Palliative Care Section of Palliative Care * Viraj Mesa M.D. - 03/04/2024 8:07 AM CDT [facility] [place] [place] PROGRESS NOTE SUBJECTIVE Mr. Luis Paramus is a 43 year old male from [place], [place] who presented to the ED on 03/03/24 with malaise, abdominal pain, nausea, and vomiting after being told that he did not need a scheduled ERCP(which was to be done today). His medical history is significant for metastatic rectal cancer, initially diagnosed in April 2018 (mets to liver, lymph, lung). He has progressed through multiple lines of cancer directed therapy. Heis being admitted to the Inpatient Palliative Care Service for ongoing symptom and medical management, with continued progression of disease and elevated LFT's. Interval: No acute events overnight. Tachycardic to 120 bpm (consistent with prior admissions), HDS, and AF Last episode of emesis was while driving to [place] on 03/03. Tolerated a sandwich that evening without nausea/vomiting. Denies symptoms this morning as he has remained NPO Reports some abdominal pain this morning worse with leaning forward Denies prior paracentesis. Endorses increasing abdominal distension and fullness over the days to weeks prior to presentation, which he believes coincides with worsening abdominal pain I have reviewed the current medication list. OBJECTIVE VITAL SIGNS Temperature: [36.4 ??C-36.7 ??C] 36.5 ??C Heart Rate: [113-126] 119 Resp Rate: [12-25] 16 Blood Pressure: (104-135)/(73-94) 119/75 SpO2: [92 %-100 %] 97 % Weight: [78.2 kg] 78.2 kg Pulse Rate: [112-126] 116 PHYSICAL EXAM Constitutional Appearance: Normal appearance. Cardiovascular Rate and Rhythm: Tachycardia present. Pulmonary Effort: Pulmonary effort is normal. No respiratory distress. Abdominal General: There is distension. Skin General: Skin is warm and dry. Neurological General: No focal deficit present. Mental Status: He is alert. Psychiatric Mood and Affect: Mood normal. Behavior: Behavior normal. Thought Content: Thought content normal. DIAGNOSTICS I have personally reviewed the laboratory data and imaging since admission, and in/outs for past 72hours. ASSESSMENT / PLAN Mr. Luis Tabares is a 43 year old male from [place], [place] who presented to the ED on 03/03/24 with malaise, abdominal pain, nausea, and vomiting after being told that he did not need a scheduled ERCP(which was to be done today). His medical history is significant for metastatic rectal cancer, initially diagnosed in April 2018 (mets to liver, lymph, lung). He has progressed through multiple lines of cancer directed therapy. Heis being admitted to the Inpatient Palliative Care Service for ongoing symptom and medical management, with continued progression of disease and elevated LFT's. 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 Tabares is doing fairly well the morning of 03/04 but continues to express ongoing, albeit relatively mild, abdominal discomfort. Nausea and vomiting have subsided, which he attributes to remainingNPO prior to possible ERCP. At this time we are awaiting further recommendations from our colleagues in Gastroenterology regarding the utility ERCP. There was apparently concern based on imaging thatthe cholestatic pattern of liver injury is secondary to underlying metastatic disease that would not be amenable to stenting. If this is confirmed to be the case, we will consider additional options such as percutaneous drainage with IR. Conversations with his outpatient Oncology team are ongoing, though they have raised concerns that therapeutic options from a cancer standpoint are unfortunatelylimited. Abdominal imaging and physical examination demonstrate ascites and the patient himself reports noticeable abdominal distension over the prior days to weeks. I do wonder to what extend ascites may be contributing to his symptoms of abdominal pain and nausea/vomiting, though previously these have been attributes to his underlying malignancy and resulting mass effect. After speaking with GI, we willarrange for diagnostic/therapeutic paracentesis on 03/04. I do note that he was tachycardic to 110-120 bpm over the last 24 hours despite volume resuscitation with 2 L crystalloid. Looking back at her prior hospitalizations, this appears to be approximatelyhis baseline. He has no localizing symptoms of infection and remains afebrile at this time. Other co ncerns would be pulmonary embolism (Wells score 2.5), though again the chronicity of tachycardia would argue against this. He has no symptoms of shortness of breath, DVT, etc. Will continue to monitor. Plan for Today: Awaiting further recommendations from GI regarding ERCP. They are currently reviewing the case withtheir procedural team Diagnostic/therapeutic paracentesis on 03/04. Discussed briefly with Gastroenterology, who is agreeable to this. Continue discussions with outpatient Oncology (Dr. Neff and Dr. Alegria) regarding next steps in management # Hyperbilirubinemia direct # Transaminitis # Ascites # Malignant neoplasm of the rectum # secondary malignant neoplasm of lung, colon, liver, lymph nodes Hepatobiliary service consulted regarding need for ERCP, appreciate recommendations If ERCP declined, consider IR consultation for percutaneous drainage of biliary system Diagnostic/therapeutic paracentesis Outpatient Oncology engaged, appreciate recommendations # Pain cancer related Continue dexamethasone 4 mg daily Outpatient Oncology to determine whether dose increase would be of benefit PJP prophylaxis if patient to remain on long-term steroid use Tylenol 650 mg p.o. q.6 hours p.r.n. Continue methadone 2.5 mg p.o. b.i.d. Ensure aggressive electrolyte repletion (K+ > 4, Mg >2.0) P.r.n. Dilaudid for breakthrough 4 mg p.o. q.4 hours p.r.n. for moderate pain 0.8 mg IV q.2 hours p.r.n. for severe pain # Nausea # Vomiting Continue Protonix 40 mg p.o. daily Continue with kytril 1 mg po every 12 hours prn. FIRST LINE Consider scheduling Zyprexa 2.5 mg 3 times daily p.r.n. SECOND LINE Compazine 10 mg p.o./IV q.6 hours p.r.n. THIRD LINE # Constipation Last BM 03/02 (tends towards loose stools). Has utilized lomotil and imodium for loose stools in the past (diarrhea typically worsens with chemotherapy). Start senokot-s 1 tablet po BID prn. Does not have a rectum (unable to use suppositories or enemas) # Anxiety Continue melatonin 10 mg po daily at bedtime. Continue lorazepam 0.5 mg po every 6 hours prn. Start zyprexa 2.5 mg po TID prn. IDT staff for support, especially for 7 year old son, Krishan. Consider engaging child life Does intermittenly use THC at home # HTN Continue home amlodipine 10 mg Current Activity/Mobility: PAMP Level 3 (walks occasionally, majority of day is spent sitting in chair) Fluids: PRN IVF, encourage oral intake Electrolytes: Replete prn Nutrition/Diet: NPO Lines/Drains: Port DVT Prophylaxis: HOLD for procedures Code Status: Full Code Healthcare Surrogate(s): , Dolores Tabares Advance Care Planning Documentation: None on file in EHR; ACP note placed today. Anticipated Disposition: TBD, likely home with family. Plan discussed with [facility] [place] [place] Drapery And Upholstery Measurer, Denice Ulloa M.D., who was present during griffith portions of the evaluation today. Please page the [facility] ([facility] [place] service pager at [phone] for any questions. Viraj Mesa M.D. PGY-3, Internal Medicine Pager #[phone] * Shane Clarke P - 03/03/2024 2:35 PM CDT [facility] Spiritual Care Progress Note Patient: Luis Tabares Age:43 y.o. Location: [facility] ED08/E08-P Reason(s) for encounter: Spiritual Care contact to introduce spiritual care service and assess for potential spiritual care needs. Spiritual and psychosocial support as part of the interdisciplinary care team. Summary: I was able to meet with Luis Tabares along with his Dolores and son. He spoke about his finnegan with cancer since 2015. They spoke about how he was supposed to have a procedure today, but wassent to the ED instead. He repeatedly expressed hope saying another bump in the road and we'll get through it. Spiritual Assessment Christianity Identification / Spiritual Practices: Liban, updated chart upon inquiry. Coping and support: Mr. Tabares was accompanied by his and son as sources of support. Spiritual Needs and/or Concerns: Mr. Tabares identified no needs, while also expressing gratitude for the visit. Spiritual Care interventions: Introduced the role as member of the interdisciplinary care team and assessed spiritual care needs/concerns of patient and/or family Therapeutic and supportive listening was provided with the aim of allowing patient/family expression of emotions, hopes and worries regarding current medical condition and life stage. Spiritual Care outcomes: Patient/family became familiar with the role of spiritual care provider and identified spiritual care needs. Patient/family verbally processed fears and hopes regarding prognosis. Patient/family was appreciative of spiritual care support. Spiritual Care Plan / Recommendations: Will remain available for spiritual care as needed or requested. Chaplains can be contacted by paging [phone] ([place]) or [phone] ([place]). documented in this encounter H&P Notes * Ana Palm APRN, C.N.P. - 03/03/2024 5:00 PM CDT [facility] Inpatient Palliative Care Service (IPCS) Admission History and Physical Patient: Luis Tabares; 43 y.o.male Location: E08/E08-P Location Type: Hospital - Palliative Care Unit Date of Service: 03/03/2024 Time of Visit: 5:00 PM CDT Hospital Admission Date: 03/03/2024 9:24 AM Hospital Day: 0 Primary Auto Polisher: Denice Guerrero M.D. Primary Care Provider: ELSEWHERE, PCP SUBJECTIVE Reason for Admission: Abdominal Pain, nausea, vomiting History of Present Illness Mr. Luis Tabares is a 43 year old male from [place], [place] who presented to the ED on 03/03/24 with malaise, abdominal pain, nausea, and vomiting after being told that he did not need a scheduled ERCP(which was to be done today). His medical history is significant for metastatic rectal cancer, initially diagnosed in April 2018 with locally advanced rectal cancer treated with 28 fractions of radiation with capecitabine followedby laparoscopic proctectomy with colo-anal anastomosis then followed by adjuvant FLOX for 4 months.He then had metastatic recurrence in the right lung and multiple wedge excisions in March of 2020. Hestarted irinotecan plus panitumumab with a significant response. In July of 2020, he had a mediastinal lymphadenectomy (involvement of at least 3 nodes), radiation completed from August to September 2020 followed by irinotecan and panitumab through January 2021. Unfortunately, in April of 2021 he had metastatic recurrence in a right sided 5th rib, left upper lobe and liver, managed with radiation and then irinotecan +bevacizumab 06/2021-12/2021 with stable liver disease, ablation of liver lesions in 02/2022, third line KIM initiated in 11/2022 and bevacizumab added in May. He experienced thromb ocytopenia. In June 2023, he transitioned to 5 FU alone (with missed doses due to thrombocytopenia). In 08/2023, he had a celiac plexus block, which was not overly helpful. As of 09/2023, he has been on irinotecan plus panitumumab every 2 weeks (last infusion 12/2023). This has been on hold due to travel (went to [place] with his dad for a vacation) and ongoing worsening LFT's. He currently follows with Dr. Alegria (previously with Dr. Fishman prior to his assisted). He was last evaluated with Dr. Alegria 12/24/2023 and plans at that time were for repeat imaging in 3 months. Today, on his way to his scheduled ERCP, he received a phone call from the [employer] and the procedure was canceled, as it was reportedly not necessary. He presented to the ED at [facility] and ultimately, his labs continue to show worsening LFT's (total bili of 3.6 (up from 0.9 in 12/2023), alk phosof 883, ALT of 272, AST of 203 and albumin of 3.5, with lipase of 19). He has pancytopenia, with platelets of [address] and [address] of [address]. [address] imaging of his abd/pelvis was obtained that revealed continued progression of disease in his lungs, liver and lymph. He has ascites, with concern for peritoneal carcinomatosis. There is also increased bilary ductal dilatation, particularly in the left hepaticlobe, with concern for compression from adenopathy. He is being admitted to the Inpatient Palliative Care Service for ongoing symptom and medical management. At time of admission, he was sitting up in bed. He is able to ambulate independently in his room. He shares the frustration associated with today and is just wanting to be able to figure out if thereis some way to help his symptoms. He shares how he is a little scared about the elevated liver function tests. He shares how his abdominal pain has progressively worsened. He used to take 2-3 prn doses of dilaudid (4 mg) per week. However, in the last week, he has typically taken a prn dose every night, as it is difficult to get comfortable. He has chronic back pain as well (primarily throughout his entire spine and most recently in his right upper back). He has a decreased appetite and intermittent nausea. He denies shortness of breath, but definitely has noticed that he isn't able to do thethings he used to be able to do. He shares with me that he is tired, but he has to keep going for his 7 year old Krishan. He shares how he and his , Dolores (they will celebrate their 9 year wedding anniversary in May) talked with Krishan openly about Luis's diagnosis in November of this year and Krishan shared with them, I know dad. 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 Luis shares how hard ithas been as his primary oncologist (Dr. Fishman) retired in November, and though he likes Dr. Alegria, mineasn't been the same. He has been on a break from his chemo as he took a vacation with his dad and given his elevated LFT's, he hasn't been able to get more treatment. He is hoping to be able to get things figured out because he doesn't want to continue to be in limbo and wants to be able to spend as much time with his family outside of the hospital as possible. I was able to meet Ms. Tabares and their son, Krishan. They are an incredible family. No other concerns from Mr. Tabares, family or bedside nursing at this time. Palliative Medicine Symptom Assessment: Pain: Generalized abdominal pain. Chronic back pain that has been more noticeable, especially in the right upper back. Dyspnea: Denies, on RA. Bowels: The patient did have a bowel movement in the past 48 hours. Last BM 03/02. Nausea/Vomiting: Ongoing nausea. No vomiting at time of admission. I have reviewed the patient's record in the [place] Prescription Drug Monitoring Program (PDMP) with no unexpected findings. The following portions of the patient's history were reviewed and updated as appropriate: Allergies, Current Medications, Medical History, Surgical History, Family History, and Social History Admission Medications: Medications Scheduled Medication Ordered Dose/Rate, Route, Frequency Last Action NaCl 0.9 % bolus 1,000 mL 1,000 mL, IV, Once New Bag, 1,000 mL at 03/03 1631 PRN Medication Ordered Dose/Rate, Route, Frequency Last Action HYDROmorphone (PF) injection 1 mg (DILAUDID) 1 mg, IV, Q1H PRN Ordered Medical/Surgical/Family/Social/Spiritual History Summary PMH per HPI. Is to Dolores (will be 9 years in May). They have one son, Krishan. He is 7 and attends the [employer] in [place], [place]. He likes to play many sports. 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 His darwin is important to him. Patient's Primary Caregiver: Spouse or Partner. Advance Care Planning Documents I reviewed the following document(s): Other - none I completed/provided the following document(s): Advance Care Planning (ACP) Note Code Status at Time of Admission Full Code Review of Systems Constitutional: Fever, Chills, Weight Loss, Anorexia, Fatigue, Malaise HEENT: Headaches, Dizziness Respiratory: Dry Cough, Productive Cough, Shortness of breath Cardiovascular: Orthopnea, ??Chest Pain, ?Palpitations, LE edema? GI: Dysphagia, Odynophagia, Heartburn, Hiccups, Hematemesis, Nausea/Vomiting, Diarrhea, Constipation, Abdominal pain, Melena, Hematochezia? : Dysuria, Hematuria, Incomplete Voiding, Frequency, Retention/Incontinence? Musculoskeletal: Bone pain, Joint pain/swelling, Muscle spasm?, Muscle pain, Back pain Skin: Pruritis, Dry skin??, Rash Neurological: Drowsiness, Difficulty thinking/Memory Impairment, Paresthesia, Myoclonus? Psychiatric: Anxiety, Depression, Irritability, Sadness, Hallucinations (visual/auditory)? The patient reports symptoms that are bold. All other systems have been reviewed and are negative.??? Palliative Functional Assessment 60% Reduced ambulation. Unable to do hobbies/Significant evidence of disease. Occasional self-care assistance. Normal or reduced oral intake. Full consciousness/confusion. OBJECTIVE Vital Signs, In/Out, Physical Exam Temperature: [36.5 ??C-36.6 ??C] 36.6 ??C Heart Rate: [113-126] 125 Resp Rate: [12-25] 16 Blood Pressure: (104-133)/(73-94) 116/84 SpO2: [94 %-100 %] 97 % Weight: [78.2 kg] 78.2 kg Pulse Rate: [113-126] 125 I/O last 3 completed shifts: In: 1000 Out: - I/O this shift: In: 1000 Out: - General: Alert male, sitting up in bed, in no acute distress. HEENT: Moist mucous membranes, mild conjunctival icterus. CV: Tachycardic rate and regular rhythm, no murmur, gallop, or rub. No lower extremity edema. Respiratory: Unlabored respirations. On RA. Lung sounds clear in the upper lobes, diminished in thebases. No wheezing, rhonchi or crackles. Abdomen: Slightly firm, mildly distended. Active bowel sounds. Extremities: Warm, well perfused. 2+ radial pulses. Musculoskeletal: Moves all extremities spontaneously. Skin: Pale, mildly jaundiced, warm, dry, intact. No rash, lesion, or ecchymoses to exposed skin. Neurologic: No gross sensory or motor deficits. No myoclonus. Speech is clear. Answers questions appropriately. Follows commands. Psychiatric: RASS 0. Pleasant and cooperative. Diagnostics/Medications/Allergies I have reviewed medications, allergie, recent labs, imaging, and other diagnostics. Relevant results to this admission include labs as below, with CT imaging. INR of 1.3 from 03/03. Albumin of 3.5, lipase of 19 and lactate of 1 from 03/03. Lab Results Component Value Date NA 138 03/03/2024 KSERUM 4.2 12/24/2023 KBLOOD 4.1 09/16/2018 KPLASMA 4.1 03/03/2024 EXTK 4.4 04/04/2023 CL 104 03/03/2024 BICARB 26 03/03/2024 CREATININE 0.50 (L) 03/03/2024 CREATPOC 0.9 05/06/2023 EGFRBLKAA >90 06/26/2022 EGFRNONBLKAA 84 06/26/2022 POCEGFRNONAA 81 06/26/2022 EGFR >90 03/03/2024 EGFRPOCT >90 05/06/2023 BUN 7 (L) 03/03/2024 ANIONGAP 8 03/03/2024 GLUCOSE 106 03/03/2024 CALCIUM 8.9 03/03/2024 Lab Results Component Value Date WBC 3.7 03/03/2024 HGB 12.6 (L) 03/03/2024 HCT 39.1 03/03/2024 MCV 86.5 03/03/2024 PLT 74 (L) 03/03/2024 Lab Results Component Value Date ALT 272 (H) 03/03/2024 AST 203 (H) 03/03/2024 ALKPHOS 883 (H) 03/03/2024 BILITOT 3.6 (H) 03/03/2024 CT abd/pelvis from 03/03: COMPARISON: Outside MRI abdomen, 02/26/2024; PET-CT, 12/24/2023; outside CT abdomen and pelvis with contrast, 12/08/2023. FINDINGS: Redemonstration of multiple bilateral pulmonary metastases. In comparison with the PET-CTon 12/24/2023, some of these metastases appear increased in size. For instance a metastasis in the medial left lingula (3/5) measures 1.6 x 1.6 cm (previously 1.4 x 1.2 cm) and a metastasis in the medial aspect of the right lower lobe (3/10) measures 1.8 x 1.6 cm (previously 1.5 x 1.4 cm). No definite new pulmonary metastases compared to the CTthe abdomen from 12/08/2023; although, the metastases are [...] 12/08/2023. For instance an aortocaval lymph node (64) now measures 1.1 x 1 cm (previously 5 mm). There are few subtle hypodensities in the spleen, nonspecific (for instance 02/10). There is increased free fluid in the abdomen and pelvis now small to moderate in volume. Increasingperitoneal/mesenteric stranding and/or nodularity and a component of [...] correlate with the outside MRI from 02/26/2024. ASSESSMENT / PLAN Impression/Report/Plan Mr. Luis Tabares is a 43 year old male from [place], [place] who presented to the ED on 03/03/24 with malaise, abdominal pain, nausea, and vomiting after being told that he did not need a scheduled ERCP(which was to be done today). His medical history is significant for metastatic rectal cancer, initially diagnosed in April 2018 (mets to liver, lymph, lung). He has progressed through multiple lines of cancer directed therapy. Heis being admitted to the Inpatient Palliative Care Service for ongoing symptom and medical management, with continued progression of disease and elevated LFT's. 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 Tabares is continuing to have progression of disease and worsening liver functiontests. He was scheduled to have an ERCP in the outpatient setting today, but this was cancelled at the request of the procedurlist, out of concern that his symptoms are due to progression of his disease and an ERCP may not be the right test or procedure at this time. Given his ongoing symptoms of pain, nausea and decreased appetite, he is being admitted to our palliative service for ongoing symptom management and assistance with coordination of care with the GI and oncology teams. I was able to talk with the fellow on the HBS consult team this evening. She will plan to discuss his case with the procedurlists in the AM to determine if proceeding with an ERCP vs alternate intervention would be recommended. We will plan to keep him NPO for tonight, and hold any anticoagulation. We will have a low threshold to adjust his medication regimen to manage his symptoms. We will reachout to Dr. Alegria (oncology) to determine if OK to increase steroids, as well as recommendations for additional work-up while hospitalized (due for repeat scans in 03/2024). Of note, optimizing time at home with his 7 year old son, Krishan, is of utmost importance. We will engage our IDT staff for ongoing support as well. Plan GI Hepatobiliary consult to determine if ERCP vs alternate intervention indicated given his continued progression of disease and worsening LFT's. Appreciate assistance. Repeat CMP, CBC, magnesium in AM. Closely monitor LFT's Closely monitor pancytopenia NPO after midnight in anticipation of procedures 03/04. If going to be NPO for a majority of the day, consider maintenance IVF (LR at 50 ml/hr) - though hedoes have evidence of ascites on scans as well, so would not want to overload him with fluid. HOLD anticoagulation in anticipation of procedures. Consider U/S paracentesis for ascites Email communication to Dr. Alegria (oncologist) to determine if OK to increase dexamethasone for symptoms, as well as to determine if additional imaging is recommended while inpatient (restaging scans due 03/2024). Continue with norvasc 10 mg po daily, vitamin C, vitamin D, vitamin b12, MVI, potassium 20 meq po BID for now. Consider obtaining echocardiogram, given persistent tachycardia. FOR PAIN: Continue with dexamethasone 4 mg po daily for now. If OK with oncology, consider increasing to BID dosing. If going to remain on steroid extermination inspector, will need PJP prophylaxis (consider pentamadine prior to discharge) Lyrica has been recommended in the outpatient setting, but has not started, as didn't want to add another medication. OK for tylenol 650 mg po every 6 hours prn. Monitor LFT's closely and would not schedule at this time. Continue with dilaudid 4 mg po every 4 hours prn. Start dilaudid 0.8 mg IV every 2 hours prn severe pain. Attempt to use oral first. Continue with methadone 2.5 mg po BID. EKG at time of admission with QTc interval of 469 seconds. Ensure potassium > 4 and magnesium > 2. FOR NAUSEA/VOMITING: Continue with protonix 40 mg po daily. Continue with kytril 1 mg po every 12 hours prn. FIRST LINE. Unable to use zofran while on kytril, as this is the long acting version. Consider scheduling kytril. Start zyprexa 2.5 mg ODT three times daily prn. SECOND LINE. Compazine 10 mg PO/IV every 6 hours prn. THIRD LINE. FOR CONSTIPATION: Last BM 03/02 (tends towards loose stools). Has utilized lomotil and imodium for loose stools in the past (diarrhea typically worsens with chemotherapy). Start senokot-s 1 tablet po BID prn. Does not have a rectum (unable to use suppositories or enemas). FOR ANXIETY/SLEEP: Continue with melatonin 10 mg po daily at bedtime. Was previously on cymbalta (no longer taking). Continue with lorazepam 0.5 mg po every 6 hours prn. Start zyprexa 2.5 mg po TID prn. IDT staff for support, especially for 7 year old son, Krishan. Consider engaging child life Does intermittenly use THC at home. Current Activity/Mobility: PAMP Level 3 (walks occasionally, majority of day is spent sitting in chair) Fluids: PRN IVF, encourage oral intake Electrolytes: Replete prn Nutrition/Diet: Regular Lines/Drains: Port Prophylaxis: HOLD for procedures Code Status: Full Code Healthcare Surrogate(s): , Dolores Tabares Advance Care Planning Documentation: None on file in EHR; ACP note placed today. Anticipated Disposition: TBD, likely home with family. Please do not hesitate to call the primary responsible clinician signed into [employer], utilize the [employer] chat function, or call the Inpatient Palliative Care Service (IPCS) pager at [phone] for any questions. Total time spent was 60 minutes, with >50% time spent on counseling and coordination of care, including diagnostic results/impressions, further recommendations for diagnostic studies, risks/benefits/alternatives of treatment options, and importance of adherence with suggested management plans. Ialso reviewed my impressions and recommendations with other health care providers to accommodate the needs of the patient. Ana Palm APRN, C.N.P. Nurse Practitioner [facility] documented in this encounter Consult Notes * Ina Henry M.S., RDN, LD - 03/05/2024 9:48 AM CDTAssociated Order(s): IP CONSULT TO DIETITIAN Clinical Nutrition: Initial Assessment Clinical Nutrition was requested to evaluate patient for positive nursing baseline nutrition screenwith a MST score of 2 or greater SUBJECTIVE Mr. Tabares is a 43 y.o. male admitted for Malignant Neoplasm Of Rectum (HCC) [C20] Elevated Bilirubin [E80.7] Nausea And Vomiting [R11.2] Ascites [R18.8] Elevated Liver Function Test [R79.89] Abdominal Pain [R10.9] Pain Cancer Associated [G89.3] Plan for ERCP for palliation of jaundice with intention to give patient ability to resume chemotherapy per GI consult note yesterday. 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 RDN will meet with patient whenable. Current Nutrition (since admission): Percentage of Meals Eaten for the past 72 hrs: Percent Meals Eaten (%) 03/04/24 1648 75 Nutrition history: No prior nutrition visits noted at [facility] per medical record review. OBJECTIVE Current nutrition orders: Dietary Orders (From admission, onward) Start Ordered 03/05/24 0000 No oral nutrition, no tube feeding Diet effective midnight 03/04/24 1503 Pertinent Labs: Last 3 results Lab Units 03/05/24 0809 03/04/24 0716 03/03/24 1028 SODIUM P mmol/L -- -- 138 SODIUM mmol/L 136 136 -- POTASSIUM mmol/L 4.0 3.8 -- POTASSIUM P mmol/L -- -- 4.1 CHLORIDE P mmol/L -- -- 104 CHLORIDE mmol/L 102 103 -- BUN P mg/dL -- -- 7* BUN mg/dL 6* 5* -- CREATININE mg/dL 0.54* 0.57* 0.50* MAGNESIUM mg/dL 2.1 1.7 -- GI Function: Last BM Date: 03/04/24, Passing Flatus: Yes Integumentary/Wounds: Lines/Drains/Airways Wound Duration Puncture 09/27/19 Chest Posterior;Right lung localization sites 1621 days Puncture 02/18/22 Abdomen Right;Upper;Quadrant ablation probes x5 746 days Medications: Scheduled Meds:amLODIPine, 10 mg, oral, QAM ascorbic acid (vitamin C), 250 mg, oral, Daily cholecalciferol, 125 mcg, oral, Daily clobetasoL, , topical, Daily cyanocobalamin, 1,000 mcg, oral, Daily dexAMETHasone, 4 mg, oral, Daily melatonin, 10 mg, oral, Daily at bedtime methadone, 2.5 mg, oral, BID multivitamin/mineral-adult, 1 tablet, oral, Daily pantoprazole, 40 mg, oral, QAM potassium chloride, 20 mEq, oral, BID with meals Continuous Infusions: None currently PRN Meds:. acetaminophen benzonatate diphenoxylate-atropine granisetron hydrocortisone HYDROmorphone HYDROmorphone ipratropium-albuteroL loperamide LORazepam naloxone OLANZapine prochlorperazine OR prochlorperazine Edisylate sennosides-docusate sodium Anthropometrics: Height: 179.3 cm Admission Weight: 78.2 kg (03/03/2024) Current Weight: 78.2 kg BMI: 24.32 kg/m2 Weight change since admission: 0 kg Net IO Since Admission: 1,694 mL [03/05/24 1228] Weight history: -16.5 kg or 17.4% body weight within past 7 months, severe for time frame. Wt Readings from Last 12 Encounters: 03/03/24 78.2 kg 12/24/23 78.7 kg 09/09/23 88.1 kg 08/25/23 88.5 kg 08/20/23 86.7 kg 07/30/23 94.7 kg 10/29/22 94.7 kg 02/18/22 96.4 kg 02/15/22 97.5 kg 01/16/22 98.8 kg 09/25/21 95.3 kg 08/27/21 94.3 kg Estimated Needs: Total Calorie Needs: 2071-1731+ calories/day Method to Estimate Energy Needs: kcal/kg (25-30 kcal/kg) Weight Used for Equation Calculations: 78.2 kg Total Protein Needs: 78 - 117 grams/day (Method to Estimate Protein Needs (g/kg): 1 - 1.5 gm/kg) Weight Used to Calculate Protein Needs (Kg): 78.2 kg Nutrition Diagnosis: Malnutrition (undernutrition) related to presumed decreased oral intake as evidenced by severe unintentional weight loss in context of fluid accumulation per ASPEN/AND criteria Malnutrition Criteria: Non-severe (moderate) Malnutrition The patient does meet the ASPEN Criteria of malnutrition based on: Energy Intake: Unable to Assess Interpretation of Weight Loss: greater than 10% 6 months (-17.4% in 7 months) Body Fat: Unable to Assess (RDN will perform nutrition-focused physical exam when able/appropriate) Muscle Mass: Unable to Assess Fluid Accumulation: Mild This is in the context of Chronic Illness. ASSESSMENT / PLAN ASPEN Criteria Malnutrition Status: Non-severe (moderate) Malnutrition Nutrition Intervention: Interventions: Increase nutrient intake with small, frequent meals and/or snacks, Medical food supplement, Provide education to increase nutrition knowledge (RDN will provide intervention/recommendations when appropriate. Patient NPO at this time.). Recommendations: No changes at this time; continue current nutrition orders Monitoring/Evaluation: Nutrition parameter to monitor: Diet Progression/NPO Status, Meals/Supplement Intake, Ascites/Edema, Weight Status, Comparative Standards, Pertinent Labs, Nausea/Vomiting/Diarrhea Desired Outcome: Consume adequate nutrition orally Clinical Nutrition will continue to follow. For questions about patient's nutritional care please contact pager [phone] on weekdays 07:30-16:00 or [phone] on weekends/holidays. * Spencer Ruth M.B.B.S. - 03/04/2024 3:57 PM CDT GASTROENTEROLOGY & HEPATOBILIARY CONSULT Date/Time: 03/04/2024 3:57 PM CDT Patient Name: Luis Tabares : 1980 CONSULT Evaluation of: biliary obstruction Referring Provider: Denice Guerrero M.D. ASSESSMENT AND PLAN Very pleasant 43-year-old gentleman with metastatic rectal cancer admitted with elevated liver tests since earlier this month Briefly, after initial diagnosis in 2018, he has had neoadjuvant and adjuvant chemotherapy as well as proctectomy and coloanal anastomosis. Most recently, he was started on irinotecan plus panitumumab in September 2023 with documented disease response as of January 10. In January 2024, patient took [employer] for an international trip, and was seen in follow up in early February 2024. Labs at that time were notable for jaundice total bilirubin of 2.9, an MRI was obtained which noted interval increase in liver lesions and left-sided biliary dilation. Of note, he had had an MRCP 83 which showed right-sided biliary dilation due to hilar compression for metastases, but these had not been intervened on. Patient has no symptoms of ascending cholangitis, but has had itching for about 1 month. Given jaundice, chemotherapy has been paused. He was scheduled for outpatient ERCP, but there is nodocumentation about the rationale for the same, patient was not informed nor was discussion had with endoscopic providers. Therefore this was canceled which was understandably frustrating for the patient. Review of outside MRI suggests large infiltrative hilar mass causing intrahepatic biliary dilation RECOMMENDATIONS 1. ERCP for palliation of jaundice with intention to give him the ability to resume chemotherapy. We will try to arrange this for tomorrow 2. No indication for antibiotics at present This patient was seen with Dr. Ellison, please see their note for full details. Thank you for involving us in the care of this patient. Cecilia Crowell. 03/04/2024 ADDENDUM 03/05/2024 Reviewed images with the advanced endoscopist, Dr. Brennan. There is significant risk of infecting the right-sided large ablation defect with an ERCP. Per Oncology (Dr. Alegria and Dr. Neff), presence of jaundice represents a significant barrier for patient proceeding with current chemotherapy regimen. They would really want some form of attempted drainage either ERCP or percutaneous. Discussed all this with the patient, and he understands the risk of infection and subsequent potential need for percutaneous tube. He wants to proceed with ERCP given that it gives him a chance to improve jaundice and thus restarting chemo, without needing a percutaneous tube. If he does develop infectious complications, he understands and is willing to proceed with percutaneous drainage as appropriate. Cecilia Crowell. * Filemon Ellison Jr., M.D., M.B.A. - 03/04/2024 9:09 AM CDTAssociated Order(s): IP CONSULT TO HEPATOLOGY Images from the original note were not included. GASTROENTEROLOGY & HEPATOBILIARY CONSULT Date/Time: 03/04/2024 10:08 AM CDT Patient Name: Luis Tabares : 1980 CONSULT Evaluation of: Luis Tabares Referring Provider: Denice Guerrero M.D. HISTORY OF PRESENT ILLNESS Mr. Luis Tabares is a 43 y.o. male with metastatic rectal adenocarcinoma--with current chemotherapy on hold since January 2024--who presented with worsening abdominal pain, vomiting and malaise, and evidence of elevated hepatobiliary biochemistries with imaging showing progression of metastatic disease. We are being consulted for evaluation of ERCP in the setting of new intrahepatic biliary duct dilatation in the left hepatic lobe. Brief summary Patient's adenocarcinoma was diagnosed in 2017 and has had multiple cancer directed therapies including radiation/ neoadjuvant and adjuvant chemotherapy following proctectomy with coloanal anastomosis. He has had variable clinical (thrombocytopenia) and radiographic responses throughout the years with different chemotherapy agents. Notably, beginning around August 2023, laboratory showed elevated hepatic biochemistries AST 111, ALT 259, alk phosphatase 285, total bilirubin 0.7. Right upper quadrant ultrasound within normal limits, PET-CT showing metastatic hepatic lesions. In September of 2023 he underwent MRI with MRCP showing interval increase in hepatic lesions in addition to dilatation of right-sided intrahepatic bile ducts presumed external compression from metastatic lesions at the hepatic hilum. He was started on irinotecan plus panitumumab 09/29/2023 with some documented improvement in symptoms. Follow up imaging in December 24, 2023-with PET-CT showing Overall marked response of the FDG avid hepatic and eduar metastatic lesions. No new metastatic foci. Interval decrease in the number of metastatic pulmonary nodules. Laboratory data at that time showed: total bilirubin 0.4, AST 72 , ALT 169 Alk phosphatase 573 He continued with outpatient ONC follow up. Around January-Chemotherapy was put on hold as the patient was traveling. and had evidence of elevated liver enzymes. Despite this, patient continued with abdominal pain and vomiting in addition to diffuse itching. Patient had a outside abdominal MRI on 02/26/2024. Patient was scheduled for ERCP here in [facility] on his way up procedure was canceled. He was admitted to palliative medicine team for further management. Initial Diagnotic studies: Pancytopenia, with no electrolyte derangements. Notable increase in hepatobiliary biochemistries including total bilirubin 3.6-->2.9 AST 203 --->167 ALT 272---->227 Alk phosphatase 883--->783 Notable imaging: CT abdomen and pelvis with IV contrast compared to outside abdominal MRI 02/26/[address] 12/24/2023 Progressive pulmonary, hepatic, and lymphatic metastatic disease-at least 6- hepatic lesions increased in size and/or number. Large known post ablation defect involving the posterior right hepatic lobe, similar to prior imaging. New Mild intrahepatic biliary ductal dilatation in the left hepatic lobe. Intra- abdominal ascites-with stranding and nodularity involving the peritoneum/mesentery RUQ ultrasound Multiple tiny mobile stones; without evidence of pericholecystic fluid or wall thickening, or intrahepatic/common duct dilatation. Negative Sonographic Martinez's sign REVIEW OF SYSTEMS Negative except per HPI. PHYSICAL EXAM Vitals: BP 119/75 (BP Location: Left arm;Upper, Patient Position: Lying) Pulse (!) 116 Temp 36.5 ??C (Oral) Resp 14 Wt 78.2 kg SpO2 97% BMI 24.32 kg/m?? PERTINENT DIAGNOSTIC STUDIES LABS Recent Labs 03/04/24 0716 03/03/24 1028 WBC 3.0 L 3.7 HGB 11.3 L 12.6 L PLT 72 L 74 L INR -- 1.3 NA 136 138 CL 103 104 BUN 5 L 7 L CREATININE 0.57 L 0.50 L CALCIUM 8.4 L 8.9 ALBUMIN 3.0 L 3.5 BILITOT 2.9 H 3.6 H AST 167 H 203 H ALT 227 H 272 H ALKPHOS 783 H 883 H ASSESSMENT AND PLAN 43-year-old male with a history of metastatic rectal adenocarcinoma initially diagnosed 2018 presents with worsening abdominal pain, vomiting, and malaise. His ongoing symptoms are accompanied by elevated hepatobiliary biochemistries and left-sided intrahepatic biliary duct dilatation in addition to metastatic disease progression. We are consulted for evaluation/consideration of ERCP given his clinical presentation. In considering an ERCP for diagnostic/potentially therapeutic intervention of the intrahepatic biliary duct dilatation findings, a thorough risk versus benefit assessment should further be discussed.ERCP is associated with significant risks such as pancreatitis, infections, perforation, and bleeding. These risks are particularly concerning in a patient with metastatic disease, compromised liver function, pancytopenia, and large hepatic lesion with potential risks for seeding. On the other hand--the MRI obtained 02/25 shows a large infiltrative mass at the liver hilum that is probably contributing to the obstruction causing the dilatation and laboratory findings. We will schedule the patientfor an ERCP tomorrow 03/05/2024 in anticipation for potential intervention--however we will need to discuss with our proceduralist. Please keep the patient NPO at midnight. 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 Order ERCP for tomorrow 03/05/2024 A. NPO at midnight 2. Consider cholestyramine 4g for cholestatic pruritus 3. Continue trending hepatic panel This patient was staffed with SPENCER Tay with the recommendations discussed withthe primary team. Thank you for involving us in the care of this patient. We will continue to follow along. Please page the GI Hepatobiliary consult pager at [phone] with any questions or concerns. Electronically signed by: Filemon Ellison Jr., M.D., M.B.A. 03/04/24 10:08 AM CDT documented in this encounter Nursing Notes * Jed Pabon R.N. - 03/05/2024 3:33 PM CDT Shift Goals: Clinical Goals for the Shift: Adequate pain control and VSS during the shift Identify possible barriers to meeting goals/advancing plan of care: None End of Shift Summary: Patient discharged home self care at 1533 with spouse providing transportation home. Patient's vital signs stable with known consistent tachycardia in the 110's. Patient verbalized adequate pain and nausea control and took PRN Dilaudid prior to DC to help with the ride home. Patient's AVS, medications, and DC paperwork were reviewed with the patient and all questions were answered prior to DC. Patient's IVAD was de accessed and heparin locked prior to discharge. Patient took all personal belongings with at the time of discharge. Problem: PAIN - ADULT Goal: PT VERBALIZES/DEMONSTRATES ADEQUATE COMFORT LEVEL OR BASELINE Outcome: Adequate for Discharge Problem: KNOWLEDGE DEFICIT Goal: Patient/family/caregiver demonstrates understanding of disease process, treatment plan, medications, and discharge instructions Outcome: Adequate for Discharge Problem: INFECTION - ADULT Goal: Absence of infection during hospitalization Outcome: Adequate for Discharge Problem: SKIN/TISSUE INTEGRITY Goal: Skin/Tissue integrity maintained or improved Outcome: Adequate for Discharge Goal: Oral and Nasal mucous membranes remain intact Outcome: Adequate for Discharge Problem: SAFETY ADULT Goal: Maintain a safe environment Outcome: Adequate for Discharge Problem: DISCHARGE PLANNING Goal: Patient discharge needs identified Outcome: Adequate for Discharge Problem: SAFETY ADULT - RISK FOR FALL AND OR FALL INJURY Goal: Patient remains free from fall/fall injury Outcome: Adequate for Discharge * Jorge Plasencia R.N. - 03/05/2024 5:11 AM CDT Shift Goals: Clinical Goals for the Shift: pain control Identify possible barriers to meeting goals/advancing plan of care: none Nursing concerns, including vital sign trends: elevated HR Reason for concern: HR not within normal limits, Pt has been sustaining in 120s for few days. Provider/service team informed: yes Pain: long acting pain medication with intermittent use of PRN dilaudid (PO and IV) Fall prevention, safe patient handling, mobility: independent The patient is not within arms reach (WAR) when in the restroom or on the commode. Pressure Injury Prevention: none, patient turns independently Angel Score and other risk factors for pressure injury development include: Angel Scale Score: 20, with pertinent subscales of: Moisture: 4, Activity: 4, Nutrition: 2, Mobility: 4, and Friction and Shear: 3. Patient is not incontinent. The patient does not have concerns for additional moisture. LEAF: The patient does not have a [place] patient turning sensor in place. Considerations for LEAF: Angel score ?18 for 24 consecutive hours and incontinence documented in Flowsheet rows at any time AND/OR Pressure injury present, excluding mucous membrane and stage 1. Problem: PAIN - ADULT Goal: PT VERBALIZES/DEMONSTRATES ADEQUATE COMFORT LEVEL OR BASELINE Outcome: Progressing Problem: SKIN/TISSUE INTEGRITY Goal: Skin/Tissue integrity maintained or improved Outcome: Progressing Problem: SAFETY ADULT Goal: Maintain a safe environment Outcome: Progressing * Andre White R.N. - 03/04/2024 5:26 AM CDT Shift Goals: Clinical Goals for the Shift: tolerable pain Identify possible barriers to meeting goals/advancing plan of care: na Pain: Pain has been tolerable. Patient did complain of pain 7/10 in the middle of the night. PRN Dilaudid was effective in bringing pain back down to a tolerable level. Ineffective non-pharmacological interventions: Repositioning Pressure Injury Prevention: Patient is up independently in the room and is able to turn himself independently as well. Angel Score and other risk factors for pressure injury development include: Angel Scale Score: 22, with pertinent subscales of: Moisture: 4, Activity: 4, Nutrition: 3, Mobility: 4, and Friction and Shear: 3. Patient is not incontinent. The patient does not have concerns for additional moisture. LEAF: The patient does not have a [place] patient turning sensor in place. Considerations for LEAF: Angel score ?18 for 24 consecutive hours and incontinence documented in Flowsheet rows at any time AND/OR Pressure injury present, excluding mucous membrane and stage 1. Diet tolerance or GI concerns: Patient has been NPO since midnight. Problem: PAIN - ADULT Goal: PT VERBALIZES/DEMONSTRATES ADEQUATE COMFORT LEVEL OR BASELINE Outcome: Progressing Problem: KNOWLEDGE DEFICIT Goal: Patient/family/caregiver demonstrates understanding of disease process, treatment plan, medications, and discharge instructions Outcome: Progressing Problem: INFECTION - ADULT Goal: Absence of infection during hospitalization Outcome: Progressing Problem: SKIN/TISSUE INTEGRITY Goal: Skin/Tissue integrity maintained or improved Outcome: Progressing Goal: Oral and Nasal mucous membranes remain intact Outcome: Progressing Problem: SAFETY ADULT Goal: Maintain a safe environment Outcome: Progressing documented in this encounter ED Notes * Daniela Brownlee P.A.-C., M.S. - 03/03/2024 1:17 PM CDT SUBJECTIVE CHIEF COMPLAINT/REASON FOR VISIT Abdominal Pain and Vomiting HISTORY OF PRESENT ILLNESS Luis Tabares is a 43 y.o. male who presents to the ED for evaluation of abdominal pain. 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 HENT: Head: Normocephalic and atraumatic. Mouth/Throat: Oropharynx is clear and moist. Eyes: Conjunctivae are normal. Mild scleral icterus Neck: Neck supple. Cardiovascular: Normal rate, regular rhythm and normal heart sounds. Pulmonary/Chest: Effort normal and breath sounds normal. There is normal air entry. Abdominal: Soft. exhibits distension (mild).There is abdominal tenderness. No CVA tenderness Musculoskeletal: General: Normal range of motion. Cervical back: Normal range of motion and neck supple. Neurological: Alert and oriented to person, place, and time. Skin: Skin is warm and dry. No jaundice. Psychiatric: He has a normal mood and affect. ASSESSMENT/PLAN Assessment and Plan This is a 43-year-old male with a past medical history notable for metastatic rectal cancer who is status post rectal resection. Since June of this year, he was pad progressive worsening of his symptoms. He was scheduled today for an outpatient ERCP in the setting of progressively elevated total and direct bilirubin and LFTs and concern for biliary obstruction. In route to [place], they were contacted by phone by GI who canceled the procedure. Per patient and his , GI stated that they did not see the indication for his ERCP and that the patient had not yet established care with [facility]. On blood work from February 23, lab tests indicate a total bilirubin of 2.9 mg, AST of 183, ALT of 293, and alk-phos of 718. These were rechecked on March 01 and the patient's reports that the total bilirubin had increased since February 24 and it was for this reason that he was scheduled for an ERCP. He reports significantly decreased appetite, progressively worsening nausea and vomiting that has been difficult to control at home, and worsening abdominal pain. On examination, he has mild scleral icterus, but does not appear frankly jaundiced to me. He was inno acute distress. He is tachycardic here in the emergency department and on review of his chart, this does appear to be baseline for him. He and his also report that he has tachycardia at his baseline. He has diffuse abdominal tenderness on palpation Vargas without rebound or guarding. It was unfortunate that his outpatient ERCP was canceled this morning, as I do wonder if you would not benefit from this procedure. Will plan to repeat laboratory studies. Will plan to give IV analgesic medications and antiemetics as indicated. See ED course for further medical decision making, clinicalcourse here in the ED, and disposition. PROBLEMS ADDRESSED THIS VISIT #Elevated bilirubin #Elevated LFTs #Metastatic rectal cancer #Tachycardia #Ascites #Nausea and vomiting #Abdominal pain. I reviewed the following external records: office records, prior outpatient radiology tests, primary care records and prior outpatient labs. ED Course as of 03/03/241735Mar 03, 2024 1057 Creatinine(!): 0.50 1057 Potassium, P: 4.1 1057 Sodium, P: 138 1057 Prothrombin Time (PT)(!): Prothrombin Time, P 13.8(!) INR 1.3 1057 Lymphocytes(!): 0.40 1057 Hemoglobin(!): 12.6 1057 ECG 12 Lead I personally reviewed this ECG. Sinus tachycardia with a ventricular rate of 113 beats per minute. Slight ST elevation in the inferior leads, previously present on prior ECGs 1116 Hepatic Function Panel(!): Bilirubin, Total, S 3.6(!) Bilirubin, Direct, S 2.7(!) Aspartate Aminotransferase (AST), S 203(!) Alanine Aminotransferase (ALT), S 272(!) Alkaline Phosphatase, S 883(!) Albumin, S 3.5 Protein, Total, S 5.3(!) 1122 Leukocytes: 3.[address] Abdomen Pelvis with IV Contrast I personally reviewed the CT. I do appreciate intra-abdominal ascites. Per radiology impression: IMPRESSION: 1. Findings suggestive of progressive metastatic [...] described in the body of the report. 1422 US Gallbladder and or Biliary Ducts Radiology impression: IMPRESSION: 1. Multiple tiny, mobile stones without additional findings concerning for acute cholecystitis. 2. Ascites and hepatic lesions were better evaluated on comparison CT. 1530 I discussed disposition for this patient with the MOD in the setting of his elevated heart rate. Given the persistent chronic tachycardia, would likely be reasonable to admit to a medicine bed, but does request a repeat ECG. He would recommend admission to either Palliative Care or Oncology. 1600 Palliative Care will kindly accept the patient to their service Final Diagnoses: as of 03/03/24 1736 Abdominal Pain Nausea And Vomiting Ascites Malignant Neoplasm Of Rectum (HCC) Elevated Liver Function Test Elevated Bilirubin My ECG interpretation is documented in ED Course. My CT Scan interpretation is documented in ED Course. I discussed the management of the patient with: Hospitalist; and Palliative Care. Care Handoff Row Name 03/03/24 1608 Care Handoff Type of Handoff Admission handoff Daniela Brownlee P.A.-C., M.S. 03/03/24 1736 * Tasia Jimenez R.N. - 03/03/2024 9:37 AM CDT Patient presents to ED with abdominal pain, diarrhea, and vomiting for roughly 6 months. Patient has stage 4 colorectal cancer with known mets to liver, lungs, and lymph nodes in abdomen. Patient wassupposed to have ERCP today but provider called patient and stated they didn't think it was needed. Tasia Jimenez R.N. 03/03/24 0939 documented in this encounter Miscellaneous Notes * ACP (Advance Care Planning) - Ana Palm APRN, C.N.P. - 03/03/2024 11:50 PM CDT Advance Care Planning Reason for Conversation This patient is a 43 y.o. year old male that presents for hospitalization for metastatic rectal cancer with progression of disease and elevated LFT's. 1. Patient has understanding of conditions: yes 2. Patient understands treatment options: yes 3. Patient has potential benefits and risks of proposed treatments/interventions: yes. Alternative Decision Maker: The patient, Luis Tabares, expresses the following preference: , Dolores Tabares Optional Expression of Values/Preferences for Specific Life-Prolonging Treatments: The patient, Luis Tabares, indicates the following preference: Attempt CPR, this requires full medical treatment including mechanical ventilation Others Present: The following person/people were also present during the discussion: None Other Comments: We were unable to discuss goals of care in detail, but Mr. Tabares made it clear that his , Dolores, would be his decision maker. He also shares that he is tired, but his son, Krishan (who is currently 7) is his motivation for continuing to keep going and be aggressive with his cares, as he wants to be here for him for as long as he can. * Hospital Course - Denice Guerrero M.D. - 03/03/2024 11:39 PM CDT Mr. Luis Tabares is a 43 year old male from [place], [place] who presented to the ED on 03/03/24 with malaise, abdominal pain, nausea, and vomiting after being told that he did not need a scheduled ERCP(which was to be done today). His medical history is significant for metastatic rectal cancer, initially diagnosed in April 2018 with locally advanced rectal cancer treated with 28 fractions of radiation with capecitabine followedby laparoscopic proctectomy with colo-anal anastomosis then followed by adjuvant FLOX for 4 months.He then had metastatic recurrence in the right lung and multiple wedge excisions in March of 2020. Hestarted irinotecan plus panitumumab with a significant response. In July of 2020, he had a mediastinal lymphadenectomy (involvement of at least 3 nodes), radiation completed from August to September 2020 followed by irinotecan and panitumab through January 2021. Unfortunately, in April of 2021 he had metastatic recurrence in a right sided 5th rib, left upper lobe and liver, managed with radiation and then irinotecan +bevacizumab 06/2021-12/2021 with stable liver disease, ablation of liver lesions in 02/2022, third line KIM initiated in 11/2022 and bevacizumab added in May. He experienced thromb ocytopenia. In June 2023, he transitioned to 5 FU alone (with missed doses due to thrombocytopenia). In 08/2023, he had a celiac plexus block, which was not overly helpful. As of 09/2023, he has been on irinotecan plus panitumumab every 2 weeks (last infusion 12/2023). This has been on hold due to travel (went to [place] with his dad for a vacation) and ongoing worsening LFT's. He currently follows with Dr. Alegria (previously with Dr. Fishman prior to his assisted). He was last evaluated with Dr. Alegria 12/24/2023 and plans at that time were for repeat imaging in 3 months. On 03/03, on his way to his scheduled ERCP, he received a phone call from the proceduralist and the procedure was canceled, as it was reportedly not necessary. He presented to the ED at [facility] and ultimately, his labs continue to show worsening LFT's (total bili of 3.6 (up from 0.9 in 12/2023), alk phos of 883, ALT of 272, AST of 203 and albumin of 3.5, with lipase of 19). He has pancytopenia, withplatelets of 74 and hemoglobin of 12.6. CT imaging of his abd/pelvis was obtained that revealed continued progression of disease in his lungs, liver and lymph. He has ascites, with concern for peritoneal carcinomatosis. There is also increased bilary ductal dilatation, particularly in the left hepatic lobe, with concern for compression from adenopathy. He is being admitted to the Inpatient Palliative Care Service for ongoing symptom and medical management. Due to findings of ascites on abdominal imaging and increasing abdominal distention with discomfort, Mr. Tabares underwent paracentesis the morning of 03/04. Approximately 800 cc was removed (248 totalnucleated cells 4% neutrophils, BF albumin 0.5, SAAG 2.5, BF protein 0.5). Gastroenterology was consulted and recommended ERCP for palliative si he can receive more cancer directed therapy. Initially to have this on next day 03/05 but not able to get into the schedule. He remained NPO standby but unfortunate was snot able to have the procedure. GI talked to him in the roomand reccommended to be discharge and come back on 03/08 and have ERCP outpatient. His symptoms were better managed and he decided to go home and come back on Friday for the procedure. He and his were reassured that they could call the Palliative number in case of questions or worsen of symptomsday or night. He was discharged home and ERCP scheduled for 03/08. documented in this encounter Plan of Treatment Upcoming Encounters Date Type Department Care Team (Latest Contact Info) Description 03/18/2024 9:15 AM CDT Appointment Department of Radiology, [facility], in [address] [phone] Zeke Downey M.D. [address] [place] [phone] 03/23/2024 7:30 AM CDT Clinical Communication Virtual Review in [address] [phone] 03/24/2024 11:00 AM CDT Appointment Department of Radiology, [facility], in [address] [phone] Ned Alegria M.D. [address] [place] [phone] 03/24/2024 12:20 PM CDT Lab Department of Infusion Therapy in [address] [phone] Ned Alegria M.D. [address] [place] [phone] 03/24/2024 1:00 PM CDT Ancillary Procedure Department of Cardiovascular Medicine in [place], [place] [address] [place] [phone] Zeke Downey M.D. [address] [place] [phone] 03/24/2024 3:30 PM CDT Office Visit Department of Oncology in [place], [place] [address] [place] [phone] Ned Alegria M.D. [address] [place] [phone] 04/14/2024 8:00 AM CDT Clinical Communication Virtual Review in [place], [place] [address] [place] [phone] 04/19/2024 10:30 AM CDT Office Visit Department of Palliative Care in [address] [phone] Patti Rush B.M.B.S., B.M.B.Ch. [address] [place] [phone] 05/03/2024 9:30 AM CDT Appointment Division of Gastroenterology in [address] [phone] Corrina Jaime M.D. [address] [place] [phone] Drake Brennan M.D. [address] [place] [phone] Pending Results Name Type Priority Associated Diagnoses Date /Time Fungal Culture, Routine Microbiology Timed Abdominal Pain Nausea And Vomiting Ascites Malignant Neoplasm Of Rectum (HCC) Elevated Liver Function Test Elevated Bilirubin 03/04/2024 10:48 AM CDT documented as of this encounter Goals Goal Patient Goal Type Associated Problems Recent Progress Patient-Stated? Author Your pain? 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 Note: 05/24/2021: Pain algorithm completed. [facility] 05/24/2021: Followup 06/07 via portal per patient [...] Procedure Name Priority Date/Time Associated Diagnosis Comments HEPATIC FUNCTION PANEL, S Routine 03/05/2024 8:09 AM CDT MAGNESIUM, S Routine 03/05/2024 8:09 AM CDT BASIC [...] (HCC) Elevated Liver Function Test Elevated Bilirubin CBC WITH DIFFERENTIAL, B Routine 03/04/2024 7:16 AM CDT MAGNESIUM, S Routine 03/04/2024 7:16 AM CDT COMPREHENSIVE METABOLIC [...] CDT ECG STAT 03/03/2024 10:31 AM CDT HEPATIC FUNCTION PANEL, S STAT 03/03/2024 10:28 AM CDT PROTHROMBIN TIME (PT), P STAT 03/03/2024 10:28 AM CDT CBC WITH DIFFERENTIAL, B STAT 03/03/2024 10:28 AM CDT LIPASE, S/P STAT 03/03/2024 10:28 AM CDT LACTATE, B/P STAT 03/03/2024 10:28 AM CDT BASIC METABOLIC PANEL, S/P STAT 03/03/2024 10:28 AM CDT documented in this encounter Results * (ABNORMAL) Hepatic Function Panel (03/05/2024 8:09 AM CDT) Bilirubin, Total, S 3.2(H) 0.0 - 1.2 [...] CDT Viraj Mesa M.D. LAB BLOOD ADD-ON [address] [address], [facility] [place] [address] * (ABNORMAL) Basic Metabolic Panel (03/05/2024 8:09 AM CDT) Potassium, S 4.0 3.6 - [...] M.D. LAB BLOOD ADD-ON Performing Organization Address City/[facility]/ZIP Co de Phone Number [facility] [address] [place], [place] [phone] [place] [address] [place] [address] * Magnesium (03/05/2024 8:09 AM CDT) Pathologist [facility] Magnesium, S 2.1 1.7 - 2.3 mg/dL 03/05/2024 9:04 AM CDT DTL Blood (Blood, Venous) 03/05/2024 8:09 AM CDT 03/05/2024 8:41 AM CDT Viraj Mesa M.D. LAB BLOOD ADD-ON Performing Organization Address City/[facility]/ZIP Co de Phone Number [facility] [address] [place], [place] [phone] [place] [address] [place] [address] * (ABNORMAL) CBC with Differential, Blood (03/05/2024 8:08 AM CDT) Hemoglobin 11.2(L) 13.2 - 16.6 g/dL 03/05/2024 [...] CDT Viraj Mesa M.D. LAB BLOOD ADD-ON [facility] [address] [place] [address], [facility] DTL [facility] [address] [place] [address] DHPM [facility] [address] [place] [address] * Interpretation of Outside MR Abdomen and [...] are unremarkable. Multiple lung nodules. Procedure Note Bertah Bravo M.D. - 03/04/2024 EXAM: INTERPRETATION OF [...] Progression of liver metastases. Viraj Mesa M.D. [facility] MRI PROCEDURES * US Paracentesis with Imaging [...] clinical findings. All other fluids refer to www.[employer].com for further interpretive information. This test has been modified from the filter press operator's instructions. Its performance characteristics were determined by [facility] in a manner consistent with CLIA requirements. This test has not been cleared or approved by the U.S. Food and Drug Administration. Fluid Type, Protein, Total Fluid, Peritoneal Fluid 03/04/2024 11:08 AM CDT DTL Fluid (Peritoneal Fluid) 03/04/2024 10:48 AM CDT Viraj Mesa M.D. LAB BODY FLUIDS AND STOOLS ORDERABLES [facility] [address] [place] [address], [facility] [address] [place] [address] * Cell Count and Differential, Body Fluid [...] This test has been modified from the filter press operator's instructions. Its performance characteristics were determined by [facility] in a manner consistent with CLIA requirements. This test has not been cleared or approved by the U.S. Food and Drug Administration. Neutrophils 4 % 03/04/2024 12:08 PM CDT DHPM Comment: ----REFERENCE VALUE---- Synovial: <25% Peritoneal: <25% [...] M.D. LAB BODY FLUIDS AND STOOLS ORDERABLES [facility] [address] [place] [address], [facility] [address] [place] [address] * Fungal Smear (03/04/2024 10:48 AM CDT) Fungal Smear Negative. 03/04/2024 8:48 PM CDT DTL Fluid (Peritoneal Fluid) 03/04/2024 10:48 AM CDT Narrative [facility] - 03/04/2024 8:48 PM CDT Bacterial Culture: Received Bactec aerobic and Bactec anaerobic bottles Viraj Mesa M.D. LAB MICROBIOLOGY - G ENERAL ORDERABLES Performing Organization Address City/[facility] Co de Phone Number [facility] [address] [place] [address], [facility] [address] [place] [address] * Albumin, Body Fluid (03/04/2024 10:48 AM [...] process. ?? All other fluids refer to www.[employer].com for further interpretive information. This test has been modified from the filter press operator's instructions. Its performance characteristics were determined by [facility] in a manner consistent with CLIA requirements. This test has not been cleared or approved by the U.S. Food and Drug Administration. Fluid Type, Albumin Fluid, Peritoneal Fluid 03/04/2024 11:08 AM CDT DTL Fluid (Peritoneal Fluid) 03/04/2024 10:48 AM CDT Viraj Mesa M.D. LAB BODY FLUIDS AND STOOLS ORDERABLES [facility] [address] [place] [address], [facility] [address] [place] [address] * Gram Stain (03/04/2024 10:48 AM CDT) Gram Stain No organisms seen. White blood cells present. 03/04/2024 3:33 PM CDT DTL Fluid (Peritoneal Fluid) 03/04/2024 10:48 AM CDT Narrative [facility] - 03/04/2024 3:33 PM CDT Bacterial Culture: Received Bactec aerobic and Bactec anaerobic bottles Viraj Mesa M.D. LAB MICROBIOLOGY - G ENERAL ORDERABLES Performing Organization Address City/[facility]/ZIP Co de Phone Number [facility] [address] [place] [address], [facility] [address] [place] [address] * Bacterial Culture, Aerobic + Susceptibility (03/04/2024 10:48 AM CDT) Bacterial Culture, Aerobic + Susc No growth after 5 days of incubation. 03/09/2024 8:29 AM CDT DTL Fluid (Peritoneal Fluid) 03/04/2024 10:48 AM CDT Narrative [facility] - 03/09/2024 8:29 AM CDT Bacterial Culture: Received Bactec aerobic and Bactec anaerobic bottles Viraj Mesa M.D. LAB MICROBIOLOGY - G ENERAL ORDERABLES [facility] [address] [place] [address], [facility] [address] [place] [address] * Magnesium (03/04/2024 7:16 AM CDT) Magnesium, S 1.7 1.7 - 2.3 mg/dL 03/04/2024 9:15 AM CDT DTL Blood (Blood, Venous) 03/04/2024 7:16 AM CDT 03/04/2024 7:49 AM CDT Ana Palm APRN, C.N.PCandido LAB BLOOD A DD-ON [facility] [address] [place] [address], [facility] [address] [place] [address] * (ABNORMAL) CBC with Differential, Blood (03/04/2024 7:16 AM CDT) Pathologist [facility] Hemoglobin 11.3(L) 13.2 - 16.6 g/dL 03/04/2024 7:46 AM CDT DTL Hematocrit 35.1(L) 38.3 - 48.6 % 03/04/2024 7:46 AM CDT DTL Erythrocytes 3.99(L) 4.35 - 5.65 x10(12)/L 03/04/2024 7:46 AM CDT DTL MCV 88.0 78.2 - 97.9 fL 03/04/2024 7:46 AM CDT DTL RBC Distrib Width 16.0(H) 11.8 - 14.5 % 03/04/2024 7:46 AM CDT DTL Platelet Count 72(L) 135 - 317 x10(9)/L 03/04/2024 7:46 AM CDT DTL Leukocytes 3.0(L) 3.4 - 9.6 x10(9)/L 03/04/2024 7:46 AM CDT DTL Neutrophils 1.78 1.56 - 6.45 x10(9)/L 03/04/2024 7:46 AM CDT DHPM Lymphocytes 0.49(L) 0.95 - 3.07 x10(9)/L 03/04/2024 7:46 AM CDT DTL Monocytes 0.59 0.26 - 0.81 x10(9)/L 03/04/2024 7:46 AM CDT DTL Eosinophils 0.12 0.03 - 0.48 x10(9)/L 03/04/2024 7:46 AM CDT DTL Basophils <0.03 0.01 - 0.08 x10(9)/L 03/04/2024 7:46 AM CDT DTL Blood (Blood, Venous) 03/04/2024 7:16 AM CDT 03/04/2024 7:34 AM CDT Ana Palm APRN, C.N.P. LAB BLOOD A DD-ON [facility] [address] [place] [address], [facility] DTL [facility] [address] [place], [place] [phone] [place] [address] [address] [place] [address] * (ABNORMAL) Comprehensive Metabolic Panel (03/04/2024 7:16 AM CDT) [facility] Potassium, S 3.8 3.6 - 5.2 mmol/L [...] Palm APRN, C.N.P. LAB BLOOD A DD-ON [facility] [address] [place] [address], [facility] [address] [place] [address] * ECG 12 Lead (03/03/2024 3:30 PM CDT) Ventricular Rate ECG/Min 123 BPM MUSE LA Interval 148 ms MUSE QRSD Interval 84 ms MUSE QT Interval 318 ms MUSE QTC Interval 455 ms MUSE P [place] 49 degrees MUSE R [place] 80 degrees MUSE T Wave [place] 28 degrees MUSE 03/03/2024 3:30 PM CDT [...] by Yvon Gatica III, CRAT Daniela Brownlee P.A.-C. M.S. ECG ORDER SHOLA MUSE NA * US Gallbladder and or [...] CT. Daniela Brownlee P.A.-C., M.S. IMG US LA OCEDURES * CT Abdomen Pelvis with IV [...] 12/08/2023. For instance an aortocaval lymph node (64) now measures 1.1 x 1 cm (previously 5 mm). There are few subtle hypodensities in the spleen, nonspecific (for instance /). There is increased free fluid in the [...] report. Daniela Brownlee P.A.-C., M.S. IMG CT LA OCEDURES * ECG 12 Lead (03/03/2024 10:31 AM CDT) Ventricular Rate ECG/Min 113 BPM MUSE LA Interval 146 ms MUSE QRSD Interval 86 ms MUSE QT Interval 342 ms MUSE QTC Interval 469 ms MUSE P [place] 40 degrees MUSE R [place] 71 degrees MUSE T Wave [place] 24 degrees MUSE 03/03/2024 10:3 1 AM CDT 03/03/2024 10:37 AM CDT Impressions MUSE - 03/03/2024 10:37 AM CDT Sinus tachycardia Slight ST elevation in Inferior leads When compared with ECG of 28-Oct-2023 12:00, Slight ST elevation in Inferior leads is now present Reviewed by HAROLDO Young Narrative Procedure Note Steve Tyler M.D. - 03/03/2024 IMPRESSION: Sinus tachycardia Slight ST elevation in Inferior leads When compared with ECG of 28-Oct-2023 12:00, Slight ST elevation in Inferior leads is now present Reviewed by HAROLDO Young Daniela Brownlee P.A.-C. MCandidoS. ECG ORDER SHOLA MUSE NA * (ABNORMAL) Prothrombin Time (PT) (03/03/2024 10:28 [...] M.S. LAB BLOOD ADD-ON Performing Organization Address City/[facility]/ZIP Co de Phone Number [facility] [address] STMA [facility] [address] [place] [address] * Lipase (03/03/2024 10:28 AM CDT) Pathologist [facility] Lipase, S 19 13 - 60 U/L 03/03/2024 11:13 AM CDT DTL Blood (Blood, Venous) 03/03/2024 10:28 AM CDT 03/03/2024 10:51 AM CDT Daniela Brownlee P.A.-C. M.S. LAB BLOOD ADD-ON [facility] [address] DTL [facility] [address] [place] [address] * Lactate (03/03/2024 10:28 AM CDT) Lactate, P 1.0 0.5 - 2.2 mmol/L 03/03/2024 10:45 AM CDT STMA Blood (Blood, Venous) 03/03/2024 10:28 AM CDT 03/03/2024 10:32 AM CDT Daniela Brownlee P.A.-C., M.S. LAB BLOOD NON ADD-ON [facility] [address] [place] [address], [facility] [address] [place] [address] * (ABNORMAL) Hepatic Function Panel (03/03/2024 10:28 AM CDT) Bilirubin, Total, S 3.6(H) 0.0 - 1.2 mg/dL 03/03/2024 11:13 AM CDT DTL Bilirubin, Direct, S 2.7(H) 0.0 - 0.3 mg/dL 03/03/2024 11:13 AM CDT DTL Aspartate Aminotransferase (AST), S 203(H) 8 - 48 U/L 03/03/2024 11:13 AM CDT DTL Alanine Aminotransferase (ALT), S 272(H) 7 - 55 U/L 03/03/2024 11:13 AM CDT DTL Alkaline Phosphatase, S 883(H) 40 - 129 U/L 03/03/2024 11:13 AM CDT DTL Albumin, S 3.5 3.5 - 5.0 g/dL 03/03/2024 11:13 AM CDT DTL Protein, Total, S 5.3(L) 6.3 - 7.9 g/dL 03/03/2024 11:13 AM CDT DTL Blood (Blood, Venous) 03/03/2024 10:28 AM CDT 03/03/2024 10:51 AM CDT Daniela Brownlee P.A.-C., M.S. LAB BLOOD ADD-ON [facility] [address] [place] [address], [facility] DTL [facility] [address] [place] [address] * (ABNORMAL) CBC with Differential, Blood (03/03/2024 10:28 AM CDT) Hemoglobin 12.6(L) 13.2 - 16.6 g/dL 03/03/2024 10:35 AM CDT STMA Hematocrit 39.1 38.3 - 48.6 % 03/03/2024 10:35 AM CDT STMA Erythrocytes 4.52 4.35 - 5.65 x10(12)/L 03/03/2024 10:35 AM CDT STMA MCV 86.5 78.2 - 97.9 fL 03/03/2024 10:35 AM CDT STMA RBC Distrib Width 15.9(H) 11.8 - 14.5 % 03/03/2024 10:35 AM CDT STMA Platelet Count 74(L) 135 - 317 x10(9)/L 03/03/2024 11:20 AM CDT STMA Comment:Results confirmed by smear, no clumping or interference seen. Leukocytes 3.7 3.4 - 9.6 x10(9)/L 03/03/2024 11:20 AM CDT STMA Neutrophils 2.59 1.56 - 6.45 x10(9)/L 03/03/2024 10:35 AM CDT DHPM Lymphocytes 0.40(L) 0.95 - 3.07 x10(9)/L 03/03/2024 10:35 AM CDT STMA Monocytes 0.57 0.26 - 0.81 x10(9)/L 03/03/2024 10:35 AM CDT STMA Eosinophils 0.07 0.03 - 0.48 x10(9)/L 03/03/2024 10:35 AM CDT STMA Basophils <0.03 0.01 - 0.08 x10(9)/L 03/03/2024 10:35 AM CDT STMA Blood (Blood, Venous) 03/03/2024 10:28 AM CDT 03/03/2024 10:32 AM CDT Daniela Brownlee P.A.-C. MCandidoS. LAB BLOOD ADD-ON [facility] [address] [place] [address], [facility] STMA [facility] [address] [place] [address] DHPM [facility] [address] [place] [address] * (ABNORMAL) Basic Metabolic Panel (03/03/2024 10:28 AM CDT) Pathologist [facility] Potassium, P 4.1 3.6 - 5.2 mmol/L 03/03/2024 10:48 AM CDT STMA Sodium, P 138 135 - 145 mmol/L 03/03/2024 10:48 AM CDT STMA Chloride, P 104 98 - 107 mmol/L 03/03/2024 10:48 AM CDT STMA Bicarbonate, P 26 22 - 29 mmol/L 03/03/2024 10:48 AM CDT STMA Anion Gap, P 8 7 - 15 03/03/2024 10:48 AM CDT STMA BUN (Blood Urea Nitrogen), P 7(L) 8 - 24 mg/dL 03/03/2024 10:48 AM CDT STMA Creatinine 0.50(L) 0.74 - 1.35 mg/dL 03/03/2024 10:48 AM CDT STMA Estimated GFR (eGFR) >90 >=60 mL/min/BSA 03/03/2024 10:48 AM CDT STMA Comment: Estimated GFR calculated using the 2020 CKD_EPI creatinine equation. Calcium, Total, P 8.9 8.6 - 10.0 mg/dL 03/03/2024 10:48 AM CDT STMA Glucose, P 106 70 - 140 mg/dL 03/03/2024 10:48 AM CDT STMA Blood (Blood, Venous) 03/03/2024 10:28 AM CDT 03/03/2024 10:32 AM CDT Daniela Brownlee P.A.-C. M.S. 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) Secondary Malignant Neoplasm Liver (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) Nausea And Vomiting Pain Cancer Associated documented in this encounter Admitting Diagnoses Diagnosis Pain Cancer Associated documented in this encounter Administered Medications Inactive Administered Medications - up to 3 most recent administrations Medication Order MAR Action Action Date Dose Rate Site acetaminophen tablet 650 mg (TYLENOL) 650 mg, oral, 2 times daily PRN, mild pain or score 1-3 of 10, headaches, Starting on Fri03/04/24 at 1422 amLODIPine tablet 10 mg (NORVASC) 10 mg, oral, Every morning, First dose on Fri03/04/24 at 0900, HOLD SBP < 90 Given 03/05/2024 9:17 AM CDT 10 mg Given 03/04/2024 8:19 AM CDT 10 mg ascorbic acid (vitamin C) tablet 250 mg (VITAMIN C) 250 mg, oral, Daily, First dose on [facility] 03/04/24 at 0900 Given 03/05/2024 9:17 AM CDT 250 mg Given 03/04/2024 8:20 AM CDT 250 mg cholecalciferol capsule 125 mcg (VITAMIN D3) 125 mcg, oral, Daily, First dose on [facility] 03/04/24 at 0900, cholecalciferol (vitamin D3) orderable was interchanged for cholecalciferol (vitamin D3) tablet/capsule Given 03/05/2024 9:17 AM CDT 125 mcg Given 03/04/2024 8:19 AM CDT 125 mcg clobetasoL 0.05 % shampoo (CLODAN) topical, Daily, First dose (after last modification) on [facility] 03/04/24 at 0900 cyanocobalamin tablet 1,000 mcg (VITAMIN B12) 1,000 mcg, oral, Daily, First dose on Fri03/04/24 at 0900 Given 03/05/2024 9:17 AM CDT 1,000 mcg Given 03/04/2024 8:20 AM CDT 1,000 mcg D5W infusion 1-999 mL/hr, intravenous, As needed, Medications Incompatible with 0.9% NaCL, Starting on Fri03/05/24 at 1456, Infuse at the same rate as the piggyback until tubing clears or up to a volume of 20 mL pre and post infusion for medications incompatible with 0.9% NaCL. Use 50 mL bag then discard. dexAMETHasone tablet 4 mg (DECADRON) 4 mg, oral, Daily, First dose on Fri03/04/24 at 0900 Given 03/05/2024 9:17 AM CDT 4 mg Given 03/04/2024 8:19 AM CDT 4 mg granisetron tablet 1 mg (KYTRIL) 1 mg, oral, Every 12 hours PRN, nausea, vomiting, Starting on Fri03/03/24 at 1948, FIRST LINE Given 03/05/2024 2:06 PM CDT 1 mg Given 03/04/2024 6:34 PM CDT 1 mg heparin flush 500-1,000 Units 500-1,000 Units, intra-catheter, During hospitalization, line care, Prior to discharge, Starting on Fri03/05/24 at 1456, For 1 dose, Implanted Vascular Access Device (IVAD) Venous Non-Valved: flush 5 mL (500 units) per port/lumen following saline flush prior to discharge. Given 03/05/2024 3:16 PM CDT 500 Units Right Chest hydrocortisone 1 % cream 1 Application (CORTAID) 1 Application, topical, 2 times daily PRN, irritation, rash, Starting on Fri03/03/24 at 2006 HYDROmorphone (PF) injection 0.8 mg (DILAUDID) 0.8 mg, intravenous, Every 2 hour PRN, severe pain or score 7-10 of 10, Starting on Fri03/03/24 at 1952, Attempt to use oral first. Given 03/05/2024 3:09 AM CDT 0.8 mg Given 03/04/2024 6:44 PM CDT 0.8 mg HYDROmorphone (PF) injection 1 mg (DILAUDID) 1 mg, intravenous, Once, On Fri03/03/24 at 1058, For 1 dose Given 03/03/2024 11:35 AM CDT 1 mg HYDROmorphone (PF) injection 1 mg (DILAUDID) 1 mg, intravenous, Every 1 hour PRN, severe pain or score 7-10 of 10, Starting on Fri03/03/24 at 1120, For 3 doses Given 03/03/2024 5:35 PM CDT 1 mg HYDROmorphone tablet 4 mg (DILAUDID) 4 mg, oral, Every 4 hours PRN, moderate pain or score 4-6 of 10, severe pain or score 7-10 of 10, Starting on Fri03/03/24 at 1948, Indications: Chronic Pain/Nonacute Pain Given 03/05/2024 3:01 PM CDT 4 mg Given 03/05/2024 9:16 AM CDT 4 mg Given 03/05/2024 1:02 AM CDT 4 mg iohexoL 300 mg iodine/mL solution 1-200 mL (OMNIPAQUE) 1-200 mL, intravenous, Once in imaging, contrast, Starting on Fri03/03/24 at 1221, For 1 dose, Imaging Protocol Orders, Dose per Radiant Medication Guidelines Given 03/03/2024 12:23 PM CDT 140 mL lidocaine 10 mg/mL (1 %) injection (XYLOCAINE) As needed, Starting on Fri03/04/24 at 1057, Intra-Op Given 03/04/2024 10:57 AM CDT 10 mL Abdominal Tissue magnesium sulfate in water IVPB 2 g 2 g, intravenous, at 25 mL/hr, Administer over 120 Minutes, Once, On Fri03/04/24 at 1215, For 1 dose, Over 2 hours. New Bag 03/04/2024 12:25 PM CDT 2 g 25 mL/hr melatonin tablet 10 mg 10 mg, oral, Daily at bedtime, First dose on Fri03/03/24 at 2100 Given 03/04/2024 8:51 PM CDT 10 mg Given 03/03/2024 8:23 PM CDT 10 mg methadone tablet 2.5 mg (DOLOPHINE) 2.5 mg, oral, 2 times daily, First dose on Fri03/03/24 at 2100, Indications: Chronic Pain/Nonacute Pain Given 03/05/2024 9:16 AM CDT 2.5 mg Given 03/04/2024 8:51 PM CDT 2.5 mg Given 03/04/2024 8:18 AM CDT 2.5 mg mwlsrbdttxar-cnhw-ZI-Ca-minerals 400 mcg (folic acid) tablet 1 tablet (THERAPEUTIC-M) 1 tablet, oral, Daily, First dose on Fri03/04/24 at 0900 Given 03/05/2024 9:17 AM CDT 1 tablet Given 03/04/2024 8:18 AM CDT 1 tablet NaCl 0.9 % bolus 1,000 mL 1,000 mL, intravenous, at 1,000 mL/hr, Administer over 1 Hours, Once, On Fri03/03/24 at 1432, For 1 dose New Bag 03/03/2024 2:40 PM CDT 1,000 mL 1000 mL/hr NaCl 0.9 % bolus 1,000 mL 1,000 mL, intravenous, at 1,000 mL/hr, Administer over 1 Hours, Once, On Fri03/03/24 at 1557, For 1 dose New Bag 03/03/2024 4:31 PM CDT 1,000 mL 1000 mL/hr NaCl 0.9% infusion 1-999 mL/hr, intravenous, As needed, Between Consecutive Piggyback Medications, Starting on Fri03/05/24 at 1456, Infuse at the same rate as the piggyback until tubing clears or up to a volume of 20 mL. Select for IV medication administration when no maintenance IV available or when IV medications are not compatible with maintenance fluid. NaCl 0.9% infusion 1-999 mL/hr, intravenous, As needed, Post Medications (Hazardous/Low Fluid Volume), Starting on Fri03/05/24 at 1456, Infuse at the same rate as the medication until tubing cleared of medication, then discard. naloxone injection 0.4 mg (NARCAN) 0.4 mg, intravenous, As needed, reversal, Starting on Fri03/03/24 at 2012 OLANZapine disintegrating tablet 2.5 mg (ZyPREXA ZYDIS) 2.5 mg, oral, 3 times daily PRN, N/V, anxiety, sleep, Starting on Fri03/03/24 at 1954, SECOND LINE FOR NAUSEA When splitting ODT at bedside, handle with gloves and a pill splitter to prevent moisture contact. Given 03/05/2024 3:09 AM CDT 2.[address] tablet 40 mg (PROTONIX) 40 mg, oral, Every morning, First dose on Fri03/04/24 at 0900, Swallow whole. Do NOT crush, chew, or split tablet. Given 03/05/2024 9:17 AM CDT 40 mg Given 03/04/2024 8:19 AM CDT 40 mg potassium chloride ER tablet 20 mEq (KLORCON/K-TAB) 20 mEq, oral, 2 times daily with meals, First dose on [facility] 03/04/24 at 0800, potassium chloride orderable was interchanged for potassium chloride tablet/capsule Swallow whole. Do NOT crush, chew, or split tablet. Given 03/05/2024 9:17 AM C DT 20 mEq Given 03/04/2024 4:44 PM CDT 20 mEq Given 03/04/2024 8:18 AM CDT 20 mEq prochlorperazine injection 10 mg (COMPAZINE) 10 mg, intravenous, Once, On Fri03/03/24 at 1138, For 1 dose Given 03/03/2024 11:39 AM CDT 10 mg prochlorperazine injection 10 mg (COMPAZINE) 10 mg, intravenous, Every 6 hours PRN, nausea, vomiting, Starting on Fri03/03/24 at 1953, THIRD LINE FOR NAUSEA prochlorperazine tablet 10 mg (COMPAZINE) 10 mg, oral, Every 6 hours PRN, nausea, vomiting, Starting on Fri03/03/24 at 1953, THIRD LINE FOR NAUSEA sennosides-docusate sodium 8.6-50 mg per tablet 1 tablet (SENOKOT-S) 1 tablet, oral, 2 times daily PRN, constipation, Starting on Fri03/03/24 at 1954 sodium chloride (PF) 0.9 % injection 1-100 mL 1-100 mL, intravenous, Once, On Fri03/03/24 at 1222, For 1 dose, Imaging Protocol Orders, Dose per Radiant Medication Guidelines Given 03/03/2024 12:23 PM CDT 50 m L sodium chloride 0.9 % injection 10-20 mL 10-20 mL, intravenous, During hospitalization, line care, Prior to discharge, Starting on Fri03/05/24 at 1456, For 1 dose, Implanted Vascular Access Device (IVAD) Venous Non-Valved: Flush 10 mL per port/lumen followed by heparin flush prior to discharge. documented in this encounter Active and Recently Administered Medications Times are shown in CDT. Scheduled Medication Order 03/03/2024 03/04/2024 03/05/2024 amLODIPine tablet 10 mg (NORVASC) 10 mg, oral, Every morning, First dose on [facility] 03/04/24 at 0900, HOLD SBP < 90 0819 (Given - Provider: Spike Ramachandran R.N.) 09 (Given - Provider: Jed Pabon R.N.) ascorbic acid (vitamin C) tablet 250 mg (VITAMIN C) 250 mg, oral, Daily, First dose on [facility] 03/04/24 at 0900 0820 (Given - Provider: Spike Ramachandran R.N.) 09 (Given - Provider: Jed Pabon R.N.) cholecalciferol capsule 125 mcg (VITAMIN D3) 125 mcg, oral, Daily, First dose on [facility] 03/04/24 at 0900, cholecalciferol (vitamin D3) orderable was interchanged for cholecalciferol (vitamin D3) tablet/capsule 08 (Given - Provider: Spike Ramachandran R.N.) 09 (Given - Provider: Jed Pabon R.N.) clobetasoL 0.05 % shampoo (CLODAN) topical, Daily, First dose (after last modification) on [facility] 03/04/24 at 0900 0826 (Not Given - Provider: Spike Ramachandran R.N. - Reason: Patient/family refused) 09 (Not Given - Provider: Jed Pabon R.N. - Reason: Patient/family refused) cyanocobalamin tablet 1,000 mcg (VITAMIN B12) 1,000 mcg, oral, Daily, First dose on [facility] 03/04/24 at 0900 0820 (Given - Provider: Spike Ramachandran R.N.) 09 (Given - Provider: Jed Pabon R.N.) dexAMETHasone tablet 4 mg (DECADRON) 4 mg, oral, Daily, First dose on Fri03/04/24 at 0900 0819 (Given - Provider: Spike Ramachandran R.N.) 09 (Given - Provider: Jed Pabon R.N.) HYDROmorphone (PF) injection 1 mg (DILAUDID) (COMPLETED) 1 mg, intravenous, Once, On Fri03/03/24 at 1058, For 1 dose 1135 (Given - Provider: Tasia Jimenez R.N.) magnesium sulfate in water IVPB 2 g (COMPLETED) 2 g, intravenous, at 25 mL/hr, Administer over 120 Minutes, Once, On Fri03/04/24 at 1215, For 1 dose, Over 2 hours. 1225 (New Bag - Provider: Spike Ramachandran R.N.) melatonin tablet 10 mg 10 mg, oral, Daily at bedtime, First dose on Fri03/03/24 at 2100 2022 (Given - Provider: Andre White R.N.) 2050 (Given - Provider: Jorge Plasencia R.N.) methadone tablet 2.5 mg (DOLOPHINE) 2.5 mg, oral, 2 times daily, First dose on Fri03/03/24 at 2100, Indications: Chronic Pain/Nonacute Pain 2022 (Given - Provider: Andre White R.N.) 08 (Given - Provider: Spike Ramachandran R.N.)2050 (Given - Provider: Jorge Plasencia R.N.) 09 (Given - Provider: Jed Pabon R.N.) tvxactimasou-qlfk-PG-Ca-m inerals 400 mcg (folic acid) tablet 1 tablet (THERAPEUTIC-M) 1 tablet, oral, Daily, First dose on Fri03/04/24 at 0900 0818 (Given - Provider: Spike Ramachandran R.N.) 09 (Given - Provider: Jed Pabon R.N.) NaCl 0.9 % bolus 1,000 mL (COMPLETED) 1,000 mL, intravenous, at 1,000 mL/hr, Administer over 1 Hours, Once, On Fri03/03/24 at 1432, For 1 dose 1440 (New Bag - Provider: Tasia Jimenez R.N.)1544 (Stopped - Provider: Tasia Jimenez R.N.) NaCl 0.9 % bolus 1,000 mL (COMPLETED) 1,000 mL, intravenous, at 1,000 mL/hr, Administer over 1 Hours, Once, On Fri03/03/24 at 1557, For 1 dose 1631 (New Bag - Provider: Tasia Jimenez R.N.)1734 (Stopped - Provider: Tasia Jimenez R.N.) pantoprazole DR tablet 40 mg (PROTONIX) 40 mg, oral, Every morning, First dose on [facility] 03/04/24 at 0900, Swallow whole. Do NOT crush, chew, or split tablet. 0819 (Given - Provider: Spike Ramachandran R.N.) 0917 (Given - Provider: Jed Pabon R.N.) potassium chloride ER tablet 20 mEq (KLORCON/K-TAB) 20 mEq, oral, 2 times daily with meals, First dose on [facility] 03/04/24 at 0800, potassium chloride orderable was interchanged for potassium chloride tablet/capsule Swallow whole. Do NOT crush, chew, or split tablet. 0818 (Given - Provider: Spike Ramachandran R.N.)1644 (Given - Provider: Jed Pabon R.N.) 0917 (Given - Provider: Jed Pabon R.N.) prochlorperazine injection 10 mg (COMPAZINE) (COMPLETED) 10 mg, intravenous, Once, On Fri03/03/24 at 1138, For 1 dose 1139 (Given - Provider: Tasia Jimenez R.N.) sodium chloride (PF) 0.9 % injection 1-100 mL (COMPLETED) 1-100 mL, intravenous, Once, On Fri03/03/24 at 1222, For 1 dose, Imaging Protocol Orders, Dose per Radiant Medication Guidelines 1223 (Given - Provider: Keysha Lopez R.N.) PRN Medication Order 03/03/2024 03/04/2024 03/05/2024 acetaminophen tablet 650 mg (TYLENOL) 650 mg, oral, 2 times daily PRN, mild pain or score 1-3 of 10, headaches, Starting on Fri03/04/24 at 1422 benzonatate capsule 100 mg (TESSALON PERLES) 100 mg, oral, Every 4 hours PRN, cough, Starting on Fri03/03/24 at 1947, Swallow whole. Do NOT crush, chew or open capsule. D5W infusion 1-999 mL/hr, intravenous, As needed, Medications Incompatible with 0.9% NaCL, Starting on Fri03/05/24 at 1456, Infuse at the same rate as the piggyback until tubing clears or up to a volume of 20 mL pre and post infusion for medications incompatible with 0.9% NaCL. Use 50 mL bag then discard. diphenoxylate-atropine 2.5-0.025 mg per tablet 1 tablet (LOMOTIL) 1 tablet, oral, 4 times daily PRN, diarrhea, Starting on Fri03/03/24 at 1948 granisetron tablet 1 mg (KYTRIL) 1 mg, oral, Every 12 hours PRN, nausea, vomiting, Starting on Fri03/03/24 at 1948, FIRST LINE 1834 (Given - Provider: Spike Ramachandran R.N.) 1406 (Given - Provider: Jed Pabon R.N.) heparin flush 500-1,000 Units (COMPLETED) 500-1,000 Units, intra-catheter, During hospitalization, line care, Prior to discharge, Starting on Fri03/05/24 at 1456, For 1 dose, Implanted Vascular Access Device (IVAD) Venous Non-Valved: flush 5 mL (500 units) per port/lumen following saline flush prior to discharge. 1516 (Given - Provider: Ana Zafar R.N.) hydrocortisone 1 % cream 1 Application (CORTAID) 1 Application, topical, 2 times daily PRN, irritation, rash, Starting on Fri03/03/24 at 2006 HYDROmorphone (PF) injection 0.8 mg (DILAUDID) 0.8 mg, intravenous, Every 2 hour PRN, severe pain or score 7-10 of 10, Starting on Fri03/03/24 at 1952, Attempt to use oral first. 1844 (Given - Provider: Spike Ramachandran R.N.) 0309 (Given - Provider: Jorge Plasencia R.N.) HYDROmorphone (PF) injection 1 mg (DILAUDID) (CANCELED) 1 mg, intravenous, Every 1 hour PRN, severe pain or score 7-10 of 10, Starting on Fri03/03/24 at 1120, For 3 doses 1735 (Given - Provider: Tasia Jimenez R.N.) HYDROmorphone tablet 4 mg (DILAUDID) 4 mg, oral, Every 4 hours PRN, moderate pain or score 4-6 of 10, severe pain or score 7-10 of 10, Starting on Fri03/03/24 at 1948, Indications: Chronic Pain/Nonacute Pain 0116 (Given - Provider: Andre Whtie RCandidoNCandido)0820 (Given - Provider: Spike Ramachandran R.N.)1215 (Given - Provider: Spike Ramachandran R.N.)1644 (Given - Provider: Jed Pabon RCandidoNCandido)2051 (Given - Provider: Jorge Plasencia RAlba) 0102 (Given - Provider: Jorge Plasencia R.N.)0617 (Not Given - Provider: Jorge Palsencia R.N. - Reason: Patient/family refused)0916 (Given - Provider: Jed Pabon R.N.)1501 (Given - Provider: Jed Pabon R.N.) iohexoL 300 mg iodine/mL solution 1-200 mL (OMNIPAQUE) (COMPLETED) 1-200 mL, intravenous, Once in imaging, contrast, Starting on Fri03/03/24 at 1221, For 1 dose, Imaging Protocol Orders, Dose per Radiant Medication Guidelines 1223 (Given - Provider: Keysha Lopez RCandidoNCandido - Comment: [id number]) ipratropium-albuteroL 0.5-2.5 mg/3 mL nebulizer solution 3 mL (DUONEB) 3 mL, nebulization, Every 6 hours PRN, wheezing, shortness of breath, Starting on Fri03/03/24 at 195 lidocaine 10 mg/mL (1 %) injection (XYLOCAINE) (COMPLETED) As needed, Starting on Fri03/04/24 at 1057, Intra-Op 1057 (Given - Provider: Darrel Bazan, .B. - Comment: RLQ) loperamide capsule 2 mg (IMODIUM A-D) 2 mg, oral, 4 times daily PRN, diarrhea, Starting on Fri03/03/24 at 1949, loperamide (IMODIUM A-D) orderable was interchanged for the loperamide (IMODIUM A-D) tablet/capsule LORazepam tablet 0.5 mg (ATIVAN) 0.5 mg, oral, Every 6 hours PRN, anxiety, nausea, vomiting, Starting on Fri03/03/24 at 194 NaCl 0.9% infusion 1-999 mL/hr, intravenous, As needed, Between Consecutive Piggyback Medications, Starting on Fri03/05/24 at 1456, Infuse at the same rate as the piggyback until tubing clears or up to a volume of 20 mL. Select for IV medication administration when no maintenance IV available or when IV medications are not compatible with maintenance fluid. NaCl 0.9% infusion 1-999 mL/hr, intravenous, As needed, Post Medications (Hazardous/Low Fluid Volume), Starting on Fri03/05/24 at 1456, Infuse at the same rate as the medication until tubing cleared of medication, then discard. naloxone injection 0.4 mg (NARCAN) 0.4 mg, intravenous, As needed, reversal, Starting on Fri03/03/24 at 2011 OLANZapine disintegrating tablet 2.5 mg (ZyPREXA ZYDIS) 2.5 mg, oral, 3 times daily PRN, N/V, anxiety, sleep, Starting on Fri03/03/24 at 1954, SECOND LINE FOR NAUSEA When splitting ODT at bedside, handle with gloves and a pill splitter to prevent moisture contact. 0309 (Given - Provider: Jorge Plasencia R.N.) prochlorperazine injection 10 mg (COMPAZINE)(Linked Group 1) 10 mg, intravenous, Every 6 hours PRN, nausea, vomiting, Starting on Fri03/03/24 at 1953, THIRD LINE FOR NAUSEA prochlorperazine tablet 10 mg (COMPAZINE)(Linked Group 1) 10 mg, oral, Every 6 hours PRN, nausea, vomiting, Starting on Fri03/03/24 at 1952, THIRD LINE FOR NAUSEA sennosides-docusate sodium 8.6-50 mg per tablet 1 tablet (SENOKOT-S) 1 tablet, oral, 2 times daily PRN, constipation, Starting on Fri03/03/24 at 1953 sodium chloride 0.9 % injection 10-20 mL 10-20 mL, intravenous, During hospitalization, line care, Prior to discharge, Starting on Fri03/05/24 at 1456, For 1 dose, Implanted Vascular Access Device (IVAD) Venous Non-Valved: Flush 10 mL per port/lumen followed by heparin flush prior to discharge. Linked Groups Order Group 1: prochlorperazine tablet 10 mg (COMPAZINE)Jump to med 10 mg, oral, Every 6 hours PRN, nausea, vomiting, Starting on Fri03/03/24 at 1952, THIRD LINE FOR NAUSEA Or prochlorperazine injection 10 mg (COMPAZINE)Jump to med 10 mg, intravenous, Every 6 hours PRN, nausea, vomiting, Starting on Fri03/03/24 at 1952, THIRD LINE FOR NAUSEA documented in this encounter Additional Health Concerns Assessment Noted Time PHQ-9 Depression Total Score: 7 05/26/20 18 10:22 PM CDT documented as of this encounter Care Teams Resp Therapist Relationship Specialty Start Date End Date Elsewhere, Pcp PCP - General Internal Medicine 10/14/22 documented as of this encounter
--- OUTSIDE RECORDS SUMMARY | 2024-03-16 16:42 | XMS_ITS | Encounter Summary ---
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 [address] [place] [phone] 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 200 [place] [address] [facility] Referral ID Status Reason Start Date Expiration Date Visits Re quested Visits Authorized [id number] Closed 03/08/2024 03/08/2025 1 1 Encounter Details Date Type Department Care Team (Latest Contact Info) Description 03/08/2024 2:41 PM CDT - 03/08/2024 11:59 PM CDT Hospital Encounter Department of Radiology, [facility], in [place], [place] 200 [place] [address] Tracie Tai, CINDY, C.N.P. 200 [place] [address] Malignant Neoplasm Of Rectum (HCC); Secondary Malignant [...] Answer Date Recorded PHQ-2 Score 0 04/25/2019 [facility] - Occupational Stress [...] degree (e.g., MA, MS, Ana Lilia, MEd, STUDENT AMBASSADOR, GORDO) 02/15/2022 Sex and Gender Information [...] on 5 minutes, and rinse. Use daily Mon-Thurs. 118 mL 3 10/28/2023 cyanocobalamin (VITAMIN B12) [...] Chronic Pain/Nonacute Pain. 60 tablet 09/26/2023 03/12/2024 levoFLOXacin (LEVAQUIN) 500 mg tablet Take 1 tablet (500 mg total) by mouth daily for 14 days. 14 tablet 03/08/2024 03/15/2024 methadone (DOLOPHINE) 5 mg tabletIndications:Chron ic Pain/Nonacute Pain Take 0.5 tablets (2.5 mg total) by mouth 2 (two) times a day Indication: Chronic Pain/Nonacute Pain. 30 tablet 02/05/2024 03/12/2024 documented as of this encounter Plan of Treatment Upcoming Encounters Date Type Department Care Team (Latest Contact Info) Description 03/18/2024 9:15 AM CDT Appointment Department of Radiology, [facility], in [address] [phone] Zeke Downey M.D. [address] [place] [phone] 03/23/2024 7:30 AM CDT Clinical Communication Virtual Review in [place], [place] 200 [place] [address] 03/24/2024 11:00 AM CDT Appointment Department of Radiology, [facility], in [place], [place] [address] [place] [phone] Ned Alegria M.D. [address] [place] [phone] 03/24/2024 12:20 PM CDT Lab Department of Infusion Therapy in [place], [place] [address] [place] [phone] Ned Alegria M.D. [address] [place] [phone] 03/24/2024 1:00 PM CDT Ancillary Procedure Department of Cardiovascular Medicine in [place], [place] [address] [place] [phone] Zeke Downey M.D. [address] [place] [phone] 03/24/2024 3:30 PM CDT Office Visit Department of Oncology in [place], [place] [address] [place] [phone] Ned Alegria M.D. [address] [place] [phone] 04/14/2024 8:00 AM CDT Clinical Communication Virtual Review in [address] [phone] 04/19/2024 10:30 AM CDT Office Visit Department of Palliative Care in [place], [place] [address] [place] [phone] Patti Rush B.M.B.S., B.M.B.Ch. [address] [place] [phone] 05/03/2024 9:30 AM CDT Appointment Division of Gastroenterology in [place], [place] [address] [place] [address] Corrina Jaime M.D. [address] [place] [address] Drake Brennan M.D. [address] [place] [phone] documented as of this encounter Goals Goal Patient Goal Type Associated Problems Recent Progress Patient-Stated? Author Your pain? 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 Note: 05/24/2021: Pain algorithm completed. [facility] 05/24/2021: Followup 06/07 via [...] documented in this encounter Results * FL Fluoro Less Than 1 Hour (03/08/2024 4:35 PM CDT) Narrative ERCP LOS RST - 03/08/2024 4:35 PM CDT This exam does not require a radiologist review or interpretation. Please refer to the patient's medical record on this date for clinical details. Tracie Tai APRN, C.N.P. 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
--- OUTSIDE RECORDS SUMMARY | 2024-03-16 16:42 | XMS_ITS | Encounter Summary ---
Author Name Unknown Organization [facility] Address [address] [place] [address] Care Team Providers Care Toy Mechanic Name Role Phone Elsewhere, Pcp Primary Care Provider Unavailabl e Encounter Details Date Type Department Care Team (Late st Contact Info) Description 03/08/2024 Orders Only Division of Gastroenterology in [place], [place] [address] [place] [address] Shaila Aparicio APRN, C.N.P., D.N.P., M.S.N. [address] [place] [address] Social History Tobacco Use Types Packs/Day Years [...] PHQ-2 Score 0 04/25/2019 [facility] Questionnaire Answer Date Recorded [...] (e.g., MA, MS, Ana Lilia, MEd, SUPERVISOR PIPE FINISHING, GORDO) 02/15/2022 Sex and Gender Information Value Date Recorded Sex Assigned at Male 04/23/2018 1:23 PM CDT Gender Identity Male 04/23/2018 1:23 PM CDT Sexual Orientation Straight 04/23/2018 1: 23 PM CDT documented as of this encounter Plan of Treatment Upcoming Encounters Date Type Department Care Team (Latest Contact Info) Description 03/18/2024 9:15 AM CDT Appointment Department of Radiology, [facility], in [place], [place] 200 [place] [address] Zeke Downey M.D. 200 [place] [address] 03/23/2024 7:30 AM CDT Clinical Communication Virtual Review in [place], [place] 200 [place] [address] 03/24/2024 11:00 AM CDT Appointment Department of Radiology, [facility], in [place], [place] [address] [place] [phone] Ned Alegria M.D. [address] [place] [phone] 03/24/2024 12:20 PM CDT Lab Department of Infusion Therapy in [place], [place] [address] [place] [phone] Ned Alegria M.D. [address] [place] [phone] 03/24/2024 1:00 PM CDT Ancillary Procedure Department of Cardiovascular Medicine in [place], [place] [address] [place] [phone] Zeke Downey M.D. [address] [place] [phone] 03/24/2024 3:30 PM CDT Office Visit Department of Oncology in [address] [phone] Ned Alegria M.D. [address] [place] [phone] 04/14/2024 8:00 AM CDT Clinical Communication Virtual Review in [address] [phone] 04/19/2024 10:30 AM CDT Office Visit Department of Palliative Care in [address] [phone] Patti Rush B.MCandidoB.S., B.M.B.Ch. [address] [place] [phone] 05/03/2024 9:30 AM CDT Appointment Division of Gastroenterology in [place], [place] [address] [place] [address] Corrina Jaime M.D. [address] [place] [address] Drake Brennan M.D. [address] [place] [address] documented as of this encounter Goals Goal Patient Goal Type Associated Problems Recent Progress Patient-Stated? Author Your pain? Symptom Management 9(11/20/2022 2:41 PM GRAPHIC DESIGN TEACHER) Raisa Ferguson-Girma Bush, RRancho., O.C.N. Note: 05/24/2021: Pain algorithm completed. [facility] 05/24/2021: Followup 06/07 via portal [...] documented as of this encounter Care Teams Toy Mechanic Relationship Specialty Start Date End Date Elsewhere, Pcp PCP - General Internal Medicine 10/14/22 documented as of this encounter
--- OUTSIDE RECORDS SUMMARY | 2024-03-16 16:43 | XMS_ITS | Encounter Summary ---
Author Name Unknown Organization [facility] Address [address] [place] [address] Care Team Providers Care Regulatory Affairs Analyst Name Role Phone Elsewhere, Pcp Primary Care Provider Unavailabl e Encounter Details Date Type Department Care Team (Late st Contact Info) Description 12/24/2023 11:00 AM SHALE PLANER OPERATOR Lab Department of Infusion Therapy in [place], [place] [address] [place] [address] Noelle Reyes P.A.-C., P.A. [address] [place] [phone] Secondary Malignant Neoplasm Of Lung Laterality Unknown [...] How often do you attend chur or pentecostal services? Never 02/03/2023 Do you [...] degree (e.g., MA, MS, Ana Lilia, MEd, REVIEW SPECIALIST, GORDO) 02/15/2022 Sex and Gender Information Value Date Recorded Sex Assigned at Male 04/23/2018 1:23 PM CDT Gender Identity Male 04/23/2018 1:23 PM CDT Sexual Orientation Straight 04/23/2018 1: 23 PM CDT documented as of this encounter Plan of Treatment Upcoming Encounters Date Type Department Care Team (Latest Contact Info) Description 03/18/2024 9:15 AM CDT Appointment Department of Radiology, [facility], in [place], [place] [address] [place] [address] LuoZeke torres M.D. [address] [place] [phone] 03/23/2024 7:30 AM CDT Clinical Communication Virtual Review in [place], [place] 200 [place] [address] 03/24/2024 11:00 AM CDT Appointment Department of Radiology, [facility], in [place], [place] [address] [place] [phone] Ned Alegria M.D. [address] [place] [phone] 03/24/2024 12:20 PM CDT Lab Department of Infusion Therapy in [address] [address] Ned Alegria M.D. [address] [place] [phone] 03/24/2024 1:00 PM CDT Ancillary Procedure Department of Cardiovascular Medicine in [address] [phone] Zeke Downey M.D. [address] [place] [phone] 03/24/2024 3:30 PM CDT Office Visit Department of Oncology in [address] [phone] Nde Alegria M.D. [address] [place] [phone] 04/14/2024 8:00 AM CDT Clinical Communication Virtual Review in [address] [phone] 04/19/2024 10:30 AM CDT Office Visit Department of Palliative Care in [address] [address] Patti Rush B.M.B.S., B.M.B.Ch. [address] [place] [phone] 05/03/2024 9:30 AM CDT Appointment Division of Gastroenterology in [place], [place] [address] [place] [phone] Corrina Jaime M.D. [address] [place] [phone] Drake Brennan M.D. [address] [place] [phone] documented as of this encounter Goals Goal Patient Goal Type Associated Problems Recent Progress Patient-Stated? Author Your pain? Symptom Management 9(11/20/2022 2:41 PM SHALE PLANER OPERATOR) Raisa Ferguson-Girma Bush, RCandidoN., O.C.N. 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) BILIRUBIN DIRECT, S/P Routine 12/24/2023 11:21 AM SHALE PLANER OPERATOR Malignant Neoplasm Of Rectum (HCC) Secondary Malignant Neoplasm Colon (HCC) Secondary Malignant Neoplasm Liver (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) COMPREHENSIVE METABOLIC PANEL, S/P Routine 12/24/2023 11:21 AM SHALE PLANER OPERATOR Malignant Neoplasm Of Rectum (HCC) Secondary Malignant Neoplasm Colon (HCC) Secondary Malignant Neoplasm Liver (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) documented in this encounter Results * (ABNORMAL) Comprehensive Metabolic Panel (12/24/2023 11:21 AM SHALE PLANER OPERATOR) Potassium, S 4.2 3.6 - 5.2 mmol/L 12/24/2023 1:06 PM SHALE PLANER OPERATOR DTL Sodium, S 141 135 - 145 mmol/L 12/24/2023 1:06 PM SHALE PLANER OPERATOR DTL Chloride, S 102 98 - 107 mmol/L 12/24/2023 1:06 PM SHALE PLANER OPERATOR DTL Bicarbonate, S 26 22 - 29 mmol/L 12/24/2023 1:06 PM SHALE PLANER OPERATOR DTL Anion Gap 13 7 - 15 12/24/2023 1:06 PM SHALE PLANER OPERATOR DTL BUN (Blood Urea Nitrogen), S 6(L) 8 - 24 mg/dL 12/24/2023 1:06 PM SHALE PLANER OPERATOR DTL Creatinine 0.61(L) 0.74 - 1.35 mg/dL 12/24/2023 1:06 PM SHALE PLANER OPERATOR DTL Estimated GFR (eGFR) >90 >=60 mL/min/BS A 12/24/2023 1:06 PM SHALE PLANER OPERATOR DTL Comment: Estimated GFR calculated using the 2020 CKD_EPI creatinine equation. Calcium, Total, S 9.1 8.6 - 10.0 mg/dL 12/24/2023 1:06 PM SHALE PLANER OPERATOR DTL Glucose, S 89 70 - 140 mg/dL 12/24/2023 1:06 PM SHALE PLANER OPERATOR DTL Protein, Total, S 5.5(L) 6.3 - 7.9 g/dL 12/24/2023 1:06 PM SHALE PLANER OPERATOR DTL Albumin, S 3.7 3.5 - 5.0 g/dL 12/24/2023 1:06 PM SHALE PLANER OPERATOR DTL Aspartate Aminotransferase (AST), S 72(H) 8 - 48 U/L 12/24/2023 1:06 PM SHALE PLANER OPERATOR DTL Alkaline Phosphatase, S 573(H) 40 - 129 U/L 12/24/2023 1:06 PM SHALE PLANER OPERATOR DTL Alanine Aminotransferase (ALT), S 169(H) 7 - 55 U/L 12/24/2023 1:06 PM SHALE PLANER OPERATOR DTL Bilirubin, Total, S 0.9 0.0 - 1.2 mg/dL 12/24/2023 1:06 PM SHALE PLANER OPERATOR DTL Blood (Blood, Venous) 12/24/2023 11:21 AM SHALE PLANER OPERATOR 12/24/2023 11:56 AM SHALE PLANER OPERATOR Noelle Reyes P.A.-C., P.A. LAB BLOOD ADD-ON Performing Organization Address City/[facility] Co de Phone Number [facility] [address] [place] [address], [facility] [address] [place] [address] * (ABNORMAL) CEA (Carcinoembryonic Antigen) (12/24/2023 11:21 AM SHALE PLANER OPERATOR) Pathologist [facility] Carcinoembryonic Ag (CEA), S 11.4(H) ng/mL 12/24/2023 5:04 PM SHALE PLANER OPERATOR [facility] Comment: ----REFERENCE VALUE---- <=3.0 (Non-smokers) Some smokers may have elevated CEA, usually <5.0. ----ADDITIONAL INFORMATION---- The testing method is an immunoenzymatic assay manufactured by [employer]. and performed on the [employer] 800. ? Values obtained with different assay methods or kits may be different and cannot be used interchangeably. ? Test results cannot be interpreted as absolute evidence for the presence or absence of malignant disease. Blood (Blood, Venous) 12/24/2023 11:21 AM SHALE PLANER OPERATOR 12/24/2023 4:06 PM SHALE PLANER OPERATOR Noelle Reyes P.A.-C., P.A. LAB BLOOD ADD-ON Performing Organization Address City/[facility]/ZIP Co de Phone Number [facility] [address] [place] [address] [facility] [address] [place] [address] * (ABNORMAL) CBC with Differential, Blood (12/24/2023 11:21 AM SHALE PLANER OPERATOR) [facility] Hemoglobin 14.1 13.2 - 16.6 g/dL 12/24/2023 11:58 AM SHALE PLANER OPERATOR DTL Hematocrit 43.7 38.3 - 48.6 % 12/24/2023 11:58 AM SHALE PLANER OPERATOR DTL Erythrocytes 4.74 4.35 - 5.65 x10(12)/L 12/24/2023 11:58 AM SHALE PLANER OPERATOR DTL MCV 92.2 78.2 - 97.9 fL 12/24/2023 11:58 AM SHALE PLANER OPERATOR DTL RBC Distrib Width 17.2(H) 11.8 - 14.5 % 12/24/2023 11:58 AM SHALE PLANER OPERATOR DTL Platelet Count 103(L) 135 - 317 x10(9)/L 12/24/2023 12:40 PM SHALE PLANER OPERATOR DTL Comment:Rechecked Leukocytes 9.8(H) 3.4 - 9.6 x10(9)/L 12/24/2023 12:40 PM SHALE PLANER OPERATOR DTL Neutrophils 7.44(H) 1.56 - 6.45 x10(9)/L 12/24/2023 11:58 AM SHALE PLANER OPERATOR PM Lymphocytes 1.07 0.95 - 3.07 x10(9)/L 12/24/2023 11:58 AM SHALE PLANER OPERATOR DTL Monocytes 1.14(H) 0.26 - 0.81 x10(9)/L 12/24/2023 11:58 AM SHALE PLANER OPERATOR DTL Eosinophils 0.13 0.03 - 0.48 x10(9)/L 12/24/2023 11:58 AM SHALE PLANER OPERATOR DTL Basophils 0.05 0.01 - 0.08 x10(9)/L 12/24/2023 11:58 AM SHALE PLANER OPERATOR DTL Blood (Blood, Venous) 12/24/2023 11:21 AM SHALE PLANER OPERATOR 12/24/2023 11:43 AM SHALE PLANER OPERATOR Noelle Reyes P.A.-C., P.A. LAB BLOOD ADD-ON [facility] [address] [place] [address], [facility] DTL [facility] [address] [place], [place] [phone] [place] [address] [address] [place] [address] * (ABNORMAL) Bilirubin, Direct (12/24/2023 11:21 AM SHALE PLANER OPERATOR) Bilirubin, Direct, S 0.4(H) 0.0 - 0.3 mg/dL 12/24/2023 1:06 PM SHALE PLANER OPERATOR DTL Blood (Blood, Venous) 12/24/2023 11:21 AM SHALE PLANER OPERATOR 12/24/2023 11:56 AM SHALE PLANER OPERATOR Mere Lomeli P.A.-C. LAB BLOOD ADD-ON [facility] [address] [place] [address], [facility] [address] [place] [address] documented in this encounter Visit Diagnoses Diagnosis [...] preservative-free NaCL flush. Given 12/24/2023 11:26 AM SHALE PLANER OPERATOR 500 Units sodium chloride 0.9 % injection 10 mL 10 mL, intra-catheter, As needed, line care, Starting on Fri12/24/23 at 1114, When IVAD Accessed and in Use: Flush prior to and following infusion, between multiple consecutive infusions, and prior to blood sampling. Given 12/24/2023 11:26 AM SHALE PLANER OPERATOR 10 mL sodium chloride 0.9 % injection 20 mL 20 mL, intra-catheter, As needed, line care, Starting on Fri12/24/23 at 1114, When IVAD Accessed and in Use: Flush post blood transfusion or post blood sampling. Given 12/24/2023 11:26 AM SHALE PLANER OPERATOR 20 mL documented in this encounter Additional Health Concerns Assessment Noted Time PHQ-9 Depression Total Score: 7 05/26/20 18 10:22 PM CDT documented as of this encounter Care Teams Regulatory Affairs Analyst Relationship Specialty Start Date End Date Elsewhere, Pcp PCP - General Internal Medicine 10/14/22 documented as of this encounter
--- OUTSIDE RECORDS SUMMARY | 2024-03-16 16:43 | XMS_ITS | Encounter Summary ---
Author Name Unknown Organization [facility] Address [address] [place] [address] Care Team Providers Care Pt Escort Name Role Phone Elsewhere, Pcp Primary Care Provider Unavailabl e Reason for Visit * Reason Comments Med Refill Encounter Details Date Type Department Care Team (Late st Contact Info) Description 01/21/2024 Refill Department of Oncology in [place], [place] [address] [place] [phone] Kristi Dominique M.D. [address] [place] [phone] Med Refill Social History Tobacco Use Types [...] Answer Date Recorded PHQ-2 Score 0 04/25/2019 [facility] Occupat ional Health - Occupational Stress [...] degree (e.g., MA, MS, Ana Lilia, MEd, BUTT WELDER, GORDO) 02/15/2022 Sex and Gender Information Value Date Recorded Sex Assigned at Male 04/23/2018 1:23 PM CDT Gender Identity Male 04/23/2018 1:23 PM CDT Sexual Orientation Straight 04/23/2018 1: 23 PM CDT documented as of this encounter Miscellaneous Notes * Telephone Encounter - Dede Andrade - 01/21/2024 4:57 PM CST Nurse review: Med Refill Team is unable to forward request to provider; Patient reported NOT takingon Patient not taking. Reported on 12/23/2023 Primary Provider: ELSEWHERE, PCP Requested Prescriptions Pending Prescriptions Disp Refills omeprazole (PriLOSEC) [address] capsule [Pharmacy Med Name: OMEPRAZOLE DR 20 MG CAPSULE] 90 capsule 1 Sig: take 1 capsule by mouth every day in the morning before breakfast SETTER HAND documented in this encounter Plan of Treatment Upcoming Encounters Date Type Department Care Team (Latest Contact Info) Description 03/18/2024 9:15 AM CDT Appointment Department of Radiology, [facility], in [address] [phone] Zeke Downey M.D. [address] [place] [phone] 03/23/2024 7:30 AM CDT Clinical Communication Virtual Review in [place], [place] 200 [place] [address] 03/24/2024 11:00 AM CDT Appointment Department of Radiology, [facility], in [address] [phone] Ned Alegria M.D. [address] [place] [phone] 03/24/2024 12:20 PM CDT Lab Department of Infusion Therapy in [address] [phone] Ned Alegria M.D. [address] [place] [phone] 03/24/2024 1:00 PM CDT Ancillary Procedure Department of Cardiovascular Medicine in [address] [address] Zeke Downey M.D. [address] [place] [phone] 03/24/2024 3:30 PM CDT Office Visit Department of Oncology in [address] [address] Ned Alegria M.D. [address] [place] [phone] 04/14/2024 8:00 AM CDT Clinical Communication Virtual Review in [place], [place] 200 [place] [address] 04/19/2024 10:30 AM CDT Office Visit Department of Palliative Care in [address] [phone] Patti Rush B.M.B.S., B.M.B.Ch. [address] [place] [phone] 05/03/2024 9:30 AM CDT Appointment Division of Gastroenterology in [address] [phone] Corrina Jaime M.D. [address] [place] [phone] Drake Brennan M.D. [address] [place] [phone] documented as of this encounter Goals Goal Patient Goal Type Associated Problems Recent Progress Patient-Stated? Author Your pain? Symptom Management 9(11/20/2022 2:41 PM KISS SETTER HAND) No Phyllis-Girma Bush, R.N., O.C.N. Note: 05/24/2021: [...] documented as of this encounter Care Teams Pt Escort Relationship Specialty Start Date End Date Elsewhere, Pcp PCP - General Internal Medicine 10/14/22 documented as of this encounter
--- OUTSIDE RECORDS SUMMARY | 2024-03-16 16:43 | XMS_ITS | Encounter Summary ---
Author Name Unknown Organization [facility] Address [address] [place] [address] Care Team Providers Care Head Of Measurement & Insights Name Role Phone Elsewhere, Pcp Primary Care Provider Unavailabl e Reason for Visit * Reason Comments Med Refill Encounter Details Date Type Department Care Team (Late st Contact Info) Description 01/30/2024 Refill Department of Oncology in [place], [place] [address] [place] [phone] Kristi Dominique M.D. [address] [place] [phone] Med Refill Social History Tobacco Use Types [...] 0 04/25/2019 [facility] of Occupat ional Health - [...] degree (e.g., MA, MS, Ana Lilia, MEd, AUDIOVISUAL TECHNICIAN, GORDO) 02/15/2022 Sex and Gender Information Value Date Recorded Sex Assigned at Male 04/23/2018 1:23 PM CDT Gender Identity Male 04/23/2018 1:23 PM CDT Sexual Orientation Straight 04/23/2018 1: 23 PM CDT documented as of this encounter Plan of Treatment Upcoming Encounters Date Type Department Care Team (Latest Contact Info) Description 03/18/2024 9:15 AM CDT Appointment Department of Radiology, [facility], in [place], [place] 200 [place] [address] Zeke Downey M.D. 200 [place] [address] 03/23/2024 7:30 AM CDT Clinical Communication Virtual Review in [place], [place] 200 [place] [address] 03/24/2024 11:00 AM CDT Appointment Department of Radiology, [facility], in [place], [place] [address] [place] [phone] Ned Alegria M.D. [address] [place] [phone] 03/24/2024 12:20 PM CDT Lab Department of Infusion Therapy in [place], [place] [address] [place] [phone] Ned Alegria M.D. [address] [place] [phone] 03/24/2024 1:00 PM CDT Ancillary Procedure Department of Cardiovascular Medicine in [place], [place] [address] [place] [phone] Zeke Downey M.D. [address] [place] [phone] 03/24/2024 3:30 PM CDT Office Visit Department of Oncology in [place], [place] [address] [place] [phone] Ned Alegria M.D. [address] [place] [phone] 04/14/2024 8:00 AM CDT Clinical Communication Virtual Review in [place], [place] 200 [place] [address] 04/19/2024 10:30 AM CDT Office Visit Department of Palliative Care in [address] [phone] Patti Rush B.M.B.S., B.M.B.Ch. [address] [place] [phone] 05/03/2024 9:30 AM CDT Appointment Division of Gastroenterology in [place], [place] [address] [place] [phone] Corrina Jaime M.D. [address] [place] [phone] Drake Brennan M.D. [address] [place] [phone] documented as of this encounter Goals Goal Patient Goal Type Associated Problems Recent Progress Patient-Stated? Author Your pain? Symptom Management 9(11/20/2022 2:41 PM ICER AIR CONDITIONING) Girma Gaspar R.N., O.C.N. Note: 05/24/2021: Pain [...] documented as of this encounter Care Teams Head Of Measurement & Insights Relationship Specialty Start Date End Date Elsewhere, Pcp PCP - General Internal Medicine 10/14/22 documented as of this encounter
--- OUTSIDE RECORDS SUMMARY | 2024-03-16 16:43 | XMS_ITS | Encounter Summary ---
Author Name Unknown Organization [facility] Address [address] [place] [address] Care Team Providers Care Director Of First Impressions Name Role Phone Elsewhere, Pcp Primary Care Provider Unavailabl e Encounter Details Date Type Department Care Team (Late st Contact Info) Description 03/03/2024 Orders Only Division of Gastroenterology in [place], [place] [address] [place] [address] Shaila Aparicio APRN, C.N.P., D.N.P., M.S.N. [address] [place] [address] Social History Tobacco Use Types Packs/Day Years [...] 0 04/25/2019 [facility] Questionnaire Answer Date [...] degree (e.g., MA, MS, Ana Lilia, MEd, DRAMATIC COACH, GORDO) 02/15/2022 Sex and Gender Information Value Date Recorded Sex Assigned at Male 04/23/2018 1:23 PM CDT Gender Identity Male 04/23/2018 1:23 PM CDT Sexual Orientation Straight 04/23/2018 1: 23 PM CDT documented as of this encounter Plan of Treatment Upcoming Encounters Date Type Department Care Team (Latest Contact Info) Description 03/18/2024 9:15 AM CDT Appointment Department of Radiology, [facility], in [place], [place] 200 [place] [address] Zeke Downey M.D. 200 [place] [address] 03/23/2024 7:30 AM CDT Clinical Communication Virtual Review in [place], [place] 200 [place] [address] 03/24/2024 11:00 AM CDT Appointment Department of Radiology, [facility], in [place], [place] [address] [place] [phone] Ned Alegria M.D. [address] [place] [phone] 03/24/2024 12:20 PM CDT Lab Department of Infusion Therapy in [place], [place] [address] [place] [phone] Ned Alegria M.D. [address] [place] [phone] 03/24/2024 1:00 PM CDT Ancillary Procedure Department of Cardiovascular Medicine in [place], [place] [address] [place] [phone] Zeke Downey M.D. [address] [place] [phone] 03/24/2024 3:30 PM CDT Office Visit Department of Oncology in [address] [phone] Ned Alegria M.D. [address] [place] [phone] 04/14/2024 8:00 AM CDT Clinical Communication Virtual Review in [address] [phone] 04/19/2024 10:30 AM CDT Office Visit Department of Palliative Care in [address] [phone] Patti Rush B.MCandidoB.S., B.M.B.Ch. [address] [place] [phone] 05/03/2024 9:30 AM CDT Appointment Division of Gastroenterology in [place], [place] [address] [place] [address] Corrina Jaime M.D. [address] [place] [address] Drake Brennan M.D. [address] [place] [address] documented as of this encounter Goals Goal Patient Goal Type Associated Problems Recent Progress Patient-Stated? Author Your pain? Symptom Management 9(11/20/2022 2:41 PM MANAGER OF INVESTIGATIONS) Raisa Ferguson-Girma Bush, RRancho., O.C.N. Note: 05/24/2021: [...] documented as of this encounter Care Teams Director Of First Impressions Relationship Specialty Start Date End Date Elsewhere, Pcp PCP - General Internal Medicine 10/14/22 documented as of this encounter
--- OUTSIDE RECORDS SUMMARY | 2024-03-16 16:43 | XMS_ITS | Encounter Summary ---
Author Name Unknown Organization [facility] Address [address] [place] [address] Care Team Providers Care Software Lead Name Role Phone Elsewhere, Pcp Primary Care Provider Unavailabl e Reason for Referral * Outpatient (Routine) - Authorized Specialty Diagnoses / Procedures Referred By Contact Referred To Contact Gastroenterology and Hepatology Diagnoses Malignant Neoplasm Of Rectum (HCC) Noelle Reyes P.A.-C., P.A. [address] [place] [address] [facility] Referral ID Status Reason Start Date Expiration Date Visits Requested Visits Authorized [id number] Authorized Specialty Services Required 01/26/2024 07/27/2025 1 1 Encounter Details Date Type Department Care Team (Late st Contact Info) Description 01/26/2024 Orders Only Department of Oncology in [place], [place] [address] [place] [phone] Neolle Reyes P.A.-C., P.A. [address] [place] [address] Malignant Neoplasm Of Rectum (HCC) (Primary Dx) [...] 02/03/2023 How often do you attend [facility] or voodoo services? Never 02/03/2023 Do you [...] 04/25/2019 [facility] of Occupat ional Health - [...] (e.g., MA, MS, Ana Lilia, MEd, CORPORATE TRAFFIC MANAGER, GORDO) 02/15/2022 Sex and Gender Information Value Date Recorded Sex Assigned at Male 04/23/2018 1:23 PM CDT Gender Identity Male 04/23/2018 1:23 PM CDT Sexual Orientation Straight 04/23/2018 1: 23 PM CDT documented as of this encounter Plan of Treatment Upcoming Encounters Date Type Department Care Team (Latest Contact Info) Description 03/18/2024 9:15 AM CDT Appointment Department of Radiology, [facility], in [place], [place] [address] [place] [phone] Zeke Downey M.D. [address] [place] [phone] 03/23/2024 7:30 AM CDT Clinical Communication Virtual Review in [place], [place] 200 [place] [address] 03/24/2024 11:00 AM CDT Appointment Department of Radiology, [facility], in [address] [address] Ned Alegria M.D. [address] [place] [phone] 03/24/2024 12:20 PM CDT Lab Department of Infusion Therapy in [address] [address] Ned Alegria M.D. [address] [place] [phone] 03/24/2024 1:00 PM CDT Ancillary Procedure Department of Cardiovascular Medicine in [address] [phone] Zeke Downey M.D. [address] [place] [phone] 03/24/2024 3:30 PM CDT Office Visit Department of Oncology in [address] [address] Ned Alegria M.D. [address] [place] [phone] 04/14/2024 8:00 AM CDT Clinical Communication Virtual Review in [place], [place] 200 [place] [phone] 04/19/2024 10:30 AM CDT Office Visit Department of Palliative Care in [address] [phone] Patti Rush B.M.BCandidoS., B.M.B.Ch. [address] [place] [phone] 05/03/2024 9:30 AM CDT Appointment Division of Gastroenterology in [address] [address] Corrina Jaime M.D. [address] [place] [phone] Drake Brennan M.D. [address] [place] [phone] Scheduled Referrals Name Type Priority Associated Diagnoses Order Schedule Gastroenterology and Hepatology - General gastroenterology consult (clinic) Outpatient Referral Routine Malignant Neoplasm Of Rectum (HCC) Expected: 01/26/2024 (Approximate), Expires: 04/27/2025 documented as of this encounter Goals Goal Patient Goal Type Associated Problems Recent Progress Patient-Stated? Author Your pain? Symptom Management 9(11/20/2022 2:41 PM LISW) No Fee-Girma Bush, R.N., O.C.N. Note: 05/24/2021: Pain algorithm completed. [facility] 05/24/2021: Followup 06/07 [...] as of this encounter Care Teams Software Lead Relationship Specialty Start Date End Date Elsewhere, Pcp PCP - General Internal Medicine 10/14/22 documented as of this encounter
--- OUTSIDE RECORDS SUMMARY | 2024-03-16 16:43 | XMS_ITS | Encounter Summary ---
Author Name Unknown Organization [facility] Address [address] [place] [address] Care Team Providers Care Mental Health Director Name Role Phone Elsewhere, Pcp Primary Care Provider Unavailabl e Encounter Details Date Type Department Care Team (Late st Contact Info) Description 03/01/2024 Orders Only Department of Oncology in [place], [place] [address] [place] [phone] Amy Neff M.D. [address] [place] [phone] Malignant Neoplasm Of Rectum (HCC) (Primary Dx) [...] PHQ-2 Score 0 04/25/2019 [facility] Questionnaire Answer Date [...] (e.g., MA, MS, Ana Lilia, MEd, MACHINE TANK OPERATOR, GORDO) 02/15/2022 Sex and Gender Information Value Date Recorded Sex Assigned at Male 04/23/2018 1:23 PM CDT Gender Identity Male 04/23/2018 1:23 PM CDT Sexual Orientation Straight 04/23/2018 1: 23 PM CDT documented as of this encounter Plan of Treatment Upcoming Encounters Date Type Department Care Team (Latest Contact Info) Description 03/18/2024 9:15 AM CDT Appointment Department of Radiology, [facility], in [place], [place] 200 [place] [address] Zeke Downey M.D. 200 [place] [address] 03/23/2024 7:30 AM CDT Clinical Communication Virtual Review in [place], [place] 200 [place] [address] 03/24/2024 11:00 AM CDT Appointment Department of Radiology, [facility], in [place], [place] [address] [place] [phone] Ned Alegria M.D. [address] [place] [phone] 03/24/2024 12:20 PM CDT Lab Department of Infusion Therapy in [place], [place] [address] [place] [phone] Ned Alegria M.D. [address] [place] [phone] 03/24/2024 1:00 PM CDT Ancillary Procedure Department of Cardiovascular Medicine in [place], [place] [address] [place] [phone] Zeke Downey M.D. [address] [place] [phone] 03/24/2024 3:30 PM CDT Office Visit Department of Oncology in [address] [phone] Ned Alegria M.D. [address] [place] [phone] 04/14/2024 8:00 AM CDT Clinical Communication Virtual Review in [address] [phone] 04/19/2024 10:30 AM CDT Office Visit Department of Palliative Care in [address] [address] Patti Rush B.M.B.S., B.M.B.Ch. [address] [place] [phone] 05/03/2024 9:30 AM CDT Appointment Division of Gastroenterology in [place], [place] [address] [place] [phone] Corrina Jaime M.D. [address] [place] [address] Drake Brennan M.D. [address] [place] [address] documented as of this encounter Goals Goal Patient Goal Type Associated Problems Recent Progress Patient-Stated? Author Your pain? Symptom Management 9(11/20/2022 2:41 PM SAUSAGE TIER) Raisa Ferguson-iGrma Bush, RCandidoN., O.C.N. Note: 05/24/2021: Pain algorithm completed. [facility] [...] documented as of this encounter Care Teams Mental Health Director Relationship Specialty Start Date End Date Elsewhere, Pcp PCP - General Internal Medicine 10/14/22 documented as of this encounter
--- OUTSIDE RECORDS SUMMARY | 2024-03-16 16:43 | XMS_ITS | Encounter Summary ---
Author Name Unknown Organization [facility] Address [address] [place] [address] Care Team Providers Care Health Program Manager Name Role Phone Elsewhere, Pcp Primary Care Provider Unavailabl e Encounter Details Date Type Department Care Team (Late st Contact Info) Description 03/03/2024 Orders Only Division of Gastroenterology in [place], [place] [address] [place] [address] Sharon Villanueva M.D. [address] [place] [address] Social History Tobacco Use Types Packs/Day Years [...] How often do you attend chur or gnosticism services? Never 02/03/2023 Do you belong to [...] 04/25/2019 [facility] - Occupational Stress Questionnaire [...] degree (e.g., MA, MS, Ana Lilia, MEd, FINISHING TECHNICIAN, GORDO) 02/15/2022 Sex and Gender Information Value Date Recorded Sex Assigned at Male 04/23/2018 1:23 PM CDT Gender Identity Male 04/23/2018 1:23 PM CDT Sexual Orientation Straight 04/23/2018 1: 23 PM CDT documented as of this encounter Plan of Treatment Upcoming Encounters Date Type Department Care Team (Latest Contact Info) Description 03/18/2024 9:15 AM CDT Appointment Department of Radiology, [facility], in [place], [place] [address] [place] [phone] Zeke Downey M.D. [address] [place] [phone] 03/23/2024 7:30 AM CDT Clinical Communication Virtual Review in [place], [place] 200 [place] [address] 03/24/2024 11:00 AM CDT Appointment Department of Radiology, [facility], in [place], [place] [address] [place] [phone] Ned Alegria M.D. [address] [place] [phone] 03/24/2024 12:20 PM CDT Lab Department of Infusion Therapy in [place], [place] [address] [place] [phone] Ned Alegria M.D. [address] [place] [phone] 03/24/2024 1:00 PM CDT Ancillary Procedure Department of Cardiovascular Medicine in [place], [place] [address] [place] [phone] Zeke Downey M.D. [address] [place] [phone] 03/24/2024 3:30 PM CDT Office Visit Department of Oncology in [place], [place] [address] [place] [phone] Ned Alegria M.D. [address] [place] [phone] 04/14/2024 8:00 AM CDT Clinical Communication Virtual Review in [address] [phone] 04/19/2024 10:30 AM CDT Office Visit Department of Palliative Care in [address] [phone] Patti Rush B.M.B.S., B.M.B.Ch. [address] [place] [phone] 05/03/2024 9:30 AM CDT Appointment Division of Gastroenterology in [place], [place] [address] [place] [address] Corrina Jaime M.D. [address] [place] [address] Drake Brennan M.D. [address] [place] [phone] documented as of this encounter Goals Goal Patient Goal Type Associated Problems Recent Progress Patient-Stated? Author Your pain? Symptom Management 9(11/20/2022 2:41 PM LEAD PROJECT ENGINEER) No Phyllis-Girma Bush, RCandidoN., O.C.N. Note: 05/24/2021: [...] after initial assessment and spoke with Dr. iFshman. He was switched over to oxycodone and finds better relief with that. He is taking tylenol prn and states it helps. He is also starting radiation therapy on Matthew to the ribcage area and is hopeful [...] documented as of this encounter Care Teams Health Program Manager Relationship Specialty Start Date End Date Elsewhere, Pcp PCP - General Internal Medicine 10/14/22 documented as of this encounter
--- OUTSIDE RECORDS SUMMARY | 2024-03-16 16:43 | XMS_ITS | Encounter Summary ---
Author Name Unknown Organization [facility] Address [address] [place] [address] Care Team Providers Care Dowel Inserting Machine Operator Name Role Phone Elsewhere, Pcp Primary Care Provider Unavailabl e Reason for Visit * Reason Onset Date Comments Follow-up 01/14/2024 [facility] is c alling to complete your 3-month follow-up PROMIS-CAT questionnaires. You will receive questionnaires at different timepoints in the future. You can complete the current questionnaires in your portal and no return call is necessary. If you have any questions, please call us at: [phone]. Thank you! Encounter Details Date Type Department Care Team (Latest Contact Info) Description 01/14/2024 Clinical Communication Department of Spine in [place], [place] [address] [place] [phone] Lilia Huggins R.N. [address] [place] [phone] Follow-up ([facility] is calling to complete your 3-month follow-up PROMIS-CAT questionnaires. You will receive questionnaires at different timepoints in the future. You can complete the current questionnaires in your portal and no return call is necessary. If you have any questions, please call us at: [phone]. Thank you!/) Social History Tobacco Use Types Packs/Day Years [...] Answer Date Recorded PHQ-2 Score 0 04/25/2019 [facility] of Occupat ional Health - Occupational Stress [...] degree (e.g., MA, MS, Ana Lilia, MEd, INDUSTRIAL ROOFER, GORDO) 02/15/2022 Sex and Gender Information Value Date Recorded Sex Assigned at Male 04/23/2018 1:23 PM CDT Gender Identity Male 04/23/2018 1:23 PM CDT Sexual Orientation Straight 04/23/2018 1: 23 PM CDT documented as of this encounter Miscellaneous Notes * Telephone Encounter - Lilia Huggins R.N. - 01/14/2024 2:31 PM LAYOUT TECHNICIAN [facility] is calling to complete your 3-month follow-up PROMIS-CAT questionnaires. You will receive questionnaires at different timepoints in the future. You can complete the current questionnairesin your portal and no return call is necessary. If you have any questions, please call us at: [phone]. Thank you! UT TECHNICIAN documented in this encounter Plan of Treatment Upcoming Encounters Date Type Department Care Team (Latest Contact Info) Description 03/18/2024 9:15 AM CDT Appointment Department of Radiology, [facility], in [address] [phone] Zeke Downey M.D. [address] [place] [phone] 03/23/2024 7:30 AM CDT Clinical Communication Virtual Review in [address] [phone] 03/24/2024 11:00 AM CDT Appointment Department of Radiology, [facility], in [address] [address] Ned Alegria M.D. [address] [place] [phone] 03/24/2024 12:20 PM CDT Lab Department of Infusion Therapy in [address] [phone] Ned Alegria M.D. [address] [place] [phone] 03/24/2024 1:00 PM CDT Ancillary Procedure Department of Cardiovascular Medicine in [address] [place] [address] Zeke Downey M.D. [address] [place] [phone] 03/24/2024 3:30 PM CDT Office Visit Department of Oncology in [place], [place] [address] [place] [phone] Ned Alegria M.D. [address] [place] [phone] 04/14/2024 8:00 AM CDT Clinical Communication Virtual Review in [place], [place] 200 [place] [phone] 04/19/2024 10:30 AM CDT Office Visit Department of Palliative Care in [address] [phone] Patti Rush B.M.B.S., B.M.B.Ch. [address] [place] [phone] 05/03/2024 9:30 AM CDT Appointment Division of Gastroenterology in [address] [phone] Corrina Jaime M.D. [address] [place] [phone] Drake Brennan M.D. [address] [place] [phone] documented as of this encounter Goals Goal Patient Goal Type Associated Problems Recent Progress Patient-Stated? Author Your pain? Symptom Management 9(11/20/2022 2:41 PM LAYOUT TECHNICIAN) No Fee-Girma Bush, RCandidoN., O.C.N. Note: 05/24/2021: Pain algorithm completed. [facility] [...] documented as of this encounter Care Teams Dowel Inserting Machine Operator Relationship Specialty Start Date End Date Elsewhere, Pcp PCP - General Internal Medicine 10/14/22 documented as of this encounter
--- OUTSIDE RECORDS SUMMARY | 2024-03-16 16:43 | XMS_ITS | Encounter Summary ---
Author Name Unknown Organization [facility] Address [address] [place] [address] Care Team Providers Care Self Propelled Dredge Operator Name Role Phone Elsewhere, Pcp Primary Care Provider Unavailabl e Reason for Visit * Reason Comments Med Refill Encounter Details Date Type Department Care Team (Late st Contact Info) Description 01/25/2024 Refill Department of Palliative Care in [place], [place] [address] [place] [phone] Catrachita Padilla M.D., M.S. [address] [place] [phone] Med Refill Social History Tobacco Use Types [...] degree (e.g., MA, MS, Ana Lilia, MEd, CENTER MACHINE SET UP OPERATOR, GORDO) 02/15/2022 Sex and Gender Information [...] of Radiology, [facility], in [place], [place] 200 [place] [address] Zeke Downey M.D. 200 [place] [address] 03/23/2024 7:30 AM CDT Clinical Communication Virtual Review in [place], [place] 200 [place] [address] 03/24/2024 11:00 AM CDT Appointment Department of Radiology, [facility], in [place], [place] [address] [place] [phone] Ned Alegria M.D. [address] [place] [phone] 03/24/2024 12:20 PM CDT Lab Department of Infusion Therapy in [place], [place] [address] [place] [phone] Ned Alegria M.D. [address] [place] [phone] 03/24/2024 1:00 PM CDT Ancillary Procedure Department of Cardiovascular Medicine in [place], [place] [address] [place] [phone] Zeke Downey M.D. [address] [place] [phone] 03/24/2024 3:30 PM CDT Office Visit Department of Oncology in [place], [place] [address] [place] [phone] Ned Alegria M.D. [address] [place] [phone] 04/14/2024 8:00 AM CDT Clinical Communication Virtual Review in [address] [phone] 04/19/2024 10:30 AM CDT Office Visit Department of Palliative Care in [address] [phone] Patit Rush B.M.B.S., B.M.B.Ch. [address] [place] [phone] 05/03/2024 9:30 AM CDT Appointment Division of Gastroenterology in [place], [place] [address] [place] [phone] Corrina Jaime M.D. [address] [place] [phone] Drake Brennan M.D. [address] [place] [phone] documented as of this encounter Goals Goal Patient Goal Type Associated Problems Recent Progress Patient-Stated? Author Your pain? Symptom Management 9(11/20/2022 2:41 PM COMPOUND MACHINE OPERATOR) No Phyllis-Girma Bush RCandidoN., O.C.N. Note: [...] documented as of this encounter Care Teams Self Propelled Dredge Operator Relationship Specialty Start Date End Date Elsewhere, Pcp PCP - General Internal Medicine 10/14/22 documented as of this encounter
--- OUTSIDE RECORDS SUMMARY | 2024-03-16 16:43 | XMS_ITS | Encounter Summary ---
Author Name Unknown Organization [facility] Address [address] [place] [address] Care Team Providers Care Coach Wirer Name Role Phone Elsewhere, Pcp Primary Care Provider Unavailabl e Reason for Visit * Outpatient (Routine) - Closed Specialty Diagnoses / Procedures Referred By Halima owen Referred To Contact Palliative Medicine Catrachita Padilla M.D., M.S. [address] [place] [phone] [facility] Referral ID Status Reason Start Date Expiration Date Visits Re quested Visits Authorized [id number] Closed 12/24/2023 06/24/2025 1 1 Encounter Details Date Type Department Care Team (Late st Contact Info) Description 01/22/2024 3:30 PM DIRECTOR IT PROJECT Telemedicine Department of Palliative Care in [place], [place] [address] [place] [phone] Aylin Smith, PHARMACY ASSISTANT, C.N.P., M.S.N. [address] [place] [phone] Judy Herron M.D. [address] [place] [phone] Malignant Neoplasm Of Rectum (HCC) (Primary Dx); Pain Cancer Associated Social History Tobacco Use [...] often do you attend [facility] or [facility] [facility]? Never 02/03/2023 Do you [...] Answer Date Recorded PHQ-2 Score 0 04/25/2019 [facility] - [...] degree (e.g., MA, MS, Ana Lilia, MEd, OFFICE ADMINISTRATION, GORDO) 02/15/2022 Sex and Gender Information Value Date Recorded Sex Assigned at Male 04/23/2018 1:23 PM CDT Gender Identity Male 04/23/2018 1:23 PM CDT Sexual Orientation Straight 04/23/2018 1: 23 PM CDT documented as of this encounter Progress Notes * Judy Herron M.D. - 01/22/2024 3:30 PM CST SUBJECTIVE CHIEF COMPLAINT/REASON FOR VISIT Luis Tabares is a 43-year-old man from [place], [place] with metastatic rectal cancer who is followed in the outpatient Palliative Care Clinic for non-pain symptoms, pain, and psychosocial support. Established patient visit Visit conducted via virtual visit. The following person/people were also present during the discussion: None Medical Record review was conducted prior to the virtual visit. Date of last in-person clinic visit: 12/24/2023 Interval History: Mr. Tabares shares that his pain is ???okay?? . He continues to describe a back pain that comes and goes, rates it a 6/10, but shares that it is not functionally impairing him from doing the things hewould like to do. In the last 2 weeks he is utilized 2 doses of Dilaudid. He does share that he no longer has the morphine in his home, so I removed this from his list. He has yet to restart taking the Lyrica, but does request that we leave it on his list at this time as he would like to reinitiateit in the future. His primary concern today is ongoing GI difficulties, which she would like to be more settled prior to initiating the Lyrica. From a GI perspective, he shares that the last 2-1/2 days have been better from a bowel perspective, more regular. Prior to this he shares that he was having numerous stools a day that were watery innature. He has intermittently used Lomotil and Imodium as needed, but did not note any consistent improvement with this utilization, so as not started some sort of scheduled regimen. He shares that he thinks he had some sort of GI virus for several months, that is finally clearing up. He also attributes some of his difficulty to his ongoing chemotherapy. He does continue to report nausea and vomiting for which he takes Kytril with improvement. He is satisfied with his current antiemetic regimen. In discussing his mood he shares that it is ???relatively ... good. He elaborates that he is ???annoyed, and tired?? by the change in his physical stamina. He shares that he previously used to be able to do a lot of things, and has been frustrated by the physical limitations his cancer has imposed upon him. 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 He shares thingslike us make him angry. He is able to talk to his about these things, but shares that it is unfair for her as well. He does share that he has a good support system, and expressed appreciation for our team in being an outlet to discuss these challenges. ROS: As per HPI and patient reported data otherwise reviewed and non-contributory in the course of the current encounter. Bliss Bliss Symptom Assessment System (ESAS-FS) Who completed this form?: Patient No Pain = 0 and Worst Pain = 10: 6 No Fatigue = 0 and Worst Fatigue = 10: 8 No Nausea = 0 and Worst Nausea = 10: 8 No Depression = 0 and Worst Depression = 10: 0 No Anxiety = 0 and Worst Anxiety = 10: 0 No Drowsiness = 0 and Worst Drowsiness = 10 : 6 No Shortness of Breath = 0 and Worst Shortness of Breath = 10: 5 Best Appetite = 0 and Worst Appetite = 10: 8 Best Feeling of Well Being = 0 and Worst Feeling of Well Being = 10: 0 Best Sleep = 0 and Worst Sleep = 10: 6 No Financial Distress (Distress/suffering experienced secondary to financial issues) = 0 and Worst Financial Distress = 10: 4 No Spiritual Pain (Pain deep in your soul/being that is not physical) = 0 and Worst Spiritual Pain = 10: 0 Palliative Functional Assessment 80%- Full ambulation, Normal activity with effort and some evidence of disease, Full self-care, Normal or reduced intake, Full level of consciousness OBJECTIVE PHYSICAL EXAM Physical Exam General: Fatigued; no acute distress Eyes: Conjunctiva clear, sclera non-icteric Mouth: Mucous membranes moist Lungs: non-labored breathing pattern. Psychiatric: Oriented X3, intact recent and remote memory, judgment and insight, congruent mood andaffect. DIAGNOSTICS I have reviewed labs. ASSESSMENT / PLAN Luis Tabares is a 43-year-old man from [place], [place] with metastatic rectal cancer who is followed in the outpatient Palliative Care Clinic for non-pain symptoms, pain, and psychosocial support. I have reviewed the patients case and plan of care with Dr. Felicia Morfin. At this time Luis is satisfied with his current regimen, shares that he just refilled his methadone(anticipates he might need a slightly early refill for his [place] trip next month), and does not require any additional refills today. I will ask our nursing colleagues to touch base with him in approximately 1 week to ensure that hisdiarrhea remains resolved. If it has returned, we can reach out to Dr. Alegria to ensure that there isnot a workup that needs to be completed prior to his [place] trip at the beginning of February. RECOMMENDATIONS Pain: Continue methadone 2.5mg PO bid Continue hydromorphone 4mg Q4h PRN Continue to hold off on pregabalin; patient requested this remains on his list as he would like to initiate in the future Opioid Summary Opioid Need: This patient has a condition that necessitates treatment with an opioid for longer than 7 days. Additionally, a non-opioid alternative was not appropriate or inadequate to manage patient???s pain. 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 Opioid Toxicity Review: We have reviewed the risks of opioid therapy and completed an assessment oftoxicities. Opioid Aberrant Use Concerns: None Recommended Opioid Regimen as of 01/22/2024.: Methadone 2.5 BID, Hydromorphone 4 mg every 4 hours PRN Methadone EKG monitoring: Last QTc 456 ms 10/28/23 Next EKG due: If future dose adjustments or addition of QTc prolonging medications Opioid Risk Tool (this encounter) Flowsheet Row Comprehensive Visit from 09/26/2023 in Department of Palliative Care in [place], [place] Family history of substance abuse Alcohol N Illegal drugs N Prescription drugs N Personal history of substance abuse Alcohol N Illegal drugs N Prescription drugs N Age between 16 - 45 years Y History of preadolescent sexual abuse N Psychological disease Psychological disease, Attention Deficit Disorder, Obsessive Compulsive Disorder, Bipolar, Schizophrenia N Psychological disease: Depression N ORT Total Score (max 26) 1 Diarrhea: Resolved for the last 2-3 days; will have our nursing team follow up in 1 week to ensure this remains improved. Otherwise will work with Dr. Alegria to discuss if a evaluation needs to be performed prior to adjusting his anti-diarrheal regimen in anticipation of his trip to [place] in February. Advance Care Planning Will continue to focus on enhancing illness understanding while providing ongoing action oriented adaptive coping counseling. Thank you for the opportunity to see this patient. Patient has our contact information and understands to call with new/worsening symptoms or concerns. We will work alongside the primary outpatient team to address these issues. Palliative care outpatient clinic will continue to follow along. Follow up visit: Already scheduled for March Total time spent was 30 minutes Judy Herron M.D. CTOR IT PROJECT * Felicia Morfin M.D. - 01/22/2024 3:30 PM CST [facility] Palliative Medicine Physician Attestation I have discussed the patient along with Dr. Herron, Hospice and Palliative Medicine Fellow. I have reviewed the pertinent history and discussed the impression/plan with the resident/fellow. I agreewith the history, examination, impression, and recommendations as documented in today's note from the resident/fellow except as documented below. I do not see the patient today Luis Tabares is a 43-year-old man from [place], [place] with metastatic rectal cancer who is followed in the outpatient Palliative Care Clinic for non-pain symptoms, pain, and psychosocial support. He was last seen by Dr. Padilla. Jameson Gant is following as well. For pain, he continues on methadone. He has been using rare hydromorphone (2 doses in the last 2 weeks). He has had recommendations for pregabalin in the past, though given other symptoms (eg: diarrhea noted in different notes in the past, from Dr. Padilla and Dr. Alegria), he has held off on this. He also wonders about wanting to have his GI issues settled 1st. He still wanted the pregabalin left on his list in case he starts it. Recommendations: No changes to pain plan today Given diarrhea has been documented through notes over the last month or so, and it is a known side effect of irinotecan, would monitor for now (he has had some improvement over the last couple of days). Dr. Herron will have our retail sales professional reach out to the patient in about a week or so and if diarrhea continues/worsens, we could reach out to Onc to ask their opinions of this (eg: expected with hisregimen, need to w/u diarrhea further?). Dr. Herron is out of the country for the next month, butI can answer questions about this patient on her behalf. Felicia Morfin M.D. CTOR IT PROJECT documented in this encounter Plan of Treatment Upcoming Encounters Date Type Department Care Team (Latest Contact Info) Description 03/18/2024 9:15 AM CDT Appointment Department of Radiology, [facility], in [address] [phone] Zeke Downey M.D. [address] [place] [phone] 03/23/2024 7:30 AM CDT Clinical Communication Virtual Review in [address] [phone] 03/24/2024 11:00 AM CDT Appointment Department of Radiology, [facility], in [address] [phone] Ned Alegria M.D. [address] [place] [phone] 03/24/2024 12:20 PM CDT Lab Department of Infusion Therapy in [address] [phone] Ned Alegria M.D. [address] [place] [phone] 03/24/2024 1:00 PM CDT Ancillary Procedure Department of Cardiovascular Medicine in [address] [phone] Zeke Downey M.D. [address] [place] [phone] 03/24/2024 3:30 PM CDT Office Visit Department of Oncology in [place], [place] [address] [place] [phone] Ned Alegria M.D. [address] [place] [phone] 04/14/2024 8:00 AM CDT Clinical Communication Virtual Review in [place], [place] 200 [place] [phone] 04/19/2024 10:30 AM CDT Office Visit Department of Palliative Care in [address] [phone] Patti Rush B.M.B.S., B.M.B.Ch. [address] [place] [phone] 05/03/2024 9:30 AM CDT Appointment Division of Gastroenterology in [address] [phone] Corrina Jaime M.D. [address] [place] [phone] Drake Brennan M.D. [address] [place] [phone] documented as of this encounter Goals Goal Patient Goal Type Associated Problems Recent Progress Patient-Stated? Author Your pain? Symptom Management 9(11/20/2022 2:41 PM DIRECTOR IT PROJECT) No Fee-Girma Bush RRancho., O.C.N. Note: 05/24/2021: Pain algorithm completed. POST [...] Recommendations at initial call and response: Mr. aTbares had a flare up of pain after [...] Of Rectum (HCC)- Primary Pain Cancer Associated documented in this encounter Additional Health Concerns Assessment Noted Time PHQ-9 Depression Total Score: 7 05/26/20 18 10:22 PM CDT documented as of this encounter Care Teams Coach Wirer Relationship Specialty Start Date End Date Elsewhere, Pcp PCP - General Internal Medicine 10/14/22 documented as of this encounter
--- OUTSIDE RECORDS SUMMARY | 2024-03-16 16:43 | XMS_ITS | Encounter Summary ---
Author Name Unknown Organization [facility] Address [address] [place] [id number] Care Team Providers Care Wildlife Conservation Professor Name Role Phone Elsewhere, Pcp Primary Care Provider Unavailabl e Reason for Visit * Reason Comments Med Change Request Encounter Details Date Type Department Care Team (Late st Contact Info) Description 01/26/2024 Refill Department of Palliative Care in [place], [place] [address] [place] [phone] Jimbo Coe, CINDY, C.N.P., D.N.P. [address] [place] [phone] Med Change Request Social History Tobacco Use [...] Answer Date Recorded PHQ-2 Score 0 04/25/2019 [facility] Answer Date [...] (e.g., MA, MS, Ana Lilia, MEd, PRODUCTION UTILITY WORKER, GORDO) 02/15/2022 Sex and Gender Information Value Date Recorded Sex Assigned at Male 04/23/2018 1:23 PM CDT Gender Identity Male 04/23/2018 1:23 PM CDT Sexual Orientation Straight 04/23/2018 1: 23 PM CDT documented as of this encounter Miscellaneous Notes * Telephone Encounter - Martha Guerrier RRancho. - 01/26/2024 1:27 PM CDT 01/26/24: Contacted Pharmacy. Previously filled at [facility] in [place]. Pharmacy ran differently and was able to get coverage for Granisetron. They need to order medication, will hopefully have it available to be dispensed to patient tomorrow. documented in this encounter Plan of Treatment Upcoming Encounters Date Type Department Care Team (Latest Contact Info) Description 03/18/2024 9:15 AM CDT Appointment Department of Radiology, [facility], in [place], [place] [address] [place] [phone] Zeke Downey M.D. [address] [place] [phone] 03/23/2024 7:30 AM CDT Clinical Communication Virtual Review in [place], [place] 200 [place] [address] 03/24/2024 11:00 AM CDT Appointment Department of Radiology, [facility], in [place], [place] [address] [place] [phone] Ned Alegria M.D. [address] [place] [phone] 03/24/2024 12:20 PM CDT Lab Department of Infusion Therapy in [place], [place] [address] [place] [phone] Ned Alegria M.D. [address] [place] [phone] 03/24/2024 1:00 PM CDT Ancillary Procedure Department of Cardiovascular Medicine in [place], [place] [address] [place] [phone] Zeke Downey M.D. [address] [place] [phone] 03/24/2024 3:30 PM CDT Office Visit Department of Oncology in [address] [phone] Ned Alegria M.D. [address] [place] [phone] 04/14/2024 8:00 AM CDT Clinical Communication Virtual Review in [place], [place] 200 [place] [phone] 04/19/2024 10:30 AM CDT Office Visit Department of Palliative Care in [address] Patti Rush B.M.B.S., B.M.B.Ch. [address] [place] [phone] 05/03/2024 9:30 AM CDT Appointment Division of Gastroenterology in [address] [phone] Corrina Jaime M.D. [address] [place] [phone] Drake Brennan M.D. [address] [place] [phone] documented as of this encounter Goals Goal Patient Goal Type Associated Problems Recent Progress Patient-Stated? Author Your pain? Symptom Management 9(11/20/2022 2:41 PM BALANCE WEIGHER) No Fee-Girma Bush, R.N., O.C.N. Note: 05/24/2021: Pain algorithm completed. [facility] 05/24/2021: Followup 06/07 via portal per patient [...] documented as of this encounter Care Teams Wildlife Conservation Professor Relationship Specialty Start Date End Date Elsewhere, Pcp PCP - General Internal Medicine 10/14/22 documented as of this encounter
--- OUTSIDE RECORDS SUMMARY | 2024-03-16 16:43 | XMS_ITS | Encounter Summary ---
Author Name Unknown Organization [facility] Address [address] [place] [address] Care Team Providers Care Compressor Repairer Name Role Phone Elsewhere, Pcp Primary Care Provider Unavailabl e Reason for Referral * Outpatient (Routine) - Closed Specialty Diagnoses / Procedures Referred By Contac t Referred To Contact Diagnoses Pain Chest Wall Pain Neuropathic Pain Post Thoracotomy Chronic Procedures FL Spine Intercostal Injection Right MI INJ ANES INTERCOSTAL NRV SNGL LVL MI INJ ANES INTERCOSTAL NRV EA ADDL LEVEL Sean Shen D.O. [address] [place] [address] [facility] Referral ID Status Reason Start Date Expiration Date Visits Re quested Visits Authorized [id number] Closed 02/02/2024 02/01/2025 1 1 Reason for Visit * Outpatient (Routine) - Closed Specialty Diagnoses / Procedures Referred By Contac t Referred To Contact Diagnoses Pain Chest Wall Pain Neuropathic Pain Post Thoracotomy Chronic Procedures FL Spine Intercostal Injection Right MI INJ ANES INTERCOSTAL NRV SNGL LVL MI INJ ANES INTERCOSTAL NRV EA ADDL LEVEL Sean Shen D.O. [address] [place] [address] [facility] Referral ID Status Reason Start Date Expiration Date Visits Re quested Visits Authorized [id number] Closed 02/02/2024 02/01/2025 1 1 Encounter Details Date Type Department Care Team (Latest Contact Info) Description 02/05/2024 7:26 AM CDT - 02/05/2024 11:59 PM CDT Hospital Encounter Division of Pain Medicine in [place], [place] [address] [place] [address] Sean Shen D.O. [address] [place] [address] Pain Chest Wall; Pain Neuropathic; Pain Post [...] Score 0 04/25/2019 [facility] - Occupational Stress Questionnaire Answer [...] degree (e.g., MA, MS, Ana Lilia, MEd, SORT OPERATIONS SUPERVISOR, GORDO) 02/15/2022 Sex and Gender Information Value Date Recorded Sex Assigned at Male 04/23/2018 1:23 PM CDT Gender Identity Male 04/23/2018 1:23 PM CDT Sexual Orientation Straight 04/23/2018 1: 23 PM CDT documented as of this encounter Last Filed Vital Signs Vital Sign Reading Time Taken Comments Blood Pressure 102/65 02/05/2024 8:24 AM CDT Pulse 110 02/05/2024 8:24 AM CDT Temperature 36.5 ??C (97.7 ??F) 02/05/2024 7:43 AM CD T Respiratory Rate - - Oxygen Saturation 99% 02/05/2024 8:11 AM CDT Inhaled Oxygen Concentration - - [...] tablet Take 1,000 mcg by mouth daily. diphenoxylate-atropine (LOMOTIL) 2.5-0.025 mg per tablet Take [...] 09/26/2023 pantoprazole (PROTONIX) 40 mg EC tabletIndications:Rosie yanes Neoplasm Of Rectum (HCC) take 1 tablet [...] twice daily Fri-. 240 g 3 10/28/2023 amLODIPine (NORVASC) 10 mg tablet Take 10 mg by mouth. Pt unsure about the dosage 09/26/2023 03/03/2024 azithromycin (ZITHROMAX) 500 mg tablet 12/18/2023 03/03/2024 dexAMETHasone (DECADRON) 4 mg tablet Take 1 tablet (4 mg total) by mouth daily. Take in a.m. with food 30 tablet 3 09/26/2023 03/05/2024 doxycycline (DORYX) 75 mg EC tablet Take 100 mg by mouth. 10/14/2023 03/03/2024 doxycycline monohydrate (MONODOX) 100 mg capsule TAKE 1 CAPSULE (100 MG TOTAL) BY MOUTH 2 (TWO) TIMES A DAY BEFORE BREAKFAST AND DINNER. 60 capsule 3 01/30/2024 03/03/2024 DULoxetine (CYMBALTA) [address] capsule Take 1 capsule by mouth daily. 11/27/2023 03/03/2024 erythromycin (ROMYCIN) 5 mg/gram (0.5 %) ophthalmic ointment APPLY 1 STRIP TO RIGHT EYE FOUR TIMES DAILY. 01/08/2023 03/03/2024 HYDROmorphone (DILAUDID) 4 mg tabletIndications:Geochemist alvino Pain/Nonacute Pain Take 1-1.5 tablets (4-6 mg total) by mouth every 4 (four) hours as needed for pain Indication: Chronic Pain/Nonacute Pain. 60 tablet 09/26/2023 03/12/2024 ibuprofen (ADVIL,MOTRIN) 100 mg tablet Take 600 mg by mouth as needed. 09/26/2023 03/03/2024 ibuprofen (ADVIL,MOTRIN) 200 mg tablet Take 3 tablets (600 mg total) by mouth every 6 (six) hours as needed for pain. 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 If ineffective, may repeat once after 30 minutes. 30 tablet 05/08/2020 03/05/2024 methadone (DOLOPHINE) 5 mg tabletIndications:Geochemist alvino Pain/Nonacute Pain Take 0.5 tablets (2.5 mg total) by mouth 2 (two) times a day Indication: Chronic Pain/Nonacute Pain. 30 tablet 02/05/2024 03/12/2024 methadone dilution (DOLOPHINE) 0.5 mg/mL injection Take 5 mg by mouth. 09/30/2023 03/03/20 minocycline (DYNACIN) 100 mg tablet Take 100 mg by mouth 2 (two) times a day. 10/14/2023 03/03/2024 nitroglycerin (Nitrostat) 0.[address] 0.4 mg under the tongue. 09/26/2023 03/03/2024 pregabalin (LYRICA) 100 mg capsule Take 1 capsule (100 mg total) by mouth 2 (two) times a day. Start after you finish the 25 capsule increase 60 capsule 2 12/03/2023 03/05/2024 pregabalin (LYRICA) 25 mg capsule Take 1 capsule (25 mg total) by mouth 2 (two) times a day for 5 days, THEN 2 capsules (50 mg total) 2 (two) times a day for 5 days, THEN 3 capsules (75 mg total) 2 (two) times a day for 5 days. 60 capsule 12/03/2023 03/05/2024 TURMERIC ORAL Take 1 tablet by mouth every morning. 03/05/2024 documented as of this encounter Procedure Notes * Raf Cochran M.D. - 02/05/2024 8:00 AM CDTAssociated Order(s): FL Spine Intercostal Injection Right Pre-Procedure Diagnose(s): Pain Chest Wall; Pain Neuropathic; Pain Post Thoracotomy Chronic Post-Procedure Diagnose(s): Pain Chest Wall; Pain Neuropathic; Pain Post Thoracotomy Chronic FL Spine Intercostal Injection Right Performed by: Raf Cochran M.D. Authorized by: Sean Shen D.O. Care team members present 1. Sean Shen D.O. 2. Yareli Wiggins L.P.N. PROCEDURE SUMMARY Indications: Intractable pain Pre-procedural pain: 10 Post-procedural pain: 12/27 Site: thoracic Thoracic: intercostal nerve block Intercostal nerve block: Right T5 and Right T7 Needle or RF cannula: Spinal Needle size: 25 G Needle length: 2 in Patient position: prone IMAGING Ultrasound image guidance used to localize target, [...] withinthe next 24 hours. ADDITIONAL PROCEDURE COMMENTS Patient tolerated the procedure very well. We utilized fluoroscopy to identify the right T5 and 7 ribs. Ultrasound was then used to guide the needle into proper position. There was no evidence of anycomplication. CONSENT Consent obtained: written (Risks, benefits and [...] fellow participated in the procedure, and the design center consultant was present for the entire procedure. OPERATIVE NOTE INFORMATION Specimens: 0 Drains: 0 Estimated blood loss: 0 Implants: 0 documented in this encounter Plan of Treatment Upcoming Encounters Date Type Department Care Team (Latest Contact Info) Description 03/18/2024 9:15 AM CDT Appointment Department of Radiology, [facility], in [address] [phone] Zeke Downey M.D. [address] [place] [phone] 03/23/2024 7:30 AM CDT Clinical Communication Virtual Review in [place], [place] [address] [place] [address] 03/24/2024 11:00 AM CDT Appointment Department of Radiology, [facility], in [place], [place] [address] [place] [phone] Ned Alegria M.D. [address] [place] [phone] 03/24/2024 12:20 PM CDT Lab Department of Infusion Therapy in [place], [place] [address] [place] [phone] Ned Alegria M.D. [address] [place] [phone] 03/24/2024 1:00 PM CDT Ancillary Procedure Department of Cardiovascular Medicine in [address] [phone] Zeke Downey M.D. [address] [place] [phone] 03/24/2024 3:30 PM CDT Office Visit Department of Oncology in [address] [phone] Ned Alegria M.D. [address] [place] [phone] 04/14/2024 8:00 AM CDT Clinical Communication Virtual Review in [place], [place] [address] [place] [address] 04/19/2024 10:30 AM CDT Office Visit Department of Palliative Care in [address] [phone] Patti Rush B.Munira.B.S., B.M.B.Ch. [address] [place] [phone] 05/03/2024 9:30 AM CDT Appointment Division of Gastroenterology in [place], [place] [address] [place] [phone] Corrina Jaime M.D. [address] [place] [phone] Drake Brennan M.D. [address] [place] [phone] documented as of this encounter Goals Goal Patient Goal Type Associated Problems Recent Progress Patient-Stated? Author Your pain? Symptom Management 9(11/20/2022 2:41 PM STENO POOL SUPERVISOR) No Fee-Girma Bush, RCandidoN., O.C.N. Note: 05/24/2021: [...] Diagnosis Comments FL SPINE INTERCOSTAL INJECTION Routine 02/05/2024 8:26 AM CDT Pain Chest Wall Pain Neuropathic Pain Post Thoracotomy Chronic documented in this encounter Results * FL Spine Intercostal Injection Right (02/05/2024 8:26 AM CDT) Narrative Raf Cochran M.D. - 02/05/2024 8:00 AM CDT Raf Cochran M.D. ? 02/05/2024 ??8:45 AM FL Spine Intercostal Injection Right Performed by: Raf Cochran M.D. Authorized by: Sean Shen D.O. ?? Care team members present 1. Sean Shen D.O. 2. Yareli Wiggins, L.P.N. PROCEDURE SUMMARY Indications: Intractable pain Pre-procedural [...] fellow participated in the procedure, and the design center consultant was present for the entire procedure. [...] 3 mL, injection, One-Time Injection, Starting on Francy 02/05/24 at 0800, For 1 dose Given 02/05/2024 8:00 AM CDT 3 mL dexAMETHasone injection 10 mg (DECADRON) 10 mg, injection, One-Time Injection, Starting on Francy 02/05/24 at 0800, For 1 dose Given 02/05/2024 8:00 AM CDT 10 mg lidocaine 20 mg/mL injection 3 mL (XYLOCAINE) 3 mL, injection, One-Time Injection, Starting on Francy 02/05/24 at 0800, For 1 dose Given 02/05/2024 8:00 AM CDT 3 mL documented in this encounter Additional Health Concerns Assessment Noted Time PHQ-9 Depression Total Score: 7 05/26/20 18 10:22 PM CDT documented as of this encounter Care Teams Compressor Repairer Relationship Specialty Start Date End Date Elsewhere, Pcp PCP - General Internal Medicine 10/14/22 documented as of this encounter
--- OUTSIDE RECORDS SUMMARY | 2024-03-16 16:43 | XMS_ITS | Encounter Summary ---
Author Name Unknown Organization [facility] Address [address] [place] [address] Care Team Providers Care Hotel Casino Floorperson Name Role Phone Elsewhere, Pcp Primary Care Provider Unavailabl e Reason for Referral * Outpatient (Routine) - Closed Specialty Diagnoses / Procedures Referred By Contac t Referred To Contact Palliative Medicine Diagnoses . Catrachita Padilla M.D., M.S. [address] [place] [address] [facility] Referral ID Status Reason Start Date Expiration Date Visits Re quested Visits Authorized [id number] Closed 12/24/2023 06/24/2025 1 1 Scheduling Instructions To be scheduled after Oncology in person visit scheduled L PATTERNMAKER * Outpatient (Routine) - Closed Specialty Diagnoses / Procedures Referred By Contac t Referred To Contact Palliative Medicine Catrachita Padilla [place] [address] [facility] Referral ID Status Reason Start Date Expiration Date Visits Re quested Visits Authorized [id number] Closed 12/24/2023 06/24/2025 1 1 Scheduling Instructions 4-6 weeks L PATTERNMAKER Reason for Visit * Outpatient (Routine) - Closed Specialty Diagnoses / Procedures Referred By Contac t Referred To Contact Palliative Medicine Diagnoses n/a Catrachita Padilla M.D., M.S. [address] [place] [address] [facility] Referral ID Status Reason Start Date Expiration Date Visits Re quested Visits Authorized [id number] Closed 12/04/2023 12/03/2026 1 1 Encounter Details Date Type Department Care Team (Late st Contact Info) Description 12/24/2023 2:15 PM METAL PATTERNMAKER Office Visit Department of Palliative Care in [place], [place] [address] [place] [phone] Aylin Smith APRN, C.N.P., M.S.N. [address] [place] [phone] Catrachita Padilla M.D., M.S. [address] [place] [phone] Malignant Neoplasm Of Rectum (HCC) (Primary Dx); [...] Answer Date Recorded PHQ-2 Score 0 04/25/2019 [facility] - Occupational [...] degree (e.g., MA, MS, Ana Lilia, MEd, MOLDING PROCESS TECHNICIAN, GRODO) 02/15/2022 Sex and Gender Information Value Date Recorded Sex Assigned at Male 04/23/2018 1:23 PM CDT Gender Identity Male 04/23/2018 1:23 PM CDT Sexual Orientation Straight 04/23/2018 1: 23 PM CDT documented as of this encounter Last Filed Vital Signs Vital Sign Reading Time Taken Comments Blood Pressure 110/80 12/24/2023 1:58 PM METAL PATTERNMAKER Pulse 136 12/24/2023 1:58 PM METAL PATTERNMAKER Temperature 36.5 ??C (97.7 ??F) 12/24/2023 1:58 PM CS T Respiratory Rate - - Oxygen Saturation 97% 12/24/2023 1:58 PM METAL PATTERNMAKER Inhaled Oxygen Concentration - - Weight - - Height - - Body Mass Index - - documented in this encounter Progress Notes * Catrachita Padilla M.D., M.S. - 12/24/2023 2:15 PM CST SUBJECTIVE CHIEF COMPLAINT/REASON FOR VISIT Luis Tabares is a 43-year-old man from [place], [place] with metastatic rectal cancer who is [...] daily infusions of potassium and magnesium at [place]. In this setting, he stopped and has [...] pulmonary metastatic foci. ASSESSMENT / PLAN Luis Tbaares is a 43-year-old man from [place], [place] with metastatic rectal cancer who is [...] to controlled substance prescribing: rectal cancer [place] SUPERVISOR BIT AND SHANK DEPARTMENT Review: We have reviewed the patient's record in the [place] prescription monitoring program 12/24/2023. Opioid Toxicity Review: [...] 09/26/2023 in Department of Palliative Care in [place], [place] ORT Total Score (max 26) 1 [...] was 55 minutes Catrachita Padilla M.D., M.S. L PATTERNMAKER documented in this encounter Plan of Treatment Upcoming Encounters Date Type Department Care Team (Latest Contact Info) Description 03/18/2024 9:15 AM CDT Appointment Department of Radiology, [facility], in [address] [phone] Zeke Downey M.D. [address] [place] [phone] 03/23/2024 7:30 AM CDT Clinical Communication Virtual Review in [address] [phone] 03/24/2024 11:00 AM CDT Appointment Department of Radiology, [facility], in [address] [phone] Ned Alegria M.D. [address] [place] [phone] 03/24/2024 12:20 PM CDT Lab Department of Infusion Therapy in [address] [phone] Ned Alegria M.D. [address] [place] [phone] 03/24/2024 1:00 PM CDT Ancillary Procedure Department of Cardiovascular Medicine in [address] [phone] Zeke Downey M.D. [address] [place] [phone] 03/24/2024 3:30 PM CDT Office Visit Department of Oncology in [address] [phone] Ned Alegria M.D. [address] [place] [phone] 04/14/2024 8:00 AM CDT Clinical Communication Virtual Review in [place], [place] 200 [place] [phone] 04/19/2024 10:30 AM CDT Office Visit Department of Palliative Care in [address] [phone] Patti Rush B.M.BCandidoS., B.M.B.Ch. [address] [place] [phone] 05/03/2024 9:30 AM CDT Appointment Division of Gastroenterology in [address] [phone] Corrina Jaime M.D. [address] [place] [phone] Darke Brennan M.D. [address] [place] [phone] Scheduled Referrals Name Type Priority Associated Diagnoses Order Schedule Palliative Care office visit (clinic) Outpatient Referral Routine Expected: 01/22/2024 (Approximate), Expires: 03/23/2025 Palliative Care office visit (clinic) Outpatient Referral Routine Expected: 03/23/2024 (Approximate), Expires: 03/23/2025 documented as of this encounter Goals Goal Patient Goal Type Associated Problems Recent Progress Patient-Stated? Author Your pain? Symptom Management 9(11/20/2022 2:41 PM METAL PATTERNMAKER) No Fee-Girma Bush RCandidoN., O.C.N. Note: 05/24/2021: [...] documented as of this encounter Care Teams [employer] Floorperson Relationship Specialty Start Date End Date Elsewhere, Pcp PCP - General Internal Medicine 10/14/22 documented as of this encounter
--- OUTSIDE RECORDS SUMMARY | 2024-03-16 16:44 | XMS_ITS | Encounter Summary ---
Author Name Unknown Organization [facility] Address [address] [place] [address] Care Team Providers Care Vocational Technical Education Director Name Role Phone Elsewhere, Pcp Primary Care Provider Unavailabl e Encounter Details Date Type Department Care Team (Late st Contact Info) Description 12/17/2023 Orders Only Pharmacy Prior Auth [facility] [phone] Xiomara Blood Social History Tobacco Use Types [...] week 02/03/2023 How often do you attend [facility] or shinto services? Never 02/03/2023 Do you [...] Answer Date Recorded PHQ-2 Score 0 04/25/2019 [facility]at [facility] - Occupational Stress [...] degree (e.g., MA, MS, Ana Lilia, MEd, SHOP COORDINATOR, GORDO) 02/15/2022 Sex and Gender Information Value Date Recorded Sex Assigned at Male 04/23/2018 1:23 PM CDT Gender Identity Male 04/23/2018 1:23 PM CDT Sexual Orientation Straight 04/23/2018 1: 23 PM CDT documented as of this encounter Plan of Treatment Upcoming Encounters Date Type Department Care Team (Latest Contact Info) Description 03/18/2024 9:15 AM CDT Appointment Department of Radiology, [facility] in [place], [place] [address] [place] [phone] Zeke Downey M.D. [address] [place] [phone] 03/23/2024 7:30 AM CDT Clinical Communication Virtual Review in [place], [place] [address] [place] [phone] 03/24/2024 11:00 AM CDT Appointment Department of Radiology, [facility], in [place], [place] [address] [place] [phone] Ned Alegria M.D. [address] [place] [phone] 03/24/2024 12:20 PM CDT Lab Department of Infusion Therapy in [place], [place] [address] [place] [phone] Ned Alegria M.D. [address] [place] [phone] 03/24/2024 1:00 PM CDT Ancillary Procedure Department of Cardiovascular Medicine in [place], [place] [address] [place] [phone] Zeke Downey M.D. [address] [place] [phone] 03/24/2024 3:30 PM CDT Office Visit Department of Oncology in [place], [place] [address] [place] [phone] Ned Alegria M.D. [address] [place] [phone] 04/14/2024 8:00 AM CDT Clinical Communication Virtual Review in [place], [place] 200 [place] [address] 04/19/2024 10:30 AM CDT Office Visit Department of Palliative Care in [place], [place] [address] [place] [phone] Patti Rush B.M.B.S., B.M.B.Ch. [address] [place] [phone] 05/03/2024 9:30 AM CDT Appointment Division of Gastroenterology in [place], [place] [address] [place] [phone] Corrina Jaime M.D. 200 [facility] [place] [phone] Drake Brennan M.D. [address] [place] [phone] documented as of this encounter Goals Goal Patient Goal Type Associated Problems Recent Progress Patient-Stated? Author Your pain? Symptom Management 9(11/20/2022 2:41 PM DECKHAND MAINTENANCE) Raisa Ferguson-Girma Bush R.N., O.C.N. Note: 05/24/2021: [...] documented as of this encounter Care Teams Vocational Technical Education Director Relationship Specialty Start Date End Date Elsewhere, Pcp PCP - General Internal Medicine 10/14/22 documented as of this encounter
--- OUTSIDE RECORDS SUMMARY | 2024-03-16 16:44 | XMS_ITS | Encounter Summary ---
Author Name Unknown Organization [facility] Address [address] [place] [address] Care Team Providers Care Virtual Assistant For Advertisers Name Role Phone Elsewhere, Pcp Primary Care Provider Unavailabl e Encounter Details Date Type Department Care Team (Late st Contact Info) Description 12/16/2023 Orders Only [facility] - [place] [address] [place] [address] [place] [phone] Dolores Khanna Social History Tobacco Use [...] 0 04/25/2019 [facility] - Occupational Stress Questionnaire Answer [...] degree (e.g., MA, MS, Ana Lilia, MEd, OB/GYN PHYSICIAN, GORDO) 02/15/2022 Sex and Gender Information Value Date Recorded Sex Assigned at Male 04/23/2018 1:23 PM CDT Gender Identity Male 04/23/2018 1:23 PM CDT Sexual Orientation Straight 04/23/2018 1: 23 PM CDT documented as of this encounter Plan of Treatment Upcoming Encounters Date Type Department Care Team (Latest Contact Info) Description 03/18/2024 9:15 AM CDT Appointment Department of Radiology, [facility], in [place], [place] [address] [place] [phone] Zeke Downey M.D. [address] [place] [phone] 03/23/2024 7:30 AM CDT Clinical Communication Virtual Review in [place], [place] [address] [place] [address] 03/24/2024 11:00 AM CDT Appointment Department of Radiology, [facility], in [place], [place] [address] [place] [phone] Ned Alegria M.D. [address] [place] [phone] 03/24/2024 12:20 PM CDT Lab Department of Infusion Therapy in [place], [place] [address] [place] [phone] Ned Alegria M.D. [address] [place] [phone] 03/24/2024 1:00 PM CDT Ancillary Procedure Department of Cardiovascular Medicine in [place], [place] [address] [place] [phone] Zeke Downey M.D. [address] [place] [phone] 03/24/2024 3:30 PM CDT Office Visit Department of Oncology in [place], [place] [address] [place] [phone] Ned Alegria M.D. [address] [place] [phone] 04/14/2024 8:00 AM CDT Clinical Communication Virtual Review in [place], [place] 200 [place] [phone] 04/19/2024 10:30 AM CDT Office Visit Department of Palliative Care in [address] [phone] Patti Rush B.M.B.S., B.M.B.Ch. [address] [place] [phone] 05/03/2024 9:30 AM CDT Appointment Division of Gastroenterology in [place], [place] [address] [place] [phone] Corrina Jaime M.D. [address] [place] [address] Drake Brennan M.D. [address] [place] [phone] documented as of this encounter Goals Goal Patient Goal Type Associated Problems Recent Progress Patient-Stated? Author Your pain? Symptom Management 9(11/20/2022 2:41 PM DOOR TO DOOR SELLING AGENT) No Fee-Girma Bush, RCandidoN., O.C.N. Note: [...] that his need for medication may change. [facility] 06/07/2021: Pain rating over the [...] documented as of this encounter Care Teams Virtual Assistant For Advertisers Relationship Specialty Start Date End Date Elsewhere, Pcp PCP - General Internal Medicine 10/14/22 documented as of this encounter
--- OUTSIDE RECORDS SUMMARY | 2024-03-16 16:44 | XMS_ITS | Encounter Summary ---
Author Name Unknown Organization [facility] Address [address] [place] [address] Care Team Providers Care Aquatic Physiotherapist Name Role Phone Elsewhere, Pcp Primary Care [...] to Thigh FDG Noelle Reyes P.A.-C., P.A. 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 [address] [place] [address] [facility] Referral ID Status Reason Start Date Expiration Date Visits Re quested Visits Authorized [id number] Closed 10/27/2023 10/26/2024 1 1 Encounter Details Date Type Department Care Team (Latest Contact Info) Description 12/24/2023 8:57 AM COOPER HELPER - 12/24/2023 11:59 PM COOPER HELPER Hospital Encounter Department of Radiology, [facility], in [place], [place] [address] [place] [address] Noelle Reyes P.A.-C., P.A. [address] [place] [address] Malignant Neoplasm Of Rectum (HCC); Secondary Malignant [...] 02/03/2023 How often do you attend [facility] or [facility]? Never 02/03/2023 Do you [...] Date Recorded PHQ-2 Score 0 04/25/2019 [facility] - Occupational [...] (e.g., MA, MS, Ana Lilia, MEd, DIRECTOR OF FINANCIAL PLANNING, GORDO) 02/15/2022 Sex and Gender Information Value [...] SPRAYS TO BOTH NOSTRILS ONCE DAILY 12/10/2022 hydrocortisone (CORTAID) 1 % cream Apply [...] twice daily Fri-. 240 g 3 10/28/2023 amitriptyline 2%-ketamine 5%-lidocaine 5% in lipoderm Apply topically 3 (three) times a day. Apply to skin over right upper quadrant abdomen three times daily, as needed. 30 g 3 03/07/2022 01/22/2024 amLODIPine (NORVASC) 10 mg tablet Take 10 mg by mouth. Pt unsure about the dosage 09/26/2023 03/03/2024 azithromycin (ZITHROMAX) 500 mg tablet 12/18/2023 03/03/2024 dexAMETHasone (DECADRON) 0.5 mg tablet Take 4 mg by mouth. 09/29/2023 01/22/20 24 dexAMETHasone (DECADRON) 4 mg tablet Take 1 tablet (4 mg total) by mouth daily. Take in a.m. with food 30 tablet 3 09/26/2023 03/05/2024 doxycycline (DORYX) 75 mg EC tablet Take 100 mg by mouth. 10/14/2023 03/03/2024 doxycycline monohydrate (MONODOX) 100 mg capsule Take 1 capsule (100 mg total) by mouth 2 (two) times a day before breakfast and dinner. 60 capsule 3 09/26/2023 01/30/2024 DULoxetine (CYMBALTA) [address] capsule Take 1 capsule by mouth daily. 11/27/2023 03/03/2024 erythromycin (ROMYCIN) 5 mg/gram (0.5 %) ophthalmic ointment APPLY 1 STRIP TO RIGHT EYE FOUR TIMES DAILY. 01/08/2023 03/03/2024 granisetron (KYTRIL) 1 mg tablet Take 1 tablet (1 mg total) by mouth every 12 (twelve) hours as needed for nausea or vomiting. 60 tablet 12/03/2023 01/25/2024 HYDROmorphone (DILAUDID) 4 mg tabletIndications:Card Grinder Helper alvino Pain/Nonacute Pain Take 1-1.5 tablets (4-6 mg total) by mouth every 4 (four) hours as needed for pain Indication: Chronic Pain/Nonacute Pain. 60 tablet 09/26/2023 03/12/2024 HYDROmorphone (Dilaudid) 4 mg tablet Take 4 mg by mouth. 09/30/2023 01/22/2024 ibuprofen (ADVIL,MOTRIN) 100 mg tablet Take 600 mg by mouth as needed. 09/26/2023 03/03/2024 ibuprofen (ADVIL,MOTRIN) 200 mg tablet Take 4 tablets (800 mg total) by mouth every 6 (six) hours as needed for pain. 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 If ineffective, may repeat once after 30 minutes. 30 tablet 05/08/2020 03/05/2024 methadone (DOLOPHINE) 5 mg tabletIndications:Card Grinder Helper alvino Pain/Nonacute Pain Take 0.5 tablets (2.5 mg total) by mouth 2 (two) times a day Indication: Chronic Pain/Nonacute Pain. 30 tablet 12/03/2023 01/12/2024 methadone dilution (DOLOPHINE) 0.5 mg/mL injection Take 5 mg by mouth. 09/30/2023 03/03/20 minocycline (DYNACIN) 100 mg tablet Take 100 mg by mouth 2 (two) times a day. 10/14/2023 03/03/2024 morphine 100 mg/5 mL (20 mg/mL) concentrated solution Take by mouth as needed. 12/21/2023 01/22/2024 nitroglycerin (Nitrostat) 0.[address] 0.4 mg under the tongue. 09/26/2023 03/03/2024 omeprazole (PriLOSEC) [address] capsule Take 1 capsule (20 mg total) by mouth every morning before breakfast. 30 capsule 3 09/26/2023 01/22/2024 pregabalin (LYRICA) 100 mg capsule Take 1 [...] morning. 03/05/2024 documented as of this encounter Plan of Treatment Upcoming Encounters Date Type Department Care Team (Latest Contact Info) Description 03/18/2024 9:15 AM CDT Appointment Department of Radiology, [facility], in [place], [place] [address] [place] [phone] Zeke Downey M.D. [address] [place] [phone] 03/23/2024 7:30 AM CDT Clinical Communication Virtual Review in [address] [phone] 03/24/2024 11:00 AM CDT Appointment Department of Radiology, [facility], in [place], [place] [address] [phone] Ned Alegria M.D. [address] [place] [phone] 03/24/2024 12:20 PM CDT Lab Department of Infusion Therapy in [place], [place] [address] [phone] Ned Alegria M.D. [address] [place] [phone] 03/24/2024 1:00 PM CDT Ancillary Procedure Department of Cardiovascular Medicine in [place], [place] [address] [place] [phone] Zeke Downey M.D. [address] [place] [phone] 03/24/2024 3:30 PM CDT Office Visit Department of Oncology in [address] [phone] Ned Alegria M.D. [address] [place] [phone] 04/14/2024 8:00 AM CDT Clinical Communication Virtual Review in [place], [place] [address] [place] [address] 04/19/2024 10:30 AM CDT Office Visit Department of Palliative Care in [address] [phone] Patti Rush B.Munira.B.S., B.M.B.Ch. [address] [place] [phone] 05/03/2024 9:30 AM CDT Appointment Division of Gastroenterology in [address] [phone] Corrina Jaime M.D. [address] [place] [phone] Drake Brennan M.D. [address] [place] [phone] documented as of this encounter Goals Goal Patient Goal Type Associated Problems Recent Progress Patient-Stated? Author Your pain? Symptom Management 9(11/20/2022 2:41 PM COOPER HELPER) No Fee-Girma Bush, RCandidoN., O.C.N. 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 No new metastatic foci. Interval decrease in the number of metastatic pulmonary nodules. However, there is indeterminant mild increased FDG activity in a few residual pulmonary metastatic foci. Narrative 12/24/2023 12:34 PM COOPER HELPER EXAM: ??PET CT SKULL TO THIGH FDG Serum glucose at time of F-18 FDG injection was 101 mg/dL. Patient followed standard dietary/fasting requirements for this exam. RADIOPHARMACEUTICAL/MEDS: Route: intravenous fludeoxyglucose F 18 injection CARE HOME (FDG F-18),14.8 millicurie TECHNIQUE: ??F-18 FDG PET/CT [...] RADIOPHARMACEUTICAL/MEDS: Route: intravenous fludeoxyglucose F 18 injection CARE HOME (FDG F-18),14.8 millicurie TECHNIQUE: F-18 FDG PET/CT [...] foci. Mere Lomeli P.A.-C. NM PRO CEDURES documented in this encounter [...] Dose Rate Site fludeoxyglucose F 18 injection CARE HOME (FDG F-18) 4.5-16.5 millicurie, intravenous, Once, On Fri12/24/23 at 1000, For 1 dose, Imaging Protocol Orders Given 12/24/2023 9:38 AM COOPER HELPER 14.8 millicuries heparin flush 500 Units 500 Units, intra-catheter, During hospitalization, line care, Prior to discharge, Starting on Fri12/24/23 at 0946, For 1 dose, Implanted Vascular Access Device (IVAD) Venous Non-Valved: Following saline flush prior to discharge. Given 12/24/2023 9:42 AM COOPER HELPER 500 Units sodium chloride 0.9 % injection 10 mL 10 mL, intravenous, During hospitalization, line care, Prior to discharge, Starting on Fri12/24/23 at 0946, For 1 dose, Implanted Vascular Access Device (IVAD) Venous Non-Valved: Followed by heparin flush prior to discharge. Given 12/24/2023 9:42 AM COOPER HELPER 10 mL documented in this encounter Additional Health Concerns Assessment Noted Time PHQ-9 Depression Total Score: 7 05/26/20 18 10:22 PM CDT documented as of this encounter Care Teams Aquatic Physiotherapist Relationship Specialty Start Date End Date Elsewhere, Pcp PCP - General Internal Medicine 10/14/22 documented as of this encounter
--- OUTSIDE RECORDS SUMMARY | 2024-03-16 16:44 | XMS_ITS | Encounter Summary ---
Author Name Unknown Organization [facility] Address [address] [place] [address] Care Team Providers Care Camera Mechanic Name Role Phone Elsewhere, Pcp Primary Care Provider Unavailabl e Encounter Details Date Type Department Care Team (Late st Contact Info) Description 12/17/2023 Clinical Communication Department of Palliative Care in [place], [place] [address] [place] [phone] Neela Siu R.N. [address] [place] [address] Social History Tobacco Use Types Packs/Day Years [...] (e.g., MA, MS, Ana Lilia, MEd, PATIENT ACCOUNT LIAISON, GORDO) 02/15/2022 Sex and Gender Information Value Date Recorded Sex Assigned at Male 04/23/2018 1:23 PM CDT Gender Identity Male 04/23/2018 1:23 PM CDT Sexual Orientation Straight 04/23/2018 1: 23 PM CDT documented as of this encounter Miscellaneous Notes * Telephone Encounter - Neela Siu, R.N. - 12/17/2023 4:41 PM HAND TOUCH UP PAINTER I spoke with PA team and [facility] pharmacy today. Granisetron 1 mg tabs were approved for $0 copay. Xiomara Blood from [facility] shared that the pharmacy will have to order in the medication and should be there 2/ or 2/2 at the latest. Luis has been updated with this information and has follow up scheduled for next week. TOUCH UP PAINTER documented in this encounter Plan of Treatment Upcoming Encounters Date Type Department Care Team (Latest Contact Info) Description 03/18/2024 9:15 AM CDT Appointment Department of Radiology, [facility], in [place], [place] [address] [place] [phone] Zeke Downey M.D. [address] [place] [phone] 03/23/2024 7:30 AM CDT Clinical Communication Virtual Review in [place], [place] 200 [place] [phone] 03/24/2024 11:00 AM CDT Appointment Department of Radiology, [facility], in [place], [place] [address] [place] [phone] Ned Alegria M.D. [address] [place] [phone] 03/24/2024 12:20 PM CDT Lab Department of Infusion Therapy in [place], [place] [address] [place] [phone] Ned Alegria M.D. [address] [place] [phone] 03/24/2024 1:00 PM CDT Ancillary Procedure Department of Cardiovascular Medicine in [place], [place] [address] [place] [phone] Zeke Downey M.D. [address] [place] [phone] 03/24/2024 3:30 PM CDT Office Visit Department of Oncology in [place], [place] [address] [place] [phone] Ned Alegria M.D. [address] [place] [phone] 04/14/2024 8:00 AM CDT Clinical Communication Virtual Review in [place], [place] [address] [place] [phone] 04/19/2024 10:30 AM CDT Office Visit Department of Palliative Care in [address] [phone] Patti Rush B.M.BCandidoS., B.M.B.Ch. [address] [place] [phone] 05/03/2024 9:30 AM CDT Appointment Division of Gastroenterology in [address] [phone] Corrina Jaime M.D. [address] [place] [phone] Drake Brennan M.D. [address] [place] [phone] documented as of this encounter Goals Goal Patient Goal Type Associated Problems Recent Progress Patient-Stated? Author Your pain? Symptom Management 9(11/20/2022 2:41 PM HAND TOUCH UP PAINTER) Raisa Ferguson-Girma Bush, R.N., O.C.N. Note: 05/24/2021: [...] documented as of this encounter Care Teams Camera Mechanic Relationship Specialty Start Date End Date Elsewhere, Pcp PCP - General Internal Medicine 10/14/22 documented as of this encounter
--- OUTSIDE RECORDS SUMMARY | 2024-03-16 16:44 | XMS_ITS | Encounter Summary ---
Author Name Unknown Organization [facility] Address [address] [place] [phone] Care Team Providers Care Bag Machine Set Up Operator Name Role Phone Elsewhere, Pcp Primary Care Provider Unavailabl e Reason for Visit * Reason Onset Date Comments Pre-visit Intake 12/23/2023 Encounter Details Date Type Department Care Team (Latest Contact Info) Description 12/23/2023 8:30 AM CAD LIBRARIAN Clinical Communication Virtual Review in [place], [place] [address] [place] [address] Pre-visit Intake Social History Tobacco Use Types [...] 04/25/2019 [facility] - Occupational Stress Questionnaire Answer Date [...] degree (e.g., MA, MS, Ana Lilia, MEd, MERCURY CRACKING TESTER, GORDO) 02/15/2022 Sex and Gender Information Value Date Recorded Sex Assigned at Male 04/23/2018 1:23 PM CDT Gender Identity Male 04/23/2018 1:23 PM CDT Sexual Orientation Straight 04/23/2018 1: 23 PM CDT documented as of this encounter Plan of Treatment Upcoming Encounters Date Type Department Care Team (Latest Contact Info) Description 03/18/2024 9:15 AM CDT Appointment Department of Radiology, [facility], in [place], [place] [address] [place] [phone] Zeke Downey M.D. [address] [place] [phone] 03/23/2024 7:30 AM CDT Clinical Communication Virtual Review in [place], [place] [address] [place] [phone] 03/24/2024 11:00 AM CDT Appointment Department of Radiology, [facility], in [place], [place] [address] [place] [phone] Ned Alegria M.D. [address] [place] [phone] 03/24/2024 12:20 PM CDT Lab Department of Infusion Therapy in [place], [place] [address] [place] [phone] Ned Alegria M.D. [address] [place] [phone] 03/24/2024 1:00 PM CDT Ancillary Procedure Department of Cardiovascular Medicine in [place], [place] [address] [place] [phone] Zeke Downey M.D. [address] [place] [phone] 03/24/2024 3:30 PM CDT Office Visit Department of Oncology in [place], [place] [address] [place] [phone] Ned Alegria M.D. [address] [place] [phone] 04/14/2024 8:00 AM CDT Clinical Communication Virtual Review in [place], [place] [address] [place] [phone] 04/19/2024 10:30 AM CDT Office Visit Department of Palliative Care in [place], [place] [address] [place] [phone] Patti Rush B.M.B.S., B.M.B.Ch. [address] [place] [phone] 05/03/2024 9:30 AM CDT Appointment Division of Gastroenterology in [place], [place] [address] [place] [phone] Corrina Jaime M.D. [address] [place] [phone] Drake Brennan M.D. [address] [place] [phone] documented as of this encounter Goals Goal Patient Goal Type Associated Problems Recent Progress Patient-Stated? Author Your pain? Symptom Management 9(11/20/2022 2:41 PM CAD LIBRARIAN) No Fee-Girma Bush, RCandidoN., O.C.N. Note: 05/24/2021: [...] Pain rating over the past 7 days: 710 Recommendations at initial call and response: Mr. [...] documented as of this encounter Care Teams Bag Machine Set Up Operator Relationship Specialty Start Date End Date Elsewhere, Pcp PCP - General Internal Medicine 10/14/22 documented as of this encounter
--- OUTSIDE RECORDS SUMMARY | 2024-03-16 16:44 | XMS_ITS | Encounter Summary ---
Author Name Unknown Organization [facility] Address [address] [place] [phone] Care Team Providers Care Cinnamon Grinder Name Role Phone Elsewhere, Pcp Primary Care Provider Unavailabl e Reason for Referral * Outpatient (Routine) - Authorized Specialty Diagnoses / Procedures Referred By Contac t Referred To Contact Oncology Ned Alegria M.D. [address] [place] [phone] [facility] Referral ID Status Reason Start Date Expiration Date V isits Requested Visits Authorized [id number] Authorized 12/24/2023 06/24/2025 1 1 IFIED BREASTFEEDING EDUCATOR * MRI/CAT/PET Scan (Routine) - Authorized Specialty Diagnoses / Procedures Referred By Contac t Referred To Contact Radiology Diagnoses Malignant Neoplasm Of Rectum (HCC) Procedures CT Abdomen Pelvis with IV Contrast Ned Alegria M.D. [address] [place] [phone] [facility] Referral ID Status Reason Start Date Expiration Date V isits Requested Visits Authorized [id number] Authorized 12/24/2023 12/23/2024 1 1 IFIED BREASTFEEDING EDUCATOR * MRI/CAT/PET Scan (Routine) - Authorized Specialty Diagnoses / Procedures Referred By Contac t Referred To Contact Radiology Diagnoses Malignant Neoplasm Of Rectum (HCC) Procedures CT Chest with IV Contrast Ned Alegria M.D. 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 [address] [place] [address] [facility] Referral ID Status Reason Start Date Expiration Date Visits Re quested Visits Authorized [id number] Closed 10/27/2023 10/26/2026 1 1 Encounter Details Date Type Department Care Team (Late st Contact Info) Description 12/24/2023 4:10 PM CERTIFIED BREASTFEEDING EDUCATOR Office Visit Department of Oncology in [place], [place] [address] [place] [address] Ned Alegria M.D. [address] [place] [address] Malignant Neoplasm Of Rectum (HCC); Secondary Malignant [...] How often do you attend chur or hoahaoism services? Never 02/03/2023 Do you [...] PHQ-2 Score 0 04/25/2019 [facility] of Occupat ional Health - Occupational Stress [...] degree (e.g., MA, MS, Ana Lilia, MEd, OPERATIONS SUPERVISOR, GORDO) 02/15/2022 Sex and Gender Information Value Date Recorded Sex Assigned at Male 04/23/2018 1:23 PM CDT Gender Identity Male 04/23/2018 1:23 PM CDT Sexual Orientation Straight 04/23/2018 1: 23 PM CDT documented as of this encounter Last Filed Vital Signs Vital Sign Reading Time Taken Comments Blood Pressure 122/81 12/24/2023 4:08 PM CERTIFIED BREASTFEEDING EDUCATOR Pulse 133 12/24/2023 4:08 PM CERTIFIED BREASTFEEDING EDUCATOR Temperature 36.5 ??C (97.7 ??F) 12/24/2023 4 :08 PM CERTIFIED BREASTFEEDING EDUCATOR Respiratory Rate 16 12/24/2023 4:08 PM CERTIFIED BREASTFEEDING EDUCATOR Oxygen Saturation 98% 12/24/2023 4:0 8 PM CERTIFIED BREASTFEEDING EDUCATOR Inhaled Oxygen Concentration - - Weight 78.7 kg (173 lb 8 oz) 12/24/2023 4:08 PM CERTIFIED BREASTFEEDING EDUCATOR pts states that today's wt is correct Height 179.3 cm (5' 10.59) 12/24/2023 4:08 PM CERTIFIED BREASTFEEDING EDUCATOR Body Mass Index 24.48 12/24/2023 4:08 PM CERTIFIED BREASTFEEDING EDUCATOR documented in this encounter Progress Notes * Ned Alegria M.D. - 12/24/2023 4:10 PM CST SUBJECTIVE PRIMARY CARE PHYSICIAN ELSEWHERE, PCP LOCAL ONCOLOGIST No care steam and gas turbines assembler to display PRIMARY TORRANCE ONCOLOGIST Giorgio Fishman M.D. CHIEF COMPLAINT / REASON FOR VISIT Luis Tabares is a 43 y.o. male from [facility] with metastatic rectal cancer. HISTORY OF PRESENT ILLNESS Oncology History He was initially diagnosed in April 2018 with locally advanced rectal cancer that was treated with long course radiation (28 fraction, 64.4 Gy) with capecitabine, followed by laparoscopic proctectomy with colo anal anastomosis ([id number]), which was then followed by adjuvant FLOX [...] to missed doses. 07/31/2023 Repeat evaluation by [facility] He would significant right upper quadrant [...] chest abdomen pelvis with IV contrast at [facility] 1. Numerous progressive pulmonary nodules [...] and they expressed understanding appreciation and agreement. IFIED BREASTFEEDING EDUCATOR documented in this encounter Plan of Treatment Upcoming Encounters Date Type Department Care Team (Latest Contact Info) Description 03/18/2024 9:15 AM CDT Appointment Department of Radiology, [facility], in [place] [address] [place] [phone] Zeke Downey M.D. [address] [place] [phone] 03/23/2024 7:30 AM CDT Clinical Communication Virtual Review in [place], [place] [address] [place] [address] 03/24/2024 11:00 AM CDT Appointment Department of Radiology, [facility], in [place], [place] [address] [place] [phone] Ned Alegria M.D. [address] [place] [phone] 03/24/2024 12:20 PM CDT Lab Department of Infusion Therapy in [place], [place] [address] [place] [phone] Ned Alegria M.D. [address] [place] [phone] 03/24/2024 1:00 PM CDT Ancillary Procedure Department of Cardiovascular Medicine in [place], [place] [address] [place] [phone] Zeke Downey M.D. [address] [place] [phone] 03/24/2024 3:30 PM CDT Office Visit Department of Oncology in [place], [place] [address] [place] [phone] Ned Alegria M.D. [address] [place] [phone] 04/14/2024 8:00 AM CDT Clinical Communication Virtual Review in [place], [place] [address] [place] [address] 04/19/2024 10:30 AM CDT Office Visit Department of Palliative Care in [place], [place] [address] [place] [phone] Patti Rush B.M.B.S., B.M.B.Ch. [address] [place] [phone] 05/03/2024 9:30 AM CDT Appointment Division of Gastroenterology in [place], [place] [address] [place] [phone] Corrina Jaime M.D. [address] [place] [phone] Drake Brennan M.D. [address] [place] [phone] Scheduled Orders Name Type Priority Associated Diagnoses [...] Your pain? Symptom Management 9(11/20/2022 2:41 PM CERTIFIED BREASTFEEDING EDUCATOR) No Fee-Girma Bush, RCandidoN., O.C.N. Note: 05/24/2021: [...] documented as of this encounter Care Teams Cinnamon Grinder Relationship Specialty Start Date End Date Elsewhere, Pcp PCP - General Internal Medicine 10/14/22 documented as of this encounter
--- OUTSIDE RECORDS SUMMARY | 2024-03-16 16:44 | XMS_ITS | Encounter Summary ---
Author Name Unknown Organization [facility] Address [address] [place] [address] Care Team Providers Care Restaurant Greeter Name Role Phone Elsewhere, Pcp Primary Care Provider Unavailabl e Reason for Visit * Reason Comments Med Refill pantoprazole Encounter Details Date Type Department Care Team ([facility] st Contact Info) Description 12/10/2023 Refill Department of Oncology in [place], [place] [address] [place] [address] Giorgio Fishman M.D. [address] [place] [phone] Med Refill ( pantoprazole) Social History Tobacco [...] 0 04/25/2019 [facility] Occupat ional [facility] - Occupational Stress Questionnaire Answer Date [...] degree (e.g., MA, MS, Ana Lilia, MEd, ICT QUALITY ASSURANCE ENGINEER, GORDO) 02/15/2022 Sex and Gender Information Value Date Recorded Sex Assigned at Male 04/23/2018 1:23 PM CDT Gender Identity Male 04/23/2018 1:23 PM CDT Sexual Orientation Straight 04/23/2018 1: 23 PM CDT documented as of this encounter Plan of Treatment Upcoming Encounters Date Type Department Care Team (Latest Contact Info) Description 03/18/2024 9:15 AM CDT Appointment Department of Radiology, [facility], in [place], [place] [address] [place] [address] Zeke Downey M.D. [address] [place] [address] 03/23/2024 7:30 AM CDT Clinical Communication Virtual Review in [place], [place] 200 [place] [phone] 03/24/2024 11:00 AM CDT Appointment Department of Radiology, [facility], in [place], [place] [address] [place] [phone] Ned Alegria M.D. [address] [place] [phone] 03/24/2024 12:20 PM CDT Lab Department of Infusion Therapy in [place], [place] [address] [place] [phone] Ned Alegria M.D. [address] [place] [phone] 03/24/2024 1:00 PM CDT Ancillary Procedure Department of Cardiovascular Medicine in [place], [place] [address] [place] [phone] Zeke Downey M.D. [address] [place] [phone] 03/24/2024 3:30 PM CDT Office Visit Department of Oncology in [address] [phone] Ned Alegria M.D. [address] [place] [phone] 04/14/2024 8:00 AM CDT Clinical Communication Virtual Review in [address] [phone] 04/19/2024 10:30 AM CDT Office Visit Department of Palliative Care in [address] [phone] Patti Rush B.M.B.S., B.M.B.Ch. [address] [place] [phone] 05/03/2024 9:30 AM CDT Appointment Division of Gastroenterology in [place], [place] [address] [place] [phone] Corrina Jaime M.D. [address] [place] [phone] Drake Brennan M.D. [address] [place] [phone] documented as of this encounter Goals Goal Patient Goal Type Associated Problems Recent Progress Patient-Stated? Author Your pain? Symptom Management 9(11/20/2022 2:41 PM REGIONAL SALES LEADER) Girma Gaspar R.N., O.C.N. Note: 05/24/2021: Pain algorithm completed. WILLOW [...] documented as of this encounter Care Teams Restaurant Greeter Relationship Specialty Start Date End Date Elsewhere, Pcp PCP - General Internal Medicine 10/14/22 documented as of this encounter
[2024-03-16] MEDS: HYDROmorphone 0.5 mg/0.5 ml inj 2 MG IVP ×2 (16:58→18:49)
[2024-03-16] MEDS: PROCHLORPERAZINE 5 MG/ML VIAL 10 MG IV (17:05)
[2024-03-16 17:10] LABS: HCO3 VBG 26 mmol/L (21-28); Lactate Sepsis w/Reflex* 1.2 mmol/L (0.5-1.9); PCO2 VBG 37 mmHG (40-50); PO2 VBG < 30.1 mmHG (25-47); pH VBG 7.461 (7.32-7.43)
[2024-03-16 17:13] LABS: Basophils Absolute Auto 0.03 K/uL (0.00-0.30); Basophils Percent Auto 0.6 % (0.0-3.0); Eosinophils Absolute Auto 0.19 K/uL (0.00-0.50); Hemoglobin* 13.1 gm/dL (13.5-17.5); Immature Granulocytes Abs Auto 0.01 K/uL (0.00-0.30); Immature Granulocytes Pct Auto 0.2 %; Lymphocytes Percent Auto 11.8 % (20-44); Mean Corpuscular HGB Conc 32 gm/dL (32-36); Mean Corpuscular Hemoglobin 27 pg (26-34); Mean Corpuscular Volume 84 fL (80-100); Monocytes Percent Auto 14.6 % (0.0-11.0); Neutrophils Absolute Auto 3.25 K/uL (1.7-7.0); Neutrophils Percent Auto 68.8 % (42.0-72.0); Platelet Count* 73 K/uL (140-440); RDW Coefficient of Variation % 14.9 % (11.5-15.5); Red Blood Count 4.87 m/uL (4.30-5.90); White Blood Count* 4.73 K/uL (4.50-11.00)
[2024-03-16 17:17] LABS: Slide Review Reflex No
[2024-03-16 17:27] LABS: Potassium* 4.4 mmol/L (3.6-5.1); Sodium* 131 mmol/L (135-149)
[2024-03-16 17:28] LABS: INR 0.95 (0.91-1.10); Prothrombin Time 13.3 Seconds
[2024-03-16 17:29] LABS: Albumin* 3.5 g/dL (3.3-5.0); Chloride* 98 mmol/L (96-114)
[2024-03-16 17:30] LABS: Creatinine* 0.5 mg/dL (0.5-1.5); Est. Creatinine Clearance* 198.71; Estimated Glomerular Filt Rate 128 ml/min
[2024-03-16 17:31] LABS: Anion Gap 7 mEq/L (7-15); Aspartate Amino Transferase* 97 U/L (12-35); Bilirubin Direct* 0.9 mg/dL (0.0-0.5); Bilirubin Total* 1.9 mg/dL (0.1-1.5); Blood Urea Nitrogen* 10 mg/dL (5-24); Carbon Dioxide* 26 mmol/L (20-32); Glucose* 102 mg/dL (60-115); Total Protein* 6.2 g/dL (6.0-8.3)
[2024-03-16 17:32] LABS: Alanine Aminotransferase* 113 U/L (4-50); Alkaline Phosphatase* 754 U/L (40-150); Lipase* 48 U/L (23-300)
[2024-03-16 17:34] LABS: C Reactive Protein* 5.1 mg/dL (0.5-1.0)
[2024-03-16 17:41] LABS: NT Pro B Type NatriureticPept* < 20 pg/mL
[2024-03-16] MEDS: HEPARIN 500 UNIT/5 ML SYRINGE IVF (18:58)
== END 2024-03-16 19:30 | disposition home or self-care (01) ==
PROVIDERS: Emergency Provider Emergency Medicine; PCP Family Medicine
DX: R06.02 Shortness of breath (principal)
CPT/HCPCS: 36415; 71275; 80048; 80076; 82803; 83605; 83690; 83880; 84484; 85025; 85610; 86140; 96374; 96375; 96376; 99284; 99285; J0780; J1170; J1642; Q9967

== ENCOUNTER 2024-04-30 14:30 | Outpatient (RCR) | payer BC, SELFPAY ==
[2024-01-05 12:50] VITALS: BP 127/81; PULSE 117; RESP 16; TEMP 36.6; O2SAT 99
[2024-01-05] MEDS: 0.9 % SODIUM CHLORIDE 1000 ml 1,000 ML IV (13:08)
[2024-01-05] MEDS: POTASSIUM CHLORIDE 10 MEQ/100 ML PIGGYBACK 100 MEQ IVPB ×2 (13:50→15:00)
--- NOTE | 2024-01-05 15:53 | ONC.NURNOTE ---
Pt here today for IVF. VSS. Pt continues to have ongoing diarrhea throughout the day with eating/drinking. Pain improved from last week. Pt states he has been taking lomotil, instructed pt he can take 1 lomotil up to 3 times a day and he could add imodium to that if needed. Potassium came back 3.0 today, orders for 20meq potassium IV received from Celine Chappell APRN and she also instructed to have pt take potassium 20meq PO twice daily from daily until recheck on 01/07/24. Pt agreeable to plan of care.
[2024-01-05] MEDS: SODIUM CHLORIDE 0.9 % (FLUSH) 10 ML SYRINGE IVF (16:21)
[2024-01-05] MEDS: HEPARIN 500 UNIT/5 ML SYRINGE IVF (16:21)
[2024-01-07 09:03] VITALS: BP 129/86; PULSE 127; RESP 18; TEMP 36.1; O2SAT 98
[2024-01-07] MEDS: 0.9 % SODIUM CHLORIDE 1000 ml 1,000 ML IV (09:17)
[2024-01-07] MEDS: SODIUM CHLORIDE 0.9 % (FLUSH) 10 ML SYRINGE IVF ×2 (09:18→10:25)
[2024-01-07 09:21] LABS: Basophils Percent Auto 0.2 % (0.0-3.0); Eosinophils Percent Auto 1.3 % (0.0-7.0); Hematocrit 42.7 % (37.0-53.0); Hemoglobin* 13.7 gm/dL (13.5-17.5); Immature Granulocytes Pct Auto 0.8 %; Lymphocytes Percent Auto 4.7 % (20-44); Mean Corpuscular HGB Conc 32 gm/dL (32-36); Mean Corpuscular Hemoglobin 29 pg (26-34); Mean Corpuscular Volume 91 fL (80-100); Monocytes Percent Auto 7.9 % (0.0-11.0); Neutrophils Percent Auto 85.1 % (42.0-72.0); Platelet Count* 97 K/uL (140-440); RDW Coefficient of Variation % 15.6 % (11.5-15.5); Red Blood Count 4.71 m/uL (4.30-5.90); White Blood Count* 13.96 K/uL (4.50-11.00)
[2024-01-07 09:26] LABS: Slide Review Reflex No
[2024-01-07 09:37] LABS: Albumin* 3.7 g/dL (3.3-5.0)
[2024-01-07 09:38] LABS: Chloride* 98 mmol/L (96-114); Potassium* 3.5 mmol/L (3.6-5.1); Sodium* 129 mmol/L (135-149)
[2024-01-07 09:40] LABS: Anion Gap 6 mEq/L (7-15); Aspartate Amino Transferase* 54 U/L (12-35); Bilirubin Total* 0.9 mg/dL (0.1-1.5); Carbon Dioxide* 25 mmol/L (20-32); Creatinine* 0.4 mg/dL (0.5-1.5); Estimated Glomerular Filt Rate 137 ml/min; Total Protein* 6.3 g/dL (6.0-8.3)
[2024-01-07 09:41] LABS: Alanine Aminotransferase* 114 U/L (4-50); Alkaline Phosphatase* 501 U/L (40-150); Blood Urea Nitrogen* 7 mg/dL (5-24); Glucose* 119 mg/dL (60-115)
[2024-01-07] MEDS: HEPARIN 500 UNIT/5 ML SYRINGE IVF (10:25)
[2024-01-12 11:32] VITALS: BP 122/84; PULSE 118; RESP 18; TEMP 36; O2SAT 100
[2024-01-12 11:56] LABS: Basophils Absolute Auto 0.04 K/uL (0.00-0.30); Basophils Percent Auto 0.4 % (0.0-3.0); Eosinophils Absolute Auto 0.16 K/uL (0.00-0.50); Eosinophils Percent Auto 1.7 % (0.0-7.0); Hematocrit 39.7 % (37.0-53.0); Hemoglobin* 12.9 gm/dL (13.5-17.5); Immature Granulocytes Abs Auto 0.02 K/uL (0.00-0.30); Immature Granulocytes Pct Auto 0.2 %; Lymphocytes Percent Auto 8.8 % (20-44); Mean Corpuscular HGB Conc 33 gm/dL (32-36); Mean Corpuscular Hemoglobin 29 pg (26-34); Mean Corpuscular Volume 90 fL (80-100); Monocytes Percent Auto 7.2 % (0.0-11.0); Neutrophils Percent Auto 81.7 % (42.0-72.0); Platelet Count* 95 K/uL (140-440); RDW Coefficient of Variation % 14.9 % (11.5-15.5); White Blood Count* 9.17 K/uL (4.50-11.00)
[2024-01-12] MEDS: 0.9 % SODIUM CHLORIDE 1000 ml 1,000 ML IV (11:56)
[2024-01-12] MEDS: SODIUM CHLORIDE 0.9 % (FLUSH) 10 ML SYRINGE IVF (11:57)
[2024-01-12 12:04] LABS: Slide Review Reflex No
[2024-01-12 12:27] LABS: Albumin* 3.7 g/dL (3.3-5.0); Chloride* 101 mmol/L (96-114); Potassium* 3.1 mmol/L (3.6-5.1); Sodium* 132 mmol/L (135-149)
[2024-01-12 12:29] LABS: Bilirubin Total* 1.1 mg/dL (0.1-1.5); Creatinine* 0.4 mg/dL (0.5-1.5); Estimated Glomerular Filt Rate 137 ml/min
[2024-01-12 12:30] LABS: Alanine Aminotransferase* 115 U/L (4-50); Alkaline Phosphatase* 542 U/L (40-150); Anion Gap 7 mEq/L (7-15); Aspartate Amino Transferase* 66 U/L (12-35); Blood Urea Nitrogen* 4 mg/dL (5-24); Calcium* 8.9 mg/dL (8.4-10.6); Carbon Dioxide* 24 mmol/L (20-32); Glucose* 99 mg/dL (60-115); Total Protein* 6.3 g/dL (6.0-8.3)
[2024-01-12 12:31] LABS: Magnesium* 1.6 mg/dL (1.5-2.6)
[2024-01-12] MEDS: POTASSIUM CHLORIDE 10 MEQ/100 ML PIGGYBACK 100 MEQ IVPB ×2 (13:07→14:04)
--- NOTE | 2024-01-12 13:43 | PC.NURSE ---
Pt present at [facility] for labs and IVF. K 3.1. Pt states that he is not feeling well. He had diarrhea yesterday and has had a very poor appetite. He also has ongoing abdominal pain and n/v associated with eating. Luis is down in weight. Discussed with Celine Vazquez APRN and 20 mEq of potassium was ordered. Pt will be back on Friday for MD visit and chemo. KATYA Li updated.
[2024-01-14] MEDS: 0.9 % SODIUM CH + KCL 20 mEq/L 1,000 ML 500 ML IV (09:15)
[2024-01-14] MEDS: PALONOSETRON 0.25 MG/5 ML inj IV (11:20)
[2024-01-14] MEDS: dexAMETHasone 10 MG in 0.9 % SODIUM CHLORIDE 100 ml 100 ML 404 MG IVPB (11:20)
[2024-01-14] MEDS: 0.9 % SODIUM CHLORIDE 250 ml IV (11:30)
[2024-01-14] MEDS: HEPARIN 500 UNIT/5 ML SYRINGE IVF (11:30)
[2024-01-14] MEDS: FOSAPREPITANT 150 MG inj 150 MG in 0.9 % SODIUM CHLORIDE 250 ml 250 ML 800 MG IVPB (11:44)
[2024-01-14] MEDS: SODIUM CHLORIDE 0.9 % (FLUSH) 10 ML SYRINGE IVF (14:25)
[2024-01-15 14:38] VITALS: BP 113/70; PULSE 133; RESP 16; TEMP 36.3; O2SAT 96
[2024-01-15] MEDS: PEGFILGRASTIM-JMDB (Fulphila) 6 MG/0.6 ML SUBCUT (14:42)
[2024-01-16 09:31] VITALS: BP 115/77; PULSE 113; RESP 16; TEMP 35.7; O2SAT 100
[2024-01-16] MEDS: 0.9 % SODIUM CHLORIDE 1000 ml 1,000 ML IV (10:07)
[2024-01-16 10:13] LABS: Chloride* 103 mmol/L (96-114); Potassium* 3.2 mmol/L (3.6-5.1); Sodium* 134 mmol/L (135-149)
[2024-01-16 10:15] LABS: Creatinine* 0.5 mg/dL (0.5-1.5); Estimated Glomerular Filt Rate 128 ml/min
[2024-01-16 10:16] LABS: Anion Gap 10 mEq/L (7-15); Blood Urea Nitrogen* 10 mg/dL (5-24); Calcium* 8.9 mg/dL (8.4-10.6); Carbon Dioxide* 21 mmol/L (20-32); Glucose* 185 mg/dL (60-115)
[2024-01-16] MEDS: POTASSIUM CHLORIDE 10 MEQ/100 ML PIGGYBACK 100 MEQ IVPB ×2 (10:46→11:48)
[2024-01-16] MEDS: HEPARIN 500 UNIT/5 ML SYRINGE IVF (12:54)
[2024-01-16] MEDS: SODIUM CHLORIDE 0.9 % (FLUSH) 10 ML SYRINGE IVF (12:54)
--- NOTE | 2024-01-16 14:26 | ONC.NURNOTE ---
Pt here for IVF. K-3.2, pt received 20meq IV potassium in addition to 1 L NS. Pt c/o pain in bilat feet r/t dry skin/sores. When examining pt's feet he does have a 0.75 inch scab/dry skin area on bilateral heals that is painful, which is similar to the cracked skin/sores on his hands. Pt states he has not been putting any moisturizer on his feet or hands. Pt states he has been taking the doxicycline. Pt also states lateral sides of bilateral big toe nails are sore, possibly has an ingrown toe nail. Encouraged pt to keep taking doxicycline and to see his primary care if the toe nails worsen. Discussed with Celine Chappell APRN, she encouraged pt to use moisturizers with urea (udder cream, vanicream, etc). Pt states he has moisturizers at home that he will start using.
[2024-01-22] MEDS: 0.9 % SODIUM CHLORIDE 1000 ml 1,000 ML IV (08:49)
[2024-01-22 08:50] LABS: Basophils Percent Auto 0.2 % (0.0-3.0); Eosinophils Percent Auto 0.8 % (0.0-7.0); Hematocrit 40.3 % (37.0-53.0); Hemoglobin* 12.9 gm/dL (13.5-17.5); Immature Granulocytes Pct Auto 0.7 %; Lymphocytes Percent Auto 4.9 % (20-44); Mean Corpuscular HGB Conc 32 gm/dL (32-36); Mean Corpuscular Hemoglobin 29 pg (26-34); Mean Corpuscular Volume 90 fL (80-100); Monocytes Percent Auto 4.8 % (0.0-11.0); Neutrophils Percent Auto 88.6 % (42.0-72.0); Platelet Count* 75 K/uL (140-440); RDW Coefficient of Variation % 15.2 % (11.5-15.5); Red Blood Count 4.49 m/uL (4.30-5.90); White Blood Count* 16.54 K/uL (4.50-11.00)
[2024-01-22 08:51] LABS: Slide Review Reflex No
[2024-01-22 08:58] VITALS: BP 117/77; PULSE 122; RESP 16; TEMP 36; O2SAT 98
[2024-01-22 09:07] LABS: Albumin* 3.5 g/dL (3.3-5.0); Chloride* 103 mmol/L (96-114); Potassium* 3.4 mmol/L (3.6-5.1); Sodium* 133 mmol/L (135-149)
[2024-01-22 09:10] LABS: Alanine Aminotransferase* 155 U/L (4-50); Alkaline Phosphatase* 551 U/L (40-150); Anion Gap 5 mEq/L (7-15); Aspartate Amino Transferase* 72 U/L (12-35); Bilirubin Total* 0.6 mg/dL (0.1-1.5); Blood Urea Nitrogen* 7 mg/dL (5-24); Carbon Dioxide* 25 mmol/L (20-32); Creatinine* 0.4 mg/dL (0.5-1.5); Estimated Glomerular Filt Rate 137 ml/min; Glucose* 156 mg/dL (60-115); Total Protein* 5.9 g/dL (6.0-8.3)
[2024-01-22 09:11] LABS: Calcium* 8.8 mg/dL (8.4-10.6)
[2024-01-22] MEDS: HEPARIN 500 UNIT/5 ML SYRINGE IVF (10:03)
[2024-01-22] MEDS: SODIUM CHLORIDE 0.9 % (FLUSH) 10 ML SYRINGE IVF (10:03)
--- NOTE | 2024-01-22 11:27 | ONC.NURNOTE ---
Pt here for labs, IVF. Pt states he has not had diarrhea last 2 days. Taking potassium supplement BID without difficulty. Potassium came back 3.4 today, per Celine Vazquez APRN- no potassium IV replacement needed today. Pt states Bilat big toes are still painful. Pt encouraged to go to primary care to be evaluated prior to next cycle of chemo. Pt verbalized understanding.
--- NOTE | 2024-01-22 14:42 | URNOTE ---
?Request received for authorization for PEGFILGRASTIM-BRYCE (DARIN) ([id number]). Prior authorization is not required Date range:?01/29/2024-01/28/2025, [facility] Certification Number: [id number]
[2024-01-26 12:36] LABS: Basophils Percent Auto 0.3 % (0.0-3.0); Hematocrit 40.2 % (37.0-53.0); Hemoglobin* 12.8 gm/dL (13.5-17.5); Immature Granulocytes Pct Auto 0.3 %; Lymphocytes Percent Auto 7.7 % (20-44); Mean Corpuscular HGB Conc 32 gm/dL (32-36); Mean Corpuscular Hemoglobin 29 pg (26-34); Mean Corpuscular Volume 90 fL (80-100); Monocytes Percent Auto 7.8 % (0.0-11.0); Neutrophils Percent Auto 82.9 % (42.0-72.0); Platelet Count* 93 K/uL (140-440); RDW Coefficient of Variation % 15.1 % (11.5-15.5); Red Blood Count 4.49 m/uL (4.30-5.90)
[2024-01-26 12:42] LABS: Slide Review Reflex No
[2024-01-26 12:54] LABS: Albumin* 3.6 g/dL (3.3-5.0); Chloride* 104 mmol/L (96-114); Potassium* 3.5 mmol/L (3.6-5.1); Sodium* 134 mmol/L (135-149)
[2024-01-26 12:55] LABS: Magnesium* 1.7 mg/dL (1.5-2.6)
[2024-01-26 12:56] LABS: Creatinine* 0.5 mg/dL (0.5-1.5); Estimated Glomerular Filt Rate 128 ml/min
[2024-01-26 12:57] LABS: Alanine Aminotransferase* 140 U/L (4-50); Alkaline Phosphatase* 478 U/L (40-150); Anion Gap 2 mEq/L (7-15); Aspartate Amino Transferase* 63 U/L (12-35); Bilirubin Total* 0.9 mg/dL (0.1-1.5); Blood Urea Nitrogen* 7 mg/dL (5-24); Carbon Dioxide* 28 mmol/L (20-32); Glucose* 120 mg/dL (60-115); Total Protein* 6.2 g/dL (6.0-8.3)
[2024-01-27 09:57] LABS: Amylase* 65 U/L (18-89); Lipase* 58 U/L (23-300); Magnesium* 1.8 mg/dL (1.5-2.6)
[2024-01-28 08:39] VITALS: BP 116/78; PULSE 119; RESP 16; TEMP 35.7; O2SAT 100
[2024-01-28] MEDS: PALONOSETRON 0.25 MG/5 ML inj IV (09:17)
[2024-01-28] MEDS: dexAMETHasone 10 MG in 0.9 % SODIUM CHLORIDE 100 ml 100 ML 404 MG IVPB (09:17)
[2024-01-28] MEDS: FOSAPREPITANT 150 MG inj 150 MG in 0.9 % SODIUM CHLORIDE 250 ml 250 ML 800 MG IVPB (09:35)
[2024-01-28] MEDS: 0.9 % SODIUM CHLORIDE 250 ml IV (10:52)
[2024-01-28] MEDS: SODIUM CHLORIDE 0.9 % (FLUSH) 10 ML SYRINGE IVF ×2 (10:53→12:15)
[2024-01-28] MEDS: HEPARIN 500 UNIT/5 ML SYRINGE IVF (12:15)
[2024-01-29 13:24] VITALS: BP 135/84; PULSE 83; RESP 16; TEMP 36.2; O2SAT 95
[2024-01-29] MEDS: PEGFILGRASTIM-JMDB (Fulphila) 6 MG/0.6 ML SUBCUT (13:25)
[2024-02-01 04:55] LABS: Adenovirus PCR Not Detected; Astrovirus PCR Not Detected; Campylobacter PCR Not Detected; Cryptosporidium PCR Not Detected; Cyclospora cayetanensis PCR Not Detected; Entamoeba histolytica PCR Not Detected; Enteroaggregative E coli PCR Not Detected; Enteropathogenic E coli PCR Not Detected; Enterotoxigenic E coli PCR Not Detected; Giardia lamblia PCR Not Detected; Norovirus Gi/GII PCR Not Detected; Plesiomonas shig PCR Not Detected; Rotavirus A PCR Not Detected; Salmonella PCR Not Detected; Sapovirus PCR Not Detected; Shiga toxin E coli PCR Not Detected; Shigella/Enteroinvasive E coli Not Detected; Vibrio PCR Not Detected; Vibrio cholerae PCR Not Detected; Yersinia enterocolitica PCR Not Detected
--- NOTE | 2024-02-06 09:47 | ONC.NURNOTE ---
Patient called to report ongoing nausea, vomiting and diarrhea andrecent development of LE foot/ankle edema bilaterally no pain or redness requesting IV hydration and lab check today
[2024-02-06 13:08] VITALS: BP 112/80; PULSE 122; RESP 16; TEMP 36.3; O2SAT 99
[2024-02-06] MEDS: 0.9 % SODIUM CHLORIDE 1000 ml 1,000 ML IV (13:33)
[2024-02-06] MEDS: SODIUM CHLORIDE 0.9 % (FLUSH) 10 ML SYRINGE IVF ×2 (13:34→18:44)
[2024-02-06 14:01] LABS: Albumin* 3.8 g/dL (3.3-5.0); Chloride* 104 mmol/L (96-114); Sodium* 137 mmol/L (135-149)
[2024-02-06 14:03] LABS: Bilirubin Total* 0.6 mg/dL (0.1-1.5); Creatinine* 0.4 mg/dL (0.5-1.5); Estimated Glomerular Filt Rate 137 ml/min
[2024-02-06 14:04] LABS: Alanine Aminotransferase* 131 U/L (4-50); Alkaline Phosphatase* 623 U/L (40-150); Anion Gap 7 mEq/L (7-15); Aspartate Amino Transferase* 65 U/L (12-35); Blood Urea Nitrogen* 5 mg/dL (5-24); Calcium* 9.1 mg/dL (8.4-10.6); Carbon Dioxide* 26 mmol/L (20-32); Glucose* 147 mg/dL (60-115); Total Protein* 6.4 g/dL (6.0-8.3)
[2024-02-06 14:05] LABS: Potassium* 2.9 mmol/L (3.6-5.1)
[2024-02-06] MEDS: POTASSIUM CHLORIDE 10 MEQ/100 ML PIGGYBACK 100 MEQ IVPB ×4 (14:27→17:44)
--- NOTE | 2024-02-06 16:41 | ONC.NURNOTE ---
Report given to William at 1609 on medical surgical floor Patient to brought to room 243 to finish second bag of potassium and continue to get 2 more 10meq bags.
[2024-02-06] MEDS: HEPARIN 500 UNIT/5 ML SYRINGE IVF (18:44)
--- NOTE | 2024-02-06 18:52 | PC.NURSE ---
Pt came to Med/Surg floor to continue Potassium infusion at 16[facility] After infusion Pt was heparinized and Port was deaccessed.
[2024-02-09] MEDS: 0.9 % SODIUM CHLORIDE 1000 ml 1,000 ML IV (13:18)
[2024-02-09 13:35] LABS: Chloride* 104 mmol/L (96-114); Potassium* 3.2 mmol/L (3.6-5.1); Sodium* 136 mmol/L (135-149)
[2024-02-09 13:37] LABS: Creatinine* 0.5 mg/dL (0.5-1.5); Estimated Glomerular Filt Rate 128 ml/min
[2024-02-09 13:38] LABS: Anion Gap 6 mEq/L (7-15); Blood Urea Nitrogen* 6 mg/dL (5-24); Calcium* 8.5 mg/dL (8.4-10.6); Carbon Dioxide* 26 mmol/L (20-32); Glucose* 107 mg/dL (60-115)
[2024-02-09] MEDS: POTASSIUM CHLORIDE 10 MEQ/100 ML PIGGYBACK 100 MEQ IVPB ×2 (14:07→15:10)
--- NOTE | 2024-02-09 14:53 | ONC.NURNOTE ---
Pt here for BMP and IVF. K 3.2. Pt reports his hydration routine is (3) 20 oz Gatorade and (2) 20 oz electrolyte water. He is having 4-5 loose, watery stools/day with using Lomotil 2x/day. Lomotil dose increased per Celine W. HOME THEATER EXPERT; increased range from 1 pill to 1-2 pills up to 4x/day. Pt also tolerating Kcl Oral in pill form 2x/day. Per Celine, increased to 3x/day for this week. Return to [facility] for BMP/IVF/electrolyte on Fri and Fri this week. Pt in agreement with this plan.
[2024-02-09 15:48] VITALS: BP 121/84; PULSE 116; RESP 18; O2SAT 99
[2024-02-09] MEDS: SODIUM CHLORIDE 0.9 % (FLUSH) 10 ML SYRINGE IVF (16:24)
[2024-02-09] MEDS: HEPARIN 500 UNIT/5 ML SYRINGE IVF (16:24)
[2024-02-11] MEDS: SODIUM CHLORIDE 0.9 % (FLUSH) 10 ML SYRINGE IVF ×2 (11:38→13:13)
[2024-02-11 11:51] LABS: Chloride* 105 mmol/L (96-114); Potassium* 3.8 mmol/L (3.6-5.1); Sodium* 135 mmol/L (135-149)
[2024-02-11 11:53] LABS: Creatinine* 0.4 mg/dL (0.5-1.5); Estimated Glomerular Filt Rate 137 ml/min
[2024-02-11 11:54] LABS: Anion Gap 2 mEq/L (7-15); Blood Urea Nitrogen* 6 mg/dL (5-24); Calcium* 8.9 mg/dL (8.4-10.6); Carbon Dioxide* 28 mmol/L (20-32); Glucose* 85 mg/dL (60-115)
[2024-02-11] MEDS: 0.9 % SODIUM CHLORIDE 1000 ml 1,000 ML IV (12:05)
[2024-02-11] MEDS: HEPARIN 500 UNIT/5 ML SYRINGE IVF (13:13)
[2024-02-13 09:30] VITALS: BP 130/90; PULSE 130; RESP 18; TEMP 36.4; O2SAT 100
[2024-02-13 10:12] LABS: Chloride* 105 mmol/L (96-114); Sodium* 136 mmol/L (135-149)
[2024-02-13 10:13] LABS: Potassium* 3.6 mmol/L (3.6-5.1)
[2024-02-13 10:15] LABS: Anion Gap 6 mEq/L (7-15); Carbon Dioxide* 25 mmol/L (20-32); Creatinine* 0.4 mg/dL (0.5-1.5); Estimated Glomerular Filt Rate 137 ml/min
[2024-02-13 10:16] LABS: Blood Urea Nitrogen* 9 mg/dL (5-24); Glucose* 166 mg/dL (60-115)
--- NOTE | 2024-02-13 10:38 | PC.NURSE ---
Pt present at [facility] for labs and possible fluids and possible electrolyte replacement. Labs and assessment done. Pt reports no diarrhea or n/v since friday of this week. He is not feeling the need for fluids and would prefer going home if no potassium needed. K=3.6. Pt encouraged to drink fluids and electrolytes on his trip to [place]. Also, as previously discussed this week, Luis will take 20 mEq of oral potassium BID if no diarrhea. He will increase to 20 mEq TID if he starts having diarrhea. Celine Vazquez, DEVELOPMENT DIRECTOR LAUNDRY CLERK and pt all in agreement of the plan. Support offered.
[2024-02-25 13:57] LABS: Basophils Percent Auto 0.7 % (0.0-3.0); Eosinophils Percent Auto 3.9 % (0.0-7.0); Hematocrit 40.3 % (37.0-53.0); Hemoglobin* 12.7 gm/dL (13.5-17.5); Lymphocytes Percent Auto 14.5 % (20-44); Mean Corpuscular HGB Conc 32 gm/dL (32-36); Mean Corpuscular Hemoglobin 28 pg (26-34); Mean Corpuscular Volume 88 fL (80-100); Monocytes Percent Auto 14.5 % (0.0-11.0); Neutrophils Percent Auto 66.4 % (42.0-72.0); Platelet Count* 110 K/uL (140-440); RDW Coefficient of Variation % 15.8 % (11.5-15.5); Red Blood Count 4.57 m/uL (4.30-5.90)
[2024-02-25 14:00] LABS: Slide Review Reflex No
[2024-02-25 14:11] LABS: Albumin* 3.3 g/dL (3.3-5.0); Chloride* 103 mmol/L (96-114)
[2024-02-25 14:12] LABS: Potassium* 3.3 mmol/L (3.6-5.1); Sodium* 134 mmol/L (135-149)
[2024-02-25 14:13] LABS: Magnesium* 1.6 mg/dL (1.5-2.6)
[2024-02-25 14:14] LABS: Alanine Aminotransferase* 293 U/L (4-50); Alkaline Phosphatase* 718 U/L (40-150); Anion Gap 5 mEq/L (7-15); Aspartate Amino Transferase* 183 U/L (12-35); Bilirubin Total* 2.9 mg/dL (0.1-1.5); Blood Urea Nitrogen* 5 mg/dL (5-24); Carbon Dioxide* 26 mmol/L (20-32); Creatinine* 0.5 mg/dL (0.5-1.5); Est. Creatinine Clearance* 198.71; Estimated Glomerular Filt Rate 128 ml/min; Glucose* 109 mg/dL (60-115); Total Protein* 5.9 g/dL (6.0-8.3)
[2024-02-25 14:15] LABS: Calcium* 8.9 mg/dL (8.4-10.6)
[2024-02-26] MEDS: SODIUM CHLORIDE 0.9 % (FLUSH) 10 ML SYRINGE IVF (15:10)
[2024-03-01 10:06] LABS: Basophils Percent Auto 0.9 % (0.0-3.0); Hematocrit 42.1 % (37.0-53.0); Hemoglobin* 13.1 gm/dL (13.5-17.5); Lymphocytes Percent Auto 9.8 % (20-44); Mean Corpuscular HGB Conc 31 gm/dL (32-36); Mean Corpuscular Hemoglobin 28 pg (26-34); Mean Corpuscular Volume 88 fL (80-100); Monocytes Percent Auto 11.3 % (0.0-11.0); Platelet Count* 95 K/uL (140-440); RDW Coefficient of Variation % 15.7 % (11.5-15.5); Red Blood Count 4.76 m/uL (4.30-5.90); White Blood Count* 3.46 K/uL (4.50-11.00)
[2024-03-01] MEDS: SODIUM CHLORIDE 0.9 % (FLUSH) 10 ML SYRINGE IVF (10:07)
[2024-03-01] MEDS: HEPARIN 500 UNIT/5 ML SYRINGE IVF (10:08)
--- NOTE | 2024-03-01 10:08 | ONC.NURNOTE ---
Liquid biopsy obtained via port. Scheduled cotton picker with [id number] and sample brought to loading dock. Tracking number [id number]
[2024-03-01 10:20] LABS: Slide Review Reflex No
[2024-03-01 10:21] LABS: Albumin* 3.5 g/dL (3.3-5.0); Chloride* 104 mmol/L (96-114)
[2024-03-01 10:22] LABS: Potassium* 3.6 mmol/L (3.6-5.1); Sodium* 133 mmol/L (135-149)
[2024-03-01 10:24] LABS: Alkaline Phosphatase* 881 U/L (40-150); Anion Gap 4 mEq/L (7-15); Aspartate Amino Transferase* 271 U/L (12-35); Bilirubin Total* 3.5 mg/dL (0.1-1.5); Blood Urea Nitrogen* 7 mg/dL (5-24); Carbon Dioxide* 25 mmol/L (20-32); Creatinine* 0.5 mg/dL (0.5-1.5); Est. Creatinine Clearance* 198.71; Estimated Glomerular Filt Rate 128 ml/min; Total Protein* 6.2 g/dL (6.0-8.3)
[2024-03-01 10:25] LABS: Alanine Aminotransferase* 290 U/L (4-50); Calcium* 8.8 mg/dL (8.4-10.6); Glucose* 172 mg/dL (60-115)
[2024-03-01 12:03] LABS: Albumin* 3.3 g/dL (3.3-5.0)
[2024-03-01 12:06] LABS: Alkaline Phosphatase* 883 U/L (40-150); Aspartate Amino Transferase* 275 U/L (12-35); Bilirubin Direct* 2.1 mg/dL (0.0-0.5); Bilirubin Total* 3.4 mg/dL (0.1-1.5); Total Protein* 5.7 g/dL (6.0-8.3)
[2024-03-01 12:07] LABS: Alanine Aminotransferase* 296 U/L (4-50)
--- NOTE | 2024-03-01 13:48 | ONC.NURNOTE ---
Addendum entered by Sophia Barrera RN 03/03/24 09:11: Patient called this morning at 0830 stating that he just received a phone call from [place] stating that they cannot do the procedure because they do not have a note from a provider in [place] or imaging and labs. Chief Vendor Quality asked Radiology to push images again and all information (MD note, MR note, and last labs) faxed to [phone]. They note that they have not been able to get ahold of [facility] oncologist, they were informed that she is out of state for conference, but can call Dr. Alegria who was made aware of situation on Friday. They did contact him and he notes that he does not have any updated information either, therefore they will not perform the procedure. Patient is still vomiting regularly, so was instructed to go to ER in [place]. Nursing to watch situation. Original Note: Patient's labs were rechecked and further elevated, chemo to be on hold tomorrow. Oncologist ordered ERCP to be done SARAH, this was ordered through [place]. Chief Vendor Quality called [facility] radiology to have images pushed to [place], this was completed. Chief Vendor Quality then called patient to let him know that chemo is on hold and that he needs an ERCP. In the meantime, patient's primary medical oncologist was notified of this by our local oncologist. Patient notes that he is vomiting after each meal. [facility] was called and patient was scheduled for 03/03/2024 at 0900. Patient called with this information, to arrive at [address] Patient is aware that if he continues to vomit or has an increase in pain that he should go to the ER in [place]. Patient is aware and understanding of plan.
[2024-03-11 11:47] LABS: Basophils Absolute Auto 0.03 K/uL (0.00-0.30); Basophils Percent Auto 0.4 % (0.0-3.0); Eosinophils Absolute Auto 0.16 K/uL (0.00-0.50); Eosinophils Percent Auto 2.1 % (0.0-7.0); Hematocrit 43.9 % (37.0-53.0); Immature Granulocytes Abs Auto 0.01 K/uL (0.00-0.30); Immature Granulocytes Pct Auto 0.1 %; Lymphocytes Percent Auto 8.2 % (20-44); Mean Corpuscular HGB Conc 32 gm/dL (32-36); Mean Corpuscular Hemoglobin 27 pg (26-34); Mean Corpuscular Volume 86 fL (80-100); Monocytes Percent Auto 14.2 % (0.0-11.0); Platelet Count* 88 K/uL (140-440); RDW Coefficient of Variation % 15.4 % (11.5-15.5); Red Blood Count 5.13 m/uL (4.30-5.90); White Blood Count* 7.45 K/uL (4.50-11.00)
[2024-03-11 11:48] LABS: Slide Review Reflex No
[2024-03-11 11:55] LABS: Albumin* 3.6 g/dL (3.3-5.0); Chloride* 100 mmol/L (96-114); Potassium* 3.6 mmol/L (3.6-5.1); Sodium* 133 mmol/L (135-149)
[2024-03-11 11:57] LABS: Creatinine* 0.4 mg/dL (0.5-1.5); Est. Creatinine Clearance* 248.39; Estimated Glomerular Filt Rate 137 ml/min
[2024-03-11 11:58] LABS: Alanine Aminotransferase* 234 U/L (4-50); Alkaline Phosphatase* 787 U/L (40-150); Anion Gap 6 mEq/L (7-15); Aspartate Amino Transferase* 162 U/L (12-35); Bilirubin Total* 2.4 mg/dL (0.1-1.5); Blood Urea Nitrogen* 8 mg/dL (5-24); Carbon Dioxide* 27 mmol/L (20-32); Glucose* 96 mg/dL (60-115); Total Protein* 6.2 g/dL (6.0-8.3)
[2024-03-11] MEDS: SODIUM CHLORIDE 0.9 % (FLUSH) 10 ML SYRINGE IVF ×4 (12:00→13:47)
[2024-03-11] MEDS: HYDROmorphone 0.5 mg/0.5 ml inj 1 MG IVP ×2 (12:25→13:10)
[2024-03-11 12:42] LABS: Amylase* 67 U/L (18-89); Lipase* 66 U/L (23-300)
[2024-03-11] MEDS: HEPARIN 500 UNIT/5 ML SYRINGE IVF (13:47)
--- NOTE | 2024-03-11 13:49 | PC.NURSE ---
Pt present at [facility] for labs and MD visit. Pain uncontrolled. MD ordered Dilaudid 1 mg IV MR x 1 if pain > 7. RN gave both doses per pain assessment guidelines. Pt then felt pain was manageable and planned to get back on his oral pain medication schedule at home. Of note, pt is due to see Palliative Care in [place] on Friday to discuss pain management. Pt is due for treatment on Friday03/16/2024. He would like to discuss this with his and will call with his decision. Will get treatment parameters with regards to plt and LFT's and guidance as to whether or not to repeat labs on Friday. Pt will have scans and see [place] team in ~2 weeks. Supportive listening and care provided.
--- NOTE | 2024-03-16 12:15 | ONC.NURNOTE ---
Patient is working with palliative care in [place] for pain management and ascities. Portal notes appointment with Dr. Alegria following scans on 03/24/2024. Note put into workload for nursing to watch for this note to determine follow up needed in [place].
--- NOTE | 2024-03-29 12:09 | ONC.NURNOTE ---
Received phone call from patient and spouse today to question the plan for the patient. He is currently getting routine taps from abdomen, he discussed a pleurex cath last week with [facility] and it was determined to be an infection risk so this is not being done. Patient was told that it has been determined that [facility] will work with the patient for cycle one of the new oral medication, then will transfer to Dr. Neff to manage starting 04/13/2024. Patient asked about getting tapped her in [place], policy writer did note that this is something that can be done here, but if he has a system that works to get in for these timely it was recommended that he stay in [place] for now. He was told that this is something that we can discuss during his appointment the end of the month.
--- NOTE | 2024-03-30 13:21 | ONC.NURNOTE ---
Contact with patient regarding Stivarga: [facility] has ordered the medication- Luis unsure the Specialty Pharmacy used, it is not [place]- He is set up for drug education tomorrow at [facility]
[2024-04-13 08:43] LABS: Basophils Absolute Auto 0.02 K/uL (0.00-0.30); Basophils Percent Auto 0.2 % (0.0-3.0); Eosinophils Absolute Auto 0.27 K/uL (0.00-0.50); Eosinophils Percent Auto 2.7 % (0.0-7.0); Hematocrit 42.7 % (37.0-53.0); Hemoglobin* 14.2 gm/dL (13.5-17.5); Immature Granulocytes Abs Auto 0.14 K/uL (0.00-0.30); Immature Granulocytes Pct Auto 1.4 %; Lymphocytes Percent Auto 5.3 % (20-44); Mean Corpuscular HGB Conc 33 gm/dL (32-36); Mean Corpuscular Hemoglobin 26 pg (26-34); Mean Corpuscular Volume 78 fL (80-100); Monocytes Percent Auto 8.2 % (0.0-11.0); Neutrophils Percent Auto 82.2 % (42.0-72.0); Platelet Count* 89 K/uL (140-440); RDW Coefficient of Variation % 14.5 % (11.5-15.5); Red Blood Count 5.46 m/uL (4.30-5.90); White Blood Count* 9.84 K/uL (4.50-11.00)
[2024-04-13 08:46] LABS: Slide Review Reflex No
[2024-04-13 08:55] LABS: Chloride* 97 mmol/L (96-114)
[2024-04-13 08:56] LABS: Albumin* 3.2 g/dL (3.3-5.0); Sodium* 129 mmol/L (135-149)
[2024-04-13 08:58] LABS: Anion Gap 6 mEq/L (7-15); Aspartate Amino Transferase* 105 U/L (12-35); Bilirubin Total* 2.3 mg/dL (0.1-1.5); Carbon Dioxide* 26 mmol/L (20-32); Creatinine* 0.4 mg/dL (0.5-1.5); Est. Creatinine Clearance* 237.83; Estimated Glomerular Filt Rate 137 ml/min
[2024-04-13 08:59] LABS: Alanine Aminotransferase* 78 U/L (4-50); Alkaline Phosphatase* 801 U/L (40-150); Blood Urea Nitrogen* 8 mg/dL (5-24); Calcium* 8.2 mg/dL (8.4-10.6); Glucose* 142 mg/dL (60-115); Total Protein* 6.3 g/dL (6.0-8.3)
[2024-04-13] MEDS: SODIUM CHLORIDE 0.9 % (FLUSH) 10 ML SYRINGE IVF (10:23)
[2024-04-13] MEDS: HEPARIN 500 UNIT/5 ML SYRINGE IVF (10:23)
--- NOTE | 2024-04-14 12:42 | ONC.NURNOTE ---
RX for Stivarga eRX to [facility] by Dr Neff
--- NOTE | 2024-04-20 13:58 | ONC.NURNOTE ---
Addendum entered by Sophia Barrera RN 04/21/24 12:20: Dr. Neff put the order for chest xray in. Service Operations Manager called patient to let him know and he notes that he is currently in the [place] ER and they will do it there. Original Note: Patient called office stating that his oncology provider in [place] is recommending a chest xray. Service Operations Manager contacted [facility] to have them send the order and they stated that they do not order imaging at outside facilities. Service Operations Manager asked about who is addressing results, and they said that results of imaging can be pushed to them. Discussed with WORKERS COMPENSATION ADMINISTRATOR and it was decided that Dr. Neff can decide tomorrow when in office if she is comfortable ordering this without seeing patient. Patient was called and given the following options: Request chest xray be done in [place] when there on Friday for paracentesis Dr. Neff to discuss comfort in ordering tomorrow afternoon. Go to ER to be assessed if urgent. Patient does not feel that this is urgent. He will message [place] about Friday and if Dr. Neff is willing to order tomorrow he will cancel.
[2024-04-29 14:56] VITALS: BP 121/84; PULSE 130; RESP 16; TEMP 36.1; O2SAT 95
[2024-04-29] MEDS: SODIUM CHLORIDE 0.9 % (FLUSH) 10 ML SYRINGE IVF (15:18)
[2024-04-29] MEDS: DAPTOmycin 50 MG/ML inj 447.5 MG IVP (15:18)
[2024-04-29] MEDS: 0.9 % SODIUM CHLORIDE 250 ml IV (15:18)
[2024-04-30 13:47] VITALS: BP 139/98; PULSE 135; RESP 8; TEMP 36.8; O2SAT 93
[2024-04-30] MEDS: SODIUM CHLORIDE 0.9 % (FLUSH) 10 ML SYRINGE IVF (13:59)
[2024-04-30] MEDS: DAPTOmycin 50 MG/ML inj 447.5 MG IVP (13:59)
--- NOTE | 2024-04-30 14:56 | ONC.NURNOTE ---
Pt here today via wheelchair with 2 friends. Significant condition change between infusion appt yesterday and today. Pt is responsive with verbal cues otherwise lethargic, eyes half open, breathing shallow through mouth ~ 8 RR, with up to 20 second apnea. O2 sats WNL; p 134, BP 130's/90's, afeb. Pt came to appt [place] [id number] this [place], 90 min [address] ride away. Hospice scheduled to come out Friday. Recommended to pt we contact his , noting condition change and anticipation of beginning active dying. Pt agreeable to this. contacted and is coming back from with their son immediately. Friends will take him home and stay with home until she gets there. Contacted Hospice; they will call at 4pm and do intake today. Daptomycin given today; pt will not be returning for more doses. Pharmacy updated.
== END 2024-05-05 23:59 | disposition home or self-care (01) ==
LOC: CCIC 14:30
PROVIDERS: Clinical Nurse Specialist; Internal Medicine Hematology & Oncology; Physician Assistant; PCP Family Medicine; Referring Provider Family Medicine; Visit Provider Internal Medicine Hematology & Oncology
DX: C20 Malignant neoplasm of rectum (principal); R78.81 Bacteremia
CPT/HCPCS: 36415; 36591; 36592; 74183; 80048; 80053; 80076; 82150; 83690; 83735; 85025; 87040; 87505; 96360; 96361; 96365; 96366; 96372; 96374; 96376; 96413; 96415; 96417; 99211; 99214; 99215; G0463; A9575; J0461; J0878; J1100; J1170; J1453; J1642; J2469; J3480; J7030; J7050; J9206; J9303; Q5108